=== PATIENT | female | born 1950 | race Caucasian/White ===

== ENCOUNTER 2020-06-07 17:22 | Outpatient (REF) | payer MEDICARE, OTHER, SELFPAY ==
[2020-06-07 17:55] LABS: Glucose Urine UA >=1000 MG/DL (NEG); Leukocyte Esterase Urine NEG (NEG); Nitrite Urine NEG (NEG); Urine Blood NEG (NEG); Urine Ketones NEG (NEG); Urine Protein NEG (NEG-TRACE)
[2020-06-07 18:00] LABS: Appearance Urine CLEAR; Color Urine YELLOW
[2020-06-07 18:16] LABS: Bacteria Urine TRACE /LPF; RBC Urine 0 /HPF (0); Squamous Epithelial Cell Urine 2+ /LPF; WBC Urine 0-2 /HPF (0-4)
== END 2020-06-07 17:23 | disposition home or self-care (01) ==
LOC: HO.LNP 17:22
PROVIDERS: Visit Provider Hospitalist
DX: N39.0 Urinary tract infection, site not specified (principal)
CPT/HCPCS: 81001

== ENCOUNTER → 2020-06-10 13:41 | Outpatient (BNVA) | payer MEDICARE, OTHER, SELFPAY | PROVIDERS: PCP Internal Medicine; Referring Provider Internal Medicine; Visit Provider Internal Medicine | DX: J44.9 Chronic obstructive pulmonary disease, unspecified (principal); G47.33 Obstructive sleep apnea (adult) (pediatric); Z79.899 Other long term (current) drug therapy; Z99.89 Dependence on other enabling machines and devices | CPT/HCPCS: 99213 ==

== ENCOUNTER 2020-06-17 08:12 | Outpatient (REF) | payer MEDICARE, OTHER, SELFPAY ==
[2020-06-17 12:19] LABS: INTERNATIONAL NORM RATIO 2.5 (0.9-1.1); Prothrombin Time 29.5 SEC (10.8-13.0)
== END 2020-06-17 08:13 | disposition home or self-care (01) ==
LOC: HO.LHD 08:12
PROVIDERS: Visit Provider Internal Medicine
DX: Z79.01 Long term (current) use of anticoagulants (principal)
CPT/HCPCS: 36415; 85610

== ENCOUNTER 2020-07-01 07:43 | Outpatient (REF) | payer MEDICARE, OTHER, SELFPAY ==
[2020-07-01 11:06] LABS: INTERNATIONAL NORM RATIO 2.8 (0.9-1.1); Prothrombin Time 33.7 SEC (10.8-13.0)
== END 2020-07-01 07:44 | disposition home or self-care (01) ==
LOC: HO.LHD 07:43
PROVIDERS: Visit Provider Internal Medicine
DX: Z79.01 Long term (current) use of anticoagulants (principal)
CPT/HCPCS: 36415; 85610

== ENCOUNTER → 2020-07-08 08:43 | Outpatient (BNVA) | payer MEDICARE, OTHER, SELFPAY | PROVIDERS: PCP Internal Medicine; Referring Provider Internal Medicine; Visit Provider Internal Medicine Endocrinology, Diabetes & Metabolism | DX: E11.65 Type 2 diabetes mellitus with hyperglycemia (principal); Z79.4 Long term (current) use of insulin; I10 Essential (primary) hypertension; E78.5 Hyperlipidemia, unspecified; E66.9 Obesity, unspecified | CPT/HCPCS: 99212 ==

== ENCOUNTER 2020-07-15 | Outpatient (REF) | payer MEDICARE, OTHER, SELFPAY ==
[2020-07-15 11:01] LABS: INTERNATIONAL NORM RATIO 2.3 (0.9-1.1); Prothrombin Time 27.5 SEC (10.8-13.0)
== END 2020-07-15 00:01 | disposition home or self-care (01) ==
LOC: HO.LHD
PROVIDERS: Visit Provider Internal Medicine
DX: Z51.81 Encounter for therapeutic drug level monitoring (principal); Z79.01 Long term (current) use of anticoagulants
CPT/HCPCS: 36415; 85610

== ENCOUNTER 2020-08-14 08:49 | Outpatient (REF) | payer MEDICARE, OTHER, SELFPAY ==
[2020-08-14 11:06] LABS: INTERNATIONAL NORM RATIO 1.7 (0.9-1.1); Prothrombin Time 19.9 SEC (10.8-13.0)
== END 2020-08-14 08:50 | disposition home or self-care (01) ==
LOC: HO.LHD 08:49
PROVIDERS: Visit Provider Internal Medicine
DX: Z79.01 Long term (current) use of anticoagulants (principal)
CPT/HCPCS: 36415; 85610

== ENCOUNTER 2020-10-28 09:02 | Outpatient (REF) | payer MEDICARE, SELFPAY ==
[2020-10-28 10:41] LABS: INTERNATIONAL NORM RATIO 1.1 (0.9-1.1); Prothrombin Time 12.7 SEC (10.8-13.0)
== END 2020-10-28 09:03 | disposition home or self-care (01) ==
LOC: HO.LHD 09:02
PROVIDERS: Visit Provider Internal Medicine
DX: Z79.01 Long term (current) use of anticoagulants (principal)
CPT/HCPCS: 36415; 85610

== ENCOUNTER 2020-11-05 05:53 | Outpatient (REF) | payer MEDICARE, MEDICAID, SELFPAY ==
[2020-11-05 11:21] LABS: Prothrombin Time 11.8 SEC (10.8-13.0)
== END 2020-11-05 05:54 | disposition home or self-care (01) ==
LOC: HO.LHD 05:53
PROVIDERS: Visit Provider Internal Medicine
DX: Z86.711 Personal history of pulmonary embolism (principal); Z51.81 Encounter for therapeutic drug level monitoring; Z79.01 Long term (current) use of anticoagulants
CPT/HCPCS: 36415; 85610

== ENCOUNTER 2020-11-08 06:27 | Outpatient (REF) | payer MEDICARE, SELFPAY ==
[2020-11-08 12:58] LABS: INTERNATIONAL NORM RATIO 1.4 (0.9-1.1); Prothrombin Time 16.3 SEC (10.8-13.0)
== END 2020-11-08 06:28 | disposition home or self-care (01) ==
LOC: HO.LHD 06:27
PROVIDERS: Visit Provider Internal Medicine
DX: Z79.01 Long term (current) use of anticoagulants (principal)
CPT/HCPCS: 36415; 85610

== ENCOUNTER 2020-11-15 07:54 | Outpatient (REF) | payer MEDICARE, OTHER, SELFPAY ==
[2020-11-15 10:57] LABS: INTERNATIONAL NORM RATIO 2.7 (0.9-1.1); Prothrombin Time 32.9 SEC (10.8-13.0)
== END 2020-11-15 07:55 | disposition home or self-care (01) ==
LOC: HO.LHD 07:54
PROVIDERS: Visit Provider Internal Medicine
DX: Z79.01 Long term (current) use of anticoagulants (principal)
CPT/HCPCS: 36415; 85610

== ENCOUNTER 2020-11-26 11:40 | Emergency (ER) | payer BC, MEDICAID, SELFPAY ==
--- NOTE | ~2020-11-26 | CT_ITS ---
EXAMINATION: CT ABDOMEN AND PELVIS WITH CONTRAST CLINICAL INFORMATION: Right-sided on abdominal pain. COMPARISON: CT abdomen and pelvis with contrast 12/13/2019 TECHNIQUE: Multidetector volumetric images were obtained from the superior aspect of the liver through the pubic symphysis following administration 85 mL of Omnipaque 350 intravenous contrast. Sagittal and coronal reformatted images were obtained on the technologist's workstation. Oral contrast: No This CT examination was performed using dose optimization techniques as appropriate, variously including the following: *Automated exposure control *Adjustment of mA and/or kV according to patient size (this includes techniques or standardized protocols for targeted exams where dose is matched to indication/reason for exam; i.e. extremities or head) *Use of iterative reconstruction technique DLP: 862 mGy-cm FINDINGS: LUNG BASES: No airspace consolidation or effusion. LIVER, GALLBLADDER, AND BILIARY TREE: Liver is normal in size and smooth in contour and uniform in attenuation. There is no intrahepatic ductal dilatation. Small hypodensity posterior left lobe adjacent to christina hepatis noted on prior study not demonstrated on current exam. There is a punctate probable cyst posterior right lobe series 3 image 24, stable. Prior cholecystectomy. Common duct stable at 1.1 cm. No common duct calculus. PANCREAS: Pancreas is stable in size, contour, and attenuation. Minor decreased attenuation anterior head and neck unchanged. No peripancreatic inflammatory changes. No ductal distention. No retroperitoneal effusion. SPLEEN: Unremarkable. ADRENAL GLANDS: Unremarkable. KIDNEYS AND URETERS: The kidneys enhance symmetrically and show no hydronephrosis, hydroureter, or perinephric stranding. No urinary tract calculi. Long axis right kidney is horizontal, similar to prior exam. BLADDER: Unremarkable. GASTROINTESTINAL TRACT: No bowel obstruction or focal inflammatory changes in the bowel or mesentery. The appendix is normal. There are diverticula splenic flexure and left colon without diverticulitis. No ascites or fluid collection. ABDOMINAL WALL: No significant hernia is appreciated. LYMPH NODES: No lymphadenopathy. Small right pericardial node again seen approximately 0.5 cm. VASCULAR: Unremarkable. PELVIC VISCERA: Unremarkable. OSSEOUS STRUCTURES: No acute bony abnormality. CT/CT abdomen pelvis w con IMPRESSION: 1. Prior cholecystectomy. No ductal dilatation. No peripancreatic inflammatory changes. 2. No hydronephrosis, calculi, or perinephric stranding. 3. No bowel obstruction or focal inflammatory changes. Normal appendix.
[2020-11-26 11:45] VITALS: BP 154/80; PULSE 99; RESP 20; TEMP 37.1; O2SAT 98; BMI 37.8
--- NOTE | 2020-11-26 12:47 | ECG_ITS ---
Test Reason : ABDOMINAL PAIN Blood Pressure : / mmHG Vent. Rate : 090 BPM Atrial Rate : 090 BPM P-R Int : 194 ms QRS Dur : 076 ms QT Int : 382 ms P-R-T Axes : 046 040 048 degrees QTc Int : 467 ms Normal sinus rhythm Possible Left atrial enlargement Nonspecific T wave abnormality Abnormal ECG When compared with ECG of 16-MAY-2020 20:01, No significant change was found Referred By: Sheri Rose Electronically Signed By:SCOTTIE MONROY
--- NOTE | 2020-11-26 12:52 | ED.ABDPAIN ---
HPI - Abdominal Pain General Chief Complaint: Abdominal Pain Stated Complaint: abd pain Time Seen by Provider: 11/26/20 12:40 Source: patient Mode of arrival: ambulatory Limitations: no limitations History of Present Illness HPI narrative: 70 yo female with past medical history of pulmonary embolism on Coumadin, obesity, hypertension, high cholesterol, coronary disease, insulin-dependent diabetes, obstructive sleep apnea, COPD here with complaints of right-sided abdominal pain x2 weeks worsened last 24 hours. Worsened with eating. No nausea or vomiting. She does have diarrhea which she tells me is chronic. Non-bloody or dark in appearance. No fevers or chills. She has frequent urination which she tells me is chronic and is not changed. Patient tells me that she has chronic shortness of breath and cough secondary to COPD and she does not feel like her symptoms are worsened today. No chest pain. Related Data Home Medications Medication Instructions Recorded Confirmed pantoprazole 40 mg tablet,delayed mg PO 06/01/20 07/08/20 release warfarin 5 mg tablet 5 mg PO DAILY 06/01/20 07/08/20 Previous Rx's Medication Instructions Recorded amoxicillin 875 mg tablet 875 mg PO BID #14 tab 06/07/20 citalopram 40 mg tablet 40 mg PO DAILY #90 tab 06/08/20 pen needle, diabetic 32 gauge x 5 ea MISCELLANEOUS DAILY #200 ea 06/10/20 amitriptyline 10 mg tablet 10 mg PO BEDTIME #90 tab 07/25/20 cholecalciferol (vitamin D3) 50 50 mcg PO DAILY #30 cap 07/25/20 mcg (2,000 unit) capsule insulin lispro 200 unit/mL (3 mL) 24 unit SUBCUT TID 90 Days #45 ml 08/06/20 subcutaneous pen atorvastatin 40 mg tablet 40 mg PO BEDTIME 90 Days #90 tab 08/15/20 buspirone 5 mg tablet 5 mg PO DAILY #30 tab 09/13/20 diltiazem HCl 240 mg 240 mg PO DAILY #90 cap 09/13/20 capsule,extended release 24 hr insulin glargine 100 unit/mL (3 40 unit SUBCUT DAILY #30 ml 09/13/20 mL) subcutaneous pen pantoprazole 40 mg tablet,delayed 40 mg PO BID #180 tab 09/13/20 release warfarin 2 mg tablet 4 mg PO DAILY #60 tab 09/13/20 flash glucose sensor #2 ea 11/13/20 dicyclomine 10 mg PO QID #30 cap 11/26/20 Allergies Allergy/AdvReac Type Severity Reaction Status Date / Time Latex, Natural Rubber Allergy Severe blisters Verified 06/10/20 13:52 Sulfa (Sulfonamide Allergy Mild ITCHING, Verified 11/26/20 11:48 Antibiotics) rash [SULFA (SULFONAMIDE ANTIBIOTICS)] latex [LATEX] Allergy Unknown UNKNOWN Verified 11/26/20 11:48 nystatin Allergy Unknown rash Verified 03/22/20 00:00 isosorbide [From Imdur] AdvReac Unknown HEADACHES, Verified 11/26/20 11:48 headache tizanidine AdvReac Unknown weakness, Verified 03/22/20 00:00 Hellucination Review of Systems Review of Systems Yes all other systems are reviewed and are negative Constitutional: Reports no additional constitutional complaints, Denies body ache(s), Denies chills, Denies fever(s), Denies headache(s) and Denies weakness Eyes: Reports no additional eye complaints and Denies change in vision Reports system reviewed and no additional complaints, except as documented, Denies dizziness, Denies headache(s), Denies nasal congestion, Denies nasal discharge and Denies neck pain Cardiovascular: Reports no additional cardiovascular complaints, Denies chest pain, Denies leg edema and Reports dyspnea (Chronic) Respiratory: Reports no additional respiratory complaints, Reports cough (Chronic) and Reports dyspnea (Chronic) Gastrointestinal: Reports no additional gastrointestinal complaints, Reports abdominal pain, Reports diarrhea, Denies nausea and Denies vomiting Genitourinary: Reports no additional female genitourinary complaints and Denies urinary incontinence Musculoskeletal: Reports no additional musculoskeletal complaints, Denies back pain, Denies arthralgias, Denies joint swelling, Denies neck pain, Denies numbness and Denies tingling Skin/Breast: Reports system reviewed and no additional complaints, except as docu and Denies rash Reports system reviewed and no additional complaints, except as documented, Denies Abnormal speech present, Denies dizziness, Denies headache(s), Denies numbness, Denies tingling and Denies weakness Physical Exam Vital Signs: Vital Signs: Last Vital Signs Temp 99.6 F 11/26/20 16:00 Pulse 113 H 11/26/20 16:00 Resp 18 11/26/20 16:13 BP 120/46 L 11/26/20 16:00 Pulse Ox 100 11/26/20 16:00 Body Mass Index 37.8 Const: General: cooperative, healthy appearing, comfortable and no acute distress Orientation/consciousness: patient oriented x3 Limitations: no limitations HENMT: Head: Yes normal to inspection Ears: hearing grossly normal bilaterally General nose exam: Normal external nose present Face and sinus: Yes normal facial exam Mouth: Normal oral and palatal mucosa present Throat: Yes posterior oropharynx normal Eyes: General: appearance normal, both eyes and all related structures Pupils: Equal, round and reactive pupils present Neck: Neck: Yes normal visual inspection Chest: Chest palpation & inspection: normal inspection of the chest Resp: Other: Speaking short phrases Diminished bases, mild exp wheezing Cardio: Rate: regular rate Rhythm: regular rhythm Peripheral pulses: Peripheral pulses 2+ throughout GI: Inspection: Yes normal to inspection Palpation (GI): Soft to palpation and Tenderness to palpation present (GI) (Right upper and right lower quadrant with guarding but no rebound) Auscultation: normal bowel sounds Back/Spine/Pelvis: Thoracic/Lumbar Spine: thoracic and lumbar spine normal to inspection Skin: General skin exam: no rashes or lesions noted Neuro: General: patient oriented x3, no focal motor deficits and normal sensation to monofilament Cranial nerves: Yes Equal, round and reactive pupils present Cognition (Neuro): normal cognition Speech: No Abnormal speech present Gait exam (Neuro): Normal gait present Motor exam (neuro): 5/5 motor strength present throughout Extrem: General: Yes normal to inspection Course Course Course Narrative: 70-year-old female here with abdominal pain acute on chronic for the last 24 hours with diarrhea. On exam has tenderness in the right upper right lower quadrant with no rebound but does have some guarding. Hemodynamically stable. Mild shortness of breath patient also has baseline secondary to COPD and is not worsened from baseline. Need labs, UA, CT A/P. 1700-labs, urine, CT unremarkable. Patient tells me that she has pain which feels like a squeezing and cramping pain which is intermittent and is normally associated with moving her bowels. She has had diarrhea over the last few weeks 2-5 episodes per day which is NB, non dark. No recent antibiotics or travel or admission or any other C diff risk factors. Patient unable to provide stool sample here in the emergency department. Will trial Bentyl to see if this improves symptoms with discharged to follow-up with primary care. 1815-Mild improvement in symptoms (does still have some abdominal cramping described as squeezing) but over abdomen is soft. tolerating PO at the bedside. ?IBS. D/t change in bowel habits will refer to GI for colonoscopy. Reviewed patient with Dr Savage who concurs with plan of care. Reviewed worrisome signs and symptoms and when to return to the emergency department. Comfortable discharge home. MDM - Abdominal Pain MDM Narrative Medical decision making narrative: Cholecystitis, cholelithiasis, acute appendicitis, gastritis, gerd Medical Records Attestation: I reviewed the patient's medical records. Lab Data Attestation: I reviewed the patient's lab results. Result diagrams: 11/26/20 13:22 11/26/20 13:22 Labs: Lab Results 11/26/20 11/26/20 11/26/20 Range/Units 13:22 13:22 13:22 WBC 10.3 (4.8-10.8) X10*3/uL RBC 5.03 (4.20-5.50) X10*6/uL Hgb 12.4 (12.0-16.0) g/dl Hct 40.6 (37-47) % MCV 80.7 (80-98) fL MCH 24.7 L (27.0-33.0) pg MCHC 30.5 L (31.0-35.0) g/dl RDW 15.7 (11.0-16.0) % Plt Count 316 (160-400) X10*3/uL MPV 9.6 (9.4-12.3) fL Immature Gran % (Auto) 0.4 (0.0-0.4) % Neut % (Auto) 67.6 (45-73) % Lymph % (Auto) 21.2 (20-40) % [place] % (Auto) 5.9 (2-11) % Eos % (Auto) 4.1 H (0-4) % Baso % (Auto) 0.8 (0-2) % Lymph # (Auto) 2.2 (1.2-4.9) X10*3/uL [place] # (Auto) 0.6 (0.1-1.2) X10*3/uL Eos # (Auto) 0.4 (0.0-0.4) X10*3/uL Baso # (Auto) 0.1 (0.0-0.2) X10*3/uL Abs Immat Gran (auto) 0.04 H (0.00-0.03) X10*3/uL Absolute Neuts (auto) 6.9 (2.0-8.3) X10*3/uL Absolute Nucleated RBC 0.000 (0.0-0.012) X10*3/uL Nucleated RBC % (auto) 0.0 (0.0-0.2) /100WBC Hold Blue Top SEE NOTE Sodium 140 (135-145) mmol/L Potassium 4.3 (3.3-5.1) mmol/L Chloride 100 (96-108) mmol/L Carbon Dioxide 26 (22-29) mmol/L Anion Gap 18 (12-20) BUN 16 (9-16) mg/dL Creatinine 0.90 (0.5-1.4) mg/dL Estim Creat Clear Calc 64.9 Estimated GFR > 60 Random Glucose 195 H (60-115) mg/dL Calcium 8.7 (8.4-10.2) mg/dL Magnesium 1.9 (1.6-2.6) mg/dL Total Bilirubin 0.3 (0.0-1.0) mg/dL Direct Bilirubin < 0.2 (0.0-0.5) mg/dL AST 18 (5-31) U/L ALT 19 (0-31) U/L Alkaline Phosphatase 123 H (39-117) U/L Total Protein 7.0 (6.5-8.0) g/dL Albumin 4.0 (3.5-5.0) g/dL Urine Color Urine Appearance Urine pH (5.0-8.0) Ur Specific [place] (1.005-1.025) Urine Protein (NEG-TRACE) MG/DL Urine Glucose (UA) (NEG) MG/DL Urine Ketones (NEG) MG/DL Urine Blood (NEG) Urine Nitrite (NEG) Ur Leukocyte Esterase (NEG) Urine RBC (0) /HPF Urine WBC (0-4) /HPF Ur Squamous Epith Cells /LPF Urine Bacteria /LPF Urine Mucus /LPF 03/23/21 Range/Units 13:22 WBC (4.8-10.8) X10*3/uL RBC (4.20-5.50) X10*6/uL Hgb (12.0-16.0) g/dl Hct (37-47) % MCV (80-98) fL MCH (27.0-33.0) pg MCHC (31.0-35.0) g/dl RDW (11.0-16.0) % Plt Count (160-400) X10*3/uL MPV (9.4-12.3) fL Immature Gran % (Auto) (0.0-0.4) % Neut % (Auto) (45-73) % Lymph % (Auto) (20-40) % [place] % (Auto) (2-11) % Eos % (Auto) (0-4) % Baso % (Auto) (0-2) % Lymph # (Auto) (1.2-4.9) X10*3/uL [place] # (Auto) (0.1-1.2) X10*3/uL Eos # (Auto) (0.0-0.4) X10*3/uL Baso # (Auto) (0.0-0.2) X10*3/uL Abs Immat Gran (auto) (0.00-0.03) X10*3/uL Absolute Neuts (auto) (2.0-8.3) X10*3/uL Absolute Nucleated RBC (0.0-0.012) X10*3/uL Nucleated RBC % (auto) (0.0-0.2) /100WBC Hold Blue Top Sodium (135-145) mmol/L Potassium (3.3-5.1) mmol/L Chloride (96-108) mmol/L Carbon Dioxide (22-29) mmol/L Anion Gap (12-20) BUN (9-16) mg/dL Creatinine (0.5-1.4) mg/dL Estim Creat Clear Calc Estimated GFR Random Glucose (60-115) mg/dL Calcium (8.4-10.2) mg/dL Magnesium (1.6-2.6) mg/dL Total Bilirubin (0.0-1.0) mg/dL Direct Bilirubin (0.0-0.5) mg/dL AST (5-31) U/L ALT (0-31) U/L Alkaline Phosphatase (39-117) U/L Total Protein (6.5-8.0) g/dL Albumin (3.5-5.0) g/dL Urine Color YELLOW Urine Appearance CLEAR Urine pH 5.5 (5.0-8.0) Ur Specific [place] >= 1.030 H (1.005-1.025) Urine Protein 1+ H (NEG-TRACE) MG/DL Urine Glucose (UA) NEG (NEG) MG/DL Urine Ketones NEG (NEG) MG/DL Urine Blood TRACE (NEG) Urine Nitrite NEG (NEG) Ur Leukocyte Esterase NEG (NEG) Urine RBC 0-2 (0) /HPF Urine WBC 0 (0-4) /HPF Ur Squamous Epith Cells 1+ /LPF Urine Bacteria NONE /LPF Urine Mucus 1+ /LPF Imaging Data CT scan - abdomen: Attestation: I personally reviewed and interpreted this imaging study as follows: Radiologist's impression: IMPRESSION: 1. Prior cholecystectomy. No ductal dilatation. No peripancreatic inflammatory changes. 2. No hydronephrosis, calculi, or perinephric stranding. 3. No bowel obstruction or focal inflammatory changes. Normal appendix. Discharge Plan Discharge Clinical Impression: Abdominal pain Qualifiers: Abdominal location: unspecified location Qualified Code(s): R10.9 - Unspecified abdominal pain Patient Disposition: Home, Self-Care Instructions: Abdominal Pain (ED) Additional Instructions: Your lab work, urine testing and CT are all very re-assuring You have been provided with a lab slip to have stool studies done We will refer you to GI for a colonoscopy and/or additional testing. Return for severe abdominal pain, 2 or more vomiting episodes, fever >100.4 Prescriptions: New dicyclomine 10 mg capsule 10 mg PO QID Qty: 30 RF: 0 No Action citalopram 40 mg tablet 40 mg PO DAILY Qty: 90 RF: 3 pen needle, diabetic [Pentips] 32 gauge x 5/32 needle 5 ea miscellaneous DAILY Qty: 200 RF: 11 cholecalciferol (vitamin D3) 50 mcg (2,000 unit) capsule 50 mcg PO DAILY Qty: 30 RF: 5 amitriptyline 10 mg tablet 10 mg PO BEDTIME Qty: 90 RF: 1 insulin lispro 200 unit/mL (3 mL) insulin pen 24 unit subcut TID 90 Days Qty: 45 RF: 1 atorvastatin 40 mg tablet 40 mg PO BEDTIME 90 Days Qty: 90 RF: 1 insulin glargine [Lantus Solostar U-100 Insulin] 100 unit/mL (3 mL) insulin pen 40 unit subcut DAILY Qty: 30 RF: 3 warfarin 2 mg tablet 4 mg PO DAILY Qty: 60 RF: 8 buspirone 5 mg tablet 5 mg PO DAILY Qty: 30 RF: 0 diltiazem HCl 240 mg capsule,extended release 24hr 240 mg PO DAILY Qty: 90 RF: 0 pantoprazole 40 mg tablet,delayed release (DR/EC) 40 mg PO BID Qty: 180 RF: 0 (DME) FreeStyle Kelly 2 Sensor Kit See Rx Instructions .ROUTE .MEDSUPPLY Qty: 2 RF: 2 amoxicillin 875 mg tablet 875 mg PO BID Qty: 14 RF: 0 warfarin 5 mg tablet 5 mg PO DAILY RF: 0 pantoprazole 40 mg tablet,delayed release (DR/EC) PO RF: 0 Referrals: Bernadette Meredith MD [Physician] - 2 days [facility] Past Medical History Attestation statement: The following information was validated with the patient. 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 Social History Social History Smoking Status: Former smoker Tobacco Type: Cigarette Smoked in Last 30 Days: Yes Use of substances other than those prescribed or required for medical reasons: No Advance Directives: Yes Advance Directives Information Provided: Yes Advance Directives on File: No
[2020-11-26 13:29] LABS: MANUAL DIFF FLAG NO
[2020-11-26 13:35] LABS: Basophils Absolute Auto 0.1 X10*3/uL (0.0-0.2); Basophils Percent Auto 0.8 % (0-2); Eosinophils Absolute Auto 0.4 X10*3/uL (0.0-0.4); Eosinophils Percent Auto 4.1 % (0-4); Hematocrit 40.6 % (37-47); Hemoglobin 12.4 g/dl (12.0-16.0); Imm Gran Abs Auto 0.04 X10*3/uL (0.00-0.03); Imm Gran Pct Auto 0.4 % (0.0-0.4); Lymphocytes Absolute Auto 2.2 X10*3/uL (1.2-4.9); Lymphocytes Percent Auto 21.2 % (20-40); Mean Corpuscular HGB Conc 30.5 g/dl (31.0-35.0); Mean Corpuscular Hemoglobin 24.7 pg (27.0-33.0); Mean Corpuscular Volume 80.7 fL (80-98); Mean Platelet Volume 9.6 fL (9.4-12.3); Monocytes Absolute Auto 0.6 X10*3/uL (0.1-1.2); Monocytes Percent Auto 5.9 % (2-11); Neutrophils Absolute Auto 6.9 X10*3/uL (2.0-8.3); Neutrophils Percent Auto 67.6 % (45-73); Platelet Count 316 X10*3/uL (160-400); Red Blood Count 5.03 X10*6/uL (4.20-5.50); Red Cell Distribution Width 15.7 % (11.0-16.0); White Blood Count 10.3 X10*3/uL (4.8-10.8)
--- NOTE | 2020-11-26 13:36 | PC.NURSE ---
20 ga iv established L wrist pt has soft tender abd, reports apin bilat lower abd. abd is nondistended with no discoloration noted. pt rubbing abd with facial grimace. pt is nsr in l;ead 2 slight exp wheezes noted, in n distress.
[2020-11-26 13:48] LABS: Glucose Urine UA NEG (NEG); Leukocyte Esterase Urine NEG (NEG); Nitrite Urine NEG (NEG); PH 5.5 (5.0-8.0); Specific Gravity - Urine >= 1.030 (1.005-1.025); Urine Blood TRACE (NEG); Urine Ketones NEG (NEG); Urine Protein 1+ MG/DL (NEG-TRACE)
[2020-11-26 13:58] LABS: Appearance Urine CLEAR; Color Urine YELLOW
[2020-11-26 14:00] LABS: Alanine Aminotransferase 19 U/L (0-31); Alkaline Phosphatase 123 U/L (39-117); Anion Gap 18 (12-20); Aspartate Amino Transferase 18 U/L (5-31); Bilirubin Direct < 0.2 mg/dL (0.0-0.5); Bilirubin Total 0.3 mg/dL (0.0-1.0); Blood Urea Nitrogen 16 mg/dL (9-16); Calcium 8.7 mg/dL (8.4-10.2); Carbon Dioxide 26 mmol/L (22-29); Chloride 100 mmol/L (96-108); Creatinine Clr Calc Pharmacy 64.9; Estimated Glomerular Filt Rate > 60; Glucose Random 195 mg/dL (60-115); Magnesium 1.9 mg/dL (1.6-2.6); Potassium 4.3 mmol/L (3.3-5.1); Sodium 140 mmol/L (135-145)
[2020-11-26 14:06] LABS: RBC Urine 0-2 /HPF (0); Squamous Epithelial Cell Urine 1+ /LPF; WBC Urine 0 /HPF (0-4)
[2020-11-26 14:07] LABS: Mucus Urine 1+ /LPF
[2020-11-26 14:11] VITALS: BP 170/80; PULSE 88; RESP 16; O2SAT 93
[2020-11-26] MEDS: Morphine Sulfate 4 MG/ML CARTRIDGE IVPUSH ×2 (14:43)
[2020-11-26] MEDS: ondansetron HCL 4 MG/2 ML VIAL IVPUSH (14:44)
[2020-11-26 14:50] VITALS: PULSE 94
[2020-11-26] MEDS: Albuterol/Iprat 2.5/0.5MG 3 ML AMPUL.NEB INHALE (14:50)
[2020-11-26 16:00] VITALS: BP 120/46; PULSE 113; RESP 18; TEMP 37.6; O2SAT 100
[2020-11-26 16:13] VITALS: RESP 18
[2020-11-26] MEDS: HYDROmorphone HCl 0.5 MG/0.5 ML SYRINGE IVPUSH (16:13)
[2020-11-26] MEDS: Dicyclomine HCl 10 MG CAPSULE 20 MG PO (16:55)
== END 2020-11-26 19:06 | disposition home or self-care (01) ==
PROVIDERS: Nurse Practitioner Family; Emergency Provider Emergency Medicine Emergency Medical Services; PCP Internal Medicine
DX: R10.9 Unspecified abdominal pain (principal); E11.9 Type 2 diabetes mellitus without complications; F17.210 Nicotine dependence, cigarettes, uncomplicated; Z79.899 Other long term (current) drug therapy; Z71.6 Tobacco abuse counseling; Z79.01 Long term (current) use of anticoagulants; Z79.4 Long term (current) use of insulin
CPT/HCPCS: 36415; 74177; 80048; 80076; 81001; 83735; 85025; 93005; 94640; 96361; 96374; 96375; 99284; J1170; J2270; J2405; Q9967

== ENCOUNTER 2020-11-29 11:51 | Outpatient (REF) | payer BC, MEDICAID, SELFPAY ==
[2020-11-29 15:21] LABS: CDIFF Ag Negative (Negative); CDiff Toxin Negative (Negative)
[2020-11-29 15:22] LABS: CDIFF Internal ctrl Dots and bkg OK (V)
== END 2020-11-29 11:52 | disposition home or self-care (01) ==
LOC: HO.HMGCLNP 11:51
PROVIDERS: Visit Provider Nurse Practitioner Family
DX: R19.5 Other fecal abnormalities (principal)
CPT/HCPCS: 87045; 87046; 87324; 87449

== ENCOUNTER 2020-12-02 01:06 | Outpatient (REF) | payer BC, OTHER, SELFPAY | END 2020-12-02 01:07 | disposition home or self-care (01) | LOC: HO.LHD 01:06 | PROVIDERS: Visit Provider Internal Medicine | DX: Z13.89 Encounter for screening for other disorder (principal) ==

== ENCOUNTER → 2020-12-09 13:28 | Outpatient (BNVA) | payer BC, OTHER, SELFPAY | PROVIDERS: Visit Provider Internal Medicine ==

== ENCOUNTER 2020-12-23 08:38 | Outpatient (REF) | payer MEDICARE, MEDICAID, SELFPAY | END 2020-12-23 08:39 | disposition home or self-care (01) | LOC: HO.LHD 08:38 | PROVIDERS: Visit Provider Internal Medicine | DX: Z13.89 Encounter for screening for other disorder (principal) ==

== ENCOUNTER 2021-01-09 16:32 | Emergency (ER) | payer MEDICARE, MEDICAID, SELFPAY ==
--- NOTE | 2021-01-09 | ECG_ITS ---
Test Reason : CP Blood Pressure : / mmHG Vent. Rate : 087 BPM Atrial Rate : 087 BPM P-R Int : 184 ms QRS Dur : 084 ms QT Int : 438 ms P-R-T Axes : 047 040 064 degrees QTc Int : 527 ms Normal sinus rhythm Possible Left atrial enlargement Nonspecific T wave abnormality Prolonged QT Abnormal ECG When compared with ECG of 09-JAN-2021 17:38, Premature supraventricular complexes are now Present Nonspecific T wave abnormality, worse in Anterior leads QT has lengthened Referred By: Candelario Savage Electronically Signed By:SCOTTIE MONROY
[2021-01-09 16:44] VITALS: BP 144/65; PULSE 94; RESP 16; TEMP 36.8; O2SAT 98
[2021-01-09 16:55] LABS: MANUAL DIFF FLAG NO
[2021-01-09 16:56] LABS: Basophils Absolute Auto 0.1 X10*3/uL (0.0-0.2); Basophils Percent Auto 0.8 % (0-2); Eosinophils Absolute Auto 0.2 X10*3/uL (0.0-0.4); Hematocrit 40.2 % (37-47); Hemoglobin 12.9 g/dl (12.0-16.0); Imm Gran Abs Auto 0.05 X10*3/uL (0.00-0.03); Imm Gran Pct Auto 0.4 % (0.0-0.4); Lymphocytes Absolute Auto 2.6 X10*3/uL (1.2-4.9); Lymphocytes Percent Auto 22.7 % (20-40); Mean Corpuscular HGB Conc 32.1 g/dl (31.0-35.0); Mean Corpuscular Hemoglobin 25.9 pg (27.0-33.0); Mean Corpuscular Volume 80.7 fL (80-98); Mean Platelet Volume 10.1 fL (9.4-12.3); Monocytes Absolute Auto 0.8 X10*3/uL (0.1-1.2); Monocytes Percent Auto 7.3 % (2-11); Neutrophils Absolute Auto 7.6 X10*3/uL (2.0-8.3); Neutrophils Percent Auto 66.8 % (45-73); Platelet Count 290 X10*3/uL (160-400); Red Blood Count 4.98 X10*6/uL (4.20-5.50); Red Cell Distribution Width 15.2 % (11.0-16.0); White Blood Count 11.4 X10*3/uL (4.8-10.8)
[2021-01-09 17:17] LABS: Anion Gap 18 (12-20); Blood Urea Nitrogen 28 mg/dL (9-16); Calcium 8.8 mg/dL (8.4-10.2); Carbon Dioxide 28 mmol/L (22-29); Chloride 89 mmol/L (96-108); Creatinine Clr Calc Pharmacy 6.3; Estimated Glomerular Filt Rate 40; Glucose Random 552 mg/dL (60-115); Potassium 3.7 mmol/L (3.3-5.1); Sodium 131 mmol/L (135-145)
--- NOTE | 2021-01-09 17:27 | ECG_ITS ---
Test Reason : CHEST PRESSURE Blood Pressure : / mmHG Vent. Rate : 090 BPM Atrial Rate : 090 BPM P-R Int : 180 ms QRS Dur : 084 ms QT Int : 368 ms P-R-T Axes : 046 040 054 degrees QTc Int : 450 ms Normal sinus rhythm Possible Left atrial enlargement Nonspecific T wave abnormality Abnormal ECG When compared with ECG of 26-NOV-2020 13:23, No significant change was found Referred By: Candelario Savage Electronically Signed By:SCTOTIE MONROY
--- NOTE | 2021-01-09 17:32 | ED_ITS ---
HPI - General Adult General Chief complaint: General Medical Stated complaint: Hyperglycemia Time Seen by Provider: 01/09/21 17:32 Source: patient Mode of arrival: ambulatory Limitations: no limitations History of Present Illness HPI narrative: Patient noticed that her blood sugar is high for 1 month in the range of 300, no fever or chills no urinary symptoms ast few weeks feels thirsty urinating a lot feeling weak. Denies any change in the dosage of insulin or other medications Patient is fairly compliant with medication and food feels dizzy sometimes when she walks no chest pain or shortness of breath Related Data Home Medications Medication Instructions Recorded Confirmed warfarin 5 mg tablet 5 mg PO DAILY 06/01/20 12/31/20 albuterol sulfate 90 mcg/actuation 0 mcg INHALATION 12/09/20 12/31/20 aerosol inhaler budesonide-formoterol HFA 160 2 puff PO BID 12/09/20 12/31/20 mcg-4.5 mcg/actuation aerosol inhaler guaifenesin 100 mg/5 mL oral liquid 100 mg PO Q4H PRN 12/09/20 12/31/20 metoprolol tartrate 50 mg tablet 50 mg PO BID 12/25/20 12/31/20 acetaminophen PO DAILY PRN 12/31/20 12/31/20 Previous Rx's Medication Instructions Recorded citalopram 40 mg tablet 40 mg PO DAILY #90 tab 06/08/20 pen needle, diabetic 32 gauge x 5 ea MISCELLANEOUS DAILY #200 ea 06/10/20 amitriptyline 10 mg tablet 10 mg PO BEDTIME #90 tab 07/25/20 cholecalciferol (vitamin D3) 50 50 mcg PO DAILY #30 cap 07/25/20 mcg (2,000 unit) capsule insulin lispro 200 unit/mL (3 mL) 24 unit SUBCUT TID 90 Days #45 ml 08/06/20 subcutaneous pen atorvastatin 40 mg tablet 40 mg PO BEDTIME 90 Days #90 tab 08/15/20 diltiazem HCl 240 mg 240 mg PO DAILY #90 cap 09/13/20 capsule,extended release 24 hr insulin glargine 100 unit/mL (3 40 unit SUBCUT DAILY #30 ml 09/13/20 mL) subcutaneous pen pantoprazole 40 mg tablet,delayed 40 mg PO BID #180 tab 09/13/20 release warfarin 2 mg tablet 4 mg PO DAILY #60 tab 09/13/20 flash glucose sensor #2 ea 11/13/20 dicyclomine 10 mg PO QID #30 cap 11/26/20 buspirone 5 mg tablet 5 mg PO DAILY #30 tab 12/16/20 chlorthalidone 25 mg tablet 25 mg PO .q am 90 Days #90 tab 12/31/20 Allergies Allergy/AdvReac Type Severity Reaction Status Date / Time Latex, Natural Rubber Allergy Severe blisters Verified 12/31/20 14:12 Sulfa (Sulfonamide Allergy Mild ITCHING, Verified 12/31/20 14:12 Antibiotics) rash [SULFA (SULFONAMIDE ANTIBIOTICS)] nystatin Allergy Unknown rash Verified 12/31/20 14:12 isosorbide [From Imdur] AdvReac Unknown HEADACHES, Verified 12/31/20 14:12 headache tizanidine AdvReac Unknown weakness, Verified 12/31/20 14:12 Hellucination Review of Systems Review of Systems: Constitutional : No Weight loss, No Fever, No Chills ENT/Mouth : No sore throat, No Rhinorrhea Eyes: No Eye Pain, No Swelling Cardiovascular : No Chest Pain, no palpitations Respiratory : No Cough, No Sputum, no shortness of breath Gastrointestinal : no Nausea, No Vomiting, No Diarrhea, No abdominal Pain, no black stools Genitourinary : No Dysuria, No Urinary Frequency Musculoskeletal : No joint pain, No Myalgias, No Joint Swelling Skin : No Skin Lesions, No rash Neuro : No Weakness, No Numbness, +_ Dizziness, No Headache Psych : No Anxiety/Panic, No Depression Heme/Lymph: No Bruising, No Lymphadenopathy Endocrine : No Polyuria, No Polydipsia All other systems reviewed and are negative [facility] Past Medical History Medical History CAD (coronary artery disease) COPD (chronic obstructive pulmonary disease) Diabetes type 2, uncontrolled Dyslipidemia 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 Social History Social History Smoking Status: Former smoker Tobacco Type: Cigarette Use of substances other than those prescribed or required for medical reasons: No Advance Directives: Yes Advance Directives Information Provided: No Advance Directives on File: No Physical Exam Vital Signs: Vital Signs: Last Vital Signs Temp 98.2 F 01/09/21 16:44 Pulse 88 01/09/21 20:15 Resp 15 01/09/21 20:15 BP 161/55 H 01/09/21 20:15 Pulse Ox 100 01/09/21 20:15 Body Mass Index 3.9 Appearance: Alert. Oriented X3. No acute distress. Eyes: PERRLA, No Nystagmus ENT: Pharynx normal. Oral Mucosa moist Neck: Normal inspection. Neck supple. CVS: Normal heart rate and rhythm. Pulses normal. Respiratory: No respiratory distress. Equal air entry bilateral, no wheezing/rales/rhonchi Abdomen: Soft and nontender. Bowel sounds are present, no mass palpable, no CVA tenderness Skin: Skin warm and dry. Normal skin color. Normal skin turgor. Extremities: No lower extremity edema. No calf tenderness Neuro: Oriented X 3. No motor deficit. No sensory deficit.No cerebellar signs , cranial nerves II-XII intact Medical Decision Making MDM Narrative Medical decision making narrative: Patient has hyperglycemia type 2 diabetes will increase the dose of Lantus insulin to 50 units and advisedcontinue Humalog sliding scale before meals patient received 2 L of IV fluids and repeat blood sugar was 198. Lab Data Lab results reviewed: Yes I reviewed the patient's lab results. Result diagrams: 01/09/21 16:51 01/09/21 16:51 Labs: Lab Results 01/09/21 01/09/21 01/09/21 Range/Units 16:46 16:51 16:51 WBC 11.4 H (4.8-10.8) X10*3/uL RBC 4.98 (4.20-5.50) X10*6/uL Hgb 12.9 (12.0-16.0) g/dl Hct 40.2 (37-47) % MCV 80.7 (80-98) fL MCH 25.9 L (27.0-33.0) pg MCHC 32.1 (31.0-35.0) g/dl RDW 15.2 (11.0-16.0) % Plt Count 290 (160-400) X10*3/uL MPV 10.1 (9.4-12.3) fL Immature Gran % (Auto) 0.4 (0.0-0.4) % Neut % (Auto) 66.8 (45-73) % Lymph % (Auto) 22.7 (20-40) % [place] % (Auto) 7.3 (2-11) % Eos % (Auto) 2.0 (0-4) % Baso % (Auto) 0.8 (0-2) % Lymph # (Auto) 2.6 (1.2-4.9) X10*3/uL [place] # (Auto) 0.8 (0.1-1.2) X10*3/uL Eos # (Auto) 0.2 (0.0-0.4) X10*3/uL Baso # (Auto) 0.1 (0.0-0.2) X10*3/uL Abs Immat Gran (auto) 0.05 H (0.00-0.03) X10*3/uL Absolute Neuts (auto) 7.6 (2.0-8.3) X10*3/uL Absolute Nucleated RBC 0.000 (0.0-0.012) X10*3/uL Nucleated RBC % (auto) 0.0 (0.0-0.2) /100WBC Sodium 131 L (135-145) mmol/L Potassium 3.7 (3.3-5.1) mmol/L Chloride 89 L (96-108) mmol/L Carbon Dioxide 28 (22-29) mmol/L Anion Gap 18 (12-20) BUN 28 H D (9-16) mg/dL Creatinine 1.32 (0.5-1.4) mg/dL Estim Creat Clear Calc 6.3 Estimated GFR 40 POC Glucose 506 H* (60-115) mg/dL Random Glucose 552 H* (60-115) mg/dL Calcium 8.8 (8.4-10.2) mg/dL Total Bilirubin 0.6 (0.0-1.0) mg/dL Direct Bilirubin 0.2 (0.0-0.5) mg/dL AST 12 (5-31) U/L ALT 17 (0-31) U/L Alkaline Phosphatase 141 H (39-117) U/L Troponin I High Sens (<3.5-17.0) ng/L Total Protein 6.9 (6.5-8.0) g/dL Albumin 3.9 (3.5-5.0) g/dL Lipase 22 (8-78) U/L Urine Color Urine Appearance Urine pH (5.0-8.0) Ur Specific [place] (1.005-1.025) Urine Protein (NEG-TRACE) MG/DL Urine Glucose (UA) (NEG) MG/DL Urine Ketones (NEG) MG/DL Urine Blood (NEG) Urine Nitrite (NEG) Ur Leukocyte Esterase (NEG) Urine RBC (0) /HPF Urine WBC (0-4) /HPF Ur Squamous Epith Cells /LPF Urine Bacteria /LPF 01/09/21 01/09/21 01/09/21 Range/Units 16:54 19:30 20:37 WBC (4.8-10.8) X10*3/uL RBC (4.20-5.50) X10*6/uL Hgb (12.0-16.0) g/dl Hct (37-47) % MCV (80-98) fL MCH (27.0-33.0) pg MCHC (31.0-35.0) g/dl RDW (11.0-16.0) % Plt Count (160-400) X10*3/uL MPV (9.4-12.3) fL Immature Gran % (Auto) (0.0-0.4) % Neut % (Auto) (45-73) % Lymph % (Auto) (20-40) % [place] % (Auto) (2-11) % Eos % (Auto) (0-4) % Baso % (Auto) (0-2) % Lymph # (Auto) (1.2-4.9) X10*3/uL [place] # (Auto) (0.1-1.2) X10*3/uL Eos # (Auto) (0.0-0.4) X10*3/uL Baso # (Auto) (0.0-0.2) X10*3/uL Abs Immat Gran (auto) (0.00-0.03) X10*3/uL Absolute Neuts (auto) (2.0-8.3) X10*3/uL Absolute Nucleated RBC (0.0-0.012) X10*3/uL Nucleated RBC % (auto) (0.0-0.2) /100WBC Sodium (135-145) mmol/L Potassium (3.3-5.1) mmol/L Chloride (96-108) mmol/L Carbon Dioxide (22-29) mmol/L Anion Gap (12-20) BUN (9-16) mg/dL Creatinine (0.5-1.4) mg/dL Estim Creat Clear Calc Estimated GFR POC Glucose 345 H (60-115) mg/dL Random Glucose (60-115) mg/dL Calcium (8.4-10.2) mg/dL Total Bilirubin (0.0-1.0) mg/dL Direct Bilirubin (0.0-0.5) mg/dL AST (5-31) U/L ALT (0-31) U/L Alkaline Phosphatase (39-117) U/L Troponin I High Sens 8.2 (<3.5-17.0) ng/L Total Protein (6.5-8.0) g/dL Albumin (3.5-5.0) g/dL Lipase (8-78) U/L Urine Color YELLOW Urine Appearance CLEAR Urine pH 5.5 (5.0-8.0) Ur Specific [place] 1.020 (1.005-1.025) Urine Protein NEG (NEG-TRACE) MG/DL Urine Glucose (UA) 500 H (NEG) MG/DL Urine Ketones NEG (NEG) MG/DL Urine Blood TRACE (NEG) Urine Nitrite NEG (NEG) Ur Leukocyte Esterase NEG (NEG) Urine RBC 1-4 (0) /HPF Urine WBC 0 (0-4) /HPF Ur Squamous Epith Cells 1+ /LPF Urine Bacteria NONE /LPF 01/09/21 Range/Units 21:43 WBC (4.8-10.8) X10*3/uL RBC (4.20-5.50) X10*6/uL Hgb (12.0-16.0) g/dl Hct (37-47) % MCV (80-98) fL MCH (27.0-33.0) pg MCHC (31.0-35.0) g/dl RDW (11.0-16.0) % Plt Count (160-400) X10*3/uL MPV (9.4-12.3) fL Immature Gran % (Auto) (0.0-0.4) % Neut % (Auto) (45-73) % Lymph % (Auto) (20-40) % [place] % (Auto) (2-11) % Eos % (Auto) (0-4) % Baso % (Auto) (0-2) % Lymph # (Auto) (1.2-4.9) X10*3/uL [place] # (Auto) (0.1-1.2) X10*3/uL Eos # (Auto) (0.0-0.4) X10*3/uL Baso # (Auto) (0.0-0.2) X10*3/uL Abs Immat Gran (auto) (0.00-0.03) X10*3/uL Absolute Neuts (auto) (2.0-8.3) X10*3/uL Absolute Nucleated RBC (0.0-0.012) X10*3/uL Nucleated RBC % (auto) (0.0-0.2) /100WBC Sodium (135-145) mmol/L Potassium (3.3-5.1) mmol/L Chloride (96-108) mmol/L Carbon Dioxide (22-29) mmol/L Anion Gap (12-20) BUN (9-16) mg/dL Creatinine (0.5-1.4) mg/dL Estim Creat Clear Calc Estimated GFR POC Glucose 198 H (60-115) mg/dL Random Glucose (60-115) mg/dL Calcium (8.4-10.2) mg/dL Total Bilirubin (0.0-1.0) mg/dL Direct Bilirubin (0.0-0.5) mg/dL AST (5-31) U/L ALT (0-31) U/L Alkaline Phosphatase (39-117) U/L Troponin I High Sens (<3.5-17.0) ng/L Total Protein (6.5-8.0) g/dL Albumin (3.5-5.0) g/dL Lipase (8-78) U/L Urine Color Urine Appearance Urine pH (5.0-8.0) Ur Specific [place] (1.005-1.025) Urine Protein (NEG-TRACE) MG/DL Urine Glucose (UA) (NEG) MG/DL Urine Ketones (NEG) MG/DL Urine Blood (NEG) Urine Nitrite (NEG) Ur Leukocyte Esterase (NEG) Urine RBC (0) /HPF Urine WBC (0-4) /HPF Ur Squamous Epith Cells /LPF Urine Bacteria /LPF Discharge Plan Discharge Clinical Impression: Hyperglycemia due to type 2 diabetes mellitus Qualifiers: 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 Qualified Code(s): E11.65 - Type 2 diabetes mellitus with hyperglycemia Patient Disposition: Home, Self-Care Instructions: Diabetic Hyperglycemia (ED) Additional Instructions: Drink plenty of fluids Take medication as prescribed increased dose of Lantus insulin to 50 units daily and continue sliding scale of Humalog Follow-up with your diabetic specialist Prescriptions: No Action citalopram 40 mg tablet 40 mg PO DAILY Qty: 90 RF: 3 pen needle, diabetic [Pentips] 32 gauge x 5/32 needle 5 ea miscellaneous DAILY Qty: 200 RF: 11 cholecalciferol (vitamin D3) 50 mcg (2,000 unit) capsule 50 mcg PO DAILY Qty: 30 RF: 5 amitriptyline 10 mg tablet 10 mg PO BEDTIME Qty: 90 RF: 1 insulin lispro 200 unit/mL (3 mL) insulin pen 24 unit subcut TID 90 Days Qty: 45 RF: 1 atorvastatin 40 mg tablet 40 mg PO BEDTIME 90 Days Qty: 90 RF: 1 insulin glargine [Lantus Solostar U-100 Insulin] 100 unit/mL (3 mL) insulin pen 40 unit subcut DAILY Qty: 30 RF: 3 warfarin 2 mg tablet 4 mg PO DAILY Qty: 60 RF: 8 diltiazem HCl 240 mg capsule,extended release 24hr 240 mg PO DAILY Qty: 90 RF: 0 pantoprazole 40 mg tablet,delayed release (DR/EC) 40 mg PO BID Qty: 180 RF: 0 (DME) FreeStyle Kelly 2 Sensor Kit See Rx Instructions .ROUTE .MEDSUPPLY Qty: 2 RF: 2 buspirone 5 mg tablet 5 mg PO DAILY Qty: 30 RF: 0 metoprolol tartrate 50 mg tablet 50 mg PO BID RF: 0 dicyclomine 10 mg capsule 10 mg PO QID Qty: 30 RF: 0 acetaminophen PO DAILY PRNRF: 0 chlorthalidone 25 mg tablet 25 mg PO .q am 90 Days Qty: 90 RF: 0 warfarin 5 mg tablet 5 mg PO DAILY RF: 0 budesonide-formoterol 160-4.5 mcg/actuation HFA aerosol inhaler 2 puff PO BID RF: 0 albuterol sulfate 90 mcg/actuation HFA aerosol inhaler 0 mcg inhalation RF: 0 guaifenesin 100 mg/5 mL liquid 100 mg PO Q4H PRN (Reason: cough) RF: 0 Interventions: ED Discharge Assessment Last Done: 01/09/21 22:49 Discharge Date/Time: 01/09/21 22:49
[2021-01-09 17:56] LABS: Alanine Aminotransferase 17 U/L (0-31); Albumin Level 3.9 g/dL (3.5-5.0); Alkaline Phosphatase 141 U/L (39-117); Aspartate Amino Transferase 12 U/L (5-31); Bilirubin Direct 0.2 mg/dL (0.0-0.5); Bilirubin Total 0.6 mg/dL (0.0-1.0); Lipase 22 U/L (8-78); Total Protein 6.9 g/dL (6.5-8.0)
[2021-01-09 18:28] LABS: Glucose, Whole Blood 506 mg/dL (60-115)
[2021-01-09] MEDS: Insulin Lispro 100 UNIT/ML 3 ML VIAL 14 UNIT SUBCUT (18:36)
[2021-01-09] MEDS: 0.9 % Sodium Chloride 1,000 ML 999 ML IVCONT ×2 (18:37→20:15)
[2021-01-09 19:34] LABS: Glucose, Whole Blood 345 mg/dL (60-115)
[2021-01-09 20:00] LABS: Troponin-I High Sensitivity 8.2 ng/L (<3.5-17.0)
[2021-01-09 20:15] VITALS: BP 161/55; PULSE 88; RESP 15; O2SAT 100
[2021-01-09] MEDS: Insulin Lispro 100 UNIT/ML 3 ML VIAL 10 UNIT SUBCUT (20:22)
[2021-01-09] MEDS: Famotidine/PF 20 MG/2 ML VIAL IVPUSH (20:22)
[2021-01-09] MEDS: Magnesium Hydrox/Alum Hydrox 30 ML ORAL.SUSP PO (20:22)
[2021-01-09 20:46] LABS: Appearance Urine CLEAR; Color Urine YELLOW; Glucose Urine UA 500 MG/DL (NEG); Leukocyte Esterase Urine NEG (NEG); Nitrite Urine NEG (NEG); PH 5.5 (5.0-8.0); Urine Blood TRACE (NEG); Urine Ketones NEG (NEG); Urine Protein NEG (NEG-TRACE)
[2021-01-09 20:56] LABS: Squamous Epithelial Cell Urine 1+ /LPF; WBC Urine 0 /HPF (0-4)
[2021-01-09] MEDS: Lidocaine HCl Viscous 2 % 15 ML SOLUTION MUCOUS MEM (21:40)
[2021-01-09 21:47] LABS: Glucose, Whole Blood 198 mg/dL (60-115)
== END 2021-01-09 22:49 | disposition home or self-care (01) ==
PROVIDERS: Emergency Provider Internal Medicine; PCP Internal Medicine
DX: E11.65 Type 2 diabetes mellitus with hyperglycemia (principal); Z87.891 Personal history of nicotine dependence; Z79.4 Long term (current) use of insulin; Z79.899 Other long term (current) drug therapy; Z79.01 Long term (current) use of anticoagulants
CPT/HCPCS: 36415; 80048; 80076; 81001; 82947; 83690; 84484; 85025; 93005; 96365; 96372; 96375; 99285

== ENCOUNTER 2021-01-13 11:47 | Outpatient (REF) | payer MEDICARE, MEDICAID, SELFPAY ==
--- NOTE | ~2021-01-13 | MM_ITS ---
EXAMINATION: MM DIAGNOSTIC DIGITAL BREAST TOMOSYNTHESIS, BILATERAL CLINICAL INFORMATION: Due for yearly. Probable benign post traumatic changes anterior upper outer right breast noted on prior imaging. History right anterior breast ecchymosis following fall when patient on Coumadin. TC score 3%. COMPARISON: Mammography: 10/09/2019, 12/22/2017, 12/10/2017, outside exam 11/02/2013 ([facility]) TECHNIQUE: Digital breast tomosynthesis is performed in both the craniocaudal and mediolateral oblique views along with computer-aided detection (CAD). Synthesized 2D images are generated from the tomosynthesis. FINDINGS: There are scattered areas of fibroglandular density (ACR BI-RADS breast composition Category b). There are a few benign small oil cysts anterior upper right breast on MLO view, sequela from previous injury. Otherwise, the prior densities anterior upper outer right breast have resolved. There are no suspicious changes. Neither breast shows interval significant mass or architectural abnormality or developing density. There are no abnormal calcifications. Again, there are numerous bilateral round and ductal secretory calcifications. The axilla and skin contours are unremarkable. Results are discussed with the patient at time of visit. MM/MM tomosynthesis diagnostic BI IMPRESSION: No mammographic evidence of malignancy. ASSESSMENT: BI-RADS 2: Benign RECOMMENDATION: Routine annual mammography screening. This patient's information was entered into a reminder system with a target due date for their next mammogram.
== END 2021-01-13 11:48 | disposition home or self-care (01) ==
LOC: HO.MAMMO 11:47
PROVIDERS: PCP Internal Medicine; Visit Provider Internal Medicine
DX: N63.11 Unspecified lump in the right breast, upper outer quadrant (principal)
CPT/HCPCS: 77062; 77066

== ENCOUNTER 2021-09-30 13:01 | Outpatient (REF) | payer MEDICARE, SELFPAY ==
[2021-09-30 14:20] LABS: MANUAL DIFF FLAG NO
[2021-09-30 14:25] LABS: Basophils Absolute Auto 0.1 X10*3/uL (0.0-0.2); Basophils Percent Auto 0.5 % (0-2); Eosinophils Absolute Auto 0.1 X10*3/uL (0.0-0.4); Eosinophils Percent Auto 0.5 % (0-4); Hemoglobin 14.4 g/dl (12.0-16.0); Imm Gran Abs Auto 0.06 X10*3/uL (0.00-0.03); Imm Gran Pct Auto 0.4 % (0.0-0.4); Lymphocytes Absolute Auto 1.5 X10*3/uL (1.2-4.9); Lymphocytes Percent Auto 10.1 % (20-40); Mean Corpuscular HGB Conc 31.3 g/dl (31.0-35.0); Mean Corpuscular Hemoglobin 25.5 pg (27.0-33.0); Mean Corpuscular Volume 81.6 fL (80.0-98.0); Mean Platelet Volume 10.2 fL (9.4-12.3); Monocytes Absolute Auto 0.7 X10*3/uL (0.1-1.2); Monocytes Percent Auto 4.8 % (2-11); Neutrophils Absolute Auto 12.3 x10*3/uL (2.0-8.3); Neutrophils Percent Auto 83.7 % (45-73); Platelet Count 332 X10*3/uL (160-400); Red Blood Count 5.64 X10*6/uL (4.20-5.50); Red Cell Distribution Width 15.7 % (11.0-16.0); White Blood Count 14.7 X10*3/uL (4.8-10.8)
[2021-09-30 14:49] LABS: Alanine Aminotransferase 23 U/L (0-31); Albumin Level 4.1 g/dL (3.5-5.0); Alkaline Phosphatase 112 U/L (39-117); Anion Gap 18 (12-20); Aspartate Amino Transferase 15 U/L (5-31); Bilirubin Total 0.6 mg/dL (0.0-1.0); Blood Urea Nitrogen 37 mg/dL (9-16); Calcium 9.6 mg/dL (8.4-10.2); Carbon Dioxide 33 mmol/L (22-29); Chloride 93 mmol/L (96-108); Cholesterol 186 mg/dL; Estimated Glomerular Filt Rate 34; Glucose Fasting 321 mg/dL (60-99); HDL Cholesterol 43 mg/dL; LDL Cholesterol Calculated 107 mg/dl; Potassium 3.3 mmol/L (3.3-5.1); Sodium 141 mmol/L (135-145); Total Protein 7.4 g/dL (6.5-8.0); Triglycerides 183 mg/dL
[2021-09-30 14:59] LABS: B Type Natriuretic Peptide 86 pg/mL (<100)
== END 2021-09-30 13:02 | disposition home or self-care (01) ==
LOC: HO.LAB 13:01
PROVIDERS: PCP Nurse Practitioner Family; Referring Provider Nurse Practitioner Family; Visit Provider Nurse Practitioner Family
DX: R06.02 Shortness of breath (principal); I25.10 Atherosclerotic heart disease of native coronary artery without angina pectoris; R01.1 Cardiac murmur, unspecified; R10.10 Upper abdominal pain, unspecified; I10 Essential (primary) hypertension; E78.5 Hyperlipidemia, unspecified; E11.65 Type 2 diabetes mellitus with hyperglycemia; G47.33 Obstructive sleep apnea (adult) (pediatric)
CPT/HCPCS: 36415; 80053; 80061; 83880; 85025; 93005; 99202

== ENCOUNTER 2021-10-02 16:35 | Emergency (ER) | payer MEDICARE, SELFPAY ==
--- NOTE | ~2021-10-02 | XR_ITS ---
EXAMINATION: XR CHEST CLINICAL INFORMATION: Shortness of breath. COMPARISON: Chest x-ray 05/16/2020. TECHNIQUE: Frontal portable view of the chest was obtained. FINDINGS: No acute abnormality. No pulmonary vascular congestion. No focal consolidation, pleural effusion or pneumothorax. Stable postoperative changes of the left lung with surgical suture chain at the mid and upper lung. Stable chronic widening of the right fourth rib interspace. Orthopedic plate at lower cervical spine. Multilevel degenerative spondylosis of the dorsal spine. XR/XR chest 1V IMPRESSION: No acute abnormality of the chest.
[2021-10-02 16:57] VITALS: BP 177/81; BP 184/65; PULSE 74; PULSE 81; RESP 18; TEMP 36.9; O2SAT 97; BMI 34.1
--- NOTE | 2021-10-02 17:11 | ED_ITS ---
HPI - SOB/Dyspnea General Chief Complaint: Dyspnea Stated Complaint: resp diff Time Seen by Provider: 10/02/21 17:11 Source: patient Mode of arrival: ambulatory Limitations: no limitations History of Present Illness HPI Narrative: patient is 70 years old with past medical history of hypertension hyperlipidemia diabetes prior smoking COPD sleep apnea not using CPAP yet recurrent PE and prox at fib on Eliquis for last 6 months come comes here for from PCP office for increased shortness of breath and cough for last 4 weeks patient treated with Augmentin without significant relief seen the public housing interviewer yesterday for same. Had previous echocardiogram in with ejection fraction of 70% with grade 1 diastolic dysfunction fn patient does have cough with mucopurulent phlegm no chest pain or palpitation no fever been tested multiple times for COVID negative Related Data Home Medications Medication Instructions Recorded Confirmed guaifenesin 100 mg/5 mL oral liquid 100 mg PO Q4H PRN 12/09/20 09/30/21 metoprolol tartrate 50 mg tablet 50 mg PO BID 12/25/20 09/30/21 acetaminophen [Tylenol] PO DAILY PRN 12/31/20 09/30/21 apixaban 5 mg tablet (Eliquis) 5 mg PO BID 09/30/21 09/30/21 furosemide 20 mg tablet 20 mg PO DAILY 09/30/21 09/30/21 melatonin 5 mg capsule 5 mg PO BEDTIME cap 09/30/21 09/30/21 sennosides 8.6 mg capsule (senna) 8.6 mg PO DAILY PRN 09/30/21 09/30/21 Previous Rx's Medication Instructions Recorded citalopram 40 mg tablet 40 mg PO DAILY #90 tab 06/08/20 pen needle, diabetic 32 gauge x 5 ea MISCELLANEOUS DAILY #200 ea 06/10/20 (Pentips) cholecalciferol (vitamin D3) 50 50 mcg PO DAILY #30 cap 07/25/20 mcg (2,000 unit) capsule insulin lispro 200 unit/mL (3 mL) 24 unit (0.12 mL) SUBCUT TID 90 08/06/20 subcutaneous pen Days #45 ml atorvastatin 40 mg tablet 40 mg PO BEDTIME 90 Days #90 tab 08/15/20 diltiazem HCl 240 mg 240 mg PO DAILY #90 cap 09/13/20 capsule,extended release 24 hr insulin glargine 100 unit/mL (3 40 unit (0.4 mL) SUBCUT DAILY #30 09/13/20 mL) subcutaneous pen (Lantus ml Solostar U-100 Insulin) pantoprazole 40 mg tablet,delayed 40 mg PO BID #180 tab 09/13/20 release flash glucose sensor (FreeStyle #2 ea 11/13/20 Kelly 2 Sensor) buspirone 5 mg tablet 5 mg PO DAILY #30 tab 12/16/20 FreeStyle Precision Jamaal Strips #50 ea NS 01/10/21 (blood sugar diagnostic) albuterol sulfate 90 mcg/actuation 2 puff INHALATION Q4H PRN #8.5 g 02/24/21 aerosol inhaler chlorthalidone 25 mg tablet 25 mg PO .q am 90 Days #90 tab 03/31/21 Symbicort 160 mcg-4.5 2 puff INHALATION BID #10.2 g NS 09/26/21 mcg/actuation HFA aerosol inhaler (budesonide-formoterol) codeine 10 mg-guaifenesin 100 mg/5 10 ml PO Q4-6H PRN #237 ml 10/02/21 mL oral liquid dexamethasone 6 mg tablet 6 mg PO DAILY #7 tab 10/02/21 (Decadron) doxycycline hyclate 100 mg tablet 100 mg PO BID #20 tab 10/02/21 Allergies Allergy/AdvReac Type Severity Reaction Status Date / Time Latex, Natural Allergy Severe blisters Verified 09/30/21 13:06 Rubber Sulfa (Sulfonamide Allergy Mild ITCHING, Verified 09/30/21 13:06 Antibiotics) rash [SULFA (SULFONAMIDE ANTIBIOTICS)] nystatin Allergy Unknown rash Verified 09/30/21 13:06 isosorbide [From AdvReac Unknown HEADACHES, Verified 09/30/21 13:06 Imdur] headache tizanidine AdvReac Unknown weakness, Verified 09/30/21 13:06 Hellucination Review of Systems Verdana 4l Review of Systems: Yes all other systems are reviewed and Verdana 4d are negative [facility] Past Medical History Medical History CAD (coronary artery disease) COPD (chronic obstructive pulmonary disease) Diabetes type 2, uncontrolled Dyslipidemia Hypertension 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 Father No problems noted. Social History Social History Alcohol intake: current Alcohol intake frequency: holidays/special occasions only Patient Tobacco Use Status: Former Tobacco user Quit Date: 1993 Smoked: 10 +/- Advance Directives: No Advance Directives Information Provided: No Physical Exam Verdana 4l Vital Signs: Verdana 4d Verdana 4d Vital Signs: Verdana 4d Verdana 4Bd Last Vital Signs Verdana 4d Press Writer New 4d Press Writer New 4d Temp 98.4 F 10/02/21 16:57 Press Writer New 4d Pulse 90 10/02/21 20:00 Press Writer New 4d Resp 20 10/02/21 20:00 BP 185/60 H 10/02/21 20:00 Pulse Ox 96 10/02/21 20:00 BMI result Body Mass Index 34.1 Appearance: Alert. Oriented X3. No acute distress. Eyes: no pallor acute ENT: Pharynx normal. Oral Mucosa moist Neck: Normal inspection. Neck supple. CVS: Normal heart rate and rhythm. Pulses normal. Respiratory: No respiratory distress. Equal air entry bilateral, no wheezing/rales/rhonchi Abdomen: Soft and nontender. Bowel sounds are present, no mass palpable, Skin: Skin warm and dry. Normal skin color. Normal skin turgor. Extremities: No lower extremity edema. No calf tenderness Neuro: Oriented X 3. MDM - SOB/Dyspnea MDM Narrative Medical decision making narrative: 550 pm patient with COPD sleep apnea comes for 3-4 weeks of cough with mucopurulent phlegm treated with antibiotic and prednisone saturating 96% on room air lungs are clear on auscultation. Do the lab workup including BNP D- dimer and chest x-ray 1930: patient workup is negative for CHF or PE D-dimer normal BNP also normal seems like patient has chronic shortness of breath secondary to COPD/asthma/ sleep apnea has not received her CPAP machine yet. patient is saturating 96-97% at room air, Will discharge patient home on prednisone doxycycline and cough syrup advised patient to follow with bridge ironworker helper to get the CPAP machine Lab Data Attestation: I reviewed the patient's lab results. Result diagrams: 10/02/21 18:04 10/02/21 18:05 Labs: Lab Results 10/02/21 10/02/21 10/02/21 Range/Units 18:03 18:04 18:04 WBC 12.6 H (4.8-10.8) X10*3/uL RBC 5.33 (4.20-5.50) X10*6/uL Hgb 13.6 (12.0-16.0) g/dl Hct 43.4 (37.0-47.0) % MCV 81.4 (80.0-98.0) fL MCH 25.5 L (27.0-33.0) pg MCHC 31.3 (31.0-35.0) g/dl RDW 15.8 (11.0-16.0) % Plt Count 286 (160-400) X10*3/uL MPV 9.8 (9.4-12.3) fL Immature Gran % (Auto) 0.3 (0.0-0.4) % Neut % (Auto) 67.0 (45-73) % Lymph % (Auto) 21.7 (20-40) % [place] % (Auto) 8.5 (2-11) % Eos % (Auto) 1.9 (0-4) % Baso % (Auto) 0.6 (0-2) % Lymph # (Auto) 2.7 (1.2-4.9) X10*3/uL [place] # (Auto) 1.1 (0.1-1.2) X10*3/uL Eos # (Auto) 0.2 (0.0-0.4) X10*3/uL Baso # (Auto) 0.1 (0.0-0.2) X10*3/uL Abs Immat Gran (auto) 0.04 H (0.00-0.03) X10*3/uL Absolute Neuts (auto) 8.5 H (2.0-8.3) x10*3/uL Absolute Nucleated RBC 0.000 (0.0-0.012) X10*3/uL Nucleated RBC % (auto) 0.0 (0.0-0.2) /100WBC PT (9.9-13.0) SEC INR (0.9-1.1) D-Dimer High Sensitivty NG/ML Sodium (135-145) mmol/L Potassium (3.3-5.1) mmol/L Chloride (96-108) mmol/L Carbon Dioxide (22-29) mmol/L Anion Gap (12-20) BUN (9-16) mg/dL Creatinine (0.5-1.4) mg/dL Estim Creat Clear Calc Estimated GFR Random Glucose (60-115) mg/dL Lactic Acid (0.5-2.0) mmol/L Calcium (8.4-10.2) mg/dL Magnesium (1.6-2.6) mg/dL Total Bilirubin (0.0-1.0) mg/dL Direct Bilirubin (0.0-0.5) mg/dL AST (5-31) U/L ALT (0-31) U/L Alkaline Phosphatase (39-117) U/L Troponin I High Sens 12.0 (<3.5-17.0) ng/L B-Natriuretic Peptide (<100) pg/mL Total Protein (6.5-8.0) g/dL Albumin (3.5-5.0) g/dL COVID-19 (CHEMA) Negative (Negative) COVID-19 Clin Com See Note 10/02/21 10/02/21 10/02/21 Range/Units 18:04 18:04 18:05 WBC (4.8-10.8) X10*3/uL RBC (4.20-5.50) X10*6/uL Hgb (12.0-16.0) g/dl Hct (37.0-47.0) % MCV (80.0-98.0) fL MCH (27.0-33.0) pg MCHC (31.0-35.0) g/dl RDW (11.0-16.0) % Plt Count (160-400) X10*3/uL MPV (9.4-12.3) fL Immature Gran % (Auto) (0.0-0.4) % Neut % (Auto) (45-73) % Lymph % (Auto) (20-40) % [place] % (Auto) (2-11) % Eos % (Auto) (0-4) % Baso % (Auto) (0-2) % Lymph # (Auto) (1.2-4.9) X10*3/uL [place] # (Auto) (0.1-1.2) X10*3/uL Eos # (Auto) (0.0-0.4) X10*3/uL Baso # (Auto) (0.0-0.2) X10*3/uL Abs Immat Gran (auto) (0.00-0.03) X10*3/uL Absolute Neuts (auto) (2.0-8.3) x10*3/uL Absolute Nucleated RBC (0.0-0.012) X10*3/uL Nucleated RBC % (auto) (0.0-0.2) /100WBC PT 14.1 H (9.9-13.0) SEC INR 1.2 H (0.9-1.1) D-Dimer High Sensitivty NG/ML Sodium (135-145) mmol/L Potassium (3.3-5.1) mmol/L Chloride (96-108) mmol/L Carbon Dioxide (22-29) mmol/L Anion Gap (12-20) BUN (9-16) mg/dL Creatinine (0.5-1.4) mg/dL Estim Creat Clear Calc Estimated GFR Random Glucose (60-115) mg/dL Lactic Acid 1.3 (0.5-2.0) mmol/L Calcium (8.4-10.2) mg/dL Magnesium (1.6-2.6) mg/dL Total Bilirubin (0.0-1.0) mg/dL Direct Bilirubin (0.0-0.5) mg/dL AST (5-31) U/L ALT (0-31) U/L Alkaline Phosphatase (39-117) U/L Troponin I High Sens (<3.5-17.0) ng/L B-Natriuretic Peptide 72 (<100) pg/mL Total Protein (6.5-8.0) g/dL Albumin (3.5-5.0) g/dL COVID-19 (CHEMA) (Negative) COVID-19 Clin Com 10/02/21 10/02/21 Range/Units 18:05 18:05 WBC (4.8-10.8) X10*3/uL RBC (4.20-5.50) X10*6/uL Hgb (12.0-16.0) g/dl Hct (37.0-47.0) % MCV (80.0-98.0) fL MCH (27.0-33.0) pg MCHC (31.0-35.0) g/dl RDW (11.0-16.0) % Plt Count (160-400) X10*3/uL MPV (9.4-12.3) fL Immature Gran % (Auto) (0.0-0.4) % Neut % (Auto) (45-73) % Lymph % (Auto) (20-40) % [place] % (Auto) (2-11) % Eos % (Auto) (0-4) % Baso % (Auto) (0-2) % Lymph # (Auto) (1.2-4.9) X10*3/uL [place] # (Auto) (0.1-1.2) X10*3/uL Eos # (Auto) (0.0-0.4) X10*3/uL Baso # (Auto) (0.0-0.2) X10*3/uL Abs Immat Gran (auto) (0.00-0.03) X10*3/uL Absolute Neuts (auto) (2.0-8.3) x10*3/uL Absolute Nucleated RBC (0.0-0.012) X10*3/uL Nucleated RBC % (auto) (0.0-0.2) /100WBC PT (9.9-13.0) SEC INR (0.9-1.1) D-Dimer High Sensitivty < 150 NG/ML Sodium 136 (135-145) mmol/L Potassium 3.4 (3.3-5.1) mmol/L Chloride 93 L (96-108) mmol/L Carbon Dioxide 35 H (22-29) mmol/L Anion Gap 11 L (12-20) BUN 24 H (9-16) mg/dL Creatinine 1.18 (0.5-1.4) mg/dL Estim Creat Clear Calc 46.8 Estimated GFR 45 Random Glucose 172 H D (60-115) mg/dL Lactic Acid (0.5-2.0) mmol/L Calcium 8.9 D (8.4-10.2) mg/dL Magnesium 2.1 (1.6-2.6) mg/dL Total Bilirubin 0.6 (0.0-1.0) mg/dL Direct Bilirubin 0.2 (0.0-0.5) mg/dL AST 14 (5-31) U/L ALT 18 (0-31) U/L Alkaline Phosphatase 105 (39-117) U/L Troponin I High Sens (<3.5-17.0) ng/L B-Natriuretic Peptide (<100) pg/mL Total Protein 6.8 (6.5-8.0) g/dL Albumin 3.8 (3.5-5.0) g/dL COVID-19 (CHEMA) (Negative) COVID-19 Clin Com ECG Data Attestation: I personally reviewed and interpreted this ECG as follows: Interpretation: normal sinus rhythm heart rate 73 beats per minute normal intervals normal axis no acute ST-T changes no acute ischemia Discharge Plan Discharge Clinical Impression: COPD (chronic obstructive pulmonary disease), Obstructive sleep apnea Patient Disposition: Home, Self-Care Instructions: Sleep Apnea (DC), COPD (Chronic Obstructive Pulmonary Disease) (ED) Additional Instructions: continue inhaler / nebulizing treatment as prescribed take Decadron as prescribed for 7 days cough syrup as prescribed doxycycline 1 capsule twice daily for 10 days follow-up with your lung specialist regarding CPAP machine and further management Prescriptions: New dexamethasone [Decadron] 6 mg tablet 6 mg PO DAILY Qty: 7 0RF codeine-guaifenesin 10-100 mg/5 mL liquid 10 ml PO Q4-6H PRN (Reason: cough) Qty: 237 0RF doxycycline hyclate 100 mg tablet 100 mg PO BID Qty: 20 0RF No Action citalopram 40 mg tablet 40 mg PO DAILY Qty: 90 3RF pen needle, diabetic [Pentips] 32 gauge x 5/32 needle 5 ea miscellaneous DAILY Qty: 200 11RF cholecalciferol (vitamin D3) 50 mcg (2,000 unit) capsule 50 mcg PO DAILY Qty: 30 5RF insulin lispro 200 unit/mL (3 mL) insulin pen 24 unit subcut TID 90 Days Qty: 45 1RF atorvastatin 40 mg tablet 40 mg PO BEDTIME 90 Days Qty: 90 1RF insulin glargine [Lantus Solostar U-100 Insulin] 100 unit/mL (3 mL) insulin pen 40 unit subcut DAILY Qty: 30 3RF diltiazem HCl 240 mg capsule,extended release 24hr 240 mg PO DAILY Qty: 90 0RF pantoprazole 40 mg tablet,delayed release (DR/EC) 40 mg PO BID Qty: 180 0RF (DME) FreeStyle Kelly 2 Sensor Kit See Rx Instructions .ROUTE .MEDSUPPLY Qty: 2 2RF Rx Instructions: As directed every 2 weeks buspirone 5 mg tablet 5 mg PO DAILY Qty: 30 0RF metoprolol tartrate 50 mg tablet 50 mg PO BID 0RF (DME) FreeStyle Precision Jamaal Strips Strip See Rx Instructions .ROUTE .MEDSUPPLY Qty: 50 5RF Rx Instructions: once a day for calibration albuterol sulfate 90 mcg/actuation HFA aerosol inhaler 2 puff inhalation Q4H PRN (Reason: for wheezing) Qty: 8.5 0RF chlorthalidone 25 mg tablet 25 mg PO .q am 90 Days Qty: 90 0RF budesonide-formoterol [Symbicort] 160-4.5 mcg/actuation HFA aerosol inhaler 2 puff inhalation BID Qty: 10.2 1RF acetaminophen PO DAILY PRN0RF guaifenesin 100 mg/5 mL liquid 100 mg PO Q4H PRN (Reason: cough) 0RF furosemide 20 mg tablet 20 mg PO DAILY 0RF Eliquis 5 mg tablet 5 mg PO BID 0RF melatonin 5 mg capsule 5 mg PO BEDTIME 0RF senna 8.6 mg capsule 8.6 mg PO DAILY PRN0RF Interventions: ED Discharge Assessment Last Done: 10/02/21 20:11 Discharge Date/Time: 10/02/21 20:12
--- NOTE | 2021-10-02 17:39 | ECG_ITS ---
Test Reason : AFIB Blood Pressure : / mmHG Vent. Rate : 073 BPM Atrial Rate : 073 BPM P-R Int : 174 ms QRS Dur : 074 ms QT Int : 392 ms P-R-T Axes : 038 029 064 degrees QTc Int : 431 ms Normal sinus rhythm Nonspecific T wave abnormality Abnormal ECG When compared with ECG of 09-JAN-2021 19:19, Nonspecific T wave abnormality, improved in Anterior leads QT has shortened Referred By: Candelario Kim Electronically Signed By:NELSON PLASCENCIA MD
[2021-10-02] MEDS: Albuterol/Iprat 2.5/0.5MG 3 ML AMPUL.NEB INHALE (18:11)
[2021-10-02 18:12] VITALS: PULSE 76; RESP 18; O2SAT 95
[2021-10-02 18:13] LABS: MANUAL DIFF FLAG NO
[2021-10-02 18:19] LABS: Basophils Absolute Auto 0.1 X10*3/uL (0.0-0.2); Basophils Percent Auto 0.6 % (0-2); Eosinophils Absolute Auto 0.2 X10*3/uL (0.0-0.4); Eosinophils Percent Auto 1.9 % (0-4); Hematocrit 43.4 % (37.0-47.0); Hemoglobin 13.6 g/dl (12.0-16.0); Imm Gran Abs Auto 0.04 X10*3/uL (0.00-0.03); Imm Gran Pct Auto 0.3 % (0.0-0.4); Lymphocytes Absolute Auto 2.7 X10*3/uL (1.2-4.9); Lymphocytes Percent Auto 21.7 % (20-40); Mean Corpuscular HGB Conc 31.3 g/dl (31.0-35.0); Mean Corpuscular Hemoglobin 25.5 pg (27.0-33.0); Mean Corpuscular Volume 81.4 fL (80.0-98.0); Mean Platelet Volume 9.8 fL (9.4-12.3); Monocytes Absolute Auto 1.1 X10*3/uL (0.1-1.2); Monocytes Percent Auto 8.5 % (2-11); Neutrophils Absolute Auto 8.5 x10*3/uL (2.0-8.3); Platelet Count 286 X10*3/uL (160-400); Red Blood Count 5.33 X10*6/uL (4.20-5.50); Red Cell Distribution Width 15.8 % (11.0-16.0); White Blood Count 12.6 X10*3/uL (4.8-10.8)
[2021-10-02 18:20] LABS: INTERNATIONAL NORM RATIO 1.2 (0.9-1.1); Prothrombin Time 14.1 SEC (9.9-13.0)
[2021-10-02 18:23] LABS: D Dimer High Sensitivity < 150 NG/ML
[2021-10-02 18:24] LABS: Lactic Acid 1.3 mmol/L (0.5-2.0)
[2021-10-02 18:28] LABS: Alanine Aminotransferase 18 U/L (0-31); Albumin Level 3.8 g/dL (3.5-5.0); Alkaline Phosphatase 105 U/L (39-117); Anion Gap 11 (12-20); Aspartate Amino Transferase 14 U/L (5-31); Bilirubin Direct 0.2 mg/dL (0.0-0.5); Bilirubin Total 0.6 mg/dL (0.0-1.0); Blood Urea Nitrogen 24 mg/dL (9-16); Calcium 8.9 mg/dL (8.4-10.2); Carbon Dioxide 35 mmol/L (22-29); Chloride 93 mmol/L (96-108); Creatinine Clr Calc Pharmacy 46.8; Estimated Glomerular Filt Rate 45; Glucose Random 172 mg/dL (60-115); Magnesium 2.1 mg/dL (1.6-2.6); Potassium 3.4 mmol/L (3.3-5.1); Sodium 136 mmol/L (135-145); Total Protein 6.8 g/dL (6.5-8.0)
[2021-10-02 18:33] LABS: B Type Natriuretic Peptide 72 pg/mL (<100)
[2021-10-02 18:33] LABS: COVID-19 Test Negative (Negative)
[2021-10-02 20:00] VITALS: BP 185/60; PULSE 90; RESP 20; O2SAT 96
[2021-10-02] MEDS: dexAMETHasone sod phosphate 4 MG/ML VIAL 6 MG IVPUSH (20:05)
== END 2021-10-02 20:12 | disposition home or self-care (01) ==
PROVIDERS: Emergency Provider Internal Medicine; PCP Internal Medicine
DX: J44.9 Chronic obstructive pulmonary disease, unspecified (principal); G47.33 Obstructive sleep apnea (adult) (pediatric); Z20.822 Contact with and (suspected) exposure to COVID-19; R06.02 Shortness of breath; I10 Essential (primary) hypertension; E78.5 Hyperlipidemia, unspecified; E11.9 Type 2 diabetes mellitus without complications; I48.0 Paroxysmal atrial fibrillation; Z86.711 Personal history of pulmonary embolism; Z79.01 Long term (current) use of anticoagulants; Z79.4 Long term (current) use of insulin
CPT/HCPCS: 36415; 71045; 80048; 80076; 83605; 83735; 83880; 84484; 85025; 85379; 85610; 87040; 87077; 87205; 87635; 93005; 94640; 96374; 99284; J1100

== ENCOUNTER 2021-10-03 15:39 | Inpatient (IN) | payer MEDICARE, OTHER, SELFPAY ==
--- NOTE | ~2021-10-03 | XR_ITS ---
EXAMINATION: XR CHEST CLINICAL INFORMATION: SOB COMPARISON: Chest 10/02/2021 TECHNIQUE: 2 views of the chest were obtained. FINDINGS: The lungs are well-expanded with elevated left hemidiaphragm. There is platelike atelectasis right midlung. Stable postoperative changes left midlung with surgical sutures. The heart size and pulmonary vascularity is normal. There is mild spondylosis dorsal spine. There is ventral plate and screws lower cervical spine for fusion. XR/XR chest 2V IMPRESSION: Mild elevated left hemidiaphragm. Platelike atelectasis right midlung. Post surgical changes left midlung. There is mild dorsal spine spondylosis.
[2021-10-03 16:43] VITALS: BP 215/75; PULSE 107; RESP 16; TEMP 36.5; O2SAT 95; BMI 34.3
--- NOTE | 2021-10-03 16:58 | ED_ITS ---
HPI - General Adult General Chief complaint: Recheck/Abnormal Lab/Rx Stated complaint: Abnormal lab Time Seen by Provider: 10/03/21 16:58 Source: patient and RN notes reviewed Mode of arrival: ambulatory Limitations: no limitations History of Present Illness HPI narrative: 70-year-old female with past medical history of diabetes, PE, dyslipidemia, hypertension, CAD, obstructive sleep apnea not using CPAP at night, COPD, is here today for worsening cough and shortness of breath. Patient was seen in the emergency department yesterday for similar symptoms was sent home on Decadron. Patient reports that she feels very short of breath increased cough. Treated before for sinus infection about couple weeks ago. Patient denies PND, edema, dizziness, presyncope, syncope, falls. Patient was seen by Cardiology on the for ruling out Congestive heart failure. Blood were was done then and her BNP was 86, yesterday BMP was 72. Patient looks euvolemic, however very short of breath even when speaking. Patient also reports left nonradiating shoulder pain Onset (ago): day(s) Related Data Home Medications Medication Instructions Recorded Confirmed guaifenesin 100 mg/5 mL oral liquid 100 mg PO Q4H PRN 12/09/20 09/30/21 metoprolol tartrate 50 mg tablet 50 mg PO BID 12/25/20 09/30/21 acetaminophen [Tylenol] PO DAILY PRN 12/31/20 09/30/21 apixaban 5 mg tablet (Eliquis) 5 mg PO BID 09/30/21 09/30/21 furosemide 20 mg tablet 20 mg PO DAILY 09/30/21 09/30/21 melatonin 5 mg capsule 5 mg PO BEDTIME cap 09/30/21 09/30/21 sennosides 8.6 mg capsule (senna) 8.6 mg PO DAILY PRN 09/30/21 09/30/21 Previous Rx's Medication Instructions Recorded citalopram 40 mg tablet 40 mg PO DAILY #90 tab 06/08/20 pen needle, diabetic 32 gauge x 5 ea MISCELLANEOUS DAILY #200 ea 06/10/20 (Pentips) cholecalciferol (vitamin D3) 50 50 mcg PO DAILY #30 cap 07/25/20 mcg (2,000 unit) capsule insulin lispro 200 unit/mL (3 mL) 24 unit (0.12 mL) SUBCUT TID 90 08/06/20 subcutaneous pen Days #45 ml atorvastatin 40 mg tablet 40 mg PO BEDTIME 90 Days #90 tab 08/15/20 diltiazem HCl 240 mg 240 mg PO DAILY #90 cap 09/13/20 capsule,extended release 24 hr insulin glargine 100 unit/mL (3 40 unit (0.4 mL) SUBCUT DAILY #30 09/13/20 mL) subcutaneous pen (Lantus ml Solostar U-100 Insulin) pantoprazole 40 mg tablet,delayed 40 mg PO BID #180 tab 09/13/20 release flash glucose sensor (FreeStyle #2 ea 11/13/20 Kelly 2 Sensor) buspirone 5 mg tablet 5 mg PO DAILY #30 tab 12/16/20 FreeStyle Precision Jamaal Strips #50 ea NS 01/10/21 (blood sugar diagnostic) albuterol sulfate 90 mcg/actuation 2 puff INHALATION Q4H PRN #8.5 g 02/24/21 aerosol inhaler chlorthalidone 25 mg tablet 25 mg PO .q am 90 Days #90 tab 03/31/21 Symbicort 160 mcg-4.5 2 puff INHALATION BID #10.2 g NS 09/26/21 mcg/actuation HFA aerosol inhaler (budesonide-formoterol) codeine 10 mg-guaifenesin 100 mg/5 10 ml PO Q4-6H PRN #237 ml 10/02/21 mL oral liquid dexamethasone 6 mg tablet 6 mg PO DAILY #7 tab 10/02/21 (Decadron) doxycycline hyclate 100 mg tablet 100 mg PO BID #20 tab 10/02/21 Allergies Allergy/AdvReac Type Severity Reaction Status Date / Time Latex, Natural Allergy Severe blisters Verified 09/30/21 13:06 Rubber Sulfa (Sulfonamide Allergy Mild ITCHING, Verified 09/30/21 13:06 Antibiotics) rash [SULFA (SULFONAMIDE ANTIBIOTICS)] nystatin Allergy Unknown rash Verified 09/30/21 13:06 isosorbide [From AdvReac Unknown HEADACHES, Verified 09/30/21 13:06 Imdur] headache tizanidine AdvReac Unknown weakness, Verified 09/30/21 13:06 Hellucination Review of Systems Verdana 4l Review of Systems: Verdana 4d Verdana 4d Constitutional : No Weight loss, No Fever, No Chills, No Night Sweats, No Fatigue, No Malaise ENT/Mouth : No Hearing loss, No Ear Pain, No Nasal Congestion, No Sinus Pain, No Hoarseness, No sore throat, No Rhinorrhea, No Swallowing DifficultyDifficulty Eyes: No Eye Pain, No Swelling, No Redness, No Foreign Body, No Discharge, No Vision Changes Cardiovascular : No Chest Pain, SOB, Dyspnea on Exertion, No Orthopnea, No Edema, No Palpitations Respiratory : Cough, No Sputum, No Wheezing, No Smoke Exposure, Dyspnea Gastrointestinal : No Nausea, No Vomiting, No Diarrhea, No Constipation, No abdominal Pain, No Hematochezia, No Melena Genitourinary : no irregular bleeding, No Dysuria, No Urinary Frequency, No Hematuria, No Urinary Incontinence, No Urgency, No Flank Pain, No Urinary Flow Changes, No Hesitancy Musculoskeletal : No joint pain, No Myalgias, No Joint Swelling Skin : No Skin Lesions, No rash Neuro : No Weakness, No Numbness, No Paresthesias, No Loss of Consciousness, No Dizziness, No Headache Psych : No Anxiety/Panic, No Depression, No SI/HI/AH/VH, No Social Issues, Yes all other systems are reviewed and are negative PMF Past Medical History Medical History CAD (coronary artery disease) COPD (chronic obstructive pulmonary disease) Diabetes type 2, uncontrolled Dyslipidemia Hypertension 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 Father No problems noted. Social History Social History Alcohol intake: current Alcohol intake frequency: holidays/special occasions only Patient Tobacco Use Status: Former Tobacco user Quit Date: 1993 Years Smoked: 10 +/- Advance Directives: No Advance Directives Information Provided: No Physical Exam Verdana 4l Vital Signs: Verdana 4d Verdana 4d Vital Signs: Verdana 4d Verdana 4Bd Last Vital Signs Verdana 4d Wine Consultant New 4d Wine Consultant New 4d Temp 98.2 F 10/03/21 20:33 Wine Consultant New 4d Pulse 59 10/03/21 20:33 Wine Consultant New 4d Resp 14 10/03/21 20:33 BP 105/62 10/03/21 20:33 Pulse Ox 98 10/03/21 20:33 BMI result Body Mass Index 34.3 Const: General: healthy appearing, no acute distress and well developed Nutritional Appearance: well nourished Orientation/consciousness: patient oriented x3 HENMT: Head: Yes normal to inspection, Yes normocephalic and Yes atraumatic Face and sinus: Yes normal facial exam Mouth: Normal oral and palatal mucosa present Throat: Yes posterior oropharynx normal, Yes tonsils normal and Yes uvula midline Eyes: General: appearance normal, both eyes and all related structures Neck: Neck: Yes normal visual inspection, Yes full ROM and Yes trachea midline Thyroid: Thyroid normal Resp: Effort & Inspection: not able to speak in complete sentences, no tracheal d eviation and symmetric chest movement Auscultation: wheezes expiratory wh eezes and upper bilaterally and other (Diminished bilateral lower lobes) Cardio: Jugular venous distension: no JVD Rate: regular rate Heart sounds: S1 normal heart sound present, S2 normal heart sound present, no gallops and no murmurs GI: Inspection: Yes normal to inspection and No distended Palpation (GI): Soft to palpation, not firm, nontender and No hepatosplenomegaly present Auscultation: normal bowel sounds : General: Yes no CVA tenderness Back/Spine/Pelvis: Back: no CVA tenderness Skin: General skin exam: elasticity normal, turgor normal and dry skin Neuro: General: patient oriented x3 Psych: Appearance: grossly normal Mental Status: mental status grossly normal Speech and movement: Normal speech and movement present Affect: normal affect Attitude: cooperative Thought process: Normal thought process present Thought content: Normal thought content present Insight: Good insight present (Psych) Judgement: Good judgement present (Psych) Course Course Course Narrative: 70-year-old female with past medical history of diabetes, PE, dyslipidemia, hypertension, CAD, obstructive sleep apnea not using CPAP at night, COPD, is here today for worsening cough and shortness of breath. Patient was seen in the emergency department yesterday for similar symptoms was sent home on Decadron. Patient reports that she feels very short of breath increased cough. Treated before for sinus infection about couple weeks ago. Patient denies PND, edema, dizziness, presyncope, syncope, falls. Patient was seen by Cardiology on the for ruling out Congestive heart failure. Blood were was done then and her BNP was 86, yesterday BMP was 72. Patient looks euvolemic, however very short of breath even when speaking. Patient also reports left nonradiating shoulder pain. CBC, BMP, troponin, chest x-ray, IV, repeat blood cultures. Reevaluation(s) Reevaluation #1: Leukocytosis, WBC 16.3 related to possibility of steroid use versus infection, lactic acid ordered, awaiting results. inspiratory and expiratory wheeze, pat ient appears very anxious. Will order albuterol treatment now. Chest x-ray does not show any acute disease. Heart rate 102, suspicion for infection versus COPD exacerbation. Time: 18:54 Reevaluation #2: Lactic acid 2.7 we will do gentle hydration, patient does have a history of Congestive heart failure in the past. Medical Decision Making Lab Data Result diagrams: 10/03/21 17:58 10/03/21 17:58 Labs: Lab Results 10/03/21 10/03/21 10/03/21 Range/Units 17:58 17:58 17:58 WBC 16.3 H (4.8-10.8) X10*3/uL RBC 4.94 (4.20-5.50) X10*6/uL Hgb 12.6 (12.0-16.0) g/dl Hct 39.6 (37.0-47.0) % MCV 80.2 (80.0-98.0) fL MCH 25.5 L (27.0-33.0) pg MCHC 31.8 (31.0-35.0) g/dl RDW 15.8 (11.0-16.0) % Plt Count 299 (160-400) X10*3/uL MPV 10.3 (9.4-12.3) fL Immature Gran % (Auto) 0.6 H (0.0-0.4) % Neut % (Auto) 89.1 H (45-73) % Lymph % (Auto) 5.3 L (20-40) % Jewell % (Auto) 4.8 (2-11) % Eos % (Auto) 0.0 (0-4) % Baso % (Auto) 0.2 (0-2) % Lymph # (Auto) 0.9 L (1.2-4.9) X10*3/uL Jewell # (Auto) 0.8 (0.1-1.2) X10*3/uL Eos # (Auto) 0.0 (0.0-0.4) X10*3/uL Baso # (Auto) 0.0 (0.0-0.2) X10*3/uL Abs Immat Gran (auto) 0.10 H (0.00-0.03) X10*3/uL Absolute Neuts (auto) 14.5 H (2.0-8.3) x10*3/uL Absolute Nucleated RBC 0.000 (0.0-0.012) X10*3/uL Nucleated RBC % (auto) 0.0 (0.0-0.2) /100WBC Sodium 138 (135-145) mmol/L Potassium 3.5 (3.3-5.1) mmol/L Chloride 98 (96-108) mmol/L Carbon Dioxide 27 (22-29) mmol/L Anion Gap 17 (12-20) BUN 32 H (9-16) mg/dL Creatinine 1.41 H (0.5-1.4) mg/dL Estim Creat Clear Calc 39.3 Estimated GFR 37 Random Glucose 324 H (60-115) mg/dL Lactic Acid (0.5-2.0) mmol/L Calcium 9.0 (8.4-10.2) mg/dL Troponin I High Sens (<3.5-17.0) ng/L COVID-19 (CHEMA) Negative (Negative) COVID-19 Clin Com See Note 10/03/21 10/03/21 Range/Units 17:58 20:17 WBC (4.8-10.8) X10*3/uL RBC (4.20-5.50) X10*6/uL Hgb (12.0-16.0) g/dl Hct (37.0-47.0) % MCV (80.0-98.0) fL MCH (27.0-33.0) pg MCHC (31.0-35.0) g/dl RDW (11.0-16.0) % Plt Count (160-400) X10*3/uL MPV (9.4-12.3) fL Immature Gran % (Auto) (0.0-0.4) % Neut % (Auto) (45-73) % Lymph % (Auto) (20-40) % Jewell % (Auto) (2-11) % Eos % (Auto) (0-4) % Baso % (Auto) (0-2) % Lymph # (Auto) (1.2-4.9) X10*3/uL Jewell # (Auto) (0.1-1.2) X10*3/uL Eos # (Auto) (0.0-0.4) X10*3/uL Baso # (Auto) (0.0-0.2) X10*3/uL Abs Immat Gran (auto) (0.00-0.03) X10*3/uL Absolute Neuts (auto) (2.0-8.3) x10*3/uL Absolute Nucleated RBC (0.0-0.012) X10*3/uL Nucleated RBC % (auto) (0.0-0.2) /100WBC Sodium (135-145) mmol/L Potassium (3.3-5.1) mmol/L Chloride (96-108) mmol/L Carbon Dioxide (22-29) mmol/L Anion Gap (12-20) BUN (9-16) mg/dL Creatinine (0.5-1.4) mg/dL Estim Creat Clear Calc Estimated GFR Random Glucose (60-115) mg/dL Lactic Acid 2.7 H* (0.5-2.0) mmol/L Calcium (8.4-10.2) mg/dL Troponin I High Sens 18.6 H D (<3.5-17.0) ng/L COVID-19 (CHEMA) (Negative) COVID-19 Clin Com Imaging Data Chest x-ray: Attestation: I personally reviewed and interpreted this imaging study as follows: Radiologist's impression: FINDINGS: The lungs are well-expanded with elevated left hemidiaphragm. There is platelike atelectasis right midlung. Stable postoperative changes left midlung with surgical sutures. The heart size and pulmonary vascularity is normal. There is mild spondylosis dorsal spine. There is ventral plate and screws lower cervical spine for fusion. XR/XR chest 2V IMPRESSION: Mild elevated left hemidiaphragm. ? Platelike atelectasis right midlung. Post surgical changes left midlung. ? There is mild dorsal spine spondylosis. Discharge Plan Discharge Clinical Impression: Acute exacerbation of chronic obstructive pulmonary disease Patient Disposition: Admitted As Inpatient
[2021-10-03 17:04] VITALS: BP 194/68; PULSE 103; RESP 18; TEMP 37.1; O2SAT 98
--- NOTE | 2021-10-03 17:09 | ECG_ITS ---
Test Reason : SOB Blood Pressure : / mmHG Vent. Rate : 095 BPM Atrial Rate : 095 BPM P-R Int : 184 ms QRS Dur : 082 ms QT Int : 360 ms P-R-T Axes : 046 030 017 degrees QTc Int : 452 ms Normal sinus rhythm Possible Left atrial enlargement Nonspecific T wave abnormality Abnormal ECG When compared with ECG of 02-OCT-2021 17:50, Nonspecific T wave abnormality now evident in Inferior leads Referred By: Pooja Beltrán Electronically Signed By:NELSON PLASCENCIA MD
[2021-10-03 18:05] LABS: MANUAL DIFF FLAG NO
[2021-10-03 18:06] LABS: Basophils Percent Auto 0.2 % (0-2); Hematocrit 39.6 % (37.0-47.0); Hemoglobin 12.6 g/dl (12.0-16.0); Imm Gran Pct Auto 0.6 % (0.0-0.4); Lymphocytes Absolute Auto 0.9 X10*3/uL (1.2-4.9); Lymphocytes Percent Auto 5.3 % (20-40); Mean Corpuscular HGB Conc 31.8 g/dl (31.0-35.0); Mean Corpuscular Hemoglobin 25.5 pg (27.0-33.0); Mean Corpuscular Volume 80.2 fL (80.0-98.0); Mean Platelet Volume 10.3 fL (9.4-12.3); Monocytes Absolute Auto 0.8 X10*3/uL (0.1-1.2); Monocytes Percent Auto 4.8 % (2-11); Neutrophils Absolute Auto 14.5 x10*3/uL (2.0-8.3); Neutrophils Percent Auto 89.1 % (45-73); Platelet Count 299 X10*3/uL (160-400); Red Blood Count 4.94 X10*6/uL (4.20-5.50); Red Cell Distribution Width 15.8 % (11.0-16.0); White Blood Count 16.3 X10*3/uL (4.8-10.8)
[2021-10-03 18:21] LABS: COVID-19 Test Negative (Negative)
[2021-10-03 18:22] LABS: Anion Gap 17 (12-20); Blood Urea Nitrogen 32 mg/dL (9-16); Carbon Dioxide 27 mmol/L (22-29); Chloride 98 mmol/L (96-108); Creatinine Clr Calc Pharmacy 39.3; Estimated Glomerular Filt Rate 37; Glucose Random 324 mg/dL (60-115); Potassium 3.5 mmol/L (3.3-5.1); Sodium 138 mmol/L (135-145)
[2021-10-03 19:09] LABS: Troponin-I High Sensitivity 18.6 ng/L (<3.5-17.0)
[2021-10-03 19:21] VITALS: BP 171/72; PULSE 97; RESP 16; TEMP 37; O2SAT 99
[2021-10-03] MEDS: cefTRIAXone sodium 1 GM in 0.9 % Sodium Chloride 50 ML IV (19:23)
[2021-10-03] MEDS: 0.9 % Sodium Chloride 500 ML IV ×2 (19:28→23:29)
--- NOTE | 2021-10-03 19:30 | PC.NURSE ---
BP 171/72 Provider at bedside, aware of BP no new orders at this time
--- NOTE | 2021-10-03 19:40 | PC.NURSE ---
pt called nurse to bedside, states she is starting to feel lightheaded. pt also having sudden onset inspiratory wheezing. provider called to bedside. RT called to bedside.
[2021-10-03] MEDS: Albuterol Sulfate (0.083%) 2.5 MG/3 ML VIAL.NEB 5 MG INHALE (19:57)
[2021-10-03 20:00] VITALS: PULSE 94; RESP 16; O2SAT 99
[2021-10-03] MEDS: Azithromycin 500 MG in 0.9 % Sodium Chloride 250 ML 125 MG IV (20:16)
[2021-10-03 20:33] VITALS: BP 105/62; PULSE 59; RESP 14; TEMP 36.8; O2SAT 98
[2021-10-03 20:43] LABS: Lactic Acid 2.7 mmol/L (0.5-2.0)
[2021-10-03 22:06] LABS: Troponin-I High Sensitivity 31.3 ng/L (<3.5-17.0)
--- NOTE | 2021-10-03 22:11 | PHA.MEDREC ---
Pharmacy Consult ? Medication Reconciliation Pharmacy has completed the medication reconciliation. Pt stated she did not take any medications today. She thinks she started her prednisone but was unsure, noted that it just got picked up but I think I took one. She had a medication list with her that noted she was on a 7 day supply of furosemide and had two days left. Pt also stated that she is supposed to be on citalopram 40mg and buspirone 5mg but she needs to pick them up and was unsure when they were last taken. Gabi Bah, PharmD
[2021-10-03 22:20] LABS: Reflex Lactate? Lactic Acid Added
[2021-10-03 23:25] VITALS: BP 161/63; PULSE 108; RESP 16; O2SAT 96
[2021-10-03] MEDS: methylPREDNISolone Sod Succ 40 MG/ML VIAL IVPUSH (23:27)
[2021-10-04] VITALS (11 sets, daily range): BP systolic 131–186; BP diastolic 60–80; PULSE 70–109; RESP 14–20; TEMP 35.8–36.8; O2SAT 93–98; BMI 36.0
--- NOTE | 2021-10-04 | ECG_ITS ---
Test Reason : CP Blood Pressure : / mmHG Vent. Rate : 102 BPM Atrial Rate : 102 BPM P-R Int : 192 ms QRS Dur : 074 ms QT Int : 376 ms P-R-T Axes : 072 043 011 degrees QTc Int : 490 ms Sinus tachycardia with Premature atrial complexes Nonspecific ST abnormality Abnormal ECG When compared with ECG of 03-OCT-2021 19:31, Premature atrial complexes are now Present Referred By: Cierra Velasco Electronically Signed By:SCOTTIE MONROY
[2021-10-04] MEDS: Acetaminophen 325 MG TABLET 650 MG PO ×2 (00:17→09:45)
--- NOTE | 2021-10-04 00:20 | PC.NURSE ---
pt c/o increasing abdominal pain and states the pain is radiating upwards. pt medicated with prn Tylenol. Pt HR 109. provider notified of pt change in pain and HR
[2021-10-04 00:42] LABS: Reflex Lactate? 2 Y
--- NOTE | 2021-10-04 01:12 | PC.NURSE ---
nurse to nurse report given to Kris RESENDIZ
[2021-10-04] MEDS: Morphine Sulfate 4 MG/ML CARTRIDGE IVPUSH (02:27)
[2021-10-04 02:33] LABS: ~Lactic Acid-LAB USE ONLY 4.7 mmol/L (0.5-2.0)
[2021-10-04] MEDS: Lactated Ringers 1,000 ML 100 ML IVCONT ×2 (03:09→12:33)
--- NOTE | 2021-10-04 05:40 | P.HPHOSP_ITS ---
History of Present Illness Date of Service: 10/03/21 Chief Complaint: Shortness of breath This is a 70-year-old female with history of CAD, COPD, diabetes, hyperlipidemia, history of hypertension, BC, pulmonary embolism, ALYSIA not compliant with CPAP, who presents to the hospital with complaints of works owning shortness of breath. Patient reports that her symptoms started since August but have worsened over the last week. She has increased cough, sputum production, no fever some chills. She is feeling very anxious. She feels like she can not catch her breath. She was seen in the hospital on the day prior, discharge with Decadron p.o. but reports no relief of her symptoms. Patient denies any orthopnea or PND, no lower extremity edema. No fever or chills, no abdominal pain nausea or vomiting, no diarrhea constipation, no urinary symptoms and no lower extremity edema. On arrival to the ED patient found to be tachycardic with a heart rate of 107, respiratory rate of 16, blood pressure of 215/75, satting 95% on room air Labs are significant for WBC count 16.3, lactic acid of 2.7, initial troponin of 18.6 that increased to 31.3, Chest x-ray showed mild elevated left hemidiaphragm, platelike atelectasis right mid lung, and postsurgical changes in the left mid lung Patient will be admitted for COPD exacerbation Review of Systems Verdana 4l Review of Systems: Yes all other systems are reviewed and Verdana 4d are negative [facility] Medical History CAD (coronary artery disease) COPD (chronic obstructive pulmonary disease) Diabetes type 2, uncontrolled Dyslipidemia 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 Father No problems noted. Surgical History History of cardiac cath History of carpal tunnel surgery History of cholecystectomy History of lobectomy of lung Status post tracheoplasty Social History Household Members: Family Housing: House Do you presently have visiting nurse or other home services: Yes Alcohol intake: current Alcohol intake frequency: holidays/special occasions only Patient Tobacco Use Status: Former Tobacco user Quit Date: 1993 Years Smoked: 10 +/- Use of substances other than those prescribed or required for medical reasons: No Have you been hit, kicked, punched, or otherwise hurt by someone within the past year? If so, by whom?: No Do you feel safe in your current relationship?: No Is there a partner from a previous relationship who is making you feel unsafe now?: No Advance Directives: No Advance Directives Information Provided: No Do you have thoughts of harming others: None Do you have a plan to hurt others: No Plan Recently lost weight without trying: Yes How much weight loss: 2-13 pounds Eating poorly because of decreased appetite: No Nutrition screen score: 3 Meds Allergies Allergy/AdvReac Type Severity Reaction Status Date / Time Latex, Natural Allergy Severe blisters Verified 09/30/21 13:06 Rubber Sulfa (Sulfonamide Allergy Mild ITCHING, Verified 09/30/21 13:06 Antibiotics) rash [SULFA (SULFONAMIDE ANTIBIOTICS)] nystatin Allergy Unknown rash Verified 09/30/21 13:06 isosorbide [From AdvReac Unknown HEADACHES, Verified 09/30/21 13:06 Imdur] headache tizanidine AdvReac Unknown weakness, Verified 09/30/21 13:06 Hellucination Active Medications: Current Medications Acetaminophen (Acetaminophen 325 Mg Tablet) 650 mg PO Q6H PRN PRN Reason: Pain, Mild (Pain Scale 1-3) Last Admin: 10/04/21 00:17 Dose: 650 mg Documented by: Albuterol/Ipratropium (Albuterol/Iprat 2.5/0.5mg 3 Ml Ampul.Neb) 3 ml INHALE Q4H PRN PRN Reason: Shortness of Breath/Wheezing Albuterol/Ipratropium (Albuterol/Iprat 2.5/0.5mg 3 Ml Ampul.Neb) 3 ml INHALE RQ4H WHILE AWAKE LOU Docusate Sodium (Docusate Sodium 100 Mg Capsule) 100 mg PO DAILY PRN PRN Reason: Constipation Azithromycin 500 mg/ Sodium (Chloride) 250 mls @ 125 mls/hr IV Q24H LOU Lactated Ringer's (Lr) 1,000 mls @ 100 mls/hr IVCONT .Q10H [facility] Last Admin: 10/04/21 03:09 Dose: 100 mls/hr Documented by: Methylprednisolone Sodium Succinate (Methylprednisolone Sod Succ 40 Mg/Ml Vial) 40 mg IVPUSH Q12H [facility] Last Admin: 10/03/21 23:27 Dose: 40 mg Documented by: Ondansetron HCl (Ondansetron Hcl 4 Mg/2 Ml Vial) 4 mg IVPUSH Q8H PRN PRN Reason: Nausea and Vomiting Pharmacy Consult (Consult Rx Perform Med Rec) 1 each MISCELLANE ONCE PRN PRN Reason: Consult order Sodium Chloride (0.9 % Sodium Chloride Flush 3 Ml Syringe) 3 ml IVFLUSH QSHIFT [facility] Last Admin: 10/04/21 00:08 Dose: Not Given Documented by: Home Medications Medication Instructions Recorded Confirmed Last Taken Type guaifenesin 100 100 mg PO Q4H 12/09/20 10/03/21 10/02/21 History mg/5 mL oral PRN liquid metoprolol 50 mg PO BID 12/25/20 10/03/21 10/02/21 History tartrate 50 mg tablet apixaban 5 mg 5 mg PO BID 09/30/21 10/03/21 10/02/21 History tablet (Eliquis) furosemide 20 mg 20 mg PO DAILY 09/30/21 10/03/21 10/02/21 History tablet melatonin 5 mg 5 mg PO BEDTIME 09/30/21 10/03/21 10/02/21 History capsule PRN cap chlorthalidone 25 25 mg PO DAILY 10/03/21 10/03/21 10/02/21 History mg tablet empagliflozin 10 1 tab PO DAILY 10/03/21 10/03/21 10/02/21 History mg tablet (Jardiance) insulin glargine 50 unit SUBCUT 10/03/21 10/03/21 10/02/21 History 100 unit/mL (3 DAILY mL) subcutaneous pen (Lantus Solostar U-100 Insulin) insulin lispro See Protocol 10/03/21 10/03/21 10/02/21 History 200 unit/mL (3 SUBCUT mL) DIRECTED subcutaneous pen prednisone 20 mg 1 tab PO DAILY 10/03/21 10/03/21 Unknown History tablet Physical Exam Verdana 4l Vital Signs and Narrative: Verdana 4d Verdana 4d Vital Signs: Verdana 4d Verdana 4Bd Last Vital Signs Verdana 4d Supervisory Investigative Specialist New 4d Supervisory Investigative Specialist New 4d Temp 98.2 F 10/04/21 01:59 Supervisory Investigative Specialist New 4d Pulse 105 H 10/04/21 01:59 Supervisory Investigative Specialist New 4d Resp 20 10/04/21 01:59 BP 150/80 H 10/04/21 01:59 Pulse Ox 98 10/04/21 01:59 BMI result Body Mass Index 36.0 Const: General: cooperative and no acute distress Orientation/consciousness: patient oriented x3 Eyes: General: appearance normal, both eyes and all related structures Pupils: Equal, round and reactive pupils present Resp: Other: Tachypneic, expiratory wheezing, distant breath sounds Effort & Inspection: normal respiratory effort Cardio: Rate: regular rate Rhythm: regular rhythm GI: Palpation (GI): Soft to palpation Auscultation: normal bowel sounds Skin: General skin exam: no rashes or lesions noted Neuro: General: patient oriented x3 Cranial nerves: Yes Equal, round and reactive pupils present Cognition (Neuro): normal cognition Extrem: General: Yes normal to inspection and Yes no pedal edema Results Labs CBC and Chem 7: 10/03/21 17:58 10/03/21 17:58 Labs: Laboratory Results - last 24 hr 10/03/21 10/03/21 10/03/21 17:58 17:58 17:58 MCV 80.2 MCH 25.5 L MCHC 31.8 RDW 15.8 Plt Count 299 MPV 10.3 Immature Gran % (Auto) 0.6 H Neut % (Auto) 89.1 H Lymph % (Auto) 5.3 L Jack % (Auto) 4.8 Eos % (Auto) 0.0 Baso % (Auto) 0.2 Lymph # (Auto) 0.9 L Jack # (Auto) 0.8 Eos # (Auto) 0.0 Baso # (Auto) 0.0 Abs Immat Gran (auto) 0.10 H Absolute Neuts (auto) 14.5 H Absolute Nucleated RBC 0.000 Nucleated RBC % (auto) 0.0 Anion Gap 17 Estim Creat Clear Calc 39.3 Estimated GFR 37 Random Glucose 324 H Lactic Acid Lactic Acid F/U @ 2Hr Lactic Acid F/U @ 4Hr Calcium 9.0 Troponin I High Sens COVID-19 (CHEMA) Negative COVID-19 Clin Com See Note 10/03/21 10/03/21 10/03/21 17:58 20:17 21:31 MCV MCH MCHC RDW Plt Count MPV Immature Gran % (Auto) Neut % (Auto) Lymph % (Auto) Jack % (Auto) Eos % (Auto) Baso % (Auto) Lymph # (Auto) Jack # (Auto) Eos # (Auto) Baso # (Auto) Abs Immat Gran (auto) Absolute Neuts (auto) Absolute Nucleated RBC Nucleated RBC % (auto) Anion Gap Estim Creat Clear Calc Estimated GFR Random Glucose Lactic Acid 2.7 H* Lactic Acid F/U @ 2Hr Lactic Acid F/U @ 4Hr Calcium Troponin I High Sens 18.6 H D 31.3 H D COVID-19 ([facility]MA) COVID-19 [employer] Com 10/03/21 10/04/21 22:37 02:04 MCV MCH MCHC RDW Plt Count MPV Immature Gran % (Auto) Neut % (Auto) Lymph % (Auto) Jack % (Auto) Eos % (Auto) Baso % (Auto) Lymph # (Auto) Jack # (Auto) Eos # (Auto) Baso # (Auto) Abs Immat Gran (auto) Absolute Neuts (auto) Absolute Nucleated RBC Nucleated RBC % (auto) Anion Gap Estim Creat Clear Calc Estimated GFR Random Glucose Lactic Acid Lactic Acid F/U @ 2Hr 3.0 H* Lactic Acid F/U @ 4Hr 4.7 H* Calcium Troponin I High Sens COVID-19 ([facility]MA) COVID-19 Clin Com Imaging Radiologist's Impressions: Impressions Chest X-Ray 10/03/21 17:55 IMPRESSION: Mild elevated left hemidiaphragm. Platelike atelectasis right midlung. Post surgical changes left midlung. There is mild dorsal spine spondylosis. Assessment and Plan (1) Acute exacerbation of chronic obstructive pulmonary disease: Status: Acute (2) Lactic acidosis: Status: Acute (3) Leukocytosis: Status: Acute (4) Elevated troponin: Status: Acute Plan This 70-year-old female with past medical history of COPD who presents to the hospital with complaints of shortness of breath cough and sputum production # acute COPD exacerbation - likely secondary to viral infection - pneumonia less likely, chest x-ray does not show any infiltrates or consolidation - leukocytosis likely secondary to steroid use - whole treat with Solu-Medrol IV b.i.d., DuoNeb p.r.n. as well as scheduled - azithromycin in the setting of history of COPD # leukocytosis - most likely secondary to steroid use - patient does not appear to have pneumonia - chest x-ray shows atelectasis, patient afebrile - azithromycin for COPD exacerbation - follow CBC # lactic acidosis - likely secondary to breathing treatment - IV fluids - trend # elevated troponin - denies any chest pain - EKG showed normal sinus rhythm and nonspecific T-wave abnormality - will trend # ALYSIA - compliant with CPAP - CPAP at bedtime #DM - hold oral antihyperglycemics - continue home Lantus - low-dose sliding scale insulin - diabetic diet # hypertension - significantly elevated - resume home medications # history of PE - continue Eliquis DVT prophylaxis: Eliquis # Quality Stroke Does the patient have a stroke diagnosis?: No VTE Prior VTE?: No VTE Risk Level:: Surgical - very high VTE Device Contraindication: Treatment Not Indicated VTE Drug Contraindication: N/A - Med Ordered
[2021-10-04 06:12] LABS: Basophils Percent Auto 0.1 % (0-2); Hematocrit 37.9 % (37.0-47.0); Imm Gran Abs Auto 0.07 X10*3/uL (0.00-0.03); Imm Gran Pct Auto 0.5 % (0.0-0.4); Lymphocytes Absolute Auto 0.7 X10*3/uL (1.2-4.9); Lymphocytes Percent Auto 5.5 % (20-40); MANUAL DIFF FLAG SCAN; Mean Corpuscular HGB Conc 31.7 g/dl (31.0-35.0); Mean Corpuscular Hemoglobin 25.8 pg (27.0-33.0); Mean Corpuscular Volume 81.3 fL (80.0-98.0); Mean Platelet Volume 10.2 fL (9.4-12.3); Monocytes Absolute Auto 0.3 X10*3/uL (0.1-1.2); Monocytes Percent Auto 2.4 % (2-11); Neutrophils Absolute Auto 12.2 x10*3/uL (2.0-8.3); Neutrophils Percent Auto 91.5 % (45-73); Platelet Count 284 X10*3/uL (160-400); Red Blood Count 4.66 X10*6/uL (4.20-5.50); Red Cell Distribution Width 16.1 % (11.0-16.0); SCAN SMEAR FLAG 1; White Blood Count 13.3 X10*3/uL (4.8-10.8)
[2021-10-04 06:43] LABS: Troponin-I High Sensitivity 60.1 ng/L (<3.5-17.0)
[2021-10-04 06:50] LABS: Anion Gap 16 (12-20); Blood Urea Nitrogen 27 mg/dL (9-16); Calcium 8.5 mg/dL (8.4-10.2); Carbon Dioxide 26 mmol/L (22-29); Chloride 101 mmol/L (96-108); Creatinine Clr Calc Pharmacy 56.3; Estimated Glomerular Filt Rate 54; Glucose Random 325 mg/dL (60-115); Potassium 3.8 mmol/L (3.3-5.1); Sodium 139 mmol/L (135-145)
[2021-10-04 07:18] LABS: SLIDE REVIEW VERIFIED
--- NOTE | 2021-10-04 07:37 | P.PNIM_ITS ---
Subjective Subjective Date of Service: 10/04/21 Interval History: copd, Review of Systems Shortness of breath similar to yesterday. Has cough denies any chest pain but has some upper abdominal discomfort,lower chest wall pain Physical Exam Verdana 4l Vital Signs: Verdana 4d Verdana 4d Vital Signs: Verdana 4d Verdana 4Bd Last Vital Signs Verdana 4d Soap Worker New 4d Soap Worker New 4d Temp 98.2 F 10/04/21 01:59 Soap Worker New 4d Pulse 105 H 10/04/21 01:59 Soap Worker New 4d Resp 20 10/04/21 01:59 BP 150/80 H 10/04/21 01:59 Pulse Ox 98 10/04/21 01:59 BMI result Body Mass Index 36.0 physical exam: Appearance: Alert.? Oriented X3.? not in distress.? Eyes: Pupils equal, round and reactive to light.? Sclera nonicteric.? ENT: Pharynx normal.? Moist mucous membranes. cvs: rrr, [id number] , no murmur res: air entry seems similar as per admission,has b/l wheezing abd: no rebound or guarding ,nt, bs present. ext pulses present , no cyanosis ,no edema. neuro: axo3 , nonfocal. Objective Data Active Medications Acetaminophen (Acetaminophen 325 Mg Tablet) 650 mg PO Q6H PRN PRN Reason: Pain, Mild (Pain Scale 1-3) Last Admin: 10/04/21 00:17 Dose: 650 mg Documented by: MARIXA Albuterol/Ipratropium (Albuterol/Iprat 2.5/0.5mg 3 Ml Ampul.Neb) 3 ml INHALE Q4H PRN PRN Reason: Shortness of Breath/Wheezing Albuterol/Ipratropium (Albuterol/Iprat 2.5/0.5mg 3 Ml Ampul.Neb) 3 ml INHALE RQ4H WHILE AWAKE LOU Apixaban (Apixaban 5 Mg Tablet) 5 mg PO BID LOU Atorvastatin Calcium (Atorvastatin Calcium 40 Mg Tablet) 40 mg PO BEDTIME LOU Buspirone HCl (Buspirone Hcl 5 Mg Tablet) 5 mg PO DAILY LOU Diltiazem HCl (Diltiazem Hcl Cd 240 Mg Cap.Er.Deg) 240 mg PO DAILY LOU; Pro tocol Docusate Sodium (Docusate Sodium 100 Mg Capsule) 100 mg PO DAILY PRN PRN Reason: Constipation Escitalopram Oxalate (Escitalopram Oxalate 20 Mg Tablet) 20 mg PO DAILY [facility] Furosemide (Furosemide 20 Mg Tablet) 20 mg PO DAILY [facility]; Protocol Guaifenesin (Guaifenesin 100 Mg/5 Ml Liquid) 5 ml PO Q4H PRN PRN Reason: cough Hydrochlorothiazide (Hydrochlorothiazide 25 Mg Tablet) 25 mg PO DAILY [facility] Azithromycin 500 mg/ Sodium (Chloride) 250 mls @ 125 mls/hr IV Q24H [facility] Lactated Ringer's (Lr) 1,000 mls @ 100 mls/hr IVCONT .Q10H [facility] Last Admin: 10/04/21 03:09 Dose: 100 mls/hr Documented by: DANIEL Insulin Glargine (Insulin Glargine,Hum.Rec.Anlog 100 Unit/Ml 10 Ml Vial) 50 unit SUBCUT DAILY [facility] Melatonin (Melatonin 3 Mg Tablet) 6 mg PO BEDTIME PRN PRN Reason: Sleep Methylprednisolone Sodium Succinate (Methylprednisolone Sod Succ 40 Mg/Ml Vial) 40 mg IVPUSH Q12H [facility] Last Admin: 10/03/21 23:27 Dose: 40 mg Documented by: MARIXA Metoprolol Tartrate (Metoprolol Tartrate 50 Mg Tablet) 50 mg PO BID [facility]; Protocol Omeprazole (Omeprazole 20 Mg Capsule.Dr) 20 mg PO BID@0630,1630 [facility] Ondansetron HCl (Ondansetron Hcl 4 Mg/2 Ml Vial) 4 mg IVPUSH Q8H PRN PRN Reason: Nausea and Vomiting Pharmacy Consult (Consult Rx Perform Med Rec) 1 each MISCELLANE ONCE PRN PRN Reason: Consult order Sodium Chloride (0.9 % Sodium Chloride Flush 3 Ml Syringe) 3 ml IVFLUSH QSHIFT [facility] Last Admin: 10/04/21 00:08 Dose: Not Given Documented by: MARIXA Non-Admin Reason: Med Not Available Vitamin D (Cholecalciferol (Vitamin D3) 25 Mcg Tablet) 50 mcg PO DAILY [facility] Labs CBC & Chem 7: 10/04/21 05:47 10/04/21 05:47 Labs: Laboratory Results - last 24 hr 10/03/21 10/03/21 10/03/21 17:58 17:58 17:58 MCV 80.2 MCH 25.5 L MCHC 31.8 RDW 15.8 Plt Count 299 MPV 10.3 Immature Gran % (Auto) 0.6 H Neut % (Auto) 89.1 H Lymph % (Auto) 5.3 L [place]ry % (Auto) 4.8 Eos % (Auto) 0.0 Baso % (Auto) 0.2 Lymph # (Auto) 0.9 L [place] # (Auto) 0.8 Eos # (Auto) 0.0 Baso # (Auto) 0.0 Abs Immat Gran (auto) 0.10 H Absolute Neuts (auto) 14.5 H Absolute Nucleated RBC 0.000 Nucleated RBC % (auto) 0.0 Smear Tech's Comments Anion Gap 17 Estim Creat Clear Calc 39.3 Estimated GFR 37 Random Glucose 324 H Lactic Acid Lactic Acid F/U @ 2Hr Lactic Acid F/U @ 4Hr Calcium 9.0 Troponin I High Sens COVID-19 ([facility]MA) Negative COVID-19 Clin Com See Note 10/03/21 10/03/21 10/03/21 17:58 20:17 21:31 MCV MCH MCHC RDW Plt Count MPV Immature Gran % (Auto) Neut % (Auto) Lymph % (Auto) Hendry % (Auto) Eos % (Auto) Baso % (Auto) Lymph # (Auto) Hendry # (Auto) Eos # (Auto) Baso # (Auto) Abs Immat Gran (auto) Absolute Neuts (auto) Absolute Nucleated RBC Nucleated RBC % (auto) Smear Tech's Comments Anion Gap Estim Creat Clear Calc Estimated GFR Random Glucose Lactic Acid 2.7 H* Lactic Acid F/U @ 2Hr Lactic Acid F/U @ 4Hr Calcium Troponin I High Sens 18.6 H D 31.3 H D COVID-19 ([facility]MA) COVID-[employer] Com 10/03/21 10/04/21 10/04/21 22:37 02:04 05:47 MCV 81.3 MCH 25.8 L MCHC 31.7 RDW 16.1 H Plt Count 284 MPV 10.2 Immature Gran % (Auto) 0.5 H Neut % (Auto) 91.5 H Lymph % (Auto) 5.5 L [place] % (Auto) 2.4 Eos % (Auto) 0.0 Baso % (Auto) 0.1 Lymph # (Auto) 0.7 L [place] # (Auto) 0.3 Eos # (Auto) 0.0 Baso # (Auto) 0.0 Abs Immat Gran (auto) 0.07 H Absolute Neuts (auto) 12.2 H Absolute Nucleated RBC 0.000 Nucleated RBC % (auto) 0.0 Smear Tech's Comments VERIFIED Anion Gap Estim Creat Clear Calc Estimated GFR Random Glucose Lactic Acid Lactic Acid F/U @ 2Hr 3.0 H* Lactic Acid F/U @ 4Hr 4.7 H* Calcium Troponin I High Sens COVID-19 ([facility]MA) COVID-19 Clin EndoStim 10/04/21 10/04/21 05:47 05:47 MCV MCH MCHC RDW Plt Count MPV Immature Gran % (Auto) Neut % (Auto) Lymph % (Auto) Hendry % (Auto) Eos % (Auto) Baso % (Auto) Lymph # (Auto) [place]ry # (Auto) Eos # (Auto) Baso # (Auto) Abs Immat Gran (auto) Absolute Neuts (auto) Absolute Nucleated RBC Nucleated RBC % (auto) Smear Tech's Comments Anion Gap 16 Estim Creat Clear Calc 56.3 Estimated GFR 54 Random Glucose 325 H Lactic Acid Lactic Acid F/U @ 2Hr Lactic Acid F/U @ 4Hr Calcium 8.5 Troponin I High Sens 60.1 H* D COVID-19 ([facility]) COVID-19 [employer] Assessment and Plan (1) Elevated troponin: Status: Acute (2) Acute exacerbation of chronic obstructive pulmonary disease: Status: Acute (3) Hypertension: Status: Acute Plan 70-year-old female with past medical history of COPD who presents to the hospital with complaints of shortness of breath cough and sputum production 1. acute COPD exacerbation - likely secondary to viral infection - pneumonia less likely, chest x-ray does not show any infiltrates or consolidation - leukocytosis likely secondary to steroid use - whole treat with Solu-Medrol IV b.i.d., DuoNeb p.r.n. as well as scheduled - azithromycin in the setting of history of COPD 2. leukocytosis- imprvinmost likely secondary to steroid use patient does not appear to have pneumonia chest x-ray shows atelectasis, patient afebrile azithromycin for COPD exacerbation lactic acidosis- likely secondary to breathing treatment 3. elevated troponin- denies any chest pain- EKG showed normal sinus rhythm and nonspecific T-wave abnormality slightly elevated trend villasenor 18.6-31.3-60 her workup in cardio clinic -bnp was normal As per daughter - cardiology suggested stress test few days ago when she was in the clinic. Will add cardiology evaluation. 4. ALYSIA - compliant with CPAP - CPAP at bedtime 5.DM - hold oral antihyperglycemics - continue home Lantus - low-dose sliding scale insulin - diabetic diet 6. hypertension - significantly elevated- off fluids -started on hctz , cardizem , metoprolol, may need to add hydratlazine iv prn if still elevated - resume home medications 7. history of PE - continue Eliquis DVT prophylaxis:? Eliquis Quality Stroke Does the patient have a stroke diagnosis?: No VTE Prior VTE?: No VTE Risk Level:: Surgical - very high VTE Device Contraindication: Treatment Not Indicated VTE Drug Contraindication: N/A - Med Ordered
[2021-10-04] MEDS: Albuterol/Iprat 2.5/0.5MG 3 ML AMPUL.NEB INHALE ×3 (08:34→19:56)
[2021-10-04] MEDS: Omeprazole 20 MG CAPSULE.DR PO ×2 (09:28→17:15)
[2021-10-04] MEDS: Furosemide 20 MG TABLET PO (09:28)
[2021-10-04] MEDS: 0.9 % Sodium Chloride Flush 3 ML SYRINGE IVFLUSH ×3 (09:28→19:55)
[2021-10-04] MEDS: Cholecalciferol (Vitamin D3) 25 MCG TABLET 50 MCG PO (09:28)
[2021-10-04] MEDS: dilTIAZem HCL CD 240 MG CAP.ER.DEG PO (09:29)
[2021-10-04] MEDS: busPIRone HCl 5 MG TABLET PO (09:29)
[2021-10-04] MEDS: hydroCHLOROthiazide 25 MG TABLET PO (09:29)
[2021-10-04] MEDS: Escitalopram Oxalate 20 MG TABLET PO (09:29)
[2021-10-04] MEDS: methylPREDNISolone Sod Succ 40 MG/ML VIAL IVPUSH ×2 (09:30→22:13)
[2021-10-04] MEDS: Apixaban 5 MG TABLET PO ×2 (09:30→19:55)
[2021-10-04] MEDS: Metoprolol Tartrate 50 MG TABLET PO ×2 (09:30→19:54)
--- NOTE | 2021-10-04 10:42 | MHC.CM.PN ---
PATIENT LIVES WITH HER DAUGHTER AND GRAND CHILD HCP ON FILE AND VERIFIED SHE IS ON HOME O2 AND HAS AMPLE SUPPLY PATIENT SAYS THAT SHE HAS HELP IN THE HOME THAT OFFERS RN AND MD VISITS IF NEEDED. SHE ALSO REPORTS THAT AN XRAY WAS PERFORMED IN HER HOME. SHE BELIEVES THAT THE AGENCY NAME IS THE MELT, BUT WILL ASK HER DAUGHTER ABOUT THIS. PATIENT HAS BEEN VACCINATED AGAINST COVID-19 WITH THE MODERNA SERIES 10/23/20 11/20/20 07/24/21
[2021-10-04] MEDS: Insulin Lispro 100 UNIT/ML 3 ML VIAL SUBCUT ×3 (12:32→22:13)
[2021-10-04 13:09] LABS: Glucose, Whole Blood 329 mg/dL (60-115)
[2021-10-04 16:54] LABS: Glucose, Whole Blood 299 mg/dL (60-115)
[2021-10-04 19:49] LABS: Glucose, Whole Blood 303 mg/dL (60-115)
[2021-10-04] MEDS: Azithromycin 500 MG in 0.9 % Sodium Chloride 250 ML 125 MG IV (19:54)
[2021-10-04] MEDS: Atorvastatin Calcium 40 MG TABLET PO (19:54)
[2021-10-04] MEDS: Insulin Glargine,Hum.rec.anlog 100 UNIT/ML 10 ML VIAL 50 UNIT SUBCUT (22:13)
[2021-10-05] VITALS (12 sets, daily range): BP systolic 142–186; BP diastolic 58–90; PULSE 67–88; RESP 18–20; TEMP 36.1–36.9; O2SAT 92–95
[2021-10-05] MEDS: Omeprazole 20 MG CAPSULE.DR PO (05:41)
[2021-10-05 07:59] LABS: Glucose, Whole Blood 233 mg/dL (60-115)
[2021-10-05] MEDS: Insulin Lispro 100 UNIT/ML 3 ML VIAL SUBCUT ×4 (08:07→21:41)
[2021-10-05] MEDS: Cholecalciferol (Vitamin D3) 25 MCG TABLET 50 MCG PO (08:10)
[2021-10-05] MEDS: dilTIAZem HCL CD 240 MG CAP.ER.DEG PO (08:10)
[2021-10-05] MEDS: hydroCHLOROthiazide 25 MG TABLET PO (08:10)
--- NOTE | 2021-10-05 08:10 | P.PNIM_ITS ---
Subjective Subjective Date of Service: 10/06/21 Interval History: copd excerebation Review of Systems still sob persistent abdominal pain specially epigastric area. denies any chest pain or fever or chills Physical Exam Verdana 4l Vital Signs: Verdana 4d Verdana 4d Vital Signs: Verdana 4d Verdana 4Bd Last Vital Signs Verdana 4d Mud Worker New 4d Mud Worker New 4d Temp 97.2 F 10/05/21 08:00 Mud Worker New 4d Pulse 72 10/05/21 08:00 Mud Worker New 4d Resp 18 10/05/21 08:00 BP 175/74 H 10/05/21 08:00 Pulse Ox 95 10/05/21 08:00 BMI result Body Mass Index 36.0 Appearance: Alert.? Oriented X3.? not in distress.? Eyes: Pupils equal, round and reactive to light.? Sclera nonicteric.? ENT: Pharynx normal.? Moist mucous membranes. cvs: rrr, [id number] , no murmur res: air entry seems similar as per admission,has b/l wheezing abd: no rebound or guarding , persistent epigastric discomfort, bs present. ext pulses present , no cyanosis ,no edema. neuro: axo3 , nonfocal. Objective Data Active Medications Acetaminophen (Acetaminophen 325 Mg Tablet) 650 mg PO Q6H PRN PRN Reason: Pain, Mild (Pain Scale 1-3) Last Admin: 10/04/21 09:45 Dose: 650 mg Documented by: GARRETT Albuterol/Ipratropium (Albuterol/Iprat 2.5/0.5mg 3 Ml Ampul.Neb) 3 ml INHALE Q4H PRN PRN Reason: Shortness of Breath/Wheezing Albuterol/Ipratropium (Albuterol/Iprat 2.5/0.5mg 3 Ml Ampul.Neb) 3 ml INHALE RQ4H WHILE AWAKE [facility] Last Admin: 10/05/21 07:34 Dose: Not Given Documented by: DEBBIE Non-Admin Reason: pt unavail Apixaban (Apixaban 5 Mg Tablet) 5 mg PO BID [facility] Last Admin: 10/04/21 19:55 Dose: 5 mg Documented by: BRYCEILLuz Atorvastatin Calcium (Atorvastatin Calcium 40 Mg Tablet) 40 mg PO BEDTIME [facility] Last Admin: 10/04/21 19:54 Dose: 40 mg Documented by: BRYCEILLuz Buspirone HCl (Buspirone Hcl 5 Mg Tablet) 5 mg PO DAILY [facility] Last Admin: 10/04/21 09:29 Dose: 5 mg Documented by: GARRETT Diltiazem HCl (Diltiazem Hcl Cd 240 Mg Cap.Er.Deg) 240 mg PO DAILY [facility]; Protocol Last Admin: 10/04/21 09:29 Dose: 240 mg Documented by: GARRETT Docusate Sodium (Docusate Sodium 100 Mg Capsule) 100 mg PO DAILY PRN PRN Reason: Constipation Escitalopram Oxalate (Escitalopram Oxalate 20 Mg Tablet) 20 mg PO DAILY [facility] Last Admin: 10/04/21 09:29 Dose: 20 mg Documented by: GARRETT Furosemide (Furosemide 20 Mg Tablet) 20 mg PO DAILY [facility]; Protocol Last Admin: 10/04/21 09:28 Dose: 20 mg Documented by: GARRETT Guaifenesin (Guaifenesin 100 Mg/5 Ml Liquid) 5 ml PO Q4H PRN PRN Reason: cough Hydralazine HCl (Hydralazine Hcl 20 Mg/Ml Vial) 5 mg IVPUSH Q4H PRN; Protocol PRN Reason: hypertension (sbp>160) Hydrochlorothiazide (Hydrochlorothiazide 25 Mg Tablet) 25 mg PO DAILY [facility] Last Admin: 10/04/21 09:29 Dose: 25 mg Documented by: GARRETT Azithromycin 500 mg/ Sodium (Chloride) 250 mls @ 125 mls/hr IV Q24H [facility] Last Infusion: 10/04/21 22:08 Dose: 0 mls/hr Documented by: NIRU Insulin Glargine (Insulin Glargine,Hum.Rec.Anlog 100 Unit/Ml 10 Ml Vial) 50 uni t SUBCUT BEDTIME [facility] Last Admin: 10/04/21 22:13 Dose: 50 unit Documented by: NIRU Insulin Human Lispro (Insulin Lispro 100 Unit/Ml 3 Ml Vial) 0 unit SUBCUT QIDACHS [facility]; Protocol Last Admin: 10/05/21 08:07 Dose: 4 unit Documented by: GARRETT Melatonin (Melatonin 3 Mg Tablet) 6 mg PO BEDTIME PRN PRN Reason: Sleep Methylprednisolone Sodium Succinate (Methylprednisolone Sod Succ 40 Mg/Ml Vial) 40 mg IVPUSH Q12H [facility] Last Admin: 10/04/21 22:13 Dose: 40 mg Documented by: NIRU Metoprolol Tartrate (Metoprolol Tartrate 50 Mg Tablet) 50 mg PO BID [facility]; Protocol Last Admin: 10/04/21 19:54 Dose: 50 mg Documented by: NIRU Omeprazole (Omeprazole 20 Mg Capsule.Dr) 20 mg PO BID@0630,1630 [facility] Last Admin: 10/05/21 05:41 Dose: 20 mg Documented by: NIRU Ondansetron HCl (Ondansetron Hcl 4 Mg/2 Ml Vial) 4 mg IVPUSH Q8H PRN PRN Reason: Nausea and Vomiting Pharmacy Consult (Consult Rx Perform Med Rec) 1 each MISCELLANE ONCE PRN PRN Reason: Consult order Sodium Chloride (0.9 % Sodium Chloride Flush 3 Ml Syringe) 3 ml IVFLUSH QSHIFT [facility] Last Admin: 10/04/21 19:55 Dose: 3 ml Documented by: NIRU Vitamin D (Cholecalciferol (Vitamin D3) 25 Mcg Tablet) 50 mcg PO DAILY [facility] Last Admin: 10/04/21 09:28 Dose: 50 mcg Documented by: GARRETT Labs CBC & Chem 7: 10/04/21 05:47 10/04/21 05:47 Labs: Laboratory Results - last 24 hr 10/04/21 10/04/21 10/04/21 12:13 16:13 19:20 POC Glucose 329 H 299 H 303 H 10/05/21 07:50 POC Glucose 233 H Microbiology Microbiology Results: Microbiology 10/03/21 19:15 Blood Culture - Preliminary Blood - Venous No growth after 24 hours. 10/03/21 17:58 Blood Culture - Preliminary Blood - Venous No growth after 24 hours. Assessment and Plan (1) Elevated troponin: Status: Acute (2) Leukocytosis: Status: Acute (3) Acute exacerbation of chronic obstructive pulmonary disease: Status: Acute Plan 70-year-old female with past medical history of COPD who presents to the hospital with complaints of shortness of breath cough and sputum production 1. acute COPD exacerbation:seems to be improving- likely secondary to viral infection - pneumonia less likely, chest x-ray does not show any infiltrates or consoli dation - leukocytosis likely secondary to steroid use continue DuoNeb p.r.n. , switched to po steriods - azithromycin in the setting of history of COPD 2. leukocytosis- imprvinmost likely secondary to steroid use patient does not appear to have pneumonia chest x-ray shows atelectasis, patient afebrile azithromycin for COPD exacerbation lactic acidosis- likely secondary to breathing treatment 3. elevated troponin- denies any chest pain- EKG showed normal sinus rhythm and nonspecific T-wave abnormality slightly elevated trend villasenor 18.6-31.3-60 her workup in cardio clinic -bnp was normal ? As per daughter - cardiology suggested stress test few days ago when she was in the clinic. ?cardiology evaluation noted -further workup outpatiently. 4. ALYSIA - compliant with CPAP - CPAP at bedtime 5.DM - hold oral antihyperglycemics - continue home Lantus - low-dose sliding scale insulin - diabetic diet 6. hypertension: slightly elevated - significantly elevated- off fluids - on hctz , cardizem ,further adjusted metoprolol 100 mg bid, may need to add hydratlazine iv prn if still elevated - resume home medications 7. history of PE - continue Eliquis 8. abd pain mostly upper abd no nausea adjusted ppi added famotidine iv GI eval DVT prophylaxis:? Eliquis Quality Stroke Does the patient have a stroke diagnosis?: No VTE Prior VTE?: No VTE Risk Level:: Surgical - very high VTE Device Contraindication: Treatment Not Indicated VTE Drug Contraindication: N/A - Med Ordered
[2021-10-05] MEDS: Furosemide 20 MG TABLET PO (08:11)
[2021-10-05] MEDS: Apixaban 5 MG TABLET PO ×2 (08:11→21:40)
[2021-10-05] MEDS: Metoprolol Tartrate 50 MG TABLET PO (08:11)
[2021-10-05] MEDS: Escitalopram Oxalate 20 MG TABLET PO (08:11)
[2021-10-05] MEDS: busPIRone HCl 5 MG TABLET PO (08:11)
[2021-10-05] MEDS: 0.9 % Sodium Chloride Flush 3 ML SYRINGE IVFLUSH ×2 (08:12→17:28)
[2021-10-05 09:23] LABS: B Type Natriuretic Peptide 241 pg/mL (<100)
[2021-10-05] MEDS: methylPREDNISolone Sod Succ 40 MG/ML VIAL IVPUSH (10:10)
--- NOTE | 2021-10-05 11:39 | P.CONCA_ITS ---
History of Present Illness History of Present Illness Date of Service: 10/05/21 Requesting physician: Kenrick Millard Consult reason: troponin elevation Chief complaint: COPD Exacerbation Narrative: I was requested to see Saima in cardiology consultation today because of epigastric discomfort. Patient present worsening shortness of breath noted to have COPD exacerbation with lactic acidosis and leukocytosis. Admitted and currently feeling well. She was also complaining of epigastric pain radiating up to her sternum. This pain she says got better with GI medications. This pain was continue since severe in nature. Her troponin is only minimally elevated at this point time. There is clear rise. EKG does not show any acute ischemic changes. Currently still complaining of mild epigastric discomfort. Patient has underlying history of COPD, untreated sleep apnea. Morbid obesity. She has prior history of pulmonary embolism on oral anticoagulation. She does have nonobstructive CAD by cardiac catheterization in 2006. She has underlying hypertension diabetes which is uncontrolled and hyperlipidemia. Review of Systems Verdana 4l Constitutional: Verdana 4d Constitutional: Verdana 4d Verdana 4d Reports malaise and Reports snoring Verdana 4l Eyes: Verdana 4d Verdana 4d Eyes: Verdana 4d Reports no additional eye complaints Verdana 4l Cardiovascular: Verdana 4d Cardiovascular: Verdana 4d Verdana 4d Reports Epigastric Pain, Denies lightheadedness, Denies Loss of Consciousness, Denies palpitations and Reports dyspnea on exertion Verdana 4l Respiratory: Verdana 4d Verdana 4d Respiratory: Verdana 4d Reports change in phlegm color, Reports cough, Reports dyspnea on exertion and Reports snoring Verdana 4l Gastrointestinal: Verdana 4d Gastrointestinal: Verdana 4d Verdana 4d Reports no additional gastrointestinal complaints Verdana 4l Genitourinary: Verdana 4d Verdana 4d Genitourinary: Verdana 4d Reports no additional female genitourinary complaints Verdana 4l Musculoskeletal: Verdana 4d Musculoskeletal: Verdana 4d Verdana 4d Reports no additional musculoskeletal complaints Verdana 4l Integumentary/Breasts: Verdana 4d Skin/Breast: Verdana 4d Verdana 4d Reports system reviewed and no additional complaints, except as docu Verdana 4l Neurologic: Verdana 4d Reports system reviewed and no additional complaints, except as documented Verdana 4l Psychiatric: Verdana 4d Verdana 4d Psychiatric: Verdana 4d Reports no additional psychiatric complaints Verdana 4l Endocrine: Verdana 4d Verdana 4d Endocrine: Verdana 4d Reports no additional endocrine complaints and Denies palpitations PMFSH Past Medical History Medical History CAD (coronary artery disease) COPD (chronic obstructive pulmonary disease) Diabetes type 2, uncontrolled Dyslipidemia 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 Father No problems noted. Surgical History Surgical History History of cardiac cath History of carpal tunnel surgery History of cholecystectomy History of lobectomy of lung Status post tracheoplasty Social History Social History Household Members: Family Housing: House Do you presently have visiting nurse or other home services: Yes Alcohol intake: current Alcohol intake frequency: holidays/special occasions only Patient Tobacco Use Status: Former Tobacco user Quit Date: 1993 Smoked: 10 +/- Use of substances other than those prescribed or required for medical reasons: No Currently Displaying Signs/Symptoms of Drug Intoxication Withdrawal: No Have you been hit, kicked, punched, or otherwise hurt by someone within the past year? If so, by whom?: No Do you feel safe in your current relationship?: No Is there a partner from a previous relationship who is making you feel unsafe now?: No Advance Directives: No Advance Directives Information Provided: No Do you have thoughts of harming others: None Do you have a plan to hurt others: No Plan Recently lost weight without trying: Yes How much weight loss: 2-13 pounds Eating poorly because of decreased appetite: No Nutrition screen score: 3 Meds Allergies Allergy/AdvReac Type Severity Reaction Status Date / Time Latex, Natural Allergy Severe blisters Verified 09/30/21 13:06 Rubber Sulfa (Sulfonamide Allergy Mild ITCHING, Verified 09/30/21 13:06 Antibiotics) rash [SULFA (SULFONAMIDE ANTIBIOTICS)] nystatin Allergy Unknown rash Verified 09/30/21 13:06 isosorbide [From AdvReac Unknown HEADACHES, Verified 09/30/21 13:06 Imdur] headache tizanidine AdvReac Unknown weakness, Verified 09/30/21 13:06 Hellucination Active Medications: Current Medications Acetaminophen (Acetaminophen 325 Mg Tablet) 650 mg PO Q6H PRN PRN Reason: Pain, Mild (Pain Scale 1-3) Last Admin: 10/04/21 09:45 Dose: 650 mg Documented by: Albuterol/Ipratropium (Albuterol/Iprat 2.5/0.5mg 3 Ml Ampul.Neb) 3 ml INHALE Q4H PRN PRN Reason: Shortness of Breath/Wheezing Albuterol/Ipratropium (Albuterol/Iprat 2.5/0.5mg 3 Ml Ampul.Neb) 3 ml INHALE RQ4H WHILE AWAKE [facility] Last Admin: 10/05/21 11:33 Dose: Not Given Documented by: Apixaban (Apixaban 5 Mg Tablet) 5 mg PO BID [facility] Last Admin: 10/05/21 08:11 Dose: 5 mg Documented by: Atorvastatin Calcium (Atorvastatin Calcium 40 Mg Tablet) 40 mg PO BEDTIME [facility] Last Admin: 10/04/21 19:54 Dose: 40 mg Documented by: Buspirone HCl (Buspirone Hcl 5 Mg Tablet) 5 mg PO DAILY [facility] Last Admin: 10/05/21 08:11 Dose: 5 mg Documented by: Diltiazem HCl (Diltiazem Hcl Cd 240 Mg Cap.Er.Deg) 240 mg PO DAILY [facility]; Protocol Last Admin: 10/05/21 08:10 Dose: 240 mg Documented by: Docusate Sodium (Docusate Sodium 100 Mg Capsule) 100 mg PO DAILY PRN PRN Reason: Constipation Escitalopram Oxalate (Escitalopram Oxalate 20 Mg Tablet) 20 mg PO DAILY [facility] Last Admin: 10/05/21 08:11 Dose: 20 mg Documented by: Furosemide (Furosemide 20 Mg Tablet) 20 mg PO DAILY [facility]; Protocol Last Admin: 10/05/21 08:11 Dose: 20 mg Documented by: Guaifenesin (Guaifenesin 100 Mg/5 Ml Liquid) 5 ml PO Q4H PRN PRN Reason: cough Hydralazine HCl (Hydralazine Hcl 20 Mg/Ml Vial) 5 mg IVPUSH Q4H PRN; Protocol PRN Reason: hypertension (sbp>160) Hydrochlorothiazide (Hydrochlorothiazide 25 Mg Tablet) 25 mg PO DAILY [facility] Last Admin: 10/05/21 08:10 Dose: 25 mg Documented by: Azithromycin 500 mg/ Sodium (Chloride) 250 mls @ 125 mls/hr IV Q24H [facility] Last Infusion: 10/04/21 22:08 Dose: Infused Documented by: Insulin Glargine (Insulin Glargine,Hum.Rec.Anlog 100 Unit/Ml 10 Ml Vial) 50 unit SUBCUT BEDTIME [facility] Last Admin: 10/04/21 22:13 Dose: 50 unit Documented by: Insulin Human Lispro (Insulin Lispro 100 Unit/Ml 3 Ml Vial) 0 unit SUBCUT QIDACHS [facility]; Protocol Last Admin: 10/05/21 08:07 Dose: 4 unit Documented by: Melatonin (Melatonin 3 Mg Tablet) 6 mg PO BEDTIME PRN PRN Reason: Sleep Methylprednisolone Sodium Succinate (Methylprednisolone Sod Succ 40 Mg/Ml Vial) 40 mg IVPUSH Q12H [facility] Last Admin: 10/05/21 10:10 Dose: 40 mg Documented by: Metoprolol Tartrate (Metoprolol Tartrate 50 Mg Tablet) 50 mg PO BID [facility]; Protocol Last Admin: 10/05/21 08:11 Dose: 50 mg Documented by: Omeprazole (Omeprazole 20 Mg Capsule.Dr) 20 mg PO BID@0630,1630 [facility] Last Admin: 10/05/21 05:41 Dose: 20 mg Documented by: Ondansetron HCl (Ondansetron Hcl 4 Mg/2 Ml Vial) 4 mg IVPUSH Q8H PRN PRN Reason: Nausea and Vomiting Pharmacy Consult (Consult Rx Perform Med Rec) 1 each MISCELLANE ONCE PRN PRN Reason: Consult order Sodium Chloride (0.9 % Sodium Chloride Flush 3 Ml Syringe) 3 ml IVFLUSH QSHIFT [facility] Last Admin: 10/05/21 08:12 Dose: 3 ml Documented by: Vitamin D (Cholecalciferol (Vitamin D3) 25 Mcg Tablet) 50 mcg PO DAILY [facility] Last Admin: 10/05/21 08:10 Dose: 50 mcg Documented by: Home Medications Medication Instructions Recorded Confirmed Last Taken Type guaifenesin 100 100 mg PO Q4H 12/09/20 10/03/21 10/02/21 History mg/5 mL oral PRN liquid metoprolol 50 mg PO BID 12/25/20 10/03/21 10/02/21 History tartrate 50 mg tablet apixaban 5 mg 5 mg PO BID 09/30/21 10/03/21 10/02/21 History tablet (Eliquis) furosemide 20 mg 20 mg PO DAILY 09/30/21 10/03/21 10/02/21 History tablet melatonin 5 mg 5 mg PO BEDTIME 09/30/21 10/03/21 10/02/21 History capsule PRN cap chlorthalidone 25 25 mg PO DAILY 10/03/21 10/03/21 10/02/21 History mg tablet empagliflozin 10 1 tab PO DAILY 10/03/21 10/03/21 10/02/21 History mg tablet (Jardiance) insulin glargine 50 unit SUBCUT 10/03/21 10/03/21 10/02/21 History 100 unit/mL (3 DAILY mL) subcutaneous pen (Lantus Solostar U-100 Insulin) insulin lispro See Protocol 10/03/21 10/03/21 10/02/21 History 200 unit/mL (3 SUBCUT mL) DIRECTED subcutaneous pen prednisone 20 mg 1 tab PO DAILY 10/03/21 10/03/21 Unknown History tablet Physical Exam Verdana 4l Vital Signs: Verdana 4d Verdana 4d Vital Signs: Verdana 4d Verdana 4Bd Last Vital Signs Verdana 4d Senior Sql Server Developer New 4d Senior Sql Server Developer New 4d Temp 98.5 F 10/05/21 11:30 Senior Sql Server Developer New 4d Pulse 72 10/05/21 11:30 Senior Sql Server Developer New 4d Resp 18 10/05/21 11:30 BP 186/79 H 10/05/21 11:30 Pulse Ox 95 10/05/21 11:30 BMI result Body Mass Index 36.0 Const: General: cooperative, comfortable, alert and awake Nutritional Appearance: obese Orientation/consciousness: patient oriented x3 HENMT: Head: Yes normocephalic and Yes atraumatic Neck: Neck: Yes trachea midline, Yes supple and Yes no JVD Resp: Effort & Inspection: normal respiratory effort Auscultation: clear to auscultation bilaterally Cardio: Jugular venous distension: no JVD Palpation: normal PMI Rate: regular rate Rhythm: regular rhythm Heart sounds: S1 normal heart sound present, S2 normal heart sound present, no click, no gallops and Murmur heart sound present systolic GI: Inspection: Yes obesity Auscultation: normal bowel sounds Skin: General skin exam: no rashes or lesions noted Neuro: General: patient oriented x3 and no focal motor deficits Extrem: General: Yes no clubbing, cyanosis or edema Psych: Affect: Anxious affect present Objective Labs and Meds Result diagrams: 10/04/21 05:47 10/04/21 05:47 Lab results: Laboratory Results - last 24 hr 10/04/21 10/04/21 10/04/21 12:13 16:13 19:20 POC Glucose 329 H 299 H 303 H B-Natriuretic Peptide 10/05/21 10/05/21 07:50 08:38 POC Glucose 233 H B-Natriuretic Peptide 241 H Assessment and Plan (1) Elevated troponin: Status: Acute Elevated troponin this elderly woman present with COPD exacerbation setting of hypoxemia and lactic acid risk both which can cause elevated troponin. Unlikely to be acute coronary syndrome. Her epigastric discomfort is very atypical for myocardial ischemia. Appears to be GI related. Follow up as outpatient as planned in the past with outpatient stress test as well as echocardiogram to assess for the murmur as well as to assess for myocardial ischemia. Continue medical management. Blood pressure is not well optimized at current time. Consider switching hydrochlorothiazide to Aldactone 25 mg regimen. Blood pressure remains under control add hydralazine to her regimen. Importance of CPAP treatment was discussed with the patient. Low-salt diet to be pursued. Clinically does appear to be in overt heart failure. Will sign of the case at this point time. Re-consult and will follow as outpatient as planned. Procedures Date of Service Date of Service: 10/05/21
[2021-10-05 11:47] LABS: Glucose, Whole Blood 251 mg/dL (60-115)
[2021-10-05] MEDS: Famotidine/PF 20 MG/2 ML VIAL IVPUSH (12:44)
[2021-10-05] MEDS: hydrALAZINE HCl 20 MG/ML VIAL 5 MG IVPUSH (12:45)
[2021-10-05] MEDS: Albuterol/Iprat 2.5/0.5MG 3 ML AMPUL.NEB INHALE ×2 (15:43→19:57)
[2021-10-05 16:52] LABS: Glucose, Whole Blood 306 mg/dL (60-115)
[2021-10-05] MEDS: Acetaminophen 325 MG TABLET 650 MG PO ×2 (17:27→23:51)
[2021-10-05] MEDS: Omeprazole 40 MG CAPSULE.DR PO (17:28)
[2021-10-05] MEDS: guaiFENesin 100 MG/5 ML LIQUID PO (17:29)
--- NOTE | 2021-10-05 17:37 | PM.EVENT ---
Event Note Date of Service: 10/05/21 Event Note: GI-Consult dictated-Hx via patient and EMR. Imp: I feel her symptoms are consistent with her longstanding known history of underlying IBS. She is tolerating her diet without any N/V/diarrhea. She had 2 normal BM's today. Her abdominal exam is soft, +BS, nondistended, and NT. She had a recent colonoscopy and upper endoscopy with her primary GI MD, Dr. Luna, in [place] in 06/2021. She has had a previous CCY. Her exam and history do not suggest any new nor worrisome process at this time. Rec: Add prn dicyclomine(she describes taking that at home). Observe. I don't think any other studies are required at the present time. She states that she will F/U with Dr. Luna for her next colonoscopy. D/W patient in detail and she is comfortable with this plan. Thanks
[2021-10-05 20:44] LABS: Glucose, Whole Blood 354 mg/dL (60-115)
[2021-10-05] MEDS: Metoprolol Tartrate 100 MG TABLET PO (21:39)
[2021-10-05] MEDS: hydrALAZINE HCl 25 MG TABLET PO (21:40)
[2021-10-05] MEDS: Azithromycin 500 MG in 0.9 % Sodium Chloride 250 ML 125 MG IV (21:40)
[2021-10-05] MEDS: Atorvastatin Calcium 40 MG TABLET PO (21:40)
[2021-10-05] MEDS: Insulin Glargine,Hum.rec.anlog 100 UNIT/ML 10 ML VIAL 50 UNIT SUBCUT (21:40)
--- NOTE | 2021-10-05 22:42 | CONS_ITS ---
DATE OF SERVICE: 10/05/2021 REASON FOR CONSULTATION: Abdominal pain. HISTORY OF PRESENT ILLNESS: The patient is a 70-year-old female with a long-standing history of underlying chronic abdominal discomfort that was felt to be related to irritable bowel syndrome. Her primary GI physician is Dr. Anton Luna in [place]. She underwent an upper endoscopy and colonoscopy with him in the fall of 2020, at which time, she had multiple tubular adenomas removed. She also had an upper endoscopy at that same time, which was unremarkable. She describes that she takes dicyclomine at home for irritable bowel syndrome. I had met her in 2014 when she was admitted here and underwent an upper endoscopy, which revealed only some minimal gastritis and a hiatal hernia with biopsies at that time negative for H pylori. She was admitted here on October 04 for respiratory issues. She does think she is somewhat better in that regard. She is on antibiotic for possible pneumonia. She has been having some fairly diffuse mid abdominal discomfort, which comes and goes. However, she describes eating comfortably and denies any vomiting. She has had occasional brief episodes of nausea. She denies any significant heartburn or dysphagia. She describes 2 normal bowel movements today without any sign of hematochezia nor melena. At the present time, she feels well from a GI standpoint, although still having occasional abdominal discomfort. She denies any signs of jaundice. Of note, she is also status post previous cholecystectomy. Her medications here in the hospital include acetaminophen, albuterol inhaler p.r.n., Eliquis, atorvastatin, IV azithromycin, BuSpar, vitamin D, diltiazem, Colace, Lexapro, furosemide, hydralazine p.r.n., insulin, metoprolol, morphine p.r.n. omeprazole, Zofran, prednisone, and spironolactone. PAST MEDICAL HISTORY: She is status post surgeries including left lung surgery for lung cancer, chest surgery for tracheomalacia, cholecystectomy, and Achilles heel tendon surgery. Carpal tunnel surgery. She has sleep apnea. Insulin-dependent diabetes mellitus. COPD. Hyperlipidemia. Hypertension. Coronary artery disease. Pulmonary embolism. SOCIAL HISTORY: She stopped smoking many years ago. She is a . She does not use any significant amounts of alcohol. REVIEW OF SYSTEMS: CONSTITUTIONAL: Appetite has been good. Skin without rash. No pruritus. CARDIAC: No chest pain. PULMONARY: She does have shortness of breath and coughing, but no hemoptysis. GI: As above. FAMILY HISTORY: Noncontributory. PHYSICAL EXAMINATION: GENERAL: The patient is a pleasant, alert, comfortable-appearing female. SKIN: Warm and dry. Anicteric sclerae. CARDIAC: S1, S2. ABDOMEN: Soft and nondistended. Bowel sounds are normal. There is no focal mass, rebound, or guarding. She does have some nonspecific mild diffuse tenderness to palpation. LABORATORY DATA: White blood cell count 13.3, hemoglobin 12.0, platelets 284,000. Labs from October 02 revealed normal liver profile including albumin 3.8. IMPRESSION: Given the patient's clinical history, her past medical history in regard to irritable bowel syndrome and her recent GI procedures from fall with Dr. Luna, and her current examination, I feel she does have ongoing issues with her chronic longstanding underlying irritable bowel syndrome. I do not think this represents any other pathology given her good clinical appearance, laboratory findings, and her benign exam. I do not think this reflects any significant intraabdominal process. As such, I do not think any further investigative studies are required. At this point, I would simply add her dicyclomine to be used on a p.r.n. basis. I will continue her diet as tolerated and continue observation. She does state that she will be making a followup appointment with Dr. Luna for her next colonoscopy given the multiple tubular adenomas removed several months ago. At this point, I do not think any other intervention is required here, but certainly call me if I can be of any further assistance during the hospitalization. This has been discussed with the patient in detail, and she is comfortable with this plan. Thank you for the consultation. MD BLANCA Pelayo/DOT / [id number]
[2021-10-06] VITALS: BP 162/70; PULSE 65; RESP 18; TEMP 36.2; O2SAT 95
[2021-10-06 03:32] VITALS: RESP 18
[2021-10-06] MEDS: Omeprazole 40 MG CAPSULE.DR PO (06:15)
[2021-10-06 06:58] VITALS: BP 195/81; PULSE 63; RESP 18; TEMP 36.5; O2SAT 95
[2021-10-06 07:24] VITALS: PULSE 63; RESP 18; O2SAT 95
[2021-10-06] MEDS: Albuterol/Iprat 2.5/0.5MG 3 ML AMPUL.NEB INHALE ×2 (07:24→11:21)
[2021-10-06 07:25] LABS: Glucose, Whole Blood 129 mg/dL (60-115)
--- NOTE | 2021-10-06 07:31 | P.PNIM_ITS ---
Subjective Subjective Date of Service: 10/06/21 Interval History: copd excerebation , abd pain Physical Exam Verdana 4l Vital Signs: Verdana 4d Verdana 4d Vital Signs: Verdana 4d Verdana 4Bd Last Vital Signs Verdana 4d Compensation Supervisor New 4d Compensation Supervisor New 4d Temp 97.7 F 10/06/21 06:58 Compensation Supervisor New 4d Pulse 63 10/06/21 07:24 Compensation Supervisor New 4d Resp 18 10/06/21 07:24 BP 195/81 H 10/06/21 06:58 Pulse Ox 95 10/06/21 06:58 BMI result Body Mass Index 36.0 Objective Data Active Medications Acetaminophen (Acetaminophen 325 Mg Tablet) 650 mg PO Q6H PRN PRN Reason: Pain, Mild (Pain Scale 1-3) Last Admin: 10/05/21 23:51 Dose: 650 mg Documented by: JOSEPH Albuterol/Ipratropium (Albuterol/Iprat 2.5/0.5mg 3 Ml Ampul.Neb) 3 ml INHALE Q4H PRN PRN Reason: Shortness of Breath/Wheezing Albuterol/Ipratropium (Albuterol/Iprat 2.5/0.5mg 3 Ml Ampul.Neb) 3 ml INHALE RQ4H WHILE AWAKE [facility] Last Admin: 10/06/21 07:24 Dose: 3 ml Documented by: ARABELLA Apixaban (Apixaban 5 Mg Tablet) 5 mg PO BID [facility] Last Admin: 10/05/21 21:40 Dose: 5 mg Documented by: JOSEPH Atorvastatin Calcium (Atorvastatin Calcium 40 Mg Tablet) 40 mg PO BEDTIME [facility] Last Admin: 10/05/21 21:40 Dose: 40 mg Documented by: JOSEPH Buspirone HCl (Buspirone Hcl 5 Mg Tablet) 5 mg PO DAILY [facility] Last Admin: 10/05/21 08:11 Dose: 5 mg Documented by: GARRETT Dicyclomine HCl (Dicyclomine Hcl 10 Mg Capsule) 10 mg PO QIDACHS PRN PRN Reason: abdominal pain Diltiazem HCl (Diltiazem Hcl Cd 240 Mg Cap.Er.Deg) 240 mg PO DAILY [facility]; Protocol Last Admin: 10/05/21 08:10 Dose: 240 mg Documented by: GARRETT Docusate Sodium (Docusate Sodium 100 Mg Capsule) 100 mg PO DAILY PRN PRN Reason: Constipation Escitalopram Oxalate (Escitalopram Oxalate 20 Mg Tablet) 20 mg PO DAILY [facility] Last Admin: 10/05/21 08:11 Dose: 20 mg Documented by: GARRETT Furosemide (Furosemide 20 Mg Tablet) 20 mg PO DAILY [facility]; Protocol Last Admin: 10/05/21 08:11 Dose: 20 mg Documented by: GARRETT Guaifenesin (Guaifenesin 100 Mg/5 Ml Liquid) 5 ml PO Q4H PRN PRN Reason: cough Last Admin: 10/05/21 17:29 Dose: 5 ml Documented by: GARRETT Hydralazine HCl (Hydralazine Hcl 20 Mg/Ml Vial) 5 mg IVPUSH Q4H PRN; Protocol PRN Reason: hypertension (sbp>160) Last Admin: 10/05/21 12:45 Dose: 5 mg Documented by: GARRETT Hydralazine HCl (Hydralazine Hcl 25 Mg Tablet) 25 mg PO BID [facility]; Protocol Last Admin: 10/05/21 21:40 Dose: 25 mg Documented by: JOSEPH Azithromycin 500 mg/ Sodium (Chloride) 250 mls @ 125 mls/hr IV Q24H [facility] Last Infusion: 10/06/21 00:06 Dose: 125 mls/hr Documented by: JOSEPH Insulin Glargine (Insulin Glargine,Hum.Rec.Anlog 100 Unit/Ml 10 Ml Vial) 50 uni t SUBCUT BEDTIME [facility] Last Admin: 10/05/21 21:40 Dose: 50 unit Documented by: JOSEPH Insulin Human Lispro (Insulin Lispro 100 Unit/Ml 3 Ml Vial) 0 unit SUBCUT QIDACHS [facility]; Protocol Last Admin: 10/06/21 07:27 Dose: Not Given Documented by: ANN Non-Admin Reason: No Insulin Coverage Melatonin (Melatonin 3 Mg Tablet) 6 mg PO BEDTIME PRN PRN Reason: Sleep Metoprolol Tartrate (Metoprolol Tartrate 100 Mg Tablet) 100 mg PO BID [facility]; Protocol Last Admin: 10/05/21 21:39 Dose: 100 mg Documented by: JOSEPH Omeprazole (Omeprazole 40 Mg [place].) 40 mg PO BID@0630,1630 [facility] Last Admin: 10/06/21 06:15 Dose: 40 mg Documented by: JOSEPH Ondansetron HCl (Ondansetron Hcl 4 Mg/2 Ml Vial) 4 mg IVPUSH Q8H PRN PRN Reason: Nausea and Vomiting Pharmacy Consult (Consult Rx Perform Med Rec) 1 each MISCELLANE ONCE PRN PRN Reason: Consult order Prednisone (Prednisone 20 Mg Tablet) 20 mg PO DAILY [facility] Sodium Chloride (0.9 % Sodium Chloride Flush 3 Ml Syringe) 3 ml IVFLUSH QSHIFT [facility] Last Admin: 10/06/21 00:08 Dose: Not Given Documented by: JOSEPH Non-Admin Reason: abx was running Spironolactone (Spironolactone 25 Mg Tablet) 25 mg PO DAILY [facility]; Protocol Vitamin D (Cholecalciferol (Vitamin D3) 25 Mcg Tablet) 50 mcg PO DAILY [facility] Last Admin: 10/05/21 08:10 Dose: 50 mcg Documented by: GARRETT Labs CBC & Chem 7: 10/04/21 05:47 10/04/21 05:47 Labs: Laboratory Results - last 24 hr 10/05/21 10/05/21 10/05/21 07:50 08:38 11:33 POC Glucose 233 H 251 H B-Natriuretic Peptide 241 H 10/05/21 10/05/21 10/06/21 15:21 20:16 07:07 POC Glucose 306 H 354 H* 129 H B-Natriuretic Peptide Microbiology Microbiology Results: Microbiology 10/03/21 19:15 Blood Culture - Preliminary Blood - Venous No growth after 48 hours. 10/03/21 17:58 Blood Culture - Preliminary Blood - Venous No growth after 48 hours. Quality Stroke Does the patient have a stroke diagnosis?: No VTE Prior VTE?: No VTE Risk Level:: Surgical - very high VTE Device Contraindication: Treatment Not Indicated VTE Drug Contraindication: N/A - Med Ordered
[2021-10-06] MEDS: Apixaban 5 MG TABLET PO (07:46)
[2021-10-06] MEDS: hydrALAZINE HCl 25 MG TABLET PO (07:46)
[2021-10-06] MEDS: Escitalopram Oxalate 20 MG TABLET PO (07:46)
[2021-10-06] MEDS: predniSONE 20 MG TABLET PO (07:46)
[2021-10-06] MEDS: Spironolactone 25 MG TABLET PO (07:46)
[2021-10-06] MEDS: Furosemide 20 MG TABLET PO (07:46)
[2021-10-06] MEDS: 0.9 % Sodium Chloride Flush 3 ML SYRINGE IVFLUSH (07:46)
[2021-10-06] MEDS: dilTIAZem HCL CD 240 MG CAP.ER.DEG PO (07:47)
[2021-10-06] MEDS: Metoprolol Tartrate 100 MG TABLET PO (07:47)
[2021-10-06] MEDS: busPIRone HCl 5 MG TABLET PO (07:47)
[2021-10-06] MEDS: Cholecalciferol (Vitamin D3) 25 MCG TABLET 50 MCG PO (07:47)
--- NOTE | 2021-10-06 10:51 | MHC.CLN ---
NUTRITION CONSULT FOR POOR INTAKE. REVIEW OF DOCUMENTATION SHOWS INTAKE 75-100% X 2 DAYS. WEIGHT HISTORY SHOWS 4.6% WEIGHT LOSS X 10 MONTHS, NOT SIGNIFICANT. NO ADDITIONAL NUTRITION INTERVENTIONS AT THIS TIME BASED ON CURRENT GOOD INTAKE.
--- NOTE | 2021-10-06 11:02 | MHC.CLN ---
NUTRITION INTAKE X 2 DAYS 75-100%. REVIEW OF WEIGHT HISTORY SHOWS WEIGHT LOSS X 10 MONTHS -4.6%, NOT SIGNIFICANT. NO NEW NUTRITION INTERVENTIONS BASED ON USUALLY GOOD INTAKE.
[2021-10-06 11:18] VITALS: BP 177/76; PULSE 63; RESP 18; TEMP 36.6; O2SAT 95
[2021-10-06 11:21] VITALS: PULSE 63; RESP 16; O2SAT 95
--- NOTE | 2021-10-06 11:33 | MHC.CM.PN ---
CM CONTACTED PT'S DTR GRACE AT 11:20AM TO VERIFY HOME SERVICES, DTR REPORTED PT'S PCP IS ERICKA ORTEGA IN [facility] AND PT USES [facility] FOR MD/SUPERVISOR THROWING DEPARTMENT VISITS AND REPORTED D/T PT BEING SICK THEY HAD MORE FREQUENT VISITS HOWEVER PT/DTR ARE BOTH INTERESTED IN [facility] SERVICES FOR [facility] HAS BEEN OKAYED BY HOSPITALIST, DTR ALSO REPORTS PT'S NEB TX'S AND CM HAS GIVEN INFO TO HOSPITALIST WHO WILL ADD. PT WILL D/C TODAY WHO [facility] FOR DETENTION AND DTR FOR TRANSPORT.
[2021-10-06 11:53] LABS: Glucose, Whole Blood 189 mg/dL (60-115)
[2021-10-06] MEDS: Insulin Lispro 100 UNIT/ML 3 ML VIAL SUBCUT (12:07)
--- NOTE | 2021-10-06 12:14 | P.DS_ITS ---
DS: Providers Provider Date of Service: 10/06/21 Date of admission: 10/03/21 21:52 Primary care physician: José Manuel Carrington MD Consults: 10/04/21 09:28 Consult to Cardiology Routine Consulting Provider: [facility] [place] [facility] Reason for consultation: SOB-? CHF vs copd , elevated troponins Has provider been notified: No 10/05/21 11:48 Consult to Gastroenterology Routine Consulting Provider: Jeronimo Smith Reason for consultation: persistent abd pain -unclear etiology Has provider been notified: No DS: Diagnosis Discharge Diagnosis (1) Elevated troponin: Status: Acute (2) Leukocytosis: Status: Acute (3) Acute exacerbation of chronic obstructive pulmonary disease: Status: Acute DS: Summary Hospital Course Hospital Course: 70-year-old female with history of CAD, COPD, diabetes, hyperlipidemia, history of hypertension, BC, pulmonary embolism, ALYSIA not compliant with CPAP, who presents to the hospital with complaints of works owning shortness of breath.? Patient reports that her symptoms started since August but have worsened over the last week.? She has increased cough, sputum production, no fever some chills.? She is feeling very anxious.? She feels like she can not catch her breath.? She was seen in the hospital on the day prior, discharge with Decadron p.o. but reports no relief of her symptoms.? Patient denies any orthopnea or PND, no lower extremity edema.? No fever or chills, no abdominal pain nausea or vomiting, no diarrhea constipation, no urinary symptoms and no lower extremity edema. On arrival to the ED patient found to be tachycardic with a heart rate of 107, respiratory rate of 16, blood pressure of 215/75, satting 95% on room air Labs are significant for WBC count 16.3, lactic acid of 2.7, initial troponin of 18.6 that increased to 31.3, Chest x-ray showed mild elevated left hemidiaphragm, platelike atelectasis right mid lung, and postsurgical changes in the left mid lung Patient will be admitted for COPD exacerbation. Hospital course: Patient admitted for COPD exacerbation-given nebs, steroids, antibiotics seems to improving-going home with p.o. steroids and azithromycin. Hypertension: Patient is blood pressure medication hydrochlorothiazide switched to hydralazine and added spironolactone. Monitor blood pressure outpatient with PCP and further adjustments as per PCP. As far as abdominal discomfort is concern: Seen by GI and thought to be possible component of irritable bowel syndrome-added Dyclosamine. Patient is to follow up outpatient with her own GI. elevated troponins:probable sec to copd and hypoxemia -seen by Cardiology recommended outpatient testing. Cardio may arrange their own appointment. Monitor electrolytes out patiently and renal function. Above was discussed with patient and her daughter in detail length-both understands and in agreement with the above plan, time spent 50 minutes and 50% time spent on counseling. Significant findings: As above. Procedures performed: None. Treatment and response: As above. Complications: None. Time Spent with Patient Time attestation: Total time spent providing and/or coordinating discharge services: Discharge coordination time: Greater than 30 minutes Quality: Stroke Does the patient have a stroke diagnosis?: No Physical Exam Verdana 4l Vital Signs: Verdana 4d Verdana 4d Vital Signs: Verdana 4d Verdana 4Bd Last Vital Signs Verdana 4d Predator Control Trapper New 4d Predator Control Trapper New 4d Temp 97.9 F 10/06/21 11:18 Predator Control Trapper New 4d Pulse 63 10/06/21 11:21 Predator Control Trapper New 4d Resp 16 10/06/21 11:21 BP 177/76 H 10/06/21 11:18 Pulse Ox 95 10/06/21 11:18 BMI result Body Mass Index 36.0 Appearance: Alert.? Oriented X3.? not in distress.? Eyes: Pupils equal, round and reactive to light.? Sclera nonicteric.? ENT: Pharynx normal.? Moist mucous membranes. cvs: rrr, [id number] , no murmur res: air entry seems similar as per admission,has b/l wheezing abd: no rebound or guarding ,nt, bs present. ext pulses present , no cyanosis ,no edema. neuro: axo3 , nonfocal. DS: Data Data Completed and Pending Labs on day of discharge: Laboratory Results - last 24 hr 10/05/21 10/05/21 10/06/21 15:21 20:16 07:07 POC Glucose 306 H 354 H* 129 H 10/06/21 11:21 POC Glucose 189 H Preliminary micro results at discharge 10/03/21 19:15 Blood Culture - Preliminary Blood - Venous No growth after 48 hours. 10/03/21 17:58 Blood Culture - Preliminary Blood - Venous No growth after 48 hours. Discharge Plan Discharge Patient Disposition: Home Health Service Discharge Diagnosis: copd excerebation, possible ibs Referrals: Enmanuel KESSLER [Outside] - 1 Day (DETENTION, PLEASE CONTACT [phone] IF YOU HAVE NOT HEARD FROM A NURSE BY NOON TOMORROW 10/07/21. ) José Manuel Carrington MD [Primary Care Provider] - 1 Week Discharge Medications: New hydralazine 25 mg Tablet 50 mg PO BID Qty: 120 0RF Protocol: Hold for SBP< HOLD for SBP < : 90 spironolactone 25 mg Tablet 25 mg PO DAILY Qty: 30 0RF Protocol: Hold for SBP< HOLD for SBP < : 90 docusate sodium 100 mg Capsule 100 mg PO DAILY PRN (Reason: Constipation) Qty: 30 0RF dicyclomine 10 mg Capsule 10 mg PO QIDACHS PRN (Reason: abdominal pain) Qty: 30 0RF azithromycin 250 mg tablet 250 mg PO DAILY 4 Days Qty: 4 0RF Rx Instructions: start on day 2 of therapy albuterol sulfate 2.5 mg/0.5 mL solution for nebulization 2.5 mg inhalation Q6H PRN (Reason: copd) Qty: 30 0RF Continued citalopram 40 mg tablet 40 mg PO DAILY Qty: 90 3RF cholecalciferol (vitamin D3) 50 mcg (2,000 unit) capsule 50 mcg PO DAILY Qty: 30 5RF atorvastatin 40 mg tablet 40 mg PO BEDTIME 90 Days Qty: 90 1RF diltiazem HCl 240 mg capsule,extended release 24hr 240 mg PO DAILY Qty: 90 0RF pantoprazole 40 mg tablet,delayed release (DR/EC) 40 mg PO BID Qty: 180 0RF (DME) FreeStyle Kelly 2 Sensor Kit See Rx Instructions .ROUTE .MEDSUPPLY Qty: 2 2RF Rx Instructions: As directed every 2 weeks buspirone 5 mg tablet 5 mg PO DAILY Qty: 30 0RF metoprolol tartrate 50 mg tablet 50 mg PO BID 0RF (DME) FreeStyle Precision Jamaal Strips Strip See Rx Instructions .ROUTE .MEDSUPPLY Qty: 50 5RF Rx Instructions: once a day for calibration albuterol sulfate 90 mcg/actuation HFA aerosol inhaler 2 puff inhalation Q4H PRN (Reason: for wheezing) Qty: 8.5 0RF budesonide-formoterol [Symbicort] 160-4.5 mcg/actuation HFA aerosol inhaler 2 puff inhalation BID Qty: 10.2 1RF prednisone 20 mg tablet 1 tab PO DAILY 0RF Jardiance 10 mg tablet 1 tab PO DAILY 0RF Lantus Solostar U-100 Insulin 100 unit/mL (3 mL) insulin pen 50 unit subcut DAILY 0RF insulin lispro 200 unit/mL (3 mL) insulin pen See Protocol unit subcut DIRECTED 0RF Protocol: Insulin Correction Scale Less than or equal to 110 ---- Give (units): 0 111 to 150 Give (units): 8 151 to 200 Give (units): 10 201 to 250 Give (units): 12 251 to 300 Give (units): 14 301 to 350 Give (units): 16 Greater than 350 Give (units): 18 Call MD if Blood Glucose > : 350 guaifenesin 100 mg/5 mL liquid 100 mg PO Q4H PRN (Reason: cough) 0RF furosemide 20 mg tablet 20 mg PO DAILY 0RF Rx Instructions: pt was on 7 day supply, notes shew has two days left Eliquis 5 mg tablet 5 mg PO BID 0RF melatonin 5 mg capsule 5 mg PO BEDTIME PRN (Reason: Sleep) 0RF Discontinued chlorthalidone 25 mg tablet 25 mg PO DAILY 0RF Discharge Orders: Discharge Order (Routine); Ordered 10/06/21 Ordered By: Kenrick Millard Diet: advance to usual diet Activity on Discharge: As tolerated Stand Alone Forms: Patient Portal Discharge page Other Ambulatory Orders: Basic Metabolic Panel (Routine) Timeframe: 1 Week Facility: [facility] - Location: Laboratory Ordered By: Kenrick Millard Care Plan Goals: Patient admitted for COPD exacerbation-given nebs, steroids, antibiotics seems to improving-going home with p.o. steroids and azithromycin. Hypertension: Patient is blood pressure medication hydrochlorothiazide switched to hydralazine and added spironolactone. Monitor blood pressure outpatient with PCP and further adjustments as per PCP. As far as abdominal discomfort is concern: Seen by GI and thought to be possible component of irritable bowel syndrome-added Dyclosamine. Patient is to follow up outpatient with her own GI. Monitor electrolytes out patiently and renal function. Above was discussed with patient and her daughter in detail length. Health Concerns: As above. Plan of Treatment: As above. Assessment: As above.
--- NOTE | 2021-10-06 12:53 | P.F2F_ITS ---
Service Date Service Date: 10/06/21 Encounter Date of encounter: 10/06/21 Encounter: COPD exacerbation, elevated troponin Reasons for Services Signs and symptoms assessed: Shortness of breath seems to be improving Reason for senior living: medication management, medication treatment and teach disease management MD Overseeing Care: José Manuel Carrington Homebound: Leaving the home is medically contraindicated at this time without the asist of a device and/or another person due th the listed conditions above and below. Reason homebound: weakness related to hospital stay Certification: Based on the above findings, I certify that this patient is confined to the home and needs intermittent senior living care, physical therapy and/or speech therapy, or continues to need occupational therapy. The patient is under my care, and I have initiated the establishment of the plan of care. The patient will be followed by a physician who will periodically review the plan of care.
== END 2021-10-06 13:56 | disposition home health service (06) | DRG 191 ==
LOC: HO.ED 21:17 → HO.EDOVER 22:13 → HO.S3 10-04 00:57
PROVIDERS: Nurse Practitioner Family; Admitting Provider Internal Medicine; Emergency Provider Emergency Medicine Emergency Medical Services; PCP Nurse Practitioner Family; Visit Provider Internal Medicine
DX: J44.1 Chronic obstructive pulmonary disease with (acute) exacerbation (principal); E87.2 Acidosis; I25.10 Atherosclerotic heart disease of native coronary artery without angina pectoris; G47.33 Obstructive sleep apnea (adult) (pediatric); K58.9 Irritable bowel syndrome, unspecified; E78.5 Hyperlipidemia, unspecified; E11.9 Type 2 diabetes mellitus without complications; T38.0X5A Adverse effect of glucocorticoids and synthetic analogues, initial encounter; D72.829 Elevated white blood cell count, unspecified; Z20.822 Contact with and (suspected) exposure to COVID-19; Z87.891 Personal history of nicotine dependence; Z86.711 Personal history of pulmonary embolism; Z88.2 Allergy status to sulfonamides; Z91.040 Latex allergy status; Z79.4 Long term (current) use of insulin; Z79.01 Long term (current) use of anticoagulants; Z79.899 Other long term (current) drug therapy
CPT/HCPCS: 36415; 71046; 80048; 82947; 83605; 83880; 84484; 85025; 87040; 87635; 93005; 94640; 96361; 96365; 96367; 99285; J0456; J0696; J2270; J2920

== ENCOUNTER 2021-10-27 14:31 | Outpatient (REF) | payer MEDICARE, OTHER, SELFPAY ==
[2021-10-27 14:47] LABS: Appearance Urine CLEAR; Color Urine YELLOW; Glucose Urine UA >=1000 MG/DL (NEG); Leukocyte Esterase Urine NEG (NEG); Nitrite Urine NEG (NEG); PH 5.5 (5.0-8.0); Urine Blood NEG (NEG); Urine Ketones NEG (NEG); Urine Protein TRACE MG/DL (NEG-TRACE)
[2021-10-27 15:07] LABS: RBC Urine 0 /HPF (0); Squamous Epithelial Cell Urine 1+ /LPF; WBC Urine 0 /HPF (0-4)
== END 2021-10-27 14:32 | disposition home or self-care (01) ==
LOC: HO.HVNA 14:31
PROVIDERS: Visit Provider Nurse Practitioner Family
DX: N39.0 Urinary tract infection, site not specified (principal)
CPT/HCPCS: 81001; 87086

== ENCOUNTER 2022-04-05 06:37 | Emergency (ER) | payer MEDICARE, OTHER, SELFPAY ==
--- NOTE | ~2022-04-05 | CT_ITS ---
EXAMINATION: CT HEAD WITHOUT CONTRAST CT CERVICAL SPINE WITHOUT CONTRAST CLINICAL INFORMATION: Reason for Exam Fall COMPARISON: CT of the head and cervical spine done on 05/16/2020. TECHNIQUE: Imaging was performed from the skull base to vertex without intravenous administration of contrast. In addition, helical noncontrast CT imaging was acquired through the cervical spine and source images were reviewed along with axial reconstructions and sagittal and coronal MPRs. This CT examination was performed using dose optimization techniques as appropriate, variously including the following: *Automated exposure control. *Adjustment of mA and/or kV according to patient size (this includes techniques or standardized protocols for targeted exams where dose is matched to indication/reason for exam; i.e. extremities or head). *Use of iterative reconstruction technique. Total exam dose-length product 1477 mGy-cm FINDINGS: HEAD: No intracranial mass, hemorrhage, or midline shift is visualized. The ventricles and sulci are age-appropriate. No extra-axial collections are identified. The paranasal sinuses and mastoid air cells are well aerated. CERVICAL SPINE: There is no evidence of acute cervical spine fracture. The cervical spine alignment is intact. Postsurgical changes are noted at C5-C7 with intact hardware. Large claw like osteophyte formation is noted at C4-5, unchanged. Degenerative spondylosis related changes are noted at C2-C3 and C3-C4 and C7-T1, unchanged. Significant facet degenerative arthritic changes are noted throughout the entire cervical spine. Prespinal soft tissues are unremarkable. No prevertebral or paravertebral soft tissue abnormality is identified. Limited assessment of the lung apices is unremarkable. CT/CT cervical spine wo con IMPRESSION: 1. No acute intracranial pathology. 2. No CT evidence of acute cervical spine fracture or traumatic subluxation. 3. No significant change since most recent prior CT of the head and cervical spine done on 05/11/2020.
--- NOTE | ~2022-04-05 | CT_ITS ---
EXAMINATION: CT ABDOMEN AND PELVIS WITH CONTRAST CLINICAL INFORMATION: Lower abdominal pain and fall. COMPARISON: None TECHNIQUE: Multidetector volumetric images were obtained from the superior aspect of the liver through the pubic symphysis following administration 85 mL of Omnipaque 350 intravenous contrast. Sagittal and coronal reformatted images were obtained on the technologist's workstation. Oral contrast: No This CT examination was performed using dose optimization techniques as appropriate, variously including the following: *Automated exposure control *Adjustment of mA and/or kV according to patient size (this includes techniques or standardized protocols for targeted exams where dose is matched to indication/reason for exam; i.e. extremities or head) *Use of iterative reconstruction technique DLP: 756 mGy-cm FINDINGS: LUNG BASES: Minimal linear atelectatic changes seen in the anterior segment left lower lobe LIVER, GALLBLADDER, AND BILIARY TREE: The liver is normal in size, shape, and attenuation. No focal hepatic lesion or biliary ductal dilatation is present. The gallbladder has been surgically removed. PANCREAS: Unremarkable. SPLEEN: Unremarkable. ADRENAL GLANDS: Unremarkable. KIDNEYS AND URETERS: The left kidney is normal size, shape and position. A small right kidney is noted with mild cortical thickening involving the upper/midpole. Right kidney measures 8.45 cm in length and left kidney measures 14.13 cm in length BLADDER: The bladder is nondistended and appears unremarkable. GASTROINTESTINAL TRACT: There is scattered stool, diverticuli and gas seen throughout the colon without distention. The small bowel loops are normal caliber. Appendix is normal caliber. No free air or free fluid seen. ABDOMINAL WALL: No significant hernia is appreciated. LYMPH NODES: Normal. VASCULAR: There is arthroscopic calcification abdominal aorta without aneurysmal dilatation. PELVIC VISCERA: The uterus is anteverted and appears unremarkable. No adnexal mass or free fluid seen. OSSEOUS STRUCTURES: Grade 1 anterolisthesis L4 over L5. No aggressive lytic or sclerotic process seen. CT/CT abdomen pelvis w con IMPRESSION: No acute intra-abdominal process seen. Mild constipation. Normal appendix. Small right kidney with mild cortical thinning upper/midpole Fleischner guidelines were followed.
--- NOTE | ~2022-04-05 | XR_ITS ---
EXAMINATION: XR CHEST CLINICAL INFORMATION: Cough. COMPARISON: Chest 10/03/2021 TECHNIQUE: 2 views of the chest were obtained. FINDINGS: The lungs are expanded with haziness in both lung bases likely from overlying soft tissue attenuation. Postsurgical sutures are seen in the left upper/midlung. Mild thickening of fissure or platelike atelectasis in right midlung. Heart size and vascularity is normal. There is moderate spondylosis dorsal spine. No aggressive lytic process seen. There is moderate spondylosis dorsal spine. There is ventral plate and screws for lower cervical spine fusion XR/XR chest 2V IMPRESSION: Platelike atelectasis and/or fissural thickening right midlung. Postsurgical sutures left upper mid lung. Otherwise lungs are clear. No change from previous exam 09/25/2021
[2022-04-05 06:46] VITALS: BP 196/78; PULSE 97; RESP 18; TEMP 36.5; O2SAT 95
[2022-04-05 06:50] VITALS: BP 210/100; PULSE 100; TEMP 36.5; O2SAT 99; BMI 32.8
[2022-04-05 08:04] VITALS: BP 190/77; PULSE 97; RESP 18; TEMP 36.8; O2SAT 95
--- NOTE | 2022-04-05 08:09 | ECG_ITS ---
Test Reason : FALL Blood Pressure : / mmHG Vent. Rate : 102 BPM Atrial Rate : 102 BPM P-R Int : 158 ms QRS Dur : 076 ms QT Int : 344 ms P-R-T Axes : 057 044 051 degrees QTc Int : 448 ms Sinus tachycardia with Premature supraventricular complexes Otherwise normal ECG When compared with ECG of 04-OCT-2021 08:52, T wave inversion no longer evident in Inferior leads Referred By: Winnie Murphy Electronically Signed By:NELSON PLASCENCIA MD
--- NOTE | 2022-04-05 08:41 | PC.NURSE ---
Pt alert and oriented x4, post fall with reported hours of down time. complaining of 6/10 lower abd pain that radiates to the back. Denies any LOC or dizziness.VSS.Bladder scan 352. Pt complaint of burning when urinating.
--- NOTE | 2022-04-05 08:43 | ED_ITS ---
HPI - Fall General Chief Complaint: Fall Stated Complaint: fall Time Seen by Provider: 04/05/22 06:42 Source: patient Mode of arrival: EMS History of Present Illness HPI Narrative: 71-year-old female with significant past medical history presents via EMS for sustaining a fall while getting up to go to the bathroom in the middle the night. Patient states that she bent over to sit on the toilet became unbalanced and tipped forward falling into the sink and trash can and then becoming lodged in between the cabinet and the sink and was unable to get up. She called out for her family but they were unable to hear her and found her down this morning. Patient denies any cool, clammy skin prior to falling forward and denies any chest pain/palpitations or recent fever, chills and denies any recent shortness of breath. However collateral information obtained from the daughter states that patient has been using her breathing treatments more frequently than usual. Patient otherwise describes suprapubic discomfort as well as urinary burning. Currently patient complained of pain to lower abdomen but denies pain to the pelvis area and is able to demonstrate full range of motion to bilateral lower extremities without pain Related Data Home Medications Medication Instructions Recorded Confirmed guaifenesin 100 mg/5 mL oral liquid 100 mg PO Q4H PRN cough 12/09/20 10/03/21 metoprolol tartrate 50 mg tablet 50 mg PO BID 12/25/20 10/03/21 apixaban 5 mg tablet (Eliquis) 5 mg PO BID 09/30/21 10/03/21 furosemide 20 mg tablet 20 mg PO DAILY 09/30/21 10/03/21 melatonin 5 mg capsule 5 mg PO BEDTIME PRN Sleep 09/30/21 10/03/21 empagliflozin 10 mg tablet 1 tab PO DAILY 10/03/21 10/03/21 (Jardiance) insulin glargine 100 unit/mL (3 50 unit subcut DAILY 10/03/21 10/03/21 mL) subcutaneous pen (Lantus Solostar U-100 Insulin) insulin lispro 200 unit/mL (3 mL) See Protocol subcut DIRECTED 10/03/21 10/03/21 subcutaneous pen prednisone 20 mg tablet 1 tab PO DAILY 10/03/21 10/03/21 Previous Rx's Medication Instructions Recorded citalopram 40 mg tablet 40 mg PO DAILY #90 tabs 06/08/20 cholecalciferol (vitamin D3) 50 50 mcg PO DAILY #30 caps 07/25/20 mcg (2,000 unit) capsule atorvastatin 40 mg tablet 40 mg PO BEDTIME 90 days #90 tabs 08/15/20 diltiazem HCl 240 mg 240 mg PO DAILY #90 caps 09/13/20 capsule,extended release 24 hr pantoprazole 40 mg tablet,delayed 40 mg PO BID #180 tabs 09/13/20 release flash glucose sensor (FreeStyle #2 ea 11/13/20 Kelly 2 Sensor kit) buspirone 5 mg tablet 5 mg PO DAILY #30 tabs 12/16/20 FreeStyle Precision Jamaal Strips #50 ea 01/10/21 (blood sugar diagnostic) albuterol sulfate 90 mcg/actuation 2 puff inhalation Q4H PRN for 02/24/21 aerosol inhaler wheezing #8.5 grams Symbicort 160 mcg-4.5 2 puff inhalation BID #10.2 grams 09/26/21 mcg/actuation HFA aerosol inhaler (budesonide-formoterol) albuterol sulfate 2.5 mg/0.5 mL 2.5 mg (0.5 mL) inhalation Q6H PRN 10/06/21 solution for nebulization copd #30 ea azithromycin 250 mg tablet 250 mg PO DAILY 4 days #4 tabs 10/06/21 dicyclomine 10 mg capsule 10 mg PO QIDACHS PRN abdominal 10/06/21 pain #30 caps docusate sodium 100 mg capsule 100 mg PO DAILY PRN Constipation 10/06/21 #30 caps hydralazine 25 mg tablet 50 mg PO BID #120 tabs 10/06/21 spironolactone 25 mg tablet 25 mg PO DAILY #30 tabs 10/06/21 Allergies Allergy/AdvReac Type Severity Reaction Status Date / Time Latex, Natural Rubber Allergy Severe blisters Verified 09/30/21 13:06 Sulfa (Sulfonamide Allergy Mild ITCHING, Verified 09/30/21 13:06 Antibiotics) rash [SULFA (SULFONAMIDE ANTIBIOTICS)] nystatin Allergy Unknown rash Verified 09/30/21 13:06 isosorbide [From Imdur] AdvReac Unknown HEADACHES, Verified 09/30/21 13:06 headache tizanidine AdvReac Unknown weakness, Verified 09/30/21 13:06 Hellucination Review of Systems Review of Systems: Pertinent positives and negatives as stated in HPI 10 point review of systems is otherwise negative. [facility] Past Medical History Source: nursing notes reviewed Medical History CAD (coronary artery disease) COPD (chronic obstructive pulmonary disease) Diabetes type 2, uncontrolled Dyslipidemia Hypertension Lactic acidosis MCFP (current) use of insulin Obesity Obstructive sleep apnea Pulmonary embolism Respiratory failure Surgical History History of cardiac cath History of carpal tunnel surgery History of cholecystectomy History of lobectomy of lung Status post tracheoplasty Family History Family History Mother No problems noted. Father No problems noted. Social History Social History Household Members: Family Housing: House Do you presently have visiting nurse or other home services: Yes Alcohol intake: current Alcohol intake frequency: does not drink Patient Tobacco Use Status: Former Tobacco user Quit Date: 1993 Smoked: 10 +/- Use of substances other than those prescribed or required for medical reasons: No Advance Directives: No Advance Directives Information Provided: Yes Physical Exam Vital Signs: Vital Signs: Last Vital Signs Temp 98.4 F 04/05/22 11:10 Pulse 97 04/05/22 08:04 Resp 20 04/05/22 10:26 BP 176/57 H 04/05/22 11:10 Pulse Ox 95 04/05/22 08:04 O2 Del Method 04/05/22 08:04 BMI result Body Mass Index 32.8 VITAL SIGNS: Reviewed. GENERAL: Well developed, well nourished, in no acute distress. HEAD: Normocephalic/atraumatic EYES: PERRLA, EOMI EARS: Ext canals without abnormality NOSE: Nares patent bilateral OROPHARYNX: no oral lesions noted, posterior pharynx clear and non-erythematous without noted tonsillar enlargement/erythema/exudates NECK: C-collar in place, no adenopathy, no midline cervical spine tenderness LUNGS: Normal breath sounds. No adventitious sounds or accessory muscle use. SpO2<95> CARDIOVASCULAR: Regular rate and rhythm without noted murmurs, no JVD or lower extremity edema. ABDOMEN: Soft, significant suprapubic pain and left lower quadrant pain without rebound, non-distended with bowel sounds. PELVIS: STABLE, NONTENDER MUSCULOSKELETAL: No tenderness, deformities, or effusions noted on gross inspection. EXTREMITIES: No cyanosis, clubbing or edema, full range of motion noted at hip and knee without pain and no evidence of swelling or erythema SKIN: Inspection of the skin reveals no rashes NEUROLOGIC: Alert and oriented x 4. Strength and sensation to light touch were grossly intact x 4, no facial asymmetry, no pronator drift. Course Course Course Narrative: 71-year-old female with history and clinical presentation consistent with likely mechanical fall but will evaluate for evidence of infection, anemia as etiologies. Patient has recently had COVID-19 approximately 3 weeks ago. There is no evidence of focal deficits at this time although collateral information from the daughter who states that her mother's speech seemed to be slurred when she initially found her on the floor. Review of all investigations otherwise negative for acute findings and trace leukocytosis felt to be reactive in nature. Patient has a good appetite and is tolerating food and liquids. All results and findings discussed with the patient at bedside and she was otherwise discharged home in stable condition. Procedures EJ/Peripheral Line Arm R: Time Out Performed: No Skin Cleansed in Sterile Fashion: Yes Size (gauge): 18 IV Secured and Dressing Applied: Yes Patient Tolerated Procedure: well Additional Comments: Ultrasound guided MDM - Fall Lab Data Result diagrams: 04/05/22 09:16 04/05/22 09:16 Labs: Lab Results 04/05/22 04/05/22 04/05/22 Range/Units 09:16 09:16 09:16 WBC 11.9 H (4.8-10.8) X10*3/uL RBC 5.14 (4.20-5.50) X10*6/uL Hgb 13.1 (12.0-16.0) g/dl Hct 40.8 (37.0-47.0) % MCV 79.4 L (80.0-98.0) fL MCH 25.5 L (27.0-33.0) pg MCHC 32.1 (31.0-35.0) g/dl RDW 17.0 H (11.0-16.0) % Plt Count 195 D (160-400) X10*3/uL MPV 9.4 (9.4-12.3) fL Immature Gran % (Auto) 0.6 H (0.0-0.4) % Neut % (Auto) 73.1 H (45-73) % Lymph % (Auto) 14.8 L (20-40) % [place] % (Auto) 10.1 (2-11) % Eos % (Auto) 1.2 (0-4) % Baso % (Auto) 0.2 (0-2) % Lymph # (Auto) 1.8 (1.2-4.9) X10*3/uL [place] # (Auto) 1.2 (0.1-1.2) X10*3/uL Eos # (Auto) 0.1 (0.0-0.4) X10*3/uL Baso # (Auto) 0.0 (0.0-0.2) X10*3/uL Abs Immat Gran (auto) 0.07 H (0.00-0.03) X10*3/uL Absolute Neuts (auto) 8.7 H (2.0-8.3) x10*3/uL Absolute Nucleated RBC 0.000 (0.0-0.012) X10*3/uL Nucleated RBC % (auto) 0.0 (0.0-0.2) /100WBC PT 11.4 (10.0-13.1) SEC INR 1.0 (0.9-1.1) VBG pH (7.32-7.43) VBG pCO2 mmHg VBG pO2 mmHg VBG HCO3 (22-26) mmol/L VBG O2 Saturation % VBG Base Excess mmol/L Sodium 140 (135-145) mmol/L Potassium 3.4 (3.3-5.1) mmol/L Chloride 97 (96-108) mmol/L Carbon Dioxide 31 H (22-29) mmol/L Anion Gap 15 (12-20) BUN 18 H (9-16) mg/dL Creatinine 0.92 (0.5-1.4) mg/dL Estim Creat Clear Calc 58.1 Estimated GFR 60 Random Glucose 283 H (60-115) mg/dL Lactic Acid (0.5-2.0) mmol/L Calcium 8.3 L (8.4-10.2) mg/dL Total Bilirubin 0.9 (0.0-1.0) mg/dL AST 11 (5-31) U/L ALT 19 (0-31) U/L Alkaline Phosphatase 99 (39-117) U/L Total Creatine Kinase 44 (26-140) U/L Troponin I High Sens (<3.5-17.0) ng/L Total Protein 6.1 L (6.5-8.0) g/dL Albumin 3.5 (3.5-5.0) g/dL Urine Color Urine Appearance Urine pH (5.0-8.0) Ur Specific Leland (1.005-1.025) Urine Protein (NEG-TRACE) MG/DL Urine Glucose (UA) (NEG) MG/DL Urine Ketones (NEG) MG/DL Urine Blood (NEG) Urine Nitrite (NEG) Ur Leukocyte Esterase (NEG) Urine RBC (0) /HPF Urine WBC (0-4) /HPF Ur Squamous Epith Cells /LPF Urine Bacteria /LPF COVID-19 (CHEMA) (Negative) COVID-19 Clin Com 04/05/22 04/05/22 04/05/22 Range/Units 09:16 09:16 09:21 WBC (4.8-10.8) X10*3/uL RBC (4.20-5.50) X10*6/uL Hgb (12.0-16.0) g/dl Hct (37.0-47.0) % MCV (80.0-98.0) fL MCH (27.0-33.0) pg MCHC (31.0-35.0) g/dl RDW (11.0-16.0) % Plt Count (160-400) X10*3/uL MPV (9.4-12.3) fL Immature Gran % (Auto) (0.0-0.4) % Neut % (Auto) (45-73) % Lymph % (Auto) (20-40) % [place] % (Auto) (2-11) % Eos % (Auto) (0-4) % Baso % (Auto) (0-2) % Lymph # (Auto) (1.2-4.9) X10*3/uL [place] # (Auto) (0.1-1.2) X10*3/uL Eos # (Auto) (0.0-0.4) X10*3/uL Baso # (Auto) (0.0-0.2) X10*3/uL Abs Immat Gran (auto) (0.00-0.03) X10*3/uL Absolute Neuts (auto) (2.0-8.3) x10*3/uL Absolute Nucleated RBC (0.0-0.012) X10*3/uL Nucleated RBC % (auto) (0.0-0.2) /100WBC PT (10.0-13.1) SEC INR (0.9-1.1) VBG pH 7.47 H (7.32-7.43) VBG pCO2 46 mmHg VBG pO2 63 mmHg VBG HCO3 34 H (22-26) mmol/L VBG O2 Saturation 89.0 % VBG Base Excess 9.5 mmol/L Sodium (135-145) mmol/L Potassium (3.3-5.1) mmol/L Chloride (96-108) mmol/L Carbon Dioxide (22-29) mmol/L Anion Gap (12-20) BUN (9-16) mg/dL Creatinine (0.5-1.4) mg/dL Estim Creat Clear Calc Estimated GFR Random Glucose (60-115) mg/dL Lactic Acid 1.4 (0.5-2.0) mmol/L Calcium (8.4-10.2) mg/dL Total Bilirubin (0.0-1.0) mg/dL AST (5-31) U/L ALT (0-31) U/L Alkaline Phosphatase (39-117) U/L Total Creatine Kinase (26-140) U/L Troponin I High Sens 43.4 H (<3.5-17.0) ng/L Total Protein (6.5-8.0) g/dL Albumin (3.5-5.0) g/dL Urine Color Urine Appearance Urine pH (5.0-8.0) Ur Specific [place]eland (1.005-1.025) Urine Protein (NEG-TRACE) MG/DL Urine Glucose (UA) (NEG) MG/DL Urine Ketones (NEG) MG/DL Urine Blood (NEG) Urine Nitrite (NEG) Ur Leukocyte Esterase (NEG) Urine RBC (0) /HPF Urine WBC (0-4) /HPF Ur Squamous Epith Cells /LPF Urine Bacteria /LPF COVID-19 (CHEMA) (Negative) COVID-19 Clin Com 04/05/22 04/05/22 04/05/22 Range/Units 09:31 11:23 14:33 WBC (4.8-10.8) X10*3/uL RBC (4.20-5.50) X10*6/uL Hgb (12.0-16.0) g/dl Hct (37.0-47.0) % MCV (80.0-98.0) fL MCH (27.0-33.0) pg MCHC (31.0-35.0) g/dl RDW (11.0-16.0) % Plt Count (160-400) X10*3/uL MPV (9.4-12.3) fL Immature Gran % (Auto) (0.0-0.4) % Neut % (Auto) (45-73) % Lymph % (Auto) (20-40) % [place] % (Auto) (2-11) % Eos % (Auto) (0-4) % Baso % (Auto) (0-2) % Lymph # (Auto) (1.2-4.9) X10*3/uL [place] # (Auto) (0.1-1.2) X10*3/uL Eos # (Auto) (0.0-0.4) X10*3/uL Baso # (Auto) (0.0-0.2) X10*3/uL Abs Immat Gran (auto) (0.00-0.03) X10*3/uL Absolute Neuts (auto) (2.0-8.3) x10*3/uL Absolute Nucleated RBC (0.0-0.012) X10*3/uL Nucleated RBC % (auto) (0.0-0.2) /100WBC PT (10.0-13.1) SEC INR (0.9-1.1) VBG pH (7.32-7.43) VBG pCO2 mmHg VBG pO2 mmHg VBG HCO3 (22-26) mmol/L VBG O2 Saturation % VBG Base Excess mmol/L Sodium (135-145) mmol/L Potassium (3.3-5.1) mmol/L Chloride (96-108) mmol/L Carbon Dioxide (22-29) mmol/L Anion Gap (12-20) BUN (9-16) mg/dL Creatinine (0.5-1.4) mg/dL Estim Creat Clear Calc Estimated GFR Random Glucose (60-115) mg/dL Lactic Acid (0.5-2.0) mmol/L Calcium (8.4-10.2) mg/dL Total Bilirubin (0.0-1.0) mg/dL AST (5-31) U/L ALT (0-31) U/L Alkaline Phosphatase (39-117) U/L Total Creatine Kinase (26-140) U/L Troponin I High Sens 36.2 H (<3.5-17.0) ng/L Total Protein (6.5-8.0) g/dL Albumin (3.5-5.0) g/dL Urine Color YELLOW Urine Appearance HAZY Urine pH 7.0 (5.0-8.0) Ur Specific [place] 1.010 (1.005-1.025) Urine Protein 2+ H (NEG-TRACE) MG/DL Urine Glucose (UA) 500 H (NEG) MG/DL Urine Ketones NEG (NEG) MG/DL Urine Blood TRACE (NEG) Urine Nitrite NEG (NEG) Ur Leukocyte Esterase NEG (NEG) Urine RBC 0-2 (0) /HPF Urine WBC 0-2 (0-4) /HPF Ur Squamous Epith Cells TRACE /LPF Urine Bacteria NONE /LPF COVID-19 (CHEMA) Negative (Negative) COVID-19 Clin Com See Note ECG Data Attestation: I personally reviewed and interpreted this ECG as follows: Prior ECG tracings: available for review Interpretation: Sinus tachycardia, HR-102, no STEMI, WA/QRS/QTC are within normal limits. Discharge Plan Discharge Clinical Impression: Fall, COPD (chronic obstructive pulmonary disease), Obstructive sleep apnea, Diabetes Patient Disposition: Home, Self-Care Instructions: Fall Prevention for Older Adults (ED), Diabetes and Nutrition (ED), COPD (Chronic Obstructive Pulmonary Disease) (ED) Additional Instructions: 1. Resume all home medications as prescribed. 2. Recommend [id number] Tylenol/ibuprofen as well as heating pad for pain control. 3. Please follow-up with your primary care provider by calling the office in the morning. Return to the ER for worsening symptoms. Prescriptions: No Action citalopram 40 mg tablet 40 mg PO DAILY Qty: 90 3RF cholecalciferol (vitamin D3) 50 mcg (2,000 unit) capsule 50 mcg PO DAILY Qty: 30 5RF atorvastatin 40 mg tablet 40 mg PO BEDTIME 90 Days Qty: 90 1RF diltiazem HCl 240 mg capsule,extended release 24hr 240 mg PO DAILY Qty: 90 0RF pantoprazole 40 mg tablet,delayed release (DR/EC) 40 mg PO BID Qty: 180 0RF (DME) FreeStyle Kelly 2 Sensor Kit See Rx Instructions .ROUTE .MEDSUPPLY Qty: 2 2RF Rx Instructions: As directed every 2 weeks buspirone 5 mg tablet 5 mg PO DAILY Qty: 30 0RF metoprolol tartrate 50 mg tablet 50 mg PO BID (DME) FreeStyle Precision Jamaal Strips Strip See Rx Instructions .ROUTE .MEDSUPPLY Qty: 50 5RF Rx Instructions: once a day for calibration albuterol sulfate 90 mcg/actuation HFA aerosol inhaler 2 puff inhalation Q4H PRN (Reason: for wheezing) Qty: 8.5 0RF budesonide-formoterol [Symbicort] 160-4.5 mcg/actuation HFA aerosol inhaler 2 puff inhalation BID Qty: 10.2 1RF prednisone 20 mg tablet 1 tab PO DAILY Jardiance 10 mg tablet 1 tab PO DAILY Lantus Solostar U-100 Insulin 100 unit/mL (3 mL) insulin pen 50 unit subcut DAILY insulin lispro 200 unit/mL (3 mL) insulin pen See Protocol subcut DIRECTED Protocol: Insulin Correction Scale Less than or equal to 110 ---- Give (units): 0 111 to 150 Give (units): 8 151 to 200 Give (units): 10 201 to 250 Give (units): 12 251 to 300 Give (units): 14 301 to 350 Give (units): 16 Greater than 350 Give (units): 18 Call MD if Blood Glucose > : 350 hydralazine 25 mg Tablet 50 mg PO BID Qty: 120 0RF Protocol: Hold for SBP< HOLD for SBP < : 90 spironolactone 25 mg Tablet 25 mg PO DAILY Qty: 30 0RF Protocol: Hold for SBP< HOLD for SBP < : 90 docusate sodium 100 mg Capsule 100 mg PO DAILY PRN (Reason: Constipation) Qty: 30 0RF dicyclomine 10 mg Capsule 10 mg PO QIDACHS PRN (Reason: abdominal pain) Qty: 30 0RF azithromycin 250 mg tablet 250 mg PO DAILY 4 Days Qty: 4 0RF Rx Instructions: start on day 2 of therapy albuterol sulfate 2.5 mg/0.5 mL solution for nebulization 2.5 mg inhalation Q6H PRN (Reason: copd) Qty: 30 0RF guaifenesin 100 mg/5 mL liquid 100 mg PO Q4H PRN (Reason: cough) furosemide 20 mg tablet 20 mg PO DAILY Rx Instructions: pt was on 7 day supply, notes shew has two days left Eliquis 5 mg tablet 5 mg PO BID melatonin 5 mg capsule 5 mg PO BEDTIME PRN (Reason: Sleep)
--- NOTE | 2022-04-05 08:53 | PC.NURSE ---
This RN made two unsuccessful attempts to obtain IV access using US visualization. Provider made aware and provider will now attempt to obtain access.
[2022-04-05 09:21] LABS: Venous Blood Gas Refer to POC result
[2022-04-05 09:22] LABS: MANUAL DIFF FLAG NO
[2022-04-05 09:24] LABS: Basophils Percent Auto 0.2 % (0-2); Eosinophils Absolute Auto 0.1 X10*3/uL (0.0-0.4); Eosinophils Percent Auto 1.2 % (0-4); Hematocrit 40.8 % (37.0-47.0); Hemoglobin 13.1 g/dl (12.0-16.0); Imm Gran Abs Auto 0.07 X10*3/uL (0.00-0.03); Imm Gran Pct Auto 0.6 % (0.0-0.4); Lymphocytes Absolute Auto 1.8 X10*3/uL (1.2-4.9); Lymphocytes Percent Auto 14.8 % (20-40); Mean Corpuscular HGB Conc 32.1 g/dl (31.0-35.0); Mean Corpuscular Hemoglobin 25.5 pg (27.0-33.0); Mean Corpuscular Volume 79.4 fL (80.0-98.0); Mean Platelet Volume 9.4 fL (9.4-12.3); Monocytes Absolute Auto 1.2 X10*3/uL (0.1-1.2); Monocytes Percent Auto 10.1 % (2-11); Neutrophils Absolute Auto 8.7 x10*3/uL (2.0-8.3); Neutrophils Percent Auto 73.1 % (45-73); Platelet Count 195 X10*3/uL (160-400); Red Blood Count 5.14 X10*6/uL (4.20-5.50); White Blood Count 11.9 X10*3/uL (4.8-10.8)
[2022-04-05 09:26] LABS: VBG Base Excess 9.5 mmol/L; VBG HCO3 34 mmol/L (22-26); VBG pCO2 46 mmHg; VBG pH 7.47 (7.32-7.43); VBG pO2 63 mmHg
[2022-04-05 09:33] LABS: Prothrombin Time 11.4 SEC (10.0-13.1)
[2022-04-05 09:35] LABS: Lactic Acid 1.4 mmol/L (0.5-2.0)
[2022-04-05 09:43] LABS: Alanine Aminotransferase 19 U/L (0-31); Albumin Level 3.5 g/dL (3.5-5.0); Alkaline Phosphatase 99 U/L (39-117); Anion Gap 15 (12-20); Aspartate Amino Transferase 11 U/L (5-31); Bilirubin Total 0.9 mg/dL (0.0-1.0); Blood Urea Nitrogen 18 mg/dL (9-16); Calcium 8.3 mg/dL (8.4-10.2); Carbon Dioxide 31 mmol/L (22-29); Chloride 97 mmol/L (96-108); Creatinine Clr Calc Pharmacy 58.1; Estimated Glomerular Filt Rate 60; Glucose Random 283 mg/dL (60-115); Potassium 3.4 mmol/L (3.3-5.1); Sodium 140 mmol/L (135-145); Total Protein 6.1 g/dL (6.5-8.0)
[2022-04-05 09:46] LABS: Troponin-I High Sensitivity 43.4 ng/L (<3.5-17.0)
[2022-04-05 09:55] LABS: COVID-19 Test Negative (Negative); IDNOW Serial# 16C4AD1C
[2022-04-05] MEDS: iohexoL 350 MG/ML 100 ML INFUS..BTL IV (10:13)
[2022-04-05] MEDS: fentaNYL citrate/PF 100 MCG/2 ML VIAL 25 MCG IVPUSH (10:18)
[2022-04-05] MEDS: Acetaminophen 325 MG TABLET 975 MG PO ×2 (10:18→16:01)
[2022-04-05 10:26] VITALS: BP 188/67; RESP 20
[2022-04-05 11:10] VITALS: BP 176/57; TEMP 36.9
[2022-04-05 11:41] LABS: Appearance Urine HAZY; Color Urine YELLOW; Glucose Urine UA 500 MG/DL (NEG); Leukocyte Esterase Urine NEG (NEG); Nitrite Urine NEG (NEG); UACC Culture Trigger NO; Urine Blood TRACE (NEG); Urine Ketones NEG (NEG); Urine Protein 2+ MG/DL (NEG-TRACE)
--- NOTE | 2022-04-05 11:45 | PC.NURSE ---
pt ambulated to the bathroom with steady gait and provided a urine sample pt is still having some lower/pelvic pain, pain at 6/10 at this time, pt is having audible wheezing when moving around but its mostly in the tracheal region , ls clear and sating 97% on room air
[2022-04-05 11:56] LABS: RBC Urine 0-2 /HPF (0); Squamous Epithelial Cell Urine TRACE /LPF; WBC Urine 0-2 /HPF (0-4)
[2022-04-05 14:58] LABS: Troponin-I High Sensitivity 36.2 ng/L (<3.5-17.0)
[2022-04-05] MEDS: Ibuprofen 400 MG TABLET PO (16:01)
== END 2022-04-05 16:45 | disposition home or self-care (01) ==
PROVIDERS: Emergency Provider Student in an Organized Health Care Education/Training Program
DX: S19.9XXA Unspecified injury of neck, initial encounter (principal); M54.2 Cervicalgia; R51.9 Headache, unspecified; G47.33 Obstructive sleep apnea (adult) (pediatric); R00.0 Tachycardia, unspecified; R07.89 Other chest pain; R10.9 Unspecified abdominal pain; R30.0 Dysuria; E11.9 Type 2 diabetes mellitus without complications; W01.0XXA Fall on same level from slipping, tripping and stumbling without subsequent striking against object, initial encounter; Y93.9 Activity, unspecified; Y92.002 Bathroom of unspecified non-institutional (private) residence as the place of occurrence of the external cause; Y99.9 Unspecified external cause status; J44.9 Chronic obstructive pulmonary disease, unspecified; Z79.899 Other long term (current) drug therapy; Z20.822 Contact with and (suspected) exposure to COVID-19; Z79.4 Long term (current) use of insulin; Z87.891 Personal history of nicotine dependence
CPT/HCPCS: 36415; 36556; 51798; 70450; 71046; 72125; 74177; 80053; 81001; 82550; 82803; 83605; 84484; 85025; 85610; 87040; 87635; 93005; 96365; 96375; 99285; J3010; Q9967

== ENCOUNTER 2022-07-13 16:42 | Emergency (ER) | payer MEDICARE, OTHER, SELFPAY ==
--- NOTE | ~2022-07-13 | CT_ITS ---
EXAMINATION: CT HEAD WITHOUT CONTRAST CLINICAL INFORMATION: Dizziness, hypertension COMPARISON: 04/05/2022 TECHNIQUE: Contiguous axial imaging was performed from the skull base to vertex without intravenous administration of contrast. This CT examination was performed using dose optimization techniques as appropriate, variously including the following: *Automated exposure control *Adjustment of mA and/or kV according to patient size (this includes techniques or standardized protocols for targeted exams where dose is matched to indication/reason for exam; i.e. extremities or head) *Use of iterative reconstruction technique DLP: 707 mGy-cm FINDINGS: There is no evidence of acute intracranial hemorrhage or territorial infarction. No abnormal mass effect or midline shift is seen. [place] to white matter differentiation is well preserved. No extra-axial fluid collections are identified. Similar configuration of the ventricles and sulci. Similar appearance of patchy periventricular and subcortical white matter hypodensity, left greater than right, similar in appearance to the prior study. Bilateral senescent basal ganglia calcifications. The osseous structures and soft tissues are normal. Minimal ethmoid and sphenoid sinus mucosal thickening. No evidence of acute sinusitis. CT/CT head/brain wo IV con IMPRESSION: No acute intracranial abnormality. No significant change from 04/05/2022.
[2022-07-13 18:22] VITALS: BP 210/73; PULSE 100; RESP 16; TEMP 36.7; O2SAT 98; BMI 33.5
[2022-07-13 18:45] LABS: MANUAL DIFF FLAG NO
[2022-07-13 18:46] LABS: Basophils Absolute Auto 0.1 X10*3/uL (0.0-0.2); Basophils Percent Auto 0.7 % (0-2); Eosinophils Absolute Auto 0.3 X10*3/uL (0.0-0.4); Eosinophils Percent Auto 3.7 % (0-4); Hematocrit 43.2 % (37.0-47.0); Hemoglobin 13.7 g/dl (12.0-16.0); Imm Gran Abs Auto 0.03 X10*3/uL (0.00-0.03); Imm Gran Pct Auto 0.3 % (0.0-0.4); Lymphocytes Absolute Auto 2.5 X10*3/uL (1.2-4.9); Lymphocytes Percent Auto 27.9 % (20-40); Mean Corpuscular HGB Conc 31.7 g/dl (31.0-35.0); Mean Corpuscular Hemoglobin 26.3 pg (27.0-33.0); Mean Corpuscular Volume 82.9 fL (80.0-98.0); Mean Platelet Volume 9.7 fL (9.4-12.3); Monocytes Absolute Auto 0.7 X10*3/uL (0.1-1.2); Monocytes Percent Auto 7.9 % (2-11); Neutrophils Absolute Auto 5.3 x10*3/uL (2.0-8.3); Neutrophils Percent Auto 59.5 % (45-73); Platelet Count 282 X10*3/uL (160-400); Red Blood Count 5.21 X10*6/uL (4.20-5.50); Red Cell Distribution Width 14.2 % (11.0-16.0); White Blood Count 8.9 X10*3/uL (4.8-10.8)
[2022-07-13 19:09] LABS: Alanine Aminotransferase 14 U/L (0-31); Alkaline Phosphatase 111 U/L (39-117); Anion Gap 16 (12-20); Aspartate Amino Transferase 13 U/L (5-31); Bilirubin Total 0.4 mg/dL (0.0-1.0); Blood Urea Nitrogen 20 mg/dL (9-16); Calcium 9.6 mg/dL (8.4-10.2); Carbon Dioxide 31 mmol/L (22-29); Chloride 99 mmol/L (96-108); Creatinine Clr Calc Pharmacy 47.7; Estimated Glomerular Filt Rate 47; Glucose Random 147 mg/dL (60-115); Potassium 3.7 mmol/L (3.3-5.1); Sodium 142 mmol/L (135-145); Total Protein 7.1 g/dL (6.5-8.0)
[2022-07-13 19:30] LABS: Influenza A PCR NEGATIVE (Negative); Influenza B PCR NEGATIVE (Negative); Resp Syncy Virus RNA Qual PCR NEGATIVE (Negative); SARS COV2 PCR INHOUSE NEGATIVE (Negative)
--- NOTE | 2022-07-13 20:37 | ED.DIZZY ---
HPI - Dizziness General Chief Complaint: Dizziness Stated Complaint: dizziness fell Time Seen by Provider: 07/13/22 19:49 Source: patient Mode of arrival: ambulatory History of Present Illness HPI Narrative: 71-year-old female with history COPD and hypertension presents with complaints of having ?fogginess? as well as feeling lightheaded and states that when she bent forward to put her meal on the table next to her chair that she lost her balance falling into the table and hitting the window. She denies any loss of consciousness or injuries associated with that and did not fall to the floor. She denies any recent fever, chills, shortness of breath, chest pain, diarrhea, urinary pain/burning. Patient states that she did not take her medication for her blood pressure today and that the fogginess may be related to her sleeping aid which she takes at night. Related Data Home Medications Medication Instructions Recorded Confirmed guaifenesin 100 mg/5 mL oral liquid 100 mg PO Q4H PRN cough 12/09/20 10/03/21 metoprolol tartrate 50 mg tablet 50 mg PO BID 12/25/20 10/03/21 apixaban 5 mg tablet (Eliquis) 5 mg PO BID 09/30/21 10/03/21 furosemide 20 mg tablet 20 mg PO DAILY 09/30/21 10/03/21 melatonin 5 mg capsule 5 mg PO BEDTIME PRN Sleep 09/30/21 10/03/21 empagliflozin 10 mg tablet 1 tab PO DAILY 10/03/21 10/03/21 (Jardiance) insulin glargine 100 unit/mL (3 50 unit subcut DAILY 10/03/21 10/03/21 mL) subcutaneous pen (Lantus Solostar U-100 Insulin) prednisone 20 mg tablet 1 tab PO DAILY 10/03/21 10/03/21 Previous Rx's Medication Instructions Recorded citalopram 40 mg tablet 40 mg PO DAILY #90 tabs 06/08/20 cholecalciferol (vitamin D3) 50 50 mcg PO DAILY #30 caps 07/25/20 mcg (2,000 unit) capsule atorvastatin 40 mg tablet 40 mg PO BEDTIME 90 days #90 tabs 08/15/20 diltiazem HCl 240 mg 240 mg PO DAILY #90 caps 09/13/20 capsule,extended release 24 hr pantoprazole 40 mg tablet,delayed 40 mg PO BID #180 tabs 09/13/20 release flash glucose sensor (FreeStyle #2 ea 11/13/20 Kelly 2 Sensor kit) buspirone 5 mg tablet 5 mg PO DAILY #30 tabs 12/16/20 FreeStyle Precision Jamaal Strips #50 ea 01/10/21 (blood sugar diagnostic) albuterol sulfate 90 mcg/actuation 2 puff inhalation Q4H PRN for 02/24/21 aerosol inhaler wheezing #8.5 grams Symbicort 160 mcg-4.5 2 puff inhalation BID #10.2 grams 09/26/21 mcg/actuation HFA aerosol inhaler (budesonide-formoterol) albuterol sulfate 2.5 mg/0.5 mL 2.5 mg (0.5 mL) inhalation Q6H PRN 10/06/21 solution for nebulization copd #30 ea azithromycin 250 mg tablet 250 mg PO DAILY 4 days #4 tabs 10/06/21 dicyclomine 10 mg capsule 10 mg PO QIDACHS PRN abdominal 10/06/21 pain #30 caps docusate sodium 100 mg capsule 100 mg PO DAILY PRN Constipation 10/06/21 #30 caps hydralazine 25 mg tablet 50 mg PO BID #120 tabs 10/06/21 spironolactone 25 mg tablet 25 mg PO DAILY #30 tabs 10/06/21 insulin lispro 100 unit/mL 24 unit (0.24 mL) subcut TID #15 mL 05/05/22 subcutaneous pen (Humalog KwikPen (U-100) Insulin) Allergies Allergy/AdvReac Type Severity Reaction Status Date / Time Latex, Natural Rubber Allergy Severe blisters Verified 05/05/22 12:03 Sulfa (Sulfonamide Allergy Mild ITCHING, Verified 05/05/22 12:03 Antibiotics) rash [SULFA (SULFONAMIDE ANTIBIOTICS)] nystatin Allergy Unknown rash Verified 05/05/22 12:03 isosorbide [From Imdur] AdvReac Unknown HEADACHES, Verified 05/05/22 12:03 headache tizanidine AdvReac Unknown weakness, Verified 05/05/22 12:03 Hellucination Review of Systems Review of Systems: Pertinent positives and negatives as stated in HPI 10 point review of systems is otherwise negative. 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 Father No problems noted. Social History Social History Household Members: Family Housing: House Do you presently have visiting nurse or other home services: Yes Alcohol intake: current Alcohol intake frequency: does not drink Patient Tobacco Use Status: Former Tobacco user Quit Date: 1993 Smoked: 10 +/- Advance Directives: No Advance Directives Information Provided: No Physical Exam Vital Signs: Vital Signs: Last Vital Signs Temp 98.2 F 07/13/22 22:37 Pulse 95 07/13/22 22:37 Resp 15 07/13/22 22:37 BP 183/78 H 07/13/22 22:47 Pulse Ox 95 07/13/22 22:37 O2 Del Method 07/13/22 22:37 BMI result Body Mass Index 33.5 VITAL SIGNS: Reviewed. GENERAL: Well developed, well nourished, in no acute distress. HEAD: Normocephalic/atraumatic EYES: PERRLA, EOMI EARS: Ext canals without abnormality OROPHARYNX: no oral lesions noted, posterior pharynx clear LUNGS: Normal breath sounds. No adventitious sounds or accessory muscle use. SpO2<95> CARDIOVASCULAR: Regular rate and rhythm without noted murmurs, no JVD or lower extremity edema. ABDOMEN: Soft, non-tender, non-distended with bowel sounds. MUSCULOSKELETAL: No tenderness, deformities, or effusions noted on gross inspection. EXTREMITIES: No cyanosis, clubbing or edema. SKIN: Inspection of the skin reveals no rashes NEUROLOGIC: Alert and oriented x 4. Strength and sensation to light touch were grossly intact x 4, no facial asymmetry, no pronator drift, cranial nerves 2-12 are grossly intact.. Course Course Course Narrative: 71-year-old female with history and clinical presentation after review of all investigations negative for acute findings to suggest intracranial bleed, patient received a total of 20 mg of Norvasc with good blood pressure reduction, orthostatics were negative and there is no evidence of acute anemia, infection, COPD exacerbation. All results and plans were discussed with the patient at bedside and it was explained to her that part of her feeling and sensation may be secondary to the sleeping aid that she is using at night. Especially if she is still my getting adequate rest she may wake up feeling foggy and out of sorts. Patient is otherwise hemodynamically stable for discharge. Medications Administered Discontinued Medications Generic Name Dose Route Start Last Admin Trade Name Freq PRN Reason Stop Dose Admin Amlodipine Besylate 10 mg 07/13/22 20:37 07/13/22 20:59 Amlodipine Besylate 10 Mg Tablet PO 07/13/22 20:38 10 mg ONCE ONE Administration Protocol MDM - Dizziness Lab Data Result diagrams: 07/13/22 18:35 07/13/22 18:35 Labs: Lab Results 07/13/22 07/13/22 07/13/22 Range/Units 18:35 18:35 18:35 WBC 8.9 (4.8-10.8) X10*3/uL RBC 5.21 (4.20-5.50) X10*6/uL Hgb 13.7 (12.0-16.0) g/dl Hct 43.2 (37.0-47.0) % MCV 82.9 (80.0-98.0) fL MCH 26.3 L (27.0-33.0) pg MCHC 31.7 (31.0-35.0) g/dl RDW 14.2 (11.0-16.0) % Plt Count 282 D (160-400) X10*3/uL MPV 9.7 (9.4-12.3) fL Immature Gran % (Auto) 0.3 (0.0-0.4) % Neut % (Auto) 59.5 (45-73) % Lymph % (Auto) 27.9 (20-40) % Mccreary % (Auto) 7.9 (2-11) % Eos % (Auto) 3.7 (0-4) % Baso % (Auto) 0.7 (0-2) % Lymph # (Auto) 2.5 (1.2-4.9) X10*3/uL Mccreary # (Auto) 0.7 (0.1-1.2) X10*3/uL Eos # (Auto) 0.3 (0.0-0.4) X10*3/uL Baso # (Auto) 0.1 (0.0-0.2) X10*3/uL Abs Immat Gran (auto) 0.03 (0.00-0.03) X10*3/uL Absolute Neuts (auto) 5.3 (2.0-8.3) x10*3/uL Absolute Nucleated RBC 0.000 (0.0-0.012) X10*3/uL Nucleated RBC % (auto) 0.0 (0.0-0.2) /100WBC VBG pH (7.32-7.43) VBG pCO2 mmHg VBG pO2 mmHg VBG HCO3 (22-26) mmol/L VBG O2 Saturation % VBG Base Excess mmol/L Sodium 142 (135-145) mmol/L Potassium 3.7 (3.3-5.1) mmol/L Chloride 99 (96-108) mmol/L Carbon Dioxide 31 H (22-29) mmol/L Anion Gap 16 (12-20) BUN 20 H (9-16) mg/dL Creatinine 1.13 (0.5-1.4) mg/dL Estim Creat Clear Calc 47.7 Estimated GFR 47 Random Glucose 147 H (60-115) mg/dL Calcium 9.6 D (8.4-10.2) mg/dL Total Bilirubin 0.4 (0.0-1.0) mg/dL AST 13 (5-31) U/L ALT 14 (0-31) U/L Alkaline Phosphatase 111 (39-117) U/L Total Protein 7.1 (6.5-8.0) g/dL Albumin 4.0 (3.5-5.0) g/dL Urine Color Urine Appearance Urine pH (5.0-9.0) Ur Specific [place] (1.005-1.025) Urine Protein (Neg-Trace) mg/dL Urine Glucose (UA) (Negative) mg/dL Urine Ketones (Negative) mg/dL Urine Blood (Negative) Urine Nitrite (Negative) Ur Leukocyte Esterase (Negative) Urine RBC (0-2) /HPF Urine WBC (0-5) /HPF Ur Squamous Epith Cells (0-2) /HPF Urine Bacteria (None Seen) Hyaline Casts (0-2) /LPF Influenza Type A (PCR) NEGATIVE (Negative) Influenza Type B (PCR) NEGATIVE (Negative) RSV RNA Qual (PCR) NEGATIVE (Negative) SARS-CoV-2 RNA (RT-PCR) NEGATIVE (Negative) 07/13/22 07/13/22 Range/Units 21:29 21:29 WBC (4.8-10.8) X10*3/uL RBC (4.20-5.50) X10*6/uL Hgb (12.0-16.0) g/dl Hct (37.0-47.0) % MCV (80.0-98.0) fL MCH (27.0-33.0) pg MCHC (31.0-35.0) g/dl RDW (11.0-16.0) % Plt Count (160-400) X10*3/uL MPV (9.4-12.3) fL Immature Gran % (Auto) (0.0-0.4) % Neut % (Auto) (45-73) % Lymph % (Auto) (20-40) % Mccreary % (Auto) (2-11) % Eos % (Auto) (0-4) % Baso % (Auto) (0-2) % Lymph # (Auto) (1.2-4.9) X10*3/uL [place] # (Auto) (0.1-1.2) X10*3/uL Eos # (Auto) (0.0-0.4) X10*3/uL Baso # (Auto) (0.0-0.2) X10*3/uL Abs Immat Gran (auto) (0.00-0.03) X10*3/uL Absolute Neuts (auto) (2.0-8.3) x10*3/uL Absolute Nucleated RBC (0.0-0.012) X10*3/uL Nucleated RBC % (auto) (0.0-0.2) /100WBC VBG pH 7.45 H (7.32-7.43) VBG pCO2 47 mmHg VBG pO2 41 mmHg VBG HCO3 33 H (22-26) mmol/L VBG O2 Saturation 62.0 % VBG Base Excess 8.3 mmol/L Sodium (135-145) mmol/L Potassium (3.3-5.1) mmol/L Chloride (96-108) mmol/L Carbon Dioxide (22-29) mmol/L Anion Gap (12-20) BUN (9-16) mg/dL Creatinine (0.5-1.4) mg/dL Estim Creat Clear Calc Estimated GFR Random Glucose (60-115) mg/dL Calcium (8.4-10.2) mg/dL Total Bilirubin (0.0-1.0) mg/dL AST (5-31) U/L ALT (0-31) U/L Alkaline Phosphatase (39-117) U/L Total Protein (6.5-8.0) g/dL Albumin (3.5-5.0) g/dL Urine Color Yellow Urine Appearance Clear Urine pH 5.5 (5.0-9.0) Ur Specific [place] 1.020 (1.005-1.025) Urine Protein 300 (3+) H (Neg-Trace) mg/dL Urine Glucose (UA) Negative (Negative) mg/dL Urine Ketones Negative (Negative) mg/dL Urine Blood Trace H (Negative) Urine Nitrite Negative (Negative) Ur Leukocyte Esterase Negative (Negative) Urine RBC 0-2 (0-2) /HPF Urine WBC 11-20 H (0-5) /HPF Ur Squamous Epith Cells 6-10 (0-2) /HPF Urine Bacteria 2+ (None Seen) Hyaline Casts 0-2 (0-2) /LPF Influenza Type A (PCR) (Negative) Influenza Type B (PCR) (Negative) RSV RNA Qual (PCR) (Negative) SARS-CoV-2 RNA (RT-PCR) (Negative) Discharge Plan Discharge Clinical Impression: Hypertension, Lightheadedness Patient Disposition: Home, Self-Care Instructions: Hypertension (ED), DASH Eating Plan (ED), Lightheadedness (ED) Additional Instructions: 1. Resume all home medications as prescribed. 2. You should follow-up with your primary care provider by calling the office in the morning and setting up an appointment for re-evaluation further outpatient management. Return to the ER for worsening symptoms. Prescriptions: No Action citalopram 40 mg tablet 40 mg PO DAILY Qty: 90 3RF cholecalciferol (vitamin D3) 50 mcg (2,000 unit) capsule 50 mcg PO DAILY Qty: 30 5RF atorvastatin 40 mg tablet 40 mg PO BEDTIME 90 Days Qty: 90 1RF diltiazem HCl 240 mg capsule,extended release 24hr 240 mg PO DAILY Qty: 90 0RF pantoprazole 40 mg tablet,delayed release (DR/EC) 40 mg PO BID Qty: 180 0RF (DME) FreeStyle Kelly 2 Sensor Kit See Rx Instructions .ROUTE .MEDSUPPLY Qty: 2 2RF Rx Instructions: As directed every 2 weeks buspirone 5 mg tablet 5 mg PO DAILY Qty: 30 0RF metoprolol tartrate 50 mg tablet 50 mg PO BID (DME) FreeStyle Precision Jamaal Strips Strip See Rx Instructions .ROUTE .MEDSUPPLY Qty: 50 5RF Rx Instructions: once a day for calibration albuterol sulfate 90 mcg/actuation HFA aerosol inhaler 2 puff inhalation Q4H PRN (Reason: for wheezing) Qty: 8.5 0RF budesonide-formoterol [Symbicort] 160-4.5 mcg/actuation HFA aerosol inhaler 2 puff inhalation BID Qty: 10.2 1RF insulin lispro [Humalog KwikPen Insulin] 100 unit/mL insulin pen 24 unit subcut TID Qty: 15 0RF prednisone 20 mg tablet 1 tab PO DAILY Jardiance 10 mg tablet 1 tab PO DAILY Lantus Solostar U-100 Insulin 100 unit/mL (3 mL) insulin pen 50 unit subcut DAILY hydralazine 25 mg Tablet 50 mg PO BID Qty: 120 0RF Protocol: Hold for SBP< HOLD for SBP < : 90 spironolactone 25 mg Tablet 25 mg PO DAILY Qty: 30 0RF Protocol: Hold for SBP< HOLD for SBP < : 90 docusate sodium 100 mg Capsule 100 mg PO DAILY PRN (Reason: Constipation) Qty: 30 0RF dicyclomine 10 mg Capsule 10 mg PO QIDACHS PRN (Reason: abdominal pain) Qty: 30 0RF azithromycin 250 mg tablet 250 mg PO DAILY 4 Days Qty: 4 0RF Rx Instructions: start on day 2 of therapy albuterol sulfate 2.5 mg/0.5 mL solution for nebulization 2.5 mg inhalation Q6H PRN (Reason: copd) Qty: 30 0RF guaifenesin 100 mg/5 mL liquid 100 mg PO Q4H PRN (Reason: cough) furosemide 20 mg tablet 20 mg PO DAILY Rx Instructions: pt was on 7 day supply, notes shew has two days left Eliquis 5 mg tablet 5 mg PO BID melatonin 5 mg capsule 5 mg PO BEDTIME PRN (Reason: Sleep) Referrals: Tamar Chambers MD [Primary Care Provider] -
[2022-07-13] MEDS: amLODIPine Besylate 10 MG TABLET PO (20:59)
[2022-07-13 21:31] VITALS: BP 131/71; BP 184/81; PULSE 102; PULSE 98
[2022-07-13 21:34] VITALS: BP 176/86; PULSE 107
[2022-07-13 21:35] LABS: Appearance Urine Clear; Color Urine Yellow; Glucose Urine UA Negative (Negative); Leukocyte Esterase Urine Negative (Negative); Nitrite Urine Negative (Negative); PH 5.5 (5.0-9.0); UMIC TRIGGER UACC YES; Urine Blood Trace (Negative); Urine Ketones Negative (Negative); Urine Protein 300 (3+) mg/dL (Neg-Trace)
[2022-07-13 22:01] LABS: Bacteria Urine 2+ (None Seen); Hyaline Casts Urine 0-2 /LPF (0-2); RBC Urine 0-2 /HPF (0-2); UACC Culture Trigger YES
[2022-07-13 22:37] VITALS: BP 189/72; PULSE 95; RESP 15; TEMP 36.8; O2SAT 95
[2022-07-13 22:47] VITALS: BP 183/78
[2022-07-13 23:03] LABS: VBG Base Excess 8.3 mmol/L; VBG HCO3 33 mmol/L (22-26); VBG pCO2 47 mmHg; VBG pH 7.45 (7.32-7.43); VBG pO2 41 mmHg
[2022-07-13 23:04] LABS: Venous Blood Gas Refer to POC result
[2022-07-14] MEDS: amLODIPine Besylate 10 MG TABLET PO (00:03)
== END 2022-07-14 00:27 | disposition home or self-care (01) ==
PROVIDERS: Emergency Provider Student in an Organized Health Care Education/Training Program; PCP Internal Medicine
DX: R42 Dizziness and giddiness (principal); I10 Essential (primary) hypertension; Z20.822 Contact with and (suspected) exposure to COVID-19; E11.9 Type 2 diabetes mellitus without complications; E78.5 Hyperlipidemia, unspecified; Z86.711 Personal history of pulmonary embolism; Z79.01 Long term (current) use of anticoagulants; Z79.899 Other long term (current) drug therapy; Z79.02 Long term (current) use of antithrombotics/antiplatelets; Z79.4 Long term (current) use of insulin; Z87.891 Personal history of nicotine dependence
CPT/HCPCS: 0241U; 36415; 70450; 80053; 81001; 82803; 85025; 87086; 87088; 87186; 99284

== ENCOUNTER 2022-07-18 18:28 | Emergency (ER) | payer MEDICARE, OTHER, SELFPAY ==
[2022-07-18 18:48] VITALS: BP 162/67; PULSE 95; RESP 15; TEMP 36.9; O2SAT 95
[2022-07-18 20:03] VITALS: BP 189/68; PULSE 95; RESP 16; TEMP 37.1; O2SAT 94; BMI 33.5
--- NOTE | 2022-07-18 20:06 | ECG_ITS ---
Test Reason : WEAKNESS Blood Pressure : / mmHG Vent. Rate : 090 BPM Atrial Rate : 090 BPM P-R Int : 168 ms QRS Dur : 086 ms QT Int : 374 ms P-R-T Axes : 027 036 071 degrees QTc Int : 457 ms Normal sinus rhythm RSR' or QR pattern in V1 suggests right ventricular conduction delay Possible Left atrial enlargement Nonspecific T wave abnormality Lateral leads Abnormal ECG When compared with ECG of 05-APR-2022 08:45, Premature supraventricular complexes are no longer Present Referred By: Generic ED Physician Electronically Signed By:YUDY DEE MD
[2022-07-18 21:10] LABS: Hematocrit 45.7 % (37.0-47.0); Hemoglobin 14.6 g/dl (12.0-16.0); Mean Corpuscular HGB Conc 31.9 g/dl (31.0-35.0); Mean Corpuscular Hemoglobin 26.3 pg (27.0-33.0); Mean Corpuscular Volume 82.2 fL (80.0-98.0); Mean Platelet Volume 11.2 fL (9.4-12.3); Platelet Count 214 X10*3/uL (160-400); Red Blood Count 5.56 X10*6/uL (4.20-5.50); Red Cell Distribution Width 14.3 % (11.0-16.0); White Blood Count 10.4 X10*3/uL (4.8-10.8)
[2022-07-18 21:16] LABS: Anion Gap 20 (12-20); Blood Urea Nitrogen 22 mg/dL (9-16); Calcium 9.4 mg/dL (8.4-10.2); Carbon Dioxide 23 mmol/L (22-29); Chloride 102 mmol/L (96-108); Creatinine Clr Calc Pharmacy 48.5; Estimated Glomerular Filt Rate 48; Glucose Random 233 mg/dL (60-115); Potassium 4.4 mmol/L (3.3-5.1); Sodium 141 mmol/L (135-145)
[2022-07-18 21:20] LABS: Troponin-I High Sensitivity 8.3 ng/L (<3.5-17.0)
[2022-07-18 22:07] VITALS: PULSE 89; RESP 18; O2SAT 96
--- NOTE | 2022-07-18 22:32 | ED_ITS ---
HPI - General Adult General Chief complaint: Recheck/Abnormal Lab/Rx <Jeronimo Dudley MD - Last Filed: 07/18/22 22:42> Stated complaint: elevate bp 210/93 <Jeronimo Dudley MD - Last Filed: 07/18/22 22:42> Time Seen by Provider: 07/18/22 22:00 <Jeronimo Dudley MD - Last Filed: 07/18/22 22:42> Source: patient <Jeronimo Dudley MD - Last Filed: 07/18/22 22:42> Mode of arrival: ambulatory <Jeronimo Dudley MD - Last Filed: 07/18/22 22:42> Limitations: no limitations <Jeronimo Dudley MD - Last Filed: 07/18/22 22:42> History of Present Illness HPI narrative: 71-year-old female with a past medical history of hypertension and UTI presents to the emergency department [facility] complaining of hypertension which she noted earlier today. The patient was at home earlier this evening and noted her systolic blood pressure to be over 200. Her daughter convinced her to come to the emergency department [facility]. Of note is the patient was here a couple of days ago for similar complaints. The patient is on Lasix and atenolol, presumably for hypertension. The patient additionally complains of intermittent chest pains, which have begun in the last couple of days. She does state that the chest pain lasts for seconds at a time, and are not associated with any other symptoms when they occur.. <Jeronimo Dudley MD - Last Filed: 07/18/22 22:42> Onset (ago): hour(s) <Jeronimo Dudley MD - Last Filed: 07/18/22 22:42> Radiation: non-radiation <Jeronimo Dudley MD - Last Filed: 07/18/22 22:42> Severity: moderate <Jeronimo Dudley MD - Last Filed: 07/18/22 22:42> Quality: sharp <Jeronimo Dudley MD - Last Filed: 07/18/22 22:42> Pain Consistency: intermittent <Jeronimo Dudley MD - Last Filed: 07/18/22 22:42> Relieving factors: none <Jeronimo Dudley MD - Last Filed: 07/18/22 22:42> Exacerbating factors: none <Jeronimo Dudley MD - Last Filed: 07/18/22 22:42> Associated symptoms: denies other symptoms <Jeronimo Dudley MD - Last Filed: 07/18/22 22:42> Related Data Home medications: Home Medications Medication Instructions Recorded Confirmed guaifenesin 100 mg/5 mL oral liquid 100 mg PO Q4H PRN cough 12/09/20 10/03/21 metoprolol tartrate 50 mg tablet 50 mg PO BID 12/25/20 10/03/21 apixaban 5 mg tablet (Eliquis) 5 mg PO BID 09/30/21 10/03/21 furosemide 20 mg tablet 20 mg PO DAILY 09/30/21 10/03/21 melatonin 5 mg capsule 5 mg PO BEDTIME PRN Sleep 09/30/21 10/03/21 empagliflozin 10 mg tablet 1 tab PO DAILY 10/03/21 10/03/21 (Jardiance) insulin glargine 100 unit/mL (3 50 unit subcut DAILY 10/03/21 10/03/21 mL) subcutaneous pen (Lantus Solostar U-100 Insulin) prednisone 20 mg tablet 1 tab PO DAILY 10/03/21 10/03/21 Previous Rx's Medication Instructions Recorded citalopram 40 mg tablet 40 mg PO DAILY #90 tabs 06/08/20 cholecalciferol (vitamin D3) 50 50 mcg PO DAILY #30 caps 07/25/20 mcg (2,000 unit) capsule atorvastatin 40 mg tablet 40 mg PO BEDTIME 90 days #90 tabs 08/15/20 diltiazem HCl 240 mg 240 mg PO DAILY #90 caps 09/13/20 capsule,extended release 24 hr pantoprazole 40 mg tablet,delayed 40 mg PO BID #180 tabs 09/13/20 release flash glucose sensor (FreeStyle #2 ea 11/13/20 Kelly 2 Sensor kit) buspirone 5 mg tablet 5 mg PO DAILY #30 tabs 12/16/20 FreeStyle Precision Jamaal Strips #50 ea 01/10/21 (blood sugar diagnostic) albuterol sulfate 90 mcg/actuation 2 puff inhalation Q4H PRN for 02/24/21 aerosol inhaler wheezing #8.5 grams Symbicort 160 mcg-4.5 2 puff inhalation BID #10.2 grams 09/26/21 mcg/actuation HFA aerosol inhaler (budesonide-formoterol) albuterol sulfate 2.5 mg/0.5 mL 2.5 mg (0.5 mL) inhalation Q6H PRN 10/06/21 solution for nebulization copd #30 ea azithromycin 250 mg tablet 250 mg PO DAILY 4 days #4 tabs 10/06/21 dicyclomine 10 mg capsule 10 mg PO QIDACHS PRN abdominal 10/06/21 pain #30 caps docusate sodium 100 mg capsule 100 mg PO DAILY PRN Constipation 10/06/21 #30 caps hydralazine 25 mg tablet 50 mg PO BID #120 tabs 10/06/21 spironolactone 25 mg tablet 25 mg PO DAILY #30 tabs 10/06/21 insulin lispro 100 unit/mL 24 unit (0.24 mL) subcut TID #15 mL 05/05/22 subcutaneous pen (Humalog KwikPen (U-100) Insulin) cefuroxime axetil 250 mg tablet 250 mg PO BID 7 days #14 tabs 07/17/22 <Jeronimo Dudley MD - Last Filed: 07/18/22 22:42> Allergies/adverse reactions: Allergies Allergy/AdvReac Type Severity Reaction Status Date / Time Latex, Natural Rubber Allergy Severe blisters Verified 05/05/22 12:03 Sulfa (Sulfonamide Allergy Mild ITCHING, Verified 05/05/22 12:03 Antibiotics) rash [SULFA (SULFONAMIDE ANTIBIOTICS)] nystatin Allergy Unknown rash Verified 05/05/22 12:03 isosorbide [From Imdur] AdvReac Unknown HEADACHES, Verified 05/05/22 12:03 headache tizanidine AdvReac Unknown weakness, Verified 05/05/22 12:03 Hellucination <Jeronimo Dudley MD - Last Filed: 07/18/22 22:42> Review of Systems Review of Systems: Yes all other systems are reviewed and are negative <Eloise Dudley MD - Last Filed: 07/18/22 22:42> Constitutional: Constitutional: Denies chills and Denies fever(s) <Jeronimo Dudely MD - Last Filed: 07/18/22 22:42> Eyes: Eyes: Denies blurry vision, Denies change in vision and Denies diplopia <Jeronimo Dudley MD - Last Filed: 07/18/22 22:42> ENT: Reports system reviewed and no additional complaints, except as documented <Jeronimo Dudley MD - Last Filed: 07/18/22 22:42> Cardiovascular: Cardiovascular: Denies chest pain, Denies rapid heart rate, Denies lightheadedness and Denies Loss of Consciousness <Jeronimo Dudley MD - Last Filed: 07/18/22 22:42> Respiratory: Respiratory: Reports no additional respiratory complaints <Jeronimo Dudley MD - Last Filed: 07/18/22 22:42> Gastrointestinal: Gastrointestinal: Denies abdominal pain, Denies diarrhea, Denies nausea and Denies vomiting <Jeronimo Dudley MD - Last Filed: 07/18/22 22:42> Genitourinary: Genitourinary: Denies hematuria and Denies dysuria <Jeronimo Dudley MD - Last Filed: 07/18/22 22:42> Musculoskeletal: Musculoskeletal: Denies back pain and Denies myalgias <Jeronimo Dudley MD - Last Filed: 07/18/22 22:42> Integumentary/Breasts: Skin/Breast: Reports system reviewed and no additional complaints, except as docu <Jeronimo Dudley MD - Last Filed: 07/18/22 22:42> Neurologic: Reports confusion ( fogginess ) <Jeronimo Dudley MD - Last F iled: 07/18/22 22:42> Psychiatric: Psychiatric: Reports confusion ( fogginess ) <Jeronimo Dudley MD - Last Filed: 07/18/22 22:42> [facility] Past Medical History Attestation statement: The following information was validated with the patient. <Jeronimo Dudley MD - Last Filed: 07/18/22 22:42> Medical History: Medical History CAD (coronary artery disease) COPD (chronic obstructive pulmonary disease) Diabetes type 2, uncontrolled Dyslipidemia Hypertension Lactic acidosis [facility] (current) use of insulin Obesity Obstructive sleep apnea Pulmonary embolism Respiratory failure <Jeronimo Dudley MD - Last Filed: 07/18/22 22:42> Surgical History: Surgical History History of cardiac cath History of carpal tunnel surgery History of cholecystectomy History of lobectomy of lung Status post tracheoplasty <Jeronimo Dudley MD - Last Filed: 07/18/22 22:42> Family History Family History: Family History Mother No problems noted. Father No problems noted. <Jeronimo Dudley MD - Last Filed: 07/18/22 22:42> Social History Social History: Social History Household Members: Family Housing: House Do you presently have visiting nurse or other home services: Yes Alcohol intake: current Alcohol intake frequency: holidays/special occasions only Patient Tobacco Use Status: Former Tobacco user Quit Date: 1993 Years Smoked: 10 +/- Smoked in Last 30 Days: No Advance Directives: No Advance Directives Information Provided: No <Jeronimo Dudley MD - Last Filed: 07/18/22 22:42> Physical Exam ED Vital Signs: Vital Signs - 24 hr 07/18/22 18:48 07/18/22 20:03 07/18/22 22:07 Temperature 98.5 F 98.8 F Pulse Rate 95 95 89 Respiratory Rate 15 16 18 Blood Pressure 162/67 H 189/68 H Pulse Oximetry 95 94 96 Oxygen Delivery Method Room Air Room Air Room Air 07/18/22 23:33 07/19/22 01:57 07/19/22 04:07 Temperature 97.8 F 97.8 F Pulse Rate 93 87 Respiratory Rate 16 15 Blood Pressure 183/61 H 189/59 H 178/69 H Pulse Oximetry 96 96 Oxygen Delivery Method Room Air Room Air 07/19/22 03:37 07/19/22 03:52 07/19/22 04:19 Temperature Pulse Rate Respiratory Rate Blood Pressure 206/78 H 184/56 H 167/46 H Pulse Oximetry Oxygen Delivery Method 07/19/22 05:02 Temperature 97.9 F Pulse Rate 85 Respiratory Rate 15 Blood Pressure 162/58 H Pulse Oximetry 93 Oxygen Delivery Method Room Air BMI result Body Mass Index 33.5 <Jeronimo Dudley MD - Last Filed: 07/18/22 22:42> Vital Signs - 24 hr 07/18/22 18:48 07/18/22 20:03 07/18/22 22:07 Temperature 98.5 F 98.8 F Pulse Rate 95 95 89 Respiratory Rate 15 16 18 Blood Pressure 162/67 H 189/68 H Pulse Oximetry 95 94 96 Oxygen Delivery Method Room Air Room Air Room Air 07/18/22 23:33 07/19/22 01:57 07/19/22 04:07 Temperature 97.8 F 97.8 F Pulse Rate 93 87 Respiratory Rate 16 15 Blood Pressure 183/61 H 189/59 H 178/69 H Pulse Oximetry 96 96 Oxygen Delivery Method Room Air Room Air 07/19/22 03:37 07/19/22 03:52 07/19/22 04:19 Temperature Pulse Rate Respiratory Rate Blood Pressure 206/78 H 184/56 H 167/46 H Pulse Oximetry Oxygen Delivery Method 07/19/22 05:02 Temperature 97.9 F Pulse Rate 85 Respiratory Rate 15 Blood Pressure 162/58 H Pulse Oximetry 93 Oxygen Delivery Method Room Air BMI result Body Mass Index 33.5 <Winnie Murphy MD - Last Filed: 07/19/22 07:11> Const General: confusion ( fogginess ) <Jeronimo Dudley MD - Last Filed: 07/18/22 22:42> Orientation/consciousness: confusion ( fogginess ) <Jeronimo Dudley MD - Last Filed: 07/18/22 22:42> Neuro General: confusion ( fogginess ) <Jeronimo Dudley MD - Last Filed: 07/18/22 22:42> Course Reevaluation(s) Reevaluation #1: I was informed by nursing staff that this patient had experienced a transient episode substernal chest pain that was not associated with any dizziness, diaphoresis, shortness of breath, nausea. Patient states that she gets this pain sometimes but that this felt ?far worse?. At the time that I am speaking with the patient she states the pain is completely resolved. On review of the EKG there are noted ST changes in the lateral leads that do not appear to be present when compared to March 2022. <Winnie Murphy MD - Last Filed: 07/19/22 07:11> Time: 04:40 <Winnie Murphy MD - Last Filed: 07/19/22 07:11> Reevaluation #2: Serial troponins are flat and although detected not elevated, EKG remains otherwise unchanged. Patient's challenges with her blood pressure continue and she is frustrated stating that her primary care provider since her into the emergency room for each of her complaints instead of addressing them in the office. There are no findings at this time that would prompt me to adjust patient's medication and I will send her home with her current regimen as she states that she is ?good about taking them as directed?. Will also give her referral to follow-up with cardiology for further evaluation of her complaints regarding persistent hypertension with intermittent complaints of lightheadedness. Patient may benefit from stress testing. <Winnie Murphy MD - Last Filed: 07/19/22 07:11> Time: 07:01 <Winnie Murphy MD - Last Filed: 07/19/22 07:11> Medications Administered Discontinued Medications Generic Name Dose Route Start Last Admin Trade Name Freq PRN Reason Stop Dose Admin Amlodipine Besylate 5 mg 07/19/22 00:19 07/19/22 01:15 Amlodipine Besylate 5 Mg Tablet PO 07/19/22 00:20 5 mg ONCE ONE Administration Protocol <Jeronimo Dudley MD - Last Filed: 07/18/22 22:42> Medications Administered Discontinued Medications Generic Name Dose Route Start Last Admin Trade Name Freq PRN Reason Stop Dose Admin Amlodipine Besylate 5 mg 07/19/22 00:19 07/19/22 01:15 Amlodipine Besylate 5 Mg Tablet PO 07/19/22 00:20 5 mg ONCE ONE Administration Protocol <Winnie Murphy MD - Last Filed: 07/19/22 07:11> Medical Decision Making Lab Data Result diagrams: : 07/18/22 20:55 07/18/22 20:55 <Jeronimo Dudley MD - Last Filed: 07/18/22 22:42> Labs: Lab Results 07/18/22 07/18/22 07/18/22 Range/Units 20:55 20:55 20:55 WBC 10.4 (4.8-10.8) X10*3/uL RBC 5.56 H (4.20-5.50) X10*6/uL Hgb 14.6 (12.0-16.0) g/dl Hct 45.7 (37.0-47.0) % MCV 82.2 (80.0-98.0) fL MCH 26.3 L (27.0-33.0) pg MCHC 31.9 (31.0-35.0) g/dl RDW 14.3 (11.0-16.0) % Plt Count 214 (160-400) X10*3/uL MPV 11.2 (9.4-12.3) fL Absolute Nucleated RBC 0.000 (0.0-0.012) X10*3/uL Nucleated RBC % (auto) 0.0 (0.0-0.2) /100WBC Sodium 141 (135-145) mmol/L Potassium 4.4 (3.3-5.1) mmol/L Chloride 102 (96-108) mmol/L Carbon Dioxide 23 (22-29) mmol/L Anion Gap 20 (12-20) BUN 22 H (9-16) mg/dL Creatinine 1.11 (0.5-1.4) mg/dL Estim Creat Clear Calc 48.5 Estimated GFR 48 Random Glucose 233 H (60-115) mg/dL Calcium 9.4 (8.4-10.2) mg/dL Troponin I High Sens 8.3 D (<3.5-17.0) ng/L 07/19/22 07/19/22 Range/Units 05:07 06:00 WBC (4.8-10.8) X10*3/uL RBC (4.20-5.50) X10*6/uL Hgb (12.0-16.0) g/dl Hct (37.0-47.0) % MCV (80.0-98.0) fL MCH (27.0-33.0) pg MCHC (31.0-35.0) g/dl RDW (11.0-16.0) % Plt Count (160-400) X10*3/uL MPV (9.4-12.3) fL Absolute Nucleated RBC (0.0-0.012) X10*3/uL Nucleated RBC % (auto) (0.0-0.2) /100WBC Sodium (135-145) mmol/L Potassium (3.3-5.1) mmol/L Chloride (96-108) mmol/L Carbon Dioxide (22-29) mmol/L Anion Gap (12-20) BUN (9-16) mg/dL Creatinine (0.5-1.4) mg/dL Estim Creat Clear Calc Estimated GFR Random Glucose (60-115) mg/dL Calcium (8.4-10.2) mg/dL Troponin I High Sens 8.5 8.6 (<3.5-17.0) ng/L <Jeronimo Dudley MD - Last Filed: 07/18/22 22:42> Lab Results 07/18/22 07/18/22 07/18/22 Range/Units 20:55 20:55 20:55 WBC 10.4 (4.8-10.8) X10*3/uL RBC 5.56 H (4.20-5.50) X10*6/uL Hgb 14.6 (12.0-16.0) g/dl Hct 45.7 (37.0-47.0) % MCV 82.2 (80.0-98.0) fL MCH 26.3 L (27.0-33.0) pg MCHC 31.9 (31.0-35.0) g/dl RDW 14.3 (11.0-16.0) % Plt Count 214 (160-400) X10*3/uL MPV 11.2 (9.4-12.3) fL Absolute Nucleated RBC 0.000 (0.0-0.012) X10*3/uL Nucleated RBC % (auto) 0.0 (0.0-0.2) /100WBC Sodium 141 (135-145) mmol/L Potassium 4.4 (3.3-5.1) mmol/L Chloride 102 (96-108) mmol/L Carbon Dioxide 23 (22-29) mmol/L Anion Gap 20 (12-20) BUN 22 H (9-16) mg/dL Creatinine 1.11 (0.5-1.4) mg/dL Estim Creat Clear Calc 48.5 Estimated GFR 48 Random Glucose 233 H (60-115) mg/dL Calcium 9.4 (8.4-10.2) mg/dL Troponin I High Sens 8.3 D (<3.5-17.0) ng/L 07/19/22 07/19/22 Range/Units 05:07 06:00 WBC (4.8-10.8) X10*3/uL RBC (4.20-5.50) X10*6/uL Hgb (12.0-16.0) g/dl Hct (37.0-47.0) % MCV (80.0-98.0) fL MCH (27.0-33.0) pg MCHC (31.0-35.0) g/dl RDW (11.0-16.0) % Plt Count (160-400) X10*3/uL MPV (9.4-12.3) fL Absolute Nucleated RBC (0.0-0.012) X10*3/uL Nucleated RBC % (auto) (0.0-0.2) /100WBC Sodium (135-145) mmol/L Potassium (3.3-5.1) mmol/L Chloride (96-108) mmol/L Carbon Dioxide (22-29) mmol/L Anion Gap (12-20) BUN (9-16) mg/dL Creatinine (0.5-1.4) mg/dL Estim Creat Clear Calc Estimated GFR Random Glucose (60-115) mg/dL Calcium (8.4-10.2) mg/dL Troponin I High Sens 8.5 8.6 (<3.5-17.0) ng/L <Winnie Murphy MD - Last Filed: 07/19/22 07:11> ECG Data Attestation: I personally reviewed and interpreted this ECG as follows: <Winnie Murphy MD - Last Filed: 07/19/22 07:11> Prior ECG tracings: available for review <Winnie Murphy MD - Last Filed: 07/19/22 07:11> Interpretation: 0441: NSR, HR-87, no STEMI but T-wave inversion, MA/QRS/QTC are within normal limits. 0603: NSR <Winnie Murphy MD - Last Filed: 07/19/22 07:11> Discharge Plan Discharge Clinical Impression: Hypertension <Jeronimo Dudley MD - Last Filed: 07/18/22 22:42> Patient Disposition: Home, Self-Care <Jeronimo Dudley MD - Last Filed: 07/18/22 22:42> Instructions: DASH Eating Plan (ED), Hypertension (ED) <Jeronimo Dudley MD - Last Filed: 07/18/22 22:42> Additional Instructions: 1. Resume all home medications as prescribed. 2. You have been provided with a referral to follow-up with cardiology and should call the office on Wednesday. In addition, please call the office of your primary care provider on Wednesday as well. You need to discuss your blood pressure as well as your concerns for lig htheadedness with your primary care provider as well as your rehab trainer. The workup for these conditions here in the emergency room have not elucidated acute findings but may warrant further workup in the outpatient setting. Return to the ER if you have any acute changes or significant worsening of your symptoms. <Jeronimo Dudley MD - Last Filed: 07/18/22 22:42> Prescriptions: No Action citalopram 40 mg tablet 40 mg PO DAILY Qty: 90 3RF cholecalciferol (vitamin D3) 50 mcg (2,000 unit) capsule 50 mcg PO DAILY Qty: 30 5RF atorvastatin 40 mg tablet 40 mg PO BEDTIME 90 Days Qty: 90 1RF diltiazem HCl 240 mg capsule,extended release 24hr 240 mg PO DAILY Qty: 90 0RF pantoprazole 40 mg tablet,delayed release (DR/EC) 40 mg PO BID Qty: 180 0RF (DME) FreeStyle Kelly 2 Sensor Kit See Rx Instructions .ROUTE .MEDSUPPLY Qty: 2 2RF Rx Instructions: As directed every 2 weeks buspirone 5 mg tablet 5 mg PO DAILY Qty: 30 0RF metoprolol tartrate 50 mg tablet 50 mg PO BID (DME) FreeStyle Precision Jamaal Strips Strip See Rx Instructions .ROUTE .MEDSUPPLY Qty: 50 5RF Rx Instructions: once a day for calibration albuterol sulfate 90 mcg/actuation HFA aerosol inhaler 2 puff inhalation Q4H PRN (Reason: for wheezing) Qty: 8.5 0RF budesonide-formoterol [Symbicort] 160-4.5 mcg/actuation HFA aerosol inhaler 2 puff inhalation BID Qty: 10.2 1RF insulin lispro [Humalog KwikPen Insulin] 100 unit/mL insulin pen 24 unit subcut TID Qty: 15 0RF cefuroxime axetil 250 mg tablet 250 mg PO BID 7 Days Qty: 14 0RF prednisone 20 mg tablet 1 tab PO DAILY Jardiance 10 mg tablet 1 tab PO DAILY Lantus Solostar U-100 Insulin 100 unit/mL (3 mL) insulin pen 50 unit subcut DAILY hydralazine 25 mg Tablet 50 mg PO BID Qty: 120 0RF Protocol: Hold for SBP< HOLD for SBP < : 90 spironolactone 25 mg Tablet 25 mg PO DAILY Qty: 30 0RF Protocol: Hold for SBP< HOLD for SBP < : 90 docusate sodium 100 mg Capsule 100 mg PO DAILY PRN (Reason: Constipation) Qty: 30 0RF dicyclomine 10 mg Capsule 10 mg PO QIDACHS PRN (Reason: abdominal pain) Qty: 30 0RF azithromycin 250 mg tablet 250 mg PO DAILY 4 Days Qty: 4 0RF Rx Instructions: start on day 2 of therapy albuterol sulfate 2.5 mg/0.5 mL solution for nebulization 2.5 mg inhalation Q6H PRN (Reason: copd) Qty: 30 0RF guaifenesin 100 mg/5 mL liquid 100 mg PO Q4H PRN (Reason: cough) furosemide 20 mg tablet 20 mg PO DAILY Rx Instructions: pt was on 7 day supply, notes shew has two days left Eliquis 5 mg tablet 5 mg PO BID melatonin 5 mg capsule 5 mg PO BEDTIME PRN (Reason: Sleep) <Jeronimo Dudley MD - Last Filed: 07/18/22 22:42> Referrals: Tamar Chambers MD [Primary Care Provider] - (Patient has concerns regarding her blood pressure control and she has been worked up here in the emergency room twice within the past 2 weeks. She may benefit from some adjustment in medications.) Brad French MD [Physician] - (Patient is been seen here a few times with lightheadedness, intermittent sharp chest pains, poorly controlled hypertension. Patient has many concerns regarding her blood pressure and lightheadedness. Have also sent my note to patient's primary care provider.) <Jeronimo Dudley MD - Last Filed: 07/18/22 22:42>
[2022-07-18 23:33] VITALS: BP 183/61; PULSE 93; RESP 16; TEMP 36.6; O2SAT 96
[2022-07-19] VITALS (7 sets, daily range): BP systolic 162–206; BP diastolic 46–78; PULSE 85–92; RESP 12–15; TEMP 36.5–36.6; O2SAT 93–96
[2022-07-19] MEDS: amLODIPine Besylate 5 MG TABLET PO (01:15)
--- NOTE | 2022-07-19 03:37 | PC.NURSE ---
Assumed care of pt.
--- NOTE | 2022-07-19 04:13 | PC.NURSE ---
Patient's bp at 206/78 @0337 while in Semi-cadet's position. 184/56 @0352 and 178/69 @0407 while sitting. Provider notified. Will continue to monitor.
--- NOTE | 2022-07-19 04:40 | ECG_ITS ---
Test Reason : chest pain Blood Pressure : / mmHG Vent. Rate : 087 BPM Atrial Rate : 087 BPM P-R Int : 188 ms QRS Dur : 084 ms QT Int : 364 ms P-R-T Axes : 044 040 092 degrees QTc Int : 438 ms Normal sinus rhythm RSR' or QR pattern in V1 suggests right ventricular conduction delay Possible Left atrial enlargement T wave abnormality, consider lateral ischemia Abnormal ECG When compared with ECG of 18-JUL-2022 20:38, Nonspecific T wave abnormality now evident in Inferior leads T wave inversion now evident in Anterolateral leads Referred By: Generic ED Physician Electronically Signed By:YUDY DEE MD
--- NOTE | 2022-07-19 05:00 | PC.NURSE ---
pt complaining of chest pain. EKG order and given to provide to sign off. pt on bedside monitor. 04/15 pain. provider is aware. Trop collected and sent per order. Will continue to monitor.
[2022-07-19 05:30] LABS: Troponin-I High Sensitivity 8.5 ng/L (<3.5-17.0)
--- NOTE | 2022-07-19 05:54 | ECG_ITS ---
Test Reason : chest pain Blood Pressure : / mmHG Vent. Rate : 084 BPM Atrial Rate : 084 BPM P-R Int : 190 ms QRS Dur : 084 ms QT Int : 342 ms P-R-T Axes : 050 040 101 degrees QTc Int : 404 ms Normal sinus rhythm T wave abnormality, consider lateral ischemia Abnormal ECG When compared with ECG of 19-JUL-2022 04:41, No significant change was found Referred By: Winnie Murphy Electronically Signed By:YUDY DEE MD
--- NOTE | 2022-07-19 06:15 | PC.NURSE ---
Checked in with pt in r/t chest pain. chest pain has resolved
[2022-07-19 06:37] LABS: Troponin-I High Sensitivity 8.6 ng/L (<3.5-17.0)
== END 2022-07-19 08:06 | disposition home or self-care (01) ==
PROVIDERS: Emergency Medicine; Emergency Provider Student in an Organized Health Care Education/Training Program; PCP Internal Medicine
DX: I10 Essential (primary) hypertension (principal); R07.9 Chest pain, unspecified; E11.9 Type 2 diabetes mellitus without complications; E78.5 Hyperlipidemia, unspecified; Z86.711 Personal history of pulmonary embolism; Z87.891 Personal history of nicotine dependence; Z79.899 Other long term (current) drug therapy; Z79.01 Long term (current) use of anticoagulants; Z79.4 Long term (current) use of insulin; Z79.02 Long term (current) use of antithrombotics/antiplatelets
CPT/HCPCS: 36415; 80048; 84484; 85027; 93005; 99283; 99285

== ENCOUNTER 2022-10-14 11:35 | Emergency (ER) | payer MEDICARE, OTHER, SELFPAY ==
--- NOTE | ~2022-10-14 | XR_ITS ---
EXAMINATION: XR CHEST CLINICAL INFORMATION: Chest discomfort with cough. COMPARISON: 04/05/2022 chest radiographs. TECHNIQUE: 2 views of the chest were obtained. FINDINGS: The lungs show mild linear atelectasis/scarring bilaterally with similar appearance. The heart and mediastinal structures are unremarkable. Multilevel healed right rib fractures are noted. A cervical fixation plate is unremarkable. XR/XR chest 2V IMPRESSION: Mild bilateral linear atelectasis/scarring without acute cardiopulmonary process.
[2022-10-14 11:57] VITALS: BP 167/54; PULSE 89; RESP 19; TEMP 36.7; O2SAT 96; BMI 28.3
--- NOTE | 2022-10-14 11:57 | ED_ITS ---
HPI - Weakness General Chief complaint: Upper Respiratory Symptoms Stated complaint: not feeling well x3 weeks Time Seen by Provider: 10/14/22 14:51 Related Data Home Medications Medication Instructions Recorded Confirmed guaifenesin 100 mg/5 mL oral liquid 100 mg PO Q4H PRN cough 12/09/20 10/03/21 metoprolol tartrate 50 mg tablet 50 mg PO BID 12/25/20 10/03/21 apixaban 5 mg tablet (Eliquis) 5 mg PO BID 09/30/21 10/03/21 furosemide 20 mg tablet 20 mg PO DAILY 09/30/21 10/03/21 melatonin 5 mg capsule 5 mg PO BEDTIME PRN Sleep 09/30/21 10/03/21 empagliflozin 10 mg tablet 1 tab PO DAILY 10/03/21 10/03/21 (Jardiance) insulin glargine 100 unit/mL (3 50 unit subcut DAILY 10/03/21 10/03/21 mL) subcutaneous pen (Lantus Solostar U-100 Insulin) prednisone 20 mg tablet 1 tab PO DAILY 10/03/21 10/03/21 Previous Rx's Medication Instructions Recorded citalopram 40 mg tablet 40 mg PO DAILY #90 tabs 06/08/20 cholecalciferol (vitamin D3) 50 50 mcg PO DAILY #30 caps 07/25/20 mcg (2,000 unit) capsule atorvastatin 40 mg tablet 40 mg PO BEDTIME 90 days #90 tabs 08/15/20 diltiazem HCl 240 mg 240 mg PO DAILY #90 caps 09/13/20 capsule,extended release 24 hr pantoprazole 40 mg tablet,delayed 40 mg PO BID #180 tabs 09/13/20 release flash glucose sensor (FreeStyle #2 ea 11/13/20 Kelly 2 Sensor kit) buspirone 5 mg tablet 5 mg PO DAILY #30 tabs 12/16/20 FreeStyle Precision Jamaal Strips #50 ea 01/10/21 (blood sugar diagnostic) albuterol sulfate 90 mcg/actuation 2 puff inhalation Q4H PRN for 02/24/21 aerosol inhaler wheezing #8.5 grams Symbicort 160 mcg-4.5 2 puff inhalation BID #10.2 grams 09/26/21 mcg/actuation HFA aerosol inhaler (budesonide-formoterol) albuterol sulfate 2.5 mg/0.5 mL 2.5 mg (0.5 mL) inhalation Q6H PRN 10/06/21 solution for nebulization copd #30 ea azithromycin 250 mg tablet 250 mg PO DAILY 4 days #4 tabs 10/06/21 dicyclomine 10 mg capsule 10 mg PO QIDACHS PRN abdominal 10/06/21 pain #30 caps docusate sodium 100 mg capsule 100 mg PO DAILY PRN Constipation 10/06/21 #30 caps hydralazine 25 mg tablet 50 mg PO BID #120 tabs 10/06/21 spironolactone 25 mg tablet 25 mg PO DAILY #30 tabs 10/06/21 insulin lispro 100 unit/mL 24 unit (0.24 mL) subcut TID #15 mL 05/05/22 subcutaneous pen (Humalog KwikPen (U-100) Insulin) cefuroxime axetil 250 mg tablet 250 mg PO BID 7 days #14 tabs 07/17/22 doxycycline monohydrate 100 mg 100 mg PO BID #14 caps 10/14/22 capsule (Monodox) prednisone 20 mg tablet 40 mg PO DAILY #14 tabs 10/14/22 Allergies Allergy/AdvReac Type Severity Reaction Status Date / Time Latex, Natural Rubber Allergy Severe blisters Verified 10/14/22 12:00 Sulfa (Sulfonamide Allergy Mild ITCHING, Verified 10/14/22 12:00 Antibiotics) rash [SULFA (SULFONAMIDE ANTIBIOTICS)] nystatin Allergy Unknown rash Verified 10/14/22 12:00 isosorbide [From Imdur] AdvReac Unknown HEADACHES, Verified 10/14/22 12:00 headache tizanidine AdvReac Unknown weakness, Verified 10/14/22 12:00 Hellucination [facility] Past Medical History Medical History CAD (coronary artery disease) COPD (chronic obstructive pulmonary disease) Diabetes type 2, uncontrolled Dyslipidemia Hypertension Lactic acidosis 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 Father No problems noted. Social History Social History Household Members: Family Housing: House Do you presently have visiting nurse or other home services: Yes Alcohol intake: current Alcohol intake frequency: does not drink Patient Tobacco Use Status: Former Tobacco user Quit Date: 1993 Years Smoked: 10 +/- Smoked in Last 30 Days: No Use of substances other than those prescribed or required for medical reasons: No Advance Directives: Yes Advance Directives Information Provided: No Advance Directives on File: No Physical Exam Vital Signs: Vital Signs: Last Vital Signs Temp 98.4 F 10/14/22 15:47 Pulse 85 10/14/22 15:47 Resp 20 10/14/22 15:47 BP 156/54 H 10/14/22 15:47 Pulse Ox 97 10/14/22 15:47 O2 Del Method 10/14/22 15:47 BMI result Body Mass Index 28.3 Course Course Course Narrative: This is a rapid medical exam. Deferred additional HPI, ROS, PE to primary provider. 71 yo female with past medical history of diabetes, PE on eliquis, dyslipidemia, hypertension, CAD, obstructive sleep apnea not using CPAP at night, COPD here with complaints of PRATER, chest discomfort with coughing, cough x 3 weeks with no fevers, chills. Will check EKG, labs, CXR, covid testing. VSS Medications Administered Discontinued Medications Generic Name Dose Route Start Last Admin Trade Name Freq PRN Reason Stop Dose Admin Doxycycline Monohydrate 100 mg 10/14/22 15:33 10/14/22 15:49 Doxycycline Monohydrate 100 Mg Capsule PO 10/14/22 15:34 100 mg ONCE ONE Administration Prednisone 60 mg 10/14/22 15:33 10/14/22 15:49 Prednisone 20 Mg Tablet PO 10/14/22 15:34 60 mg ONCE ONE Administration Medical Decision Making Lab Data 10/14/22 12:22 10/14/22 12:22 Labs: Lab Results 10/14/22 10/14/22 10/14/22 Range/Units 12:22 12:22 12:22 WBC 11.3 H (4.8-10.8) X10*3/uL RBC 5.45 (4.20-5.50) X10*6/uL Hgb 14.5 (12.0-16.0) g/dl Hct 44.7 (37.0-47.0) % MCV 82.0 (80.0-98.0) fL MCH 26.6 L (27.0-33.0) pg MCHC 32.4 (31.0-35.0) g/dl RDW 15.1 (11.0-16.0) % Plt Count 270 D (160-400) X10*3/uL MPV 9.5 (9.4-12.3) fL Immature Gran % (Auto) 0.4 (0.0-0.4) % Neut % (Auto) 72.7 (45-73) % Lymph % (Auto) 15.9 L (20-40) % [place] % (Auto) 6.1 (2-11) % Eos % (Auto) 4.0 (0-4) % Baso % (Auto) 0.9 (0-2) % Lymph # (Auto) 1.8 (1.2-4.9) X10*3/uL [place] # (Auto) 0.7 (0.1-1.2) X10*3/uL Eos # (Auto) 0.5 H (0.0-0.4) X10*3/uL Baso # (Auto) 0.1 (0.0-0.2) X10*3/uL Abs Immat Gran (auto) 0.04 H (0.00-0.03) X10*3/uL Absolute Neuts (auto) 8.3 (2.0-8.3) x10*3/uL Absolute Nucleated RBC 0.000 (0.0-0.012) X10*3/uL Nucleated RBC % (auto) 0.0 (0.0-0.2) /100WBC Sodium 139 (135-145) mmol/L Potassium 4.3 (3.3-5.1) mmol/L Chloride 101 (96-108) mmol/L Carbon Dioxide 23 (22-29) mmol/L Anion Gap 19 (12-20) BUN 32 H (9-16) mg/dL Creatinine 1.41 H (0.5-1.4) mg/dL Estim Creat Clear Calc 35.2 Estimated GFR 37 Random Glucose 226 H (60-115) mg/dL Calcium 9.5 (8.4-10.2) mg/dL Total Bilirubin 0.7 (0.0-1.0) mg/dL Direct Bilirubin 0.2 (0.0-0.5) mg/dL AST 13 (5-31) U/L ALT 18 (0-31) U/L Alkaline Phosphatase 130 H (39-117) U/L Troponin I High Sens 4.9 (<3.5-17.0) ng/L B-Natriuretic Peptide (<100) pg/mL Total Protein 7.2 (6.5-8.0) g/dL Albumin 4.3 (3.5-5.0) g/dL Influenza Type A (PCR) (Negative) Influenza Type B (PCR) (Negative) RSV RNA Qual (PCR) (Negative) SARS-CoV-2 RNA (RT-PCR) (Negative) 10/14/22 10/14/22 Range/Units 12:22 12:22 WBC (4.8-10.8) X10*3/uL RBC (4.20-5.50) X10*6/uL Hgb (12.0-16.0) g/dl Hct (37.0-47.0) % MCV (80.0-98.0) fL MCH (27.0-33.0) pg MCHC (31.0-35.0) g/dl RDW (11.0-16.0) % Plt Count (160-400) X10*3/uL MPV (9.4-12.3) fL Immature Gran % (Auto) (0.0-0.4) % Neut % (Auto) (45-73) % Lymph % (Auto) (20-40) % [place] % (Auto) (2-11) % Eos % (Auto) (0-4) % Baso % (Auto) (0-2) % Lymph # (Auto) (1.2-4.9) X10*3/uL [place] # (Auto) (0.1-1.2) X10*3/uL Eos # (Auto) (0.0-0.4) X10*3/uL Baso # (Auto) (0.0-0.2) X10*3/uL Abs Immat Gran (auto) (0.00-0.03) X10*3/uL Absolute Neuts (auto) (2.0-8.3) x10*3/uL Absolute Nucleated RBC (0.0-0.012) X10*3/uL Nucleated RBC % (auto) (0.0-0.2) /100WBC Sodium (135-145) mmol/L Potassium (3.3-5.1) mmol/L Chloride (96-108) mmol/L Carbon Dioxide (22-29) mmol/L Anion Gap (12-20) BUN (9-16) mg/dL Creatinine (0.5-1.4) mg/dL Estim Creat Clear Calc Estimated GFR Random Glucose (60-115) mg/dL Calcium (8.4-10.2) mg/dL Total Bilirubin (0.0-1.0) mg/dL Direct Bilirubin (0.0-0.5) mg/dL AST (5-31) U/L ALT (0-31) U/L Alkaline Phosphatase (39-117) U/L Troponin I High Sens (<3.5-17.0) ng/L B-Natriuretic Peptide 27 (<100) pg/mL Total Protein (6.5-8.0) g/dL Albumin (3.5-5.0) g/dL Influenza Type A (PCR) NEGATIVE (Negative) Influenza Type B (PCR) NEGATIVE (Negative) RSV RNA Qual (PCR) NEGATIVE (Negative) SARS-CoV-2 RNA (RT-PCR) NEGATIVE (Negative) Discharge Plan Discharge Clinical Impression: Bronchitis Patient Disposition: Home, Self-Care Instructions: Acute Bronchitis (ED) Additional Instructions: FOLLOW-UP WITH YOU PRIMARY CARE PHYSICIAN, TAKE ANTIBIOTIC DIRECTED RETURN TO THE EMERGENCY ROOM IF YOU WORSE IF FEVER ,IF SHORT OF BREATH ANY CONCERN Prescriptions: New doxycycline monohydrate [Monodox] 100 mg capsule 100 mg PO BID Qty: 14 0RF prednisone 20 mg tablet 40 mg PO DAILY Qty: 14 0RF No Action citalopram 40 mg tablet 40 mg PO DAILY Qty: 90 3RF cholecalciferol (vitamin D3) 50 mcg (2,000 unit) capsule 50 mcg PO DAILY Qty: 30 5RF atorvastatin 40 mg tablet 40 mg PO BEDTIME 90 Days Qty: 90 1RF diltiazem HCl 240 mg capsule,extended release 24hr 240 mg PO DAILY Qty: 90 0RF pantoprazole 40 mg tablet,delayed release (DR/EC) 40 mg PO BID Qty: 180 0RF (DME) FreeStyle Kelly 2 Sensor Kit See Rx Instructions .ROUTE .MEDSUPPLY Qty: 2 2RF Rx Instructions: As directed every 2 weeks buspirone 5 mg tablet 5 mg PO DAILY Qty: 30 0RF metoprolol tartrate 50 mg tablet 50 mg PO BID (DME) FreeStyle Precision Jamaal Strips Strip See Rx Instructions .ROUTE .MEDSUPPLY Qty: 50 5RF Rx Instructions: once a day for calibration albuterol sulfate 90 mcg/actuation HFA aerosol inhaler 2 puff inhalation Q4H PRN (Reason: for wheezing) Qty: 8.5 0RF budesonide-formoterol [Symbicort] 160-4.5 mcg/actuation HFA aerosol inhaler 2 puff inhalation BID Qty: 10.2 1RF insulin lispro [Humalog KwikPen Insulin] 100 unit/mL insulin pen 24 unit subcut TID Qty: 15 0RF cefuroxime axetil 250 mg tablet 250 mg PO BID 7 Days Qty: 14 0RF prednisone 20 mg tablet 1 tab PO DAILY Jardiance 10 mg tablet 1 tab PO DAILY Lantus Solostar U-100 Insulin 100 unit/mL (3 mL) insulin pen 50 unit subcut DAILY hydralazine 25 mg Tablet 50 mg PO BID Qty: 120 0RF Protocol: Hold for SBP< HOLD for SBP < : 90 spironolactone 25 mg Tablet 25 mg PO DAILY Qty: 30 0RF Protocol: Hold for SBP< HOLD for SBP < : 90 docusate sodium 100 mg Capsule 100 mg PO DAILY PRN (Reason: Constipation) Qty: 30 0RF dicyclomine 10 mg Capsule 10 mg PO QIDACHS PRN (Reason: abdominal pain) Qty: 30 0RF azithromycin 250 mg tablet 250 mg PO DAILY 4 Days Qty: 4 0RF Rx Instructions: start on day 2 of therapy albuterol sulfate 2.5 mg/0.5 mL solution for nebulization 2.5 mg inhalation Q6H PRN (Reason: copd) Qty: 30 0RF guaifenesin 100 mg/5 mL liquid 100 mg PO Q4H PRN (Reason: cough) furosemide 20 mg tablet 20 mg PO DAILY Rx Instructions: pt was on 7 day supply, notes shew has two days left Eliquis 5 mg tablet 5 mg PO BID melatonin 5 mg capsule 5 mg PO BEDTIME PRN (Reason: Sleep)
--- NOTE | 2022-10-14 11:59 | ECG_ITS ---
Test Reason : chest pain Blood Pressure : / mmHG Vent. Rate : 083 BPM Atrial Rate : 083 BPM P-R Int : 182 ms QRS Dur : 080 ms QT Int : 376 ms P-R-T Axes : 043 039 075 degrees QTc Int : 441 ms Normal sinus rhythm Normal ECG When compared with ECG of 19-JUL-2022 06:03, Nonspecific T wave abnormality no longer evident in Inferior leads T wave inversion no longer evident in Anterolateral leads Referred By: Sheri Webber Electronically Signed By:NELSON PLASCENCIA MD
[2022-10-14 12:28] LABS: MANUAL DIFF FLAG NO
[2022-10-14 12:30] LABS: Basophils Absolute Auto 0.1 X10*3/uL (0.0-0.2); Basophils Percent Auto 0.9 % (0-2); Eosinophils Absolute Auto 0.5 X10*3/uL (0.0-0.4); Hematocrit 44.7 % (37.0-47.0); Hemoglobin 14.5 g/dl (12.0-16.0); Imm Gran Abs Auto 0.04 X10*3/uL (0.00-0.03); Imm Gran Pct Auto 0.4 % (0.0-0.4); Lymphocytes Absolute Auto 1.8 X10*3/uL (1.2-4.9); Lymphocytes Percent Auto 15.9 % (20-40); Mean Corpuscular HGB Conc 32.4 g/dl (31.0-35.0); Mean Corpuscular Hemoglobin 26.6 pg (27.0-33.0); Mean Platelet Volume 9.5 fL (9.4-12.3); Monocytes Absolute Auto 0.7 X10*3/uL (0.1-1.2); Monocytes Percent Auto 6.1 % (2-11); Neutrophils Absolute Auto 8.3 x10*3/uL (2.0-8.3); Neutrophils Percent Auto 72.7 % (45-73); Platelet Count 270 X10*3/uL (160-400); Red Blood Count 5.45 X10*6/uL (4.20-5.50); Red Cell Distribution Width 15.1 % (11.0-16.0); White Blood Count 11.3 X10*3/uL (4.8-10.8)
[2022-10-14 12:50] LABS: Alanine Aminotransferase 18 U/L (0-31); Albumin Level 4.3 g/dL (3.5-5.0); Alkaline Phosphatase 130 U/L (39-117); Anion Gap 19 (12-20); Aspartate Amino Transferase 13 U/L (5-31); Bilirubin Direct 0.2 mg/dL (0.0-0.5); Bilirubin Total 0.7 mg/dL (0.0-1.0); Blood Urea Nitrogen 32 mg/dL (9-16); Calcium 9.5 mg/dL (8.4-10.2); Carbon Dioxide 23 mmol/L (22-29); Chloride 101 mmol/L (96-108); Creatinine Clr Calc Pharmacy 35.2; Estimated Glomerular Filt Rate 37; Glucose Random 226 mg/dL (60-115); Potassium 4.3 mmol/L (3.3-5.1); Sodium 139 mmol/L (135-145); Total Protein 7.2 g/dL (6.5-8.0)
[2022-10-14 12:53] LABS: B Type Natriuretic Peptide 27 pg/mL (<100)
[2022-10-14 13:09] LABS: Influenza A PCR NEGATIVE (Negative); Influenza B PCR NEGATIVE (Negative); Resp Syncy Virus RNA Qual PCR NEGATIVE (Negative); SARS COV2 PCR INHOUSE NEGATIVE (Negative)
[2022-10-14 13:50] LABS: Troponin-I High Sensitivity 4.9 ng/L (<3.5-17.0)
--- NOTE | 2022-10-14 14:56 | ED.URI ---
HPI - URI/Sore Throat General Chief Complaint: Upper Respiratory Symptoms Stated Complaint: not feeling well x3 weeks Time Seen by Provider: 10/14/22 14:51 Source: patient Mode of arrival: ambulatory History of Present Illness HPI Narrative: THIS IS A DOUGLAS 71 YEARS OLD FEMALE PRESENTED TO THE EMERGENCY DEPARTMENT WITH A CHIEF COMPLAINT OF COUGH CONGESTION MALAISE. SHE HAD BEEN TAKING [id number] MEDICATION WITHOUT IMPROVEMENT. SHE DENIES ANY FEVER CHILLS VOMITING. SHE HAS HISTORY OF COPD, TYPE 2 DIABETES, HISTORY OF CAD MD elicited complaint: cough Pertinent past history: other (COPD) Onset (ago): day(s) (3) Consistency: constant Severity: moderate Description of mucous: clear Able to tolerate fluids by mouth: Yes Exacerbating factors: nothing Relieving factors: nothing Associated symptoms: cough Related Data Home Medications Medication Instructions Recorded Confirmed guaifenesin 100 mg/5 mL oral liquid 100 mg PO Q4H PRN cough 12/09/20 10/03/21 metoprolol tartrate 50 mg tablet 50 mg PO BID 12/25/20 10/03/21 apixaban 5 mg tablet (Eliquis) 5 mg PO BID 09/30/21 10/03/21 furosemide 20 mg tablet 20 mg PO DAILY 09/30/21 10/03/21 melatonin 5 mg capsule 5 mg PO BEDTIME PRN Sleep 09/30/21 10/03/21 empagliflozin 10 mg tablet 1 tab PO DAILY 10/03/21 10/03/21 (Jardiance) insulin glargine 100 unit/mL (3 50 unit subcut DAILY 10/03/21 10/03/21 mL) subcutaneous pen (Lantus Solostar U-100 Insulin) prednisone 20 mg tablet 1 tab PO DAILY 10/03/21 10/03/21 Previous Rx's Medication Instructions Recorded citalopram 40 mg tablet 40 mg PO DAILY #90 tabs 06/08/20 cholecalciferol (vitamin D3) 50 50 mcg PO DAILY #30 caps 07/25/20 mcg (2,000 unit) capsule atorvastatin 40 mg tablet 40 mg PO BEDTIME 90 days #90 tabs 08/15/20 diltiazem HCl 240 mg 240 mg PO DAILY #90 caps 09/13/20 capsule,extended release 24 hr pantoprazole 40 mg tablet,delayed 40 mg PO BID #180 tabs 09/13/20 release flash glucose sensor (FreeStyle #2 ea 11/13/20 Kelly 2 Sensor kit) buspirone 5 mg tablet 5 mg PO DAILY #30 tabs 12/16/20 FreeStyle Precision Jamaal Strips #50 ea 01/10/21 (blood sugar diagnostic) albuterol sulfate 90 mcg/actuation 2 puff inhalation Q4H PRN for 02/24/21 aerosol inhaler wheezing #8.5 grams Symbicort 160 mcg-4.5 2 puff inhalation BID #10.2 grams 09/26/21 mcg/actuation HFA aerosol inhaler (budesonide-formoterol) albuterol sulfate 2.5 mg/0.5 mL 2.5 mg (0.5 mL) inhalation Q6H PRN 10/06/21 solution for nebulization copd #30 ea azithromycin 250 mg tablet 250 mg PO DAILY 4 days #4 tabs 10/06/21 dicyclomine 10 mg capsule 10 mg PO QIDACHS PRN abdominal 10/06/21 pain #30 caps docusate sodium 100 mg capsule 100 mg PO DAILY PRN Constipation 10/06/21 #30 caps hydralazine 25 mg tablet 50 mg PO BID #120 tabs 10/06/21 spironolactone 25 mg tablet 25 mg PO DAILY #30 tabs 10/06/21 insulin lispro 100 unit/mL 24 unit (0.24 mL) subcut TID #15 mL 05/05/22 subcutaneous pen (Humalog KwikPen (U-100) Insulin) cefuroxime axetil 250 mg tablet 250 mg PO BID 7 days #14 tabs 07/17/22 doxycycline monohydrate 100 mg 100 mg PO BID #14 caps 10/14/22 capsule (Monodox) prednisone 20 mg tablet 40 mg PO DAILY #14 tabs 10/14/22 Allergies Allergy/AdvReac Type Severity Reaction Status Date / Time Latex, Natural Rubber Allergy Severe blisters Verified 10/14/22 12:00 Sulfa (Sulfonamide Allergy Mild ITCHING, Verified 10/14/22 12:00 Antibiotics) rash [SULFA (SULFONAMIDE ANTIBIOTICS)] nystatin Allergy Unknown rash Verified 10/14/22 12:00 isosorbide [From Imdur] AdvReac Unknown HEADACHES, Verified 10/14/22 12:00 headache tizanidine AdvReac Unknown weakness, Verified 10/14/22 12:00 Hellucination Review of Systems Constitutional: Constitutional: Reports no additional constitutional complaints Cardiovascular: Cardiovascular: Reports no additional cardiovascular complaints Respiratory: Respiratory: Reports cough Genitourinary: Genitourinary: Reports no additional female genitourinary complaints Neurologic: Reports system reviewed and no additional complaints, except as documented [facility] Past Medical History Medical History CAD (coronary artery disease) COPD (chronic obstructive pulmonary disease) Diabetes type 2, uncontrolled Dyslipidemia Hypertension Lactic acidosis assisted (current) use of insulin Obesity Obstructive sleep apnea Pulmonary embolism Respiratory failure Surgical History History of cardiac cath History of carpal tunnel surgery History of cholecystectomy History of lobectomy of lung Status post tracheoplasty Family History Family History Mother No problems noted. Father No problems noted. Social History Social History Household Members: Family Housing: House Do you presently have visiting nurse or other home services: Yes Alcohol intake: current Alcohol intake frequency: does not drink Patient Tobacco Use Status: Former Tobacco user Quit Date: 1993 Smoked: 10 +/- Smoked in Last 30 Days: No Use of substances other than those prescribed or required for medical reasons: No Advance Directives: Yes Advance Directives Information Provided: No Advance Directives on File: No Physical Exam Vital Signs: Vital Signs: Last Vital Signs Temp 98.4 F 10/14/22 15:47 Pulse 85 10/14/22 15:47 Resp 20 10/14/22 15:47 BP 156/54 H 10/14/22 15:47 Pulse Ox 97 10/14/22 15:47 O2 Del Method 10/14/22 15:47 BMI result Body Mass Index 28.3 Const: Other: SHE LOOKS WELL SHE IS NOT TOXIC-APPEARING OXYGEN SATURATION IS 96% ROOM AIR RR IS 19, HEART RATE IS 89. General: comfortable, no acute distress, well developed and alert Nutritional Appearance: average body habitus Orientation/consciousness: patient oriented x3 Limitations: no limitations HEENT: Head: Yes normal to inspection Face and sinus: Yes normal facial exam Mouth: Normal oral and palatal mucosa present Throat: Yes posterior oropharynx normal Neck: Neck: Yes full ROM and Yes no lymphadenopathy Chest: Chest palpation & inspection: normal inspection of the chest Resp: Effort & Inspection: normal respiratory effort Auscultation: rhonchi Cardio: Jugular venous distension: no JVD Rate: regular rate Rhythm: regular rhythm GI: Inspection: Yes normal to inspection Palpation (GI): Soft to palpation, not firm and nontender Skin: General skin exam: no rashes or lesions noted, elasticity normal and turgor normal Lesions: no lesions Rashes: no rashes Neuro: General: patient oriented x3 Cranial nerves: Yes CN's II-XII intact bilaterally Cognition (Neuro): normal cognition Gait exam (Neuro): Normal gait present Motor exam (neuro): Abnormal motor strength present Medications Administered Discontinued Medications Generic Name Dose Route Start Last Admin Trade Name Freq PRN Reason Stop Dose Admin Doxycycline Monohydrate 100 mg 10/14/22 15:33 10/14/22 15:49 Doxycycline Monohydrate 100 Mg Capsule PO 10/14/22 15:34 100 mg ONCE ONE Administration Prednisone 60 mg 10/14/22 15:33 10/14/22 15:49 Prednisone 20 Mg Tablet PO 10/14/22 15:34 60 mg ONCE ONE Administration Medical Decision Making Medical Decision Making [facility] Narrative: PATIENT PRESENTED WITH COUGH CONGESTION GOING TO GET CHEST X-RAY LABS AND REASSESS Differential Diagnosis Differential Diagnoses: The differential diagnosis associated with the presentation includes DIFFERENTIAL DIAGNOSIS IS BROAD AND INCLUDE THE PNEUMONIA/CHF/BRONCHITIS/PNEUMOTHORAX Admission/Observation Consideration of admission/observation: Escalation of care including admission/observation considered Lab Data [facility] Lab Attestation statement: I reviewed the patient's lab results. 10/14/22 12:22 10/14/22 12:22 Labs: Lab Results 10/14/22 10/14/22 10/14/22 Range/Units 12:22 12:22 12:22 WBC 11.3 H (4.8-10.8) X10*3/uL RBC 5.45 (4.20-5.50) X10*6/uL Hgb 14.5 (12.0-16.0) g/dl Hct 44.7 (37.0-47.0) % MCV 82.0 (80.0-98.0) fL MCH 26.6 L (27.0-33.0) pg MCHC 32.4 (31.0-35.0) g/dl RDW 15.1 (11.0-16.0) % Plt Count 270 D (160-400) X10*3/uL MPV 9.5 (9.4-12.3) fL Immature Gran % (Auto) 0.4 (0.0-0.4) % Neut % (Auto) 72.7 (45-73) % Lymph % (Auto) 15.9 L (20-40) % [place] % (Auto) 6.1 (2-11) % Eos % (Auto) 4.0 (0-4) % Baso % (Auto) 0.9 (0-2) % Lymph # (Auto) 1.8 (1.2-4.9) X10*3/uL [place] # (Auto) 0.7 (0.1-1.2) X10*3/uL Eos # (Auto) 0.5 H (0.0-0.4) X10*3/uL Baso # (Auto) 0.1 (0.0-0.2) X10*3/uL Abs Immat Gran (auto) 0.04 H (0.00-0.03) X10*3/uL Absolute Neuts (auto) 8.3 (2.0-8.3) x10*3/uL Absolute Nucleated RBC 0.000 (0.0-0.012) X10*3/uL Nucleated RBC % (auto) 0.0 (0.0-0.2) /100WBC Sodium 139 (135-145) mmol/L Potassium 4.3 (3.3-5.1) mmol/L Chloride 101 (96-108) mmol/L Carbon Dioxide 23 (22-29) mmol/L Anion Gap 19 (12-20) BUN 32 H (9-16) mg/dL Creatinine 1.41 H (0.5-1.4) mg/dL Estim Creat Clear Calc 35.2 Estimated GFR 37 Random Glucose 226 H (60-115) mg/dL Calcium 9.5 (8.4-10.2) mg/dL Total Bilirubin 0.7 (0.0-1.0) mg/dL Direct Bilirubin 0.2 (0.0-0.5) mg/dL AST 13 (5-31) U/L ALT 18 (0-31) U/L Alkaline Phosphatase 130 H (39-117) U/L Troponin I High Sens 4.9 (<3.5-17.0) ng/L B-Natriuretic Peptide (<100) pg/mL Total Protein 7.2 (6.5-8.0) g/dL Albumin 4.3 (3.5-5.0) g/dL Influenza Type A (PCR) (Negative) Influenza Type B (PCR) (Negative) RSV RNA Qual (PCR) (Negative) SARS-CoV-2 RNA (RT-PCR) (Negative) 10/14/22 10/14/22 Range/Units 12:22 12:22 WBC (4.8-10.8) X10*3/uL RBC (4.20-5.50) X10*6/uL Hgb (12.0-16.0) g/dl Hct (37.0-47.0) % MCV (80.0-98.0) fL MCH (27.0-33.0) pg MCHC (31.0-35.0) g/dl RDW (11.0-16.0) % Plt Count (160-400) X10*3/uL MPV (9.4-12.3) fL Immature Gran % (Auto) (0.0-0.4) % Neut % (Auto) (45-73) % Lymph % (Auto) (20-40) % [place] % (Auto) (2-11) % Eos % (Auto) (0-4) % Baso % (Auto) (0-2) % Lymph # (Auto) (1.2-4.9) X10*3/uL [place] # (Auto) (0.1-1.2) X10*3/uL Eos # (Auto) (0.0-0.4) X10*3/uL Baso # (Auto) (0.0-0.2) X10*3/uL Abs Immat Gran (auto) (0.00-0.03) X10*3/uL Absolute Neuts (auto) (2.0-8.3) x10*3/uL Absolute Nucleated RBC (0.0-0.012) X10*3/uL Nucleated RBC % (auto) (0.0-0.2) /100WBC Sodium (135-145) mmol/L Potassium (3.3-5.1) mmol/L Chloride (96-108) mmol/L Carbon Dioxide (22-29) mmol/L Anion Gap (12-20) BUN (9-16) mg/dL Creatinine (0.5-1.4) mg/dL Estim Creat Clear Calc Estimated GFR Random Glucose (60-115) mg/dL Calcium (8.4-10.2) mg/dL Total Bilirubin (0.0-1.0) mg/dL Direct Bilirubin (0.0-0.5) mg/dL AST (5-31) U/L ALT (0-31) U/L Alkaline Phosphatase (39-117) U/L Troponin I High Sens (<3.5-17.0) ng/L B-Natriuretic Peptide 27 (<100) pg/mL Total Protein (6.5-8.0) g/dL Albumin (3.5-5.0) g/dL Influenza Type A (PCR) NEGATIVE (Negative) Influenza Type B (PCR) NEGATIVE (Negative) RSV RNA Qual (PCR) NEGATIVE (Negative) SARS-CoV-2 RNA (RT-PCR) NEGATIVE (Negative) Independent Interpretation I performed an independent interpretation of an: Plain X-Ray Interpretation: NO PNEUMONIA Radiology Impression Discussion of test interpretation with radiology: I have reviewed the radiologist's reading. Radiologist Impression: XR CHEST CLINICAL INFORMATION: Chest discomfort with cough. COMPARISON: 04/05/2022 chest radiographs. TECHNIQUE: 2 views of the chest were obtained. FINDINGS: The lungs show mild linear atelectasis/scarring bilaterally with similar appearance. The heart and mediastinal structures are unremarkable. Multilevel healed right rib fractures are noted. A cervical fixation plate is unremarkable. XR/XR chest 2V IMPRESSION: Mild bilateral linear atelectasis/scarring without acute cardiopulmonary process. ? Dictated By: Thiago Moy MD Signed By: <Electronically signed by Thiago Moy MD in [place]> 10/14/22 130 External Record Review External record reviewed: Inpatient record Discharge Plan Discharge Clinical Impression: Bronchitis Patient Disposition: Home, Self-Care Instructions: Acute Bronchitis (ED) Additional Instructions: FOLLOW-UP WITH YOU PRIMARY CARE PHYSICIAN, TAKE ANTIBIOTIC DIRECTED RETURN TO THE EMERGENCY ROOM IF YOU WORSE IF FEVER ,IF SHORT OF BREATH ANY CONCERN Prescriptions: New doxycycline monohydrate [Monodox] 100 mg capsule 100 mg PO BID Qty: 14 0RF prednisone 20 mg tablet 40 mg PO DAILY Qty: 14 0RF No Action citalopram 40 mg tablet 40 mg PO DAILY Qty: 90 3RF cholecalciferol (vitamin D3) 50 mcg (2,000 unit) capsule 50 mcg PO DAILY Qty: 30 5RF atorvastatin 40 mg tablet 40 mg PO BEDTIME 90 Days Qty: 90 1RF diltiazem HCl 240 mg capsule,extended release 24hr 240 mg PO DAILY Qty: 90 0RF pantoprazole 40 mg tablet,delayed release (DR/EC) 40 mg PO BID Qty: 180 0RF (DME) FreeStyle Kelly 2 Sensor Kit See Rx Instructions .ROUTE .MEDSUPPLY Qty: 2 2RF Rx Instructions: As directed every 2 weeks buspirone 5 mg tablet 5 mg PO DAILY Qty: 30 0RF metoprolol tartrate 50 mg tablet 50 mg PO BID (DME) FreeStyle Precision Jamaal Strips Strip See Rx Instructions .ROUTE .MEDSUPPLY Qty: 50 5RF Rx Instructions: once a day for calibration albuterol sulfate 90 mcg/actuation HFA aerosol inhaler 2 puff inhalation Q4H PRN (Reason: for wheezing) Qty: 8.5 0RF budesonide-formoterol [Symbicort] 160-4.5 mcg/actuation HFA aerosol inhaler 2 puff inhalation BID Qty: 10.2 1RF insulin lispro [Humalog KwikPen Insulin] 100 unit/mL insulin pen 24 unit subcut TID Qty: 15 0RF cefuroxime axetil 250 mg tablet 250 mg PO BID 7 Days Qty: 14 0RF prednisone 20 mg tablet 1 tab PO DAILY Jardiance 10 mg tablet 1 tab PO DAILY Lantus Solostar U-100 Insulin 100 unit/mL (3 mL) insulin pen 50 unit subcut DAILY hydralazine 25 mg Tablet 50 mg PO BID Qty: 120 0RF Protocol: Hold for SBP< HOLD for SBP < : 90 spironolactone 25 mg Tablet 25 mg PO DAILY Qty: 30 0RF Protocol: Hold for SBP< HOLD for SBP < : 90 docusate sodium 100 mg Capsule 100 mg PO DAILY PRN (Reason: Constipation) Qty: 30 0RF dicyclomine 10 mg Capsule 10 mg PO QIDACHS PRN (Reason: abdominal pain) Qty: 30 0RF azithromycin 250 mg tablet 250 mg PO DAILY 4 Days Qty: 4 0RF Rx Instructions: start on day 2 of therapy albuterol sulfate 2.5 mg/0.5 mL solution for nebulization 2.5 mg inhalation Q6H PRN (Reason: copd) Qty: 30 0RF guaifenesin 100 mg/5 mL liquid 100 mg PO Q4H PRN (Reason: cough) furosemide 20 mg tablet 20 mg PO DAILY Rx Instructions: pt was on 7 day supply, notes shew has two days left Eliquis 5 mg tablet 5 mg PO BID melatonin 5 mg capsule 5 mg PO BEDTIME PRN (Reason: Sleep)
[2022-10-14 15:47] VITALS: BP 156/54; PULSE 85; RESP 20; TEMP 36.9; O2SAT 97
[2022-10-14] MEDS: predniSONE 20 MG TABLET 60 MG PO (15:49)
[2022-10-14] MEDS: Doxycycline Monohydrate 100 MG CAPSULE PO (15:49)
== END 2022-10-14 16:30 | disposition home or self-care (01) ==
PROVIDERS: Nurse Practitioner Family; Emergency Provider Emergency Medicine
DX: J40 Bronchitis, not specified as acute or chronic (principal); Z20.822 Contact with and (suspected) exposure to COVID-19; Z20.828 Contact with and (suspected) exposure to other viral communicable diseases; J44.9 Chronic obstructive pulmonary disease, unspecified; I10 Essential (primary) hypertension; E11.9 Type 2 diabetes mellitus without complications; E78.5 Hyperlipidemia, unspecified; Z79.01 Long term (current) use of anticoagulants; Z79.4 Long term (current) use of insulin; Z79.899 Other long term (current) drug therapy
CPT/HCPCS: 0241U; 36415; 71046; 80048; 80076; 83880; 84484; 85025; 93005; 99283; 99284

== ENCOUNTER 2022-10-25 18:03 | Emergency (ER) | payer MEDICARE, MEDICAID, SELFPAY ==
--- NOTE | ~2022-10-25 | XR_ITS ---
EXAMINATION: XR CHEST CLINICAL INFORMATION: Chest pain. COMPARISON: Chest radiograph 10/14/2022. TECHNIQUE: Frontal view of the chest was obtained. FINDINGS: Normal appearance of the cardiomediastinal silhouette. Cervical spinal fusion hardware noted. EKG wires overlie the chest. Anastomotic sutures and surgical clips noted in the left upper to mid lung. Chronic widening of the intercostal space in between the right fourth and fifth ribs with similar cortical irregularity of the fourth and fifth ribs. No focal airspace opacity, pleural effusion or pneumothorax. Chronic small platelike opacity along the right minor fissure, likely loculated pleural fluid. No acute osseous abnormalities. XR/XR chest 1V IMPRESSION: No acute cardiopulmonary findings.
--- NOTE | 2022-10-25 18:07 | ECG_ITS ---
Test Reason : chest pain Blood Pressure : / mmHG Vent. Rate : 062 BPM Atrial Rate : 062 BPM P-R Int : 168 ms QRS Dur : 084 ms QT Int : 408 ms P-R-T Axes : 031 051 091 degrees QTc Int : 414 ms Normal sinus rhythm Nonspecific ST and T wave abnormality Abnormal ECG When compared with ECG of 14-OCT-2022 12:10, No significant change was found Referred By: Generic ED Physician Electronically Signed By:SCOTTIE MONROY
[2022-10-25 18:27] VITALS: BP 116/82; PULSE 62; RESP 16; TEMP 37; O2SAT 96; BMI 33.8
[2022-10-25 18:49] LABS: MANUAL DIFF FLAG NO
[2022-10-25 18:53] LABS: Basophils Absolute Auto 0.1 X10*3/uL (0.0-0.2); Basophils Percent Auto 0.4 % (0-2); Eosinophils Absolute Auto 0.3 X10*3/uL (0.0-0.4); Eosinophils Percent Auto 2.2 % (0-4); Hematocrit 40.1 % (37.0-47.0); Imm Gran Abs Auto 0.12 X10*3/uL (0.00-0.03); Imm Gran Pct Auto 0.9 % (0.0-0.4); Lymphocytes Absolute Auto 2.8 X10*3/uL (1.2-4.9); Lymphocytes Percent Auto 20.3 % (20-40); Mean Corpuscular HGB Conc 32.4 g/dl (31.0-35.0); Mean Corpuscular Hemoglobin 26.6 pg (27.0-33.0); Mean Platelet Volume 9.9 fL (9.4-12.3); Monocytes Absolute Auto 1.2 X10*3/uL (0.1-1.2); Monocytes Percent Auto 8.9 % (2-11); Neutrophils Absolute Auto 9.3 x10*3/uL (2.0-8.3); Neutrophils Percent Auto 67.3 % (45-73); Platelet Count 220 X10*3/uL (160-400); Red Blood Count 4.89 X10*6/uL (4.20-5.50); Red Cell Distribution Width 15.5 % (11.0-16.0); White Blood Count 13.8 X10*3/uL (4.8-10.8)
--- NOTE | 2022-10-25 18:59 | ED.CHESTPAIN ---
HPI - Chest Pain General Chief Complaint: Chest Pain Stated Complaint: chest pain Time Seen by Provider: 10/25/22 18:32 Source: patient and EMS Mode of arrival: EMS Limitations: no limitations History of Present Illness HPI narrative: A 71-year-old female presented to the emergency department with a chief complaint of cough with white sputum, right frontal area pressure, chest tightness. Patient was evaluated 11 days ago in the ED for similar symptoms was diagnosed with bronchitis patient was sent home on doxycycline and prednisone, patient stated that she use the medicine with no improvement. Related Data Home Medications Medication Instructions Recorded Confirmed guaifenesin 100 mg/5 mL oral liquid 100 mg PO Q4H PRN cough 12/09/20 10/03/21 metoprolol tartrate 50 mg tablet 50 mg PO BID 12/25/20 10/03/21 apixaban 5 mg tablet (Eliquis) 5 mg PO BID 09/30/21 10/03/21 furosemide 20 mg tablet 20 mg PO DAILY 09/30/21 10/03/21 melatonin 5 mg capsule 5 mg PO BEDTIME PRN Sleep 09/30/21 10/03/21 empagliflozin 10 mg tablet 1 tab PO DAILY 10/03/21 10/03/21 (Jardiance) insulin glargine 100 unit/mL (3 50 unit subcut DAILY 10/03/21 10/03/21 mL) subcutaneous pen (Lantus Solostar U-100 Insulin) prednisone 20 mg tablet 1 tab PO DAILY 10/03/21 10/03/21 Previous Rx's Medication Instructions Recorded citalopram 40 mg tablet 40 mg PO DAILY #90 tabs 06/08/20 cholecalciferol (vitamin D3) 50 50 mcg PO DAILY #30 caps 07/25/20 mcg (2,000 unit) capsule atorvastatin 40 mg tablet 40 mg PO BEDTIME 90 days #90 tabs 08/15/20 diltiazem HCl 240 mg 240 mg PO DAILY #90 caps 09/13/20 capsule,extended release 24 hr pantoprazole 40 mg tablet,delayed 40 mg PO BID #180 tabs 09/13/20 release flash glucose sensor (FreeStyle #2 ea 11/13/20 Kelly 2 Sensor kit) buspirone 5 mg tablet 5 mg PO DAILY #30 tabs 12/16/20 FreeStyle Precision Jamaal Strips #50 ea 01/10/21 (blood sugar diagnostic) albuterol sulfate 90 mcg/actuation 2 puff inhalation Q4H PRN for 02/24/21 aerosol inhaler wheezing #8.5 grams Symbicort 160 mcg-4.5 2 puff inhalation BID #10.2 grams 09/26/21 mcg/actuation HFA aerosol inhaler (budesonide-formoterol) albuterol sulfate 2.5 mg/0.5 mL 2.5 mg (0.5 mL) inhalation Q6H PRN 10/06/21 solution for nebulization copd #30 ea azithromycin 250 mg tablet 250 mg PO DAILY 4 days #4 tabs 10/06/21 dicyclomine 10 mg capsule 10 mg PO QIDACHS PRN abdominal 10/06/21 pain #30 caps docusate sodium 100 mg capsule 100 mg PO DAILY PRN Constipation 10/06/21 #30 caps hydralazine 25 mg tablet 50 mg PO BID #120 tabs 10/06/21 spironolactone 25 mg tablet 25 mg PO DAILY #30 tabs 10/06/21 insulin lispro 100 unit/mL 24 unit (0.24 mL) subcut TID #15 mL 05/05/22 subcutaneous pen (Humalog KwikPen (U-100) Insulin) cefuroxime axetil 250 mg tablet 250 mg PO BID 7 days #14 tabs 07/17/22 doxycycline monohydrate 100 mg 100 mg PO BID #14 caps 10/14/22 capsule (Monodox) prednisone 20 mg tablet 40 mg PO DAILY #14 tabs 10/14/22 amoxicillin 875 mg-potassium 1 tab PO BID #20 tabs 10/25/22 clavulanate 125 mg tablet prednisone 20 mg tablet 20 mg PO BID #8 tabs 10/25/22 Allergies Allergy/AdvReac Type Severity Reaction Status Date / Time Latex, Natural Rubber Allergy Severe blisters Verified 10/14/22 12:00 Sulfa (Sulfonamide Allergy Mild ITCHING, Verified 10/14/22 12:00 Antibiotics) rash [SULFA (SULFONAMIDE ANTIBIOTICS)] nystatin Allergy Unknown rash Verified 10/14/22 12:00 isosorbide [From Imdur] AdvReac Unknown HEADACHES, Verified 10/14/22 12:00 headache tizanidine AdvReac Unknown weakness, Verified 10/14/22 12:00 Hellucination Review of Systems Review of Systems: All other systems are reviewed and are negative Constitutional: Reports as per HPI and Reports no additional constitutional complaints Eyes: Reports as per HPI and Reports no additional eye complaints Reports system reviewed and no additional complaints, except as documented Cardiovascular: Reports as per HPI and Reports no additional cardiovascular complaints Respiratory: Reports as per HPI and Reports no additional respiratory complaints Gastrointestinal: Reports as per HPI and Reports no additional gastrointestinal complaints Genitourinary: Reports no additional female genitourinary complaints Musculoskeletal: Reports no additional musculoskeletal complaints Skin/Breast: Reports system reviewed and no additional complaints, except as docu Psychiatric: Reports no additional psychiatric complaints Endocrine: Reports no additional endocrine complaints Hematologic/Lymphatic: Reports no additional hematologic/lymphatic complaints Allergic/Immunologic: Reports no additional allergic/immunologic complaints Reports system reviewed and no additional complaints, except as documented and Reports Abnormal speech present [facility] Past Medical History Medical History CAD (coronary artery disease) COPD (chronic obstructive pulmonary disease) Diabetes type 2, uncontrolled Dyslipidemia Hypertension Lactic acidosis 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 Father No problems noted. Social History Social History Household Members: Family Housing: House Do you presently have visiting nurse or other home services: Yes Alcohol intake: current Alcohol intake frequency: does not drink Patient Tobacco Use Status: Former Tobacco user Quit Date: 1993 Years Smoked: 10 +/- Advance Directives: No Advance Directives Information Provided: Yes Physical Exam Vital Signs: Vital Signs: Last Vital Signs Temp 98.6 F 10/25/22 18:27 Pulse 64 10/25/22 20:34 Resp 17 10/25/22 20:34 BP 114/39 L 10/25/22 20:34 Pulse Ox 96 10/25/22 20:34 O2 Del Method 10/25/22 20:34 BMI result Body Mass Index 33.8 Vital signs have been reviewed as appeared to be correct. Blood pressure normal. Heart rate normal. Respiration rate normal. Temperature normal. Oxygen saturation normal. Appearance: Alert. Oriented X3. No acute distress. Head: Normal external exam. Normocephalic. Atraumatic. No Krueger signs noted. No raccoon eyes noted Eyes: PERRLA. EOMI. Conjunctiva and sclera normal. Eyelids normal. ENT: TM's Normal. Pharynx normal. Uvula midline. Moist mucous membranes. No trismus noted. No drooling noted. No muffled voice noted. Right frontal sinus tenderness with percussion. Neck: Normal inspection. Neck supple. FROM. No adenopathy. Thyroid Normal. No meningeal signs. No neck mass noted. CVS: Normal heart rate and rhythm. Heart sound normal. No murmurs noted. Pulses normal throughout. Respiratory: No respiratory distress. Painless inspiration. Breath sounds normal. No wheezes/rales/rhonchi noted. Chest nontender. No accessory muscle usage noted or decreased air movement noted. Abdomen: Soft and nontender. Bowel sounds normal in all 4 quadrants. No distention noted. No organomegaly noted. No visible injury noted. Back: No CVA tenderness. Full range of motion noted. Skin: Skin warm and dry. Normal skin color. Normal skin turgor. No rashes/lesions/lacerations noted. Extremities: No lower extremity edema. Extremities exhibit normal range of motion. Extremities nontender. Neuro: Oriented X 3. Cranial nerve exam: II-XII are grossly intact No motor deficit. No sensory deficit. Reflexes normal. Course Course Course Narrative: 71-year-old female came in for evaluation or coughing frontal sinus tenderness and pressure and chest tightness and pain due to coughing. Patient was diagnosed with bronchitis treated with doxycycline on 5 days of prednisone, today's exam is consistent with right frontal sinusitis will start the patient on Augmentin and prednisone with PCP follow-up. Medications Administered Discontinued Medications Generic Name Dose Route Start Last Admin Trade Name Freq PRN Reason Stop Dose Admin Amoxicillin/Clavulanate Potassium 875 mg 10/25/22 19:06 10/25/22 20:33 Amoxicillin/Potassium Clav 875 Mg Tablet PO 10/25/22 19:07 875 mg ONCE ONE Administration Prednisone 60 mg 10/25/22 19:06 10/25/22 20:33 Prednisone 20 Mg Tablet PO 10/25/22 19:07 60 mg ONCE ONE Administration Medical Decision Making Differential Diagnosis Differential Diagnoses: The differential diagnosis associated with the presentation includes (Sinusitis, viral bronchitis, pneumonia, ACS, pneumothorax, pleural effusion.) Lab Data MDM Lab Attestation statement: I reviewed the patient's lab results. 10/25/22 18:45 10/25/22 18:45 Labs: Lab Results 10/25/22 10/25/22 10/25/22 Range/Units 18:45 18:45 18:45 WBC 13.8 H (4.8-10.8) X10*3/uL RBC 4.89 (4.20-5.50) X10*6/uL Hgb 13.0 (12.0-16.0) g/dl Hct 40.1 (37.0-47.0) % MCV 82.0 (80.0-98.0) fL MCH 26.6 L (27.0-33.0) pg MCHC 32.4 (31.0-35.0) g/dl RDW 15.5 (11.0-16.0) % Plt Count 220 (160-400) X10*3/uL MPV 9.9 (9.4-12.3) fL Immature Gran % (Auto) 0.9 H (0.0-0.4) % Neut % (Auto) 67.3 (45-73) % Lymph % (Auto) 20.3 (20-40) % [place] % (Auto) 8.9 (2-11) % Eos % (Auto) 2.2 (0-4) % Baso % (Auto) 0.4 (0-2) % Lymph # (Auto) 2.8 (1.2-4.9) X10*3/uL [place] # (Auto) 1.2 (0.1-1.2) X10*3/uL Eos # (Auto) 0.3 (0.0-0.4) X10*3/uL Baso # (Auto) 0.1 (0.0-0.2) X10*3/uL Abs Immat Gran (auto) 0.12 H (0.00-0.03) X10*3/uL Absolute Neuts (auto) 9.3 H (2.0-8.3) x10*3/uL Absolute Nucleated RBC 0.000 (0.0-0.012) X10*3/uL Nucleated RBC % (auto) 0.0 (0.0-0.2) /100WBC Sodium 138 (135-145) mmol/L Potassium 4.3 (3.3-5.1) mmol/L Chloride 102 (96-108) mmol/L Carbon Dioxide 25 (22-29) mmol/L Anion Gap 15 (12-20) BUN 32 H (9-16) mg/dL Creatinine 1.36 (0.5-1.4) mg/dL Estim Creat Clear Calc 39.9 Estimated GFR 38 Random Glucose 236 H (60-115) mg/dL Calcium 8.2 L D (8.4-10.2) mg/dL Total Bilirubin 0.6 (0.0-1.0) mg/dL Direct Bilirubin < 0.2 (0.0-0.5) mg/dL AST 11 (5-31) U/L ALT 15 (0-31) U/L Alkaline Phosphatase 97 (39-117) U/L Troponin I High Sens 7.3 (<3.5-17.0) ng/L B-Natriuretic Peptide (<100) pg/mL Total Protein 5.6 L (6.5-8.0) g/dL Albumin 3.3 L (3.5-5.0) g/dL Lipase 24 (8-78) U/L 10/25/22 Range/Units 18:45 WBC (4.8-10.8) X10*3/uL RBC (4.20-5.50) X10*6/uL Hgb (12.0-16.0) g/dl Hct (37.0-47.0) % MCV (80.0-98.0) fL MCH (27.0-33.0) pg MCHC (31.0-35.0) g/dl RDW (11.0-16.0) % Plt Count (160-400) X10*3/uL MPV (9.4-12.3) fL Immature Gran % (Auto) (0.0-0.4) % Neut % (Auto) (45-73) % Lymph % (Auto) (20-40) % [place] % (Auto) (2-11) % Eos % (Auto) (0-4) % Baso % (Auto) (0-2) % Lymph # (Auto) (1.2-4.9) X10*3/uL [place] # (Auto) (0.1-1.2) X10*3/uL Eos # (Auto) (0.0-0.4) X10*3/uL Baso # (Auto) (0.0-0.2) X10*3/uL Abs Immat Gran (auto) (0.00-0.03) X10*3/uL Absolute Neuts (auto) (2.0-8.3) x10*3/uL Absolute Nucleated RBC (0.0-0.012) X10*3/uL Nucleated RBC % (auto) (0.0-0.2) /100WBC Sodium (135-145) mmol/L Potassium (3.3-5.1) mmol/L Chloride (96-108) mmol/L Carbon Dioxide (22-29) mmol/L Anion Gap (12-20) BUN (9-16) mg/dL Creatinine (0.5-1.4) mg/dL Estim Creat Clear Calc Estimated GFR Random Glucose (60-115) mg/dL Calcium (8.4-10.2) mg/dL Total Bilirubin (0.0-1.0) mg/dL Direct Bilirubin (0.0-0.5) mg/dL AST (5-31) U/L ALT (0-31) U/L Alkaline Phosphatase (39-117) U/L Troponin I High Sens (<3.5-17.0) ng/L B-Natriuretic Peptide 56 (<100) pg/mL Total Protein (6.5-8.0) g/dL Albumin (3.5-5.0) g/dL Lipase (8-78) U/L Independent Interpretation I performed an independent interpretation of an: EKG (Normal sinus rhythm at 62 beats per minutes, normal axis deviation, normal intervals, no ST-T changes.) and Plain X-Ray (Chest: No acute cardiopulmonary findings) Radiology Impression Discussion of test interpretation with radiology: I have reviewed the radiologist's reading. Discharge Plan Discharge Clinical Impression: Atypical chest pain, Sinusitis, acute frontal Patient Disposition: Home, Self-Care Instructions: Sinusitis (ED) Prescriptions: New amoxicillin-pot clavulanate 875-125 mg tablet 1 tab PO BID Qty: 20 0RF prednisone 20 mg tablet 20 mg PO BID Qty: 8 0RF No Action citalopram 40 mg tablet 40 mg PO DAILY Qty: 90 3RF cholecalciferol (vitamin D3) 50 mcg (2,000 unit) capsule 50 mcg PO DAILY Qty: 30 5RF atorvastatin 40 mg tablet 40 mg PO BEDTIME 90 Days Qty: 90 1RF diltiazem HCl 240 mg capsule,extended release 24hr 240 mg PO DAILY Qty: 90 0RF pantoprazole 40 mg tablet,delayed release (DR/EC) 40 mg PO BID Qty: 180 0RF (DME) FreeStyle Kelly 2 Sensor Kit See Rx Instructions .ROUTE .MEDSUPPLY Qty: 2 2RF Rx Instructions: As directed every 2 weeks buspirone 5 mg tablet 5 mg PO DAILY Qty: 30 0RF metoprolol tartrate 50 mg tablet 50 mg PO BID (DME) FreeStyle Precision Jamaal Strips Strip See Rx Instructions .ROUTE .MEDSUPPLY Qty: 50 5RF Rx Instructions: once a day for calibration albuterol sulfate 90 mcg/actuation HFA aerosol inhaler 2 puff inhalation Q4H PRN (Reason: for wheezing) Qty: 8.5 0RF budesonide-formoterol [Symbicort] 160-4.5 mcg/actuation HFA aerosol inhaler 2 puff inhalation BID Qty: 10.2 1RF insulin lispro [Humalog KwikPen Insulin] 100 unit/mL insulin pen 24 unit subcut TID Qty: 15 0RF cefuroxime axetil 250 mg tablet 250 mg PO BID 7 Days Qty: 14 0RF doxycycline monohydrate [Monodox] 100 mg capsule 100 mg PO BID Qty: 14 0RF prednisone 20 mg tablet 40 mg PO DAILY Qty: 14 0RF prednisone 20 mg tablet 1 tab PO DAILY Jardiance 10 mg tablet 1 tab PO DAILY Lantus Solostar U-100 Insulin 100 unit/mL (3 mL) insulin pen 50 unit subcut DAILY hydralazine 25 mg Tablet 50 mg PO BID Qty: 120 0RF Protocol: Hold for SBP< HOLD for SBP < : 90 spironolactone 25 mg Tablet 25 mg PO DAILY Qty: 30 0RF Protocol: Hold for SBP< HOLD for SBP < : 90 docusate sodium 100 mg Capsule 100 mg PO DAILY PRN (Reason: Constipation) Qty: 30 0RF dicyclomine 10 mg Capsule 10 mg PO QIDACHS PRN (Reason: abdominal pain) Qty: 30 0RF azithromycin 250 mg tablet 250 mg PO DAILY 4 Days Qty: 4 0RF Rx Instructions: start on day 2 of therapy albuterol sulfate 2.5 mg/0.5 mL solution for nebulization 2.5 mg inhalation Q6H PRN (Reason: copd) Qty: 30 0RF guaifenesin 100 mg/5 mL liquid 100 mg PO Q4H PRN (Reason: cough) furosemide 20 mg tablet 20 mg PO DAILY Rx Instructions: pt was on 7 day supply, notes shew has two days left Eliquis 5 mg tablet 5 mg PO BID melatonin 5 mg capsule 5 mg PO BEDTIME PRN (Reason: Sleep)
[2022-10-25 19:22] LABS: Alanine Aminotransferase 15 U/L (0-31); Albumin Level 3.3 g/dL (3.5-5.0); Alkaline Phosphatase 97 U/L (39-117); Anion Gap 15 (12-20); Aspartate Amino Transferase 11 U/L (5-31); Bilirubin Direct < 0.2 mg/dL (0.0-0.5); Bilirubin Total 0.6 mg/dL (0.0-1.0); Blood Urea Nitrogen 32 mg/dL (9-16); Calcium 8.2 mg/dL (8.4-10.2); Carbon Dioxide 25 mmol/L (22-29); Chloride 102 mmol/L (96-108); Creatinine Clr Calc Pharmacy 39.9; Estimated Glomerular Filt Rate 38; Glucose Random 236 mg/dL (60-115); Lipase 24 U/L (8-78); Potassium 4.3 mmol/L (3.3-5.1); Sodium 138 mmol/L (135-145); Total Protein 5.6 g/dL (6.5-8.0)
[2022-10-25 19:25] LABS: B Type Natriuretic Peptide 56 pg/mL (<100)
[2022-10-25 19:29] LABS: Troponin-I High Sensitivity 7.3 ng/L (<3.5-17.0)
[2022-10-25] MEDS: Amoxicillin/Potassium Clav 875 MG TABLET PO (20:33)
[2022-10-25] MEDS: predniSONE 20 MG TABLET 60 MG PO (20:33)
[2022-10-25 20:34] VITALS: BP 114/39; PULSE 64; RESP 17; O2SAT 96
--- NOTE | 2022-10-25 21:01 | PC.NURSE ---
spoke with provider and pt. pt states no ivf or zofran and comfirmed with provider not to give. plan is for discharge. pt alert oriented no s/s of distress.
[2022-10-25 21:38] LABS: Appearance Urine Clear; Color Urine Yellow; Glucose Urine UA >=1000 mg/dL (Negative); Leukocyte Esterase Urine Negative (Negative); Nitrite Urine Negative (Negative); PH 5.5 (5.0-9.0); Specific Gravity - Urine >= 1.030 (1.005-1.025); UMIC TRIGGER UACC YES; Urine Blood Negative (Negative); Urine Ketones Negative (Negative); Urine Protein 30 (1+) mg/dL (Neg-Trace)
[2022-10-25 23:11] LABS: Bacteria Urine None Seen (None Seen); Hyaline Casts Urine 0-2 /LPF (0-2); RBC Urine 0-2 /HPF (0-2); UACC Culture Trigger YES
== END 2022-10-25 22:16 | disposition home or self-care (01) ==
PROVIDERS: Emergency Provider Emergency Medicine
DX: R07.89 Other chest pain (principal); J01.10 Acute frontal sinusitis, unspecified; R06.02 Shortness of breath; Z79.899 Other long term (current) drug therapy
CPT/HCPCS: 36415; 71045; 80048; 80076; 81001; 81003; 83690; 83880; 84484; 85025; 87086; 87088; 87186; 93005; 99284

== ENCOUNTER 2022-12-31 16:09 | Emergency (ER) | payer MEDICARE, MEDICAID, SELFPAY ==
--- NOTE | ~2022-12-31 | XR_ITS ---
EXAMINATION: XR CHEST CLINICAL INFORMATION: Chest pain COMPARISON: 10/25/2022 TECHNIQUE: Frontal view of the chest was obtained. FINDINGS: The lungs are well expanded. Suture/staple line of left upper lung. A few linear opacities of scarring are noted in each lung. No acute findings. No airspace disease, pleural effusion or pneumothorax. Cardiac silhouette is normal in size. Pulmonary vascular pattern is normal. There is chronic widening of the interspace between right fourth and fifth ribs and heterotopic ossification bridging between right lateral sixth and seventh ribs. Findings are likely secondary to remote thoracic surgery. Multilevel osteophyte formation of the suboptimally visualized spine. Anterior fusion hardware at C5-C7. XR/XR chest 1V IMPRESSION: No acute pulmonary disease compared to 10/25/2022.
--- NOTE | ~2022-12-31 | CT_ITS ---
EXAMINATION: CT HEAD WITHOUT CONTRAST CLINICAL INFORMATION: Severe headache. COMPARISON: CT head from 07/13/2022. TECHNIQUE: Contiguous axial imaging was performed from the skull base to vertex without intravenous administration of contrast. This CT examination was performed using dose optimization techniques as appropriate, variously including the following: *Automated exposure control. *Adjustment of mA and/or kV according to patient size (this includes techniques or standardized protocols for targeted exams where dose is matched to indication/reason for exam; i.e. extremities or head). *Use of iterative reconstruction technique. DLP: 642 mGy-cm FINDINGS: There is no evidence of acute intracranial hemorrhage or edematous territorial infarction. Blanchard-white matter differentiation is preserved. Confluent hypoattenuation in the periventricular and deep white matter. Proportional prominence of the ventricles and sulcal spaces without evidence of obstructive hydrocephalus. No abnormal mass effect or midline shift. No extra-axial fluid collections. Calcific atherosclerotic disease of the intracranial internal carotid and vertebral arteries. No hyperdense vessel sign. No acute soft tissue or osseous abnormalities. Mild mucosal thickening of the paranasal sinuses. The mastoid air cells and middle ear cavities are clear. CT/CT head/brain wo IV con IMPRESSION: 1. No evidence of acute intracranial hemorrhage or edematous territorial infarction. 2. Extensive underlying microangiopathy and generalized cerebral volume loss.
--- NOTE | 2022-12-31 17:49 | ECG_ITS ---
Test Reason : cp Blood Pressure : / mmHG Vent. Rate : 081 BPM Atrial Rate : 081 BPM P-R Int : 194 ms QRS Dur : 080 ms QT Int : 378 ms P-R-T Axes : 062 042 091 degrees QTc Int : 439 ms Normal sinus rhythm Normal ECG When compared with ECG of 25-OCT-2022 18:16, No significant change was found Referred By: Donnell Goel Electronically Signed By:Brad French
[2022-12-31 17:50] VITALS: BP 237/98; PULSE 89; RESP 24; TEMP 36.6; O2SAT 95; BMI 34.3
--- NOTE | 2022-12-31 17:50 | ED.GENADULT ---
HPI - General Adult General Chief complaint: General Medical <DEV Glover Last Filed: 12/31/22 17:55> Stated complaint: High Blood Pressure <DEV Glover - Last Filed: 12/31/22 17:55> Time Seen by Provider: 12/31/22 20:25 <DEV Glover - Last Filed: 12/31/22 17:55> Source: patient and family <DO Stephan Brooke Last Filed: 12/31/22 22:24> Mode of arrival: ambulatory <DO Stephan Brooke Last Filed: 12/31/22 22:24> Limitations: no limitations <DO Stephan Brooke Last Filed: 12/31/22 22:24> History of Present Illness HPI narrative: 72-year-old female presents to the emergency department after noticing that her blood pressure was elevated at home. She woke up not feeling like herself as she states she did have any chest pain shortness breath cough or fever she did take her blood pressure was elevated that she continue to check it every 15 minutes the blood pressure continued to go. She does take metoprolol which she has been taking regularly she has not taken her dose tonight. <Diogo Capps DO - Last Filed: 12/31/22 22:24> Onset (ago): hour(s) <Diogo Capps DO - Last Filed: 12/31/22 22:24> Related Data Home medications: Home Medications Medication Instructions Recorded Confirmed guaifenesin 100 mg/5 mL oral liquid 100 mg PO Q4H PRN cough 12/09/20 10/03/21 metoprolol tartrate 50 mg tablet 50 mg PO BID 12/25/20 10/03/21 apixaban 5 mg tablet (Eliquis) 5 mg PO BID 09/30/21 10/03/21 furosemide 20 mg tablet 20 mg PO DAILY 09/30/21 10/03/21 melatonin 5 mg capsule 5 mg PO BEDTIME PRN Sleep 09/30/21 10/03/21 empagliflozin 10 mg tablet 1 tab PO DAILY 10/03/21 10/03/21 (Jardiance) insulin glargine 100 unit/mL (3 50 unit subcut DAILY 01/28/22 01/28/22 mL) subcutaneous pen (Lantus Solostar U-100 Insulin) prednisone 20 mg tablet 1 tab PO DAILY 10/03/21 10/03/21 Previous Rx's Medication Instructions Recorded citalopram 40 mg tablet 40 mg PO DAILY #90 tabs 06/08/20 cholecalciferol (vitamin D3) 50 50 mcg PO DAILY #30 caps 07/25/20 mcg (2,000 unit) capsule atorvastatin 40 mg tablet 40 mg PO BEDTIME 90 days #90 tabs 08/15/20 diltiazem HCl 240 mg 240 mg PO DAILY #90 caps 09/13/20 capsule,extended release 24 hr pantoprazole 40 mg tablet,delayed 40 mg PO BID #180 tabs 09/13/20 release flash glucose sensor (FreeStyle #2 ea 11/13/20 Kelly 2 Sensor kit) buspirone 5 mg tablet 5 mg PO DAILY #30 tabs 12/16/20 FreeStyle Precision Jamaal Strips #50 ea 01/10/21 (blood sugar diagnostic) albuterol sulfate 90 mcg/actuation 2 puff inhalation Q4H PRN for 02/24/21 aerosol inhaler wheezing #8.5 grams Symbicort 160 mcg-4.5 2 puff inhalation BID #10.2 grams 09/26/21 mcg/actuation HFA aerosol inhaler (budesonide-formoterol) albuterol sulfate 2.5 mg/0.5 mL 2.5 mg (0.5 mL) inhalation Q6H PRN 10/06/21 solution for nebulization copd #30 ea azithromycin 250 mg tablet 250 mg PO DAILY 4 days #4 tabs 10/06/21 dicyclomine 10 mg capsule 10 mg PO QIDACHS PRN abdominal 10/06/21 pain #30 caps docusate sodium 100 mg capsule 100 mg PO DAILY PRN Constipation 10/06/21 #30 caps hydralazine 25 mg tablet 50 mg PO BID #120 tabs 10/06/21 spironolactone 25 mg tablet 25 mg PO DAILY #30 tabs 10/06/21 insulin lispro 100 unit/mL 24 unit (0.24 mL) subcut TID #15 mL 05/05/22 subcutaneous pen (Humalog KwikPen (U-100) Insulin) cefuroxime axetil 250 mg tablet 250 mg PO BID 7 days #14 tabs 07/17/22 doxycycline monohydrate 100 mg 100 mg PO BID #14 caps 10/14/22 capsule (Monodox) prednisone 20 mg tablet 40 mg PO DAILY #14 tabs 10/14/22 amoxicillin 875 mg-potassium 1 tab PO BID #20 tabs 10/25/22 clavulanate 125 mg tablet prednisone 20 mg tablet 20 mg PO BID #8 tabs 10/25/22 <DEV Glover Last Filed: 12/31/22 17:55> Allergies/adverse reactions: Allergies Allergy/AdvReac Type Severity Reaction Status Date / Time Latex, Natural Rubber Allergy Severe blisters Verified 12/31/22 17:56 Sulfa (Sulfonamide Allergy Mild ITCHING, Verified 12/31/22 17:56 Antibiotics) rash [SULFA (SULFONAMIDE ANTIBIOTICS)] nystatin Allergy Unknown rash Verified 12/31/22 17:56 isosorbide [From Imdur] AdvReac Unknown HEADACHES, Verified 12/31/22 17:56 headache tizanidine AdvReac Unknown weakness, Verified 12/31/22 17:56 Hellucination <DEV Glover Last Filed: 12/31/22 17:55> Review of Systems Review of Systems: Review of systems: General: Patient denies any fever chills recent illness or falls Musculoskeletal: Denies back pain or body aches or other injuries HEENT: denies headache, runny nose, ear pain Respiratory: denies shortness of breath, cough Cardiovascular: chest pain no palpitations : denies dysuria, frequency Abdomen: no nausea vomiting denies abdominal pain Extremities: no swelling, no pain Skin: no diaphoresis <DO Stephan Brooke Last Filed: 12/31/22 22:24> Yes all other systems are reviewed and are negative <DO Stephan Brooke Last Filed: 12/31/22 22:24> PMFSH Past Medical History Medical History: Medical History CAD (coronary artery disease) COPD (chronic obstructive pulmonary disease) Diabetes type 2, uncontrolled Dyslipidemia Hypertension Lactic acidosis 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 Father No problems noted. <DEV Glover - Last Filed: 12/31/22 17:55> Social History Social History: Social History Household Members: Family Housing: House Do you presently have visiting nurse or other home services: Yes Alcohol intake: never Patient Tobacco Use Status: Former Tobacco user Quit Date: 1993 Smoked: 10 +/- Smoked in Last 30 Days: No Use of substances other than those prescribed or required for medical reasons: No Advance Directives: No Advance Directives Information Provided: No <DEV Glover - Last Filed: 12/31/22 17:55> Physical Exam ED Vital Signs: Vital Signs - 24 hr 12/31/22 17:50 12/31/22 19:47 12/31/22 20:55 Temperature 97.9 F 98.2 F 97.5 F Pulse Rate 89 78 80 Respiratory Rate 24 H 17 13 Blood Pressure 237/98 H 188/75 H 174/69 H Pulse Oximetry 95 97 96 Oxygen Delivery Method Room Air Room Air Room Air BMI result Body Mass Index 34.3 <DEV Glover - Last Filed: 12/31/22 17:55> Vital Signs - 24 hr 12/31/22 17:50 12/31/22 19:47 12/31/22 20:55 Temperature 97.9 F 98.2 F 97.5 F Pulse Rate 89 78 80 Respiratory Rate 24 H 17 13 Blood Pressure 237/98 H 188/75 H 174/69 H Pulse Oximetry 95 97 96 Oxygen Delivery Method Room Air Room Air Room Air BMI result Body Mass Index 34.3 <Diogo Capps DO - Last Filed: 12/31/22 22:24> Neurological exam: CN II- XII tested. Patient is alert and oriented to person place and time. Patient has no dysphagia or dysarthia, denies good vision in all four vision cespedes no nystagmus on exam, good strength to upper and lower extremities with normal reflexes to brachioradialis, wrist, patella and achilles. Negative romberg, good finger to nose and heel to stephens. General: Well-appearing well-nourished in no signs of distress HEENT: Normocephalic atraumatic Neck: No signs of JVD, no masses no tenderness or lymphadenopathy Cardiovascular: Regular rate and rhythm Respiratory: Clear to auscultation bilaterally Abdomen: Soft nontender no masses Extremities: Normal pedal pulses no signs of edema Skin: Dry warm no rashes Back: No tenderness full ROM <Diogo Capps DO - Last Filed: 12/31/22 22:24> Course Course Course Narrative: This is an RME: Additional HPI, ROS, PE not included below will be deferred to primary provider. 72-year-old female history of tracheomalacia, DVT and PE on Eliquis, diabetes, coronary artery disease, dyslipidemia, obesity, hypertension presenting with substernal chest pain that started while in the waiting room, headache, and high blood pressures at home for the past 2 days. Physical exam benign. Patient is however noted to be significantly hypertensive. Concerns for hypertensive urgency. Plan labs, EKG, troponin. <DEV Glover - Last Filed: 12/31/22 17:55> Medications Administered Discontinued Medications Generic Name Dose Route Start Last Admin Trade Name Freq PRN Reason Stop Dose Admin Sodium Chloride 1,000 mls @ 999 mls/hr 12/31/22 20:45 12/31/22 21:31 Ns IV 12/31/22 21:45 999 mls/hr .Q1H1M LOU Administration Labetalol HCl 20 mg 12/31/22 20:32 12/31/22 21:05 Labetalol Hcl 100 Mg/20 Ml Vial IVPUSH 12/31/22 20:33 20 mg ONCE ONE Administration Metoprolol Tartrate 50 mg 12/31/22 20:32 12/31/22 21:05 Metoprolol Tartrate 50 Mg Tablet PO 12/31/22 20:33 50 mg ONCE ONE Administration Protocol <DEV Glover Last Filed: 12/31/22 17:55> Medications Administered Discontinued Medications Generic Name Dose Route Start Last Admin Trade Name Ariana PRN Reason Stop Dose Admin Sodium Chloride 1,000 mls @ 999 mls/hr 12/31/22 20:45 12/31/22 21:31 Ns IV 12/31/22 21:45 999 mls/hr .Q1H1M LOU Administration Labetalol HCl 20 mg 12/31/22 20:32 12/31/22 21:05 Labetalol Hcl 100 Mg/20 Ml Vial IVPUSH 12/31/22 20:33 20 mg ONCE ONE Administration Metoprolol Tartrate 50 mg 12/31/22 20:32 12/31/22 21:05 Metoprolol Tartrate 50 Mg Tablet PO 12/31/22 20:33 50 mg ONCE ONE Administration Protocol <Diogo Capps DO - Last Filed: 12/31/22 22:24> Medical Decision Making Medical Decision Making MDM Narrative: Fortunately patient was seen in triage and have labs including CT scan x-ray and labs show no signs of end-organ dysfunction with a blood pressure elevation. I will repeat a troponin patient has been here for approximately 4 hours I will give patient some more labetalol on her nighttime dose of metoprolol and reassess. BP improved Xr and repeat Troponin is negative I will send home with PCP follow up <Diogo Capps DO - Last Filed: 12/31/22 22:24> Differential Diagnosis Differential Diagnoses: The differential diagnosis associated with the presentation includes <Diogo Capps DO - Last Filed: 12/31/22 22:24> Concern for hypertensive urgency ACS or anxiety. <Diogo Capps DO - Last Filed: 12/31/22 22:24> Lab Data Result Diagrams: 12/31/22 18:09 12/31/22 18:09 <DEV Glover - Last Filed: 12/31/22 17:55> Labs: Lab Results 12/31/22 12/31/22 12/31/22 Range/Units 18:09 18:09 18:09 WBC 9.6 (4.8-10.8) X10*3/uL RBC 5.46 (4.20-5.50) X10*6/uL Hgb 15.0 (12.0-16.0) g/dl Hct 45.7 (37.0-47.0) % MCV 83.7 (80.0-98.0) fL MCH 27.5 (27.0-33.0) pg MCHC 32.8 (31.0-35.0) g/dl RDW 14.2 (11.0-16.0) % Plt Count 256 (160-400) X10*3/uL MPV 10.0 (9.4-12.3) fL Immature Gran % (Auto) 0.5 H (0.0-0.4) % Neut % (Auto) 59.3 (45-73) % Lymph % (Auto) 27.3 (20-40) % Elk % (Auto) 7.3 (2-11) % Eos % (Auto) 4.6 H (0-4) % Baso % (Auto) 1.0 (0-2) % Lymph # (Auto) 2.6 (1.2-4.9) X10*3/uL Elk # (Auto) 0.7 (0.1-1.2) X10*3/uL Eos # (Auto) 0.4 (0.0-0.4) X10*3/uL Baso # (Auto) 0.1 (0.0-0.2) X10*3/uL Abs Immat Gran (auto) 0.05 H (0.00-0.03) X10*3/uL Absolute Neuts (auto) 5.7 (2.0-8.3) x10*3/uL Absolute Nucleated RBC 0.000 (0.0-0.012) X10*3/uL Nucleated RBC % (auto) 0.0 (0.0-0.2) /100WBC Sodium 141 (135-145) mmol/L Potassium 4.1 (3.3-5.1) mmol/L Chloride 103 (96-108) mmol/L Carbon Dioxide 26 (22-29) mmol/L Anion Gap 16 (12-20) BUN 28 H (9-16) mg/dL Creatinine 1.09 (0.5-1.4) mg/dL Estim Creat Clear Calc 49.4 Estimated GFR 49 Random Glucose 216 H (60-115) mg/dL Calcium 9.3 D (8.4-10.2) mg/dL Magnesium 2.0 (1.6-2.6) mg/dL Total Bilirubin 0.4 (0.0-1.0) mg/dL AST 16 (5-31) U/L ALT 19 (0-31) U/L Alkaline Phosphatase 124 H (39-117) U/L Troponin I High Sens 6.8 (<3.5-17.0) ng/L B-Natriuretic Peptide (<100) pg/mL Total Protein 6.9 (6.5-8.0) g/dL Albumin 4.3 (3.5-5.0) g/dL COVID-19 (CHEAM) (Negative) COVID-19 Clin Com 12/31/22 12/31/22 12/31/22 Range/Units 18:09 18:09 21:00 WBC (4.8-10.8) X10*3/uL RBC (4.20-5.50) X10*6/uL Hgb (12.0-16.0) g/dl Hct (37.0-47.0) % MCV (80.0-98.0) fL MCH (27.0-33.0) pg MCHC (31.0-35.0) g/dl RDW (11.0-16.0) % Plt Count (160-400) X10*3/uL MPV (9.4-12.3) fL Immature Gran % (Auto) (0.0-0.4) % Neut % (Auto) (45-73) % Lymph % (Auto) (20-40) % Elk % (Auto) (2-11) % Eos % (Auto) (0-4) % Baso % (Auto) (0-2) % Lymph # (Auto) (1.2-4.9) X10*3/uL Elk # (Auto) (0.1-1.2) X10*3/uL Eos # (Auto) (0.0-0.4) X10*3/uL Baso # (Auto) (0.0-0.2) X10*3/uL Abs Immat Gran (auto) (0.00-0.03) X10*3/uL Absolute Neuts (auto) (2.0-8.3) x10*3/uL Absolute Nucleated RBC (0.0-0.012) X10*3/uL Nucleated RBC % (auto) (0.0-0.2) /100WBC Sodium (135-145) mmol/L Potassium (3.3-5.1) mmol/L Chloride (96-108) mmol/L Carbon Dioxide (22-29) mmol/L Anion Gap (12-20) BUN (9-16) mg/dL Creatinine (0.5-1.4) mg/dL Estim Creat Clear Calc Estimated GFR Random Glucose (60-115) mg/dL Calcium (8.4-10.2) mg/dL Magnesium (1.6-2.6) mg/dL Total Bilirubin (0.0-1.0) mg/dL AST (5-31) U/L ALT (0-31) U/L Alkaline Phosphatase (39-117) U/L Troponin I High Sens 7.5 (<3.5-17.0) ng/L B-Natriuretic Peptide 73 (<100) pg/mL Total Protein (6.5-8.0) g/dL Albumin (3.5-5.0) g/dL COVID-19 (CHEMA) Negative (Negative) COVID-19 Clin Com See Note <DEV Glover - Last Filed: 12/31/22 17:55> Lab Results 12/31/22 12/31/22 12/31/22 Range/Units 18:09 18:09 18:09 WBC 9.6 (4.8-10.8) X10*3/uL RBC 5.46 (4.20-5.50) X10*6/uL Hgb 15.0 (12.0-16.0) g/dl Hct 45.7 (37.0-47.0) % MCV 83.7 (80.0-98.0) fL MCH 27.5 (27.0-33.0) pg MCHC 32.8 (31.0-35.0) g/dl RDW 14.2 (11.0-16.0) % Plt Count 256 (160-400) X10*3/uL MPV 10.0 (9.4-12.3) fL Immature Gran % (Auto) 0.5 H (0.0-0.4) % Neut % (Auto) 59.3 (45-73) % Lymph % (Auto) 27.3 (20-40) % Elk % (Auto) 7.3 (2-11) % Eos % (Auto) 4.6 H (0-4) % Baso % (Auto) 1.0 (0-2) % Lymph # (Auto) 2.6 (1.2-4.9) X10*3/uL Elk # (Auto) 0.7 (0.1-1.2) X10*3/uL Eos # (Auto) 0.4 (0.0-0.4) X10*3/uL Baso # (Auto) 0.1 (0.0-0.2) X10*3/uL Abs Immat Gran (auto) 0.05 H (0.00-0.03) X10*3/uL Absolute Neuts (auto) 5.7 (2.0-8.3) x10*3/uL Absolute Nucleated RBC 0.000 (0.0-0.012) X10*3/uL Nucleated RBC % (auto) 0.0 (0.0-0.2) /100WBC Sodium 141 (135-145) mmol/L Potassium 4.1 (3.3-5.1) mmol/L Chloride 103 (96-108) mmol/L Carbon Dioxide 26 (22-29) mmol/L Anion Gap 16 (12-20) BUN 28 H (9-16) mg/dL Creatinine 1.09 (0.5-1.4) mg/dL Estim Creat Clear Calc 49.4 Estimated GFR 49 Random Glucose 216 H (60-115) mg/dL Calcium 9.3 D (8.4-10.2) mg/dL Magnesium 2.0 (1.6-2.6) mg/dL Total Bilirubin 0.4 (0.0-1.0) mg/dL AST 16 (5-31) U/L ALT 19 (0-31) U/L Alkaline Phosphatase 124 H (39-117) U/L Troponin I High Sens 6.8 (<3.5-17.0) ng/L B-Natriuretic Peptide (<100) pg/mL Total Protein 6.9 (6.5-8.0) g/dL Albumin 4.3 (3.5-5.0) g/dL COVID-19 (CHEMA) (Negative) COVID-19 Clin Com 12/31/22 12/31/22 12/31/22 Range/Units 18:09 18:09 21:00 WBC (4.8-10.8) X10*3/uL RBC (4.20-5.50) X10*6/uL Hgb (12.0-16.0) g/dl Hct (37.0-47.0) % MCV (80.0-98.0) fL MCH (27.0-33.0) pg MCHC (31.0-35.0) g/dl RDW (11.0-16.0) % Plt Count (160-400) X10*3/uL MPV (9.4-12.3) fL Immature Gran % (Auto) (0.0-0.4) % Neut % (Auto) (45-73) % Lymph % (Auto) (20-40) % Elk % (Auto) (2-11) % Eos % (Auto) (0-4) % Baso % (Auto) (0-2) % Lymph # (Auto) (1.2-4.9) X10*3/uL Elk # (Auto) (0.1-1.2) X10*3/uL Eos # (Auto) (0.0-0.4) X10*3/uL Baso # (Auto) (0.0-0.2) X10*3/uL Abs Immat Gran (auto) (0.00-0.03) X10*3/uL Absolute Neuts (auto) (2.0-8.3) x10*3/uL Absolute Nucleated RBC (0.0-0.012) X10*3/uL Nucleated RBC % (auto) (0.0-0.2) /100WBC Sodium (135-145) mmol/L Potassium (3.3-5.1) mmol/L Chloride (96-108) mmol/L Carbon Dioxide (22-29) mmol/L Anion Gap (12-20) BUN (9-16) mg/dL Creatinine (0.5-1.4) mg/dL Estim Creat Clear Calc Estimated GFR Random Glucose (60-115) mg/dL Calcium (8.4-10.2) mg/dL Magnesium (1.6-2.6) mg/dL Total Bilirubin (0.0-1.0) mg/dL AST (5-31) U/L ALT (0-31) U/L Alkaline Phosphatase (39-117) U/L Troponin I High Sens 7.5 (<3.5-17.0) ng/L B-Natriuretic Peptide 73 (<100) pg/mL Total Protein (6.5-8.0) g/dL Albumin (3.5-5.0) g/dL COVID-19 (CHEMA) Negative (Negative) COVID-19 Clin Com See Note <Diogo Capps DO - Last Filed: 12/31/22 22:24> Discharge Plan Discharge Clinical Impression: Hypertension, Chest pain <DEV Glover - Last Filed: 12/31/22 17:55> Patient Disposition: Home, Self-Care <DEV Glover - Last Filed: 12/31/22 17:55> Instructions: How to Take a Blood Pressure (ED), Hypertension (ED), Hypertension in the Older Adult (ED) <DEV Glover - Last Filed: 12/31/22 17:55> Additional Instructions: You were seen today at [facility] for not feeling well and having elevated blood pressure. You had extensive workup including CT scans x-rays and labs which did not show any dysfunction or abnormality. Please call follow-up with her doctor if you have worsening pain headache change in vision or chest pain please return to the emergency department. <DEV Glover - Last Filed: 12/31/22 17:55> Prescriptions: No Action citalopram 40 mg tablet 40 mg PO DAILY Qty: 90 3RF cholecalciferol (vitamin D3) 50 mcg (2,000 unit) capsule 50 mcg PO DAILY Qty: 30 5RF atorvastatin 40 mg tablet 40 mg PO BEDTIME 90 Days Qty: 90 1RF diltiazem HCl 240 mg capsule,extended release 24hr 240 mg PO DAILY Qty: 90 0RF pantoprazole 40 mg tablet,delayed release (DR/EC) 40 mg PO BID Qty: 180 0RF (DME) [employer] Kelly 2 Sensor Kit See Rx Instructions .ROUTE .MEDSUPPLY Qty: 2 2RF Rx Instructions: As directed every 2 weeks buspirone 5 mg tablet 5 mg PO DAILY Qty: 30 0RF metoprolol tartrate 50 mg tablet 50 mg PO BID (DME) FreeStyle Precision Jamaal Strips Strip See Rx Instructions .ROUTE .MEDSUPPLY Qty: 50 5RF Rx Instructions: once a day for calibration albuterol sulfate 90 mcg/actuation HFA aerosol inhaler 2 puff inhalation Q4H PRN (Reason: for wheezing) Qty: 8.5 0RF budesonide-formoterol [Symbicort] 160-4.5 mcg/actuation HFA aerosol inhaler 2 puff inhalation BID Qty: 10.2 1RF insulin lispro [Humalog KwikPen Insulin] 100 unit/mL insulin pen 24 unit subcut TID Qty: 15 0RF cefuroxime axetil 250 mg tablet 250 mg PO BID 7 Days Qty: 14 0RF doxycycline monohydrate [Monodox] 100 mg capsule 100 mg PO BID Qty: 14 0RF prednisone 20 mg tablet 40 mg PO DAILY Qty: 14 0RF prednisone 20 mg tablet 1 tab PO DAILY Jardiance 10 mg tablet 1 tab PO DAILY Lantus Solostar U-100 Insulin 100 unit/mL (3 mL) insulin pen 50 unit subcut DAILY hydralazine 25 mg Tablet 50 mg PO BID Qty: 120 0RF Protocol: Hold for SBP< HOLD for SBP < : 90 spironolactone 25 mg Tablet 25 mg PO DAILY Qty: 30 0RF Protocol: Hold for SBP< HOLD for SBP < : 90 docusate sodium 100 mg Capsule 100 mg PO DAILY PRN (Reason: Constipation) Qty: 30 0RF dicyclomine 10 mg Capsule 10 mg PO QIDACHS PRN (Reason: abdominal pain) Qty: 30 0RF azithromycin 250 mg tablet 250 mg PO DAILY 4 Days Qty: 4 0RF Rx Instructions: start on day 2 of therapy albuterol sulfate 2.5 mg/0.5 mL solution for nebulization 2.5 mg inhalation Q6H PRN (Reason: copd) Qty: 30 0RF amoxicillin-pot clavulanate 875-125 mg tablet 1 tab PO BID Qty: 20 0RF prednisone 20 mg tablet 20 mg PO BID Qty: 8 0RF guaifenesin 100 mg/5 mL liquid 100 mg PO Q4H PRN (Reason: cough) furosemide 20 mg tablet 20 mg PO DAILY Rx Instructions: pt was on 7 day supply, notes shew has two days left Eliquis 5 mg tablet 5 mg PO BID melatonin 5 mg capsule 5 mg PO BEDTIME PRN (Reason: Sleep) <DEV Glover - Last Filed: 12/31/22 17:55>
[2022-12-31 18:14] LABS: MANUAL DIFF FLAG NO
[2022-12-31 18:17] LABS: Basophils Absolute Auto 0.1 X10*3/uL (0.0-0.2); Eosinophils Absolute Auto 0.4 X10*3/uL (0.0-0.4); Eosinophils Percent Auto 4.6 % (0-4); Hematocrit 45.7 % (37.0-47.0); Imm Gran Abs Auto 0.05 X10*3/uL (0.00-0.03); Imm Gran Pct Auto 0.5 % (0.0-0.4); Lymphocytes Absolute Auto 2.6 X10*3/uL (1.2-4.9); Lymphocytes Percent Auto 27.3 % (20-40); Mean Corpuscular HGB Conc 32.8 g/dl (31.0-35.0); Mean Corpuscular Hemoglobin 27.5 pg (27.0-33.0); Mean Corpuscular Volume 83.7 fL (80.0-98.0); Monocytes Absolute Auto 0.7 X10*3/uL (0.1-1.2); Monocytes Percent Auto 7.3 % (2-11); Neutrophils Absolute Auto 5.7 x10*3/uL (2.0-8.3); Neutrophils Percent Auto 59.3 % (45-73); Platelet Count 256 X10*3/uL (160-400); Red Blood Count 5.46 X10*6/uL (4.20-5.50); Red Cell Distribution Width 14.2 % (11.0-16.0); White Blood Count 9.6 X10*3/uL (4.8-10.8)
[2022-12-31 18:31] LABS: COVID-19 Test Negative (Negative); IDNOW Serial# 08D9AD1C
[2022-12-31 18:33] LABS: Alanine Aminotransferase 19 U/L (0-31); Albumin Level 4.3 g/dL (3.5-5.0); Alkaline Phosphatase 124 U/L (39-117); Anion Gap 16 (12-20); Aspartate Amino Transferase 16 U/L (5-31); Bilirubin Total 0.4 mg/dL (0.0-1.0); Blood Urea Nitrogen 28 mg/dL (9-16); Calcium 9.3 mg/dL (8.4-10.2); Carbon Dioxide 26 mmol/L (22-29); Chloride 103 mmol/L (96-108); Creatinine Clr Calc Pharmacy 49.4; Estimated Glomerular Filt Rate 49; Glucose Random 216 mg/dL (60-115); Potassium 4.1 mmol/L (3.3-5.1); Sodium 141 mmol/L (135-145); Total Protein 6.9 g/dL (6.5-8.0)
[2022-12-31 18:38] LABS: B Type Natriuretic Peptide 73 pg/mL (<100)
[2022-12-31 18:40] LABS: Troponin-I High Sensitivity 6.8 ng/L (<3.5-17.0)
[2022-12-31 19:47] VITALS: BP 188/75; PULSE 78; RESP 17; TEMP 36.8; O2SAT 97
--- NOTE | 2022-12-31 20:27 | PC.NURSE ---
pt c/o chest pain, HTN, dizziness and headache h/o DMII daughter at bedside no apparent distress aox4
[2022-12-31 20:55] VITALS: BP 174/69; PULSE 80; RESP 13; TEMP 36.4; O2SAT 96
[2022-12-31] MEDS: Labetalol HCL 100 MG/20 ML VIAL 20 MG IVPUSH (21:05)
[2022-12-31] MEDS: Metoprolol Tartrate 50 MG TABLET PO (21:05)
[2022-12-31] MEDS: 0.9 % Sodium Chloride 1,000 ML 999 ML IV (21:31)
[2022-12-31 21:50] LABS: Troponin-I High Sensitivity 7.5 ng/L (<3.5-17.0)
== END 2022-12-31 22:39 | disposition home or self-care (01) ==
PROVIDERS: Physician Assistant; Emergency Provider Student in an Organized Health Care Education/Training Program; PCP Internal Medicine
DX: I10 Essential (primary) hypertension (principal); R07.9 Chest pain, unspecified; R06.02 Shortness of breath; Z20.822 Contact with and (suspected) exposure to COVID-19; E11.9 Type 2 diabetes mellitus without complications; E78.5 Hyperlipidemia, unspecified; Z86.711 Personal history of pulmonary embolism; Z79.01 Long term (current) use of anticoagulants; Z79.02 Long term (current) use of antithrombotics/antiplatelets; Z79.899 Other long term (current) drug therapy; Z79.4 Long term (current) use of insulin
CPT/HCPCS: 36415; 70450; 71045; 80053; 83735; 83880; 84484; 85025; 87635; 93005; 96361; 96374; 99284; 99285

== ENCOUNTER 2023-02-28 11:57 | Emergency (ER) | payer MEDICARE, SELFPAY ==
--- NOTE | ~2023-02-28 | US_ITS ---
EXAMINATION: US VENOUS ULTRASOUND WITH DOPPLER LOWER EXTREMITY, LEFT CLINICAL INFORMATION: Sudden severe posterior knee pain COMPARISON: None available. TECHNIQUE: Ultrasound of the deep veins is performed from the hip to the calf with compression sonography and color and pulse Doppler assessment. Spectral analysis with color-flow imaging is performed. FINDINGS: There is normal venous compression and respiratory variation and augmented flow. The visualized common femoral vein, superficial femoral vein, profunda femoral vein, popliteal vein, and the trifurcation region shows no evidence of deep venous thrombosis. There is a 4.6 x 0.9 x 1.5 cm complex fluid collection in left popliteal fossa. If the patient's symptoms persist, followup ultrasound in 5 days 7 days might be of value to exclude proximal propagation from a non-visualized calf vein. US/US venous duplex LE LT IMPRESSION: No DVT demonstrated in the left lower extremity. Left Magaña's cyst.
[2023-02-28 12:55] VITALS: BP 190/70; PULSE 96; RESP 17; TEMP 36.3; O2SAT 96; BMI 34.3
--- NOTE | 2023-02-28 12:56 | ED.LOWEXIN ---
HPI - Extremity Injury (Lower) General Chief Complaint: Extremity Injury, Lower Stated Complaint: knee inj Time Seen by Provider: 02/28/23 14:11 History of Present Illness HPI Narrative: patient complains of left posterior knee pain which began abruptly when she was crossing a street and felt a pop in the back of her leg, she was walking easily before this but then found it difficult to bear weight without pain She did not fall there is no other injury no other complaint, she has no shortness of breath or chest pain and had no preceding discomfort in her leg Related Data Home Medications Medication Instructions Recorded Confirmed metoprolol tartrate 50 mg tablet 50 mg PO BID 12/25/20 02/05/23 apixaban 5 mg tablet (Eliquis) 5 mg PO BID 09/30/21 02/05/23 melatonin 5 mg capsule 5 mg PO BEDTIME PRN Sleep 09/30/21 02/05/23 empagliflozin 10 mg tablet 1 tab PO DAILY 10/03/21 02/05/23 (Jardiance) insulin glargine 100 unit/mL (3 50 unit subcut DAILY 10/03/21 02/05/23 mL) subcutaneous pen (Lantus Solostar U-100 Insulin) buspirone 5 mg tablet 5 mg PO BID 02/05/23 02/05/23 citalopram 40 mg tablet 20 mg PO DAILY 02/05/23 02/05/23 diltiazem HCl 240 mg 300 mg PO DAILY 02/05/23 02/05/23 capsule,extended release 24 hr dulaglutide 1.5 mg/0.5 mL mg subcut 02/05/23 02/05/23 subcutaneous pen injector (Trulicity) lisinopril 10 1 tab PO DAILY 02/05/23 02/05/23 mg-hydrochlorothiazide 12.5 mg tablet Previous Rx's Medication Instructions Recorded cholecalciferol (vitamin D3) 50 50 mcg PO DAILY #30 caps 07/25/20 mcg (2,000 unit) capsule pantoprazole 40 mg tablet,delayed 40 mg PO BID #180 tabs 09/13/20 release albuterol sulfate 90 mcg/actuation 2 puff inhalation Q4H PRN for 02/24/21 aerosol inhaler wheezing #8.5 grams Symbicort 160 mcg-4.5 2 puff inhalation BID #10.2 grams 09/26/21 mcg/actuation HFA aerosol inhaler (budesonide-formoterol) albuterol sulfate 2.5 mg/0.5 mL 2.5 mg (0.5 mL) inhalation Q6H PRN 10/06/21 solution for nebulization copd #30 ea docusate sodium 100 mg capsule 100 mg PO DAILY PRN Constipation 10/06/21 #30 caps insulin lispro 100 unit/mL 24 unit (0.24 mL) subcut TID #15 mL 05/05/22 subcutaneous pen (Humalog KwikPen (U-100) Insulin) FreeStyle Precision Jamaal Strips #50 ea 02/05/23 (blood sugar diagnostic) atorvastatin 80 mg tablet 80 mg PO QPM #90 tabs 02/05/23 flash glucose sensor (FreeStyle #2 ea 02/05/23 Kelly 2 Sensor kit) acetaminophen 500 mg tablet 1,000 mg PO QID PRN pain #30 tabs 02/28/23 oxycodone 5 mg tablet 5 mg PO Q6H PRN pain #10 tabs 02/28/23 walker #1 ea 02/28/23 Allergies Allergy/AdvReac Type Severity Reaction Status Date / Time Latex, Natural Rubber Allergy Severe blisters Verified 02/05/23 09:19 Sulfa (Sulfonamide Allergy Mild ITCHING, Verified 02/05/23 09:19 Antibiotics) rash [SULFA (SULFONAMIDE ANTIBIOTICS)] nystatin Allergy Unknown rash Verified 02/05/23 09:19 isosorbide [From Imdur] AdvReac Unknown HEADACHES, Verified 02/05/23 09:19 headache tizanidine AdvReac Unknown weakness, Verified 02/05/23 09:19 Hellucination [facility] Past Medical History [facility] Narrative: patient is compliant with Eliquis for prior DVT Source: nursing notes reviewed Medical History (Updated 02/28/23 @ 16:51 by DEV Delaney) CAD (coronary artery disease) COPD (chronic obstructive pulmonary disease) Diabetes type 2, uncontrolled Dyslipidemia Hypertension long-term (current) use of insulin Obesity Obstructive sleep apnea Pulmonary embolism Respiratory failure Warfarin anticoagulation Surgical History (Updated 02/05/23 @ 10:08 by Amanda Leiva MD) History of cardiac cath History of carpal tunnel surgery History of cholecystectomy History of lobectomy of lung Status post tracheoplasty Family History Family History Mother No problems noted. Father No problems noted. Brother Substance use disorder Brother Substance use disorder Social History Social History (Updated 02/05/23 @ 10:09 by Amanda Leiva MD) Household Members: Family Household Members Other:: Lives with daughter and grandson Housing: House Do you presently have visiting nurse or other home services: Yes Alcohol intake: never Patient Tobacco Use Status: Former Tobacco user Quit Date: 1993 Smoked: 10 +/- Smoked in Last 30 Days: No e-Cigarette/Vaping Use: Never Used Advance Directives: Yes Advance Directives Information Provided: Yes Advance Directives on File: No Current occupational status: retired Cognitive needs: No Hearing needs: No Vision needs: No Physical Exam Vital Signs: Vital Signs: Last Vital Signs Temp 98.1 F 02/28/23 16:37 Pulse 95 02/28/23 16:37 Resp 18 02/28/23 16:37 BP 169/54 H 02/28/23 16:37 Pulse Ox 98 02/28/23 16:37 O2 Del Method Room Air 02/28/23 16:37 BMI result Body Mass Index 34.3 general appearance is comfortable no acute distress Head is normocephalic atraumatic Neck is supple Respiratory no distress The back full range of motion The left leg the left posterior knee is tender also there is some tenderness of the left proximal posterior calf, there is no obvious swelling there is no redness no warmth no effusion, the skin is normal Other extremities normal Course Course Course Narrative: This is an RME: Additional HPI, ROS, PE not included below will be deferred to primary provider. Patient is a 72-year-old female who presents emergency department for evaluation of knee pain. Patient states that just prior to arrival she was walking in her yard, when suddenly she felt posterior to the left knee something give way had sudden onset of severe pain, instability, inability to bear weight. No fall. Pain is exacerbated by movement. Denies numbness or tingling. Denies any prior issues with knee pain or injury/surgery. History of DVT/PE for which she is prescribed Eliquis and reports compliance. Ultrasound showed no evidence of DVT, but it did show a Magaña's cyst The history of an abrupt onset of pain with a popping sensation could be some disruption of the Magaña cyst or equally possible is a tendon or muscle injury as she was crossing the street She is given a prescription for a walker and for some pain medicine and will follow with the orthopedist Medications Administered Discontinued Medications Generic Name Dose Route Start Last Admin Trade Name Freq PRN Reason Stop Dose Admin Acetaminophen 975 mg 02/28/23 16:35 02/28/23 16:39 Acetaminophen 325 Mg Tablet PO 02/28/23 16:36 975 mg ONCE ONE Administration Oxycodone HCl 5 mg 02/28/23 16:35 02/28/23 16:39 Oxycodone Hcl Immed Release 5 Mg Tablet PO 02/28/23 16:36 5 mg ONCE ONE Administration Discharge Plan Discharge Clinical Impression: Acute leg pain, Magaña cyst Patient Disposition: Home, Self-Care Additional Instructions: ultrasound did not show any blood clot but it did show a Magaña's cyst Magaña cyst is a fluid collection which may have been there a long time It is not clear whether you may have torn a muscle in the back of her leg or if the Magaña cyst somehow popped, but the ultrasound showed it seemingly intact Follow with orthopedist for further evaluation The exam otherwise did not show any signs of infection or bony injury I wrote a prescription for a walker which is the safest way to get around to decrease her risk of falling and pain medicine if needed Prescriptions: New oxycodone 5 mg tablet 5 mg PO Q6H PRN (Reason: pain) Qty: 10 0RF Rx Instructions: Partial Fill upon patient request. acetaminophen 500 mg tablet 1,000 mg PO QID PRN (Reason: pain) Qty: 30 0RF (DME) walker Misc See Rx Instructions .Route Qty: 1 0RF Rx Instructions: As directed No Action cholecalciferol (vitamin D3) 50 mcg (2,000 unit) capsule 50 mcg PO DAILY Qty: 30 5RF pantoprazole 40 mg tablet,delayed release (DR/EC) 40 mg PO BID Qty: 180 0RF metoprolol tartrate 50 mg tablet 50 mg PO BID albuterol sulfate 90 mcg/actuation HFA aerosol inhaler 2 puff inhalation Q4H PRN (Reason: for wheezing) Qty: 8.5 0RF budesonide-formoterol [Symbicort] 160-4.5 mcg/actuation HFA aerosol inhaler 2 puff inhalation BID Qty: 10.2 1RF insulin lispro [Humalog KwikPen Insulin] 100 unit/mL insulin pen 24 unit subcut TID Qty: 15 0RF Jardiance 10 mg tablet 1 tab PO DAILY Lantus Solostar U-100 Insulin 100 unit/mL (3 mL) insulin pen 50 unit subcut DAILY docusate sodium 100 mg Capsule 100 mg PO DAILY PRN (Reason: Constipation) Qty: 30 0RF albuterol sulfate 2.5 mg/0.5 mL solution for nebulization 2.5 mg inhalation Q6H PRN (Reason: copd) Qty: 30 0RF buspirone 5 mg tablet 5 mg PO BID citalopram 40 mg tablet 20 mg PO DAILY diltiazem HCl 240 mg capsule,extended release 24hr 300 mg PO DAILY Trulicity 1.5 mg/0.5 mL pen injector subcut lisinopril-hydrochlorothiazide 10-12.5 mg tablet 1 tab PO DAILY (DME) FreeStyle Precision Jamaal Strips Strip See Rx Instructions .ROUTE .MEDSUPPLY Qty: 50 5RF Rx Instructions: once a day for calibration (DME) FreeStyle Kelly 2 Sensor Kit See Rx Instructions .ROUTE .MEDSUPPLY Qty: 2 2RF Rx Instructions: As directed every 2 weeks atorvastatin 80 mg tablet 80 mg PO QPM Qty: 90 2RF Eliquis 5 mg tablet 5 mg PO BID melatonin 5 mg capsule 5 mg PO BEDTIME PRN (Reason: Sleep) Referrals: Kristopher Gonzalez MD [Physician] - ( Magaña's cyst/muscle tear left leg)
[2023-02-28 15:48] VITALS: BP 170/61; PULSE 98; RESP 16; O2SAT 94
[2023-02-28 16:37] VITALS: BP 169/54; PULSE 95; RESP 18; TEMP 36.7; O2SAT 98
[2023-02-28] MEDS: Acetaminophen 325 MG TABLET 975 MG PO (16:39)
[2023-02-28] MEDS: oxyCODONE HCl Immed Release 5 MG TABLET PO (16:39)
== END 2023-02-28 17:34 | disposition home or self-care (01) ==
PROVIDERS: Emergency Provider Internal Medicine; PCP Internal Medicine
DX: M71.22 Synovial cyst of popliteal space [Baker], left knee (principal); M25.562 Pain in left knee; E11.9 Type 2 diabetes mellitus without complications; R60.0 Localized edema; I25.10 Atherosclerotic heart disease of native coronary artery without angina pectoris; Z87.891 Personal history of nicotine dependence; Z79.899 Other long term (current) drug therapy; Z79.4 Long term (current) use of insulin
CPT/HCPCS: 93971; 99284

== ENCOUNTER 2023-03-18 07:42 | Outpatient (REF) | payer MEDICARE, SELFPAY ==
[2023-03-18 11:49] LABS: Estimated Average Glucose 174 mg/dL; Hemoglobin A1c % 7.7 %
[2023-03-18 12:14] LABS: Alanine Aminotransferase 19 U/L (0-31); Alkaline Phosphatase 107 U/L (39-117); Anion Gap 12 (12-20); Aspartate Amino Transferase 15 U/L (5-31); Bilirubin Total 0.4 mg/dL (0.0-1.0); Blood Urea Nitrogen 23 mg/dL (9-16); Calcium 9.7 mg/dL (8.4-10.2); Carbon Dioxide 29 mmol/L (22-29); Chloride 104 mmol/L (96-108); Cholesterol 157 mg/dL; Estimated Glomerular Filt Rate 43; Glucose Fasting 163 mg/dL (60-99); HDL Cholesterol 41 mg/dL; LDL Cholesterol Calculated 89 mg/dl; Potassium 4.7 mmol/L (3.3-5.1); Sodium 140 mmol/L (135-145); Total Protein 7.2 g/dL (6.5-8.0); Triglycerides 136 mg/dL
[2023-03-18 12:16] LABS: TSH reflex Free T4 3.62 uIU/mL (0.32-4.0)
[2023-03-18 12:29] LABS: Folate 8.3 ng/mL (> or = 4.0); Vitamin B12 411 pg/mL (200-900)
== END 2023-03-18 07:43 | disposition home or self-care (01) ==
LOC: HO.HMGCLDS 07:42
PROVIDERS: PCP Internal Medicine; Visit Provider Internal Medicine
DX: E11.65 Type 2 diabetes mellitus with hyperglycemia (principal); E78.5 Hyperlipidemia, unspecified; I10 Essential (primary) hypertension; J44.9 Chronic obstructive pulmonary disease, unspecified; G47.33 Obstructive sleep apnea (adult) (pediatric); I25.10 Atherosclerotic heart disease of native coronary artery without angina pectoris
CPT/HCPCS: 36415; 80053; 80061; 82607; 82746; 83036; 84443

== ENCOUNTER 2023-03-19 11:06 | Outpatient (AMB) | payer MEDICARE, SELFPAY ==
[2023-03-19 11:28] VITALS: BP 130/64; PULSE 75; O2SAT 97; BMI 34.8
--- NOTE | 2023-03-19 11:28 | MHC.PC.OV ---
Vital Signs 03/19/23 11:28 Height 5 ft 4 in Weight 203 lb BMI 34.8 BP 130/64 Blood Pressure Location Lt brachial Position Sitting Pulse 75 Pulse Source Pulse Oximeter Pulse Oximetry (%) 97 Oxygen Delivery Method Room Air Intake Visit Reasons: 6 week follow up DM Intake Note: Pt is here today for 6 weeks follow up visit on DM. Allergies Latex, Natural Rubber Allergy (Severe, Verified 03/19/23 11:35) blisters Sulfa (Sulfonamide Antibiotics) [SULFA (SULFONAMIDE ANTIBIOTICS)] Allergy (Mild, Verified 03/19/23 11:35) ITCHING, rash nystatin Allergy (Unknown, Verified 03/19/23 11:35) rash isosorbide [From Imdur] Adverse Reaction (Unknown, Verified 03/19/23 11:35) HEADACHES, headache tizanidine Adverse Reaction (Unknown, Verified 03/19/23 11:35) weakness, Hellucination Medication List - Last Reviewed 03/19/23 by SAMMY Cannon acetaminophen 1,000 mg (2 x 500 mg) PO QID PRN albuterol sulfate 2.5 mg (0.5 mL) inhalation Q6H PRN albuterol sulfate 90 mcg/actuation 2 puffs inhalation Q4H PRN apixaban (Eliquis) 5 mg PO BID atorvastatin 80 mg PO QPM buspirone 5 mg PO BID cholecalciferol (vitamin D3) 50 mcg PO DAILY citalopram 20 mg PO DAILY diltiazem HCl 300 mg PO DAILY docusate sodium 100 mg PO DAILY PRN dulaglutide (Trulicity) mg subcut empagliflozin (Jardiance) 25 mg PO DAILY flash glucose sensor (FreeStyle Kelly 2 Sensor kit) As directed every 2 weeks FreeStyle Precision Jamaal Strips (blood sugar diagnostic) once a day for calibration NS insulin glargine (Lantus Solostar U-100 Insulin) 50 units (0.5 mL) subcut DAILY insulin lispro (Humalog KwikPen (U-100) Insulin) 24 units (0.24 mL) subcut TID lisinopril-hydrochlorothiazide 10-12.5 mg 1 tab PO DAILY melatonin 5 mg PO BEDTIME PRN metoprolol tartrate 50 mg PO BID pantoprazole 40 mg PO BID Symbicort 160-4.5 mcg/actuation (budesonide-formoterol) 2 puffs inhalation BID NS walker As directed Tobacco use date assessed: 03/19/23 Dental Screening Dental Screen Date: 03/19/23 Did you have a dental visit in the last 12 months?: No Did you have a dental problem in the last 6 months where you did not have access to dental care?: No Was dental information given to patient?: Patient declined HPI 6 week follow up DM HPI Details Patient presents for follow-up of type 2 diabetes hypertension hyperlipidemia chronic kidney disease. 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 Father No problems noted. Brother Substance use disorder Brother Substance use disorder Social History Household Members: Family Household Members Other:: Lives with daughter and grandson Housing: House Do you presently have visiting nurse or other home services: Yes Alcohol intake: never Patient Tobacco Use Status: Former Tobacco user Quit Date: 1993 Smoked: 10 +/- e-Cigarette/Vaping Use: Never Used Current occupational status: retired Cognitive needs: No Hearing needs: No Vision needs: No Questionnaire Thrive Questionnaire Date Thrive assessed: 02/05/23 DOMINIQUE-7 AMB Questionnaire DOMINIQUE-7 Date DOMINIQUE - 7 assessed: 02/05/23 Source: Developed by Drs. Jeronimo Wallis, Saige Barrios, Nj Will and colleagues, with an educational katharine from [employer]. Review of Systems Const All systems reviewed & are unremarkable except as noted in HPI and below Reports no additional complaints Eyes Reports no additional complaints ENT Reports no additional complaints Resp Reports no additional complaints GI Reports no additional complaints Reports no additional complaints Physical exam (Primary Care) Vital Signs: Last Vital Signs Pulse 75 03/19/23 11:28 BP 130/64 03/19/23 11:28 Pulse Ox 97 03/19/23 11:28 Oxygen Delivery Method Room Air 03/19/23 11:28 BMI result Body Mass Index 34.8 Tobacco/Smoking Status: Tobacco use Status Tobacco use date assessed 03/19/23 03/19/23 11:38 Patient Tobacco Use Status Former Tobacco user 03/19/23 11:29 e-Cigarette/Vaping Use Never Used 03/19/23 11:29 Thrive Assessment: Date of Thrive Assessment Date Thrive assessed 02/05/23 03/19/23 11:29 Const General: no acute distress HENMT Head: Yes normal to inspection Throat: Yes posterior oropharynx normal Resp Effort & Inspection: normal respiratory effort Auscultation: clear to auscultation bilaterally Cardio Rhythm: regular rhythm Heart sounds: S1 normal heart sound present and S2 normal heart sound present GI Inspection: Yes normal to inspection Palpation (GI): Soft to palpation Percussion: Yes normal to percussion Auscultation: normal bowel sounds Assessment and Plan Assessment & Plan (1) Diabetes type 2, uncontrolled: Code(s): E11.65 - Type 2 diabetes mellitus with hyperglycemia Plan: A1c 7.4 an average blood glucose readings around 200. Jardiance will be increased to 25 mg. Patient will continue the rest of medications. 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: Code(s): Z79.4 - longterm (current) use of insulin (3) Hypertension: Code(s): I10 - Essential (primary) hypertension Plan: cont meds (4) Dyslipidemia: Code(s): E78.5 - Hyperlipidemia, unspecified Plan: cont statin (5) CKD stage 3 due to type 2 diabetes mellitus: Code(s): E11.22 - Type 2 diabetes mellitus with diabetic chronic kidney disease; N18.30 - Chronic kidney disease, stage 3 unspecified Plan: avoid NSAIDs Medications: New insulin glargine (Lantus Solostar U-100 Insulin) 50 units (0.5 mL) subcut DAILY 15 mL 3RF Coding Level of Care Code Est Pt Level 4 (20317) Diagnoses Diabetes type 2, uncontrolled 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
== END 2023-03-19 12:46 | disposition home or self-care (01) ==
PROVIDERS: PCP Internal Medicine; Visit Provider Internal Medicine
DX: E11.65 Type 2 diabetes mellitus with hyperglycemia (principal); Z79.4 Long term (current) use of insulin; E11.22 Type 2 diabetes mellitus with diabetic chronic kidney disease; N18.30 Chronic kidney disease, stage 3 unspecified; I12.9 Hypertensive chronic kidney disease with stage 1 through stage 4 chronic kidney disease, or unspecified chronic kidney disease; E78.5 Hyperlipidemia, unspecified
CPT/HCPCS: 99214

== ENCOUNTER 2023-06-25 11:50 | Inpatient (IN) | payer MEDICARE, SELFPAY ==
[2023-06-25] VITALS (11 sets, daily range): BP systolic 109–132; BP diastolic 43–63; PULSE 63–80; RESP 12–20; TEMP 36.1–36.4; O2SAT 93–98; BMI 34.3; BMI 35.7
--- NOTE | ~2023-06-25 | XR_ITS ---
EXAMINATION: XR CHEST CLINICAL INFORMATION: Cough shortness of breath COMPARISON: 12/31/2022 TECHNIQUE: 2 views of the chest were obtained. FINDINGS: No acute finding. There are chronic markings here when compared to previous exam. No convincing evidence for superimposed acute process. The cardiac silhouette is felt to be within normal limits. The hilar regions do not appear pathologically enlarged. There is no effusion. Degenerative change in the thoracic spine is noted. XR/XR chest 2V IMPRESSION: Chronic markings. No convincing evidence for an acute process.
--- NOTE | 2023-06-25 11:53 | ED.GENADULT ---
HPI - General Adult General Chief complaint: Upper Respiratory Symptoms Stated complaint: congestion diff breating Time Seen by Provider: 06/25/23 11:57 Source: patient Mode of arrival: ambulatory Limitations: no limitations History of Present Illness HPI narrative: 72 yo female with history of COPD, CKD, DM, CAD, ALYSIA, HTN, HLD, hx PE on Eliquis who presents to the ER from home for evaluation of SOB, productive cough of green phlegm and wheezing for the last 2-3 days. She states at baseline she does not use inhalers or nebulizers but yesterday she used them both with no relief. She states her SOB has been worsening, especially with exertion or coughing. She states she has central chest pains as well, they come and go and are mostly when she coughs. The pains are aching and radiate to both shoulders. She has diffuse joint aches. No known sick contacts. MD complaint: SOB, productive cough Onset (ago): day(s) (3) Location: chest Radiation: extremity Severity: moderate Severity scale (1-10): 5 Quality: aching Pain Consistency: intermittent Relieving factors: none Exacerbating factors: movement Associated symptoms: chest pain, cough, loss of appetite, malaise, shortness of breath and weakness Treatments prior to arrival: none Related Data Home Medications Medication Instructions Recorded Confirmed apixaban 5 mg tablet (Eliquis) 5 mg PO BID 09/30/21 06/25/23 citalopram 40 mg tablet 20 mg PO DAILY 02/05/23 06/25/23 dulaglutide 1.5 mg/0.5 mL 1 mg subcut Q7D 02/05/23 06/25/23 subcutaneous pen injector (Trulicity) albuterol sulfate 2.5 mg/0.5 mL 5 mg inhalation Q6H PRN Shortness 06/25/23 06/25/23 solution for nebulization Of Breath albuterol sulfate 90 mcg/actuation 2 puff inhalation Q4H PRN 06/25/23 06/25/23 aerosol inhaler (ProAir HFA) Shortness Of Breath diltiazem HCl 300 mg 300 mg PO DAILY 06/25/23 06/25/23 tablet,extended release 24 hr (Matzim LA) doxycycline hyclate 100 mg tablet 100 mg PO BID 06/25/23 06/25/23 insulin lispro 100 unit/mL 1 sliding scale dose subcut QIDACHS 06/25/23 06/25/23 subcutaneous pen (Humalog KwikPen (U-100) Insulin) prednisone 10 mg tablet 30 mg PO DAILY 06/25/23 06/25/23 Previous Rx's Medication Instructions Recorded atorvastatin 80 mg tablet 80 mg PO QPM #90 tabs 02/05/23 walker #1 ea 02/28/23 empagliflozin 25 mg tablet 25 mg PO DAILY #90 tabs 03/19/23 (Jardiance) insulin glargine 100 unit/mL (3 50 unit (0.5 mL) subcut DAILY #15 03/19/23 mL) subcutaneous pen (Lantus mL Solostar U-100 Insulin) blood sugar diagnostic (FreeStyle #100 ea 03/26/23 Lite Strips) lisinopril 10 1 tab PO DAILY #90 tabs 04/21/23 mg-hydrochlorothiazide 12.5 mg tablet metoprolol tartrate 50 mg tablet 50 mg PO BID #180 tabs 04/21/23 flash glucose sensor (FreeStyle #6 ea 05/14/23 Kelly 2 Sensor kit) Allergies Allergy/AdvReac Type Severity Reaction Status Date / Time Latex, Natural Rubber Allergy Severe blisters Verified 06/25/23 11:54 Sulfa (Sulfonamide Allergy Mild ITCHING, Verified 06/25/23 11:54 Antibiotics) rash [SULFA (SULFONAMIDE ANTIBIOTICS)] nystatin Allergy Unknown rash Verified 06/25/23 11:54 isosorbide [From Imdur] AdvReac Unknown HEADACHES, Verified 06/25/23 11:54 headache tizanidine AdvReac Unknown weakness, Verified 06/25/23 11:54 Hellucination Review of Systems Review of Systems: Yes all other systems are reviewed and are negative [facility] Past Medical History Medical History CAD (coronary artery disease) COPD (chronic obstructive pulmonary disease) Diabetes type 2, uncontrolled Dyslipidemia Hypertension halfway (current) use of insulin Obesity Obstructive sleep apnea Pulmonary embolism Respiratory failure Warfarin anticoagulation Surgical History History of cardiac cath History of carpal tunnel surgery History of cholecystectomy History of lobectomy of lung Status post tracheoplasty Family History Family History Mother No problems noted. Father No problems noted. Brother Substance use disorder Brother Substance use disorder Social History Social History Household Members: Family Household Members Other:: Lives with daughter and grandson Housing: House Do you presently have visiting nurse or other home services: Yes Alcohol intake: never Patient Tobacco Use Status: Former Tobacco user Quit Date: 1993 Smoked: 10 +/- Smoked in Last 30 Days: No e-Cigarette/Vaping Use: Never Used Use of substances other than those prescribed or required for medical reasons: No Advance Directives: No Advance Directives Information Provided: No Current occupational status: retired Cognitive needs: No Hearing needs: No Vision needs: No Physical Exam ED Vital Signs: Vital Signs - 24 hr 06/25/23 11:54 06/25/23 12:22 06/25/23 12:27 Temperature 97.5 F Pulse Rate 67 69 Respiratory Rate 19 20 Blood Pressure 118/43 L Pulse Oximetry 96 95 Oxygen Delivery Method Room Air Room Air 06/25/23 14:10 Temperature Pulse Rate 63 Respiratory Rate 14 Blood Pressure 114/57 L Pulse Oximetry 96 Oxygen Delivery Method Room Air BMI result Body Mass Index 34.3 Appearance: Alert. Oriented X3. Mild-mod respiratory distress with audible wheezing. Head: normocephalic, atraumatic. Eyes: Pupils equal, round and reactive to light. ENT: Pharynx normal. No tonsillar swelling or exudate. Neck: Normal inspection. Neck supple. CVS: Normal heart rate and rhythm. Pulses normal. Mild tenderness anterior chest wall Respiratory: Mild-moderate respiratory distress. Breath sounds w/ diffuse inspiratory and expiratory wheezes throughout. Abdomen: Obese Soft and nontender. +BS x4 Skin: Skin warm and dry. Normal skin color. Normal skin turgor. No rashes. Extremities: No lower extremity edema. No joint swelling. Neuro/psych: Oriented X 3. No motor deficit. No sensory deficit. CN II-XII intact. Normal speech and cognition. Course Course Course Narrative: RME performed by Jenn Freed PA-C. Patient is a 72 year old assigned female at presenting to the emergency department with congestion and difficulty breathing. Labs, imaging, and swabs ordered. Patient placed directly into room 3. Reevaluation(s) Reevaluation #1: critical result of troponin 2400. given ASA anticoagulated on aspirin. robert consulted and ECHO ordered will admit Time: 13:03 Medications Administered Generic Name Dose Route Start Last Admin Trade Name Freq PRN Reason Stop Dose Admin Azithromycin 500 mg/ Sodium 250 mls @ 125 mls/hr 06/25/23 13:50 06/25/23 14:18 Chloride IV 06/25/23 15:49 125 mls/hr ONCE ONE Administration Discontinued Medications Generic Name Dose Route Start Last Admin Trade Name Freq PRN Reason Stop Dose Admin Albuterol/Ipratropium 3 ml 06/25/23 12:22 06/25/23 12:25 Albuterol/Iprat 2.5/0.5mg 3 Ml Ampul.Neb INHALE 06/25/23 12:23 3 ml ONCE ONE Administration Aspirin 325 mg 06/25/23 13:03 06/25/23 13:55 Aspirin 325 Mg Tablet PO 06/25/23 13:04 325 mg ONCE ONE Administration Magnesium Sulfate 2 gm in 50 mls @ 25 mls/hr 06/25/23 12:04 06/25/23 14:08 Magnesium Sulfate/H2o IV 06/25/23 14:03 25 mls/hr ONCE ONE Administration Methylprednisolone Sodium Succinate 125 mg 06/25/23 12:04 06/25/23 14:08 Methylprednisolone Sod Succ 125 Mg/2 Ml Vial IVPUSH 06/25/23 12:05 125 mg ONCE ONE Administration Medical Decision Making Medical Decision Making MDM Narrative: 72 yo female with history of COPD, CKD, DM, CAD, ALYSIA, HTN, HLD, hx PE on Eliquis who presents to the ER from home for evaluation of SOB, productive cough of green phlegm and wheezing for the last 2-3 days. +chest pain that radiates to both shoulders w/ coughing. VSS on arrival aside from RR mid 20s. She is wheezing throughout. ED bronch protocol ordered along w/ 125 mg IV solumedrol and Mg++ given WOB. 13:08 - critical result of troponin 2400. EKG without ST elevations or depressions. she is on eliquis, ASA ordered. Cardiology consulted - recommending ECHO, ok to continue Eliquis for now. will plan for admission. IV antibiotics ordered for possible CAP. patient is not septic at this time Differential Diagnosis Differential Diagnoses: The differential diagnosis associated with the presentation includes acute COPD exacerbation, acute CHF exacerbation, CAP, NSTEMI, pericarditiis, myocarditis, COVID, Flu, other viral syndrome Admission/Observation Consideration of admission/observation: Escalation of care including admission/observation considered Consult Healthcare Provider Management of the patient was discussed with: Twisting Department End Finder cardiology dr. jones Lab Data MDM Lab Attestation statement: I reviewed the patient's lab results. leukocytosis, low procal 06/25/23 12:27 06/25/23 12:27 Labs: Lab Results 06/25/23 06/25/23 Range/Units 12:27 13:26 WBC 16.7 H (4.8-10.8) X10*3/uL RBC 5.06 (4.20-5.50) X10*6/uL Hgb 14.2 (12.0-16.0) g/dl Hct 43.9 (37.0-47.0) % MCV 86.8 (80.0-98.0) fL MCH 28.1 (27.0-33.0) pg MCHC 32.3 (31.0-35.0) g/dl RDW 14.6 (11.0-16.0) % Plt Count 298 (160-400) X10*3/uL MPV 9.8 (9.4-12.3) fL Immature Gran % (Auto) 0.5 H (0.0-0.4) % Neut % (Auto) 87.1 H (45-73) % Lymph % (Auto) 7.5 L (20-40) % [place] % (Auto) 3.4 (2-11) % Eos % (Auto) 1.1 (0-4) % Baso % (Auto) 0.4 (0-2) % Lymph # (Auto) 1.3 (1.2-4.9) X10*3/uL [place] # (Auto) 0.6 (0.1-1.2) X10*3/uL Eos # (Auto) 0.2 (0.0-0.4) X10*3/uL Baso # (Auto) 0.1 (0.0-0.2) X10*3/uL Abs Immat Gran (auto) 0.08 H (0.00-0.03) X10*3/uL Absolute Neuts (auto) 14.5 H (2.0-8.3) x10*3/uL Absolute Nucleated RBC 0.000 (0.0-0.012) X10*3/uL Nucleated RBC % (auto) 0.0 (0.0-0.2) /100WBC PT 15.3 H (11.1-13.3) SEC INR 1.3 H (0.9-1.1) APTT 30.2 (26.0-36.4) SEC Sodium 137 (135-145) mmol/L Potassium 5.1 (3.3-5.1) mmol/L Chloride 104 (96-108) mmol/L Carbon Dioxide 21 L (22-29) mmol/L Anion Gap 17 (12-20) BUN 46 H (9-16) mg/dL Creatinine 1.46 H (0.5-1.4) mg/dL Estim Creat Clear Calc 36.8 Estimated GFR 35 Random Glucose 104 (60-115) mg/dL Lactic Acid 1.4 (0.5-2.0) mmol/L Calcium 9.3 (8.4-10.2) mg/dL Magnesium 2.3 (1.6-2.6) mg/dL Total Bilirubin 0.4 (0.0-1.0) mg/dL AST 28 (5-31) U/L ALT 25 (0-31) U/L Alkaline Phosphatase 95 (39-117) U/L Troponin I High Sens 2476.1 H* D (<3.5-17.0) ng/L Total Protein 7.4 (6.5-8.0) g/dL Albumin 3.9 (3.5-5.0) g/dL Procalcitonin 0.05 ng/mL COVID-19 (CHEMA) Negative (Negative) COVID-19 Clin Com See Note Influenza Type A (PCR) NEGATIVE (Negative) Influenza Type B (PCR) NEGATIVE (Negative) RSV RNA Qual (PCR) NEGATIVE (Negative) SARS-CoV-2 RNA (RT-PCR) NEGATIVE (Negative) Independent Interpretation I performed an independent interpretation of an: EKG and Plain X-Ray Interpretation: no focal infiltrate, increased vascular markings ekg w/ normal sinus rhythm, HR 71 bpm, no ST segment elevations or depressions, MA interval 194, normal QTc Radiology Impression Discussion of test interpretation with radiology: I have reviewed the radiologist's reading. Radiologist Impression: EXAMINATION: XR CHEST CLINICAL INFORMATION: Cough shortness of breath COMPARISON: 12/31/2022 TECHNIQUE: 2 views of the chest were obtained. FINDINGS: No acute finding. There are chronic markings here when compared to previous exam. No convincing evidence for superimposed acute process. The cardiac silhouette is felt to be within normal limits. The hilar regions do not appear pathologically enlarged. There is no effusion. Degenerative change in the thoracic spine is noted. XR/XR chest 2V IMPRESSION: Chronic markings. No convincing evidence for an acute process. External Record Review External record reviewed: Inpatient record, Office record, Outpatient record, Prior outpatient labs and Prior outpatient radiology Prescription Management I considered prescription management with: Antibiotic Chronic Conditions Patient?s care impacted by: Hypertension and Other (COPD) Critical Care Time Critical Care Time Critical Care Time: Yes Total Critical Care Time: 44 Attestation: I have personally provided critical care time exclusive of time spent on separately billable procedures. Time includes review of lab data, radiology results, discussion with consultants, and monitoring for potential decompensation. Intervention performed as documented. Discharge Plan Discharge Clinical Impression: Acute exacerbation of chronic obstructive pulmonary disease, Non-ST elevation WI (NSTEMI) Patient Disposition: Admitted As Inpatient
--- NOTE | 2023-06-25 11:54 | ECG_ITS ---
Test Reason : CHEST PAIN Blood Pressure : / mmHG Vent. Rate : 071 BPM Atrial Rate : 071 BPM P-R Int : 194 ms QRS Dur : 072 ms QT Int : 394 ms P-R-T Axes : 056 042 092 degrees QTc Int : 428 ms Normal sinus rhythm Normal ECG When compared with ECG of 31-DEC-2022 17:57, No significant change was found Referred By: Jenn Freed Electronically Signed By:YUDY DEE MD
[2023-06-25] MEDS: Albuterol/Iprat 2.5/0.5MG 3 ML AMPUL.NEB INHALE ×3 (12:25→19:45)
[2023-06-25 12:33] LABS: MANUAL DIFF FLAG NO
[2023-06-25 12:37] LABS: Basophils Absolute Auto 0.1 X10*3/uL (0.0-0.2); Basophils Percent Auto 0.4 % (0-2); Eosinophils Absolute Auto 0.2 X10*3/uL (0.0-0.4); Eosinophils Percent Auto 1.1 % (0-4); Hematocrit 43.9 % (37.0-47.0); Hemoglobin 14.2 g/dl (12.0-16.0); Imm Gran Abs Auto 0.08 X10*3/uL (0.00-0.03); Imm Gran Pct Auto 0.5 % (0.0-0.4); Lymphocytes Absolute Auto 1.3 X10*3/uL (1.2-4.9); Lymphocytes Percent Auto 7.5 % (20-40); Mean Corpuscular HGB Conc 32.3 g/dl (31.0-35.0); Mean Corpuscular Hemoglobin 28.1 pg (27.0-33.0); Mean Corpuscular Volume 86.8 fL (80.0-98.0); Mean Platelet Volume 9.8 fL (9.4-12.3); Monocytes Absolute Auto 0.6 X10*3/uL (0.1-1.2); Monocytes Percent Auto 3.4 % (2-11); Neutrophils Absolute Auto 14.5 x10*3/uL (2.0-8.3); Neutrophils Percent Auto 87.1 % (45-73); Platelet Count 298 X10*3/uL (160-400); Red Blood Count 5.06 X10*6/uL (4.20-5.50); Red Cell Distribution Width 14.6 % (11.0-16.0); White Blood Count 16.7 X10*3/uL (4.8-10.8)
[2023-06-25 12:44] LABS: Lactic Acid 1.4 mmol/L (0.5-2.0)
[2023-06-25 12:51] LABS: Alanine Aminotransferase 25 U/L (0-31); Albumin Level 3.9 g/dL (3.5-5.0); Alkaline Phosphatase 95 U/L (39-117); Anion Gap 17 (12-20); Aspartate Amino Transferase 28 U/L (5-31); Bilirubin Total 0.4 mg/dL (0.0-1.0); Blood Urea Nitrogen 46 mg/dL (9-16); Calcium 9.3 mg/dL (8.4-10.2); Carbon Dioxide 21 mmol/L (22-29); Chloride 104 mmol/L (96-108); Creatinine Clr Calc Pharmacy 36.8; Estimated Glomerular Filt Rate 35; Glucose Random 104 mg/dL (60-115); Magnesium 2.3 mg/dL (1.6-2.6); Potassium 5.1 mmol/L (3.3-5.1); Sodium 137 mmol/L (135-145); Total Protein 7.4 g/dL (6.5-8.0)
[2023-06-25 12:54] LABS: INTERNATIONAL NORM RATIO 1.3 (0.9-1.1); Prothrombin Time 15.3 SEC (11.1-13.3)
[2023-06-25 12:57] LABS: Partial Thromboplastin Time 30.2 SEC (26.0-36.4)
[2023-06-25 13:00] LABS: Troponin-I High Sensitivity 2476.1 ng/L (<3.5-17.0)
--- NOTE | 2023-06-25 13:43 | CA_ITS ---
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 The calculated ejection fraction is 68% by biplane method. - There is severely increased left ventricular wall thickness. - Evidence suggests grade II (moderate) diastolic dysfunction. - There is mild aortic valve stenosis. Findings Procedure Information Contrast agent, definity, is being given per protocol without apparent complications. Left Ventricle Normal left ventricular cavity size. There is severely increased left ventricular wall thickness. The left ventricular systolic function is normal. The calculated ejection fraction is 68% by biplane method. There is no evidence of regional wall motion abnormalities. Evidence suggests grade II (moderate) diastolic dysfunction. Right Ventricle Normal right ventricular cavity size and systolic function. Atria The left atrium is likely dilated. The right atrium is normal in size. Aortic Valve There is moderate calcification of the aortic valve. There is mild aortic valve stenosis. There is mild aortic valve regurgitation. Mitral Valve There is mild mitral annular calcification. There is trace mitral valve regurgitation. There is no mitral valve stenosis. Pulmonic Valve The pulmonic valve is likely normal. Tricuspid Valve There is no tricuspid valve regurgitation. Tricuspid regurgitation envelope is inadequate for calculation of right ventricular systolic pressure. Great Vessels The asc aorta is normal in size. Venous The inferior vena cava is normal in size and collapses greater than 50% with inspiration. Pericardium/Pleural There is a trivial pericardial effusion. Prior Study Comparison No significant change compared to prior study dated: 03/07/2018. Measurements 2D Linear Measurements IVSd: 1.62 0.6-0.9/0.6-1.0 cm LVIDd: 3.85 3.9-5.3/4.2-5.9 cm LVIDd Index: 1.96 2.4-3.2/2.2-3.1 cm/m2 LVIDs: 2.49 2.0-3.6 cm LVPWd: 1.62 0.7-1.1 cm LA Diam: 3.70 2.7-3.8/3.0-4.0 cm LAIDs Index: 1.89 1.5-2.3 cm/m2 LV Mass: 311.31 67-162/88-224 g LV Mass Index: 158.83 43-95/49-115 g/m2 LVOT Diam: 2.20 3.0+(-)1.3 cm 2D Systolic Function EF 4C: 76.10 >55% EF 2C: 58.80 >55% EF BiP: 67.60 >55% Mitral Valve MV Pk E: 1.38 MV PK A: 1.22 MV Decel Time: 296.00 E/A: 1.10 E'Lateral: 5.55 E'Medial: 4.03 E/E' Med: 34.20 E/E' Lat: 24.90 PHT: 87.00 MVA PHT: 2.53 Decel Graham: 4.65 Aortic Valve AoV Pk Yunier: 2.13 AoV Mn Yunier: 1.51 AoV VTI: 0.50 AoV Pk Grad: 18.00 Aov Mn Grad: 10.00 KIKI Cont.VTI: 1.80 LVOT LVOT Pk Yunier: 0.90 LVOT Mn Yunier: 0.62 LVOT VTI: 0.24 LVOT Pk Grad: 3.00 LVOT Mn Grad: 2.00 LVOT Diam: 2.20 LVOT Area: 3.80 Diastolic Function MV Pk E: 1.38 MV Pk A: 1.22 E/A: 1.10 E'Medial: 4.03 E/E' Med: 34.20 E' Laterial: 5.55 E/E' Lat: 24.90 Right Ventricle TAPSE (mm): 21.90 TVS' Yunier: 9.57 Tricuspid Valve TR Pk Yunier: 1.49 TR Pk Grad: 9.00 RA Press: 3.00 RVSP: 12.00 Great Vessels Aorta Sinus of Valsalva: 3.10 2.0-3.5 cm Ao Asc: 3.10 2.1-3.4 cm Pulmonary Valve PV Pk Yunier: 0.88 Peak PV Grad: 3.00 Updated in Other Vendor System with Status of Final Ayan Leblanc MD electronically signed on 06/26/2023 12:19:06 PM with status of Final
[2023-06-25] MEDS: Aspirin 325 MG TABLET PO (13:55)
[2023-06-25] MEDS: methylPREDNISolone Sod Succ 125 MG/2 ML VIAL IVPUSH (14:08)
[2023-06-25] MEDS: Magnesium Sulfate/H2O 2 GM/50 ML PIGGYBACK IV (14:08)
[2023-06-25 14:18] LABS: Procalcitonin 0.05 ng/mL
[2023-06-25] MEDS: Azithromycin 500 MG in 0.9 % Sodium Chloride 250 ML 125 MG IV (14:18)
[2023-06-25 14:26] LABS: COVID-19 Test Negative (Negative); IDNOW Serial# 55D5AD1C
[2023-06-25 14:44] LABS: Influenza A PCR NEGATIVE (Negative); Influenza B PCR NEGATIVE (Negative); Resp Syncy Virus RNA Qual PCR NEGATIVE (Negative); SARS COV2 PCR INHOUSE NEGATIVE (Negative)
--- NOTE | 2023-06-25 15:19 | PHA.MEDREC ---
Pharmacy Consult ? Medication Reconciliation Pharmacy has completed the medication reconciliation.
[2023-06-25] MEDS: cefTRIAXone sodium 1 GM in 0.9 % Sodium Chloride 50 ML IV (16:31)
[2023-06-25 17:01] LABS: Glucose, Whole Blood 185 mg/dL (60-115)
[2023-06-25] MEDS: methylPREDNISolone Sod Succ 40 MG/ML VIAL IVPUSH ×2 (17:02→20:37)
[2023-06-25 17:32] LABS: Troponin-I High Sensitivity 2372.5 ng/L (<3.5-17.0)
--- NOTE | 2023-06-25 17:48 | PM.IMHP ---
History of Present Illness Date of Service: 06/25/23 Attending physician on admission: Kenrick Millard Chief Complaint: sob 72 yo f with pmhx COPD, CKD, DM, CAD, ALYSIA, HTN, HLD, hx PE on Eliquis who presents to the ER from home for evaluation of SOB, productive cough of green phlegm and wheezing for the last 2-3 days. she also c/o of chest tightness ,interrmittent ,radiating to b/l shoulders ,She states she has central chest pains as well, they come and go and are mostly when she coughs. She states her SOB has been worsening, especially with exertion or coughing,She states at baseline she does not use inhalers or nebulizers but yesterday she used them both with no relief.The pains are aching and radiate to both shoulders. she also complain bodyaches . Denies any new complaint of abdominal pain or fever or chills or nausea or vomiting or cough or weakness or numbness. No known sick contacts. Lab imaging EKG reviewed: Elevated WBC count 16.7, BMP seems fine, chest x-ray negative EKG also seems NSR. Troponin in 2400 range ED physician: Discuss case with cardiology: Currently plan is to trend troponin, given aspirin, continue Eliquis for now, may need to switch to IV heparin possibly in a.m. in anticipation for cardiac catheterization. Review of Systems Review of Systems: as above. 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 Father No problems noted. Brother Substance use disorder Brother Substance use disorder Surgical History History of carpal tunnel surgery History of cholecystectomy History of lobectomy of lung Status post tracheoplasty History of cardiac cath Social History Household Members: Family Household Members Other:: Lives with daughter and grandson Housing: House Do you presently have visiting nurse or other home services: Yes Alcohol intake: never Patient Tobacco Use Status: Former Tobacco user Quit Date: 1993 Smoked: 10 +/- Smoked in Last 30 Days: No e-Cigarette/Vaping Use: Never Used Use of substances other than those prescribed or required for medical reasons: No Currently Displaying Signs/Symptoms of Drug Intoxication Withdrawal: No Advance Directives: No Advance Directives Information Provided: No Do you have thoughts of harming others: None Do you have a plan to hurt others: No Plan Recently lost weight without trying: No Nutrition Risks: No Nutritional Risk Patient : No : No service: No Current occupational status: retired Cognitive needs: No Hearing needs: No Vision needs: No Meds Allergies Allergy/AdvReac Type Severity Reaction Status Date / Time Latex, Natural Rubber Allergy Severe blisters Verified 06/25/23 11:54 Sulfa (Sulfonamide Allergy Mild ITCHING, Verified 06/25/23 11:54 Antibiotics) rash [SULFA (SULFONAMIDE ANTIBIOTICS)] nystatin Allergy Unknown rash Verified 06/25/23 11:54 isosorbide [From Imdur] AdvReac Unknown HEADACHES, Verified 06/25/23 11:54 headache tizanidine AdvReac Unknown weakness, Verified 06/25/23 11:54 Hellucination Active Medications: Current Medications Albuterol/Ipratropium (Albuterol/Iprat 2.5/0.5mg 3 Ml Ampul.Neb) 3 ml INHALE RQ4H LOU Last Admin: 06/25/23 16:03 Dose: Not Given Albuterol/Ipratropium (Albuterol/Iprat 2.5/0.5mg 3 Ml Ampul.Neb) 3 ml INHALE Q3H PRN PRN Reason: sob Apixaban (Apixaban 5 Mg Tablet) 5 mg PO BID [facility] Atorvastatin Calcium (Atorvastatin Calcium 80 Mg Tablet) 80 mg PO BEDTIME LOU Dextrose (Dextrose 50 % 25 Gm/50 Ml Syringe) 25 gm IVPUSH Q15M PRN; Protocol PRN Reason: per Hypoglycemia Standing Ord. Diltiazem HCl (Diltiazem Hcl Cd 300 Mg Cap.Er.24h) 300 mg PO DAILY LOU; Protocol Empagliflozin (Empagliflozin 25 Mg Tablet) 25 mg PO DAILY [facility] Escitalopram Oxalate (Escitalopram Oxalate 20 Mg Tablet) 20 mg PO DAILY [facility] Glucose (Glucose Gel 15 Gm Gel..Gram.) 15 gm PO Q15M PRN; Protocol PRN Reason: per Hypoglycemia Standing Ord. Ceftriaxone Sodium 1 gm/ (Sodium Chloride) 50 mls @ 100 mls/hr IV DAILY [facility] Insulin Glargine (Insulin Glargine,Hum.Rec.Anlog 100 Unit/Ml 10 Ml Vial) 50 unit SUBCUT DAILY [facility] Insulin Human Lispro (Insulin Lispro 100 Unit/Ml 3 Ml Vial) 0 unit SUBCUT QIDACHS [facility]; Protocol Methylprednisolone Sodium Succinate (Methylprednisolone Sod Succ 40 Mg/Ml Vial) 40 mg IVPUSH TID [facility] Last Admin: 06/25/23 17:02 Dose: 40 mg Metoprolol Tartrate (Metoprolol Tartrate 50 Mg Tablet) 50 mg PO BID [facility]; Protocol Non-Formulary Medication (Dulaglutide [Trulicity]) 1 mg SUBCUT Q7D [facility] Last Admin: 06/25/23 17:02 Dose: Not Given Sodium Chloride (0.9 % Sodium Chloride Flush 3 Ml Syringe) 3 ml IVFLUSH QSHIFT [facility] Last Admin: 06/25/23 16:14 Dose: Not Given Home Medications Medication Instructions Recorded Confirmed Last Taken Type apixaban 5 mg tablet (Eliquis) 5 mg PO BID 09/30/21 06/25/23 10/02/21 History citalopram 40 mg tablet 20 mg PO DAILY 02/05/23 06/25/23 Unknown History dulaglutide 1.5 mg/0.5 mL 1 mg subcut Q7D 02/05/23 06/25/23 Unknown History subcutaneous pen injector (Trulicity) albuterol sulfate 2.5 mg/0.5 mL 5 mg inhalation Q6H PRN Shortness 06/25/23 06/25/23 Unknown History solution for nebulization Of Breath albuterol sulfate 90 mcg/actuation 2 puff inhalation Q4H PRN 06/25/23 06/25/23 Unknown History aerosol inhaler (ProAir HFA) Shortness Of Breath diltiazem HCl 300 mg 300 mg PO DAILY 06/25/23 06/25/23 Unknown History tablet,extended release 24 hr (Matzim [place]) doxycycline hyclate 100 mg tablet 100 mg PO BID 06/25/23 06/25/23 Unknown History insulin lispro 100 unit/mL 1 sliding scale dose subcut QIDACHS 06/25/23 06/25/23 Unknown History subcutaneous pen (Humalog KwikPen (U-100) Insulin) prednisone 10 mg tablet 30 mg PO DAILY 06/25/23 06/25/23 Unknown History Physical Exam Vital Signs and Narrative: Vital Signs: Last Vital Signs Temp 97.5 F 06/25/23 11:54 Pulse 71 06/25/23 16:32 Resp 12 06/25/23 16:32 BP 109/52 L 06/25/23 16:32 Pulse Ox 94 06/25/23 16:32 O2 Del Method Room Air 06/25/23 16:32 BMI result Body Mass Index 34.3 Appearance: Alert.? Oriented X3.? Eyes: Pupils equal, round and reactive to light.? Sclera nonicteric.? ENT: Pharynx normal.? Moist mucous membranes. cvs: rrr, [id number] . res: diminshed breath sounds ,has b/l wheezing abd: no rebound or guarding ,nt, bs present. ext pulses present , no cyanosis . neuro: axo3 , nonfocal. Results Labs 06/26/23 06:03 06/25/23 12:27 Labs: Laboratory Results - last 24 hr 06/25/23 06/25/23 06/25/23 12:27 13:26 16:35 MCV 86.8 MCH 28.1 MCHC 32.3 RDW 14.6 Plt Count 298 MPV 9.8 Immature Gran % (Auto) 0.5 H Neut % (Auto) 87.1 H Lymph % (Auto) 7.5 L [place] % (Auto) 3.4 Eos % (Auto) 1.1 Baso % (Auto) 0.4 Lymph # (Auto) 1.3 [place] # (Auto) 0.6 Eos # (Auto) 0.2 Baso # (Auto) 0.1 Abs Immat Gran (auto) 0.08 H Absolute Neuts (auto) 14.5 H Absolute Nucleated RBC 0.000 Nucleated RBC % (auto) 0.0 PT 15.3 H INR 1.3 H APTT 30.2 Anion Gap 17 Estim Creat Clear Calc 36.8 Estimated GFR 35 POC Glucose 185 H Random Glucose 104 Lactic Acid 1.4 Calcium 9.3 Magnesium 2.3 Total Bilirubin 0.4 AST 28 ALT 25 Alkaline Phosphatase 95 Total Protein 7.4 Albumin 3.9 Procalcitonin 0.05 COVID-19 (CHEMA) Negative COVID-19 Clin Com See Note Influenza Type A (PCR) NEGATIVE Influenza Type B (PCR) NEGATIVE RSV RNA Qual (PCR) NEGATIVE SARS-CoV-2 RNA (RT-PCR) NEGATIVE Imaging Radiologist's Impressions: Impressions Chest X-Ray 06/25/23 13:30 IMPRESSION: Chronic markings. No convincing evidence for an acute process. Assessment and Plan (1) Non-ST elevation PR (NSTEMI): Status: Acute (2) Acute exacerbation of chronic obstructive pulmonary disease: Status: Acute Plan 72 yo f with pmhx COPD, CKD, DM, CAD, ALYSIA, HTN, HLD, hx PE on Eliquis -came with sob and has chest tightness. 1. copd excerebation cxr neg for pneumonia sob with minimal excersion continue nebs ,steriods ,antibiotics. 2.possible nstemi : Troponins are flat in [id number] continue asa,statin ,bb ,eliquis for now ,will switch to IV heparin by tomorrow. 3. Htn: cotninue home meds 4. dm : home insulin regimen fs with coverage 5.hx of pulm embolism -continueeliquis ,may need to switch iv heparin in am. 6. sleep apnea: Continue CPAP. DVT prophylaxis: On anticoagulation. Patient has COPD exacerbation and possiblensemi will need-tele monitoring, cardiac enzyme trending and Time Spent With Patient Time: Total time managing care of this patient today ____ minutes. Quality Stroke Does the patient have a stroke diagnosis?: No VTE Prior VTE?: No VTE Risk Level:: Medical - moderate - high VTE Device Contraindication: N/A - Device Ordered VTE Drug Contraindication: N/A - Med Ordered
[2023-06-25 19:50] LABS: Glucose, Whole Blood 198 mg/dL (60-115)
[2023-06-25] MEDS: Heparin Sodium,Porcine/1/2NS 25,000 UNIT/250 ML IV.SOLN 10 UNIT IVCONT (20:24)
[2023-06-25] MEDS: Metoprolol Tartrate 50 MG TABLET PO (20:31)
[2023-06-25] MEDS: Atorvastatin Calcium 80 MG TABLET PO (20:31)
[2023-06-25] MEDS: Insulin Lispro 100 UNIT/ML 3 ML VIAL SUBCUT (20:37)
[2023-06-25] MEDS: 0.9 % Sodium Chloride Flush 3 ML SYRINGE IVFLUSH (20:38)
[2023-06-25 20:45] LABS: Glucose, Whole Blood 379 mg/dL (60-115)
[2023-06-25] MEDS: Nitroglycerin 0.4 MG TAB.SUBL SUBLINGUAL ×2 (21:15→23:46)
[2023-06-25 21:27] LABS: Hematocrit 42.6 % (37.0-47.0); Hemoglobin 13.9 g/dl (12.0-16.0); Mean Corpuscular HGB Conc 32.6 g/dl (31.0-35.0); Mean Corpuscular Hemoglobin 28.3 pg (27.0-33.0); Mean Corpuscular Volume 86.8 fL (80.0-98.0); Mean Platelet Volume 9.9 fL (9.4-12.3); Platelet Count 274 X10*3/uL (160-400); Red Blood Count 4.91 X10*6/uL (4.20-5.50); Red Cell Distribution Width 14.6 % (11.0-16.0); White Blood Count 15.7 X10*3/uL (4.8-10.8)
[2023-06-25 21:33] LABS: INTERNATIONAL NORM RATIO 1.1 (0.9-1.1); Prothrombin Time 13.6 SEC (11.1-13.3)
[2023-06-26] VITALS (13 sets, daily range): BP systolic 123–151; BP diastolic 51–69; PULSE 65–94; RESP 16–20; TEMP 36.3–37; O2SAT 92–95
[2023-06-26] MEDS: Albuterol/Iprat 2.5/0.5MG 3 ML AMPUL.NEB INHALE ×6 (00:14→23:49)
[2023-06-26] MEDS: Melatonin 3 MG TABLET 6 MG PO ×2 (02:00→21:59)
--- NOTE | 2023-06-26 06:29 | PC.NURSE ---
[id number] Nursing shift Note. Pt presents to the unit with exacerbation of COPD and elevated troponins. Pt started on Heparin protocol as ordered. POC elevated at 379, Dr. Garcia notified and provider requested only 10 Units of sliding scale insulin be given as ordered on NOV, no further orders. Pt also c/o of chest pain since arrival to ER. Refer to pain documentation. Dr. Garcia notifed and pt received 2 doses of Nitro sL to help alleviate the chest pain. First dose of Nitro SL brought pain down from a 3 to 0 at 2114 and second episode of CP nitro SL brought the pain down from a 4 to 3. notified of events, ordered the Nitro SL and after second episode of CP ordered to just monitor the patient. Later, pt did request a sleeping pill and Jose Escoto did order Melatonin for the patient to promote sleep. VSS. Pt after Melatonin did fall asleep as eyes closed and respirations regular. Awaiting cardiology input in the am.
[2023-06-26 06:36] LABS: Hemoglobin 12.9 g/dl (12.0-16.0); Mean Corpuscular HGB Conc 32.3 g/dl (31.0-35.0); Mean Corpuscular Hemoglobin 28.1 pg (27.0-33.0); Mean Corpuscular Volume 87.1 fL (80.0-98.0); Mean Platelet Volume 10.2 fL (9.4-12.3); Platelet Count 256 X10*3/uL (160-400); Red Blood Count 4.59 X10*6/uL (4.20-5.50); Red Cell Distribution Width 14.6 % (11.0-16.0); White Blood Count 11.8 X10*3/uL (4.8-10.8)
[2023-06-26 07:57] LABS: Glucose, Whole Blood 252 mg/dL (60-115)
[2023-06-26] MEDS: Escitalopram Oxalate 20 MG TABLET PO (08:31)
[2023-06-26] MEDS: dilTIAZem HCL CD 300 MG CAP.ER.24H PO (08:31)
[2023-06-26] MEDS: Metoprolol Tartrate 50 MG TABLET PO ×2 (08:31→20:21)
[2023-06-26] MEDS: Empagliflozin 25 MG TABLET PO (08:31)
[2023-06-26] MEDS: methylPREDNISolone Sod Succ 40 MG/ML VIAL IVPUSH ×2 (08:35→15:02)
[2023-06-26] MEDS: Insulin Lispro 100 UNIT/ML 3 ML VIAL SUBCUT ×4 (08:35→20:20)
[2023-06-26] MEDS: Insulin Glargine,Hum.rec.anlog 100 UNIT/ML 10 ML VIAL 50 UNIT SUBCUT (08:36)
[2023-06-26] MEDS: 0.9 % Sodium Chloride Flush 3 ML SYRINGE IVFLUSH ×3 (08:37→20:24)
[2023-06-26 09:35] LABS: PTT Heparin Drip 68.4 SEC (53-77.9)
[2023-06-26 10:09] LABS: Adenovirus PCR Not Detected (Not Detect.); Bordetella parapertussis PCR Not Detected (Not Detect.); Bordetella pertussis PCR Not Detected (Not Detect.); Chlamydia pneumoniae PCR Not Detected (Not Detect.); Coronavirus 229E PCR Not Detected (Not Detect.); Coronavirus HKU1 PCR Not Detected (Not Detect.); Coronavirus NL63 PCR Not Detected (Not Detect.); Coronavirus OC43 PCR Not Detected (Not Detect.); Human metapneumovirus PCR Not Detected (Not Detect.); Influenza A PCR Not Detected (Not Detect.); Influenza B PCR Not Detected (Not Detect.); Mycoplasma pneumoniae PCR Not Detected (Not Detect.); Parainfluenza 1 PCR Not Detected (Not Detect.); Parainfluenza 2 PCR Not Detected (Not Detect.); Parainfluenza 3 PCR Not Detected (Not Detect.); Parainfluenza 4 PCR Not Detected (Not Detect.); RSV PCR Not Detected (Not Detect.); Rhino/Enterovirus PCR Not Detected (Not Detect.)
--- NOTE | 2023-06-26 10:22 | P.CONCA_ITS ---
History of Present Illness History of Present Illness Date of Service: 06/26/23 Chief complaint: copd exacerbation, elevated trononins Narrative: This is a cardiology consultation regarding elevated troponins. Patient has multiple comorbidities including COPD, CKD, diabetes, CAD, hypertension, high lipids, history of PE on Eliquis. Presenting to the hospital with shortness of breath, productive cough, greenish phlegm, wheezing for the last few days. Chest pains radiating to both shoulders but not clear if it is something from her coughing or cardiac. In this context, she is being treated as COPD exacerbation/secondary NSTEMI. She was last seen by alen Iglesias in 2021. At that time, based on notes report of 60% RCA stenosis in cardiac catheterization 2006. Review of Systems 2 Review of Systems: Yes all other systems are reviewed and are negative Constitutional: Constitutional: Reports as per HPI and Reports no additional constitutional complaints Eyes: Eyes: Reports as per HPI and Denies no additional eye complaints ENT: Denies system reviewed and no additional complaints, except as documented and Reports as per HPI Cardiovascular: Cardiovascular: Reports as per HPI, Reports no additional cardiovascular complaints, Denies acrocyanosis, Denies cool extremities, Reports chest pain, Denies leg edema, Denies lightheadedness, Denies palpitations and Denies dyspnea Respiratory: Respiratory: Reports as per HPI, Denies no additional respiratory complaints and Denies dyspnea Gastrointestinal: Gastrointestinal: Reports as per HPI and Denies no additional gastrointestinal complaints Genitourinary: Genitourinary: Reports as per HPI Musculoskeletal: Musculoskeletal: Reports no additional musculoskeletal complaints and Reports as per HPI Integumentary/Breasts: Skin/Breast: Reports system reviewed and no additional complaints, except as docu Neurologic: Reports system reviewed and no additional complaints, except as documented and Reports as per HPI Psychiatric: Psychiatric: Reports no additional psychiatric complaints and Reports as per HPI Endocrine: Endocrine: Reports no additional endocrine complaints, Reports as per HPI and Denies palpitations Hematologic/Lymphatic: Hematologic/Lymphatic: Reports no additional hematologic/lymphatic complaints and Reports as per HPI Allergic/Immunologic: Allergic/Immunologic: Reports no additional allergic/immunologic complaints and Reports as per HPI PMF Past Medical History Medical History Pulmonary embolism Warfarin anticoagulation Obesity Dyslipidemia Hypertension CAD (coronary artery disease) prison (current) use of insulin Diabetes type 2, uncontrolled Respiratory failure Obstructive sleep apnea COPD (chronic obstructive pulmonary disease) Family History Family History Mother No problems noted. Father No problems noted. Brother Substance use disorder Brother Substance use disorder Surgical History Surgical History History of carpal tunnel surgery History of cholecystectomy History of lobectomy of lung Status post tracheoplasty History of cardiac cath Social History Social History Household Members: Family Household Members Other:: Lives with daughter and grandson Housing: House Do you presently have visiting nurse or other home services: Yes Alcohol intake: never Patient Tobacco Use Status: Former Tobacco user Quit Date: 1993 Smoked: 10 +/- Smoked in Last 30 Days: No e-Cigarette/Vaping Use: Never Used Use of substances other than those prescribed or required for medical reasons: No Currently Displaying Signs/Symptoms of Drug Intoxication Withdrawal: No Advance Directives: No Advance Directives Information Provided: No Do you have thoughts of harming others: None Do you have a plan to hurt others: No Plan Recently lost weight without trying: No Nutrition Risks: No Nutritional Risk Patient : No : No Current occupational status: retired Cognitive needs: No Hearing needs: No Vision needs: No Meds Allergies Allergy/AdvReac Type Severity Reaction Status Date / Time Latex, Natural Rubber Allergy Severe blisters Verified 06/25/23 11:54 Sulfa (Sulfonamide Allergy Mild ITCHING, Verified 06/25/23 11:54 Antibiotics) rash [SULFA (SULFONAMIDE ANTIBIOTICS)] nystatin Allergy Unknown rash Verified 06/25/23 11:54 isosorbide [From Imdur] AdvReac Unknown HEADACHES, Verified 06/25/23 11:54 headache tizanidine AdvReac Unknown weakness, Verified 06/25/23 11:54 Hellucination Active Medications: Current Medications Albuterol/Ipratropium (Albuterol/Iprat 2.5/0.5mg 3 Ml Ampul.Neb) 3 ml INHALE RQ4H [facility]OU Last Admin: 06/26/23 07:45 Dose: 3 ml Albuterol/Ipratropium (Albuterol/Iprat 2.5/0.5mg 3 Ml Ampul.Neb) 3 ml INHALE Q3H PRN PRN Reason: sob Atorvastatin Calcium (Atorvastatin Calcium 80 Mg Tablet) 80 mg PO BEDTIME [facility] [place] Last Admin: 06/25/23 20:31 Dose: 80 mg Dextrose (Dextrose 50 % 25 Gm/50 Ml Syringe) 25 gm IVPUSH Q15M PRN; Protocol PRN Reason: per Hypoglycemia Standing Ord. Diltiazem HCl (Diltiazem Hcl Cd 300 Mg Cap.Er.24h) 300 mg PO DAILY [facility] [place]; Protocol Last Admin: 06/26/23 08:31 Dose: 300 mg Empagliflozin (Empagliflozin 25 Mg Tablet) 25 mg PO DAILY [facility] Last Admin: 06/26/23 08:31 Dose: 25 mg Escitalopram Oxalate (Escitalopram Oxalate 20 Mg Tablet) 20 mg PO DAILY [facility] [place] Last Admin: 06/26/23 08:31 Dose: 20 mg Glucose (Glucose Gel 15 Gm Gel..Gram.) 15 gm PO Q15M PRN; Protocol PRN Reason: per Hypoglycemia Standing Ord. Guaifenesin/Codeine Phosphate (Guaifen/Codeine Sf 200/20/10ml 10 Ml Liquid) 10 ml PO Q4H PRN PRN Reason: Cough Heparin Sodium (Porcine) (Heparin Sodium,Porcine 5,000 Unit/Ml Vial) 3,800 unit 40 unit/kg (3800 unit) IVPUSH PROTOCOL BOLUS PRN; Protocol PRN Reason: 40 unit/kg - Heparin Protocol Heparin Sodium (Porcine) (Heparin Sodium,Porcine 5,000 Unit/Ml Vial) 7,600 unit 80 unit/kg (7600 unit) IVPUSH PROTOCOL BOLUS PRN; Protocol PRN Reason: 80 unit/kg - Heparin Protocol Ceftriaxone Sodium 1 gm/ (Sodium Chloride) 50 mls @ 100 mls/hr IV DAILY [facility] Heparin Sodium/Sodium Chloride (Heparin Sodium,Porcine/1/2ns) 25,000 unit in 250 mls @ 0 mls/hr IVCONT .Q0M [facility]; Protocol Last Titration: 06/26/23 09:59 Dose: 8.59 units/kg/hr, 8.11 mls/hr Sodium Chloride (Ns) 1,000 mls @ 80 mls/hr IVCONT .[id number] [facility] Insulin Glargine (Insulin Glargine,Hum.Rec.Anlog 100 Unit/Ml 10 Ml Vial) 50 unit SUBCUT DAILY [facility] [place] Last Admin: 06/26/23 08:36 Dose: 50 unit Insulin Human Lispro (Insulin Lispro 100 Unit/Ml 3 Ml Vial) 0 unit SUBCUT QIDACHS [facility] [place]; Protocol Last Admin: 06/26/23 08:35 Dose: 6 unit Loratadine (Loratadine 10 Mg Tablet) 10 mg PO DAILY [facility] [place] Melatonin (Melatonin 3 Mg Tablet) 6 mg PO BEDTIME PRN PRN Reason: Insomnia Last Admin: 06/26/23 02:00 Dose: 6 mg Methylprednisolone Sodium Succinate (Methylprednisolone Sod Succ 40 Mg/Ml Vial) 40 mg IVPUSH TID [facility] [place] Last Admin: 06/26/23 08:35 Dose: 40 mg Metoprolol Tartrate (Metoprolol Tartrate 50 Mg Tablet) 50 mg PO BID [facility]; Protocol Last Admin: 06/26/23 08:31 Dose: 50 mg Nitroglycerin (Nitroglycerin 0.4 Mg Tab.Subl) 0.4 mg SUBLINGUAL Q5MX3 PRN PRN Reason: Chest Pain Last Admin: 06/25/23 23:46 Dose: 0.4 mg Non-Formulary Medication (Dulaglutide [Trulicity]) 1 mg SUBCUT Q7D [facility] [place] Last Admin: 06/25/23 17:02 Dose: Not Given Sodium Chloride (0.9 % Sodium Chloride Flush 3 Ml Syringe) 3 ml IVFLUSH QSHIFT [facility] Last Admin: 06/26/23 08:37 Dose: 3 ml Home Medications Medication Instructions Recorded Confirmed Last Taken Type apixaban 5 mg tablet (Eliquis) 5 mg PO BID 09/30/21 06/25/23 10/02/21 History citalopram 40 mg tablet 20 mg PO DAILY 02/05/23 06/25/23 Unknown History dulaglutide 1.5 mg/0.5 mL 1 mg subcut Q7D 02/05/23 06/25/23 Unknown History subcutaneous pen injector (Trulicity) albuterol sulfate 2.5 mg/0.5 mL 5 mg inhalation Q6H PRN Shortness 06/25/23 06/25/23 Unknown History solution for nebulization Of Breath albuterol sulfate 90 mcg/actuation 2 puff inhalation Q4H PRN 06/25/23 06/25/23 Unknown History aerosol inhaler (ProAir HFA) Shortness Of Breath diltiazem HCl 300 mg 300 mg PO DAILY 06/25/23 06/25/23 Unknown History tablet,extended release 24 hr (Matzim [place]) doxycycline hyclate 100 mg tablet 100 mg PO BID 06/25/23 06/25/23 Unknown History insulin lispro 100 unit/mL 1 sliding scale dose subcut QIDACHS 06/25/23 06/25/23 Unknown History subcutaneous pen (Humalog KwikPen (U-100) Insulin) prednisone 10 mg tablet 30 mg PO DAILY 06/25/23 06/25/23 Unknown History Physical Exam 2 Vital Signs: Vital Signs: Last Vital Signs Temp 98.1 F 06/26/23 07:44 Pulse 79 06/26/23 07:46 Resp 16 06/26/23 07:46 BP 129/65 06/26/23 07:44 Pulse Ox 94 06/26/23 07:44 O2 Del Method Room Air 06/26/23 07:44 BMI result Body Mass Index 35.7 Const: General: comfortable and no acute distress O rientation/consciousness: patient oriented x3 HEENT: Other: Unremarkable Head: Yes normal to inspection Neck: Neck: Yes normal visual inspection Chest: Chest palpation & inspection: normal inspection of the chest Resp: Auscultation: clear to auscultation bilaterally Cardio: Palpation: normal PMI Heart sounds: S1 normal heart sound present, S2 normal heart sound present, no gallops, no murmurs and no rubs GI: Palpation (GI): Soft to palpation Back/Spine/Pelvis: Other: unremarkable Skin: General skin exam: no rashes or lesions noted Neuro: General: patient oriented x3 Extrem: General: Yes normal to inspection Psych: Mental Status: mental status grossly normal Objective Labs and Meds 06/26/23 06:03 06/25/23 12:27 Lab results: Laboratory Results - last 24 hr 06/25/23 06/25/23 06/25/23 12:27 13:26 16:25 WBC 16.7 H RBC 5.06 Hgb 14.2 Hct 43.9 MCV 86.8 MCH 28.1 MCHC 32.3 RDW 14.6 Plt Count 298 MPV 9.8 Immature Gran % (Auto) 0.5 H Neut % (Auto) 87.1 H Lymph % (Auto) 7.5 L Coke % (Auto) 3.4 Eos % (Auto) 1.1 Baso % (Auto) 0.4 Lymph # (Auto) 1.3 Coke # (Auto) 0.6 Eos # (Auto) 0.2 Baso # (Auto) 0.1 Abs Immat Gran (auto) 0.08 H Absolute Neuts (auto) 14.5 H Absolute Nucleated RBC 0.000 Nucleated RBC % (auto) 0.0 PT 15.3 H INR 1.3 H APTT 30.2 aPTT Heparin Protocol Sodium 137 Potassium 5.1 Chloride 104 Carbon Dioxide 21 L Anion Gap 17 BUN 46 H Creatinine 1.46 H Estim Creat Clear Calc 36.8 Estimated GFR 35 POC Glucose Random Glucose 104 Lactic Acid 1.4 Calcium 9.3 Magnesium 2.3 Total Bilirubin 0.4 AST 28 ALT 25 Alkaline Phosphatase 95 Troponin I High Sens 2476.1 H* D 2372.5 H* Total Protein 7.4 Albumin 3.9 Procalcitonin 0.05 COVID-19 ([facility]MA) Negative COVID-19 Clin Com See Note Influenza Type A (PCR) NEGATIVE Influenza Type B (PCR) NEGATIVE RSV RNA Qual (PCR) NEGATIVE SARS-CoV-2 RNA (RT-PCR) NEGATIVE 06/25/23 06/25/23 06/25/23 16:35 18:57 20:31 WBC RBC Hgb Hct MCV MCH MCHC RDW Plt Count MPV Immature Gran % (Auto) Neut % (Auto) Lymph % (Auto) Coke % (Auto) Eos % (Auto) Baso % (Auto) Lymph # (Auto) Coke # (Auto) Eos # (Auto) Baso # (Auto) Abs Immat Gran (auto) Absolute Neuts (auto) Absolute Nucleated RBC Nucleated RBC % (auto) PT INR APTT aPTT Heparin Protocol Sodium Potassium Chloride Carbon Dioxide Anion Gap BUN Creatinine Estim Creat Clear Calc Estimated GFR POC Glucose 185 H 198 H 379 H* Random Glucose Lactic Acid Calcium Magnesium Total Bilirubin AST ALT Alkaline Phosphatase Troponin I High Sens Total Protein Albumin Procalcitonin COVID-19 ([facility]) COVID-19 Clin Com Influenza Type A (PCR) Influenza Type B (PCR) RSV RNA Qual (PCR) SARS-CoV-2 RNA (RT-PCR) 06/25/23 06/26/23 06/26/23 21:20 02:32 06:03 WBC 15.7 H 11.8 H RBC 4.91 4.59 Hgb 13.9 12.9 Hct 42.6 40.0 MCV 86.8 87.1 MCH 28.3 28.1 MCHC 32.6 32.3 RDW 14.6 14.6 Plt Count 274 256 MPV 9.9 10.2 Immature Gran % (Auto) Neut % (Auto) Lymph % (Auto) Coke % (Auto) Eos % (Auto) Baso % (Auto) Lymph # (Auto) Coke # (Auto) Eos # (Auto) Baso # (Auto) Abs Immat Gran (auto) Absolute Neuts (auto) Absolute Nucleated RBC 0.000 0.000 Nucleated RBC % (auto) 0.0 0.0 PT 13.6 H INR 1.1 APTT aPTT Heparin Protocol 38.0 L 79.0 H D Sodium Potassium Chloride Carbon Dioxide Anion Gap BUN Creatinine Estim Creat Clear Calc Estimated GFR POC Glucose Random Glucose Lactic Acid Calcium Magnesium Total Bilirubin AST ALT Alkaline Phosphatase Troponin I High Sens Total Protein Albumin Procalcitonin COVID-19 ([facility]) COVID-19 Clin Com Influenza Type A (PCR) Influenza Type B (PCR) RSV RNA Qual (PCR) SARS-CoV-2 RNA (RT-PCR) 06/26/23 06/26/23 07:44 09:17 WBC RBC Hgb Hct MCV MCH MCHC RDW Plt Count MPV Immature Gran % (Auto) Neut % (Auto) Lymph % (Auto) Coke % (Auto) Eos % (Auto) Baso % (Auto) Lymph # (Auto) Coke # (Auto) Eos # (Auto) Baso # (Auto) Abs Immat Gran (auto) Absolute Neuts (auto) Absolute Nucleated RBC Nucleated RBC % (auto) PT INR APTT aPTT Heparin Protocol 68.4 Sodium Potassium Chloride Carbon Dioxide Anion Gap BUN Creatinine Estim Creat Clear Calc Estimated GFR POC Glucose 252 H Random Glucose Lactic Acid Calcium Magnesium Total Bilirubin AST ALT Alkaline Phosphatase Troponin I High Sens Total Protein Albumin Procalcitonin COVID-19 ([facility]) COVID-19 Clin Com Influenza Type A (PCR) Influenza Type B (PCR) RSV RNA Qual (PCR) SARS-CoV-2 RNA (RT-PCR) ECG Interpretation: EKG with sinus rhythm at 71/Min; no significant ST-T changes and otherwise unremarkable. Normal HI and corrected QT. Imaging Radiologist's impression: Impressions Chest X-Ray 06/25/23 13:30 IMPRESSION: Chronic markings. No convincing evidence for an acute process. Assessment and Plan (1) Non-ST elevation [place] (NSTEMI): Status: Acute (2) Acute exacerbation of chronic obstructive pulmonary disease: Status: Acute (3) CKD stage 3 due to type 2 diabetes mellitus: Status: Acute Plan High sensitivity troponin levels are 2476 followed by 2372. EKG is not showing any acute changes. She does get chest pain radiating to both shoulders but not clear if it is pleuritic pain or cardiac pain. Echocardiogram will be reviewed. Overall, numerous factors and clear elevation of troponins. Recommend diagnostic catheterization early next week. We can stop the Eliquis and switch her to IV heparin. Aspirin, high-dose statins and beta-blockers. Also give some fluids due to elevated creatinine. Discussed with daughter at bedside. Time Spent With Patient Time: Total time managing care of this patient today ____ minutes. Procedures Date of Service Date of Service: 06/26/23
[2023-06-26 11:29] LABS: SARS-CoV-2 PCR Not Detected (Not Detect.)
[2023-06-26] MEDS: 0.9 % Sodium Chloride 1,000 ML 80 ML IVCONT ×2 (11:38→23:20)
[2023-06-26] MEDS: Loratadine 10 MG TABLET PO (11:38)
--- NOTE | 2023-06-26 11:39 | MHC.CM.PN ---
IMM 06/26. Pt lives with her daughter and grandson, and is self-care and has [facility] MD/RN visits intermittently (no set schedule more on an as needed basis). Per MD pt is being medically transferred to [facility] for a higher level of care. New HCP completed with pt and on file. PCP: Dr. Amanda Leiva
[2023-06-26 11:42] LABS: Glucose, Whole Blood 353 mg/dL (60-115)
[2023-06-26] MEDS: cefTRIAXone sodium 1 GM in 0.9 % Sodium Chloride 50 ML IV (15:02)
[2023-06-26] MEDS: guaiFEN/Codeine SF 200/20/10ML 10 ML LIQUID PO ×2 (15:02→21:41)
--- NOTE | 2023-06-26 15:43 | HO.PM.IMPN ---
Subjective Subjective Date of Service: 06/26/23 Interval History: nsetmi Review of Systems sob seems improving ,has aggressive cough chest/shoulder pain seems improved,no fevers Physical Exam Vital Signs: Vital Signs: Last Vital Signs Temp 98.6 F 06/26/23 15:02 Pulse 74 06/26/23 15:02 Resp 18 06/26/23 15:02 BP 151/69 H 06/26/23 15:02 Pulse Ox 95 06/26/23 15:02 O2 Del Method Room Air 06/26/23 15:02 BMI result Body Mass Index 35.7 Appearance: Alert.? Oriented X3. cvs: rrr, [id number] . res: diminshed breath sounds ,has b/l wheezing abd: no rebound or guarding ,nt, bs present. ext pulses present , no cyanosis . neuro: axo3 , nonfocal. Objective Data Active Medications Albuterol/Ipratropium (Albuterol/Iprat 2.5/0.5mg 3 Ml Ampul.Neb) 3 ml INHALE RQ4H [facility] Last Admin: 06/26/23 12:31 Dose: 3 ml Documented By: CINDY Albuterol/Ipratropium (Albuterol/Iprat 2.5/0.5mg 3 Ml Ampul.Neb) 3 ml INHALE Q3H PRN PRN Reason: sob Aspirin (Aspirin Enteric Coated 81 Mg Tablet.Dr) 81 mg PO DAILY [facility] Atorvastatin Calcium (Atorvastatin Calcium 80 Mg Tablet) 80 mg PO BEDTIME [facility] Last Admin: 06/25/23 20:31 Dose: 80 mg Documented By: JORGE Dextrose (Dextrose 50 % 25 Gm/50 Ml Syringe) 25 gm IVPUSH Q15M PRN; Protocol PRN Reason: per Hypoglycemia Standing Ord. Diltiazem HCl (Diltiazem Hcl Cd 300 Mg Cap.Er.24h) 300 mg PO DAILY [facility]; Protocol Last Admin: 06/26/23 08:31 Dose: 300 mg Documented By: LINDY Empagliflozin (Empagliflozin 25 Mg Tablet) 25 mg PO DAILY [facility] Last Admin: 06/26/23 08:31 Dose: 25 mg Documented By: LINDY Escitalopram Oxalate (Escitalopram Oxalate 20 Mg Tablet) 20 mg PO DAILY [facility] Last Admin: 06/26/23 08:31 Dose: 20 mg Documented By: LINDY Glucose (Glucose Gel 15 Gm Gel..Gram.) 15 gm PO Q15M PRN; Protocol PRN Reason: per Hypoglycemia Standing Ord. Guaifenesin/Codeine Phosphate (Guaifen/Codeine Sf 200/20/10ml 10 Ml Liquid) 10 ml PO Q4H PRN PRN Reason: Cough Last Admin: 06/26/23 15:02 Dose: 10 ml Documented By: LINDY Heparin Sodium (Porcine) (Heparin Sodium,Porcine 5,000 Unit/Ml Vial) 3,800 unit 40 unit/kg (3800 unit) IVPUSH PROTOCOL BOLUS PRN; Protocol PRN Reason: 40 unit/kg - Heparin Protocol Heparin Sodium (Porcine) (Heparin Sodium,Porcine 5,000 Unit/Ml Vial) 7,600 unit 80 unit/kg (7600 unit) IVPUSH PROTOCOL BOLUS PRN; Protocol PRN Reason: 80 unit/kg - Heparin Protocol Ceftriaxone Sodium 1 gm/ (Sodium Chloride) 50 mls @ 100 mls/hr IV DAILY [facility] Last Infusion: 06/26/23 15:41 Dose: Infused Documented By: LINDY Heparin Sodium/Sodium Chloride (Heparin Sodium,Porcine/1/2ns) 25,000 unit in 250 mls @ 0 mls/hr IVCONT .Q0M [facility]; Protocol Last Titration: 06/26/23 09:59 Dose: 8.59 units/kg/hr, 8.11 mls/hr Documented By: LINDY Co-signed By: ISAAC Sodium Chloride (Ns) 1,000 mls @ 80 mls/hr IVCONT .[id number] [facility] Last Admin: 06/26/23 11:38 Dose: 80 mls/hr Documented By: LINDY Insulin Glargine (Insulin Glargine,Hum.Rec.Anlog 100 Unit/Ml 10 Ml Vial) 50 unit SUBCUT DAILY [facility] Last Admin: 06/26/23 08:36 Dose: 50 unit Documented By: LINDY Insulin Human Lispro (Insulin Lispro 100 Unit/Ml 3 Ml Vial) 0 unit SUBCUT QIDACHS [facility]; Protocol Last Admin: 06/26/23 11:50 Dose: 10 unit Documented By: LINDY Loratadine (Loratadine 10 Mg Tablet) 10 mg PO DAILY [facility] Last Admin: 06/26/23 11:38 Dose: 10 mg Documented By: LINDY Melatonin (Melatonin 3 Mg Tablet) 6 mg PO BEDTIME PRN PRN Reason: Insomnia Last Admin: 06/26/23 02:00 Dose: 6 mg Documented By: JORGE Methylprednisolone Sodium Succinate (Methylprednisolone Sod Succ 40 Mg/Ml Vial) 40 mg IVPUSH DAILY [facility] Metoprolol Tartrate (Metoprolol Tartrate 50 Mg Tablet) 50 mg PO BID [facility]; Protocol Last Admin: 06/26/23 08:31 Dose: 50 mg Documented By: LINDY Nitroglycerin (Nitroglycerin 0.4 Mg Tab.Subl) 0.4 mg SUBLINGUAL Q5MX3 PRN PRN Reason: Chest Pain Last Admin: 06/25/23 23:46 Dose: 0.4 mg Documented By: JORGE Non-Formulary Medication (Dulaglutide [Trulicity]) 1 mg SUBCUT Q7D [facility] Last Admin: 06/25/23 17:02 Dose: Not Given Documented By: EDWIN Non-Admin Reason: Med Not Available Sodium Chloride (0.9 % Sodium Chloride Flush 3 Ml Syringe) 3 ml IVFLUSH QSHIFT [facility] Last Admin: 06/26/23 15:03 Dose: 3 ml Documented By: LINDY Labs 06/26/23 06:03 06/25/23 12:27 Labs: Laboratory Results - last 24 hr 06/25/23 06/25/23 06/25/23 16:35 17:45 18:57 MCV MCH MCHC RDW Plt Count MPV Absolute Nucleated RBC Nucleated RBC % (auto) PT INR aPTT Heparin Protocol POC Glucose 185 H 198 H Respiratory Panel [place] See Note Adenovirus (Rapid PCR) Not Detected B.pert (TEM-PCR) Not Detected B.parapertussis DNA PCR Not Detected C. pneumoniae DNA (PCR) Not Detected Coronavirus OC43 (PCR) Not Detected Coronavirus HKU1 (PCR) Not Detected Coronavirus 229E (PCR) Not Detected Coronavirus NL63 (PCR) Not Detected Human Metapneumovir PCR Not Detected Influenza A (RT-PCR) Not Detected Influenza B (RT-PCR) Not Detected M. pneumoniae (PCR) Not Detected Parainfluenza 1 (PCR) Not Detected Parainfluenza 2 (PCR) Not Detected Parainfluenza 3 (PCR) Not Detected Parainfluenza 4 (PCR) Not Detected RSV (PCR) Not Detected Entero/Rhino (PCR) Not Detected SARS-CoV-2 RNA (RT-PCR) Not Detected 06/25/23 06/25/23 06/26/23 20:31 21:20 02:32 MCV 86.8 MCH 28.3 MCHC 32.6 RDW 14.6 Plt Count 274 MPV 9.9 Absolute Nucleated RBC 0.000 Nucleated RBC % (auto) 0.0 PT 13.6 H INR 1.1 aPTT Heparin Protocol 38.0 L 79.0 H D POC Glucose 379 H* Respiratory Panel [place] Adenovirus (Rapid PCR) B.pert (TEM-PCR) B.parapertussis DNA PCR C. pneumoniae DNA (PCR) Coronavirus OC43 (PCR) Coronavirus HKU1 (PCR) Coronavirus 229E (PCR) Coronavirus NL63 (PCR) Human Metapneumovir PCR Influenza A (RT-PCR) Influenza B (RT-PCR) M. pneumoniae (PCR) Parainfluenza 1 (PCR) Parainfluenza 2 (PCR) Parainfluenza 3 (PCR) Parainfluenza 4 (PCR) RSV (PCR) Entero/Rhino (PCR) SARS-CoV-2 RNA (RT-PCR) 06/26/23 06/26/23 06/26/23 06:03 07:44 09:17 MCV 87.1 MCH 28.1 MCHC 32.3 RDW 14.6 Plt Count 256 MPV 10.2 Absolute Nucleated RBC 0.000 Nucleated RBC % (auto) 0.0 PT INR aPTT Heparin Protocol 68.4 POC Glucose 252 H Respiratory Panel [place] Adenovirus (Rapid PCR) B.pert (TEM-PCR) B.parapertussis DNA PCR C. pneumoniae DNA (PCR) Coronavirus OC43 (PCR) Coronavirus HKU1 (PCR) Coronavirus 229E (PCR) Coronavirus NL63 (PCR) Human Metapneumovir PCR Influenza A (RT-PCR) Influenza B (RT-PCR) M. pneumoniae (PCR) Parainfluenza 1 (PCR) Parainfluenza 2 (PCR) Parainfluenza 3 (PCR) Parainfluenza 4 (PCR) RSV (PCR) Entero/Rhino (PCR) SARS-CoV-2 RNA (RT-PCR) 06/26/23 11:39 MCV MCH MCHC RDW Plt Count MPV Absolute Nucleated RBC Nucleated RBC % (auto) PT INR aPTT Heparin Protocol POC Glucose 353 H* Respiratory Panel [place] Adenovirus (Rapid PCR) B.pert (TEM-PCR) B.parapertussis DNA PCR C. pneumoniae DNA (PCR) Coronavirus OC43 (PCR) Coronavirus HKU1 (PCR) Coronavirus 229E (PCR) Coronavirus NL63 (PCR) Human Metapneumovir PCR Influenza A (RT-PCR) Influenza B (RT-PCR) M. pneumoniae (PCR) Parainfluenza 1 (PCR) Parainfluenza 2 (PCR) Parainfluenza 3 (PCR) Parainfluenza 4 (PCR) RSV (PCR) Entero/Rhino (PCR) SARS-CoV-2 RNA (RT-PCR) Microbiology Microbiology Results: Microbiology 06/25/23 13:26 Blood Culture - Preliminary Blood - Venous No growth after 24 hours. 06/25/23 12:27 Blood Culture - Preliminary Blood - Venous No growth after 24 hours. Assessment and Plan (1) Non-ST elevation [place] (NSTEMI): Status: Acute (2) Acute exacerbation of chronic obstructive pulmonary disease: Status: Acute Plan 72 yo f with pmhx COPD, CKD, DM, CAD, ALYSIA, HTN, HLD, hx PE on Eliquis -came with sob and has chest tightness. 1. copd excerebation cxr neg for pneumonia sob with minimal excersion continue nebs ,taper steriods ,antibiotics. 2.possible nstemi : Troponins are flat in [id number] continue asa,statin ,bb ,eliquis for now , IV heparin and pt/ptt monitering. 3. Htn: cotninue home meds 4. dm : home insulin regimen fs with coverage 5.hx of pulm embolism -continueeliquis ,may need to switch iv heparin in am. 6. sleep apnea: Continue CPAP. DVT prophylaxis: On anticoagulation. Patient has COPD exacerbation and possible nstemi will need-in heparin and pt/ptt monitering. Time Spent With Patient Time: Total time managing care of this patient today ____ minutes. Quality Stroke Does the patient have a stroke diagnosis?: No VTE Prior VTE?: No VTE Risk Level:: Medical - moderate - high VTE Device Contraindication: N/A - Device Ordered VTE Drug Contraindication: N/A - Med Ordered
[2023-06-26 15:52] LABS: PTT Heparin Drip 53.8 SEC (53-77.9)
[2023-06-26] MEDS: Aspirin Enteric Coated 81 MG TABLET.DR PO (15:56)
[2023-06-26 16:33] LABS: Glucose, Whole Blood 343 mg/dL (60-115)
[2023-06-26 20:18] LABS: Glucose, Whole Blood 304 mg/dL (60-115)
[2023-06-26] MEDS: Atorvastatin Calcium 80 MG TABLET PO (20:21)
[2023-06-26] MEDS: Heparin Sodium,Porcine/1/2NS 25,000 UNIT/250 ML IV.SOLN 8.11 UNIT IVCONT (21:42)
[2023-06-27] VITALS (14 sets, daily range): BP systolic 112–153; BP diastolic 29–76; PULSE 76–94; RESP 16–24; TEMP 36.1–37.1; O2SAT 92–97
[2023-06-27] MEDS: Magnesium Hydrox/Alum Hydrox 30 ML ORAL.SUSP PO ×2 (03:04→16:44)
[2023-06-27 07:50] LABS: Glucose, Whole Blood 197 mg/dL (60-115)
[2023-06-27] MEDS: Albuterol/Iprat 2.5/0.5MG 3 ML AMPUL.NEB INHALE ×6 (07:55→22:07)
[2023-06-27] MEDS: cefTRIAXone sodium 1 GM in 0.9 % Sodium Chloride 50 ML IV (08:14)
[2023-06-27] MEDS: Insulin Lispro 100 UNIT/ML 3 ML VIAL SUBCUT ×4 (08:15→21:56)
[2023-06-27] MEDS: dilTIAZem HCL CD 300 MG CAP.ER.24H PO (08:15)
[2023-06-27] MEDS: Empagliflozin 25 MG TABLET PO (08:15)
[2023-06-27] MEDS: Aspirin Enteric Coated 81 MG TABLET.DR PO (08:15)
[2023-06-27] MEDS: Metoprolol Tartrate 50 MG TABLET PO (08:15)
[2023-06-27] MEDS: Loratadine 10 MG TABLET PO (08:15)
[2023-06-27 08:16] LABS: PTT Heparin Drip 64.3 SEC (53-77.9)
[2023-06-27] MEDS: Insulin Glargine,Hum.rec.anlog 100 UNIT/ML 10 ML VIAL 50 UNIT SUBCUT (08:16)
[2023-06-27] MEDS: 0.9 % Sodium Chloride Flush 3 ML SYRINGE IVFLUSH (08:17)
[2023-06-27] MEDS: Escitalopram Oxalate 20 MG TABLET PO (08:28)
[2023-06-27 08:44] LABS: Anion Gap 18 (12-20); Blood Urea Nitrogen 46 mg/dL (9-16); Calcium 8.4 mg/dL (8.4-10.2); Carbon Dioxide 19 mmol/L (22-29); Chloride 107 mmol/L (96-108); Creatinine Clr Calc Pharmacy 36.9; Estimated Glomerular Filt Rate 34; Glucose Random 213 mg/dL (60-115); Potassium 3.9 mmol/L (3.3-5.1); Sodium 140 mmol/L (135-145)
[2023-06-27] MEDS: predniSONE 20 MG TABLET PO (10:12)
[2023-06-27] MEDS: 0.9 % Sodium Chloride 1,000 ML 80 ML IVCONT (10:13)
--- NOTE | 2023-06-27 10:34 | PM.PNCARD ---
Subjective Subjective Date of Service: 06/27/23 Interval history: Some shortness of breath still present but not having any active chest pains. Review of Systems Review of Systems Yes all other systems are reviewed and are negative Constitutional: Reports as per HPI and Reports no additional constitutional complaints Eyes: Reports as per HPI and Denies no additional eye complaints Denies system reviewed and no additional complaints, except as documented and Reports as per HPI Cardiovascular: Reports as per HPI, Reports no additional cardiovascular complaints, Denies acrocyanosis, Denies cool extremities, Denies chest pain, Denies leg edema, Denies lightheadedness, Denies palpitations and Reports dyspnea Respiratory: Reports as per HPI, Denies no additional respiratory complaints and Reports dyspnea Gastrointestinal: Reports as per HPI and Denies no additional gastrointestinal complaints Musculoskeletal: Reports no additional musculoskeletal complaints and Reports as per HPI Skin/Breast: Reports system reviewed and no additional complaints, except as docu Reports system reviewed and no additional complaints, except as documented and Reports as per HPI Psychiatric: Reports no additional psychiatric complaints and Reports as per HPI Endocrine: Reports no additional endocrine complaints, Reports as per HPI and Denies palpitations Hematologic/Lymphatic: Reports no additional hematologic/lymphatic complaints and Reports as per HPI Allergic/Immunologic: Reports no additional allergic/immunologic complaints and Reports as per HPI Physical Exam Vital Signs: Last Vital Signs Temp 97.0 F 06/27/23 07:15 Pulse 80 06/27/23 07:55 Resp 16 06/27/23 07:55 BP 145/76 H 06/27/23 07:15 Pulse Ox 94 06/27/23 07:15 O2 Del Method Room Air 06/27/23 07:15 BMI result Body Mass Index 35.7 Const General: comfortable and no acute distress Orientation/consciousness: patient oriented x3 HEENT Other: Unremarkable Head: Yes normal to inspection Neck Neck: Yes normal visual inspection Chest Chest palpation & inspection: normal inspection of the chest Resp Auscultation: rhonchi and diminished lung sounds Cardio Palpation: normal PMI Heart sounds: S1 normal heart sound present, S2 normal heart sound present, no gallops, no murmurs and no rubs GI Palpation (GI): Soft to palpation Back/Spine/Pelvis Other: unremarkable Skin General skin exam: no rashes or lesions noted Neuro General: patient oriented x3 Extrem General: Yes normal to inspection Psych Mental Status: mental status grossly normal Objective Labs and Meds 06/26/23 06:03 06/27/23 08:02 Lab results: Laboratory Results - last 24 hr 06/25/23 06/26/23 06/26/23 17:45 11:39 15:27 aPTT Heparin Protocol 53.8 D Sodium Potassium Chloride Carbon Dioxide Anion Gap BUN Creatinine Estim Creat Clear Calc Estimated GFR POC Glucose 353 H* Random Glucose Calcium Respiratory Panel Mohr See Note Adenovirus (Rapid PCR) Not Detected B.pert (TEM-PCR) Not Detected B.parapertussis DNA PCR Not Detected C. pneumoniae DNA (PCR) Not Detected Coronavirus OC43 (PCR) Not Detected Coronavirus HKU1 (PCR) Not Detected Coronavirus 229E (PCR) Not Detected Coronavirus NL63 (PCR) Not Detected Human Metapneumovir PCR Not Detected Influenza A (RT-PCR) Not Detected Influenza B (RT-PCR) Not Detected M. pneumoniae (PCR) Not Detected Parainfluenza 1 (PCR) Not Detected Parainfluenza 2 (PCR) Not Detected Parainfluenza 3 (PCR) Not Detected Parainfluenza 4 (PCR) Not Detected RSV (PCR) Not Detected Entero/Rhino (PCR) Not Detected SARS-CoV-2 RNA (RT-PCR) Not Detected 06/26/23 06/26/23 06/27/23 16:21 20:13 07:16 aPTT Heparin Protocol Sodium Potassium Chloride Carbon Dioxide Anion Gap BUN Creatinine Estim Creat Clear Calc Estimated GFR POC Glucose 343 H 304 H 197 H Random Glucose Calcium Respiratory Panel Mohr Adenovirus (Rapid PCR) B.pert (TEM-PCR) B.parapertussis DNA PCR C. pneumoniae DNA (PCR) Coronavirus OC43 (PCR) Coronavirus HKU1 (PCR) Coronavirus 229E (PCR) Coronavirus NL63 (PCR) Human Metapneumovir PCR Influenza A (RT-PCR) Influenza B (RT-PCR) M. pneumoniae (PCR) Parainfluenza 1 (PCR) Parainfluenza 2 (PCR) Parainfluenza 3 (PCR) Parainfluenza 4 (PCR) RSV (PCR) Entero/Rhino (PCR) SARS-CoV-2 RNA (RT-PCR) 06/27/23 08:02 aPTT Heparin Protocol 64.3 Sodium 140 Potassium 3.9 D Chloride 107 Carbon Dioxide 19 L Anion Gap 18 BUN 46 H Creatinine 1.49 H Estim Creat Clear Calc 36.9 Estimated GFR 34 POC Glucose Random Glucose 213 H Calcium 8.4 D Respiratory Panel Mohr Adenovirus (Rapid PCR) B.pert (TEM-PCR) B.parapertussis DNA PCR C. pneumoniae DNA (PCR) Coronavirus OC43 (PCR) Coronavirus HKU1 (PCR) Coronavirus 229E (PCR) Coronavirus NL63 (PCR) Human Metapneumovir PCR Influenza A (RT-PCR) Influenza B (RT-PCR) M. pneumoniae (PCR) Parainfluenza 1 (PCR) Parainfluenza 2 (PCR) Parainfluenza 3 (PCR) Parainfluenza 4 (PCR) RSV (PCR) Entero/Rhino (PCR) SARS-CoV-2 RNA (RT-PCR) Progress Note: A&P Assessment and plan (1) Non-ST elevation [place] (NSTEMI): Status: Acute (2) Acute exacerbation of chronic obstructive pulmonary disease: Status: Acute (3) CKD stage 3 due to type 2 diabetes mellitus: Status: Acute Plan High sensitivity troponin levels are 2476 followed by 2372. EKG is not showing any acute changes. Serum creatinine levels are 1.46 and 1.49. Baseline is 1.21 prior to this admission. BUN is 46. Prior to this, 23. Echocardiogram with LVEF of 68%. Severe LVH. Moderate diastolic dysfunction. Mild aortic stenosis. She does get chest pain radiating to both shoulders but not clear if it is pleuritic pain or cardiac pain. Today, has not had any further pain. Overall, NSTEMI in the setting of COPD exacerbation. Was initially planning to transfer to [facility] today for cardiac catheterization but due to increase in BUN/creatinine, suggest hydration and ensured stable for transfer. Otherwise, Eliquis on hold and she is on IV heparin. Aspirin, high-dose statins, beta-blockers. Discussed with Dr. Millard. Time Spent With Patient Time: Total time managing care of this patient today ____ minutes. Progress Note: Quality Stroke Does the patient have a stroke diagnosis?: No Procedures Date of Service Date of Service: 06/27/23
[2023-06-27 11:09] LABS: Glucose, Whole Blood 257 mg/dL (60-115)
--- NOTE | 2023-06-27 14:20 | HO.PM.IMPN ---
Subjective Subjective Date of Service: 06/27/23 Interval History: feeling better today daughter at bedside Review of Systems denies any chest pain sob improving denies any nausea or vomiting of fevers Physical Exam Vital Signs: Vital Signs: Last Vital Signs Temp 98.4 F 06/27/23 10:58 Pulse 76 06/27/23 11:20 Resp 18 06/27/23 11:20 BP 131/62 06/27/23 10:58 Pulse Ox 95 06/27/23 10:58 O2 Del Method Room Air 06/27/23 10:58 BMI result Body Mass Index 35.7 Appearance: Alert.? Oriented X3. cvs: rrr, [id number] . res: diminshed breath sounds ,has b/l wheezing abd: no rebound or guarding ,nt, bs present. ext pulses present , no cyanosis . neuro: axo3 , nonfocal. Objective Data Active Medications Albuterol/Ipratropium (Albuterol/Iprat 2.5/0.5mg 3 Ml Ampul.Neb) 3 ml INHALE RQ4H [facility] Last Admin: 06/27/23 11:19 Dose: 3 ml Documented By: CINDY Albuterol/Ipratropium (Albuterol/Iprat 2.5/0.5mg 3 Ml Ampul.Neb) 3 ml INHALE Q3H PRN PRN Reason: sob Aspirin (Aspirin Enteric Coated 81 Mg Tablet.) 81 mg PO DAILY [facility] Last Admin: 06/27/23 08:15 Dose: 81 mg Documented By: LINDY Atorvastatin Calcium (Atorvastatin Calcium 80 Mg Tablet) 80 mg PO BEDTIME [facility] Last Admin: 06/26/23 20:21 Dose: 80 mg Documented By: ANTONI Dextrose (Dextrose 50 % 25 Gm/50 Ml Syringe) 25 gm IVPUSH Q15M PRN; Protocol PRN Reason: per Hypoglycemia Standing Ord. Diltiazem HCl (Diltiazem Hcl Cd 300 Mg Cap.Er.24h) 300 mg PO DAILY [facility]; Protocol Last Admin: 06/27/23 08:15 Dose: 300 mg Documented By: LINDY Empagliflozin (Empagliflozin 25 Mg Tablet) 25 mg PO DAILY [facility] Last Admin: 06/27/23 08:15 Dose: 25 mg Documented By: LINDY Escitalopram Oxalate (Escitalopram Oxalate 20 Mg Tablet) 20 mg PO DAILY [facility] Last Admin: 06/27/23 08:28 Dose: 20 mg Documented By: LINDY Glucose (Glucose Gel 15 Gm Gel..Gram.) 15 gm PO Q15M PRN; Protocol PRN Reason: per Hypoglycemia Standing Ord. Guaifenesin/Codeine Phosphate (Guaifen/Codeine Sf 200/20/10ml 10 Ml Liquid) 10 ml PO Q4H PRN PRN Reason: Cough Last Admin: 06/26/23 21:41 Dose: 10 ml Documented By: JORGE Heparin Sodium (Porcine) (Heparin Sodium,Porcine 5,000 Unit/Ml Vial) 3,800 unit 40 unit/kg (3800 unit) IVPUSH PROTOCOL BOLUS PRN; Protocol PRN Reason: 40 unit/kg - Heparin Protocol Heparin Sodium (Porcine) (Heparin Sodium,Porcine 5,000 Unit/Ml Vial) 7,600 unit 80 unit/kg (7600 unit) IVPUSH PROTOCOL BOLUS PRN; Protocol PRN Reason: 80 unit/kg - Heparin Protocol Ceftriaxone Sodium 1 gm/ (Sodium Chloride) 50 mls @ 100 mls/hr IV DAILY [facility] Last Infusion: 06/27/23 08:47 Dose: Infused Documented By: LINDY Heparin Sodium/Sodium Chloride (Heparin Sodium,Porcine/1/2ns) 25,000 unit in 250 mls @ 0 mls/hr IVCONT .Q0M [facility]; Protocol Last Admin: 06/26/23 21:42 Dose: 8.59 units/kg/hr, 8.11 mls/hr Documented By: JORGE Co-signed By: ANTONI Sodium Chloride (Ns) 1,000 mls @ 80 mls/hr IVCONT .[id number] [facility] Last Admin: 06/27/23 10:13 Dose: 80 mls/hr Documented By: LINDY Insulin Glargine (Insulin Glargine,Hum.Rec.Anlog 100 Unit/Ml 10 Ml Vial) 50 unit SUBCUT DAILY [facility] Last Admin: 06/27/23 08:16 Dose: 50 unit Documented By: LINDY Insulin Human Lispro (Insulin Lispro 100 Unit/Ml 3 Ml Vial) 0 unit SUBCUT QIDACHS [facility]; Protocol Last Admin: 06/27/23 11:57 Dose: 8 unit Documented By: LINDY Loratadine (Loratadine 10 Mg Tablet) 10 mg PO DAILY [facility] Last Admin: 06/27/23 08:15 Dose: 10 mg Documented By: LINDY Melatonin (Melatonin 3 Mg Tablet) 6 mg PO BEDTIME PRN PRN Reason: Insomnia Last Admin: 06/26/23 21:59 Dose: 6 mg Documented By: ANTONI Metoprolol Tartrate (Metoprolol Tartrate 50 Mg Tablet) 50 mg PO BID [facility]; Protocol Last Admin: 06/27/23 08:15 Dose: 50 mg Documented By: LINDY Nitroglycerin (Nitroglycerin 0.4 Mg Tab.Subl) 0.4 mg SUBLINGUAL Q5MX3 PRN PRN Reason: Chest Pain Last Admin: 06/25/23 23:46 Dose: 0.4 mg Documented By: JORGE Non-Formulary Medication (Dulaglutide [Trulicity]) 1 mg SUBCUT Q7D [facility] Last Admin: 06/25/23 17:02 Dose: Not Given Documented By: EDWIN Non-Admin Reason: Med Not Available Prednisone (Prednisone 20 Mg Tablet) 20 mg PO DAILY [facility] Last Admin: 06/27/23 10:12 Dose: 20 mg Documented By: LINDY Sodium Chloride (0.9 % Sodium Chloride Flush 3 Ml Syringe) 3 ml IVFLUSH QSHIFT [facility] Last Admin: 06/27/23 08:17 Dose: 3 ml Documented By: LINDY Labs 06/26/23 06:03 06/27/23 08:02 Labs: Laboratory Results - last 24 hr 06/26/23 06/26/23 06/26/23 15:27 16:21 20:13 aPTT Heparin Protocol 53.8 D Anion Gap Estim Creat Clear Calc Estimated GFR POC Glucose 343 H 304 H Random Glucose Calcium 06/27/23 06/27/23 06/27/23 07:16 08:02 11:00 aPTT Heparin Protocol 64.3 Anion Gap 18 Estim Creat Clear Calc 36.9 Estimated GFR 34 POC Glucose 197 H 257 H Random Glucose 213 H Calcium 8.4 D Microbiology Microbiology Results: Microbiology 06/25/23 13:26 Blood Culture - Preliminary Blood - Venous No growth after 24 hours. 06/25/23 12:27 Blood Culture - Preliminary Blood - Venous No growth after 24 hours. Assessment and Plan (1) Non-ST elevation [place] (NSTEMI): Status: Acute (2) Acute exacerbation of chronic obstructive pulmonary disease: Status: Acute Plan Day 2: 72 yo f with pmhx COPD, CKD, DM, CAD, ALYSIA, HTN, HLD, hx PE on Eliquis -came with sob and has chest tightness. 1. copd excerebation cxr neg for pneumonia sob with minimal excersion continue nebs ,po steriods ,antibiotics. 2.possible nstemi : Troponins are flat in [id number] continue asa,statin ,bb ,eliquis for now , IV heparin and pt/ptt monitering. cardiology followin 3. Htn: cotninue home meds 4. dm : home insulin regimen fs with coverage 5.hx of pulm embolism -continueeliquis ,may need to switch iv heparin in am. 6. sleep apnea: Continue CPAP. 7. vincent vs ckd : continue hydration avoid nephrotoxic meds nephro consult DVT prophylaxis: On anticoagulation. Patient has COPD exacerbation and possible nstemi will need-in heparin and pt/ptt monitering. Time Spent With Patient Time: Total time managing care of this patient today ____ minutes. Quality Stroke Does the patient have a stroke diagnosis?: No VTE Prior VTE?: No VTE Risk Level:: Medical - moderate - high VTE Device Contraindication: N/A - Device Ordered VTE Drug Contraindication: N/A - Med Ordered
[2023-06-27 16:21] LABS: Glucose, Whole Blood 257 mg/dL (60-115)
[2023-06-27] MEDS: Nitroglycerin 0.4 MG TAB.SUBL SUBLINGUAL ×4 (18:00→22:00)
[2023-06-27] MEDS: methylPREDNISolone Sod Succ 40 MG/ML VIAL IVPUSH (18:08)
[2023-06-27] MEDS: guaiFEN/Codeine SF 200/20/10ML 10 ML LIQUID PO (18:49)
--- NOTE | 2023-06-27 18:57 | PC.NURSE ---
At 1735 soni zheng alert me to patient having increase work of breathing. Spo2 at the time showed 95% on room. Lung sound diminished. Vitals with in normal limits, HR 80, Bp 153/59,Tigertexted. PAtient reported 3/[address] cee at 1746 and forward text to DR. Lewis. Dr. Lewis arrived at bedside at 1755 to to assess situation. Patient on 2L with spo2 97%. Dr. Lewis instructed to give prn nebulizer and prn sub. Nitro to patient. Iv fluids were discontinued. See medication MAR. Patient re-evaluated 15 minutes later. Work of breathing decrease, spo2 on 97% on room air and chest pressure 0/10. Patient bed alarm on and in lowest position and frequent rounding for patient comfort and safety.
[2023-06-27 20:35] LABS: Glucose, Whole Blood 225 mg/dL (60-115)
[2023-06-27] MEDS: Heparin Sodium,Porcine/1/2NS 25,000 UNIT/250 ML IV.SOLN 8.11 UNIT IVCONT (21:52)
[2023-06-27] MEDS: Atorvastatin Calcium 80 MG TABLET PO (21:56)
--- NOTE | 2023-06-27 21:57 | ECG_ITS ---
Test Reason : CP Blood Pressure : / mmHG Vent. Rate : 091 BPM Atrial Rate : 091 BPM P-R Int : 168 ms QRS Dur : 080 ms QT Int : 362 ms P-R-T Axes : 050 042 075 degrees QTc Int : 445 ms Normal sinus rhythm Nonspecific ST abnormality Lateral leads Abnormal ECG When compared with ECG of 25-JUN-2023 13:02, ST more depressed Lateral leads Referred By: Libra Freed Electronically Signed By:YUDY DEE MD
[2023-06-27] MEDS: Acetaminophen 325 MG TABLET 650 MG PO (22:34)
[2023-06-27] MEDS: Melatonin 3 MG TABLET 6 MG PO (22:36)
[2023-06-28] VITALS (7 sets, daily range): BP systolic 140–175; BP diastolic 63–82; PULSE 90–107; RESP 18–20; TEMP 36.1–36.7; O2SAT 94–97
--- NOTE | 2023-06-28 02:16 | PC.NURSE ---
Assumed care at 19:00. Patient alert and oriented, anxious, some tremulousness in bilateral hands and lower arms reportedly began after administration of solumedrol on prior shift. Patient continued to report chest pain 3/10 pressure-like sensation like someone sitting on her chest, nonradiating, sensation about the sternum and immediately left lateral of sternum. Patient also endorsed SOB. On 2 LPM with SpO2 94-96%. RT and MD notified. Patient medicated with SL nitroglycerin tabs x 3 as per emar with effect, and with some lowering of BP with systolic BP going from 130's - 140's - 105 after three tabs, and MD notified and held the PO metoprolol per MD. Patient also had recently had nebulizer, but RT brought PRN LUZMARIA and was administered with effect. Patient reported new onset headache after the three SL nitro tabs and was administered tylenol as well, also reported bilateral shoulder pain chronically. Patient reported CP down to 0/10 after the nitroglycerin tablets. Continues on heparin gtt with no change. MD ordered EKG which was done and reviewed by .
[2023-06-28] MEDS: Albuterol/Iprat 2.5/0.5MG 3 ML AMPUL.NEB INHALE ×3 (04:25→10:57)
[2023-06-28] MEDS: methylPREDNISolone Sod Succ 40 MG/ML VIAL IVPUSH (06:18)
[2023-06-28 07:26] LABS: PTT Heparin Drip 51.4 SEC (53-77.9)
[2023-06-28 07:35] LABS: Glucose, Whole Blood 210 mg/dL (60-115)
[2023-06-28 07:46] LABS: Anion Gap 16 (12-20); Blood Urea Nitrogen 42 mg/dL (9-16); Calcium 8.4 mg/dL (8.4-10.2); Carbon Dioxide 20 mmol/L (22-29); Chloride 108 mmol/L (96-108); Creatinine Clr Calc Pharmacy 40.4; Estimated Glomerular Filt Rate 38; Glucose Random 219 mg/dL (60-115); Potassium 4.1 mmol/L (3.3-5.1); Sodium 140 mmol/L (135-145)
[2023-06-28] MEDS: cefTRIAXone sodium 1 GM in 0.9 % Sodium Chloride 50 ML IV (08:13)
[2023-06-28] MEDS: Insulin Lispro 100 UNIT/ML 3 ML VIAL SUBCUT (08:13)
[2023-06-28] MEDS: Heparin Sodium,Porcine 5,000 UNIT/ML VIAL 3800 UNIT IVPUSH (08:14)
[2023-06-28] MEDS: Escitalopram Oxalate 20 MG TABLET PO (08:14)
[2023-06-28] MEDS: Aspirin Enteric Coated 81 MG TABLET.DR PO (08:14)
[2023-06-28] MEDS: Empagliflozin 25 MG TABLET PO (08:15)
[2023-06-28] MEDS: dilTIAZem HCL CD 300 MG CAP.ER.24H PO (08:15)
[2023-06-28] MEDS: Heparin Sodium,Porcine/1/2NS 25,000 UNIT/250 ML IV.SOLN 10 UNIT IVCONT (08:20)
[2023-06-28] MEDS: Loratadine 10 MG TABLET PO (09:47)
[2023-06-28] MEDS: 0.9 % Sodium Chloride Flush 3 ML SYRINGE IVFLUSH (09:47)
[2023-06-28] MEDS: Metoprolol Tartrate 50 MG TABLET PO (09:47)
[2023-06-28] MEDS: hydrALAZINE HCl 10 MG TABLET PO (09:47)
[2023-06-28] MEDS: Insulin Glargine,Hum.rec.anlog 100 UNIT/ML 10 ML VIAL 50 UNIT SUBCUT (09:47)
--- NOTE | 2023-06-28 11:10 | PM.PNCARD ---
Subjective Subjective Date of Service: 06/28/23 Principal diagnosis: NSTEMI Interval history: Patient complains of chest pressure tightness just by walking back and forth from the bathroom. Continues to have shortness of breath but wheezing has improved. Denies lightheadedness, syncope. Review of Systems Constitutional: Reports no additional constitutional complaints Cardiovascular: Reports chest pain with activity and Reports dyspnea on exertion Respiratory: Reports dyspnea on exertion Gastrointestinal: Reports no additional gastrointestinal complaints Musculoskeletal: Reports no additional musculoskeletal complaints Reports system reviewed and no additional complaints, except as documented Psychiatric: Reports no additional psychiatric complaints Endocrine: Reports no additional endocrine complaints Physical Exam Vital Signs: Last Vital Signs Temp 98.0 F 06/28/23 07:10 Pulse 92 06/28/23 10:58 Resp 18 06/28/23 10:58 BP 175/82 H 06/28/23 07:10 Pulse Ox 96 06/28/23 07:10 O2 Del Method Nasal Cannula 06/28/23 07:10 O2 Flow Rate 2 06/28/23 07:10 BMI result Body Mass Index 35.7 Const General: cooperative, comfortable, in distress mild and respiratory and anxious Nutritional Appearance: obese Orientation/consciousness: patient oriented x3 Neck Neck: Yes trachea midline, Yes supple and Yes no JVD Resp Effort & Inspection: normal respiratory effort Auscultation: wheezes scattered wheezes Cardio Jugular venous distension: no JVD Rate: regular rate Rhythm: regular rhythm Heart sounds: S1 normal heart sound present, S2 normal heart sound present, no click, no gallops and Murmur heart sound present systolic early Skin General skin exam: no rashes or lesions noted Neuro General: patient oriented x3 and no focal motor deficits Extrem General: Yes no clubbing, cyanosis or edema Objective Labs and Meds 06/26/23 06:03 06/28/23 06:17 Lab results: Laboratory Results - last 24 hr 06/27/23 06/27/23 06/27/23 11:00 16:04 20:30 Hold Purple Top aPTT Heparin Protocol Sodium Potassium Chloride Carbon Dioxide Anion Gap BUN Creatinine Estim Creat Clear Calc Estimated GFR POC Glucose 257 H 257 H 225 H Random Glucose Calcium 06/28/23 06/28/23 06:17 07:07 Hold Purple Top SEE NOTE aPTT Heparin Protocol 51.4 L D Sodium 140 Potassium 4.1 Chloride 108 Carbon Dioxide 20 L Anion Gap 16 BUN 42 H Creatinine 1.36 Estim Creat Clear Calc 40.4 Estimated GFR 38 POC Glucose 210 H Random Glucose 219 H Calcium 8.4 Progress Note: A&P Assessment and plan (1) Non-ST elevation [place] (NSTEMI): Status: Acute Assessment and Plan: Patient present with COPD exacerbation and had elevated troponin consistent with NSTEMI. Complaining of exertional chest tightness shortness of breath which is concerning for myocardial ischemia. She has known history of prior nonobstructive CAD by cardiac catheterization. There is likelihood of progressive coronary arteries and/or acute block rupture. Continue IV heparin. Needs cardiac catheterization to further elucidate coronary anatomy and possible treatment if there is significant acute plaque rupture and obstructive disease. This was discussed with her. Need for cardiac catheterization including risk, benefits were discussed. She had elevated creatinine but this has improved to her baseline. Risk of contrast induced nephropathy was discussed continue IV hydration. Continue treatment with statins, beta-blockers and calcium channel blockers as well as aspirin therapy. Hold off on oral anticoagulation therapy and if she undergo stenting would require short duration triple therapy followed by oral anticoagulation single platelet therapy in the long run for about a year. Mention were discussed in details. Remains for transfer being made. Will follow up as outpatient. Time Spent With Patient Time: Total time managing care of this patient today ____ minutes. Progress Note: Quality Stroke Does the patient have a stroke diagnosis?: No Procedures Date of Service Date of Service: 06/28/23
[2023-06-28 11:13] LABS: Glucose, Whole Blood 310 mg/dL (60-115)
--- NOTE | 2023-06-28 11:56 | PC.NURSE ---
report called to angely preston 10a arranging transport.
--- NOTE | 2023-06-28 11:58 | MHC.CM.PN ---
Per [facility]OUNDS discussion, Patient will be dc/transferred to [facility] today.
--- NOTE | 2023-06-28 12:14 | P.DS_ITS ---
DS: Providers Provider Date of Service: 06/28/23 Date of admission: 06/25/23 15:22 Date of discharge: 06/28/23 Primary care physician: Amanda Leiva MD Consults: 06/25/23 14:02 Consult to Cardiology Stat Consulting Provider: [facility] Reason for consultation: elevated trop Has provider been notified: Yes 06/25/23 15:29 Consult to Cardiology Routine Consulting Provider: [facility] Reason for consultation: nstemi? Has provider been notified: No 06/27/23 14:24 Consult to Nephrology Routine Consulting Provider: Ahmet Oliver Reason for consultation: vincent vs ckd Has provider been notified: No Attending physician on discharge: Kenrick Millard Discharging clinician: Kenrick Millard DS: Diagnosis Discharge Diagnosis (1) Non-ST elevation MN (NSTEMI): Status: Acute (2) Acute exacerbation of chronic obstructive pulmonary disease: Status: Acute DS: Summary Hospital Course Hospital Course: 72 yo f with pmhx COPD, CKD, DM, CAD, ALYSIA, HTN, HLD, hx PE on Eliquis who presents to the ER from home for evaluation of SOB, productive cough of green phlegm and wheezing for the last 2-3 days. she also c/o of chest tightness ,interrmittent ,radiating to b/l shoulders ,She states she has central chest pains as well, they come and go and are mostly when she coughs. She states her SOB has been worsening, especially with exertion or coughing,She states at baseline she does not use inhalers or nebulizers but yesterday she used them both with no relief.The pains are aching and radiate to both shoulders. she also complain bodyaches . Denies any new complaint of abdominal pain or fever or chills or nausea or vomiting or cough or weakness or numbness. No known sick contacts. Lab imaging EKG reviewed: Elevated WBC count 16.7, BMP seems fine, chest x-ray negative EKG also seems NSR. Troponin in 2400 range ED physician: Discuss case with cardiology: Currently plan is to trend troponin, given aspirin, continue Eliquis for now, may need to switch to IV heparin possibly in a.m. in anticipation for cardiac catheterization. Hospital course: 72 yo f with pmhx COPD, CKD, DM, CAD, ALYSIA, HTN, HLD, hx PE on Eliquis -came with sob and has chest tightness: Patient came to the hospital because shortness of breath found to have COPD exacerbation ,also NSTEMI: Patient was started on nebs, steroids, p.o. antibiotics for COPD exacerbation-seems improving, can be transition p.o. steroids slowly. also started on IV heparin,pt/ptt monitering for NSTEMi- her aspirin, statin, beta-ned continued, added nitro paste. Her Eliquis is on hold since she is on IV heparin for NSTEMI-ends switched back to Eliquis once ok with cardiology. vincent vs ckd : intially cr in 1.49 range ,received ivf-cr flactautes from 1.1 range to 1.4 range . today cr is 1.36. lisinopril /hctz on hold . htn :continue bb, cardizem ,added hydralazine since currently lisinopril is on hold. Above management discussed patient in detail and she understand that time spent 50 minute. Time Spent with Patient Time attestation: Total time managing care of this patient today ____ minutes. Discharge coordination time: Greater than 30 minutes Quality: Safe Use of Opioids Does Pt have an Active Cancer Diagnosis on the Problem List?: No Quality: Stroke Does the patient have a stroke diagnosis?: No Physical Exam Vital Signs: Vital Signs: Last Vital Signs Temp 98.0 F 06/28/23 07:10 Pulse 90 06/28/23 11:04 Resp 20 06/28/23 11:04 BP 159/68 H 06/28/23 11:04 Pulse Ox 96 06/28/23 11:04 O2 Del Method Nasal Cannula 06/28/23 11:04 O2 Flow Rate 2 06/28/23 11:04 BMI result Body Mass Index 35.7 Appearance: Alert.? Oriented X3.sob seems improving ,could able to wlak to bathroom also. cvs: rrr, [id number] , no murmur res: air entry improving ,has some wheezing but improving than yesterday. abd: no rebound or guarding ,nt, bs present. ext pulses present , no cyanosis , no edema. neuro: axo3 , nonfocal. DS: Data Data Completed and Pending Labs on day of discharge: Laboratory Results - last 24 hr 10/06/27/23 06/28/23 16:04 20:30 06:17 Hold Purple Top SEE NOTE aPTT Heparin Protocol 51.4 L D Sodium 140 Potassium 4.1 Chloride 108 Carbon Dioxide 20 L Anion Gap 16 BUN 42 H Creatinine 1.36 Estim Creat Clear Calc 40.4 Estimated GFR 38 POC Glucose 257 H 225 H Random Glucose 219 H Calcium 8.4 06/28/23 06/28/23 07:07 11:06 Hold Purple Top aPTT Heparin Protocol Sodium Potassium Chloride Carbon Dioxide Anion Gap BUN Creatinine Estim Creat Clear Calc Estimated GFR POC Glucose 210 H 310 H Random Glucose Calcium Preliminary micro results at discharge 06/25/23 13:26 Blood Culture - Preliminary Blood - Venous No growth after 48 hours. 06/25/23 12:27 Blood Culture - Preliminary Blood - Venous No growth after 48 hours. Imaging Chest x-ray: Radiologist's impression: ITS Impressions Chest X-Ray 06/25/23 13:30 IMPRESSION: Chronic markings. No convincing evidence for an acute process. Discharge Plan Discharge Anticipated Discharge Date/Time: 06/28/23 11:59 Patient Disposition: er Acute [facility] Discharge Diagnosis: nstemi,acute respiratory failure sec to asthma Referrals: [facility] [Outside] - 1 Week Amanda Leiva MD [Primary Care Provider] - 1 Week Discharge Medications: New hydralazine 10 mg Tablet 10 mg PO TID Qty: 1 0RF Protocol: Hold for SBP< HOLD for SBP < : 90 ipratropium-albuterol 0.5 mg-3 mg(2.5 mg base)/3 mL Solution For Nebulization 3 ml inhalation Q3H PRN (Reason: sob) Qty: 1 0RF ipratropium-albuterol 0.5 mg-3 mg(2.5 mg base)/3 mL Solution For Nebulization 3 ml inhalation RQ4H Qty: 1 0RF Nitro-Bid 2 % Ointment 1 inch transdermal RQ6H WHILE AWAKE Qty: 30 0RF heparin(porcine) in 0.45% NaCl 25,000 unit/250 mL Parenteral Solution 25,000 unit continuous IV infusion .Q0M Qty: 1 0RF aspirin 81 mg Tablet,Delayed Release (Dr/Ec) 81 mg PO DAILY Qty: 1 0RF insulin lispro [Humalog U-100 Insulin] 100 unit/mL Solution See Protocol subcut QIDACHS Qty: 1 0RF Protocol: Insulin Correction Scale Less than or equal to 110 ---- Give (units): 0 111 to 150 Give (units): 0 151 to 200 Give (units): 2 201 to 250 Give (units): 4 251 to 300 Give (units): 8 301 to 350 Give (units): 10 Greater than 350 Give (units): 14 Call MD if Blood Glucose > : 350 Solu-Medrol (PF) 40 mg/mL Recon Soln 40 mg IVPUSH Q24H Qty: 1 0RF Continued Jardiance 25 mg tablet 25 mg PO DAILY Qty: 90 1RF (DME) FreeStyle Lite Strips Strip See Rx Instructions .Route Qty: 100 3RF Rx Instructions: test blood sugar once a day metoprolol tartrate 50 mg tablet 50 mg PO BID Qty: 180 3RF (DME) FreeStyle Kelly 2 Sensor Kit See Rx Instructions .ROUTE .MEDSUPPLY Qty: 6 3RF Rx Instructions: As directed every 2 weeks (DME) belgica Caldera See Rx Instructions .Route Qty: 1 0RF Rx Instructions: As directed diltiazem HCl [Matzim LA] 300 mg tablet extended release 24 hr 300 mg PO DAILY insulin lispro [Humalog KwikPen Insulin] 100 unit/mL Insulin Pen 1 sliding scale dose SUBCUT QIDACHS Protocol: Insulin Correction Scale Less than or equal to 110 ---- Give (units): 0 111 to 150 Give (units): 0 151 to 200 Give (units): 2 201 to 250 Give (units): 4 251 to 300 Give (units): 6 301 to 350 Give (units): 8 Greater than 350 Give (units): 10 Call MD if Blood Glucose > : 350 prednisone 10 mg tablet 30 mg PO DAILY Rx Instructions: 40 mg qd x2d, 30 mg qd x2d, 20 mg qd x2d, 10 mg qd x2d citalopram 40 mg tablet 20 mg PO DAILY Trulicity 1.5 mg/0.5 mL pen injector 1 mg subcut Q7D atorvastatin 80 mg tablet 80 mg PO QPM Qty: 90 2RF insulin glargine [Lantus Solostar U-100 Insulin] 100 unit/mL (3 mL) insulin pen 50 unit subcut DAILY Qty: 15 3RF Held lisinopril-hydrochlorothiazide 10-12.5 mg tablet 1 tab PO DAILY Qty: 90 3RF Hold Instructions: Resume on 06/30/23. albuterol sulfate [ProAir HFA] 90 mcg/actuation Hfa Aerosol Inhaler 2 puff INHALATION Q4H PRN (Reason: Shortness Of Breath) Hold Instructions: Resume on 06/29/23. albuterol sulfate 2.5 mg/0.5 mL Solution For Nebulization 5 mg INHALATION Q6H PRN (Reason: Shortness Of Breath) Hold Instructions: Resume on 06/29/23. Eliquis 5 mg tablet 5 mg PO BID Hold Instructions: Resume on 06/30/23. hold until patient on iv heparin Discontinued doxycycline hyclate 100 mg tablet 100 mg PO BID Discharge Orders: Discharge Order (Routine); Ordered 06/28/23 Ordered By: Kenrick Millard Diet: Advance to usual diet Activity on Discharge: As tolerated Stand Alone Forms: Patient Portal Discharge page Care Plan Goals: 72 yo f with pmhx COPD, CKD, DM, CAD, ALYSIA, HTN, HLD, hx PE on Eliquis -came with sob and has chest tightness: Patient came to the hospital because shortness of breath found to have COPD exacerbation ,also NSTEMI: Patient was started on nebs, steroids, p.o. antibiotics for COPD exacerbation-seems improving, can be transition p.o. steroids slowly. also started on IV heparin,pt/ptt monitering for NSTEMi- her aspirin, statin, beta-ned continued, added nitro paste. Her Eliquis is on hold since she is on IV heparin for NSTEMI-ends switched back to Eliquis once ok with cardiology. vincent vs ckd : intially cr in 1.49 range ,received ivf-cr flactautes from 1.1 range to 1.4 range . today cr is 1.36. lisinopril /hctz on hold . htn :continue bb, cardizem ,added hydralazine since currently lisinopril is on hold. Above management discussed patient in detail and she understand that time spent 50 minute. Health Concerns: As above. Plan of Treatment: As above. Assessment: as above.
== END 2023-06-28 13:11 | disposition short-term general hospital (02) | DRG 191 ==
LOC: HO.ED 14:16 → HO.EDOVER 15:29 → HO.IMC 17:17
PROVIDERS: Physician Assistant; Physician Assistant Medical; Admitting Provider Internal Medicine; Emergency Provider Emergency Medicine; PCP Internal Medicine; Visit Provider Internal Medicine
DX: J44.1 Chronic obstructive pulmonary disease with (acute) exacerbation (principal); N17.9 Acute kidney failure, unspecified; I25.10 Atherosclerotic heart disease of native coronary artery without angina pectoris; I12.9 Hypertensive chronic kidney disease with stage 1 through stage 4 chronic kidney disease, or unspecified chronic kidney disease; N18.30 Chronic kidney disease, stage 3 unspecified; E11.22 Type 2 diabetes mellitus with diabetic chronic kidney disease; G47.33 Obstructive sleep apnea (adult) (pediatric); Z20.822 Contact with and (suspected) exposure to COVID-19; Z86.711 Personal history of pulmonary embolism; Z90.2 Acquired absence of lung [part of]; Z87.891 Personal history of nicotine dependence; Z91.040 Latex allergy status; Z79.4 Long term (current) use of insulin; Z79.01 Long term (current) use of anticoagulants; Z79.899 Other long term (current) drug therapy
CPT/HCPCS: 0241U; 36415; 71046; 80048; 80053; 82947; 83605; 83735; 84145; 84484; 85025; 85027; 85610; 85730; 87040; 87633; 87635; 93005; 93306; 94640; 99285; J0456; J0696; J1643; J2920; J2930; J3475; Q9957

== ENCOUNTER → 2023-06-25 15:22 | Outpatient (BNV) | payer MEDICARE, SELFPAY | PROVIDERS: Admitting Provider Internal Medicine; Emergency Provider Emergency Medicine; PCP Internal Medicine; Visit Provider Internal Medicine | DX: I21.4 Non-ST elevation (NSTEMI) myocardial infarction (principal); J44.1 Chronic obstructive pulmonary disease with (acute) exacerbation | CPT/HCPCS: 99222; 99232; 99239 ==

== ENCOUNTER → 2023-06-25 15:22 | Outpatient (BNV) | payer MEDICARE, SELFPAY | PROVIDERS: Admitting Provider Internal Medicine; Emergency Provider Emergency Medicine; PCP Internal Medicine; Visit Provider Internal Medicine | DX: I21.4 Non-ST elevation (NSTEMI) myocardial infarction (principal); J44.1 Chronic obstructive pulmonary disease with (acute) exacerbation; E11.22 Type 2 diabetes mellitus with diabetic chronic kidney disease; N18.30 Chronic kidney disease, stage 3 unspecified; I35.0 Nonrheumatic aortic (valve) stenosis | CPT/HCPCS: 93306; 99223; 99233 ==

== ENCOUNTER 2023-08-11 08:59 | Inpatient (IN) | payer MEDICARE, SELFPAY ==
--- NOTE | ~2023-08-11 | XR_ITS ---
EXAMINATION: XR CHEST CLINICAL INFORMATION: Chest pain COMPARISON: None available. TECHNIQUE: Frontal view of the chest was obtained. FINDINGS: The lungs are well-expanded and clear of acute pneumonic process. The heart size and pulmonary vascularity is normal. Mild spondylosis seen in the right lower dorsal spine. XR/XR chest 1V IMPRESSION: No acute cardiopulmonary process seen.
--- NOTE | ~2023-08-11 | CT_ITS ---
EXAMINATION: CT ABDOMEN AND PELVIS WITH CONTRAST CLINICAL INFORMATION: Epigastric and right upper quadrant pain. COMPARISON: CT abdomen pelvis 04/05/2022. TECHNIQUE: Multidetector volumetric images were obtained from the superior aspect of the liver through the pubic symphysis following administration 85 mL of Omnipaque 350 intravenous contrast. Sagittal and coronal reformatted images were obtained on the technologist's workstation. Oral contrast: No This CT examination was performed using dose optimization techniques as appropriate, variously including the following: *Automated exposure control *Adjustment of mA and/or kV according to patient size (this includes techniques or standardized protocols for targeted exams where dose is matched to indication/reason for exam; i.e. extremities or head) *Use of iterative reconstruction technique DLP: 736 mGy-cm FINDINGS: LUNG BASES: The visualized lung bases are unremarkable. LIVER, GALLBLADDER, AND BILIARY TREE: The liver is normal in size, shape, and attenuation. There is a 3 mm hypodensity right hepatic lobe. No additional lesions seen. No intrahepatic ductal dilatation.. Gallbladder has been surgically removed. PANCREAS: Unremarkable. SPLEEN: Unremarkable. ADRENAL GLANDS: Unremarkable. KIDNEYS AND URETERS: The left kidney is normal in size, shape, and attenuation. The right kidney is small and horizontally oriented measuring 7.2 cm in maximum length. No hydronephrosis, hydroureter, or calculi seen. No perinephric stranding. BLADDER: Unremarkable. GASTROINTESTINAL TRACT: There is scattered stool, diverticuli and gas seen throughout the colon without distention. The small bowel loops are normal caliber. Appendix is normal. No inflammatory process, free air or free fluid seen. ABDOMINAL WALL: No significant hernia is appreciated. LYMPH NODES: Normal. VASCULAR: There is mild to sclerotic calcification of abdominal aorta without dilatation. There is minimal thrombus seen in the mid segment PELVIC VISCERA: The uterus is anteverted and appears unremarkable. There is no free air or free fluid. OSSEOUS STRUCTURES: Grade 1 anterolisthesis L4 over L5 is noted. No aggressive lytic or sclerotic process seen. CT/CT abdomen pelvis w IV con IMPRESSION: Colonic diverticulosis without diverticulitis. Mild constipation. Gallbladder is out. Small right kidney with mild cortical thinning, similar to previous exam 04/05/2022 Fleischner guidelines were followed.
--- NOTE | 2023-08-11 09:51 | ED.CHESTPAIN ---
HPI - Chest Pain General Chief Complaint: Chest Pain Stated Complaint: Chest pain Time Seen by Provider: 08/11/23 09:50 Source: patient, EMS, RN notes reviewed and old records reviewed Mode of arrival: EMS History of Present Illness HPI narrative: 72-year-old female with a past medical history of COPD, CKD, DM, CAD, ALYSIA, HTN, HLD, PE on Eliquis, NSTEMI s/p cardiac catheterization on 06/29/23 w/stent placement, presenting to the ED via EMS from home complaining of substernal chest pain/pressure radiating to back/right shoulder waking her up from sleep since last night. Reports pain is constant with associated SOB. Patient given 1 dose of nitro without relief, given IM Toradol and ASA with some relief. Also reports abdominal pain. Denies cough, pedal edema, calf pain, vomiting MD complaint: chest pain Related Data Home Medications Medication Instructions Recorded Confirmed apixaban 5 mg tablet (Eliquis) 5 mg PO BID 09/30/21 06/25/23 citalopram 40 mg tablet 20 mg PO DAILY 02/05/23 06/25/23 dulaglutide 1.5 mg/0.5 mL 1 mg subcut Q7D 02/05/23 06/25/23 subcutaneous pen injector (Trulicity) albuterol sulfate 2.5 mg/0.5 mL 5 mg inhalation Q6H PRN Shortness 06/25/23 06/25/23 solution for nebulization Of Breath albuterol sulfate 90 mcg/actuation 2 puff inhalation Q4H PRN 06/25/23 06/25/23 aerosol inhaler (ProAir HFA) Shortness Of Breath diltiazem HCl 300 mg 300 mg PO DAILY 06/25/23 06/25/23 tablet,extended release 24 hr (Matzim LA) insulin lispro 100 unit/mL 1 sliding scale dose subcut QIDACHS 06/25/23 06/25/23 subcutaneous pen (Humalog KwikPen (U-100) Insulin) prednisone 10 mg tablet 30 mg PO DAILY 06/25/23 06/25/23 Previous Rx's Medication Instructions Recorded atorvastatin 80 mg tablet 80 mg PO QPM #90 tabs 02/05/23 walker #1 ea 02/28/23 empagliflozin 25 mg tablet 25 mg PO DAILY #90 tabs 03/19/23 (Jardiance) insulin glargine 100 unit/mL (3 50 unit (0.5 mL) subcut DAILY #15 03/19/23 mL) subcutaneous pen (Lantus mL Solostar U-100 Insulin) blood sugar diagnostic (FreeStyle #100 ea 03/26/23 Lite Strips) lisinopril 10 1 tab PO DAILY #90 tabs 04/21/23 mg-hydrochlorothiazide 12.5 mg tablet metoprolol tartrate 50 mg tablet 50 mg PO BID #180 tabs 04/21/23 flash glucose sensor (FreeStyle #6 ea 05/14/23 Kelly 2 Sensor kit) aspirin 81 mg tablet,delayed 81 mg PO DAILY #1 tab 06/28/23 release heparin (porcine) 25,000 unit/250 25,000 unit (250 mL) continuous IV 06/28/23 mL in 0.45 % sodium chloride IV infusion .Q0M #1 mL soln hydralazine 10 mg tablet 10 mg PO TID #1 tab 06/28/23 insulin lispro 100 unit/mL See Protocol subcut QIDACHS #1 mL 06/28/23 subcutaneous solution (Humalog U-100 Insulin) ipratropium 0.5 mg-albuterol 3 mg 3 ml inhalation Q3H PRN sob #1 mL 06/28/23 (2.5 mg base)/3 mL nebulization soln ipratropium 0.5 mg-albuterol 3 mg 3 ml inhalation RQ4H #1 mL 06/28/23 (2.5 mg base)/3 mL nebulization soln methylprednisolone sod suc(PF) 40 40 mg IVPUSH Q24H #1 ea 06/28/23 mg/mL solution for injection (Solu-Medrol (PF)) nitroglycerin 2 % transdermal 1 inch transdermal RQ6H WHILE 06/28/23 ointment (Nitro-Bid) AWAKE #30 grams Allergies Allergy/AdvReac Type Severity Reaction Status Date / Time Latex, Natural Rubber Allergy Severe blisters Verified 06/25/23 11:54 Sulfa (Sulfonamide Allergy Mild ITCHING, Verified 06/25/23 11:54 Antibiotics) rash [SULFA (SULFONAMIDE ANTIBIOTICS)] nystatin Allergy Unknown rash Verified 06/25/23 11:54 isosorbide [From Imdur] AdvReac Unknown HEADACHES, Verified 06/25/23 11:54 headache tizanidine AdvReac Unknown weakness, Verified 06/25/23 11:54 Hellucination Review of Systems Review of Systems: Constitutional: No Fever, No Chills ENT/Mouth: No Ear Pain, No Nasal Congestion, No sore throat, No Rhinorrhea, No Swallowing Difficulty Cardiovascular: + Chest Pain, + SOB Respiratory: No Cough, No Sputum, No Wheezing Gastrointestinal: No Nausea, No Vomiting, No Diarrhea, No Constipation, + Abdominal pain Genitourinary: No Dysuria, No Urinary Frequency Musculoskeletal: No joint pain, No Myalgias, No Joint Swelling Skin: No Skin Lesions, No rash Neuro: No Weakness, No Numbness, No Paresthesias Yes all other systems are reviewed and are negative Constitutional: Constitutional: Reports as per [facility] Past Medical History Attestation statement: The following information was validated with the patient. 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 Father No problems noted. Brother Substance use disorder Brother Substance use disorder Social History Social History Household Members: Family Household Members Other:: Lives with daughter and grandson Housing: House Do you presently have visiting nurse or other home services: Yes Alcohol intake: never Patient Tobacco Use Status: Former Tobacco user Quit Date: 1993 Smoked: 10 +/- Smoked in Last 30 Days: No e-Cigarette/Vaping Use: Never Used Use of substances other than those prescribed or required for medical reasons: No Advance Directives: Yes Advance Directives on File: Yes Advance Directives Date on File: 06/29/63 service: No Current occupational status: retired Cognitive needs: No Hearing needs: No Vision needs: No Physical Exam Vital Signs: Vital Signs: Last Vital Signs Temp 98.7 F 08/11/23 14:21 Pulse 75 08/11/23 14:21 Resp 18 08/11/23 14:21 BP 120/48 L 08/11/23 14:21 Pulse Ox 97 08/11/23 14:21 O2 Del Method Room Air 08/11/23 14:21 BMI result Body Mass Index 35.2 Const: General: cooperative, healthy appearing and no acute distress Orientation/consciousness: patient oriented x3 Limitations: no limitations HEENT: Head: Yes normal to inspection and Yes atraumatic Ears: hearing grossly normal bilaterally General nose exam: Normal external nose present Face and sinus: Yes normal facial exam Eyes: General: appearance normal, both eyes and all related structures EOM: EOMs intact bilaterally Neck: Neck: Yes normal visual inspection and Yes no meningeal signs Resp: Effort & Inspection: normal respiratory effort and no respiratory distress Auscultation: clear to auscultation bilaterally, no crackles, no rales, no rhonchi and no wheezes Cardio: Rate: regular rate Heart sounds: S1 normal heart sound present and S2 normal heart sound present GI: Inspection: Yes normal to inspection Palpation (GI): Soft to palpation, Tenderness to palpation present (GI) in the epigastrum and in the RUQ; with no rebound tenderness, no guarding and not rigid Skin: Rashes: no rashes Wounds: no wounds Neuro: General: patient oriented x3, tone normal and no meningeal signs Cranial nerves: Yes CN's II-XII intact bilaterally Gait exam (Neuro): Normal gait present Extrem: General: Yes normal to inspection, Yes no pedal edema and Yes no calf tenderness Course Course Course Narrative: -1124--no leukocytosis. BUN chronically elevated. Lipase is 163, concern for acute pancreatitis -initial troponin 8.7 > will obtain 3 hour repeat. BNP 156 > no clinical evidence of fluid overload -1245--COVID/flu/RSV negative -case discussed with Cardiology, Dr. Leblanc, suspicious for intra-abdominal pathology rather than cardiac etiology. Will pend repeat troponin/CT. XR chest 1V IMPRESSION: No acute cardiopulmonary process seen. 1356--CT abdomen pelvis w IV con IMPRESSION: Colonic diverticulosis without diverticulitis. Mild constipation. Gallbladder is out. Small right kidney with mild cortical thinning, similar to previous exam 04/05/2022 Fleischner guidelines were followed. -1524--repeat troponin without rise. On re-evaluation patient reports continued pain, appears uncomfortable. Does not feel safe for discharge home >>Will discuss case with hospitalist. Medications Administered Discontinued Medications Generic Name Dose Route Start Last Admin Trade Name Ariana PRN Reason Stop Dose Admin Iohexol 100 ml 08/11/23 12:38 08/11/23 12:38 Iohexol 350 Mg/Ml 100 Ml Infus..Btl IV 08/11/23 12:39 85 ml ONCE ONE Administration Morphine Sulfate 2 mg 08/11/23 10:09 08/11/23 12:21 Morphine Sulfate 2 Mg/Ml Cartridge IVPUSH 08/11/23 10:10 2 mg ONCE ONE Administration Protocol Morphine Sulfate 2 mg 08/11/23 14:07 08/11/23 14:56 Morphine Sulfate 2 Mg/Ml Cartridge IVPUSH 08/11/23 14:08 2 mg ONCE ONE Administration Protocol Medical Decision Making Medical Decision Making MDM Narrative: 72-year-old female with a past medical history of COPD, CKD, DM, CAD, ALYSIA, HTN, HLD, PE on Eliquis, NSTEMI s/p cardiac catheterization on 06/29/23 w/stent placement, presenting to the ED via EMS from home complaining of substernal chest pain/pressure radiating to back/right shoulder waking her up from sleep since last night. Reports pain is constant with associated SOB. Also reports abdominal pain. On exam vital signs stable, in NAD, lungs CTA, abdomen soft epigastric and RUQ and right-sided abdominal tenderness, no rebound or guarding. Concern for ACS vs pancreatitis. Lower suspicion for PE as patient is anticoagulated. Dissection on differential however lower. Unlikely CHF, COPD, renal stone/pyelo Plan: EKG, labs, UA, CXR, CT AP, IV morphine, re-evaluate Please refer to course for remaining clinical decision making, interpretation of labs/imaging results, and discussions with consultants and/or family members. Differential Diagnosis Differential Diagnoses: The differential diagnosis associated with the presentation includes As above Admission/Observation Consideration of admission/observation: Escalation of care including admission/observation considered Consult Healthcare Provider Management of the patient was discussed with: Hospitalist and Electrical Appliance Repairer (cardiology ) Lab Data [facility] Lab Attestation statement: I reviewed the patient's lab results. 08/11/23 10:24 08/11/23 10:24 Labs: Lab Results 08/11/23 08/11/23 08/11/23 Range/Units 10:24 14:02 14:20 WBC 10.1 (4.8-10.8) X10*3/uL RBC 4.48 (4.20-5.50) X10*6/uL Hgb 12.5 (12.0-16.0) g/dl Hct 39.0 (37.0-47.0) % MCV 87.1 (80.0-98.0) fL MCH 27.9 (27.0-33.0) pg MCHC 32.1 (31.0-35.0) g/dl RDW 15.7 (11.0-16.0) % Plt Count 243 (160-400) X10*3/uL MPV 9.9 (9.4-12.3) fL Immature Gran % (Auto) 0.8 H (0.0-0.4) % Neut % (Auto) 66.6 (45-73) % Lymph % (Auto) 21.6 (20-40) % [facility] % (Auto) 7.1 (2-11) % Eos % (Auto) 3.2 (0-4) % Baso % (Auto) 0.7 (0-2) % Lymph # (Auto) 2.2 (1.2-4.9) X10*3/uL [facility] # (Auto) 0.7 (0.1-1.2) X10*3/uL Eos # (Auto) 0.3 (0.0-0.4) X10*3/uL Baso # (Auto) 0.1 (0.0-0.2) X10*3/uL Abs Immat Gran (auto) 0.08 H (0.00-0.03) X10*3/uL Absolute Neuts (auto) 6.7 (2.0-8.3) x10*3/uL Absolute Nucleated RBC 0.000 (0.0-0.012) X10*3/uL Nucleated RBC % (auto) 0.0 (0.0-0.2) /100WBC Sodium 138 (135-145) mmol/L Potassium 4.3 (3.3-5.1) mmol/L Chloride 104 (96-108) mmol/L Carbon Dioxide 25 (22-29) mmol/L Anion Gap 13 (12-20) BUN 25 H (9-16) mg/dL Creatinine 1.12 (0.5-1.4) mg/dL Estim Creat Clear Calc 48.6 Estimated GFR 48 Random Glucose 181 H (60-115) mg/dL Calcium 9.3 D (8.4-10.2) mg/dL Magnesium 2.1 (1.6-2.6) mg/dL Total Bilirubin 0.5 (0.0-1.0) mg/dL Direct Bilirubin 0.2 (0.0-0.5) mg/dL AST 13 (5-31) U/L ALT 12 (0-31) U/L Alkaline Phosphatase 104 (39-117) U/L Troponin I High Sens 8.7 D 9.2 (<3.5-17.0) ng/L B-Natriuretic Peptide 156 H (<100) pg/mL Total Protein 6.6 (6.5-8.0) g/dL Albumin 3.8 (3.5-5.0) g/dL Lipase 163 H (8-78) U/L Urine Color Yellow Urine Appearance Clear Urine pH 5.5 (5.0-9.0) Ur Specific [place] >= 1.030 H (1.005-1.025) Urine Protein Trace (Neg-Trace) mg/dL Urine Glucose (UA) >=1000 H (Negative) mg/dL Urine Ketones Negative (Negative) mg/dL Urine Blood Negative (Negative) Urine Nitrite Negative (Negative) Ur Leukocyte Esterase Small (1+) H (Negative) Urine RBC 0-2 (0-2) /HPF Urine WBC 6-10 H (0-5) /HPF Ur Squamous Epith Cells 6-10 (0-2) /HPF Urine Bacteria 1+ (None Seen) Hyaline Casts 0-2 (0-2) /LPF Influenza Type A (PCR) NEGATIVE (Negative) Influenza Type B (PCR) NEGATIVE (Negative) RSV RNA Qual (PCR) NEGATIVE (Negative) SARS-CoV-2 RNA (RT-PCR) NEGATIVE (Negative) Independent Interpretation I performed an independent interpretation of an: EKG (My interpretation the EKG normal sinus rhythm rate of 74. Pr interval 188. QTC 457. In for to T-wave in leads 1, aVL,V5-6. No STEMI) Radiology Impression Discussion of test interpretation with radiology: I have reviewed the radiologist's reading. Independent Historian Clinical information obtained from an independent historian. History obtained from or confirmed by: EMS External Record Review External record reviewed: Inpatient record, Office record, Outpatient record, Prior outpatient labs, Prior outpatient radiology, Primary care record and Outside ED record Tests considered The following testing was considered but not selected: As above Prescription Management I considered prescription management with: Pain Medication Chronic Conditions Patient?s care impacted by: Diabetes and Hypertension Critical Care Time Critical Care Time Critical Care Time: Yes Total Critical Care Time: 40 Attestation: I have personally provided critical care time exclusive of time spent on separately billable procedures. Time includes review of lab data, radiology results, discussion with consultants, and monitoring for potential decompensation. Intervention performed as documented. Discharge Plan Discharge Clinical Impression: Acute pancreatitis Patient Disposition: Admitted As Inpatient
--- NOTE | 2023-08-11 09:58 | ECG_ITS ---
Test Reason : CHEST PAIN Blood Pressure : / mmHG Vent. Rate : 074 BPM Atrial Rate : 074 BPM P-R Int : 188 ms QRS Dur : 076 ms QT Int : 412 ms P-R-T Axes : 042 035 097 degrees QTc Int : 457 ms Normal sinus rhythm Nonspecific T wave abnormality Abnormal ECG When compared with ECG of 27-JUN-2023 21:57, Nonspecific T wave abnormality, worse in Lateral leads Referred By: Roxanne Mojica Electronically Signed By:SCOTTIE MONROY
[2023-08-11 10:01] VITALS: BP 124/61; BP 140/51; PULSE 72; PULSE 80; RESP 18; TEMP 37; O2SAT 98; BMI 35.2
--- NOTE | 2023-08-11 10:16 | PC.NURSE ---
pt a&o x4, pleasant, calm, and cooperative. pt reporting chest pain that started last night. originally 8/10 but given medication by EMS (documented in triage/EMS report) and brought down to 5/10. pt sts the pain is reproducible and worsens with deep breath. pt changed over to hospital attire, EKG obtained, pt placed on bedside monitor. awaiting provider orders. call cevallos within reach. rr even/unlabored. plan of care ongoing.
[2023-08-11 10:29] LABS: MANUAL DIFF FLAG NO
[2023-08-11 10:45] LABS: Basophils Absolute Auto 0.1 X10*3/uL (0.0-0.2); Basophils Percent Auto 0.7 % (0-2); Eosinophils Absolute Auto 0.3 X10*3/uL (0.0-0.4); Eosinophils Percent Auto 3.2 % (0-4); Hemoglobin 12.5 g/dl (12.0-16.0); Imm Gran Abs Auto 0.08 X10*3/uL (0.00-0.03); Imm Gran Pct Auto 0.8 % (0.0-0.4); Lymphocytes Absolute Auto 2.2 X10*3/uL (1.2-4.9); Lymphocytes Percent Auto 21.6 % (20-40); Mean Corpuscular HGB Conc 32.1 g/dl (31.0-35.0); Mean Corpuscular Hemoglobin 27.9 pg (27.0-33.0); Mean Corpuscular Volume 87.1 fL (80.0-98.0); Mean Platelet Volume 9.9 fL (9.4-12.3); Monocytes Absolute Auto 0.7 X10*3/uL (0.1-1.2); Monocytes Percent Auto 7.1 % (2-11); Neutrophils Absolute Auto 6.7 x10*3/uL (2.0-8.3); Neutrophils Percent Auto 66.6 % (45-73); Platelet Count 243 X10*3/uL (160-400); Red Blood Count 4.48 X10*6/uL (4.20-5.50); Red Cell Distribution Width 15.7 % (11.0-16.0); White Blood Count 10.1 X10*3/uL (4.8-10.8)
[2023-08-11 10:49] LABS: Alanine Aminotransferase 12 U/L (0-31); Albumin Level 3.8 g/dL (3.5-5.0); Alkaline Phosphatase 104 U/L (39-117); Anion Gap 13 (12-20); Aspartate Amino Transferase 13 U/L (5-31); Bilirubin Direct 0.2 mg/dL (0.0-0.5); Bilirubin Total 0.5 mg/dL (0.0-1.0); Blood Urea Nitrogen 25 mg/dL (9-16); Calcium 9.3 mg/dL (8.4-10.2); Carbon Dioxide 25 mmol/L (22-29); Chloride 104 mmol/L (96-108); Creatinine Clr Calc Pharmacy 48.6; Estimated Glomerular Filt Rate 48; Glucose Random 181 mg/dL (60-115); Lipase 163 U/L (8-78); Magnesium 2.1 mg/dL (1.6-2.6); Potassium 4.3 mmol/L (3.3-5.1); Sodium 138 mmol/L (135-145); Total Protein 6.6 g/dL (6.5-8.0)
[2023-08-11 10:54] LABS: B Type Natriuretic Peptide 156 pg/mL (<100)
[2023-08-11 11:01] LABS: Troponin-I High Sensitivity 8.7 ng/L (<3.5-17.0)
[2023-08-11 11:26] LABS: Influenza A PCR NEGATIVE (Negative); Influenza B PCR NEGATIVE (Negative); Resp Syncy Virus RNA Qual PCR NEGATIVE (Negative); SARS COV2 PCR INHOUSE NEGATIVE (Negative)
[2023-08-11] MEDS: Morphine Sulfate 2 MG/ML CARTRIDGE IVPUSH ×4 (12:21→22:02)
--- NOTE | 2023-08-11 12:26 | PC.NURSE ---
20G IV placed to RAC. pt medicated per mar.
[2023-08-11] MEDS: iohexoL 350 MG/ML 100 ML INFUS..BTL IV (12:38)
[2023-08-11 14:21] VITALS: BP 120/48; PULSE 75; RESP 18; TEMP 37.1; O2SAT 97
[2023-08-11 14:25] LABS: Appearance Urine Clear; Color Urine Yellow; Glucose Urine UA >=1000 mg/dL (Negative); Leukocyte Esterase Urine Small (1+) (Negative); Nitrite Urine Negative (Negative); PH 5.5 (5.0-9.0); Specific Gravity - Urine >= 1.030 (1.005-1.025); UMIC TRIGGER UACC YES; Urine Blood Negative (Negative); Urine Ketones Negative (Negative); Urine Protein Trace mg/dL (Neg-Trace)
[2023-08-11 14:27] LABS: Bacteria Urine 1+ (None Seen); Hyaline Casts Urine 0-2 /LPF (0-2); RBC Urine 0-2 /HPF (0-2); UACC Culture Trigger YES
[2023-08-11 14:37] LABS: Troponin-I High Sensitivity 9.2 ng/L (<3.5-17.0)
--- NOTE | 2023-08-11 14:59 | PC.NURSE ---
pt c/o 03/15 epigastric pain, not chest. pt medicated per nov.
--- NOTE | 2023-08-11 15:07 | PC.NURSE ---
pt stated she hasn't eaten all day or taken her insulin. t/w checked pt's blood sugar, 112.
--- NOTE | 2023-08-11 15:56 | P.HPHOSP_ITS ---
History of Present Illness Date of Service: 08/11/23 Chief Complaint: epigastric pain 72F PMH DM, obesity, lung ca s/p lobectomy, CKD IIIB, CAD s/p stents 06/30/23, htn, crystal, hld, copd, paroxysmal afib, histoyr of PE, presented with epiagstric pain. pain woke patient up on night of presentation, 06/15, radiating to back, no sob, in ED, ekg unremarkable, troponin unremarkable, ct abd with contrast unremarkable, but lipase about 160. Review of Systems 2 Review of Systems: Yes all other systems are reviewed and are negative [facility] Medical History Pulmonary embolism Warfarin anticoagulation Obesity Dyslipidemia Hypertension CAD (coronary artery disease) half-way (current) use of insulin Diabetes type 2, uncontrolled Respiratory failure Obstructive sleep apnea COPD (chronic obstructive pulmonary disease) Family History Mother No problems noted. Father No problems noted. Brother Substance use disorder Brother Substance use disorder Surgical History History of carpal tunnel surgery History of cholecystectomy History of lobectomy of lung Status post tracheoplasty History of cardiac cath Social History Household Members: Family Household Members Other:: Lives with daughter and grandson Housing: House Do you presently have visiting nurse or other home services: Yes Alcohol intake: never Patient Tobacco Use Status: Former Tobacco user Quit Date: 1993 Smoked: 10 +/- Smoked in Last 30 Days: No e-Cigarette/Vaping Use: Never Used Use of substances other than those prescribed or required for medical reasons: No Advance Directives: Yes Advance Directives on File: Yes Advance Directives Date on File: 06/29/63 service: No Current occupational status: retired Cognitive needs: No Hearing needs: No Vision needs: No Meds Allergies Allergy/AdvReac Type Severity Reaction Status Date / Time Latex, Natural Rubber Allergy Severe blisters Verified 06/25/23 11:54 Sulfa (Sulfonamide Allergy Mild ITCHING, Verified 06/25/23 11:54 Antibiotics) rash [SULFA (SULFONAMIDE ANTIBIOTICS)] nystatin Allergy Unknown rash Verified 06/25/23 11:54 isosorbide [From Imdur] AdvReac Unknown HEADACHES, Verified 06/25/23 11:54 headache tizanidine AdvReac Unknown weakness, Verified 06/25/23 11:54 Hellucination Active Medications: Current Medications Dextrose (Dextrose 50 % 25 Gm/50 Ml Syringe) 25 gm IVPUSH Q15M PRN; Protocol PRN Reason: per Hypoglycemia Standing Ord. Glucose (Glucose Gel 15 Gm Gel..Gram.) 15 gm PO Q15M PRN; Protocol PRN Reason: per Hypoglycemia Standing Ord. Lactated Ringer's (Lr) 1,000 mls @ 100 mls/hr IVCONT .Q10H LOU Insulin Human Lispro (Insulin Lispro 100 Unit/Ml 3 Ml Vial) 0 unit SUBCUT QIDACHS LOU; Protocol Morphine Sulfate (Morphine Sulfate 2 Mg/Ml Cartridge) 2 mg IVPUSH Q3H PRN; Protocol PRN Reason: moderate pain Home Medications Medication Instructions Recorded Confirmed Last Taken Type apixaban 5 mg tablet (Eliquis) 5 mg PO BID 09/30/21 08/11/23 08/11/23 History dulaglutide 1.5 mg/0.5 mL 1 mg subcut Q7D 02/05/23 08/11/23 Unknown History subcutaneous pen injector (Trulicity) albuterol sulfate 90 mcg/actuation 2 puff inhalation Q4H PRN 06/25/23 08/11/23 Unknown History aerosol inhaler (ProAir HFA) Shortness Of Breath diltiazem HCl 300 mg 300 mg PO DAILY 06/25/23 08/11/23 08/11/23 History tablet,extended release 24 hr (Matzim [place]) buspirone 5 mg tablet 5 mg PO BID 08/11/23 08/11/23 08/11/23 History cholecalciferol (vitamin D3) 25 25 mcg PO DAILY 08/11/23 08/11/23 08/11/23 History mcg (1,000 unit) tablet citalopram 20 mg tablet 20 mg PO DAILY 08/11/23 08/11/23 08/11/23 History clopidogrel 75 mg tablet 75 mg PO DAILY 08/11/23 08/11/23 08/11/23 History insulin glargine 100 unit/mL (3 50 unit subcut BEDTIME 08/11/23 08/11/23 08/11/23 History mL) subcutaneous pen (Lantus Solostar U-100 Insulin) insulin lispro 100 unit/mL See Protocol subcut QIDACHS 08/11/23 08/11/23 08/11/23 History subcutaneous solution (Humalog U-100 Insulin) ipratropium 0.5 mg-albuterol 3 mg 3 ml inhalation BID PRN sob 08/11/23 08/11/23 Unknown History (2.5 mg base)/3 mL nebulization soln loratadine 10 mg tablet 10 mg PO DAILY 08/11/23 08/11/23 08/11/23 History melatonin 3 mg tablet 3 mg PO BEDTIME 08/11/23 08/11/23 08/11/23 History pantoprazole 40 mg tablet,delayed 40 mg PO BID 08/11/23 08/11/23 08/11/23 History release Physical Exam 2 Vital Signs and Narrative: Vital Signs: Last Vital Signs Temp 98.7 F 08/11/23 14:21 Pulse 75 08/11/23 14:21 Resp 18 08/11/23 14:21 BP 120/48 L 08/11/23 14:21 Pulse Ox 97 08/11/23 14:21 O2 Del Method Room Air 08/11/23 14:21 BMI result Body Mass Index 35.2 General: AO X 3, no acute distress Resp: CTA bilateral, no accessory muscles used CVS: S1,S2,RRR GI: soft, epigastric tender, non distended Neuro: motor grossly intact, alert Psych: appropriate affect, appropriate insight Results Labs 08/11/23 10:24 08/11/23 10:24 Labs: Laboratory Results - last 24 hr 08/11/23 08/11/23 10:24 14:20 MCV 87.1 MCH 27.9 MCHC 32.1 RDW 15.7 Plt Count 243 MPV 9.9 Immature Gran % (Auto) 0.8 H Neut % (Auto) 66.6 Lymph % (Auto) 21.6 [place] % (Auto) 7.1 Eos % (Auto) 3.2 Baso % (Auto) 0.7 Lymph # (Auto) 2.2 [place] # (Auto) 0.7 Eos # (Auto) 0.3 Baso # (Auto) 0.1 Abs Immat Gran (auto) 0.08 H Absolute Neuts (auto) 6.7 Absolute Nucleated RBC 0.000 Nucleated RBC % (auto) 0.0 Anion Gap 13 Estim Creat Clear Calc 48.6 Estimated GFR 48 Random Glucose 181 H Calcium 9.3 D Magnesium 2.1 Total Bilirubin 0.5 Direct Bilirubin 0.2 AST 13 ALT 12 Alkaline Phosphatase 104 B-Natriuretic Peptide 156 H Total Protein 6.6 Albumin 3.8 Lipase 163 H Urine Color Yellow Urine Appearance Clear Urine pH 5.5 Ur Specific [place] >= 1.030 H Urine Protein Trace Urine Glucose (UA) >=1000 H Urine Ketones Negative Urine Blood Negative Urine Nitrite Negative Ur Leukocyte Esterase Small (1+) H Urine RBC 0-2 Urine WBC 6-10 H Ur Squamous Epith Cells 6-10 Urine Bacteria 1+ Hyaline Casts 0-2 Influenza Type A (PCR) NEGATIVE Influenza Type B (PCR) NEGATIVE RSV RNA Qual (PCR) NEGATIVE SARS-CoV-2 RNA (RT-PCR) NEGATIVE Imaging Radiologist's Impressions: Impressions Chest X-Ray 08/11/23 11:02 IMPRESSION: No acute cardiopulmonary process seen. Abdomen/Pelvis CT 08/11/23 12:41 IMPRESSION: Colonic diverticulosis without diverticulitis. Mild constipation. Gallbladder is out. Small right kidney with mild cortical thinning, similar to previous exam 04/05/2022 Fleischner guidelines were followed. Assessment and Plan (1) Acute pancreatitis: Status: Acute Plan 72F PMH DM, obesity, lung ca s/p lobectomy, CKD IIIB, CAD s/p stents 06/30/23, htn, crystal, hld, copd, paroxysmal afib, history of PE, presented with epiagstric pain epigastric pain ?acute pancreatitis no obvious cause, patient s/p cholecystectomy, denies etoh ivf, clears, pain meds, advance diet as tolerated DM insulin pocs obesity weight loss CKD IIIB stable, monitor CAD asa, plavix, eliquis, hold statin for pancreatitis htn cardizem, metoprolol hold lisinopril, hctz for now paroxysmal afib cardizem, metoprolol, eliquis history of pe on eliquis full code patient with presumed acute pancreatitis, in significant pain, requiring iv opiates and aggressive hydration, will likely take atleast 2 midnights inpatient to wean off pain meds and tolerate solid diet. Quality Stroke Does the patient have a stroke diagnosis?: No VTE Prior VTE?: Yes VTE Risk Level:: Medical - moderate - high VTE Device Contraindication: Treatment Not Indicated VTE Drug Contraindication: N/A - Med Ordered
--- NOTE | 2023-08-11 16:10 | PHA.MEDREC ---
Pharmacy Consult ? Medication Reconciliation Pharmacy has completed the medication reconciliation. Patient had list of medication that match claim history. Only difference, list stated jaridance 10 mg however most recently fill history shows jaridance 25 mg on 06/15/23. Kelly Collins, PharmD
[2023-08-11] MEDS: Magnesium Hydrox/Alum Hydrox 30 ML ORAL.SUSP PO (16:35)
[2023-08-11] MEDS: Famotidine/PF 20 MG/2 ML VIAL IVPUSH (16:35)
[2023-08-11 17:00] VITALS: BP 129/40; PULSE 74; RESP 18; O2SAT 97
[2023-08-11 18:08] LABS: Glucose, Whole Blood 112 mg/dL (60-115)
[2023-08-11] MEDS: Omeprazole 20 MG CAPSULE.DR PO (18:41)
[2023-08-11 18:43] LABS: Glucose, Whole Blood 128 mg/dL (60-115)
[2023-08-11] MEDS: Lactated Ringers 1,000 ML 100 ML IVCONT (18:48)
--- NOTE | 2023-08-11 19:19 | PC.NURSE ---
pt consumed clear liquid tray with satisfaction. fluids running and pt medicated per mar. awaiting transport to inpatient room.
[2023-08-11 20:50] VITALS: BP 132/40; PULSE 78; RESP 17; TEMP 36.8; O2SAT 97
[2023-08-11 21:14] VITALS: BP 162/87; PULSE 88; RESP 18; TEMP 36.4; O2SAT 95
[2023-08-11 21:34] LABS: Glucose, Whole Blood 145 mg/dL (60-115)
[2023-08-11] MEDS: Melatonin 3 MG TABLET PO (21:59)
[2023-08-11] MEDS: Metoprolol Tartrate 50 MG TABLET PO (21:59)
[2023-08-11] MEDS: Insulin Glargine,Hum.rec.anlog 100 UNIT/ML 10 ML VIAL 25 UNIT SUBCUT (22:00)
[2023-08-11] MEDS: busPIRone HCl 5 MG TABLET PO (22:00)
[2023-08-11] MEDS: Apixaban 5 MG TABLET PO (22:00)
[2023-08-11] MEDS: ondansetron HCL 4 MG/2 ML VIAL IVPUSH (22:02)
[2023-08-12] MEDS: Morphine Sulfate 2 MG/ML CARTRIDGE IVPUSH ×3 (01:22→23:04)
[2023-08-12] MEDS: Prochlorperazine Edisylate 10 MG/2 ML VIAL IVPUSH (01:34)
[2023-08-12] MEDS: Omeprazole 20 MG CAPSULE.DR PO ×2 (06:09→16:58)
[2023-08-12] MEDS: Lactated Ringers 1,000 ML 100 ML IVCONT ×2 (06:09→15:21)
[2023-08-12 06:37] LABS: Hematocrit 34.5 % (37.0-47.0); Hemoglobin 11.1 g/dl (12.0-16.0); Mean Corpuscular HGB Conc 32.2 g/dl (31.0-35.0); Mean Corpuscular Hemoglobin 28.5 pg (27.0-33.0); Mean Corpuscular Volume 88.7 fL (80.0-98.0); Mean Platelet Volume 9.9 fL (9.4-12.3); Platelet Count 207 X10*3/uL (160-400); Red Blood Count 3.89 X10*6/uL (4.20-5.50); White Blood Count 8.1 X10*3/uL (4.8-10.8)
[2023-08-12 06:53] LABS: Alanine Aminotransferase 13 U/L (0-31); Albumin Level 3.4 g/dL (3.5-5.0); Alkaline Phosphatase 93 U/L (39-117); Anion Gap 13 (12-20); Aspartate Amino Transferase 15 U/L (5-31); Bilirubin Direct 0.2 mg/dL (0.0-0.5); Bilirubin Total 0.5 mg/dL (0.0-1.0); Blood Urea Nitrogen 24 mg/dL (9-16); Calcium 8.7 mg/dL (8.4-10.2); Carbon Dioxide 26 mmol/L (22-29); Chloride 103 mmol/L (96-108); Estimated Glomerular Filt Rate 39; Glucose Fasting 144 mg/dL (60-99); Lipase 21 U/L (8-78); Magnesium 2.1 mg/dL (1.6-2.6); Potassium 4.2 mmol/L (3.3-5.1); Sodium 138 mmol/L (135-145); Total Protein 5.8 g/dL (6.5-8.0)
[2023-08-12 07:19] VITALS: BP 117/53; PULSE 71; RESP 20; TEMP 36.2; O2SAT 93
[2023-08-12 07:49] LABS: Glucose, Whole Blood 141 mg/dL (60-115)
[2023-08-12] MEDS: Loratadine 10 MG TABLET PO (08:08)
[2023-08-12] MEDS: Empagliflozin 25 MG TABLET PO (08:08)
[2023-08-12] MEDS: Cholecalciferol (Vitamin D3) 25 MCG TABLET PO (08:08)
[2023-08-12] MEDS: Clopidogrel Bisulfate 75 MG TABLET PO (08:08)
[2023-08-12] MEDS: Apixaban 5 MG TABLET PO ×2 (08:08→21:46)
[2023-08-12] MEDS: Escitalopram Oxalate 10 MG TABLET PO (08:08)
[2023-08-12] MEDS: busPIRone HCl 5 MG TABLET PO ×2 (08:08→21:47)
[2023-08-12] MEDS: Metoprolol Tartrate 50 MG TABLET PO ×2 (08:09→21:46)
[2023-08-12] MEDS: dilTIAZem HCL CD 300 MG CAP.ER.24H PO (08:09)
[2023-08-12] MEDS: Prochlorperazine Edisylate 10 MG/2 ML VIAL 5 MG IVPUSH (10:38)
--- NOTE | 2023-08-12 10:38 | HO.PM.IMPN ---
Subjective Subjective Date of Service: 08/12/23 Interval History: ongoing nausea Physical Exam Vital Signs: Vital Signs: Last Vital Signs Temp 97.1 F 08/12/23 07:19 Pulse 71 08/12/23 07:19 Resp 20 08/12/23 07:19 BP 117/53 L 08/12/23 07:19 Pulse Ox 93 08/12/23 07:19 O2 Del Method Room Air 08/12/23 07:19 BMI result Body Mass Index 35.2 General: AO X 3, no acute distress Resp: CTA bilateral, no accessory muscles used CVS: S1,S2,RRR GI: soft, epigastric tender, non distended Neuro: motor grossly intact, alert Psych: appropriate affect, appropriate insight Objective Data Active Medications Albuterol Sulfate (Albuterol Sulfate 90 Mcg 8 Gm Inhaler) 2 puff INHALE Q4H PRN PRN Reason: Shortness Of Breath Albuterol/Ipratropium (Albuterol/Iprat 2.5/0.5mg 3 Ml Ampul.Neb) 3 ml INHALE BID PRN PRN Reason: sob Apixaban (Apixaban 5 Mg Tablet) 5 mg PO BID [facility] Last Admin: 08/12/23 08:08 Dose: 5 mg Documented By: EVAN Buspirone HCl (Buspirone Hcl 5 Mg Tablet) 5 mg PO BID [facility] Last Admin: 08/12/23 08:08 Dose: 5 mg Documented By: EVAN Clopidogrel Bisulfate (Clopidogrel Bisulfate 75 Mg Tablet) 75 mg PO DAILY [facility] Last Admin: 08/12/23 08:08 Dose: 75 mg Documented By: EVAN Dextrose (Dextrose 50 % 25 Gm/50 Ml Syringe) 25 gm IVPUSH Q15M PRN; Protocol PRN Reason: per Hypoglycemia Standing Ord. Diltiazem HCl (Diltiazem Hcl Cd 300 Mg Cap.Er.24h) 300 mg PO DAILY [facility]; Protocol Last Admin: 08/12/23 08:09 Dose: 300 mg Documented By: EVAN Empagliflozin (Empagliflozin 25 Mg Tablet) 25 mg PO DAILY [facility] Last Admin: 08/12/23 08:08 Dose: 25 mg Documented By: EVAN Escitalopram Oxalate (Escitalopram Oxalate 10 Mg Tablet) 10 mg PO DAILY [facility] Last Admin: 08/12/23 08:08 Dose: 10 mg Documented By: EVAN Glucose (Glucose Gel 15 Gm Gel..Gram.) 15 gm PO Q15M PRN; Protocol PRN Reason: per Hypoglycemia Standing Ord. Lactated Ringer's (Lr) 1,000 mls @ 100 mls/hr IVCONT .Q10H [facility] Last Admin: 08/12/23 06:09 Dose: 100 mls/hr Documented By: JAYME Insulin Glargine (Insulin Glargine,Hum.Rec.Anlog 100 Unit/Ml 10 Ml Vial) 25 unit SUBCUT BEDTIME [facility] Last Admin: 08/11/23 22:00 Dose: 25 unit Documented By: VERO Insulin Human Lispro (Insulin Lispro 100 Unit/Ml 3 Ml Vial) 0 unit SUBCUT QIDACHS [facility]; Protocol Last Admin: 08/12/23 08:03 Dose: Not Given Documented By: EVAN Non-Admin Reason: No Insulin Coverage Loratadine (Loratadine 10 Mg Tablet) 10 mg PO DAILY [facility] Last Admin: 08/12/23 08:08 Dose: 10 mg Documented By: EVAN Melatonin (Melatonin 3 Mg Tablet) 3 mg PO BEDTIME [facility] Last Admin: 08/11/23 21:59 Dose: 3 mg Documented By: VERO Metoprolol Tartrate (Metoprolol Tartrate 50 Mg Tablet) 50 mg PO BID [facility]; Protocol Last Admin: 08/12/23 08:09 Dose: 50 mg Documented By: EVAN Morphine Sulfate (Morphine Sulfate 2 Mg/Ml Cartridge) 2 mg IVPUSH Q3H PRN; Protocol PRN Reason: moderate pain Last Admin: 08/12/23 01:22 Dose: 2 mg Documented By: JAYME Omeprazole (Omeprazole 20 Mg Capsule.) 20 mg PO BID@0630,1630 [facility] Last Admin: 08/12/23 06:09 Dose: 20 mg Documented By: JAYME Ondansetron HCl (Ondansetron Hcl 4 Mg/2 Ml Vial) 4 mg IVPUSH Q8H PRN PRN Reason: Nausea and Vomiting Last Admin: 08/11/23 22:02 Dose: 4 mg Documented By: VERO Prochlorperazine Edisylate (Prochlorperazine Edisylate 10 Mg/2 Ml Vial) 5 mg IVPUSH Q4H PRN PRN Reason: Nausea and Vomiting Sodium Chloride (0.9 % Sodium Chloride Flush 3 Ml Syringe) 3 ml IVFLUSH QSHIFT [facility] Last Admin: 08/12/23 07:53 Dose: Not Given Documented By: EVAN Non-Admin Reason: IV Running Vitamin D (Cholecalciferol (Vitamin D3) 25 Mcg Tablet) 25 mcg PO DAILY [facility] Last Admin: 08/12/23 08:08 Dose: 25 mcg Documented By: EVAN Labs 08/12/23 06:06 08/12/23 06:06 Labs: Laboratory Results - last 24 hr 08/11/23 08/11/23 08/11/23 10:24 14:20 15:05 MCV 87.1 MCH 27.9 MCHC 32.1 RDW 15.7 Plt Count 243 MPV 9.9 Immature Gran % (Auto) 0.8 H Neut % (Auto) 66.6 Lymph % (Auto) 21.6 [place] % (Auto) 7.1 Eos % (Auto) 3.2 Baso % (Auto) 0.7 Lymph # (Auto) 2.2 [place] # (Auto) 0.7 Eos # (Auto) 0.3 Baso # (Auto) 0.1 Abs Immat Gran (auto) 0.08 H Absolute Neuts (auto) 6.7 Absolute Nucleated RBC 0.000 Nucleated RBC % (auto) 0.0 Anion Gap 13 Estim Creat Clear Calc 48.6 Estimated GFR 48 POC Glucose 112 Random Glucose 181 H Fasting Glucose Calcium 9.3 D Magnesium 2.1 Total Bilirubin 0.5 Direct Bilirubin 0.2 AST 13 ALT 12 Alkaline Phosphatase 104 B-Natriuretic Peptide 156 H Total Protein 6.6 Albumin 3.8 Lipase 163 H Urine Color Yellow Urine Appearance Clear Urine pH 5.5 Ur Specific [place] >= 1.030 H Urine Protein Trace Urine Glucose (UA) >=1000 H Urine Ketones Negative Urine Blood Negative Urine Nitrite Negative Ur Leukocyte Esterase Small (1+) H Urine RBC 0-2 Urine WBC 6-10 H Ur Squamous Epith Cells 6-10 Urine Bacteria 1+ Hyaline Casts 0-2 Influenza Type A (PCR) NEGATIVE Influenza Type B (PCR) NEGATIVE RSV RNA Qual (PCR) NEGATIVE SARS-CoV-2 RNA (RT-PCR) NEGATIVE 08/11/23 08/11/2308/12/23 18:38 21:30 06:06 MCV 88.7 MCH 28.5 MCHC 32.2 RDW 16.0 Plt Count 207 MPV 9.9 Immature Gran % (Auto) Neut % (Auto) Lymph % (Auto) [place] % (Auto) Eos % (Auto) Baso % (Auto) Lymph # (Auto) [place] # (Auto) Eos # (Auto) Baso # (Auto) Abs Immat Gran (auto) Absolute Neuts (auto) Absolute Nucleated RBC 0.000 Nucleated RBC % (auto) 0.0 Anion Gap 13 Estim Creat Clear Calc 41.0 Estimated GFR 39 POC Glucose 128 H 145 H Random Glucose Fasting Glucose 144 H Calcium 8.7 D Magnesium 2.1 Total Bilirubin 0.5 Direct Bilirubin 0.2 AST 15 ALT 13 Alkaline Phosphatase 93 B-Natriuretic Peptide Total Protein 5.8 L Albumin 3.4 L Lipase 21 Urine Color Urine Appearance Urine pH Ur Specific [place] Urine Protein Urine Glucose (UA) Urine Ketones Urine Blood Urine Nitrite Ur Leukocyte Esterase Urine RBC Urine WBC Ur Squamous Epith Cells Urine Bacteria Hyaline Casts Influenza Type A (PCR) Influenza Type B (PCR) RSV RNA Qual (PCR) SARS-CoV-2 RNA (RT-PCR) 08/12/23 07:23 MCV MCH MCHC RDW Plt Count MPV Immature Gran % (Auto) Neut % (Auto) Lymph % (Auto) [place] % (Auto) Eos % (Auto) Baso % (Auto) Lymph # (Auto) [place] # (Auto) Eos # (Auto) Baso # (Auto) Abs Immat Gran (auto) Absolute Neuts (auto) Absolute Nucleated RBC Nucleated RBC % (auto) Anion Gap Estim Creat Clear Calc Estimated GFR POC Glucose 141 H Random Glucose Fasting Glucose Calcium Magnesium Total Bilirubin Direct Bilirubin AST ALT Alkaline Phosphatase B-Natriuretic Peptide Total Protein Albumin Lipase Urine Color Urine Appearance Urine pH Ur Specific [place] Urine Protein Urine Glucose (UA) Urine Ketones Urine Blood Urine Nitrite Ur Leukocyte Esterase Urine RBC Urine WBC Ur Squamous Epith Cells Urine Bacteria Hyaline Casts Influenza Type A (PCR) Influenza Type B (PCR) RSV RNA Qual (PCR) SARS-CoV-2 RNA (RT-PCR) Assessment and Plan (1) Acute pancreatitis: Status: Acute Plan 72F PMH DM, obesity, lung ca s/p lobectomy, CKD IIIB, CAD s/p stents 06/30/23, htn, crystal, hld, copd, paroxysmal afib, history of PE, presented with epiagstric pain epigastric pain ?acute pancreatitis no obvious cause, patient s/p cholecystectomy, denies etoh ivf, advance to solids pain control lipase improved DM insulin pocs obesity weight loss CKD IIIB stable, monitor CAD asa, plavix, eliquis, hold statin for pancreatitis htn cardizem, metoprolol hold lisinopril, hctz for now paroxysmal afib cardizem, metoprolol, eliquis history of pe on eliquis full code reason for continued hospitalization:not tolerating solids Quality Stroke Does the patient have a stroke diagnosis?: No VTE Prior VTE?: Yes VTE Risk Level:: Medical - moderate - high VTE Device Contraindication: Treatment Not Indicated VTE Drug Contraindication: N/A - Med Ordered
[2023-08-12 11:25] LABS: Glucose, Whole Blood 205 mg/dL (60-115)
[2023-08-12] MEDS: Insulin Lispro 100 UNIT/ML 3 ML VIAL SUBCUT ×3 (11:45→21:47)
[2023-08-12 15:19] VITALS: BP 134/61; PULSE 61; RESP 18; TEMP 36.6; O2SAT 97
--- NOTE | 2023-08-12 16:11 | MHC.CM.PN ---
PT REPORTS SHE LIVES WITH HER DAUGHTER AND GRANDCHILD SHE IS INDEPENDENT WITH CARE AND HAS NO SERVICES PT HAS A CPAP BUT SAYS IT DOES NOT WORK HCP ON FILE PCP: DEMETRI HASKINS IMM DELIVERED DCP: HOME NO SERVICES VIA FAMILY TRANSPORT
[2023-08-12 16:26] LABS: Glucose, Whole Blood 165 mg/dL (60-115)
[2023-08-12 19:05] VITALS: BP 143/63; PULSE 62; RESP 20; TEMP 36.6; O2SAT 95
[2023-08-12 20:10] LABS: Glucose, Whole Blood 159 mg/dL (60-115)
[2023-08-12] MEDS: Melatonin 3 MG TABLET PO (21:46)
[2023-08-12] MEDS: Insulin Glargine,Hum.rec.anlog 100 UNIT/ML 10 ML VIAL 25 UNIT SUBCUT (21:58)
[2023-08-12] MEDS: Albuterol/Iprat 2.5/0.5MG 3 ML AMPUL.NEB INHALE (22:08)
[2023-08-12 22:09] VITALS: PULSE 67; RESP 16; O2SAT 96
[2023-08-12 23:43] VITALS: BP 128/59; PULSE 62; RESP 18; TEMP 36.1; O2SAT 93
[2023-08-13] VITALS (7 sets, daily range): BP systolic 127–165; BP diastolic 60–72; PULSE 55–74; RESP 17–20; TEMP 36.2–36.6; O2SAT 93–96
--- NOTE | 2023-08-13 | ECG_ITS ---
Test Reason : CHEST PAIN Blood Pressure : / mmHG Vent. Rate : 064 BPM Atrial Rate : 064 BPM P-R Int : 194 ms QRS Dur : 082 ms QT Int : 418 ms P-R-T Axes : 060 039 066 degrees QTc Int : 431 ms Normal sinus rhythm Nonspecific T wave abnormality Abnormal ECG When compared with ECG of 11-AUG-2023 10:05, Nonspecific ST and T wave abnormality improved Referred By: Adam Worley Electronically Signed By:SCOTTIE MONROY
[2023-08-13] MEDS: Lactated Ringers 1,000 ML 100 ML IVCONT ×3 (01:11→19:10)
[2023-08-13] MEDS: Melatonin 3 MG TABLET 6 MG PO ×2 (02:52→20:35)
[2023-08-13] MEDS: Omeprazole 20 MG CAPSULE.DR PO ×2 (05:23→15:43)
[2023-08-13] MEDS: Morphine Sulfate 2 MG/ML CARTRIDGE IVPUSH ×4 (05:23→20:27)
[2023-08-13 06:25] LABS: Hemoglobin 10.7 g/dl (12.0-16.0); Mean Corpuscular HGB Conc 32.4 g/dl (31.0-35.0); Mean Corpuscular Hemoglobin 28.8 pg (27.0-33.0); Mean Corpuscular Volume 88.9 fL (80.0-98.0); Mean Platelet Volume 9.7 fL (9.4-12.3); Platelet Count 205 X10*3/uL (160-400); Red Blood Count 3.71 X10*6/uL (4.20-5.50); Red Cell Distribution Width 15.9 % (11.0-16.0); White Blood Count 7.3 X10*3/uL (4.8-10.8)
[2023-08-13 06:41] LABS: Alanine Aminotransferase 11 U/L (0-31); Albumin Level 3.4 g/dL (3.5-5.0); Alkaline Phosphatase 93 U/L (39-117); Anion Gap 12 (12-20); Aspartate Amino Transferase 11 U/L (5-31); Bilirubin Direct 0.1 mg/dL (0.0-0.5); Bilirubin Total 0.4 mg/dL (0.0-1.0); Blood Urea Nitrogen 22 mg/dL (9-16); Calcium 8.6 mg/dL (8.4-10.2); Carbon Dioxide 29 mmol/L (22-29); Chloride 105 mmol/L (96-108); Estimated Glomerular Filt Rate 38; Glucose Fasting 122 mg/dL (60-99); Magnesium 2.2 mg/dL (1.6-2.6); Potassium 4.2 mmol/L (3.3-5.1); Sodium 142 mmol/L (135-145); Total Protein 5.8 g/dL (6.5-8.0)
[2023-08-13 07:28] LABS: Glucose, Whole Blood 117 mg/dL (60-115)
[2023-08-13] MEDS: Cholecalciferol (Vitamin D3) 25 MCG TABLET PO (08:42)
[2023-08-13] MEDS: busPIRone HCl 5 MG TABLET PO ×2 (08:42→20:29)
[2023-08-13] MEDS: Escitalopram Oxalate 10 MG TABLET PO (08:42)
[2023-08-13] MEDS: Metoprolol Tartrate 50 MG TABLET PO ×2 (08:42→20:29)
[2023-08-13] MEDS: dilTIAZem HCL CD 300 MG CAP.ER.24H PO (08:42)
[2023-08-13] MEDS: Clopidogrel Bisulfate 75 MG TABLET PO (08:43)
[2023-08-13] MEDS: Empagliflozin 25 MG TABLET PO (08:43)
[2023-08-13] MEDS: Loratadine 10 MG TABLET PO (08:43)
[2023-08-13] MEDS: Apixaban 5 MG TABLET PO ×2 (08:43→20:29)
--- NOTE | 2023-08-13 09:50 | HO.PM.IMPN ---
Subjective Subjective Date of Service: 08/13/23 Interval History: reports improvement of epigastric pian, recurrence of chest pressure Physical Exam Vital Signs: Vital Signs: Last Vital Signs Temp 97.1 F 08/13/23 07:08 Pulse 74 08/13/23 07:08 Resp 18 08/13/23 07:08 BP 165/72 H 08/13/23 07:08 Pulse Ox 93 08/13/23 07:08 O2 Del Method Room Air 08/13/23 07:08 BMI result Body Mass Index 35.2 General: AO X 3, no acute distress Resp: CTA bilateral, no accessory muscles used CVS: S1,S2,RRR GI: soft, non tender, non distended Neuro: motor grossly intact, alert Psych: appropriate affect, appropriate insight Objective Data Active Medications Albuterol Sulfate (Albuterol Sulfate 90 Mcg 8 Gm Inhaler) 2 puff INHALE Q4H PRN PRN Reason: Shortness Of Breath Albuterol/Ipratropium (Albuterol/Iprat 2.5/0.5mg 3 Ml Ampul.Neb) 3 ml INHALE BID PRN PRN Reason: sob Last Admin: 08/12/23 22:08 Dose: 3 ml Documented By: JUANITO Apixaban (Apixaban 5 Mg Tablet) 5 mg PO BID REPLACED BY [facility] Last Admin: 08/13/23 08:43 Dose: 5 mg Documented By: MARYBETH Buspirone HCl (Buspirone Hcl 5 Mg Tablet) 5 mg PO BID REPLACED BY [facility] Last Admin: 08/13/23 08:42 Dose: 5 mg Documented By: MARYBETH Clopidogrel Bisulfate (Clopidogrel Bisulfate 75 Mg Tablet) 75 mg PO DAILY REPLACED BY [facility] Last Admin: 08/13/23 08:43 Dose: 75 mg Documented By: MARYBETH Dextrose (Dextrose 50 % 25 Gm/50 Ml Syringe) 25 gm IVPUSH Q15M PRN; Protocol PRN Reason: per Hypoglycemia Standing Ord. Diltiazem HCl (Diltiazem Hcl Cd 300 Mg Cap.Er.24h) 300 mg PO DAILY REPLACED BY [facility]; Protocol Last Admin: 08/13/23 08:42 Dose: 300 mg Documented By: MARYBETH Empagliflozin (Empagliflozin 25 Mg Tablet) 25 mg PO DAILY REPLACED BY [facility] Last Admin: 08/13/23 08:43 Dose: 25 mg Documented By: MARYBETH Escitalopram Oxalate (Escitalopram Oxalate 10 Mg Tablet) 10 mg PO DAILY REPLACED BY [facility] Last Admin: 08/13/23 08:42 Dose: 10 mg Documented By: MARYBETH Glucose (Glucose Gel 15 Gm Gel..Gram.) 15 gm PO Q15M PRN; Protocol PRN Reason: per Hypoglycemia Standing Ord. Lactated Ringer's (Lr) 1,000 mls @ 100 mls/hr IVCONT .Q10H REPLACED BY [facility] Last Admin: 08/13/23 01:11 Dose: 100 mls/hr Documented By: COLTEN Insulin Glargine (Insulin Glargine,Hum.Rec.Anlog 100 Unit/Ml 10 Ml Vial) 25 unit SUBCUT BEDTIME REPLACED BY [facility] Last Admin: 08/12/23 21:58 Dose: 25 unit Documented By: COLTEN Insulin Human Lispro (Insulin Lispro 100 Unit/Ml 3 Ml Vial) 0 unit SUBCUT QIDACHS REPLACED BY [facility]; Protocol Last Admin: 08/13/23 08:36 Dose: Not Given Documented By: MARYBETH Non-Admin Reason: No Insulin Coverage Loratadine (Loratadine 10 Mg Tablet) 10 mg PO DAILY REPLACED BY [facility] Last Admin: 08/13/23 08:43 Dose: 10 mg Documented By: MARYBETH Melatonin (Melatonin 3 Mg Tablet) 6 mg PO BEDTIME PRN PRN Reason: Sleep Last Admin: 08/13/23 02:52 Dose: 6 mg Documented By: COLTEN Metoprolol Tartrate (Metoprolol Tartrate 50 Mg Tablet) 50 mg PO BID REPLACED BY [facility]; Protocol Last Admin: 08/13/23 08:42 Dose: 50 mg Documented By: MARYBETH Morphine Sulfate (Morphine Sulfate 2 Mg/Ml Cartridge) 2 mg IVPUSH Q3H PRN; Protocol PRN Reason: moderate pain Last Admin: 08/13/23 05:23 Dose: 2 mg Documented By: COLTEN Omeprazole (Omeprazole 20 Mg [place].) 20 mg PO BID@0630,1630 REPLACED BY [facility] Last Admin: 08/13/23 05:23 Dose: 20 mg Documented By: COLTEN Ondansetron HCl (Ondansetron Hcl 4 Mg/2 Ml Vial) 4 mg IVPUSH Q8H PRN PRN Reason: Nausea and Vomiting Last Admin: 08/11/23 22:02 Dose: 4 mg Documented By: VERO Prochlorperazine Edisylate (Prochlorperazine Edisylate 10 Mg/2 Ml Vial) 5 mg IVPUSH Q4H PRN PRN Reason: Nausea and Vomiting Last Admin: 08/12/23 10:38 Dose: 5 mg Documented By: EVAN Sodium Chloride (0.9 % Sodium Chloride Flush 3 Ml Syringe) 3 ml IVFLUSH QSHIFT REPLACED BY [facility] Last Admin: 08/13/23 08:43 Dose: Not Given Documented By: MARYBETH Non-Admin Reason: IV Running Vitamin D (Cholecalciferol (Vitamin D3) 25 Mcg Tablet) 25 mcg PO DAILY REPLACED BY [facility] Last Admin: 08/13/23 08:42 Dose: 25 mcg Documented By: MARYBETH Labs 08/13/23 06:13 08/13/23 06:13 Labs: Laboratory Results - last 24 hr 08/12/23 08/12/23 08/12/23 11:15 16:19 19:56 MCV MCH MCHC RDW Plt Count MPV Absolute Nucleated RBC Nucleated RBC % (auto) Anion Gap Estim Creat Clear Calc Estimated GFR POC Glucose 205 H 165 H 159 H Fasting Glucose Calcium Magnesium Total Bilirubin Direct Bilirubin AST ALT Alkaline Phosphatase Total Protein Albumin 08/13/23 08/13/23 06:13 07:14 MCV 88.9 MCH 28.8 MCHC 32.4 RDW 15.9 Plt Count 205 MPV 9.7 Absolute Nucleated RBC 0.000 Nucleated RBC % (auto) 0.0 Anion Gap 12 Estim Creat Clear Calc 40.0 Estimated GFR 38 POC Glucose 117 H Fasting Glucose 122 H Calcium 8.6 Magnesium 2.2 Total Bilirubin 0.4 Direct Bilirubin 0.1 AST 11 ALT 11 Alkaline Phosphatase 93 Total Protein 5.8 L Albumin 3.4 L Microbiology Microbiology Results: Microbiology 08/11/23 Unknown Urine Culture - Preliminary Urine clean catch - Urine maldonado top Culture too young to evaluate. Assessment and Plan (1) Acute pancreatitis: Status: Acute Plan 72F PMH DM, obesity, lung ca s/p lobectomy, CKD IIIB, CAD s/p stents 06/30/23, htn, crystal, hld, copd, paroxysmal afib, history of PE, presented with epiagstric pain epigastric pain ?acute pancreatitis no obvious cause, patient s/p cholecystectomy, denies etoh now tolerating solids, less tender lipase improved ?PUD - gi eval chest pressure cardio eval follow up repeat troponin, ekg DM insulin pocs obesity weight loss CKD IIIB stable, monitor CAD asa, plavix, eliquis, hold statin for pancreatitis htn cardizem, metoprolol hold lisinopril, hctz for now paroxysmal afib cardizem, metoprolol, eliquis history of pe on eliquis full code reason for continued hospitalization:ongoing chest pressure Quality Stroke Does the patient have a stroke diagnosis?: No VTE Prior VTE?: Yes VTE Risk Level:: Medical - moderate - high VTE Device Contraindication: Treatment Not Indicated VTE Drug Contraindication: N/A - Med Ordered
--- NOTE | 2023-08-13 10:05 | P.CONCA_ITS ---
History of Present Illness History of Present Illness Date of Service: 08/13/23 Chief complaint: pancreatitis Narrative: This is a cardiology consultation regarding chest and abdominal pain. She was recently seen by me about 2 months ago. At that time, she had very high troponin level of 12/1999. She was complaining of chest pains. We transferred to [facility] where she underwent cardiac catheterization. That revealed mid circumflex 99% stenosis thought to be the culprit lesion. She underwent PCI. Otherwise, left main was normal. LAD/RCA with only minimal irregularities. Patient states that she has not been feeling good for the last couple of days. She has been having epigastric pain which is essentially constant. She states this pain is going on all day all night with no difference whatsoever. However, when she is moving, turning extra she states the pain is more. Somewhat sharp in nature. On review of records, it seems she was also in [facility] emergency room few weeks back again for the same reason. Currently there is concern of could be cardiac and hence we are asked to see her. However, troponins are unremarkable. Review of Systems 2 Review of Systems: Yes all other systems are reviewed and are negative Constitutional: Constitutional: Reports as per HPI and Reports no additional constitutional complaints Eyes: Eyes: Reports as per HPI and Denies no additional eye complaints ENT: Denies system reviewed and no additional complaints, except as documented and Reports as per HPI Cardiovascular: Cardiovascular: Reports as per HPI, Reports no additional cardiovascular complaints, Denies acrocyanosis, Denies cool extremities, Denies chest pain, Denies leg edema, Denies lightheadedness, Denies palpitations and Denies dyspnea Respiratory: Respiratory: Reports as per HPI, Denies no additional respiratory complaints and Denies dyspnea Gastrointestinal: Gastrointestinal: Reports as per HPI and Denies no additional gastrointestinal complaints Genitourinary: Genitourinary: Reports as per HPI Musculoskeletal: Musculoskeletal: Reports no additional musculoskeletal complaints and Reports as per HPI Integumentary/Breasts: Skin/Breast: Reports system reviewed and no additional complaints, except as docu Neurologic: Reports system reviewed and no additional complaints, except as documented and Reports as per HPI Psychiatric: Psychiatric: Reports no additional psychiatric complaints and Reports as per HPI Endocrine: Endocrine: Reports no additional endocrine complaints, Reports as per HPI and Denies palpitations Hematologic/Lymphatic: Hematologic/Lymphatic: Reports no additional hematologic/lymphatic complaints and Reports as per HPI Allergic/Immunologic: Allergic/Immunologic: Reports no additional allergic/immunologic complaints and Reports as per HPI PMFSH Past Medical History Medical History Pulmonary embolism Warfarin anticoagulation Obesity Dyslipidemia Hypertension CAD (coronary artery disease) MCFP (current) use of insulin Diabetes type 2, uncontrolled Respiratory failure Obstructive sleep apnea COPD (chronic obstructive pulmonary disease) Family History Family History Mother No problems noted. Father No problems noted. Brother Substance use disorder Brother Substance use disorder Surgical History Surgical History History of carpal tunnel surgery History of cholecystectomy History of lobectomy of lung Status post tracheoplasty History of cardiac cath Social History Social History Household Members: Family Household Members Other:: Lives with daughter and grandson Housing: House Do you presently have visiting nurse or other home services: No Alcohol intake: never Patient Tobacco Use Status: Former Tobacco user Quit Date: 1993 Smoked: 5 years e-Cigarette/Vaping Use: Never Used Advance Directives Date on File: 06/29/63 service: No Current occupational status: retired Cognitive needs: No Hearing needs: No Vision needs: No Meds Allergies Allergy/AdvReac Type Severity Reaction Status Date / Time Latex, Natural Rubber Allergy Severe blisters Verified 06/25/23 11:54 Sulfa (Sulfonamide Allergy Mild ITCHING, Verified 06/25/23 11:54 Antibiotics) rash [SULFA (SULFONAMIDE ANTIBIOTICS)] nystatin Allergy Unknown rash Verified 06/25/23 11:54 isosorbide [From Imdur] AdvReac Unknown HEADACHES, Verified 06/25/23 11:54 headache tizanidine AdvReac Unknown weakness, Verified 06/25/23 11:54 Hellucination Active Medications: Current Medications Albuterol Sulfate (Albuterol Sulfate 90 Mcg 8 Gm Inhaler) 2 puff INHALE Q4H PRN PRN Reason: Shortness Of Breath Albuterol/Ipratropium (Albuterol/Iprat 2.5/0.5mg 3 Ml Ampul.Neb) 3 ml INHALE BID PRN PRN Reason: sob Last Admin: 08/12/23 22:08 Dose: 3 ml Apixaban (Apixaban 5 Mg Tablet) 5 mg PO BID [facility] Last Admin: 08/13/23 08:43 Dose: 5 mg Buspirone HCl (Buspirone Hcl 5 Mg Tablet) 5 mg PO BID [facility] Last Admin: 08/13/23 08:42 Dose: 5 mg Clopidogrel Bisulfate (Clopidogrel Bisulfate 75 Mg Tablet) 75 mg PO DAILY [facility] Last Admin: 08/13/23 08:43 Dose: 75 mg Dextrose (Dextrose 50 % 25 Gm/50 Ml Syringe) 25 gm IVPUSH Q15M PRN; Protocol PRN Reason: per Hypoglycemia Standing Ord. Diltiazem HCl (Diltiazem Hcl Cd 300 Mg Cap.Er.24h) 300 mg PO DAILY [facility]; Protocol Last Admin: 08/13/23 08:42 Dose: 300 mg Empagliflozin (Empagliflozin 25 Mg Tablet) 25 mg PO DAILY [facility] Last Admin: 08/13/23 08:43 Dose: 25 mg Escitalopram Oxalate (Escitalopram Oxalate 10 Mg Tablet) 10 mg PO DAILY [facility] Last Admin: 08/13/23 08:42 Dose: 10 mg Glucose (Glucose Gel 15 Gm Gel..Gram.) 15 gm PO Q15M PRN; Protocol PRN Reason: per Hypoglycemia Standing Ord. Lactated Ringer's (Lr) 1,000 mls @ 100 mls/hr IVCONT .Q10H [facility] Last Admin: 08/13/23 09:57 Dose: 100 mls/hr Insulin Glargine (Insulin Glargine,Hum.Rec.Anlog 100 Unit/Ml 10 Ml Vial) 25 unit SUBCUT BEDTIME [facility] Last Admin: 08/12/23 21:58 Dose: 25 unit Insulin Human Lispro (Insulin Lispro 100 Unit/Ml 3 Ml Vial) 0 unit SUBCUT QIDACHS [facility]; Protocol Last Admin: 08/13/23 08:36 Dose: Not Given Loratadine (Loratadine 10 Mg Tablet) 10 mg PO DAILY [facility] Last Admin: 08/13/23 08:43 Dose: 10 mg Melatonin (Melatonin 3 Mg Tablet) 6 mg PO BEDTIME PRN PRN Reason: Sleep Last Admin: 08/13/23 02:52 Dose: 6 mg Metoprolol Tartrate (Metoprolol Tartrate 50 Mg Tablet) 50 mg PO BID [facility]; Protocol Last Admin: 08/13/23 08:42 Dose: 50 mg Morphine Sulfate (Morphine Sulfate 2 Mg/Ml Cartridge) 2 mg IVPUSH Q3H PRN; Protocol PRN Reason: moderate pain Last Admin: 08/13/23 09:55 Dose: 2 mg Omeprazole (Omeprazole 20 Mg Capsule.Dr) 20 mg PO BID@0630,1630 [facility] Last Admin: 08/13/23 05:23 Dose: 20 mg Ondansetron HCl (Ondansetron Hcl 4 Mg/2 Ml Vial) 4 mg IVPUSH Q8H PRN PRN Reason: Nausea and Vomiting Last Admin: 08/11/23 22:02 Dose: 4 mg Prochlorperazine Edisylate (Prochlorperazine Edisylate 10 Mg/2 Ml Vial) 5 mg IVPUSH Q4H PRN PRN Reason: Nausea and Vomiting Last Admin: 08/12/23 10:38 Dose: 5 mg Sodium Chloride (0.9 % Sodium Chloride Flush 3 Ml Syringe) 3 ml IVFLUSH QSHIFT [facility] Last Admin: 08/13/23 08:43 Dose: Not Given Vitamin D (Cholecalciferol (Vitamin D3) 25 Mcg Tablet) 25 mcg PO DAILY [facility] Last Admin: 08/13/23 08:42 Dose: 25 mcg Home Medications Medication Instructions Recorded Confirmed Last Taken Type apixaban 5 mg tablet (Eliquis) 5 mg PO BID 09/30/21 08/11/23 08/11/23 History dulaglutide 1.5 mg/0.5 mL 1 mg subcut Q7D 02/05/23 08/11/23 Unknown History subcutaneous pen injector (Trulicity) albuterol sulfate 90 mcg/actuation 2 puff inhalation Q4H PRN 06/25/23 08/11/23 Unknown History aerosol inhaler (ProAir HFA) Shortness Of Breath diltiazem HCl 300 mg 300 mg PO DAILY 06/25/23 08/11/23 08/11/23 History tablet,extended release 24 hr (Matzim [place]) buspirone 5 mg tablet 5 mg PO BID 08/11/23 08/11/23 08/11/23 History cholecalciferol (vitamin D3) 25 25 mcg PO DAILY 08/11/23 08/11/23 08/11/23 History mcg (1,000 unit) tablet citalopram 20 mg tablet 20 mg PO DAILY 08/11/23 08/11/23 08/11/23 History clopidogrel 75 mg tablet 75 mg PO DAILY 08/11/23 08/11/23 08/11/23 History insulin glargine 100 unit/mL (3 50 unit subcut BEDTIME 08/11/23 08/11/23 08/11/23 History mL) subcutaneous pen (Lantus Solostar U-100 Insulin) insulin lispro 100 unit/mL See Protocol subcut QIDACHS 08/11/23 08/11/23 08/11/23 History subcutaneous solution (Humalog U-100 Insulin) ipratropium 0.5 mg-albuterol 3 mg 3 ml inhalation BID PRN sob 08/11/23 08/11/23 Unknown History (2.5 mg base)/3 mL nebulization soln loratadine 10 mg tablet 10 mg PO DAILY 08/11/23 08/11/23 08/11/23 History melatonin 3 mg tablet 3 mg PO BEDTIME 08/11/23 08/11/23 08/11/23 History pantoprazole 40 mg tablet,delayed 40 mg PO BID 08/11/23 08/11/23 08/11/23 History release Physical Exam 2 Vital Signs: Vital Signs: Last Vital Signs Temp 97.1 F 08/13/23 07:08 Pulse 74 08/13/23 07:08 Resp 18 08/13/23 09:55 BP 165/72 H 08/13/23 07:08 Pulse Ox 93 08/13/23 07:08 O2 Del Method Room Air 08/13/23 07:08 BMI result Body Mass Index 35.2 Const: General: comfortable and no acute distress O rientation/consciousness: patient oriented x3 HEENT: Other: Unremarkable Head: Yes normal to inspection Neck: Neck: Yes normal visual inspection Chest: Chest palpation & inspection: normal inspection of the chest Resp: Auscultation: clear to auscultation bilaterally Cardio: Palpation: normal PMI Heart sounds: S1 normal heart sound present, S2 normal heart sound present, no gallops, Murmur heart sound present systolic II/ and no rubs GI: Palpation (GI): Soft to palpation Back/Spine/Pelvis: Other: unremarkable Skin: General skin exam: no rashes or lesions noted Neuro: General: patient oriented x3 Extrem: General: Yes normal to inspection Psych: Mental Status: mental status grossly normal Objective Labs and Meds 08/13/23 06:13 08/13/23 06:13 Lab results: Laboratory Results - last 24 hr 08/12/23 08/12/23 08/12/23 11:15 16:19 19:56 WBC RBC Hgb Hct MCV MCH MCHC RDW Plt Count MPV Absolute Nucleated RBC Nucleated RBC % (auto) Sodium Potassium Chloride Carbon Dioxide Anion Gap BUN Creatinine Estim Creat Clear Calc Estimated GFR POC Glucose 205 H 165 H 159 H Fasting Glucose Calcium Magnesium Total Bilirubin Direct Bilirubin AST ALT Alkaline Phosphatase Total Protein Albumin 08/13/23 08/13/23 06:13 07:14 WBC 7.3 RBC 3.71 L Hgb 10.7 L Hct 33.0 L MCV 88.9 MCH 28.8 MCHC 32.4 RDW 15.9 Plt Count 205 MPV 9.7 Absolute Nucleated RBC 0.000 Nucleated RBC % (auto) 0.0 Sodium 142 Potassium 4.2 Chloride 105 Carbon Dioxide 29 Anion Gap 12 BUN 22 H Creatinine 1.36 Estim Creat Clear Calc 40.0 Estimated GFR 38 POC Glucose 117 H Fasting Glucose 122 H Calcium 8.6 Magnesium 2.2 Total Bilirubin 0.4 Direct Bilirubin 0.1 AST 11 ALT 11 Alkaline Phosphatase 93 Total Protein 5.8 L Albumin 3.4 L ECG Interpretation: EKG shows sinus rhythm at 74/Min; nonspecific ST-T changes. Normal MD and corrected QT. Assessment and Plan (1) Abdominal pain: Qualifiers: Abdominal location: upper abdomen, unspecified Qualified Code(s): R 10.10 - Upper abdominal pain, unspecified Status: Inactive (2) Atypical chest pain: Status: Inactive (3) Acute pancreatitis: Status: Acute (4) CAD (coronary artery disease): Status: Acute Plan EKG is not showing any clear-cut ischemic changes. Troponin levels are-8.7, 9.2 and 3rd set is pending. Lipase level-163 which is high but that improved 21-within range. In the CT scan, comments on colonic diverticulosis without diverticulitis and mild constipation. Pancreas reported as unremarkable. Gallbladder has been removed. In the recent cardiac catheterization, consultation was circumflex stenosis which was stented. Otherwise, she did not have any significant CAD. Overall, based on the constant nature of epigastric pain, lack of any troponin elevation and based on the coronary anatomy as above, do not believe this pain is cardiac in nature. As the lipase was initially high, not clear that plays a role. Of note, she had a recent [facility] ER visit for the same reason and will need to review those records. Consider GI evaluation. Discussed with Dr. Worley Procedures Date of Service Date of Service: 08/13/23
[2023-08-13 10:13] LABS: Troponin-I High Sensitivity 8.8 ng/L (<3.5-17.0)
[2023-08-13 11:18] LABS: Glucose, Whole Blood 176 mg/dL (60-115)
[2023-08-13] MEDS: Insulin Lispro 100 UNIT/ML 3 ML VIAL SUBCUT ×3 (11:56→20:44)
--- NOTE | 2023-08-13 13:28 | PM.EVENT ---
Event Note Date of Service: 08/13/23 Event Note: GI consult dictated Epigastric pain trial of dicyclomine cont ppi check triglycerides f/u as outpt with Dr Luna for eventual egd Time Spent With Patient Time: Total time managing care of this patient today ____ minutes.
[2023-08-13] MEDS: Dicyclomine HCl 10 MG CAPSULE PO (15:43)
--- NOTE | 2023-08-13 16:11 | MHC.CM.PN ---
Per MD rounds no dc today. Patient has GI consult. A family member will transport home.
[2023-08-13 16:20] LABS: Glucose, Whole Blood 171 mg/dL (60-115)
[2023-08-13] MEDS: Albuterol/Iprat 2.5/0.5MG 3 ML AMPUL.NEB INHALE (19:47)
[2023-08-13 20:41] LABS: Glucose, Whole Blood 171 mg/dL (60-115)
[2023-08-13] MEDS: Insulin Glargine,Hum.rec.anlog 100 UNIT/ML 10 ML VIAL 25 UNIT SUBCUT (20:45)
--- NOTE | 2023-08-14 | ECG_ITS ---
Test Reason : chest pain Blood Pressure : / mmHG Vent. Rate : 059 BPM Atrial Rate : 059 BPM P-R Int : 186 ms QRS Dur : 080 ms QT Int : 434 ms P-R-T Axes : 033 038 078 degrees QTc Int : 429 ms Sinus bradycardia Nonspecific T wave abnormality Abnormal ECG When compared with ECG of 13-AUG-2023 10:42, No significant change was found Referred By: Adam Worley Electronically Signed By:SCOTTIE MONROY
--- NOTE | 2023-08-14 00:06 | CONS_ITS ---
DATE OF SERVICE: 08/13/2023 REFERRING PHYSICIAN: Dr. Worley REASON FOR CONSULTATION: Epigastric pain and elevated lipase. HISTORY OF PRESENT ILLNESS: The patient is a pleasant 72-year-old, who was admitted to the hospital after presenting to the emergency room on August 11 with complaints of substernal chest pain and pressure with epigastric pain. Symptoms began the morning of admission. She reports that since she underwent a cardiac catheterization and stent placement in June at the time of NSTEMI and since that time she has had epigastric pain, which was constant and relieved by food. The pain has been treated with morphine since she has been in the hospital, but is still present. She was evaluated in the emergency department with laboratory studies showing elevation of her total serum lipase at 163. Followup blood work showed normal lipase the following day. CT scanning of the abdomen and pelvis was done, which is reported as showing diverticulosis, but no diverticulitis. Pancreas was described as normal. She is status post cholecystectomy many years ago. She does not drink alcohol or smoke and has no history of pancreatitis. She does have a history of colon polyps and gastroesophageal reflux disease. She has been maintained on 40 mg of pantoprazole twice daily as outpatient. She recalls undergoing upper endoscopy many years ago, which she believes was unremarkable. She has had no dysphagia, hematemesis, or melena. She is tolerating a diet. In the hospital she has been treated with morphine and is also on omeprazole 20 mg b.i.d. She denies any NSAID usage. She is on dual anti-platelet therapy with Eliquis and Plavix because of her recent stent placement. PAST MEDICAL HISTORY: 1. Coronary artery disease with history of stent placement and NSTEMI as above. 2. Lung cancer with lobectomy. 3. Chronic kidney disease. 4. Hypertension. 5. Obstructive sleep apnea. 6. Hyperlipidemia. 7. COPD. 8. Paroxysmal atrial fibrillation. 9. Colon polyps. CURRENT MEDICATIONS: Her current medication list is reviewed in the chart. ALLERGIES: MULTIPLE MEDICATION ALLERGIES ARE REVIEWED. FAMILY HISTORY: This is reviewed with the patient and is noncontributory. SOCIAL HISTORY: There is no current tobacco, alcohol, or substance abuse. PAST SURGICAL HISTORY: Carpal tunnel, cholecystectomy, lobectomy, and tracheoplasty for tracheomalacia. REVIEW OF SYSTEMS: SKIN: No pruritus. HEENT: Negative. CARDIOPULMONARY: No shortness of breath or chest pain. GASTROINTESTINAL: As above. GENITOURINARY: Negative. NEUROPSYCHIATRIC: Negative. PHYSICAL EXAMINATION: GENERAL: Pleasant female, sitting comfortably in a chair. VITAL SIGNS: Reviewed in electronic medical record and are stable. SKIN: Anicteric. HEENT: Shows no scleral icterus. NECK: Without lymphadenopathy or thyromegaly. LUNGS: Clear. HEART: Shows regular rate and rhythm. S1, S2. No murmur. ABDOMEN: Soft. No focal masses. There is some mild epigastric tenderness to palpation. Bowel sounds present. No organomegaly is noted. EXTREMITIES: Without edema. LABORATORY DATA AND IMAGING STUDIES: Reviewed. IMPRESSION: Epigastric pain. We discussed the differential diagnosis for her epigastric pain today. This includes peptic ulcer disease, pancreatitis, and nonulcer dyspepsia. It is also possible, she could have some irritable bowel syndrome related symptoms given the persistence of the discomfort. It would be unusual for her to develop peptic ulcer disease was she is taking high-dose proton-pump inhibitor. I have recommended that she continue her proton-pump inhibitor. We will start dicyclomine to see if this helps her symptoms. She should undergo upper endoscopy. At some point this can be arranged electively through her primary GI as an outpatient and I would recommend checking triglycerides because of her elevated lipase. She clinically does not appear to have pancreatitis. We discussed this today with the patient and her daughter. Thanks for asking me to see her. I will follow her in the hospital with you. MD KIMBER Boogie/DOT / [id number]
[2023-08-14] MEDS: Lactated Ringers 1,000 ML 100 ML IVCONT ×2 (04:03→13:46)
[2023-08-14] MEDS: Omeprazole 20 MG CAPSULE.DR PO ×2 (05:13→16:52)
[2023-08-14] MEDS: Morphine Sulfate 2 MG/ML CARTRIDGE IVPUSH (05:13)
[2023-08-14 07:29] VITALS: BP 130/60; PULSE 75; RESP 22; TEMP 36.4; O2SAT 93
[2023-08-14 07:43] LABS: Cholesterol 165 mg/dL (<200); HDL Cholesterol 34 mg/dL (>40); LDL Cholesterol Calculated 108 mg/dL (<100); Triglycerides 118 mg/dL (<150)
[2023-08-14 07:56] LABS: Glucose, Whole Blood 108 mg/dL (60-115)
[2023-08-14] MEDS: busPIRone HCl 5 MG TABLET PO ×2 (08:33→20:36)
[2023-08-14] MEDS: Clopidogrel Bisulfate 75 MG TABLET PO (08:33)
[2023-08-14] MEDS: Loratadine 10 MG TABLET PO (08:33)
[2023-08-14] MEDS: Metoprolol Tartrate 50 MG TABLET PO ×2 (08:33→20:35)
[2023-08-14] MEDS: Escitalopram Oxalate 10 MG TABLET PO (08:33)
[2023-08-14] MEDS: Cholecalciferol (Vitamin D3) 25 MCG TABLET PO (08:33)
[2023-08-14] MEDS: Dicyclomine HCl 10 MG CAPSULE PO ×3 (08:33→16:52)
[2023-08-14] MEDS: Apixaban 5 MG TABLET PO ×2 (08:33→20:35)
[2023-08-14] MEDS: Empagliflozin 25 MG TABLET PO (08:34)
[2023-08-14] MEDS: dilTIAZem HCL CD 300 MG CAP.ER.24H PO (08:34)
--- NOTE | 2023-08-14 09:01 | PM.DS ---
DS: Providers Provider Date of Service: 08/16/23 Date of admission: 08/11/23 15:55 Primary care physician: Amanda Leiva MD Consults: 08/13/23 08:00 Consult to Cardiology Routine Consulting [place] [facility] Reason for consultation: Chest pain 08/13/23 09:49 Consult to Gastroenterology Routine Consulting Provider: Marcel Sorenson Reason for consultation: epigastric pain DS: Diagnosis Discharge Diagnosis (1) Abdominal pain: Status: Inactive (2) Atypical chest pain: Status: Inactive (3) Acute pancreatitis: Status: Acute (4) CAD (coronary artery disease): Status: Acute DS: Summary Hospital Course Hospital Course: from initial hpi: 72F PMH DM, obesity, lung ca s/p lobectomy, CKD IIIB, CAD s/p stents 06/30/23, htn, crystal, hld, copd, paroxysmal afib, histoyr of PE, presented with epiagstric pain. pain woke patient up on night of presentation, 06/15, radiating to back, no sob, in ED, ekg unremarkable, troponin unremarkable, ct abd with contrast unremarkable, but lipase about 160. hospital course: Patient was admitted for epigastric pain, felt to be secondary to acute pancreatitis given elevated lipase, although this is unclear as CT abdomen was unremarkable. She was given IV fluids and pain control and lipase returned to normal. Patient then started to tolerate solid diet. She was seen by Gastroenterology who felt differential includes IBS, less likely peptic ulcer disease. Was continued on high-dose PPI, and started on Bentyl. She should follow-up with primary GI as outpatient for EGD. For chest pressure, troponins were negative, EKG was unremarkable. Was seen by Cardiology, not felt to have ACS. She was continued on dual antiplatelet, for coronary disease. For diabetes was continue insulin. For obesity weight loss recommended. For CKD 3B she remained stable. Her hypertension was continue diltiazem and metoprolol. For paroxysmal atrial fibrillation was continue on Cardizem, metoprolol, Eliquis. For history of pulmonary embolism was continued on Eliquis. Time Attestation Discharge coordination time: Greater than 30 minutes Quality: Safe Use of Opioids Does Pt have an Active Cancer Diagnosis on the Problem List?: No Quality: Stroke Does the patient have a stroke diagnosis?: No Physical Exam Vital Signs: Vital Signs: Last Vital Signs Temp 97.5 F 08/14/23 07:29 Pulse 75 08/14/23 07:29 Resp 22 H 08/14/23 07:29 BP 130/60 08/14/23 07:29 Pulse Ox 93 08/14/23 07:29 O2 Del Method Room Air 08/14/23 07:29 BMI result Body Mass Index 35.2 Const: General: comfortable and no acute distress Orientation/consciousness: patient oriented x3 HEENT: Other: Unremarkable Head: Yes normal to inspection Neck: Neck: Yes normal visual inspection Chest: Chest palpation & inspection: normal inspection of the chest Resp: Auscultation: clear to auscultation bilaterally Cardio: Palpation: normal PMI Heart sounds: S1 normal heart sound present, S2 normal heart sound present, no gallops, Murmur heart sound present systolic II/ and no rubs GI: Palpation (GI): Soft to palpation Back/Spine/Pelvis: Other: unremarkable Skin: General skin exam: no rashes or lesions noted Neuro: General: patient oriented x3 Extrem: General: Yes normal to inspection Psych: Mental Status: mental status grossly normal DS: Data Data Completed and Pending Labs on day of discharge: Laboratory Results - last 24 hr 08/13/23 08/13/23 08/13/23 08:37 11:05 16:16 Hold Purple Top POC Glucose 176 H 171 H Troponin I High Sens 8.8 Triglycerides Cholesterol LDL Cholesterol, Calc HDL Cholesterol 08/13/23 08/14/23 08/14/23 20:37 06:47 07:43 Hold Purple Top SEE NOTE POC Glucose 171 H 108 Troponin I High Sens Triglycerides 118 Cholesterol 165 LDL Cholesterol, Calc 108 H HDL Cholesterol 34 L Discharge Plan Discharge Anticipated Discharge Date/Time: 08/14/23 08:58 Patient Disposition: Home, Self-Care Discharge Diagnosis: epigastric pain, possible pancreatitis Referrals: Amanda Leiva MD [Primary Care Provider] - 1 Week Discharge Medications: New dicyclomine 10 mg Capsule 10 mg PO TIDAC Qty: 90 0RF Continued Jardiance 25 mg tablet 25 mg PO DAILY Qty: 90 1RF (DME) FreeStyle Lite Strips Strip See Rx Instructions .Route Qty: 100 3RF Rx Instructions: test blood sugar once a day metoprolol tartrate 50 mg tablet 50 mg PO BID Qty: 180 3RF lisinopril-hydrochlorothiazide 10-12.5 mg tablet 1 tab PO DAILY Qty: 90 3RF Hold Instructions: Resume on 06/30/23. (DME) FreeStyle Kelly 2 Sensor Kit See Rx Instructions .ROUTE .MEDSUPPLY Qty: 6 3RF Rx Instructions: As directed every 2 weeks (DME) [facility] [place] See Rx Instructions .Route Qty: 1 0RF Rx Instructions: As directed clopidogrel 75 mg tablet 75 mg PO DAILY pantoprazole 40 mg tablet,delayed release (DR/EC) 40 mg PO BID ipratropium-albuterol 0.5 mg-3 mg(2.5 mg base)/3 mL solution for nebulization 3 ml inhalation BID PRN (Reason: sob) buspirone 5 mg tablet 5 mg PO BID melatonin 3 mg Tablet 3 mg PO BEDTIME citalopram 20 mg tablet 20 mg PO DAILY loratadine 10 mg Tablet 10 mg PO DAILY cholecalciferol (vitamin D3) 25 mcg (1,000 unit) Tablet 25 mcg PO DAILY insulin lispro [Humalog U-100 Insulin] 100 unit/mL solution See Protocol subcut QIDACHS Protocol: Insulin Correction Scale Less than or equal to 110 ---- Give (units): 0 111 to 150 Give (units): 12 151 to 200 Give (units): 14 201 to 250 Give (units): 16 251 to 300 Give (units): 18 301 to 350 Give (units): 20 Greater than 350 Give (units): 20 Call MD if Blood Glucose > : 350 insulin glargine [Lantus Solostar U-100 Insulin] 100 unit/mL (3 mL) insulin pen 50 unit subcut BEDTIME diltiazem HCl [Matzim LA] 300 mg tablet extended release 24 hr 300 mg PO DAILY albuterol sulfate [ProAir HFA] 90 mcg/actuation Hfa Aerosol Inhaler 2 puff INHALATION Q4H PRN (Reason: Shortness Of Breath) Hold Instructions: Resume on 06/29/23. Trulicity 1.5 mg/0.5 mL pen injector 1 mg subcut Q7D atorvastatin 80 mg tablet 80 mg PO QPM Qty: 90 2RF Eliquis 5 mg tablet 5 mg PO BID Hold Instructions: Resume on 06/30/23. hold until patient on iv heparin Discharge Orders: Discharge Order (Routine); Ordered 08/16/23 Ordered By: Adam Worley Diet: Advance to usual diet Activity on Discharge: As tolerated Stand Alone Forms: Patient Portal Discharge page Care Plan Goals: recovery Health Concerns: epigastric pain Plan of Treatment: start lorraine, follow up with GI for EGD Assessment: see above
[2023-08-14] MEDS: Acetaminophen 325 MG TABLET 650 MG PO ×3 (09:09→20:45)
--- NOTE | 2023-08-14 09:09 | MHC.CM.PN ---
Addendum entered by Vane Quinteros 08/14/23 14:15: DC CANCELLED, PT C/O PAIN Original Note: PT WILL DC HOME TODAY WITH NO SERVICES VIA FAMILY TRANSPORT
[2023-08-14] MEDS: oxyCODONE HCl Immed Release 5 MG TABLET PO ×3 (09:44→20:45)
[2023-08-14] MEDS: polyethylene glycoL 3350 17 GM POWD.PACK PO (10:24)
--- NOTE | 2023-08-14 11:10 | HO.PM.IMPN ---
Subjective Subjective Date of Service: 08/14/23 Interval History: does not feel comfortable going home due to ongoing epigastric pain Physical Exam Vital Signs: Vital Signs: Last Vital Signs Temp 97.5 F 08/14/23 07:29 Pulse 75 08/14/23 07:29 Resp 22 H 08/14/23 07:29 BP 130/60 08/14/23 07:29 Pulse Ox 93 08/14/23 07:29 O2 Del Method Room Air 08/14/23 07:29 BMI result Body Mass Index 35.2 Const: General: comfortable and no acute distress Orientation/consciousness: patient oriented x3 HEENT: Other: Unremarkable Head: Yes normal to inspection Neck: Neck: Yes normal visual inspection Chest: Chest palpation & inspection: normal inspection of the chest Resp: Auscultation: clear to auscultation bilaterally Cardio: Palpation: normal PMI Heart sounds: S1 normal heart sound present, S2 normal heart sound present, no gallops, Murmur heart sound present systolic II/ and no rubs GI: Palpation (GI): Soft to palpation Back/Spine/Pelvis: Other: unremarkable Skin: General skin exam: no rashes or lesions noted Neuro: General: patient oriented x3 Extrem: General: Yes normal to inspection Psych: Mental Status: mental status grossly normal Objective Data Active Medications Acetaminophen (Acetaminophen 325 Mg Tablet) 650 mg PO Q4H PRN PRN Reason: Mpain Last Admin: 08/14/23 09:09 Dose: 650 mg Documented By: KARIE Albuterol Sulfate (Albuterol Sulfate 90 Mcg 8 Gm Inhaler) 2 puff INHALE Q4H PRN PRN Reason: Shortness Of Breath Albuterol/Ipratropium (Albuterol/Iprat 2.5/0.5mg 3 Ml Ampul.Neb) 3 ml INHALE BID PRN PRN Reason: sob Last Admin: 08/13/23 19:47 Dose: 3 ml Documented By: COLLEEN Apixaban (Apixaban 5 Mg Tablet) 5 mg PO BID [facility] Last Admin: 08/14/23 08:33 Dose: 5 mg Documented By: ANN Buspirone HCl (Buspirone Hcl 5 Mg Tablet) 5 mg PO BID [facility] Last Admin: 08/14/23 08:33 Dose: 5 mg Documented By: ANN Clopidogrel Bisulfate (Clopidogrel Bisulfate 75 Mg Tablet) 75 mg PO DAILY [facility] Last Admin: 08/14/23 08:33 Dose: 75 mg Documented By: ANN Dextrose (Dextrose 50 % 25 Gm/50 Ml Syringe) 25 gm IVPUSH Q15M PRN; Protocol PRN Reason: per Hypoglycemia Standing Ord. Dicyclomine HCl (Dicyclomine Hcl 10 Mg Capsule) 10 mg PO TIDAC [facility] Last Admin: 08/14/23 08:33 Dose: 10 mg Documented By: ANN Diltiazem HCl (Diltiazem Hcl Cd 300 Mg Cap.Er.24h) 300 mg PO DAILY [facility]; Protocol Last Admin: 08/14/23 08:34 Dose: 300 mg Documented By: ANN Empagliflozin (Empagliflozin 25 Mg Tablet) 25 mg PO DAILY [facility] Last Admin: 08/14/23 08:34 Dose: 25 mg Documented By: ANN Escitalopram Oxalate (Escitalopram Oxalate 10 Mg Tablet) 10 mg PO DAILY [facility] Last Admin: 08/14/23 08:33 Dose: 10 mg Documented By: ANN Glucose (Glucose Gel 15 Gm Gel..Gram.) 15 gm PO Q15M PRN; Protocol PRN Reason: per Hypoglycemia Standing Ord. Lactated Ringer's (Lr) 1,000 mls @ 100 mls/hr IVCONT .Q10H [facility] Last Admin: 08/14/23 04:03 Dose: 100 mls/hr Documented By: LISA Insulin Glargine (Insulin Glargine,Hum.Rec.Anlog 100 Unit/Ml 10 Ml Vial) 25 unit SUBCUT BEDTIME [facility] Last Admin: 08/13/23 20:45 Dose: 25 unit Documented By: LISA Insulin Human Lispro (Insulin Lispro 100 Unit/Ml 3 Ml Vial) 0 unit SUBCUT QIDACHS [facility]; Protocol Last Admin: 08/14/23 08:07 Dose: Not Given Documented By: ANN Non-Admin Reason: No Insulin Coverage Loratadine (Loratadine 10 Mg Tablet) 10 mg PO DAILY [facility] Last Admin: 08/14/23 08:33 Dose: 10 mg Documented By: ANN Melatonin (Melatonin 3 Mg Tablet) 6 mg PO BEDTIME PRN PRN Reason: Sleep Last Admin: 08/13/23 20:35 Dose: 6 mg Documented By: HO.CROP Metoprolol Tartrate (Metoprolol Tartrate 50 Mg Tablet) 50 mg PO BID [facility]; Protocol Last Admin: 08/14/23 08:33 Dose: 50 mg Documented By: ANN Morphine Sulfate (Morphine Sulfate 2 Mg/Ml Cartridge) 2 mg IVPUSH Q3H PRN; Protocol PRN Reason: moderate pain Last Admin: 08/14/23 05:13 Dose: 2 mg Documented By: LISA Omeprazole (Omeprazole 20 Mg Capsule.Dr) 20 mg PO BID@0630,1630 [facility] Last Admin: 08/14/23 05:13 Dose: 20 mg Documented By: LISA Ondansetron HCl (Ondansetron Hcl 4 Mg/2 Ml Vial) 4 mg IVPUSH Q8H PRN PRN Reason: Nausea and Vomiting Last Admin: 08/11/23 22:02 Dose: 4 mg Documented By: VERO Prochlorperazine Edisylate (Prochlorperazine Edisylate 10 Mg/2 Ml Vial) 5 mg IVPUSH Q4H PRN PRN Reason: Nausea and Vomiting Last Admin: 08/12/23 10:38 Dose: 5 mg Documented By: EVAN Sodium Chloride (0.9 % Sodium Chloride Flush 3 Ml Syringe) 3 ml IVFLUSH QSHIFT [facility] Last Admin: 08/14/23 07:26 Dose: Not Given Documented By: ANN Non-Admin Reason: IV Running Vitamin D (Cholecalciferol (Vitamin D3) 25 Mcg Tablet) 25 mcg PO DAILY [facility] Last Admin: 08/14/23 08:33 Dose: 25 mcg Documented By: ANN Labs 08/13/23 06:13 08/13/23 06:13 Labs: Laboratory Results - last 24 hr 08/13/23 08/13/23 08/13/23 11:05 16:16 20:37 Hold Purple Top POC Glucose 176 H 171 H 171 H Triglycerides Cholesterol LDL Cholesterol, Calc HDL Cholesterol 08/14/23 08/14/23 06:47 07:43 Hold Purple Top SEE NOTE POC Glucose 108 Triglycerides 118 Cholesterol 165 LDL Cholesterol, Calc 108 H HDL Cholesterol 34 L Microbiology Microbiology Results: Microbiology 08/11/23 Unknown Urine Culture - Final Urine clean catch - Urine maldonado top Assessment and Plan (1) Acute pancreatitis: Status: Acute Plan 72F PMH DM, obesity, lung ca s/p lobectomy, CKD IIIB, CAD s/p stents 06/30/23, htn, crystal, hld, copd, paroxysmal afib, history of PE, presented with epiagstric pain epigastric pain ?acute pancreatitis lipase improved ?PUD - gi appreciated - started bentyl for possible ibs, continue ppi, will need outpatient egd chest pressure cardio appreciated - unlikely cardiac DM insulin pocs obesity weight loss CKD IIIB stable, monitor CAD asa, plavix, eliquis, hold statin for pancreatitis htn cardizem, metoprolol hold lisinopril, hctz for now paroxysmal afib cardizem, metoprolol, eliquis history of pe on eliquis full code reason for continued hospitalization:ongoing epigastric pain Quality Stroke Does the patient have a stroke diagnosis?: No VTE Prior VTE?: Yes VTE Risk Level:: Medical - moderate - high VTE Device Contraindication: Treatment Not Indicated VTE Drug Contraindication: N/A - Med Ordered
[2023-08-14 11:41] LABS: Glucose, Whole Blood 128 mg/dL (60-115)
[2023-08-14 15:23] VITALS: BP 158/72; PULSE 60; RESP 18; TEMP 37; O2SAT 92
--- NOTE | 2023-08-14 15:59 | PC.NURSE ---
pt complaining of 7/10 chest pain/pressure radiating to left arm. Vitals T 98.6, P 60, R 18, BP 158/72, O2 [address] Worley notified. EKG ordered.
[2023-08-14 16:26] LABS: Glucose, Whole Blood 165 mg/dL (60-115)
[2023-08-14] MEDS: Insulin Lispro 100 UNIT/ML 3 ML VIAL SUBCUT (16:52)
[2023-08-14] MEDS: Insulin Glargine,Hum.rec.anlog 100 UNIT/ML 10 ML VIAL 25 UNIT SUBCUT (20:36)
[2023-08-14] MEDS: Melatonin 3 MG TABLET 6 MG PO (20:46)
[2023-08-14 20:47] LABS: Glucose, Whole Blood 147 mg/dL (60-115)
[2023-08-15] VITALS: BP 146/76; PULSE 69; RESP 18; TEMP 36.2; O2SAT 94
[2023-08-15] MEDS: Lactated Ringers 1,000 ML 100 ML IVCONT (00:08)
[2023-08-15] MEDS: Omeprazole 20 MG CAPSULE.DR PO (05:37)
[2023-08-15] MEDS: Acetaminophen 325 MG TABLET 650 MG PO (05:41)
[2023-08-15] MEDS: oxyCODONE HCl Immed Release 5 MG TABLET PO ×4 (05:41→21:44)
[2023-08-15 07:48] VITALS: BP 163/73; PULSE 71; RESP 18; TEMP 36.6; O2SAT 93
[2023-08-15 07:57] LABS: Glucose, Whole Blood 99 mg/dL (60-115)
[2023-08-15] MEDS: ondansetron HCL 4 MG/2 ML VIAL IVPUSH (07:58)
[2023-08-15] MEDS: Clopidogrel Bisulfate 75 MG TABLET PO (07:59)
[2023-08-15] MEDS: Empagliflozin 25 MG TABLET PO (07:59)
[2023-08-15] MEDS: Metoprolol Tartrate 50 MG TABLET PO ×2 (07:59→21:24)
[2023-08-15] MEDS: 0.9 % Sodium Chloride Flush 3 ML SYRINGE IVFLUSH ×3 (07:59→21:25)
[2023-08-15] MEDS: Escitalopram Oxalate 10 MG TABLET PO (07:59)
[2023-08-15] MEDS: dilTIAZem HCL CD 300 MG CAP.ER.24H PO (07:59)
[2023-08-15] MEDS: Dicyclomine HCl 10 MG CAPSULE PO ×3 (07:59→16:57)
[2023-08-15] MEDS: busPIRone HCl 5 MG TABLET PO ×2 (07:59→21:24)
[2023-08-15] MEDS: Cholecalciferol (Vitamin D3) 25 MCG TABLET PO (07:59)
[2023-08-15] MEDS: Apixaban 5 MG TABLET PO ×2 (07:59→21:24)
[2023-08-15] MEDS: Loratadine 10 MG TABLET PO (08:45)
--- NOTE | 2023-08-15 08:55 | HO.PM.IMPN ---
Subjective Subjective Date of Service: 08/15/23 Interval History: does not feel comfortable going home due to ongoing epigastric pain Physical Exam Vital Signs: Vital Signs: Last Vital Signs Temp 98 F 08/15/23 07:48 Pulse 71 08/15/23 07:48 Resp 18 08/15/23 07:48 BP 163/73 H 08/15/23 07:48 Pulse Ox 93 08/15/23 07:48 O2 Del Method Room Air 08/15/23 07:48 BMI result Body Mass Index 35.2 Const: General: comfortable and no acute distress Orientation/consciousness: patient oriented x3 HEENT: Other: Unremarkable Head: Yes normal to inspection Neck: Neck: Yes normal visual inspection Chest: Chest palpation & inspection: normal inspection of the chest Resp: Auscultation: clear to auscultation bilaterally Cardio: Palpation: normal PMI Heart sounds: S1 normal heart sound present, S2 normal heart sound present, no gallops, Murmur heart sound present systolic II/ and no rubs GI: Palpation (GI): Soft to palpation Back/Spine/Pelvis: Other: unremarkable Skin: General skin exam: no rashes or lesions noted Neuro: General: patient oriented x3 Extrem: General: Yes normal to inspection Psych: Mental Status: mental status grossly normal Objective Data Active Medications Acetaminophen (Acetaminophen 325 Mg Tablet) 650 mg PO Q4H PRN PRN Reason: Mpain Last Admin: 08/15/23 05:41 Dose: 650 mg Documented By: LISA Albuterol Sulfate (Albuterol Sulfate 90 Mcg 8 Gm Inhaler) 2 puff INHALE Q4H PRN PRN Reason: Shortness Of Breath Albuterol/Ipratropium (Albuterol/Iprat 2.5/0.5mg 3 Ml Ampul.Neb) 3 ml INHALE BID PRN PRN Reason: sob Last Admin: 08/13/23 19:47 Dose: 3 ml Documented By: COLLEEN Apixaban (Apixaban 5 Mg Tablet) 5 mg PO BID [facility] [place] Last Admin: 08/15/23 07:59 Dose: 5 mg Documented By: KIRSTEN Buspirone HCl (Buspirone Hcl 5 Mg Tablet) 5 mg PO BID [facility] [place] Last Admin: 08/15/23 07:59 Dose: 5 mg Documented By: KIRSTEN Clopidogrel Bisulfate (Clopidogrel Bisulfate 75 Mg Tablet) 75 mg PO DAILY [facility] Last Admin: 08/15/23 07:59 Dose: 75 mg Documented By: KIRSTEN Dextrose (Dextrose 50 % 25 Gm/50 Ml Syringe) 25 gm IVPUSH Q15M PRN; Protocol PRN Reason: per Hypoglycemia Standing Ord. Dicyclomine HCl (Dicyclomine Hcl 10 Mg Capsule) 10 mg PO TIDAC [facility] Last Admin: 08/15/23 07:59 Dose: 10 mg Documented By: KIRSTEN Diltiazem HCl (Diltiazem Hcl Cd 300 Mg Cap.Er.24h) 300 mg PO DAILY [facility] [place]; Protocol Last Admin: 08/15/23 07:59 Dose: 300 mg Documented By: KIRSTEN Empagliflozin (Empagliflozin 25 Mg Tablet) 25 mg PO DAILY [facility] [place] Last Admin: 08/15/23 07:59 Dose: 25 mg Documented By: KIRSTEN Escitalopram Oxalate (Escitalopram Oxalate 10 Mg Tablet) 10 mg PO DAILY [facility] [place] Last Admin: 08/15/23 07:59 Dose: 10 mg Documented By: KIRSTEN Glucose (Glucose Gel 15 Gm Gel..Gram.) 15 gm PO Q15M PRN; Protocol PRN Reason: per Hypoglycemia Standing Ord. Insulin Glargine (Insulin Glargine,Hum.Rec.Anlog 100 Unit/Ml 10 Ml Vial) 25 unit SUBCUT BEDTIME [facility] Last Admin: 08/14/23 20:36 Dose: 25 unit Documented By: LISA Insulin Human Lispro (Insulin Lispro 100 Unit/Ml 3 Ml Vial) 0 unit SUBCUT QIDACHS [facility]; Protocol Last Admin: 08/15/23 08:04 Dose: Not Given Documented By: KIRSTEN Non-Admin Reason: No Insulin Coverage Loratadine (Loratadine 10 Mg Tablet) 10 mg PO DAILY [facility] [place] Last Admin: 08/15/23 08:45 Dose: 10 mg Documented By: KIRSTEN Melatonin (Melatonin 3 Mg Tablet) 6 mg PO BEDTIME PRN PRN Reason: Sleep Last Admin: 08/14/23 20:46 Dose: 6 mg Documented By: LISA Metoprolol Tartrate (Metoprolol Tartrate 50 Mg Tablet) 50 mg PO BID [facility] [place]; Protocol Last Admin: 08/15/23 07:59 Dose: 50 mg Documented By: KIRSTEN Omeprazole (Omeprazole 20 Mg Capsule.) 20 mg PO BID@0630,1630 [facility] [place] Last Admin: 08/15/23 05:37 Dose: 20 mg Documented By: LISA Ondansetron HCl (Ondansetron Hcl 4 Mg/2 Ml Vial) 4 mg IVPUSH Q8H PRN PRN Reason: Nausea and Vomiting Last Admin: 08/15/23 07:58 Dose: 4 mg Documented By: KIRSTEN Oxycodone HCl (Oxycodone Hcl Immed Release 5 Mg Tablet) 5 mg PO Q4H PRN PRN Reason: moderate pain Last Admin: 08/15/23 05:41 Dose: 5 mg Documented By: LISA Prochlorperazine Edisylate (Prochlorperazine Edisylate 10 Mg/2 Ml Vial) 5 mg IVPUSH Q4H PRN PRN Reason: Nausea and Vomiting Last Admin: 08/12/23 10:38 Dose: 5 mg Documented By: EVAN Sodium Chloride (0.9 % Sodium Chloride Flush 3 Ml Syringe) 3 ml IVFLUSH QSHIFT [facility] [place] Last Admin: 08/15/23 07:59 Dose: 3 ml Documented By: KIRSTEN Vitamin D (Cholecalciferol (Vitamin D3) 25 Mcg Tablet) 25 mcg PO DAILY [facility] [place] Last Admin: 08/15/23 07:59 Dose: 25 mcg Documented By: KIRSTEN Labs 08/13/23 06:13 08/13/23 06:13 Labs: Laboratory Results - last 24 hr 08/14/23 08/14/23 08/14/23 11:36 16:17 20:18 POC Glucose 128 H 165 H 147 H 08/15/23 07:43 POC Glucose 99 Assessment and Plan (1) Acute pancreatitis: Status: Acute Plan 72F PMH DM, obesity, lung ca s/p lobectomy, CKD IIIB, CAD s/p stents 06/30/23, htn, crystal, hld, copd, paroxysmal afib, history of PE, presented with epiagstric pain epigastric pain ?acute pancreatitis lipase improved ?PUD - gi appreciated - started bentyl for possible ibs, continue ppi, will need outpatient egd ongoing discomfort - continue pain meds chest pressure cardio appreciated - unlikely cardiac DM insulin pocs obesity weight loss CKD IIIB stable, monitor CAD asa, plavix, eliquis, hold statin for pancreatitis htn cardizem, metoprolol hold lisinopril, hctz for now paroxysmal afib cardizem, metoprolol, eliquis history of pe on eliquis full code reason for continued hospitalization:ongoing epigastric pain Quality Stroke Does the patient have a stroke diagnosis?: No VTE Prior VTE?: Yes VTE Risk Level:: Medical - moderate - high VTE Device Contraindication: Treatment Not Indicated VTE Drug Contraindication: N/A - Med Ordered
--- NOTE | 2023-08-15 10:55 | P.PNGI_ITS ---
Subjective Subjective Date of Service: 08/15/23 Interval History: tolerating diet some epigastric pain Critical Care Time (minutes): 0 Physical Exam 2 Vital Signs: Vital Signs: Last Vital Signs Temp 98 F 08/15/23 07:48 Pulse 71 08/15/23 07:48 Resp 18 08/15/23 07:48 BP 163/73 H 08/15/23 07:48 Pulse Ox 93 08/15/23 07:48 O2 Del Method Room Air 08/15/23 07:48 BMI result Body Mass Index 35.2 GI: Other: abdomen is soft without guarding or rebound Objective Data Labs 08/13/23 06:13 08/13/23 06:13 Labs: Laboratory Results - last 24 hr 08/14/23 08/14/23 08/14/23 11:36 16:17 20:18 POC Glucose 128 H 165 H 147 H 08/15/23 07:43 POC Glucose 99 Microbiology Microbiology Results: Microbiology 08/11/23 Unknown Urine clean catch - Urine maldonado top Urine Culture - Final Procedures Date of Service Date of Service: 08/15/23 Progress Note: A&P Assessment and plan (1) Epigastric abdominal pain: Status: Acute Assessment and Plan: omeprazole increased to 40 mg bid. follow clinically Time Spent With Patient Time: Total time managing care of this patient today ____ minutes. Quality Stroke Does the patient have a stroke diagnosis?: No VTE Prior VTE?: Yes VTE Risk Level:: Medical - moderate - high VTE Device Contraindication: Treatment Not Indicated VTE Drug Contraindication: N/A - Med Ordered
[2023-08-15] MEDS: polyethylene glycoL 3350 17 GM POWD.PACK PO (11:05)
[2023-08-15 11:16] LABS: Glucose, Whole Blood 143 mg/dL (60-115)
[2023-08-15] MEDS: Albuterol/Iprat 2.5/0.5MG 3 ML AMPUL.NEB INHALE (14:05)
[2023-08-15 14:08] VITALS: PULSE 76; RESP 18; O2SAT 95
[2023-08-15 15:13] VITALS: BP 139/62; PULSE 68; RESP 22; TEMP 36.6; O2SAT 92
[2023-08-15 16:33] LABS: Glucose, Whole Blood 169 mg/dL (60-115)
[2023-08-15] MEDS: Insulin Lispro 100 UNIT/ML 3 ML VIAL SUBCUT ×2 (16:56→21:25)
[2023-08-15] MEDS: Omeprazole 40 MG CAPSULE.DR PO (16:57)
[2023-08-15 20:02] VITALS: BP 140/62; PULSE 72; RESP 18; TEMP 36.6; O2SAT 92
[2023-08-15 20:57] LABS: Glucose, Whole Blood 159 mg/dL (60-115)
[2023-08-15] MEDS: Albuterol Sulfate 90 MCG 8 GM INHALER 2 PUFF INHALE (21:24)
[2023-08-15] MEDS: Milk of Magnesia 30 ML ORAL.SUSP PO (21:25)
[2023-08-15] MEDS: Sennosides/Docusate Sodium TABLET 1 TAB PO (21:25)
[2023-08-15] MEDS: Insulin Glargine,Hum.rec.anlog 100 UNIT/ML 10 ML VIAL 25 UNIT SUBCUT (21:25)
[2023-08-15] MEDS: Melatonin 3 MG TABLET 6 MG PO (21:44)
[2023-08-15 23:29] VITALS: BP 156/68; PULSE 68; RESP 18; TEMP 36.4; O2SAT 94
[2023-08-16] MEDS: Acetaminophen 325 MG TABLET 650 MG PO (00:43)
--- NOTE | 2023-08-16 03:35 | PC.NURSE ---
Patient reports last BM on last Wednesday, one week ago. Slight abdominal discomfort, epigastric area. Dr Wing notified. MOM and Senokot given, no results yet.
[2023-08-16] MEDS: Omeprazole 40 MG CAPSULE.DR PO (06:14)
[2023-08-16] MEDS: Dicyclomine HCl 10 MG CAPSULE PO (06:14)
[2023-08-16 07:44] LABS: Glucose, Whole Blood 115 mg/dL (60-115)
[2023-08-16 07:52] VITALS: BP 160/72; PULSE 72; RESP 16; TEMP 36.7; O2SAT 95
[2023-08-16] MEDS: Albuterol/Iprat 2.5/0.5MG 3 ML AMPUL.NEB INHALE (08:20)
[2023-08-16 08:22] VITALS: PULSE 76; RESP 18; O2SAT 96
[2023-08-16] MEDS: Cholecalciferol (Vitamin D3) 25 MCG TABLET PO (08:48)
[2023-08-16] MEDS: busPIRone HCl 5 MG TABLET PO (08:48)
[2023-08-16] MEDS: Escitalopram Oxalate 10 MG TABLET PO (08:48)
[2023-08-16] MEDS: Loratadine 10 MG TABLET PO (08:49)
[2023-08-16] MEDS: Empagliflozin 25 MG TABLET PO (08:49)
[2023-08-16] MEDS: Clopidogrel Bisulfate 75 MG TABLET PO (08:49)
[2023-08-16] MEDS: Apixaban 5 MG TABLET PO (08:49)
[2023-08-16] MEDS: dilTIAZem HCL CD 300 MG CAP.ER.24H PO (08:49)
[2023-08-16] MEDS: bisacodyL 10 MG SUPP.RECT PR (08:49)
[2023-08-16] MEDS: Metoprolol Tartrate 50 MG TABLET PO (08:49)
[2023-08-16] MEDS: Sennosides/Docusate Sodium TABLET 1 TAB PO (08:49)
[2023-08-16] MEDS: 0.9 % Sodium Chloride Flush 3 ML SYRINGE IVFLUSH (08:50)
--- NOTE | 2023-08-16 10:38 | MHC.CM.PN ---
PER MD ROUNDS PATIENT IS MEDICALLY CLEARED FOR DC HOME SELF CARE. DAUGHTER TO TRANSPORT THIS MORNING. RN AWARE. OF NOTE, PATIENT REPORTED TO PREVIOUS CM THAT CPAP IS NOT FUNCTIONING. RESPIRATORY IS AWARE AND HAS CONTACTED ELIJAH. ELIJAH WILL CONTACT PATIENT DIRECTLY TO ADDRESS THIS ISSUE. IMM DELIVERED.
== END 2023-08-16 11:50 | disposition home or self-care (01) | DRG 440 ==
LOC: HO.ED 15:29 → HO.EDOVER 16:00 → HO.S3 18:32
PROVIDERS: Internal Medicine Gastroenterology; Physician Assistant; Admitting Provider Internal Medicine; Emergency Provider Emergency Medicine Emergency Medical Services; PCP Internal Medicine; Visit Provider Internal Medicine
DX: K85.90 Acute pancreatitis without necrosis or infection, unspecified (principal); I12.9 Hypertensive chronic kidney disease with stage 1 through stage 4 chronic kidney disease, or unspecified chronic kidney disease; N18.32 Chronic kidney disease, stage 3b; E11.22 Type 2 diabetes mellitus with diabetic chronic kidney disease; I25.10 Atherosclerotic heart disease of native coronary artery without angina pectoris; I48.0 Paroxysmal atrial fibrillation; J44.9 Chronic obstructive pulmonary disease, unspecified; G47.33 Obstructive sleep apnea (adult) (pediatric); E66.9 Obesity, unspecified; Z68.35 Body mass index [BMI] 35.0-35.9, adult; Z20.822 Contact with and (suspected) exposure to COVID-19; Z90.2 Acquired absence of lung [part of]; Z86.711 Personal history of pulmonary embolism; Z87.891 Personal history of nicotine dependence; Z85.118 Personal history of other malignant neoplasm of bronchus and lung; Z71.3 Dietary counseling and surveillance; Z79.4 Long term (current) use of insulin; Z79.01 Long term (current) use of anticoagulants; Z79.02 Long term (current) use of antithrombotics/antiplatelets; Z79.85 Long-term (current) use of injectable non-insulin antidiabetic drugs; Z79.899 Other long term (current) drug therapy
CPT/HCPCS: 0241U; 36415; 71045; 74177; 80048; 80061; 80076; 81001; 82947; 83690; 83735; 83880; 84484; 85025; 85027; 87086; 93005; 94640; 99221; 99285; J0737; J2270; J2405; J7120; Q9967

== ENCOUNTER → 2023-08-11 09:58 | Outpatient (BNV) | payer MEDICARE, SELFPAY | PROVIDERS: Emergency Provider Emergency Medicine Emergency Medical Services; PCP Internal Medicine; Visit Provider Internal Medicine | DX: R94.31 Abnormal electrocardiogram [ECG] [EKG] (principal) | CPT/HCPCS: 93010 ==

== ENCOUNTER 2023-08-11 15:55 | Outpatient (BNV) | payer MEDICARE, SELFPAY | END 2023-08-14 15:28 | PROVIDERS: Admitting Provider Internal Medicine; Emergency Provider Emergency Medicine Emergency Medical Services; PCP Internal Medicine; Visit Provider Internal Medicine | DX: R00.1 Bradycardia, unspecified (principal); R94.31 Abnormal electrocardiogram [ECG] [EKG] | CPT/HCPCS: 93010 ==

== ENCOUNTER 2023-08-11 15:55 | Outpatient (BNV) | payer MEDICARE, SELFPAY | END 2023-08-13 10:42 | PROVIDERS: Admitting Provider Internal Medicine; Emergency Provider Emergency Medicine Emergency Medical Services; PCP Internal Medicine; Visit Provider Internal Medicine | DX: R94.31 Abnormal electrocardiogram [ECG] [EKG] (principal) | CPT/HCPCS: 93010 ==

== ENCOUNTER → 2023-08-11 15:55 | Outpatient (BNV) | payer MEDICARE, SELFPAY | PROVIDERS: Admitting Provider Internal Medicine; Emergency Provider Emergency Medicine Emergency Medical Services; PCP Internal Medicine; Visit Provider Internal Medicine | DX: R10.10 Upper abdominal pain, unspecified (principal); R07.89 Other chest pain; K85.90 Acute pancreatitis without necrosis or infection, unspecified; I25.10 Atherosclerotic heart disease of native coronary artery without angina pectoris | CPT/HCPCS: 99222; 99232; 99239 ==

== ENCOUNTER → 2023-08-11 15:55 | Outpatient (BNV) | payer MEDICARE, SELFPAY | PROVIDERS: Admitting Provider Internal Medicine; Emergency Provider Emergency Medicine Emergency Medical Services; PCP Internal Medicine; Visit Provider Internal Medicine | DX: R10.10 Upper abdominal pain, unspecified (principal); R07.89 Other chest pain; K85.90 Acute pancreatitis without necrosis or infection, unspecified; I25.10 Atherosclerotic heart disease of native coronary artery without angina pectoris | CPT/HCPCS: 99223 ==

== ENCOUNTER 2023-08-17 11:36 | Inpatient (IN) | payer MEDICARE, SELFPAY ==
[2023-08-17] VITALS (8 sets, daily range): BP systolic 136–177; BP diastolic 61–77; PULSE 94–126; RESP 17–30; TEMP 36.8; O2SAT 93–98; BMI 36.1
--- NOTE | ~2023-08-17 | XR_ITS ---
EXAMINATION: XR CHEST CLINICAL INFORMATION: SOB COMPARISON: Chest x-ray 08/11/2023 TECHNIQUE: 2 views of the chest were obtained. FINDINGS: There is small left pleural effusion and underlying atelectasis. Otherwise the lungs are well-expanded and clear. The heart size is borderline normal.. Pulmonary vascularity is normal. There is mild dorsal spine spondylosis. XR/XR chest 2V IMPRESSION: Left pleural effusion with underlying atelectasis. Mild dorsal spine spondylosis.
--- NOTE | ~2023-08-17 | CT_ITS ---
EXAMINATION: CT ANGIOGRAM OF THE CHEST WITH AND WITHOUT CONTRAST (CT PULMONARY ANGIOGRAM FOR PE) CLINICAL INFORMATION: Reason for Exam Right chest pain, new pleural diffuse R/O PE COMPARISON: 05/21/2020 TECHNIQUE: Prior to contrast administration, noncontrast localization images were obtained. Subsequently, multidetector volumetric imaging was performed from the thoracic inlet to below the diaphragms following the administration of 65 mL Omnipaque 350 intravenous contrast. No contrast reaction reported Sagittal, coronal, and MIP oblique sagittal reformatted images were obtained on the CT workstation, uploaded to PACS, and reviewed. This CT examination was performed using dose optimization techniques as appropriate, variously including the following: *Automated exposure control *Adjustment of mA and/or kV according to patient size (this includes techniques or standardized protocols for targeted exams where dose is matched to indication/reason for exam; i.e. extremities or head) *Use of iterative reconstruction technique Total exam dose-length product 453 mGy-cm FINDINGS: QUALITY OF STUDY/CONTRAST BOLUS: Satisfactory. PULMONARY ARTERIES: No pulmonary emboli. THORACIC AORTA: There is atherosclerotic plaque of the aortic arch and descending thoracic aorta. LUNG: There is atelectatic change at the lung bases associated with small bilateral pleural effusions. PLEURA: There are small bilateral pleural effusions. There is diffuse right-sided pleural thickening. MEDIASTINUM: Normal heart size. No pericardial effusion. No hilar or mediastinal lymphadenopathy. No evidence of septal bowing or right heart strain. CORONARY ARTERY CALCIFICATION: Mild. CHEST WALL/AXILLA: No axillary or internal mammary lymphadenopathy. OSSEOUS STRUCTURES: There is mild diffuse thoracic disc degenerative change. UPPER ABDOMEN: Unremarkable. No reflux of contrast into the hepatic veins to suggest elevated right heart pressures. CT/CT angio chest PE protocol IMPRESSION: No evidence for pulmonary embolism. Small bilateral pleural effusions with associated mild bibasilar atelectasis. VTE: Negative for pulmonary embolism.
--- NOTE | 2023-08-17 11:38 | ECG_ITS ---
Test Reason : cp diff bresthing Blood Pressure : / mmHG Vent. Rate : 098 BPM Atrial Rate : 098 BPM P-R Int : 174 ms QRS Dur : 078 ms QT Int : 358 ms P-R-T Axes : 029 043 053 degrees QTc Int : 457 ms Normal sinus rhythm Possible Left atrial enlargement Borderline ECG When compared with ECG of 14-AUG-2023 15:28, Vent. rate has increased BY 39 BPM Referred By: Generic ED Physician Electronically Signed By:Brad French
--- NOTE | 2023-08-17 11:46 | ED.CHESTPAIN ---
HPI - Chest Pain General Stated Complaint: Chest pain, shortness of breath Related Data Home Medications Medication Instructions Recorded Confirmed apixaban 5 mg tablet (Eliquis) 5 mg PO BID 09/30/21 08/11/23 dulaglutide 1.5 mg/0.5 mL 1 mg subcut Q7D 02/05/23 08/11/23 subcutaneous pen injector (Trulicity) albuterol sulfate 90 mcg/actuation 2 puff inhalation Q4H PRN 06/25/23 08/11/23 aerosol inhaler (ProAir HFA) Shortness Of Breath diltiazem HCl 300 mg 300 mg PO DAILY 06/25/23 08/11/23 tablet,extended release 24 hr (Matzim LA) buspirone 5 mg tablet 5 mg PO BID 08/11/23 08/11/23 cholecalciferol (vitamin D3) 25 25 mcg PO DAILY 08/11/23 08/11/23 mcg (1,000 unit) tablet citalopram 20 mg tablet 20 mg PO DAILY 08/11/23 08/11/23 clopidogrel 75 mg tablet 75 mg PO DAILY 08/11/23 08/11/23 insulin glargine 100 unit/mL (3 50 unit subcut BEDTIME 08/11/23 08/11/23 mL) subcutaneous pen (Lantus Solostar U-100 Insulin) insulin lispro 100 unit/mL See Protocol subcut QIDACHS 08/11/23 08/11/23 subcutaneous solution (Humalog U-100 Insulin) ipratropium 0.5 mg-albuterol 3 mg 3 ml inhalation BID PRN sob 08/11/23 08/11/23 (2.5 mg base)/3 mL nebulization soln loratadine 10 mg tablet 10 mg PO DAILY 08/11/23 08/11/23 melatonin 3 mg tablet 3 mg PO BEDTIME 08/11/23 08/11/23 pantoprazole 40 mg tablet,delayed 40 mg PO BID 08/11/23 08/11/23 release Previous Rx's Medication Instructions Recorded atorvastatin 80 mg tablet 80 mg PO QPM #90 tabs 02/05/23 walker #1 ea 02/28/23 empagliflozin 25 mg tablet 25 mg PO DAILY #90 tabs 03/19/23 (Jardiance) blood sugar diagnostic (FreeStyle #100 ea 03/26/23 Lite Strips) lisinopril 10 1 tab PO DAILY #90 tabs 04/21/23 mg-hydrochlorothiazide 12.5 mg tablet metoprolol tartrate 50 mg tablet 50 mg PO BID #180 tabs 04/21/23 flash glucose sensor (FreeStyle #6 ea 05/14/23 Kelly 2 Sensor kit) dicyclomine 10 mg capsule 10 mg PO TIDAC #90 caps 08/14/23 Allergies Allergy/AdvReac Type Severity Reaction Status Date / Time Latex, Natural Rubber Allergy Severe blisters Verified 06/25/23 11:54 Sulfa (Sulfonamide Allergy Mild ITCHING, Verified 06/25/23 11:54 Antibiotics) rash [SULFA (SULFONAMIDE ANTIBIOTICS)] nystatin Allergy Unknown rash Verified 06/25/23 11:54 isosorbide [From Imdur] AdvReac Unknown HEADACHES, Verified 06/25/23 11:54 headache tizanidine AdvReac Unknown weakness, Verified 06/25/23 11:54 Hellucination PMFSH Past Medical History Medical History Pulmonary embolism Warfarin anticoagulation Obesity Dyslipidemia Hypertension CAD (coronary artery disease) longterm (current) use of insulin Diabetes type 2, uncontrolled Respiratory failure Obstructive sleep apnea COPD (chronic obstructive pulmonary disease) Surgical History History of carpal tunnel surgery History of cholecystectomy History of lobectomy of lung Status post tracheoplasty History of cardiac cath Family History Family History Mother No problems noted. Father No problems noted. Brother Substance use disorder Brother Substance use disorder Social History Social History Household Members: Family Household Members Other:: Lives with daughter and grandson Housing: House Do you presently have visiting nurse or other home services: No Alcohol intake: never Patient Tobacco Use Status: Former Tobacco user Quit Date: 1993 Smoked: 5 years e-Cigarette/Vaping Use: Never Used Advance Directives Date on File: 06/29/63 service: No Current occupational status: retired Cognitive needs: No Hearing needs: No Vision needs: No Course Course Course Narrative: RME: 72-year-old female with a past medical history of HLD, HTN, CAD, diabetes, COPD, sleep apnea, complaining of abdominal pain x yesterday with dark/black stool and blood. Admits to taking NSAIDs daily for arthritis. denies taking AC. Also reports feeling lightheaded EKG, Labs, UA, Occult stool, CTAP ordered Full HPI, ROS and PE to be performed by primary ED provider. Discharge Plan Discharge Prescriptions: No Action Jardiance 25 mg tablet 25 mg PO DAILY Qty: 90 1RF (DME) FreeStyle Lite Strips Strip See Rx Instructions .Route Qty: 100 3RF Rx Instructions: test blood sugar once a day metoprolol tartrate 50 mg tablet 50 mg PO BID Qty: 180 3RF lisinopril-hydrochlorothiazide 10-12.5 mg tablet 1 tab PO DAILY Qty: 90 3RF Hold Instructions: Resume on 06/30/23. (DME) FreeStyle Kelly 2 Sensor Kit See Rx Instructions .ROUTE .MEDSUPPLY Qty: 6 3RF Rx Instructions: As directed every 2 weeks (DME) bel[facility] [place] See Rx Instructions .Route Qty: 1 0RF Rx Instructions: As directed clopidogrel 75 mg tablet 75 mg PO DAILY pantoprazole 40 mg tablet,delayed release (DR/EC) 40 mg PO BID ipratropium-albuterol 0.5 mg-3 mg(2.5 mg base)/3 mL solution for nebulization 3 ml inhalation BID PRN (Reason: sob) buspirone 5 mg tablet 5 mg PO BID melatonin 3 mg Tablet 3 mg PO BEDTIME citalopram 20 mg tablet 20 mg PO DAILY loratadine 10 mg Tablet 10 mg PO DAILY cholecalciferol (vitamin D3) 25 mcg (1,000 unit) Tablet 25 mcg PO DAILY insulin lispro [Humalog U-100 Insulin] 100 unit/mL solution See Protocol subcut QIDACHS Protocol: Insulin Correction Scale Less than or equal to 110 ---- Give (units): 0 111 to 150 Give (units): 12 151 to 200 Give (units): 14 201 to 250 Give (units): 16 251 to 300 Give (units): 18 301 to 350 Give (units): 20 Greater than 350 Give (units): 20 Call MD if Blood Glucose > : 350 insulin glargine [Lantus Solostar U-100 Insulin] 100 unit/mL (3 mL) insulin pen 50 unit subcut BEDTIME dicyclomine 10 mg Capsule 10 mg PO TIDAC Qty: 90 0RF diltiazem HCl [Matzim LA] 300 mg tablet extended release 24 hr 300 mg PO DAILY albuterol sulfate [ProAir HFA] 90 mcg/actuation Hfa Aerosol Inhaler 2 puff INHALATION Q4H PRN (Reason: Shortness Of Breath) Hold Instructions: Resume on 06/29/23. Trulicity 1.5 mg/0.5 mL pen injector 1 mg subcut Q7D atorvastatin 80 mg tablet 80 mg PO QPM Qty: 90 2RF Eliquis 5 mg tablet 5 mg PO BID Hold Instructions: Resume on 06/30/23. hold until patient on iv heparin
--- NOTE | 2023-08-17 12:14 | ED.SOB ---
HPI - SOB/Dyspnea General Chief Complaint: Dyspnea Stated Complaint: Chest pain, shortness of breath Time Seen by Provider: 08/17/23 12:56 Related Data Home Medications Medication Instructions Recorded Confirmed apixaban 5 mg tablet (Eliquis) 5 mg PO BID 09/30/21 08/11/23 dulaglutide 1.5 mg/0.5 mL 1 mg subcut Q7D 02/05/23 08/11/23 subcutaneous pen injector (Trulicity) albuterol sulfate 90 mcg/actuation 2 puff inhalation Q4H PRN 06/25/23 08/11/23 aerosol inhaler (ProAir HFA) Shortness Of Breath diltiazem HCl 300 mg 300 mg PO DAILY 06/25/23 08/11/23 tablet,extended release 24 hr (Matzim LA) buspirone 5 mg tablet 5 mg PO BID 08/11/23 08/11/23 cholecalciferol (vitamin D3) 25 25 mcg PO DAILY 08/11/23 08/11/23 mcg (1,000 unit) tablet citalopram 20 mg tablet 20 mg PO DAILY 08/11/23 08/11/23 clopidogrel 75 mg tablet 75 mg PO DAILY 08/11/23 08/11/23 insulin glargine 100 unit/mL (3 50 unit subcut BEDTIME 08/11/23 08/11/23 mL) subcutaneous pen (Lantus Solostar U-100 Insulin) insulin lispro 100 unit/mL See Protocol subcut QIDACHS 08/11/23 08/11/23 subcutaneous solution (Humalog U-100 Insulin) ipratropium 0.5 mg-albuterol 3 mg 3 ml inhalation BID PRN sob 08/11/23 08/11/23 (2.5 mg base)/3 mL nebulization soln loratadine 10 mg tablet 10 mg PO DAILY 08/11/23 08/11/23 melatonin 3 mg tablet 3 mg PO BEDTIME 08/11/23 08/11/23 pantoprazole 40 mg tablet,delayed 40 mg PO BID 08/11/23 08/11/23 release Previous Rx's Medication Instructions Recorded atorvastatin 80 mg tablet 80 mg PO QPM #90 tabs 02/05/23 walker #1 ea 02/28/23 empagliflozin 25 mg tablet 25 mg PO DAILY #90 tabs 03/19/23 (Jardiance) blood sugar diagnostic (FreeStyle #100 ea 03/26/23 Lite Strips) lisinopril 10 1 tab PO DAILY #90 tabs 04/21/23 mg-hydrochlorothiazide 12.5 mg tablet metoprolol tartrate 50 mg tablet 50 mg PO BID #180 tabs 04/21/23 flash glucose sensor (FreeStyle #6 ea 05/14/23 Kelly 2 Sensor kit) dicyclomine 10 mg capsule 10 mg PO TIDAC #90 caps 08/14/23 Allergies Allergy/AdvReac Type Severity Reaction Status Date / Time Latex, Natural Rubber Allergy Severe blisters Verified 06/25/23 11:54 Sulfa (Sulfonamide Allergy Mild ITCHING, Verified 06/25/23 11:54 Antibiotics) rash [SULFA (SULFONAMIDE ANTIBIOTICS)] nystatin Allergy Unknown rash Verified 06/25/23 11:54 isosorbide [From Imdur] AdvReac Unknown HEADACHES, Verified 06/25/23 11:54 headache tizanidine AdvReac Unknown weakness, Verified 06/25/23 11:54 Hellucination PMFSH Past Medical History Medical History Pulmonary embolism Warfarin anticoagulation Obesity Dyslipidemia Hypertension CAD (coronary artery disease) nursing home (current) use of insulin Diabetes type 2, uncontrolled Respiratory failure Obstructive sleep apnea COPD (chronic obstructive pulmonary disease) Surgical History History of carpal tunnel surgery History of cholecystectomy History of lobectomy of lung Status post tracheoplasty History of cardiac cath Family History Family History Mother No problems noted. Father No problems noted. Brother Substance use disorder Brother Substance use disorder Social History Social History Household Members: Family Household Members Other:: Lives with daughter and grandson Housing: House Do you presently have visiting nurse or other home services: No Alcohol intake: never Patient Tobacco Use Status: Former Tobacco user Quit Date: 1993 Smoked: 5 years Smoked in Last 30 Days: No e-Cigarette/Vaping Use: Never Used Use of substances other than those prescribed or required for medical reasons: No Advance Directives: Yes Advance Directives on File: Yes Advance Directives Date on File: 06/29/23 service: No Current occupational status: retired Cognitive needs: No Hearing needs: No Vision needs: No Physical Exam Vital Signs: Vital Signs: Last Vital Signs Temp 98.3 F 08/17/23 12:12 Pulse 126 H 08/17/23 13:23 Resp 20 08/17/23 13:23 BP 148/61 H 08/17/23 13:23 Pulse Ox 94 08/17/23 13:23 O2 Del Method Room Air 08/17/23 13:23 BMI result Body Mass Index 36.1 Course Course Course Narrative: RME: 72F PMH DM, obesity, lung ca s/p lobectomy, CKD IIIB, CAD s/p stents 06/30/23, htn, crystal, hld, copd, paroxysmal afib, histoyr of PE, Full HPI, ROS and PE to be performed by primary ED provider. Medications Administered Discontinued Medications Generic Name Dose Route Start Last Admin Trade Name Jamilq PRN Reason Stop Dose Admin Albuterol Sulfate 5 mg/ 0 mg 08/17/23 12:28 08/17/23 12:33 Albuterol/Ipratropium 3 ml INHALE 08/17/23 12:29 2.5 each ONCE ONE Administration Albuterol Sulfate 5 mg/ 0 mg 08/17/23 12:54 08/17/23 12:59 Albuterol/Ipratropium 3 ml INHALE 08/17/23 12:55 2.5 each ONCE ONE Administration Methylprednisolone Sodium Succinate 125 mg 08/17/23 13:12 08/17/23 13:28 Methylprednisolone Sod Succ 125 Mg/2 Ml Vial IVPUSH 08/17/23 13:13 125 mg ONCE ONE Administration Medical Decision Making Lab Data 08/17/23 13:24 08/17/23 13:24 Labs: Lab Results 08/17/23 Range/Units 13:24 WBC 10.3 (4.8-10.8) X10*3/uL RBC 3.91 L (4.20-5.50) X10*6/uL Hgb 11.0 L (12.0-16.0) g/dl Hct 35.1 L (37.0-47.0) % MCV 89.8 (80.0-98.0) fL MCH 28.1 (27.0-33.0) pg MCHC 31.3 (31.0-35.0) g/dl RDW 15.8 (11.0-16.0) % Plt Count 226 (160-400) X10*3/uL MPV 9.6 (9.4-12.3) fL Immature Gran % (Auto) 0.5 H (0.0-0.4) % Neut % (Auto) 56.0 (45-73) % Lymph % (Auto) 32.4 (20-40) % [place] % (Auto) 5.9 (2-11) % Eos % (Auto) 4.7 H (0-4) % Baso % (Auto) 0.5 (0-2) % Lymph # (Auto) 3.3 (1.2-4.9) X10*3/uL [place] # (Auto) 0.6 (0.1-1.2) X10*3/uL Eos # (Auto) 0.5 H (0.0-0.4) X10*3/uL Baso # (Auto) 0.1 (0.0-0.2) X10*3/uL Abs Immat Gran (auto) 0.05 H (0.00-0.03) X10*3/uL Absolute Neuts (auto) 5.8 (2.0-8.3) x10*3/uL Absolute Nucleated RBC 0.000 (0.0-0.012) X10*3/uL Nucleated RBC % (auto) 0.0 (0.0-0.2) /100WBC PT 11.6 (11.1-13.3) SEC INR 1.0 (0.9-1.1) Sodium 143 (135-145) mmol/L Potassium 4.3 (3.3-5.1) mmol/L Chloride 107 (96-108) mmol/L Carbon Dioxide 23 (22-29) mmol/L Anion Gap 16 (12-20) BUN 20 H (9-16) mg/dL Creatinine 1.24 (0.5-1.4) mg/dL Estim Creat Clear Calc 44.6 Estimated GFR 42 Random Glucose 224 H (60-115) mg/dL Calcium 8.9 (8.4-10.2) mg/dL Magnesium 3.1 H (1.6-2.6) mg/dL Total Bilirubin 0.4 (0.0-1.0) mg/dL Direct Bilirubin 0.1 (0.0-0.5) mg/dL AST 24 (5-31) U/L ALT 10 (0-31) U/L Alkaline Phosphatase 100 (39-117) U/L Troponin I High Sens 6.9 (<3.5-17.0) ng/L B-Natriuretic Peptide 267 H (<100) pg/mL Total Protein 7.2 (6.5-8.0) g/dL Albumin 3.9 (3.5-5.0) g/dL Influenza Type A (PCR) NEGATIVE (Negative) Influenza Type B (PCR) NEGATIVE (Negative) RSV RNA Qual (PCR) NEGATIVE (Negative) SARS-CoV-2 RNA (RT-PCR) NEGATIVE (Negative) Procedures Procedure Narrative Procedure Narrative: I was asked to obtain IV access for angiography for the patient.. I obtained verbal consent for the patient using ultrasound guidance I was able to place a 20 gauge peripheral IV in the left upper arm. There was good blood return and the line flushed well. I secured the line with sterile dressing. No complications Discharge Plan Discharge Clinical Impression: Acute exacerbation of chronic obstructive pulmonary disease, Pneumonia, Pleural effusion Patient Disposition: Still a Patient Prescriptions: No Action Jardiance 25 mg tablet 25 mg PO DAILY Qty: 90 1RF (DME) FreeStyle Lite Strips Strip See Rx Instructions .Route Qty: 100 3RF Rx Instructions: test blood sugar once a day metoprolol tartrate 50 mg tablet 50 mg PO BID Qty: 180 3RF lisinopril-hydrochlorothiazide 10-12.5 mg tablet 1 tab PO DAILY Qty: 90 3RF Hold Instructions: Resume on 06/30/23. (DME) FreeStyle Kelly 2 Sensor Kit See Rx Instructions .ROUTE .MEDSUPPLY Qty: 6 3RF Rx Instructions: As directed every 2 weeks (DME) [facility] [place] See Rx Instructions .Route Qty: 1 0RF Rx Instructions: As directed clopidogrel 75 mg tablet 75 mg PO DAILY pantoprazole 40 mg tablet,delayed release (DR/EC) 40 mg PO BID ipratropium-albuterol 0.5 mg-3 mg(2.5 mg base)/3 mL solution for nebulization 3 ml inhalation BID PRN (Reason: sob) buspirone 5 mg tablet 5 mg PO BID melatonin 3 mg Tablet 3 mg PO BEDTIME citalopram 20 mg tablet 20 mg PO DAILY loratadine 10 mg Tablet 10 mg PO DAILY cholecalciferol (vitamin D3) 25 mcg (1,000 unit) Tablet 25 mcg PO DAILY insulin lispro [Humalog U-100 Insulin] 100 unit/mL solution See Protocol subcut QIDAS Protocol: Insulin Correction Scale Less than or equal to 110 ---- Give (units): 0 111 to 150 Give (units): 12 151 to 200 Give (units): 14 201 to 250 Give (units): 16 251 to 300 Give (units): 18 301 to 350 Give (units): 20 Greater than 350 Give (units): 20 Call MD if Blood Glucose > : 350 insulin glargine [Lantus Solostar U-100 Insulin] 100 unit/mL (3 mL) insulin pen 50 unit subcut BEDTIME dicyclomine 10 mg Capsule 10 mg PO TIDAC Qty: 90 0RF diltiazem HCl [Matzim LA] 300 mg tablet extended release 24 hr 300 mg PO DAILY albuterol sulfate [ProAir HFA] 90 mcg/actuation Hfa Aerosol Inhaler 2 puff INHALATION Q4H PRN (Reason: Shortness Of Breath) Hold Instructions: Resume on 06/29/23. Trulicity 1.5 mg/0.5 mL pen injector 1 mg subcut Q7D atorvastatin 80 mg tablet 80 mg PO QPM Qty: 90 2RF Eliquis 5 mg tablet 5 mg PO BID Hold Instructions: Resume on 06/30/23. hold until patient on iv heparin
[2023-08-17] MEDS: Albuterol Sulfate 5 MG, Albuterol/Iprat 2.5/0.5MG 3 ML 3 ML INHALE ×2 (12:33→12:59)
--- NOTE | 2023-08-17 13:13 | ED_ITS ---
HPI - SOB/Dyspnea General Chief Complaint: Dyspnea Stated Complaint: Chest pain, shortness of breath Time Seen by Provider: 08/17/23 12:56 History of Present Illness HPI Narrative: 72F PMH DM, obesity, lung ca s/p lobectomy, CKD IIIB, CAD s/p stents 06/30/23, htn, crystal, hld, copd, paroxysmal afib, history of PE, admitted from 08/11/2023 until 08/15/2023 for epigastric pain of unclear etiology, patient did have an elevated lipase but CT scan of the abdomen was unremarkable. GI consult was concerned that the patient may have peptic ulcer disease versus irritable bowel since and recommended dicyclomine and proton pump inhibitor. Patient states that she went home yesterday and prior to being discharged she felt short of breath and had wheezing. She states she was given a nebulizer treatment prior to being discharged. At home she continued to wheeze and states she had to use her nebulizer twice. Morning she felt more short of breath with patient states she has had a cough that is productive of green sputum. She also states that she is having pain in her right or posterior chest which is worse with breathing and with coughing. She denied fever, chills, nausea, vomiting, diarrhea. She states her last bowel movement was yesterday. She states that her epigastric pain has improved but is not resolved completely. Related Data Home Medications Medication Instructions Recorded Confirmed apixaban 5 mg tablet (Eliquis) 5 mg PO BID 09/30/21 08/11/23 dulaglutide 1.5 mg/0.5 mL 1 mg subcut Q7D 02/05/23 08/11/23 [facility] albuterol sulfate 90 mcg/actuation 2 puff inhalation Q4H PRN 06/25/23 08/11/23 aerosol inhaler (ProAir HFA) Shortness Of Breath diltiazem HCl 300 mg 300 mg PO DAILY 06/25/23 08/11/23 tablet,extended release 24 hr (Matzim LA) buspirone 5 mg tablet 5 mg PO BID 08/11/23 08/11/23 cholecalciferol (vitamin D3) 25 25 mcg PO DAILY 08/11/23 08/11/23 mcg (1,000 unit) tablet citalopram 20 mg tablet 20 mg PO DAILY 08/11/23 08/11/23 clopidogrel 75 mg tablet 75 mg PO DAILY 08/11/23 08/11/23 insulin glargine 100 unit/mL (3 50 unit subcut BEDTIME 08/11/23 08/11/23 mL) subcutaneous pen (Lantus Solostar U-100 Insulin) insulin lispro 100 unit/mL See Protocol subcut QIDACHS 08/11/23 08/11/23 subcutaneous solution (Humalog U-100 Insulin) ipratropium 0.5 mg-albuterol 3 mg 3 ml inhalation BID PRN sob 08/11/23 08/11/23 (2.5 mg base)/3 mL nebulization soln loratadine 10 mg tablet 10 mg PO DAILY 08/11/23 08/11/23 melatonin 3 mg tablet 3 mg PO BEDTIME 08/11/23 08/11/23 pantoprazole 40 mg tablet,delayed 40 mg PO BID 08/11/23 08/11/23 release Previous Rx's Medication Instructions Recorded atorvastatin 80 mg tablet 80 mg PO QPM #90 tabs 02/05/23 walker #1 ea 02/28/23 empagliflozin 25 mg tablet 25 mg PO DAILY #90 tabs 03/19/23 (Jardiance) blood sugar diagnostic (FreeStyle #100 ea 03/26/23 Lite Strips) lisinopril 10 1 tab PO DAILY #90 tabs 04/21/23 mg-hydrochlorothiazide 12.5 mg tablet metoprolol tartrate 50 mg tablet 50 mg PO BID #180 tabs 04/21/23 flash glucose sensor (FreeStyle #6 ea 05/14/23 Kelly 2 Sensor kit) dicyclomine 10 mg capsule 10 mg PO TIDAC #90 caps 08/14/23 Allergies Allergy/AdvReac Type Severity Reaction Status Date / Time Latex, Natural Rubber Allergy Severe blisters Verified 06/25/23 11:54 Sulfa (Sulfonamide Allergy Mild ITCHING, Verified 06/25/23 11:54 Antibiotics) rash [SULFA (SULFONAMIDE ANTIBIOTICS)] nystatin Allergy Unknown rash Verified 06/25/23 11:54 isosorbide [From Imdur] AdvReac Unknown HEADACHES, Verified 06/25/23 11:54 headache tizanidine AdvReac Unknown weakness, Verified 06/25/23 11:54 Hellucination Review of Systems 2 Review of Systems: Yes all other systems are reviewed and are negative [facility] Past Medical History Attestation statement: The following information was validated with the patient. [facility] Narrative: Social history: She denies tobacco use. She occasionally drinks alcohol. She denies drug use. She is here in the emergency department with her daughter, Rachana. 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 Father No problems noted. Brother Substance use disorder Brother Substance use disorder Social History Social History Household Members: Family Household Members Other:: Lives with daughter and grandson Housing: House Do you presently have visiting nurse or other home services: No Alcohol intake: never Patient Tobacco Use Status: Former Tobacco user Quit Date: 1993 Smoked: 5 years Smoked in Last 30 Days: No e-Cigarette/Vaping Use: Never Used Use of substances other than those prescribed or required for medical reasons: No Advance Directives: Yes Advance Directives on File: Yes Advance Directives Date on File: 06/29/23 service: No Current occupational status: retired Cognitive needs: No Hearing needs: No Vision needs: No Physical Exam 2 Vital Signs: Vital Signs: Last Vital Signs Temp 98.3 F 08/17/23 12:12 Pulse 126 H 08/17/23 13:23 Resp 20 08/17/23 13:23 BP 148/61 H 08/17/23 13:23 Pulse Ox 94 08/17/23 13:23 O2 Del Method Room Air 08/17/23 13:23 BMI result Body Mass Index 36.1 Vital signs revealed an elevated pulse of 105 and elevated respiratory rate of 22, elevated blood pressure of 177/93 with an O2 saturation of 93% on room air which is normal Exam General: Awake, dyspnea, tachypnea Head: Normocephalic, atraumatic EENT: PERRL, Lids normal, sclera normal, conjunctiva normal, nose normal , ears normal, throat without erythema or exudates Neck: Supple, no adenopathy, no trachea midline or C-spine tenderness Lung: Diffuse wheezing, no rales or rhonchi, breath sounds symmetric Chest: symmetric movement, nontender Heart: Tachycardia with regular rhythm, normal S1, S2 no murmurs or rubs Abdomen: soft, obese, diffuse abdominal tenderness with increased tenderness in the epigastric area, nondistended, normal bowel sounds Back: no vertebral tenderness, no CVAT Extremities: no deformities, moves all extremities symmetrically Neuro: Awake, alert, oriented, normal speech, cranial nerves intact, moves all extremities symmetrically Psych: Pleasant, cooperative Medications Administered Discontinued Medications Generic Name Dose Route Start Last Admin Trade Name Freq PRN Reason Stop Dose Admin Albuterol Sulfate 5 mg/ 0 mg 08/17/23 12:28 08/17/23 12:33 Albuterol/Ipratropium 3 ml INHALE 08/17/23 12:29 2.5 each ONCE ONE Administration Albuterol Sulfate 5 mg/ 0 mg 08/17/23 12:54 08/17/23 12:59 Albuterol/Ipratropium 3 ml INHALE 08/17/23 12:55 2.5 each ONCE ONE Administration Methylprednisolone Sodium Succinate 125 mg 08/17/23 13:12 08/17/23 13:28 Methylprednisolone Sod Succ 125 Mg/2 Ml Vial IVPUSH 08/17/23 13:13 125 mg ONCE ONE Administration Medical Decision Making Medical Decision Making [facility] Narrative: 72F PMH DM, obesity, lung ca s/p lobectomy, CKD IIIB, CAD s/p stents 06/30/23, htn, crystal, hld, copd, paroxysmal afib, history of PE, admitted from 08/11/2023 until 08/15/2023 for epigastric pain of unclear etiology (PUD, IBS, versus pancreatic) discharged yesterday from the hospital, prior to discharge she did have shortness of breath treated with nebulizer who presents emergency department for evaluation of shortness of breath using her nebulizer last night and this morning. Patient did complain of cough times several days which she states is productive in she also has right posterior chest pain. Vital signs did reveal an elevated blood pressure of 177/67, elevated pulse of 101 126 beats per minute and O2 saturation of 93% on room air which was normal. Lung exam did reveal diffuse wheezing. Following evaluation was ordered: CBC, BMP, liver panel, lipase, occult stool, PT/INR, PTT, BNP, troponin, magnesium, COVID-19, influenza, RSV, urinalysis, blood cultures x2 Patient was treated with a bronchodilator protocol with 5 mg of albuterol and 3 mL of DuoNeb x2 treatments and Solu-Medrol 125 mg IV 15:42 My interpretation patient's laboratory evaluation is as follows: WBC normal 10,300. Chronic normocytic anemia with an H&H of 11 and 35.1. INR normal 1.0. BUN elevated 20 with normal creatinine of 1.24. Glucose elevated 224 . High sensitive troponin I was detectable but not elevated at 6.9. COVID-19, influenza and RSV were negative. Chest x-ray is concerning for new left-sided pleural effusion with atelectasis. I am concerned the patient may have pneumonia versus pulmonary embolism. Patient was treated with ceftriaxone 1 g IV and azithromycin 500 mg IV. Patient's pain was treated with morphine 4 mg IV. I did discuss admission for COPD, pneumonia and further evaluation of the left pleural effusion. At the end of my shift, the CT pulmonary angiogram PE protocol is pending therefore I turned the patient's care over to my colleague, Dr. Darling Stevens Differential Diagnosis Differential Diagnoses: The differential diagnosis associated with the presentation includes Differential diagnosis includes was not limited to pneumonia, bronchitis, COPD exacerbation, anemia, electrolyte abnormality Admission/Observation Consideration of admission/observation: Escalation of care including admission/observation considered Lab Data [facility] Lab Attestation statement: I reviewed the patient's lab results. Please see [facility] above her my sign language interpreter 08/17/23 13:24 08/17/23 13:24 Labs: Lab Results 08/17/23 Range/Units 13:24 WBC 10.3 (4.8-10.8) X10*3/uL RBC 3.91 L (4.20-5.50) X10*6/uL Hgb 11.0 L (12.0-16.0) g/dl Hct 35.1 L (37.0-47.0) % MCV 89.8 (80.0-98.0) fL MCH 28.1 (27.0-33.0) pg MCHC 31.3 (31.0-35.0) g/dl RDW 15.8 (11.0-16.0) % Plt Count 226 (160-400) X10*3/uL MPV 9.6 (9.4-12.3) fL Immature Gran % (Auto) 0.5 H (0.0-0.4) % Neut % (Auto) 56.0 (45-73) % Lymph % (Auto) 32.4 (20-40) % Sevier % (Auto) 5.9 (2-11) % Eos % (Auto) 4.7 H (0-4) % Baso % (Auto) 0.5 (0-2) % Lymph # (Auto) 3.3 (1.2-4.9) X10*3/uL Sevier # (Auto) 0.6 (0.1-1.2) X10*3/uL Eos # (Auto) 0.5 H (0.0-0.4) X10*3/uL Baso # (Auto) 0.1 (0.0-0.2) X10*3/uL Abs Immat Gran (auto) 0.05 H (0.00-0.03) X10*3/uL Absolute Neuts (auto) 5.8 (2.0-8.3) x10*3/uL Absolute Nucleated RBC 0.000 (0.0-0.012) X10*3/uL Nucleated RBC % (auto) 0.0 (0.0-0.2) /100WBC PT 11.6 (11.1-13.3) SEC INR 1.0 (0.9-1.1) Sodium 143 (135-145) mmol/L Potassium 4.3 (3.3-5.1) mmol/L Chloride 107 (96-108) mmol/L Carbon Dioxide 23 (22-29) mmol/L Anion Gap 16 (12-20) BUN 20 H (9-16) mg/dL Creatinine 1.24 (0.5-1.4) mg/dL Estim Creat Clear Calc 44.6 Estimated GFR 42 Random Glucose 224 H (60-115) mg/dL Calcium 8.9 (8.4-10.2) mg/dL Magnesium 3.1 H (1.6-2.6) mg/dL Total Bilirubin 0.4 (0.0-1.0) mg/dL Direct Bilirubin 0.1 (0.0-0.5) mg/dL AST 24 (5-31) U/L ALT 10 (0-31) U/L Alkaline Phosphatase 100 (39-117) U/L Troponin I High Sens 6.9 (<3.5-17.0) ng/L B-Natriuretic Peptide 267 H (<100) pg/mL Total Protein 7.2 (6.5-8.0) g/dL Albumin 3.9 (3.5-5.0) g/dL Influenza Type A (PCR) NEGATIVE (Negative) Influenza Type B (PCR) NEGATIVE (Negative) RSV RNA Qual (PCR) NEGATIVE (Negative) SARS-CoV-2 RNA (RT-PCR) NEGATIVE (Negative) Independent Interpretation I performed an independent interpretation of an: Plain X-Ray Interpretation: My interpretation patient's one view chest x-ray is as follows: New left pleural effusion compared to 08/11/2023 Radiology Impression Discussion of test interpretation with radiology: I have reviewed the radiologist's reading. Radiologist Impression: XR chest 2V IMPRESSION: Left pleural effusion with underlying atelectasis. Mild dorsal spine spondylosis. Dictated By: Marco Candelaria MD Critical Care Time Critical Care Time Critical Care Time: Yes Total Critical Care Time: 45 Attestation: Critical Care: The patient was critically ill with a high probability of imminent or life threatening deterioration. I spent greater than 30 minutes of discontinuous time evaluating the patient,delivering critical care at the bedside, discussing and evaluating pertinent data with consultants. Critical care time does not include time spent performing separately billable procedures or teaching. Total time spent performing critical care was 45 minutes. Discharge Plan Discharge Clinical Impression: Acute exacerbation of chronic obstructive pulmonary disease, Pleural effusion Pneumonia Qualifiers: Laterality: right Lung location: lower lobe of lung Patient Disposition: Still a Patient Prescriptions: No Action Jardiance 25 mg tablet 25 mg PO DAILY Qty: 90 1RF (DME) FreeStyle Lite Strips Strip See Rx Instructions .Route Qty: 100 3RF Rx Instructions: test blood sugar once a day metoprolol tartrate 50 mg tablet 50 mg PO BID Qty: 180 3RF lisinopril-hydrochlorothiazide 10-12.5 mg tablet 1 tab PO DAILY Qty: 90 3RF Hold Instructions: Resume on 06/30/23. (DME) FreeStyle Kelly 2 Sensor Kit See Rx Instructions .ROUTE .MEDSUPPLY Qty: 6 3RF Rx Instructions: As directed every 2 weeks (DME) belgica [facility] See Rx Instructions .Route Qty: 1 0RF Rx Instructions: As directed clopidogrel 75 mg tablet 75 mg PO DAILY pantoprazole 40 mg tablet,delayed release (DR/EC) 40 mg PO BID ipratropium-albuterol 0.5 mg-3 mg(2.5 mg base)/3 mL solution for nebulization 3 ml inhalation BID PRN (Reason: sob) buspirone 5 mg tablet 5 mg PO BID melatonin 3 mg Tablet 3 mg PO BEDTIME citalopram 20 mg tablet 20 mg PO DAILY loratadine 10 mg Tablet 10 mg PO DAILY cholecalciferol (vitamin D3) 25 mcg (1,000 unit) Tablet 25 mcg PO DAILY insulin lispro [Humalog U-100 Insulin] 100 unit/mL solution See Protocol subcut QIDACHS Protocol: Insulin Correction Scale Less than or equal to 110 ---- Give (units): 0 111 to 150 Give (units): 12 151 to 200 Give (units): 14 201 to 250 Give (units): 16 251 to 300 Give (units): 18 301 to 350 Give (units): 20 Greater than 350 Give (units): 20 Call MD if Blood Glucose > : 350 insulin glargine [Lantus Solostar U-100 Insulin] 100 unit/mL (3 mL) insulin pen 50 unit subcut BEDTIME dicyclomine 10 mg Capsule 10 mg PO TIDAC Qty: 90 0RF diltiazem HCl [Matzim LA] 300 mg tablet extended release 24 hr 300 mg PO DAILY albuterol sulfate [ProAir HFA] 90 mcg/actuation Hfa Aerosol Inhaler 2 puff INHALATION Q4H PRN (Reason: Shortness Of Breath) Hold Instructions: Resume on 06/29/23. Trulicity 1.5 mg/0.5 mL pen injector 1 mg subcut Q7D atorvastatin 80 mg tablet 80 mg PO QPM Qty: 90 2RF Eliquis 5 mg tablet 5 mg PO BID Hold Instructions: Resume on 06/30/23. hold until patient on iv heparin
[2023-08-17] MEDS: methylPREDNISolone Sod Succ 125 MG/2 ML VIAL IVPUSH (13:28)
[2023-08-17 13:30] LABS: MANUAL DIFF FLAG NO
[2023-08-17 13:36] LABS: Prothrombin Time 11.6 SEC (11.1-13.3)
[2023-08-17 13:40] LABS: Basophils Absolute Auto 0.1 X10*3/uL (0.0-0.2); Basophils Percent Auto 0.5 % (0-2); Eosinophils Absolute Auto 0.5 X10*3/uL (0.0-0.4); Eosinophils Percent Auto 4.7 % (0-4); Hematocrit 35.1 % (37.0-47.0); Imm Gran Abs Auto 0.05 X10*3/uL (0.00-0.03); Imm Gran Pct Auto 0.5 % (0.0-0.4); Lymphocytes Absolute Auto 3.3 X10*3/uL (1.2-4.9); Lymphocytes Percent Auto 32.4 % (20-40); Mean Corpuscular HGB Conc 31.3 g/dl (31.0-35.0); Mean Corpuscular Hemoglobin 28.1 pg (27.0-33.0); Mean Corpuscular Volume 89.8 fL (80.0-98.0); Mean Platelet Volume 9.6 fL (9.4-12.3); Monocytes Absolute Auto 0.6 X10*3/uL (0.1-1.2); Monocytes Percent Auto 5.9 % (2-11); Neutrophils Absolute Auto 5.8 x10*3/uL (2.0-8.3); Platelet Count 226 X10*3/uL (160-400); Red Blood Count 3.91 X10*6/uL (4.20-5.50); Red Cell Distribution Width 15.8 % (11.0-16.0); White Blood Count 10.3 X10*3/uL (4.8-10.8)
[2023-08-17 13:53] LABS: B Type Natriuretic Peptide 267 pg/mL (<100)
[2023-08-17 14:04] LABS: Albumin Level 3.9 g/dL (3.5-5.0); Calcium 8.9 mg/dL (8.4-10.2); Chloride 107 mmol/L (96-108); Glucose Random 224 mg/dL (60-115); Potassium 4.3 mmol/L (3.3-5.1); Sodium 143 mmol/L (135-145)
[2023-08-17 14:08] LABS: Influenza A PCR NEGATIVE (Negative); Influenza B PCR NEGATIVE (Negative); Resp Syncy Virus RNA Qual PCR NEGATIVE (Negative); SARS COV2 PCR INHOUSE NEGATIVE (Negative)
[2023-08-17 14:20] LABS: Alanine Aminotransferase 10 U/L (0-31); Alkaline Phosphatase 100 U/L (39-117); Anion Gap 16 (12-20); Aspartate Amino Transferase 24 U/L (5-31); Bilirubin Direct 0.1 mg/dL (0.0-0.5); Bilirubin Total 0.4 mg/dL (0.0-1.0); Blood Urea Nitrogen 20 mg/dL (9-16); Carbon Dioxide 23 mmol/L (22-29); Creatinine Clr Calc Pharmacy 44.6; Estimated Glomerular Filt Rate 42; Magnesium 3.1 mg/dL (1.6-2.6); Total Protein 7.2 g/dL (6.5-8.0)
[2023-08-17 14:37] LABS: Troponin-I High Sensitivity 6.9 ng/L (<3.5-17.0)
[2023-08-17] MEDS: Morphine Sulfate 4 MG/ML CARTRIDGE IVPUSH (17:16)
[2023-08-17] MEDS: cefTRIAXone sodium 1 GM in 0.9 % Sodium Chloride 50 ML IV (17:16)
[2023-08-17] MEDS: Azithromycin 500 MG in 0.9 % Sodium Chloride 250 ML 125 MG IV (17:16)
--- NOTE | 2023-08-17 17:49 | PHA.MEDREC ---
Pharmacy Consult ? Medication Reconciliation Pharmacy has completed the medication reconciliation. Patient just discharged yesterday 08/16. Med rec done by discharge summary. Kelly Collins, KirillD
--- NOTE | 2023-08-17 19:36 | P.HPHOSP_ITS ---
History of Present Illness Date of Service: 08/17/23 Attending physician on admission: Kenrick Millard Chief Complaint: cough, r flank pain 72-year-old female with paroxysmal atrial fibrillation anticoagulated with Eliquis, CKD stage 3, mood disorder, fibromyalgia, history of pulmonary embolism on lifelong anticoagulation, CAD with recent NSTEMI s/p stent placement on 06/30 on DAPT , hyperlipidemia, hypertension, ALYSIA on CPAP, and insulin-dependent type 2 diabetes presented to the ED earlier today for evaluation of wheezing, shortness of breath, productive cough with green sputum production ongoing for 3-4 days. She is reporting 03/15 posterior right-sided pleuritic chest pain. Denies any associated fevers, chills, sore throat, nasal congestion, abdominal pain, nausea, vomiting, diarrhea, urinary symptoms, orthopnea, PND, chest pain. She denies any sick contacts at home or recent travel. She was discharged yesterday having been diagnosed with acute pancreatitis and IBS and was discharged on high-dose PPI and Bentyl. On arrival, patient hypertensive to 177/67, vitals otherwise stable. She was intermittently tachypneic to 30 and became tachycardic following DuoNeb to 120. On admission, blood pressure improved to 141/77. There is no leukocytosis. Renal function baseline, electrolyte levels normal. Glucose 224. Troponin within normal limits. BNP 267. Negative for COVID-19, RSV, influenza. Chest x-ray shows left pleural effusion with underlying atelectasis. Subsequent CTA chest negative for PE but does show small bilateral pleural effusions with associated mild bibasilar atelectasis. In the ED, given 125 mg methylprednisolone, 1 g IV ceftriaxone, 500 mg IV Zithromax. She has also been given 4 mg morphine and albuterol/duoneb updrafts. Review of Systems 2 Review of Systems: General: No fevers, malaise, unintentional weight loss HEENT: No blurred vision, diplopia. No sore throat, nasal congestion, rhinorrhea, sinus pain, ear pain Cardiovascular: No chest pressure, palpitations, or leg edema Respiratory: +sob, +cough, +wheezing GI: No abdominal pain, nausea, vomiting, diarrhea, constipation, melena, hematochezia : No dysuria, hematuria, increased urinary frequency, decreased urinary output MSK: No myalgia, back pain. +pleuritic chest pain Neuro: No headaches, weakness, paresthesias Skin: No rashes or lesions [facility] Medical History Paroxysmal atrial fibrillation Pulmonary embolism Obesity Dyslipidemia Hypertension CAD (coronary artery disease) FDC (current) use of insulin Diabetes type 2, uncontrolled Respiratory failure Obstructive sleep apnea COPD (chronic obstructive pulmonary disease) Family History Mother No problems noted. Father No problems noted. Brother Substance use disorder Brother Substance use disorder Surgical History History of carpal tunnel surgery History of cholecystectomy History of lobectomy of lung Status post tracheoplasty History of cardiac cath Social History Household Members: Family Household Members Other:: Lives with daughter and grandson Housing: House Do you presently have visiting nurse or other home services: No Alcohol intake: never Patient Tobacco Use Status: Former Tobacco user Quit Date: 1993 Smoked: 5 years Smoked in Last 30 Days: No e-Cigarette/Vaping Use: Never Used Use of substances other than those prescribed or required for medical reasons: No Currently Displaying Signs/Symptoms of Drug Intoxication Withdrawal: No Have you been hit, kicked, punched, or otherwise hurt by someone within the past year? If so, by whom?: No Do you feel safe in your current relationship?: Yes Is there a partner from a previous relationship who is making you feel unsafe now?: No Are you made to feel afraid or neglected: No Advance Directives: Yes Advance Directives on File: Yes Advance Directives Date on File: 06/29/23 Do you have thoughts of harming others: None Do you have a plan to hurt others: No Plan Recently lost weight without trying: No How much weight loss: Not applicable Eating poorly because of decreased appetite: No Nutrition screen score: 0 Nutrition Risks: No Nutritional Risk Patient : No : No Poor oral hygiene: No service: No Current occupational status: retired Cognitive needs: No Hearing needs: No Vision needs: No Meds Allergies Allergy/AdvReac Type Severity Reaction Status Date / Time Latex, Natural Rubber Allergy Severe blisters Verified 06/25/23 11:54 Sulfa (Sulfonamide Allergy Mild ITCHING, Verified 06/25/23 11:54 Antibiotics) rash [SULFA (SULFONAMIDE ANTIBIOTICS)] nystatin Allergy Unknown rash Verified 06/25/23 11:54 isosorbide [From Imdur] AdvReac Unknown HEADACHES, Verified 06/25/23 11:54 headache tizanidine AdvReac Unknown weakness, Verified 06/25/23 11:54 Hellucination Active Medications: Current Medications Acetaminophen (Acetaminophen 325 Mg Tablet) 650 mg PO Q6H PRN PRN Reason: Pain, Mild (Pain Scale 1-3) Albuterol/Ipratropium (Albuterol/Iprat 2.5/0.5mg 3 Ml Ampul.Neb) 3 ml INHALE RQ4H WHILE AWAKE [facility] Guaifenesin/Codeine Phosphate (Guaifen/Codeine Sf 200/20/10ml 10 Ml Liquid) 5 ml PO Q4H [facility] Azithromycin 500 mg/ Sodium (Chloride) 250 mls @ 125 mls/hr IV Q24H [facility] Lidocaine (Lidocaine 4 % Patch Adh..Patch) 1 patch TRANSDERMA DAILY [facility]; Protocol Loratadine (Loratadine 10 Mg Tablet) 10 mg PO DAILY [facility] Ondansetron HCl (Ondansetron Hcl 4 Mg/2 Ml Vial) 4 mg IVPUSH Q8H PRN PRN Reason: Nausea and Vomiting Senna (Sennosides 8.6 Mg Tablet) 17.2 mg PO BEDTIME PRN PRN Reason: Constipation Sodium Chloride (0.9 % Sodium Chloride Flush 3 Ml Syringe) 3 ml IVFLUSH QSHIFT [facility] Home Medications Medication Instructions Recorded Confirmed Last Taken Type apixaban 5 mg tablet (Eliquis) 5 mg PO BID 09/30/21 08/17/23 08/11/23 History dulaglutide 1.5 mg/0.5 mL 1 mg subcut Q7D 02/05/23 08/17/23 Unknown History subcutaneous pen injector (Trulicity) albuterol sulfate 90 mcg/actuation 2 puff inhalation Q4H PRN 06/25/23 08/17/23 Unknown History aerosol inhaler (ProAir HFA) Shortness Of Breath diltiazem HCl 300 mg 300 mg PO DAILY 06/25/23 08/17/23 08/11/23 History tablet,extended release 24 hr (Matzim [place]) buspirone 5 mg tablet 5 mg PO BID 08/11/23 08/17/23 08/11/23 History cholecalciferol (vitamin D3) 25 25 mcg PO DAILY 08/11/23 08/17/23 08/11/23 History mcg (1,000 unit) tablet citalopram 20 mg tablet 20 mg PO DAILY 08/11/23 08/17/23 08/11/23 History clopidogrel 75 mg tablet 75 mg PO DAILY 08/11/23 08/17/23 08/11/23 History insulin glargine 100 unit/mL (3 50 unit subcut BEDTIME 08/11/23 08/17/23 08/11/23 History mL) subcutaneous pen (Lantus Solostar U-100 Insulin) insulin lispro 100 unit/mL See Protocol subcut QIDACHS 08/11/23 08/17/23 08/11/23 History subcutaneous solution (Humalog U-100 Insulin) ipratropium 0.5 mg-albuterol 3 mg 3 ml inhalation BID PRN sob 08/11/23 08/17/23 Unknown History (2.5 mg base)/3 mL nebulization soln loratadine 10 mg tablet 10 mg PO DAILY 08/11/23 08/17/23 08/11/23 History melatonin 3 mg tablet 3 mg PO BEDTIME 08/11/23 08/17/23 08/11/23 History pantoprazole 40 mg tablet,delayed 40 mg PO BID 08/11/23 08/17/23 08/11/23 History release Physical Exam 2 Vital Signs and Narrative: Vital Signs: Last Vital Signs Temp 98.3 F 08/17/23 12:12 Pulse 120 H 08/17/23 17:28 Resp 18 08/17/23 17:28 BP 141/77 H 08/17/23 17:28 Pulse Ox 93 08/17/23 17:28 O2 Del Method Room Air 08/17/23 17:28 BMI result Body Mass Index 36.1 Constitutional - Awake and Alert, mild distress slightly tremulous Eyes - PERRLA, EOMI Cardiovascular - S1S2, RRR, No edema Respiratory - Normal lung expansion, Normal respiratory effort, No respiratory distress, lungs diminished bilaterally with scattered expiratory wheezing Gastrointestinal - NT / ND; +BS; No rebound or guarding Extremities - no calf tenderness bilaterally, no swelling Skin - Warm/Dry Neurological - Alert & oriented x3 Psychological - Appropriate affect Results Labs 08/18/23 06:18 08/18/23 06:18 Labs: Laboratory Results - last 24 hr 08/17/23 13:24 MCV 89.8 MCH 28.1 MCHC 31.3 RDW 15.8 Plt Count 226 MPV 9.6 Immature Gran % (Auto) 0.5 H Neut % (Auto) 56.0 Lymph % (Auto) 32.4 [place] % (Auto) 5.9 Eos % (Auto) 4.7 H Baso % (Auto) 0.5 Lymph # (Auto) 3.3 [place] # (Auto) 0.6 Eos # (Auto) 0.5 H Baso # (Auto) 0.1 Abs Immat Gran (auto) 0.05 H Absolute Neuts (auto) 5.8 Absolute Nucleated RBC 0.000 Nucleated RBC % (auto) 0.0 PT 11.6 INR 1.0 Anion Gap 16 Estim Creat Clear Calc 44.6 Estimated GFR 42 Random Glucose 224 H Calcium 8.9 Magnesium 3.1 H Total Bilirubin 0.4 Direct Bilirubin 0.1 AST 24 ALT 10 Alkaline Phosphatase 100 B-Natriuretic Peptide 267 H Total Protein 7.2 Albumin 3.9 Influenza Type A (PCR) NEGATIVE Influenza Type B (PCR) NEGATIVE RSV RNA Qual (PCR) NEGATIVE SARS-CoV-2 RNA (RT-PCR) NEGATIVE Imaging Radiologist's Impressions: Impressions Chest X-Ray 08/17/23 13:40 IMPRESSION: Left pleural effusion with underlying atelectasis. Mild dorsal spine spondylosis. Chest CTA 08/17/23 17:56 IMPRESSION: No evidence for pulmonary embolism. Small bilateral pleural effusions with associated mild bibasilar atelectasis. VTE: Negative for pulmonary embolism. Assessment and Plan (1) Acute exacerbation of chronic obstructive pulmonary disease: Status: Acute (2) Pleural effusion: Status: Acute Plan 72-year-old female with paroxysmal atrial fibrillation anticoagulated with Eliquis, CKD stage 3, mood disorder, fibromyalgia, history of pulmonary embolism on lifelong anticoagulation, CAD with recent NSTEMI s/p stent placement on 06/30 on DAPT , hyperlipidemia, hypertension, ALYSIA on CPAP, and insulin-dependent type 2 diabetes admitted for acute COPD exacerbation. # acute COPD exacerbation -chest CT negative for pneumonia. Negative for COVID-19, RSV, influenza -check full viral respiratory panel -40 mg IV methylprednisolone b.i.d. -DuoNebs q.4h while awake -albuterol p.r.n. -azithromycin for pleiotropic effect -Robitussin AC for cough and severe pleuritic chest pain as well as lidocaine patches #Acute b/l pleural effusion -likely secondary to atelectasis # insulin-dependent type 2 diabetes with hyperglycemia -dose adjusted basal insulin -POC glucose, diabetic diet, Humalog on sliding scale # hypertension -blood pressure reasonably controlled on admission -continue home antihypertensives # history pulmonary embolism -continue Eliquis # paroxysmal atrial fibrillation-rate controlled -continue Eliquis, metoprolol # IBS -continue Bentyl # CAD/hyperlipidemia -recent stenting 06/30 -continue Eliquis, Plavix, metoprolol, statin # ALYSIA -CPAP at bedtime DVT prophylaxis-Eliquis Full code Patient requires inpatient stay of at least 2 midnights for management of COPD exacerbation requiring IV steroids and nebulizers Quality Stroke Does the patient have a stroke diagnosis?: No VTE Prior VTE?: No VTE Risk Level:: Medical - moderate - high VTE Device Contraindication: Treatment Not Indicated VTE Drug Contraindication: N/A - Med Ordered
[2023-08-17] MEDS: Loratadine 10 MG TABLET PO (20:01)
[2023-08-17] MEDS: Lidocaine 4 % Patch ADH..PATCH 1 PATCH TRANSDERMA (20:01)
[2023-08-17] MEDS: guaiFEN/Codeine SF 200/20/10ML 10 ML LIQUID 5 ML PO (20:02)
[2023-08-17] MEDS: Albuterol/Iprat 2.5/0.5MG 3 ML AMPUL.NEB INHALE (20:04)
[2023-08-17 21:34] LABS: Glucose, Whole Blood 254 mg/dL (60-115)
[2023-08-17] MEDS: Metoprolol Tartrate 50 MG TABLET PO (21:41)
[2023-08-17] MEDS: Apixaban 5 MG TABLET PO (21:41)
[2023-08-17] MEDS: Melatonin 3 MG TABLET PO (21:41)
[2023-08-17] MEDS: Insulin Lispro 100 UNIT/ML 3 ML VIAL SUBCUT (21:41)
[2023-08-17] MEDS: Atorvastatin Calcium 80 MG TABLET PO (21:41)
[2023-08-17] MEDS: busPIRone HCl 5 MG TABLET PO (21:41)
[2023-08-17] MEDS: 0.9 % Sodium Chloride Flush 3 ML SYRINGE IVFLUSH (21:43)
[2023-08-17] MEDS: Acetaminophen 325 MG TABLET 650 MG PO (21:47)
[2023-08-17] MEDS: Insulin Glargine,Hum.rec.anlog 100 UNIT/ML 10 ML VIAL 38 UNIT SUBCUT (21:49)
[2023-08-18] VITALS (13 sets, daily range): BP systolic 100–147; BP diastolic 52–72; PULSE 78–99; RESP 16–20; TEMP 36.2–37.2; O2SAT 91–99
--- NOTE | 2023-08-18 00:45 | PC.NURSE ---
Verified with MD, pt dont need to be on tele monitor.
[2023-08-18] MEDS: guaiFEN/Codeine SF 200/20/10ML 10 ML LIQUID 5 ML PO ×6 (03:06→23:01)
[2023-08-18] MEDS: Omeprazole 20 MG CAPSULE.DR PO ×2 (05:49→16:39)
[2023-08-18] MEDS: Acetaminophen 325 MG TABLET 650 MG PO ×3 (05:51→20:35)
[2023-08-18 06:46] LABS: MANUAL DIFF FLAG NO
[2023-08-18 06:51] LABS: Hematocrit 30.3 % (37.0-47.0); Hemoglobin 9.6 g/dl (12.0-16.0); Imm Gran Abs Auto 0.07 X10*3/uL (0.00-0.03); Imm Gran Pct Auto 0.8 % (0.0-0.4); Lymphocytes Absolute Auto 0.9 X10*3/uL (1.2-4.9); Lymphocytes Percent Auto 9.7 % (20-40); Mean Corpuscular HGB Conc 31.7 g/dl (31.0-35.0); Mean Corpuscular Hemoglobin 28.3 pg (27.0-33.0); Mean Corpuscular Volume 89.4 fL (80.0-98.0); Mean Platelet Volume 10.2 fL (9.4-12.3); Monocytes Absolute Auto 0.3 X10*3/uL (0.1-1.2); Monocytes Percent Auto 2.9 % (2-11); Neutrophils Absolute Auto 7.7 x10*3/uL (2.0-8.3); Neutrophils Percent Auto 86.6 % (45-73); Platelet Count 235 X10*3/uL (160-400); Red Blood Count 3.39 X10*6/uL (4.20-5.50); Red Cell Distribution Width 15.9 % (11.0-16.0); White Blood Count 8.9 X10*3/uL (4.8-10.8)
[2023-08-18 07:07] LABS: Anion Gap 14 (12-20); Blood Urea Nitrogen 20 mg/dL (9-16); Calcium 8.8 mg/dL (8.4-10.2); Carbon Dioxide 25 mmol/L (22-29); Chloride 105 mmol/L (96-108); Creatinine Clr Calc Pharmacy 49.8; Estimated Glomerular Filt Rate 48; Glucose Random 214 mg/dL (60-115); Sodium 140 mmol/L (135-145)
[2023-08-18 07:53] LABS: Glucose, Whole Blood 185 mg/dL (60-115)
[2023-08-18] MEDS: Albuterol/Iprat 2.5/0.5MG 3 ML AMPUL.NEB INHALE ×4 (07:56→19:38)
[2023-08-18] MEDS: Insulin Lispro 100 UNIT/ML 3 ML VIAL SUBCUT ×4 (08:36→20:42)
[2023-08-18] MEDS: Loratadine 10 MG TABLET PO (08:38)
[2023-08-18] MEDS: Clopidogrel Bisulfate 75 MG TABLET PO (08:38)
[2023-08-18] MEDS: Lidocaine 4 % Patch ADH..PATCH 1 PATCH TRANSDERMA ×2 (08:38→16:37)
[2023-08-18] MEDS: lisinopriL 10 MG TABLET PO (08:38)
[2023-08-18] MEDS: hydroCHLOROthiazide 12.5 MG TABLET PO (08:38)
[2023-08-18] MEDS: Dicyclomine HCl 10 MG CAPSULE PO ×3 (08:38→15:23)
[2023-08-18] MEDS: Cholecalciferol (Vitamin D3) 25 MCG TABLET PO (08:38)
[2023-08-18] MEDS: busPIRone HCl 5 MG TABLET PO ×2 (08:38→20:35)
[2023-08-18] MEDS: Apixaban 5 MG TABLET PO ×2 (08:38→20:35)
[2023-08-18] MEDS: Metoprolol Tartrate 50 MG TABLET PO ×2 (08:38→20:35)
[2023-08-18] MEDS: dilTIAZem HCL CD 300 MG CAP.ER.24H PO (08:38)
[2023-08-18] MEDS: Escitalopram Oxalate 10 MG TABLET PO (08:38)
[2023-08-18] MEDS: Empagliflozin 25 MG TABLET PO (08:38)
[2023-08-18] MEDS: methylPREDNISolone Sod Succ 40 MG/ML VIAL IVPUSH (08:39)
[2023-08-18] MEDS: 0.9 % Sodium Chloride Flush 3 ML SYRINGE IVFLUSH ×3 (08:39→20:36)
--- NOTE | 2023-08-18 10:20 | MHC.CM.PN ---
Addendum entered by Alise Duffy 08/18/23 14:39: P.T. REC HOME WITH SERVICES, PT FIRST CHOICE IS [facility], REFERRAL SENT. Original Note: [facility] DELIVERED PT LIVES WITH FAMILY AND IS INDEPENDENT AT BASELINE. USES CPAP AND VENDOR IS [facility]. +HCP ON FILE. [place] [facility] [place], P.T. TO EVAL FOR DC NEEDS. PT HAS OWN RIDE HOME. CM WILL CONTINUE TO FOLLOW FOR DC PLAN/NEEDS.
[2023-08-18 11:22] LABS: Alanine Aminotransferase 10 U/L (0-31); Albumin Level 3.5 g/dL (3.5-5.0); Alkaline Phosphatase 81 U/L (39-117); Aspartate Amino Transferase 13 U/L (5-31); Bilirubin Direct 0.2 mg/dL (0.0-0.5); Bilirubin Total 0.4 mg/dL (0.0-1.0); Total Protein 6.3 g/dL (6.5-8.0)
[2023-08-18 11:27] LABS: Glucose, Whole Blood 275 mg/dL (60-115)
[2023-08-18] MEDS: oxyCODONE HCl Immed Release 5 MG TABLET 10 MG PO (11:37)
--- NOTE | 2023-08-18 15:11 | HO.PM.IMPN ---
Subjective Subjective Date of Service: 08/18/23 Interval History: acute copd excerebation Review of Systems sob with minimal excersion,pleurtic pain ,aggressive cough-seems similar to yesterday no fevers Physical Exam Vital Signs: Vital Signs: Last Vital Signs Temp 98.1 F 08/18/23 11:25 Pulse 82 08/18/23 11:54 Resp 18 08/18/23 11:27 BP 145/65 H 08/18/23 11:25 Pulse Ox 96 08/18/23 11:25 O2 Del Method Room Air 08/18/23 11:25 BMI result Body Mass Index 36.1 Appearance: Alert.? Oriented X3.? sob,speaking in short sentences . cvs: rrr, [id number] , no murmur res: diminshed ,has exp b/l wheezing abd: no rebound or guarding ,nt, bs present. ext pulses present , no cyanosis . neuro: axo3 , nonfocal. Objective Data Active Medications Acetaminophen (Acetaminophen 325 Mg Tablet) 650 mg PO Q6H PRN PRN Reason: Pain, Mild (Pain Scale 1-3) Last Admin: 08/18/23 13:03 Dose: 650 mg Documented By: MANDY Albuterol Sulfate (Albuterol Sulfate 90 Mcg 8 Gm Inhaler) 2 puff INHALE Q4H PRN PRN Reason: Shortness Of Breath Albuterol/Ipratropium (Albuterol/Iprat 2.5/0.5mg 3 Ml Ampul.Neb) 3 ml INHALE RQ4H WHILE AWAKE [facility] Last Admin: 08/18/23 11:26 Dose: 3 ml Documented By: BURT Apixaban (Apixaban 5 Mg Tablet) 5 mg PO BID [facility] Last Admin: 08/18/23 08:38 Dose: 5 mg Documented By: MANDY Atorvastatin Calcium (Atorvastatin Calcium 80 Mg Tablet) 80 mg PO BEDTIME [facility] Last Admin: 08/17/23 21:41 Dose: 80 mg Documented By: HOLLY Buspirone HCl (Buspirone Hcl 5 Mg Tablet) 5 mg PO BID [facility] Last Admin: 08/18/23 08:38 Dose: 5 mg Documented By: MANDY Clopidogrel Bisulfate (Clopidogrel Bisulfate 75 Mg Tablet) 75 mg PO DAILY [facility] Last Admin: 08/18/23 08:38 Dose: 75 mg Documented By: MANDY Dextrose (Dextrose 50 % 25 Gm/50 Ml Syringe) 25 gm IVPUSH Q15M PRN; Protocol PRN Reason: per Hypoglycemia Standing Ord. Dicyclomine HCl (Dicyclomine Hcl 10 Mg Capsule) 10 mg PO TIDAC [facility] Last Admin: 08/18/23 11:37 Dose: 10 mg Documented By: MANDY Diltiazem HCl (Diltiazem Hcl Cd 300 Mg Cap.Er.24h) 300 mg PO DAILY [facility]; Protocol Last Admin: 08/18/23 08:38 Dose: 300 mg Documented By: MANDY Empagliflozin (Empagliflozin 25 Mg Tablet) 25 mg PO DAILY [facility] Last Admin: 08/18/23 08:38 Dose: 25 mg Documented By: MANDY Escitalopram Oxalate (Escitalopram Oxalate 10 Mg Tablet) 10 mg PO DAILY [facility] Last Admin: 08/18/23 08:38 Dose: 10 mg Documented By: MANDY Furosemide (Furosemide 20 Mg Tablet) 20 mg PO BID@0900,1800 [facility]; Protocol Glucose (Glucose Gel 15 Gm Gel..Gram.) 15 gm PO Q15M PRN; Protocol PRN Reason: per Hypoglycemia Standing Ord. Guaifenesin/Codeine Phosphate (Guaifen/Codeine Sf 200/20/10ml 10 Ml Liquid) 5 ml PO Q4H [facility] Last Admin: 08/18/23 11:37 Dose: 5 ml Documented By: MANDY Hydrochlorothiazide (Hydrochlorothiazide 12.5 Mg Tablet) 12.5 mg PO DAILY [facility] Last Admin: 08/18/23 08:38 Dose: 12.5 mg Documented By: MANDY Azithromycin 500 mg/ Sodium (Chloride) 250 mls @ 125 mls/hr IV Q24H [facility] Insulin Glargine (Insulin Glargine,Hum.Rec.Anlog 100 Unit/Ml 10 Ml Vial) 38 unit SUBCUT BEDTIME [facility] Last Admin: 08/17/23 21:49 Dose: 38 unit Documented By: HOLLY Insulin Human Lispro (Insulin Lispro 100 Unit/Ml 3 Ml Vial) 0 unit SUBCUT QIDACHS [facility]; Protocol Last Admin: 08/18/23 11:38 Dose: 6 unit Documented By: MANDY Lidocaine (Lidocaine 4 % Patch Adh..Patch) 1 patch TRANSDERMA DAILY [facility]; Protocol Last Admin: 08/18/23 08:38 Dose: 1 patch Documented By: MANDY Lisinopril (Lisinopril 10 Mg Tablet) 10 mg PO DAILY [facility] Last Admin: 08/18/23 08:38 Dose: 10 mg Documented By: MANDY Loratadine (Loratadine 10 Mg Tablet) 10 mg PO DAILY [facility] Last Admin: 08/18/23 08:38 Dose: 10 mg Documented By: MANDY Melatonin (Melatonin 3 Mg Tablet) 3 mg PO BEDTIME [facility] Last Admin: 08/17/23 21:41 Dose: 3 mg Documented By: HOLLY Metoprolol Tartrate (Metoprolol Tartrate 50 Mg Tablet) 50 mg PO BID [facility]; Protocol Last Admin: 08/18/23 08:38 Dose: 50 mg Documented By: MANDY Omeprazole (Omeprazole 20 Mg Capsule.Dr) 20 mg PO BID@0630,1630 [facility] Last Admin: 08/18/23 05:49 Dose: 20 mg Documented By: HOLLY Ondansetron HCl (Ondansetron Hcl 4 Mg/2 Ml Vial) 4 mg IVPUSH Q8H PRN PRN Reason: Nausea and Vomiting Prednisone (Prednisone 20 Mg Tablet) 40 mg PO DAILY [facility] Senna (Sennosides 8.6 Mg Tablet) 17.2 mg PO BEDTIME PRN PRN Reason: Constipation Sodium Chloride (0.9 % Sodium Chloride Flush 3 Ml Syringe) 3 ml IVFLUSH QSHIFT [facility] Last Admin: 08/18/23 08:39 Dose: 3 ml Documented By: MANDY Vitamin D (Cholecalciferol (Vitamin D3) 25 Mcg Tablet) 25 mcg PO DAILY [facility] Last Admin: 08/18/23 08:38 Dose: 25 mcg Documented By: MANDY Labs 08/18/23 06:18 08/18/23 06:18 Labs: Laboratory Results - last 24 hr 08/17/23 08/18/23 08/18/23 21:27 06:18 07:49 MCV 89.4 MCH 28.3 MCHC 31.7 RDW 15.9 Plt Count 235 MPV 10.2 Immature Gran % (Auto) 0.8 H Neut % (Auto) 86.6 H Lymph % (Auto) 9.7 L [place] % (Auto) 2.9 Eos % (Auto) 0.0 Baso % (Auto) 0.0 Lymph # (Auto) 0.9 L [place] # (Auto) 0.3 Eos # (Auto) 0.0 Baso # (Auto) 0.0 Abs Immat Gran (auto) 0.07 H Absolute Neuts (auto) 7.7 Absolute Nucleated RBC 0.000 Nucleated RBC % (auto) 0.0 Anion Gap 14 Estim Creat Clear Calc 49.8 Estimated GFR 48 POC Glucose 254 H 185 H Random Glucose 214 H Calcium 8.8 Total Bilirubin 0.4 Direct Bilirubin 0.2 AST 13 ALT 10 Alkaline Phosphatase 81 Total Protein 6.3 L Albumin 3.5 08/18/23 11:19 MCV MCH MCHC RDW Plt Count MPV Immature Gran % (Auto) Neut % (Auto) Lymph % (Auto) [place] % (Auto) Eos % (Auto) Baso % (Auto) Lymph # (Auto) [place] # (Auto) Eos # (Auto) Baso # (Auto) Abs Immat Gran (auto) Absolute Neuts (auto) Absolute Nucleated RBC Nucleated RBC % (auto) Anion Gap Estim Creat Clear Calc Estimated GFR POC Glucose 275 H Random Glucose Calcium Total Bilirubin Direct Bilirubin AST ALT Alkaline Phosphatase Total Protein Albumin Assessment and Plan (1) Acute exacerbation of chronic obstructive pulmonary disease: Status: Acute (2) Pleural effusion: Status: Acute Plan 72-year-old female with paroxysmal atrial fibrillation anticoagulated with Eliquis, CKD stage 3, mood disorder, fibromyalgia, history of pulmonary embolism on lifelong anticoagulation, CAD with recent NSTEMI s/p stent placement on 06/30 on DAPT , hyperlipidemia, hypertension, ALYSIA on CPAP, and insulin-dependent type 2 diabetes admitted for acute COPD exacerbation. acute COPD exacerbation vs chf excerbation possible diastolic : -chest CT negative for pneumonia. Negative for COVID-19, RSV, influenza,viral respiratory panel ordered . moniter i/o, daily weights continue 40 mg IV methylprednisolone b.i.d.,DuoNebs q.4h while awake,azithromycin for pleiotropic effect,Robitussin AC for cough and severe pleuritic chest pain as well as lidocaine patches,added lasix Acute b/l pleural effusion-likely secondary to atelectasis oob , incentive sprio,chest physio. insulin-dependent type 2 diabetes with hyperglycemia -dose adjusted basal insulin -POC glucose, diabetic diet, Humalog on sliding scale HTn -blood pressure reasonably controlled on admission -continue home antihypertensives history pulmonary embolism-continue Eliquis paroxysmal atrial fibrillation-rate controlled-continue Eliquis, metoprolol IBS-continue Bentyl CAD/hyperlipidemia -recent stenting 06/30 -continue Eliquis, Plavix, metoprolol, statin ALYSIA -CPAP at bedtime DVT prophylaxis-Eliquis Full code ongoing need for hospital stay management of COPD exacerbation requiring patient IV steroids and nebulizers, chf -need diuretics and i/o, daily weight monitering Quality Stroke Does the patient have a stroke diagnosis?: No VTE Prior VTE?: No VTE Risk Level:: Medical - moderate - high VTE Device Contraindication: Treatment Not Indicated VTE Drug Contraindication: N/A - Med Ordered
[2023-08-18 15:20] LABS: Glucose, Whole Blood 271 mg/dL (60-115)
[2023-08-18] MEDS: Gabapentin 100 MG CAPSULE PO ×2 (16:36→20:35)
[2023-08-18] MEDS: Azithromycin 500 MG in 0.9 % Sodium Chloride 250 ML 125 MG IV (16:37)
[2023-08-18] MEDS: oxyCODONE HCl Immed Release 5 MG TABLET PO (16:37)
[2023-08-18] MEDS: Furosemide 20 MG TABLET PO (18:23)
[2023-08-18] MEDS: Cyclobenzaprine HCl 5 MG TABLET PO (20:35)
[2023-08-18] MEDS: Atorvastatin Calcium 80 MG TABLET PO (20:35)
[2023-08-18] MEDS: Melatonin 3 MG TABLET PO (20:35)
[2023-08-18] MEDS: Insulin Glargine,Hum.rec.anlog 100 UNIT/ML 10 ML VIAL 38 UNIT SUBCUT (20:44)
[2023-08-18 20:47] LABS: Glucose, Whole Blood 263 mg/dL (60-115)
[2023-08-19] VITALS (10 sets, daily range): BP systolic 115–164; BP diastolic 54–87; PULSE 71–96; RESP 18–19; TEMP 36.2–37.1; O2SAT 92–98
[2023-08-19] MEDS: Omeprazole 20 MG CAPSULE.DR PO ×2 (05:45→16:41)
[2023-08-19 07:49] LABS: Glucose, Whole Blood 157 mg/dL (60-115)
[2023-08-19] MEDS: Albuterol/Iprat 2.5/0.5MG 3 ML AMPUL.NEB INHALE ×4 (07:56→20:18)
[2023-08-19] MEDS: guaiFEN/Codeine SF 200/20/10ML 10 ML LIQUID 5 ML PO (08:42)
[2023-08-19] MEDS: Lidocaine 4 % Patch ADH..PATCH 1 PATCH TRANSDERMA (08:42)
[2023-08-19] MEDS: busPIRone HCl 5 MG TABLET PO ×2 (08:43→21:19)
[2023-08-19] MEDS: Empagliflozin 25 MG TABLET PO (08:43)
[2023-08-19] MEDS: Dicyclomine HCl 10 MG CAPSULE PO ×3 (08:43→16:41)
[2023-08-19] MEDS: Escitalopram Oxalate 10 MG TABLET PO (08:43)
[2023-08-19] MEDS: Apixaban 5 MG TABLET PO ×2 (08:43→21:18)
[2023-08-19] MEDS: Cyclobenzaprine HCl 5 MG TABLET PO ×2 (08:44→21:18)
[2023-08-19] MEDS: Acetaminophen 325 MG TABLET 650 MG PO ×3 (08:44→21:19)
[2023-08-19] MEDS: Cholecalciferol (Vitamin D3) 25 MCG TABLET PO (08:44)
[2023-08-19] MEDS: lisinopriL 10 MG TABLET PO (08:44)
[2023-08-19] MEDS: dilTIAZem HCL CD 300 MG CAP.ER.24H PO (08:44)
[2023-08-19] MEDS: predniSONE 20 MG TABLET 40 MG PO (08:44)
[2023-08-19] MEDS: Metoprolol Tartrate 50 MG TABLET PO ×2 (08:45→21:18)
[2023-08-19] MEDS: hydroCHLOROthiazide 12.5 MG TABLET PO (08:45)
[2023-08-19] MEDS: 0.9 % Sodium Chloride Flush 3 ML SYRINGE IVFLUSH ×3 (08:45→21:17)
[2023-08-19] MEDS: Gabapentin 100 MG CAPSULE PO ×3 (08:45→21:18)
[2023-08-19] MEDS: Clopidogrel Bisulfate 75 MG TABLET PO (08:45)
[2023-08-19] MEDS: Loratadine 10 MG TABLET PO (08:45)
[2023-08-19] MEDS: Furosemide 20 MG TABLET PO ×2 (08:45→17:51)
[2023-08-19] MEDS: Insulin Lispro 100 UNIT/ML 3 ML VIAL SUBCUT ×4 (08:49→21:17)
[2023-08-19 09:43] LABS: VBG HCO3 22 mmol/L (22-26); VBG pCO2 25 mmHg; VBG pH 7.56 (7.32-7.43); VBG pO2 225 mmHg
[2023-08-19 09:44] LABS: Venous Blood Gas Refer to POC result
[2023-08-19] MEDS: methylPREDNISolone Sod Succ 40 MG/ML VIAL IVPUSH ×2 (10:29→21:17)
[2023-08-19 11:18] LABS: Glucose, Whole Blood 172 mg/dL (60-115)
[2023-08-19 12:06] LABS: Adenovirus PCR Not Detected (Not Detect.); Bordetella parapertussis PCR Not Detected (Not Detect.); Bordetella pertussis PCR Not Detected (Not Detect.); Chlamydia pneumoniae PCR Not Detected (Not Detect.); Coronavirus 229E PCR Not Detected (Not Detect.); Coronavirus HKU1 PCR Not Detected (Not Detect.); Coronavirus NL63 PCR Not Detected (Not Detect.); Coronavirus OC43 PCR Not Detected (Not Detect.); Human metapneumovirus PCR Not Detected (Not Detect.); Influenza A PCR Not Detected (Not Detect.); Influenza B PCR Not Detected (Not Detect.); Mycoplasma pneumoniae PCR Not Detected (Not Detect.); Parainfluenza 1 PCR Not Detected (Not Detect.); Parainfluenza 2 PCR Not Detected (Not Detect.); Parainfluenza 3 PCR Not Detected (Not Detect.); Parainfluenza 4 PCR Not Detected (Not Detect.); RSV PCR Not Detected (Not Detect.); Rhino/Enterovirus PCR Not Detected (Not Detect.); SARS-CoV-2 PCR Not Detected (Not Detect.)
[2023-08-19] MEDS: guaiFEN/Codeine SF 200/20/10ML 10 ML LIQUID PO ×3 (12:52→21:18)
[2023-08-19] MEDS: oxyCODONE HCl Immed Release 5 MG TABLET PO (13:53)
--- NOTE | 2023-08-19 14:51 | HO.PM.IMPN ---
Subjective Subjective Date of Service: 08/19/23 Interval History: acute copd excerebation Review of Systems sob with minimal excersion,pleurtic pain ,aggressive cough-seems similar . no fevers Physical Exam Vital Signs: Vital Signs: Last Vital Signs Temp 98 F 08/19/23 07:56 Pulse 71 08/19/23 13:56 Resp 18 08/19/23 11:48 BP 164/72 H 08/19/23 07:56 Pulse Ox 94 08/19/23 07:56 O2 Del Method Room Air 08/19/23 07:56 BMI result Body Mass Index 36.1 Appearance: Alert.? Oriented X3.? sob,speaking in short sentences . cvs: rrr, [id number] , no murmur res: diminshed ,has exp b/l wheezing abd: no rebound or guarding ,nt, bs present. ext pulses present , no cyanosis . neuro: axo3 , nonfocal. Objective Data Active Medications Acetaminophen (Acetaminophen 325 Mg Tablet) 650 mg PO Q6H [facility] Last Admin: 08/19/23 08:44 Dose: 650 mg Documented By: KIRSTEN Albuterol Sulfate (Albuterol Sulfate 90 Mcg 8 Gm Inhaler) 2 puff INHALE Q4H PRN PRN Reason: Shortness Of Breath Albuterol/Ipratropium (Albuterol/Iprat 2.5/0.5mg 3 Ml Ampul.Neb) 3 ml INHALE RQ4H WHILE AWAKE [facility] Last Admin: 08/19/23 11:48 Dose: 3 ml Documented By: THU Apixaban (Apixaban 5 Mg Tablet) 5 mg PO BID [facility] Last Admin: 08/19/23 08:43 Dose: 5 mg Documented By: KIRSTEN Atorvastatin Calcium (Atorvastatin Calcium 80 Mg Tablet) 80 mg PO BEDTIME [facility] Last Admin: 08/18/23 20:35 Dose: 80 mg Documented By: ODRISM Buspirone HCl (Buspirone Hcl 5 Mg Tablet) 5 mg PO BID [facility] Last Admin: 08/19/23 08:43 Dose: 5 mg Documented By: KIRSTEN Clopidogrel Bisulfate (Clopidogrel Bisulfate 75 Mg Tablet) 75 mg PO DAILY [facility] Last Admin: 08/19/23 08:45 Dose: 75 mg Documented By: KIRSTEN Cyclobenzaprine HCl (Cyclobenzaprine Hcl 5 Mg Tablet) 5 mg PO BID [facility] Last Admin: 08/19/23 08:44 Dose: 5 mg Documented By: KIRSTEN Dextrose (Dextrose 50 % 25 Gm/50 Ml Syringe) 25 gm IVPUSH Q15M PRN; Protocol PRN Reason: per Hypoglycemia Standing Ord. Dicyclomine HCl (Dicyclomine Hcl 10 Mg Capsule) 10 mg PO TIDAC [facility] Last Admin: 08/19/23 11:56 Dose: 10 mg Documented By: KIRSTEN Diltiazem HCl (Diltiazem Hcl Cd 300 Mg Cap.Er.24h) 300 mg PO DAILY [facility]; Protocol Last Admin: 08/19/23 08:44 Dose: 300 mg Documented By: KIRSTEN Empagliflozin (Empagliflozin 25 Mg Tablet) 25 mg PO DAILY [facility] Last Admin: 08/19/23 08:43 Dose: 25 mg Documented By: KIRSTEN Escitalopram Oxalate (Escitalopram Oxalate 10 Mg Tablet) 10 mg PO DAILY [facility] Last Admin: 08/19/23 08:43 Dose: 10 mg Documented By: KIRSTEN Furosemide (Furosemide 20 Mg Tablet) 20 mg PO BID@0900,1800 [facility]; Protocol Last Admin: 08/19/23 08:45 Dose: 20 mg Documented By: KIRSTEN Gabapentin (Gabapentin 100 Mg Capsule) 100 mg PO TID [facility] Last Admin: 08/19/23 08:45 Dose: 100 mg Documented By: KIRSTEN Glucose (Glucose Gel 15 Gm Gel..Gram.) 15 gm PO Q15M PRN; Protocol PRN Reason: per Hypoglycemia Standing Ord. Guaifenesin/Codeine Phosphate (Guaifen/Codeine Sf 200/20/10ml 10 Ml Liquid) 10 ml PO Q4H [facility] Last Admin: 08/19/23 12:52 Dose: 10 ml Documented By: KIRSTEN Hydrochlorothiazide (Hydrochlorothiazide 12.5 Mg Tablet) 12.5 mg PO DAILY [facility] Last Admin: 08/19/23 08:45 Dose: 12.5 mg Documented By: KIRSTEN Azithromycin 500 mg/ Sodium (Chloride) 250 mls @ 125 mls/hr IV Q24H [facility] Last Infusion: 08/18/23 18:42 Dose: Infused Documented By: ISAMAR Insulin Glargine (Insulin Glargine,Hum.Rec.Anlog 100 Unit/Ml 10 Ml Vial) 38 unit SUBCUT BEDTIME [facility] Last Admin: 08/18/23 20:44 Dose: 38 unit Documented By: MEG Insulin Human Lispro (Insulin Lispro 100 Unit/Ml 3 Ml Vial) 0 unit SUBCUT QIDACHS [facility]; Protocol Last Admin: 08/19/23 11:56 Dose: 2 unit Documented By: KIRSTEN Lidocaine (Lidocaine 4 % Patch Adh..Patch) 1 patch TRANSDERMA DAILY [facility]; Protocol Last Admin: 08/19/23 08:42 Dose: 1 patch Documented By: KIRSTEN Lidocaine (Lidocaine 4 % Patch Adh..Patch) 1 patch TRANSDERMA DAILY [facility]; Protocol Last Admin: 08/19/23 09:00 Dose: Not Given Documented By: KIRSTEN Non-Admin Reason: Patient Refused Lisinopril (Lisinopril 10 Mg Tablet) 10 mg PO DAILY [facility] Last Admin: 08/19/23 08:44 Dose: 10 mg Documented By: KIRSTEN Loratadine (Loratadine 10 Mg Tablet) 10 mg PO DAILY [facility] Last Admin: 08/19/23 08:45 Dose: 10 mg Documented By: KIRSTEN Melatonin (Melatonin 3 Mg Tablet) 3 mg PO BEDTIME [facility] Last Admin: 08/18/23 20:35 Dose: 3 mg Documented By: MEG Methylprednisolone Sodium Succinate (Methylprednisolone Sod Succ 40 Mg/Ml Vial) 40 mg IVPUSH Q12H [facility] Last Admin: 08/19/23 10:29 Dose: 40 mg Documented By: KIRSTEN Metoprolol Tartrate (Metoprolol Tartrate 50 Mg Tablet) 50 mg PO BID [facility]; Protocol Last Admin: 08/19/23 08:45 Dose: 50 mg Documented By: KIRSTEN Omeprazole (Omeprazole 20 Mg Capsule.Dr) 20 mg PO BID@0630,1630 [facility] Last Admin: 08/19/23 05:45 Dose: 20 mg Documented By: MEG Ondansetron HCl (Ondansetron Hcl 4 Mg/2 Ml Vial) 4 mg IVPUSH Q8H PRN PRN Reason: Nausea and Vomiting Oxycodone HCl (Oxycodone Hcl Immed Release 5 Mg Tablet) 5 mg PO Q6H PRN PRN Reason: Pain, Mild (Pain Scale 1-3) Last Admin: 08/19/23 13:53 Dose: 5 mg Documented By: KIRSTEN Senna (Sennosides 8.6 Mg Tablet) 17.2 mg PO BEDTIME PRN PRN Reason: Constipation Sodium Chloride (0.9 % Sodium Chloride Flush 3 Ml Syringe) 3 ml IVFLUSH QSHIFT [facility] Last Admin: 08/19/23 08:45 Dose: 3 ml Documented By: KIRSTEN Vitamin D (Cholecalciferol (Vitamin D3) 25 Mcg Tablet) 25 mcg PO DAILY [facility] Last Admin: 08/19/23 08:44 Dose: 25 mcg Documented By: KIRSTEN Labs 08/18/23 06:18 08/18/23 06:18 Labs: Laboratory Results - last 24 hr 08/18/23 08/18/23 08/18/23 15:12 15:15 20:02 VBG pH VBG pCO2 VBG pO2 VBG HCO3 VBG O2 Saturation VBG Base Excess POC Glucose 271 H 263 H Respiratory Panel [place] See Note Adenovirus (Rapid PCR) Not Detected B.pert (TEM-PCR) Not Detected B.parapertussis DNA PCR Not Detected C. pneumoniae DNA (PCR) Not Detected Coronavirus OC43 (PCR) Not Detected Coronavirus HKU1 (PCR) Not Detected Coronavirus 229E (PCR) Not Detected Coronavirus NL63 (PCR) Not Detected Human Metapneumovir PCR Not Detected Influenza A (RT-PCR) Not Detected Influenza B (RT-PCR) Not Detected M. pneumoniae (PCR) Not Detected Parainfluenza 1 (PCR) Not Detected Parainfluenza 2 (PCR) Not Detected Parainfluenza 3 (PCR) Not Detected Parainfluenza 4 (PCR) Not Detected RSV (PCR) Not Detected Entero/Rhino (PCR) Not Detected SARS-CoV-2 RNA (RT-PCR) Not Detected 08/19/23 08/19/23 08/19/23 07:34 09:37 11:09 VBG pH 7.56 H VBG pCO2 25 VBG pO2 225 VBG HCO3 22 VBG O2 Saturation 100.0 VBG Base Excess 2.0 POC Glucose 157 H 172 H Respiratory Panel [place] Adenovirus (Rapid PCR) B.pert (TEM-PCR) B.parapertussis DNA PCR C. pneumoniae DNA (PCR) Coronavirus OC43 (PCR) Coronavirus HKU1 (PCR) Coronavirus 229E (PCR) Coronavirus NL63 (PCR) Human Metapneumovir PCR Influenza A (RT-PCR) Influenza B (RT-PCR) M. pneumoniae (PCR) Parainfluenza 1 (PCR) Parainfluenza 2 (PCR) Parainfluenza 3 (PCR) Parainfluenza 4 (PCR) RSV (PCR) Entero/Rhino (PCR) SARS-CoV-2 RNA (RT-PCR) Microbiology Microbiology Results: Microbiology 08/17/23 17:04 Blood Culture - Preliminary Blood - Venous No growth after 24 hours. 08/17/23 17:04 Blood Culture - Preliminary Blood - Venous No growth after 24 hours. Assessment and Plan (1) Acute exacerbation of chronic obstructive pulmonary disease: Status: Acute (2) Pleural effusion: Status: Acute Plan 72-year-old female with paroxysmal atrial fibrillation anticoagulated with Eliquis, CKD stage 3, mood disorder, fibromyalgia, history of pulmonary embolism on lifelong anticoagulation, CAD with recent NSTEMI s/p stent placement on 06/30 on DAPT , hyperlipidemia, hypertension, ALYSIA on CPAP, and insulin-dependent type 2 diabetes admitted for acute COPD exacerbation. acute COPD exacerbation vs chf excerbation possible diastolic : -chest CT negative for pneumonia. Negative for COVID-19, RSV, influenza,viral respiratory panel ordered . moniter i/o, daily weights continue 40 mg IV methylprednisolone b.i.d.,DuoNebs q.4h while awake,azithromycin for pleiotropic effect,Robitussin AC for cough and severe pleuritic chest pain as well as lidocaine patches,added lasix atelectasis with pleural effusion(Small bilateral pleural effusions with associated mild bibasilar atelectasis.): oob , incentive sprio,chest physio. insulin-dependent type 2 diabetes with hyperglycemia -dose adjusted basal insulin -POC glucose, diabetic diet, Humalog on sliding scale HTn -blood pressure reasonably controlled on admission -continue home antihypertensives history pulmonary embolism-continue Eliquis paroxysmal atrial fibrillation-rate controlled-continue Eliquis, metoprolol IBS-continue Bentyl CAD/hyperlipidemia -recent stenting 06/30 -continue Eliquis, Plavix, metoprolol, statin ALYSIA -CPAP at bedtime DVT prophylaxis-Eliquis Full code ongoing need for hospital stay management of COPD exacerbation requiring patient IV steroids and nebulizers, chf -need diuretics and i/o, daily weight monitering Quality Stroke Does the patient have a stroke diagnosis?: No VTE Prior VTE?: No VTE Risk Level:: Medical - moderate - high VTE Device Contraindication: Treatment Not Indicated VTE Drug Contraindication: N/A - Med Ordered
[2023-08-19 16:25] LABS: Glucose, Whole Blood 299 mg/dL (60-115)
[2023-08-19] MEDS: Azithromycin 500 MG in 0.9 % Sodium Chloride 250 ML 125 MG IV (16:41)
[2023-08-19 20:23] LABS: Glucose, Whole Blood 356 mg/dL (60-115)
--- NOTE | 2023-08-19 20:47 | MHC.PIE ---
p; poc 356. i; dr ross notified e; 10u humalog per ss and lantus 38u given. will cont to monitor
[2023-08-19] MEDS: Insulin Glargine,Hum.rec.anlog 100 UNIT/ML 10 ML VIAL 38 UNIT SUBCUT (21:17)
[2023-08-19] MEDS: Atorvastatin Calcium 80 MG TABLET PO (21:18)
[2023-08-19] MEDS: Melatonin 3 MG TABLET PO (21:19)
[2023-08-19 23:13] LABS: Glucose, Whole Blood 246 mg/dL (60-115)
[2023-08-20] VITALS (10 sets, daily range): BP systolic 101–168; BP diastolic 50–70; PULSE 75–96; RESP 18; TEMP 36.4–37.1; O2SAT 88–97; BMI 36.0
[2023-08-20] MEDS: oxyCODONE HCl Immed Release 5 MG TABLET PO (02:27)
[2023-08-20] MEDS: Acetaminophen 325 MG TABLET 650 MG PO ×4 (02:27→20:32)
[2023-08-20] MEDS: Omeprazole 20 MG CAPSULE.DR PO ×2 (05:36→17:18)
[2023-08-20] MEDS: guaiFEN/Codeine SF 200/20/10ML 10 ML LIQUID PO ×5 (05:37→20:33)
[2023-08-20 07:26] LABS: Glucose, Whole Blood 142 mg/dL (60-115)
[2023-08-20] MEDS: Apixaban 5 MG TABLET PO ×2 (07:55→20:32)
[2023-08-20] MEDS: lisinopriL 10 MG TABLET PO (07:55)
[2023-08-20] MEDS: Cyclobenzaprine HCl 5 MG TABLET PO ×2 (07:55→20:34)
[2023-08-20] MEDS: Loratadine 10 MG TABLET PO (07:55)
[2023-08-20] MEDS: hydroCHLOROthiazide 12.5 MG TABLET PO (07:56)
[2023-08-20] MEDS: Clopidogrel Bisulfate 75 MG TABLET PO (07:56)
[2023-08-20] MEDS: Gabapentin 100 MG CAPSULE PO ×3 (07:56→20:33)
[2023-08-20] MEDS: dilTIAZem HCL CD 300 MG CAP.ER.24H PO (07:56)
[2023-08-20] MEDS: Cholecalciferol (Vitamin D3) 25 MCG TABLET PO (07:56)
[2023-08-20] MEDS: Dicyclomine HCl 10 MG CAPSULE PO ×3 (07:56→17:18)
[2023-08-20] MEDS: Empagliflozin 25 MG TABLET PO (07:56)
[2023-08-20] MEDS: Furosemide 20 MG TABLET PO ×2 (07:56→17:18)
[2023-08-20] MEDS: Metoprolol Tartrate 50 MG TABLET PO ×2 (07:56→20:33)
[2023-08-20] MEDS: Escitalopram Oxalate 10 MG TABLET PO (07:57)
[2023-08-20] MEDS: busPIRone HCl 5 MG TABLET PO ×2 (07:57→20:32)
[2023-08-20] MEDS: Lidocaine 4 % Patch ADH..PATCH 1 PATCH TRANSDERMA ×2 (07:59)
[2023-08-20] MEDS: 0.9 % Sodium Chloride Flush 3 ML SYRINGE IVFLUSH ×3 (08:03→20:33)
[2023-08-20] MEDS: Albuterol/Iprat 2.5/0.5MG 3 ML AMPUL.NEB INHALE ×4 (08:31→20:01)
[2023-08-20] MEDS: methylPREDNISolone Sod Succ 40 MG/ML VIAL IVPUSH (09:18)
--- NOTE | 2023-08-20 11:02 | MHC.CM.PN ---
EMR REVIEWED AND PER MD ROUNDS. PT IS NOT MEDICALLY CLEARED FOR DC (SOB, AGGRESSIVE COUGH) [facility] UPDATED. CM WILL CONTINUE TO FOLLOW FOR ANY CHANGE IN DC NEEDS/PLAN
[2023-08-20 11:46] LABS: Glucose, Whole Blood 147 mg/dL (60-115)
[2023-08-20] MEDS: Docusate Sodium 100 MG CAPSULE PO (11:57)
--- NOTE | 2023-08-20 12:59 | HO.PM.IMPN ---
Subjective Subjective Date of Service: 08/20/23 Interval History: acute copd excerebation Review of Systems sob with minimal excersion,pleurtic pain ,aggressive cough-seems similar . no fevers Physical Exam Vital Signs: Vital Signs: Last Vital Signs Temp 98.0 F 08/20/23 07:45 Pulse 76 08/20/23 11:42 Resp 18 08/20/23 11:42 BP 168/70 H 08/20/23 07:45 Pulse Ox 94 08/20/23 07:45 O2 Del Method Room Air 08/20/23 07:45 BMI result Body Mass Index 36.0 Appearance: Alert.? Oriented X3.? sob,speaking in short sentences . cvs: rrr, [id number] , no murmur res: diminshed ,has exp b/l wheezing abd: no rebound or guarding ,nt, bs present. ext pulses present , no cyanosis . neuro: axo3 , nonfocal. Objective Data Active Medications Acetaminophen (Acetaminophen 325 Mg Tablet) 650 mg PO Q6H [facility] Last Admin: 08/20/23 09:18 Dose: 650 mg Documented By: KARIE Albuterol Sulfate (Albuterol Sulfate 90 Mcg 8 Gm Inhaler) 2 puff INHALE Q4H PRN PRN Reason: Shortness Of Breath Albuterol/Ipratropium (Albuterol/Iprat 2.5/0.5mg 3 Ml Ampul.Neb) 3 ml INHALE RQ4H WHILE AWAKE [facility] Last Admin: 08/20/23 11:40 Dose: 3 ml Documented By: MICAELA Apixaban (Apixaban 5 Mg Tablet) 5 mg PO BID [facility] Last Admin: 08/20/23 07:55 Dose: 5 mg Documented By: ANN Atorvastatin Calcium (Atorvastatin Calcium 80 Mg Tablet) 80 mg PO BEDTIME [facility] Last Admin: 08/19/23 21:18 Dose: 80 mg Documented By: BLANCA Buspirone HCl (Buspirone Hcl 5 Mg Tablet) 5 mg PO BID [facility] Last Admin: 08/20/23 07:57 Dose: 5 mg Documented By: ANN Clopidogrel Bisulfate (Clopidogrel Bisulfate 75 Mg Tablet) 75 mg PO DAILY [facility] Last Admin: 08/20/23 07:56 Dose: 75 mg Documented By: ANN Cyclobenzaprine HCl (Cyclobenzaprine Hcl 5 Mg Tablet) 5 mg PO BID [facility] Last Admin: 08/20/23 07:55 Dose: 5 mg Documented By: ANN Dextrose (Dextrose 50 % 25 Gm/50 Ml Syringe) 25 gm IVPUSH Q15M PRN; Protocol PRN Reason: per Hypoglycemia Standing Ord. Dicyclomine HCl (Dicyclomine Hcl 10 Mg Capsule) 10 mg PO TIDAC [facility] Last Admin: 08/20/23 11:56 Dose: 10 mg Documented By: ANN Diltiazem HCl (Diltiazem Hcl Cd 300 Mg Cap.Er.24h) 300 mg PO DAILY [facility]; Protocol Last Admin: 08/20/23 07:56 Dose: 300 mg Documented By: ANN Docusate Sodium (Docusate Sodium 100 Mg Capsule) 100 mg PO BID PRN PRN Reason: Constipation Last Admin: 08/20/23 11:57 Dose: 100 mg Documented By: ANN Empagliflozin (Empagliflozin 25 Mg Tablet) 25 mg PO DAILY [facility] Last Admin: 08/20/23 07:56 Dose: 25 mg Documented By: ANN Escitalopram Oxalate (Escitalopram Oxalate 10 Mg Tablet) 10 mg PO DAILY [facility] Last Admin: 08/20/23 07:57 Dose: 10 mg Documented By: ANN Furosemide (Furosemide 20 Mg Tablet) 20 mg PO BID@0900,1800 [facility]; Protocol Last Admin: 08/20/23 07:56 Dose: 20 mg Documented By: ANN Gabapentin (Gabapentin 100 Mg Capsule) 100 mg PO TID [facility] Last Admin: 08/20/23 07:56 Dose: 100 mg Documented By: ANN Glucose (Glucose Gel 15 Gm Gel..Gram.) 15 gm PO Q15M PRN; Protocol PRN Reason: per Hypoglycemia Standing Ord. Guaifenesin/Codeine Phosphate (Guaifen/Codeine Sf 200/20/10ml 10 Ml Liquid) 10 ml PO Q4H [facility] Last Admin: 08/20/23 07:55 Dose: 10 ml Documented By: ANN Hydrochlorothiazide (Hydrochlorothiazide 12.5 Mg Tablet) 12.5 mg PO DAILY [facility] Last Admin: 08/20/23 07:56 Dose: 12.5 mg Documented By: ANN Azithromycin 500 mg/ Sodium (Chloride) 250 mls @ 125 mls/hr IV Q24H [facility] Last Infusion: 08/19/23 18:46 Dose: Infused Documented By: KIRSTEN Insulin Glargine (Insulin Glargine,Hum.Rec.Anlog 100 Unit/Ml 10 Ml Vial) 38 unit SUBCUT BEDTIME [facility] Last Admin: 08/19/23 21:17 Dose: 38 unit Documented By: BLANCA Insulin Human Lispro (Insulin Lispro 100 Unit/Ml 3 Ml Vial) 0 unit SUBCUT QIDACHS [facility]; Protocol Last Admin: 08/20/23 11:56 Dose: Not Given Documented By: ANN Non-Admin Reason: No Insulin Coverage Lidocaine (Lidocaine 4 % Patch Adh..Patch) 1 patch TRANSDERMA DAILY [facility]; Protocol Last Admin: 08/20/23 07:59 Dose: 1 patch Documented By: ANN Lidocaine (Lidocaine 4 % Patch Adh..Patch) 1 patch TRANSDERMA DAILY [facility]; Protocol Last Admin: 08/20/23 07:59 Dose: 1 patch Documented By: ANN Lisinopril (Lisinopril 10 Mg Tablet) 10 mg PO DAILY [facility] Last Admin: 08/20/23 07:55 Dose: 10 mg Documented By: ANN Loratadine (Loratadine 10 Mg Tablet) 10 mg PO DAILY [facility] Last Admin: 08/20/23 07:55 Dose: 10 mg Documented By: ANN Melatonin (Melatonin 3 Mg Tablet) 3 mg PO BEDTIME [facility] Last Admin: 08/19/23 21:19 Dose: 3 mg Documented By: BLANCA Methylprednisolone Sodium Succinate (Methylprednisolone Sod Succ 40 Mg/Ml Vial) 40 mg IVPUSH Q12H [facility] Last Admin: 08/20/23 09:18 Dose: 40 mg Documented By: KARIE Metoprolol Tartrate (Metoprolol Tartrate 50 Mg Tablet) 50 mg PO BID [facility]; Protocol Last Admin: 08/20/23 07:56 Dose: 50 mg Documented By: ANN Omeprazole (Omeprazole 20 Mg Capsule.) 20 mg PO BID@0630,1630 [facility] Last Admin: 08/20/23 05:36 Dose: 20 mg Documented By: BLANCA Ondansetron HCl (Ondansetron Hcl 4 Mg/2 Ml Vial) 4 mg IVPUSH Q8H PRN PRN Reason: Nausea and Vomiting Oxycodone HCl (Oxycodone Hcl Immed Release 5 Mg Tablet) 5 mg PO Q6H PRN PRN Reason: Pain, Mild (Pain Scale 1-3) Last Admin: 08/20/23 02:27 Dose: 5 mg Documented By: BLANCA Senna (Sennosides 8.6 Mg Tablet) 17.2 mg PO BEDTIME PRN PRN Reason: Constipation Sodium Chloride (0.9 % Sodium Chloride Flush 3 Ml Syringe) 3 ml IVFLUSH QSHIFT [facility] Last Admin: 08/20/23 08:03 Dose: 3 ml Documented By: ANN Vitamin D (Cholecalciferol (Vitamin D3) 25 Mcg Tablet) 25 mcg PO DAILY [facility] Last Admin: 08/20/23 07:56 Dose: 25 mcg Documented By: ANN Labs 08/18/23 06:18 08/18/23 06:18 Labs: Laboratory Results - last 24 hr 08/19/23 08/19/23 08/19/23 16:13 20:06 23:10 POC Glucose 299 H 356 H* 246 H 08/20/23 08/20/23 07:12 11:31 POC Glucose 142 H 147 H Microbiology Microbiology Results: Microbiology 08/17/23 17:04 Blood Culture - Preliminary Blood - Venous No growth after 48 hours. 08/17/23 17:04 Blood Culture - Preliminary Blood - Venous No growth after 48 hours. Assessment and Plan (1) Pneumonia: Status: Acute (2) Pleural effusion: Status: Acute (3) Acute exacerbation of chronic obstructive pulmonary disease: Status: Acute Plan 72-year-old female with paroxysmal atrial fibrillation anticoagulated with Eliquis, CKD stage 3, mood disorder, fibromyalgia, history of pulmonary embolism on lifelong anticoagulation, CAD with recent NSTEMI s/p stent placement on 06/30 on DAPT , hyperlipidemia, hypertension, ALYSIA on CPAP, and insulin-dependent type 2 diabetes admitted for acute COPD exacerbation. acute COPD exacerbation vs chf excerbation possible diastolic : -chest CT negative for pneumonia. Negative for COVID-19, RSV, influenza,viral respiratory panel ordered . moniter i/o, daily weights continue 40 mg IV methylprednisolone b.i.d.,DuoNebs q.4h while awake,azithromycin for pleiotropic effect,Robitussin AC for cough and severe pleuritic chest pain as well as lidocaine patches,added lasix atelectasis with pleural effusion(Small bilateral pleural effusions with associated mild bibasilar atelectasis.): oob , incentive sprio,chest physio. insulin-dependent type 2 diabetes with hyperglycemia -dose adjusted basal insulin -POC glucose, diabetic diet, Humalog on sliding scale HTn -blood pressure reasonably controlled on admission -continue home antihypertensives history pulmonary embolism-continue Eliquis paroxysmal atrial fibrillation-rate controlled-continue Eliquis, metoprolol IBS-continue Bentyl CAD/hyperlipidemia -recent stenting 06/30 -continue Eliquis, Plavix, metoprolol, statin ALYSIA -CPAP at bedtime DVT prophylaxis-Eliquis Full code ongoing need for hospital stay management of COPD exacerbation requiring patient IV steroids and nebulizers, chf -need diuretics and i/o, daily weight monitering Quality Stroke Does the patient have a stroke diagnosis?: No VTE Prior VTE?: No VTE Risk Level:: Medical - moderate - high VTE Device Contraindication: Treatment Not Indicated VTE Drug Contraindication: N/A - Med Ordered
[2023-08-20 16:40] LABS: Glucose, Whole Blood 241 mg/dL (60-115)
--- NOTE | 2023-08-20 17:00 | PM.CNPUL ---
History of Present Illness History of Present Illness Consult date: 08/20/23 Chief complaint: COPD exacerbation Narrative: 72-year-old lady with underlying history of ALYSIA and COPD, followed by Dr. Bernard, also with significant diastolic dysfunction, admitted on 08/17/2023 with COPD exacerbation and treated with empiric antibiotics, systemic glucocorticoids and nebulized bronchodilators. Patient states that her productive cough has significantly improved, however she still has dyspnea on exertion and orthopnea. patient does complain of right-sided pain that radiates her spine while on the rib line anteriorly Review of Systems Constitutional: Constitutional: Denies daytime sleepiness, Denies excessive sweating, Denies fatigue, Denies fever(s), Denies lethargy, Denies malaise, Denies night sweats, Denies snoring and Denies weight loss Eyes: Eyes: Denies blurry vision and Denies itchy eyes ENT: Denies nasal congestion, Denies post nasal drip, Denies sinus pain, Denies sinus pressure and Denies other ( Thrush) Cardiovascular: Cardiovascular: Denies chest pain, Denies pedal edema, Denies dyspnea, Reports dyspnea on exertion, Reports orthopnea and Denies paroxysmal nocturnal dyspnea Comments: right-sided pain Respiratory: Respiratory: Denies cough, Denies hemoptysis, Denies excessive phlegm production, Denies dyspnea, Reports dyspnea on exertion, Denies snoring and Denies wheezing Gastrointestinal: Gastrointestinal: Denies abdominal pain and Denies heartburn Musculoskeletal: Musculoskeletal: Denies myalgias, Denies arthralgias and Denies joint swelling Integumentary/Breasts: Skin/Breast: Denies rash Neurologic: Denies memory loss and Denies seizure-like activity Psychiatric: Psychiatric: Denies abnormal sleep pattern, Denies anxiety and Denies memory loss Endocrine: Endocrine: Denies excessive sweating, Denies fatigue and Denies heat intolerance Hematologic/Lymphatic: Hematologic/Lymphatic: Denies easy bruising Allergic/Immunologic: Allergic/Immunologic: Denies itchy eyes, Denies seasonal rhinorrhea and Denies wheezing PMFSH Past Medical History Medical History Paroxysmal atrial fibrillation Pulmonary embolism Obesity Dyslipidemia Hypertension CAD (coronary artery disease) halfway (current) use of insulin Diabetes type 2, uncontrolled Respiratory failure Obstructive sleep apnea COPD (chronic obstructive pulmonary disease) Family History Family History Mother No problems noted. Father No problems noted. Brother Substance use disorder Brother Substance use disorder Surgical History Surgical History History of carpal tunnel surgery History of cholecystectomy History of lobectomy of lung Status post tracheoplasty History of cardiac cath Social History Social History Household Members: Family Household Members Other:: Lives with daughter and grandson Housing: House Do you presently have visiting nurse or other home services: No Alcohol intake: never Patient Tobacco Use Status: Former Tobacco user Quit Date: 1993 Smoked: 5 years Smoked in Last 30 Days: No e-Cigarette/Vaping Use: Never Used Use of substances other than those prescribed or required for medical reasons: No Currently Displaying Signs/Symptoms of Drug Intoxication Withdrawal: No Have you been hit, kicked, punched, or otherwise hurt by someone within the past year? If so, by whom?: No Do you feel safe in your current relationship?: Yes Is there a partner from a previous relationship who is making you feel unsafe now?: No Are you made to feel afraid or neglected: No Advance Directives: Yes Advance Directives on File: Yes Advance Directives Date on File: 06/29/23 Do you have thoughts of harming others: None Do you have a plan to hurt others: No Plan Recently lost weight without trying: No How much weight loss: Not applicable Eating poorly because of decreased appetite: No Nutrition screen score: 0 Nutrition Risks: No Nutritional Risk Patient : No : No Poor oral hygiene: No service: No Current occupational status: retired Cognitive needs: No Hearing needs: No Vision needs: No Meds Allergies Allergy/AdvReac Type Severity Reaction Status Date / Time Latex, Natural Rubber Allergy Severe blisters Verified 06/25/23 11:54 Sulfa (Sulfonamide Allergy Mild ITCHING, Verified 06/25/23 11:54 Antibiotics) rash [SULFA (SULFONAMIDE ANTIBIOTICS)] nystatin Allergy Unknown rash Verified 06/25/23 11:54 isosorbide [From Imdur] AdvReac Unknown HEADACHES, Verified 06/25/23 11:54 headache tizanidine AdvReac Unknown weakness, Verified 06/25/23 11:54 Hellucination Active Medications: Current Medications Acetaminophen (Acetaminophen 325 Mg Tablet) 650 mg PO Q6H [facility] Last Admin: 08/20/23 15:19 Dose: 650 mg Albuterol Sulfate (Albuterol Sulfate 90 Mcg 8 Gm Inhaler) 2 puff INHALE Q4H PRN PRN Reason: Shortness Of Breath Albuterol/Ipratropium (Albuterol/Iprat 2.5/0.5mg 3 Ml Ampul.Neb) 3 ml INHALE RQ4H WHILE AWAKE [facility] Last Admin: 08/20/23 15:06 Dose: 3 ml Apixaban (Apixaban 5 Mg Tablet) 5 mg PO BID [facility] Last Admin: 08/20/23 07:55 Dose: 5 mg Atorvastatin Calcium (Atorvastatin Calcium 80 Mg Tablet) 80 mg PO BEDTIME [facility] Last Admin: 08/19/23 21:18 Dose: 80 mg Buspirone HCl (Buspirone Hcl 5 Mg Tablet) 5 mg PO BID [facility] Last Admin: 08/20/23 07:57 Dose: 5 mg Clopidogrel Bisulfate (Clopidogrel Bisulfate 75 Mg Tablet) 75 mg PO DAILY [facility] Last Admin: 08/20/23 07:56 Dose: 75 mg Cyclobenzaprine HCl (Cyclobenzaprine Hcl 5 Mg Tablet) 5 mg PO BID [facility] Last Admin: 08/20/23 07:55 Dose: 5 mg Dextrose (Dextrose 50 % 25 Gm/50 Ml Syringe) 25 gm IVPUSH Q15M PRN; Protocol PRN Reason: per Hypoglycemia Standing Ord. Dicyclomine HCl (Dicyclomine Hcl 10 Mg Capsule) 10 mg PO TIDAC [facility] Last Admin: 08/20/23 11:56 Dose: 10 mg Diltiazem HCl (Diltiazem Hcl Cd 300 Mg Cap.Er.24h) 300 mg PO DAILY [facility]; Protocol Last Admin: 08/20/23 07:56 Dose: 300 mg Docusate Sodium (Docusate Sodium 100 Mg Capsule) 100 mg PO BID PRN PRN Reason: Constipation Last Admin: 08/20/23 11:57 Dose: 100 mg Empagliflozin (Empagliflozin 25 Mg Tablet) 25 mg PO DAILY [facility] Last Admin: 08/20/23 07:56 Dose: 25 mg Escitalopram Oxalate (Escitalopram Oxalate 10 Mg Tablet) 10 mg PO DAILY [facility] Last Admin: 08/20/23 07:57 Dose: 10 mg Furosemide (Furosemide 20 Mg Tablet) 20 mg PO BID@0900,1800 [facility]; Protocol Last Admin: 08/20/23 07:56 Dose: 20 mg Gabapentin (Gabapentin 100 Mg Capsule) 100 mg PO TID [facility] Last Admin: 08/20/23 15:18 Dose: 100 mg Glucose (Glucose Gel 15 Gm Gel..Gram.) 15 gm PO Q15M PRN; Protocol PRN Reason: per Hypoglycemia Standing Ord. Guaifenesin/Codeine Phosphate (Guaifen/Codeine Sf 200/20/10ml 10 Ml Liquid) 10 ml PO Q4H [facility] Last Admin: 08/20/23 13:43 Dose: 10 ml Hydrochlorothiazide (Hydrochlorothiazide 12.5 Mg Tablet) 12.5 mg PO DAILY [facility] Last Admin: 08/20/23 07:56 Dose: 12.5 mg Azithromycin 500 mg/ Sodium (Chloride) 250 mls @ 125 mls/hr IV Q24H [facility] Last Infusion: 08/19/23 18:46 Dose: Infused Insulin Glargine (Insulin Glargine,Hum.Rec.Anlog 100 Unit/Ml 10 Ml Vial) 38 unit SUBCUT BEDTIME [facility] Last Admin: 08/19/23 21:17 Dose: 38 unit Insulin Human Lispro (Insulin Lispro 100 Unit/Ml 3 Ml Vial) 0 unit SUBCUT QIDACHS [facility]; Protocol Last Admin: 08/20/23 11:56 Dose: Not Given Lidocaine (Lidocaine 4 % Patch Adh..Patch) 1 patch TRANSDERMA DAILY [facility]; Protocol Last Admin: 08/20/23 07:59 Dose: 1 patch Lidocaine (Lidocaine 4 % Patch Adh..Patch) 1 patch TRANSDERMA DAILY [facility]; Protocol Last Admin: 08/20/23 07:59 Dose: 1 patch Lisinopril (Lisinopril 10 Mg Tablet) 10 mg PO DAILY [facility] Last Admin: 08/20/23 07:55 Dose: 10 mg Loratadine (Loratadine 10 Mg Tablet) 10 mg PO DAILY [facility] Last Admin: 08/20/23 07:55 Dose: 10 mg Melatonin (Melatonin 3 Mg Tablet) 3 mg PO BEDTIME [facility] Last Admin: 08/19/23 21:19 Dose: 3 mg Methylprednisolone Sodium Succinate (Methylprednisolone Sod Succ 40 Mg/Ml Vial) 40 mg IVPUSH Q12H [facility] Last Admin: 08/20/23 09:18 Dose: 40 mg Metoprolol Tartrate (Metoprolol Tartrate 50 Mg Tablet) 50 mg PO BID [facility]; Protocol Last Admin: 08/20/23 07:56 Dose: 50 mg Omeprazole (Omeprazole 20 Mg Capsule.Dr) 20 mg PO BID@0630,1630 [facility] Last Admin: 08/20/23 05:36 Dose: 20 mg Ondansetron HCl (Ondansetron Hcl 4 Mg/2 Ml Vial) 4 mg IVPUSH Q8H PRN PRN Reason: Nausea and Vomiting Oxycodone HCl (Oxycodone Hcl Immed Release 5 Mg Tablet) 5 mg PO Q6H PRN PRN Reason: Pain, Mild (Pain Scale 1-3) Last Admin: 08/20/23 02:27 Dose: 5 mg Senna (Sennosides 8.6 Mg Tablet) 17.2 mg PO BEDTIME PRN PRN Reason: Constipation Sodium Chloride (0.9 % Sodium Chloride Flush 3 Ml Syringe) 3 ml IVFLUSH QSHIFT [facility] Last Admin: 08/20/23 15:19 Dose: 3 ml Vitamin D (Cholecalciferol (Vitamin D3) 25 Mcg Tablet) 25 mcg PO DAILY [facility] Last Admin: 08/20/23 07:56 Dose: 25 mcg Home Medications Medication Instructions Recorded Confirmed Last Taken Type apixaban 5 mg tablet (Eliquis) 5 mg PO BID 09/30/21 08/17/23 08/11/23 History dulaglutide 1.5 mg/0.5 mL 1 mg subcut Q7D 02/05/23 08/17/23 Unknown History subcutaneous pen injector (Trulicity) albuterol sulfate 90 mcg/actuation 2 puff inhalation Q4H PRN 06/25/23 08/17/23 Unknown History aerosol inhaler (ProAir HFA) Shortness Of Breath diltiazem HCl 300 mg 300 mg PO DAILY 06/25/23 08/17/23 08/11/23 History tablet,extended release 24 hr (Matzim [place]) buspirone 5 mg tablet 5 mg PO BID 08/11/23 08/17/23 08/11/23 History cholecalciferol (vitamin D3) 25 25 mcg PO DAILY 08/11/23 08/17/23 08/11/23 History mcg (1,000 unit) tablet citalopram 20 mg tablet 20 mg PO DAILY 08/11/23 08/17/23 08/11/23 History clopidogrel 75 mg tablet 75 mg PO DAILY 08/11/23 08/17/23 08/11/23 History insulin glargine 100 unit/mL (3 50 unit subcut BEDTIME 08/11/23 08/17/23 08/11/23 History mL) subcutaneous pen (Lantus Solostar U-100 Insulin) insulin lispro 100 unit/mL See Protocol subcut QIDACHS 08/11/23 08/17/23 08/11/23 History subcutaneous solution (Humalog U-100 Insulin) ipratropium 0.5 mg-albuterol 3 mg 3 ml inhalation BID PRN sob 08/11/23 08/17/23 Unknown History (2.5 mg base)/3 mL nebulization soln loratadine 10 mg tablet 10 mg PO DAILY 08/11/23 08/17/23 08/11/23 History melatonin 3 mg tablet 3 mg PO BEDTIME 08/11/23 08/17/23 08/11/23 History pantoprazole 40 mg tablet,delayed 40 mg PO BID 08/11/23 08/17/23 08/11/23 History release Physical Exam Vital Signs: Vital Signs: Last Vital Signs Temp 98.8 F 08/20/23 14:58 Pulse 81 08/20/23 15:06 Resp 18 08/20/23 15:06 BP 101/50 L 08/20/23 14:58 Pulse Ox 93 08/20/23 14:58 O2 Del Method Room Air 08/20/23 14:58 BMI result Body Mass Index 36.0 Const: General: no acute distress and alert Nutritional Appearance: obese Orientation/consciousness: Other orientation findings ( oriented) HEENT: Head: Yes atraumatic Eyes: General: appearance normal, both eyes and all related structures Sclerae: sclerae normal EOM: EOMs intact bilaterally Neck: Neck: Yes supple Lymphatic: no lymphadenopathy noted Resp: Effort & Inspection: normal respiratory effort and no use of accessory muscles Auscultation: other ( poor bilateral air movement) Cardio: Rate: regular rate Rhythm: regular rhythm Heart sounds: no gallops, no murmurs and no rubs Skin: General skin exam: other ( warm) Extrem: General: No clubbing, No cyanosis and Yes edema ( trace bilateral) Results Laboratory Findings 08/18/23 06:18 08/18/23 06:18 ABG, PT/INR, D-dimer: PT/INR, D-dimer PT 11.6 SEC (11.1-13.3) 08/17/23 13:24 INR 1.0 (0.9-1.1) 08/17/23 13:24 Abnormal lab findings: Abnormal Labs 08/17/23 08/17/23 08/18/23 13:24 21:27 06:18 RBC 3.91 L 3.39 L Hgb 11.0 L 9.6 L Hct 35.1 L 30.3 L Immature Gran % (Auto) 0.5 H 0.8 H Neut % (Auto) 86.6 H Lymph % (Auto) 9.7 L Eos % (Auto) 4.7 H Lymph # (Auto) 0.9 L Eos # (Auto) 0.5 H Abs Immat Gran (auto) 0.05 H 0.07 H VBG pH BUN 20 H 20 H POC Glucose 254 H Random Glucose 224 H 214 H Magnesium 3.1 H B-Natriuretic Peptide 267 H Total Protein 6.3 L 08/18/23 08/18/23 08/18/23 07:49 11:19 15:12 RBC Hgb Hct Immature Gran % (Auto) Neut % (Auto) Lymph % (Auto) Eos % (Auto) Lymph # (Auto) Eos # (Auto) Abs Immat Gran (auto) VBG pH BUN POC Glucose 185 H 275 H 271 H Random Glucose Magnesium B-Natriuretic Peptide Total Protein 08/18/23 08/19/23 08/19/23 20:02 07:34 09:37 RBC Hgb Hct Immature Gran % (Auto) Neut % (Auto) Lymph % (Auto) Eos % (Auto) Lymph # (Auto) Eos # (Auto) Abs Immat Gran (auto) VBG pH 7.56 H BUN POC Glucose 263 H 157 H Random Glucose Magnesium B-Natriuretic Peptide Total Protein 08/19/23 08/19/23 08/19/23 11:09 16:13 20:06 RBC Hgb Hct Immature Gran % (Auto) Neut % (Auto) Lymph % (Auto) Eos % (Auto) Lymph # (Auto) Eos # (Auto) Abs Immat Gran (auto) VBG pH BUN POC Glucose 172 H 299 H 356 H* Random Glucose Magnesium B-Natriuretic Peptide Total Protein 08/19/23 08/20/23 08/20/23 23:10 07:12 11:31 RBC Hgb Hct Immature Gran % (Auto) Neut % (Auto) Lymph % (Auto) Eos % (Auto) Lymph # (Auto) Eos # (Auto) Abs Immat Gran (auto) VBG pH BUN POC Glucose 246 H 142 H 147 H Random Glucose Magnesium B-Natriuretic Peptide Total Protein 08/20/23 16:04 RBC Hgb Hct Immature Gran % (Auto) Neut % (Auto) Lymph % (Auto) Eos % (Auto) Lymph # (Auto) Eos # (Auto) Abs Immat Gran (auto) VBG pH BUN POC Glucose 241 H Random Glucose Magnesium B-Natriuretic Peptide Total Protein Microbiology: Microbiology 08/17/23 17:04 Blood - Venous Blood Culture - Preliminary No growth after 48 hours. 08/17/23 17:04 Blood - Venous Blood Culture - Preliminary No growth after 48 hours. Assessment and Plan (1) Acute exacerbation of chronic obstructive pulmonary disease: Status: Acute (2) Non-cardiac chest pain: Status: Acute (3) Pleural thickening: Status: Acute Plan Impression: 68 per old lady admitted with COPD exacerbation, also appears to have exacerbation of underlying diastolic congestive heart failure and right-sided musculoskeletal chest pain. CT angio chest reviewed - bilateral small pleural effusions and somewhat symmetric pleural thickening. Patient does have remote history of lung cancer, but it does not appear that her current pain symptoms are related to underlying pleural thickening as pleural thickening is bilateral. Likely has underlying neuropathic pain. Recommendations: Agree with prednisone taper and nebulized bronchodilators for COPD exacerbation, empiric antibiotics for community-acquired pneumonia. Consider diuresis as her bicarbonate and creatinine are down trending. Procedures Date of Service Date of Service: 08/20/23
[2023-08-20] MEDS: Insulin Lispro 100 UNIT/ML 3 ML VIAL SUBCUT ×2 (17:17→20:31)
[2023-08-20] MEDS: Azithromycin 500 MG in 0.9 % Sodium Chloride 250 ML 125 MG IV (17:17)
[2023-08-20 19:51] LABS: Glucose, Whole Blood 292 mg/dL (60-115)
[2023-08-20] MEDS: Insulin Glargine,Hum.rec.anlog 100 UNIT/ML 10 ML VIAL 38 UNIT SUBCUT (20:32)
[2023-08-20] MEDS: Melatonin 3 MG TABLET PO (20:33)
[2023-08-20] MEDS: Atorvastatin Calcium 80 MG TABLET PO (20:33)
[2023-08-21] VITALS (10 sets, daily range): BP systolic 127–139; BP diastolic 59–63; PULSE 67–96; RESP 16–20; TEMP 36.2–36.9; O2SAT 69–98; BMI 36.1
[2023-08-21] MEDS: guaiFEN/Codeine SF 200/20/10ML 10 ML LIQUID PO ×6 (01:21→20:31)
[2023-08-21] MEDS: oxyCODONE HCl Immed Release 5 MG TABLET PO ×2 (05:47→18:32)
[2023-08-21] MEDS: Omeprazole 20 MG CAPSULE.DR PO ×2 (05:48→17:13)
[2023-08-21 07:35] LABS: Glucose, Whole Blood 121 mg/dL (60-115)
[2023-08-21] MEDS: Albuterol/Iprat 2.5/0.5MG 3 ML AMPUL.NEB INHALE ×4 (07:43→19:53)
[2023-08-21] MEDS: 0.9 % Sodium Chloride Flush 3 ML SYRINGE IVFLUSH ×3 (08:50→20:35)
[2023-08-21] MEDS: Acetaminophen 325 MG TABLET 650 MG PO ×3 (08:51→20:33)
[2023-08-21] MEDS: busPIRone HCl 5 MG TABLET PO ×2 (08:51→20:33)
[2023-08-21] MEDS: Cholecalciferol (Vitamin D3) 25 MCG TABLET PO (08:51)
[2023-08-21] MEDS: Dicyclomine HCl 10 MG CAPSULE PO ×3 (08:51→17:13)
[2023-08-21] MEDS: Clopidogrel Bisulfate 75 MG TABLET PO (08:51)
[2023-08-21] MEDS: Metoprolol Tartrate 50 MG TABLET PO ×2 (08:52→20:32)
[2023-08-21] MEDS: dilTIAZem HCL CD 300 MG CAP.ER.24H PO (08:52)
[2023-08-21] MEDS: Gabapentin 100 MG CAPSULE PO ×3 (08:52→20:32)
[2023-08-21] MEDS: Cyclobenzaprine HCl 5 MG TABLET PO ×2 (08:52→20:31)
[2023-08-21] MEDS: Empagliflozin 25 MG TABLET PO (08:53)
[2023-08-21] MEDS: lisinopriL 10 MG TABLET PO (08:53)
[2023-08-21] MEDS: Apixaban 5 MG TABLET PO ×2 (08:53→20:33)
[2023-08-21] MEDS: Loratadine 10 MG TABLET PO (08:53)
[2023-08-21] MEDS: hydroCHLOROthiazide 12.5 MG TABLET PO (08:53)
[2023-08-21] MEDS: predniSONE 20 MG TABLET PO (08:53)
[2023-08-21] MEDS: Escitalopram Oxalate 10 MG TABLET PO (08:53)
[2023-08-21] MEDS: Lidocaine 4 % Patch ADH..PATCH 1 PATCH TRANSDERMA ×2 (08:54)
[2023-08-21 09:11] LABS: Anion Gap 15 (12-20); Blood Urea Nitrogen 37 mg/dL (9-16); Calcium 9.1 mg/dL (8.4-10.2); Carbon Dioxide 28 mmol/L (22-29); Chloride 101 mmol/L (96-108); Creatinine Clr Calc Pharmacy 43.9; Estimated Glomerular Filt Rate 42; Glucose Random 116 mg/dL (60-115); Potassium 3.8 mmol/L (3.3-5.1); Sodium 140 mmol/L (135-145)
[2023-08-21] MEDS: Furosemide 20 MG/2 ML VIAL IVPUSH ×2 (10:20→17:12)
[2023-08-21 11:14] LABS: Glucose, Whole Blood 144 mg/dL (60-115)
--- NOTE | 2023-08-21 14:04 | P.PNIM_ITS ---
Subjective Subjective Date of Service: 08/21/23 Interval History: copd excerebation ,right sided pain , constipation Review of Systems pain seems somewhat improving as well as sob. c/o-constipation Physical Exam 2 Vital Signs: Vital Signs: Last Vital Signs Temp 97.4 F 08/21/23 07:09 Pulse 73 08/21/23 11:35 Resp 16 08/21/23 11:35 BP 131/63 08/21/23 07:09 Pulse Ox 93 08/21/23 07:09 O2 Del Method Room Air 08/21/23 07:09 BMI result Body Mass Index 36.1 Appearance: Alert.? Oriented X3.? sob,speaking in short sentences . cvs: rrr, [id number] , no murmur res: diminshed ,has exp b/l wheezing abd: no rebound or guarding ,nt, bs present. ext pulses present , no cyanosis . neuro: axo3 , nonfocal. Objective Data Active Medications Acetaminophen (Acetaminophen 325 Mg Tablet) 650 mg PO Q6H [facility] Last Admin: 08/21/23 08:51 Dose: 650 mg Documented By: MARYBETH Albuterol Sulfate (Albuterol Sulfate 90 Mcg 8 Gm Inhaler) 2 puff INHALE Q4H PRN PRN Reason: Shortness Of Breath Albuterol/Ipratropium (Albuterol/Iprat 2.5/0.5mg 3 Ml Ampul.Neb) 3 ml INHALE RQ4H WHILE AWAKE [facility] Last Admin: 08/21/23 11:32 Dose: 3 ml Documented By: COURTNEY Apixaban (Apixaban 5 Mg Tablet) 5 mg PO BID [facility] Last Admin: 08/21/23 08:53 Dose: 5 mg Documented By: MARYBETH Atorvastatin Calcium (Atorvastatin Calcium 80 Mg Tablet) 80 mg PO BEDTIME [facility] Last Admin: 08/20/23 20:33 Dose: 80 mg Documented By: ROCKY Buspirone HCl (Buspirone Hcl 5 Mg Tablet) 5 mg PO BID [facility] Last Admin: 08/21/23 08:51 Dose: 5 mg Documented By: MARYBETH Clopidogrel Bisulfate (Clopidogrel Bisulfate 75 Mg Tablet) 75 mg PO DAILY [facility] Last Admin: 08/21/23 08:51 Dose: 75 mg Documented By: MARYBETH Cyclobenzaprine HCl (Cyclobenzaprine Hcl 5 Mg Tablet) 5 mg PO BID [facility] Last Admin: 08/21/23 08:52 Dose: 5 mg Documented By: MARYBETH Dextrose (Dextrose 50 % 25 Gm/50 Ml Syringe) 25 gm IVPUSH Q15M PRN; Protocol PRN Reason: per Hypoglycemia Standing Ord. Dicyclomine HCl (Dicyclomine Hcl 10 Mg Capsule) 10 mg PO TIDAC [facility] Last Admin: 08/21/23 13:09 Dose: 10 mg Documented By: MARYBETH Diltiazem HCl (Diltiazem Hcl Cd 300 Mg Cap.Er.24h) 300 mg PO DAILY [facility]; Protocol Last Admin: 08/21/23 08:52 Dose: 300 mg Documented By: MARYBETH Docusate Sodium (Docusate Sodium 100 Mg Capsule) 100 mg PO BID PRN PRN Reason: Constipation Last Admin: 08/20/23 11:57 Dose: 100 mg Documented By: ANN Empagliflozin (Empagliflozin 25 Mg Tablet) 25 mg PO DAILY [facility] Last Admin: 08/21/23 08:53 Dose: 25 mg Documented By: MARYBETH Escitalopram Oxalate (Escitalopram Oxalate 10 Mg Tablet) 10 mg PO DAILY [facility] Last Admin: 08/21/23 08:53 Dose: 10 mg Documented By: MARYBETH Gabapentin (Gabapentin 100 Mg Capsule) 100 mg PO TID [facility] Last Admin: 08/21/23 08:52 Dose: 100 mg Documented By: MARYBETH Glucose (Glucose Gel 15 Gm Gel..Gram.) 15 gm PO Q15M PRN; Protocol PRN Reason: per Hypoglycemia Standing Ord. Guaifenesin/Codeine Phosphate (Guaifen/Codeine Sf 200/20/10ml 10 Ml Liquid) 10 ml PO Q4H [facility] Last Admin: 08/21/23 13:09 Dose: 10 ml Documented By: MARYBETH Hydrochlorothiazide (Hydrochlorothiazide 12.5 Mg Tablet) 12.5 mg PO DAILY [facility] Last Admin: 08/21/23 08:53 Dose: 12.5 mg Documented By: MARYBETH Azithromycin 500 mg/ Sodium (Chloride) 250 mls @ 125 mls/hr IV Q24H [facility] Last Infusion: 08/20/23 20:42 Dose: Infused Documented By: ROCKY Insulin Glargine (Insulin Glargine,Hum.Rec.Anlog 100 Unit/Ml 10 Ml Vial) 38 unit SUBCUT BEDTIME [facility] Last Admin: 08/20/23 20:32 Dose: 38 unit Documented By: ROCKY Insulin Human Lispro (Insulin Lispro 100 Unit/Ml 3 Ml Vial) 0 unit SUBCUT QIDACHS [facility]; Protocol Last Admin: 08/21/23 11:22 Dose: Not Given Documented By: MARYBETH Non-Admin Reason: No Insulin Coverage Lidocaine (Lidocaine 4 % Patch Adh..Patch) 1 patch TRANSDERMA DAILY [facility]; Protocol Last Admin: 08/21/23 08:54 Dose: 1 patch Documented By: MARYBETH Lidocaine (Lidocaine 4 % Patch Adh..Patch) 1 patch TRANSDERMA DAILY [facility]; Protocol Last Admin: 08/21/23 08:54 Dose: 1 patch Documented By: MARBYETH Lisinopril (Lisinopril 10 Mg Tablet) 10 mg PO DAILY [facility] Last Admin: 08/21/23 08:53 Dose: 10 mg Documented By: MARYBETH Loratadine (Loratadine 10 Mg Tablet) 10 mg PO DAILY [facility] Last Admin: 08/21/23 08:53 Dose: 10 mg Documented By: MARYBETH Melatonin (Melatonin 3 Mg Tablet) 3 mg PO BEDTIME [facility] Last Admin: 08/20/23 20:33 Dose: 3 mg Documented By: ROCKY Metoprolol Tartrate (Metoprolol Tartrate 50 Mg Tablet) 50 mg PO BID [facility]; Protocol Last Admin: 08/21/23 08:52 Dose: 50 mg Documented By: MARYBETH Omeprazole (Omeprazole 20 Mg [place].) 20 mg PO BID@0630,1630 [facility] Last Admin: 08/21/23 05:48 Dose: 20 mg Documented By: ROCKY Ondansetron HCl (Ondansetron Hcl 4 Mg/2 Ml Vial) 4 mg IVPUSH Q8H PRN PRN Reason: Nausea and Vomiting Oxycodone HCl (Oxycodone Hcl Immed Release 5 Mg Tablet) 5 mg PO Q6H PRN PRN Reason: Pain, Mild (Pain Scale 1-3) Last Admin: 08/21/23 05:47 Dose: 5 mg Documented By: ROCKY Prednisone (Prednisone 20 Mg Tablet) 20 mg PO DAILY [facility] Last Admin: 08/21/23 08:53 Dose: 20 mg Documented By: MARYBETH Senna (Sennosides 8.6 Mg Tablet) 17.2 mg PO BEDTIME PRN PRN Reason: Constipation Sodium Chloride (0.9 % Sodium Chloride Flush 3 Ml Syringe) 3 ml IVFLUSH QSHIFT [facility] Last Admin: 08/21/23 08:50 Dose: 3 ml Documented By: MARYBETH Vitamin D (Cholecalciferol (Vitamin D3) 25 Mcg Tablet) 25 mcg PO DAILY [facility] Last Admin: 08/21/23 08:51 Dose: 25 mcg Documented By: MARYBETH Labs 08/18/23 06:18 08/21/23 08:19 Labs: Laboratory Results - last 24 hr 08/20/23 08/20/23 08/21/23 16:04 19:48 07:28 Hold Purple Top Anion Gap Estim Creat Clear Calc Estimated GFR POC Glucose 241 H 292 H 121 H Random Glucose Calcium 08/21/23 08/21/23 08:19 11:07 Hold Purple Top SEE NOTE Anion Gap 15 Estim Creat Clear Calc 43.9 Estimated GFR 42 POC Glucose 144 H Random Glucose 116 H Calcium 9.1 Assessment and Plan (1) Pneumonia: Status: Acute (2) Pleural effusion: Status: Acute (3) Acute exacerbation of chronic obstructive pulmonary disease: Status: Acute Plan 72-year-old female with paroxysmal atrial fibrillation anticoagulated with Eliquis, CKD stage 3, mood disorder, fibromyalgia, history of pulmonary embolism on lifelong anticoagulation, CAD with recent NSTEMI s/p stent placement on 06/30 on DAPT , hyperlipidemia, hypertension, ALYSIA on CPAP, and insulin-dependent type 2 diabetes admitted for acute COPD exacerbation. acute COPD exacerbation vs chf excerbation possible diastolic : chest CT negative for pneumonia. Negative for COVID-19, RSV, influenza,viral respiratory panel ordered . moniter i/o: 6.9 /3.2 liter, daily weights continue DuoNebs q.4h while awake, steriods ,azithromycin for pleiotropic effect,Robitussin AC for cough and severe pleuritic chest pain as well as lidocaine patches,added lasix atelectasis with pleural effusion(Small bilateral pleural effusions with associated mild bibasilar atelectasis.): oob , incentive sprio,chest physio. insulin-dependent type 2 diabetes with hyperglycemia -dose adjusted basal insulin -POC glucose, diabetic diet, Humalog on sliding scale HTn -blood pressure reasonably controlled on admission -continue home antihypertensives history pulmonary embolism-continue Eliquis paroxysmal atrial fibrillation-rate controlled-continue Eliquis, metoprolol IBS-continue Bentyl CAD/hyperlipidemia -recent stenting 06/30 -continue Eliquis, Plavix, metoprolol, statin ALYSIA -CPAP at bedtime DVT prophylaxis-Eliquis Full code ongoing need for hospital stay management of COPD exacerbation requiring patient IV steroids and nebulizers, chf -need diuretics and i/o, daily weight monitering Quality Stroke Does the patient have a stroke diagnosis?: No VTE Prior VTE?: No VTE Risk Level:: Medical - moderate - high VTE Device Contraindication: Treatment Not Indicated VTE Drug Contraindication: N/A - Med Ordered
[2023-08-21] MEDS: polyethylene glycoL 3350 17 GM POWD.PACK PO ×2 (15:38→20:31)
[2023-08-21 16:10] LABS: Glucose, Whole Blood 188 mg/dL (60-115)
[2023-08-21] MEDS: Insulin Lispro 100 UNIT/ML 3 ML VIAL SUBCUT ×2 (17:11→20:34)
[2023-08-21] MEDS: Azithromycin 500 MG in 0.9 % Sodium Chloride 250 ML 125 MG IV (17:12)
[2023-08-21 20:12] LABS: Glucose, Whole Blood 276 mg/dL (60-115)
[2023-08-21] MEDS: Melatonin 3 MG TABLET PO (20:31)
[2023-08-21] MEDS: Sennosides 8.6 MG TABLET 17.2 MG PO (20:32)
[2023-08-21] MEDS: Atorvastatin Calcium 80 MG TABLET PO (20:32)
[2023-08-21] MEDS: Docusate Sodium 100 MG CAPSULE PO (20:33)
[2023-08-21] MEDS: Insulin Glargine,Hum.rec.anlog 100 UNIT/ML 10 ML VIAL 38 UNIT SUBCUT (20:34)
[2023-08-22 03:48] VITALS: BP 129/62; PULSE 66; RESP 18; TEMP 36.3; O2SAT 97
[2023-08-22 03:52] VITALS: PULSE 97; RESP 18; O2SAT 66
[2023-08-22 05:10] VITALS: BMI 36.2
[2023-08-22] MEDS: guaiFEN/Codeine SF 200/20/10ML 10 ML LIQUID PO ×3 (05:22→13:03)
[2023-08-22] MEDS: Omeprazole 20 MG CAPSULE.DR PO (05:23)
[2023-08-22 07:24] VITALS: BP 169/74; PULSE 69; RESP 18; TEMP 36.1; O2SAT 95
[2023-08-22 07:45] LABS: Glucose, Whole Blood 88 mg/dL (60-115)
[2023-08-22 08:09] VITALS: PULSE 72; RESP 18; O2SAT 98
[2023-08-22] MEDS: Albuterol/Iprat 2.5/0.5MG 3 ML AMPUL.NEB INHALE ×2 (08:09→11:34)
[2023-08-22] MEDS: 0.9 % Sodium Chloride Flush 3 ML SYRINGE IVFLUSH (09:30)
[2023-08-22] MEDS: predniSONE 20 MG TABLET PO (09:31)
[2023-08-22] MEDS: Apixaban 5 MG TABLET PO (09:31)
[2023-08-22] MEDS: Cholecalciferol (Vitamin D3) 25 MCG TABLET PO (09:31)
[2023-08-22] MEDS: polyethylene glycoL 3350 17 GM POWD.PACK PO (09:31)
[2023-08-22] MEDS: Dicyclomine HCl 10 MG CAPSULE PO ×2 (09:31→13:03)
[2023-08-22] MEDS: Loratadine 10 MG TABLET PO (09:31)
[2023-08-22] MEDS: Metoprolol Tartrate 100 MG TABLET PO (09:31)
[2023-08-22] MEDS: Gabapentin 100 MG CAPSULE PO (09:31)
[2023-08-22] MEDS: Lactulose 20 GM/30 ML SOLUTION PO (09:31)
[2023-08-22] MEDS: Clopidogrel Bisulfate 75 MG TABLET PO (09:32)
[2023-08-22] MEDS: Escitalopram Oxalate 10 MG TABLET PO (09:32)
[2023-08-22] MEDS: dilTIAZem HCL CD 300 MG CAP.ER.24H PO (09:32)
[2023-08-22] MEDS: Cyclobenzaprine HCl 5 MG TABLET PO (09:32)
[2023-08-22] MEDS: busPIRone HCl 5 MG TABLET PO (09:32)
[2023-08-22] MEDS: Empagliflozin 25 MG TABLET PO (09:32)
[2023-08-22] MEDS: Lidocaine 4 % Patch ADH..PATCH 1 PATCH TRANSDERMA ×2 (09:33)
[2023-08-22] MEDS: Acetaminophen 325 MG TABLET 650 MG PO (09:39)
--- NOTE | 2023-08-22 10:03 | P.PNIM_ITS ---
Subjective Subjective Date of Service: 08/22/23 Interval History: copd excerebatio,constipation Review of Systems sob seems improvin feels constipated. Physical Exam 2 Vital Signs: Vital Signs: Last Vital Signs Temp 96.9 F 08/22/23 07:24 Pulse 72 08/22/23 08:09 Resp 18 08/22/23 08:09 BP 169/74 H 08/22/23 07:24 Pulse Ox 95 08/22/23 07:24 O2 Del Method Room Air 08/22/23 07:24 BMI result Body Mass Index 36.2 Objective Data Active Medications Acetaminophen (Acetaminophen 325 Mg Tablet) 650 mg PO Q6H [facility] Last Admin: 08/22/23 09:39 Dose: 650 mg Documented By: DUDLEY Albuterol Sulfate (Albuterol Sulfate 90 Mcg 8 Gm Inhaler) 2 puff INHALE Q4H PRN PRN Reason: Shortness Of Breath Albuterol/Ipratropium (Albuterol/Iprat 2.5/0.5mg 3 Ml Ampul.Neb) 3 ml INHALE RQ4H WHILE AWAKE [facility] Last Admin: 08/22/23 08:09 Dose: 3 ml Documented By: COURTNEY Apixaban (Apixaban 5 Mg Tablet) 5 mg PO BID [facility] Last Admin: 08/22/23 09:31 Dose: 5 mg Documented By: DUDLEY Atorvastatin Calcium (Atorvastatin Calcium 80 Mg Tablet) 80 mg PO BEDTIME [facility] Last Admin: 08/21/23 20:32 Dose: 80 mg Documented By: BRYCEILLuz Buspirone HCl (Buspirone Hcl 5 Mg Tablet) 5 mg PO BID [facility] Last Admin: 08/22/23 09:32 Dose: 5 mg Documented By: DUDLEY Clopidogrel Bisulfate (Clopidogrel Bisulfate 75 Mg Tablet) 75 mg PO DAILY [facility] Last Admin: 08/22/23 09:32 Dose: 75 mg Documented By: DUDLEY Cyclobenzaprine HCl (Cyclobenzaprine Hcl 5 Mg Tablet) 5 mg PO BID [facility] Last Admin: 08/22/23 09:32 Dose: 5 mg Documented By: DUDLEY Dextrose (Dextrose 50 % 25 Gm/50 Ml Syringe) 25 gm IVPUSH Q15M PRN; Protocol PRN Reason: per Hypoglycemia Standing Ord. Dicyclomine HCl (Dicyclomine Hcl 10 Mg Capsule) 10 mg PO TIDAC [facility] Last Admin: 08/22/23 09:31 Dose: 10 mg Documented By: DUDLEY Diltiazem HCl (Diltiazem Hcl Cd 300 Mg Cap.Er.24h) 300 mg PO DAILY [facility]; Protocol Last Admin: 08/22/23 09:32 Dose: 300 mg Documented By: DUDLEY Docusate Sodium (Docusate Sodium 100 Mg Capsule) 100 mg PO BID PRN PRN Reason: Constipation Last Admin: 08/21/23 20:33 Dose: 100 mg Documented By: BRYCEILLuz Empagliflozin (Empagliflozin 25 Mg Tablet) 25 mg PO DAILY [facility] Last Admin: 08/22/23 09:32 Dose: 25 mg Documented By: DUDLEY Escitalopram Oxalate (Escitalopram Oxalate 10 Mg Tablet) 10 mg PO DAILY [facility] Last Admin: 08/22/23 09:32 Dose: 10 mg Documented By: DUDLEY Gabapentin (Gabapentin 100 Mg Capsule) 100 mg PO TID [facility] Last Admin: 08/22/23 09:31 Dose: 100 mg Documented By: DUDLEY Glucose (Glucose Gel 15 Gm Gel..Gram.) 15 gm PO Q15M PRN; Protocol PRN Reason: per Hypoglycemia Standing Ord. Guaifenesin/Codeine Phosphate (Guaifen/Codeine Sf 200/20/10ml 10 Ml Liquid) 10 ml PO Q4H [facility] Last Admin: 08/22/23 09:30 Dose: 10 ml Documented By: DUDLEY Azithromycin 500 mg/ Sodium (Chloride) 250 mls @ 125 mls/hr IV Q24H [facility] Last Infusion: 08/21/23 20:49 Dose: Infused Documented By: NIRU Insulin Glargine (Insulin Glargine,Hum.Rec.Anlog 100 Unit/Ml 10 Ml Vial) 38 unit SUBCUT BEDTIME [facility] Last Admin: 08/21/23 20:34 Dose: 38 unit Documented By: NIRU Insulin Human Lispro (Insulin Lispro 100 Unit/Ml 3 Ml Vial) 0 unit SUBCUT QIDACHS [facility]; Protocol Last Admin: 08/22/23 08:48 Dose: Not Given Documented By: DUDLEY Non-Admin Reason: No Insulin Coverage Lidocaine (Lidocaine 4 % Patch Adh..Patch) 1 patch TRANSDERMA DAILY [facility]; Protocol Last Admin: 08/22/23 09:33 Dose: 1 patch Documented By: DUDLEY Lidocaine (Lidocaine 4 % Patch Adh..Patch) 1 patch TRANSDERMA DAILY [facility]; Protocol Last Admin: 08/22/23 09:33 Dose: 1 patch Documented By: DUDLEY Loratadine (Loratadine 10 Mg Tablet) 10 mg PO DAILY [facility] Last Admin: 08/22/23 09:31 Dose: 10 mg Documented By: DUDLEY Melatonin (Melatonin 3 Mg Tablet) 3 mg PO BEDTIME [facility] Last Admin: 08/21/23 20:31 Dose: 3 mg Documented By: NIRU Metoprolol Tartrate (Metoprolol Tartrate 100 Mg Tablet) 100 mg PO BID [facility]; Protocol Last Admin: 08/22/23 09:31 Dose: 100 mg Documented By: DUDLEY Omeprazole (Omeprazole 20 Mg Capsule.Dr) 20 mg PO BID@0630,1630 [facility] Last Admin: 08/22/23 05:23 Dose: 20 mg Documented By: JAYME Ondansetron HCl (Ondansetron Hcl 4 Mg/2 Ml Vial) 4 mg IVPUSH Q8H PRN PRN Reason: Nausea and Vomiting Oxycodone HCl (Oxycodone Hcl Immed Release 5 Mg Tablet) 5 mg PO Q6H PRN PRN Reason: Pain, Mild (Pain Scale 1-3) Last Admin: 08/21/23 18:32 Dose: 5 mg Documented By: MARYBETH Polyethylene Glycol (Polyethylene Glycol 3350 17 Gm Powd.Pack) 17 gm PO BID [facility] Last Admin: 08/22/23 09:31 Dose: 17 gm Documented By: DUDLEY Prednisone (Prednisone 20 Mg Tablet) 20 mg PO DAILY [facility] Last Admin: 08/22/23 09:31 Dose: 20 mg Documented By: DUDLEY Senna (Sennosides 8.6 Mg Tablet) 17.2 mg PO BEDTIME PRN PRN Reason: Constipation Last Admin: 08/21/23 20:32 Dose: 17.2 mg Documented By: NIRU Sodium Biphosphate/Sodium Phosphate (Sodium Phosphate,Gates-Dibasic 133 Ml Enema) 133 ml MA ONCE PRN PRN Reason: Constipation Sodium Chloride (0.9 % Sodium Chloride Flush 3 Ml Syringe) 3 ml IVFLUSH QSHIFT [facility] Last Admin: 08/22/23 09:30 Dose: 3 ml Documented By: DUDLEY Vitamin D (Cholecalciferol (Vitamin D3) 25 Mcg Tablet) 25 mcg PO DAILY [facility] Last Admin: 08/22/23 09:31 Dose: 25 mcg Documented By: DUDLEY Labs 08/18/23 06:18 08/21/23 08:19 Labs: Laboratory Results - last 24 hr 08/21/23 08/21/23 08/21/23 11:07 16:06 19:45 POC Glucose 144 H 188 H 276 H 08/22/23 07:28 POC Glucose 88 Assessment and Plan (1) CKD stage 3 due to type 2 diabetes mellitus: Status: Acute Plan 72-year-old female with paroxysmal atrial fibrillation anticoagulated with Eliquis, CKD stage 3, mood disorder, fibromyalgia, history of pulmonary embolism on lifelong anticoagulation, CAD with recent NSTEMI s/p stent placement on 06/30 on DAPT , hyperlipidemia, hypertension, ALYSIA on CPAP, and insulin-dependent type 2 diabetes admitted for acute COPD exacerbation. acute COPD exacerbation vs chf excerbation possible diastolic : chest CT negative for pneumonia. Negative for COVID-19, RSV, influenza,viral respiratory panel ordered . moniter i/o: 6.9 /3.2 liter, daily weights continue DuoNebs q.4h while awake, steriods ,azithromycin for pleiotropic effect,Robitussin AC for cough and severe pleuritic chest pain as well as lidocaine patches,added lasix atelectasis with pleural effusion(Small bilateral pleural effusions with associated mild bibasilar atelectasis.): oob , incentive sprio,chest physio. insulin-dependent type 2 diabetes with hyperglycemia -dose adjusted basal insulin -POC glucose, diabetic diet, Humalog on sliding scale HTn -blood pressure reasonably controlled on admission -continue home antihypertensives history pulmonary embolism-continue Eliquis paroxysmal atrial fibrillation-rate controlled-continue Eliquis, metoprolol IBS-continue Bentyl CAD/hyperlipidemia -recent stenting 06/30 -continue Eliquis, Plavix, metoprolol, statin ALYSIA -CPAP at bedtime DVT prophylaxis-Eliquis Full code ongoing need for hospital stay management of COPD exacerbation requiring patient IV steroids and nebulizers, chf -need diuretics and i/o, daily weight monitering Quality Stroke Does the patient have a stroke diagnosis?: No VTE Prior VTE?: No VTE Risk Level:: Medical - moderate - high VTE Device Contraindication: Treatment Not Indicated VTE Drug Contraindication: N/A - Med Ordered
[2023-08-22 11:12] LABS: Glucose, Whole Blood 118 mg/dL (60-115)
[2023-08-22 11:36] VITALS: PULSE 76; RESP 18; O2SAT 94
--- NOTE | 2023-08-22 12:36 | P.DS_ITS ---
DS: Providers Provider Date of Service: 08/22/23 Date of admission: 08/17/23 19:32 Date of discharge: 08/22/23 Primary care physician: Amanda Leiva MD Consults: 08/20/23 14:51 Consult to Pulmonology Routine Consulting Provider: [facility] Reason for consultation: copd excerebation/pleursy-right pleural thickening. hx of lung cancer Has provider been notified: No Attending physician on discharge: Kenrick Millard Discharging clinician: Kenrick Millard DS: Diagnosis Discharge Diagnosis (1) Pneumonia: Status: Acute (2) Pleural effusion: Status: Acute (3) Acute exacerbation of chronic obstructive pulmonary disease: Status: Acute DS: Summary Hospital Course Hospital Course: 72-year-old female with paroxysmal atrial fibrillation anticoagulated with Eliquis, CKD stage 3, mood disorder, fibromyalgia, history of pulmonary embolism on lifelong anticoagulation, CAD with recent NSTEMI s/p stent placement on 06/30 on DAPT , hyperlipidemia, hypertension, ALYSIA on CPAP, and insulin-dependent type 2 diabetes presented to the ED earlier today for evaluation of wheezing, shortness of breath, productive cough with green sputum production ongoing for 3-4 days. She is reporting 7/10 posterior right-sided pleuritic chest pain. Denies any associated fevers, chills, sore throat, nasal congestion, abdominal pain, nausea, vomiting, diarrhea, urinary symptoms, orthopnea, PND, chest pain. She denies any sick contacts at home or recent travel. She was discharged yesterday having been diagnosed with acute pancreatitis and IBS and was discharged on high-dose PPI and Bentyl. On arrival, patient hypertensive to 177/67, vitals otherwise stable. She was intermittently tachypneic to 30 and became tachycardic following DuoNeb to 120. On admission, blood pressure improved to 141/77. There is no leukocytosis. Renal function baseline, electrolyte levels normal. Glucose 224. Troponin within normal limits. BNP 267. Negative for COVID-19, RSV, influenza. Chest x-ray shows left pleural effusion with underlying atelectasis. Subsequent CTA chest negative for PE but does show small bilateral pleural effusions with associated mild bibasilar atelectasis. In the ED, given 125 mg methylprednisolone, 1 g IV ceftriaxone, 500 mg IV Zithromax. She has also been given 4 mg morphine and albuterol/duoneb aspir[facility]. Hospital course: Patient came to the hospital because of possible COPD exacerbation-which is was treated with nebs, steroids seems to be improved significantly. Her chest imaging(ct chest-please see imaging section for detailed information) shows- atelectasis and pleural thickening: Patient has some pleuritic pain , seen by pulmonary :possible musculocutaneous vs neuropathic pain added hycodan syrup, gabapentin, lidocaine patch-pain improving. Patient was strongly advised to use incentive spirometry. Patient also ambulating well, feeling better. 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 Patient also needs to follow-up with Pulmonary out patiently for atelectasis and bilateral pleural thickening. constipation : added bowel regimen. follow up with pcp and pulmonary outpatient. plan: use incentive spirometry,encouraged for ambulation. started on lasix 20 mg daily complete course prednisone 20 mg daily for 4 days. complete azithromycin 250 mg po daily x2 days. continue bowel regimen -colace and miralix. follow up with pcp and pulmonary outpatient. consider consider outpatient workup with echo and cardiology eval. Assessment plan coordination time spent 50 minute, above management discussed the patient and his her daughter in detail length they both understand and agreement with above plan. Time Attestation Discharge coordination time: Greater than 30 minutes Quality: Safe Use of Opioids Does Pt have an Active Cancer Diagnosis on the Problem List?: No Quality: Stroke Does the patient have a stroke diagnosis?: No Physical Exam Vital Signs: Vital Signs: Last Vital Signs Temp 96.9 F 08/22/23 07:24 Pulse 76 08/22/23 11:36 Resp 18 08/22/23 11:36 BP 169/74 H 08/22/23 07:24 Pulse Ox 95 08/22/23 07:24 O2 Del Method Room Air 08/22/23 07:24 BMI result Body Mass Index 36.2 Appearance: Alert.? Oriented X3.? sob,speaking in short sentences . cvs: rrr, [id number] , no murmur res: air entry fair ,no rales or wheezing abd: no rebound or guarding ,nt, bs present. ext pulses present , no cyanosis . neuro: axo3 , nonfocal. DS: Data Data Completed and Pending Labs on day of discharge: Laboratory Results - last 24 hr 08/21/23 08/21/23 08/22/23 16:06 19:45 07:28 POC Glucose 188 H 276 H 88 08/22/23 11:00 POC Glucose 118 H Preliminary micro results at discharge 08/17/23 17:04 Blood Culture - Preliminary Blood - Venous No growth after 48 hours. 08/17/23 17:04 Blood Culture - Preliminary Blood - Venous No growth after 48 hours. Imaging Chest x-ray: Radiologist's impression: ITS Impressions Chest X-Ray 08/17/23 13:40 IMPRESSION: Left pleural effusion with underlying atelectasis. Mild dorsal spine spondylosis. Chest CTA 08/17/23 17:56 IMPRESSION: No evidence for pulmonary embolism. Small bilateral pleural effusions with associated mild bibasilar atelectasis. VTE: Negative for pulmonary embolism. Discharge Plan Discharge Anticipated Discharge Date/Time: 08/22/23 11:58 Patient Disposition: Home, Self-Care Discharge Diagnosis: copd excerebation ,atelactasis /pleural thickening Referrals: Amanda Leiva MD [Primary Care Provider] - 1 Week Discharge Medications: New prednisone 20 mg Tablet 20 mg PO DAILY Qty: 3 0RF codeine-guaifenesin 10-100 mg/5 mL Liquid 10 ml PO Q6H PRN (Reason: cough) Qty: 120 0RF lidocaine [Lidocaine Pain Relief] 4 % Adhesive Patch,Medicated 1 patch transdermal DAILY Qty: 10 0RF Protocol: Apply to: Apply to: right flank docusate sodium 100 mg Capsule 100 mg PO BID PRN (Reason: Constipation) Qty: 30 0RF polyethylene glycol 3350 17 gram Powder In Packet 17 g PO BID Qty: 30 0RF acetaminophen 325 mg Tablet 650 mg PO Q6H PRN (Reason: pain) Qty: 30 0RF gabapentin 100 mg Capsule 100 mg PO DAILY PRN (Reason: pain) Qty: 10 0RF lisinopril 10 mg tablet 10 mg PO DAILY Qty: 30 0RF furosemide [Lasix] 20 mg tablet 20 mg PO DAILY Qty: 30 0RF azithromycin 250 mg tablet 250 mg PO DAILY 2 Days Qty: 2 0RF Continued Jardiance 25 mg tablet 25 mg PO DAILY Qty: 90 1RF (DME) FreeStyle Lite Strips Strip See Rx Instructions .Route Qty: 100 3RF Rx Instructions: test blood sugar once a day metoprolol tartrate 50 mg tablet 50 mg PO BID Qty: 180 3RF (DME) FreeStyle Kelly 2 Sensor Kit See Rx Instructions .ROUTE .MEDSUPPLY Qty: 6 3RF Rx Instructions: As directed every 2 weeks (DME) [facility] [place] .Route Qty: 1 0RF Rx Instructions: As directed clopidogrel 75 mg tablet 75 mg PO DAILY pantoprazole 40 mg tablet,delayed release (DR/EC) 40 mg PO BID ipratropium-albuterol 0.5 mg-3 mg(2.5 mg base)/3 mL solution for nebulization 3 ml inhalation BID PRN (Reason: sob) buspirone 5 mg tablet 5 mg PO BID melatonin 3 mg Tablet 3 mg PO BEDTIME citalopram 20 mg tablet 20 mg PO DAILY loratadine 10 mg Tablet 10 mg PO DAILY cholecalciferol (vitamin D3) 25 mcg (1,000 unit) Tablet 25 mcg PO DAILY insulin lispro [Humalog U-100 Insulin] 100 unit/mL solution See Protocol subcut QIDACHS Protocol: Insulin Correction Scale Less than or equal to 110 ---- Give (units): 0 111 to 150 Give (units): 12 151 to 200 Give (units): 14 201 to 250 Give (units): 16 251 to 300 Give (units): 18 301 to 350 Give (units): 20 Greater than 350 Give (units): 20 Call MD if Blood Glucose > : 350 insulin glargine [Lantus Solostar U-100 Insulin] 100 unit/mL (3 mL) insulin pen 50 unit subcut BEDTIME dicyclomine 10 mg Capsule 10 mg PO TIDAC Qty: 90 0RF diltiazem HCl [Matzim LA] 300 mg tablet extended release 24 hr 300 mg PO DAILY albuterol sulfate [ProAir HFA] 90 mcg/actuation Hfa Aerosol Inhaler 2 puff INHALATION Q4H PRN (Reason: Shortness Of Breath) Hold Instructions: Resume on 06/29/23. Trulicity 1.5 mg/0.5 mL pen injector 1 mg subcut Q7D atorvastatin 80 mg tablet 80 mg PO QPM Qty: 90 2RF Eliquis 5 mg tablet 5 mg PO BID Hold Instructions: Resume on 06/30/23. hold until patient on iv heparin Discontinued lisinopril-hydrochlorothiazide 10-12.5 mg tablet 1 tab PO DAILY Qty: 90 3RF Hold Instructions: Resume on 06/30/23. Discharge Orders: Discharge Order (Routine); Ordered 08/22/23 Ordered By: Kenrick Millard Diet: Advance to usual diet Activity on Discharge: As tolerated Stand Alone Forms: Patient Portal Discharge page Other Ambulatory Orders: Basic Metabolic Panel (Routine) Timeframe: 1 Week Facility: [facility] - Location: Laboratory Ordered By: Kenrick Millard Care Plan Goals: Patient came to the hospital because of possible COPD exacerbation-which is was treated with nebs, steroids seems to be improved significantly. Her chest imaging(ct chest) shows-atelectasis and pleural thickening: Patient has some pleuritic pain , seen by pulmonary :possible musculocutaneous vs neuropathic pain added hycodan syrup, gabapentin, lidocaine patch-pain improving. Patient was strongly advised to use incentive spirometry. possible chf component (etiolgy unclear need echo outpatient): given elevated bnp, b/l effusions: will switch hctz to lasix .now not sob ,sats seems fine ,consider outpatient wokrup with echo and follow up her apprenticeship consultant outpateint. Patient also needs to follow-up with Pulmonary out patiently for atelectasis and bilateral pleural thickening. constipation : added bowel regimen. follow up with pcp and pulmonary outpatient. Health Concerns: as above. Plan of Treatment: as above. Assessment: as above.
[2023-08-22] MEDS: Azithromycin 250 MG TABLET PO (13:03)
--- NOTE | 2023-08-22 13:20 | MHC.CM.PN ---
PT TO DC HOME TODAY WITH [facility] TO TRANSPORT
--- NOTE | 2023-08-22 13:22 | P.F2F_ITS ---
Service Date Service Date: 08/22/23 Encounter Date of encounter: 08/22/23 Encounter: copd execerbation ,pain ,?chf Reasons for Services Signs and symptoms assessed: sob or fever or worsening pain Reason for prison: medication management, medication treatment and teach disease management Reason for physical therapy: home safety and mobility, therapeutic exercises, restore joint function, gait/transfer training, assess need for DME, ADL training, energy conservation and other MD Overseeing Care: Amanda Leiva Homebound: Leaving the home is medically contraindicated at this time without the asist of a device and/or another person due th the listed conditions above and below. Reason homebound: weakness related to hospital stay Homebound supporting statement: Patient has multiple comorbidities including COPD exacerbation, possible CHF,, generalized weak post hospitalization -need help with the lab draws, PT, appointments. He Certification: Based on the above findings, I certify that this patient is confined to the home and needs intermittent prison care, physical therapy and/or speech therapy, or continues to need occupational therapy. The patient is under my care, and I have initiated the establishment of the plan of care. The patient will be followed by a physician who will periodically review the plan of care. Time Spent With Patient Time: Total time managing care of this patient today ____ minutes.
== END 2023-08-22 13:45 | disposition home health service (06) | DRG 190 ==
LOC: HO.ED 16:33 → HO.EDOVER 19:48 → HO.S3 20:06
PROVIDERS: Physician Assistant; Admitting Provider Physician Assistant; Emergency Provider Emergency Medicine Emergency Medical Services; PCP Internal Medicine; Visit Provider Internal Medicine
DX: J44.1 Chronic obstructive pulmonary disease with (acute) exacerbation (principal); I50.31 Acute diastolic (congestive) heart failure; I13.0 Hypertensive heart and chronic kidney disease with heart failure and stage 1 through stage 4 chronic kidney disease, or unspecified chronic kidney disease; E11.22 Type 2 diabetes mellitus with diabetic chronic kidney disease; E11.65 Type 2 diabetes mellitus with hyperglycemia; K58.9 Irritable bowel syndrome, unspecified; N18.30 Chronic kidney disease, stage 3 unspecified; I25.10 Atherosclerotic heart disease of native coronary artery without angina pectoris; K59.00 Constipation, unspecified; E78.5 Hyperlipidemia, unspecified; I48.0 Paroxysmal atrial fibrillation; Z20.822 Contact with and (suspected) exposure to COVID-19; Z87.891 Personal history of nicotine dependence; Z91.040 Latex allergy status; Z85.118 Personal history of other malignant neoplasm of bronchus and lung; Z86.711 Personal history of pulmonary embolism; Z95.5 Presence of coronary angioplasty implant and graft; Z90.2 Acquired absence of lung [part of]; Z79.4 Long term (current) use of insulin; Z79.01 Long term (current) use of anticoagulants; Z79.02 Long term (current) use of antithrombotics/antiplatelets; Z79.899 Other long term (current) drug therapy
CPT/HCPCS: 0241U; 36415; 71046; 71275; 80048; 80076; 82803; 82947; 83735; 83880; 84484; 85025; 85610; 87040; 87633; 93005; 94640; 94660; 97110; 97116; 97162; 97530; 99221; 99285; J0456; J0696; J1940; J2270; J2920; J2930

== ENCOUNTER → 2023-08-17 11:38 | Outpatient (BNV) | payer MEDICARE, SELFPAY | PROVIDERS: Emergency Provider Emergency Medicine Emergency Medical Services; PCP Internal Medicine; Visit Provider Internal Medicine Cardiovascular Disease | DX: R07.9 Chest pain, unspecified (principal); R06.02 Shortness of breath | CPT/HCPCS: 93010 ==

== ENCOUNTER → 2023-08-17 19:32 | Outpatient (BNV) | payer MEDICARE, SELFPAY | PROVIDERS: Admitting Provider Physician Assistant; Emergency Provider Emergency Medicine Emergency Medical Services; PCP Internal Medicine; Visit Provider Physician Assistant | DX: J18.9 Pneumonia, unspecified organism (principal); J90 Pleural effusion, not elsewhere classified; J44.1 Chronic obstructive pulmonary disease with (acute) exacerbation | CPT/HCPCS: 99223; 99231; 99232; 99239; G0180 ==

== ENCOUNTER → 2023-08-17 19:32 | Outpatient (BNV) | payer MEDICARE, SELFPAY | PROVIDERS: Admitting Provider Physician Assistant; Emergency Provider Emergency Medicine Emergency Medical Services; PCP Internal Medicine; Visit Provider Internal Medicine Pulmonary Disease | DX: J44.1 Chronic obstructive pulmonary disease with (acute) exacerbation (principal); R07.89 Other chest pain; J92.9 Pleural plaque without asbestos | CPT/HCPCS: 99222 ==

== ENCOUNTER 2023-08-29 16:04 | Inpatient (IN) | payer MEDICARE, SELFPAY ==
[2023-08-29] VITALS (7 sets, daily range): BP systolic 109–140; BP diastolic 35–66; PULSE 96–110; RESP 19–40; TEMP 36.7–37; O2SAT 95–98; BMI 34.7
--- NOTE | ~2023-08-29 | XR_ITS ---
EXAMINATION: XR CHEST CLINICAL INFORMATION: Pneumonia COMPARISON: Chest radiograph and CT chest 08/17/2023 TECHNIQUE: Frontal view of the chest was obtained. FINDINGS: Heart size is normal. No evidence of CHF. No consolidations or lung masses. There is some mild tenting of the left hemidiaphragm laterally which may be indicative of a subpulmonic effusion which could be seen on prior imaging. No consolidations. Scoliosis is present in the spine with degenerative changes. ACDF hardware is again noted. XR/XR chest 1V IMPRESSION: No acute intrathoracic disease. Question of a small subpulmonic effusion on the left.
--- NOTE | 2023-08-29 16:24 | ECG_ITS ---
Test Reason : DYSPNEA Blood Pressure : / mmHG Vent. Rate : 097 BPM Atrial Rate : 097 BPM P-R Int : 180 ms QRS Dur : 078 ms QT Int : 364 ms P-R-T Axes : 030 020 057 degrees QTc Int : 462 ms Normal sinus rhythm Normal ECG When compared with ECG of 17-AUG-2023 11:57, No significant change was found Referred By: Rigoberto Benítez Electronically Signed By:NELSON PLASCENCIA MD
[2023-08-29 16:44] LABS: MANUAL DIFF FLAG NO
--- NOTE | 2023-08-29 16:46 | ED_ITS ---
HPI - General Adult General Chief complaint: Dyspnea Stated complaint: cc of diff breathing/SOB, duo neb&IV started Time Seen by Provider: 08/29/23 16:18 Source: patient Mode of arrival: ambulatory Limitations: no limitations History of Present Illness HPI narrative: 72-year-old female history of COPD, diabetes, coronary artery disease, PE, sleep apnea presents to the ED for shortness of breath and wheezing since last night with coughing and green phlegm. patient denies any recent travel outside the country, leg swelling, calf pain, or coughing up blood. patient has history of multiple COPD exacerbations. Related Data Home Medications Medication Instructions Recorded Confirmed apixaban 5 mg tablet (Eliquis) 5 mg PO BID 09/30/21 08/17/23 dulaglutide 1.5 mg/0.5 mL 1 mg subcut Q7D 02/05/23 08/17/23 subcutaneous pen injector (Trulicity) albuterol sulfate 90 mcg/actuation 2 puff inhalation Q4H PRN 06/25/23 08/17/23 aerosol inhaler (ProAir HFA) Shortness Of Breath buspirone 5 mg tablet 5 mg PO BID 08/11/23 08/17/23 cholecalciferol (vitamin D3) 25 25 mcg PO DAILY 08/11/23 08/17/23 mcg (1,000 unit) tablet insulin glargine 100 unit/mL (3 50 unit subcut BEDTIME 08/11/23 08/17/23 mL) subcutaneous pen (Lantus Solostar U-100 Insulin) insulin lispro 100 unit/mL See Protocol subcut QIDACHS 08/11/23 08/17/23 subcutaneous solution (Humalog U-100 Insulin) ipratropium 0.5 mg-albuterol 3 mg 3 ml inhalation BID PRN sob 08/11/23 08/17/23 (2.5 mg base)/3 mL nebulization soln loratadine 10 mg tablet 10 mg PO DAILY 08/11/23 08/17/23 melatonin 3 mg tablet 3 mg PO BEDTIME 08/11/23 08/17/23 pantoprazole 40 mg tablet,delayed 40 mg PO BID 08/11/23 08/17/23 release Previous Rx's Medication Instructions Recorded atorvastatin 80 mg tablet 80 mg PO QPM #90 tabs 02/05/23 walker #1 ea 02/28/23 empagliflozin 25 mg tablet 25 mg PO DAILY #90 tabs 03/19/23 (Jardiance) blood sugar diagnostic (FreeStyle #100 ea 03/26/23 Lite Strips) metoprolol tartrate 50 mg tablet 50 mg PO BID #180 tabs 04/21/23 flash glucose sensor (FreeStyle #6 ea 05/14/23 Kelly 2 Sensor kit) dicyclomine 10 mg capsule 10 mg PO TIDAC #90 caps 08/14/23 acetaminophen 325 mg tablet 650 mg (2 x 325 mg) PO Q6H PRN 08/22/23 pain #30 tabs azithromycin 250 mg tablet 250 mg PO DAILY 2 days #2 tabs 08/22/23 codeine 10 mg-guaifenesin 100 mg/5 10 ml PO Q6H PRN cough #120 mL 08/22/23 mL oral liquid docusate sodium 100 mg capsule 100 mg PO BID PRN Constipation #30 08/22/23 caps furosemide 20 mg tablet (Lasix) 20 mg PO DAILY #30 tabs 08/22/23 gabapentin 100 mg capsule 100 mg PO DAILY PRN pain #10 caps 08/22/23 lidocaine 4 % topical patch 1 patch transdermal DAILY #10 ea 08/22/23 (Lidocaine Pain Relief) lisinopril 10 mg tablet 10 mg PO DAILY #30 tabs 08/22/23 polyethylene glycol 3350 17 gram 17 g PO BID #30 ea 08/22/23 oral powder packet prednisone 20 mg tablet 20 mg PO DAILY #3 tabs 08/22/23 citalopram 20 mg tablet 20 mg PO DAILY #90 tabs 08/27/23 clopidogrel 75 mg tablet 75 mg PO DAILY #90 tabs 08/27/23 diltiazem HCl 300 mg 300 mg PO DAILY #90 tabs 08/27/23 tablet,extended release 24 hr (Matzim [place]) Allergies Allergy/AdvReac Type Severity Reaction Status Date / Time Latex, Natural Rubber Allergy Severe blisters Verified 06/25/23 11:54 Sulfa (Sulfonamide Allergy Mild ITCHING, Verified 06/25/23 11:54 Antibiotics) rash [SULFA (SULFONAMIDE ANTIBIOTICS)] nystatin Allergy Unknown rash Verified 06/25/23 11:54 isosorbide [From Imdur] AdvReac Unknown HEADACHES, Verified 06/25/23 11:54 headache tizanidine AdvReac Unknown weakness, Verified 06/25/23 11:54 Hellucination Review of Systems 2 Review of Systems: coughing, wheezing, green phlegm, shortness of breath Yes all other systems are reviewed and are negative [facility] Past Medical History Medical History Paroxysmal atrial fibrillation Pulmonary embolism Obesity Dyslipidemia Hypertension CAD (coronary artery disease) USP (current) use of insulin Diabetes type 2, uncontrolled Respiratory failure Obstructive sleep apnea COPD (chronic obstructive pulmonary disease) Surgical History History of carpal tunnel surgery History of cholecystectomy History of lobectomy of lung Status post tracheoplasty History of cardiac cath Family History Family History Mother No problems noted. Father No problems noted. Brother Substance use disorder Brother Substance use disorder Social History Social History Household Members: Family Household Members Other:: Lives with daughter and grandson Housing: House Do you presently have visiting nurse or other home services: No Alcohol intake: current Alcohol intake frequency: holidays/special occasions only Alcohol type: wine Patient Tobacco Use Status: Former Tobacco user Quit Date: 1993 Smoked: 5 years Smoked in Last 30 Days: No e-Cigarette/Vaping Use: Never Used Use of substances other than those prescribed or required for medical reasons: No Advance Directives: Yes Advance Directives on File: Yes Advance Directives Date on File: 06/29/23 Nutrition Risks: No Nutritional Risk service: No Current occupational status: retired Cognitive needs: No Hearing needs: No Vision needs: No Physical Exam ED Vital Signs: Vital Signs - 24 hr 08/29/23 16:12 08/29/23 16:54 08/29/23 17:40 Temperature 98.6 F Pulse Rate 107 H 101 H 98 Respiratory Rate 40 H 19 22 H Blood Pressure 128/49 L 139/42 L Pulse Oximetry 95 97 Oxygen Delivery Method Room Air Nasal Cannula Oxygen Flow Rate 2 08/29/23 17:59 Temperature Pulse Rate 98 Respiratory Rate 23 H Blood Pressure Pulse Oximetry Oxygen Delivery Method Oxygen Flow Rate BMI result Body Mass Index 34.7 Const General: cooperative, healthy appearing, comfortable and no acute distress Orientation/consciousness: oriented to person, oriented to place, oriented to time and patient oriented x3 [facility] Head: Yes normal to inspection, Yes No palpable skull fracture present, Yes normocephalic and Yes atraumatic Eyes General: appearance normal, both eyes and all related structures Neck Neck: Yes normal visual inspection, Yes full ROM, Yes no lymphadenopathy, Yes no meningeal signs, Yes trachea midline, Yes supple, No anterior neck swelling and No tender Chest Chest palpation & inspection: normal inspection of the chest and normal palpation of entire chest wall Resp Effort & Inspection: normal respiratory effort Auscultation: wheezes expiratory wheezes (audible) Cardio Jugular venous distension: no JVD Heart sounds: S1 normal heart sound present and S2 normal heart sound present GI Inspection: Yes normal to inspection Palpation (GI): Soft to palpation, not firm, nontender, no guarding and not rigid General: Yes no CVA tenderness Back/Spine/Pelvis Back: no CVA tenderness and No back tenderness Skin General skin exam: no rashes or lesions noted and elasticity normal Neuro General: oriented to person, oriented to place, oriented to time, patient oriented x3, gait normal, tone normal, moves all extremities, Normal light touch and pain sensation, no meningeal signs, no focal motor deficits, CN's II-XI intact bilaterally and normal sensation to monofilament Extrem Other: bilateral lower extremity negative for swelling, pitting edema, or calf tenderness General: Yes normal to inspection and Yes full ROM Psych Appearance: grossly normal, well kempt and not disheveled Medications Administered Generic Name Dose Route Start Last Admin Trade Name Freq PRN Reason Stop Dose Admin Albuterol/Ipratropium 3 ml 08/29/23 20:00 08/29/23 20:59 Albuterol/Iprat 2.5/0.5mg 3 Ml Ampul.Neb INHALE 3 ml RQ4H WHILE AWAKE LOU Administration Azithromycin 500 mg/ Sodium 250 mls @ 125 mls/hr 08/29/23 19:30 08/29/23 19:50 Chloride IV 125 mls/hr Q24H LOU Administration Insulin Glargine 40 unit 08/29/23 21:00 08/29/23 22:22 Insulin Glargine,Hum.Rec.Anlog 100 Unit/Ml 10 Ml Vial SUBCUT 40 unit BEDTIME LOU Administration Discontinued Medications Generic Name Dose Route Start Last Admin Trade Name Freq PRN Reason Stop Dose Admin Albuterol Sulfate 5 mg/ 7.5 mg 08/29/23 17:55 08/29/23 17:59 Albuterol Sulfate 2.5 mg INHALE 08/29/23 17:56 7.5 mg ONCE ONE Administration Apixaban 5 mg 08/29/23 19:33 08/29/23 19:49 Apixaban 5 Mg Tablet PO 08/29/23 19:34 5 mg ONCE ONE Administration Buspirone HCl 5 mg 08/29/23 19:33 08/29/23 19:49 Buspirone Hcl 5 Mg Tablet PO 08/29/23 19:34 5 mg ONCE ONE Administration Albuterol Sulfate 7.5 mg/ 0 mg 08/29/23 16:46 08/29/23 16:52 Albuterol/Ipratropium 3 ml INHALE 08/29/23 16:47 7.5 each ONCE ONE Administration Magnesium Sulfate 2 gm in 50 mls @ 25 mls/hr 08/29/23 16:24 08/29/23 19:02 Magnesium Sulfate/H2o IV 08/29/23 18:23 Infused ONCE ONE Infusion Sodium Chloride 1,000 mls @ 999 mls/hr 08/29/23 17:11 08/29/23 18:58 Ns IV 08/29/23 18:11 Infused .Q1H1M STA Infusion Methylprednisolone Sodium Succinate 125 mg 08/29/23 16:24 08/29/23 16:54 Methylprednisolone Sod Succ 125 Mg/2 Ml Vial IVPUSH 08/29/23 16:25 125 mg ONCE ONE Administration Medical Decision Making Medical Decision Making MDM Narrative: 72-year-old female history of diabetes, COPD, hypertension, PE, sleep apnea presents to ED for coughing, audible wheezing, green phlegm and shortness of breath. Symptoms started since yesterday. Patient denies any pleurisy, calf pain, or leg swelling. Patient received Solu-Medrol and DuoNeb in the EMS. Will order 10mg of abluterol, solumedrol, and magnesium. labs EKG ordered. 8:00pm: patient to be admitted for RSV induced COPD exacerbation. No need for antibiotics. 2 L O2 saturation 98% but patient still have audible wheezing. Case accepted by Dr. Garcia for admission. Differential Diagnosis Differential Diagnoses: The differential diagnosis associated with the presentation includes ( Heart failure COVID worker infarction, pneumonia, CHF, influenza, or) Admission/Observation Consideration of admission/observation: Escalation of care including admission/observation considered Consult Healthcare Provider Management of the patient was discussed with: Hospitalist ( Dr. Garcia) Lab Data MDM Lab Attestation statement: I reviewed the patient's lab results. 08/29/23 16:37 08/29/23 16:37 Labs: Lab Results 08/29/23 Range/Units 16:37 WBC 11.2 H (4.8-10.8) X10*3/uL RBC 4.30 D (4.20-5.50) X10*6/uL Hgb 11.9 L D (12.0-16.0) g/dl Hct 37.1 D (37.0-47.0) % MCV 86.3 (80.0-98.0) fL MCH 27.7 (27.0-33.0) pg MCHC 32.1 (31.0-35.0) g/dl RDW 15.6 (11.0-16.0) % Plt Count 356 D (160-400) X10*3/uL MPV 9.2 L (9.4-12.3) fL Immature Gran % (Auto) 1.0 H (0.0-0.4) % Neut % (Auto) 73.2 H (45-73) % Lymph % (Auto) 14.0 L (20-40) % [place] % (Auto) 8.4 (2-11) % Eos % (Auto) 3.0 (0-4) % Baso % (Auto) 0.4 (0-2) % Lymph # (Auto) 1.6 (1.2-4.9) X10*3/uL [place] # (Auto) 0.9 (0.1-1.2) X10*3/uL Eos # (Auto) 0.3 (0.0-0.4) X10*3/uL Baso # (Auto) 0.1 (0.0-0.2) X10*3/uL Abs Immat Gran (auto) 0.11 H (0.00-0.03) X10*3/uL Absolute Neuts (auto) 8.2 (2.0-8.3) x10*3/uL Absolute Nucleated RBC 0.000 (0.0-0.012) X10*3/uL Nucleated RBC % (auto) 0.0 (0.0-0.2) /100WBC PT 12.2 (11.1-13.3) SEC INR 1.0 (0.9-1.1) APTT 31.1 (26.0-36.4) SEC Sodium 140 (135-145) mmol/L Potassium 4.0 (3.3-5.1) mmol/L Chloride 104 (96-108) mmol/L Carbon Dioxide 23 (22-29) mmol/L Anion Gap 17 (12-20) BUN 36 H (9-16) mg/dL Creatinine 1.52 H (0.5-1.4) mg/dL Estim Creat Clear Calc 35.5 Estimated GFR 33 Random Glucose 259 H (60-115) mg/dL Lactic Acid 2.1 H* (0.5-2.0) mmol/L Calcium 9.2 (8.4-10.2) mg/dL Total Bilirubin 0.2 (0.0-1.0) mg/dL AST 13 (5-31) U/L ALT 16 (0-31) U/L Alkaline Phosphatase 89 (39-117) U/L Troponin I High Sens 14.9 D (<3.5-17.0) ng/L B-Natriuretic Peptide 106 H (<100) pg/mL Total Protein 6.8 (6.5-8.0) g/dL Albumin 3.8 (3.5-5.0) g/dL Influenza Type A (PCR) NEGATIVE (Negative) Influenza Type B (PCR) NEGATIVE (Negative) RSV RNA Qual (PCR) POSITIVE A (Negative) SARS-CoV-2 RNA (RT-PCR) NEGATIVE (Negative) Independent Interpretation I performed an independent interpretation of an: EKG ( negative STEMI. normal sinus thryghm) and Plain X-Ray Radiology Impression Discussion of test interpretation with radiology: I have reviewed the radiologist's reading. External Record Review External record reviewed: Other (other visits) Discharge Plan Discharge Clinical Impression: Respiratory syncytial virus (RSV) Patient Disposition: Admitted As Inpatient Interventions: Admission Worksheet (ED) Last Done: 08/29/23 23:43
[2023-08-29 16:47] LABS: Basophils Absolute Auto 0.1 X10*3/uL (0.0-0.2); Basophils Percent Auto 0.4 % (0-2); Eosinophils Absolute Auto 0.3 X10*3/uL (0.0-0.4); Hematocrit 37.1 % (37.0-47.0); Hemoglobin 11.9 g/dl (12.0-16.0); Imm Gran Abs Auto 0.11 X10*3/uL (0.00-0.03); Lymphocytes Absolute Auto 1.6 X10*3/uL (1.2-4.9); Mean Corpuscular HGB Conc 32.1 g/dl (31.0-35.0); Mean Corpuscular Hemoglobin 27.7 pg (27.0-33.0); Mean Corpuscular Volume 86.3 fL (80.0-98.0); Mean Platelet Volume 9.2 fL (9.4-12.3); Monocytes Absolute Auto 0.9 X10*3/uL (0.1-1.2); Monocytes Percent Auto 8.4 % (2-11); Neutrophils Absolute Auto 8.2 x10*3/uL (2.0-8.3); Neutrophils Percent Auto 73.2 % (45-73); Platelet Count 356 X10*3/uL (160-400); Red Cell Distribution Width 15.6 % (11.0-16.0); White Blood Count 11.2 X10*3/uL (4.8-10.8)
[2023-08-29 16:52] LABS: Prothrombin Time 12.2 SEC (11.1-13.3)
[2023-08-29] MEDS: Albuterol Sulfate 7.5 MG, Albuterol/Iprat 2.5/0.5MG 3 ML 3 ML INHALE (16:52)
[2023-08-29] MEDS: methylPREDNISolone Sod Succ 125 MG/2 ML VIAL IVPUSH (16:54)
[2023-08-29 16:55] LABS: Partial Thromboplastin Time 31.1 SEC (26.0-36.4)
[2023-08-29] MEDS: Magnesium Sulfate/H2O 2 GM/50 ML PIGGYBACK IV (16:55)
[2023-08-29 17:05] LABS: Alanine Aminotransferase 16 U/L (0-31); Albumin Level 3.8 g/dL (3.5-5.0); Alkaline Phosphatase 89 U/L (39-117); Anion Gap 17 (12-20); Aspartate Amino Transferase 13 U/L (5-31); Bilirubin Total 0.2 mg/dL (0.0-1.0); Blood Urea Nitrogen 36 mg/dL (9-16); Calcium 9.2 mg/dL (8.4-10.2); Carbon Dioxide 23 mmol/L (22-29); Chloride 104 mmol/L (96-108); Creatinine Clr Calc Pharmacy 35.5; Estimated Glomerular Filt Rate 33; Glucose Random 259 mg/dL (60-115); Sodium 140 mmol/L (135-145); Total Protein 6.8 g/dL (6.5-8.0)
[2023-08-29 17:08] LABS: B Type Natriuretic Peptide 106 pg/mL (<100); Lactic Acid 2.1 mmol/L (0.5-2.0)
[2023-08-29 17:12] LABS: Troponin-I High Sensitivity 14.9 ng/L (<3.5-17.0)
[2023-08-29] MEDS: 0.9 % Sodium Chloride 1,000 ML 999 ML IV (17:16)
[2023-08-29 17:22] LABS: Influenza A PCR NEGATIVE (Negative); Influenza B PCR NEGATIVE (Negative); Resp Syncy Virus RNA Qual PCR POSITIVE (Negative); SARS COV2 PCR INHOUSE NEGATIVE (Negative)
[2023-08-29] MEDS: Albuterol Sulfate 5 MG, Albuterol Sulfate (0.083%) 2.5 MG 7.5 MG INHALE (17:59)
[2023-08-29 18:42] LABS: Reflex Lactate? Lactic Acid Added
--- NOTE | 2023-08-29 19:22 | PM.IMHP ---
History of Present Illness Date of Service: 08/29/23 Chief Complaint: Dyspnea This is a 72-year-old female with pertinent history of insulin-dependent diabetes mellitus, CAD status post PCI, PE on Eliquis, essential hypertension, ALYSIA on CPAP, COPD not on home oxygen, mood disorder who presents to the emergency department for evaluation of dyspnea. Patient states she started having dyspnea on the day of presentation. It was progressive throughout the day and worse with ambulation. Also had associated cough with intermittent sputum production. Patient with significant wheezing throughout the day. No relief with home albuterol inhaler. Patient denies fever, chills, chest discomfort, palpitations, abdominal pain, changes in urinary or bowel habits. In the emergency department, patient's test positive for RSV and was requiring supplemental oxygen. Review of Systems Constitutional: Constitutional: Reports no additional constitutional complaints Cardiovascular: Cardiovascular: Reports dyspnea on exertion Respiratory: Respiratory: Reports cough, Reports dyspnea on exertion and Reports wheezing Gastrointestinal: Gastrointestinal: Reports no additional gastrointestinal complaints Genitourinary: Genitourinary: Reports no additional female genitourinary complaints Allergic/Immunologic: Allergic/Immunologic: Reports wheezing [facility] Medical History Paroxysmal atrial fibrillation Pulmonary embolism Obesity Dyslipidemia Hypertension 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 Father No problems noted. Brother Substance use disorder Brother Substance use disorder Surgical History History of carpal tunnel surgery History of cholecystectomy History of lobectomy of lung Status post tracheoplasty History of cardiac cath Social History Household Members: Family Household Members Other:: Lives with daughter and grandson Housing: House Do you presently have visiting nurse or other home services: No Alcohol intake: current Alcohol intake frequency: holidays/special occasions only Alcohol type: wine Patient Tobacco Use Status: Former Tobacco user Quit Date: 1993 Smoked: 5 years Smoked in Last 30 Days: No e-Cigarette/Vaping Use: Never Used Use of substances other than those prescribed or required for medical reasons: No Advance Directives: Yes Advance Directives on File: Yes Advance Directives Date on File: 06/29/23 service: No Current occupational status: retired Cognitive needs: No Hearing needs: No Vision needs: No Meds Allergies Allergy/AdvReac Type Severity Reaction Status Date / Time Latex, Natural Rubber Allergy Severe blisters Verified 06/25/23 11:54 Sulfa (Sulfonamide Allergy Mild ITCHING, Verified 06/25/23 11:54 Antibiotics) rash [SULFA (SULFONAMIDE ANTIBIOTICS)] nystatin Allergy Unknown rash Verified 06/25/23 11:54 isosorbide [From Imdur] AdvReac Unknown HEADACHES, Verified 06/25/23 11:54 headache tizanidine AdvReac Unknown weakness, Verified 06/25/23 11:54 Hellucination Home Medications Medication Instructions Recorded Confirmed Last Taken Type apixaban 5 mg tablet (Eliquis) 5 mg PO BID 09/30/21 08/17/23 08/11/23 History dulaglutide 1.5 mg/0.5 mL 1 mg subcut Q7D 02/05/23 08/17/23 Unknown History subcutaneous pen injector (Trulicity) albuterol sulfate 90 mcg/actuation 2 puff inhalation Q4H PRN 06/25/23 08/17/23 Unknown History aerosol inhaler (ProAir HFA) Shortness Of Breath buspirone 5 mg tablet 5 mg PO BID 08/11/23 08/17/23 08/11/23 History cholecalciferol (vitamin D3) 25 25 mcg PO DAILY 08/11/23 08/17/23 08/11/23 History mcg (1,000 unit) tablet insulin glargine 100 unit/mL (3 50 unit subcut BEDTIME 08/11/23 08/17/23 08/11/23 History mL) subcutaneous pen (Lantus Solostar U-100 Insulin) insulin lispro 100 unit/mL See Protocol subcut QIDACHS 08/11/23 08/17/23 08/11/23 History subcutaneous solution (Humalog U-100 Insulin) ipratropium 0.5 mg-albuterol 3 mg 3 ml inhalation BID PRN sob 08/11/23 08/17/23 Unknown History (2.5 mg base)/3 mL nebulization soln loratadine 10 mg tablet 10 mg PO DAILY 08/11/23 08/17/23 08/11/23 History melatonin 3 mg tablet 3 mg PO BEDTIME 08/11/23 08/17/23 08/11/23 History pantoprazole 40 mg tablet,delayed 40 mg PO BID 08/11/23 08/17/23 08/11/23 History release Physical Exam Vital Signs and Narrative: Vital Signs: Last Vital Signs Temp 98.6 F 08/29/23 16:12 Pulse 98 08/29/23 17:59 Resp 23 H 08/29/23 17:59 BP 139/42 L 08/29/23 17:40 Pulse Ox 97 08/29/23 17:40 O2 Del Method Nasal Cannula 08/29/23 17:40 O2 Flow Rate 2 08/29/23 17:40 BMI result Body Mass Index 34.7 Elderly female lying in bed in mild distress on supplemental oxygen Neck supple, no JVD Regular rate and rhythm, S1-S2 heard Bilateral wheezing with crackles Abdomen soft nontender, no guarding, no rigidity Patient is awake, alert and oriented to self, place, time and person ; no focal motor deficit Psych: Normal mood No pedal edema Results Labs 08/29/23 16:37 08/29/23 16:37 Labs: Laboratory Results - last 24 hr 08/29/23 16:37 MCV 86.3 MCH 27.7 MCHC 32.1 RDW 15.6 Plt Count 356 D MPV 9.2 L Immature Gran % (Auto) 1.0 H Neut % (Auto) 73.2 H Lymph % (Auto) 14.0 L [place] % (Auto) 8.4 Eos % (Auto) 3.0 Baso % (Auto) 0.4 Lymph # (Auto) 1.6 [place] # (Auto) 0.9 Eos # (Auto) 0.3 Baso # (Auto) 0.1 Abs Immat Gran (auto) 0.11 H Absolute Neuts (auto) 8.2 Absolute Nucleated RBC 0.000 Nucleated RBC % (auto) 0.0 PT 12.2 INR 1.0 APTT 31.1 Anion Gap 17 Estim Creat Clear Calc 35.5 Estimated GFR 33 Random Glucose 259 H Lactic Acid 2.1 H* Calcium 9.2 Total Bilirubin 0.2 AST 13 ALT 16 Alkaline Phosphatase 89 B-Natriuretic Peptide 106 H Total Protein 6.8 Albumin 3.8 Influenza Type A (PCR) NEGATIVE Influenza Type B (PCR) NEGATIVE RSV RNA Qual (PCR) POSITIVE A SARS-CoV-2 RNA (RT-PCR) NEGATIVE Imaging Radiologist's Impressions: Impressions Chest X-Ray 08/29/23 17:11 IMPRESSION: No acute intrathoracic disease. Question of a small subpulmonic effusion on the left. Assessment and Plan (1) Acute exacerbation of chronic obstructive pulmonary disease: Status: Acute Plan This is a 72-year-old female with pertinent history of insulin-dependent diabetes mellitus, CAD status post PCI, PE on Eliquis, essential hypertension, ALYSIA on CPAP, COPD not on home oxygen, mood disorder who presents to the emergency department for evaluation of dyspnea. #. Acute hypoxemic respiratory failure due to acute exacerbation of COPD in the setting of RSV: Will admit patient with supplemental oxygen. Scheduled and p.r.n. DuoNebs. Initiating systemic steroids. Also initiating azithromycin for pleiotropic effect. #. Insulin-dependent diabetes mellitus with hyperglycemia: Reducing home basal insulin. Initiating Accu-Cheks with sliding scale insulin #. Elevated creatinine, CKD: Monitor creatinine and urine output. #. CAD status post PCI: On high-intensity statin and antiplatelet agent #. Essential hypertension: Continue home antihypertensives #. ALYSIA: Continue CPAP at bedtime #. Mood disorder: Continue home mood stabilizers #. History of PE: On Eliquis DVT prophylaxis: Eliquis Full code Admit as inpatient and will require two night minimum hospital stay for supplemental oxygen, monitoring of respiratory status (as above), which is not possible in a lesser acute setting. Quality Stroke Does the patient have a stroke diagnosis?: No VTE Prior VTE?: No VTE Risk Level:: Medical - moderate - high VTE Device Contraindication: Treatment Not Indicated VTE Drug Contraindication: N/A - Med Ordered
[2023-08-29] MEDS: Apixaban 5 MG TABLET PO (19:49)
[2023-08-29] MEDS: busPIRone HCl 5 MG TABLET PO (19:49)
[2023-08-29] MEDS: Azithromycin 500 MG in 0.9 % Sodium Chloride 250 ML 125 MG IV (19:50)
--- NOTE | 2023-08-29 19:52 | PC.NURSE ---
this rn assumed care of pt. pt medicated per nov. pt denies pain and sob at this time. pt sating 98 on 2L nasal cannula at this time. vss.
[2023-08-29 20:46] LABS: ~Lactic Acid-LAB USE ONLY 3.3 mmol/L (0.5-2.0)
[2023-08-29] MEDS: Albuterol/Iprat 2.5/0.5MG 3 ML AMPUL.NEB INHALE (20:59)
[2023-08-29] MEDS: Insulin Glargine,Hum.rec.anlog 100 UNIT/ML 10 ML VIAL 40 UNIT SUBCUT (22:22)
[2023-08-29 22:24] LABS: Reflex Lactate? 2 Y
[2023-08-30] VITALS (10 sets, daily range): BP systolic 122–153; BP diastolic 50–93; PULSE 85–108; RESP 16–24; TEMP 36.5–36.9; O2SAT 94–98; BMI 35.3
[2023-08-30 00:52] LABS: ~Lactic Acid-LAB USE ONLY 7.3 mmol/L (0.5-2.0)
[2023-08-30] MEDS: 0.9 % Sodium Chloride 1,000 ML 999 ML IV (01:01)
[2023-08-30] MEDS: 0.9 % Sodium Chloride Flush 3 ML SYRINGE IVFLUSH ×4 (01:01→19:35)
[2023-08-30] MEDS: Melatonin 3 MG TABLET 6 MG PO (01:34)
[2023-08-30] MEDS: methylPREDNISolone Sod Succ 40 MG/ML VIAL IVPUSH ×2 (05:03→16:36)
[2023-08-30 06:34] LABS: Basophils Percent Auto 0.1 % (0-2); Hematocrit 33.2 % (37.0-47.0); Hemoglobin 10.2 g/dl (12.0-16.0); Imm Gran Abs Auto 0.11 X10*3/uL (0.00-0.03); Lymphocytes Absolute Auto 0.4 X10*3/uL (1.2-4.9); Lymphocytes Percent Auto 3.9 % (20-40); MANUAL DIFF FLAG SCAN; Mean Corpuscular HGB Conc 30.7 g/dl (31.0-35.0); Mean Corpuscular Hemoglobin 27.3 pg (27.0-33.0); Mean Platelet Volume 9.7 fL (9.4-12.3); Monocytes Absolute Auto 0.2 X10*3/uL (0.1-1.2); Monocytes Percent Auto 1.3 % (2-11); Neutrophils Absolute Auto 10.6 x10*3/uL (2.0-8.3); Neutrophils Percent Auto 93.7 % (45-73); Platelet Count 327 X10*3/uL (160-400); Red Blood Count 3.73 X10*6/uL (4.20-5.50); Red Cell Distribution Width 15.8 % (11.0-16.0); SCAN SMEAR FLAG 1; White Blood Count 11.3 X10*3/uL (4.8-10.8)
[2023-08-30 06:53] LABS: SLIDE REVIEW VERIFIED
[2023-08-30 07:10] LABS: Glucose, Whole Blood 355 mg/dL (60-115)
[2023-08-30 07:25] LABS: Anion Gap 19 (12-20); Blood Urea Nitrogen 37 mg/dL (9-16); Calcium 8.5 mg/dL (8.4-10.2); Carbon Dioxide 16 mmol/L (22-29); Chloride 106 mmol/L (96-108); Creatinine Clr Calc Pharmacy 34.8; Estimated Glomerular Filt Rate 32; Glucose Random 428 mg/dL (60-115); Potassium 4.1 mmol/L (3.3-5.1); Sodium 138 mmol/L (135-145)
[2023-08-30] MEDS: Insulin Lispro 100 UNIT/ML 3 ML VIAL SUBCUT ×4 (08:36→20:55)
[2023-08-30] MEDS: Albuterol/Iprat 2.5/0.5MG 3 ML AMPUL.NEB INHALE ×4 (09:06→18:58)
--- NOTE | 2023-08-30 09:34 | HO.PM.IMPN ---
Subjective Subjective Date of Service: 08/30/23 Interval History: Being followed for COPD exacerbation/RSV infection patient feeling better still complaining of shortness of breath with exertion and cough, denies fever, no chills, no nausea, no vomiting, no headache, no lightheadedness, or dizziness, no acute issues overnight. Review of Systems All other system reviewed and negative Physical Exam Vital Signs: Vital Signs: Last Vital Signs Temp 97.7 F 08/30/23 07:23 Pulse 107 H 08/30/23 09:08 Resp 18 08/30/23 09:08 BP 128/93 H 08/30/23 07:23 Pulse Ox 97 08/30/23 07:23 O2 Del Method Room Air 08/30/23 07:23 O2 Flow Rate 2 08/30/23 00:55 BMI result Body Mass Index 35.3 Const: Other: General awake alert x3, in no acute distress. Neck supple no JVD. CVS regular rate rhythm, Respiratory lungs bilateral expiratory wheeze, no respiratory distress, no use of accessory muscles no crackles Gastrointestinal abdomen soft, nontender, bowel sounds audible, no guarding , no rigidity. Extremities no edema. Neuro nonfocal Skin no rash Psych appropriate affect Objective Data Active Medications Acetaminophen (Acetaminophen 325 Mg Tablet) 650 mg PO Q6H PRN PRN Reason: Pain, Mild (Pain Scale 1-3) Albuterol/Ipratropium (Albuterol/Iprat 2.5/0.5mg 3 Ml Ampul.Neb) 3 ml INHALE RQ4H WHILE AWAKE [facility] Last Admin: 08/30/23 09:06 Dose: 3 ml Documented By: CANDACE Albuterol/Ipratropium (Albuterol/Iprat 2.5/0.5mg 3 Ml Ampul.Neb) 3 ml INHALE Q4H PRN PRN Reason: Wheezing Dextrose (Dextrose 50 % 25 Gm/50 Ml Syringe) 25 gm IVPUSH Q15M PRN; Protocol PRN Reason: per Hypoglycemia Standing Ord. Glucose (Glucose Gel 15 Gm Gel..Gram.) 15 gm PO Q15M PRN; Protocol PRN Reason: per Hypoglycemia Standing Ord. Azithromycin 500 mg/ Sodium (Chloride) 250 mls @ 125 mls/hr IV Q24H [facility] Last Infusion: 08/30/23 01:00 Dose: Infused Documented By: CHAYA Insulin Glargine (Insulin Glargine,Hum.Rec.Anlog 100 Unit/Ml 10 Ml Vial) 40 unit SUBCUT BEDTIME [facility] Last Admin: 08/29/23 22:22 Dose: 40 unit Documented By: ISSAC Comments: no barcodes in pyxis Insulin Human Lispro (Insulin Lispro 100 Unit/Ml 3 Ml Vial) 0 unit SUBCUT QIDACHS [facility]; Protocol Last Admin: 08/30/23 08:36 Dose: 10 unit Documented By: LUIS F Melatonin (Melatonin 3 Mg Tablet) 6 mg PO BEDTIME PRN PRN Reason: Insomnia Last Admin: 08/30/23 01:34 Dose: 6 mg Documented By: CHAYA Methylprednisolone Sodium Succinate (Methylprednisolone Sod Succ 40 Mg/Ml Vial) 40 mg IVPUSH Q12H [facility] Last Admin: 08/30/23 05:03 Dose: 40 mg Documented By: CHAYA Ondansetron HCl (Ondansetron Hcl 4 Mg/2 Ml Vial) 4 mg IVPUSH Q8H PRN PRN Reason: Nausea and Vomiting Sodium Chloride (0.9 % Sodium Chloride Flush 3 Ml Syringe) 3 ml IVFLUSH QSHIFT [facility] Last Admin: 08/30/23 08:36 Dose: 3 ml Documented By: LUIS F Labs 08/30/23 06:16 08/30/23 06:16 Labs: Laboratory Results - last 24 hr 08/29/23 08/29/23 08/30/23 16:37 20:22 00:18 MCV 86.3 MCH 27.7 MCHC 32.1 RDW 15.6 Plt Count 356 D MPV 9.2 L Immature Gran % (Auto) 1.0 H Neut % (Auto) 73.2 H Lymph % (Auto) 14.0 L [place] % (Auto) 8.4 Eos % (Auto) 3.0 Baso % (Auto) 0.4 Lymph # (Auto) 1.6 [place] # (Auto) 0.9 Eos # (Auto) 0.3 Baso # (Auto) 0.1 Abs Immat Gran (auto) 0.11 H Absolute Neuts (auto) 8.2 Absolute Nucleated RBC 0.000 Nucleated RBC % (auto) 0.0 Smear Tech's Comments PT 12.2 INR 1.0 APTT 31.1 Anion Gap 17 Estim Creat Clear Calc 35.5 Estimated GFR 33 POC Glucose Random Glucose 259 H Lactic Acid 2.1 H* Lactic Acid F/U @ 2Hr 3.3 H* Lactic Acid F/U @ 4Hr 7.3 H* Calcium 9.2 Total Bilirubin 0.2 AST 13 ALT 16 Alkaline Phosphatase 89 B-Natriuretic Peptide 106 H Total Protein 6.8 Albumin 3.8 Influenza Type A (PCR) NEGATIVE Influenza Type B (PCR) NEGATIVE RSV RNA Qual (PCR) POSITIVE A SARS-CoV-2 RNA (RT-PCR) NEGATIVE 08/30/23 08/30/23 06:16 07:02 MCV 89.0 MCH 27.3 MCHC 30.7 L RDW 15.8 Plt Count 327 MPV 9.7 Immature Gran % (Auto) 1.0 H Neut % (Auto) 93.7 H Lymph % (Auto) 3.9 L [place] % (Auto) 1.3 L Eos % (Auto) 0.0 Baso % (Auto) 0.1 Lymph # (Auto) 0.4 L [place] # (Auto) 0.2 Eos # (Auto) 0.0 Baso # (Auto) 0.0 Abs Immat Gran (auto) 0.11 H Absolute Neuts (auto) 10.6 H Absolute Nucleated RBC 0.000 Nucleated RBC % (auto) 0.0 Smear Tech's Comments VERIFIED PT INR APTT Anion Gap 19 Estim Creat Clear Calc 34.8 Estimated GFR 32 POC Glucose 355 H* Random Glucose 428 H* Lactic Acid Lactic Acid F/U @ 2Hr Lactic Acid F/U @ 4Hr Calcium 8.5 D Total Bilirubin AST ALT Alkaline Phosphatase B-Natriuretic Peptide Total Protein Albumin Influenza Type A (PCR) Influenza Type B (PCR) RSV RNA Qual (PCR) SARS-CoV-2 RNA (RT-PCR) Assessment and Plan (1) Respiratory syncytial virus (RSV): Status: Acute (2) Acute exacerbation of chronic obstructive pulmonary disease: Status: Acute Plan 72-year-old female with pertinent history of insulin-dependent diabetes mellitus, CAD status post PCI, PE on Eliquis, essential hypertension, ALYSIA on CPAP, COPD not on home oxygen, mood disorder who presents to the emergency department for evaluation of dyspnea. #. Acute hypoxemic respiratory failure due to acute exacerbation of COPD in the setting of RSV: Feeling better continue Scheduled and p.r.n. DuoNebs, iv steroids and azithromycin for pleiotropic effect. Wean oxygen as tolerated #. Insulin-dependent diabetes mellitus with hyperglycemia: Elevated blood sugars likely due to steroids continue Lantus, Accu-Cheks with sliding scale insulin #. Acute on chronic kidney disease stage 3, likely due to dehydration will hold Lasix and lisinopril follow BMP, avoid hypotension #. CAD status post PCI: On high-intensity statin and antiplatelet agent. #. Essential hypertension: Continue home antihypertensives metoprolol 50 b.i.d., Cardizem 300 daily hold lisinopril as above #. ALYSIA: Continue CPAP at bedtime #. Mood disorder: Continue home mood stabilizers #. History of PE: On Eliquis DVT prophylaxis: Eliquis Full code Patient will need continued inpatient hospitalization for supplemental oxygen, monitoring of respiratory status (as above), which is not possible in a lesser acute setting. Quality Stroke Does the patient have a stroke diagnosis?: No VTE Prior VTE?: No VTE Risk Level:: Medical - moderate - high VTE Device Contraindication: Treatment Not Indicated VTE Drug Contraindication: N/A - Med Ordered
[2023-08-30] MEDS: Omeprazole 40 MG CAPSULE.DR PO ×2 (10:19→16:36)
[2023-08-30] MEDS: Metoprolol Tartrate 50 MG TABLET PO ×2 (10:19→20:55)
[2023-08-30 11:09] LABS: Glucose, Whole Blood 472 mg/dL (60-115)
--- NOTE | 2023-08-30 12:10 | MHC.CM.PN ---
IMM 08/30/23 FEMALE 72 DX RSV+ COPD EXACERBATION. She lives with her dtr and grandchild. Pt is independent with all functional mobility. She does not use an A.D. or home oxygen. She has equipment in the house but does not need to use it. She was recently [place] [facility] [place] [facility]. DP resume [facility] dtr will transport home.
[2023-08-30] MEDS: Dicyclomine HCl 10 MG CAPSULE PO ×2 (12:19→16:36)
[2023-08-30 16:13] LABS: Glucose, Whole Blood 297 mg/dL (60-115)
[2023-08-30] MEDS: Azithromycin 500 MG in 0.9 % Sodium Chloride 250 ML 125 MG IV (19:35)
--- NOTE | 2023-08-30 19:46 | PC.NURSE ---
Addendum entered by Manda Guidry RN 08/30/23 19:52: pt lungs sounds still wheezing. good mood, feel better. will continue to monitor. Original Note: pt c/o nightmare seeing a men, I don't feel good, I'm afraid and I'm very anxious, very scare pt mentions afew times of anxious and trouble. pt keep talking about something it doesn't make sense. will continue to monitor.
--- NOTE | 2023-08-30 20:05 | ECG_ITS ---
Test Reason : CP Blood Pressure : / mmHG Vent. Rate : 114 BPM Atrial Rate : 114 BPM P-R Int : 178 ms QRS Dur : 080 ms QT Int : 334 ms P-R-T Axes : 039 044 042 degrees QTc Int : 460 ms Sinus tachycardia with Premature atrial complexes Nonspecific ST and T wave abnormality Borderline ECG No previous ECGs available Referred By: Rigoberto Benítez Electronically Signed By:SCOTTIE MONROY
[2023-08-30] MEDS: guaiFEN/Codeine SF 200/20/10ML 10 ML LIQUID PO (20:23)
[2023-08-30 20:36] LABS: Glucose, Whole Blood 368 mg/dL (60-115)
[2023-08-30] MEDS: Apixaban 5 MG TABLET PO (20:54)
[2023-08-30] MEDS: polyethylene glycoL 3350 17 GM POWD.PACK PO (20:54)
[2023-08-30] MEDS: Atorvastatin Calcium 80 MG TABLET PO (20:54)
[2023-08-30] MEDS: busPIRone HCl 5 MG TABLET PO (20:54)
[2023-08-30] MEDS: Melatonin 3 MG TABLET PO (20:54)
[2023-08-30] MEDS: Insulin Glargine,Hum.rec.anlog 100 UNIT/ML 10 ML VIAL 40 UNIT SUBCUT (20:55)
[2023-08-30 21:20] LABS: Lactic Acid 3.9 mmol/L (0.5-2.0)
[2023-08-30 21:30] LABS: Troponin-I High Sensitivity 148.8 ng/L (<3.5-17.0)
[2023-08-30] MEDS: Morphine Sulfate 2 MG/ML CARTRIDGE IVPUSH (21:58)
[2023-08-30 22:09] LABS: D Dimer High Sensitivity < 150 NG/ML
--- NOTE | 2023-08-30 22:17 | PM.EVENT ---
Event Note Date of Service: 08/30/23 Event Note: Called for patient c/o chest pain that she describes as chest heaviness. She has significant cardiac history having suffered a heart attack / NSTEMI in Jun 2023 and is s/p PCI with ARMANI to OM2 on 06/29/2023 Troponin at admission on 08/29 was normal at 14.9 ng/L and repeat Troponin tonight with CP was 148.8 ng/L EKG showed NSR with no ischemic changes Given presentation, she rules in for NSTEMI. Ass/Plan 1. NSTEMI Transfer to Telemetry Continue Plavix and Eliquis (will hold off aspirin and heparin tonight) Continue Metoprolol, Atorvastatin PRN sublingual Nitro for chest pain (morphine for severe CP not responding to SL nitro) Consult Cardiology for further evaluation Repeat Troponin I in AM Time Spent With Patient Time: Total time managing care of this patient today ____ minutes.
[2023-08-30 22:58] LABS: Reflex Lactate? Lactic Acid Added
[2023-08-31] VITALS (12 sets, daily range): BP systolic 110–148; BP diastolic 42–64; PULSE 78–100; RESP 16–18; TEMP 35.9–37; O2SAT 65–99
[2023-08-31] MEDS: Nitroglycerin 0.4 MG TAB.SUBL SUBLINGUAL (00:15)
[2023-08-31] MEDS: Morphine Sulfate 2 MG/ML CARTRIDGE IVPUSH ×2 (00:36→19:47)
[2023-08-31 00:37] LABS: ~Lactic Acid-LAB USE ONLY 2.4 mmol/L (0.5-2.0)
--- NOTE | 2023-08-31 01:17 | PC.NURSE ---
pt reported chest pain 5/10 w/pressure and heaviness, dr. Wing notified order ECG, labs, and meds. first given morphine. pt states that no pain at the reassessment time. hour later chest pain 4/10 came back. notified again. new order lab and meds. given by emar, after 5 min. bp went down to 98/49. still in pain 4/10. asked doc. should I give 2nd dose of nytro or not? doc told me give morphine. given by Emar. after morphine 2mg, solve the problem of pain 0/10. pt bp 110/43 HR 87, RR 16 at this time. pt wear cpap. O2 sat 98%. doc wrote note to [place] [facility] nursing correspondence section supervisor aware of and charge nurse. but this time no bed available on [facility] unit. pt has telemonitor on. will continue to monitor.
[2023-08-31 02:22] LABS: Reflex Lactate? 2 Y
--- NOTE | 2023-08-31 02:25 | PC.NURSE ---
pt stay in NSTEMI, pt c/o chest pain twice. so, at this time pt stay in bed with purewick in place. pt agreed with that. will continue to monitor any changes.
[2023-08-31 02:59] LABS: ~Lactic Acid-LAB USE ONLY 2.3 mmol/L (0.5-2.0)
--- NOTE | 2023-08-31 03:01 | MHC.PIE ---
p; critical lab lactic acid 2.3. i; dr ross notified e; will cont to monitor
[2023-08-31 03:11] LABS: Troponin-I High Sensitivity 201.7 ng/L (<3.5-17.0)
[2023-08-31] MEDS: Omeprazole 40 MG CAPSULE.DR PO ×2 (05:44→16:25)
[2023-08-31] MEDS: methylPREDNISolone Sod Succ 40 MG/ML VIAL IVPUSH ×2 (05:44→16:25)
[2023-08-31 07:11] LABS: Troponin-I High Sensitivity 227.6 ng/L (<3.5-17.0)
[2023-08-31 07:25] LABS: Glucose, Whole Blood 184 mg/dL (60-115)
[2023-08-31] MEDS: Albuterol/Iprat 2.5/0.5MG 3 ML AMPUL.NEB INHALE ×3 (08:12→15:24)
[2023-08-31] MEDS: Escitalopram Oxalate 10 MG TABLET PO (08:17)
[2023-08-31] MEDS: Clopidogrel Bisulfate 75 MG TABLET PO (08:17)
[2023-08-31] MEDS: Apixaban 5 MG TABLET PO ×2 (08:17→19:42)
[2023-08-31] MEDS: polyethylene glycoL 3350 17 GM POWD.PACK PO ×2 (08:17→19:48)
[2023-08-31] MEDS: Metoprolol Tartrate 50 MG TABLET PO ×2 (08:18→19:42)
[2023-08-31] MEDS: Empagliflozin 25 MG TABLET PO (08:18)
[2023-08-31] MEDS: busPIRone HCl 5 MG TABLET PO ×2 (08:18→19:42)
[2023-08-31] MEDS: dilTIAZem HCL CD 300 MG CAP.ER.24H PO (08:18)
[2023-08-31] MEDS: Insulin Lispro 100 UNIT/ML 3 ML VIAL SUBCUT ×4 (08:18→22:15)
[2023-08-31] MEDS: Cholecalciferol (Vitamin D3) 25 MCG TABLET PO (08:18)
[2023-08-31] MEDS: Dicyclomine HCl 10 MG CAPSULE PO ×3 (08:18→16:25)
[2023-08-31] MEDS: Loratadine 10 MG TABLET PO (08:18)
[2023-08-31] MEDS: 0.9 % Sodium Chloride Flush 3 ML SYRINGE IVFLUSH ×3 (08:19→19:42)
--- NOTE | 2023-08-31 09:29 | P.CONCA_ITS ---
History of Present Illness History of Present Illness Date of Service: 08/31/23 Chief complaint: Dyspnea Narrative: This is a cardiology consultation regarding elevated troponins. Patient has many comorbidities and was seen in consultation few months back. At that time, she was diagnosed with NSTEMI and underwent cardiac catheterization showing mid circumflex 99% stenosis, culprit lesion. Underwent PCI. Otherwise mostly unremarkable coronaries without any significant disease. Current admissions because of some shortness of breath and cough and intermittent sputum production. She also felt some wheezing. Pleuritic type chest pain. Then she came to ER and got diagnosed with RSV and was requiring supplemental oxygen. Admitted for further care. Currently, she states she is feeling better. Review of Systems 2 Review of Systems: Yes all other systems are reviewed and are negative Constitutional: Constitutional: Reports as per HPI and Reports no additional constitutional complaints Eyes: Eyes: Reports as per HPI and Denies no additional eye complaints ENT: Denies system reviewed and no additional complaints, except as documented and Reports as per HPI Cardiovascular: Cardiovascular: Reports as per HPI, Reports no additional cardiovascular complaints, Denies acrocyanosis, Denies cool extremities, Denies chest pain, Denies leg edema, Denies lightheadedness, Denies palpitations and Reports dyspnea Respiratory: Respiratory: Reports as per HPI, Denies no additional respiratory complaints, Reports pain on inspiration and Reports dyspnea Gastrointestinal: Gastrointestinal: Reports as per HPI and Denies no additional gastrointestinal complaints Genitourinary: Genitourinary: Reports as per HPI Musculoskeletal: Musculoskeletal: Reports no additional musculoskeletal complaints and Reports as per HPI Integumentary/Breasts: Skin/Breast: Reports system reviewed and no additional complaints, except as docu Neurologic: Reports system reviewed and no additional complaints, except as documented and Reports as per HPI Psychiatric: Psychiatric: Reports no additional psychiatric complaints and Reports as per HPI Endocrine: Endocrine: Reports no additional endocrine complaints, Reports as per HPI and Denies palpitations Hematologic/Lymphatic: Hematologic/Lymphatic: Reports no additional hematologic/lymphatic complaints and Reports as per HPI Allergic/Immunologic: Allergic/Immunologic: Reports no additional allergic/immunologic complaints and Reports as per HPI [facility] Past Medical History Medical History Paroxysmal atrial fibrillation Pulmonary embolism Obesity Dyslipidemia Hypertension CAD (coronary artery disease) 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 Father No problems noted. Brother Substance use disorder Brother Substance use disorder Surgical History Surgical History History of carpal tunnel surgery History of cholecystectomy History of lobectomy of lung Status post tracheoplasty History of cardiac cath Social History Social History Household Members: Family Household Members Other:: 2 Housing: House Do you presently have visiting nurse or other home services: No (it's coming soon) Alcohol intake: current Alcohol intake frequency: holidays/special occasions only Alcohol type: wine Patient Tobacco Use Status: Former Tobacco user Quit Date: 1993 Tobacco use type: Cigarette Cigarettes Per Day: 10 Years Smoked: 3 Smoked in Last 30 Days: No e-Cigarette/Vaping Use: Never Used Patient Interested in Nicotine Replacement: No Patient Given Instructions on How to Stop Smoking: No Second Hand Smoke Exposure: No Use of substances other than those prescribed or required for medical reasons: No Currently Displaying Signs/Symptoms of Drug Intoxication Withdrawal: No Any prior treatment program specific to substance use: No Have you been hit, kicked, punched, or otherwise hurt by someone within the past year? If so, by whom?: No Do you feel safe in your current relationship?: No Current Relationship Is there a partner from a previous relationship who is making you feel unsafe now?: No Are you made to feel afraid or neglected: No Advance Directives: Yes Advance Directives on File: Yes Advance Directives Date on File: 06/29/23 Do you have thoughts of harming others: None Do you have a plan to hurt others: No Plan Recently lost weight without trying: No Eating poorly because of decreased appetite: No Nutrition Risks: No Nutritional Risk Patient : No : No Poor oral hygiene: No service: No Current occupational status: retired Cognitive needs: No Hearing needs: No Vision needs: No Meds Allergies Allergy/AdvReac Type Severity Reaction Status Date / Time Latex, Natural Rubber Allergy Severe blisters Verified 06/25/23 11:54 Sulfa (Sulfonamide Allergy Mild ITCHING, Verified 06/25/23 11:54 Antibiotics) rash [SULFA (SULFONAMIDE ANTIBIOTICS)] nystatin Allergy Unknown rash Verified 06/25/23 11:54 isosorbide [From Imdur] AdvReac Unknown HEADACHES, Verified 06/25/23 11:54 headache tizanidine AdvReac Unknown weakness, Verified 06/25/23 11:54 Hellucination Active Medications: Current Medications Acetaminophen (Acetaminophen 325 Mg Tablet) 650 mg PO Q6H PRN PRN Reason: Pain, Mild (Pain Scale 1-3) Albuterol/Ipratropium (Albuterol/Iprat 2.5/0.5mg 3 Ml Ampul.Neb) 3 ml INHALE RQ4H WHILE AWAKE [facility] Last Admin: 08/31/23 08:12 Dose: 3 ml Albuterol/Ipratropium (Albuterol/Iprat 2.5/0.5mg 3 Ml Ampul.Neb) 3 ml INHALE Q4H PRN PRN Reason: Wheezing Apixaban (Apixaban 5 Mg Tablet) 5 mg PO BID [facility] Last Admin: 08/31/23 08:17 Dose: 5 mg Atorvastatin Calcium (Atorvastatin Calcium 80 Mg Tablet) 80 mg PO BEDTIME [facility] Last Admin: 08/30/23 20:54 Dose: 80 mg Buspirone HCl (Buspirone Hcl 5 Mg Tablet) 5 mg PO BID [facility] Last Admin: 08/31/23 08:18 Dose: 5 mg Clopidogrel Bisulfate (Clopidogrel Bisulfate 75 Mg Tablet) 75 mg PO DAILY [facility] Last Admin: 08/31/23 08:17 Dose: 75 mg Dextrose (Dextrose 50 % 25 Gm/50 Ml Syringe) 25 gm IVPUSH Q15M PRN; Protocol PRN Reason: per Hypoglycemia Standing Ord. Dicyclomine HCl (Dicyclomine Hcl 10 Mg Capsule) 10 mg PO TIDAC [facility] Last Admin: 08/31/23 08:18 Dose: 10 mg Diltiazem HCl (Diltiazem Hcl Cd 300 Mg Cap.Er.24h) 300 mg PO DAILY [facility]; Protocol Last Admin: 08/31/23 08:18 Dose: 300 mg Docusate Sodium (Docusate Sodium 100 Mg Capsule) 100 mg PO BID PRN PRN Reason: Constipation Empagliflozin (Empagliflozin 25 Mg Tablet) 25 mg PO DAILY [facility] Last Admin: 08/31/23 08:18 Dose: 25 mg Escitalopram Oxalate (Escitalopram Oxalate 10 Mg Tablet) 10 mg PO DAILY [facility] Last Admin: 08/31/23 08:17 Dose: 10 mg Glucose (Glucose Gel 15 Gm Gel..Gram.) 15 gm PO Q15M PRN; Protocol PRN Reason: per Hypoglycemia Standing Ord. Guaifenesin/Codeine Phosphate (Guaifen/Codeine Sf 200/20/10ml 10 Ml Liquid) 10 ml PO Q6H PRN PRN Reason: cough Last Admin: 08/30/23 20:23 Dose: 10 ml Azithromycin 500 mg/ Sodium (Chloride) 250 mls @ 125 mls/hr IV Q24H [facility] Last Infusion: 08/30/23 21:47 Dose: Infused Insulin Glargine (Insulin Glargine,Hum.Rec.Anlog 100 Unit/Ml 10 Ml Vial) 40 unit SUBCUT BEDTIME [facility] Last Admin: 08/30/23 20:55 Dose: 40 unit Insulin Human Lispro (Insulin Lispro 100 Unit/Ml 3 Ml Vial) 0 unit SUBCUT QIDACHS [facility]; Protocol Last Admin: 08/31/23 08:18 Dose: 4 unit Loratadine (Loratadine 10 Mg Tablet) 10 mg PO DAILY [facility] Last Admin: 08/31/23 08:18 Dose: 10 mg Melatonin (Melatonin 3 Mg Tablet) 6 mg PO BEDTIME PRN PRN Reason: Insomnia Last Admin: 08/30/23 01:34 Dose: 6 mg Melatonin (Melatonin 3 Mg Tablet) 3 mg PO BEDTIME [facility] Last Admin: 08/30/23 20:54 Dose: 3 mg Methylprednisolone Sodium Succinate (Methylprednisolone Sod Succ 40 Mg/Ml Vial) 40 mg IVPUSH Q12H [facility] Last Admin: 08/31/23 05:44 Dose: 40 mg Metoprolol Tartrate (Metoprolol Tartrate 50 Mg Tablet) 50 mg PO BID [facility]; Protocol Last Admin: 08/31/23 08:18 Dose: 50 mg Morphine Sulfate (Morphine Sulfate 2 Mg/Ml Cartridge) 2 mg IVPUSH Q2H PRN; Protocol PRN Reason: Chest Pain Last Admin: 08/31/23 00:36 Dose: 2 mg Nitroglycerin (Nitroglycerin 0.4 Mg Tab.Subl) 0.4 mg SUBLINGUAL Q5MX3 PRN PRN Reason: Chest Pain Last Admin: 08/31/23 00:15 Dose: 0.4 mg Omeprazole (Omeprazole 40 Mg Capsule.Dr) 40 mg PO BID@0630,1630 [facility] Last Admin: 08/31/23 05:44 Dose: 40 mg Ondansetron HCl (Ondansetron Hcl 4 Mg/2 Ml Vial) 4 mg IVPUSH Q8H PRN PRN Reason: Nausea and Vomiting Polyethylene Glycol (Polyethylene Glycol 3350 17 Gm Powd.Pack) 17 gm PO BID [facility] Last Admin: 08/31/23 08:17 Dose: 17 gm Sodium Chloride (0.9 % Sodium Chloride Flush 3 Ml Syringe) 3 ml IVFLUSH QSHIFT [facility] Last Admin: 08/31/23 08:19 Dose: 3 ml Vitamin D (Cholecalciferol (Vitamin D3) 25 Mcg Tablet) 25 mcg PO DAILY [facility] Last Admin: 08/31/23 08:18 Dose: 25 mcg Home Medications Medication Instructions Recorded Confirmed Last Taken Type apixaban 5 mg tablet (Eliquis) 5 mg PO BID 09/30/21 08/30/23 08/11/23 History dulaglutide 1.5 mg/0.5 mL 1 mg subcut Q7D 02/05/23 08/30/23 Unknown History subcutaneous pen injector (Trulicity) albuterol sulfate 90 mcg/actuation 2 puff inhalation Q4H PRN 06/25/23 08/30/23 Unknown History aerosol inhaler (ProAir HFA) Shortness Of Breath buspirone 5 mg tablet 5 mg PO BID 08/11/23 08/30/23 08/11/23 History cholecalciferol (vitamin D3) 25 25 mcg PO DAILY 08/11/23 08/30/23 08/11/23 History mcg (1,000 unit) tablet insulin glargine 100 unit/mL (3 50 unit subcut BEDTIME 08/11/23 08/30/23 08/11/23 History mL) subcutaneous pen (Lantus Solostar U-100 Insulin) insulin lispro 100 unit/mL See Protocol subcut QIDACHS 08/11/23 08/30/23 08/11/23 History subcutaneous solution (Humalog U-100 Insulin) ipratropium 0.5 mg-albuterol 3 mg 3 ml inhalation BID PRN sob 08/11/23 08/30/23 Unknown History (2.5 mg base)/3 mL nebulization soln loratadine 10 mg tablet 10 mg PO DAILY 08/11/23 08/30/23 08/11/23 History melatonin 3 mg tablet 3 mg PO BEDTIME 08/11/23 08/30/23 08/11/23 History pantoprazole 40 mg tablet,delayed 40 mg PO BID 08/11/23 08/30/23 08/11/23 History release Physical Exam 2 Vital Signs: Vital Signs: Last Vital Signs Temp 98.4 F 08/31/23 07:18 Pulse 95 08/31/23 07:18 Resp 18 08/31/23 08:14 BP 119/48 L 08/31/23 07:18 Pulse Ox 94 08/31/23 07:18 O2 Del Method Nasal Cannula 08/31/23 07:18 O2 Flow Rate 2 08/31/23 07:18 BMI result Body Mass Index 35.3 Const: General: comfortable and no acute distress O rientation/consciousness: patient oriented x3 HEENT: Other: Unremarkable Head: Yes normal to inspection Neck: Neck: Yes normal visual inspection Chest: Chest palpation & inspection: normal inspection of the chest Resp: Auscultation: crackles, wheezes and diminished lung sounds Cardio: Palpation: normal PMI Heart sounds: S1 normal heart sound present, S2 normal heart sound present, no gallops, Murmur heart sound present systolic II/ and at the right sternal border and no rubs GI: Palpation (GI): Soft to palpation Back/Spine/Pelvis: Other: unremarkable Skin: General skin exam: no rashes or lesions noted Neuro: General: patient oriented x3 Extrem: General: Yes normal to inspection Psych: Mental Status: mental status grossly normal Objective Labs and Meds 08/30/23 06:16 08/30/23 06:16 Lab results: Laboratory Results - last 24 hr 08/30/23 08/30/23 08/30/23 11:05 16:09 20:32 Hold Purple Top D-Dimer High Sensitivty POC Glucose 472 H* 297 H 368 H* Lactic Acid Lactic Acid F/U @ 2Hr Lactic Acid F/U @ 4Hr Troponin I High Sens 08/30/23 08/30/23 08/31/23 20:54 21:56 00:18 Hold Purple Top D-Dimer High Sensitivty < 150 POC Glucose Lactic Acid 3.9 H* Lactic Acid F/U @ 2Hr 2.4 H* Lactic Acid F/U @ 4Hr Troponin I High Sens 148.8 H* D 08/31/23 08/31/23 08/31/23 02:37 06:32 07:17 Hold Purple Top SEE NOTE D-Dimer High Sensitivty POC Glucose 184 H Lactic Acid Lactic Acid F/U @ 2Hr Lactic Acid F/U @ 4Hr 2.3 H* Troponin I High Sens 201.7 H* 227.6 H* ECG Interpretation: EKG with sinus rhythm at 97/Min; no significant ST-T changes and otherwise unremarkable. Normal AR and corrected QT. Assessment and Plan (1) Respiratory syncytial virus (RSV): Status: Acute (2) Non-ST elevation ME (NSTEMI): Status: Acute (3) CKD stage 3 due to type 2 diabetes mellitus: Status: Acute (4) CAD (coronary artery disease): Status: Acute Plan Troponin levels are 156, 267 and 106. There is slight increase and decrease. However, creatinine is also higher than baseline at 1.57. Lactic acid levels are increased. Blood sugar levels are high at 428. Cardiac BNP 106. RSV positive. Chest x-ray with no acute disease. Question of small subpulmonic effusion on the left side. Cardiac catheterization from June had shown circumflex 99% stenosis, status post PCI. Lad/RCA shows minimal irregularities only. Normal left main. Echocardiogram from June 13 LVEF of 60%. Severe LVH. Moderate diastolic dysfunction. Mild aortic stenosis. Overall, demand related troponin leak/type 2 event related to RSV infection. In this case, mainly treat the underlying issue. She is already on anticoagulation with Eliquis and also on Plavix. She is on high-dose statins beta-blockers and diltiazem. Overall, no further med changes at this time. Discussed with . Procedures Date of Service Date of Service: 08/31/23
[2023-08-31 09:48] LABS: Troponin-I High Sensitivity 213.5 ng/L (<3.5-17.0)
[2023-08-31 10:21] LABS: Hematocrit 31.6 % (37.0-47.0); Mean Corpuscular HGB Conc 31.6 g/dl (31.0-35.0); Mean Corpuscular Hemoglobin 28.1 pg (27.0-33.0); Mean Corpuscular Volume 88.8 fL (80.0-98.0); Mean Platelet Volume 9.6 fL (9.4-12.3); Platelet Count 342 X10*3/uL (160-400); Red Blood Count 3.56 X10*6/uL (4.20-5.50); Red Cell Distribution Width 16.1 % (11.0-16.0); White Blood Count 24.4 X10*3/uL (4.8-10.8)
[2023-08-31 10:48] LABS: Anion Gap 14 (12-20); Blood Urea Nitrogen 36 mg/dL (9-16); Calcium 8.8 mg/dL (8.4-10.2); Carbon Dioxide 22 mmol/L (22-29); Chloride 105 mmol/L (96-108); Creatinine Clr Calc Pharmacy 43.7; Estimated Glomerular Filt Rate 42; Glucose Random 300 mg/dL (60-115); Potassium 4.5 mmol/L (3.3-5.1); Sodium 136 mmol/L (135-145)
[2023-08-31 11:13] LABS: Glucose, Whole Blood 211 mg/dL (60-115)
--- NOTE | 2023-08-31 13:21 | P.PNIM_ITS ---
Subjective Subjective Date of Service: 08/31/23 Interval History: Events from last night noted patient had an episode of chest discomfort, noted to have elevated troponins, EKG showed no acute ischemia, patient denies chest pain this morning oxygenation is stable complaining of shortness of breath with activity, no lightheadedness, no dizziness, no nausea, no vomiting, no abdominal pain tolerating diet. Review of Systems All other system reviewed and negative Physical Exam 2 Vital Signs: Vital Signs: Last Vital Signs Temp 98.4 F 08/31/23 07:18 Pulse 95 08/31/23 07:18 Resp 18 08/31/23 11:36 BP 119/48 L 08/31/23 07:18 Pulse Ox 94 08/31/23 07:18 O2 Del Method Nasal Cannula 08/31/23 07:18 O2 Flow Rate 2 08/31/23 07:18 BMI result Body Mass Index 35.3 Const: Other: General awake alert x3, in no acute distress. Neck supple no JVD. CVS regular rate rhythm, Respiratory lungs few expiratory wheeze, no respiratory distress, no use of accessory muscles, no crackles Gastrointestinal abdomen soft, non tender, bowel sounds audible, no guarding , no rigidity. Extremities no edema. Neuro non focal Skin no rash Psych appropriate affect Objective Data Active Medications Acetaminophen (Acetaminophen 325 Mg Tablet) 650 mg PO Q6H PRN PRN Reason: Pain, Mild (Pain Scale 1-3) Albuterol/Ipratropium (Albuterol/Iprat 2.5/0.5mg 3 Ml Ampul.Neb) 3 ml INHALE RQ4H WHILE AWAKE [facility] Last Admin: 08/31/23 11:35 Dose: 3 ml Documented By: DEBBIE Albuterol/Ipratropium (Albuterol/Iprat 2.5/0.5mg 3 Ml Ampul.Neb) 3 ml INHALE Q4H PRN PRN Reason: Wheezing Apixaban (Apixaban 5 Mg Tablet) 5 mg PO BID [facility] Last Admin: 08/31/23 08:17 Dose: 5 mg Documented By: KULWINDER Atorvastatin Calcium (Atorvastatin Calcium 80 Mg Tablet) 80 mg PO BEDTIME [facility] Last Admin: 08/30/23 20:54 Dose: 80 mg Documented By: CHAYA Buspirone HCl (Buspirone Hcl 5 Mg Tablet) 5 mg PO BID [facility] Last Admin: 08/31/23 08:18 Dose: 5 mg Documented By: KULWINDER Clopidogrel Bisulfate (Clopidogrel Bisulfate 75 Mg Tablet) 75 mg PO DAILY [facility] Last Admin: 08/31/23 08:17 Dose: 75 mg Documented By: KULWINDER Dextrose (Dextrose 50 % 25 Gm/50 Ml Syringe) 25 gm IVPUSH Q15M PRN; Protocol PRN Reason: per Hypoglycemia Standing Ord. Dicyclomine HCl (Dicyclomine Hcl 10 Mg Capsule) 10 mg PO TIDAC [facility] Last Admin: 08/31/23 11:45 Dose: 10 mg Documented By: ISAMAR Diltiazem HCl (Diltiazem Hcl Cd 300 Mg Cap.Er.24h) 300 mg PO DAILY [facility]; Protocol Last Admin: 08/31/23 08:18 Dose: 300 mg Documented By: KULWINDER Docusate Sodium (Docusate Sodium 100 Mg Capsule) 100 mg PO BID PRN PRN Reason: Constipation Empagliflozin (Empagliflozin 25 Mg Tablet) 25 mg PO DAILY [facility] Last Admin: 08/31/23 08:18 Dose: 25 mg Documented By: KULWINDER Escitalopram Oxalate (Escitalopram Oxalate 10 Mg Tablet) 10 mg PO DAILY [facility] Last Admin: 08/31/23 08:17 Dose: 10 mg Documented By: KULWINDER Glucose (Glucose Gel 15 Gm Gel..Gram.) 15 gm PO Q15M PRN; Protocol PRN Reason: per Hypoglycemia Standing Ord. Guaifenesin/Codeine Phosphate (Guaifen/Codeine Sf 200/20/10ml 10 Ml Liquid) 10 ml PO Q6H PRN PRN Reason: cough Last Admin: 08/30/23 20:23 Dose: 10 ml Documented By: CHAYA Azithromycin 500 mg/ Sodium (Chloride) 250 mls @ 125 mls/hr IV Q24H [facility] Last Infusion: 08/30/23 21:47 Dose: Infused Documented By: CHAYA Insulin Glargine (Insulin Glargine,Hum.Rec.Anlog 100 Unit/Ml 10 Ml Vial) 40 unit SUBCUT BEDTIME [facility] Last Admin: 08/30/23 20:55 Dose: 40 unit Documented By: CHAYA Insulin Human Lispro (Insulin Lispro 100 Unit/Ml 3 Ml Vial) 0 unit SUBCUT QIDACHS [facility]; Protocol Last Admin: 08/31/23 11:45 Dose: 4 unit Documented By: ISAMAR Loratadine (Loratadine 10 Mg Tablet) 10 mg PO DAILY [facility] Last Admin: 08/31/23 08:18 Dose: 10 mg Documented By: KULWINDER Melatonin (Melatonin 3 Mg Tablet) 6 mg PO BEDTIME PRN PRN Reason: Insomnia Last Admin: 08/30/23 01:34 Dose: 6 mg Documented By: CHAYA Melatonin (Melatonin 3 Mg Tablet) 3 mg PO BEDTIME [facility] Last Admin: 08/30/23 20:54 Dose: 3 mg Documented By: CHAYA Methylprednisolone Sodium Succinate (Methylprednisolone Sod Succ 40 Mg/Ml Vial) 40 mg IVPUSH Q12H [facility] Last Admin: 08/31/23 05:44 Dose: 40 mg Documented By: CHAYA Metoprolol Tartrate (Metoprolol Tartrate 50 Mg Tablet) 50 mg PO BID [facility]; Protocol Last Admin: 08/31/23 08:18 Dose: 50 mg Documented By: KULWINDER Morphine Sulfate (Morphine Sulfate 2 Mg/Ml Cartridge) 2 mg IVPUSH Q2H PRN; Protocol PRN Reason: Chest Pain Last Admin: 08/31/23 00:36 Dose: 2 mg Documented By: CHAYA Nitroglycerin (Nitroglycerin 0.4 Mg Tab.Subl) 0.4 mg SUBLINGUAL Q5MX3 PRN PRN Reason: Chest Pain Last Admin: 08/31/23 00:15 Dose: 0.4 mg Documented By: CHAYA Omeprazole (Omeprazole 40 Mg Capsule.Dr) 40 mg PO BID@0630,1630 [facility] Last Admin: 08/31/23 05:44 Dose: 40 mg Documented By: CHAYA Ondansetron HCl (Ondansetron Hcl 4 Mg/2 Ml Vial) 4 mg IVPUSH Q8H PRN PRN Reason: Nausea and Vomiting Polyethylene Glycol (Polyethylene Glycol 3350 17 Gm Powd.Pack) 17 gm PO BID [facility] Last Admin: 08/31/23 08:17 Dose: 17 gm Documented By: KULWINDER Sodium Chloride (0.9 % Sodium Chloride Flush 3 Ml Syringe) 3 ml IVFLUSH QSHIFT [facility] Last Admin: 08/31/23 08:19 Dose: 3 ml Documented By: KULWINDER Vitamin D (Cholecalciferol (Vitamin D3) 25 Mcg Tablet) 25 mcg PO DAILY [facility] Last Admin: 08/31/23 08:18 Dose: 25 mcg Documented By: KULWINDER Labs 08/31/23 10:12 08/31/23 10:12 Labs: Laboratory Results - last 24 hr 08/30/23 08/30/23 08/30/23 16:09 20:32 20:54 MCV MCH MCHC RDW Plt Count MPV Absolute Nucleated RBC Nucleated RBC % (auto) Hold Purple Top D-Dimer High Sensitivty Anion Gap Estim Creat Clear Calc Estimated GFR POC Glucose 297 H 368 H* Random Glucose Lactic Acid 3.9 H* Lactic Acid F/U @ 2Hr Lactic Acid F/U @ 4Hr Calcium 08/30/23 08/31/23 08/31/23 21:56 00:18 02:37 MCV MCH MCHC RDW Plt Count MPV Absolute Nucleated RBC Nucleated RBC % (auto) Hold Purple Top D-Dimer High Sensitivty < 150 Anion Gap Estim Creat Clear Calc Estimated GFR POC Glucose Random Glucose Lactic Acid Lactic Acid F/U @ 2Hr 2.4 H* Lactic Acid F/U @ 4Hr 2.3 H* Calcium 08/31/23 08/31/23 08/31/23 06:32 07:17 10:12 MCV 88.8 MCH 28.1 MCHC 31.6 RDW 16.1 H Plt Count 342 MPV 9.6 Absolute Nucleated RBC 0.000 Nucleated RBC % (auto) 0.0 Hold Purple Top SEE NOTE D-Dimer High Sensitivty Anion Gap 14 Estim Creat Clear Calc 43.7 Estimated GFR 42 POC Glucose 184 H Random Glucose 300 H Lactic Acid Lactic Acid F/U @ 2Hr Lactic Acid F/U @ 4Hr Calcium 8.8 08/31/23 11:08 MCV MCH MCHC RDW Plt Count MPV Absolute Nucleated RBC Nucleated RBC % (auto) Hold Purple Top D-Dimer High Sensitivty Anion Gap Estim Creat Clear Calc Estimated GFR POC Glucose 211 H Random Glucose Lactic Acid Lactic Acid F/U @ 2Hr Lactic Acid F/U @ 4Hr Calcium Microbiology Microbiology Results: Microbiology 08/29/23 16:57 Blood Culture - Preliminary Blood - Venous No growth after 24 hours. 08/29/23 16:38 Blood Culture - Preliminary Blood - Venous No growth after 24 hours. Assessment and Plan (1) Respiratory syncytial virus (RSV): Status: Acute (2) Acute exacerbation of chronic obstructive pulmonary disease: Status: Acute Plan 72-year-old female with pertinent history of insulin-dependent diabetes mellitus, CAD status post PCI, PE on Eliquis, essential hypertension, ALYSIA on CPAP, COPD not on home oxygen, mood disorder who presents to the emergency department for evaluation of dyspnea. #. Acute hypoxemic respiratory failure due to acute exacerbation of COPD in the setting of RSV: Feeling better continue Scheduled and p.r.n. DuoNebs, iv steroids and azithromycin for pleiotropic effect. 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 #. Insulin-dependent diabetes mellitus with hyperglycemia: Elevated blood sugars likely due to steroids continue Lantus, Accu-Cheks with sliding scale insulin #. Acute on chronic kidney disease stage 3, likely due to dehydration , creatinine returned to baseline Soft blood pressures will continue to hold Lasix and lisinopril follow BMP, avoid hypotension #. Essential hypertension: Continue home antihypertensives metoprolol 50 b.i.d., Cardizem 300 daily, hold lisinopril as above #. ALYSIA: Continue CPAP at bedtime #. Mood disorder: Continue home mood stabilizers #. History of PE: On Eliquis DVT prophylaxis: Eliquis Full code Patient will need continued inpatient hospitalization for supplemental oxygen, monitoring of respiratory status and cardiac status (as above), which is not possible in a lesser acute setting. Quality Stroke Does the patient have a stroke diagnosis?: No VTE Prior VTE?: No VTE Risk Level:: Medical - moderate - high VTE Device Contraindication: Treatment Not Indicated VTE Drug Contraindication: N/A - Med Ordered
--- NOTE | 2023-08-31 13:31 | PC.NURSE ---
Patient provided verbal consent to speak with daughter that is listed as her healthcare proxy. Patient requesting staff contact daughter if any acute changes occur.
[2023-08-31 16:39] LABS: Glucose, Whole Blood 228 mg/dL (60-115)
[2023-08-31] MEDS: Atorvastatin Calcium 80 MG TABLET PO (19:42)
[2023-08-31] MEDS: Azithromycin 500 MG in 0.9 % Sodium Chloride 250 ML 125 MG IV (19:48)
[2023-08-31 21:12] LABS: Glucose, Whole Blood 227 mg/dL (60-115)
[2023-08-31] MEDS: Insulin Glargine,Hum.rec.anlog 100 UNIT/ML 10 ML VIAL 40 UNIT SUBCUT (22:14)
[2023-08-31] MEDS: Melatonin 3 MG TABLET PO (22:31)
[2023-09-01] VITALS (8 sets, daily range): BP systolic 121–164; BP diastolic 51–70; PULSE 67–87; RESP 16–18; TEMP 36.1–36.7; O2SAT 94–97
[2023-09-01] MEDS: methylPREDNISolone Sod Succ 40 MG/ML VIAL IVPUSH ×2 (04:46→16:56)
[2023-09-01] MEDS: Omeprazole 40 MG CAPSULE.DR PO ×2 (05:38→16:57)
[2023-09-01 07:20] LABS: Glucose, Whole Blood 160 mg/dL (60-115)
[2023-09-01] MEDS: Albuterol/Iprat 2.5/0.5MG 3 ML AMPUL.NEB INHALE ×3 (08:05→19:43)
[2023-09-01] MEDS: Clopidogrel Bisulfate 75 MG TABLET PO (08:18)
[2023-09-01] MEDS: guaiFEN/Codeine SF 200/20/10ML 10 ML LIQUID PO (08:18)
[2023-09-01] MEDS: busPIRone HCl 5 MG TABLET PO ×2 (08:18→20:41)
[2023-09-01] MEDS: polyethylene glycoL 3350 17 GM POWD.PACK PO ×2 (08:18→20:41)
[2023-09-01] MEDS: Insulin Lispro 100 UNIT/ML 3 ML VIAL SUBCUT ×4 (08:18→20:42)
[2023-09-01] MEDS: Metoprolol Tartrate 50 MG TABLET PO ×2 (08:18→20:41)
[2023-09-01] MEDS: Cholecalciferol (Vitamin D3) 25 MCG TABLET PO (08:18)
[2023-09-01] MEDS: dilTIAZem HCL CD 300 MG CAP.ER.24H PO (08:19)
[2023-09-01] MEDS: Empagliflozin 25 MG TABLET PO (08:19)
[2023-09-01] MEDS: Apixaban 5 MG TABLET PO ×2 (08:19→20:41)
[2023-09-01] MEDS: Dicyclomine HCl 10 MG CAPSULE PO ×3 (08:19→16:57)
[2023-09-01] MEDS: Escitalopram Oxalate 10 MG TABLET PO (08:19)
[2023-09-01] MEDS: Loratadine 10 MG TABLET PO (08:19)
[2023-09-01] MEDS: 0.9 % Sodium Chloride Flush 3 ML SYRINGE IVFLUSH ×2 (08:19→16:56)
--- NOTE | 2023-09-01 10:28 | MHC.CM.PN ---
EMR reviewed. Per MD rounds patient is not medically cleared for DC. CM will continue to follow.
--- NOTE | 2023-09-01 10:43 | P.PNIM_ITS ---
Subjective Subjective Date of Service: 09/01/23 Interval History: Being followed for COPD exacerbation/RSV and type 2 cardiac event due to her RSV Complaining of shortness of breath and wheezing, no lightheadedness or dizziness, no nausea, no vomiting, no chest pain, tolerating diet. Review of Systems All other system reviewed and negative. Physical Exam 2 Vital Signs: Vital Signs: Last Vital Signs Temp 97.2 F 09/01/23 07:15 Pulse 87 09/01/23 08:07 Resp 16 09/01/23 08:07 BP 147/58 H 09/01/23 07:15 Pulse Ox 97 09/01/23 07:15 O2 Del Method Room Air 09/01/23 07:15 O2 Flow Rate 2 08/31/23 19:30 BMI result Body Mass Index 35.3 Const: Other: General awake alert x3, in no acute distress. Neck supple no JVD. CVS regular rate rhythm, Respiratory lungs expiratory wheeze, no respiratory distress, no use of accessory muscles, no crackles Gastrointestinal abdomen soft, non tender, bowel sounds audible, no guarding , no rigidity. Extremities no edema. Neuro non focal Skin no rash Psych appropriate affect Objective Data Active Medications Acetaminophen (Acetaminophen 325 Mg Tablet) 650 mg PO Q6H PRN PRN Reason: Pain, Mild (Pain Scale 1-3) Albuterol/Ipratropium (Albuterol/Iprat 2.5/0.5mg 3 Ml Ampul.Neb) 3 ml INHALE RQ4H WHILE AWAKE [facility] Last Admin: 09/01/23 08:05 Dose: 3 ml Documented By: COURTNEY Albuterol/Ipratropium (Albuterol/Iprat 2.5/0.5mg 3 Ml Ampul.Neb) 3 ml INHALE Q4H PRN PRN Reason: Wheezing Apixaban (Apixaban 5 Mg Tablet) 5 mg PO BID [facility] Last Admin: 09/01/23 08:19 Dose: 5 mg Documented By: MARYBETH Atorvastatin Calcium (Atorvastatin Calcium 80 Mg Tablet) 80 mg PO BEDTIME [facility] Last Admin: 08/31/23 19:42 Dose: 80 mg Documented By: OZORALB Buspirone HCl (Buspirone Hcl 5 Mg Tablet) 5 mg PO BID [facility] Last Admin: 09/01/23 08:18 Dose: 5 mg Documented By: MARYBETH Clopidogrel Bisulfate (Clopidogrel Bisulfate 75 Mg Tablet) 75 mg PO DAILY [facility] Last Admin: 09/01/23 08:18 Dose: 75 mg Documented By: MARYBETH Dextrose (Dextrose 50 % 25 Gm/50 Ml Syringe) 25 gm IVPUSH Q15M PRN; Protocol PRN Reason: per Hypoglycemia Standing Ord. Dicyclomine HCl (Dicyclomine Hcl 10 Mg Capsule) 10 mg PO TIDAC [facility] Last Admin: 09/01/23 08:19 Dose: 10 mg Documented By: MARYBETH Diltiazem HCl (Diltiazem Hcl Cd 300 Mg Cap.Er.24h) 300 mg PO DAILY [facility]; Protocol Last Admin: 09/01/23 08:19 Dose: 300 mg Documented By: MARYBETH Docusate Sodium (Docusate Sodium 100 Mg Capsule) 100 mg PO BID PRN PRN Reason: Constipation Empagliflozin (Empagliflozin 25 Mg Tablet) 25 mg PO DAILY [facility] Last Admin: 09/01/23 08:19 Dose: 25 mg Documented By: MARYBETH Escitalopram Oxalate (Escitalopram Oxalate 10 Mg Tablet) 10 mg PO DAILY [facility] Last Admin: 09/01/23 08:19 Dose: 10 mg Documented By: MARYBETH Glucose (Glucose Gel 15 Gm Gel..Gram.) 15 gm PO Q15M PRN; Protocol PRN Reason: per Hypoglycemia Standing Ord. Guaifenesin/Codeine Phosphate (Guaifen/Codeine Sf 200/20/10ml 10 Ml Liquid) 10 ml PO Q6H PRN PRN Reason: cough Last Admin: 09/01/23 08:18 Dose: 10 ml Documented By: MARYBETH Azithromycin 500 mg/ Sodium (Chloride) 250 mls @ 125 mls/hr IV Q24H [facility] Last Infusion: 08/31/23 23:07 Dose: Infused Documented By: ROCKY Insulin Glargine (Insulin Glargine,Hum.Rec.Anlog 100 Unit/Ml 10 Ml Vial) 40 unit SUBCUT BEDTIME [facility] Last Admin: 08/31/23 22:14 Dose: 40 unit Documented By: ROCKY Insulin Human Lispro (Insulin Lispro 100 Unit/Ml 3 Ml Vial) 0 unit SUBCUT QIDACHS [facility]; Protocol Last Admin: 09/01/23 08:18 Dose: 4 unit Documented By: MARYBETH Loratadine (Loratadine 10 Mg Tablet) 10 mg PO DAILY [facility] Last Admin: 09/01/23 08:19 Dose: 10 mg Documented By: MARYBETH Melatonin (Melatonin 3 Mg Tablet) 6 mg PO BEDTIME PRN PRN Reason: Insomnia Last Admin: 08/30/23 01:34 Dose: 6 mg Documented By: CHAYA Melatonin (Melatonin 3 Mg Tablet) 3 mg PO BEDTIME [facility] Last Admin: 08/31/23 22:31 Dose: 3 mg Documented By: ROCKY Methylprednisolone Sodium Succinate (Methylprednisolone Sod Succ 40 Mg/Ml Vial) 40 mg IVPUSH Q12H [facility] Last Admin: 09/01/23 04:46 Dose: 40 mg Documented By: ROCKY Metoprolol Tartrate (Metoprolol Tartrate 50 Mg Tablet) 50 mg PO BID [facility]; Protocol Last Admin: 09/01/23 08:18 Dose: 50 mg Documented By: MARYBETH Morphine Sulfate (Morphine Sulfate 2 Mg/Ml Cartridge) 2 mg IVPUSH Q2H PRN; Protocol PRN Reason: Chest Pain Last Admin: 08/31/23 19:47 Dose: 2 mg Documented By: ROCKY Nitroglycerin (Nitroglycerin 0.4 Mg Tab.Subl) 0.4 mg SUBLINGUAL Q5MX3 PRN PRN Reason: Chest Pain Last Admin: 08/31/23 00:15 Dose: 0.4 mg Documented By: CHAYA Omeprazole (Omeprazole 40 Mg Capsule.Dr) 40 mg PO BID@0630,1630 [facility] Last Admin: 09/01/23 05:38 Dose: 40 mg Documented By: ROCKY Ondansetron HCl (Ondansetron Hcl 4 Mg/2 Ml Vial) 4 mg IVPUSH Q8H PRN PRN Reason: Nausea and Vomiting Polyethylene Glycol (Polyethylene Glycol 3350 17 Gm Powd.Pack) 17 gm PO BID [facility] Last Admin: 09/01/23 08:18 Dose: 17 gm Documented By: MARYBETH Sodium Chloride (0.9 % Sodium Chloride Flush 3 Ml Syringe) 3 ml IVFLUSH QSHIFT [facility] Last Admin: 09/01/23 08:19 Dose: 3 ml Documented By: MARYBETH Vitamin D (Cholecalciferol (Vitamin D3) 25 Mcg Tablet) 25 mcg PO DAILY [facility] Last Admin: 09/01/23 08:18 Dose: 25 mcg Documented By: MARYBETH Labs 08/31/23 10:12 08/31/23 10:12 Labs: Laboratory Results - last 24 hr 08/31/23 08/31/23 08/31/23 10:12 11:08 16:35 Anion Gap 14 Estim Creat Clear Calc 43.7 Estimated GFR 42 POC Glucose 211 H 228 H Random Glucose 300 H Calcium 8.8 08/31/23 09/01/23 21:07 07:14 Anion Gap Estim Creat Clear Calc Estimated GFR POC Glucose 227 H 160 H Random Glucose Calcium Microbiology Microbiology Results: Microbiology 08/29/23 16:57 Blood Culture - Preliminary Blood - Venous No growth after 48 hours. 08/29/23 16:38 Blood Culture - Preliminary Blood - Venous No growth after 48 hours. Assessment and Plan (1) Respiratory syncytial virus (RSV): Status: Acute (2) Acute exacerbation of chronic obstructive pulmonary disease: Status: Acute Plan 72-year-old female with pertinent history of insulin-dependent diabetes mellitus, CAD status post PCI, PE on Eliquis, essential hypertension, ALYSIA on CPAP, COPD not on home oxygen, mood disorder who presents to the emergency department for evaluation of dyspnea. #. Acute hypoxemic respiratory failure due to acute exacerbation of COPD in the setting of RSV: Intermittent shortness of breath with expiratory wheeze continue Scheduled and p.r.n. DuoNebs, iv steroids and azithromycin d3 for pleiotropic effect. 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 Recommend out of bed to chair and ambulation as tolerated. #. Insulin-dependent diabetes mellitus with hyperglycemia: Elevated blood sugars likely due to steroids continue Lantus, Accu-Cheks with sliding scale insulin #. Acute on chronic kidney disease stage 3, likely due to dehydration , creatinine returned to baseline blood pressures improved will resume Lasix and lisinopril follow BMP #. Essential hypertension: Continue home antihypertensives metoprolol 50 b.i.d., Cardizem 300 daily, and lisinopril. #. ALYSIA: Continue CPAP at bedtime. #. Mood disorder: Continue home mood stabilizers. A #. History of PE: On Eliquis DVT prophylaxis: Eliquis Full code Patient will need continued inpatient hospitalization for supplemental oxygen, monitoring of respiratory status and cardiac status (as above), which is not possible in a lesser acute setting. Quality Stroke Does the patient have a stroke diagnosis?: No VTE Prior VTE?: No VTE Risk Level:: Medical - moderate - high VTE Device Contraindication: Treatment Not Indicated VTE Drug Contraindication: N/A - Med Ordered
[2023-09-01 11:03] LABS: Glucose, Whole Blood 236 mg/dL (60-115)
[2023-09-01] MEDS: Furosemide 20 MG TABLET PO (11:29)
[2023-09-01] MEDS: Morphine Sulfate 2 MG/ML CARTRIDGE IVPUSH (11:30)
[2023-09-01 16:11] LABS: Glucose, Whole Blood 254 mg/dL (60-115)
[2023-09-01] MEDS: Acetaminophen 325 MG TABLET 650 MG PO (16:57)
[2023-09-01] MEDS: Throat Lozenge, Medicated LOZENGE 1 LOZENGE MUCOUS MEM ×2 (16:57→20:52)
[2023-09-01 20:30] LABS: Glucose, Whole Blood 260 mg/dL (60-115)
[2023-09-01] MEDS: Melatonin 3 MG TABLET PO (20:41)
[2023-09-01] MEDS: Insulin Glargine,Hum.rec.anlog 100 UNIT/ML 10 ML VIAL 40 UNIT SUBCUT (20:41)
[2023-09-01] MEDS: Atorvastatin Calcium 80 MG TABLET PO (20:41)
[2023-09-01] MEDS: Azithromycin 500 MG in 0.9 % Sodium Chloride 250 ML 125 MG IV (20:42)
[2023-09-02 03:17] VITALS: BP 168/75; PULSE 75; RESP 18; TEMP 36.4; O2SAT 96
[2023-09-02] MEDS: methylPREDNISolone Sod Succ 40 MG/ML VIAL IVPUSH (05:38)
[2023-09-02] MEDS: Omeprazole 40 MG CAPSULE.DR PO (05:39)
[2023-09-02 07:29] VITALS: BP 140/65; PULSE 82; RESP 18; TEMP 36.6; O2SAT 95
[2023-09-02 07:54] LABS: Glucose, Whole Blood 160 mg/dL (60-115)
[2023-09-02] MEDS: Albuterol/Iprat 2.5/0.5MG 3 ML AMPUL.NEB INHALE ×2 (08:04→11:29)
[2023-09-02 08:05] VITALS: PULSE 81; RESP 18; O2SAT 98
[2023-09-02] MEDS: Furosemide 20 MG TABLET PO (08:15)
[2023-09-02] MEDS: Metoprolol Tartrate 50 MG TABLET PO (08:15)
[2023-09-02] MEDS: polyethylene glycoL 3350 17 GM POWD.PACK PO (08:15)
[2023-09-02] MEDS: Insulin Lispro 100 UNIT/ML 3 ML VIAL SUBCUT ×2 (08:15→12:22)
[2023-09-02] MEDS: Clopidogrel Bisulfate 75 MG TABLET PO (08:16)
[2023-09-02] MEDS: lisinopriL 10 MG TABLET PO (08:16)
[2023-09-02] MEDS: Dicyclomine HCl 10 MG CAPSULE PO ×2 (08:16→12:23)
[2023-09-02] MEDS: Apixaban 5 MG TABLET PO (08:16)
[2023-09-02] MEDS: Cholecalciferol (Vitamin D3) 25 MCG TABLET PO (08:16)
[2023-09-02] MEDS: busPIRone HCl 5 MG TABLET PO (08:16)
[2023-09-02] MEDS: Escitalopram Oxalate 10 MG TABLET PO (08:16)
[2023-09-02] MEDS: Throat Lozenge, Medicated LOZENGE 1 LOZENGE MUCOUS MEM ×2 (08:16→10:54)
[2023-09-02] MEDS: dilTIAZem HCL CD 300 MG CAP.ER.24H PO (08:17)
[2023-09-02] MEDS: 0.9 % Sodium Chloride Flush 3 ML SYRINGE IVFLUSH (08:17)
[2023-09-02] MEDS: Loratadine 10 MG TABLET PO (08:17)
[2023-09-02] MEDS: Empagliflozin 25 MG TABLET PO (08:24)
[2023-09-02 11:27] LABS: Glucose, Whole Blood 198 mg/dL (60-115)
[2023-09-02 11:30] VITALS: PULSE 73; RESP 18; O2SAT 98
--- NOTE | 2023-09-02 12:52 | PM.DS ---
DS: Providers Provider Date of Service: 09/02/23 Date of admission: 08/29/23 19:20 Primary care physician: Amanda Leiva MD Consults: 08/31/23 07:00 Consult to Cardiology Routine Consulting Provider: [facility] Reason for consultation: concern for NSTEMI Has provider been notified: Yes DS: Diagnosis Discharge Diagnosis (1) Respiratory syncytial virus (RSV): Status: Acute (2) Acute exacerbation of chronic obstructive pulmonary disease: Status: Acute DS: Summary Hospital Course Hospital Course: History of presenting illness: Date of Service: 08/29/23 Chief Complaint: Dyspnea This is a 72-year-old female with pertinent history of insulin-dependent diabetes mellitus, CAD status post PCI, PE on Eliquis, essential hypertension, ALYSIA on CPAP, COPD not on home oxygen, mood disorder who presents to the emergency department for evaluation of dyspnea. Patient states she started having dyspnea on the day of presentation. It was progressive throughout the day and worse with ambulation. Also had associated cough with intermittent sputum production. Patient with significant wheezing throughout the day. No relief with home albuterol inhaler. Patient denies fever, chills, chest discomfort, palpitations, abdominal pain, changes in urinary or bowel habits. In the emergency department, patient's test positive for RSV and was requiring supplemental oxygen. Hospital course: 72-year-old female with pertinent history of insulin-dependent diabetes mellitus, CAD status post PCI, PE on Eliquis, essential hypertension, ALYSIA on CPAP, COPD not on home oxygen, mood disorder who presents to the emergency department for evaluation of dyspnea. #. Acute hypoxemic respiratory failure due to acute exacerbation of COPD in the setting of RSV, admitted to medical floor treated with DuoNebs, iv steroids and azithromycin Patient responded well to above treatment, oxygenation improved currently on room air finger oximetry 97% will discharge home on by mouth steroids, cough medications Recommend to rest and take analgesics as needed. 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 #. Insulin-dependent diabetes mellitus with hyperglycemia likely due to steroids recommend to continue Lantus, and sliding scale insulin. No #. Acute on chronic kidney disease stage 3, likely due to dehydration , creatinine returned to baseline. #. Essential hypertension: Continue home antihypertensives metoprolol 50 b.i.d., Cardizem 300 daily, and lisinopril. #. ALYSIA: Continue CPAP at bedtime. #. Mood disorder: Continue home mood stabilizers. #. History of PE: On Eliquis Time Attestation Discharge coordination time: Greater than 30 minutes Quality: Safe Use of Opioids Does Pt have an Active Cancer Diagnosis on the Problem List?: No Quality: Stroke Does the patient have a stroke diagnosis?: No Physical Exam Vital Signs: Vital Signs: Last Vital Signs Temp 97.8 F 09/02/23 07:29 Pulse 73 09/02/23 11:30 Resp 18 09/02/23 11:30 BP 140/65 H 09/02/23 07:29 Pulse Ox 95 09/02/23 07:29 O2 Del Method CPAP 09/02/23 07:29 O2 Flow Rate 2 08/31/23 19:30 BMI result Body Mass Index 35.3 Const: Other: General awake alert x3, in no acute distress. Neck supple no JVD. CVS regular rate rhythm, Respiratory lungs no wheeze, no respiratory distress, no use of accessory muscles, no crackles , audible wheeze upper airway Gastrointestinal abdomen soft, non tender, bowel sounds audible, no guarding , no rigidity. Extremities no edema. Neuro non focal Skin no rash Psych appropriate affect DS: Data Data Completed and Pending Completed studies during hospitalization [Text1]: Procedures Assistance with Respiratory Ventilation, Less than 24 Consecutive Hours, Continuous Positive Airway Pressure (08/17/23) Labs on day of discharge: Laboratory Results - last 24 hr 09/01/23 09/01/23 09/02/23 16:08 20:25 07:29 POC Glucose 254 H 260 H 160 H 09/02/23 11:20 POC Glucose 198 H Preliminary micro results at discharge 08/29/23 16:57 Blood Culture - Preliminary Blood - Venous No growth after 48 hours. 08/29/23 16:38 Blood Culture - Preliminary Blood - Venous No growth after 48 hours. Discharge Plan Discharge Anticipated Discharge Date/Time: 09/02/23 12:44 Patient Disposition: Home Health Service Discharge Diagnosis: Acute hypoxic respiratory failure due to acute COPD exacerbation RSV Type 2 demand ischemia related to RSV Referrals: [facility] [Outside] - 3-5 Days (Resume [facility] services) Amanda Leiva MD [Primary Care Provider] - 1 Week Discharge Medications: New Chloraseptic Sore Throat 6-10 mg Lozenge 1 tram mucous membrane Q2H PRN (Reason: Sore Throat) Qty: 18 0RF prednisone 20 mg tablet 20 mg PO DAILY Qty: 5 0RF Continued Jardiance 25 mg tablet 25 mg PO DAILY Qty: 90 1RF (DME) FreeStyle Lite Strips Strip See Rx Instructions .Route Qty: 100 3RF Rx Instructions: test blood sugar once a day metoprolol tartrate 50 mg tablet 50 mg PO BID Qty: 180 3RF (DME) FreeStyle Kelly 2 Sensor Kit See Rx Instructions .ROUTE .MEDSUPPLY Qty: 6 3RF Rx Instructions: As directed every 2 weeks clopidogrel 75 mg tablet 75 mg PO DAILY Qty: 90 1RF diltiazem HCl [Matzim LA] 300 mg tablet extended release 24 hr 300 mg PO DAILY Qty: 90 1RF citalopram 20 mg tablet 20 mg PO DAILY Qty: 90 1RF (DME) walker Misc See Rx Instructions .Route Qty: 1 0RF Rx Instructions: As directed pantoprazole 40 mg tablet,delayed release (DR/EC) 40 mg PO BID ipratropium-albuterol 0.5 mg-3 mg(2.5 mg base)/3 mL solution for nebulization 3 ml inhalation BID PRN (Reason: sob) buspirone 5 mg tablet 5 mg PO BID melatonin 3 mg Tablet 3 mg PO BEDTIME loratadine 10 mg Tablet 10 mg PO DAILY cholecalciferol (vitamin D3) 25 mcg (1,000 unit) Tablet 25 mcg PO DAILY insulin lispro [Humalog U-100 Insulin] 100 unit/mL solution See Protocol subcut QIDACHS Protocol: Insulin Correction Scale Less than or equal to 110 ---- Give (units): 0 111 to 150 Give (units): 12 151 to 200 Give (units): 14 201 to 250 Give (units): 16 251 to 300 Give (units): 18 301 to 350 Give (units): 20 Greater than 350 Give (units): 20 Call MD if Blood Glucose > : 350 insulin glargine [Lantus Solostar U-100 Insulin] 100 unit/mL (3 mL) insulin pen 50 unit subcut BEDTIME dicyclomine 10 mg Capsule 10 mg PO TIDAC Qty: 90 0RF codeine-guaifenesin 10-100 mg/5 mL Liquid 10 ml PO Q6H PRN (Reason: cough) Qty: 120 0RF lidocaine [Lidocaine Pain Relief] 4 % Adhesive Patch,Medicated 1 patch transdermal DAILY Qty: 10 0RF Protocol: Apply to: Apply to: right flank docusate sodium 100 mg Capsule 100 mg PO BID PRN (Reason: Constipation) Qty: 30 0RF polyethylene glycol 3350 17 gram Powder In Packet 17 g PO BID Qty: 30 0RF acetaminophen 325 mg Tablet 650 mg PO Q6H PRN (Reason: pain) Qty: 30 0RF gabapentin 100 mg Capsule 100 mg PO DAILY PRN (Reason: pain) Qty: 10 0RF lisinopril 10 mg tablet 10 mg PO DAILY Qty: 30 0RF furosemide [Lasix] 20 mg tablet 20 mg PO DAILY Qty: 30 0RF albuterol sulfate [ProAir HFA] 90 mcg/actuation Hfa Aerosol Inhaler 2 puff INHALATION Q4H PRN (Reason: Shortness Of Breath) Hold Instructions: Resume on 06/29/23. Trulicity 1.5 mg/0.5 mL pen injector 1 mg subcut Q7D atorvastatin 80 mg tablet 80 mg PO QPM Qty: 90 2RF Eliquis 5 mg tablet 5 mg PO BID Hold Instructions: Resume on 06/30/23. hold until patient on iv heparin Discharge Orders: Discharge Order (Routine); Ordered 09/02/23 Ordered By: Marcelo Lewis Diet: Diabetic diet Activity on Discharge: As tolerated Stand Alone Forms: Patient Portal Discharge page Care Plan Goals: RSV infection causing COPD exacerbation and demand ischemia Use mask if coughing or sneezing for next few days Use DuoNeb updraft treatment 4 times a day scheduled for next 3-4 days and as needed if noted to have shortness of breath Use cough medication, throat lozenges, nasal saline spray and Tylenol for pain Return to ED due to recurrent episodes of shortness of breath chest pain At present oxygenation stable on room air no wheeze on examination. Health Concerns: Continue diabetic diet monitor blood sugars continue all home medications as before Plan of Treatment: Follow-up with primary care physician call for appointment Assessment: as above Discharge Date/Time: 09/02/23 13:38
--- NOTE | 2023-09-02 13:03 | MHC.CM.PN ---
Per EMR patient is medically cleared for dc. Plan is home, resume [facility] services. [facility] is aware of dc. Daughter will transport. RN aware. IMM delivered.
== END 2023-09-02 13:38 | disposition home health service (06) | DRG 190 ==
LOC: HO.ED 16:29 → HO.EDOVER 19:52 → HO.S3 20:35
PROVIDERS: Internal Medicine; Physician Assistant; Admitting Provider Student in an Organized Health Care Education/Training Program; Emergency Provider Emergency Medicine; PCP Internal Medicine; Visit Provider Hospitalist
DX: J44.1 Chronic obstructive pulmonary disease with (acute) exacerbation (principal); J96.01 Acute respiratory failure with hypoxia; I24.89 Other forms of acute ischemic heart disease; N17.9 Acute kidney failure, unspecified; I25.10 Atherosclerotic heart disease of native coronary artery without angina pectoris; G47.33 Obstructive sleep apnea (adult) (pediatric); E11.65 Type 2 diabetes mellitus with hyperglycemia; F39 Unspecified mood [affective] disorder; E11.22 Type 2 diabetes mellitus with diabetic chronic kidney disease; E86.0 Dehydration; I12.9 Hypertensive chronic kidney disease with stage 1 through stage 4 chronic kidney disease, or unspecified chronic kidney disease; N18.30 Chronic kidney disease, stage 3 unspecified; I25.2 Old myocardial infarction; Z20.822 Contact with and (suspected) exposure to COVID-19; Z86.711 Personal history of pulmonary embolism; Z95.5 Presence of coronary angioplasty implant and graft; Z91.040 Latex allergy status; Z87.891 Personal history of nicotine dependence; Z79.4 Long term (current) use of insulin; Z79.02 Long term (current) use of antithrombotics/antiplatelets; Z79.01 Long term (current) use of anticoagulants; Z79.899 Other long term (current) drug therapy
CPT/HCPCS: 0241U; 36415; 71045; 80048; 80053; 82947; 83605; 83880; 84484; 85025; 85027; 85379; 85610; 85730; 87040; 93005; 94640; 94660; 99221; 99285; J0456; J2270; J2920; J2930; J3475

== ENCOUNTER → 2023-08-29 16:24 | Outpatient (BNV) | payer MEDICARE, SELFPAY | PROVIDERS: Admitting Provider Student in an Organized Health Care Education/Training Program; Emergency Provider Emergency Medicine; PCP Internal Medicine; Visit Provider Internal Medicine Cardiovascular Disease | DX: R06.00 Dyspnea, unspecified (principal) | CPT/HCPCS: 93010 ==

== ENCOUNTER → 2023-08-29 16:29 | Outpatient (BNV) | payer MEDICARE, SELFPAY | PROVIDERS: Emergency Provider Emergency Medicine; PCP Internal Medicine; Visit Provider Student in an Organized Health Care Education/Training Program | DX: J44.1 Chronic obstructive pulmonary disease with (acute) exacerbation (principal); J96.01 Acute respiratory failure with hypoxia; B33.8 Other specified viral diseases | CPT/HCPCS: 99222; 99232; 99233; 99239; 99499 ==

== ENCOUNTER 2023-08-29 19:20 | Outpatient (BNV) | payer MEDICARE, SELFPAY | END 2023-08-30 20:05 | PROVIDERS: Admitting Provider Student in an Organized Health Care Education/Training Program; Emergency Provider Emergency Medicine; PCP Internal Medicine; Visit Provider Internal Medicine | DX: R00.0 Tachycardia, unspecified (principal) | CPT/HCPCS: 93010 ==

== ENCOUNTER → 2023-08-29 19:20 | Outpatient (BNV) | payer MEDICARE, SELFPAY | PROVIDERS: Admitting Provider Student in an Organized Health Care Education/Training Program; Emergency Provider Emergency Medicine; PCP Internal Medicine; Visit Provider Internal Medicine | DX: B33.8 Other specified viral diseases (principal); I21.4 Non-ST elevation (NSTEMI) myocardial infarction; E11.22 Type 2 diabetes mellitus with diabetic chronic kidney disease; N18.30 Chronic kidney disease, stage 3 unspecified; I25.10 Atherosclerotic heart disease of native coronary artery without angina pectoris | CPT/HCPCS: 99223 ==

== ENCOUNTER 2023-09-15 14:10 | Emergency (ER) | payer MEDICARE, SELFPAY ==
[2023-09-15] VITALS (8 sets, daily range): BP systolic 152–189; BP diastolic 50–67; PULSE 107–116; RESP 16–22; TEMP 37.6; O2SAT 96–98; BMI 34.7
--- NOTE | ~2023-09-15 | XR_ITS ---
EXAMINATION: XR CHEST CLINICAL INFORMATION: Shortness of breath COMPARISON: 08/29/2023 TECHNIQUE: 2 views of the chest were obtained. FINDINGS: Chronic markings are noted. No convincing evidence for an acute process. The cardiac silhouette is comparable. The hilar regions are felt to be comparable. Tortuous versus ectatic aorta is noted. XR/XR chest 2V IMPRESSION: Chronic markings. No convincing evidence for an acute process.
--- NOTE | 2023-09-15 14:54 | ED_ITS ---
HPI - General Adult General Chief complaint: Upper Respiratory Symptoms Stated complaint: HIGH BS, FLU LIKE SYMP Time Seen by Provider: 09/15/23 17:03 Source: patient Mode of arrival: EMS History of Present Illness HPI narrative: 72-year-old female arrives with complaints of chest congestion and cough for the past couple of days but denies any fever, chills, nausea, vomiting, sore throat. Related Data Home Medications Medication Instructions Recorded Confirmed apixaban 5 mg tablet (Eliquis) 5 mg PO BID 09/30/21 08/30/23 dulaglutide 1.5 mg/0.5 mL 1 mg subcut Q7D 02/05/23 08/30/23 subcutaneous pen injector (Trulicity) albuterol sulfate 90 mcg/actuation 2 puff inhalation Q4H PRN 06/25/23 08/30/23 aerosol inhaler (ProAir HFA) Shortness Of Breath buspirone 5 mg tablet 5 mg PO BID 08/11/23 08/30/23 cholecalciferol (vitamin D3) 25 25 mcg PO DAILY 08/11/23 08/30/23 mcg (1,000 unit) tablet insulin glargine 100 unit/mL (3 50 unit subcut BEDTIME 08/11/23 08/30/23 mL) subcutaneous pen (Lantus Solostar U-100 Insulin) insulin lispro 100 unit/mL See Protocol subcut QIDACHS 08/11/23 08/30/23 subcutaneous solution (Humalog U-100 Insulin) ipratropium 0.5 mg-albuterol 3 mg 3 ml inhalation BID PRN sob 08/11/23 08/30/23 (2.5 mg base)/3 mL nebulization soln loratadine 10 mg tablet 10 mg PO DAILY 08/11/23 08/30/23 melatonin 3 mg tablet 3 mg PO BEDTIME 08/11/23 08/30/23 pantoprazole 40 mg tablet,delayed 40 mg PO BID 08/11/23 08/30/23 release Previous Rx's Medication Instructions Recorded atorvastatin 80 mg tablet 80 mg PO QPM #90 tabs 02/05/23 walker #1 ea 02/28/23 empagliflozin 25 mg tablet 25 mg PO DAILY #90 tabs 03/19/23 (Jardiance) blood sugar diagnostic (FreeStyle #100 ea 03/26/23 Lite Strips) metoprolol tartrate 50 mg tablet 50 mg PO BID #180 tabs 04/21/23 flash glucose sensor (FreeStyle #6 ea 05/14/23 Kelly 2 Sensor kit) dicyclomine 10 mg capsule 10 mg PO TIDAC #90 caps 08/14/23 acetaminophen 325 mg tablet 650 mg (2 x 325 mg) PO Q6H PRN 08/22/23 pain #30 tabs codeine 10 mg-guaifenesin 100 mg/5 10 ml PO Q6H PRN cough #120 mL 08/22/23 mL oral liquid docusate sodium 100 mg capsule 100 mg PO BID PRN Constipation #30 08/22/23 caps furosemide 20 mg tablet (Lasix) 20 mg PO DAILY #30 tabs 08/22/23 gabapentin 100 mg capsule 100 mg PO DAILY PRN pain #10 caps 08/22/23 lidocaine 4 % topical patch 1 patch transdermal DAILY #10 ea 08/22/23 (Lidocaine Pain Relief) lisinopril 10 mg tablet 10 mg PO DAILY #30 tabs 08/22/23 polyethylene glycol 3350 17 gram 17 g PO BID #30 ea 08/22/23 oral powder packet citalopram 20 mg tablet 20 mg PO DAILY #90 tabs 08/27/23 clopidogrel 75 mg tablet 75 mg PO DAILY #90 tabs 08/27/23 diltiazem HCl 300 mg 300 mg PO DAILY #90 tabs 08/27/23 tablet,extended release 24 hr (Matzim LA) benzocaine 6 mg-menthol 10 mg 1 tram mucous membrane Q2H PRN Sore 09/02/23 lozenges (Chloraseptic Sore Throat) Throat #18 ea prednisone 20 mg tablet 20 mg PO DAILY #5 tabs 09/02/23 azithromycin 250 mg tablet See Rx Instructions PO .COMPLEX #6 09/10/23 tabs prednisone 50 mg tablet 50 mg PO DAILY 4 days #4 tabs 09/15/23 Allergies Allergy/AdvReac Type Severity Reaction Status Date / Time Latex, Natural Rubber Allergy Severe blisters Verified 06/25/23 11:54 Sulfa (Sulfonamide Allergy Mild ITCHING, Verified 06/25/23 11:54 Antibiotics) rash [SULFA (SULFONAMIDE ANTIBIOTICS)] nystatin Allergy Unknown rash Verified 06/25/23 11:54 isosorbide [From Imdur] AdvReac Unknown HEADACHES, Verified 06/25/23 11:54 headache tizanidine AdvReac Unknown weakness, Verified 06/25/23 11:54 Hellucination Review of Systems 2 Review of Systems: Pertinent positives and negatives as stated in [facility] Past Medical History Source: nursing notes reviewed Onset Date is defined in the Problem List Problems that require an onset date and time if occurred within 24 hrs of arrival to the ED Aortic Dissection and Rupture; Neurologic impairment; Cardiopulmonary Arrest; Endotracheal Intubation; Insertion or Replacement of Mechanical Circulatory Assist Device Medical History Non-ST elevation NM (NSTEMI) CKD stage 3 due to type 2 diabetes mellitus Paroxysmal atrial fibrillation Pulmonary embolism Obesity Dyslipidemia Hypertension 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 Father No problems noted. Brother Substance use disorder Brother Substance use disorder Social History Social History Household Members: Family Household Members Other:: 2 Housing: House Do you presently have visiting nurse or other home services: No (it's coming soon) Alcohol intake: former Patient Tobacco Use Status: Former Tobacco user Quit Date: 1993 Tobacco use type: Cigarette Cigarettes Per Day: 10 Years Smoked: 3 Smoked in Last 30 Days: No e-Cigarette/Vaping Use: Never Used Second Hand Smoke Exposure: No Use of substances other than those prescribed or required for medical reasons: No Advance Directives: Yes Advance Directives on File: Yes Advance Directives Date on File: 06/29/23 service: No Current occupational status: retired Cognitive needs: No Hearing needs: No Vision needs: No Physical Exam ED Vital Signs: Vital Signs - 24 hr 09/15/23 14:55 09/15/23 15:46 09/15/23 16:47 Temperature 99.6 F Pulse Rate 108 H 108 H Respiratory Rate 18 22 H Blood Pressure 189/67 H Pulse Oximetry 97 98 Oxygen Delivery Method Room Air Room Air 09/15/23 17:47 09/15/23 18:00 09/15/23 18:25 Temperature Pulse Rate 116 H 116 H 111 H Respiratory Rate 16 18 16 Blood Pressure 163/50 H 152/60 H 152/60 H Pulse Oximetry 96 97 97 Oxygen Delivery Method Room Air Room Air 09/15/23 19:58 Temperature Pulse Rate 107 H Respiratory Rate 18 Blood Pressure 155/52 H Pulse Oximetry 96 Oxygen Delivery Method BMI result Body Mass Index 34.7 VITAL SIGNS: Reviewed. GENERAL: Well developed, well nourished, in no acute distress. HEAD: Normocephalic/atraumatic EYES: PERRLA, EOMI EARS: Ext canals without abnormality NOSE: Nares patent bilateral OROPHARYNX: no oral lesions noted, posterior pharynx clear NECK: Supple, no adenopathy LUNGS: Normal breath sounds. No adventitious sounds or accessory muscle use. SpO2<96> CARDIOVASCULAR: Tachycardic rate and rhythm without noted murmurs, no JVD or lower extremity edema. ABDOMEN: Soft, non-tender, non-distended with bowel sounds. MUSCULOSKELETAL: No tenderness, deformities, or effusions noted on gross inspection. EXTREMITIES: No cyanosis, clubbing or edema. SKIN: Inspection of the skin reveals no rashes NEUROLOGIC: Alert and oriented x 4. Strength and sensation to light touch were grossly intact x 4. Course Course Course Narrative: RME: 72-year-old female history of COPD, diabetes, coronary artery disease, PE, sleep apnea, recently d/c'd from hospital on 09/02 for COPD & RSV presents to the ED via EMS for elevated blood glucose, productive cough, SOB & CP x last week. denies fever, chills EKG, labs, UA, viral testing, CXR, ED bronch protocol ordered Full HPI, ROS and PE to be performed by primary ED provider. Medications Administered Discontinued Medications Generic Name Dose Route Start Last Admin Trade Name Freq PRN Reason Stop Dose Admin Acetaminophen 975 mg 09/15/23 17:46 09/15/23 18:04 Acetaminophen 325 Mg Tablet PO 09/15/23 17:47 975 mg ONCE ONE Administration Albuterol Sulfate 2.5 mg/ 0 mg 09/15/23 15:40 09/15/23 15:46 Albuterol/Ipratropium 3 ml INHALE 09/15/23 15:41 1 dose ONCE ONE Administration Ibuprofen 400 mg 09/15/23 17:46 09/15/23 18:04 Ibuprofen 400 Mg Tablet PO 09/15/23 17:47 400 mg ONCE ONE Administration Medical Decision Making Medical Decision Making MDM Narrative: 72-year-old female with presentation for what appears to be viral-like symptoms but patient does have underlying COPD and was recently treated for bronchitis. Patient's tachycardia likely secondary to albuterol treatment that she received at approximately 15:40 this afternoon. Patient otherwise is not appear to be in respiratory distress and is oxygenating well on room air. Reviewed all investigations and hematologic indices are negative for leukocytosis or left shift in there is a stable normocytic anemia without thrombocytopenia. Coagulation studies are within normal limits. Chemistry indices do not demonstrating AG/electrolyte or liver enzyme derangements. There is a detectable high sensitivity troponin and will obtain a 2nd 1 to ensure no rise as this is felt to be a demand response to elevated heart rate. BNP is chronically stable at 106 no lower extremity edema or bibasilar rales were noted. Patient is noted to have recently recovered from RSV infection and today's viral testing is negative for influenza/RSV/COVID-19. Chest x-ray does not demonstrate any venous congestion or infiltrate and otherwise my interpretation is in agreement with radiology's impression. Urinalysis is negative for UTI and heart rate has continued to improve, patient is feeling better and will go on a short course of steroids and strict instructions to follow-up with her primary care doctor. Differential Diagnosis Differential Diagnoses: The differential diagnosis associated with the presentation includes Please see the discussion above Admission/Observation Consideration of admission/observation: Escalation of care including admission/observation considered Please see the discussion above Lab Data MDM Lab Attestation statement: I reviewed the patient's lab results. Please see the discussion above 09/15/23 15:22 09/15/23 15:22 Labs: Lab Results 09/15/23 09/15/23 09/15/23 Range/Units 15:22 18:33 20:02 WBC 9.8 (4.8-10.8) X10*3/uL RBC 4.34 D (4.20-5.50) X10*6/uL Hgb 11.8 L (12.0-16.0) g/dl Hct 36.8 L (37.0-47.0) % MCV 84.8 (80.0-98.0) fL MCH 27.2 (27.0-33.0) pg MCHC 32.1 (31.0-35.0) g/dl RDW 15.1 (11.0-16.0) % Plt Count 267 (160-400) X10*3/uL MPV 9.3 L (9.4-12.3) fL Immature Gran % (Auto) 1.0 H (0.0-0.4) % Neut % (Auto) 67.3 (45-73) % Lymph % (Auto) 21.2 (20-40) % [place] % (Auto) 8.2 (2-11) % Eos % (Auto) 1.7 (0-4) % Baso % (Auto) 0.6 (0-2) % Lymph # (Auto) 2.1 (1.2-4.9) X10*3/uL [place] # (Auto) 0.8 (0.1-1.2) X10*3/uL Eos # (Auto) 0.2 (0.0-0.4) X10*3/uL Baso # (Auto) 0.1 (0.0-0.2) X10*3/uL Abs Immat Gran (auto) 0.10 H (0.00-0.03) X10*3/uL Absolute Neuts (auto) 6.6 (2.0-8.3) x10*3/uL Absolute Nucleated RBC 0.000 (0.0-0.012) X10*3/uL Nucleated RBC % (auto) 0.0 (0.0-0.2) /100WBC PT 12.9 (11.1-13.3) SEC INR 1.1 (0.9-1.1) Sodium 139 (135-145) mmol/L Potassium 4.0 (3.3-5.1) mmol/L Chloride 101 (96-108) mmol/L Carbon Dioxide 25 (22-29) mmol/L Anion Gap 17 (12-20) BUN 29 H (9-16) mg/dL Creatinine 1.12 (0.5-1.4) mg/dL Estim Creat Clear Calc 48.4 Estimated GFR 48 Random Glucose 140 H (60-115) mg/dL Calcium 9.4 D (8.4-10.2) mg/dL Magnesium 2.1 (1.6-2.6) mg/dL Total Bilirubin 0.4 (0.0-1.0) mg/dL Direct Bilirubin 0.1 (0.0-0.5) mg/dL AST 13 (5-31) U/L ALT 18 (0-31) U/L Alkaline Phosphatase 98 (39-117) U/L Troponin I High Sens 18.9 H D 18.6 H (<3.5-17.0) ng/L B-Natriuretic Peptide 106 H (<100) pg/mL Total Protein 6.7 (6.5-8.0) g/dL Albumin 3.8 (3.5-5.0) g/dL Urine Color Yellow Urine Appearance Clear Urine pH 5.0 (5.0-9.0) Ur Specific [place] >= 1.030 H (1.005-1.025) Urine Protein 30 (1+) H (Neg-Trace) mg/dL Urine Glucose (UA) >=1000 H (Negative) mg/dL Urine Ketones Negative (Negative) mg/dL Urine Blood Negative (Negative) Urine Nitrite Negative (Negative) Ur Leukocyte Esterase Negative (Negative) Influenza Type A (PCR) NEGATIVE (Negative) Influenza Type B (PCR) NEGATIVE (Negative) RSV RNA Qual (PCR) NEGATIVE (Negative) SARS-CoV-2 RNA (RT-PCR) NEGATIVE (Negative) Independent Interpretation I performed an independent interpretation of an: EKG Interpretation: Sinus tachycardia with PACs, HR-101, no STEMI, OK/QRS/QTC is within normal limits. Radiology Impression Discussion of test interpretation with radiology: I have reviewed the radiologist's reading. Radiologist Impression: Please see the discussion above External Record Review External record reviewed: Outpatient record, Prior outpatient labs and Prior outpatient radiology Chronic Conditions Patient?s care impacted by: Diabetes COPD Critical Care Time Critical Care Time Critical Care Time: Yes Total Critical Care Time: 45 Attestation: I personally attest to this time spent taking care of the patient. Discharge Plan Discharge Clinical Impression: Viral syndrome, COPD (chronic obstructive pulmonary disease) Patient Disposition: Home, Self-Care Instructions: COPD (Chronic Obstructive Pulmonary Disease) (ED), Chronic Bronchitis (ED), Viral Syndrome (ED) Additional Instructions: 1. Resume all home medications as prescribed. 2. Complete the short course of steroids that you have been prescribed. 3. Please follow-up with your primary care doctor in the next 1-2 days. Return to the ER for any worsening symptoms. Prescriptions: New prednisone 50 mg tablet 50 mg PO DAILY 4 Days Qty: 4 0RF No Action Jardiance 25 mg tablet 25 mg PO DAILY Qty: 90 1RF (DME) FreeStyle Lite Strips Strip See Rx Instructions .Route Qty: 100 3RF Rx Instructions: test blood sugar once a day metoprolol tartrate 50 mg tablet 50 mg PO BID Qty: 180 3RF (DME) FreeStyle Kelly 2 Sensor Kit See Rx Instructions .ROUTE .MEDSUPPLY Qty: 6 3RF Rx Instructions: As directed every 2 weeks clopidogrel 75 mg tablet 75 mg PO DAILY Qty: 90 1RF diltiazem HCl [Matzim LA] 300 mg tablet extended release 24 hr 300 mg PO DAILY Qty: 90 1RF citalopram 20 mg tablet 20 mg PO DAILY Qty: 90 1RF azithromycin 250 mg tablet See Rx Instructions PO .COMPLEX Qty: 6 0RF Rx Instructions: For 250 mg dose pack: take 500 mg today (day 1), then 250 mg for 4 days (days 2-5) PO (DME) walker Mis See Rx Instructions .Route Qty: 1 0RF Rx Instructions: As directed pantoprazole 40 mg tablet,delayed release (DR/EC) 40 mg PO BID ipratropium-albuterol 0.5 mg-3 mg(2.5 mg base)/3 mL solution for nebulization 3 ml inhalation BID PRN (Reason: sob) buspirone 5 mg tablet 5 mg PO BID melatonin 3 mg Tablet 3 mg PO BEDTIME loratadine 10 mg Tablet 10 mg PO DAILY cholecalciferol (vitamin D3) 25 mcg (1,000 unit) Tablet 25 mcg PO DAILY insulin lispro [Humalog U-100 Insulin] 100 unit/mL solution See Protocol subcut QIDACHS Protocol: Insulin Correction Scale Less than or equal to 110 ---- Give (units): 0 111 to 150 Give (units): 12 151 to 200 Give (units): 14 201 to 250 Give (units): 16 251 to 300 Give (units): 18 301 to 350 Give (units): 20 Greater than 350 Give (units): 20 Call MD if Blood Glucose > : 350 insulin glargine [Lantus Solostar U-100 Insulin] 100 unit/mL (3 mL) insulin pen 50 unit subcut BEDTIME dicyclomine 10 mg Capsule 10 mg PO TIDAC Qty: 90 0RF codeine-guaifenesin 10-100 mg/5 mL Liquid 10 ml PO Q6H PRN (Reason: cough) Qty: 120 0RF lidocaine [Lidocaine Pain Relief] 4 % Adhesive Patch,Medicated 1 patch transdermal DAILY Qty: 10 0RF Protocol: Apply to: Apply to: right flank docusate sodium 100 mg Capsule 100 mg PO BID PRN (Reason: Constipation) Qty: 30 0RF polyethylene glycol 3350 17 gram Powder In Packet 17 g PO BID Qty: 30 0RF acetaminophen 325 mg Tablet 650 mg PO Q6H PRN (Reason: pain) Qty: 30 0RF gabapentin 100 mg Capsule 100 mg PO DAILY PRN (Reason: pain) Qty: 10 0RF lisinopril 10 mg tablet 10 mg PO DAILY Qty: 30 0RF furosemide [Lasix] 20 mg tablet 20 mg PO DAILY Qty: 30 0RF albuterol sulfate [ProAir HFA] 90 mcg/actuation Hfa Aerosol Inhaler 2 puff INHALATION Q4H PRN (Reason: Shortness Of Breath) Hold Instructions: Resume on 06/29/23. Chloraseptic Sore Throat 6-10 mg Lozenge 1 tram mucous membrane Q2H PRN (Reason: Sore Throat) Qty: 18 0RF prednisone 20 mg tablet 20 mg PO DAILY Qty: 5 0RF Trulicity 1.5 mg/0.5 mL pen injector 1 mg subcut Q7D atorvastatin 80 mg tablet 80 mg PO QPM Qty: 90 2RF Eliquis 5 mg tablet 5 mg PO BID Hold Instructions: Resume on 06/30/23. hold until patient on iv heparin
--- NOTE | 2023-09-15 14:57 | ECG_ITS ---
Test Reason : CP/SOB Blood Pressure : / mmHG Vent. Rate : 101 BPM Atrial Rate : 101 BPM P-R Int : 168 ms QRS Dur : 074 ms QT Int : 352 ms P-R-T Axes : 040 020 091 degrees QTc Int : 456 ms Sinus tachycardia with Premature atrial complexes Abnormal QRS-T angle, consider primary T wave abnormality Abnormal ECG When compared with ECG of 30-AUG-2023 20:05, Nonspecific T wave abnormality now evident in Lateral leads Referred By: Roxanne Mojica Electronically Signed By:NELSON PLASCENCIA MD
[2023-09-15 15:27] LABS: MANUAL DIFF FLAG NO
[2023-09-15 15:29] LABS: Basophils Absolute Auto 0.1 X10*3/uL (0.0-0.2); Basophils Percent Auto 0.6 % (0-2); Eosinophils Absolute Auto 0.2 X10*3/uL (0.0-0.4); Eosinophils Percent Auto 1.7 % (0-4); Hematocrit 36.8 % (37.0-47.0); Hemoglobin 11.8 g/dl (12.0-16.0); Lymphocytes Absolute Auto 2.1 X10*3/uL (1.2-4.9); Lymphocytes Percent Auto 21.2 % (20-40); Mean Corpuscular HGB Conc 32.1 g/dl (31.0-35.0); Mean Corpuscular Hemoglobin 27.2 pg (27.0-33.0); Mean Corpuscular Volume 84.8 fL (80.0-98.0); Mean Platelet Volume 9.3 fL (9.4-12.3); Monocytes Absolute Auto 0.8 X10*3/uL (0.1-1.2); Monocytes Percent Auto 8.2 % (2-11); Neutrophils Absolute Auto 6.6 x10*3/uL (2.0-8.3); Neutrophils Percent Auto 67.3 % (45-73); Platelet Count 267 X10*3/uL (160-400); Red Blood Count 4.34 X10*6/uL (4.20-5.50); Red Cell Distribution Width 15.1 % (11.0-16.0); White Blood Count 9.8 X10*3/uL (4.8-10.8)
[2023-09-15 15:35] LABS: INTERNATIONAL NORM RATIO 1.1 (0.9-1.1); Prothrombin Time 12.9 SEC (11.1-13.3)
[2023-09-15 15:44] LABS: Alanine Aminotransferase 18 U/L (0-31); Albumin Level 3.8 g/dL (3.5-5.0); Alkaline Phosphatase 98 U/L (39-117); Anion Gap 17 (12-20); Aspartate Amino Transferase 13 U/L (5-31); Bilirubin Direct 0.1 mg/dL (0.0-0.5); Bilirubin Total 0.4 mg/dL (0.0-1.0); Blood Urea Nitrogen 29 mg/dL (9-16); Calcium 9.4 mg/dL (8.4-10.2); Carbon Dioxide 25 mmol/L (22-29); Chloride 101 mmol/L (96-108); Creatinine Clr Calc Pharmacy 48.4; Estimated Glomerular Filt Rate 48; Glucose Random 140 mg/dL (60-115); Magnesium 2.1 mg/dL (1.6-2.6); Sodium 139 mmol/L (135-145); Total Protein 6.7 g/dL (6.5-8.0)
[2023-09-15] MEDS: Albuterol Sulfate 2.5 MG, Albuterol/Iprat 2.5/0.5MG 3 ML 3 ML INHALE (15:46)
[2023-09-15 15:49] LABS: B Type Natriuretic Peptide 106 pg/mL (<100)
[2023-09-15 15:51] LABS: Troponin-I High Sensitivity 18.9 ng/L (<3.5-17.0)
[2023-09-15 16:08] LABS: Influenza A PCR NEGATIVE (Negative); Influenza B PCR NEGATIVE (Negative); Resp Syncy Virus RNA Qual PCR NEGATIVE (Negative); SARS COV2 PCR INHOUSE NEGATIVE (Negative)
[2023-09-15] MEDS: Ibuprofen 400 MG TABLET PO (18:04)
[2023-09-15] MEDS: Acetaminophen 325 MG TABLET 975 MG PO (18:04)
[2023-09-15 19:06] LABS: Troponin-I High Sensitivity 18.6 ng/L (<3.5-17.0)
--- NOTE | 2023-09-15 19:49 | PC.NURSE ---
Assumed care of pt at 19:30, assisted pt to bathroom. Offers no complaints at this time, resp even and unlabored, in no apparent distress.
[2023-09-15 20:10] LABS: Appearance Urine Clear; Color Urine Yellow; Glucose Urine UA >=1000 mg/dL (Negative); Leukocyte Esterase Urine Negative (Negative); Nitrite Urine Negative (Negative); Specific Gravity - Urine >= 1.030 (1.005-1.025); UMIC TRIGGER UACC YES; Urine Blood Negative (Negative); Urine Ketones Negative (Negative); Urine Protein 30 (1+) mg/dL (Neg-Trace)
[2023-09-15 20:13] LABS: Bacteria Urine None Seen (None Seen); RBC Urine 0-2 /HPF (0-2); WBC Urine 0-5 /HPF (0-5)
[2023-09-15] MEDS: predniSONE 10 MG TABLET 50 MG PO (21:25)
== END 2023-09-16 01:27 | disposition home or self-care (01) ==
PROVIDERS: Physician Assistant; Emergency Provider Student in an Organized Health Care Education/Training Program
DX: B34.9 Viral infection, unspecified (principal); J44.9 Chronic obstructive pulmonary disease, unspecified; Z20.822 Contact with and (suspected) exposure to COVID-19; Z20.828 Contact with and (suspected) exposure to other viral communicable diseases; Z79.01 Long term (current) use of anticoagulants; Z79.85 Long-term (current) use of injectable non-insulin antidiabetic drugs; Z79.4 Long term (current) use of insulin; Z79.02 Long term (current) use of antithrombotics/antiplatelets; Z79.899 Other long term (current) drug therapy; E11.22 Type 2 diabetes mellitus with diabetic chronic kidney disease; I12.9 Hypertensive chronic kidney disease with stage 1 through stage 4 chronic kidney disease, or unspecified chronic kidney disease; N18.30 Chronic kidney disease, stage 3 unspecified; E78.5 Hyperlipidemia, unspecified; I48.0 Paroxysmal atrial fibrillation; Z86.711 Personal history of pulmonary embolism; Z87.891 Personal history of nicotine dependence
CPT/HCPCS: 0241U; 36415; 71046; 80048; 80076; 81001; 83735; 83880; 84484; 85025; 85610; 93005; 94640; 99284; 99285

== ENCOUNTER → 2023-09-15 14:57 | Outpatient (BNV) | payer MEDICARE, SELFPAY | PROVIDERS: Emergency Provider Student in an Organized Health Care Education/Training Program; Visit Provider Internal Medicine Cardiovascular Disease | DX: I49.1 Atrial premature depolarization (principal); R94.31 Abnormal electrocardiogram [ECG] [EKG] | CPT/HCPCS: 93010 ==

== ENCOUNTER → 2023-09-17 23:59 | Outpatient (BNV) | payer MEDICARE, SELFPAY | PROVIDERS: Visit Provider Internal Medicine | DX: J44.1 Chronic obstructive pulmonary disease with (acute) exacerbation (principal); J44.0 Chronic obstructive pulmonary disease with (acute) lower respiratory infection | CPT/HCPCS: G0180 ==

== ENCOUNTER 2023-09-27 09:02 | Outpatient (AMB) | payer MEDICARE, SELFPAY ==
--- NOTE | 2023-09-27 09:02 | A.OFFPC_ITS ---
Vital Signs 09/27/23 09:03 Height 5 ft 4 in Weight 202 lb BMI 34.7 BP 112/62 Blood Pressure Location Lt brachial Position Sitting Pulse 87 Pulse Source Pulse Oximeter Pulse Oximetry (%) 98 Oxygen Delivery Method Room Air Intake Visit Reasons: Hospital follow up Intake Note: Pt is here today for Hospital follow up visit. Pt's daughter states that pt still has wheezing, chests congestion and tightness and sweats. Also, pt's glucose has been running high. Pt needs refill on Eliquis, Furosemide, Lisinopril, Buspirone and Pantoprazole. Allergies Latex, Natural Rubber Allergy (Severe, Verified 09/27/23 09:10) blisters Sulfa (Sulfonamide Antibiotics) [SULFA (SULFONAMIDE ANTIBIOTICS)] Allergy (Mild, Verified 09/27/23 09:10) ITCHING, rash nystatin Allergy (Unknown, Verified 09/27/23 09:10) rash isosorbide [From Imdur] Adverse Reaction (Unknown, Verified 09/27/23 09:10) HEADACHES, headache tizanidine Adverse Reaction (Unknown, Verified 09/27/23 09:10) weakness, Hellucination Medication List - Last Reconciled 09/27/23 by Amanda Leiva MD acetaminophen 650 mg (2 x 325 mg) PO Q6H PRN albuterol sulfate 90 mcg/actuation (ProAir HFA) 2 puffs inhalation Q4H PRN apixaban (Eliquis) 5 mg PO BID atorvastatin 80 mg PO QPM blood sugar diagnostic (FreeStyle Lite Strips) test blood sugar once a day buspirone 5 mg PO BID cholecalciferol (vitamin D3) 25 mcg PO DAILY citalopram 20 mg PO DAILY clopidogrel 75 mg PO DAILY dicyclomine 10 mg PO TIDAC diltiazem HCl ER (Matzim LA) 300 mg PO DAILY docusate sodium 100 mg PO BID PRN dulaglutide (Trulicity) 1 mg subcut Q7D empagliflozin (Jardiance) 25 mg PO DAILY flash glucose sensor (FreeStyle Kelly 2 Sensor kit) As directed every 2 weeks furosemide (Lasix) 20 mg PO DAILY gabapentin 100 mg PO DAILY PRN insulin glargine (Lantus Solostar U-100 Insulin) 50 units subcut BEDTIME insulin lispro (Humalog U-100 Insulin) See Protocol units subcut QIDACHS ipratropium-albuterol 0.5 mg-3 mg(2.5 mg base)/3 mL 3 mL inhalation BID PRN lidocaine 4% (Lidocaine Pain Relief) 1 patch See Protocol transdermal DAILY lisinopril 10 mg PO DAILY loratadine 10 mg PO DAILY melatonin 3 mg PO BEDTIME metoprolol tartrate 50 mg PO BID pantoprazole 40 mg PO BID polyethylene glycol 3350 17 grams PO BID walker As directed Tobacco use date assessed: 09/27/23 Fall risk assessment: 2 + Falls in past year Last assessed Fall Risk: 09/27/23 Dental Screening Dental Screen Date: 09/27/23 Did you have a dental visit in the last 12 months?: Yes Did you have a dental problem in the last 6 months where you did not have access to dental care?: No Was dental information given to patient?: Patient has dentist HPI Hospital follow up HPI Details Patient presents for the follow-up multiple hospitalizations since June for COPD/asthma exacerbation and coronary artery disease status post ARMANI placement for LCX 99% stenosis. Patient completed course of prednisone taper prescribed last week. She reports high glucose readings up to over 300s. Patient also reports baseline dyspnea on exertion and denies PND or orthopnea. She has been feeling generally weak. 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 Father No problems noted. Brother Substance use disorder Brother Substance use disorder Social History Household Members: Family Household Members Other:: 2 Housing: House Do you presently have visiting nurse or other home services: No (it's coming soon) Alcohol intake: former Patient Tobacco Use Status: Former Tobacco user Quit Date: 1993 Tobacco use type: Cigarette Cigarettes Per Day: 10 Years Smoked: 3 e-Cigarette/Vaping Use: Never Used Second Hand Smoke Exposure: No Advance Directives Date on File: 06/29/23 service: No Current occupational status: retired Cognitive needs: No Hearing needs: No Vision needs: No Questionnaire Thrive Questionnaire Date Thrive assessed: 08/30/23 AUDIT C Alcohol Use Questionnaire (AUDIT-C) 1. How often do you have a drink containing alcohol?: Never 3. How often do you have six or more drinks on one occasion?: Never Total Score: 0 DOMINIQUE-7 AMB Questionnaire DOMINIQUE-7 Date DOMINIQUE - 7 assessed: 02/05/23 Source: Developed by Drs. Jeronimo Wallis, Saige Barrios, Nj Will and colleagues, with an educational katharine from [employer]. Review of Systems Const All systems reviewed & are unremarkable except as noted in HPI and below Reports no additional complaints Eyes Reports no additional complaints ENT Reports no additional complaints Card Reports no additional complaints Resp Reports no additional complaints GI Reports no additional complaints Reports no additional complaints Physical exam (Primary Care) Vital Signs: Last Vital Signs Pulse 87 09/27/23 09:03 BP 112/62 09/27/23 09:03 Pulse Ox 98 09/27/23 09:03 Oxygen Delivery Method Room Air 09/27/23 09:03 BMI result Body Mass Index 34.7 Tobacco/Smoking Status: Tobacco use Status Tobacco use date assessed 09/27/23 09/27/23 09:12 Patient Tobacco Use Status Former Tobacco user 09/27/23 09:02 Tobacco use type Cigarette 09/27/23 09:02 e-Cigarette/Vaping Use Never Used 09/27/23 09:02 Thrive Assessment: Date of Thrive Assessment Date Thrive assessed 08/30/23 09/27/23 09:02 Const General: no acute distress HENMT Head: Yes normal to inspection Ears: hearing grossly normal bilaterally General nose exam: Normal external nose present Eyes General: appearance normal, both eyes and all related structures Neck Neck: Yes no lymphadenopathy and Yes supple Resp Other: upper airway stridor Effort & Inspection: normal respiratory effort Auscultation: clear to auscultation bilaterally Cardio Rhythm: regular rhythm Heart sounds: S1 normal heart sound present and S2 normal heart sound present GI Inspection: Yes normal to inspection Palpation (GI): Soft to palpation Percussion: Yes normal to percussion Auscultation: normal bowel sounds Assessment and Plan Assessment & Plan (1) Acute exacerbation of chronic obstructive pulmonary disease: Code(s): J44.1 - Chronic obstructive pulmonary disease with (acute) exacerbation Plan: Restart Symbicort and use ProAir as needed (2) Diabetes type 2, uncontrolled: Code(s): E11.65 - Type 2 diabetes mellitus with hyperglycemia Plan: Increase Lantus to 60 units and continue high dose Humalog sliding scale. Patient will increase Trulicity to 3 mg weekly and will continue Jardiance. Follow-up in 1 month with a fasting labs before (3) Obstructive sleep apnea: Comment: SHE HAS CHRONIC OBSTRUCTIVE SLEEP APNEA/HYPOVENTILATION SYNDROME. Code(s): G47.33 - Obstructive sleep apnea (adult) (pediatric) Plan: Continue Cpap (4) CAD (coronary artery disease): Comment: s/p ARMANI to LCX 06/28 Code(s): I25.10 - Atherosclerotic heart disease of [place] coronary artery without angina pectoris Plan: Continue current medications and follow-up with Cardiology (5) Tracheomalacia, acquired: Comment: s/p mesh placement f/u [facility] [place] Code(s): J39.8 - Other specified diseases of upper respiratory tract Orders: Orders Hemoglobin A1c 1 Month E11.65 - Type 2 diabetes mellitus with hyperglycemia, I25.10 - Atherosclerotic heart disease of [place] coronary artery without angina pectoris, J44.9 - Chronic obstructive pulmonary disease, unspecified B Type Natriuretic Peptide 1 Month E11.65 - Type 2 diabetes mellitus with hyperglycemia, I25.10 - Atherosclerotic heart disease of [place] coronary artery without angina pectoris, J44.9 - Chronic obstructive pulmonary disease, unspec ified Pulmonary Rehab Today J44.1 - Chronic obstructive pulmonary disease with (acute) exacerbation Comprehensive [place]. Panel Fast 1 Month E11.65 - Type 2 diabetes mellitus with hyperglycemia, I25.10 - Atherosclerotic heart disease of [place] coronary artery without angina pectoris, J44.9 - Chronic obstructive pulmonary disease, unspecified Complete Blood Count Auto Diff 1 Month E11.65 - Type 2 diabetes mellitus with hyperglycemia, I25.10 - Atherosclerotic heart disease of [place] coronary artery without angina pectoris, J44.9 - Chronic obstructive pulmonary disease, unspecified Lipid Panel 1 Month E11.65 - Type 2 diabetes mellitus with hyperglycemia, I25.10 - Atherosclerotic heart disease of [place] coronary artery without angina pectoris, J44.9 - Chronic obstructive pulmonary disease, unspecified Microalbumin, Random (w Creat) 1 Month E11.65 - Type 2 diabetes mellitus with hyperglycemia, I25.10 - Atherosclerotic heart disease of [place] coronary artery without angina pectoris, J44.9 - Chronic obstructive pulmonary disease, unspecified TSH reflex Free T4 1 Month E11.65 - Type 2 diabetes mellitus with hyperglycemia, I25.10 - Atherosclerotic heart disease of [place] coronary artery without angina pectoris, J44.9 - Chronic obstructive pulmonary disease, unspecified Medications: New apixaban (Eliquis) 5 mg PO BID 180 tabs 3RF pantoprazole 40 mg PO BID 180 tabs 3RF dulaglutide (Trulicity) 3 mg (0.5 mL) subcut QWEEK 6 mL 3RF buspirone 5 mg PO BID 180 tabs 3RF Symbicort 160-4.5 mcg/actuation (budesonide-formoterol) 1 inh inhalation BID 10.2 grams 3RF NS Changed From insulin glargine (Lantus Solostar U-100 Insulin) 50 units subcut BEDTIME To insulin glargine (Lantus Solostar U-100 Insulin) 60 units subcut BEDTIME Refilled furosemide (Lasix) 20 mg PO DAILY 90 tabs 3RF lisinopril 10 mg PO DAILY 90 tabs 3RF Coding Level of Care Code Est Pt Level 4 (16838) Diagnoses Acute exacerbation of chronic obstructive pulmonary disease J44.1 Diabetes type 2, uncontrolled E11.65 Obstructive sleep apnea G47.33 CAD (coronary artery disease) I25.10 Tracheomalacia, acquired J39.8
[2023-09-27 09:03] VITALS: BP 112/62; PULSE 87; O2SAT 98; BMI 34.7
== END 2023-09-27 10:32 | disposition home or self-care (01) ==
PROVIDERS: PCP Internal Medicine; Visit Provider Internal Medicine
DX: J44.1 Chronic obstructive pulmonary disease with (acute) exacerbation (principal); E11.65 Type 2 diabetes mellitus with hyperglycemia; G47.33 Obstructive sleep apnea (adult) (pediatric); I25.10 Atherosclerotic heart disease of native coronary artery without angina pectoris; J39.8 Other specified diseases of upper respiratory tract
CPT/HCPCS: 99214

== ENCOUNTER 2023-11-27 16:28 | Inpatient (IN) | payer MEDICARE, SELFPAY ==
--- NOTE | ~2023-11-27 | XR_ITS ---
EXAMINATION: XR CHEST 2 VIEWS CLINICAL INFORMATION: Chest pain. COMPARISON: Chest radiographs dated 09/15/2023; CTA chest dated 08/17/2023. TECHNIQUE: Frontal and lateral views of the chest were obtained. FINDINGS: The heart, great vessels, pulmonary vasculature and mediastinum are normal. The lungs show no focal infiltrate, effusion or pneumothorax. There is stable chronic bilateral mid and lower lung field scar/subsegmental atelectasis. There is chronic bilateral pleural thickening, right greater than left. There is no acute osseous abnormality. Cervicothoracic orthopedic hardware is noted. XR/XR chest 2V IMPRESSION: There is chronic pleural and parenchymal scarring. No focal infiltrate or congestive heart failure is seen.
--- NOTE | ~2023-11-27 | CT_ITS ---
EXAMINATION: CT ABDOMEN AND PELVIS WITHOUT CONTRAST CLINICAL INFORMATION: Abdominal pain COMPARISON: 05/12/2023 TECHNIQUE: Multidetector volumetric imaging was performed from the superior aspect of the liver through the pubic symphysis. Sagittal and coronal reformatted images were obtained on the technologist's workstation. This CT examination was performed using dose optimization techniques as appropriate, variously including the following: *Automated exposure control *Adjustment of mA and/or kV according to patient size (this includes techniques or standardized protocols for targeted exams where dose is matched to indication/reason for exam; i.e. extremities or head) *Use of iterative reconstruction technique DLP: 735 mGy-cm FINDINGS: LUNG BASES: Mild dependent atelectasis. LIVER, GALLBLADDER, AND BILIARY TREE: The liver is normal in size, shape, and attenuation. No focal hepatic lesion or biliary ductal dilatation is present. Status post cholecystectomy. PANCREAS: Unremarkable. SPLEEN: Unremarkable. ADRENAL GLANDS: Unremarkable. KIDNEYS AND URETERS: The left kidney is normal in size and contour. The right kidney is atrophic. No hydronephrosis or hydroureter. No nephrolithiasis. BLADDER: Unremarkable. GASTROINTESTINAL TRACT: Stomach, small bowel, and colon are normal in caliber. No bowel wall thickening or surrounding inflammatory changes. Moderate colonic diverticulosis without evidence of acute diverticulitis. Numerous dystrophic calcifications in the mesentery and peritoneum may correspond to chronic changes of prior torsed epiploic appendagitis. Appendix is normal. No intraperitoneal free fluid or free air. ABDOMINAL WALL: No significant hernia is appreciated. LYMPH NODES: Normal. VASCULAR: Marked atherosclerotic disease is present in the abdominal aorta and at the origins of the bilateral common iliac arteries. No aneurysmal dilatation. PELVIC VISCERA: The uterus and adnexa are unremarkable. OSSEOUS STRUCTURES: Moderate multilevel degenerative disc disease with grade 1 anterolisthesis of L4 on L5 and marked facet arthropathy at L4-L5. No acute osseous findings. CT/CT abdomen pelvis wo IV con IMPRESSION: 1. No acute intra-abdominal or intrapelvic abnormalities. 2. Moderate colonic diverticulosis without evidence of acute diverticulitis. 3. Atrophic right kidney.
--- NOTE | ~2023-11-27 | CT_ITS ---
EXAMINATION: CT ABDOMEN AND PELVIS WITHOUT CONTRAST CLINICAL INFORMATION: Abdominal pain COMPARISON: None available. TECHNIQUE: Multidetector volumetric imaging was performed from the superior aspect of the liver through the pubic symphysis. Sagittal and coronal reformatted images were obtained on the technologist's workstation. This CT examination was performed using dose optimization techniques as appropriate, variously including the following: *Automated exposure control *Adjustment of mA and/or kV according to patient size (this includes techniques or standardized protocols for targeted exams where dose is matched to indication/reason for exam; i.e. extremities or head) *Use of iterative reconstruction technique DLP: 613 mGy-cm FINDINGS: LUNG BASES: The lung bases are clear. Heart size is normal. LIVER, GALLBLADDER, AND BILIARY TREE: The liver is normal in size, shape, and attenuation. No focal hepatic lesion or biliary ductal dilatation is present. The gallbladder has been surgically removed. PANCREAS: Unremarkable. SPLEEN: Unremarkable. ADRENAL GLANDS: Unremarkable. KIDNEYS AND URETERS: The right kidney is small and atrophic. The left kidney is normal size, shape and position. No radiopaque renal calculi or hydronephrosis seen on either side. BLADDER: Unremarkable. GASTROINTESTINAL TRACT: There is scattered stool, diverticuli and gas seen throughout the colon without distention. There is no evidence of diverticulitis. The small bowel loops are normal caliber. Appendix is normal caliber. No free air or free fluid seen. No free air or free fluid seen. ABDOMINAL WALL: No significant hernia is appreciated. LYMPH NODES: Normal. VASCULAR: There is atherosclerotic changes of abdominal aorta without aneurysmal dilatation. The largest abdominal diameter is 2.3 cm sagittal image 92/7. PELVIC VISCERA: The uterus is anteverted and appears unremarkable. No adnexal mass, abnormal pelvic lymph nodes or free fluid. OSSEOUS STRUCTURES: There is grade 1 anterolisthesis L4 over L5. No aggressive lytic or sclerotic process seen. CT/CT abdomen pelvis wo IV con IMPRESSION: No significant abnormality. Fleischner guidelines were followed.
--- NOTE | 2023-11-27 16:30 | ECG_ITS ---
Test Reason : chest pain Blood Pressure : / mmHG Vent. Rate : 086 BPM Atrial Rate : 086 BPM P-R Int : 182 ms QRS Dur : 076 ms QT Int : 384 ms P-R-T Axes : -09 112 148 degrees QTc Int : 459 ms Normal sinus rhythm Right axis deviation Low voltage QRS Abnormal ECG When compared with ECG of 15-SEP-2023 15:11, Premature atrial complexes are no longer Present QRS axis Shifted right Referred By: Judith Shultz Electronically Signed By:SCOTTIE MONROY
[2023-11-27 16:39] VITALS: BP 136/35; PULSE 87; RESP 18; TEMP 36.8; O2SAT 96; BMI 34.0
--- NOTE | 2023-11-27 16:39 | ED_ITS ---
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 Patient states that while she was sitting watching television, she developed midsternal chest pain that has been constant, worsening with movement as well as with ambulation. She reports that yesterday she was very concerned with walking as her chest worsened significantly and developed shortness of breath. She states that she was fearful of being alone by herself as she was afraid that she was not going to make it through the day given her symptoms. She states that the pain radiated down both of her arms and into her neck. She states that the pain has been constant, waxing and waning in severity. She reports that days prior she was in her usual state of health. Denies any recent fevers, chills, palpitations, abdominal pain, nausea, vomiting. She endorses some diarrhea. MD complaint: Chest pain, shortness of breath Onset (ago): day(s) Radiation: back Severity scale (1-10): 8 Quality: stabbing Pain Consistency: constant Relieving factors: immobilization Exacerbating factors: movement Associated symptoms: chest pain and shortness of breath Related Data Home Medications Medication Instructions Recorded Confirmed albuterol sulfate 90 mcg/actuation 2 puff inhalation Q4H PRN 06/25/23 09/27/23 aerosol inhaler (ProAir HFA) Shortness Of Breath cholecalciferol (vitamin D3) 25 25 mcg PO DAILY 08/11/23 09/27/23 mcg (1,000 unit) tablet ipratropium 0.5 mg-albuterol 3 mg 3 ml inhalation BID PRN sob 08/11/23 09/27/23 (2.5 mg base)/3 mL nebulization soln loratadine 10 mg tablet 10 mg PO DAILY 08/11/23 09/27/23 melatonin 3 mg tablet 3 mg PO BEDTIME 08/11/23 09/27/23 insulin glargine 100 unit/mL (3 60 unit subcut BEDTIME 09/27/23 09/27/23 mL) subcutaneous pen (Lantus Solostar U-100 Insulin) budesonide-formoterol HFA 160 1 puff inhalation BID 11/28/23 11/28/23 mcg-4.5 mcg/actuation aerosol inhaler (Symbicort) buspirone 5 mg tablet 5 mg PO BID 11/28/23 11/28/23 furosemide 20 mg tablet 20 mg PO DAILY 11/28/23 11/28/23 insulin glargine 100 unit/mL (3 15 unit subcut BEDTIME 11/28/23 11/28/23 mL) subcutaneous pen (Lantus Solostar U-100 Insulin) lisinopril 10 mg tablet 10 mg PO DAILY 11/28/23 11/28/23 metoprolol tartrate 50 mg tablet 50 mg PO BID 11/28/23 11/28/23 pantoprazole 40 mg tablet,delayed 40 mg PO BID 11/28/23 11/28/23 release Previous Rx's Medication Instructions Recorded walker #1 ea 02/28/23 blood sugar diagnostic (FreeStyle #100 ea 03/26/23 Lite Strips) metoprolol tartrate 50 mg tablet 50 mg PO BID #180 tabs 04/21/23 flash glucose sensor (FreeStyle #6 ea 05/14/23 Kelly 2 Sensor kit) dicyclomine 10 mg capsule 10 mg PO TIDAC #90 caps 08/14/23 acetaminophen 325 mg tablet 650 mg (2 x 325 mg) PO Q6H PRN 08/22/23 pain #30 tabs docusate sodium 100 mg capsule 100 mg PO BID PRN Constipation #30 08/22/23 caps gabapentin 100 mg capsule 100 mg PO DAILY PRN pain #10 caps 08/22/23 lidocaine 4 % topical patch 1 patch transdermal DAILY #10 ea 08/22/23 (Lidocaine Pain Relief) polyethylene glycol 3350 17 gram 17 g PO BID #30 ea 08/22/23 oral powder packet citalopram 20 mg tablet 20 mg PO DAILY #90 tabs 08/27/23 clopidogrel 75 mg tablet 75 mg PO DAILY #90 tabs 08/27/23 diltiazem HCl 300 mg 300 mg PO DAILY #90 tabs 08/27/23 tablet,extended release 24 hr (Matzim [place]) empagliflozin 25 mg tablet 25 mg PO DAILY #90 tabs 09/21/23 (Jardiance) Symbicort 160 mcg-4.5 1 inh inhalation BID #10.2 grams 09/27/23 mcg/actuation HFA aerosol inhaler (budesonide-formoterol) apixaban 5 mg tablet (Eliquis) 5 mg PO BID #180 tabs 09/27/23 buspirone 5 mg tablet 5 mg PO BID #180 tabs 09/27/23 dulaglutide 3 mg/0.5 mL 3 mg (0.5 mL) subcut QWEEK #6 mL 09/27/23 subcutaneous pen injector (Trulicity) furosemide 20 mg tablet (Lasix) 20 mg PO DAILY #90 tabs 09/27/23 lisinopril 10 mg tablet 10 mg PO DAILY #90 tabs 09/27/23 pantoprazole 40 mg tablet,delayed 40 mg PO BID #180 tabs 09/27/23 release insulin lispro 100 unit/mL 1 sliding scale dose subcut 10/13/23 subcutaneous pen (Humalog KwikPen QIDACHS #15 mL (U-100) Insulin) atorvastatin 80 mg tablet 80 mg PO QPM #90 tabs 11/07/23 Allergies Allergy/AdvReac Type Severity Reaction Status Date / Time Latex, Natural Rubber Allergy Severe blisters Verified 11/27/23 16:39 Sulfa (Sulfonamide Allergy Mild ITCHING, Verified 11/27/23 16:39 Antibiotics) rash [SULFA (SULFONAMIDE ANTIBIOTICS)] nystatin Allergy Unknown rash Verified 11/27/23 16:39 isosorbide [From Imdur] AdvReac Unknown HEADACHES, Verified 11/27/23 16:39 headache tizanidine AdvReac Unknown weakness, Verified 11/27/23 16:39 Hellucination Review of Systems 2 Review of Systems: Yes all other systems are reviewed and are negative Constitutional: Constitutional: Reports as per [facility] Past Medical History Attestation statement: The following information was validated with the patient. 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 Father No problems noted. Brother Substance use disorder Brother Substance use disorder Social History Social History Household Members: Family Household Members Other:: 2 Housing: House Do you presently have visiting nurse or other home services: No (it's coming soon) Alcohol intake: former Patient Tobacco Use Status: Former Tobacco user Quit Date: 1993 Tobacco use type: Cigarette Cigarettes Per Day: 10 Years Smoked: 3 Smoked in Last 30 Days: No e-Cigarette/Vaping Use: Never Used Second Hand Smoke Exposure: No Use of substances other than those prescribed or required for medical reasons: No Advance Directives: Yes Advance Directives on File: Yes Advance Directives Date on File: 06/29/23 Nutrition Risks: No Nutritional Risk service: No Current occupational status: retired Cognitive needs: No Hearing needs: No Vision needs: No Physical Exam ED Vital Signs: Vital Signs - 24 hr 11/27/23 16:39 11/27/23 17:45 11/27/23 20:57 Temperature 98.3 F 98.2 F Pulse Rate 87 88 82 Respiratory Rate 18 19 15 Blood Pressure 136/35 L 147/38 H 169/46 H Pulse Oximetry 96 98 98 Oxygen Delivery Method Room Air Room Air Room Air 11/27/23 22:38 Temperature 98.0 F Pulse Rate 90 Respiratory Rate 20 Blood Pressure 145/37 H Pulse Oximetry 96 Oxygen Delivery Method Room Air BMI result Body Mass Index 34.0 Const General: cooperative, comfortable and no acute distress Orientation/consciousness: patient oriented x3 Limitations: no limitations HENMT Head: Yes normal to inspection, Yes normocephalic and Yes atraumatic Ears: hearing grossly normal bilaterally General nose exam: Normal external nose present Face and sinus: Yes normal facial exam Mouth: Normal oral and palatal mucosa present, oropharynx normal and moist mucous membranes Throat: Yes posterior oropharynx normal Eyes General: appearance normal, both eyes and all related structures Eyelids: Yes eyelids normal Conjunctivae: conjunctivae normal Sclerae: sclerae normal Pupils: Equal, round and reactive pupils present EOM: EOMs intact bilaterally Neck Neck: Yes normal visual inspection, Yes full ROM and Yes no lymphadenopathy Lymphatic: no lymphadenopathy noted Chest Chest palpation & inspection: normal inspection of the chest Resp Effort & Inspection: normal respiratory effort and able to speak in complete sentences Auscultation: clear to auscultation bilaterally, no crackles, no rales, no rhonchi and no wheezes Cardio Rate: regular rate Rhythm: regular rhythm Heart sounds: S1 normal heart sound present and S2 normal heart sound present GI Inspection: Yes normal to inspection Skin General skin exam: no rashes or lesions noted Trauma: no lacerations or abrasions Wounds: no wounds Neuro General: patient oriented x3 and moves all extremities Cranial nerves: Yes Equal, round and reactive pupils present Extrem General: Yes normal to inspection Right upper extremity: normal to inspection Left upper extremity: normal to inspection Right lower extremity: normal to inspection Left lower extremity: normal to inspection Course Course Course Narrative: RME:?73 yo female w/ hx of COPD, CVD, HTN, ALYSIA, T2DM, ND x2 w/ stent placed 1 yr ago here for eval of intermittent mid sternal chest pain x hours. admits to increased lethargy and body aches. pcp advised to come to ED. denies fever, chills, sore throat, LE pain/swelling, n/v. PE: audible stridor however lungs CTA b/l. bs diminished. labs, ekg, cxr, viral serology ordered. Full HPI, ROS and PE to be performed by the primary ED provider. Reevaluation(s) Reevaluation #1: Patient with AG with a creatinine of 1.79, BUN 28. Will hydrate with 500 cc of normal saline. Chest x-ray unremarkable. Will medicate with morphine 4 mg IV. Will continue to monitor. Patient has a heart score of 7. Pending repeat troponin. Time: 18:55 Reevaluation #2: Repeat troponin returns, 5.8. Patient re-evaluated, patient experiencing abdominal pain, on examination, patient has tenderness palpation in the epigastrium and right upper quadrant she also has diffuse tenderness throughout. Given that she has an AG of 1.7, and GFR of 28, as well as a BNP of 126, will have to obtain CT abdomen and pelvis without IV contrast. Time: 23:00 Reevaluation #3: CT abdomen and pelvis revealing no acute intra-abdominal or intra abnormalities, moderate colonic diverticulosis without evidence of acute diverticulitis. Atrophic right kidney. Given that she is still symptomatic despite receiving IV morphine, will admit to hospital medicine for AG and angina. Transfer of care initiated. Time: 00:07 Medications Administered Generic Name Dose Route Start Last Admin Trade Name Freq PRN Reason Stop Dose Admin Hydromorphone HCl 0.5 mg 11/28/23 00:55 11/28/23 02:17 Hydromorphone Hcl 0.5 Mg/0.5 Ml Syringe IVPUSH 0.5 mg Q4H PRN Administration Pain, Severe (Pain Scale 7-10) Protocol Insulin Glargine 15 unit 11/28/23 01:15 11/28/23 02:29 Insulin Glargine,Hum.Rec.Anlog 100 Unit/Ml 10 Ml Vial SUBCUT 15 unit BEDTIME LOU Administration Insulin Human Lispro 0 unit 11/28/23 01:10 11/28/23 02:28 Insulin Lispro 100 Unit/Ml 3 Ml Vial SUBCUT 2 unit QIDACHS LOU Administration Protocol Pantoprazole Sodium 40 mg 11/28/23 01:00 11/28/23 02:21 Pantoprazole Sodium 40 Mg/10 Ml Vial IVPUSH 40 mg DAILY@0630 LOU Administration Discontinued Medications Generic Name Dose Route Start Last Admin Trade Name Freq PRN Reason Stop Dose Admin Sodium Chloride 500 mls @ 500 mls/hr 11/27/23 18:49 11/27/23 20:08 Ns IV 11/27/23 19:48 Infused .Q1H ONE Infusion Sodium Chloride 500 mls @ 500 mls/hr 11/28/23 00:15 11/28/23 01:58 Ns IV 11/28/23 01:14 Infused .Q1H ONE Infusion Morphine Sulfate 4 mg 11/27/23 18:49 11/27/23 18:57 Morphine Sulfate 4 Mg/Ml Cartridge IVPUSH 11/27/23 18:50 4 mg ONCE ONE Administration Protocol Morphine Sulfate 4 mg 11/27/23 21:24 11/27/23 21:32 Morphine Sulfate 4 Mg/Ml Cartridge IVPUSH 11/27/23 21:25 4 mg ONCE ONE Administration Protocol Medical Decision Making Medical Decision Making [facility] Narrative: This is a 73-year-old female, with a history of ND x2 with stent on Eliquis, hyperlipidemia, hypertension, and diabetes, who presents emergency department with complaints of chest pain and shortness of breast since yesterday. On arrival, vital signs within normal limits. She is alert and oriented and appears comfortable. She does have tenderness to palpation along her anterior chest wall. Patient describes her chest pain as a sharp pain that worsens with movement and with deep inspiration. Patient has a significant past cardiac history, therefore symptoms are concerning. Differential diagnoses include ACS, ND, NSTEMI, electrolyte derangement, pneumonia, bronchitis, pneumothorax. Initial EKG revealing normal sinus rhythm there is a inverted P wave in V3 and V4, which is seen on previous EKG. Plan: Labs, EKG, chest x-ray, viral swabs Differential Diagnosis Differential Diagnoses: The differential diagnosis associated with the presentation includes See above Consult Healthcare Provider Management of the patient was discussed with: Hospitalist Lab Data [facility] Lab Attestation statement: I reviewed the patient's lab results. Slight leukocytosis at 11.3, microcytic anemia noted, creatinine elevated at 1.75, BUN elevated at 25. Hyperglycemia noted at 176. Alk phos is elevated at 184. BNP 126. Negative COVID, flu, RSV 11/28/23 01:24 11/28/23 01:24 Labs: Lab Results 11/27/23 11/27/23 Range/Units 17:55 21:06 WBC 11.3 H (4.8-10.8) X10*3/uL RBC 4.43 (4.20-5.50) X10*6/uL Hgb 10.0 L (12.0-16.0) g/dl Hct 33.0 L (37.0-47.0) % MCV 74.5 L (80.0-98.0) fL MCH 22.6 L (27.0-33.0) pg MCHC 30.3 L (31.0-35.0) g/dl RDW 16.6 H (11.0-16.0) % Plt Count 364 D (160-400) X10*3/uL MPV 9.5 (9.4-12.3) fL Immature Gran % (Auto) 0.9 H (0.0-0.4) % Neut % (Auto) 71.6 (45-73) % Lymph % (Auto) 16.2 L (20-40) % [place] % (Auto) 6.6 (2-11) % Eos % (Auto) 3.8 (0-4) % Baso % (Auto) 0.9 (0-2) % Lymph # (Auto) 1.8 (1.2-4.9) X10*3/uL [place] # (Auto) 0.8 (0.1-1.2) X10*3/uL Eos # (Auto) 0.4 (0.0-0.4) X10*3/uL Baso # (Auto) 0.1 (0.0-0.2) X10*3/uL Abs Immat Gran (auto) 0.10 H (0.00-0.03) X10*3/uL Absolute Neuts (auto) 8.1 (2.0-8.3) x10*3/uL Absolute Nucleated RBC 0.000 (0.0-0.012) X10*3/uL Nucleated RBC % (auto) 0.0 (0.0-0.2) /100WBC Sodium 136 (135-145) mmol/L Potassium 4.0 (3.3-5.1) mmol/L Chloride 98 (96-108) mmol/L Carbon Dioxide 25 (22-29) mmol/L Anion Gap 17 (12-20) BUN 28 H (9-16) mg/dL Creatinine 1.79 H (0.5-1.4) mg/dL Estim Creat Clear Calc 29.4 Estimated GFR 28 Random Glucose 294 H (60-115) mg/dL Calcium 9.0 (8.4-10.2) mg/dL Magnesium 1.8 (1.6-2.6) mg/dL Total Bilirubin 0.5 (0.0-1.0) mg/dL AST 12 (5-31) U/L ALT 12 (0-31) U/L Alkaline Phosphatase 138 H (39-117) U/L Troponin I High Sens 6.3 D 5.8 (<3.5-17.0) ng/L B-Natriuretic Peptide 126 H (<100) pg/mL Total Protein 7.2 (6.5-8.0) g/dL Albumin 4.0 (3.5-5.0) g/dL Lipase 25 (8-78) U/L Influenza Type A (PCR) NEGATIVE (Negative) Influenza Type B (PCR) NEGATIVE (Negative) RSV RNA Qual (PCR) NEGATIVE (Negative) SARS-CoV-2 RNA (RT-PCR) NEGATIVE (Negative) Radiology Impression Discussion of test interpretation with radiology: I have reviewed the radiologist's reading. Radiologist Impression: FINDINGS: LUNG BASES: Mild dependent atelectasis. LIVER, GALLBLADDER, AND BILIARY TREE: The liver is normal in size, shape, and attenuation. No focal hepatic lesion or biliary ductal dilatation is present. Status post cholecystectomy. PANCREAS: Unremarkable. SPLEEN: Unremarkable. ADRENAL GLANDS: Unremarkable. KIDNEYS AND URETERS: The left kidney is normal in size and contour. The right kidney is atrophic. No hydronephrosis or hydroureter. No nephrolithiasis. BLADDER: Unremarkable. GASTROINTESTINAL TRACT: Stomach, small bowel, and colon are normal in caliber. No bowel wall thickening or surrounding inflammatory changes. Moderate colonic diverticulosis without evidence of acute diverticulitis. Numerous dystrophic calcifications in the mesentery and peritoneum may correspond to chronic changes of prior torsed epiploic appendagitis. Appendix is normal. No intraperitoneal free fluid or free air. ABDOMINAL WALL: No significant hernia is appreciated. LYMPH NODES: Normal. VASCULAR: Marked atherosclerotic disease is present in the abdominal aorta and at the origins of the bilateral common iliac arteries. No aneurysmal dilatation. PELVIC VISCERA: The uterus and adnexa are unremarkable. OSSEOUS STRUCTURES: Moderate multilevel degenerative disc disease with grade 1 anterolisthesis of L4 on L5 and marked facet arthropathy at L4-L5. No acute osseous findings. CT/CT abdomen pelvis wo IV con IMPRESSION: 1. No acute intra-abdominal or intrapelvic abnormalities. 2. Moderate colonic diverticulosis without evidence of acute diverticulitis. 3. Atrophic right kidney. Dictated By: n Signed By: <Electronica EXAMINATION: XR CHEST 2 VIEWS CLINICAL INFORMATION: Chest pain. COMPARISON: Chest radiographs dated 09/15/2023; CTA chest dated 08/17/2023. TECHNIQUE: Frontal and lateral views of the chest were obtained. FINDINGS: The heart, great vessels, pulmonary vasculature and mediastinum are normal. The lungs show no focal infiltrate, effusion or pneumothorax. There is stable chronic bilateral mid and lower lung field scar/subsegmental atelectasis. There is chronic bilateral pleural thickening, right greater than left. There is no acute osseous abnormality. Cervicothoracic orthopedic hardware is noted. XR/XR chest 2V IMPRESSION: There is chronic pleural and parenchymal scarring. No focal infiltrate or congestive heart failure is seen. Dictated By: Norberto Mane MD Signed By: <Electronically signed by Norberto Mane MD in OV> Chronic Conditions Patient?s care impacted by: Diabetes and Hypertension Scores Heart Score History: -2- highly suspicious ECG: -1- non specific repolarization disturbance Age: -2- > or = 65 Risk factory: -2- 3 or more risk factors or treated atherosclerosis Troponin: -0- < or = normal limit Score: 7 Risk: 50.1% Critical Care Time Critical Care Time Critical Care Time: Yes Total Critical Care Time: 35 Attestation: I have personally provided critical care time exclusive of time spent on separately billable procedures. Time includes review of lab data, radiology results, discussion with consultants, and monitoring for potential decompensation. Intervention performed as documented. Discharge Plan Discharge Clinical Impression: AG (acute kidney injury), Angina at rest Patient Disposition: Admitted As Inpatient Interventions: Admission Worksheet (ED) Last Done: 11/28/23 02:02
[2023-11-27 17:45] VITALS: BP 147/38; PULSE 88; RESP 19; TEMP 36.8; O2SAT 98
--- NOTE | 2023-11-27 17:58 | PC.NURSE ---
Pt coming from home, reports substernal CP since yesterday afternoon, describes as heavy pressure, 8/10 that radiates to her right upper shoulder and right side of neck. Pt also reports SOB with exertion and overall not feeling well. Pt has hx of two MIs with stent placements. Pt denies any recent illnesses, fever, cough, N/V/D. Pt is alert and oriented, breathing even and slightly labored with long periods of speaking. Skin WNL. Pt placed on bedside proofer, NSR. VSS. IV established in the right forearm 20G.
[2023-11-27 18:00] LABS: MANUAL DIFF FLAG NO
[2023-11-27 18:17] LABS: Basophils Absolute Auto 0.1 X10*3/uL (0.0-0.2); Basophils Percent Auto 0.9 % (0-2); Eosinophils Absolute Auto 0.4 X10*3/uL (0.0-0.4); Eosinophils Percent Auto 3.8 % (0-4); Imm Gran Pct Auto 0.9 % (0.0-0.4); Lymphocytes Absolute Auto 1.8 X10*3/uL (1.2-4.9); Lymphocytes Percent Auto 16.2 % (20-40); Mean Corpuscular HGB Conc 30.3 g/dl (31.0-35.0); Mean Corpuscular Hemoglobin 22.6 pg (27.0-33.0); Mean Corpuscular Volume 74.5 fL (80.0-98.0); Mean Platelet Volume 9.5 fL (9.4-12.3); Monocytes Absolute Auto 0.8 X10*3/uL (0.1-1.2); Monocytes Percent Auto 6.6 % (2-11); Neutrophils Absolute Auto 8.1 x10*3/uL (2.0-8.3); Neutrophils Percent Auto 71.6 % (45-73); Platelet Count 364 X10*3/uL (160-400); Red Blood Count 4.43 X10*6/uL (4.20-5.50); Red Cell Distribution Width 16.6 % (11.0-16.0); White Blood Count 11.3 X10*3/uL (4.8-10.8)
[2023-11-27 18:23] LABS: Alanine Aminotransferase 12 U/L (0-31); Alkaline Phosphatase 138 U/L (39-117); Anion Gap 17 (12-20); Aspartate Amino Transferase 12 U/L (5-31); Bilirubin Total 0.5 mg/dL (0.0-1.0); Blood Urea Nitrogen 28 mg/dL (9-16); Carbon Dioxide 25 mmol/L (22-29); Chloride 98 mmol/L (96-108); Creatinine Clr Calc Pharmacy 29.4; Estimated Glomerular Filt Rate 28; Glucose Random 294 mg/dL (60-115); Lipase 25 U/L (8-78); Magnesium 1.8 mg/dL (1.6-2.6); Sodium 136 mmol/L (135-145); Total Protein 7.2 g/dL (6.5-8.0)
[2023-11-27 18:24] LABS: Troponin-I High Sensitivity 6.3 ng/L (<3.5-17.0)
[2023-11-27 18:37] LABS: Influenza A PCR NEGATIVE (Negative); Influenza B PCR NEGATIVE (Negative); Resp Syncy Virus RNA Qual PCR NEGATIVE (Negative); SARS COV2 PCR INHOUSE NEGATIVE (Negative)
[2023-11-27] MEDS: Morphine Sulfate 4 MG/ML CARTRIDGE IVPUSH ×2 (18:57→21:32)
[2023-11-27] MEDS: 0.9 % Sodium Chloride 500 ML IV (19:00)
[2023-11-27 19:15] LABS: B Type Natriuretic Peptide 126 pg/mL (<100)
[2023-11-27 20:57] VITALS: BP 169/46; PULSE 82; RESP 15; O2SAT 98
[2023-11-27 21:31] LABS: Troponin-I High Sensitivity 5.8 ng/L (<3.5-17.0)
[2023-11-27 22:38] VITALS: BP 145/37; PULSE 90; RESP 20; TEMP 36.7; O2SAT 96
[2023-11-28] VITALS (10 sets, daily range): BP systolic 140–176; BP diastolic 62–74; PULSE 79–97; RESP 15–20; TEMP 35.8–37.1; O2SAT 94–97
--- NOTE | 2023-11-28 | ECG_ITS ---
Test Reason : chest pain Blood Pressure : / mmHG Vent. Rate : 084 BPM Atrial Rate : 084 BPM P-R Int : 194 ms QRS Dur : 078 ms QT Int : 380 ms P-R-T Axes : 038 040 059 degrees QTc Int : 449 ms Normal sinus rhythm Normal ECG When compared with ECG of 27-NOV-2023 16:34, QRS axis Shifted left Nonspecific T wave abnormality, worse in Lateral leads Referred By: Janae Presley Electronically Signed By:Brad French
[2023-11-28] MEDS: 0.9 % Sodium Chloride 500 ML IV (00:58)
--- NOTE | 2023-11-28 01:11 | PM.IMHP ---
History of Present Illness Date of Service: 11/28/23 Attending physician on admission: Janae Presley Chief Complaint: Multiple symptoms Saima Restrepo is a 73 years old woman with past medical history significant for COPD -on home oxygen, CAD (cardiac catheterization June 2023 - 99% stenosis of circumflex s/p PCI and normal left main), tracheomalacia (s/p tracheoplasty), lung cancer (s/p lobectomy), HFpEF, mild , type 2 DM on insulin and hypertension presents to the emergency department complaining of right upper quadrant/epigastric pain that started Wednesday. She describes the pain as intermittent and radiating to the chest. It is 7/10 in intensity. Pain increases with food ingestion. She does have shortness of breath with exertion. She denied nausea, vomiting, diarrhea, fevers chills. Did not report black or blurry stools. She is a former tobacco smoker. Denies alcohol abuse or illicit drug use. Abdominal surgery is remarkable for cholecystectomy. In the ED, she was found to have stable vital signs. Patient has not required supplemental oxygen. Blood workup is remarkable for slightly leukocytosis, 11.3. Hemoglobin is 10.0 (prior 11.8). BUN and creatinine elevated (1.79 and 28 respectively). Electrolytes are normal. Glucose 294. LFTs are normal. Lipase is normal. BNP is 126 which is around baseline. Troponin is negative x2. EKG showed normal sinus rhythm with a heart rate of 86 beats per minutes and no ischemic changes. CXR showed chronic pleural and parenchymal scarring. Abdomen pelvis CT scan showed no acute intra-abdominal or intrapelvic abnormalities. There is moderate colonic diverticulosis without evidence of acute diverticulitis. Right kidney atrophy noted. ED tx: NS 1 L, morphine 8 mg IV (total). Review of Systems Review of Systems: All 12 systems were reviewed and normal except as noted in HPI. 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 Father No problems noted. Brother Substance use disorder Brother Substance use disorder Surgical History History of carpal tunnel surgery History of cholecystectomy History of lobectomy of lung Status post tracheoplasty History of cardiac cath Social History Household Members: Family Household Members Other:: 2 Housing: House Do you presently have visiting nurse or other home services: No (it's coming soon) Alcohol intake: former Patient Tobacco Use Status: Former Tobacco user Quit Date: 1993 Tobacco use type: Cigarette Cigarettes Per Day: 10 Years Smoked: 3 e-Cigarette/Vaping Use: Never Used Second Hand Smoke Exposure: No Advance Directives Date on File: 06/29/23 service: No Current occupational status: retired Cognitive needs: No Hearing needs: No Vision needs: No Meds Allergies Allergy/AdvReac Type Severity Reaction Status Date / Time Latex, Natural Rubber Allergy Severe blisters Verified 11/27/23 16:39 Sulfa (Sulfonamide Allergy Mild ITCHING, Verified 11/27/23 16:39 Antibiotics) rash [SULFA (SULFONAMIDE ANTIBIOTICS)] nystatin Allergy Unknown rash Verified 11/27/23 16:39 isosorbide [From Imdur] AdvReac Unknown HEADACHES, Verified 11/27/23 16:39 headache tizanidine AdvReac Unknown weakness, Verified 11/27/23 16:39 Hellucination Active Medications: Current Medications Acetaminophen (Acetaminophen 325 Mg Tablet) 650 mg PO Q6H PRN PRN Reason: Pain, Mild (Pain Scale 1-3) Apixaban (Apixaban 2.5 Mg Tablet) 2.5 mg PO BID LOU Buspirone HCl (Buspirone Hcl 5 Mg Tablet) 5 mg PO BID LOU Dextrose (Dextrose 50 % 25 Gm/50 Ml Syringe) 25 gm IVPUSH Q15M PRN; Protocol PRN Reason: per Hypoglycemia Standing Ord. Glucose (Glucose Gel 15 Gm Gel..Gram.) 15 gm PO Q15M PRN; Protocol PRN Reason: per Hypoglycemia Standing Ord. Hydromorphone HCl (Hydromorphone Hcl 0.5 Mg/0.5 Ml Syringe) 0.5 mg IVPUSH Q4H PRN; Protocol PRN Reason: Pain, Severe (Pain Scale 7-10) Sodium Chloride (Ns) 500 mls @ 500 mls/hr IV .Q1H ONE Stop: 11/28/23 01:14 Last Admin: 11/28/23 00:58 Dose: 500 mls/hr Sodium Chloride (Ns) 1,000 mls @ 100 mls/hr IVCONT .Q10H LOU Insulin Human Lispro (Insulin Lispro 100 Unit/Ml 3 Ml Vial) 0 unit SUBCUT QIDACHS LOU; Protocol Metoprolol Tartrate (Metoprolol Tartrate 50 Mg Tablet) 50 mg PO BID LOU; Protocol Non-Formulary Medication (Budesonide-Formoterol [Symbicort]) 1 puff INHALE BID [facility] Pantoprazole Sodium (Pantoprazole Sodium 40 Mg/10 Ml Vial) 40 mg IVPUSH DAILY@0630 [facility] Sodium Chloride (0.9 % Sodium Chloride Flush 3 Ml Syringe) 3 ml IVFLUSH QSHIFT [facility] Home Medications Medication Instructions Recorded Confirmed Last Taken Type albuterol sulfate 90 mcg/actuation 2 puff inhalation Q4H PRN 06/25/23 09/27/23 Unknown History aerosol inhaler (ProAir HFA) Shortness Of Breath cholecalciferol (vitamin D3) 25 25 mcg PO DAILY 08/11/23 09/27/23 08/11/23 History mcg (1,000 unit) tablet ipratropium 0.5 mg-albuterol 3 mg 3 ml inhalation BID PRN sob 08/11/23 09/27/23 Unknown History (2.5 mg base)/3 mL nebulization soln loratadine 10 mg tablet 10 mg PO DAILY 08/11/23 09/27/23 08/11/23 History melatonin 3 mg tablet 3 mg PO BEDTIME 08/11/23 09/27/23 08/11/23 History insulin glargine 100 unit/mL (3 60 unit subcut BEDTIME 09/27/23 09/27/23 Unknown History mL) subcutaneous pen (Lantus Solostar U-100 Insulin) budesonide-formoterol HFA 160 1 puff inhalation BID 11/28/23 11/28/23 Unknown History mcg-4.5 mcg/actuation aerosol inhaler (Symbicort) buspirone 5 mg tablet 5 mg PO BID 11/28/23 11/28/23 Unknown History furosemide 20 mg tablet 20 mg PO DAILY 11/28/23 11/28/23 Unknown History insulin glargine 100 unit/mL (3 15 unit subcut BEDTIME 11/28/23 11/28/23 Unknown History mL) subcutaneous pen (Lantus Solostar U-100 Insulin) lisinopril 10 mg tablet 10 mg PO DAILY 11/28/23 11/28/23 Unknown History metoprolol tartrate 50 mg tablet 50 mg PO BID 11/28/23 11/28/23 Unknown History pantoprazole 40 mg tablet,delayed 40 mg PO BID 11/28/23 11/28/23 Unknown History release Physical Exam Vital Signs and Narrative: Vital Signs: Last Vital Signs Temp 98.0 F 11/27/23 22:38 Pulse 90 11/27/23 22:38 Resp 20 11/27/23 22:38 BP 145/37 H 11/27/23 22:38 Pulse Ox 96 11/27/23 22:38 O2 Del Method Room Air 11/27/23 22:38 BMI result Body Mass Index 34.0 Constitutional - Awake and Alert, No apparent distress. Lose uncomfortable due to abdominal pain. HEENT - Pupils equally round. Normal sclerae. Dry oral mucosa Heart - RRR. (+) murmur Lungs - Normal lung expansion, Normal respiratory effort, No respiratory distress, CTA bilaterally Abdomen - Nondistended, soft, positive bowel sounds. Right upper and epigastric tenderness without rebound or guarding. Extremities - no calf tenderness bilaterally, no swelling Musculoskeletal - Normal inspection, normal ROM Skin - Warm/Dry Neurological - Alert & oriented x3, CN II-XII in tact, 5/5 strength BUE and BLE Psychological - Appropriate affect Results Labs 11/27/23 17:55 11/27/23 17:55 Labs: Laboratory Results - last 24 hr 11/27/23 11/27/23 17:55 21:06 MCV 74.5 L MCH 22.6 L MCHC 30.3 L RDW 16.6 H Plt Count 364 D MPV 9.5 Immature Gran % (Auto) 0.9 H Neut % (Auto) 71.6 Lymph % (Auto) 16.2 L [place] % (Auto) 6.6 Eos % (Auto) 3.8 Baso % (Auto) 0.9 Lymph # (Auto) 1.8 [place] # (Auto) 0.8 Eos # (Auto) 0.4 Baso # (Auto) 0.1 Abs Immat Gran (auto) 0.10 H Absolute Neuts (auto) 8.1 Absolute Nucleated RBC 0.000 Nucleated RBC % (auto) 0.0 Anion Gap 17 Estim Creat Clear Calc 29.4 Estimated GFR 28 Random Glucose 294 H Calcium 9.0 Magnesium 1.8 Total Bilirubin 0.5 AST 12 ALT 12 Alkaline Phosphatase 138 H Troponin I High Sens 6.3 D 5.8 B-Natriuretic Peptide 126 H Total Protein 7.2 Albumin 4.0 Lipase 25 Influenza Type A (PCR) NEGATIVE Influenza Type B (PCR) NEGATIVE RSV RNA Qual (PCR) NEGATIVE SARS-CoV-2 RNA (RT-PCR) NEGATIVE Imaging Radiologist's Impressions: Impressions Chest X-Ray 11/27/23 16:52 IMPRESSION: There is chronic pleural and parenchymal scarring. No focal infiltrate or congestive heart failure is seen. Abdomen/Pelvis CT 11/27/23 23:28 IMPRESSION: 1. No acute intra-abdominal or intrapelvic abnormalities. 2. Moderate colonic diverticulosis without evidence of acute diverticulitis. 3. Atrophic right kidney. Assessment and Plan (1) Tracheomalacia, acquired: Status: Acute (2) CAD (coronary artery disease): Qualifiers: Coronary Disease-Associated Artery/Lesion type: [place] artery [place] vs. transplanted heart: [place] heart Associated angina: with unspecified form of angina Qualified Code(s): I25.119 - Atherosclerotic heart disease of [place] coronary artery with unspecified angina pectoris Status: Acute (3) Hypertension: Qualifiers: Hypertension type: primary hypertension Qualified Code(s): I10 - Essential (primary) hypertension Status: Acute (4) Dyslipidemia: Status: Acute (5) Diabetes type 2, uncontrolled: Qualifiers: Glycemic state: with hyperglycemia Qualified Code(s): E11.65 - Type 2 diabetes mellitus with hyperglycemia Status: Acute (6) Obstructive sleep apnea: Status: Acute (7) COPD (chronic obstructive pulmonary disease): Qualifiers: COPD type: unspecified COPD Qualified Code(s): J44.9 - Chronic obstructive pulmonary disease, unspecified Status: Acute (8) AG (acute kidney injury): Status: Acute (9) Anemia: Qualifiers: Anemia type: unspecified type Qualified Code(s): D64.9 - Anemia, unspecified Status: Acute (10) Non-cardiac chest pain: Status: Acute (11) Epigastric abdominal pain: Status: Acute (12) History of pulmonary embolism: Status: Acute (13) Obesity: Qualifiers: Obesity type: due to excess calories Serious obesity comorbidity presence: with serious comorbidity Body mass index: BMI 34.0-34.9 Status: Acute Plan Saima Restrepo is a 73 years old woman admitted with: Acute kidney injury likely secondary to poor p.o. intake in the setting of Lasix and lisinopril therapy. Admit to hospitalist service. Gentle IV fluids. Continue to monitor renal function. Check UA. Avoid nephrotoxic agents. Right upper/epigastric pain, cause is unclear. LFTs and lipase normal. s/p cholecystectomy. Abdominal pelvis CT scan showed no acute abnormalities. Differential Dx: GERD, gastritis, PUD. Protonix IV. Pain control with Dilaudid as needed. Chest pain likely GI source. EKG and troponin x2 negative. Chronic anemia. Baseline 10-11. Today it is 9.6. Continue to monitor H&H. Shortness on breath with exertion. Check echocardiogram. COPD. No acute symptoms. Type 2 diabetes mellitus. Blood glucose monitoring before meals at bedtime. Continue Lantus and insulin sliding scale. Diabetic diet. Essential hypertension. Continue metoprolol. Lisinopril due to AG. HFpEF. BNP at baseline. Lungs clear. CXR negative. Obstructive sleep apnea. Continue CPAP at bedtime. History of pulmonary embolism. Continue Eliquis. CAD, s/p PCI. June 2023. Continue home meds. History of lung CA s/p lobectomy. Tracheomalacia s/p tracheoplasty. Mitral stenosis. DVT prophylaxis: Eliquis Code status: Full Patient will need hospitalization for at least 2 midnights for AG abdominal pain evaluation and treatment with IV fluids, pain control with IV meds, close monitoring of vital signs, renal function and hemoglobin. Quality Stroke Does the patient have a stroke diagnosis?: No VTE Prior VTE?: No VTE Risk Level:: Medical - moderate - high VTE Device Contraindication: Treatment Not Indicated VTE Drug Contraindication: Treatment Not Indicated
[2023-11-28 01:38] LABS: MANUAL DIFF FLAG NO
[2023-11-28 01:40] LABS: Basophils Absolute Auto 0.1 X10*3/uL (0.0-0.2); Basophils Percent Auto 0.7 % (0-2); Eosinophils Absolute Auto 0.5 X10*3/uL (0.0-0.4); Eosinophils Percent Auto 4.6 % (0-4); Hematocrit 31.6 % (37.0-47.0); Hemoglobin 9.6 g/dl (12.0-16.0); Imm Gran Abs Auto 0.05 X10*3/uL (0.00-0.03); Imm Gran Pct Auto 0.5 % (0.0-0.4); Lymphocytes Absolute Auto 2.4 X10*3/uL (1.2-4.9); Lymphocytes Percent Auto 21.4 % (20-40); Mean Corpuscular HGB Conc 30.4 g/dl (31.0-35.0); Mean Corpuscular Hemoglobin 22.6 pg (27.0-33.0); Mean Corpuscular Volume 74.5 fL (80.0-98.0); Mean Platelet Volume 9.4 fL (9.4-12.3); Neutrophils Percent Auto 63.8 % (45-73); Platelet Count 330 X10*3/uL (160-400); Red Blood Count 4.24 X10*6/uL (4.20-5.50); Red Cell Distribution Width 16.7 % (11.0-16.0)
[2023-11-28 01:55] LABS: Alanine Aminotransferase 26 U/L (0-31); Alkaline Phosphatase 184 U/L (39-117); Anion Gap 18 (12-20); Aspartate Amino Transferase 33 U/L (5-31); Bilirubin Total 0.6 mg/dL (0.0-1.0); Blood Urea Nitrogen 26 mg/dL (9-16); Carbon Dioxide 23 mmol/L (22-29); Chloride 102 mmol/L (96-108); Creatinine Clr Calc Pharmacy 34.7; Estimated Glomerular Filt Rate 33; Glucose Random 176 mg/dL (60-115); Potassium 3.9 mmol/L (3.3-5.1); Sodium 139 mmol/L (135-145); Total Protein 7.1 g/dL (6.5-8.0)
[2023-11-28 02:02] LABS: Troponin-I High Sensitivity 5.9 ng/L (<3.5-17.0)
[2023-11-28] MEDS: HYDROmorphone HCl 0.5 MG/0.5 ML SYRINGE IVPUSH ×5 (02:17→23:14)
[2023-11-28] MEDS: Pantoprazole Sodium 40 MG/10 ML VIAL IVPUSH (02:21)
[2023-11-28 02:28] LABS: Glucose, Whole Blood 163 mg/dL (60-115)
[2023-11-28] MEDS: Insulin Lispro 100 UNIT/ML 3 ML VIAL SUBCUT ×5 (02:28→21:14)
[2023-11-28] MEDS: Insulin Glargine,Hum.rec.anlog 100 UNIT/ML 10 ML VIAL 15 UNIT SUBCUT ×2 (02:29→21:14)
[2023-11-28 02:44] LABS: Appearance Urine Cloudy; Color Urine Yellow; Glucose Urine UA >=1000 mg/dL (Negative); Leukocyte Esterase Urine Trace (Negative); Nitrite Urine Negative (Negative); PH 5.5 (5.0-9.0); Specific Gravity - Urine >= 1.030 (1.005-1.025); UMIC TRIGGER UA YES; Urine Blood Negative (Negative); Urine Ketones Negative (Negative); Urine Protein Trace mg/dL (Neg-Trace)
[2023-11-28 03:14] LABS: Bacteria Urine None Seen (None Seen); Hyaline Casts Urine 0-2 /LPF (0-2); RBC Urine 0-2 /HPF (0-2)
[2023-11-28] MEDS: 0.9 % Sodium Chloride 1,000 ML 60 ML IVCONT (04:00)
[2023-11-28 08:04] LABS: Glucose, Whole Blood 180 mg/dL (60-115)
[2023-11-28] MEDS: Fluticasone/Vilanterol 200/25 BLST.W.DEV 1 PUFF INHALE (08:16)
--- NOTE | 2023-11-28 08:20 | PHA.MEDREC ---
Pharmacy Consult ? Medication Reconciliation Pharmacy has completed the medication reconciliation. Talked to patient and patient's daughter Rachana ([phone]) to confirm meds. Pt currently on 60 units lantus.
[2023-11-28] MEDS: Apixaban 2.5 MG TABLET PO ×2 (08:33→19:35)
[2023-11-28] MEDS: busPIRone HCl 5 MG TABLET PO ×2 (08:33→19:35)
[2023-11-28] MEDS: Metoprolol Tartrate 50 MG TABLET PO ×2 (08:33→19:35)
--- NOTE | 2023-11-28 09:34 | MHC.CM.PN ---
IMM 11/28/23, Pt lives with family, she is active with [facility] for nursing and PT, she has medical equipment of walker, wheeled walker, cane, CPAP. She does not like the CPAP machine that she has, it uses water, she likes the one she is using here and said she is working on getting one like this. HCP is on file, naming her daughter, Rachana, this was confirmed, PCP confirmed: Amanda Leiva. She has been to [facility] before at [facility] in [facility] and others, she prefers to go home with services if indicated. CM will follow and assist with DC plan.
[2023-11-28 11:42] LABS: Glucose, Whole Blood 190 mg/dL (60-115)
--- NOTE | 2023-11-28 12:16 | PM.EVENT ---
Event Note Date of Service: 11/28/23 Event Note: This patient is seen and examined by hospitalist team this morning seen and examines again: epigastric pain improving ,eating. Physical exam : unchnaged from h&P except: abd: nd,no rebound or guarding, bs present, has epigastric discomfort. assessment and plan coordinated in APCs note, Agree with the plan in addition: ? epigastric discomfort unclear etiology: Continue PPI, lidocaine patch, GI evaluation mild elevated ast ,alk phos ,lipase normal trops neg abd ct -seems fine,Status post cholecystectomy. will add Gi eval vincent : hold diuretics /JOE given iv hydration moniter bmp anemia -? dilautional patient denies any gross bleeding or melena h/h seems near baseline abd pain improving will follow cbc in am Time Spent With Patient Time: Total time managing care of this patient today ____ minutes.
[2023-11-28] MEDS: Lidocaine 4 % Patch ADH..PATCH 1 PATCH TRANSDERMA (12:45)
[2023-11-28] MEDS: diphenhydrAMINE HCL 25 MG CAPSULE PO (12:45)
[2023-11-28 13:48] LABS: Anion Gap 15 (12-20); Blood Urea Nitrogen 23 mg/dL (9-16); Calcium 8.7 mg/dL (8.4-10.2); Carbon Dioxide 25 mmol/L (22-29); Chloride 101 mmol/L (96-108); Creatinine Clr Calc Pharmacy 32.6; Estimated Glomerular Filt Rate 31; Glucose Random 209 mg/dL (60-115); Potassium 4.6 mmol/L (3.3-5.1); Sodium 136 mmol/L (135-145)
[2023-11-28] MEDS: 0.9 % Sodium Chloride Flush 3 ML SYRINGE IVFLUSH ×2 (15:22→19:35)
[2023-11-28 16:05] LABS: Glucose, Whole Blood 174 mg/dL (60-115)
[2023-11-28] MEDS: Montelukast Sodium 10 MG TABLET PO (19:35)
[2023-11-28] MEDS: Atorvastatin Calcium 80 MG TABLET PO (19:35)
[2023-11-28 20:42] LABS: Glucose, Whole Blood 182 mg/dL (60-115)
[2023-11-28] MEDS: Nitroglycerin 0.4 MG TAB.SUBL SUBLINGUAL (21:13)
[2023-11-28 21:47] LABS: Troponin-I High Sensitivity 4.8 ng/L (<3.5-17.0)
[2023-11-29] VITALS (12 sets, daily range): BP systolic 118–167; BP diastolic 50–73; PULSE 63–98; RESP 16–20; TEMP 36–37.1; O2SAT 94–99
--- NOTE | 2023-11-29 00:37 | PC.NURSE ---
At approx 0 pt complaining of 8/10 midsternal chest pain. MD Perez notified. STAT EKG obtained showing NSR, Troponin ordered and results in system. PRN Nitro SL tabs ordered and given x1. Pt expresses some relief. Cardiology consult in.
[2023-11-29] MEDS: HYDROmorphone HCl 0.5 MG/0.5 ML SYRINGE IVPUSH ×2 (05:47→09:45)
[2023-11-29] MEDS: Pantoprazole Sodium 40 MG/10 ML VIAL IVPUSH ×2 (05:47→18:41)
--- NOTE | 2023-11-29 07:00 | CA_ITS ---
Transthoracic Echocardiogram Patient (Last, First, Middle): Saima Restrepo A Gender: Female Date of : 1950 Age: 73 Procedure Date: 11/29/2023 Procedure Type: Transthoracic Echocardiogram Location: [facility] Height: 162.56 cm Weight: 89.81 kg BSA: 1.95 m2 Heart Rate: bpm BP: 153 / 69 mmHg Inspector Finishing: Referring MD: Janae Presley MD Symptoms: Exertional shortness on breath Study Quality: Adequate ECG Rhythm: Sinus Conclusions: - Normal left ventricular cavity size. There is severely increased left ventricular wall thickness. The left ventricular systolic function is hyperdynamic. The visually estimated ejection fraction is >70%. There is no evidence of regional wall motion abnormalities. Abnormal diastolic function is noted. Spectral Doppler is indicative of an impaired relaxation filling pattern. E/E prime ratio is >15, consistent with elevated filling pressures. - Normal right ventricular cavity size and systolic function. - The left atrium is moderately dilated. - There is mild aortic valve stenosis. Findings Left Ventricle Normal left ventricular cavity size. There is severely increased left ventricular wall thickness. The left ventricular systolic function is hyperdynamic. The visually estimated ejection fraction is >70%. There is no evidence of regional wall motion abnormalities. Abnormal diastolic function is noted. Spectral Doppler is indicative of an impaired relaxation filling pattern. E/E prime ratio is >15, consistent with elevated filling pressures. Right Ventricle Normal right ventricular cavity size and systolic function. Atria The left atrium is moderately dilated. Aortic Valve There is mild calcification of the aortic valve. There is mild aortic valve stenosis. There is trace (trivial) aortic valve regurgitation. Mitral Valve The mitral valve appears normal. There is trace mitral valve regurgitation. There is no mitral valve stenosis. Pulmonic Valve The pulmonic valve is normal. There is no pulmonic valve regurgitation. Tricuspid Valve Normal tricuspid valve structure. There is no tricuspid valve regurgitation. Normal right atrial pressure. There is no evidence of pulmonary hypertension. Great Vessels All visible segments of the aorta are normal in size. The visualized portions of the pulmonary artery and branches are normal. Venous The inferior vena cava is normal in size and collapses greater than 50% with inspiration. Pericardium/Pleural There is no evidence of pericardial effusion. Prior Study Comparison No significant change compared to prior study dated: 06/25/2023. Measurements 2D Linear Measurements IVSd: 1.50 0.6-0.9/0.6-1.0 cm LVIDd: 3.69 3.9-5.3/4.2-5.9 cm LVIDd Index: 1.89 2.4-3.2/2.2-3.1 cm/m2 LVIDs: 2.31 2.0-3.6 cm LVPWd: 1.51 0.7-1.1 cm Ao Root: 3.20 2.1-3.5 cm LA Diam: 3.50 2.7-3.8/3.0-4.0 cm LAIDs Index: 1.79 1.5-2.3 cm/m2 LV Mass: 260.54 67-162/88-224 g LV Mass Index: 133.61 43-95/49-115 g/m2 LVOT Diam: 2.20 3.0+(-)1.3 cm Mitral Valve MV VTI: 0.54 MV Pk Yunier: 1.61 MV Mn Yunier: 0.96 MV Pk Grad: 10.00 MV Mn Grad: 4.00 MV Pk E: 1.42 MV PK A: 1.25 MV Decel Time: 290.00 E/A: 1.10 E'Lateral: 3.59 E'Medial: 4.35 E/E' Med: 32.60 E/E' Lat: 39.60 PHT: 85.00 MVA PHT: 2.59 MVA Continuity: 1.97 Decel Trigg: 4.88 Aortic Valve AoV Pk Yunier: 2.65 AoV Mn Yunier: 1.96 AoV VTI: 0.64 AoV Pk Grad: 28.00 Aov Mn Grad: 18.00 KIKI Cont.VTI: 1.66 AI Pk Yunier: 4.00 AI Trigg: 3.78 LVOT LVOT Pk Yunier: 1.05 LVOT Mn Yunier: 0.76 LVOT VTI: 0.28 LVOT Pk Grad: 4.00 LVOT Mn Grad: 3.00 LVOT Diam: 2.20 LVOT Area: 3.80 Diastolic Function MV Pk E: 1.42 MV Pk A: 1.25 E/A: 1.10 E'Medial: 4.35 E/E' Med: 32.60 E' Laterial: 3.59 E/E' Lat: 39.60 Right Ventricle TAPSE (mm): 22.00 TVS' Yunier: 12.00 Tricuspid Valve TR Pk Yunier: 1.69 TR Pk Grad: 11.00 RA Press: 3.00 RVSP: 14.00 Great Vessels Aorta Ao Root-2D: 3.20 2.0-3.7 cm Ao Asc: 3.00 2.1-3.4 cm Pulmonary Valve PV Pk Yunier: 1.16 Peak PV Grad: 5.00 Updated in Other Vendor System with Status of Final Brad French MD electronically signed on 11/30/2023 12:46:53 PM with status of Final
[2023-11-29 07:17] LABS: Glucose, Whole Blood 165 mg/dL (60-115)
[2023-11-29] MEDS: Fluticasone/Vilanterol 200/25 BLST.W.DEV 1 PUFF INHALE (07:50)
[2023-11-29] MEDS: Clopidogrel Bisulfate 75 MG TABLET PO (07:56)
[2023-11-29] MEDS: dilTIAZem HCL CD 300 MG CAP.ER.24H PO (07:56)
[2023-11-29] MEDS: Insulin Lispro 100 UNIT/ML 3 ML VIAL SUBCUT ×3 (07:56→21:15)
[2023-11-29] MEDS: Escitalopram Oxalate 10 MG TABLET PO (07:56)
[2023-11-29] MEDS: busPIRone HCl 5 MG TABLET PO ×2 (07:56→21:14)
[2023-11-29] MEDS: Apixaban 2.5 MG TABLET PO (07:57)
[2023-11-29] MEDS: Empagliflozin 25 MG TABLET PO (07:57)
[2023-11-29] MEDS: Metoprolol Tartrate 50 MG TABLET PO ×2 (07:57→21:14)
[2023-11-29] MEDS: Lidocaine 4 % Patch ADH..PATCH 1 PATCH TRANSDERMA (07:57)
[2023-11-29] MEDS: Cholecalciferol (Vitamin D3) 25 MCG TABLET PO (07:57)
[2023-11-29] MEDS: 0.9 % Sodium Chloride Flush 3 ML SYRINGE IVFLUSH ×3 (07:58→21:15)
[2023-11-29 08:53] LABS: Hematocrit 29.6 % (37.0-47.0); Hemoglobin 8.8 g/dl (12.0-16.0)
[2023-11-29 09:14] LABS: Alanine Aminotransferase 21 U/L (0-31); Albumin Level 3.5 g/dL (3.5-5.0); Alkaline Phosphatase 151 U/L (39-117); Anion Gap 11 (12-20); Aspartate Amino Transferase 18 U/L (5-31); Bilirubin Total 0.5 mg/dL (0.0-1.0); Blood Urea Nitrogen 21 mg/dL (9-16); Calcium 8.9 mg/dL (8.4-10.2); Carbon Dioxide 27 mmol/L (22-29); Chloride 105 mmol/L (96-108); Creatinine Clr Calc Pharmacy 43.5; Estimated Glomerular Filt Rate 43; Glucose Random 174 mg/dL (60-115); Potassium 4.3 mmol/L (3.3-5.1); Sodium 139 mmol/L (135-145); Total Protein 6.3 g/dL (6.5-8.0)
[2023-11-29 11:23] LABS: Glucose, Whole Blood 225 mg/dL (60-115)
[2023-11-29] MEDS: diphenhydrAMINE HCL 50 MG/ML VIAL 25 MG IM (11:51)
--- NOTE | 2023-11-29 11:51 | HO.PM.IMPN ---
Subjective Subjective Date of Service: 11/29/23 Interval History: patient has epigastric discomfort similar to yesterday Review of Systems no neusea or vomiting tolerating diet but has epigastric discomfort reccurrent. no fevers Physical Exam Vital Signs: Vital Signs: Last Vital Signs Temp 97.3 F 11/29/23 11:44 Pulse 79 11/29/23 11:44 Resp 20 11/29/23 11:44 BP 118/53 L 11/29/23 11:44 Pulse Ox 95 11/29/23 11:44 O2 Del Method Room Air 11/29/23 11:44 BMI result Body Mass Index 34.0 Appearance: Alert.? Oriented X3.? cvs: rrr, [id number] , no murmur res: clear to auscultation ,no rhonchii or wheezing abd: no rebound or guarding ,epigastic discomfort, bs present. ext pulses present , no cyanosis . neuro: axo3 , nonfocal. Objective Data Active Medications Acetaminophen (Acetaminophen 325 Mg Tablet) 650 mg PO Q6H PRN PRN Reason: Pain, Mild (Pain Scale 1-3) Albuterol Sulfate (Albuterol Sulfate 90 Mcg 8 Gm Inhaler) 2 puff INHALE RQ4H PRN PRN Reason: Sob Apixaban (Apixaban 2.5 Mg Tablet) 2.5 mg PO BID [facility] Last Admin: 11/29/23 07:57 Dose: 2.5 mg Documented By: FLASH Atorvastatin Calcium (Atorvastatin Calcium 80 Mg Tablet) 80 mg PO BEDTIME [facility] Last Admin: 11/28/23 19:35 Dose: 80 mg Documented By: PAN Buspirone HCl (Buspirone Hcl 5 Mg Tablet) 5 mg PO BID [facility] Last Admin: 11/29/23 07:56 Dose: 5 mg Documented By: FLASH Clopidogrel Bisulfate (Clopidogrel Bisulfate 75 Mg Tablet) 75 mg PO DAILY [facility] Last Admin: 11/29/23 07:56 Dose: 75 mg Documented By: FLASH Dextrose (Dextrose 50 % 25 Gm/50 Ml Syringe) 25 gm IVPUSH Q15M PRN; Protocol PRN Reason: per Hypoglycemia Standing Ord. Diltiazem HCl (Diltiazem Hcl Cd 300 Mg Cap.Er.24h) 300 mg PO DAILY [facility]; Protocol Last Admin: 11/29/23 07:56 Dose: 300 mg Documented By: FLASH Empagliflozin (Empagliflozin 25 Mg Tablet) 25 mg PO DAILY [facility] Last Admin: 11/29/23 07:57 Dose: 25 mg Documented By: FLASH Escitalopram Oxalate (Escitalopram Oxalate 10 Mg Tablet) 10 mg PO DAILY [facility] Last Admin: 11/29/23 07:56 Dose: 10 mg Documented By: FLASH Fluticasone/Vilanterol (Fluticasone/Vilanterol 200/25 Blst.W.Dev) 1 puff INHALE DAILY [facility] Last Admin: 11/29/23 07:50 Dose: 1 puff Documented By: DAY Fluticasone/Vilanterol (Fluticasone/Vilanterol 200/25 Blst.W.Dev) 1 puff INHALE RDAILY [facility] Glucose (Glucose Gel 15 Gm Gel..Gram.) 15 gm PO Q15M PRN; Protocol PRN Reason: per Hypoglycemia Standing Ord. Hydromorphone HCl (Hydromorphone Hcl 0.5 Mg/0.5 Ml Syringe) 0.5 mg IVPUSH Q4H PRN; Protocol PRN Reason: Pain, Severe (Pain Scale 7-10) Last Admin: 11/29/23 09:45 Dose: 0.5 mg Documented By: FLASH Insulin Glargine (Insulin Glargine,Hum.Rec.Anlog 100 Unit/Ml 10 Ml Vial) 15 unit SUBCUT BEDTIME [facility] Last Admin: 11/28/23 21:14 Dose: 15 unit Documented By: PAN Insulin Human Lispro (Insulin Lispro 100 Unit/Ml 3 Ml Vial) 0 unit SUBCUT QIDACHS [facility]; Protocol Last Admin: 11/29/23 07:56 Dose: 2 unit Documented By: FLASH Lidocaine (Lidocaine 4 % Patch Adh..Patch) 1 patch TRANSDERMA DAILY [facility]; Protocol Last Admin: 11/29/23 07:57 Dose: 1 patch Documented By: FLASH Metoprolol Tartrate (Metoprolol Tartrate 50 Mg Tablet) 50 mg PO BID [facility]; Protocol Last Admin: 11/29/23 07:57 Dose: 50 mg Documented By: FLASH Montelukast Sodium (Montelukast Sodium 10 Mg Tablet) 10 mg PO BEDTIME [facility] Last Admin: 11/28/23 19:35 Dose: 10 mg Documented By: PAN Nitroglycerin (Nitroglycerin 0.4 Mg Tab.Subl) 0.4 mg SUBLINGUAL Q5MX3 PRN PRN Reason: Chest Pain Last Admin: 11/28/23 21:13 Dose: 0.4 mg Documented By: PAN Pantoprazole Sodium (Pantoprazole Sodium 40 Mg/10 Ml Vial) 40 mg IVPUSH DAILY@0630 [facility] Last Admin: 11/29/23 05:47 Dose: 40 mg Documented By: PAN Sodium Chloride (0.9 % Sodium Chloride Flush 3 Ml Syringe) 3 ml IVFLUSH QSHIFT [facility] Last Admin: 11/29/23 07:58 Dose: 3 ml Documented By: FLASH Vitamin D (Cholecalciferol (Vitamin D3) 25 Mcg Tablet) 25 mcg PO DAILY [facility] Last Admin: 11/29/23 07:57 Dose: 25 mcg Documented By: FLASH Labs 11/29/23 08:30 11/29/23 07:55 Labs: Laboratory Results - last 24 hr 11/28/23 11/28/23 11/28/23 13:18 15:31 20:39 Anion Gap 15 Estim Creat Clear Calc 32.6 Estimated GFR 31 POC Glucose 174 H 182 H Random Glucose 209 H Calcium 8.7 Total Bilirubin AST ALT Alkaline Phosphatase Troponin I High Sens Total Protein Albumin 11/28/23 11/29/23 11/29/23 21:08 07:08 07:55 Anion Gap 11 L Estim Creat Clear Calc 43.5 Estimated GFR 43 POC Glucose 165 H Random Glucose 174 H Calcium 8.9 Total Bilirubin 0.5 AST 18 ALT 21 Alkaline Phosphatase 151 H Troponin I High Sens 4.8 Total Protein 6.3 L Albumin 3.5 11/29/23 11:16 Anion Gap Estim Creat Clear Calc Estimated GFR POC Glucose 225 H Random Glucose Calcium Total Bilirubin AST ALT Alkaline Phosphatase Troponin I High Sens Total Protein Albumin Assessment and Plan (1) Anemia: Status: Acute (2) AG (acute kidney injury): Status: Acute Plan 73 years old woman admitted with: ag : hold diuretics /JOE us grossly negative ag imporving with iv hydration,eating better off ivf. moniter bmp.avoid nephrotoxic meds. Right upper/epigastric pain, cause is unclear. LFTs and lipase normal. s/p cholecystectomy. Abdominal pelvis CT scan showed no acute abnormalities. liver enzymes seems improved as well as alkaline phos improving Gi eval-she was told in the past that pain is possibly related to gerd and on omeprazole -still keep having similar pain clear liquid diet Gi eval. Chronic anemia. Baseline 10-11. h/h mild down than baseline -she denies any melena or gross bleedin ivf stopped yesterday moniter h/h ,iron studies and fobt added GI eval. Pain is most epigastric: troponin neg , she said intailly sob with excersion ,currently denies sob. echocardiogram added on admission. COPD. No acute symptoms. Type 2 diabetes mellitus. fs with sliding scale civerahge. Essential hypertension. Continue metoprolol. Lisinopril on hold due to AG. HFpEF. BNP at baseline. Lungs clear. CXR negative. echo pending Obstructive sleep apnea. Continue CPAP at bedtime. History of pulmonary embolism. Continue Eliquis. CAD, s/p PCI. June 2023. Continue home meds. DVT prophylaxis: Eliquis nadege need hospitalization: AG ,abdominal pain evaluation and treatment with IV fluids, pain control with IV meds, close monitoring of vital signs, monitering renal function and hemoglobin. Quality Stroke Does the patient have a stroke diagnosis?: No VTE Prior VTE?: No VTE Risk Level:: Medical - moderate - high VTE Device Contraindication: Treatment Not Indicated VTE Drug Contraindication: Treatment Not Indicated
[2023-11-29 12:56] LABS: Iron 13 mcg/dL (30-160); Percent Iron Saturation 4 % (15-50); Total Iron Binding Capacity 318 mcg/dL (228-428); Unsaturated Iron Binding 305 ug/dL
[2023-11-29 13:25] LABS: Ferritin 30 ng/mL (10-250)
--- NOTE | 2023-11-29 13:25 | P.CONCA_ITS ---
History of Present Illness History of Present Illness Date of Service: 11/29/23 Requesting physician: Kenrick Millard Chief complaint: CP, dyspnea, anemia Narrative: [age] year female who is presenting with chest discomfort, shortness of breath and anemia. In June 2023 she presented to [facility] with NSTEMI and was transferred for cardiac catheterization. Cardiac catheterization showed plaque rupture in the mid circumflex artery which was treated with a drug-eluting stent. She has background history of multiple venous thromboembolism episodes and was on apixaban therapy previously. She was discharged with apixaban and Plavix. She has been taking that regularly. She is now presenting because she has been getting chest discomfort and shortness of breath with activities. He presentation iron saturations are 4% with hemoglobin of 8.8. She has not noticed any blood in her stool or urine. No nosebleeds. She had acute kidney injury which has improved. She has epigastric discomfort and tenderness on examination. Labs, EKG and imaging reviewed. 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 Father No problems noted. Brother Substance use disorder Brother Substance use disorder Surgical History Surgical History History of carpal tunnel surgery History of cholecystectomy History of lobectomy of lung Status post tracheoplasty History of cardiac cath Social History Social History Household Members: Children Household Members Other:: 2 Housing: House Do you presently have visiting nurse or other home services: Yes ([facility] every 2 wks.) Alcohol intake: former Patient Tobacco Use Status: Former Tobacco user Quit Date: 1993 Tobacco use type: Cigarette Cigarettes Per Day: 10 Years Smoked: 3 e-Cigarette/Vaping Use: Never Used Second Hand Smoke Exposure: No Advance Directives Date on File: 06/29/23 service: No Current occupational status: retired Cognitive needs: No Hearing needs: No Vision needs: No Meds Allergies Allergy/AdvReac Type Severity Reaction Status Date / Time Latex, Natural Rubber Allergy Severe blisters Verified 11/27/23 16:39 Sulfa (Sulfonamide Allergy Mild ITCHING, Verified 11/27/23 16:39 Antibiotics) rash [SULFA (SULFONAMIDE ANTIBIOTICS)] nystatin Allergy Unknown rash Verified 11/27/23 16:39 isosorbide [From Imdur] AdvReac Unknown HEADACHES, Verified 11/27/23 16:39 headache tizanidine AdvReac Unknown weakness, Verified 11/27/23 16:39 Hellucination Active Medications: Current Medications Acetaminophen (Acetaminophen 325 Mg Tablet) 650 mg PO Q6H PRN PRN Reason: Pain, Mild (Pain Scale 1-3) Albuterol Sulfate (Albuterol Sulfate 90 Mcg 8 Gm Inhaler) 2 puff INHALE RQ4H PRN PRN Reason: Sob Apixaban (Apixaban 2.5 Mg Tablet) 2.5 mg PO BID [facility] Last Admin: 11/29/23 07:57 Dose: 2.5 mg Atorvastatin Calcium (Atorvastatin Calcium 80 Mg Tablet) 80 mg PO BEDTIME [facility] Last Admin: 11/28/23 19:35 Dose: 80 mg Buspirone HCl (Buspirone Hcl 5 Mg Tablet) 5 mg PO BID [facility] Last Admin: 11/29/23 07:56 Dose: 5 mg Clopidogrel Bisulfate (Clopidogrel Bisulfate 75 Mg Tablet) 75 mg PO DAILY [facility] Last Admin: 11/29/23 07:56 Dose: 75 mg Dextrose (Dextrose 50 % 25 Gm/50 Ml Syringe) 25 gm IVPUSH Q15M PRN; Protocol PRN Reason: per Hypoglycemia Standing Ord. Diltiazem HCl (Diltiazem Hcl Cd 300 Mg Cap.Er.24h) 300 mg PO DAILY [facility]; Protocol Last Admin: 11/29/23 07:56 Dose: 300 mg Empagliflozin (Empagliflozin 25 Mg Tablet) 25 mg PO DAILY [facility] Last Admin: 11/29/23 07:57 Dose: 25 mg Escitalopram Oxalate (Escitalopram Oxalate 10 Mg Tablet) 10 mg PO DAILY [facility] Last Admin: 11/29/23 07:56 Dose: 10 mg Fluticasone/Vilanterol (Fluticasone/Vilanterol 200/25 Blst.W.Dev) 1 puff INHALE DAILY [facility] Last Admin: 11/29/23 07:50 Dose: 1 puff Fluticasone/Vilanterol (Fluticasone/Vilanterol 200/25 Blst.W.Dev) 1 puff INHALE RDAILY [facility] Glucose (Glucose Gel 15 Gm Gel..Gram.) 15 gm PO Q15M PRN; Protocol PRN Reason: per Hypoglycemia Standing Ord. Hydromorphone HCl (Hydromorphone Hcl 0.5 Mg/0.5 Ml Syringe) 0.5 mg IVPUSH Q4H PRN; Protocol PRN Reason: Pain, Severe (Pain Scale 7-10) Last Admin: 11/29/23 09:45 Dose: 0.5 mg Sodium Chloride (Ns) 100 mls @ 100 mls/hr IV ONCE ONE Stop: 11/29/23 14:18 Insulin Glargine (Insulin Glargine,Hum.Rec.Anlog 100 Unit/Ml 10 Ml Vial) 15 unit SUBCUT BEDTIME [facility] Last Admin: 11/28/23 21:14 Dose: 15 unit Insulin Human Lispro (Insulin Lispro 100 Unit/Ml 3 Ml Vial) 0 unit SUBCUT QIDACHS [facility]; Protocol Last Admin: 11/29/23 11:53 Dose: 4 unit Lidocaine (Lidocaine 4 % Patch Adh..Patch) 1 patch TRANSDERMA DAILY [facility]; Protocol Last Admin: 11/29/23 07:57 Dose: 1 patch Metoprolol Tartrate (Metoprolol Tartrate 50 Mg Tablet) 50 mg PO BID [facility]; Protocol Last Admin: 11/29/23 07:57 Dose: 50 mg Montelukast Sodium (Montelukast Sodium 10 Mg Tablet) 10 mg PO BEDTIME [facility] Last Admin: 11/28/23 19:35 Dose: 10 mg Nitroglycerin (Nitroglycerin 0.4 Mg Tab.Subl) 0.4 mg SUBLINGUAL Q5MX3 PRN PRN Reason: Chest Pain Last Admin: 11/28/23 21:13 Dose: 0.4 mg Pantoprazole Sodium (Pantoprazole Sodium 40 Mg/10 Ml Vial) 40 mg IVPUSH DAILY@0630 [facility] Last Admin: 11/29/23 05:47 Dose: 40 mg Sodium Chloride (0.9 % Sodium Chloride Flush 3 Ml Syringe) 3 ml IVFLUSH QSHIFT [facility] Last Admin: 11/29/23 07:58 Dose: 3 ml Vitamin D (Cholecalciferol (Vitamin D3) 25 Mcg Tablet) 25 mcg PO DAILY [facility] Last Admin: 11/29/23 07:57 Dose: 25 mcg Home Medications Medication Instructions Recorded Confirmed Last Taken Type albuterol sulfate 90 mcg/actuation 2 puff inhalation Q4H PRN 06/25/23 11/28/23 Unknown History aerosol inhaler (ProAir HFA) Shortness Of Breath cholecalciferol (vitamin D3) 25 25 mcg PO DAILY 08/11/23 11/28/23 11/27/23 History mcg (1,000 unit) tablet ipratropium 0.5 mg-albuterol 3 mg 3 ml inhalation BID PRN sob 08/11/23 11/28/23 Unknown History (2.5 mg base)/3 mL nebulization soln loratadine 10 mg tablet 10 mg PO DAILY PRN Allergy Symptoms 08/11/23 11/28/23 08/11/23 History atorvastatin 80 mg tablet 80 mg PO BEDTIME 11/28/23 11/28/23 11/27/23 History budesonide-formoterol HFA 160 1 puff inhalation BID 11/28/23 11/28/23 11/27/23 History mcg-4.5 mcg/actuation aerosol inhaler (Symbicort) buspirone 5 mg tablet 5 mg PO BID 11/28/23 11/28/23 11/27/23 History furosemide 20 mg tablet 20 mg PO DAILY 11/28/23 11/28/23 11/27/23 History insulin glargine 100 unit/mL (3 60 unit subcut BEDTIME 11/28/23 11/28/23 11/27/23 History mL) subcutaneous pen (Lantus Solostar U-100 Insulin) lidocaine 4 % topical patch 1 patch transdermal DAILY PRN Pain 11/28/23 11/28/23 Unknown History (Lidocaine Pain Relief) lisinopril 10 mg tablet 10 mg PO DAILY 11/28/23 11/28/23 11/27/23 History metoprolol tartrate 50 mg tablet 50 mg PO BID 11/28/23 11/28/23 11/27/23 History montelukast 10 mg tablet 10 mg PO BEDTIME 11/28/23 11/28/23 11/27/23 History pantoprazole 40 mg tablet,delayed 40 mg PO BID 11/28/23 11/28/23 11/27/23 History release polyethylene glycol 3350 17 gram 17 g PO DAILY PRN Constipation 11/28/23 11/28/23 Unknown History oral powder packet Physical Exam 2 Vital Signs: Vital Signs: Last Vital Signs Temp 97.3 F 11/29/23 11:44 Pulse 79 11/29/23 11:44 Resp 20 11/29/23 11:44 BP 118/53 L 11/29/23 11:44 Pulse Ox 95 11/29/23 11:44 O2 Del Method Room Air 11/29/23 11:44 BMI result Body Mass Index 34.0 GENERAL APPEARANCE: in no acute distress, pleasant. NECK: no carotid bruit, no obvious jugular venous distention. SKIN: no suspicious lesions, warm and dry. HEART: Systolic murmur aortic area with preserved 2nd heart sound, regular rate and rhythm. LUNGS: Mild wheezes bilaterally. ABDOMEN: soft, epigastric tenderness. EXTREMITIES: no edema. PERIPHERAL PULSES: equal. NEUROLOGIC: No gross deficits, AAO X 3 Objective Labs and Meds 11/29/23 08:30 11/29/23 07:55 Lab results: Laboratory Results - last 24 hr 11/28/23 11/28/23 11/28/23 13:18 15:31 20:39 Hgb Hct Sodium 136 Potassium 4.6 Chloride 101 Carbon Dioxide 25 Anion Gap 15 BUN 23 H Creatinine 1.62 H Estim Creat Clear Calc 32.6 Estimated GFR 31 POC Glucose 174 H 182 H Random Glucose 209 H Calcium 8.7 Iron TIBC % Saturation Unsat Iron Binding Total Bilirubin AST ALT Alkaline Phosphatase Troponin I High Sens Total Protein Albumin 11/28/23 11/29/23 11/29/23 21:08 07:08 07:55 Hgb Hct Sodium 139 Potassium 4.3 Chloride 105 Carbon Dioxide 27 Anion Gap 11 L BUN 21 H Creatinine 1.21 Estim Creat Clear Calc 43.5 Estimated GFR 43 POC Glucose 165 H Random Glucose 174 H Calcium 8.9 Iron TIBC % Saturation Unsat Iron Binding Total Bilirubin 0.5 AST 18 ALT 21 Alkaline Phosphatase 151 H Troponin I High Sens 4.8 Total Protein 6.3 L Albumin 3.5 11/29/23 11/29/23 11/29/23 08:30 11:16 12:15 Hgb 8.8 L Hct 29.6 L Sodium Potassium Chloride Carbon Dioxide Anion Gap BUN Creatinine Estim Creat Clear Calc Estimated GFR POC Glucose 225 H Random Glucose Calcium Iron 13 L TIBC 318 % Saturation 4 L Unsat Iron Binding 305 Total Bilirubin AST ALT Alkaline Phosphatase Troponin I High Sens Total Protein Albumin Assessment and Plan (1) Anemia: Qualifiers: Anemia type: unspecified type Qualified Code(s): D64.9 - Anemia, unspecified Status: Acute (2) Hypertension: Qualifiers: Hypertension type: primary hypertension Qualified Code(s): I10 - Essential (primary) hypertension Status: Acute (3) Chest pain: Status: Acute Plan Pleasant 73 year female with background history of moderate aortic valve stenosis, known coronary artery disease with left circumflex PCI in June 2023, 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 Biomarkers are normal. EKGs not showing any dynamic changes. Transfuse 1 unit of blood. Start her on oral iron. She has epigastric tenderness and I suspect she has upper GI blood loss. Recommend GI involvement. She is intermediate risk for any perioperative complications. Hold the Eliquis for now. Plavix can be held to if required by GI. Given her stenting in the last 5 months and indication for dual antiplatelet therapy was NSTEMI, would favor not stopping Plavix but if required it can be held. Give 40 of Lasix with blood transfusion. Chronic wheezing due to tracheomalacia. We will follow along with you. Thank you for allowing me to participate in the care of your patient. Please feel free to contact me if you have any questions. Procedures Date of Service Date of Service: 11/29/23
[2023-11-29 13:36] LABS: Folate 9.1 ng/mL (> or = 4.0); Vitamin B12 510 pg/mL (200-900)
[2023-11-29 13:52] LABS: Creatinine Urine 63.11 mg/dL; Potassium Urine Random 26.1 mmol/L
[2023-11-29] MEDS: diphenhydrAMINE HCL 25 MG CAPSULE PO (16:08)
[2023-11-29] MEDS: Acetaminophen 325 MG TABLET 650 MG PO (16:08)
--- NOTE | 2023-11-29 16:22 | PM.EVENT ---
Event Note Date of Service: 11/29/23 Event Note: GI EGD planned for 11/29 for evaluation of ugi symptoms and anemia. Discussed with patient and daughter who agree to proceed. Time Spent With Patient Time: Total time managing care of this patient today ____ minutes.
[2023-11-29 16:31] LABS: Glucose, Whole Blood 101 mg/dL (60-115)
[2023-11-29] MEDS: Furosemide 20 MG/2 ML VIAL IVPUSH (18:41)
[2023-11-29 20:40] LABS: Glucose, Whole Blood 240 mg/dL (60-115)
[2023-11-29] MEDS: Insulin Glargine,Hum.rec.anlog 100 UNIT/ML 10 ML VIAL 15 UNIT SUBCUT (21:14)
[2023-11-29] MEDS: Montelukast Sodium 10 MG TABLET PO (21:14)
[2023-11-29] MEDS: Atorvastatin Calcium 80 MG TABLET PO (21:14)
--- NOTE | 2023-11-29 23:59 | CONS_ITS ---
DATE OF SERVICE: 11/29/2023 REFERRING PHYSICIAN: Dr. Millard REASON FOR CONSULTATION: Epigastric pain. HISTORY OF PRESENT ILLNESS: Patient is a pleasant 73-year-old woman who was admitted to the hospital yesterday after presenting to the emergency room with complaints of epigastric pain radiating to the right upper quadrant and into the chest. This seems worse with eating. She has had no nausea or vomiting and denies hematemesis or melena. She was noted to be anemic in the emergency department and was evaluated with CT scanning showing no significant abnormalities. She does report being on chronic proton pump inhibitor therapy with pantoprazole b.i.d. as an outpatient and was hospitalized in August with epigastric pain. She was referred to her primary GI provider for endoscopy, but this has been canceled according to her. She does have a history of cardiac stenting in June and has been on dual antiplatelet therapy. Her Eliquis has been held since admission. Laboratory data on evaluation showed a hematocrit of 33, which was down from 36 in September. This has remained stable, dropping slightly to 29.6 overnight. MCV is low at 74. PAST MEDICAL HISTORY: 1. Coronary artery disease with history of stent placement as above. 2. NSTEMI prior to stent placement. 3. Lung cancer with lobectomy. 4. Chronic kidney disease. 5. Hypertension. 6. Obstructive sleep apnea. 7. Hyperlipidemia. 8. COPD. 9. Paroxysmal atrial fibrillation. 10. Colon polyps. CURRENT MEDICATIONS: Her current medication list is reviewed in the chart. ALLERGIES: MULTIPLE MEDICATION ALLERGIES ARE REVIEWED. FAMILY HISTORY: This is reviewed with the patient and is noncontributory. SOCIAL HISTORY: There is no current tobacco, alcohol, or substance abuse. PAST SURGICAL HISTORY: Includes carpal tunnel, cholecystectomy, lobectomy, and tracheoplasty for tracheomalacia. REVIEW OF SYSTEMS: SKIN: No pruritus. HEENT: Negative. CARDIOPULMONARY: No shortness of breath or chest pain. GASTROINTESTINAL: As above. GENITOURINARY: Negative. NEUROPSYCHIATRIC: Negative. PHYSICAL EXAMINATION: GENERAL: Shows a pleasant female, lying comfortably in bed. VITAL SIGNS: Reviewed in the electronic medical record and are stable. SKIN: Anicteric. HEENT: Shows no scleral icterus. NECK: Without lymphadenopathy or thyromegaly. LUNGS: Clear. HEART: Shows a regular rate and rhythm. S1, S2. No murmur. ABDOMEN: Soft without focal masses or tenderness. Bowel sounds are present. No organomegaly is noted. EXTREMITIES: Without edema. LABORATORY DATA AND IMAGING STUDIES: Reviewed. IMPRESSION: Epigastric pain with anemia. I have recommended further evaluation with upper GI endoscopy because of her persistent and recurrent symptoms. I have discussed risks and benefits of the procedure with the patient and her daughter. They understand and agreed to proceed. I have asked her to continue her present medications including proton pump inhibitor and clopidogrel as she recently underwent stenting. Thanks for asking me to see her. I will follow her in the hospital with you. MD KIMBER Boogie/DOT / [id number]
[2023-11-30] VITALS (13 sets, daily range): BP systolic 108–148; BP diastolic 46–66; PULSE 58–88; RESP 16–20; TEMP 36–36.8; O2SAT 92–98
[2023-11-30] MEDS: Pantoprazole Sodium 40 MG/10 ML VIAL IVPUSH ×2 (05:53→16:26)
[2023-11-30 06:02] LABS: Hematocrit 35.7 % (37.0-47.0); Hemoglobin 10.8 g/dl (12.0-16.0); Mean Corpuscular HGB Conc 30.3 g/dl (31.0-35.0); Mean Corpuscular Hemoglobin 23.4 pg (27.0-33.0); Mean Corpuscular Volume 77.3 fL (80.0-98.0); Mean Platelet Volume 9.6 fL (9.4-12.3); Platelet Count 316 X10*3/uL (160-400); Red Blood Count 4.62 X10*6/uL (4.20-5.50); White Blood Count 7.8 X10*3/uL (4.8-10.8)
[2023-11-30 06:23] LABS: Anion Gap 16 (12-20); Blood Urea Nitrogen 17 mg/dL (9-16); Calcium 9.2 mg/dL (8.4-10.2); Carbon Dioxide 27 mmol/L (22-29); Chloride 104 mmol/L (96-108); Creatinine Clr Calc Pharmacy 44.3; Estimated Glomerular Filt Rate 44; Glucose Random 133 mg/dL (60-115); Sodium 143 mmol/L (135-145)
[2023-11-30 07:21] LABS: Glucose, Whole Blood 128 mg/dL (60-115)
[2023-11-30] MEDS: Fluticasone/Vilanterol 200/25 BLST.W.DEV 1 PUFF INHALE (07:44)
[2023-11-30] MEDS: Empagliflozin 25 MG TABLET PO (08:24)
[2023-11-30] MEDS: Cholecalciferol (Vitamin D3) 25 MCG TABLET PO (08:24)
[2023-11-30] MEDS: Escitalopram Oxalate 10 MG TABLET PO (08:24)
[2023-11-30] MEDS: busPIRone HCl 5 MG TABLET PO ×2 (08:24→20:27)
[2023-11-30] MEDS: dilTIAZem HCL CD 300 MG CAP.ER.24H PO (08:24)
[2023-11-30] MEDS: Metoprolol Tartrate 50 MG TABLET PO ×2 (08:24→20:26)
[2023-11-30] MEDS: Clopidogrel Bisulfate 75 MG TABLET PO ×3 (08:24→18:16)
[2023-11-30] MEDS: Lidocaine 4 % Patch ADH..PATCH 1 PATCH TRANSDERMA (08:24)
[2023-11-30] MEDS: 0.9 % Sodium Chloride Flush 3 ML SYRINGE IVFLUSH ×2 (08:25→16:26)
--- NOTE | 2023-11-30 09:15 | PM.EVENT ---
Event Note Date of Service: 11/30/23 Event Note: GI Time Spent With Patient Time: Total time managing care of this patient today ____ minutes.
--- NOTE | 2023-11-30 09:59 | P.CONAN_ITS ---
[facility] Active Problems Active Problems: All Active Problems (Updated 11/29/23 @ 13:36 by Brad French MD) Chest pain (Acute) Anemia (Acute) AG (acute kidney injury) (Acute) Angina at rest (Acute) Tracheomalacia, acquired (Acute) CAD (coronary artery disease) (Acute) Respiratory syncytial virus (RSV) (Acute) Pleural thickening (Acute) Non-cardiac chest pain (Acute) Pleural effusion (Acute) Pneumonia (Acute) Epigastric abdominal pain (Acute) Acute exacerbation of chronic obstructive pulmonary disease (Acute) Bilateral leg weakness (Acute) Hx of screening mammography (Acute) Hx of colonoscopy (Acute) Acute exacerbation of chronic obstructive pulmonary disease (Acute) Memory changes (Acute) History of pulmonary embolism (Acute) Obesity (Acute) Dyslipidemia (Acute) Hypertension (Acute) rn transitional (current) use of insulin (Acute) Diabetes type 2, uncontrolled (Acute) Obstructive sleep apnea (Acute) COPD (chronic obstructive pulmonary disease) (Acute) Dysuria (Acute) Past Medical History Medical History (Updated 11/29/23 @ 13:36 by Brad French MD) AG (acute kidney injury) CAD (coronary artery disease) Non-ST elevation [place] (NSTEMI) CKD stage 3 due to type 2 diabetes mellitus Paroxysmal atrial fibrillation Pulmonary embolism Obesity Dyslipidemia Hypertension custodial (current) use of insulin Diabetes type 2, uncontrolled Respiratory failure Obstructive sleep apnea COPD (chronic obstructive pulmonary disease) Family History Family History Mother No problems noted. Father No problems noted. Brother Substance use disorder Brother Substance use disorder Surgical History Surgical History History of carpal tunnel surgery History of cholecystectomy History of lobectomy of lung Status post tracheoplasty History of cardiac cath History of Problems with Anesthesia: No Social History Social History Household Members: Children Household Members Other:: 2 Housing: House Do you presently have visiting nurse or other home services: Yes ([facility] every 2 wks.) Alcohol intake: former Patient Tobacco Use Status: Former Tobacco user Quit Date: 1993 Tobacco use type: Cigarette Cigarettes Per Day: 10 Years Smoked: 3 e-Cigarette/Vaping Use: Never Used Second Hand Smoke Exposure: No Advance Directives Date on File: 06/29/23 service: No Current occupational status: retired Cognitive needs: No Hearing needs: No Vision needs: No Meds Allergies Allergy/AdvReac Type Severity Reaction Status Date / Time Latex, Natural Rubber Allergy Severe blisters Verified 11/27/23 16:39 Sulfa (Sulfonamide Allergy Mild ITCHING, Verified 11/27/23 16:39 Antibiotics) rash [SULFA (SULFONAMIDE ANTIBIOTICS)] nystatin Allergy Unknown rash Verified 11/27/23 16:39 isosorbide [From Imdur] AdvReac Unknown HEADACHES, Verified 11/27/23 16:39 headache tizanidine AdvReac Unknown weakness, Verified 11/27/23 16:39 Hellucination Active Medications: Current Medications Acetaminophen (Acetaminophen 325 Mg Tablet) 650 mg PO Q6H PRN PRN Reason: Pain, Mild (Pain Scale 1-3) Albuterol Sulfate (Albuterol Sulfate 90 Mcg 8 Gm Inhaler) 2 puff INHALE RQ4H PRN PRN Reason: Sob Apixaban (Apixaban 2.5 Mg Tablet) 2.5 mg PO BID [facility] Last Admin: 11/29/23 07:57 Dose: 2.5 mg Atorvastatin Calcium (Atorvastatin Calcium 80 Mg Tablet) 80 mg PO BEDTIME [facility] Last Admin: 11/29/23 21:14 Dose: 80 mg Buspirone HCl (Buspirone Hcl 5 Mg Tablet) 5 mg PO BID [facility] Last Admin: 11/30/23 08:24 Dose: 5 mg Clopidogrel Bisulfate (Clopidogrel Bisulfate 75 Mg Tablet) 75 mg PO DAILY [facility] Last Admin: 11/30/23 08:24 Dose: 75 mg Dextrose (Dextrose 50 % 25 Gm/50 Ml Syringe) 25 gm IVPUSH Q15M PRN; Protocol PRN Reason: per Hypoglycemia Standing Ord. Diltiazem HCl (Diltiazem Hcl Cd 300 Mg Cap.Er.24h) 300 mg PO DAILY [facility]; Protocol Last Admin: 11/30/23 08:24 Dose: 300 mg Empagliflozin (Empagliflozin 25 Mg Tablet) 25 mg PO DAILY [facility] Last Admin: 11/30/23 08:24 Dose: 25 mg Escitalopram Oxalate (Escitalopram Oxalate 10 Mg Tablet) 10 mg PO DAILY [facility] Last Admin: 11/30/23 08:24 Dose: 10 mg Fluticasone/Vilanterol (Fluticasone/Vilanterol 200/25 Blst.W.Dev) 1 puff INHALE DAILY [facility] Last Admin: 11/30/23 07:50 Dose: Not Given Fluticasone/Vilanterol (Fluticasone/Vilanterol 200/25 Blst.W.Dev) 1 puff INHALE RDAILY [facility] Last Admin: 11/30/23 07:44 Dose: 1 puff Glucose (Glucose Gel 15 Gm Gel..Gram.) 15 gm PO Q15M PRN; Protocol PRN Reason: per Hypoglycemia Standing Ord. Hydromorphone HCl (Hydromorphone Hcl 0.5 Mg/0.5 Ml Syringe) 0.5 mg IVPUSH Q4H PRN; Protocol PRN Reason: Pain, Severe (Pain Scale 7-10) Last Admin: 11/29/23 09:45 Dose: 0.5 mg Insulin Glargine (Insulin Glargine,Hum.Rec.Anlog 100 Unit/Ml 10 Ml Vial) 15 unit SUBCUT BEDTIME [facility] Last Admin: 11/29/23 21:14 Dose: 15 unit Insulin Human Lispro (Insulin Lispro 100 Unit/Ml 3 Ml Vial) 0 unit SUBCUT QIDACHS [facility]; Protocol Last Admin: 11/30/23 09:14 Dose: Not Given Lidocaine (Lidocaine 4 % Patch Adh..Patch) 1 patch TRANSDERMA DAILY [facility]; Protocol Last Admin: 11/30/23 08:24 Dose: 1 patch Metoprolol Tartrate (Metoprolol Tartrate 50 Mg Tablet) 50 mg PO BID [facility]; Protocol Last Admin: 11/30/23 08:24 Dose: 50 mg Montelukast Sodium (Montelukast Sodium 10 Mg Tablet) 10 mg PO BEDTIME [facility] Last Admin: 11/29/23 21:14 Dose: 10 mg Nitroglycerin (Nitroglycerin 0.4 Mg Tab.Subl) 0.4 mg SUBLINGUAL Q5MX3 PRN PRN Reason: Chest Pain Last Admin: 11/28/23 21:13 Dose: 0.4 mg Pantoprazole Sodium (Pantoprazole Sodium 40 Mg/10 Ml Vial) 40 mg IVPUSH BID@0630,1630 [facility] Last Admin: 11/30/23 05:53 Dose: 40 mg Sodium Chloride (0.9 % Sodium Chloride Flush 3 Ml Syringe) 3 ml IVFLUSH QSHIFT [facility] Last Admin: 11/30/23 08:25 Dose: 3 ml Vitamin D (Cholecalciferol (Vitamin D3) 25 Mcg Tablet) 25 mcg PO DAILY [facility] Last Admin: 11/30/23 08:24 Dose: 25 mcg Home Medications Medication Instructions Recorded Confirmed Last Taken Type albuterol sulfate 90 mcg/actuation 2 puff inhalation Q4H PRN 06/25/23 11/28/23 Unknown History aerosol inhaler (ProAir HFA) Shortness Of Breath cholecalciferol (vitamin D3) 25 25 mcg PO DAILY 08/11/23 11/28/23 11/27/23 History mcg (1,000 unit) tablet ipratropium 0.5 mg-albuterol 3 mg 3 ml inhalation BID PRN sob 08/11/23 11/28/23 Unknown History (2.5 mg base)/3 mL nebulization soln loratadine 10 mg tablet 10 mg PO DAILY PRN Allergy Symptoms 08/11/23 11/28/23 08/11/23 History atorvastatin 80 mg tablet 80 mg PO BEDTIME 11/28/23 11/28/23 11/27/23 History budesonide-formoterol HFA 160 1 puff inhalation BID 11/28/23 11/28/23 11/27/23 History mcg-4.5 mcg/actuation aerosol inhaler (Symbicort) buspirone 5 mg tablet 5 mg PO BID 11/28/23 11/28/23 11/27/23 History furosemide 20 mg tablet 20 mg PO DAILY 11/28/23 11/28/23 11/27/23 History insulin glargine 100 unit/mL (3 60 unit subcut BEDTIME 11/28/23 11/28/23 11/27/23 History mL) subcutaneous pen (Lantus Solostar U-100 Insulin) lidocaine 4 % topical patch 1 patch transdermal DAILY PRN Pain 11/28/23 11/28/23 Unknown History (Lidocaine Pain Relief) lisinopril 10 mg tablet 10 mg PO DAILY 11/28/23 11/28/23 11/27/23 History metoprolol tartrate 50 mg tablet 50 mg PO BID 11/28/23 11/28/23 11/27/23 History montelukast 10 mg tablet 10 mg PO BEDTIME 0311/28/23 11/27/23 History pantoprazole 40 mg tablet,delayed 40 mg PO BID 11/28/23 11/28/23 11/27/23 History release polyethylene glycol 3350 17 gram 17 g PO DAILY PRN Constipation 11/28/23 11/28/23 Unknown History oral powder packet Exam Height,Weight and Vital Signs: Height 5 ft 4 in Weight 89.811 kg Last Vital Signs Temp 97 F 11/30/23 09:49 Pulse 64 11/30/23 09:49 Resp 18 11/30/23 09:49 BP 137/48 L 11/30/23 09:49 Pulse Ox 98 11/30/23 09:49 O2 Del Method Room Air 11/30/23 09:49 Pertinent Lab Results Pertinent Lab Results: Laboratory Tests 11/27/23 11/27/23 11/28/23 17:55 21:06 01:24 WBC 11.3 H 11.0 H RBC 4.43 4.24 Hgb 10.0 L 9.6 L Hct 33.0 L 31.6 L MCV 74.5 L 74.5 L MCH 22.6 L 22.6 L MCHC 30.3 L 30.4 L RDW 16.6 H 16.7 H Plt Count 364 D 330 MPV 9.5 9.4 Immature Gran % (Auto) 0.9 H 0.5 H Neut % (Auto) 71.6 63.8 Lymph % (Auto) 16.2 L 21.4 [place] % (Auto) 6.6 9.0 Eos % (Auto) 3.8 4.6 H Baso % (Auto) 0.9 0.7 Lymph # (Auto) 1.8 2.4 [place] # (Auto) 0.8 1.0 Eos # (Auto) 0.4 0.5 H Baso # (Auto) 0.1 0.1 Abs Immat Gran (auto) 0.10 H 0.05 H Absolute Neuts (auto) 8.1 7.0 Absolute Nucleated RBC 0.000 0.000 Nucleated RBC % (auto) 0.0 0.0 Sodium 136 139 Potassium 4.0 3.9 Chloride 98 102 Carbon Dioxide 25 23 Anion Gap 17 18 BUN 28 H 26 H Creatinine 1.79 H 1.52 H Estim Creat Clear Calc 29.4 34.7 Estimated GFR 28 33 POC Glucose Random Glucose 294 H 176 H Calcium 9.0 9.0 Magnesium 1.8 Iron TIBC % Saturation Unsat Iron Binding Ferritin Total Bilirubin 0.5 0.6 AST 12 33 H ALT 12 26 Alkaline Phosphatase 138 H 184 H Troponin I High Sens 6.3 D 5.8 5.9 B-Natriuretic Peptide 126 H Total Protein 7.2 7.1 Albumin 4.0 4.0 Lipase 25 Vitamin B12 Folate Urine Color Urine Appearance Urine pH Ur Specific [place] Urine Protein Urine Glucose (UA) Urine Ketones Urine Blood Urine Nitrite Ur Leukocyte Esterase Urine RBC Urine WBC Ur Squamous Epith Cells Urine Bacteria Hyaline Casts Ur Random Sodium Ur Random Potassium Ur Random Chloride Urine Creatinine Influenza Type A (PCR) NEGATIVE Influenza Type B (PCR) NEGATIVE RSV RNA Qual (PCR) NEGATIVE SARS-CoV-2 RNA (RT-PCR) NEGATIVE Blood Type Antibody Screen Crossmatch 11/28/23 11/28/23 11/28/23 02:24 02:35 07:58 WBC RBC Hgb Hct MCV MCH MCHC RDW Plt Count MPV Immature Gran % (Auto) Neut % (Auto) Lymph % (Auto) [place] % (Auto) Eos % (Auto) Baso % (Auto) Lymph # (Auto) [place] # (Auto) Eos # (Auto) Baso # (Auto) Abs Immat Gran (auto) Absolute Neuts (auto) Absolute Nucleated RBC Nucleated RBC % (auto) Sodium Potassium Chloride Carbon Dioxide Anion Gap BUN Creatinine Estim Creat Clear Calc Estimated GFR POC Glucose 163 H 180 H Random Glucose Calcium Magnesium Iron TIBC % Saturation Unsat Iron Binding Ferritin Total Bilirubin AST ALT Alkaline Phosphatase Troponin I High Sens B-Natriuretic Peptide Total Protein Albumin Lipase Vitamin B12 Folate Urine Color Yellow Urine Appearance Cloudy Urine pH 5.5 Ur Specific [place] >= 1.030 H Urine Protein Trace Urine Glucose (UA) >=1000 H Urine Ketones Negative Urine Blood Negative Urine Nitrite Negative Ur Leukocyte Esterase Trace H Urine RBC 0-2 Urine WBC 6-10 Ur Squamous Epith Cells 11-20 Urine Bacteria None Seen Hyaline Casts 0-2 Ur Random Sodium Ur Random Potassium Ur Random Chloride Urine Creatinine Influenza Type A (PCR) Influenza Type B (PCR) RSV RNA Qual (PCR) SARS-CoV-2 RNA (RT-PCR) Blood Type Antibody Screen Crossmatch 11/28/23 11/28/23 11/28/23 11:15 13:18 15:31 WBC RBC Hgb Hct MCV MCH MCHC RDW Plt Count MPV Immature Gran % (Auto) Neut % (Auto) Lymph % (Auto) [place] % (Auto) Eos % (Auto) Baso % (Auto) Lymph # (Auto) [place] # (Auto) Eos # (Auto) Baso # (Auto) Abs Immat Gran (auto) Absolute Neuts (auto) Absolute Nucleated RBC Nucleated RBC % (auto) Sodium 136 Potassium 4.6 Chloride 101 Carbon Dioxide 25 Anion Gap 15 BUN 23 H Creatinine 1.62 H Estim Creat Clear Calc 32.6 Estimated GFR 31 POC Glucose 190 H 174 H Random Glucose 209 H Calcium 8.7 Magnesium Iron TIBC % Saturation Unsat Iron Binding Ferritin Total Bilirubin AST ALT Alkaline Phosphatase Troponin I High Sens B-Natriuretic Peptide Total Protein Albumin Lipase Vitamin B12 Folate Urine Color Urine Appearance Urine pH Ur Specific [place] Urine Protein Urine Glucose (UA) Urine Ketones Urine Blood Urine Nitrite Ur Leukocyte Esterase Urine RBC Urine WBC Ur Squamous Epith Cells Urine Bacteria Hyaline Casts Ur Random Sodium Ur Random Potassium Ur Random Chloride Urine Creatinine Influenza Type A (PCR) Influenza Type B (PCR) RSV RNA Qual (PCR) SARS-CoV-2 RNA (RT-PCR) Blood Type Antibody Screen Crossmatch 11/28/23 11/28/23 11/29/23 20:39 21:08 07:08 WBC RBC Hgb Hct MCV MCH MCHC RDW Plt Count MPV Immature Gran % (Auto) Neut % (Auto) Lymph % (Auto) [place] % (Auto) Eos % (Auto) Baso % (Auto) Lymph # (Auto) [place] # (Auto) Eos # (Auto) Baso # (Auto) Abs Immat Gran (auto) Absolute Neuts (auto) Absolute Nucleated RBC Nucleated RBC % (auto) Sodium Potassium Chloride Carbon Dioxide Anion Gap BUN Creatinine Estim Creat Clear Calc Estimated GFR POC Glucose 182 H 165 H Random Glucose Calcium Magnesium Iron TIBC % Saturation Unsat Iron Binding Ferritin Total Bilirubin AST ALT Alkaline Phosphatase Troponin I High Sens 4.8 B-Natriuretic Peptide Total Protein Albumin Lipase Vitamin B12 Folate Urine Color Urine Appearance Urine pH Ur Specific [place] Urine Protein Urine Glucose (UA) Urine Ketones Urine Blood Urine Nitrite Ur Leukocyte Esterase Urine RBC Urine WBC Ur Squamous Epith Cells Urine Bacteria Hyaline Casts Ur Random Sodium Ur Random Potassium Ur Random Chloride Urine Creatinine Influenza Type A (PCR) Influenza Type B (PCR) RSV RNA Qual (PCR) SARS-CoV-2 RNA (RT-PCR) Blood Type Antibody Screen Crossmatch 11/29/23 11/29/23 11/29/23 07:55 08:30 11:16 WBC RBC Hgb 8.8 L Hct 29.6 L MCV MCH MCHC RDW Plt Count MPV Immature Gran % (Auto) Neut % (Auto) Lymph % (Auto) [place] % (Auto) Eos % (Auto) Baso % (Auto) Lymph # (Auto) [place] # (Auto) Eos # (Auto) Baso # (Auto) Abs Immat Gran (auto) Absolute Neuts (auto) Absolute Nucleated RBC Nucleated RBC % (auto) Sodium 139 Potassium 4.3 Chloride 105 Carbon Dioxide 27 Anion Gap 11 L BUN 21 H Creatinine 1.21 Estim Creat Clear Calc 43.5 Estimated GFR 43 POC Glucose 225 H Random Glucose 174 H Calcium 8.9 Magnesium Iron TIBC % Saturation Unsat Iron Binding Ferritin Total Bilirubin 0.5 AST 18 ALT 21 Alkaline Phosphatase 151 H Troponin I High Sens B-Natriuretic Peptide Total Protein 6.3 L Albumin 3.5 Lipase Vitamin B12 Folate Urine Color Urine Appearance Urine pH Ur Specific [place] Urine Protein Urine Glucose (UA) Urine Ketones Urine Blood Urine Nitrite Ur Leukocyte Esterase Urine RBC Urine WBC Ur Squamous Epith Cells Urine Bacteria Hyaline Casts Ur Random Sodium Ur Random Potassium Ur Random Chloride Urine Creatinine Influenza Type A (PCR) Influenza Type B (PCR) RSV RNA Qual (PCR) SARS-CoV-2 RNA (RT-PCR) Blood Type Antibody Screen Crossmatch 11/29/23 11/29/23 11/29/23 12:15 13:11 13:46 WBC RBC Hgb Hct MCV MCH MCHC RDW Plt Count MPV Immature Gran % (Auto) Neut % (Auto) Lymph % (Auto) [place] % (Auto) Eos % (Auto) Baso % (Auto) Lymph # (Auto) [place] # (Auto) Eos # (Auto) Baso # (Auto) Abs Immat Gran (auto) Absolute Neuts (auto) Absolute Nucleated RBC Nucleated RBC % (auto) Sodium Potassium Chloride Carbon Dioxide Anion Gap BUN Creatinine Estim Creat Clear Calc Estimated GFR POC Glucose Random Glucose Calcium Magnesium Iron 13 L TIBC 318 % Saturation 4 L Unsat Iron Binding 305 Ferritin 30 Total Bilirubin AST ALT Alkaline Phosphatase Troponin I High Sens B-Natriuretic Peptide Total Protein Albumin Lipase Vitamin B12 510 Folate 9.1 Urine Color Urine Appearance Urine pH Ur Specific [place] Urine Protein Urine Glucose (UA) Urine Ketones Urine Blood Urine Nitrite Ur Leukocyte Esterase Urine RBC Urine WBC Ur Squamous Epith Cells Urine Bacteria Hyaline Casts Ur Random Sodium 27.0 Ur Random Potassium 26.1 Ur Random Chloride 28.0 Urine Creatinine 63.11 Influenza Type A (PCR) Influenza Type B (PCR) RSV RNA Qual (PCR) SARS-CoV-2 RNA (RT-PCR) Blood Type A Positive Antibody Screen NEGATIVE Crossmatch See Detail 11/29/23 11/29/23 11/30/23 16:28 20:22 05:52 WBC 7.8 RBC 4.62 Hgb 10.8 L D Hct 35.7 L D MCV 77.3 L MCH 23.4 L MCHC 30.3 L RDW 17.0 H Plt Count 316 MPV 9.6 Immature Gran % (Auto) Neut % (Auto) Lymph % (Auto) [place] % (Auto) Eos % (Auto) Baso % (Auto) Lymph # (Auto) [place] # (Auto) Eos # (Auto) Baso # (Auto) Abs Immat Gran (auto) Absolute Neuts (auto) Absolute Nucleated RBC 0.000 Nucleated RBC % (auto) 0.0 Sodium 143 Potassium 4.0 Chloride 104 Carbon Dioxide 27 Anion Gap 16 BUN 17 H Creatinine 1.19 Estim Creat Clear Calc 44.3 Estimated GFR 44 POC Glucose 101 240 H Random Glucose 133 H Calcium 9.2 Magnesium Iron TIBC % Saturation Unsat Iron Binding Ferritin Total Bilirubin AST ALT Alkaline Phosphatase Troponin I High Sens B-Natriuretic Peptide Total Protein Albumin Lipase Vitamin B12 Folate Urine Color Urine Appearance Urine pH Ur Specific [place] Urine Protein Urine Glucose (UA) Urine Ketones Urine Blood Urine Nitrite Ur Leukocyte Esterase Urine RBC Urine WBC Ur Squamous Epith Cells Urine Bacteria Hyaline Casts Ur Random Sodium Ur Random Potassium Ur Random Chloride Urine Creatinine Influenza Type A (PCR) Influenza Type B (PCR) RSV RNA Qual (PCR) SARS-CoV-2 RNA (RT-PCR) Blood Type Antibody Screen Crossmatch 11/30/23 07:07 WBC RBC Hgb Hct MCV MCH MCHC RDW Plt Count MPV Immature Gran % (Auto) Neut % (Auto) Lymph % (Auto) [place] % (Auto) Eos % (Auto) Baso % (Auto) Lymph # (Auto) [place] # (Auto) Eos # (Auto) Baso # (Auto) Abs Immat Gran (auto) Absolute Neuts (auto) Absolute Nucleated RBC Nucleated RBC % (auto) Sodium Potassium Chloride Carbon Dioxide Anion Gap BUN Creatinine Estim Creat Clear Calc Estimated GFR POC Glucose 128 H Random Glucose Calcium Magnesium Iron TIBC % Saturation Unsat Iron Binding Ferritin Total Bilirubin AST ALT Alkaline Phosphatase Troponin I High Sens B-Natriuretic Peptide Total Protein Albumin Lipase Vitamin B12 Folate Urine Color Urine Appearance Urine pH Ur Specific [place] Urine Protein Urine Glucose (UA) Urine Ketones Urine Blood Urine Nitrite Ur Leukocyte Esterase Urine RBC Urine WBC Ur Squamous Epith Cells Urine Bacteria Hyaline Casts Ur Random Sodium Ur Random Potassium Ur Random Chloride Urine Creatinine Influenza Type A (PCR) Influenza Type B (PCR) RSV RNA Qual (PCR) SARS-CoV-2 RNA (RT-PCR) Blood Type Antibody Screen Crossmatch Airway Mallampati Class: IV TM Dist: <=3cm Loose/Missing/Broken Teeth: No Heart: reg rate irr rhythm Lungs: cta b/l Assessment and Plan Final Anesthetic Review History of Problems with Anesthesia: No NPO: Yes ASA Class: III and Emergency Final Preanesthetic Review: No Changes in Pt Med Stat, Meds/Allgs Chart Reviewed, Consent Obtained/Reviewed and Anes Risks/Benef Reviewed Patient Risk: High Procedure Risk: Intermediate Anesthetic Plan Anesthetic Plan: MAC: Disposition: Standard PACU
--- NOTE | 2023-11-30 10:00 | PC.NURSE ---
BS 141
--- NOTE | 2023-11-30 10:02 | PC.NURSE ---
PT DOMINIKS C/P SOB NAD DENIES PAIN ANESTHESIA OF NATI RAAZ HER JARDIANCE TODAY DR DUNN SPOKE CONCERNING RISK PT OKAY TOPROCEED
[2023-11-30 10:05] LABS: Glucose, Whole Blood 141 mg/dL (60-115)
--- NOTE | 2023-11-30 10:06 | PC.NURSE ---
ADDENDUM COMPLTED BY DR DUNN PT EMERGENT CASE EVERYONE AWARE PT ON ELIQUIS LAST DOSE 11/28 AND PLAVIX TODAY OKAY TO TAKE PER NOTE PT HAS HX DVT/PE AND NSTEMI WITH STENTS JUN 2023 NOTE FROM CARDIAC CONCERNING C/P FEW DAYS PRIOR OKAY TO PROCEED PER ANESHTESIA DENIES ANY C/P/SOB
--- NOTE | 2023-11-30 10:28 | PM.EVENT ---
Event Note Date of Service: 11/30/23 Event Note: GI EGD shows mild esophagitis, biopsied. Ok to restart antiplatet regimen Advance diet F/u biopsy results cont ppi Time Spent With Patient Time: Total time managing care of this patient today ____ minutes.
--- NOTE | 2023-11-30 10:36 | P.PNIM_ITS ---
Subjective Subjective Date of Service: 11/30/23 Interval History: F/u on epigastric pain she feels better this morning, no sob Physical Exam 2 Vital Signs: Vital Signs: Last Vital Signs Temp 97 F 11/30/23 09:49 Pulse 64 11/30/23 09:49 Resp 18 11/30/23 09:49 BP 137/48 L 11/30/23 09:49 Pulse Ox 98 11/30/23 09:49 O2 Del Method Room Air 11/30/23 09:49 BMI result Body Mass Index 34.0 Objective Data Active Medications Acetaminophen (Acetaminophen 325 Mg Tablet) 650 mg PO Q6H PRN PRN Reason: Pain, Mild (Pain Scale 1-3) Albuterol Sulfate (Albuterol Sulfate 90 Mcg 8 Gm Inhaler) 2 puff INHALE RQ4H PRN PRN Reason: Sob Apixaban (Apixaban 2.5 Mg Tablet) 2.5 mg PO BID [facility] Last Admin: 11/29/23 07:57 Dose: 2.5 mg Documented By: FLASH Atorvastatin Calcium (Atorvastatin Calcium 80 Mg Tablet) 80 mg PO BEDTIME [facility] Last Admin: 11/29/23 21:14 Dose: 80 mg Documented By: PAN Buspirone HCl (Buspirone Hcl 5 Mg Tablet) 5 mg PO BID [facility] Last Admin: 11/30/23 08:24 Dose: 5 mg Documented By: XOCHITL Clopidogrel Bisulfate (Clopidogrel Bisulfate 75 Mg Tablet) 75 mg PO DAILY [facility] Last Admin: 11/30/23 08:24 Dose: 75 mg Documented By: XOCHITL Dextrose (Dextrose 50 % 25 Gm/50 Ml Syringe) 25 gm IVPUSH Q15M PRN; Protocol PRN Reason: per Hypoglycemia Standing Ord. Diltiazem HCl (Diltiazem Hcl Cd 300 Mg Cap.Er.24h) 300 mg PO DAILY [facility]; Protocol Last Admin: 11/30/23 08:24 Dose: 300 mg Documented By: XOCHITL Empagliflozin (Empagliflozin 25 Mg Tablet) 25 mg PO DAILY [facility] Last Admin: 11/30/23 08:24 Dose: 25 mg Documented By: XOCHITL Escitalopram Oxalate (Escitalopram Oxalate 10 Mg Tablet) 10 mg PO DAILY [facility] Last Admin: 11/30/23 08:24 Dose: 10 mg Documented By: XOCHITL Fluticasone/Vilanterol (Fluticasone/Vilanterol 200/25 Blst.W.Dev) 1 puff INHALE DAILY [facility] Last Admin: 11/30/23 07:50 Dose: Not Given Documented By: DAY Non-Admin Reason: Duplicate Order Fluticasone/Vilanterol (Fluticasone/Vilanterol 200/25 Blst.W.Dev) 1 puff INHALE RDAILY [facility] Last Admin: 11/30/23 07:44 Dose: 1 puff Documented By: DAY Glucose (Glucose Gel 15 Gm Gel..Gram.) 15 gm PO Q15M PRN; Protocol PRN Reason: per Hypoglycemia Standing Ord. Hydromorphone HCl (Hydromorphone Hcl 0.5 Mg/0.5 Ml Syringe) 0.5 mg IVPUSH Q4H PRN; Protocol PRN Reason: Pain, Severe (Pain Scale 7-10) Last Admin: 11/29/23 09:45 Dose: 0.5 mg Documented By: FLASH Insulin Glargine (Insulin Glargine,Hum.Rec.Anlog 100 Unit/Ml 10 Ml Vial) 15 unit SUBCUT BEDTIME [facility] Last Admin: 11/29/23 21:14 Dose: 15 unit Documented By: PAN Insulin Human Lispro (Insulin Lispro 100 Unit/Ml 3 Ml Vial) 0 unit SUBCUT QIDACHS [facility]; Protocol Last Admin: 11/30/23 09:14 Dose: Not Given Documented By: XOCHITL Non-Admin Reason: No Insulin Coverage Lidocaine (Lidocaine 4 % Patch Adh..Patch) 1 patch TRANSDERMA DAILY [facility]; Protocol Last Admin: 11/30/23 08:24 Dose: 1 patch Documented By: XOCHITL Metoprolol Tartrate (Metoprolol Tartrate 50 Mg Tablet) 50 mg PO BID [facility]; Protocol Last Admin: 11/30/23 08:24 Dose: 50 mg Documented By: XOCHITL Montelukast Sodium (Montelukast Sodium 10 Mg Tablet) 10 mg PO BEDTIME [facility] Last Admin: 11/29/23 21:14 Dose: 10 mg Documented By: PAN Nitroglycerin (Nitroglycerin 0.4 Mg Tab.Subl) 0.4 mg SUBLINGUAL Q5MX3 PRN PRN Reason: Chest Pain Last Admin: 11/28/23 21:13 Dose: 0.4 mg Documented By: PAN Pantoprazole Sodium (Pantoprazole Sodium 40 Mg/10 Ml Vial) 40 mg IVPUSH BID@0630,0690 [facility] Last Admin: 11/30/23 05:53 Dose: 40 mg Documented By: PAN Sodium Chloride (0.9 % Sodium Chloride Flush 3 Ml Syringe) 3 ml IVFLUSH QSHIFT [facility] Last Admin: 11/30/23 08:25 Dose: 3 ml Documented By: XOCHITL Vitamin D (Cholecalciferol (Vitamin D3) 25 Mcg Tablet) 25 mcg PO DAILY [facility] Last Admin: 11/30/23 08:24 Dose: 25 mcg Documented By: XOCHILT Labs 11/30/23 05:52 11/30/23 05:52 Labs: Laboratory Results - last 24 hr 11/29/23 11/29/23 11/29/23 11:16 12:15 13:11 MCV MCH MCHC RDW Plt Count MPV Absolute Nucleated RBC Nucleated RBC % (auto) Anion Gap Estim Creat Clear Calc Estimated GFR POC Glucose 225 H Random Glucose Calcium Iron 13 L TIBC 318 % Saturation 4 L Unsat Iron Binding 305 Ferritin 30 Vitamin B12 510 Folate 9.1 Ur Random Sodium 27.0 Ur Random Potassium 26.1 Ur Random Chloride 28.0 Urine Creatinine 63.11 Blood Type Antibody Screen Crossmatch 11/29/23 11/29/23 11/29/23 13:46 16:28 20:22 MCV MCH MCHC RDW Plt Count MPV Absolute Nucleated RBC Nucleated RBC % (auto) Anion Gap Estim Creat Clear Calc Estimated GFR POC Glucose 101 240 H Random Glucose Calcium Iron TIBC % Saturation Unsat Iron Binding Ferritin Vitamin B12 Folate Ur Random Sodium Ur Random Potassium Ur Random Chloride Urine Creatinine Blood Type A Positive Antibody Screen NEGATIVE Crossmatch See Detail 11/30/23 11/30/23 11/30/23 05:52 07:07 10:00 MCV 77.3 L MCH 23.4 L MCHC 30.3 L RDW 17.0 H Plt Count 316 MPV 9.6 Absolute Nucleated RBC 0.000 Nucleated RBC % (auto) 0.0 Anion Gap 16 Estim Creat Clear Calc 44.3 Estimated GFR 44 POC Glucose 128 H 141 H Random Glucose 133 H Calcium 9.2 Iron TIBC % Saturation Unsat Iron Binding Ferritin Vitamin B12 Folate Ur Random Sodium Ur Random Potassium Ur Random Chloride Urine Creatinine Blood Type Antibody Screen Crossmatch Assessment and Plan (1) Anemia: Status: Acute (2) AG (acute kidney injury): Status: Acute Plan 73 years old woman admitted with: Right upper/epigastric pain. LFTs and lipase normal. s/p cholecystectomy. Abdominal pelvis CT scan showed no acute abnormalities. Pain is most epigastric: troponin neg , she said intailly sob with excersion ,currently denies sob. echocardiogram is pending liver enzymes seems improved (AST 33, AKP 150s) otherwise normal GI recommends EGD today AG--likely pre renal d/t diuretics and JOE, Cr now normal. Hold JOE and diuretics until after procedure Chronic anemia. Baseline 10-11. Hemogoblin dropped from 10 to 8.8 and was transfused 1 units and now 10.8 hold futher transfusion. continue Iron COPD. No acute symptoms. Type 2 diabetes mellitus. Lantus reduced at bedtime while NPO, continue sliding and if droping add IVF with sugar continue jardiance Essential hypertension. Continue metoprolol. Lisinopril on hold due to AG. HFpEF. BNP at baseline. Lungs clear. CXR negative. echo pending Obstructive sleep apnea. Continue CPAP at bedtime. History of pulmonary embolism. Continue Eliquis. CAD, s/p PCI. June 2023. Continue home meds. DVT prophylaxis: Eliquis ongoing need hospitalization:Abdominal pain, chest pain, work up in progress with EGD today Quality Stroke Does the patient have a stroke diagnosis?: No VTE Prior VTE?: No VTE Risk Level:: Medical - moderate - high VTE Device Contraindication: Treatment Not Indicated VTE Drug Contraindication: Treatment Not Indicated
[2023-11-30 11:10] LABS: Glucose, Whole Blood 135 mg/dL (60-115)
--- NOTE | 2023-11-30 11:12 | OP_ITS ---
DATE OF SERVICE: 11/30/2023 SURGEON: Marcel Sorenson MD INDICATIONS: Anemia and epigastric pain. PREOPERATIVE DIAGNOSIS: POSTOPERATIVE DIAGNOSIS: PROCEDURE PERFORMED: Upper endoscopy with biopsy. ESTIMATED BLOOD LOSS: COMPLICATIONS: ANESTHESIA: Monitored anesthesia care. ASSISTANTS: SPECIMENS: DESCRIPTION OF PROCEDURE: A history and physical was performed. The risks and benefits of the procedure were explained to the patient. Informed consent was obtained. The patient was placed in the left lateral decubitus position. The Olympus video gastroscope was introduced into the esophagus, stomach, and duodenum. Examination was performed. The scope was removed. She tolerated the procedure well and was taken to the recovery area in stable condition. FINDINGS: Esophagus: The esophagus showed a mild distal esophagitis with some whitish areas suspicious for possible underlying Bea esophagitis. Biopsies were obtained from the distal esophagus. Stomach: The stomach showed some mild nodularity in the antrum, mainly in the posterior wall. Biopsies were obtained from the antrum. Duodenum: The bulb and second portion were normal. IMPRESSION: Esophagitis. RECOMMENDATION: 1. Follow up the biopsy results. 2. Dual anti-platelet therapy/anticoagulants are not contraindicated.. 3. Continue proton pump inhibitor. MD KIMBER Boogie/DOT / [id number] MTDD
[2023-11-30 11:25] LABS: Alanine Aminotransferase 18 U/L (0-31); Albumin Level 3.7 g/dL (3.5-5.0); Alkaline Phosphatase 152 U/L (39-117); Aspartate Amino Transferase 14 U/L (5-31); Bilirubin Direct 0.3 mg/dL (0.0-0.5); Bilirubin Total 0.7 mg/dL (0.0-1.0); Total Protein 6.7 g/dL (6.5-8.0)
--- NOTE | 2023-11-30 11:29 | PM.PNCARD ---
Subjective Subjective Date of Service: 11/30/23 Interval history: Seen and examined at bedside. Feeling ok. for endoscopy today. Physical Exam Vital Signs: Last Vital Signs Temp 97 F 11/30/23 09:49 Pulse 64 11/30/23 09:49 Resp 18 11/30/23 09:49 BP 137/48 L 11/30/23 09:49 Pulse Ox 98 11/30/23 09:49 O2 Del Method Room Air 11/30/23 09:49 BMI result Body Mass Index 34.0 GENERAL APPEARANCE: in no acute distress, pleasant. NECK: no carotid bruit, no obvious jugular venous distention. SKIN: no suspicious lesions, warm and dry. HEART: Systolic murmur aortic area with preserved 2nd heart sound, regular rate and rhythm. LUNGS: Mild wheezes bilaterally. ABDOMEN: soft, epigastric tenderness. EXTREMITIES: no edema. PERIPHERAL PULSES: equal. NEUROLOGIC: No gross deficits, AAO X 3 Objective Labs and Meds 11/30/23 05:52 11/30/23 05:52 Lab results: Laboratory Results - last 24 hr 11/29/23 11/29/23 11/29/23 12:15 13:11 13:46 WBC RBC Hgb Hct MCV MCH MCHC RDW Plt Count MPV Absolute Nucleated RBC Nucleated RBC % (auto) Sodium Potassium Chloride Carbon Dioxide Anion Gap BUN Creatinine Estim Creat Clear Calc Estimated GFR POC Glucose Random Glucose Calcium Iron 13 L TIBC 318 % Saturation 4 L Unsat Iron Binding 305 Ferritin 30 Total Bilirubin Direct Bilirubin AST ALT Alkaline Phosphatase Total Protein Albumin Vitamin B12 510 Folate 9.1 Ur Random Sodium 27.0 Ur Random Potassium 26.1 Ur Random Chloride 28.0 Urine Creatinine 63.11 Blood Type A Positive Antibody Screen NEGATIVE Crossmatch See Detail 11/29/23 11/29/23 11/30/23 16:28 20:22 05:52 WBC 7.8 RBC 4.62 Hgb 10.8 L D Hct 35.7 L D MCV 77.3 L MCH 23.4 L MCHC 30.3 L RDW 17.0 H Plt Count 316 MPV 9.6 Absolute Nucleated RBC 0.000 Nucleated RBC % (auto) 0.0 Sodium 143 Potassium 4.0 Chloride 104 Carbon Dioxide 27 Anion Gap 16 BUN 17 H Creatinine 1.19 Estim Creat Clear Calc 44.3 Estimated GFR 44 POC Glucose 101 240 H Random Glucose 133 H Calcium 9.2 Iron TIBC % Saturation Unsat Iron Binding Ferritin Total Bilirubin 0.7 Direct Bilirubin 0.3 AST 14 ALT 18 Alkaline Phosphatase 152 H Total Protein 6.7 Albumin 3.7 Vitamin B12 Folate Ur Random Sodium Ur Random Potassium Ur Random Chloride Urine Creatinine Blood Type Antibody Screen Crossmatch 11/30/23 11/30/23 11/30/23 07:07 10:00 11:06 WBC RBC Hgb Hct MCV MCH MCHC RDW Plt Count MPV Absolute Nucleated RBC Nucleated RBC % (auto) Sodium Potassium Chloride Carbon Dioxide Anion Gap BUN Creatinine Estim Creat Clear Calc Estimated GFR POC Glucose 128 H 141 H 135 H Random Glucose Calcium Iron TIBC % Saturation Unsat Iron Binding Ferritin Total Bilirubin Direct Bilirubin AST ALT Alkaline Phosphatase Total Protein Albumin Vitamin B12 Folate Ur Random Sodium Ur Random Potassium Ur Random Chloride Urine Creatinine Blood Type Antibody Screen Crossmatch Progress Note: A&P Assessment and plan (1) Chest pain: Status: Acute (2) Anemia: Status: Acute (3) CAD (coronary artery disease): Status: Acute Plan Pleasant 73 year female with background history of mild to moderate aortic valve stenosis, known coronary artery disease with left circumflex PCI in June 2023, 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 Biomarkers are normal. EKGs not showing any dynamic changes. She has been transfused 1 unit of PRBCs. for EGD today. Eliquis and plavix will need to be resumed based on endoscopy result and GI recs. I think she will need a stress test once she stabilizes from anemia if she continues to get symptoms. Chronic wheezing due to tracheomalacia. We will follow along with you. Thank you for allowing me to participate in the care of your patient. Please feel free to contact me if you have any questions. Time Spent With Patient Time: Total time managing care of this patient today ____ minutes. Progress Note: Quality Stroke Does the patient have a stroke diagnosis?: No Procedures Date of Service Date of Service: 11/30/23
--- NOTE | 2023-11-30 15:31 | P.CDIM_ITS ---
PROVIDER RESPONSE TEXT: To clarify, the appropriate diagnosis supported by the clinical indicators: Iron deficiency anemia: suspected QUERY TEXT: PHYSICIAN'S DOCUMENTATION REQUEST Date of Query: 11/30/2023 11:58 AM EDT Patient Name: Saima Restrepo Admit Date: 11/28/2023 Dear Segun Sexton, A review of the medical record indicates additional documentation may be needed. Please review below and update the documentation accordingly. Clinical Indicators: Chronic anemia. Baseline 10-11. Hemoglobin dropped from 10 to 8.8 was transfused 1 unit and now 10.8 hold further transfusion. Continue Iron. LABS: Iron 13 L Based on the above, could you clarify which of the following is the most likely type of anemia you ar e evaluating, treating, and/or monitoring? Iron deficiency anemia possible, probable, suspected etc. Other Other (explain) Clinically unable to determine (explain) Thank you, Angella Stern, CCS, CDIS Use of terms such as suspected, likely, concern for, or probable (associated with a specific diagnosi s that is being evaluated, monitored, or treated as if it exists) are acceptable and can be coded in the inpatient se tting, when documented at the time of discharge. Please use your independent medical judgment in providing your response. THIS QUERY IS PART OF THE PERMANENT MEDICAL RECORD
[2023-11-30 16:05] LABS: Glucose, Whole Blood 269 mg/dL (60-115)
[2023-11-30] MEDS: Insulin Lispro 100 UNIT/ML 3 ML VIAL SUBCUT (16:26)
[2023-11-30 19:51] LABS: Glucose, Whole Blood 151 mg/dL (60-115)
[2023-11-30] MEDS: Nitroglycerin 0.4 MG TAB.SUBL SUBLINGUAL (20:25)
[2023-11-30] MEDS: Apixaban 2.5 MG TABLET PO (20:27)
[2023-11-30] MEDS: Atorvastatin Calcium 80 MG TABLET PO (20:27)
[2023-11-30] MEDS: Montelukast Sodium 10 MG TABLET PO (20:27)
[2023-11-30] MEDS: Acetaminophen 325 MG TABLET 650 MG PO (21:28)
[2023-11-30] MEDS: Insulin Glargine,Hum.rec.anlog 100 UNIT/ML 10 ML VIAL 15 UNIT SUBCUT (21:29)
[2023-12-01] VITALS (8 sets, daily range): BP systolic 129–169; BP diastolic 61–73; PULSE 62–90; RESP 16–18; TEMP 36.3–36.4; O2SAT 92–99
[2023-12-01] MEDS: Pantoprazole Sodium 40 MG/10 ML VIAL IVPUSH ×2 (05:08→16:54)
[2023-12-01 07:29] LABS: Glucose, Whole Blood 149 mg/dL (60-115)
[2023-12-01] MEDS: Fluticasone/Vilanterol 200/25 BLST.W.DEV 1 PUFF INHALE (07:45)
[2023-12-01] MEDS: Clopidogrel Bisulfate 75 MG TABLET PO ×2 (08:11→08:16)
[2023-12-01] MEDS: Empagliflozin 25 MG TABLET PO (08:11)
[2023-12-01] MEDS: dilTIAZem HCL CD 300 MG CAP.ER.24H PO (08:11)
[2023-12-01] MEDS: Apixaban 2.5 MG TABLET PO ×2 (08:11→10:39)
[2023-12-01] MEDS: Metoprolol Tartrate 50 MG TABLET PO ×2 (08:11→20:14)
[2023-12-01] MEDS: Cholecalciferol (Vitamin D3) 25 MCG TABLET PO (08:11)
[2023-12-01] MEDS: busPIRone HCl 5 MG TABLET PO ×2 (08:11→20:14)
[2023-12-01] MEDS: Escitalopram Oxalate 10 MG TABLET PO (08:11)
[2023-12-01] MEDS: 0.9 % Sodium Chloride Flush 3 ML SYRINGE IVFLUSH ×3 (08:12→16:44)
[2023-12-01] MEDS: Lidocaine 4 % Patch ADH..PATCH 1 PATCH TRANSDERMA (08:12)
--- NOTE | 2023-12-01 09:50 | HO.POSTANES ---
Post Anesthesia Evaluation Post Anesthesia Evaluation Date of Service: 12/01/23 Vital Signs: Vital Signs Temp Pulse Resp BP Pulse Ox O2 Del Method 12/01/23 07:47 71 18 12/01/23 07:08 97.5 F 70 18 142/68 H 94 Room Air 12/01/23 03:41 97.6 F 69 16 138/65 92 CPAP 11/30/23 23:17 98.2 F 70 16 136/60 95 CPAP 11/30/23 23:06 20 Anesthesia: Monitored Mental Status: Awake Pain Control: Satisfactory Nausea/Vomiting: None Hydration: Adequate Anesthesia-Related Issues: No Anes. Related Issues
--- NOTE | 2023-12-01 10:16 | P.DS_ITS ---
DS: Providers Provider Date of Service: 12/02/23 Date of admission: 11/28/23 00:23 Primary care physician: Amanda Leiva MD Consults: 11/28/23 12:33 Consult to Gastroenterology Routine Consulting Provider: Marcel Sorenson Reason for consultation: epigastric pain -unclera etiology Has provider been notified: No 11/28/23 20:46 Consult to Cardiology Routine Consulting Provider: [facility] Cardiovascular Services Reason for consultation: hx CAD/NM, c/o chest pain Has provider been notified: Yes DS: Diagnosis Discharge Diagnosis (1) Chest pain: Status: Resolved (2) Anemia: Status: Acute DS: Summary Hospital Course Hospital Course: admission HPI Chief Complaint: Multiple symptoms Saima Restrepo is a 73 years old woman with past medical history significant for COPD -on home oxygen, CAD (cardiac catheterization June 2023 - 99% stenosis of circumflex s/p PCI and normal left main), tracheomalacia (s/p tracheoplasty), lung cancer (s/p lobectomy), HFpEF, mild , type 2 DM on insulin and hypertension presents to the emergency department complaining of right upper quadrant/epigastric pain that started Morgan. She describes the pain as intermittent and radiating to the chest. It is 7/10 in intensity. Pain increases with food ingestion. She does have shortness of breath with exertion. She denied nausea, vomiting, diarrhea, fevers chills. Did not report black or blurry stools. She is a former tobacco smoker. Denies alcohol abuse or illicit drug use. Abdominal surgery is remarkable for cholecystectomy. In the ED, she was found to have stable vital signs. Patient has not required supplemental oxygen. Blood workup is remarkable for slightly leukocytosis, 11.3. Hemoglobin is 10.0 (prior 11.8). BUN and creatinine elevated (1.79 and 28 respectively). Electrolytes are normal. Glucose 294. LFTs are normal. Lipase is normal. BNP is 126 which is around baseline. Troponin is negative x2. EKG showed normal sinus rhythm with a heart rate of 86 beats per minutes and no ischemic changes. CXR showed chronic pleural and parenchymal scarring. Abdomen pelvis CT scan showed no acute intra-abdominal or intrapelvic abnormalities. There is moderate colonic diverticulosis without evidence of acute diverticulitis. Right kidney atrophy noted. ED tx: NS 1 L, morphine 8 mg IV (total). hospital course: Right upper/epigastric pain. LFTs and lipase normal. s/p cholecystectomy. Abdominal pelvis CT scan showed no acute abnormalities. Pain was most epigastric: troponin neg. She was evaluated by store standards associate and not thought to be having acute ACS. echocardiogram Showed ejection fraction greater than 70% and no regional wall motion abnormality. she ultimately underwent GI evaluation and had EGD on 11/30/2023 and found to have esophagitis biopsy were taken. It was recommended that she continue taking PPI twice a day. She will follow up with Dr. Joe regarding the biopsy results. Patient continue to have pain after EGD and had another CT of abdomen on 11/30 again showed no actue finding AG on CKD 2--likely pre renal d/t diuretics, JOE with dehydration, once was hydrated renal function came back to within baseline and therfore will continue JOE and diuretics and follow up on outpatient basis Chronic anemia. Baseline 10-11. Hemogoblin dropped from 10 to 8.8 and was transfused 1 units and now 10.8 COPD. No acute symptoms. Type 2 diabetes mellitus. Lantus was reduced during hospitaliaztion from 60 units at night to 15 units, blood sugars have stayed below 200 for the most and therefore at dischare, recommend reducing Lantus to 30 units of 50%, and additionally Humalog short acting has been added per sliding scale . Essential hypertension. Continue metoprolol and resume Lisinopril HFpEF. BNP at baseline. Lungs clear. CXR negative. echo EF > 70 Obstructive sleep apnea. Continue CPAP at bedtime. History of pulmonary embolism. Continue Eliquis, dose was reduced to 2.5 d/t concern for gi bleeding until after procedure was completed and now changed back to 5 bid CAD, s/p PCI. June 2023. Continue home meds including Plavix, metorpolol an statin Time Attestation Discharge Coordination Time (in mins): 45 minutes Quality: Safe Use of Opioids Does Pt have an Active Cancer Diagnosis on the Problem List?: No Quality: Stroke Does the patient have a stroke diagnosis?: No Physical Exam Vital Signs: Vital Signs: Last Vital Signs Temp 97.5 F 12/01/23 07:08 Pulse 71 12/01/23 07:47 Resp 18 12/01/23 07:47 BP 142/68 H 12/01/23 07:08 Pulse Ox 94 12/01/23 07:08 O2 Del Method Room Air 12/01/23 07:08 BMI result Body Mass Index 34.0 DS: Data Data Completed and Pending Completed studies during hospitalization [Text1]: Procedures Assistance with Respiratory Ventilation, Less than 24 Consecutive Hours, Continuous Positive Airway Pressure (08/29/23) Pending studies at discharge: Pending at discharge 11/30/23 10:20 Surgical [PTH] Routine Labs on day of discharge: Laboratory Results - last 24 hr 11/30/23 11/30/23 11/30/23 05:52 11:06 15:58 POC Glucose 135 H 269 H Total Bilirubin 0.7 Direct Bilirubin 0.3 AST 14 ALT 18 Alkaline Phosphatase 152 H Total Protein 6.7 Albumin 3.7 11/30/23 12/01/23 19:43 07:21 POC Glucose 151 H 149 H Total Bilirubin Direct Bilirubin AST ALT Alkaline Phosphatase Total Protein Albumin Discharge Plan Discharge Anticipated Discharge Date/Time: 12/02/23 13:04 Patient Disposition: Home Health Service Discharge Diagnosis: Chest pain Referrals: Enmanuel KESSLER [Outside] - 1 Week Amanda Leiva MD [Primary Care Provider] - 1 Week Discharge Medications: New insulin lispro [Humalog KwikPen Insulin] 100 unit/mL insulin pen 1 sliding scale dose subcut USEASDIRECTD Qty: 15 0RF Rx Instructions: BG <111 0 units, 111-150 - 0 units, 151-200 2 units, 201-250 4 units, 251-300 6 units, 301-350 8 units, >350 10 units Continued (DME) FreeStyle Lite Strips Strip See Rx Instructions .Route Qty: 100 3RF Rx Instructions: test blood sugar once a day (DME) FreeStyle Kelly 2 Sensor Kit See Rx Instructions .ROUTE .MEDSUPPLY Qty: 6 3RF Rx Instructions: As directed every 2 weeks clopidogrel 75 mg tablet 75 mg PO DAILY Qty: 90 1RF Jardiance 25 mg tablet 25 mg PO DAILY Qty: 90 1RF (DME) belgica Hackettc See Rx Instructions .Route Qty: 1 0RF Rx Instructions: As directed ipratropium-albuterol 0.5 mg-3 mg(2.5 mg base)/3 mL solution for nebulization 3 ml inhalation BID PRN (Reason: sob) loratadine 10 mg Tablet 10 mg PO DAILY PRN (Reason: Allergy Symptoms) cholecalciferol (vitamin D3) 25 mcg (1,000 unit) Tablet 25 mcg PO DAILY docusate sodium 100 mg Capsule 100 mg PO BID PRN (Reason: Constipation) Qty: 30 0RF acetaminophen 325 mg Tablet 650 mg PO Q6H PRN (Reason: pain) Qty: 30 0RF albuterol sulfate [ProAir HFA] 90 mcg/actuation Hfa Aerosol Inhaler 2 puff INHALATION Q4H PRN (Reason: Shortness Of Breath) Hold Instructions: Resume on 06/29/23. pantoprazole 40 mg tablet,delayed release (DR/EC) 40 mg PO BID buspirone 5 mg tablet 5 mg PO BID furosemide 20 mg tablet 20 mg PO DAILY montelukast 10 mg tablet 10 mg PO BEDTIME atorvastatin 80 mg tablet 80 mg PO BEDTIME Eliquis 5 mg tablet 5 mg PO BID Qty: 180 3RF Hold Instructions: Resume on 06/30/23. hold until patient on iv heparin Changed insulin glargine [Lantus Solostar U-100 Insulin] 100 unit/mL (3 mL) insulin pen 25 unit subcut BEDTIME Qty: 15 0RF Discontinued insulin lispro [Humalog KwikPen Insulin] 100 unit/mL insulin pen 1 sliding scale dose subcut QIDACHS MDD 60 Qty: 15 5RF Rx Instructions: BG <111 0 units, 111-150 - 12 units, 151-200 14 units, 201-250 16 units, 251- 300 18 units, 301-350 20 units, >350 20 units and call No Action diltiazem HCl 300 mg capsule,extended release 24 hr 300 mg PO DAILY Qty: 90 1RF insulin lispro [Humalog KwikPen Insulin] 100 unit/mL Insulin Pen 1 sliding scale dose SUBCUT USEASDIRECTD Patient Comments: ADDED PER DR. WILD Rx Instructions: BG <111 0 units, 111-150 - 0 units, 151-200 2 units, 201-250 4 units, 251-300 6 units, 301-350 8 units, >350 10 units famotidine [Pepcid] 40 mg tablet 40 mg PO BEDTIME Qty: 30 2RF ipratropium-albuterol 0.5 mg-3 mg(2.5 mg base)/3 mL solution for nebulization 3 ml inhalation Q8H PRN (Reason: wheezing) Qty: 180 3RF Trulicity 4.5 mg/0.5 mL pen injector 4.5 mg subcut QWEEK Qty: 6 3RF citalopram 20 mg tablet 30 mg PO DAILY Qty: 135 1RF budesonide-formoterol [Symbicort] 160-4.5 mcg/actuation HFA aerosol inhaler 2 puff INHALATION BID 30 Days Qty: 10.2 4RF lisinopril 20 mg tablet 20 mg PO DAILY Qty: 90 1RF Rx Instructions: Dose increased carvedilol 6.25 mg tablet 6.25 mg PO BID Qty: 60 3RF Rx Instructions: must administer with a meal/food Stop metoprolol, start carvedilol Discharge Orders: Discharge Order (Routine); Ordered 12/01/23 Ordered By: Segun Wild Diet: Advance to usual diet Activity on Discharge: As tolerated Stand Alone Forms: Patient Portal Discharge page Print Language: Wolof Care Plan Goals: Returned to baseline functioning and resolution of chest pain Health Concerns: noncardiac chest pain esophagitis Plan of Treatment: take Protonix as recommended and follow up with Dr. Sorenson regarding the biopsy results. Continue all other medication as before. Please note that your insulin dose has been changed: Take Lantus 30 untis at night not 60 Also take Humalog per sliding scale write down your sugars and report them to your PCP Assessment: See above. Patient Instructions: Esophagitis (DC) Discharge Date/Time: 12/02/23 14:54
--- NOTE | 2023-12-01 10:38 | MHC.CM.PN ---
Patient has been medically cleared for dc to home today with [facility]. Patient was active with [facility], who has been notified of today's dc. CM addressed IMM with Patient at bedside and the original was given to her while a copy was placed on the chart. Patient's Daughter will transport.
[2023-12-01] MEDS: Furosemide 20 MG TABLET PO (10:39)
[2023-12-01] MEDS: lisinopriL 10 MG TABLET PO (10:40)
[2023-12-01 11:44] LABS: Glucose, Whole Blood 178 mg/dL (60-115)
[2023-12-01] MEDS: HYDROmorphone HCl 0.5 MG/0.5 ML SYRINGE IVPUSH ×4 (12:09→23:40)
[2023-12-01] MEDS: Insulin Lispro 100 UNIT/ML 3 ML VIAL SUBCUT ×2 (12:11→22:22)
[2023-12-01] MEDS: Magnesium Hydrox/Alum Hydrox 30 ML ORAL.SUSP PO (13:55)
--- NOTE | 2023-12-01 14:36 | PM.PNCARD ---
Subjective Subjective Date of Service: 12/01/23 Interval history: Seen examined at bedside. Complaining of mid abdominal pain radiating along the Center for chest. She was given Dilaudid earlier. EGD has shown Bea esophagitis. Physical Exam Vital Signs: Last Vital Signs Temp 97.6 F 12/01/23 11:06 Pulse 66 12/01/23 11:06 Resp 18 12/01/23 11:06 BP 142/63 H 12/01/23 11:06 Pulse Ox 95 12/01/23 11:06 O2 Del Method Room Air 12/01/23 11:06 BMI result Body Mass Index 34.0 GENERAL APPEARANCE: Distressed due to pain. NECK: no carotid bruit, no obvious jugular venous distention. SKIN: no suspicious lesions, warm and dry. HEART: Systolic murmur aortic area with preserved 2nd heart sound, regular rate and rhythm. LUNGS: Mild wheezes bilaterally. ABDOMEN: soft, epigastric tenderness. EXTREMITIES: no edema. PERIPHERAL PULSES: equal. NEUROLOGIC: No gross deficits, AAO X 3 Objective Labs and Meds 11/30/23 05:52 11/30/23 05:52 Lab results: Laboratory Results - last 24 hr 11/30/23 11/30/23 12/01/23 15:58 19:43 07:21 POC Glucose 269 H 151 H 149 H 12/01/23 11:35 POC Glucose 178 H Progress Note: A&P Assessment and plan (1) Chest pain: Status: Acute (2) Anemia: Status: Acute Plan [age] year female who is presenting with chest discomfort shortness of breath in the setting of anemia and iron-deficiency. She had circumflex PCI in June 2023 for NSTEMI. She has been on Plavix and Eliquis for previous DVT. Given iron-deficiency anemia Eliquis was held. She underwent EGD which has shown Bea esophagitis. I doubt this explains her anemia. She clearly had iron-deficiency and likely cause his blood loss due to her anticoagulation. Having said that she needs anticoagulation and would benefit from being on Plavix and Eliquis. Discussed with GI and if they are okay continue Eliquis and Plavix. She should be on iron supplements. We will do further workup for the chest pain as outpatient. Significant abdominal pain today. Unclear about the etiology but abdominal appears fairly benign with epigastric tenderness which was present previously 2. She was given some Dilaudid. Thank you for allowing me to participate in the care of your patient. Please feel free to contact me if you have any questions. Time Spent With Patient Time: Total time managing care of this patient today ____ minutes. Progress Note: Quality Stroke Does the patient have a stroke diagnosis?: No Procedures Date of Service Date of Service: 12/01/23
[2023-12-01 15:26] LABS: Hematocrit 33.4 % (37.0-47.0); Mean Corpuscular HGB Conc 29.9 g/dl (31.0-35.0); Mean Corpuscular Hemoglobin 23.1 pg (27.0-33.0); Mean Corpuscular Volume 77.1 fL (80.0-98.0); Mean Platelet Volume 9.2 fL (9.4-12.3); Platelet Count 314 X10*3/uL (160-400); Red Blood Count 4.33 X10*6/uL (4.20-5.50); Red Cell Distribution Width 17.3 % (11.0-16.0); White Blood Count 8.5 X10*3/uL (4.8-10.8)
[2023-12-01 15:38] LABS: Anion Gap 12 (12-20); Blood Urea Nitrogen 17 mg/dL (9-16); Calcium 8.7 mg/dL (8.4-10.2); Carbon Dioxide 32 mmol/L (22-29); Chloride 101 mmol/L (96-108); Creatinine Clr Calc Pharmacy 31.7; Estimated Glomerular Filt Rate 30; Glucose Random 166 mg/dL (60-115); Potassium 4.4 mmol/L (3.3-5.1); Sodium 141 mmol/L (135-145)
--- NOTE | 2023-12-01 15:43 | P.PNIM_ITS ---
Subjective Subjective Date of Service: 12/01/23 Interval History: F/u on abdominal pain she feels better this morning, had no abdominal pain, and there was plan for discharge but she later developed severe abd pain and received dilaudid, exam was unremarkable. Physical Exam 2 Vital Signs: Vital Signs: Last Vital Signs Temp 97.6 F 12/01/23 11:06 Pulse 66 12/01/23 11:06 Resp 18 12/01/23 11:06 BP 142/63 H 12/01/23 11:06 Pulse Ox 95 12/01/23 11:06 O2 Del Method Room Air 12/01/23 11:06 BMI result Body Mass Index 34.0 General: AO X 3, no acute distress Resp: CTA bilateral CVS: S1,S2,RRR GI: +BS, mild epig tenderness, no distention, no guarding Skin: No rash Neuro: motor grossly intact Psych: appropriate affect Objective Data Active Medications Acetaminophen (Acetaminophen 325 Mg Tablet) 650 mg PO Q6H PRN PRN Reason: Pain, Mild (Pain Scale 1-3) Last Admin: 11/30/23 21:28 Dose: 650 mg Documented By: STEFFANY Albuterol Sulfate (Albuterol Sulfate 90 Mcg 8 Gm Inhaler) 2 puff INHALE RQ4H PRN PRN Reason: Sob Apixaban (Apixaban 5 Mg Tablet) 5 mg PO BID [facility] Atorvastatin Calcium (Atorvastatin Calcium 80 Mg Tablet) 80 mg PO BEDTIME [facility] Last Admin: 11/30/23 20:27 Dose: 80 mg Documented By: STEFFAYN Buspirone HCl (Buspirone Hcl 5 Mg Tablet) 5 mg PO BID [facility] Last Admin: 12/01/23 08:11 Dose: 5 mg Documented By: JADYN Clopidogrel Bisulfate (Clopidogrel Bisulfate 75 Mg Tablet) 75 mg PO DAILY [facility] Last Admin: 12/01/23 08:11 Dose: 75 mg Documented By: JADYN Dextrose (Dextrose 50 % 25 Gm/50 Ml Syringe) 25 gm IVPUSH Q15M PRN; Protocol PRN Reason: per Hypoglycemia Standing Ord. Diltiazem HCl (Diltiazem Hcl Cd 300 Mg Cap.Er.24h) 300 mg PO DAILY [facility]; Protocol Last Admin: 12/01/23 08:11 Dose: 300 mg Documented By: JADYN Empagliflozin (Empagliflozin 25 Mg Tablet) 25 mg PO DAILY [facility] Last Admin: 12/01/23 08:11 Dose: 25 mg Documented By: JADYN Escitalopram Oxalate (Escitalopram Oxalate 10 Mg Tablet) 10 mg PO DAILY [facility] Last Admin: 12/01/23 08:11 Dose: 10 mg Documented By: JADYN Fluticasone/Vilanterol (Fluticasone/Vilanterol 200/25 Blst.W.Dev) 1 puff INHALE DAILY [facility] Last Admin: 12/01/23 07:24 Dose: Not Given Documented By: DAY Non-Admin Reason: Duplicate Order Fluticasone/Vilanterol (Fluticasone/Vilanterol 200/25 Blst.W.Dev) 1 puff INHALE RDAILY [facility] Last Admin: 12/01/23 07:45 Dose: 1 puff Documented By: DAY Furosemide (Furosemide 20 Mg Tablet) 20 mg PO DAILY [facility]; Protocol Last Admin: 12/01/23 10:39 Dose: 20 mg Documented By: JADYN Glucose (Glucose Gel 15 Gm Gel..Gram.) 15 gm PO Q15M PRN; Protocol PRN Reason: per Hypoglycemia Standing Ord. Hydromorphone HCl (Hydromorphone Hcl 0.5 Mg/0.5 Ml Syringe) 0.5 mg IVPUSH Q4H PRN; Protocol PRN Reason: Pain, Severe (Pain Scale 7-10) Last Admin: 12/01/23 12:53 Dose: 0.5 mg Documented By: JADYN Insulin Glargine (Insulin Glargine,Hum.Rec.Anlog 100 Unit/Ml 10 Ml Vial) 15 unit SUBCUT BEDTIME [facility] Last Admin: 11/30/23 21:29 Dose: 15 unit Documented By: STEFFANY Insulin Human Lispro (Insulin Lispro 100 Unit/Ml 3 Ml Vial) 0 unit SUBCUT QIDACHS [facility]; Protocol Last Admin: 12/01/23 12:11 Dose: 2 unit Documented By: JADYN Lidocaine (Lidocaine 4 % Patch Adh..Patch) 1 patch TRANSDERMA DAILY [facility]; Protocol Last Admin: 12/01/23 08:12 Dose: 1 patch Documented By: JADYN Lisinopril (Lisinopril 10 Mg Tablet) 10 mg PO DAILY [facility]; Protocol Last Admin: 12/01/23 10:40 Dose: 10 mg Documented By: JADYN Metoprolol Tartrate (Metoprolol Tartrate 50 Mg Tablet) 50 mg PO BID [facility]; Protocol Last Admin: 12/01/23 08:11 Dose: 50 mg Documented By: JADYN Montelukast Sodium (Montelukast Sodium 10 Mg Tablet) 10 mg PO BEDTIME [facility] Last Admin: 11/30/23 20:27 Dose: 10 mg Documented By: STEFFANY Nitroglycerin (Nitroglycerin 0.4 Mg Tab.Subl) 0.4 mg SUBLINGUAL Q5MX3 PRN PRN Reason: Chest Pain Last Admin: 11/30/23 20:25 Dose: 0.4 mg Documented By: STEFFANY Pantoprazole Sodium (Pantoprazole Sodium 40 Mg/10 Ml Vial) 40 mg IVPUSH BID@0630,1630 [facility] Last Admin: 12/01/23 05:08 Dose: 40 mg Documented By: STEFFANY Sodium Chloride (0.9 % Sodium Chloride Flush 3 Ml Syringe) 3 ml IVFLUSH QSHIFT [facility] Last Admin: 12/01/23 08:12 Dose: 3 ml Documented By: JADYN Vitamin D (Cholecalciferol (Vitamin D3) 25 Mcg Tablet) 25 mcg PO DAILY [facility] Last Admin: 12/01/23 08:11 Dose: 25 mcg Documented By: JADYN Labs 12/01/23 15:21 12/01/23 15:21 Labs: Laboratory Results - last 24 hr 11/30/23 11/30/23 12/01/23 15:58 19:43 07:21 MCV MCH MCHC RDW Plt Count MPV Absolute Nucleated RBC Nucleated RBC % (auto) Anion Gap Estim Creat Clear Calc Estimated GFR POC Glucose 269 H 151 H 149 H Random Glucose Calcium 12/01/23 12/01/23 11:35 15:21 MCV 77.1 L MCH 23.1 L MCHC 29.9 L RDW 17.3 H Plt Count 314 MPV 9.2 L Absolute Nucleated RBC 0.000 Nucleated RBC % (auto) 0.0 Anion Gap 12 Estim Creat Clear Calc 31.7 Estimated GFR 30 POC Glucose 178 H Random Glucose 166 H Calcium 8.7 Assessment and Plan (1) Anemia: Status: Acute (2) AG (acute kidney injury): Status: Acute Plan 73 years old woman admitted with: Right upper/epigastric pain. LFTs and lipase normal. s/p cholecystectomy. Abdominal pelvis CT scan showed no acute abnormalities. Pain is most epigastric with some tenderness: troponin neg , she said intailly sob with excersion ,currently denies sob. She had EGD yesterday showing esophagitis, liver enzymes seems improved (AST 33, AKP 150s) otherwise normal She was planned for discharge and then had abdominal pain, exam fairly bening, getting another scan, labs otherwise ok AG--likely pre renal d/t diuretics and JOE, Cr now normal. now has mild ag again, give some ivf, renal consult Chronic anemia. Baseline 10-11. Hemogoblin dropped from 10 to 8.8 and was transfused 1 units and now 10.8 hold futher transfusion. H/H is stable COPD. No acute symptoms. Type 2 diabetes mellitus. Lantus, jardiance and Essential hypertension. Continue metoprolol, lisinopril HFpEF. BNP at baseline. Lungs clear. CXR negative. echo pending Obstructive sleep apnea. Continue CPAP at bedtime. History of pulmonary embolism. Continue Eliquis. CAD, s/p PCI. June 2023. Continue home meds. DVT prophylaxis: Eliquis ongoing need hospitalization:Abdominal pain, chest pain, work up in progress with EGD today DC on hold until at least tomorrow Quality Stroke Does the patient have a stroke diagnosis?: No VTE Prior VTE?: No VTE Risk Level:: Medical - moderate - high VTE Device Contraindication: Treatment Not Indicated VTE Drug Contraindication: Treatment Not Indicated
[2023-12-01 16:06] LABS: Alanine Aminotransferase 14 U/L (0-31); Albumin Level 3.6 g/dL (3.5-5.0); Alkaline Phosphatase 138 U/L (39-117); Aspartate Amino Transferase 11 U/L (5-31); Bilirubin Direct 0.1 mg/dL (0.0-0.5); Bilirubin Total 0.4 mg/dL (0.0-1.0); Lipase 17 U/L (8-78); Total Protein 6.5 g/dL (6.5-8.0)
[2023-12-01 16:17] LABS: Glucose, Whole Blood 143 mg/dL (60-115)
[2023-12-01] MEDS: Sodium Chloride 0.45 % 1,000 ML 80 ML IVCONT (16:53)
[2023-12-01] MEDS: Montelukast Sodium 10 MG TABLET PO (20:13)
[2023-12-01] MEDS: Apixaban 5 MG TABLET PO (20:14)
[2023-12-01] MEDS: Atorvastatin Calcium 80 MG TABLET PO (20:14)
[2023-12-01 22:15] LABS: Glucose, Whole Blood 156 mg/dL (60-115)
[2023-12-01] MEDS: Insulin Glargine,Hum.rec.anlog 100 UNIT/ML 10 ML VIAL 15 UNIT SUBCUT (22:21)
[2023-12-02] VITALS (7 sets, daily range): BP systolic 119–148; BP diastolic 55–76; PULSE 63–68; RESP 17–20; TEMP 35.8–37.3; O2SAT 94–100
[2023-12-02] MEDS: 0.9 % Sodium Chloride Flush 3 ML SYRINGE IVFLUSH
[2023-12-02] MEDS: Acetaminophen 325 MG TABLET 650 MG PO (03:30)
[2023-12-02] MEDS: Omeprazole 40 MG CAPSULE.DR PO (05:53)
[2023-12-02] MEDS: Sodium Chloride 0.45 % 1,000 ML 80 ML IVCONT (05:55)
[2023-12-02 07:16] LABS: Anion Gap 14 (12-20); Blood Urea Nitrogen 19 mg/dL (9-16); Calcium 8.6 mg/dL (8.4-10.2); Carbon Dioxide 29 mmol/L (22-29); Chloride 101 mmol/L (96-108); Creatinine Clr Calc Pharmacy 41.1; Estimated Glomerular Filt Rate 41; Glucose Random 124 mg/dL (60-115); Potassium 4.1 mmol/L (3.3-5.1); Sodium 140 mmol/L (135-145)
[2023-12-02 07:45] LABS: Glucose, Whole Blood 125 mg/dL (60-115)
[2023-12-02] MEDS: Escitalopram Oxalate 10 MG TABLET PO (08:22)
[2023-12-02] MEDS: dilTIAZem HCL CD 300 MG CAP.ER.24H PO (08:22)
[2023-12-02] MEDS: Empagliflozin 25 MG TABLET PO (08:22)
[2023-12-02] MEDS: Metoprolol Tartrate 50 MG TABLET PO (08:22)
[2023-12-02] MEDS: Apixaban 5 MG TABLET PO (08:22)
[2023-12-02] MEDS: Clopidogrel Bisulfate 75 MG TABLET PO (08:23)
[2023-12-02] MEDS: lisinopriL 10 MG TABLET PO (08:23)
[2023-12-02] MEDS: Furosemide 20 MG TABLET PO (08:23)
[2023-12-02] MEDS: Cholecalciferol (Vitamin D3) 25 MCG TABLET PO (08:24)
[2023-12-02] MEDS: busPIRone HCl 5 MG TABLET PO (08:24)
[2023-12-02] MEDS: Lidocaine 4 % Patch ADH..PATCH 1 PATCH TRANSDERMA (08:25)
[2023-12-02] MEDS: Fluticasone/Vilanterol 200/25 BLST.W.DEV 1 PUFF INHALE (08:33)
--- NOTE | 2023-12-02 10:41 | P.CONNP_ITS ---
History of Present Illness Reason for Consult Consult date: 12/02/23 Reason for consult: AG Chief Complaint Chief complaint: CP, dyspnea, anemia History of Present Illness Narrative: 73 years old woman with a medical history significant for COPD -on home oxygen, CAD (cardiac catheterization June 2023 - 99% stenosis of circumflex s/p PCI and normal left main), tracheomalacia (s/p tracheoplasty), lung cancer (s/p lobectomy), HFpEF, mild , type 2 DM on insulin and hypertension presents to the emergency department complaining of right upper quadrant/epigastric pain that started Wednesday. She describes the pain as intermittent and radiating to the chest. It is 7/10 in intensity. Pain increases with food ingestion. She does have shortness of breath with exertion. She denied nausea, vomiting, diarrhea, fevers chills Baseline creatinine is around 1.0-1.2 mg/dL. During this admission creatinine peaked to 1.6 mg/dL. With IV hydration creatinine is down to 1.3. Review of Systems Constitutional: Denies anorexia, Denies fever(s) and Denies weakness Eyes: Denies blurry vision Cardiovascular: Denies no additional cardiovascular complaints and Denies dyspnea Respiratory: Reports no additional respiratory complaints, Reports cough and Denies dyspnea Gastrointestinal: Denies melena and Denies diarrhea Genitourinary: Denies hematuria Musculoskeletal: Denies tingling Skin/Breast: Denies rash Denies focal weakness, Denies tingling, Denies tremor(s) and Denies weakness PMFSH Past Medical History Medical History (Updated 11/29/23 @ 13:36 by Brad French MD) AG (acute kidney injury) CAD (coronary artery disease) Non-ST elevation [place] (NSTEMI) CKD stage 3 due to type 2 diabetes mellitus Paroxysmal atrial fibrillation Pulmonary embolism Obesity Dyslipidemia 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 Father No problems noted. Brother Substance use disorder Brother Substance use disorder Surgical History Surgical History History of carpal tunnel surgery History of cholecystectomy History of lobectomy of lung Status post tracheoplasty History of cardiac cath Social History Social History Household Members: Children Household Members Other:: 2 Housing: House Do you presently have visiting nurse or other home services: Yes ([facility] every 2 wks.) Alcohol intake: former Patient Tobacco Use Status: Former Tobacco user Quit Date: 1993 Tobacco use type: Cigarette Cigarettes Per Day: 10 Years Smoked: 3 e-Cigarette/Vaping Use: Never Used Second Hand Smoke Exposure: No Advance Directives Date on File: 06/29/23 service: No Current occupational status: retired Cognitive needs: No Hearing needs: No Vision needs: No Meds Allergies Allergy/AdvReac Type Severity Reaction Status Date / Time Latex, Natural Rubber Allergy Severe blisters Verified 11/27/23 16:39 Sulfa (Sulfonamide Allergy Mild ITCHING, Verified 11/27/23 16:39 Antibiotics) rash [SULFA (SULFONAMIDE ANTIBIOTICS)] nystatin Allergy Unknown rash Verified 11/27/23 16:39 isosorbide [From Imdur] AdvReac Unknown HEADACHES, Verified 11/27/23 16:39 headache tizanidine AdvReac Unknown weakness, Verified 11/27/23 16:39 Hellucination Active Medications: Current Medications Acetaminophen (Acetaminophen 325 Mg Tablet) 650 mg PO Q6H PRN PRN Reason: Pain, Mild (Pain Scale 1-3) Last Admin: 12/02/23 03:30 Dose: 650 mg Albuterol Sulfate (Albuterol Sulfate 90 Mcg 8 Gm Inhaler) 2 puff INHALE RQ4H PRN PRN Reason: Sob Apixaban (Apixaban 5 Mg Tablet) 5 mg PO BID [facility] Last Admin: 12/02/23 08:22 Dose: 5 mg Atorvastatin Calcium (Atorvastatin Calcium 80 Mg Tablet) 80 mg PO BEDTIME [facility] Last Admin: 12/01/23 20:14 Dose: 80 mg Buspirone HCl (Buspirone Hcl 5 Mg Tablet) 5 mg PO BID [facility] Last Admin: 12/02/23 08:24 Dose: 5 mg Clopidogrel Bisulfate (Clopidogrel Bisulfate 75 Mg Tablet) 75 mg PO DAILY [facility] Last Admin: 12/02/23 08:23 Dose: 75 mg Dextrose (Dextrose 50 % 25 Gm/50 Ml Syringe) 25 gm IVPUSH Q15M PRN; Protocol PRN Reason: per Hypoglycemia Standing Ord. Diltiazem HCl (Diltiazem Hcl Cd 300 Mg Cap.Er.24h) 300 mg PO DAILY [facility]; Protocol Last Admin: 12/02/23 08:22 Dose: 300 mg Empagliflozin (Empagliflozin 25 Mg Tablet) 25 mg PO DAILY [facility] Last Admin: 12/02/23 08:22 Dose: 25 mg Escitalopram Oxalate (Escitalopram Oxalate 10 Mg Tablet) 10 mg PO DAILY [facility] Last Admin: 12/02/23 08:22 Dose: 10 mg Fluticasone/Vilanterol (Fluticasone/Vilanterol 200/25 Blst.W.Dev) 1 puff INHALE DAILY [facility] Last Admin: 12/02/23 09:30 Dose: Not Given Fluticasone/Vilanterol (Fluticasone/Vilanterol 200/25 Blst.W.Dev) 1 puff INHALE RDAILY [facility] Last Admin: 12/02/23 08:33 Dose: 1 puff Furosemide (Furosemide 20 Mg Tablet) 20 mg PO DAILY [facility]; Protocol Last Admin: 12/02/23 08:23 Dose: 20 mg Glucose (Glucose Gel 15 Gm Gel..Gram.) 15 gm PO Q15M PRN; Protocol PRN Reason: per Hypoglycemia Standing Ord. Hydromorphone HCl (Hydromorphone Hcl 0.5 Mg/0.5 Ml Syringe) 0.5 mg IVPUSH Q4H PRN; Protocol PRN Reason: Pain, Severe (Pain Scale 7-10) Last Admin: 12/01/23 23:40 Dose: 0.5 mg Sodium Chloride (Sodium Chloride 0.45 %) 1,000 mls @ 80 mls/hr IVCONT .[id number] [facility] Last Admin: 12/02/23 05:55 Dose: 80 mls/hr Insulin Glargine (Insulin Glargine,Hum.Rec.Anlog 100 Unit/Ml 10 Ml Vial) 15 unit SUBCUT BEDTIME [facility] Last Admin: 12/01/23 22:21 Dose: 15 unit Insulin Human Lispro (Insulin Lispro 100 Unit/Ml 3 Ml Vial) 0 unit SUBCUT QIDACHS [facility]; Protocol Last Admin: 12/02/23 07:56 Dose: Not Given Lidocaine (Lidocaine 4 % Patch Adh..Patch) 1 patch TRANSDERMA DAILY [facility]; Protocol Last Admin: 12/02/23 08:25 Dose: 1 patch Lisinopril (Lisinopril 10 Mg Tablet) 10 mg PO DAILY [facility]; Protocol Last Admin: 12/02/23 08:23 Dose: 10 mg Metoprolol Tartrate (Metoprolol Tartrate 50 Mg Tablet) 50 mg PO BID [facility]; Protocol Last Admin: 12/02/23 08:22 Dose: 50 mg Montelukast Sodium (Montelukast Sodium 10 Mg Tablet) 10 mg PO BEDTIME [facility] Last Admin: 12/01/23 20:13 Dose: 10 mg Nitroglycerin (Nitroglycerin 0.4 Mg Tab.Subl) 0.4 mg SUBLINGUAL Q5MX3 PRN PRN Reason: Chest Pain Last Admin: 11/30/23 20:25 Dose: 0.4 mg Omeprazole (Omeprazole 40 Mg Capsule.Dr) 40 mg PO BID@0630,1630 [facility] Last Admin: 12/02/23 05:53 Dose: 40 mg Sodium Chloride (0.9 % Sodium Chloride Flush 3 Ml Syringe) 3 ml IVFLUSH QSHIFT [facility] Last Admin: 12/02/23 08:27 Dose: Not Given Vitamin D (Cholecalciferol (Vitamin D3) 25 Mcg Tablet) 25 mcg PO DAILY [facility] Last Admin: 12/02/23 08:24 Dose: 25 mcg Home Medications Medication Instructions Recorded Confirmed Last Taken Type albuterol sulfate 90 mcg/actuation 2 puff inhalation Q4H PRN 06/25/23 11/28/23 Unknown History aerosol inhaler (ProAir HFA) Shortness Of Breath cholecalciferol (vitamin D3) 25 25 mcg PO DAILY 08/11/23 11/28/23 11/27/23 History mcg (1,000 unit) tablet ipratropium 0.5 mg-albuterol 3 mg 3 ml inhalation BID PRN sob 08/11/23 11/28/23 Unknown History (2.5 mg base)/3 mL nebulization soln loratadine 10 mg tablet 10 mg PO DAILY PRN Allergy Symptoms 08/11/23 11/28/23 08/11/23 History atorvastatin 80 mg tablet 80 mg PO BEDTIME 11/28/23 11/28/23 11/27/23 History budesonide-formoterol HFA 160 1 puff inhalation BID 11/28/23 11/28/23 11/27/23 History mcg-4.5 mcg/actuation aerosol inhaler (Symbicort) buspirone 5 mg tablet 5 mg PO BID 11/28/23 11/28/23 11/27/23 History furosemide 20 mg tablet 20 mg PO DAILY 11/28/23 11/28/23 11/27/23 History insulin glargine 100 unit/mL (3 60 unit subcut BEDTIME 11/28/23 11/28/23 11/27/23 History mL) subcutaneous pen (Lantus Solostar U-100 Insulin) lidocaine 4 % topical patch 1 patch transdermal DAILY PRN Pain 11/28/23 11/28/23 Unknown History (Lidocaine Pain Relief) lisinopril 10 mg tablet 10 mg PO DAILY 11/28/23 11/28/23 11/27/23 History metoprolol tartrate 50 mg tablet 50 mg PO BID 11/28/23 11/28/23 11/27/23 History montelukast 10 mg tablet 10 mg PO BEDTIME 11/28/23 11/28/23 11/27/23 History pantoprazole 40 mg tablet,delayed 40 mg PO BID 11/28/23 11/28/23 11/27/23 History release polyethylene glycol 3350 17 gram 17 g PO DAILY PRN Constipation 11/28/23 11/28/23 Unknown History oral powder packet Physical Exam Vital Signs: Last Vital Signs Temp 96.5 F L 12/02/23 07:04 Pulse 63 12/02/23 08:33 Resp 17 12/02/23 08:33 BP 148/76 H 12/02/23 07:04 Pulse Ox 10 L 12/02/23 09:17 O2 Del Method Nasal Cannula 12/02/23 09:17 O2 Flow Rate 2 12/02/23 04:00 BMI result Body Mass Index 34.0 Const General: comfortable Nutritional Appearance: well nourished Orientation/consciousness: patient oriented x3 HEENT Head: No normal to inspection Mouth: moist mucous membranes Neck Neck: Yes supple and Yes no JVD Resp Auscultation: clear to auscultation bilaterally, no rales and rub present Cardio Jugular venous distension: no JVD Palpation: no palpable S3 and no palpable S4 Heart sounds: no rubs GI Palpation (GI): Soft to palpation and nontender Percussion: No Fluid wave present General: Yes no CVA tenderness Back/Spine/Pelvis Back: no CVA tenderness Skin General skin exam: no rashes or lesions noted Neuro General: patient oriented x3 Extrem General: Yes no pedal edema and No clubbing Results Lab Results 12/01/23 15:21 12/02/23 06:52 Lab results: Chemistry 11/30/23 12/01/23 12/02/23 05:52 15:21 06:52 Sodium 143 141 140 Potassium 4.0 4.4 4.1 Carbon Dioxide 27 32 H 29 BUN 17 H 17 H 19 H Creatinine 1.19 1.66 H 1.28 Calcium 9.2 8.7 8.6 Hematology 11/30/23 12/01/23 05:52 15:21 WBC 7.8 8.5 Hgb 10.8 L D 10.0 L Plt Count 316 314 Urine Studies 11/29/23 13:11 Urine Creatinine 63.11 Assessment and Plan (1) AG (acute kidney injury): Status: Acute Plan Elderly woman with acute kidney injury superimposed on chronic kidney disease in the setting of diabetes mellitus. 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 Baseline creatinine is around 1.2 mg/dL. Right kidney is atrophic and I suspect she has underlying renal artery disease Blood pressure is acceptable at this time. Superimposed AG is most likely due to hypoperfusion. No evidence of obstruction on CT scan. Urine sediment appears bland therefore glomerular or interstitial disease seems unlikely at this time. With IV hydration renal function has significantly improved. At this point the goal is to slow the progression of renal disease Continue to avoid nephrotoxic agents Keep intake more than output. She will arrange for outpatient follow-up. Procedures Date of Service Date of Service: 12/02/23
[2023-12-02 11:22] LABS: Glucose, Whole Blood 190 mg/dL (60-115)
[2023-12-02] MEDS: Insulin Lispro 100 UNIT/ML 3 ML VIAL SUBCUT (11:41)
--- NOTE | 2023-12-02 13:02 | P.PNGI_ITS ---
Subjective Subjective Date of Service: 12/02/23 Interval History: tolerating diet CT yest neg for any acute process Critical Care Time (minutes): 0 Physical Exam 2 Vital Signs: Vital Signs: Last Vital Signs Temp 98.6 F 12/02/23 12:19 Pulse 67 12/02/23 10:58 Resp 18 12/02/23 10:58 BP 129/61 12/02/23 10:58 Pulse Ox 97 12/02/23 10:58 O2 Del Method Room Air 12/02/23 10:58 O2 Flow Rate 2 12/02/23 04:00 BMI result Body Mass Index 34.0 GI: Other: abdomen is soft with mild epigastric tenderness Objective Data Labs 12/01/23 15:21 12/02/23 06:52 Labs: Laboratory Results - last 24 hr 12/01/23 12/01/23 12/01/23 15:21 16:07 21:06 WBC 8.5 RBC 4.33 Hgb 10.0 L Hct 33.4 L MCV 77.1 L MCH 23.1 L MCHC 29.9 L RDW 17.3 H Plt Count 314 MPV 9.2 L Absolute Nucleated RBC 0.000 Nucleated RBC % (auto) 0.0 Sodium 141 Potassium 4.4 Chloride 101 Carbon Dioxide 32 H Anion Gap 12 BUN 17 H Creatinine 1.66 H Estim Creat Clear Calc 31.7 Estimated GFR 30 POC Glucose 143 H 156 H Random Glucose 166 H Calcium 8.7 Total Bilirubin 0.4 Direct Bilirubin 0.1 AST 11 ALT 14 Alkaline Phosphatase 138 H Total Protein 6.5 Albumin 3.6 Lipase 17 12/02/23 12/02/23 12/02/23 06:52 07:15 11:14 WBC RBC Hgb Hct MCV MCH MCHC RDW Plt Count MPV Absolute Nucleated RBC Nucleated RBC % (auto) Sodium 140 Potassium 4.1 Chloride 101 Carbon Dioxide 29 Anion Gap 14 BUN 19 H Creatinine 1.28 Estim Creat Clear Calc 41.1 Estimated GFR 41 POC Glucose 125 H 190 H Random Glucose 124 H Calcium 8.6 Total Bilirubin Direct Bilirubin AST ALT Alkaline Phosphatase Total Protein Albumin Lipase Procedures Date of Service Date of Service: 12/02/23 Progress Note: A&P Assessment and plan (1) Epigastric abdominal pain: Status: Acute Assessment and Plan: doing well we discussed using dicyclomine, but she had side effects ( angry ) when recently taken. ok to d/c on bid ppi, and my office will make a f/u appt. Time Spent With Patient Time: Total time managing care of this patient today ____ minutes. Quality Stroke Does the patient have a stroke diagnosis?: No VTE Prior VTE?: No VTE Risk Level:: Medical - moderate - high VTE Device Contraindication: Treatment Not Indicated VTE Drug Contraindication: Treatment Not Indicated
== END 2023-12-02 14:54 | disposition home health service (06) | DRG 392 ==
LOC: HO.ED 11-28 00:18 → HO.EDOVER 11-28 00:30 → HO.IMC 11-28 01:54
PROVIDERS: Internal Medicine; Internal Medicine Gastroenterology; Physician Assistant Medical; Admitting Provider Internal Medicine; Emergency Provider Emergency Medicine; PCP Internal Medicine; Visit Provider Internal Medicine
PROC: 0DJ08ZZ Inspection of Upper Intestinal Tract, Via Natural or Artificial Opening Endoscopic (ICD-10-PCS; CPT 43235; principal; 2023-11-30 14:10)
DX: K20.90 Esophagitis, unspecified without bleeding (principal); I13.0 Hypertensive heart and chronic kidney disease with heart failure and stage 1 through stage 4 chronic kidney disease, or unspecified chronic kidney disease; D68.32 Hemorrhagic disorder due to extrinsic circulating anticoagulants; I50.32 Chronic diastolic (congestive) heart failure; D50.9 Iron deficiency anemia, unspecified; I25.119 Atherosclerotic heart disease of native coronary artery with unspecified angina pectoris; N18.30 Chronic kidney disease, stage 3 unspecified; E11.22 Type 2 diabetes mellitus with diabetic chronic kidney disease; E78.5 Hyperlipidemia, unspecified; T45.515A Adverse effect of anticoagulants, initial encounter; E86.0 Dehydration; E11.65 Type 2 diabetes mellitus with hyperglycemia; G47.33 Obstructive sleep apnea (adult) (pediatric); I05.0 Rheumatic mitral stenosis; J44.9 Chronic obstructive pulmonary disease, unspecified; Z86.711 Personal history of pulmonary embolism; Z20.822 Contact with and (suspected) exposure to COVID-19; Z90.2 Acquired absence of lung [part of]; Z95.5 Presence of coronary angioplasty implant and graft; Z85.118 Personal history of other malignant neoplasm of bronchus and lung; Z99.81 Dependence on supplemental oxygen; Z87.891 Personal history of nicotine dependence; Z79.4 Long term (current) use of insulin; Z79.01 Long term (current) use of anticoagulants; Z79.02 Long term (current) use of antithrombotics/antiplatelets; Z79.899 Other long term (current) drug therapy
CPT/HCPCS: 0241U; 36415; 71046; 74176; 80048; 80053; 80076; 81001; 82436; 82570; 82607; 82728; 82746; 82947; 83540; 83690; 83735; 83880; 84133; 84300; 84484; 85014; 85018; 85025; 85027; 86850; 86900; 86901; 86923; 88305; 88313; 88342; 93005; 93306; 94640; 94660; 99285; C9113; J1170; J1200; J1940; J2270; J2405; J2704; J3010; P9016

== ENCOUNTER → 2023-11-27 16:30 | Outpatient (BNV) | payer MEDICARE, SELFPAY | PROVIDERS: Admitting Provider Internal Medicine; Emergency Provider Emergency Medicine; PCP Internal Medicine; Visit Provider Internal Medicine | DX: I45.19 Other right bundle-branch block (principal) | CPT/HCPCS: 93010 ==

== ENCOUNTER 2023-11-28 00:23 | Outpatient (BNV) | payer MEDICARE, SELFPAY | END 2023-11-29 07:00 | PROVIDERS: Admitting Provider Internal Medicine; Emergency Provider Emergency Medicine; PCP Internal Medicine; Visit Provider Internal Medicine Cardiovascular Disease | DX: I35.2 Nonrheumatic aortic (valve) stenosis with insufficiency (principal) | CPT/HCPCS: 93306 ==

== ENCOUNTER → 2023-11-28 00:23 | Outpatient (BNV) | payer MEDICARE, SELFPAY | PROVIDERS: Admitting Provider Internal Medicine; Emergency Provider Emergency Medicine; PCP Internal Medicine; Visit Provider Internal Medicine | DX: R07.9 Chest pain, unspecified (principal); D64.9 Anemia, unspecified | CPT/HCPCS: 99223; 99232; 99239; 99499 ==

== ENCOUNTER → 2023-11-28 00:23 | Outpatient (BNV) | payer MEDICARE, SELFPAY | PROVIDERS: Admitting Provider Internal Medicine; Emergency Provider Emergency Medicine; PCP Internal Medicine; Visit Provider Internal Medicine Hypertension Specialist | DX: N17.9 Acute kidney failure, unspecified (principal); E11.22 Type 2 diabetes mellitus with diabetic chronic kidney disease; N18.30 Chronic kidney disease, stage 3 unspecified | CPT/HCPCS: 99223 ==

== ENCOUNTER → 2023-11-28 00:23 | Outpatient (BNV) | payer MEDICARE, SELFPAY | PROVIDERS: Admitting Provider Internal Medicine; Emergency Provider Emergency Medicine; PCP Internal Medicine; Visit Provider Internal Medicine Cardiovascular Disease | DX: D64.9 Anemia, unspecified (principal); I10 Essential (primary) hypertension; R07.9 Chest pain, unspecified | CPT/HCPCS: 93010; 99223; 99232; 99233 ==

== ENCOUNTER 2023-12-13 13:40 | Outpatient (AMB) | payer MEDICARE, SELFPAY ==
--- NOTE | 2023-12-13 13:46 | MHC.PC.OV ---
Vital Signs 12/13/23 13:58 Height 5 ft 4 in Weight 200 lb BMI 34.3 BP 136/56 L Blood Pressure Location Lt brachial Position Sitting Pulse 85 Pulse Source Pulse Oximeter Pulse Oximetry (%) 95 Oxygen Delivery Method Room Air Intake Visit Reasons: Hospital follow up - see comments Intake Note: Pt is here today for a hospital follow up visit. Allergies Latex, Natural Rubber Allergy (Severe, Verified 12/13/23 14:01) blisters Sulfa (Sulfonamide Antibiotics) [SULFA (SULFONAMIDE ANTIBIOTICS)] Allergy (Mild, Verified 12/13/23 14:01) ITCHING, rash nystatin Allergy (Unknown, Verified 12/13/23 14:01) rash isosorbide [From Imdur] Adverse Reaction (Unknown, Verified 12/13/23 14:01) HEADACHES, headache tizanidine Adverse Reaction (Unknown, Verified 12/13/23 14:01) weakness, Hellucination Medication List - Last Reconciled 12/13/23 by Amanda Leiva MD acetaminophen 650 mg (2 x 325 mg) PO Q6H PRN albuterol sulfate 90 mcg/actuation (ProAir HFA) 2 puffs inhalation Q4H PRN apixaban (Eliquis) 5 mg PO BID atorvastatin 80 mg PO BEDTIME blood sugar diagnostic (FreeStyle Lite Strips) test blood sugar once a day budesonide-formoterol 160-4.5 mcg/actuation (Symbicort) 1 puff inhalation BID buspirone 5 mg PO BID cholecalciferol (vitamin D3) 25 mcg PO DAILY citalopram 20 mg PO DAILY clopidogrel 75 mg PO DAILY diltiazem HCl ER (Matzim [place]) 300 mg PO DAILY docusate sodium 100 mg PO BID PRN dulaglutide (Trulicity) 3 mg (0.5 mL) subcut QWEEK empagliflozin (Jardiance) 25 mg PO DAILY flash glucose sensor (FreeStyle Kelly 2 Sensor kit) As directed every 2 weeks furosemide 20 mg PO DAILY insulin glargine (Lantus Solostar U-100 Insulin) 25 units (0.25 mL) subcut BEDTIME insulin lispro (Humalog KwikPen (U-100) Insulin) 1 sliding scale dose subcut USEASDIRECTD insulin lispro (Humalog KwikPen (U-100) Insulin) 1 sliding scale dose subcut USEASDIRECTD ipratropium-albuterol 0.5 mg-3 mg(2.5 mg base)/3 mL 3 mL inhalation BID PRN lidocaine 4% (Lidocaine Pain Relief) 1 patch See Protocol transdermal DAILY PRN lisinopril 10 mg PO DAILY loratadine 10 mg PO DAILY PRN metoprolol tartrate 50 mg PO BID montelukast 10 mg PO BEDTIME pantoprazole 40 mg PO BID polyethylene glycol 3350 17 grams PO DAILY PRN walker As directed Tobacco use date assessed: 12/13/23 Dental Screening Dental Screen Date: 09/27/23 [facility] Hospital follow up - see comments HPI Details Patient presents for the follow-up of hospitalization for epigastric abdominal pain dehydration worsening chronic renal insufficiency. Endoscopy showed esophagitis and patient received of 1 unit PRBC. patient reports persist chest pain worse with physical activity, lightheadedness when standing and poor balance. Patient reports occasionally low glucose readings after lunch. She has been taking Humalog insulin according to sliding scale but does not remember the scale. Patient reports chronic depression and grieving her who 2 years ago. She has been taking citalopram and buspirone. Patient denies suicidal ideations. [facility] Medical History CKD stage 3 due to type 2 diabetes mellitus Diabetes type 2, uncontrolled Anemia Tracheomalacia, acquired History of pulmonary embolism AG (acute kidney injury) CAD (coronary artery disease) Non-ST elevation ID (NSTEMI) Paroxysmal atrial fibrillation Pulmonary embolism Obesity Dyslipidemia Hypertension [facility] (current) use of insulin Respiratory failure Obstructive sleep apnea COPD (chronic obstructive pulmonary disease) Surgical History History of carpal tunnel surgery History of cholecystectomy History of lobectomy of lung Status post tracheoplasty History of cardiac cath Family History Mother No problems noted. Father No problems noted. Brother Substance use disorder Brother Substance use disorder Social History Household Members: Children Household Members Other:: 2 Housing: House Do you presently have visiting nurse or other home services: Yes ([facility] every 2 wks.) Alcohol intake: former Patient Tobacco Use Status: Former Tobacco user Quit Date: 1993 Tobacco use type: Cigarette Cigarettes Per Day: 10 Years Smoked: 3 e-Cigarette/Vaping Use: Never Used Second Hand Smoke Exposure: No Advance Directives Date on File: 06/29/23 service: No Current occupational status: retired Cognitive needs: No Hearing needs: No Vision needs: No Questionnaire PHQ-9 Over the last 2 weeks, how often have you been bothered by any of the following problems? 08611 - PHQ-9 Billing: Patient declined-do not bill Source: Developed by Drs. Jeronimo Wallis, Saige Barrios, Nj Will and colleagues, with an educational katharine from [employer]. Thrive Questionnaire Date Thrive assessed: 11/28/23 DOMINIQUE-7 AMB Questionnaire DOMINIQUE-7 Date DOMINIQUE - 7 assessed: 12/13/23 Source: Developed by Drs. Jeronimo Wallis, Saige Barrios, Nj Will and colleagues, with an educational katharine from [employer]. DOMINIQUE-7 Assessment Billing DOMINIQUE-7 Assessment Tool: pt declined-do not bill Review of Systems Const All systems reviewed & are unremarkable except as noted in HPI and below ENT Reports no additional complaints Card Reports no additional complaints Resp Reports no additional complaints GI Reports no additional complaints Reports no additional complaints Physical exam (Primary Care) Vital Signs: Last Vital Signs Pulse 85 12/13/23 13:58 BP 136/56 L 12/13/23 13:58 Pulse Ox 95 12/13/23 13:58 Oxygen Delivery Method Room Air 12/13/23 13:58 BMI result Body Mass Index 34.3 Tobacco/Smoking Status: Tobacco use Status Tobacco use date assessed 12/13/23 12/13/23 14:03 Patient Tobacco Use Status Former Tobacco user 12/13/23 13:46 Tobacco use type Cigarette 12/13/23 13:46 e-Cigarette/Vaping Use Never Used 12/13/23 13:46 Thrive Assessment: Date of Thrive Assessment Date Thrive assessed 11/28/23 12/13/23 13:46 Const General: no acute distress HENMT Head: Yes normal to inspection Throat: Yes posterior oropharynx normal Neck Neck: Yes no lymphadenopathy and Yes supple Resp Effort & Inspection: normal respiratory effort Auscultation: clear to auscultation bilaterally Cardio Rhythm: regular rhythm Heart sounds: S1 normal heart sound present and S2 normal heart sound present GI Inspection: Yes normal to inspection Neuro Cranial nerves: Yes CN's II-XII intact bilaterally Gait exam (Neuro): Staggering gait present Motor exam (neuro): 5/5 motor strength present throughout Coordination: [id number] test normal Romberg Test: Negative Assessment and Plan Assessment & Plan (1) Angina at rest: Code(s): I20.89 - Other forms of angina pectoris Plan: Referred for stress test (2) Balance disorder: Code(s): R26.89 - Other abnormalities of gait and mobility Plan: Referred to physical therapy (3) CKD stage 3 due to type 2 diabetes mellitus: Code(s): E11.22 - Type 2 diabetes mellitus with diabetic chronic kidney disease; N18.30 - Chronic kidney disease, stage 3 unspecified Plan: Check blood work today avoid nephrotoxins (4) Diabetes type 2, uncontrolled: Code(s): E11.65 - Type 2 diabetes mellitus with hyperglycemia Qualifiers: Glycemic state: with hyperglycemia Qualified Code(s): E11.65 - Type 2 diabetes mellitus with hyperglycemia Plan: Continue Lantus and patient will call with dosage Humalog for sliding scale, ADA diet increase physical activity discussed with the patient (5) Anxiety and depression: Code(s): F41.9 - Anxiety disorder, unspecified; F32.A - Depression, unspecified Plan: Continue current medications and referred to counseling follow-up in 1 month (6) Hearing loss: Code(s): H91.90 - Unspecified hearing loss, unspecified ear Orders: Orders NM cardiolite stress test Today E11.22 - Type 2 diabetes mellitus with diabetic chronic kidney disease, E11.65 - Type 2 diabetes mellitus with hyperglycemia, I20.89 - Other forms of angina pectoris, N18.30 - Chronic kidney disease, stage 3 unspecified Complete Blood Count Auto Diff Today E11.22 - Type 2 diabetes mellitus with diabetic chronic kidney disease, E11.65 - Type 2 diabetes mellitus with hyperglycemia, N18.30 - Chronic kidney disease, stage 3 unspecified Comprehensive Met. Panel Today E11.22 - Type 2 diabetes mellitus with diabetic chronic kidney disease, E11.65 - Type 2 diabetes mellitus with hyperglycemia, N18.30 - Chronic kidney disease, stage 3 unspecified Vitamin B12 and Folate Today E11.22 - Type 2 diabetes mellitus with diabetic chronic kidney disease, E11.65 - Type 2 diabetes mellitus with hyperglycemia, N18.30 - Chronic kidney disease, stage 3 unspecified CA stress test Today E11.22 - Type 2 diabetes mellitus with diabetic chronic kidney disease, E11.65 - Type 2 diabetes mellitus with hyperglycemia, I20.89 - Other forms of angina pectoris, N18.30 - Chronic kidney disease, stage 3 unspecified PT Evaluation and Treatment Today E11.22 - Type 2 diabetes mellitus with diabetic chronic kidney disease, E11.65 - Type 2 diabetes mellitus with hyperglycemia, N18.30 - Chronic kidney disease, stage 3 unspecified, R26.89 - Other abnormalities of gait and mobility IRON PROFILE Today E11.22 - Type 2 diabetes mellitus with diabetic chronic kidney disease, E11.65 - Type 2 diabetes mellitus with hyperglycemia, N18.30 - Chronic kidney disease, stage 3 unspecified Referrals Speech and Hearing Referral H91.90 - Unspecified hearing loss, unspecified ear Counseling Referral F32.A - Depression, unspecified, F41.9 - Anxiety disorder, unspecified Medications: New famotidine (Pepcid) 40 mg PO BEDTIME 30 tabs 2RF Coding Level of Care Code Est Pt Level 4 (68576) Diagnoses Angina at rest I20.89 Balance disorder R26.89 CKD stage 3 due to type 2 diabetes mellitus E11.22; N18.30 Uncontrolled type 2 diabetes mellitus with hyperglycemia E11.65 Glycemic state: with hyperglycemia Anxiety and depression F41.9; F32.A Hearing loss H91.90
[2023-12-13 13:58] VITALS: BP 136/56; PULSE 85; O2SAT 95; BMI 34.3
== END 2023-12-13 14:56 | disposition home or self-care (01) ==
PROVIDERS: PCP Internal Medicine; Visit Provider Internal Medicine
DX: E11.22 Type 2 diabetes mellitus with diabetic chronic kidney disease (principal); N18.30 Chronic kidney disease, stage 3 unspecified; E11.65 Type 2 diabetes mellitus with hyperglycemia; I20.89 Other forms of angina pectoris; R26.89 Other abnormalities of gait and mobility; F41.9 Anxiety disorder, unspecified; F32.A Depression, unspecified; H91.93 Unspecified hearing loss, bilateral
CPT/HCPCS: 99214

== ENCOUNTER 2023-12-13 15:01 | Outpatient (REF) | payer MEDICARE, SELFPAY ==
[2023-12-13 16:12] LABS: MANUAL DIFF FLAG NO
[2023-12-13 16:22] LABS: Basophils Absolute Auto 0.1 X10*3/uL (0.0-0.2); Basophils Percent Auto 0.6 % (0-2); Eosinophils Absolute Auto 0.4 X10*3/uL (0.0-0.4); Eosinophils Percent Auto 4.6 % (0-4); Hemoglobin 10.4 g/dl (12.0-16.0); Imm Gran Abs Auto 0.05 X10*3/uL (0.00-0.03); Imm Gran Pct Auto 0.6 % (0.0-0.4); Lymphocytes Percent Auto 22.3 % (20-40); Mean Corpuscular HGB Conc 29.7 g/dl (31.0-35.0); Mean Corpuscular Hemoglobin 22.8 pg (27.0-33.0); Mean Corpuscular Volume 76.6 fL (80.0-98.0); Mean Platelet Volume 10.1 fL (9.4-12.3); Monocytes Absolute Auto 0.6 X10*3/uL (0.1-1.2); Monocytes Percent Auto 6.9 % (2-11); Neutrophils Absolute Auto 5.8 x10*3/uL (2.0-8.3); Platelet Count 372 X10*3/uL (160-400); Red Blood Count 4.57 X10*6/uL (4.20-5.50); Red Cell Distribution Width 18.2 % (11.0-16.0)
[2023-12-13 16:49] LABS: Alanine Aminotransferase 11 U/L (0-31); Alkaline Phosphatase 127 U/L (39-117); Anion Gap 14 (12-20); Aspartate Amino Transferase 12 U/L (5-31); Bilirubin Total 0.4 mg/dL (0.0-1.0); Blood Urea Nitrogen 23 mg/dL (9-16); Carbon Dioxide 23 mmol/L (22-29); Chloride 106 mmol/L (96-108); Estimated Glomerular Filt Rate 42; Glucose Random 160 mg/dL (60-115); Iron 30 mcg/dL (30-160); Percent Iron Saturation 10 % (15-50); Potassium 4.1 mmol/L (3.3-5.1); Sodium 139 mmol/L (135-145); Total Iron Binding Capacity 312 mcg/dL (228-428); Total Protein 7.3 g/dL (6.5-8.0); Unsaturated Iron Binding 282 ug/dL
[2023-12-13 17:23] LABS: Folate 7.8 ng/mL (> or = 4.0); Vitamin B12 577 pg/mL (200-900)
== END 2023-12-13 15:02 | disposition home or self-care (01) ==
LOC: HO.HMGCLDS 15:01
PROVIDERS: PCP Internal Medicine; Visit Provider Internal Medicine
DX: E11.65 Type 2 diabetes mellitus with hyperglycemia (principal); E11.22 Type 2 diabetes mellitus with diabetic chronic kidney disease; N18.30 Chronic kidney disease, stage 3 unspecified
CPT/HCPCS: 36415; 80053; 82607; 82746; 83540; 85025

== ENCOUNTER 2023-12-15 11:49 | Emergency (ER) | payer MEDICARE, SELFPAY ==
[2023-12-15] VITALS (9 sets, daily range): BP systolic 101–148; BP diastolic 31–76; PULSE 68–76; RESP 16–20; TEMP 36.7–36.8; O2SAT 93–98; BMI 34.5
--- NOTE | 2023-12-15 | ECG_ITS ---
Test Reason : CHEST PAIN Blood Pressure : / mmHG Vent. Rate : 070 BPM Atrial Rate : 070 BPM P-R Int : 198 ms QRS Dur : 084 ms QT Int : 412 ms P-R-T Axes : 040 031 061 degrees QTc Int : 444 ms Sinus rhythm with Premature atrial complexes Nonspecific T wave abnormality Abnormal ECG When compared with ECG of 28-NOV-2023 20:49, Premature atrial complexes are now Present Referred By: Generic ED Physician Electronically Signed By:Brad French
--- NOTE | ~2023-12-15 | US_ITS ---
EXAMINATION: US ABDOMEN COMPLETE CLINICAL INFORMATION: Upper abdominal pain. COMPARISON: CT from 12/01/2023 TECHNIQUE: Real-time imaging of the abdominal viscera. FINDINGS: PANCREAS: Not well visualized due to overlying bowel gas shadowing. ABDOMINAL AORTA: The proximal, mid, and distal segments are normal in caliber. INFERIOR VENA CAVA: Visualized portions are normal. LIVER: Normal. The liver is normal in size. The liver contour is normal. Parenchymal echogenicity is normal. No focal hepatic lesion. There is no intrahepatic biliary duct dilatation seen. GALLBLADDER: Normal. The gallbladder is physiologically distended without evidence of stones, sludge, polyps, wall thickening or pericholecystic fluid. COMMON BILE DUCT: Dilated measuring 1.1 cm which is grossly unchanged compared to the prior CT scan.. RIGHT KIDNEY: Atrophy with increased parenchymal echotexture. No hydronephrosis. No renal calculi or focal parenchymal lesions. The kidney measures 7.1 cm in maximum dimension. Questionable area of nodularity measured on the examination likely represents area of cortical lobulation as seen on the prior CT scans LEFT KIDNEY: Normal. No hydronephrosis. No renal calculi or focal parenchymal lesions. The kidney measures 10.9 cm in maximum dimension. SPLEEN: Normal. The spleen measures 12.1 cm in maximum dimension. FREE FLUID: None. US/US abdomen complete IMPRESSION: 1. No acute process. 2. Stable dilatation of the common bile duct. 3. Atrophic right kidney.
--- NOTE | ~2023-12-15 | XR_ITS ---
EXAMINATION: XR CHEST CLINICAL INFORMATION: Shortness of breath. COMPARISON: 11/27/2023 TECHNIQUE: 2 views of the chest were obtained. FINDINGS: The lungs are well expanded. No focal consolidation. No pleural effusion. Cardiac silhouette is unchanged. XR/XR chest 2V IMPRESSION: No acute abnormality.
--- NOTE | 2023-12-15 12:46 | PC.NURSE ---
Pt presents to ED from home via EMS. Pt reports increase in SOB since middle of night last night, while laying down. Pt also reports 6 pound weight gain today and dizziness this morning while walking. Pt has hx of CHF, has been taking meds as prescribed. Visiting nurse called for EMS due to pt having wheezing and increased SOB. EMS placed 20G in left AC, no other interventions. Pt is alert and oriented, breathing even and unlabored while at rest, pt noted to have some difficulty speaking for long periods. Skin pale and dry. Pt reports sharp chest pains starting when she got to ER, substernal area, 01/13, no radiation. ECG ordered and pt placed on bedside compliance monitor, NSR. VSS.
--- NOTE | 2023-12-15 12:54 | ED_ITS ---
HPI - SOB/Dyspnea General Chief Complaint: Dyspnea Stated Complaint: DIZZY,6LB WT GAIN PER [facility], PER EMS Time Seen by Provider: 12/15/23 12:51 Source: patient and RN notes reviewed Mode of arrival: ambulatory Limitations: no limitations History of Present Illness HPI Narrative: This is a 73-year-old female, with a history of 2 MIs with stenting on Eliquis, hyperlipidemia, diabetes, CKD stage 3, paroxysmal atrial fibrillation, hypertension, CHF, and COPD who presents emergency department with complaints of dizziness, chest pain, and shortness of breath since last night. Patient states that she initially noticed this while she was lying down overnight. She states that she continues to have shortness of breath, worsening with exertion. Reporting a 6 lb weight gain today. She does have a history of CHF and has been compliant with her medications. She is also endorsing dizziness which started this morning. Upon her drive to the emergency room, she developed sharp substernal chest pain. She states that she also has had a recent weight gain of 6lbs in the course of the last few days. Denies any fevers, chills, abdominal pain, nausea, vomiting or diarrhea. No other complaints or concerns at this time. MD elicited complaint: shortness of breath Pertinent past history: COPD Timing: constant Severity: moderate Exacerbating factors: nothing Relieving factors: nothing Known history of: COPD, congestive heart failure and diabetes Associated symptoms: denies other symptoms Related Data Home Medications ?Medication ?Instructions ?Recorded ?Confirmed albuterol sulfate 90 mcg/actuation 2 puff inhalation Q4H PRN 06/25/23 12/13/23 aerosol inhaler (ProAir HFA) Shortness Of Breath cholecalciferol (vitamin D3) 25 25 mcg PO DAILY 08/11/23 12/13/23 mcg (1,000 unit) tablet ipratropium 0.5 mg-albuterol 3 mg 3 ml inhalation BID PRN sob 08/11/23 12/13/23 (2.5 mg base)/3 mL nebulization soln loratadine 10 mg tablet 10 mg PO DAILY PRN Allergy Symptoms 08/11/23 12/13/23 atorvastatin 80 mg tablet 80 mg PO BEDTIME 11/28/23 12/13/23 budesonide-formoterol HFA 160 1 puff inhalation BID 11/28/23 12/13/23 mcg-4.5 mcg/actuation aerosol inhaler (Symbicort) buspirone 5 mg tablet 5 mg PO BID 11/28/23 12/13/23 furosemide 20 mg tablet 20 mg PO DAILY 11/28/23 12/13/23 lidocaine 4 % topical patch 1 patch transdermal DAILY PRN Pain 11/28/23 12/13/23 (Lidocaine Pain Relief) lisinopril 10 mg tablet 10 mg PO DAILY 11/28/23 12/13/23 metoprolol tartrate 50 mg tablet 50 mg PO BID 11/28/23 12/13/23 montelukast 10 mg tablet 10 mg PO BEDTIME 11/28/23 12/13/23 pantoprazole 40 mg tablet,delayed 40 mg PO BID 11/28/23 12/13/23 release polyethylene glycol 3350 17 gram 17 g PO DAILY PRN Constipation 11/28/23 12/13/23 oral powder packet insulin lispro 100 unit/mL 1 sliding scale dose subcut 12/02/23 12/13/23 subcutaneous pen (Humalog KwikPen USEASDIRECTD (U-100) Insulin) Previous Rx's ?Medication ?Instructions ?Recorded walker #1 ea 02/28/23 blood sugar diagnostic (FreeStyle #100 ea 03/26/23 Lite Strips) flash glucose sensor (FreeStyle #6 ea 05/14/23 Kelly 2 Sensor kit) acetaminophen 325 mg tablet 650 mg (2 x 325 mg) PO Q6H PRN 08/22/23 pain #30 tabs docusate sodium 100 mg capsule 100 mg PO BID PRN Constipation #30 08/22/23 caps citalopram 20 mg tablet 20 mg PO DAILY #90 tabs 08/27/23 clopidogrel 75 mg tablet 75 mg PO DAILY #90 tabs 08/27/23 diltiazem HCl 300 mg 300 mg PO DAILY #90 tabs 08/27/23 tablet,extended release 24 hr (Matzim LA) empagliflozin 25 mg tablet 25 mg PO DAILY #90 tabs 09/21/23 (Jardiance) apixaban 5 mg tablet (Eliquis) 5 mg PO BID #180 tabs 09/27/23 dulaglutide 3 mg/0.5 mL 3 mg (0.5 mL) subcut QWEEK #6 mL 09/27/23 subcutaneous pen injector (Trulicity) insulin glargine 100 unit/mL (3 25 unit (0.25 mL) subcut BEDTIME 12/02/23 mL) subcutaneous pen (Lantus #15 mL Solostar U-100 Insulin) insulin lispro 100 unit/mL 1 sliding scale dose subcut 12/02/23 subcutaneous pen (Humalog KwikPen USEASDIRECTD #15 mL (U-100) Insulin) famotidine 40 mg tablet (Pepcid) 40 mg PO BEDTIME #30 tabs 12/13/23 Allergies Allergy/AdvReac Type Severity Reaction Status Date / Time Latex, Natural Rubber Allergy Severe blisters Verified 12/15/23 12:38 Sulfa (Sulfonamide Allergy Mild ITCHING, Verified 12/13/23 14:01 Antibiotics) rash [SULFA (SULFONAMIDE ANTIBIOTICS)] nystatin Allergy Unknown rash Verified 12/13/23 14:01 isosorbide [From Imdur] AdvReac Unknown HEADACHES, Verified 12/13/23 14:01 headache tizanidine AdvReac Unknown weakness, Verified 12/13/23 14:01 Hellucination Review of Systems 2 Review of Systems: Yes all other systems are reviewed and are negative Constitutional: Constitutional: Reports as per [facility] Past Medical History Medical History (Updated 12/15/23 @ 23:14 by Eda Hi CNP) Anemia CKD stage 3 due to type 2 diabetes mellitus Diabetes type 2, uncontrolled Tracheomalacia, acquired History of pulmonary embolism AG (acute kidney injury) CAD (coronary artery disease) Non-ST elevation HI (NSTEMI) Paroxysmal atrial fibrillation Pulmonary embolism Obesity Dyslipidemia 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 Father No problems noted. Brother Substance use disorder Brother Substance use disorder Social History Social History Household Members: Children Household Members Other:: 2 Housing: House Do you presently have visiting nurse or other home services: Yes ([facility] every 2 wks.) Alcohol intake: former Patient Tobacco Use Status: Former Tobacco user Quit Date: 1993 Tobacco use type: Cigarette Cigarettes Per Day: 10 Years Smoked: 3 e-Cigarette/Vaping Use: Never Used Second Hand Smoke Exposure: No Advance Directives Date on File: 06/29/23 service: No Current occupational status: retired Cognitive needs: No Hearing needs: No Vision needs: No Physical Exam 2 Vital Signs: Vital Signs: Last Vital Signs Temp 98.0 F 12/16/23 00:54 Pulse 94 12/16/23 00:54 Resp 17 12/16/23 00:54 BP 126/41 L 12/16/23 00:54 Pulse Ox 98 12/16/23 00:54 O2 Del Method Room Air 12/16/23 00:54 BMI result Body Mass Index 34.5 Const: General: cooperative, comfortable and no acute distress O rientation/consciousness: patient oriented x3 Limitations: no limitations HEENT: Head: Yes normal to inspection, Yes normocephalic and Yes atraumatic Ears: hearing grossly normal bilaterally General nose exam: Normal external nose present Face and sinus: Yes normal facial exam Mouth: Normal oral and palatal mucosa present, oropharynx normal and moist mucous membranes Throat: Yes posterior oropharynx normal Eyes: General: appearance normal, both eyes and all related structures E yelids: Yes eyelids normal Conjunctivae: conjunctivae normal Sclerae: s clerae normal Pupils: Equal, round and reactive pupils present EOM: EOMs intact bilaterally Neck: Neck: Yes normal visual inspection, Yes full ROM and Yes no lymphadenopathy Lymphatic: no lymphadenopathy noted Chest: Chest palpation & inspection: normal inspection of the chest Resp: Effort & Inspection: normal respiratory effort and able to speak in complete sentences Auscultation: clear to auscultation bilaterally, no crackles, no rales, no rhonchi and no wheezes Cardio: Rate: regular rate Rhythm: regular rhythm Heart sounds: S1 normal heart sound present and S2 normal heart sound present GI: Other: Abdomen is soft, nontender, nondistended Inspection: Yes normal to inspection Skin: General skin exam: no rashes or lesions noted Trauma: no lacerations or abrasions Wounds: no wounds Neuro: General: patient oriented x3 and moves all extremities Cranial nerves: Yes Equal, round and reactive pupils present Extrem: General: Yes normal to inspection Right upper extremity: normal to inspection Left upper extremity: normal to inspection Right lower extremity: normal to inspection Left lower extremity: normal to inspection Course Reevaluation(s) Reevaluation #1: Labs returned, revealing no leukocytosis, microcytic anemia noted with a hemoglobin and hematocrit 10/33% chemistry within normal limits, no evidence of AG. BNP slightly elevated at 108 which appears to be around her baseline. Alk-phos elevated at 118, which is around her baseline. Lipase is elevated at 146. She has a hx of pancreatitis. Time: 17:14 Reevaluation #2: Patient re-evaluated, she is stating that she is having chest pain, describing it as a heaviness sensation radiating into her right side of her neck. Given this change, will order stat EKG, repeat troponin. Pt medicated with morphine. She has no abdominal pain, however given elevated lipase, ultrasound the abdomen was ordered. Sign-out given to my colleague, Luis Hi DNP pending repeat troponin EKG abdominal evaluation. Patient may need to be admitted for possible pancreatitis. Time: 17:23 Reevaluation #3: Delta troponin was flat, no acute EKG abnormalities. Do not suspect ACS at this time. US/US abdomen complete IMPRESSION: 1. No acute process. 2. Stable dilatation of the common bile duct. 3. Atrophic right kidney. Unfortunately pancreas was not able to be visualized due to overlying bowel gas. Clinically I have a low suspicion for acute pancreatitis, lipase is less than 3 times greater than high range of normal, she had 2 CT scans of the abdomen and pelvis on November 20222023, and November 20262023 both of which were unremarkable for acute pathology. On review of her most recent hospital admission during this time in November she had abdominal pain of similar etiology, she was evaluated by GI and had an EGD on 11/30/2023 found to have esophagitis and biopsies were taken (mild reactive gastropathy with negative H pylori/intestinal metaplasia and dysplasia, she was to be discharged on 11/30/2023 when she developed severe sudden abdominal pain, thus the repeat CT scan was obtained with no acute pathology. I re-evaluated the patient once ultrasound results have been obtained, she states that she now is having severe epigastric pain that she feels was brought on by the ultrasound imaging. Prior to this she was endorsing no abdominal pain, was primarily having chest pain. I feel that pain at this time is most consistent with chronic pathology, do not feel that repeat CT imaging at this time is warranted. We will trial additional dose of morphine at this time as the previously administered dose did alleviate the pain she was experiencing, in addition will provide PPI, GI cocktail. Time: 21:28 Additional Reevaluation(s): Tolerating oral intake, at this time I feel that she is stable for discharge home and outpatient follow-up with her providers regarding her chronic chest pain and abdominal pain as previously mentioned. Medications Administered Discontinued Medications Generic Name Dose Route Start Last Admin Trade Name Freq PRN Reason Stop Dose Admin Acetaminophen 650 mg 12/15/23 14:34 12/15/23 14:49 Acetaminophen 325 Mg Tablet PO 12/15/23 14:35 650 mg ONCE ONE Administration Al Hydroxide/Mg Hydroxide 30 ml 12/15/23 21:35 12/15/23 21:44 Magnesium Hydrox/Alum Hydrox 30 Ml Oral.Susp PO 12/15/23 21:36 30 ml ONCE ONE Administration Famotidine 20 mg 12/15/23 21:35 12/15/23 21:44 Famotidine/Pf 20 Mg/2 Ml Vial IVPUSH 12/15/23 21:36 20 mg ONCE ONE Administration Sodium Chloride 1,000 mls @ 500 mls/hr 12/15/23 18:10 12/15/23 18:23 Ns IV 12/15/23 20:09 500 mls/hr .Q2H ONE Administration Lidocaine HCl 15 ml 12/15/23 21:35 12/15/23 21:44 Lidocaine Hcl Viscous 2 % 15 Ml Solution MUCOUS MEM 12/15/23 21:36 15 ml ONCE ONE Administration Morphine Sulfate 4 mg 12/15/23 18:04 12/15/23 18:22 Morphine Sulfate 4 Mg/Ml Cartridge IVPUSH 12/15/23 18:05 4 mg ONCE ONE Administration Protocol Morphine Sulfate 4 mg 12/15/23 21:35 12/15/23 21:44 Morphine Sulfate 4 Mg/Ml Cartridge IVPUSH 12/15/23 21:36 4 mg ONCE ONE Administration Protocol Medical Decision Making Medical Decision Making MDM Narrative: This is a 73-year-old female, with a history of 2 MIs with stenting on Eliquis, hyperlipidemia, diabetes, CKD stage 3, paroxysmal atrial fibrillation, hypertension, CHF, and COPD who presents emergency department with complaints of dizziness and shortness of breath since last night. She reported and route she developed chest pain. Upon arrival, patient reporting no current chest pain, vital signs within normal limits. Lungs clear to auscultation bilaterally, no pitting edema noted bilaterally. Patient does not appear to be fluid overloaded. Differential diagnoses include ACS, viral syndrome, electrolyte derangement, orthostatic hypotension. Plan: Labs, EKG, chest x-ray Differential Diagnosis Differential Diagnoses: The differential diagnosis associated with the presentation includes See above Lab Data MDM Lab Attestation statement: I reviewed the patient's lab results. No leukocytosis, microcytic anemia noted with a hemoglobin and hematocrit 10/33%, elevated lipase at 146, BNP 108, alk phos 118. 12/15/23 13:24 12/15/23 13:24 Labs: Lab Results 12/15/23 12/15/23 12/15/23 Range/Units 13:24 14:19 18:05 WBC 9.8 (4.8-10.8) X10*3/uL RBC 4.32 (4.20-5.50) X10*6/uL Hgb 10.0 L (12.0-16.0) g/dl Hct 33.0 L (37.0-47.0) % MCV 76.4 L (80.0-98.0) fL MCH 23.1 L (27.0-33.0) pg MCHC 30.3 L (31.0-35.0) g/dl RDW 18.1 H (11.0-16.0) % Plt Count 354 (160-400) X10*3/uL MPV 9.5 (9.4-12.3) fL Immature Gran % (Auto) 0.5 H (0.0-0.4) % Neut % (Auto) 62.7 (45-73) % Lymph % (Auto) 23.2 (20-40) % [place] % (Auto) 7.2 (2-11) % Eos % (Auto) 5.8 H (0-4) % Baso % (Auto) 0.6 (0-2) % Lymph # (Auto) 2.3 (1.2-4.9) X10*3/uL [place] # (Auto) 0.7 (0.1-1.2) X10*3/uL Eos # (Auto) 0.6 H (0.0-0.4) X10*3/uL Baso # (Auto) 0.1 (0.0-0.2) X10*3/uL Abs Immat Gran (auto) 0.05 H (0.00-0.03) X10*3/uL Absolute Neuts (auto) 6.1 (2.0-8.3) x10*3/uL Absolute Nucleated RBC 0.000 (0.0-0.012) X10*3/uL Nucleated RBC % (auto) 0.0 (0.0-0.2) /100WBC Sodium 140 (135-145) mmol/L Potassium 4.1 (3.3-5.1) mmol/L Chloride 105 (96-108) mmol/L Carbon Dioxide 27 (22-29) mmol/L Anion Gap 12 (12-20) BUN 26 H (9-16) mg/dL Creatinine 1.12 (0.5-1.4) mg/dL Estim Creat Clear Calc 47.4 Estimated GFR 47 POC Glucose (60-115) mg/dL Random Glucose 89 (60-115) mg/dL Calcium 8.8 (8.4-10.2) mg/dL Magnesium 2.1 (1.6-2.6) mg/dL Total Bilirubin 0.4 (0.0-1.0) mg/dL Direct Bilirubin 0.2 (0.0-0.5) mg/dL AST 14 (5-31) U/L ALT 12 (0-31) U/L Alkaline Phosphatase 118 H (39-117) U/L Troponin I High Sens 5.8 6.0 (<3.5-17.0) ng/L B-Natriuretic Peptide 108 H (<100) pg/mL Total Protein 6.9 (6.5-8.0) g/dL Albumin 3.9 (3.5-5.0) g/dL Lipase 146 H (8-78) U/L Urine Color Yellow Urine Appearance Clear Urine pH 5.0 (5.0-9.0) Ur Specific [place] 1.010 (1.005-1.025) Urine Protein Negative (Neg-Trace) mg/dL Urine Glucose (UA) 500 H (Negative) mg/dL Urine Ketones Negative (Negative) mg/dL Urine Blood Small (1+) H (Negative) Urine Nitrite Negative (Negative) Ur Leukocyte Esterase Small (1+) H (Negative) Urine RBC 0-2 (0-2) /HPF Urine WBC 0-5 (0-5) /HPF Ur Squamous Epith Cells 3-5 (0-2) /HPF Urine Bacteria None Seen (None Seen) Hyaline Casts 0-2 (0-2) /LPF Influenza Type A (PCR) NEGATIVE (Negative) Influenza Type B (PCR) NEGATIVE (Negative) RSV RNA Qual (PCR) NEGATIVE (Negative) SARS-CoV-2 RNA (RT-PCR) NEGATIVE (Negative) 12/15/23 12/15/23 Range/Units 18:05 20:26 WBC (4.8-10.8) X10*3/uL RBC (4.20-5.50) X10*6/uL Hgb (12.0-16.0) g/dl Hct (37.0-47.0) % MCV (80.0-98.0) fL MCH (27.0-33.0) pg MCHC (31.0-35.0) g/dl RDW (11.0-16.0) % Plt Count (160-400) X10*3/uL MPV (9.4-12.3) fL Immature Gran % (Auto) (0.0-0.4) % Neut % (Auto) (45-73) % Lymph % (Auto) (20-40) % [place] % (Auto) (2-11) % Eos % (Auto) (0-4) % Baso % (Auto) (0-2) % Lymph # (Auto) (1.2-4.9) X10*3/uL [place] # (Auto) (0.1-1.2) X10*3/uL Eos # (Auto) (0.0-0.4) X10*3/uL Baso # (Auto) (0.0-0.2) X10*3/uL Abs Immat Gran (auto) (0.00-0.03) X10*3/uL Absolute Neuts (auto) (2.0-8.3) x10*3/uL Absolute Nucleated RBC (0.0-0.012) X10*3/uL Nucleated RBC % (auto) (0.0-0.2) /100WBC Sodium (135-145) mmol/L Potassium (3.3-5.1) mmol/L Chloride (96-108) mmol/L Carbon Dioxide (22-29) mmol/L Anion Gap (12-20) BUN (9-16) mg/dL Creatinine (0.5-1.4) mg/dL Estim Creat Clear Calc Estimated GFR POC Glucose 93 (60-115) mg/dL Random Glucose (60-115) mg/dL Calcium (8.4-10.2) mg/dL Magnesium (1.6-2.6) mg/dL Total Bilirubin (0.0-1.0) mg/dL Direct Bilirubin (0.0-0.5) mg/dL AST (5-31) U/L ALT (0-31) U/L Alkaline Phosphatase (39-117) U/L Troponin I High Sens 6.0 (<3.5-17.0) ng/L B-Natriuretic Peptide (<100) pg/mL Total Protein (6.5-8.0) g/dL Albumin (3.5-5.0) g/dL Lipase (8-78) U/L Urine Color Urine Appearance Urine pH (5.0-9.0) Ur Specific [place] (1.005-1.025) Urine Protein (Neg-Trace) mg/dL Urine Glucose (UA) (Negative) mg/dL Urine Ketones (Negative) mg/dL Urine Blood (Negative) Urine Nitrite (Negative) Ur Leukocyte Esterase (Negative) Urine RBC (0-2) /HPF Urine WBC (0-5) /HPF Ur Squamous Epith Cells (0-2) /HPF Urine Bacteria (None Seen) Hyaline Casts (0-2) /LPF Influenza Type A (PCR) (Negative) Influenza Type B (PCR) (Negative) RSV RNA Qual (PCR) (Negative) SARS-CoV-2 RNA (RT-PCR) (Negative) Independent Interpretation I performed an independent interpretation of an: EKG and Plain X-Ray Interpretation: EKG sinus rhythm with premature atrial complexes, ST elevation or depression. TX interval 198, QTC 440 Chest x-ray reviewed by hi Radiology Impression Discussion of test interpretation with radiology: I have reviewed the radiologist's reading. Radiologist Impression: EXAMINATION: XR CHEST CLINICAL INFORMATION: Shortness of breath. COMPARISON: 11/27/2023 TECHNIQUE: 2 views of the chest were obtained. FINDINGS: The lungs are well expanded. No focal consolidation. No pleural effusion. Cardiac silhouette is unchanged. XR/XR chest 2V IMPRESSION: No acute abnormality. Dictated By: Gray Rae MD Discharge Plan Discharge Clinical Impression: Chest pain, Abdominal pain Patient Disposition: Home, Self-Care Additional Instructions: Your workup in the emergency department today was overall very reassuring. There is no evidence of a heart attack as a cause for your chest pain or your shortness of breath. At this time there is no sign of an infection that would require treatment with antibiotics. Your urine does not show evidence of infection. Your viral tests are negative. The chest pain and abdominal pain have been chronic in nature, I recommend continuing the medications as you are currently prescribed and following up closely with your doctors. You may return back to emergency department any new or worsening symptoms or concerns. Prescriptions: No Action (DME) FreeStyle Lite Strips Strip See Rx Instructions .Route Qty: 100 3RF Rx Instructions: test blood sugar once a day (DME) FreeStyle Kelly 2 Sensor Kit See Rx Instructions .ROUTE .MEDSUPPLY Qty: 6 3RF Rx Instructions: As directed every 2 weeks clopidogrel 75 mg tablet 75 mg PO DAILY Qty: 90 1RF diltiazem HCl [Matzim LA] 300 mg tablet extended release 24 hr 300 mg PO DAILY Qty: 90 1RF citalopram 20 mg tablet 20 mg PO DAILY Qty: 90 1RF Jardiance 25 mg tablet 25 mg PO DAILY Qty: 90 1RF (DME) walker Misc See Rx Instructions .Route Qty: 1 0RF Rx Instructions: As directed ipratropium-albuterol 0.5 mg-3 mg(2.5 mg base)/3 mL solution for nebulization 3 ml inhalation BID PRN (Reason: sob) loratadine 10 mg Tablet 10 mg PO DAILY PRN (Reason: Allergy Symptoms) cholecalciferol (vitamin D3) 25 mcg (1,000 unit) Tablet 25 mcg PO DAILY docusate sodium 100 mg Capsule 100 mg PO BID PRN (Reason: Constipation) Qty: 30 0RF acetaminophen 325 mg Tablet 650 mg PO Q6H PRN (Reason: pain) Qty: 30 0RF albuterol sulfate [ProAir HFA] 90 mcg/actuation Hfa Aerosol Inhaler 2 puff INHALATION Q4H PRN (Reason: Shortness Of Breath) Hold Instructions: Resume on 06/29/23. pantoprazole 40 mg tablet,delayed release (DR/EC) 40 mg PO BID buspirone 5 mg tablet 5 mg PO BID furosemide 20 mg tablet 20 mg PO DAILY lisinopril 10 mg tablet 10 mg PO DAILY metoprolol tartrate 50 mg tablet 50 mg PO BID budesonide-formoterol [Symbicort] 160-4.5 mcg/actuation HFA aerosol inhaler 1 puff INHALATION BID montelukast 10 mg tablet 10 mg PO BEDTIME atorvastatin 80 mg tablet 80 mg PO BEDTIME lidocaine [Lidocaine Pain Relief] 4 % adhesive patch,medicated 1 patch transdermal DAILY PRN (Reason: Pain) Protocol: Apply to: Apply to: right flank polyethylene glycol 3350 17 gram powder in packet 17 g PO DAILY PRN (Reason: Constipation) insulin lispro [Humalog KwikPen Insulin] 100 unit/mL insulin pen 1 sliding scale dose subcut USEASDIRECTD Qty: 15 0RF Rx Instructions: BG <111 0 units, 111-150 - 0 units, 151-200 2 units, 201-250 4 units, 251-300 6 units, 301-350 8 units, >350 10 units insulin glargine [Lantus Solostar U-100 Insulin] 100 unit/mL (3 mL) insulin pen 25 unit subcut BEDTIME Qty: 15 0RF insulin lispro [Humalog KwikPen Insulin] 100 unit/mL Insulin Pen 1 sliding scale dose SUBCUT USEASDIRECTD Patient Comments: ADDED PER DR. ORTIZ Rx Instructions: BG <111 0 units, 111-150 - 0 units, 151-200 2 units, 201-250 4 units, 251-300 6 units, 301-350 8 units, >350 10 units famotidine [Pepcid] 40 mg tablet 40 mg PO BEDTIME Qty: 30 2RF Eliquis 5 mg tablet 5 mg PO BID Qty: 180 3RF Hold Instructions: Resume on 06/30/23. hold until patient on iv heparin Trulicity 3 mg/0.5 mL pen injector 3 mg subcut QWEEK Qty: 6 3RF Referrals: Amanda Leiva MD [Primary Care Provider] - Print Language: Citizen Of [place]
[2023-12-15 13:28] LABS: MANUAL DIFF FLAG NO
[2023-12-15 13:34] LABS: Basophils Absolute Auto 0.1 X10*3/uL (0.0-0.2); Basophils Percent Auto 0.6 % (0-2); Eosinophils Absolute Auto 0.6 X10*3/uL (0.0-0.4); Eosinophils Percent Auto 5.8 % (0-4); Imm Gran Abs Auto 0.05 X10*3/uL (0.00-0.03); Imm Gran Pct Auto 0.5 % (0.0-0.4); Lymphocytes Absolute Auto 2.3 X10*3/uL (1.2-4.9); Lymphocytes Percent Auto 23.2 % (20-40); Mean Corpuscular HGB Conc 30.3 g/dl (31.0-35.0); Mean Corpuscular Hemoglobin 23.1 pg (27.0-33.0); Mean Corpuscular Volume 76.4 fL (80.0-98.0); Mean Platelet Volume 9.5 fL (9.4-12.3); Monocytes Absolute Auto 0.7 X10*3/uL (0.1-1.2); Monocytes Percent Auto 7.2 % (2-11); Neutrophils Absolute Auto 6.1 x10*3/uL (2.0-8.3); Neutrophils Percent Auto 62.7 % (45-73); Platelet Count 354 X10*3/uL (160-400); Red Blood Count 4.32 X10*6/uL (4.20-5.50); Red Cell Distribution Width 18.1 % (11.0-16.0); White Blood Count 9.8 X10*3/uL (4.8-10.8)
[2023-12-15 14:06] LABS: Alanine Aminotransferase 12 U/L (0-31); Albumin Level 3.9 g/dL (3.5-5.0); Alkaline Phosphatase 118 U/L (39-117); Anion Gap 12 (12-20); Aspartate Amino Transferase 14 U/L (5-31); Bilirubin Direct 0.2 mg/dL (0.0-0.5); Bilirubin Total 0.4 mg/dL (0.0-1.0); Blood Urea Nitrogen 26 mg/dL (9-16); Calcium 8.8 mg/dL (8.4-10.2); Carbon Dioxide 27 mmol/L (22-29); Chloride 105 mmol/L (96-108); Creatinine Clr Calc Pharmacy 47.4; Estimated Glomerular Filt Rate 47; Glucose Random 89 mg/dL (60-115); Lipase 146 U/L (8-78); Magnesium 2.1 mg/dL (1.6-2.6); Potassium 4.1 mmol/L (3.3-5.1); Sodium 140 mmol/L (135-145); Total Protein 6.9 g/dL (6.5-8.0)
[2023-12-15 14:07] LABS: Influenza A PCR NEGATIVE (Negative); Influenza B PCR NEGATIVE (Negative); Resp Syncy Virus RNA Qual PCR NEGATIVE (Negative); SARS COV2 PCR INHOUSE NEGATIVE (Negative)
[2023-12-15 14:10] LABS: B Type Natriuretic Peptide 108 pg/mL (<100)
[2023-12-15 14:13] LABS: Troponin-I High Sensitivity 5.8 ng/L (<3.5-17.0)
[2023-12-15 14:27] LABS: Appearance Urine Clear; Color Urine Yellow; Glucose Urine UA 500 mg/dL (Negative); Leukocyte Esterase Urine Small (1+) (Negative); Nitrite Urine Negative (Negative); UMIC TRIGGER UACC YES; Urine Blood Small (1+) (Negative); Urine Ketones Negative (Negative); Urine Protein Negative (Neg-Trace)
[2023-12-15 14:41] LABS: Bacteria Urine None Seen (None Seen); Hyaline Casts Urine 0-2 /LPF (0-2); RBC Urine 0-2 /HPF (0-2); UACC Culture Trigger YES; WBC Urine 0-5 /HPF (0-5)
[2023-12-15] MEDS: Acetaminophen 325 MG TABLET 650 MG PO (14:49)
--- NOTE | 2023-12-15 17:36 | ECG_ITS ---
Test Reason : CHEST PAIN Blood Pressure : / mmHG Vent. Rate : 067 BPM Atrial Rate : 067 BPM P-R Int : 198 ms QRS Dur : 082 ms QT Int : 414 ms P-R-T Axes : 051 034 070 degrees QTc Int : 437 ms Normal sinus rhythm Nonspecific T wave abnormality Abnormal ECG When compared with ECG of 15-DEC-2023 12:49, Premature atrial complexes are no longer Present Referred By: Cece Longoria Electronically Signed By:Brad French
[2023-12-15] MEDS: Morphine Sulfate 4 MG/ML CARTRIDGE IVPUSH ×2 (18:22→21:44)
[2023-12-15] MEDS: 0.9 % Sodium Chloride 1,000 ML 500 ML IV (18:23)
[2023-12-15 20:33] LABS: Glucose, Whole Blood 93 mg/dL (60-115)
[2023-12-15] MEDS: Magnesium Hydrox/Alum Hydrox 30 ML ORAL.SUSP PO (21:44)
[2023-12-15] MEDS: Famotidine/PF 20 MG/2 ML VIAL IVPUSH (21:44)
[2023-12-15] MEDS: Lidocaine HCl Viscous 2 % 15 ML SOLUTION MUCOUS MEM (21:44)
[2023-12-16 00:54] VITALS: BP 126/41; PULSE 94; RESP 17; TEMP 36.7; O2SAT 98
[2023-12-16 01:14] VITALS: BP 126/41; PULSE 75; RESP 18; TEMP 36.8; O2SAT 95
== END 2023-12-16 01:23 | disposition home or self-care (01) ==
PROVIDERS: Physician Assistant Medical; Emergency Provider Student in an Organized Health Care Education/Training Program; PCP Internal Medicine
DX: R07.89 Other chest pain (principal); R06.02 Shortness of breath; R42 Dizziness and giddiness; I25.2 Old myocardial infarction; Z79.01 Long term (current) use of anticoagulants; I48.91 Unspecified atrial fibrillation; Z11.52 Encounter for screening for COVID-19; Z20.822 Contact with and (suspected) exposure to COVID-19; Z79.899 Other long term (current) drug therapy; Z87.891 Personal history of nicotine dependence
CPT/HCPCS: 0241U; 36415; 71046; 76700; 80048; 80076; 81001; 82947; 83690; 83735; 83880; 84484; 85025; 87086; 93005; 96374; 96375; 96376; 99285; J2270

== ENCOUNTER → 2023-12-15 12:49 | Outpatient (BNV) | payer MEDICARE, SELFPAY | PROVIDERS: Emergency Provider Student in an Organized Health Care Education/Training Program; PCP Internal Medicine; Visit Provider Internal Medicine Cardiovascular Disease | DX: R94.31 Abnormal electrocardiogram [ECG] [EKG] (principal) | CPT/HCPCS: 93010 ==

== ENCOUNTER 2023-12-16 11:55 | Emergency (ER) | payer MEDICARE, SELFPAY ==
--- NOTE | ~2023-12-16 | XR_ITS ---
EXAMINATION: XR CHEST CLINICAL INFORMATION: 73-year-old female with shortness of breath COMPARISON: 12/15/2023 TECHNIQUE: 2 views of the chest were obtained. FINDINGS: Lungs are well-expanded with linear atelectasis in the right middle lobe no evidence of consolidations. Atelectasis seen in the left lung base also. Patient is status post fusion of the cervical spine with hardware in place. XR/XR chest 2V IMPRESSION: No active cardiopulmonary disease. Left basilar atelectasis and scarring in right middle lobe
--- NOTE | ~2023-12-16 | MR_ITS ---
EXAMINATION: MR ABDOMEN WITHOUT CONTRAST CLINICAL INFORMATION: Questionable retained stone COMPARISON: Ultrasound from 12/15/[address] abdomen from 12/01/2023 TECHNIQUE: MR abdomen is performed without gadolinium contrast. MRCP FINDINGS: LUNG BASES: The visualized lung bases are unremarkable. LIVER, GALLBLADDER, AND BILIARY TREE: The liver is normal in size, smooth in contour, and normal in signal. No focal hepatic lesion or biliary ductal dilatation is present. There is tiny high signal intensity lesion in the right lobe of the liver due to is small cyst measured approximately 0.5 cm. Gallbladder is surgically absent. CBD is not dilated and not retained stones. Its tapers down to the punctate size but at the level of liver is measured 0.9 cm. PANCREAS: Pancreas is unremarkable with mildly prominent pancreatic duct in the pancreatic head and proximal body. SPLEEN: Unremarkable. ADRENAL GLANDS: Unremarkable. KIDNEYS AND URETERS: Right kidney is atrophic with small cortical cysts, no hydroureteronephrosis. Left kidney is unremarkable without hydroureteronephrosis masses. There is upper pole 0.6 cm cyst. GASTROINTESTINAL TRACT: No bowel obstruction. No ascites or fluid collection. ABDOMINAL WALL: No significant hernia is appreciated. LYMPH NODES: No lymphadenopathy. VASCULAR: There are atherosclerotic changes in the wall of abdominal aorta without occlusion or aneurysmal dilatation. OSSEOUS STRUCTURES: Marrow signal normal. MR/MR MRCP IMPRESSION: 1. Status post cholecystectomy. CBD is not dilated and not retained stones. 2. Atrophic right kidney with small cortical cyst, no hydroureteronephrosis.
--- NOTE | ~2023-12-16 | CT_ITS ---
EXAMINATION: CT HEAD WITHOUT CONTRAST CLINICAL INFORMATION: Transient slurred speech COMPARISON: CT head 12/31/2022. TECHNIQUE: Contiguous axial imaging was performed from the skull base to vertex without intravenous administration of contrast. This CT examination was performed using dose optimization techniques as appropriate, variously including the following: *Automated exposure control *Adjustment of mA and/or kV according to patient size (this includes techniques or standardized protocols for targeted exams where dose is matched to indication/reason for exam; i.e. extremities or head) *Use of iterative reconstruction technique DLP: 779 mGy-cm FINDINGS: There is no evidence of acute intracranial hemorrhage or edematous territorial infarction. The maldonado-white matter differentiation appears preserved. Proportional prominence of the ventricles and cortical sulci with mild volume loss. Patchy and confluent periventricular and deep white matter hypodensities likely representing chronic microangiopathic changes. No mass effect, midline shift or extra-axial collection. No obstructive hydrocephalus. Empty sella is noted. No acute osseous or soft tissue abnormality. Aerosolized secretions within the right posterior ethmoid air cells and bilateral compartment of sphenoid sinuses. Rest of the included paranasal sinuses and mastoids are clear. CT/CT head/brain wo IV con IMPRESSION: 1. No evidence of acute intracranial hemorrhage or edematous territorial infarction. 2. Mild volume loss and extensive underlying chronic microangiopathic changes.
[2023-12-16 12:01] VITALS: BP 137/99; PULSE 68; O2SAT 95
[2023-12-16 12:02] VITALS: PULSE 74; RESP 22; TEMP 36.6; O2SAT 94; BMI 34.5
[2023-12-16 12:08] VITALS: BP 139/44; PULSE 78; RESP 20; O2SAT 98
--- NOTE | 2023-12-16 12:12 | ECG_ITS ---
Test Reason : sob Blood Pressure : / mmHG Vent. Rate : 072 BPM Atrial Rate : 072 BPM P-R Int : 198 ms QRS Dur : 080 ms QT Int : 400 ms P-R-T Axes : 049 048 072 degrees QTc Int : 438 ms Normal sinus rhythm Normal ECG When compared with ECG of 15-DEC-2023 18:44, No significant change was found Referred By: Winnie Murphy Electronically Signed By:Brad French
--- NOTE | 2023-12-16 12:13 | ED_ITS ---
HPI - SOB/Dyspnea General Chief Complaint: Dyspnea Stated Complaint: DIZZY, SOB X1 DAY 100% RA,SEEN T-1 PER EMS Time Seen by Provider: 12/16/23 12:02 Source: patient and family (Daughter) Mode of arrival: EMS History of Present Illness HPI Narrative: 73-year-old female who arrives via EMS with several complaints, the daughter states that since this morning she had an episode of slurred speech (patient does feel mildly diaphoretic at this time), the daughter also states that patient has been short of breath since last night, does have a history of anxiety and recently had a change in her antianxiety medication as well as currently being on chronic anticoagulation. Related Data Home Medications ?Medication ?Instructions ?Recorded ?Confirmed albuterol sulfate 90 mcg/actuation 2 puff inhalation Q4H PRN 06/25/23 12/13/23 aerosol inhaler (ProAir HFA) Shortness Of Breath cholecalciferol (vitamin D3) 25 25 mcg PO DAILY 08/11/23 12/13/23 mcg (1,000 unit) tablet ipratropium 0.5 mg-albuterol 3 mg 3 ml inhalation BID PRN sob 08/11/23 12/13/23 (2.5 mg base)/3 mL nebulization soln loratadine 10 mg tablet 10 mg PO DAILY PRN Allergy Symptoms 08/11/23 12/13/23 atorvastatin 80 mg tablet 80 mg PO BEDTIME 11/28/23 12/13/23 budesonide-formoterol HFA 160 1 puff inhalation BID 11/28/23 12/13/23 mcg-4.5 mcg/actuation aerosol inhaler (Symbicort) buspirone 5 mg tablet 5 mg PO BID 11/28/23 12/13/23 furosemide 20 mg tablet 20 mg PO DAILY 11/28/23 12/13/23 lidocaine 4 % topical patch 1 patch transdermal DAILY PRN Pain 11/28/23 12/13/23 (Lidocaine Pain Relief) lisinopril 10 mg tablet 10 mg PO DAILY 11/28/23 12/13/23 metoprolol tartrate 50 mg tablet 50 mg PO BID 11/28/23 12/13/23 montelukast 10 mg tablet 10 mg PO BEDTIME 11/28/23 12/13/23 pantoprazole 40 mg tablet,delayed 40 mg PO BID 11/28/23 12/13/23 release polyethylene glycol 3350 17 gram 17 g PO DAILY PRN Constipation 11/28/23 12/13/23 oral powder packet insulin lispro 100 unit/mL 1 sliding scale dose subcut 12/02/23 12/13/23 subcutaneous pen (Humalog KwikPen USEASDIRECTD (U-100) Insulin) Previous Rx's ?Medication ?Instructions ?Recorded walker #1 ea 02/28/23 blood sugar diagnostic (FreeStyle #100 ea 03/26/23 Lite Strips) flash glucose sensor (FreeStyle #6 ea 05/14/23 Kelly 2 Sensor kit) acetaminophen 325 mg tablet 650 mg (2 x 325 mg) PO Q6H PRN 08/22/23 pain #30 tabs docusate sodium 100 mg capsule 100 mg PO BID PRN Constipation #30 08/22/23 caps citalopram 20 mg tablet 20 mg PO DAILY #90 tabs 08/27/23 clopidogrel 75 mg tablet 75 mg PO DAILY #90 tabs 08/27/23 diltiazem HCl 300 mg 300 mg PO DAILY #90 tabs 08/27/23 tablet,extended release 24 hr (Matzim LA) empagliflozin 25 mg tablet 25 mg PO DAILY #90 tabs 09/21/23 (Jardiance) apixaban 5 mg tablet (Eliquis) 5 mg PO BID #180 tabs 09/27/23 dulaglutide 3 mg/0.5 mL 3 mg (0.5 mL) subcut QWEEK #6 mL 09/27/23 subcutaneous pen injector (Trulicity) insulin glargine 100 unit/mL (3 25 unit (0.25 mL) subcut BEDTIME 12/02/23 mL) subcutaneous pen (Lantus #15 mL Solostar U-100 Insulin) insulin lispro 100 unit/mL 1 sliding scale dose subcut 12/02/23 subcutaneous pen (Humalog KwikPen USEASDIRECTD #15 mL (U-100) Insulin) famotidine 40 mg tablet (Pepcid) 40 mg PO BEDTIME #30 tabs 12/13/23 Allergies Allergy/AdvReac Type Severity Reaction Status Date / Time Latex, Natural Rubber Allergy Severe blisters Verified 12/16/23 12:03 Sulfa (Sulfonamide Allergy Mild ITCHING, Verified 12/16/23 12:03 Antibiotics) rash [SULFA (SULFONAMIDE ANTIBIOTICS)] nystatin Allergy Unknown rash Verified 12/16/23 12:03 isosorbide [From Imdur] AdvReac Unknown HEADACHES, Verified 12/16/23 12:03 headache tizanidine AdvReac Unknown weakness, Verified 12/16/23 12:03 Hellucination Review of Systems 2 Review of Systems: Pertinent positives and negatives as stated in HPI [facility] Past Medical History Source: nursing notes reviewed Medical History Anemia CKD stage 3 due to type 2 diabetes mellitus Diabetes type 2, uncontrolled Tracheomalacia, acquired History of pulmonary embolism AG (acute kidney injury) CAD (coronary artery disease) Non-ST elevation [place] (NSTEMI) Paroxysmal atrial fibrillation Pulmonary embolism Obesity Dyslipidemia Hypertension senior living (current) use of insulin Respiratory failure Obstructive sleep apnea COPD (chronic obstructive pulmonary disease) Surgical History History of carpal tunnel surgery History of cholecystectomy History of lobectomy of lung Status post tracheoplasty History of cardiac cath Family History Family History Mother No problems noted. Father No problems noted. Brother Substance use disorder Brother Substance use disorder Social History Social History Household Members: Children Household Members Other:: 2 Housing: House Do you presently have visiting nurse or other home services: Yes ([facility] every 2 wks.) Alcohol intake: former Patient Tobacco Use Status: Former Tobacco user Quit Date: 1993 Tobacco use type: Cigarette Cigarettes Per Day: 10 Years Smoked: 3 Smoked in Last 30 Days: No e-Cigarette/Vaping Use: Never Used Second Hand Smoke Exposure: No Advance Directives: Yes Advance Directives on File: Yes Advance Directives Date on File: 06/29/23 service: No Current occupational status: retired Cognitive needs: No Hearing needs: No Vision needs: No Physical Exam 2 Vital Signs: Vital Signs: Last Vital Signs Temp 98 F 12/16/23 17:59 Pulse 68 12/16/23 17:59 Resp 16 12/16/23 17:59 BP 135/48 L 12/16/23 17:59 Pulse Ox 96 12/16/23 17:59 O2 Del Method Room Air 12/16/23 17:59 BMI result Body Mass Index 34.5 VITAL SIGNS: Reviewed. GENERAL: Well developed, well nourished, in no acute distress. HEAD: Normocephalic/atraumatic EYES: PERRLA, EOMI EARS: Ext canals without abnormality NOSE: Nares patent bilateral OROPHARYNX: no oral lesions noted, posterior pharynx clear NECK: Supple, no adenopathy LUNGS: Good inspiratory effort, tachypnea is present, expiratory wheeze noted SpO2<98> CARDIOVASCULAR: Regular rate and rhythm without noted murmurs, no JVD or lower extremity edema. ABDOMEN: Soft, non-tender, non-distended with bowel sounds. MUSCULOSKELETAL: No tenderness, deformities, or effusions noted on gross inspection. EXTREMITIES: No cyanosis, clubbing or edema. SKIN: Inspection of the skin reveals no rashes NEUROLOGIC: Alert and oriented x 4. Strength and sensation to light touch were grossly intact x 4, no slurred speech, no facial asymmetry, no pronator drift, cranial nerves 2-12 are grossly intact. Medications Administered Discontinued Medications Generic Name Dose Route Start Last Admin Trade Name Freq PRN Reason Stop Dose Admin Furosemide 60 mg 12/16/23 13:22 12/16/23 13:37 Furosemide 100 Mg/10 Ml Vial IVPUSH 12/16/23 13:23 60 mg ONCE ONE Administration Protocol Medical Decision Making Medical Decision Making MDM Narrative: 73-year-old female with history and clinical presentation, DDX: Anxiety, CHF,? Asthma, patient is on chronic anticoagulation and do not suspect ischemic etiology for slurred speech but as she was noted to be diaphoretic will obtain point of care glucose and suspect possible low blood sugar and will CT head for any evidence of intracranial hemorrhage the patient is currently nonfocal. I reviewed all investigations and hematologic indices are chronically stable without leukocytosis or left shift, there is no thrombocytopenia there is a chronic microcytic anemia. Coagulation studies are elevated which reflects patient has known use of chronic anticoagulation. VBG does not demonstrate any respiratory acidosis and mild hypercapnia consistent with patient's longstanding values. Chemistry indices do not demonstrate an AG, there is no electrolyte derangement but there is noted elevations in patient's transaminases to include the alkaline phosphatase which are a change from her visit yesterday. Patient is status post cholecystectomy and lipase has completely resolved today raising suspicion for possible passage of retained stones although ultrasound and prior CT scans of the abdomen pelvis have been negative for acute findings. Troponin is noted to be chronically detectable but not significantly elevated there are no acute EKG changes. BNP is noted to be mildly elevated in combination with clinical findings on lung auscultation and noted increased congestion on chest x-ray prelim read by me. Urinalysis is negative for UTI. Patient treated with 40 mg of Lasix. Official read of chest x-ray negative for venous congestion but read as left base atelectasis. 1506: I discussed the case with Dr. Sorenson GI, who agrees that MRCP will be the next best step to identify whether or not patient has noncalcified stones or possible retained stones. MRCP not significant for acute changes within the CBD or any evidence to suggest retained stones. I discussed all findings and results with the patient at bedside and she is otherwise discharged home with instructions to follow-up with gastroenterology for further evaluation of her pain. Differential Diagnosis Differential Diagnoses: The differential diagnosis associated with the presentation includes Please see the discussion above Admission/Observation Consideration of admission/observation: Escalation of care including admission/observation considered Please see the discussion above Lab Data MDM Lab Attestation statement: I reviewed the patient's lab results. Please see the discussion above 12/16/23 12:51 12/16/23 12:50 Labs: Lab Results 12/16/23 12/16/23 12/16/23 Range/Units 12:50 12:51 12:56 WBC 9.4 (4.8-10.8) X10*3/uL RBC 4.48 (4.20-5.50) X10*6/uL Hgb 10.2 L (12.0-16.0) g/dl Hct 34.1 L (37.0-47.0) % MCV 76.1 L (80.0-98.0) fL MCH 22.8 L (27.0-33.0) pg MCHC 29.9 L (31.0-35.0) g/dl RDW 18.6 H (11.0-16.0) % Plt Count 365 (160-400) X10*3/uL MPV 9.6 (9.4-12.3) fL Immature Gran % (Auto) 0.4 (0.0-0.4) % Neut % (Auto) 68.4 (45-73) % Lymph % (Auto) 18.3 L (20-40) % [place] % (Auto) 6.7 (2-11) % Eos % (Auto) 5.6 H (0-4) % Baso % (Auto) 0.6 (0-2) % Lymph # (Auto) 1.7 (1.2-4.9) X10*3/uL [place] # (Auto) 0.6 (0.1-1.2) X10*3/uL Eos # (Auto) 0.5 H (0.0-0.4) X10*3/uL Baso # (Auto) 0.1 (0.0-0.2) X10*3/uL Abs Immat Gran (auto) 0.04 H (0.00-0.03) X10*3/uL Absolute Neuts (auto) 6.4 (2.0-8.3) x10*3/uL Absolute Nucleated RBC 0.000 (0.0-0.012) X10*3/uL Nucleated RBC % (auto) 0.0 (0.0-0.2) /100WBC PT 18.2 H D (11.1-13.3) SEC INR 1.5 H (0.9-1.1) VBG pH 7.34 (7.32-7.43) VBG pCO2 49 mmHg VBG pO2 42 mmHg VBG HCO3 27 H (22-26) mmol/L VBG O2 Saturation 61.0 % VBG Base Excess 1.1 mmol/L Sodium 140 (135-145) mmol/L Potassium 4.4 (3.3-5.1) mmol/L Chloride 104 (96-108) mmol/L Carbon Dioxide 26 (22-29) mmol/L Anion Gap 14 (12-20) BUN 25 H (9-16) mg/dL Creatinine 1.36 (0.5-1.4) mg/dL Estim Creat Clear Calc 39.1 Estimated GFR 38 Random Glucose 181 H (60-115) mg/dL Calcium 9.2 (8.4-10.2) mg/dL Total Bilirubin 0.6 (0.0-1.0) mg/dL AST 70 H (5-31) U/L ALT 84 H (0-31) U/L Alkaline Phosphatase 382 H (39-117) U/L Troponin I High Sens 5.8 (<3.5-17.0) ng/L B-Natriuretic Peptide 131 H (<100) pg/mL Total Protein 7.3 (6.5-8.0) g/dL Albumin 3.9 (3.5-5.0) g/dL Lipase 16 (8-78) U/L Urine Color Urine Appearance Urine pH (5.0-9.0) Ur Specific [place] (1.005-1.025) Urine Protein (Neg-Trace) mg/dL Urine Glucose (UA) (Negative) mg/dL Urine Ketones (Negative) mg/dL Urine Blood (Negative) Urine Nitrite (Negative) Ur Leukocyte Esterase (Negative) Urine RBC (0-2) /HPF Urine WBC (0-5) /HPF Ur Squamous Epith Cells (0-2) /HPF Urine Bacteria (None Seen) Hyaline Casts (0-2) /LPF 12/16/23 Range/Units 16:09 WBC (4.8-10.8) X10*3/uL RBC (4.20-5.50) X10*6/uL Hgb (12.0-16.0) g/dl Hct (37.0-47.0) % MCV (80.0-98.0) fL MCH (27.0-33.0) pg MCHC (31.0-35.0) g/dl RDW (11.0-16.0) % Plt Count (160-400) X10*3/uL MPV (9.4-12.3) fL Immature Gran % (Auto) (0.0-0.4) % Neut % (Auto) (45-73) % Lymph % (Auto) (20-40) % [place] % (Auto) (2-11) % Eos % (Auto) (0-4) % Baso % (Auto) (0-2) % Lymph # (Auto) (1.2-4.9) X10*3/uL [place] # (Auto) (0.1-1.2) X10*3/uL Eos # (Auto) (0.0-0.4) X10*3/uL Baso # (Auto) (0.0-0.2) X10*3/uL Abs Immat Gran (auto) (0.00-0.03) X10*3/uL Absolute Neuts (auto) (2.0-8.3) x10*3/uL Absolute Nucleated RBC (0.0-0.012) X10*3/uL Nucleated RBC % (auto) (0.0-0.2) /100WBC PT (11.1-13.3) SEC INR (0.9-1.1) VBG pH (7.32-7.43) VBG pCO2 mmHg VBG pO2 mmHg VBG HCO3 (22-26) mmol/L VBG O2 Saturation % VBG Base Excess mmol/L Sodium (135-145) mmol/L Potassium (3.3-5.1) mmol/L Chloride (96-108) mmol/L Carbon Dioxide (22-29) mmol/L Anion Gap (12-20) BUN (9-16) mg/dL Creatinine (0.5-1.4) mg/dL Estim Creat Clear Calc Estimated GFR Random Glucose (60-115) mg/dL Calcium (8.4-10.2) mg/dL Total Bilirubin (0.0-1.0) mg/dL AST (5-31) U/L ALT (0-31) U/L Alkaline Phosphatase (39-117) U/L Troponin I High Sens (<3.5-17.0) ng/L B-Natriuretic Peptide (<100) pg/mL Total Protein (6.5-8.0) g/dL Albumin (3.5-5.0) g/dL Lipase (8-78) U/L Urine Color Yellow Urine Appearance Clear Urine pH 5.0 (5.0-9.0) Ur Specific [place] 1.010 (1.005-1.025) Urine Protein Negative (Neg-Trace) mg/dL Urine Glucose (UA) 500 H (Negative) mg/dL Urine Ketones Negative (Negative) mg/dL Urine Blood Negative (Negative) Urine Nitrite Negative (Negative) Ur Leukocyte Esterase Trace H (Negative) Urine RBC 0-2 (0-2) /HPF Urine WBC 0-5 (0-5) /HPF Ur Squamous Epith Cells 0-2 (0-2) /HPF Urine Bacteria None Seen (None Seen) Hyaline Casts 0-2 (0-2) /LPF Independent Interpretation I performed an independent interpretation of an: EKG Interpretation: Normal sinus rhythm, HR-72, no STEMI, TN/QRS/QTC is within normal limits. Radiology Impression Discussion of test interpretation with radiology: I have reviewed the radiologist's reading. Radiologist Impression: Please see the discussion above External Record Review External record reviewed: Outpatient record, Prior outpatient labs and Prior outpatient radiology Chronic Conditions Patient?s care impacted by: Diabetes, Hypertension and Other Anxiety Critical Care Time Critical Care Time Critical Care Time: Yes Total Critical Care Time: 45 Attestation: I personally attest to this time spent taking care of the patient. Discharge Plan Discharge Clinical Impression: Epigastric abdominal pain, CHF (congestive heart failure), Abnormal liver enzymes Patient Disposition: Home, Self-Care Instructions: Epigastric Pain (ED), Heart Failure (ED) Additional Instructions: 1. Resume all home medications as prescribed. 2. Please follow-up with your primary care doctor by calling the office in the morning and setting up an appointment for re-evaluation further outpatient management. 3. Please follow-up with Gastroenterology by calling the office in the morning and setting up an appointment for re-evaluation. Do not hesitate to return to the emergency room should you experience any acute worsening of your symptoms. Prescriptions: No Action (DME) FreeStyle Lite Strips Strip See Rx Instructions .Route Qty: 100 3RF Rx Instructions: test blood sugar once a day (DME) FreeStyle Kelly 2 Sensor Kit See Rx Instructions .ROUTE .MEDSUPPLY Qty: 6 3RF Rx Instructions: As directed every 2 weeks clopidogrel 75 mg tablet 75 mg PO DAILY Qty: 90 1RF diltiazem HCl [Matzim LA] 300 mg tablet extended release 24 hr 300 mg PO DAILY Qty: 90 1RF citalopram 20 mg tablet 20 mg PO DAILY Qty: 90 1RF Jardiance 25 mg tablet 25 mg PO DAILY Qty: 90 1RF (DME) belgica Misc See Rx Instructions .Route Qty: 1 0RF Rx Instructions: As directed ipratropium-albuterol 0.5 mg-3 mg(2.5 mg base)/3 mL solution for nebulization 3 ml inhalation BID PRN (Reason: sob) loratadine 10 mg Tablet 10 mg PO DAILY PRN (Reason: Allergy Symptoms) cholecalciferol (vitamin D3) 25 mcg (1,000 unit) Tablet 25 mcg PO DAILY docusate sodium 100 mg Capsule 100 mg PO BID PRN (Reason: Constipation) Qty: 30 0RF acetaminophen 325 mg Tablet 650 mg PO Q6H PRN (Reason: pain) Qty: 30 0RF albuterol sulfate [ProAir HFA] 90 mcg/actuation Hfa Aerosol Inhaler 2 puff INHALATION Q4H PRN (Reason: Shortness Of Breath) Hold Instructions: Resume on 06/29/23. pantoprazole 40 mg tablet,delayed release (DR/EC) 40 mg PO BID buspirone 5 mg tablet 5 mg PO BID furosemide 20 mg tablet 20 mg PO DAILY lisinopril 10 mg tablet 10 mg PO DAILY metoprolol tartrate 50 mg tablet 50 mg PO BID budesonide-formoterol [Symbicort] 160-4.5 mcg/actuation HFA aerosol inhaler 1 puff INHALATION BID montelukast 10 mg tablet 10 mg PO BEDTIME atorvastatin 80 mg tablet 80 mg PO BEDTIME lidocaine [Lidocaine Pain Relief] 4 % adhesive patch,medicated 1 patch transdermal DAILY PRN (Reason: Pain) Protocol: Apply to: Apply to: right flank polyethylene glycol 3350 17 gram powder in packet 17 g PO DAILY PRN (Reason: Constipation) insulin lispro [Humalog KwikPen Insulin] 100 unit/mL insulin pen 1 sliding scale dose subcut USEASDIRECTD Qty: 15 0RF Rx Instructions: BG <111 0 units, 111-150 - 0 units, 151-200 2 units, 201-250 4 units, 251-300 6 units, 301-350 8 units, >350 10 units insulin glargine [Lantus Solostar U-100 Insulin] 100 unit/mL (3 mL) insulin pen 25 unit subcut BEDTIME Qty: 15 0RF insulin lispro [Humalog KwikPen Insulin] 100 unit/mL Insulin Pen 1 sliding scale dose SUBCUT USEASDIRECTD Patient Comments: ADDED PER DR. ORTIZ Rx Instructions: BG <111 0 units, 111-150 - 0 units, 151-200 2 units, 201-250 4 units, 251-300 6 units, 301-350 8 units, >350 10 units famotidine [Pepcid] 40 mg tablet 40 mg PO BEDTIME Qty: 30 2RF Eliquis 5 mg tablet 5 mg PO BID Qty: 180 3RF Hold Instructions: Resume on 06/30/23. hold until patient on iv heparin Trulicity 3 mg/0.5 mL pen injector 3 mg subcut QWEEK Qty: 6 3RF Referrals: Amanda Leiva MD [Primary Care Provider] - Marcel Sorenson MD [Physician] - Print Language: Romansh
[2023-12-16 12:56] LABS: MANUAL DIFF FLAG NO
[2023-12-16 13:01] LABS: Basophils Absolute Auto 0.1 X10*3/uL (0.0-0.2); Basophils Percent Auto 0.6 % (0-2); Eosinophils Absolute Auto 0.5 X10*3/uL (0.0-0.4); Eosinophils Percent Auto 5.6 % (0-4); Hematocrit 34.1 % (37.0-47.0); Hemoglobin 10.2 g/dl (12.0-16.0); Imm Gran Abs Auto 0.04 X10*3/uL (0.00-0.03); Imm Gran Pct Auto 0.4 % (0.0-0.4); Lymphocytes Absolute Auto 1.7 X10*3/uL (1.2-4.9); Lymphocytes Percent Auto 18.3 % (20-40); Mean Corpuscular HGB Conc 29.9 g/dl (31.0-35.0); Mean Corpuscular Hemoglobin 22.8 pg (27.0-33.0); Mean Corpuscular Volume 76.1 fL (80.0-98.0); Mean Platelet Volume 9.6 fL (9.4-12.3); Monocytes Absolute Auto 0.6 X10*3/uL (0.1-1.2); Monocytes Percent Auto 6.7 % (2-11); Neutrophils Absolute Auto 6.4 x10*3/uL (2.0-8.3); Neutrophils Percent Auto 68.4 % (45-73); Platelet Count 365 X10*3/uL (160-400); Red Blood Count 4.48 X10*6/uL (4.20-5.50); Red Cell Distribution Width 18.6 % (11.0-16.0); White Blood Count 9.4 X10*3/uL (4.8-10.8)
[2023-12-16 13:02] LABS: Venous Blood Gas Refer to POC result
[2023-12-16 13:02] LABS: VBG Base Excess 1.1 mmol/L; VBG HCO3 27 mmol/L (22-26); VBG pCO2 49 mmHg; VBG pH 7.34 (7.32-7.43); VBG pO2 42 mmHg
[2023-12-16 13:03] LABS: INTERNATIONAL NORM RATIO 1.5 (0.9-1.1); Prothrombin Time 18.2 SEC (11.1-13.3)
[2023-12-16 13:12] LABS: Alanine Aminotransferase 84 U/L (0-31); Albumin Level 3.9 g/dL (3.5-5.0); Alkaline Phosphatase 382 U/L (39-117); Anion Gap 14 (12-20); Aspartate Amino Transferase 70 U/L (5-31); Bilirubin Total 0.6 mg/dL (0.0-1.0); Blood Urea Nitrogen 25 mg/dL (9-16); Calcium 9.2 mg/dL (8.4-10.2); Carbon Dioxide 26 mmol/L (22-29); Chloride 104 mmol/L (96-108); Creatinine Clr Calc Pharmacy 39.1; Estimated Glomerular Filt Rate 38; Glucose Random 181 mg/dL (60-115); Potassium 4.4 mmol/L (3.3-5.1); Sodium 140 mmol/L (135-145); Total Protein 7.3 g/dL (6.5-8.0)
[2023-12-16 13:18] LABS: B Type Natriuretic Peptide 131 pg/mL (<100)
[2023-12-16 13:19] LABS: Troponin-I High Sensitivity 5.8 ng/L (<3.5-17.0)
[2023-12-16] MEDS: Furosemide 100 MG/10 ML VIAL 60 MG IVPUSH (13:37)
[2023-12-16 13:55] LABS: Lipase 16 U/L (8-78)
[2023-12-16 14:00] VITALS: BP 120/51; PULSE 62; RESP 18; TEMP 37.1; O2SAT 97
--- NOTE | 2023-12-16 15:31 | PC.NURSE ---
MRI screening form completed, MRI stating they will come to get patient soon
--- NOTE | 2023-12-16 15:55 | PC.NURSE ---
Brought to MRI by transport
[2023-12-16 16:15] LABS: Appearance Urine Clear; Color Urine Yellow; Glucose Urine UA 500 mg/dL (Negative); Leukocyte Esterase Urine Trace (Negative); Nitrite Urine Negative (Negative); UMIC TRIGGER UACC YES; Urine Blood Negative (Negative); Urine Ketones Negative (Negative); Urine Protein Negative (Neg-Trace)
[2023-12-16 16:17] LABS: Bacteria Urine None Seen (None Seen); Hyaline Casts Urine 0-2 /LPF (0-2); RBC Urine 0-2 /HPF (0-2); Squamous Epithelial Cell Urine 0-2 /HPF (0-2); WBC Urine 0-5 /HPF (0-5)
[2023-12-16 17:59] VITALS: BP 135/48; PULSE 68; RESP 16; TEMP 36.6; O2SAT 96
[2023-12-16 19:44] VITALS: BP 150/35; PULSE 72; RESP 18; TEMP 36.6; O2SAT 97
== END 2023-12-16 20:00 | disposition home or self-care (01) ==
PROVIDERS: Emergency Provider Student in an Organized Health Care Education/Training Program; PCP Internal Medicine
DX: R10.13 Epigastric pain (principal); I50.9 Heart failure, unspecified; R06.02 Shortness of breath; R42 Dizziness and giddiness; R51.9 Headache, unspecified; R79.89 Other specified abnormal findings of blood chemistry; Z79.899 Other long term (current) drug therapy
CPT/HCPCS: 36415; 70450; 71046; 74181; 80053; 81001; 82803; 83690; 83880; 84484; 85025; 85610; 93005; 96374; 99284; 99285; J1940

== ENCOUNTER → 2023-12-16 12:12 | Outpatient (BNV) | payer MEDICARE, SELFPAY | PROVIDERS: Emergency Provider Student in an Organized Health Care Education/Training Program; PCP Internal Medicine; Visit Provider Internal Medicine Cardiovascular Disease | DX: R06.02 Shortness of breath (principal) | CPT/HCPCS: 93010 ==

== ENCOUNTER 2023-12-29 09:22 | Outpatient (AMB) | payer MEDICARE, SELFPAY ==
--- NOTE | 2023-12-29 10:03 | A.OFFPC_ITS ---
Vital Signs 12/29/23 10:05 Height 5 ft 4 in Weight 197 lb BMI 33.8 BP 120/62 Blood Pressure Location Rt brachial Position Sitting Pulse 70 Pulse Source Pulse Oximeter Pulse Oximetry (%) 97 Oxygen Delivery Method Room Air Intake Visit Reasons: black stools, wheezing Allergies Latex, Natural Rubber Allergy (Severe, Verified 12/29/23 10:05) blisters Sulfa (Sulfonamide Antibiotics) [SULFA (SULFONAMIDE ANTIBIOTICS)] Allergy (Mild, Verified 12/29/23 10:05) ITCHING, rash nystatin Allergy (Unknown, Verified 12/29/23 10:05) rash isosorbide [From Imdur] Adverse Reaction (Unknown, Verified 12/29/23 10:05) HEADACHES, headache tizanidine Adverse Reaction (Unknown, Verified 12/29/23 10:05) weakness, Hellucination Medication List - Last Reconciled 12/29/23 by Amanda Leiva MD acetaminophen 650 mg (2 x 325 mg) PO Q6H PRN albuterol sulfate 90 mcg/actuation (ProAir HFA) 2 puffs inhalation Q4H PRN apixaban (Eliquis) 5 mg PO BID atorvastatin 80 mg PO BEDTIME blood sugar diagnostic (FreeStyle Lite Strips) test blood sugar once a day budesonide-formoterol 160-4.5 mcg/actuation (Symbicort) 1 puff inhalation BID buspirone 5 mg PO BID cholecalciferol (vitamin D3) 25 mcg PO DAILY citalopram 20 mg PO DAILY clopidogrel 75 mg PO DAILY diltiazem HCl ER 300 mg PO DAILY docusate sodium 100 mg PO BID PRN empagliflozin (Jardiance) 25 mg PO DAILY famotidine (Pepcid) 40 mg PO BEDTIME flash glucose sensor (FreeStyle Kelly 2 Sensor kit) As directed every 2 weeks furosemide 20 mg PO DAILY insulin glargine (Lantus Solostar U-100 Insulin) 25 units (0.25 mL) subcut BEDTIME insulin lispro (Humalog KwikPen (U-100) Insulin) 1 sliding scale dose subcut USEASDIRECTD insulin lispro (Humalog KwikPen (U-100) Insulin) 1 sliding scale dose subcut USEASDIRECTD ipratropium-albuterol 0.5 mg-3 mg(2.5 mg base)/3 mL 3 mL inhalation BID PRN lisinopril 10 mg PO DAILY loratadine 10 mg PO DAILY PRN metoprolol tartrate 50 mg PO BID montelukast 10 mg PO BEDTIME pantoprazole 40 mg PO BID walker As directed Tobacco use date assessed: 12/29/23 Fall risk assessment: No Falls in past year Last assessed Fall Risk: 12/29/23 Dental Screening Dental Screen Date: 12/29/23 Did you have a dental visit in the last 12 months?: No Was dental information given to patient?: Patient declined HPI black stools, wheezing HPI Details Patient presents for the follow-up of 2 ER visits in the last month. Patient had an episode of increased shortness of breath wheezing and went to the emergency room where she improved after DuoNeb treatment. The workup included CT of the abdomen MRCP for borderline elevated LFT which were negative. Patient reports epigastric this for comfort underwent EGD in emergency room which was negative for acute bleeding or ulcer. Patient has been taking PPI twice a day. Patient reports feeling down most days of the week but denies suicidal ideation. She has not been motivated to go outside to her yard. She has been taking 20 mg of citalopram. Patient has been having difficulty getting 3 mg of Trulicity at pharmacies because of shortage. She reports elevated blood glucose readings up to 180 since she ran out of Trulicity. Patient has an appointment with the railway signal electrician next week and will discuss stress test to evaluate for physical activity induced shortness for breath. Patient reports intermittent black stools but denies hematochezia. She was transfused 1 units of PRBC's in the beginning of November in the ER. [facility] Medical History Anemia CKD stage 3 due to type 2 diabetes mellitus Diabetes type 2, uncontrolled Tracheomalacia, acquired History of pulmonary embolism AG (acute kidney injury) CAD (coronary artery disease) Non-ST elevation [place] (NSTEMI) Paroxysmal atrial fibrillation Pulmonary embolism Obesity Dyslipidemia Hypertension long-term (current) use of insulin Respiratory failure Obstructive sleep apnea COPD (chronic obstructive pulmonary disease) Surgical History History of carpal tunnel surgery History of cholecystectomy History of lobectomy of lung Status post tracheoplasty History of cardiac cath Family History Mother No problems noted. Father No problems noted. Brother Substance use disorder Brother Substance use disorder Social History Household Members: Children Household Members Other:: 2 Housing: House Do you presently have visiting nurse or other home services: Yes ([facility] every 2 wks.) Alcohol intake: former Patient Tobacco Use Status: Former Tobacco user Quit Date: 1993 Tobacco use type: Cigarette Cigarettes Per Day: 10 Years Smoked: 3 e-Cigarette/Vaping Use: Never Used Second Hand Smoke Exposure: No Advance Directives Date on File: 06/29/23 service: No Current occupational status: retired Cognitive needs: No Hearing needs: No Vision needs: No Questionnaire Thrive Questionnaire Date Thrive assessed: 11/28/23 AUDIT C Alcohol Use Questionnaire (AUDIT-C) 1. How often do you have a drink containing alcohol?: Never Total Score: 0 DOMINIQUE-7 AMB Questionnaire DOMINIQUE-7 Date DOMINIQUE - 7 assessed: 12/13/23 Source: Developed by Drs. Jeronimo Wallis, Saige Barrios, Nj Will and colleagues, with an educational katharine from [employer]. Review of Systems Const All systems reviewed & are unremarkable except as noted in HPI and below Eyes Reports no additional complaints ENT Reports no additional complaints Card Reports no additional complaints Resp Reports no additional complaints GI Reports no additional complaints Reports no additional complaints Physical exam (Primary Care) Vital Signs: Last Vital Signs Pulse 70 12/29/23 10:05 BP 120/62 12/29/23 10:05 Pulse Ox 97 12/29/23 10:05 Oxygen Delivery Method Room Air 12/29/23 10:05 BMI result Body Mass Index 33.8 Tobacco/Smoking Status: Tobacco use Status Tobacco use date assessed 12/29/23 12/29/23 10:12 Patient Tobacco Use Status Former Tobacco user 12/29/23 10:05 Tobacco use type Cigarette 12/29/23 10:05 e-Cigarette/Vaping Use Never Used 12/29/23 10:05 Thrive Assessment: Date of Thrive Assessment Date Thrive assessed 11/28/23 12/29/23 10:05 Const General: no acute distress HENMT Head: Yes normal to inspection Face and sinus: Yes normal facial exam Eyes General: appearance normal, both eyes and all related structures Neck Neck: Yes no lymphadenopathy and Yes supple Chest Chest palpation & inspection: normal inspection of the chest Resp Effort & Inspection: normal respiratory effort Auscultation: clear to auscultation bilaterally Cardio Rhythm: regular rhythm Heart sounds: S1 normal heart sound present and S2 normal heart sound present GI Inspection: Yes normal to inspection Palpation (GI): Soft to palpation Percussion: Yes normal to percussion Auscultation: normal bowel sounds Assessment and Plan Assessment & Plan (1) CKD stage 3 due to type 2 diabetes mellitus: Code(s): E11.22 - Type 2 diabetes mellitus with diabetic chronic kidney disease; N18.30 - Chronic kidney disease, stage 3 unspecified Plan: Monitor renal function and avoid nephrotoxins (2) Acute exacerbation of chronic obstructive pulmonary disease: Code(s): J44.1 - Chronic obstructive pulmonary disease with (acute) exacerbation Plan: DuoNeb is added to Symbicort to take up to 3 times a day, follow-up with pulmonology (3) Diabetes type 2, uncontrolled: Code(s): E11.65 - Type 2 diabetes mellitus with hyperglycemia Qualifiers: Glycemic state: with hyperglycemia Qualified Code(s): E11.65 - Type 2 diabetes mellitus with hyperglycemia Plan: ADA diet increase physical activity weight loss discussed with the patient patient will try to get 4.5 mg of Trulicity, check A1c today (4) Anemia: Comment: Negative EGD 12/28 Code(s): D64.9 - Anemia, unspecified Qualifiers: Anemia type: unspecified type Qualified Code(s): D64.9 - Anemia, unspecified Plan: Check CBC and iron studies patient was giving FIT stool test, FOLLOW-UP WITH THE GI IN 2 weeks Orders: Orders Hemoglobin A1c Today E11.65 - Type 2 diabetes mellitus with hyperglycemia AMB Stool Cards / FIT Kit Given Today Z12.11 - Encounter for screening for malignant neoplasm of colon Complete Blood Count Auto Diff Today E11.22 - Type 2 diabetes mellitus with diabetic chronic kidney disease, E11.65 - Type 2 diabetes mellitus with hyperglycemia, J44.1 - Chronic obstructive pulmonary disease with (acute) exacerbation, N18.30 - Chronic kidney disease, stage 3 unspecified Basic Metabolic Panel Today E11.22 - Type 2 diabetes mellitus with diabetic chronic kidney disease, E11.65 - Type 2 diabetes mellitus with hyperglycemia, J44.1 - Chronic obstructive pulmonary disease with (acute) exacerbation, N18.30 - Chronic kidney disease, stage 3 unspecified IRON PROFILE Today E11.22 - Type 2 diabetes mellitus with diabetic chronic kidney disease, E11.65 - Type 2 diabetes mellitus with hyperglycemia, J44.1 - Chronic obstructive pulmonary disease with (acute) exacerbation, N18.30 - Chronic kidney disease, stage 3 unspecified Medications: New ipratropium-albuterol 0.5 mg-3 mg(2.5 mg base)/3 mL 3 mL inhalation Q8H PRN 180 mL 3RF wheezing Trulicity (dulaglutide) 4.5 mg (0.5 mL) subcut QWEEK 6 mL 3RF NS Changed From citalopram 20 mg PO DAILY 90 tabs 1RF To citalopram 30 mg (1.5 x 20 mg) PO DAILY 135 tabs 1RF Coding Level of Care Code Est Pt Level 4 (38663) Diagnoses CKD stage 3 due to type 2 diabetes mellitus E11.22; N18.30 Acute exacerbation of chronic obstructive pulmonary disease J44.1 Uncontrolled type 2 diabetes mellitus with hyperglycemia E11. Glycemic state: with hyperglycemia Anemia, unspecified type D64.9 Anemia type: unspecified type
[2023-12-29 10:05] VITALS: BP 120/62; PULSE 70; O2SAT 97; BMI 33.8
== END 2023-12-29 11:27 | disposition home or self-care (01) ==
PROVIDERS: PCP Internal Medicine; Visit Provider Internal Medicine
DX: E11.22 Type 2 diabetes mellitus with diabetic chronic kidney disease (principal); N18.30 Chronic kidney disease, stage 3 unspecified; J44.1 Chronic obstructive pulmonary disease with (acute) exacerbation; E11.65 Type 2 diabetes mellitus with hyperglycemia; D64.9 Anemia, unspecified
CPT/HCPCS: 99214

== ENCOUNTER 2023-12-29 10:57 | Outpatient (REF) | payer MEDICARE, SELFPAY ==
[2023-12-29 13:26] LABS: MANUAL DIFF FLAG NO
[2023-12-29 13:50] LABS: Basophils Absolute Auto 0.1 X10*3/uL (0.0-0.2); Eosinophils Absolute Auto 0.6 X10*3/uL (0.0-0.4); Eosinophils Percent Auto 6.1 % (0-4); Hematocrit 34.9 % (37.0-47.0); Hemoglobin 10.4 g/dl (12.0-16.0); Imm Gran Abs Auto 0.02 X10*3/uL (0.00-0.03); Imm Gran Pct Auto 0.2 % (0.0-0.4); Lymphocytes Absolute Auto 1.6 X10*3/uL (1.2-4.9); Lymphocytes Percent Auto 18.1 % (20-40); Mean Corpuscular HGB Conc 29.8 g/dl (31.0-35.0); Mean Corpuscular Hemoglobin 22.6 pg (27.0-33.0); Mean Corpuscular Volume 75.9 fL (80.0-98.0); Mean Platelet Volume 9.7 fL (9.4-12.3); Monocytes Absolute Auto 0.6 X10*3/uL (0.1-1.2); Monocytes Percent Auto 6.6 % (2-11); Neutrophils Absolute Auto 6.1 x10*3/uL (2.0-8.3); Platelet Count 385 X10*3/uL (160-400)
[2023-12-29 14:05] LABS: Anion Gap 14 (12-20); Blood Urea Nitrogen 31 mg/dL (9-16); Calcium 9.3 mg/dL (8.4-10.2); Carbon Dioxide 27 mmol/L (22-29); Chloride 102 mmol/L (96-108); Estimated Glomerular Filt Rate 37; Glucose Random 163 mg/dL (60-115); Iron 30 mcg/dL (30-160); Percent Iron Saturation 9 % (15-50); Potassium 4.6 mmol/L (3.3-5.1); Sodium 138 mmol/L (135-145); Total Iron Binding Capacity 335 mcg/dL (228-428); Unsaturated Iron Binding 305 ug/dL
[2023-12-29 14:06] LABS: Estimated Average Glucose 180 mg/dL; Hemoglobin A1c % 7.9 % (<6.0)
== END 2023-12-29 10:58 | disposition home or self-care (01) ==
LOC: HO.HMGCLDS 10:57
PROVIDERS: PCP Internal Medicine; Visit Provider Internal Medicine
DX: E11.22 Type 2 diabetes mellitus with diabetic chronic kidney disease (principal); N18.30 Chronic kidney disease, stage 3 unspecified; J44.1 Chronic obstructive pulmonary disease with (acute) exacerbation; E11.65 Type 2 diabetes mellitus with hyperglycemia
CPT/HCPCS: 36415; 80048; 83036; 83540; 85025

== ENCOUNTER 2024-01-04 08:34 | Outpatient (AMB) | payer MEDICARE, SELFPAY ==
[2024-01-04 08:41] VITALS: BP 170/60; PULSE 82; BMI 34.1
--- NOTE | 2024-01-04 08:41 | MHC.OFFVIS ---
Vital Signs 01/04/24 08:41 Height 5 ft 4 in Weight 198 lb 13.711 oz BMI 34.1 BP 170/60 H Blood Pressure Location Lt brachial Position Sitting Pulse 82 Intake Visit Reasons: follow up Underwriting Specialist Required: No Allergies Latex, Natural Rubber Allergy (Severe, Verified 01/04/24 08:43) blisters Sulfa (Sulfonamide Antibiotics) [SULFA (SULFONAMIDE ANTIBIOTICS)] Allergy (Mild, Verified 01/04/24 08:43) ITCHING, rash nystatin Allergy (Unknown, Verified 01/04/24 08:43) rash isosorbide [From Imdur] Adverse Reaction (Unknown, Verified 01/04/24 08:43) HEADACHES, headache tizanidine Adverse Reaction (Unknown, Verified 01/04/24 08:43) weakness, Hellucination Medication List - Last Reconciled 01/04/24 by JACQUES Yang acetaminophen 650 mg (2 x 325 mg) PO Q6H PRN albuterol sulfate 90 mcg/actuation (ProAir HFA) 2 puffs inhalation Q4H PRN apixaban (Eliquis) 5 mg PO BID atorvastatin 80 mg PO BEDTIME blood sugar diagnostic (FreeStyle Lite Strips) test blood sugar once a day budesonide-formoterol 160-4.5 mcg/actuation (Symbicort) 1 puff inhalation BID buspirone 5 mg PO BID cholecalciferol (vitamin D3) 25 mcg PO DAILY citalopram 30 mg (1.5 x 20 mg) PO DAILY clopidogrel 75 mg PO DAILY diltiazem HCl ER 300 mg PO DAILY docusate sodium 100 mg PO BID PRN empagliflozin (Jardiance) 25 mg PO DAILY famotidine (Pepcid) 40 mg PO BEDTIME flash glucose sensor (FreeStyle Kelly 2 Sensor kit) As directed every 2 weeks furosemide 20 mg PO DAILY insulin glargine (Lantus Solostar U-100 Insulin) 25 units (0.25 mL) subcut BEDTIME insulin lispro (Humalog KwikPen (U-100) Insulin) 1 sliding scale dose subcut USEASDIRECTD insulin lispro (Humalog KwikPen (U-100) Insulin) 1 sliding scale dose subcut USEASDIRECTD ipratropium-albuterol 0.5 mg-3 mg(2.5 mg base)/3 mL 3 mL inhalation BID PRN ipratropium-albuterol 0.5 mg-3 mg(2.5 mg base)/3 mL 3 mL inhalation Q8H PRN lisinopril 10 mg PO DAILY loratadine 10 mg PO DAILY PRN metoprolol tartrate 50 mg PO BID montelukast 10 mg PO BEDTIME pantoprazole 40 mg PO BID Trulicity (dulaglutide) 4.5 mg (0.5 mL) subcut QWEEK NS walker As directed HPI HPI follow up: Details: Saima is a 73-year-old female with past medical history of obesity, hypertension, hyperlipidemia, diabetes, prior smoking, obstructive sleep apnea, not using CPAP, nonobstructive RCA stenosis seen on cardiac catheterization 2006. She was recently admitted to [facility] with epigastric pain without clear findings. She now presents for follow-up. Her last prior visit to cardiology was 09/30/2021. Today she reports that she continues to have intermittent upper abdominal and epigastric discomfort. Her symptom is not bothering her. He has known clear triggers for this. It is not a new finding for her. She denies any chest area discomfort. No discomfort brought on by exertional activities. She has shortness of breath with physical activity which is not new. No PND, orthopnea or edema. No heart palpitations, lightheadedness, presyncope, syncope, falls. She does walk for exercise but is only able to go short distances. Taking meds as directed. Grandson is present. 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 Father No problems noted. Brother Substance use disorder Brother Substance use disorder Social History Household Members: Children Household Members Other:: 2 Housing: House Do you presently have visiting nurse or other home services: Yes ([facility]NA every 2 wks.) Alcohol intake: former Patient Tobacco Use Status: Former Tobacco user Quit Date: 1993 Tobacco use type: Cigarette Cigarettes Per Day: 10 Years Smoked: 3 e-Cigarette/Vaping Use: Never Used Second Hand Smoke Exposure: No Advance Directives Date on File: 06/29/23 service: No Current occupational status: retired Cognitive needs: No Hearing needs: No Vision needs: No Review of Systems Const All systems reviewed & are unremarkable except as noted in HPI and below Reports daytime sleepiness and Reports fatigue ENT Denies dizziness Card Denies chest pain, Denies chest pain at rest, Denies chest pain with activity, Denies rapid heart rate, Denies pedal edema, Denies edema, Denies leg edema, Denies lightheadedness, Denies palpitations, Reports dyspnea, Reports dyspnea on exertion and Denies orthopnea Resp Denies cough, Reports dyspnea and Reports dyspnea on exertion GI Denies hematochezia and Denies change in stool character Musc Denies abnormal gait, Denies limited range of motion, Denies muscle cramps, Denies muscle weakness, Denies numbness, Denies radiating pain into limb, Denies stiffness and Denies tingling Neuro Denies abnormal gait, Denies dizziness, Denies numbness and Denies tingling Endo Reports fatigue and Denies palpitations Physical Exam Vital Signs: Last Vital Signs Pulse 82 01/04/24 08:41 BP 170/60 H 01/04/24 08:41 BMI result Body Mass Index 34.1 Const General: cooperative, healthy appearing, comfortable and no acute distress Orientation/consciousness: patient oriented x3 Neck Neck: Yes normal visual inspection and Yes no JVD Resp Effort & Inspection: normal respiratory effort Auscultation: clear to auscultation bilaterally, no crackles, no rales, no rhonchi and no wheezes Cardio Jugular venous distension: no JVD Rate: regular rate Rhythm: regular rhythm Heart sounds: S1 normal heart sound present, S2 normal heart sound present, Murmur heart sound present (faint systolic) and no rubs Neuro General: patient oriented x3 Extrem General: Yes normal to inspection and No no pedal edema Psych Appearance: grossly normal Mental Status: mental status grossly normal Speech and movement: Normal speech and movement present Assessment & Plan Assessment & Plan (1) Shortness of breath: Code(s): R06.02 - Shortness of breath Category: Medical Plan: History of COPD with shortness of breath during activity. No PND, orthopnea or edema. She has not had any significant P elevations or known heart failure admissions. Last echocardiogram done 11/29/2023 showing EF greater than 70%, severe increase in the LV wall thickness, no evidence of regional wall motion abnormality, abnormal diastolic function, left atrium moderately dilated, mild aortic stenosis. She has been taking low-dose diuretic without recent changes. On exam she does not appear fluid overloaded. She follows with Dr. Bernard for pulmonology. She does have a known history of sleep apnea but tells me she is not able to wear her CPAP mask. She describes that it has hydration with it and she finds this uncomfortable. So currently her sleep apnea is not being treated. Will send message to pulmonology regarding ALYSIA treatment. Signs and symptoms of heart failure reviewed with her. (2) CAD (coronary artery disease): Comment: s/p ARMANI to LCX 06/28 Code(s): I25.10 - Atherosclerotic heart disease of mentasta coronary artery without angina pectoris Category: Medical Qualifiers: Associated angina: with unspecified form of angina Coronary Disease-Associated Artery/Lesion type: mentasta artery [place] vs. transplanted heart: mentasta heart Qualified Code(s): I25.119 - Atherosclerotic heart disease of mentasta coronary artery with unspecified angina pectoris Plan: History of CAD. Prior cardiac catheterization 2006 showing 60% RCA stenosis. She did have NSTEMI admission 06/2023 with cardiac catheterization showing significant mid left circumflex stenosis, ARMANI was placed. She denies having any chest discomfort since that time. She continues to have shortness of breath with activity. Recent [facility] admission for epigastric discomfort. She ruled out for ACS. At this time she will continue on med management for stable CAD. She has not on aspirin as she is on Eliquis. She is on Plavix uninterrupted for at least 1 year post stent, until 06/29/2024. She is on high-dose atorvastatin with ideal LDL goal less than 70. She is on diltiazem and metoprolol. Signs and symptoms of angina reviewed with her. Cardiology follow-up 6 months, sooner if needed. Emergency care if ever needed for symptoms. (3) Murmur: Code(s): R01.1 - Cardiac murmur, unspecified Category: Medical Plan: Faint systolic heart murmur noted on examination. Echo in 2018 does show mild calcification of the aortic valve with no stenosis. Echocardiogram done 11/29/2023 showed mild aortic valve stenosis. Diagnosis of reviewed with her. Progressive nature of stenosis discussed. Will continue to follow with periodic echoes. (4) Abdominal pain: Code(s): R10.9 - Unspecified abdominal pain Category: Medical Qualifiers: Abdominal location: upper abdomen, unspecified Qualified Code(s): R10.10 - Upper abdominal pain, unspecified Plan: Recent [facility] admission for this symptom. She has been followed by GI and PCP. No evidence this is a cardiac finding. (5) Hypertension: Code(s): I10 - Essential (primary) hypertension Category: Medical Qualifiers: Hypertension type: primary hypertension Qualified Code(s): I10 - Essential (primary) hypertension Plan: History of hypertension. Blood pressure is elevated today. She tells me she did take her medications prior to this visit. Blood pressure check after sitting for 15 minutes 162/62. Her last echo shows severe LVH. Need for good blood pressure control reviewed with her. Will have her increase lisinopril up to 20 mg daily. Will change her metoprolol over to carvedilol 6.25 mg b.i.d.. Will check BMP in 1 week. Cardiology follow-up 1 month, sooner if needed. Low-salt diet reviewed. Benefit of sleep apnea treatment reviewed as well. (6) Dyslipidemia: Code(s): E78.5 - Hyperlipidemia, unspecified Category: Medical Plan: [place] LDL goal less than 70 and patient with diabetes. Labs done 08/14/2023 showed LDL 108. Lipids added to upcoming lab work- lab orders entered by PCP. Continue atorvastatin. May need Zetia added (7) Diabetes type 2, uncontrolled: Code(s): E11.65 - Type 2 diabetes mellitus with hyperglycemia Category: Medical Qualifiers: Glycemic state: with hyperglycemia Qualified Code(s): E11.65 - Type 2 diabetes mellitus with hyperglycemia Plan: Hemoglobin A1c goal less than 7. Labs done 12/29/2023 showed hemoglobin A1c 7.9. Followed by her PCP (8) Obstructive sleep apnea: Comment: SHE HAS CHRONIC OBSTRUCTIVE SLEEP APNEA/HYPOVENTILATION SYNDROME. Code(s): G47.33 - Obstructive sleep apnea (adult) (pediatric) Category: Medical Plan: History of obstructive sleep apnea. Tells me she has not been wearing a mask for a long time. Message sent to her ear pull machine operator. Plan Time spent on chart review, documentation, interview and assessment Medications: New lisinopril Dose increased 20 mg PO DAILY 90 tabs 1RF carvedilol must administer with a meal/food Stop metoprolol, start carvedilol 6.25 mg PO BID 60 tabs 3RF Coding Level of Care Code Est Pt Level 4 (24963) Diagnoses Shortness of breath R06.02 Coronary artery disease involving mentasta coronary artery of mentasta heart with angina pectoris I25.119 Associated angina: with unspecified form of angina Coronary Disease-Associated Artery/Lesion type: mentasta artery [place] vs. transplanted heart: mentasta heart Murmur R01.1 Pain of upper abdomen R10.10 Abdominal location: upper abdomen, unspecified Primary hypertension I10 Hypertension type: primary hypertension Dyslipidemia E78.5 Uncontrolled type 2 diabetes mellitus with hyperglycemia E11.65 Glycemic state: with hyperglycemia Obstructive sleep apnea G47.33 Time Spent (min) 28
== END 2024-01-04 09:16 | disposition home or self-care (01) ==
PROVIDERS: PCP Internal Medicine; Visit Provider Nurse Practitioner Family
DX: R06.02 Shortness of breath (principal); I25.119 Atherosclerotic heart disease of native coronary artery with unspecified angina pectoris; R01.1 Cardiac murmur, unspecified; R10.10 Upper abdominal pain, unspecified; I10 Essential (primary) hypertension; E78.5 Hyperlipidemia, unspecified; E11.65 Type 2 diabetes mellitus with hyperglycemia; G47.33 Obstructive sleep apnea (adult) (pediatric)
CPT/HCPCS: 99214

== ENCOUNTER → 2024-01-04 08:34 | Outpatient (BNVA) | payer MEDICARE, SELFPAY | PROVIDERS: PCP Internal Medicine; Visit Provider Nurse Practitioner Family | DX: R06.02 Shortness of breath (principal); I25.119 Atherosclerotic heart disease of native coronary artery with unspecified angina pectoris; R01.1 Cardiac murmur, unspecified; I10 Essential (primary) hypertension; R10.10 Upper abdominal pain, unspecified; E78.5 Hyperlipidemia, unspecified; E11.65 Type 2 diabetes mellitus with hyperglycemia; G47.33 Obstructive sleep apnea (adult) (pediatric) | CPT/HCPCS: 99212 ==

== ENCOUNTER → 2024-01-06 07:38 | Outpatient (REF) | payer MEDICARE, SELFPAY ==
--- NOTE | ~2024-01-06 | NM_ITS ---
Lexiscan Myocardial perfusion study Indication: Angina, assess for ischemia Technique: The patient was brought in for a Lexiscan perfusion study on 01/06/2024 and was injected 0.4 mg of Lexiscan intravenously. Within a minute of this injection 30 mCi of sestamibi was given intravenously. Images were obtained using the SPECT gamma camera interlaced with the gating device. Images were obtained in supine position. Resting perfusion study was performed on 01/07/2024. Patient was administered 30 mCi of sestamibi intravenously at rest. Images were then obtained in supine position. Images were processed with the software and compared side to side in short axis, horizontal long axis and vertical long axis views. Total DLP 112mGy-cm. Findings: Raw acquisition reviewed. The stress perfusion study showed diminished tracer uptake along the inferior wall. Possibly slight improvement with CT attenuation correction. The gated study shows normal LV systolic function with calculated LVEF of 57%. LV cavity is normal in size. The gated study shows normal wall thickening and contraction of segments. Resting study shows no significant perfusion abnormality. Gating at rest reveals normal wall motion with ejection fraction at 59%. The findings are consistent with reversible inferior/inferolateral wall perfusion defect. NM/NM cardiolite stress test Impression: 1. Myocardial perfusion imaging study shows [id number] ischemia along the inferior/inferolateral wall. 2. Gated LVEF is 57% during stress and 59% during rest. 3. Transient ischemic dilatation not present. EKG component of the test reported separately.
--- NOTE | 2024-01-06 07:42 | CA_ITS ---
Acquisition Time: 2024-01-06 07:51:14 Total Exercise Time: 00:02:00 Test Indications: Chest Pain AFIB Medications: SEE H Protocol: LEXISCAN Max HR: 094 BPM 64% of Pred: 145 BPM Max BP: 150/054 mmHG Max Work Load: 1.0 METS Pharmacological stress test with Lexiscan injection while sitting and kicking her legs, without anginal symptoms, without arrhythmais, with normotenisve reposnse to injection, with nondiagnositic EKGs. Nuclear images pending. Test reviewed with Dr. Leblanc. Referred By: Amanda Leiva Overread By: Dannielle Perez
== END ==
LOC: HO.CARD 07:38
PROVIDERS: PCP Internal Medicine; Visit Provider Internal Medicine
DX: I20.89 Other forms of angina pectoris (principal); E11.22 Type 2 diabetes mellitus with diabetic chronic kidney disease; N18.30 Chronic kidney disease, stage 3 unspecified; E11.65 Type 2 diabetes mellitus with hyperglycemia
CPT/HCPCS: 78452; 93017; A9500; J0280; J2785

== ENCOUNTER → 2024-01-06 07:42 | Outpatient (BNV) | payer MEDICARE, SELFPAY | PROVIDERS: PCP Internal Medicine; Visit Provider Nurse Practitioner | DX: I20.9 Angina pectoris, unspecified (principal) | CPT/HCPCS: 78452; 93016; 93018 ==

== ENCOUNTER 2024-01-11 14:08 | Outpatient (AMB) | payer MEDICARE, SELFPAY ==
[2024-01-11 14:14] VITALS: BP 140/44; PULSE 99; O2SAT 96; BMI 34.4
--- NOTE | 2024-01-11 14:14 | MHC.OFFVIS ---
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 It's been a while. 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: No Allergies Latex, Natural Rubber Allergy (Severe, Verified 01/11/24 14:21) blisters Sulfa (Sulfonamide Antibiotics) [SULFA (SULFONAMIDE ANTIBIOTICS)] Allergy (Mild, Verified 01/11/24 14:21) ITCHING, rash nystatin Allergy (Unknown, Verified 01/11/24 14:21) rash isosorbide [From Imdur] Adverse Reaction (Unknown, Verified 01/11/24 14:21) HEADACHES, headache tizanidine Adverse Reaction (Unknown, Verified 01/11/24 14:21) weakness, Hellucination Medication List - Last Reconciled 01/11/24 by Bart Bernard MD acetaminophen 650 mg (2 x 325 mg) PO Q6H PRN albuterol sulfate 90 mcg/actuation (ProAir HFA) 2 puffs inhalation Q4H PRN apixaban (Eliquis) 5 mg PO BID atorvastatin 80 mg PO BEDTIME blood sugar diagnostic (FreeStyle Lite Strips) test blood sugar once a day budesonide-formoterol 160-4.5 mcg/actuation (Symbicort) 1 puff inhalation BID buspirone 5 mg PO BID carvedilol 6.25 mg PO BID cholecalciferol (vitamin D3) 25 mcg PO DAILY citalopram 30 mg (1.5 x 20 mg) PO DAILY clopidogrel 75 mg PO DAILY diltiazem HCl ER 300 mg PO DAILY docusate sodium 100 mg PO BID PRN empagliflozin (Jardiance) 25 mg PO DAILY famotidine (Pepcid) 40 mg PO BEDTIME flash glucose sensor (FreeStyle Kelly 2 Sensor kit) As directed every 2 weeks furosemide 20 mg PO DAILY insulin glargine (Lantus Solostar U-100 Insulin) 25 units (0.25 mL) subcut BEDTIME insulin lispro (Humalog KwikPen (U-100) Insulin) 1 sliding scale dose subcut USEASDIRECTD insulin lispro (Humalog KwikPen (U-100) Insulin) 1 sliding scale dose subcut USEASDIRECTD ipratropium-albuterol 0.5 mg-3 mg(2.5 mg base)/3 mL 3 mL inhalation BID PRN ipratropium-albuterol 0.5 mg-3 mg(2.5 mg base)/3 mL 3 mL inhalation Q8H PRN lisinopril 20 mg PO DAILY loratadine 10 mg PO DAILY PRN montelukast 10 mg PO BEDTIME pantoprazole 40 mg PO BID Trulicity (dulaglutide) 4.5 mg (0.5 mL) subcut QWEEK NS walker As directed Do you need a note to return to daycare/school/sports/work: No HPI HPI COPD: Details: This 73 years old female, is here for pulmonary follow-up. A few months ago she was admitted at [facility], with acute exacerbation of COPD and also mainly with cardiac issues. Recently admitted to [facility] with an acute exacerbation of COPD. Her last visit here in the office the was in 2020 and after that she did not come for follow-up. This 73 years old female has a longstanding history of the obstructive sleep apnea, and chronic pulmonary disease. She had a prolonged intubation during a hospitalization and resulted in tracheomalacia. Patient has had tracheo plasty at [facility] and [facility] more than 10 years ago Her follow-up visits over there have describes that the tracheomalacia is under good control. She does have COPD and has been using Symbicort 160-4.5 2 puffs b.i.d. but only as needed. She also has nebulizer at home with DuoNeb solution which she uses only as needed for acute respiratory distress. For her MIXED SLEEP APNEA DIAGNOSED MORE THAN 10 YEARS AGO, she has been using CPAP all along. However for the past year or so she stopped using it because she was uncomfortable with the addition of water. Now that she was in the hospital she was started on the CPAP without use of humidity and she did tolerated well. She has a CPAP device at home but has not been using. In addition to obstructive and central sleep apnea she also has history of hypoventilation syndrome, and it was treated well with the CPAP. When she did use the CPAP she was using fullface mask which she likes. She has not required to use oxygen This patient has past history of smoking. In year 2013 she had left upper lobectomy for carcinoma of the lung. She has not smoked since then and there has been no recurrence. 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 Father No problems noted. Brother Substance use disorder Brother Substance use disorder Social History Household Members: Children Household Members Other:: 2 Housing: House Do you presently have visiting nurse or other home services: Yes ([facility]NA every 2 wks.) Alcohol intake: former Patient Tobacco Use Status: Former Tobacco user Quit Date: 1993 Tobacco use type: Cigarette Cigarettes Per Day: 10 Years Smoked: 3 e-Cigarette/Vaping Use: Never Used Second Hand Smoke Exposure: No Advance Directives Date on File: 06/29/23 service: No Current occupational status: retired Cognitive needs: No Hearing needs: No Vision needs: No Review of Systems Const All systems reviewed & are unremarkable except as noted in HPI and below ENT Reports nasal congestion (off and on . ) Card Denies chest pain, Denies irregular heart rhythm, Denies leg edema and Reports dyspnea on exertion Resp Reports cough (mild off and on ), Reports dyspnea on exertion and Denies wheezing GI Denies no additional complaints Musc Reports no additional complaints Neuro Reports no additional complaints Psych Reports no additional complaints Aller/Immun Denies wheezing Physical Exam Vital Signs: Last Vital Signs Pulse 99 01/11/24 14:14 BP 140/44 H 01/11/24 14:14 Pulse Ox 96 01/11/24 14:14 Oxygen Delivery Method Room Air 01/11/24 14:14 BMI result Body Mass Index 34.4 Const General: healthy appearing, comfortable, no acute distress, alert and awake Orientation/consciousness: patient oriented x3 HEENT Head: Yes normal to inspection General nose exam: No nasal polyps present and No nasal discharge present Face and sinus: Yes sinuses nontender Mouth: oropharynx normal Throat: Yes posterior oropharynx normal Eyes General: appearance normal, both eyes and all related structures Neck Neck: Yes normal visual inspection, Yes no lymphadenopathy, Yes trachea midline and Yes no JVD Thyroid: Thyroid normal Chest Chest palpation & inspection: normal inspection of the chest, normal palpation of entire chest wall and no tenderness Resp Other: Percussion note is resonant, breath sounds are distant but equal on both sides. No audible wheezes or crepitations. Cardio Palpation: normal PMI Rate: regular rate Rhythm: regular rhythm Heart sounds: no gallops and no murmurs GI Inspection: Yes other (There is ventral herniation in the upper part of the abdomen) Palpation (GI): Soft to palpation, nontender, No hepatosplenomegaly present and no masses Auscultation: normal bowel sounds Back/Spine/Pelvis Thoracic/Lumbar Spine: thoracic and lumbar spine normal to inspection Skin General skin exam: no rashes or lesions noted Neuro General: patient oriented x3 and no focal motor deficits Cranial nerves: Yes CN's II-XII intact bilaterally Extrem General: Yes normal to inspection, Yes no clubbing, cyanosis or edema and Yes no calf tenderness Psych Appearance: grossly normal and well kempt Speech and movement: Normal speech and movement present Assessment & Plan Assessment & Plan (1) Asthma with COPD: Comment: PATIENT HAS LONGSTANDING HISTORY OF BRONCHIAL ASTHMA/COPD. AFTER PROLONGED INTUBATION SHE HAD DEVELOPED TRACHEOMALACIA IN 2009 . SHE UNDERWENT TRACHEO PLASTY AT [facility] AND [facility] , LOST FOLLOW-UP OVER THERE WAS IN 2021 INCLUDING A BRONCHOSCOPY AND THERE WAS NO EVIDENCE OF TRACHEOMALACIA. HER MAINTENANCE MEDICAL REGIMEN INCLUDES SYMBICORT 160-4.52 PUFFS B.I.D., WHICH SHE HAS NOT BEEN USING REGULARLY. SHE ALSO HAS NEBULIZER WITH DUONEB SOLUTION, TO BE USED P.R.N.. Code(s): J44.89 - Other specified chronic obstructive pulmonary disease Category: Medical Plan: SYMBICORT 160-4.52 PUFFS B.I.D. USE IT REGULARLY. IPRATROPIUM-ALBUTEROL SOLUTION IN THE NEBULIZER Q 6 HOURS P.R.N. FOR ACUTE DISTRESS. (2) Obstructive sleep apnea: Comment: SHE HAS CHRONIC OBSTRUCTIVE SLEEP APNEA/HYPOVENTILATION SYNDROME. She used to be on CPAP therapy. But has not use the CPAP since 2020. Recently admitted to [facility] with an acute exacerbation of COPD. She was treated with the CPAP and she tolerated it well Code(s): G47.33 - Obstructive sleep apnea (adult) (pediatric) Category: Medical Plan: Patient needs to be restarted on CPAP therapy. I will order CPAP OF 10 CM, FULLFACE MASK, AND USE IT EVERY NIGHT AT LEAST FOR 6-7 HOURS PER NIGHT. PATIENT DID NOT TOLERATE THE HIGH HUMIDITY SO WE CAN KEEP THE HUMIDITY LEVEL TO THE LOWEST POSSIBLE, OR SHE MAY USE IT EVEN WITHOUT ADDING DISTILLED WATER. ORDER. FOR SUPPLIES IS BEING SENT Medications: Changed From budesonide-formoterol 160-4.5 mcg/actuation (Symbicort) 1 puff inhalation BID To budesonide-formoterol 160-4.5 mcg/actuation (Symbicort) 2 puffs inhalation BID 30 days 10.2 grams 4RF Coding Level of Care Code Est Pt Level 4 (16120) Diagnoses Asthma with COPD J44.89 Obstructive sleep apnea G47.33
== END 2024-01-11 14:45 | disposition home or self-care (01) ==
PROVIDERS: PCP Internal Medicine; Visit Provider Internal Medicine
DX: J44.89 Other specified chronic obstructive pulmonary disease (principal); G47.33 Obstructive sleep apnea (adult) (pediatric)
CPT/HCPCS: 99214

== ENCOUNTER → 2024-01-11 14:08 | Outpatient (BNVA) | payer MEDICARE, SELFPAY | PROVIDERS: PCP Internal Medicine; Visit Provider Internal Medicine | DX: J44.9 Chronic obstructive pulmonary disease, unspecified (principal); G47.33 Obstructive sleep apnea (adult) (pediatric) | CPT/HCPCS: 99212 ==

== ENCOUNTER 2024-01-28 13:49 | Emergency (ER) | payer MEDICARE, SELFPAY ==
--- NOTE | ~2024-01-28 | XR_ITS ---
EXAMINATION: XR CHEST CLINICAL INFORMATION: Wheezing and low blood pressure. COMPARISON: December 16, 2023 and multiple older studies. TECHNIQUE: 2 views of the chest were obtained. FINDINGS: Patient is status post previous left lung surgery with chronic pleural-parenchymal change. There is also noted to be some scarring within the right mid and lower lung. No definite new acute parenchymal disease is appreciated. No pneumothorax or pleural effusion. Heart normal size. No evidence of pulmonary edema. Status post prior cervical spine surgery. There is calcific tendinitis of the right shoulder. XR/XR chest 2V IMPRESSION: Chronic lung changes as described above with no definite new region of acute disease appreciated.
--- NOTE | 2024-01-28 14:09 | ED.GENADULT ---
HPI - General Adult General Chief complaint: General Medical Stated complaint: BP low Related Data Home Medications ?Medication ?Instructions ?Recorded ?Confirmed albuterol sulfate 90 mcg/actuation 2 puff inhalation Q4H PRN 06/25/23 01/11/24 aerosol inhaler (ProAir HFA) Shortness Of Breath cholecalciferol (vitamin D3) 25 25 mcg PO DAILY 08/11/23 01/11/24 mcg (1,000 unit) tablet ipratropium 0.5 mg-albuterol 3 mg 3 ml inhalation BID PRN sob 08/11/23 01/11/24 (2.5 mg base)/3 mL nebulization soln loratadine 10 mg tablet 10 mg PO DAILY PRN Allergy Symptoms 08/11/23 01/11/24 atorvastatin 80 mg tablet 80 mg PO BEDTIME 11/28/23 01/11/24 buspirone 5 mg tablet 5 mg PO BID 11/28/23 01/11/24 furosemide 20 mg tablet 20 mg PO DAILY 11/28/23 01/11/24 montelukast 10 mg tablet 10 mg PO BEDTIME 11/28/23 01/11/24 pantoprazole 40 mg tablet,delayed 40 mg PO BID 11/28/23 01/11/24 release insulin lispro 100 unit/mL 1 sliding scale dose subcut 12/02/23 01/11/24 subcutaneous pen (Humalog KwikPen USEASDIRECTD (U-100) Insulin) Previous Rx's ?Medication ?Instructions ?Recorded walker #1 ea 02/28/23 blood sugar diagnostic (FreeStyle #100 ea 03/26/23 Lite Strips) flash glucose sensor (FreeStyle #6 ea 05/14/23 Kelly 2 Sensor kit) acetaminophen 325 mg tablet 650 mg (2 x 325 mg) PO Q6H PRN 08/22/23 pain #30 tabs docusate sodium 100 mg capsule 100 mg PO BID PRN Constipation #30 08/22/23 caps clopidogrel 75 mg tablet 75 mg PO DAILY #90 tabs 08/27/23 empagliflozin 25 mg tablet 25 mg PO DAILY #90 tabs 09/21/23 (Jardiance) apixaban 5 mg tablet (Eliquis) 5 mg PO BID #180 tabs 09/27/23 insulin glargine 100 unit/mL (3 25 unit (0.25 mL) subcut BEDTIME 12/02/23 mL) subcutaneous pen (Lantus #15 mL Solostar U-100 Insulin) insulin lispro 100 unit/mL 1 sliding scale dose subcut 12/02/23 subcutaneous pen (Humalog KwikPen USEASDIRECTD #15 mL (U-100) Insulin) famotidine 40 mg tablet (Pepcid) 40 mg PO BEDTIME #30 tabs 12/13/23 diltiazem HCl 300 mg capsule,24 300 mg PO DAILY #90 caps 12/22/23 hr,extended release Trulicity 4.5 mg/0.5 mL 4.5 mg (0.5 mL) subcut QWEEK #6 mL 12/29/23 subcutaneous pen injector (dulaglutide) citalopram 20 mg tablet 30 mg (1.5 x 20 mg) PO DAILY #135 12/29/23 tabs ipratropium 0.5 mg-albuterol 3 mg 3 ml inhalation Q8H PRN wheezing 12/29/23 (2.5 mg base)/3 mL nebulization #180 mL soln carvedilol 6.25 mg tablet 6.25 mg PO BID #60 tabs 01/04/24 lisinopril 20 mg tablet 20 mg PO DAILY #90 tabs 01/04/24 budesonide-formoterol HFA 160 2 puff inhalation BID 30 days 01/11/24 mcg-4.5 mcg/actuation aerosol #10.2 grams inhaler (Symbicort) Allergies Allergy/AdvReac Type Severity Reaction Status Date / Time Latex, Natural Rubber Allergy Severe blisters Verified 01/28/24 14:13 Sulfa (Sulfonamide Allergy Mild ITCHING, Verified 01/28/24 14:13 Antibiotics) rash [SULFA (SULFONAMIDE ANTIBIOTICS)] nystatin Allergy Unknown rash Verified 01/28/24 14:13 isosorbide [From Imdur] AdvReac Unknown HEADACHES, Verified 01/28/24 14:13 headache tizanidine AdvReac Unknown weakness, Verified 01/28/24 14:13 Hellucination [facility] Past Medical History Medical History (Updated 01/31/24 @ 20:22 by DEV Nicole) Obstructive sleep apnea Asthma with COPD Anemia CKD stage 3 due to type 2 diabetes mellitus Diabetes type 2, uncontrolled Tracheomalacia, acquired History of pulmonary embolism AG (acute kidney injury) CAD (coronary artery disease) Non-ST elevation [place] (NSTEMI) Paroxysmal atrial fibrillation Pulmonary embolism Obesity Dyslipidemia Hypertension 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 Father No problems noted. Brother Substance use disorder Brother Substance use disorder Social History Social History Household Members: Children Household Members Other:: 2 Housing: House Do you presently have visiting nurse or other home services: Yes (VNA every 2 wks.) Alcohol intake: former Patient Tobacco Use Status: Former Tobacco user Quit Date: 1993 Tobacco use type: Cigarette Cigarettes Per Day: 10 Years Smoked: 3 e-Cigarette/Vaping Use: Never Used Second Hand Smoke Exposure: No Advance Directives: Yes Advance Directives on File: Yes Advance Directives Date on File: 06/29/23 service: No Current occupational status: retired Cognitive needs: No Hearing needs: No Vision needs: No Physical Exam ED Vital Signs: BMI result Body Mass Index 34.2 Course Course Course Narrative: This is an RME: Additional HPI, ROS, PE not included below will be deferred to primary provider. RME assessment and note performed by: Cece Longoria PA-C This is a 47-[id number]-female, with a hx of CKD, diabetes, AG, CAD, NSTEMI, paroxysmal atrial fibrillation on apixaban, who presents to the emergency department with complaints of dizziness and low blood pressure. Patient states that since yesterday she has felt slight dizziness as well as low blood pressure. She is alert and oriented x4, no neurologic deficits on examination. She is speaking full sentences. Blood pressure 145/41. Plan: Labs, EKG Reevaluation(s) Reevaluation #1: Patient left without completing treatment. Medical Decision Making Lab Data 01/28/24 15:48 01/28/24 15:48 Labs: Lab Results 01/28/24 01/28/24 Range/Units 15:48 21:31 WBC 9.0 (4.8-10.8) X10*3/uL RBC 4.44 (4.20-5.50) X10*6/uL Hgb 9.9 L (12.0-16.0) g/dl Hct 32.2 L (37.0-47.0) % MCV 72.5 L (80.0-98.0) fL MCH 22.3 L (27.0-33.0) pg MCHC 30.7 L (31.0-35.0) g/dl RDW 19.5 H (11.0-16.0) % Plt Count 374 (160-400) X10*3/uL MPV 9.6 (9.4-12.3) fL Immature Gran % (Auto) 0.3 (0.0-0.4) % Neut % (Auto) 61.7 (45-73) % Lymph % (Auto) 19.6 L (20-40) % Price % (Auto) 11.5 H (2-11) % Eos % (Auto) 6.2 H (0-4) % Baso % (Auto) 0.7 (0-2) % Lymph # (Auto) 1.8 (1.2-4.9) X10*3/uL Price # (Auto) 1.0 (0.1-1.2) X10*3/uL Eos # (Auto) 0.6 H (0.0-0.4) X10*3/uL Baso # (Auto) 0.1 (0.0-0.2) X10*3/uL Abs Immat Gran (auto) 0.03 (0.00-0.03) X10*3/uL Absolute Neuts (auto) 5.5 (2.0-8.3) x10*3/uL Absolute Nucleated RBC 0.000 (0.0-0.012) X10*3/uL Nucleated RBC % (auto) 0.0 (0.0-0.2) /100WBC PT 15.6 H (11.1-13.3) SEC INR 1.3 H (0.9-1.1) APTT 35.3 (26.0-36.8) SEC Sodium 139 (135-145) mmol/L Potassium 5.0 (3.3-5.1) mmol/L Chloride 103 (96-108) mmol/L Carbon Dioxide 27 (22-29) mmol/L Anion Gap 14 (12-20) BUN 32 H (9-16) mg/dL Creatinine 1.59 H (0.5-1.4) mg/dL Estim Creat Clear Calc 33.2 Estimated GFR 32 POC Glucose 191 H (60-115) mg/dL Random Glucose 149 H (60-115) mg/dL Calcium 9.4 (8.4-10.2) mg/dL Magnesium 2.3 (1.6-2.6) mg/dL Total Bilirubin 0.3 (0.0-1.0) mg/dL Direct Bilirubin 0.1 (0.0-0.5) mg/dL AST 11 (5-31) U/L ALT 10 (0-31) U/L Alkaline Phosphatase 116 (39-117) U/L Troponin I High Sens 3.9 (<3.5-17.0) ng/L Total Protein 7.4 (6.5-8.0) g/dL Albumin 4.0 (3.5-5.0) g/dL Lipase 27 (8-78) U/L Discharge Plan Discharge Clinical Impression: Dizziness Patient Disposition: Left W/O Completing Treatment Prescriptions: No Action (DME) FreeStyle Lite Strips Strip See Rx Instructions .Route Qty: 100 3RF Rx Instructions: test blood sugar once a day (DME) FreeStyle Kelly 2 Sensor Kit See Rx Instructions .ROUTE .MEDSUPPLY Qty: 6 3RF Rx Instructions: As directed every 2 weeks clopidogrel 75 mg tablet 75 mg PO DAILY Qty: 90 1RF Jardiance 25 mg tablet 25 mg PO DAILY Qty: 90 1RF diltiazem HCl 300 mg capsule,extended release 24 hr 300 mg PO DAILY Qty: 90 1RF (DME) belgica Caldera See Rx Instructions .Route Qty: 1 0RF Rx Instructions: As directed ipratropium-albuterol 0.5 mg-3 mg(2.5 mg base)/3 mL solution for nebulization 3 ml inhalation BID PRN (Reason: sob) loratadine 10 mg Tablet 10 mg PO DAILY PRN (Reason: Allergy Symptoms) cholecalciferol (vitamin D3) 25 mcg (1,000 unit) Tablet 25 mcg PO DAILY docusate sodium 100 mg Capsule 100 mg PO BID PRN (Reason: Constipation) Qty: 30 0RF acetaminophen 325 mg Tablet 650 mg PO Q6H PRN (Reason: pain) Qty: 30 0RF albuterol sulfate [ProAir HFA] 90 mcg/actuation Hfa Aerosol Inhaler 2 puff INHALATION Q4H PRN (Reason: Shortness Of Breath) Hold Instructions: Resume on 06/29/23. pantoprazole 40 mg tablet,delayed release (DR/EC) 40 mg PO BID buspirone 5 mg tablet 5 mg PO BID furosemide 20 mg tablet 20 mg PO DAILY montelukast 10 mg tablet 10 mg PO BEDTIME atorvastatin 80 mg tablet 80 mg PO BEDTIME insulin lispro [Humalog KwikPen Insulin] 100 unit/mL insulin pen 1 sliding scale dose subcut USEASDIRECTD Qty: 15 0RF Rx Instructions: BG <111 0 units, 111-150 - 0 units, 151-200 2 units, 201-250 4 units, 251-300 6 units, 301-350 8 units, >350 10 units insulin glargine [Lantus Solostar U-100 Insulin] 100 unit/mL (3 mL) insulin pen 25 unit subcut BEDTIME Qty: 15 0RF insulin lispro [Humalog KwikPen Insulin] 100 unit/mL Insulin Pen 1 sliding scale dose SUBCUT USEASDIRECTD Patient Comments: ADDED PER DR. ORTIZ Rx Instructions: BG <111 0 units, 111-150 - 0 units, 151-200 2 units, 201-250 4 units, 251-300 6 units, 301-350 8 units, >350 10 units famotidine [Pepcid] 40 mg tablet 40 mg PO BEDTIME Qty: 30 2RF ipratropium-albuterol 0.5 mg-3 mg(2.5 mg base)/3 mL solution for nebulization 3 ml inhalation Q8H PRN (Reason: wheezing) Qty: 180 3RF Trulicity 4.5 mg/0.5 mL pen injector 4.5 mg subcut QWEEK Qty: 6 3RF citalopram 20 mg tablet 30 mg PO DAILY Qty: 135 1RF Eliquis 5 mg tablet 5 mg PO BID Qty: 180 3RF Hold Instructions: Resume on 06/30/23. hold until patient on iv heparin budesonide-formoterol [Symbicort] 160-4.5 mcg/actuation HFA aerosol inhaler 2 puff INHALATION BID 30 Days Qty: 10.2 4RF lisinopril 20 mg tablet 20 mg PO DAILY Qty: 90 1RF Rx Instructions: Dose increased carvedilol 6.25 mg tablet 6.25 mg PO BID Qty: 60 3RF Rx Instructions: must administer with a meal/food Stop metoprolol, start carvedilol Discharge Date/Time: 01/28/24 23:00
[2024-01-28 14:10] VITALS: BP 145/41; PULSE 79; RESP 18; TEMP 36.6; O2SAT 96; BMI 34.2
[2024-01-28 15:53] LABS: MANUAL DIFF FLAG NO
[2024-01-28 15:57] LABS: Basophils Absolute Auto 0.1 X10*3/uL (0.0-0.2); Basophils Percent Auto 0.7 % (0-2); Eosinophils Absolute Auto 0.6 X10*3/uL (0.0-0.4); Eosinophils Percent Auto 6.2 % (0-4); Hematocrit 32.2 % (37.0-47.0); Hemoglobin 9.9 g/dl (12.0-16.0); Imm Gran Abs Auto 0.03 X10*3/uL (0.00-0.03); Imm Gran Pct Auto 0.3 % (0.0-0.4); Lymphocytes Absolute Auto 1.8 X10*3/uL (1.2-4.9); Lymphocytes Percent Auto 19.6 % (20-40); Mean Corpuscular HGB Conc 30.7 g/dl (31.0-35.0); Mean Corpuscular Hemoglobin 22.3 pg (27.0-33.0); Mean Corpuscular Volume 72.5 fL (80.0-98.0); Mean Platelet Volume 9.6 fL (9.4-12.3); Monocytes Percent Auto 11.5 % (2-11); Neutrophils Absolute Auto 5.5 x10*3/uL (2.0-8.3); Neutrophils Percent Auto 61.7 % (45-73); Platelet Count 374 X10*3/uL (160-400); Red Blood Count 4.44 X10*6/uL (4.20-5.50); Red Cell Distribution Width 19.5 % (11.0-16.0)
[2024-01-28 16:01] LABS: INTERNATIONAL NORM RATIO 1.3 (0.9-1.1); Prothrombin Time 15.6 SEC (11.1-13.3)
[2024-01-28 16:04] LABS: Partial Thromboplastin Time 35.3 SEC (26.0-36.8)
[2024-01-28 16:08] LABS: Alanine Aminotransferase 10 U/L (0-31); Alkaline Phosphatase 116 U/L (39-117); Anion Gap 14 (12-20); Aspartate Amino Transferase 11 U/L (5-31); Bilirubin Direct 0.1 mg/dL (0.0-0.5); Bilirubin Total 0.3 mg/dL (0.0-1.0); Blood Urea Nitrogen 32 mg/dL (9-16); Calcium 9.4 mg/dL (8.4-10.2); Carbon Dioxide 27 mmol/L (22-29); Chloride 103 mmol/L (96-108); Creatinine Clr Calc Pharmacy 33.2; Estimated Glomerular Filt Rate 32; Glucose Random 149 mg/dL (60-115); Lipase 27 U/L (8-78); Magnesium 2.3 mg/dL (1.6-2.6); Sodium 139 mmol/L (135-145); Total Protein 7.4 g/dL (6.5-8.0)
[2024-01-28 16:15] LABS: Troponin-I High Sensitivity 3.9 ng/L (<3.5-17.0)
[2024-01-28 21:37] LABS: Glucose, Whole Blood 191 mg/dL (60-115)
--- NOTE | 2024-01-28 21:38 | PC.NURSE ---
POC Glucose 191
== END 2024-01-28 23:00 | disposition left against medical advice (07) ==
PROVIDERS: Physician Assistant Medical; Emergency Provider Emergency Medicine
DX: R42 Dizziness and giddiness (principal); I95.9 Hypotension, unspecified; I12.9 Hypertensive chronic kidney disease with stage 1 through stage 4 chronic kidney disease, or unspecified chronic kidney disease; E11.22 Type 2 diabetes mellitus with diabetic chronic kidney disease; N18.30 Chronic kidney disease, stage 3 unspecified; Z79.4 Long term (current) use of insulin
CPT/HCPCS: 36415; 71046; 80048; 80076; 82947; 83690; 83735; 84484; 85025; 85610; 85730; 99282; 99283

== ENCOUNTER 2024-02-01 14:02 | Outpatient (AMB) | payer MEDICARE, SELFPAY ==
[2024-02-01 14:21] VITALS: BP 122/30; PULSE 84; BMI 33.7
--- NOTE | 2024-02-01 14:21 | MHC.OFFVIS ---
Vital Signs 02/01/24 14:21 02/01/24 14:50 Height 5 ft 4 in Weight 196 lb 3.382 oz BMI 33.7 BP 122/30 L 130/44 L Blood Pressure Location Lt brachial Lt brachial Position Sitting Sitting Pulse 84 Pulse Source Pulse Oximeter Intake Visit Reasons: follow-up with stress results need to be sooner Allergies Latex, Natural Rubber Allergy (Severe, Verified 01/28/24 14:13) blisters Sulfa (Sulfonamide Antibiotics) [SULFA (SULFONAMIDE ANTIBIOTICS)] Allergy (Mild, Verified 01/28/24 14:13) ITCHING, rash nystatin Allergy (Unknown, Verified 01/28/24 14:13) rash isosorbide [From Imdur] Adverse Reaction (Unknown, Verified 01/28/24 14:13) HEADACHES, headache tizanidine Adverse Reaction (Unknown, Verified 01/28/24 14:13) weakness, Hellucination Medication List - Last Reconciled 02/01/24 by Dannielle Perez, MESERET acetaminophen 650 mg (2 x 325 mg) PO Q6H PRN albuterol sulfate 90 mcg/actuation (ProAir HFA) 2 puffs inhalation Q4H PRN apixaban (Eliquis) 5 mg PO BID atorvastatin 80 mg PO BEDTIME blood sugar diagnostic (FreeStyle Lite Strips) test blood sugar once a day budesonide-formoterol 160-4.5 mcg/actuation (Symbicort) 2 puffs inhalation BID 30 days buspirone 5 mg PO BID carvedilol 6.25 mg PO BID cholecalciferol (vitamin D3) 25 mcg PO DAILY citalopram 30 mg (1.5 x 20 mg) PO DAILY clopidogrel 75 mg PO DAILY diltiazem HCl ER 300 mg PO DAILY docusate sodium 100 mg PO BID PRN empagliflozin (Jardiance) 25 mg PO DAILY famotidine (Pepcid) 40 mg PO BEDTIME flash glucose sensor (FreeStyle Kelly 2 Sensor kit) As directed every 2 weeks furosemide 20 mg PO DAILY insulin glargine (Lantus Solostar U-100 Insulin) 25 units (0.25 mL) subcut BEDTIME insulin lispro (Humalog KwikPen (U-100) Insulin) 1 sliding scale dose subcut USEASDIRECTD insulin lispro (Humalog KwikPen (U-100) Insulin) 1 sliding scale dose subcut USEASDIRECTD ipratropium-albuterol 0.5 mg-3 mg(2.5 mg base)/3 mL 3 mL inhalation BID PRN ipratropium-albuterol 0.5 mg-3 mg(2.5 mg base)/3 mL 3 mL inhalation Q8H PRN lisinopril 20 mg PO DAILY loratadine 10 mg PO DAILY PRN montelukast 10 mg PO BEDTIME pantoprazole 40 mg PO BID Trulicity (dulaglutide) 4.5 mg (0.5 mL) subcut QWEEK NS walker As directed HPI Comments Details: 73-year-old female presents today to discuss results and her blood pressure. She reports she has had multiple low pressures and dizziness. She reports her breathing is the same. She states she has been hydrating and eating well She states her right ribs hurt due to a fall today. COUNT INCLUDES THE [facility] Medical History (Updated 02/02/24 @ 08:56 by Dannielle Perez NP) Hypertension Obstructive sleep apnea Asthma with COPD Anemia CKD stage 3 due to type 2 diabetes mellitus Diabetes type 2, uncontrolled Tracheomalacia, acquired History of pulmonary embolism AG (acute kidney injury) CAD (coronary artery disease) Non-ST elevation [place] (NSTEMI) Paroxysmal atrial fibrillation Pulmonary embolism Obesity Dyslipidemia [employer] (current) use of insulin Respiratory failure COPD (chronic obstructive pulmonary disease) Surgical History History of carpal tunnel surgery History of cholecystectomy History of lobectomy of lung Status post tracheoplasty History of cardiac cath Family History Mother No problems noted. Father No problems noted. Brother Substance use disorder Brother Substance use disorder Social History Household Members: Children Household Members Other:: 2 Housing: House Do you presently have visiting nurse or other home services: Yes ([facility] every 2 wks.) Alcohol intake: former Patient Tobacco Use Status: Former Tobacco user Tobacco use type: Cigarette Cigarettes Per Day: 10 Years Smoked: 3 e-Cigarette/Vaping Use: Never Used Second Hand Smoke Exposure: No Advance Directives Date on File: 06/29/23 service: No Current occupational status: retired Cognitive needs: No Hearing needs: No Vision needs: No Review of Systems Const Denies weakness ENT Denies dizziness Card Denies chest pain, Denies chest pain with activity, Denies syncope, Denies rapid heart rate, Denies pedal edema, Denies edema, Denies leg edema, Denies lightheadedness, Denies palpitations, Denies dyspnea, Denies dyspnea on exertion and Denies orthopnea Resp Denies cough, Denies dyspnea and Denies dyspnea on exertion GI Denies hematochezia and Denies change in stool character Musc Denies abnormal gait, Denies muscle cramps, Denies muscle weakness, Denies numbness, Denies radiating pain into limb and Denies tingling Neuro Denies abnormal gait, Denies dizziness, Denies syncope, Denies numbness, Denies tingling and Denies weakness Endo Denies palpitations Physical Exam Vital Signs: Last Vital Signs Pulse 84 02/01/24 14:21 BP 130/44 L 02/01/24 14:50 BMI result Body Mass Index 33.7 Const General: healthy appearing and no acute distress Orientation/consciousness: patient oriented x3 HEENT Head: Yes normal to inspection Eyes General: appearance normal, both eyes and all related structures Neck Neck: Yes normal visual inspection Chest Chest palpation & inspection: normal inspection of the chest Resp Effort & Inspection: normal respiratory effort Auscultation: clear to auscultation bilaterally Cardio Jugular venous distension: no JVD Palpation: normal PMI Rate: regular rate Rhythm: regular rhythm Heart sounds: S1 normal heart sound present, S2 normal heart sound present, no click, no gallops, no murmurs and no rubs GI Inspection: Yes normal to inspection Palpation (GI): Soft to palpation Skin General skin exam: no rashes or lesions noted Neuro General: patient oriented x3 Extrem General: Yes normal to inspection Psych Appearance: grossly normal Assessment & Plan Assessment & Plan (1) Hypertension: Code(s): I10 - Essential (primary) hypertension Category: Medical Qualifiers: Hypertension type: primary hypertension Qualified Code(s): I10 - Essential (primary) hypertension Plan Will plan to follow-up in one week regarding blood pressures. Montior symptoms, log them along with blood pressures. ED care if needed. Coding Level of Care Code Est Pt Level 3 (29912) Diagnoses Primary hypertension I10 Hypertension type: primary hypertension
[2024-02-01 14:50] VITALS: BP 130/44
== END 2024-02-01 15:14 | disposition home or self-care (01) ==
PROVIDERS: PCP Internal Medicine; Visit Provider Nurse Practitioner
DX: I10 Essential (primary) hypertension (principal)
CPT/HCPCS: 99213

== ENCOUNTER → 2024-02-01 14:02 | Outpatient (BNVA) | payer MEDICARE, SELFPAY | PROVIDERS: PCP Internal Medicine; Visit Provider Nurse Practitioner | DX: I10 Essential (primary) hypertension (principal) | CPT/HCPCS: 99212 ==

== ENCOUNTER 2024-02-08 14:19 | Outpatient (REF) | payer MEDICARE, SELFPAY ==
[2024-02-08 16:00] LABS: MANUAL DIFF FLAG NO
[2024-02-08 16:12] LABS: Basophils Absolute Auto 0.1 X10*3/uL (0.0-0.2); Basophils Percent Auto 0.9 % (0-2); Eosinophils Absolute Auto 0.5 X10*3/uL (0.0-0.4); Eosinophils Percent Auto 5.8 % (0-4); Hematocrit 30.9 % (37.0-47.0); Imm Gran Abs Auto 0.04 X10*3/uL (0.00-0.03); Imm Gran Pct Auto 0.4 % (0.0-0.4); Lymphocytes Absolute Auto 1.7 X10*3/uL (1.2-4.9); Lymphocytes Percent Auto 18.1 % (20-40); Mean Corpuscular HGB Conc 29.1 g/dl (31.0-35.0); Mean Corpuscular Hemoglobin 21.5 pg (27.0-33.0); Mean Corpuscular Volume 73.9 fL (80.0-98.0); Mean Platelet Volume 9.9 fL (9.4-12.3); Monocytes Absolute Auto 0.7 X10*3/uL (0.1-1.2); Neutrophils Absolute Auto 6.2 x10*3/uL (2.0-8.3); Neutrophils Percent Auto 66.8 % (45-73); Platelet Count 411 X10*3/uL (160-400); Red Blood Count 4.18 X10*6/uL (4.20-5.50); Red Cell Distribution Width 19.7 % (11.0-16.0); White Blood Count 9.3 X10*3/uL (4.8-10.8)
[2024-02-08 16:46] LABS: Iron 18 mcg/dL (30-160); Percent Iron Saturation 6 % (15-50); Total Iron Binding Capacity 316 mcg/dL (228-428); Unsaturated Iron Binding 298 ug/dL
[2024-02-08 16:47] LABS: Alanine Aminotransferase 11 U/L (0-31); Albumin Level 3.9 g/dL (3.5-5.0); Alkaline Phosphatase 118 U/L (39-117); Aspartate Amino Transferase 12 U/L (5-31); Bilirubin Direct 0.1 mg/dL (0.0-0.5); Bilirubin Total 0.3 mg/dL (0.0-1.0); Gamma Glutamyl Transpeptidase 26 U/L (7-33); Total Protein 7.2 g/dL (6.5-8.0)
[2024-02-12 19:33] LABS: Alk.Phos Iso. Macrohepatic 0 % (<=0); Alk.Phos Isoenzymes Bone 28 % (28-66); Alk.Phos Isoenzymes Intest 7 % (1-24); Alk.Phos Isoenzymes Liver 65 % (25-69); Alk.Phos Isoenzymes Placental 0 % (<=0); Alk.Phos Isoenzymes Total 112 U/L (37-153)
== END 2024-02-08 14:20 | disposition home or self-care (01) ==
LOC: HO.HMGCLDS 14:19
PROVIDERS: PCP Internal Medicine; Visit Provider Internal Medicine Gastroenterology
DX: D64.9 Anemia, unspecified (principal)
CPT/HCPCS: 36415; 80076; 82977; 83540; 84080; 85025

== ENCOUNTER 2024-02-11 09:18 | Outpatient (REF) | payer MEDICARE, SELFPAY | END 2024-02-11 09:19 | disposition home or self-care (01) | LOC: HO.SH 09:18 | PROVIDERS: Visit Provider Internal Medicine | DX: Z01.118 Encounter for examination of ears and hearing with other abnormal findings (principal); H90.3 Sensorineural hearing loss, bilateral | CPT/HCPCS: 92557; 92567 ==

== ENCOUNTER 2024-03-21 14:08 | Outpatient (AMB) | payer MEDICARE, SELFPAY ==
--- NOTE | 2024-03-21 14:13 | A.OFFVIS_ITS ---
Vital Signs 03/21/24 14:15 Height 5 ft 4 in Weight 191 lb BMI 32.8 BP 128/60 Blood Pressure Location Rt brachial Position Sitting Respiration 16 Pulse 110 H Pulse Source Pulse Oximeter Pulse Oximetry (%) 97 Oxygen Delivery Method Room Air Intake Visit Reasons: COPD Allergies Latex, Natural Rubber Allergy (Severe, Verified 03/21/24 14:38) blisters Sulfa (Sulfonamide Antibiotics) [SULFA (SULFONAMIDE ANTIBIOTICS)] Allergy (Mild, Verified 03/21/24 14:38) ITCHING, rash nystatin Allergy (Unknown, Verified 03/21/24 14:38) rash isosorbide [From Imdur] Adverse Reaction (Unknown, Verified 03/21/24 14:38) HEADACHES, headache tizanidine Adverse Reaction (Unknown, Verified 03/21/24 14:38) weakness, Hellucination Medication List - Last Reconciled 03/21/24 by Bart Bernard MD acetaminophen 650 mg (2 x 325 mg) PO Q6H PRN albuterol sulfate 90 mcg/actuation (ProAir HFA) 2 puffs inhalation Q4H PRN apixaban (Eliquis) 5 mg PO BID atorvastatin 80 mg PO BEDTIME blood sugar diagnostic (SouthWingTouch Verio test strips) Test blood sugar 3 times per day blood-glucose meter (OneTouch Verio Flex Meter) As directed budesonide-formoterol 160-4.5 mcg/actuation (Symbicort) 2 puffs inhalation BID 30 days buspirone 5 mg PO BID carvedilol 6.25 mg PO BID cholecalciferol (vitamin D3) 25 mcg PO DAILY citalopram 30 mg (1.5 x 20 mg) PO DAILY clopidogrel 75 mg PO DAILY compr.stocking,thigh,reg,large Thigh High compression stockings 10-20mmHg diltiazem HCl ER 300 mg PO DAILY docusate sodium 100 mg PO BID PRN empagliflozin (Jardiance) 25 mg PO DAILY flash glucose sensor (FreeStyle Kelly 2 Sensor kit) As directed every 2 weeks furosemide 20 mg PO DAILY insulin glargine (Lantus Solostar U-100 Insulin) 25 units (0.25 mL) subcut BEDTIME insulin lispro (Humalog KwikPen (U-100) Insulin) 1 sliding scale dose subcut USEASDIRECTD insulin lispro (Humalog KwikPen (U-100) Insulin) 1 sliding scale dose subcut TID ipratropium-albuterol 0.5 mg-3 mg(2.5 mg base)/3 mL 3 mL inhalation BID PRN ipratropium-albuterol 0.5 mg-3 mg(2.5 mg base)/3 mL 3 mL inhalation Q8H PRN lancets (OneTouch Delica Plus Lancet) Test blood sugar 3 times per day lisinopril 20 mg PO DAILY loratadine 10 mg PO DAILY PRN montelukast 10 mg PO BEDTIME Ozempic (semaglutide) 2 mg (0.75 mL) subcut QWEEK NS pantoprazole 40 mg PO BID walker As directed Do you need a note to return to daycare/school/sports/work: No HPI HPI COPD: Details: 73 years old female is here for follow-up after 2 months. As far as chronic obstructive pulmonary disease is concerned it is well controlled and remains stable. She uses Symbicort 160-4.52 puffs b.i.d.. And she needs to use albuterol only once in a while when there is change in the weather. She walks around without much shortness of breath. For her obstructive sleep apnea she has not use the CPAP regularly. Her excuse is that she does not like humidification. She also states that when she does not put water in the tank the machine shuts off during the night. We do not have any compliance data. [facility] Medical History Hypertension Obstructive sleep apnea Asthma with COPD Anemia CKD stage 3 due to type 2 diabetes mellitus Diabetes type 2, uncontrolled Tracheomalacia, acquired History of pulmonary embolism AG (acute kidney injury) CAD (coronary artery disease) Non-ST elevation [place] (NSTEMI) Paroxysmal atrial fibrillation Pulmonary embolism Obesity Dyslipidemia [facility] (current) use of insulin Respiratory failure COPD (chronic obstructive pulmonary disease) Surgical History History of carpal tunnel surgery History of cholecystectomy History of lobectomy of lung Status post tracheoplasty History of cardiac cath Family History Mother No problems noted. Father No problems noted. Brother Substance use disorder Brother Substance use disorder Social History Household Members: Children Household Members Other:: 2 Housing: House Do you presently have visiting nurse or other home services: Yes ([facility]NA every 2 wks.) Alcohol intake: former Patient Tobacco Use Status: Former Tobacco user Tobacco use type: Cigarette Cigarettes Per Day: 10 Years Smoked: 3 e-Cigarette/Vaping Use: Never Used Second Hand Smoke Exposure: No Advance Directives Date on File: 06/29/23 service: No Current occupational status: retired Cognitive needs: No Hearing needs: No Vision needs: No Review of Systems Const All systems reviewed & are unremarkable except as noted in HPI and below ENT Reports nasal congestion (off and on . ) Card Denies chest pain, Denies irregular heart rhythm, Denies leg edema and Reports dyspnea on exertion Resp Reports cough (mild off and on ), Reports dyspnea on exertion and Denies wheezing GI Denies no additional complaints Musc Reports no additional complaints Neuro Reports no additional complaints Psych Reports no additional complaints Aller/Immun Denies wheezing Physical Exam Vital Signs: Last Vital Signs Pulse 110 H 03/21/24 14:15 Resp 16 03/21/24 14:15 BP 128/60 03/21/24 14:15 Pulse Ox 97 03/21/24 14:15 Oxygen Delivery Method Room Air 03/21/24 14:15 BMI result Body Mass Index 32.8 Const General: healthy appearing, comfortable, no acute distress, alert and awake Orientation/consciousness: patient oriented x3 HEENT Head: Yes normal to inspection General nose exam: No nasal polyps present and No nasal discharge present Face and sinus: Yes sinuses nontender Mouth: oropharynx normal Throat: Yes posterior oropharynx normal Eyes General: appearance normal, both eyes and all related structures Neck Neck: Yes normal visual inspection, Yes no lymphadenopathy, Yes trachea midline and Yes no JVD Thyroid: Thyroid normal Chest Chest palpation & inspection: normal inspection of the chest, normal palpation of entire chest wall and no tenderness Resp Other: Percussion note is resonant, breath sounds are distant but equal on both sides. No audible wheezes or crepitations. Cardio Palpation: normal PMI Rate: regular rate Rhythm: regular rhythm Heart sounds: no gallops and no murmurs GI Inspection: Yes other (There is ventral herniation in the upper part of the abdomen) Palpation (GI): Soft to palpation, nontender, No hepatosplenomegaly present and no masses Auscultation: normal bowel sounds Back/Spine/Pelvis Thoracic/Lumbar Spine: thoracic and lumbar spine normal to inspection Skin General skin exam: no rashes or lesions noted Neuro General: patient oriented x3 and no focal motor deficits Cranial nerves: Yes CN's II-XII intact bilaterally Extrem General: Yes normal to inspection, Yes no clubbing, cyanosis or edema and Yes no calf tenderness Psych Appearance: grossly normal and well kempt Speech and movement: Normal speech and movement present Results Reviewed Results Reviewed: Compliance report not available Assessment & Plan Assessment & Plan (1) Obstructive sleep apnea: Comment: SHE HAS CHRONIC OBSTRUCTIVE SLEEP APNEA/HYPOVENTILATION SYNDROME. She used to be on CPAP therapy. But has not use the CPAP since 2020. Recently admitted to [facility] with an acute exacerbation of COPD. She was treated with the CPAP and she tolerated it well She had a sleep study at [facility], and she did respond to CPAP of 10 cm. A new CPAP device was ordered which she does have at home , and it is functional. However she has not use the CPAP. Claiming that she does not like to have the moisture on her face. Code(s): G47.33 - Obstructive sleep apnea (adult) (pediatric) Category: Medical Plan: I talked to her in detail, checked her CPAP machine . Showed her the humidity , mode and it is on off mode at this time. I told her to use the CPAP, with pressure of 10 cm, regularly, and she can keep the humidity mode at 0 lower. (2) Asthma with COPD: Comment: PATIENT HAS LONGSTANDING HISTORY OF BRONCHIAL ASTHMA/COPD. AFTER PROLONGED INTUBATION SHE HAD DEVELOPED TRACHEOMALACIA IN 2009 . SHE UNDERWENT TRACHEO PLASTY AT [facility] AND [facility] , LOST FOLLOW-UP OVER THERE WAS IN 2021 INCLUDING A BRONCHOSCOPY AND THERE WAS NO EVIDENCE OF TRACHEOMALACIA. HER MAINTENANCE MEDICAL REGIMEN INCLUDES SYMBICORT 160-4.5 2 PUFFS B.I.D., Since her last visit she is using Symbicort regularly 2 puffs b.i.d.. SHE ALSO HAS NEBULIZER WITH DUONEB SOLUTION, TO BE USED P.R.N.. Code(s): J44.89 - Other specified chronic obstructive pulmonary disease Category: Medical Plan: Symbicort 160-4.52 puffs b.i.d... Albuterol HFA 2 puffs Q 4-6 hours p.r.n. for outdoors In the house she can use ipratropium-albuterol solution in the nebulizer Q 4-6 hours p.r.n.. Coding Level of Care Code Est Pt Level 3 (62073) Diagnoses Obstructive sleep apnea G47.33 Asthma with COPD J44.89
[2024-03-21 14:15] VITALS: BP 128/60; PULSE 110; RESP 16; O2SAT 97; BMI 32.8
== END 2024-03-21 14:38 | disposition home or self-care (01) ==
PROVIDERS: PCP Internal Medicine; Visit Provider Internal Medicine
DX: G47.33 Obstructive sleep apnea (adult) (pediatric) (principal); J44.89 Other specified chronic obstructive pulmonary disease
CPT/HCPCS: 99213

== ENCOUNTER → 2024-03-21 14:08 | Outpatient (BNVA) | payer MEDICARE, SELFPAY | PROVIDERS: PCP Internal Medicine; Visit Provider Internal Medicine | DX: J44.89 Other specified chronic obstructive pulmonary disease (principal); G47.33 Obstructive sleep apnea (adult) (pediatric) | CPT/HCPCS: 99212 ==

== ENCOUNTER 2024-03-31 14:26 | Outpatient (REF) | payer MEDICARE, SELFPAY ==
[2024-03-31 15:39] LABS: MANUAL DIFF FLAG NO
[2024-03-31 15:47] LABS: Basophils Absolute Auto 0.1 X10*3/uL (0.0-0.2); Basophils Percent Auto 1.1 % (0-2); Eosinophils Absolute Auto 0.5 X10*3/uL (0.0-0.4); Hematocrit 37.3 % (37.0-47.0); Hemoglobin 11.3 g/dl (12.0-16.0); Imm Gran Abs Auto 0.04 X10*3/uL (0.00-0.03); Imm Gran Pct Auto 0.4 % (0.0-0.4); Lymphocytes Absolute Auto 1.6 X10*3/uL (1.2-4.9); Lymphocytes Percent Auto 14.6 % (20-40); Mean Corpuscular HGB Conc 30.3 g/dl (31.0-35.0); Mean Corpuscular Hemoglobin 23.4 pg (27.0-33.0); Mean Corpuscular Volume 77.4 fL (80.0-98.0); Mean Platelet Volume 9.3 fL (9.4-12.3); Monocytes Absolute Auto 0.8 X10*3/uL (0.1-1.2); Monocytes Percent Auto 7.8 % (2-11); Neutrophils Absolute Auto 7.5 x10*3/uL (2.0-8.3); Neutrophils Percent Auto 71.1 % (45-73); Platelet Count 377 X10*3/uL (160-400); Red Blood Count 4.82 X10*6/uL (4.20-5.50); Red Cell Distribution Width 21.3 % (11.0-16.0); White Blood Count 10.6 X10*3/uL (4.8-10.8)
[2024-03-31 15:53] LABS: INTERNATIONAL NORM RATIO 1.5 (0.9-1.1); Prothrombin Time 18.4 SEC (11.1-13.3)
[2024-03-31 16:33] LABS: Anion Gap 16 (12-20); Blood Urea Nitrogen 23 mg/dL (9-16); Calcium 9.5 mg/dL (8.4-10.2); Carbon Dioxide 23 mmol/L (22-29); Chloride 105 mmol/L (96-108); Estimated Glomerular Filt Rate 36; Glucose Random 188 mg/dL (60-115); Potassium 4.4 mmol/L (3.3-5.1); Sodium 140 mmol/L (135-145)
== END 2024-03-31 14:27 | disposition home or self-care (01) ==
LOC: HO.LAB 14:26
PROVIDERS: PCP Internal Medicine; Visit Provider Nurse Practitioner
DX: Z01.812 Encounter for preprocedural laboratory examination (principal); R06.02 Shortness of breath; R07.9 Chest pain, unspecified; R94.39 Abnormal result of other cardiovascular function study; D64.9 Anemia, unspecified; Z79.01 Long term (current) use of anticoagulants
CPT/HCPCS: 36415; 80048; 85025; 85610; 99212

== ENCOUNTER 2024-03-31 14:26 | Outpatient (AMB) | payer MEDICARE, SELFPAY ==
--- NOTE | 2024-03-31 14:37 | A.OFFVIS_ITS ---
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: No Accompanied by: Daughter Allergies Latex, Natural Rubber Allergy (Severe, Verified 03/21/24 14:38) blisters Sulfa (Sulfonamide Antibiotics) [SULFA (SULFONAMIDE ANTIBIOTICS)] Allergy (Mild, Verified 03/21/24 14:38) ITCHING, rash nystatin Allergy (Unknown, Verified 03/21/24 14:38) rash isosorbide [From Imdur] Adverse Reaction (Unknown, Verified 03/21/24 14:38) HEADACHES, headache tizanidine Adverse Reaction (Unknown, Verified 03/21/24 14:38) weakness, Hellucination Medication List - Last Reconciled 03/31/24 by Dannielle Perez, MESERET acetaminophen 650 mg (2 x 325 mg) PO Q6H PRN albuterol sulfate 90 mcg/actuation (ProAir HFA) 2 puffs inhalation Q4H PRN apixaban (Eliquis) 5 mg PO BID atorvastatin 80 mg PO BEDTIME blood sugar diagnostic (OneTouch Verio test strips) Test blood sugar 3 times per day blood-glucose meter (OneTouch Verio Flex Meter) As directed budesonide-formoterol 160-4.5 mcg/actuation (Symbicort) 2 puffs inhalation BID 30 days buspirone 5 mg PO BID carvedilol 6.25 mg PO BID cholecalciferol (vitamin D3) 25 mcg PO DAILY citalopram 30 mg (1.5 x 20 mg) PO DAILY clopidogrel 75 mg PO DAILY compr.stocking,thigh,reg,large Thigh High compression stockings 10-20mmHg diltiazem HCl ER 300 mg PO DAILY docusate sodium 100 mg PO BID PRN empagliflozin (Jardiance) 25 mg PO DAILY flash glucose sensor (FreeStyle Kelly 2 Sensor kit) As directed every 2 weeks furosemide 20 mg PO DAILY insulin glargine (Lantus Solostar U-100 Insulin) 25 units (0.25 mL) subcut BEDTIME insulin lispro (Humalog KwikPen (U-100) Insulin) 1 sliding scale dose subcut USEASDIRECTD insulin lispro (Humalog KwikPen (U-100) Insulin) 1 sliding scale dose subcut TID ipratropium-albuterol 0.5 mg-3 mg(2.5 mg base)/3 mL 3 mL inhalation BID PRN ipratropium-albuterol 0.5 mg-3 mg(2.5 mg base)/3 mL 3 mL inhalation Q8H PRN lancets (Data Sciences InternationalTouch Delica Plus Lancet) Test blood sugar 3 times per day lisinopril 20 mg PO DAILY loratadine 10 mg PO DAILY PRN montelukast 10 mg PO BEDTIME Ozempic (semaglutide) 2 mg (0.75 mL) subcut QWEEK NS pantoprazole 40 mg PO BID walker As directed [facility] Medical History halfway current use of anticoagulant Abnormal stress test Hypertension Obstructive sleep apnea Asthma with COPD Anemia CKD stage 3 due to type 2 diabetes mellitus Diabetes type 2, uncontrolled Tracheomalacia, acquired History of pulmonary embolism AG (acute kidney injury) CAD (coronary artery disease) Non-ST elevation [place] (NSTEMI) Paroxysmal atrial fibrillation Pulmonary embolism Obesity 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 Father No problems noted. Brother Substance use disorder Brother Substance use disorder Social History Household Members: Children Household Members Other:: 2 Housing: House Do you presently have visiting nurse or other home services: Yes ([facility]NA every 2 wks.) Alcohol intake: former Patient Tobacco Use Status: Former Tobacco user Tobacco use type: Cigarette Cigarettes Per Day: 10 Years Smoked: 3 e-Cigarette/Vaping Use: Never Used Second Hand Smoke Exposure: No Advance Directives Date on File: 06/29/23 service: No Current occupational status: retired Cognitive needs: No Hearing needs: No Vision needs: No Physical Exam Vital Signs: Last Vital Signs Pulse 94 03/31/24 14:38 BP 110/62 03/31/24 14:38 BMI result Body Mass Index 32.5 Assessment & Plan Assessment & Plan (1) Shortness of breath: Code(s): R06.02 - Shortness of breath Category: Medical (2) Chest pain: Code(s): R07.9 - Chest pain, unspecified Category: Medical (3) Abnormal stress test: Code(s): R94.39 - Abnormal result of other cardiovascular function study Category: Medical (4) Anemia: Comment: Negative EGD 12/28 Code(s): D64.9 - Anemia, unspecified Category: Medical Qualifiers: Anemia type: unspecified type Qualified Code(s): D64.9 - Anemia, unspecified (5) halfway current use of anticoagulant: Code(s): 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 Will recheck as she is on the eliquis. Myocardial perfusion imaging study shows [id number] ischemia along the inferior/inferolateral wall. Still short of breath and having episodes of chest pains. Will send for another cardiac catherization to evaluate. Orders: Orders Cardiac Cath LT w PCI 03/31/24 R06.02 - Shortness of breath, R07.9 - Chest pain, unspecified, R94.39 - Abnormal result of other cardiovascular function study Basic Metabolic Panel 03/31/24 R06.02 - Shortness of breath, R07.9 - Chest pain, unspecified, R94.39 - Abnormal result of other cardiovascular function study Prothrombin Time INR 03/31/24 R06.02 - Shortness of breath, R07.9 - Chest pain, unspecified, R94.39 - Abnormal result of other cardiovascular function study, Z01.812 - Encounter for preprocedural laboratory examination Complete Blood Count Auto Diff 03/31/24 R06.02 - Shortness of breath, R07.9 - Chest pain, unspecified, R94.39 - Abnormal result of other cardiovascular function study, Z01.812 - Encounter for preprocedural laboratory examination Complete Blood Count Auto Diff 03/31/24 D64.9 - Anemia, unspecified, Z79.01 - 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
[2024-03-31 14:38] VITALS: BP 110/62; PULSE 94; BMI 32.5
== END 2024-03-31 16:01 | disposition home or self-care (01) ==
PROVIDERS: PCP Internal Medicine; Visit Provider Nurse Practitioner
DX: R06.02 Shortness of breath (principal); R07.9 Chest pain, unspecified; R94.39 Abnormal result of other cardiovascular function study; D64.9 Anemia, unspecified; Z79.01 Long term (current) use of anticoagulants
CPT/HCPCS: 99214

== ENCOUNTER 2024-04-07 12:31 | Outpatient (AMB) | payer MEDICARE, SELFPAY ==
[2024-04-07 12:34] VITALS: BP 110/56; PULSE 93; O2SAT 99; BMI 32.4
--- NOTE | 2024-04-07 12:34 | MHC.PC.OV ---
Vital Signs 04/07/24 12:34 Height 5 ft 4 in Weight 189 lb BMI 32.4 BP 110/56 L Blood Pressure Location Rt brachial Position Sitting Pulse 93 Pulse Source Pulse Oximeter Pulse Oximetry (%) 99 Oxygen Delivery Method Room Air Intake Visit Reasons: DM followup - see comments Allergies Latex, Natural Rubber Allergy (Severe, Verified 04/07/24 12:44) blisters Sulfa (Sulfonamide Antibiotics) [SULFA (SULFONAMIDE ANTIBIOTICS)] Allergy (Mild, Verified 04/07/24 12:44) ITCHING, rash nystatin Allergy (Unknown, Verified 04/07/24 12:44) rash isosorbide [From Imdur] Adverse Reaction (Unknown, Verified 04/07/24 12:44) HEADACHES, headache tizanidine Adverse Reaction (Unknown, Verified 04/07/24 12:44) weakness, Hellucination Medication List - Last Reconciled 04/07/24 by Amanda Leiva MD acetaminophen 650 mg (2 x 325 mg) PO Q6H PRN albuterol sulfate 90 mcg/actuation (ProAir HFA) 2 puffs inhalation Q4H PRN apixaban (Eliquis) 5 mg PO BID atorvastatin 80 mg PO BEDTIME blood sugar diagnostic (payworksTouch Verio test strips) Test blood sugar 3 times per day blood-glucose meter (OneTouch Verio Flex Meter) As directed budesonide-formoterol 160-4.5 mcg/actuation (Symbicort) 2 puffs inhalation BID 30 days buspirone 5 mg PO BID carvedilol 6.25 mg PO BID cholecalciferol (vitamin D3) 25 mcg PO DAILY citalopram 30 mg (1.5 x 20 mg) PO DAILY clopidogrel 75 mg PO DAILY compr.stocking,thigh,reg,large Thigh High compression stockings 10-20mmHg diltiazem HCl ER 300 mg PO DAILY docusate sodium 100 mg PO BID PRN empagliflozin (Jardiance) 25 mg PO DAILY flash glucose sensor (FreeStyle Kelly 2 Sensor kit) As directed every 2 weeks furosemide 20 mg PO DAILY insulin glargine (Lantus Solostar U-100 Insulin) 25 units (0.25 mL) subcut BEDTIME insulin lispro (Humalog KwikPen (U-100) Insulin) 1 sliding scale dose subcut USEASDIRECTD insulin lispro (Humalog KwikPen (U-100) Insulin) 1 sliding scale dose subcut TID ipratropium-albuterol 0.5 mg-3 mg(2.5 mg base)/3 mL 3 mL inhalation BID PRN ipratropium-albuterol 0.5 mg-3 mg(2.5 mg base)/3 mL 3 mL inhalation Q8H PRN lancets (OneTouch Delica Plus Lancet) Test blood sugar 3 times per day lisinopril 20 mg PO DAILY loratadine 10 mg PO DAILY PRN montelukast 10 mg PO BEDTIME Ozempic (semaglutide) 2 mg (0.75 mL) subcut QWEEK NS pantoprazole 40 mg PO BID walker As directed Tobacco use date assessed: 12/29/23 Fall risk assessment: 1 Fall in past year Last assessed Fall Risk: 04/07/24 Dental Screening Dental Screen Date: 12/29/23 HPI DM followup - see comments HPI Details Pt presents for f/u of IDDM, improving fasting glucose down to 130. Pt has been taking iron supplement for Iron def anemia. Pt reports feeling generally tired slightly better since taking iron supplement. She denies chest pain PND orthopnea diaphoresis nausea vomiting. Patient had a positive nuclear stress test in January. She had not been having any worsening symptoms since last year admission to [facility]. Patient has been having worsening iron deficiency anemia since started anticoagulation with clopidogrel and Eliquis, which corrected within a month after starting iron supplement. Patient denies hematochezia melena. She had a colonoscopy 2 years ago consistent with multiple polyps and repeat colonoscopy was recommended last year but was postponed it because of her hospitalization for NSTEMI and ARMANI in June. Patient complains of right knee pain for few weeks after she twisted while walking. She denies any falls or joint swelling. The pain is better once patient keeps walking. 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 Father No problems noted. Brother Substance use disorder Brother Substance use disorder Social History Household Members: Children Household Members Other:: 2 Housing: House Do you presently have visiting nurse or other home services: Yes ([facility] every 2 wks.) Alcohol intake: former Patient Tobacco Use Status: Former Tobacco user Tobacco use type: Cigarette Cigarettes Per Day: 10 Years Smoked: 3 e-Cigarette/Vaping Use: Never Used Second Hand Smoke Exposure: No Advance Directives Date on File: 06/29/23 service: No Current occupational status: retired Cognitive needs: No Hearing needs: No Vision needs: No Questionnaire PHQ-9 Over the last 2 weeks, how often have you been bothered by any of the following problems? 1. Little interest or pleasure in doing things: not at all 2. Feeling down, depressed, or hopeless: not at all 3. Trouble falling or staying asleep, or sleeping too much: not at all 4. Feeling tired or having little energy: not at all 5. Poor appetite or overeating: not at all 6. Feeling bad about yourself - or that you are a failure or have let yourself or your family down: not at all 7. Trouble concentrating on things, such as reading the newspaper or watching television: not at all 8. Moving or speaking so slowly that other people could have noticed. Or the opposite - being so fidgety or restless that you have been moving around a lot more than usual: several days 9. Thoughts that you would be better off or of hurting yourself in some way: not at all Total score: 1 Depression Screening Interpretation: Negative Depression Screening Done: Yes Source: Developed by Drs. Jeronimo Wallis, Saige Barrios, Nj Will and colleagues, with an educational katharine from [employer]. Thrive Questionnaire Date Thrive assessed: 11/28/23 I am a: Patient What is your living situation today?: I have a steady place to live Within the past 12 months, did the food you bought not last and you didn't have the money to get more?: Never true Within the past 12 months, did you worry whether your food would run out before you got money to buy more?: Never true Do you have trouble paying for medicines?: No Do you have trouble getting transportation to medical appointments?: No Do you have trouble paying your heating and electricity bill?: No Do you have trouble taking care of your child, family member or friend?: No Do you have trouble with day-to-day activities such as bathing, preparing meals, shopping, managing finances, etc.?: No Are you currently unemployed and looking for a job?: No Are you interested in more education?: No Please select the resources that you would like help with: Housing/Assisted Currently or been in a relationship where the following occur: No concerns reported THRIVE Score: 0 AUDIT C Alcohol Use Questionnaire (AUDIT-C) 1. How often do you have a drink containing alcohol?: Monthly or less 2. How many drinks containing alcohol do you have on a typical day when you are drinking?: 1 or 2 3. How often do you have six or more drinks on one occasion?: Never Total Score: 1 DOMINIQUE-7 AMB Questionnaire DOMINIQUE-7 Date DOMINIQUE - 7 assessed: 04/07/24 Feeling nervous, anxious, or on edge: 0 = Not at all Not being able to stop or control worryin = Not at all Worrying too much about different things: 0 = Not at all Trouble relaxin = Not at all Being so restless that it is hard to sit still: 0 = Not at all Becoming easily annoyed or irritable: 0 = Not at all Feeling afraid as if something awful might happen: 0 = Not at all Total DOMINIQUE-7 score (0-4 normal; 5-9 mild; 10-14 moderate; 15-21 severe): 0 Source: Developed by Drs. Jeronimo Wallis, Saige Barrios, Nj Will and colleagues, with an educational katharine from [employer]. Review of Systems Const All systems reviewed & are unremarkable except as noted in HPI and below Eyes Reports no additional complaints ENT Reports no additional complaints Resp Reports no additional complaints GI Reports no additional complaints Reports no additional complaints Musc Reports no additional complaints Physical exam (Primary Care) Vital Signs: Last Vital Signs Pulse 93 04/07/24 12:34 BP 92/56 L 04/07/24 12:34 Pulse Ox 99 04/07/24 12:34 Oxygen Delivery Method Room Air 04/07/24 12:34 BMI result Body Mass Index 32.4 Tobacco/Smoking Status: Tobacco use Status Tobacco use date assessed 12/29/23 04/07/24 12:35 Patient Tobacco Use Status Former Tobacco user 04/07/24 12:35 Tobacco use type Cigarette 04/07/24 12:35 e-Cigarette/Vaping Use Never Used 04/07/24 12:35 PHQ-9: PHQ-9 Score PHQ-9: Total score 1 04/07/24 12:51 Depression Screening Interpretation: Negative Thrive Assessment: Date of Thrive Assessment Date Thrive assessed 11/28/23 04/07/24 12:35 Currently or been in a relationship where the following occur: No concerns reported Const General: no acute distress HENMT Head: Yes normal to inspection Throat: Yes posterior oropharynx normal Eyes General: appearance normal, both eyes and all related structures Neck Neck: Yes supple Resp Effort & Inspection: normal respiratory effort Auscultation: clear to auscultation bilaterally Cardio Rhythm: regular rhythm Heart sounds: S1 normal heart sound present and S2 normal heart sound present GI Inspection: Yes normal to inspection Palpation (GI): Soft to palpation Percussion: Yes normal to percussion Auscultation: normal bowel sounds Extrem Other: Slightly decreased range of motion right knee, crepitus present, no soft tissue swelling erythema or warmth General: Yes no clubbing, cyanosis or edema Assessment and Plan Assessment & Plan (1) Right knee pain: Code(s): M25.561 - Pain in right knee Plan: Check x-ray and refer for physical therapy (2) Heart failure with preserved ejection fraction: Comment: Echo 11/2023 EF>70 %, NO REGIONAL WALL MOTION ABNORMALITIES, NORMAL RIGHT VENTRICULAR SYSTOLIC FUNCTION, MILD Code(s): I50.30 - Unspecified diastolic (congestive) heart failure Plan: Continue carvedilol furosemide lisinopril (3) Obstructive sleep apnea: Comment: SHE HAS CHRONIC OBSTRUCTIVE SLEEP APNEA/HYPOVENTILATION SYNDROME. She used to be on CPAP therapy. But has not use the CPAP since 2020. Recently admitted to [facility] with an acute exacerbation of COPD. She was treated with the CPAP and she tolerated it well She had a sleep study at [facility], and she did respond to CPAP of 10 cm. A new CPAP device was ordered which she does have at home , and it is functional. However she has not use the CPAP. Claiming that she does not like to have the moisture on her face. Code(s): G47.33 - Obstructive sleep apnea (adult) (pediatric) Plan: Continue (4) Asthma with COPD: Comment: PATIENT HAS LONGSTANDING HISTORY OF BRONCHIAL ASTHMA/COPD. AFTER PROLONGED INTUBATION SHE HAD DEVELOPED TRACHEOMALACIA IN 2009 . SHE UNDERWENT TRACHEO PLASTY AT [facility] , LOST FOLLOW-UP OVER THERE WAS IN 2021 INCLUDING A BRONCHOSCOPY AND THERE WAS NO EVIDENCE OF TRACHEOMALACIA. HER MAINTENANCE MEDICAL REGIMEN INCLUDES SYMBICORT 160-4.5 2 PUFFS B.I.D., Since her last visit she is using Symbicort regularly 2 puffs b.i.d.. SHE ALSO HAS NEBULIZER WITH DUONEB SOLUTION, TO BE USED P.R.N.. Code(s): J44.89 - Other specified chronic obstructive pulmonary disease Plan: Continue DuoNeb and Symbicort (5) Anemia: Comment: Negative EGD 12/28, colonoscopy in 2021 consistent with multiple polyps, recommended repeat colonoscopy was in 1 year, postpone it due to hospitalization for NSTEMI 06/28 Code(s): D64.9 - Anemia, unspecified Qualifiers: Anemia type: unspecified type Qualified Code(s): D64.9 - Anemia, unspecified Plan: Continue iron supplement check CBC in 1 month. Discussed with patient's Cardiology and the recommendation was to postpone repeat colonoscopy until June when patient can discontinue clopidogrel (6) Diabetes type 2, uncontrolled: Code(s): E11.65 - Type 2 diabetes mellitus with hyperglycemia Qualifiers: Glycemic state: with hyperglycemia Qualified Code(s): E11.65 - Type 2 diabetes mellitus with hyperglycemia Plan: Continue ADA diet current medication check A1c in 1 month before follow-up visit (7) CKD stage 3 due to type 2 diabetes mellitus: Code(s): E11.22 - Type 2 diabetes mellitus with diabetic chronic kidney disease; N18.30 - Chronic kidney disease, stage 3 unspecified Plan: Avoid nephrotoxins and monitor renal function (8) retirement (current) use of insulin: Code(s): Z79.4 - retirement (current) use of insulin (9) Non-ST elevation NM (NSTEMI): Comment: s/p ARMANI 06/2023 for 99% mid LCx, started on Plavix, Nuclear stress test 01/2024 mild to moderate ischemia along inferior and inferior lateral wall, ejection fraction 57%. After discussion with Dr. Hughes cardiac catheterization will be postponed unless patient becomes symptomatic 04/2024 Code(s): I21.4 - Non-ST elevation (NSTEMI) myocardial infarction Orders: Orders XR knee RT 2V Today M25.561 - Pain in right knee PT Evaluation and Treatment Today M25.561 - Pain in right knee IRON PROFILE 1 Month D64.9 - Anemia, unspecified, E11.22 - Type 2 diabetes mellitus with diabetic chronic kidney disease, E11.65 - Type 2 diabetes mellitus with hyperglycemia, E55.9 - Vitamin D deficiency, unspecified, I21.4 - Non-ST elevation (NSTEMI) myocardial infarction, N18.30 - Chronic kidney disease, stage 3 unspecified Hemoglobin A1c 1 Month D64.9 - Anemia, unspecified, E11.22 - Type 2 diabetes mellitus with diabetic chronic kidney disease, E11.65 - Type 2 diabetes mellitus with hyperglycemia, E55.9 - Vitamin D deficiency, unspecified, I21.4 - Non-ST elevation (NSTEMI) myocardial infarction, N18.30 - Chronic kidney disease, stage 3 unspecified Vitamin D 25-OH Total 1 Month D64.9 - Anemia, unspecified, E11.22 - Type 2 diabetes mellitus with diabetic chronic kidney disease, E11.65 - Type 2 diabetes mellitus with hyperglycemia, E55.9 - Vitamin D deficiency, unspecified, I21.4 - Non-ST elevation (NSTEMI) myocardial infarction, N18.30 - Chronic kidney disease, stage 3 unspecified Complete Blood Count Auto Diff 1 Month D64.9 - Anemia, unspecified, E11.22 - Type 2 diabetes mellitus with diabetic chronic kidney disease, E11.65 - Type 2 diabetes mellitus with hyperglycemia, E55.9 - Vitamin D deficiency, unspecified, I21.4 - Non-ST elevation (NSTEMI) myocardial infarction, N18.30 - Chronic kidney disease, stage 3 unspecified Comprehensive Hubert. Panel Fast 1 Month D64.9 - Anemia, unspecified, E11.22 - Type 2 diabetes mellitus with diabetic chronic kidney disease, E11.65 - Type 2 diabetes mellitus with hyperglycemia, E55.9 - Vitamin D deficiency, unspecified, I21.4 - Non-ST elevation (NSTEMI) myocardial infarction, N18.30 - Chronic kidney disease, stage 3 unspecified Lipid Panel 1 Month D64.9 - Anemia, unspecified, E11.22 - Type 2 diabetes mellitus with diabetic chronic kidney disease, E11.65 - Type 2 diabetes mellitus with hyperglycemia, E55.9 - Vitamin D deficiency, unspecified, I21.4 - Non-ST elevation (NSTEMI) myocardial infarction, N18.30 - Chronic kidney disease, stage 3 unspecified Microalbumin, Random (w Creat) 1 Month D64.9 - Anemia, unspecified, E11.22 - Type 2 diabetes mellitus with diabetic chronic kidney disease, E11.65 - Type 2 diabetes mellitus with hyperglycemia, E55.9 - Vitamin D deficiency, unspecified, I21.4 - Non-ST elevation (NSTEMI) myocardial infarction, N18.30 - Chronic kidney disease, stage 3 unspecified Vitamin B12 and Folate 1 Month D64.9 - Anemia, unspecified, E11.22 - Type 2 diabetes mellitus with diabetic chronic kidney disease, E11.65 - Type 2 diabetes mellitus with hyperglycemia, E55.9 - Vitamin D deficiency, unspecified, I21.4 - Non-ST elevation (NSTEMI) myocardial infarction, N18.30 - Chronic kidney disease, stage 3 unspecified TSH reflex Free T4 1 Month D64.9 - Anemia, unspecified Medications: Changed From pantoprazole 40 mg PO BID To pantoprazole 40 mg PO QAM Coding Level of Care Code Est Pt Level 5 (40980) Complex EM visit Add On G2211 Diagnoses Right knee pain M25.561 Heart failure with preserved ejection fraction I50.30 Obstructive sleep apnea G47.33 Asthma with COPD J44.89 Anemia, unspecified type D64.9 Anemia type: unspecified type Uncontrolled type 2 diabetes mellitus with hyperglycemia E11.65 Glycemic state: with hyperglycemia CKD stage 3 due to type 2 diabetes mellitus E11.22; N18.30 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
== END 2024-04-07 15:32 | disposition home or self-care (01) ==
PROVIDERS: PCP Internal Medicine; Visit Provider Internal Medicine
DX: I50.30 Unspecified diastolic (congestive) heart failure (principal); E11.65 Type 2 diabetes mellitus with hyperglycemia; E11.22 Type 2 diabetes mellitus with diabetic chronic kidney disease; N18.30 Chronic kidney disease, stage 3 unspecified; Z79.4 Long term (current) use of insulin; I21.4 Non-ST elevation (NSTEMI) myocardial infarction; M25.561 Pain in right knee; G47.33 Obstructive sleep apnea (adult) (pediatric); J44.89 Other specified chronic obstructive pulmonary disease; D64.9 Anemia, unspecified
CPT/HCPCS: 99214; G2211

== ENCOUNTER 2024-04-07 13:43 | Outpatient (REF) | payer MEDICARE, SELFPAY ==
--- NOTE | ~2024-04-07 | XR_ITS ---
EXAMINATION: XR KNEE, RIGHT CLINICAL INFORMATION: Pain. COMPARISON: None TECHNIQUE: AP and lateral views of the right knee. FINDINGS: Bony alignment and mineralization are normal. The lateral, medial and patellofemoral joint space compartments are well-maintained. There is very mild peripheral osteophyte formation of the upper and lower articular surfaces of the patella. No fracture, dislocation or significant joint effusion is seen. There is no foreign body. There are mild atherosclerotic calcifications. XR/XR knee RT 2V IMPRESSION: 1. No fracture, dislocation or significant right knee joint effusion is seen. 2. There is slight osteoarthritic change of the right patellofemoral compartment. Electronically signed by: Norberto Mane MD 05/04/2024 11:58 AM EDT
== END 2024-04-07 13:44 | disposition home or self-care (01) ==
LOC: HO.HMGCX 13:43
PROVIDERS: PCP Internal Medicine; Visit Provider Internal Medicine
DX: M25.561 Pain in right knee (principal)
CPT/HCPCS: 73560

== ENCOUNTER 2024-04-12 12:24 | Outpatient (AMB) | payer MEDICARE, SELFPAY ==
--- NOTE | 2024-04-12 12:35 | A.OFFVIS_ITS ---
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 Patient reports having a fall in January landing on her knees. States having bilateral knee pain with her right knee being the worse. She was seen by her PCP who ordered xrays and referred to orthopedics. She was also referred to PT however she has not yet been contacted for an appointment. She has constant pain that increases with stair use as well as cracking. Finds discomfort with use of an OTC knee brace. Allergies Latex, Natural Rubber Allergy (Severe, Verified 04/12/24 12:52) blisters Sulfa (Sulfonamide Antibiotics) [SULFA (SULFONAMIDE ANTIBIOTICS)] Allergy (Mild, Verified 04/12/24 12:52) ITCHING, rash nystatin Allergy (Unknown, Verified 04/12/24 12:52) rash isosorbide [From Imdur] Adverse Reaction (Unknown, Verified 04/12/24 12:52) HEADACHES, headache tizanidine Adverse Reaction (Unknown, Verified 04/12/24 12:52) weakness, Hellucination Medication List - Last Reconciled 04/12/24 by Amie Finn PA-C acetaminophen 650 mg (2 x 325 mg) PO Q6H PRN albuterol sulfate 90 mcg/actuation (ProAir HFA) 2 puffs inhalation Q4H PRN apixaban (Eliquis) 5 mg PO BID atorvastatin 80 mg PO BEDTIME blood sugar diagnostic (OneTouch Verio test strips) Test blood sugar 3 times per day blood-glucose meter (OneTouch Verio Flex Meter) As directed budesonide-formoterol 160-4.5 mcg/actuation (Symbicort) 2 puffs inhalation BID 30 days buspirone 5 mg PO BID carvedilol 6.25 mg PO BID cholecalciferol (vitamin D3) 25 mcg PO DAILY citalopram 30 mg (1.5 x 20 mg) PO DAILY clopidogrel 75 mg PO DAILY compr.stocking,thigh,reg,large Thigh High compression stockings 10-20mmHg diltiazem HCl ER 300 mg PO DAILY docusate sodium 100 mg PO BID PRN empagliflozin (Jardiance) 25 mg PO DAILY flash glucose sensor (FreeStyle Kelly 2 Sensor kit) As directed every 2 weeks furosemide 20 mg PO DAILY insulin glargine (Lantus Solostar U-100 Insulin) 25 units (0.25 mL) subcut BEDTIME insulin lispro (Humalog KwikPen (U-100) Insulin) 1 sliding scale dose subcut US EASDIRECTD insulin lispro (Humalog KwikPen (U-100) Insulin) 1 sliding scale dose subcut TID ipratropium-albuterol 0.5 mg-3 mg(2.5 mg base)/3 mL 3 mL inhalation BID PRN ipratropium-albuterol 0.5 mg-3 mg(2.5 mg base)/3 mL 3 mL inhalation Q8H PRN lancets (OneTouch Delica Plus Lancet) Test blood sugar 3 times per day lisinopril 20 mg PO DAILY loratadine 10 mg PO DAILY PRN montelukast 10 mg PO BEDTIME Ozempic (semaglutide) 2 mg (0.75 mL) subcut QWEEK NS pantoprazole 40 mg PO QAM walker As directed HPI 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 She was seen by her PCP who ordered x-rays, referred to our office, and sent her to physical therapy however she was not contacted for an appointment. She currently states she has constant pain in bilateral knees that is worse on her right knee and occasionally radiates up to her back. Her pain is aggravated with bending and stair use and she also hears cracking and grinding in her knee with ambulation. She experiences discomfort with the use of OTC knee brace. She finds no relief with Tylenol, resting and icing. She has not had any injury in the past. She has a history of diabetes. HPI Comments Details: xrays of the left knee obtained on 04/07/24 show mild to moderate oa [facility] Medical History (Updated 04/12/24 @ 13:01 by Amie Finn PA-C) Non-ST elevation VT (NSTEMI) Right knee pain detention current use of anticoagulant Abnormal stress test Hypertension Obstructive sleep apnea Asthma with COPD Anemia CKD stage 3 due to type 2 diabetes mellitus Diabetes type 2, uncontrolled Tracheomalacia, acquired History of pulmonary embolism AG (acute kidney injury) CAD (coronary artery disease) Paroxysmal atrial fibrillation Pulmonary embolism Obesity Dyslipidemia 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 Father No problems noted. Brother Substance use disorder Brother Substance use disorder Social History Household Members: Children Household Members Other:: 2 Housing: House Do you presently have visiting nurse or other home services: Yes ([facility] every 2 wks.) Alcohol intake: former Patient Tobacco Use Status: Former Tobacco user Tobacco use type: Cigarette Cigarettes Per Day: 10 Years Smoked: 3 e-Cigarette/Vaping Use: Never Used Second Hand Smoke Exposure: No Advance Directives Date on File: 06/29/23 service: No Current occupational status: retired Cognitive needs: No Hearing needs: No Vision needs: No Review of Systems Const All systems reviewed & are unremarkable except as noted in HPI and below Physical Exam Vital Signs: BMI result Body Mass Index 32.4 Extrem Other: Right knee: Skin intact, no erythema or joint effusion. Lateral retropatellar tenderness and tenderness along the patellar tendon. Full ROM with crepitus. Negative Alexia?s. No ligamentous laxity. NVI. ? Results Reviewed Results Reviewed: Xrays were obtained in the office today and personally reviewed by me of the right knee show moderate oa Assessment & Plan Assessment & Plan (1) Patellofemoral arthritis of right knee: Code(s): M17.11 - Unilateral primary osteoarthritis, right knee Category: Medical Plan We discussed options which include PT, NSAIDs and injections. The patient will defer on the injection today and proceed with PT and NSAIDs. She is adamant about not having an injection so she given prescription of Celebrex to take twice a day for 2 weeks to help with her discomfort. If symptoms persist, she will contact me for an injection, otherwise, PRN. Orders: Orders PT Evaluation and Treatment Today M17.11 - Unilateral primary osteoarthritis, right knee Medications: New celecoxib (Celebrex) 200 mg PO BID 60 caps 3RF 30 days Patient Instructions: Scribed for Amie Finn PA-C, by Emory Armijo neuropsychology medical consultant, on 04/12/2024 at 12:30 PM EST.? I, Amie Finn PA-C, have personally reviewed and agree with the information entered by the scribe. Coding Level of Care Code New Pt Level 3 (48993) Diagnoses Patellofemoral arthritis of right knee M17.11
[2024-04-12 12:44] VITALS: BMI 32.4
== END 2024-04-12 13:36 | disposition home or self-care (01) ==
LOC: HO.HOS 12:24
PROVIDERS: PCP Internal Medicine; Visit Provider Physician Assistant
DX: M17.11 Unilateral primary osteoarthritis, right knee (principal); W19.XXXA Unspecified fall, initial encounter
CPT/HCPCS: 99203

== ENCOUNTER → 2024-04-12 12:24 | Outpatient (BNVA) | payer MEDICARE, SELFPAY | PROVIDERS: PCP Internal Medicine; Visit Provider Physician Assistant | DX: M17.11 Unilateral primary osteoarthritis, right knee (principal); Z91.81 History of falling | CPT/HCPCS: 99202 ==

== ENCOUNTER 2024-05-01 09:02 | Outpatient (REF) | payer MEDICARE, SELFPAY ==
[2024-05-01 10:13] LABS: MANUAL DIFF FLAG NO
[2024-05-01 10:16] LABS: Basophils Absolute Auto 0.1 X10*3/uL (0.0-0.2); Basophils Percent Auto 1.1 % (0-2); Eosinophils Absolute Auto 0.5 X10*3/uL (0.0-0.4); Eosinophils Percent Auto 6.1 % (0-4); Hematocrit 37.1 % (37.0-47.0); Hemoglobin 11.4 g/dl (12.0-16.0); Imm Gran Abs Auto 0.03 X10*3/uL (0.00-0.03); Imm Gran Pct Auto 0.4 % (0.0-0.4); Lymphocytes Absolute Auto 1.4 X10*3/uL (1.2-4.9); Lymphocytes Percent Auto 17.2 % (20-40); Mean Corpuscular HGB Conc 30.7 g/dl (31.0-35.0); Mean Corpuscular Hemoglobin 24.9 pg (27.0-33.0); Monocytes Absolute Auto 0.6 X10*3/uL (0.1-1.2); Neutrophils Absolute Auto 5.3 x10*3/uL (2.0-8.3); Neutrophils Percent Auto 67.2 % (45-73); Platelet Count 287 X10*3/uL (160-400); Red Blood Count 4.58 X10*6/uL (4.20-5.50); Red Cell Distribution Width 21.7 % (11.0-16.0); White Blood Count 7.9 X10*3/uL (4.8-10.8)
[2024-05-01 11:01] LABS: Estimated Average Glucose 146 mg/dL; Hemoglobin A1c % 6.7 % (<6.0)
[2024-05-01 11:30] LABS: TSH reflex Free T4 3.85 uIU/mL (0.32-4.0); Vitamin D 25-OH Total 57.7 ng/mL (>30)
[2024-05-01 11:35] LABS: Anion Gap 16 (12-20)
[2024-05-01 11:40] LABS: Alanine Aminotransferase 13 U/L (0-31); Albumin Level 3.9 g/dL (3.5-5.0); Alkaline Phosphatase 105 U/L (39-117); Aspartate Amino Transferase 14 U/L (5-31); Bilirubin Total 0.4 mg/dL (0.0-1.0); Blood Urea Nitrogen 31 mg/dL (9-16); Calcium 9.3 mg/dL (8.4-10.2); Carbon Dioxide 24 mmol/L (22-29); Chloride 105 mmol/L (96-108); Cholesterol 166 mg/dL (<200); Estimated Glomerular Filt Rate 46; Glucose Fasting 130 mg/dL (60-99); HDL Cholesterol 41 mg/dL (>40); Iron 38 mcg/dL (30-160); LDL Cholesterol Calculated 102 mg/dL (<100); Percent Iron Saturation 13 % (15-50); Potassium 4.5 mmol/L (3.3-5.1); Sodium 140 mmol/L (135-145); Total Iron Binding Capacity 286 mcg/dL (228-428); Total Protein 6.9 g/dL (6.5-8.0); Triglycerides 116 mg/dL (<150); Unsaturated Iron Binding 248 ug/dL
[2024-05-01 11:41] LABS: Folate 7.4 ng/mL (> or = 4.0); Vitamin B12 326 pg/mL (200-900)
[2024-05-01 13:52] LABS: Creatinine Urine 32.75 mg/dL; Microalbum/Creatinine Ratio Ur 48.8 ug/mg cr (<30)
== END 2024-05-01 09:03 | disposition home or self-care (01) ==
LOC: HO.HMGCLDS 09:02
PROVIDERS: PCP Internal Medicine; Visit Provider Internal Medicine
DX: E55.9 Vitamin D deficiency, unspecified (principal); D64.9 Anemia, unspecified; E11.65 Type 2 diabetes mellitus with hyperglycemia; N18.30 Chronic kidney disease, stage 3 unspecified; E11.22 Type 2 diabetes mellitus with diabetic chronic kidney disease; I21.4 Non-ST elevation (NSTEMI) myocardial infarction
CPT/HCPCS: 36415; 80053; 80061; 82043; 82306; 82570; 82607; 82746; 83036; 83540; 84443; 85025

== ENCOUNTER 2024-05-11 09:28 | Outpatient (AMB) | payer MEDICARE, SELFPAY ==
[2024-05-11 09:44] VITALS: BP 124/66; PULSE 109; O2SAT 99; BMI 33.8
--- NOTE | 2024-05-11 09:44 | MHC.PC.OV ---
Vital Signs 05/11/24 09:44 Height 5 ft 4 in Weight 197 lb BMI 33.8 BP 124/66 Blood Pressure Location Lt brachial Position Sitting Pulse 109 H Pulse Source Pulse Oximeter Pulse Oximetry (%) 99 Oxygen Delivery Method Room Air Intake Visit Reasons: 1 month follow up DM Intake Note: Pt is here today for 1 month follow up visit. Pt states that she has been dizzy lately and she was having chest pain yesterday. Pt also has wheezing. Allergies Latex, Natural Rubber Allergy (Severe, Verified 05/11/24 09:55) blisters Sulfa (Sulfonamide Antibiotics) [SULFA (SULFONAMIDE ANTIBIOTICS)] Allergy (Mild, Verified 05/11/24 09:55) ITCHING, rash nystatin Allergy (Unknown, Verified 05/11/24 09:55) rash isosorbide [From Imdur] Adverse Reaction (Unknown, Verified 05/11/24 09:55) HEADACHES, headache tizanidine Adverse Reaction (Unknown, Verified 05/11/24 09:55) weakness, Hellucination Medication List - Last Reconciled 05/11/24 by Amanda Leiva MD acetaminophen 650 mg (2 x 325 mg) PO Q6H PRN albuterol sulfate 90 mcg/actuation (ProAir HFA) 2 puffs inhalation Q4H PRN apixaban (Eliquis) 5 mg PO BID atorvastatin 80 mg PO BEDTIME blood sugar diagnostic (Solapa4Touch Verio test strips) Test blood sugar 3 times per day blood-glucose meter (OneTouch Verio Flex Meter) As directed budesonide-formoterol 160-4.5 mcg/actuation (Symbicort) 2 puffs inhalation BID 30 days buspirone 5 mg PO BID carvedilol 6.25 mg PO BID 90 days celecoxib (Celebrex) 200 mg PO BID 30 days cholecalciferol (vitamin D3) 25 mcg PO DAILY citalopram 30 mg (1.5 x 20 mg) PO DAILY clopidogrel 75 mg PO DAILY compr.stocking,thigh,reg,large Thigh High compression stockings 10-20mmHg diltiazem HCl ER 300 mg PO DAILY docusate sodium 100 mg PO BID PRN empagliflozin (Jardiance) 25 mg PO DAILY flash glucose sensor (CADsurf Kelly 2 Sensor kit) As directed every 2 weeks furosemide 20 mg PO DAILY insulin glargine (Lantus Solostar U-100 Insulin) 25 units (0.25 mL) subcut BEDTIME insulin lispro (Humalog KwikPen (U-100) Insulin) 1 sliding scale dose subcut USEASDIRECTD insulin lispro (Humalog KwikPen (U-100) Insulin) 1 sliding scale dose subcut TID ipratropium-albuterol 0.5 mg-3 mg(2.5 mg base)/3 mL 3 mL inhalation BID PRN ipratropium-albuterol 0.5 mg-3 mg(2.5 mg base)/3 mL 3 mL inhalation Q8H PRN lancets ([employer]ga [employer]uch Delica Plus Lancet) Test blood sugar 3 times per day lisinopril 20 mg PO DAILY loratadine 10 mg PO DAILY PRN montelukast 10 mg PO BEDTIME Ozempic (semaglutide) 2 mg (0.75 mL) subcut QWEEK NS pantoprazole 40 mg PO QAM walker As directed Tobacco use date assessed: 12/29/23 Dental Screening Dental Screen Date: 12/29/23 HPI 1 month follow up DM HPI Details Patient presents for the follow-up of type 2 diabetes chronic kidney disease hyperlipidemia hypertension paroxysmal AFib chronic asthma. She complains of sinus congestion intermittent cough with white sputum, wheezing and chest tightness for the last 2 days. 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 Father No problems noted. Brother Substance use disorder Brother Substance use disorder Social History Household Members: Children Household Members Other:: 2 Housing: House Do you presently have visiting nurse or other home services: Yes ([facility] every 2 wks.) Alcohol intake: former Patient Tobacco Use Status: Former Tobacco user Tobacco use type: Cigarette Cigarettes Per Day: 10 Years Smoked: 3 e-Cigarette/Vaping Use: Never Used Second Hand Smoke Exposure: No Advance Directives Date on File: 06/29/23 service: No Current occupational status: retired Cognitive needs: No Hearing needs: No Vision needs: No Questionnaire PHQ-9 Over the last 2 weeks, how often have you been bothered by any of the following problems? 1. Little interest or pleasure in doing things: not at all 2. Feeling down, depressed, or hopeless: not at all 3. Trouble falling or staying asleep, or sleeping too much: not at all 4. Feeling tired or having little energy: not at all 5. Poor appetite or overeating: not at all 6. Feeling bad about yourself - or that you are a failure or have let yourself or your family down: not at all 7. Trouble concentrating on things, such as reading the newspaper or watching television: not at all 8. Moving or speaking so slowly that other people could have noticed. Or the opposite - being so fidgety or restless that you have been moving around a lot more than usual: several days 9. Thoughts that you would be better off or of hurting yourself in some way: not at all Total score: 1 Depression Screening Interpretation: Negative Depression Screening Done: Yes [id number] - PHQ-9 Billing: Yes Source: Developed by Drs. Jeronimo Wallis, Saige Barrios, Nj Will and colleagues, with an educational katharine from [employer]. Thrive Questionnaire Date Thrive assessed: 11/28/23 I am a: Patient What is your living situation today?: I have a steady place to live Within the past 12 months, did the food you bought not last and you didn't have the money to get more?: Never true Within the past 12 months, did you worry whether your food would run out before you got money to buy more?: Never true Do you have trouble paying for medicines?: No Do you have trouble getting transportation to medical appointments?: No Do you have trouble paying your heating and electricity bill?: No Do you have trouble taking care of your child, family member or friend?: No Do you have trouble with day-to-day activities such as bathing, preparing meals, shopping, managing finances, etc.?: No Are you currently unemployed and looking for a job?: No Are you interested in more education?: No Please select the resources that you would like help with: None Currently or been in a relationship where the following occur: No concerns reported THRIVE Score: 0 AUDIT C Alcohol Use Questionnaire (AUDIT-C) 1. How often do you have a drink containing alcohol?: Monthly or less 2. How many drinks containing alcohol do you have on a typical day when you are drinking?: 1 or 2 3. How often do you have six or more drinks on one occasion?: Never Total Score: 1 DOMINIQUE-7 AMB Questionnaire DOMINIQUE-7 Date DOMINIQUE - 7 assessed: 04/07/24 Feeling nervous, anxious, or on edge: 0 = Not at all Not being able to stop or control worryin = Not at all Worrying too much about different things: 0 = Not at all Trouble relaxin = Not at all Being so restless that it is hard to sit still: 0 = Not at all Becoming easily annoyed or irritable: 0 = Not at all Feeling afraid as if something awful might happen: 0 = Not at all Total DOMINIQUE-7 score (0-4 normal; 5-9 mild; 10-14 moderate; 15-21 severe): 0 Source: Developed by Drs. Jeronimo Wallis, Saige Barrios, Nj Will and colleagues, with an educational katharine from [employer]. Review of Systems Const All systems reviewed & are unremarkable except as noted in HPI and below ENT Reports no additional complaints Card Reports no additional complaints Resp Reports no additional complaints GI Reports no additional complaints Physical exam (Primary Care) Vital Signs: Last Vital Signs Pulse 109 H 05/11/24 09:44 BP 124/66 05/11/24 09:44 Pulse Ox 99 05/11/24 09:44 Oxygen Delivery Method Room Air 05/11/24 09:44 BMI result Body Mass Index 33.8 Tobacco/Smoking Status: Tobacco use Status Tobacco use date assessed 12/29/23 05/11/24 09:44 Patient Tobacco Use Status Former Tobacco user 05/11/24 09:44 Tobacco use type Cigarette 05/11/24 09:44 e-Cigarette/Vaping Use Never Used 05/11/24 09:44 PHQ-9: PHQ-9 Score PHQ-9: Total score 1 05/11/24 09:44 Depression Screening Interpretation: Negative Thrive Assessment: Date of Thrive Assessment Date Thrive assessed 11/28/23 05/11/24 09:44 Currently or been in a relationship where the following occur: No concerns reported Const General: no acute distress HENMT Ears: TM's normal bilaterally Face and sinus: Yes normal facial exam and Yes sinuses nontender Neck Neck: Yes no lymphadenopathy and Yes supple Resp Effort & Inspection: normal respiratory effort Auscultation: clear to auscultation bilaterally and diminished lung sounds Cardio Rate: tachycardic Rhythm: regular rhythm Heart sounds: S1 normal heart sound present and S2 normal heart sound present GI Inspection: Yes normal to inspection Palpation (GI): Soft to palpation Percussion: Yes normal to percussion Auscultation: normal bowel sounds Assessment and Plan Assessment & Plan (1) Heart failure with preserved ejection fraction: Comment: Echo 11/2023 EF>70 %, NO REGIONAL WALL MOTION ABNORMALITIES, NORMAL RIGHT VENTRICULAR SYSTOLIC FUNCTION, MILD Code(s): I50.30 - Unspecified diastolic (congestive) heart failure Plan: CONTINUE CURRENT MEDICATIONS INCREASE CARVEDILOL TO 12.5 mg twice a day for better heart rate and hypertension control, follow-up in 1 month (2) Asthma with COPD: Comment: PATIENT HAS LONGSTANDING HISTORY OF BRONCHIAL ASTHMA/COPD. AFTER PROLONGED INTUBATION SHE HAD DEVELOPED TRACHEOMALACIA IN 2009 . SHE UNDERWENT TRACHEO PLASTY AT [facility] AND [facility] , LOST FOLLOW-UP OVER THERE WAS IN 2021 INCLUDING A BRONCHOSCOPY AND THERE WAS NO EVIDENCE OF TRACHEOMALACIA. HER MAINTENANCE MEDICAL REGIMEN INCLUDES SYMBICORT 160-4.5 2 PUFFS B.I.D., Since her last visit she is using Symbicort regularly 2 puffs b.i.d.. SHE ALSO HAS NEBULIZER WITH [employer], TO BE USED P.R.N.. Code(s): J44.89 - Other specified chronic obstructive pulmonary disease Plan: For asthma flareup most likely secondary to seasonal allergy prednisone 20 mg for 5 days is prescribed and supportive care discussed with the patient continue using Symbicort and albuterol as needed (3) CKD stage 3 due to type 2 diabetes mellitus: Code(s): E11.22 - Type 2 diabetes mellitus with diabetic chronic kidney disease; N18.30 - Chronic kidney disease, stage 3 unspecified Plan: Monitor renal function and avoid nephrotoxins (4) DM type 2 (diabetes mellitus, type 2): Code(s): E11.9 - Type 2 diabetes mellitus without complications Plan: A1c is 6.7, ADA diet continue current regimen discussed with the patient Orders: Orders AMB EKG-In Office Today I21.4 - Non-ST elevation (NSTEMI) myocardial infarction, I50.30 - Unspecified diastolic (congestive) heart failure Coding Level of Care Code Est Pt Level 4 (14639) Diagnoses Heart failure with preserved ejection fraction I50.30 Asthma with COPD J44.89 CKD stage 3 due to type 2 diabetes mellitus E11.22; N18.30 DM type 2 (diabetes mellitus, type 2) E11.9
== END 2024-05-11 10:59 | disposition home or self-care (01) ==
PROVIDERS: PCP Internal Medicine; Visit Provider Internal Medicine
DX: I50.30 Unspecified diastolic (congestive) heart failure (principal); J44.89 Other specified chronic obstructive pulmonary disease; E11.22 Type 2 diabetes mellitus with diabetic chronic kidney disease; N18.30 Chronic kidney disease, stage 3 unspecified
CPT/HCPCS: 99214

== ENCOUNTER 2024-05-16 15:26 | Inpatient (IN) | payer MEDICARE, SELFPAY ==
--- NOTE | ~2024-05-16 | XR_ITS ---
EXAMINATION: XR CHEST CLINICAL INFORMATION: Chest pain with inspiration COMPARISON: 05/16/2024 TECHNIQUE: Frontal view of the chest was obtained. FINDINGS: Compared to the study from 05/16/2024 there has been no interval change and no acute finding is present. Again seen are postoperative changes in the left lung with some mild tenting of the left diaphragm and basilar atelectasis. XR/XR chest 1V IMPRESSION: No acute intrathoracic disease. Electronically signed by: Isaías Ruiz MD 05/18/2024 01:54 PM EDT RP
--- NOTE | ~2024-05-16 | XR_ITS ---
EXAMINATION: XR CHEST CLINICAL INFORMATION: Chest pain COMPARISON: Chest radiograph 01/28/2024, CT chest 05/11/2020 TECHNIQUE: Frontal view of the chest was obtained. FINDINGS: The heart and pulmonary vessels appear normal. There is mild tenting and elevation of the left hemidiaphragm. A chain suture line is present on the left indicative of partial pneumonectomy. Some chronic scarring again noted in the mid right lung and at the left lung base. No effusions are seen. Degenerative changes are present in the spine ACDF hardware is noted. XR/XR chest 1V IMPRESSION: No acute intrathoracic disease. Postop changes left lung. Electronically signed by: Isaías Ruiz MD 05/16/2024 07:27 PM EDT
--- NOTE | ~2024-05-16 | XR_ITS ---
EXAMINATION: XR ABDOMEN KUB CLINICAL INDICATION: Upper abdominal pain COMPARISON: 07/26/2019 TECHNIQUE: AP view of the abdomen. FINDINGS: The bowel gas pattern is normal with no evidence of ileus or obstruction. No unusual soft tissue calcifications are noted. The bones are unremarkable. XR/XR KUB IMPRESSION: Unremarkable examination. Electronically signed by: Darrick Frey MD 05/18/2024 04:50 PM EDT
--- NOTE | 2024-05-16 15:38 | ECG_ITS ---
Test Reason : CHEST PAIN Blood Pressure : / mmHG Vent. Rate : 105 BPM Atrial Rate : 105 BPM P-R Int : 200 ms QRS Dur : 082 ms QT Int : 338 ms P-R-T Axes : 064 047 085 degrees QTc Int : 446 ms Sinus tachycardia Otherwise normal ECG When compared with ECG of 16-DEC-2023 12:20, Heart rate has increased Referred By: Generic ED Physician Electronically Signed By:JO MARTELL
[2024-05-16 15:57] VITALS: BP 116/64; BP 141/65; PULSE 107; RESP 16; TEMP 36.9; O2SAT 96; O2SAT 97; BMI 35.2
[2024-05-16 16:28] LABS: MANUAL DIFF FLAG NO
[2024-05-16 16:30] LABS: Basophils Percent Auto 0.2 % (0-2); Hematocrit 36.1 % (37.0-47.0); Hemoglobin 11.6 g/dl (12.0-16.0); Imm Gran Abs Auto 0.07 X10*3/uL (0.00-0.03); Imm Gran Pct Auto 0.5 % (0.0-0.4); Lymphocytes Absolute Auto 0.9 X10*3/uL (1.2-4.9); Lymphocytes Percent Auto 6.1 % (20-40); Mean Corpuscular HGB Conc 32.1 g/dl (31.0-35.0); Mean Corpuscular Hemoglobin 25.6 pg (27.0-33.0); Mean Corpuscular Volume 79.7 fL (80.0-98.0); Mean Platelet Volume 9.6 fL (9.4-12.3); Monocytes Absolute Auto 0.5 X10*3/uL (0.1-1.2); Monocytes Percent Auto 3.2 % (2-11); Neutrophils Absolute Auto 13.5 x10*3/uL (2.0-8.3); Platelet Count 310 X10*3/uL (160-400); Red Blood Count 4.53 X10*6/uL (4.20-5.50); Red Cell Distribution Width 21.1 % (11.0-16.0)
[2024-05-16 16:48] LABS: Alanine Aminotransferase 13 U/L (0-31); Albumin Level 3.9 g/dL (3.5-5.0); Alkaline Phosphatase 96 U/L (39-117); Anion Gap 13 (12-20); Aspartate Amino Transferase 8 U/L (5-31); Bilirubin Total 0.2 mg/dL (0.0-1.0); Blood Urea Nitrogen 33 mg/dL (9-16); Calcium 8.8 mg/dL (8.4-10.2); Carbon Dioxide 23 mmol/L (22-29); Chloride 104 mmol/L (96-108); Creatinine Clr Calc Pharmacy 45.1; Estimated Glomerular Filt Rate 44; Glucose Random 272 mg/dL (60-115); Potassium 4.3 mmol/L (3.3-5.1); Sodium 136 mmol/L (135-145); Total Protein 6.9 g/dL (6.5-8.0)
[2024-05-16 16:54] LABS: Troponin-I High Sensitivity 3.3 ng/L (<3.5-17.0)
[2024-05-16 17:16] LABS: Influenza A PCR NEGATIVE (Negative); Influenza B PCR NEGATIVE (Negative); Resp Syncy Virus RNA Qual PCR NEGATIVE (Negative); SARS COV2 PCR INHOUSE NEGATIVE (Negative)
[2024-05-16] MEDS: Albuterol/Iprat 2.5/0.5MG 3 ML AMPUL.NEB INHALE (17:27)
[2024-05-16 17:30] VITALS: PULSE 103; RESP 18; O2SAT 95
[2024-05-16 17:50] LABS: B Type Natriuretic Peptide 72 pg/mL (<100)
--- NOTE | 2024-05-16 17:51 | ED_ITS ---
HPI - Chest Pain General Chief Complaint: Chest Pain Stated Complaint: chest pain beginning Wednesday Time Seen by Provider: 05/16/24 16:21 Source: patient, family and EMS Mode of arrival: EMS Limitations: no limitations History of Present Illness HPI narrative: Patient is a 73-year-old female who presents to the emergency department via EMS for evaluation of persistent chest pain and shortness of breath. Her daughter Rachana is on phone in the room in helps to provide additional history. Patient reports that she has been experiencing shortness of breath, difficulty breathing, an intermittent pain to the substernal region and bilateral lower ribs. Onset of symptoms was 1 week ago. However over the past 2 days she admits that the pain in her chest and lower ribs has been more severe and constant where as previously was intermittent. At times she does feel as though the pain worsens with deep inspiration as well as with cough. Five days ago, on she saw her primary care doctor, she was advised to begin taking prednisone 20 mg daily, she was noted to be tachycardic in office in the 120s, and she was advised to increase her carvedilol dosage from 1 tablet-6.25mg to 2 tablets-12.5mg twice daily only for 1 week. The following day she continued to feel worse so she presented to [facility] emergency department, by daughter's account she was told that patient has a viral infection causing COPD exacerbation, she was provided with additional prednisone for a total of 40 mg to take daily for 10 days. As the weekend progress she was not noticing any relief, she had a telehealth appointment with her primary care doctor 2 days ago, on Wednesday, and began taking a Z-Raymundo as of yesterday. A nurse practitioner through her health insurance; landmarks presented to the home today, and advised patient to come to the emergency department as she was continuing to experience these symptoms. Denies fevers, chills, back pain, nausea, vomiting, abdominal pain, numbness or tingling of the extremities, symptoms, recent ill contacts. Related Data Home Medications ?Medication ?Instructions ?Recorded ?Confirmed albuterol sulfate 90 mcg/actuation 2 puff inhalation Q4H PRN 06/25/23 05/11/24 aerosol inhaler (ProAir HFA) Shortness Of Breath cholecalciferol (vitamin D3) 25 25 mcg PO DAILY 08/11/23 05/11/24 mcg (1,000 unit) tablet ipratropium 0.5 mg-albuterol 3 mg 3 ml inhalation BID PRN sob 08/11/23 05/11/24 (2.5 mg base)/3 mL nebulization soln loratadine 10 mg tablet 10 mg PO DAILY PRN Allergy Symptoms 08/11/23 05/11/24 atorvastatin 80 mg tablet 80 mg PO BEDTIME 11/28/23 05/11/24 buspirone 5 mg tablet 5 mg PO BID 11/28/23 05/11/24 furosemide 20 mg tablet 20 mg PO DAILY 11/28/23 05/11/24 montelukast 10 mg tablet 10 mg PO BEDTIME 11/28/23 05/11/24 insulin lispro 100 unit/mL 1 sliding scale dose subcut 12/02/23 05/11/24 subcutaneous pen (Humalog KwikPen USEASDIRECTD (U-100) Insulin) pantoprazole 40 mg tablet,delayed 40 mg PO QAM 04/07/24 05/11/24 release Previous Rx's ?Medication ?Instructions ?Recorded walker #1 ea 02/28/23 acetaminophen 325 mg tablet 650 mg (2 x 325 mg) PO Q6H PRN 08/22/23 pain #30 tabs docusate sodium 100 mg capsule 100 mg PO BID PRN Constipation #30 08/22/23 caps empagliflozin 25 mg tablet 25 mg PO DAILY #90 tabs 09/21/23 (Jardiance) apixaban 5 mg tablet (Eliquis) 5 mg PO BID #180 tabs 09/27/23 diltiazem HCl 300 mg capsule,24 300 mg PO DAILY #90 caps 12/22/23 hr,extended release citalopram 20 mg tablet 30 mg (1.5 x 20 mg) PO DAILY #135 12/29/23 tabs ipratropium 0.5 mg-albuterol 3 mg 3 ml inhalation Q8H PRN wheezing 12/29/23 (2.5 mg base)/3 mL nebulization #180 mL soln lisinopril 20 mg tablet 20 mg PO DAILY #90 tabs 01/04/24 budesonide-formoterol HFA 160 2 puff inhalation BID 30 days 01/11/24 mcg-4.5 mcg/actuation aerosol #10.2 grams inhaler (Symbicort) Ozempic 2 mg/dose (8 mg/3 mL) 2 mg (0.75 mL) subcut QWEEK #3 mL 02/02/24 subcutaneous pen injector (semaglutide) compr.stocking,thigh,reg,large #2 ea 02/08/24 insulin glargine 100 unit/mL (3 25 unit (0.25 mL) subcut BEDTIME 02/22/24 mL) subcutaneous pen (Lantus #15 mL Solostar U-100 Insulin) blood sugar diagnostic (OneTouch #100 ea 03/06/24 Verio test strips) blood-glucose meter (OneTouch #1 ea 03/06/24 Verio Flex Meter) lancets 30 gauge (OneTouch Delica #100 ea 03/06/24 Plus Lancet) clopidogrel 75 mg tablet 75 mg PO DAILY #90 tabs 03/07/24 insulin lispro 100 unit/mL 1 sliding scale dose subcut TID 03/12/24 subcutaneous pen (Humalog KwikPen #15 mL (U-100) Insulin) celecoxib 200 mg capsule (Celebrex) 200 mg PO BID 30 days #60 caps 04/12/24 carvedilol 6.25 mg tablet 6.25 mg PO BID 90 days #180 tabs 05/09/24 flash glucose sensor (FreeStyle #6 ea 05/09/24 Kelly 2 Sensor kit) prednisone 20 mg tablet 20 mg PO DAILY #5 tabs 05/12/24 Allergies Allergy/AdvReac Type Severity Reaction Status Date / Time Latex, Natural Rubber Allergy Severe blisters Verified 05/16/24 15:59 Sulfa (Sulfonamide Allergy Mild ITCHING, Verified 05/16/24 15:59 Antibiotics) rash [SULFA (SULFONAMIDE ANTIBIOTICS)] nystatin Allergy Unknown rash Verified 05/16/24 15:59 isosorbide [From Imdur] AdvReac Unknown HEADACHES, Verified 05/16/24 15:59 headache tizanidine AdvReac Unknown weakness, Verified 05/16/24 15:59 Hellucination Review of Systems 2 Review of Systems: Yes all other systems are reviewed and are negative PMFSH Past Medical History Attestation statement: The following information was validated with the patient. 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 Abnormal stress test Hypertension Obstructive sleep apnea Asthma with COPD Anemia CKD stage 3 due to type 2 diabetes mellitus Tracheomalacia, acquired History of pulmonary embolism AG (acute kidney injury) CAD (coronary artery disease) Paroxysmal atrial fibrillation Pulmonary embolism Obesity Dyslipidemia [facility] (current) use of insulin Respiratory failure COPD (chronic obstructive pulmonary disease) Surgical History History of carpal tunnel surgery History of cholecystectomy History of lobectomy of lung Status post tracheoplasty History of cardiac cath Family History Family History Mother No problems noted. Father No problems noted. Brother Substance use disorder Brother Substance use disorder Social History Social History Household Members: Children Household Members Other:: 2 Housing: House Do you presently have visiting nurse or other home services: Yes ([facility] every 2 wks.) Alcohol intake: former Patient Tobacco Use Status: Former Tobacco user Tobacco use type: Cigarette Cigarettes Per Day: 10 Years Smoked: 3 Smoked in Last 30 Days: No e-Cigarette/Vaping Use: Never Used Second Hand Smoke Exposure: No Use of substances other than those prescribed or required for medical reasons: No Advance Directives: Yes Advance Directives on File: Yes Advance Directives Date on File: 06/29/23 Do you have a plan to hurt others: No Plan service: No Current occupational status: retired Cognitive needs: No Hearing needs: No Vision needs: No Physical Exam 2 Vital Signs: Vital Signs: Last Vital Signs Temp 98.2 F 05/16/24 22:00 Pulse 96 05/16/24 22:00 Resp 16 05/16/24 22:00 BP 140/55 H 05/16/24 22:00 Pulse Ox 97 05/16/24 22:00 O2 Del Method Room Air 05/16/24 22:00 BMI result Body Mass Index 35.2 Appearance: Alert.?Oriented to person, place and time. No acute distress.?Normal affect. Eyes: Pupils equal, round and reactive to light.? ENT: Pharynx normal.?? Neck: Normal inspection.? Neck supple.?? CVS: Heart sounds normal. Tachycardic? Pulses normal.?? Respiratory: No respiratory distress.? Lung sounds with inspiratory and expiratory wheezing?? Abdomen: Soft and non-tender. Normoactive bowel sounds.?? Skin: Skin warm and dry.? Normal skin color.? Extremities: No lower extremity edema.? No calf ttp? Neuro: Moves all extremities spontaneously. Sensation intact bilaterally. Ambulates with normal steady gait. Course Reevaluation(s) Reevaluation #1: Patient's daughter is at bedside, both patient and daughter feel as though she is not well enough to return home. With ambulatory O2 trial she is significantly dyspneic, tachy to 115-120, with O2 saturation 90-92%. She states that despite taking prednisone for the past 6 days she has noticed no improvement. Patient and daughter feel strongly about hospital admission spoke with hospitalist, Dr. Garcia for admission Medications Administered Discontinued Medications Generic Name Dose Route Start Last Admin Trade Name Jamilq PRN Reason Stop Dose Admin Acetaminophen 975 mg 05/16/24 21:25 05/16/24 22:07 Acetaminophen 325 Mg Tablet PO 05/16/24 21:26 975 mg ONCE ONE Administration Albuterol/Ipratropium 3 ml 05/16/24 17:23 05/16/24 17:27 Albuterol/Iprat 2.5/0.5mg 3 Ml Ampul.Neb INHALE 05/16/24 17:24 3 ml ONCE ONE Administration Albuterol/Ipratropium 3 ml 05/16/24 17:25 05/16/24 17:28 Albuterol/Iprat 2.5/0.5mg 3 Ml Ampul.Neb INHALE 05/16/24 17:26 Not Given ONCE ONE Ceftriaxone Sodium 1 gm/ 50 mls @ 100 mls/hr 05/16/24 17:10 05/16/24 18:29 Sodium Chloride IV 05/16/24 17:39 Infused ONCE ONE Infusion Methylprednisolone Sodium Succinate 80 mg 05/16/24 17:10 05/16/24 17:53 Methylprednisolone Sod Succ 125 Mg/2 Ml Vial IVPUSH 05/16/24 17:11 80 mg ONCE ONE Administration Medical Decision Making Medical Decision Making MDM Narrative: Patient is a 73-year-old female with past medical history of NSTEMI, CAD, moderate aortic valve stenosis, anemia, atrial fibrillation, 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 She appears mildly uncomfortable at the time of my evaluation, she is mildly tachycardic 107 but is afebrile without tachypnea, dyspnea, or room air hypoxia. Her history is concerning for likely pleuritic pain in light of her recent illness. However given her past medical history and change to the frequency of her chest pain plan to rule out ACS. She has already taken 40 mg of prednisone today, will order for additional Solu- Medrol 80 mg IV, and DuoNeb nebulizer as her lung sounds are diminished bilaterally. Will cover prophylactically with Rocephin Will obtain CBC to evaluate for leukocytosis/ anemia, CMP and lipase to evaluate for abnormal electrolytes /abnormal renal function/ abnormal hepatic/biliary function, EKG and troponin to evaluate for ischemia/ACS. Chest x-ray to evaluate for consolidation/ infiltrate/ mass/ pulmonary congestion , and viral panel 17:10 - review of serum labs indicating leukocytosis of 15,000 with left shift, microcytic anemia that does not meet transfusion criteria, no thrombocytopenia. Leukocytosis may be in part due to her recent URI/oral corticosteroid usage. However given her history and current symptoms will obtain blood cultures and lactic acid to evaluate for sepsis. I reviewed CXR, do not see pneumonia, pending radiologist's interpretation. Labs without electrolyte abnormality, no AG, non-anion gap hyperglycemia, LFTs within normal range. High sensitive troponin within normal range at 3.3, EKG nonischemic, no NSTEMI. BNP 72, no associated feel edema pulmonary congestion on CXR to suggest CHF. Viral panel negative Differential Diagnosis Differential Diagnoses: The differential diagnosis associated with the presentation includes (See narrative above) Admission/Observation Consideration of admission/observation: Escalation of care including admission/observation considered (See narrative above and course narrative for further detail) Lab Data MDM Lab Attestation statement: I reviewed the patient's lab results. (See narrative above) 05/16/24 16:24 05/16/24 16:24 Labs: Lab Results 05/16/24 05/16/24 05/16/24 Range/Units 16:24 17:42 17:43 WBC 15.0 H (4.8-10.8) X10*3/uL RBC 4.53 (4.20-5.50) X10*6/uL Hgb 11.6 L (12.0-16.0) g/dl Hct 36.1 L (37.0-47.0) % MCV 79.7 L (80.0-98.0) fL MCH 25.6 L (27.0-33.0) pg MCHC 32.1 (31.0-35.0) g/dl RDW 21.1 H (11.0-16.0) % Plt Count 310 (160-400) X10*3/uL MPV 9.6 (9.4-12.3) fL Immature Gran % (Auto) 0.5 H (0.0-0.4) % Neut % (Auto) 90.0 H (45-73) % Lymph % (Auto) 6.1 L (20-40) % [place] % (Auto) 3.2 (2-11) % Eos % (Auto) 0.0 (0-4) % Baso % (Auto) 0.2 (0-2) % Lymph # (Auto) 0.9 L (1.2-4.9) X10*3/uL [place] # (Auto) 0.5 (0.1-1.2) X10*3/uL Eos # (Auto) 0.0 (0.0-0.4) X10*3/uL Baso # (Auto) 0.0 (0.0-0.2) X10*3/uL Abs Immat Gran (auto) 0.07 H (0.00-0.03) X10*3/uL Absolute Neuts (auto) 13.5 H (2.0-8.3) x10*3/uL Absolute Nucleated RBC 0.000 (0.0-0.012) X10*3/uL Nucleated RBC % (auto) 0.0 (0.0-0.2) /100WBC Hold Purple Top SEE NOTE Sodium 136 (135-145) mmol/L Potassium 4.3 (3.3-5.1) mmol/L Chloride 104 (96-108) mmol/L Carbon Dioxide 23 (22-29) mmol/L Anion Gap 13 (12-20) BUN 33 H (9-16) mg/dL Creatinine 1.19 (0.5-1.4) mg/dL Estim Creat Clear Calc 45.1 Estimated GFR 44 Random Glucose 272 H (60-115) mg/dL Lactic Acid 1.9 (0.5-2.0) mmol/L Calcium 8.8 (8.4-10.2) mg/dL Total Bilirubin 0.2 (0.0-1.0) mg/dL AST 8 (5-31) U/L ALT 13 (0-31) U/L Alkaline Phosphatase 96 (39-117) U/L Troponin I High Sens 3.3 (<3.5-17.0) ng/L B-Natriuretic Peptide 72 (<100) pg/mL Total Protein 6.9 (6.5-8.0) g/dL Albumin 3.9 (3.5-5.0) g/dL Influenza Type A (PCR) NEGATIVE (Negative) Influenza Type B (PCR) NEGATIVE (Negative) RSV RNA Qual (PCR) NEGATIVE (Negative) SARS-CoV-2 RNA (RT-PCR) NEGATIVE (Negative) Independent Interpretation I performed an independent interpretation of an: EKG and Plain X-Ray (See narrative above) Interpretation: Rate: 105 Rhythm:? Sinus tachycardia Normal P waves.? Normal JASMYN.?? Normal QRS complex.?? ST T wave :??No ST elevation, no ST depression qTC: 446 prior studies:? 12/2023 The study has been interpreted contemporaneously by me. Radiology Impression Discussion of test interpretation with radiology: I have reviewed the radiologist's reading. Radiologist Impression: FINDINGS: The heart and pulmonary vessels appear normal. There is mild tenting and elevation of the left hemidiaphragm. A chain suture line is present on the left indicative of partial pneumonectomy. Some chronic scarring again noted in the mid right lung and at the left lung base. No effusions are seen. Degenerative changes are present in the spine ACDF hardware is noted. XR/XR chest 1V IMPRESSION: No acute intrathoracic disease. Postop changes left lung. Independent Historian Clinical information obtained from an independent historian. History obtained from or confirmed by: EMS and Other (Daughter as per HPI) External Record Review External record reviewed: Outpatient record Discharge Plan Discharge Clinical Impression: Acute exacerbation of chronic obstructive pulmonary disease Patient Disposition: Admitted As Inpatient
[2024-05-16] MEDS: methylPREDNISolone Sod Succ 125 MG/2 ML VIAL 80 MG IVPUSH (17:53)
[2024-05-16] MEDS: cefTRIAXone sodium 1 GM in 0.9 % Sodium Chloride 50 ML IV (17:54)
[2024-05-16 18:01] LABS: Lactic Acid 1.9 mmol/L (0.5-2.0)
[2024-05-16 18:41] VITALS: BP 157/55; PULSE 104; RESP 15; TEMP 36.9; O2SAT 98
[2024-05-16 20:30] VITALS: PULSE 115; O2SAT 92
--- NOTE | 2024-05-16 21:47 | MHC.EDTECH ---
Late entry: 2030: Pt ambulated down jaquez of ED. Pt c/o shortness of breath almost immediately upon ambulating. Pts sat remained 92-94% and HR remained 112-115 the entire time. Pt able to get self back into bed. Call ban steven. STOCK BUYER Luis made aware.
[2024-05-16 22:00] VITALS: BP 140/55; PULSE 96; RESP 16; TEMP 36.8; O2SAT 97
--- NOTE | 2024-05-16 22:05 | P.HPHOSP_ITS ---
History of Present Illness Date of Service: 05/16/24 Chief Complaint: Dyspnea This is a 72-year-old female with pertinent history of insulin-dependent diabetes mellitus, CAD status post PCI, PE on Eliquis, essential hypertension, ALYSIA on CPAP, COPD not on home oxygen, mood disorder who presents to the emergency department for evaluation of dyspnea. Patient states her symptoms started 1 week prior to presentation. She has been having dyspnea which is worse with exertion, wheezing and nonproductive cough. Patient states due to the cough she started having chest pain and lower rib pain which is worse with cough. Patient was seen outpatient and completed course of p.o. steroids. No relief with home albuterol inhaler. Patient denies fever, chills, palpitations, abdominal pain, changes in urinary or bowel habits. In the emergency department, patient wheezing despite multiple DuoNeb treatments Review of Systems 2 Constitutional: Constitutional: Reports no additional constitutional complaints Cardiovascular: Cardiovascular: Reports chest pain with activity and Reports dyspnea on exertion Respiratory: Respiratory: Reports cough, Reports dyspnea on exertion and Reports wheezing Gastrointestinal: Gastrointestinal: Reports no additional gastrointestinal complaints Genitourinary: Genitourinary: Reports no additional female genitourinary complaints Allergic/Immunologic: Allergic/Immunologic: Reports wheezing [facility] Medical History Non-ST elevation [place] (NSTEMI) 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 Father No problems noted. Brother Substance use disorder Brother Substance use disorder Surgical History History of carpal tunnel surgery History of cholecystectomy History of lobectomy of lung Status post tracheoplasty History of cardiac cath Social History Household Members: Children Household Members Other:: 2 Housing: House Do you presently have visiting nurse or other home services: Yes ([facility]NA every 2 wks.) Alcohol intake: former Patient Tobacco Use Status: Former Tobacco user Tobacco use type: Cigarette Cigarettes Per Day: 10 Years Smoked: 3 Smoked in Last 30 Days: No e-Cigarette/Vaping Use: Never Used Second Hand Smoke Exposure: No Use of substances other than those prescribed or required for medical reasons: No Advance Directives: Yes Advance Directives on File: Yes Advance Directives Date on File: 06/29/23 Do you have a plan to hurt others: No Plan service: No Current occupational status: retired Cognitive needs: No Hearing needs: No Vision needs: No Meds Allergies Allergy/AdvReac Type Severity Reaction Status Date / Time Latex, Natural Rubber Allergy Severe blisters Verified 05/16/24 15:59 Sulfa (Sulfonamide Allergy Mild ITCHING, Verified 05/16/24 15:59 Antibiotics) rash [SULFA (SULFONAMIDE ANTIBIOTICS)] nystatin Allergy Unknown rash Verified 05/16/24 15:59 isosorbide [From Imdur] AdvReac Unknown HEADACHES, Verified 05/16/24 15:59 headache tizanidine AdvReac Unknown weakness, Verified 05/16/24 15:59 Hellucination Home Medications ?Medication ?Instructions ?Recorded ?Confirmed ?Last Taken ?Type albuterol sulfate 90 mcg/actuation 2 puff inhalation Q4H PRN 06/25/23 05/11/24 Unknown History aerosol inhaler (ProAir HFA) Shortness Of Breath cholecalciferol (vitamin D3) 25 25 mcg PO DAILY 08/11/23 05/11/24 11/27/23 History mcg (1,000 unit) tablet ipratropium 0.5 mg-albuterol 3 mg 3 ml inhalation BID PRN sob 08/11/23 05/11/24 Unknown History (2.5 mg base)/3 mL nebulization soln loratadine 10 mg tablet 10 mg PO DAILY PRN Allergy Symptoms 08/11/23 05/11/24 08/11/23 History atorvastatin 80 mg tablet 80 mg PO BEDTIME 11/28/23 05/11/24 11/27/23 History buspirone 5 mg tablet 5 mg PO BID 11/28/23 05/11/24 11/27/23 History furosemide 20 mg tablet 20 mg PO DAILY 11/28/23 05/11/24 11/27/23 History montelukast 10 mg tablet 10 mg PO BEDTIME 11/28/23 05/11/24 11/27/23 History insulin lispro 100 unit/mL 1 sliding scale dose subcut 12/02/23 05/11/24 Unknown History subcutaneous pen (Humalog KwikPen USEASDIRECTD (U-100) Insulin) pantoprazole 40 mg tablet,delayed 40 mg PO QAM 04/07/24 05/11/24 Unknown History release Physical Exam 2 Vital Signs and Narrative: Vital Signs: Last Vital Signs Temp 98.4 F 05/16/24 18:41 Pulse 115 H 05/16/24 20:30 Resp 15 05/16/24 18:41 BP 157/55 H 05/16/24 18:41 Pulse Ox 92 05/16/24 20:30 O2 Del Method Room Air 05/16/24 20:30 BMI result Body Mass Index 35.2 Elderly female lying in bed in mild distress Neck supple, no JVD, palpable chest pain+ Regular rate and rhythm, S1-S2 heard Bilateral wheezing without crackles Abdomen soft nontender, no guarding, no rigidity Patient is awake, alert and oriented to self, place, time and person ; no focal motor deficit Psych: Normal mood No pedal edema Results Labs 05/16/24 16:24 05/16/24 16:24 Labs: Laboratory Results - last 24 hr 05/16/24 05/16/24 05/16/24 16:24 17:42 17:43 MCV 79.7 L MCH 25.6 L MCHC 32.1 RDW 21.1 H Plt Count 310 MPV 9.6 Immature Gran % (Auto) 0.5 H Neut % (Auto) 90.0 H Lymph % (Auto) 6.1 L Power % (Auto) 3.2 Eos % (Auto) 0.0 Baso % (Auto) 0.2 Lymph # (Auto) 0.9 L Power # (Auto) 0.5 Eos # (Auto) 0.0 Baso # (Auto) 0.0 Abs Immat Gran (auto) 0.07 H Absolute Neuts (auto) 13.5 H Absolute Nucleated RBC 0.000 Nucleated RBC % (auto) 0.0 Hold Purple Top SEE NOTE Anion Gap 13 Estim Creat Clear Calc 45.1 Estimated GFR 44 Random Glucose 272 H Lactic Acid 1.9 Calcium 8.8 Total Bilirubin 0.2 AST 8 ALT 13 Alkaline Phosphatase 96 Troponin I High Sens 3.3 B-Natriuretic Peptide 72 Total Protein 6.9 Albumin 3.9 Influenza Type A (PCR) NEGATIVE Influenza Type B (PCR) NEGATIVE RSV RNA Qual (PCR) NEGATIVE SARS-CoV-2 RNA (RT-PCR) NEGATIVE Imaging Radiologist's Impressions: Impressions Chest X-Ray 05/16/24 16:13 IMPRESSION: No acute intrathoracic disease. Postop changes left lung. Electronically signed by: Isaías Ruiz MD 05/16/2024 07:27 PM EDT RP Assessment and Plan (1) COPD exacerbation: Status: Acute Plan This is a 72-year-old female with pertinent history of insulin-dependent diabetes mellitus, CAD status post PCI, PE on Eliquis, essential hypertension, ALYSIA on CPAP, COPD not on home oxygen, mood disorder, CKD who presents to the emergency department for evaluation of dyspnea. #. Acute respiratory distress due to acute exacerbation of COPD: Will admit patient with systemic steroids. Scheduled and p.r.n. DuoNebs. Continue home inhaler #. Insulin-dependent diabetes mellitus with hyperglycemia: Reducing home basal insulin. Initiating Accu-Cheks with sliding scale insulin #. Noncardiac chest pain, musculoskeletal in origin #. Leukocytosis due to steroid use. Tachypnea and tachycardia due to COPD exacerbation. No sepsis #. CKD: Creatinine at baseline #. CAD status post PCI: On high-intensity statin and antiplatelet agent #. Essential hypertension: Continue home antihypertensives #. ALYSIA: Continue CPAP at bedtime #. Mood disorder: Continue home mood stabilizers #. History of PE: On Eliquis DVT prophylaxis: Eliquis Full code Quality Stroke Does the patient have a stroke diagnosis?: No VTE Prior VTE?: No VTE Risk Level:: Medical - moderate - high VTE Device Contraindication: Treatment Not Indicated VTE Drug Contraindication: N/A - Med Ordered
[2024-05-16] MEDS: Acetaminophen 325 MG TABLET 975 MG PO (22:07)
[2024-05-16 23:44] LABS: Glucose, Whole Blood 258 mg/dL (60-115)
[2024-05-16 23:45] VITALS: BP 135/56; PULSE 87; RESP 16; TEMP 36.7; O2SAT 97
--- NOTE | 2024-05-16 23:46 | MHC.EDTECH ---
This pct assumed care of patient at 2315 ,vitals taken ,Patient comfortable watching television ,call cevallos within pt reach .
[2024-05-17] VITALS (10 sets, daily range): BP systolic 134–172; BP diastolic 54–70; PULSE 80–96; RESP 14–18; TEMP 36–36.8; O2SAT 95–99; BMI 33.9
[2024-05-17] MEDS: Insulin Glargine,Hum.rec.anlog 100 UNIT/ML 10 ML VIAL 20 UNIT SUBCUT (01:06)
[2024-05-17] MEDS: Apixaban 5 MG TABLET PO ×2 (01:06→19:49)
[2024-05-17] MEDS: 0.9 % Sodium Chloride Flush 3 ML SYRINGE IVFLUSH ×4 (01:07→19:52)
[2024-05-17] MEDS: Acetaminophen 325 MG TABLET 650 MG PO ×3 (04:01→19:49)
--- NOTE | 2024-05-17 05:05 | PC.NURSE ---
Juliocesar is alert and oriented x3, VSS. Patient medicated with Tylenol 650 mg PO for 4/10 pleuritic chest pain and headache. Patent reports she is independent with ambulation and ADL's, uses a walker on uneven surfaces. Patient currently sleeping in a stretcher bed, RR 16, even chest wall rise and fall, call cevallos in reach, plan of care ongoing.
[2024-05-17 05:57] LABS: Basophils Percent Auto 0.1 % (0-2); Hematocrit 36.3 % (37.0-47.0); Hemoglobin 11.6 g/dl (12.0-16.0); Imm Gran Pct Auto 0.7 % (0.0-0.4); Lymphocytes Absolute Auto 0.9 X10*3/uL (1.2-4.9); Lymphocytes Percent Auto 6.4 % (20-40); MANUAL DIFF FLAG SCAN; Mean Corpuscular Hemoglobin 25.5 pg (27.0-33.0); Mean Corpuscular Volume 79.8 fL (80.0-98.0); Mean Platelet Volume 9.8 fL (9.4-12.3); Monocytes Absolute Auto 0.4 X10*3/uL (0.1-1.2); Monocytes Percent Auto 2.7 % (2-11); Neutrophils Absolute Auto 12.9 x10*3/uL (2.0-8.3); Neutrophils Percent Auto 90.1 % (45-73); Platelet Count 314 X10*3/uL (160-400); Red Blood Count 4.55 X10*6/uL (4.20-5.50); Red Cell Distribution Width 21.1 % (11.0-16.0); SCAN SMEAR FLAG 1; White Blood Count 14.3 X10*3/uL (4.8-10.8)
[2024-05-17] MEDS: Ketorolac Tromethamine 15 MG/ML VIAL IVPUSH (06:00)
[2024-05-17 06:12] LABS: Anion Gap 13 (12-20); Blood Urea Nitrogen 38 mg/dL (9-16); Calcium 8.8 mg/dL (8.4-10.2); Carbon Dioxide 24 mmol/L (22-29); Chloride 104 mmol/L (96-108); Creatinine Clr Calc Pharmacy 39.5; Estimated Glomerular Filt Rate 38; Glucose Random 276 mg/dL (60-115); Potassium 4.3 mmol/L (3.3-5.1); Sodium 137 mmol/L (135-145)
[2024-05-17 07:35] LABS: Glucose, Whole Blood 222 mg/dL (60-115)
[2024-05-17] MEDS: Albuterol/Iprat 2.5/0.5MG 3 ML AMPUL.NEB INHALE ×4 (07:45→20:03)
[2024-05-17 07:46] LABS: SLIDE REVIEW VERIFIED
[2024-05-17] MEDS: methylPREDNISolone Sod Succ 40 MG/ML VIAL IVPUSH ×2 (07:49→19:47)
[2024-05-17] MEDS: Insulin Lispro 100 UNIT/ML 3 ML VIAL SUBCUT ×4 (07:49→19:52)
--- NOTE | 2024-05-17 10:54 | PHA.MEDREC ---
Pharmacy Consult ? Medication Reconciliation Pharmacy has completed the medication reconciliation, spoke to patient who was able to verify meds mostly when presented with the names.. was unsure about a couple like citalopram utlizied office visit notes and most recent claim history for that.
--- NOTE | 2024-05-17 11:26 | P.PNIM_ITS ---
Subjective Subjective Date of Service: 05/17/24 Review of Systems Follow-up COPD exacerbation Feeling better but still with mild expiratory wheezing and shortness to breath with ambulation Physical Exam 2 Vital Signs: Vital Signs: Last Vital Signs Temp 97.1 F 05/17/24 08:37 Pulse 90 05/17/24 11:18 Resp 18 05/17/24 11:18 BP 161/68 H 05/17/24 08:37 Pulse Ox 97 05/17/24 08:37 O2 Del Method Room Air 05/17/24 08:37 BMI result Body Mass Index 33.9 Appearing in no acute distress lung sounds expiratory wheezes heart regular rate rhythm, clear S1, S2 positive bowel sounds, abdomen is soft, nontender neuro patient is alert x3, no focal deficits Objective Data Active Medications Acetaminophen (Acetaminophen 325 Mg Tablet) 650 mg PO Q6H PRN PRN Reason: Pain, Mild (Pain Scale 1-3), fever or headache Last Admin: 05/17/24 04:01 Dose: 650 mg Documented By: LUIS CARLOS Albuterol/Ipratropium (Albuterol/Iprat 2.5/0.5mg 3 Ml Ampul.Neb) 3 ml INHALE RQ4H WHILE AWAKE [facility] Last Admin: 05/17/24 11:18 Dose: 3 ml Documented By: JENNY Albuterol/Ipratropium (Albuterol/Iprat 2.5/0.5mg 3 Ml Ampul.Neb) 3 ml INHALE Q4H PRN PRN Reason: Wheezing Benzonatate (Benzonatate 100 Mg Capsule) 200 mg PO TID PRN PRN Reason: Cough Calcium Carbonate (Calcium Carbonate 750 Mg Tab.Chew) 750 mg PO Q4H PRN PRN Reason: Heartburn Glucose (Glucose Gel 15 Gm Gel..Gram.) 15 gm PO Q15M PRN; Protocol PRN Reason: per Hypoglycemia Standing Ord. Glucose (Glucose Gel 15 Gm Gel..Gram.) 15 gm PO Q15M PRN; Protocol PRN Reason: per Hypoglycemia Standing Ord. Dextrose (D10) 250 mls @ 750 mls/hr IV Q15M PRN; Protocol PRN Reason: per Hypoglycemia Standing Ord. Dextrose (D10) 250 mls @ 750 mls/hr IV Q15M PRN; Protocol PRN Reason: per Hypoglycemia Standing Ord. Insulin Glargine (Insulin Glargine,Hum.Rec.Anlog 100 Unit/Ml 10 Ml Vial) 20 unit SUBCUT BEDTIME [facility] Last Admin: 05/17/24 01:06 Dose: 20 unit Documented By: LUIS CARLOS Insulin Human Lispro (Insulin Lispro 100 Unit/Ml 3 Ml Vial) 0 unit SUBCUT QIDACHS [facility]; Protocol Last Admin: 05/17/24 07:49 Dose: 4 unit Documented By: SAMI Magnesium Hydroxide (Milk Of Magnesia 30 Ml Oral.Susp) 30 ml PO DAILY PRN PRN Reason: Constipation Melatonin (Melatonin 3 Mg Tablet) 6 mg PO BEDTIME PRN PRN Reason: Insomnia Methylprednisolone Sodium Succinate (Methylprednisolone Sod Succ 40 Mg/Ml Vial) 40 mg IVPUSH Q12H [facility] Last Admin: 05/17/24 07:49 Dose: 40 mg Documented By: SAMI Ondansetron HCl (Ondansetron Hcl 4 Mg/2 Ml Vial) 4 mg IVPUSH Q8H PRN PRN Reason: Nausea and Vomiting Sodium Chloride (0.9 % Sodium Chloride Flush 3 Ml Syringe) 3 ml IVFLUSH QSHIFT [facility] Last Admin: 05/17/24 07:49 Dose: 3 ml Documented By: SAMI Labs 05/17/24 05:26 05/17/24 05:26 Labs: Laboratory Results - last 24 hr 05/16/24 05/16/24 05/16/24 16:24 17:42 17:43 MCV 79.7 L MCH 25.6 L MCHC 32.1 RDW 21.1 H Plt Count 310 MPV 9.6 Immature Gran % (Auto) 0.5 H Neut % (Auto) 90.0 H Lymph % (Auto) 6.1 L Kinney % (Auto) 3.2 Eos % (Auto) 0.0 Baso % (Auto) 0.2 Lymph # (Auto) 0.9 L Kinney # (Auto) 0.5 Eos # (Auto) 0.0 Baso # (Auto) 0.0 Abs Immat Gran (auto) 0.07 H Absolute Neuts (auto) 13.5 H Absolute Nucleated RBC 0.000 Nucleated RBC % (auto) 0.0 Smear Tech's Comments Hold Purple Top SEE NOTE Anion Gap 13 Estim Creat Clear Calc 45.1 Estimated GFR 44 POC Glucose Random Glucose 272 H Lactic Acid 1.9 Calcium 8.8 Total Bilirubin 0.2 AST 8 ALT 13 Alkaline Phosphatase 96 Troponin I High Sens 3.3 B-Natriuretic Peptide 72 Total Protein 6.9 Albumin 3.9 Influenza Type A (PCR) NEGATIVE Influenza Type B (PCR) NEGATIVE RSV RNA Qual (PCR) NEGATIVE SARS-CoV-2 RNA (RT-PCR) NEGATIVE 05/16/24 05/17/24 05/17/24 23:41 05:26 07:32 MCV 79.8 L MCH 25.5 L MCHC 32.0 RDW 21.1 H Plt Count 314 MPV 9.8 Immature Gran % (Auto) 0.7 H Neut % (Auto) 90.1 H Lymph % (Auto) 6.4 L Kinney % (Auto) 2.7 Eos % (Auto) 0.0 Baso % (Auto) 0.1 Lymph # (Auto) 0.9 L Kinney # (Auto) 0.4 Eos # (Auto) 0.0 Baso # (Auto) 0.0 Abs Immat Gran (auto) 0.10 H Absolute Neuts (auto) 12.9 H Absolute Nucleated RBC 0.000 Nucleated RBC % (auto) 0.0 Smear Tech's Comments VERIFIED Hold Purple Top Anion Gap 13 Estim Creat Clear Calc 39.5 Estimated GFR 38 POC Glucose 258 H 222 H Random Glucose 276 H Lactic Acid Calcium 8.8 Total Bilirubin AST ALT Alkaline Phosphatase Troponin I High Sens B-Natriuretic Peptide Total Protein Albumin Influenza Type A (PCR) Influenza Type B (PCR) RSV RNA Qual (PCR) SARS-CoV-2 RNA (RT-PCR) Assessment and Plan (1) COPD exacerbation: Status: Acute Plan This is a 72-year-old female with pertinent history of insulin-dependent diabetes mellitus, CAD status post PCI, PE on Eliquis, essential hypertension, ALYSIA on CPAP, COPD not on home oxygen, mood disorder, CKD who presents to the emergency department for evaluation of dyspnea. Acute respiratory distress due to acute exacerbation of COPD systemic steroids. Scheduled and p.r.n. DuoNebs. Continue home inhalers Supplemental oxygen as needed Insulin-dependent diabetes mellitus with hyperglycemia Reducing home basal insulin. Initiating Accu-Cheks with sliding scale insulin Noncardiac chest pain musculoskeletal in origin Leukocytosis due to steroid use. Tachypnea and tachycardia due to COPD exacerbation. No sepsis CKD 3b Creatinine at baseline CAD status post PCI On high-intensity statin and antiplatelet agent Essential hypertension Continue home antihypertensives ALYSIA Continue CPAP at bedtime Mood disorder Continue home mood stabilizers History of PE On Eliquis DVT prophylaxis: Eliquis Full code Quality Stroke Does the patient have a stroke diagnosis?: No VTE Prior VTE?: No VTE Risk Level:: Medical - moderate - high VTE Device Contraindication: Treatment Not Indicated VTE Drug Contraindication: N/A - Med Ordered
[2024-05-17 11:46] LABS: Glucose, Whole Blood 250 mg/dL (60-115)
[2024-05-17] MEDS: carvediloL 6.25 MG TABLET PO ×2 (11:55→19:47)
[2024-05-17] MEDS: lisinopriL 20 MG TABLET PO (11:55)
[2024-05-17] MEDS: Escitalopram Oxalate 10 MG TABLET PO (11:56)
[2024-05-17] MEDS: Celecoxib 200 MG CAPSULE PO ×2 (11:56→19:48)
[2024-05-17] MEDS: Clopidogrel Bisulfate 75 MG TABLET PO (11:56)
[2024-05-17] MEDS: Furosemide 20 MG TABLET PO (11:56)
[2024-05-17] MEDS: dilTIAZem HCL CD 300 MG CAP.ER.24H PO (12:00)
--- NOTE | 2024-05-17 12:51 | MHC.CM.PN ---
FULLER delivered. Patient lives in a home w/ daughter/grandson. Ambulates w/ walker PRN when outside. Otherwise independent. PCP Adrianne Leiva MD HCP on file and verified. DP: PT eval pending. Goal is home w/ PT services. Patient has used [facility] in the past and prefers to use them again. Referral sent via [employer]. CM will continue to follow.
[2024-05-17 16:46] LABS: Glucose, Whole Blood 288 mg/dL (60-115)
[2024-05-17 19:40] LABS: Glucose, Whole Blood 307 mg/dL (60-115)
[2024-05-17] MEDS: busPIRone HCl 5 MG TABLET PO (19:49)
[2024-05-17] MEDS: Montelukast Sodium 10 MG TABLET PO (19:49)
[2024-05-17] MEDS: Atorvastatin Calcium 80 MG TABLET PO (19:49)
[2024-05-17] MEDS: Melatonin 3 MG TABLET 6 MG PO (19:51)
[2024-05-17] MEDS: Insulin Glargine,Hum.rec.anlog 100 UNIT/ML 10 ML VIAL 25 UNIT SUBCUT (19:52)
[2024-05-18] VITALS (9 sets, daily range): BP systolic 148–170; BP diastolic 67–72; PULSE 67–87; RESP 14–20; TEMP 36.1–36.4; O2SAT 92–98
--- NOTE | 2024-05-18 | ECG_ITS ---
Test Reason : chest pain Blood Pressure : / mmHG Vent. Rate : 082 BPM Atrial Rate : 082 BPM P-R Int : 190 ms QRS Dur : 084 ms QT Int : 364 ms P-R-T Axes : 058 034 063 degrees QTc Int : 425 ms Sinus rhythm with Premature supraventricular complexes Otherwise normal ECG When compared with ECG of 16-MAY-2024 15:51, Premature supraventricular complexes are now Present Heart rate has decreased Referred By: Harmony Alvarado Electronically Signed By:JO MARTELL
[2024-05-18] MEDS: Acetaminophen 325 MG TABLET 650 MG PO ×4 (03:24→21:18)
[2024-05-18] MEDS: Omeprazole 20 MG CAPSULE.DR PO (06:20)
[2024-05-18] MEDS: methylPREDNISolone Sod Succ 40 MG/ML VIAL IVPUSH ×2 (07:55→21:18)
[2024-05-18] MEDS: Clopidogrel Bisulfate 75 MG TABLET PO (07:56)
[2024-05-18] MEDS: Insulin Lispro 100 UNIT/ML 3 ML VIAL SUBCUT ×4 (07:56→21:20)
[2024-05-18] MEDS: lisinopriL 20 MG TABLET PO (07:56)
[2024-05-18] MEDS: Apixaban 5 MG TABLET PO ×2 (07:56→21:20)
[2024-05-18] MEDS: Furosemide 20 MG TABLET PO (07:56)
[2024-05-18] MEDS: Cholecalciferol (Vitamin D3) 25 MCG TABLET PO (07:56)
[2024-05-18] MEDS: dilTIAZem HCL CD 300 MG CAP.ER.24H PO (07:56)
[2024-05-18] MEDS: busPIRone HCl 5 MG TABLET PO ×2 (07:56→21:19)
[2024-05-18] MEDS: carvediloL 6.25 MG TABLET PO ×2 (07:56→21:19)
[2024-05-18] MEDS: Celecoxib 200 MG CAPSULE PO ×2 (07:56→21:19)
[2024-05-18] MEDS: 0.9 % Sodium Chloride Flush 3 ML SYRINGE IVFLUSH ×3 (07:57→21:20)
[2024-05-18] MEDS: Escitalopram Oxalate 10 MG TABLET PO (07:58)
[2024-05-18 08:07] LABS: Glucose, Whole Blood 198 mg/dL (60-115)
[2024-05-18] MEDS: Albuterol/Iprat 2.5/0.5MG 3 ML AMPUL.NEB INHALE ×3 (08:25→19:59)
--- NOTE | 2024-05-18 09:43 | P.PNIM_ITS ---
Subjective Subjective Date of Service: 05/18/24 Review of Systems Follow-up COPD exacerbation Feeling better but still with mild expiratory wheezing and shortness to breath with ambulation Physical Exam 2 Vital Signs: Vital Signs: Last Vital Signs Temp 97.4 F 05/18/24 07:52 Pulse 87 05/18/24 09:21 Resp 18 05/18/24 08:25 BP 163/69 H 05/18/24 07:52 Pulse Ox 93 05/18/24 07:52 O2 Del Method Room Air 05/18/24 07:52 BMI result Body Mass Index 33.9 Appearing in no acute distress lung sounds mild exp wheezing heart regular rate rhythm, clear S1, S2 positive bowel sounds, abdomen is soft, nontender neuro patient is alert x3, no focal deficits Objective Data Active Medications Acetaminophen (Acetaminophen 325 Mg Tablet) 650 mg PO Q6H PRN PRN Reason: Pain, Mild (Pain Scale 1-3), fever or headache Last Admin: 05/18/24 09:31 Dose: 650 mg Documented By: KENNETH Albuterol/Ipratropium (Albuterol/Iprat 2.5/0.5mg 3 Ml Ampul.Neb) 3 ml INHALE RQ4H WHILE AWAKE [facility] Last Admin: 05/18/24 08:25 Dose: 3 ml Documented By: CANDACE Albuterol/Ipratropium (Albuterol/Iprat 2.5/0.5mg 3 Ml Ampul.Neb) 3 ml INHALE Q4H PRN PRN Reason: Wheezing Apixaban (Apixaban 5 Mg Tablet) 5 mg PO BID [facility] Last Admin: 05/18/24 07:56 Dose: 5 mg Documented By: KENNETH Atorvastatin Calcium (Atorvastatin Calcium 80 Mg Tablet) 80 mg PO BEDTIME [facility] Last Admin: 05/17/24 19:49 Dose: 80 mg Documented By: BLANCA Benzonatate (Benzonatate 100 Mg Capsule) 200 mg PO TID PRN PRN Reason: Cough Buspirone HCl (Buspirone Hcl 5 Mg Tablet) 5 mg PO BID [facility] Last Admin: 05/18/24 07:56 Dose: 5 mg Documented By: KENNETH Calcium Carbonate (Calcium Carbonate 750 Mg Tab.Chew) 750 mg PO Q4H PRN PRN Reason: Heartburn Carvedilol (Carvedilol 6.25 Mg Tablet) 6.25 mg PO BID [facility]; Protocol Last Admin: 05/18/24 07:56 Dose: 6.25 mg Documented By: KENNETH Celecoxib (Celecoxib 200 Mg Capsule) 200 mg PO BID [facility] Last Admin: 05/18/24 07:56 Dose: 200 mg Documented By: KENNETH Clopidogrel Bisulfate (Clopidogrel Bisulfate 75 Mg Tablet) 75 mg PO DAILY [facility] Last Admin: 05/18/24 07:56 Dose: 75 mg Documented By: KENNETH Diltiazem HCl (Diltiazem Hcl Cd 300 Mg Cap.Er.24h) 300 mg PO DAILY [facility]; Protocol Last Admin: 05/18/24 07:56 Dose: 300 mg Documented By: KENNETH Docusate Sodium (Docusate Sodium 100 Mg Capsule) 100 mg PO BID PRN PRN Reason: Constipation Escitalopram Oxalate (Escitalopram Oxalate 10 Mg Tablet) 10 mg PO DAILY [facility] Last Admin: 05/18/24 07:58 Dose: 10 mg Documented By: KENNETH Furosemide (Furosemide 20 Mg Tablet) 20 mg PO DAILY [facility]; Protocol Last Admin: 05/18/24 07:56 Dose: 20 mg Documented By: KENNETH Glucose (Glucose Gel 15 Gm Gel..Gram.) 15 gm PO Q15M PRN; Protocol PRN Reason: per Hypoglycemia Standing Ord. Dextrose (D10) 250 mls @ 750 mls/hr IV Q15M PRN; Protocol PRN Reason: per Hypoglycemia Standing Ord. Insulin Glargine (Insulin Glargine,Hum.Rec.Anlog 100 Unit/Ml 10 Ml Vial) 25 unit SUBCUT BEDTIME [facility] Last Admin: 05/17/24 19:52 Dose: 25 unit Documented By: BLANCA Comments: per Insulin Human Lispro (Insulin Lispro 100 Unit/Ml 3 Ml Vial) 0 unit SUBCUT QIDACHS [facility]; Protocol Last Admin: 05/18/24 07:56 Dose: 2 unit Documented By: KENNETH Lisinopril (Lisinopril 20 Mg Tablet) 20 mg PO DAILY [facility]; Protocol Last Admin: 05/18/24 07:56 Dose: 20 mg Documented By: KENNETH Loratadine (Loratadine 10 Mg Tablet) 10 mg PO DAILY PRN PRN Reason: Allergy Symptoms Magnesium Hydroxide (Milk Of Magnesia 30 Ml Oral.Susp) 30 ml PO DAILY PRN PRN Reason: Constipation Melatonin (Melatonin 3 Mg Tablet) 6 mg PO BEDTIME PRN PRN Reason: Insomnia Last Admin: 05/17/24 19:51 Dose: 6 mg Documented By: BLANCA Methylprednisolone Sodium Succinate (Methylprednisolone Sod Succ 40 Mg/Ml Vial) 40 mg IVPUSH Q12H [facility] Last Admin: 05/18/24 07:55 Dose: 40 mg Documented By: KENNETH Montelukast Sodium (Montelukast Sodium 10 Mg Tablet) 10 mg PO BEDTIME [facility] Last Admin: 05/17/24 19:49 Dose: 10 mg Documented By: BLANCA Omeprazole (Omeprazole 20 Mg Capsule.Dr) 20 mg PO DAILY@0630 [facility] Last Admin: 05/18/24 06:20 Dose: 20 mg Documented By: BLANCA Ondansetron HCl (Ondansetron Hcl 4 Mg/2 Ml Vial) 4 mg IVPUSH Q8H PRN PRN Reason: Nausea and Vomiting Sodium Chloride (0.9 % Sodium Chloride Flush 3 Ml Syringe) 3 ml IVFLUSH QSHIFT [facility] Last Admin: 05/18/24 07:57 Dose: 3 ml Documented By: KENNETH Vitamin D (Cholecalciferol (Vitamin D3) 25 Mcg Tablet) 25 mcg PO DAILY [facility] Last Admin: 05/18/24 07:56 Dose: 25 mcg Documented By: KENNETH Labs 05/17/24 05:26 05/17/24 05:26 Labs: Laboratory Results - last 24 hr 05/17/24 05/17/24 05/17/24 11:40 16:42 19:35 POC Glucose 250 H 288 H 307 H 05/18/24 07:47 POC Glucose 198 H Microbiology Microbiology Results: Microbiology 05/16/24 17:44 Blood Culture - Preliminary Blood - Venous No growth after 24 hours. 05/16/24 17:42 Blood Culture - Preliminary Blood - Venous No growth after 24 hours. Assessment and Plan (1) COPD exacerbation: Status: Acute Plan This is a 72-year-old female with pertinent history of insulin-dependent diabetes mellitus, CAD status post PCI, PE on Eliquis, essential hypertension, ALYSIA on CPAP, COPD not on home oxygen, mood disorder, CKD who presents to the emergency department for evaluation of dyspnea. Acute respiratory distress due to acute exacerbation of COPD systemic steroids. Scheduled and p.r.n. DuoNebs. Continue home inhalers Supplemental oxygen as needed Insulin-dependent diabetes mellitus with hyperglycemia ss, ada diet Noncardiac chest pain musculoskeletal in origin repeat cxr, check ddimer Leukocytosis due to steroid use. Tachypnea and tachycardia due to COPD exacerbation. No sepsis CKD 3b Creatinine at baseline CAD status post PCI On high-intensity statin and antiplatelet agent Essential hypertension Continue home antihypertensives ALYSIA Continue CPAP at bedtime Mood disorder Continue home mood stabilizers History of PE On Eliquis DVT prophylaxis: Eliquis Full code Quality Stroke Does the patient have a stroke diagnosis?: No VTE Prior VTE?: No VTE Risk Level:: Medical - moderate - high VTE Device Contraindication: Treatment Not Indicated VTE Drug Contraindication: N/A - Med Ordered
[2024-05-18 10:24] LABS: Anion Gap 13 (12-20); Blood Urea Nitrogen 53 mg/dL (9-16); Calcium 8.1 mg/dL (8.4-10.2); Carbon Dioxide 23 mmol/L (22-29); Chloride 102 mmol/L (96-108); Creatinine Clr Calc Pharmacy 39.9; Estimated Glomerular Filt Rate 39; Glucose Random 250 mg/dL (60-115); Potassium 4.4 mmol/L (3.3-5.1); Sodium 134 mmol/L (135-145)
[2024-05-18 10:31] LABS: B Type Natriuretic Peptide 34 pg/mL (<100)
[2024-05-18 11:25] LABS: Glucose, Whole Blood 246 mg/dL (60-115)
[2024-05-18] MEDS: Ketorolac Tromethamine 15 MG/ML VIAL IVPUSH (12:18)
[2024-05-18 12:38] LABS: Troponin-I High Sensitivity < 2.7 ng/L (<3.5-17.0)
--- NOTE | 2024-05-18 13:00 | MHC.CM.PN ---
Patient now admitted inpatient. IMM delivered. [facility] has accepted for PT on dc. CM will continue to follow.
[2024-05-18 16:02] LABS: Glucose, Whole Blood 297 mg/dL (60-115)
[2024-05-18 20:17] LABS: Glucose, Whole Blood 254 mg/dL (60-115)
[2024-05-18] MEDS: Melatonin 3 MG TABLET 6 MG PO (21:18)
[2024-05-18] MEDS: Atorvastatin Calcium 80 MG TABLET PO (21:19)
[2024-05-18] MEDS: Montelukast Sodium 10 MG TABLET PO (21:19)
[2024-05-18] MEDS: Insulin Glargine,Hum.rec.anlog 100 UNIT/ML 10 ML VIAL 25 UNIT SUBCUT (21:20)
[2024-05-19] VITALS (10 sets, daily range): BP systolic 141–161; BP diastolic 63–68; PULSE 64–89; RESP 12–18; TEMP 36–36.4; O2SAT 93–98
[2024-05-19] MEDS: Omeprazole 20 MG CAPSULE.DR PO (06:09)
[2024-05-19 07:29] LABS: Glucose, Whole Blood 195 mg/dL (60-115)
[2024-05-19] MEDS: Albuterol/Iprat 2.5/0.5MG 3 ML AMPUL.NEB INHALE ×4 (07:59→19:42)
[2024-05-19] MEDS: Insulin Lispro 100 UNIT/ML 3 ML VIAL SUBCUT ×4 (08:00→20:39)
[2024-05-19] MEDS: Cholecalciferol (Vitamin D3) 25 MCG TABLET PO (08:01)
[2024-05-19] MEDS: methylPREDNISolone Sod Succ 40 MG/ML VIAL IVPUSH (08:01)
[2024-05-19] MEDS: Escitalopram Oxalate 10 MG TABLET PO (08:01)
[2024-05-19] MEDS: Clopidogrel Bisulfate 75 MG TABLET PO (08:01)
[2024-05-19] MEDS: dilTIAZem HCL CD 300 MG CAP.ER.24H PO (08:01)
[2024-05-19] MEDS: Celecoxib 200 MG CAPSULE PO ×2 (08:01→20:40)
[2024-05-19] MEDS: Acetaminophen 325 MG TABLET 650 MG PO ×3 (08:01→20:40)
[2024-05-19] MEDS: Furosemide 20 MG TABLET PO (08:02)
[2024-05-19] MEDS: lisinopriL 20 MG TABLET PO (08:02)
[2024-05-19] MEDS: busPIRone HCl 5 MG TABLET PO ×2 (08:02→20:40)
[2024-05-19] MEDS: carvediloL 6.25 MG TABLET PO ×2 (08:02→20:40)
[2024-05-19] MEDS: Apixaban 5 MG TABLET PO ×2 (08:02→20:40)
[2024-05-19] MEDS: 0.9 % Sodium Chloride Flush 3 ML SYRINGE IVFLUSH ×3 (08:03→20:40)
--- NOTE | 2024-05-19 10:29 | P.PNIM_ITS ---
Subjective Subjective Date of Service: 05/19/24 Interval History: seen and examined this AM reports feeling unwell; breathing improved but reports abodminal pain reports no BM thus far denies cp/anginal symptoms Review of Systems Negative except HPI/interval history. Physical Exam 2 Vital Signs: Vital Signs: Last Vital Signs Temp 96.8 F 05/19/24 07:24 Pulse 64 05/19/24 08:00 Resp 18 05/19/24 08:00 BP 145/63 H 05/19/24 07:24 Pulse Ox 97 05/19/24 07:24 O2 Del Method Room Air 05/19/24 07:24 BMI result Body Mass Index 33.9 Const: Other: General - no acute distress, appears comfortable Cardiovascular - regular rate and rhythm, S1-S2 Lungs - improving air entry; mild scattered wheezing Abdomen - soft and mild epigastric TTP without rebound; mild distension epigastric region Extremities - no edema bilaterally Neuro - awake and alert, no focal deficits Objective Data Active Medications Acetaminophen (Acetaminophen 325 Mg Tablet) 650 mg PO Q6H PRN PRN Reason: Pain, Mild (Pain Scale 1-3), fever or headache Last Admin: 05/19/24 08:01 Dose: 650 mg Documented By: KENNETH Albuterol/Ipratropium (Albuterol/Iprat 2.5/0.5mg 3 Ml Ampul.Neb) 3 ml INHALE RQ4H WHILE AWAKE [facility] Last Admin: 05/19/24 07:59 Dose: 3 ml Documented By: TUAN Albuterol/Ipratropium (Albuterol/Iprat 2.5/0.5mg 3 Ml Ampul.Neb) 3 ml INHALE Q4H PRN PRN Reason: Wheezing Apixaban (Apixaban 5 Mg Tablet) 5 mg PO BID [facility] Last Admin: 05/19/24 08:02 Dose: 5 mg Documented By: KENNETH Atorvastatin Calcium (Atorvastatin Calcium 80 Mg Tablet) 80 mg PO BEDTIME [facility] Last Admin: 05/18/24 21:19 Dose: 80 mg Documented By: BLANCA Benzonatate (Benzonatate 100 Mg Capsule) 200 mg PO TID PRN PRN Reason: Cough Buspirone HCl (Buspirone Hcl 5 Mg Tablet) 5 mg PO BID [facility] Last Admin: 05/19/24 08:02 Dose: 5 mg Documented By: KENNETH Calcium Carbonate (Calcium Carbonate 750 Mg Tab.Chew) 750 mg PO Q4H PRN PRN Reason: Heartburn Carvedilol (Carvedilol 6.25 Mg Tablet) 6.25 mg PO BID [facility]; Protocol Last Admin: 05/19/24 08:02 Dose: 6.25 mg Documented By: KENNETH Celecoxib (Celecoxib 200 Mg Capsule) 200 mg PO BID [facility] Last Admin: 05/19/24 08:01 Dose: 200 mg Documented By: KENNETH Clopidogrel Bisulfate (Clopidogrel Bisulfate 75 Mg Tablet) 75 mg PO DAILY [facility] Last Admin: 05/19/24 08:01 Dose: 75 mg Documented By: KENNETH Diltiazem HCl (Diltiazem Hcl Cd 300 Mg Cap.Er.24h) 300 mg PO DAILY [facility]; Protocol Last Admin: 05/19/24 08:01 Dose: 300 mg Documented By: KENNETH Docusate Sodium (Docusate Sodium 100 Mg Capsule) 100 mg PO BID PRN PRN Reason: Constipation Escitalopram Oxalate (Escitalopram Oxalate 10 Mg Tablet) 10 mg PO DAILY [facility] Last Admin: 05/19/24 08:01 Dose: 10 mg Documented By: KENNETH Furosemide (Furosemide 20 Mg Tablet) 20 mg PO DAILY [facility]; Protocol Last Admin: 05/19/24 08:02 Dose: 20 mg Documented By: KENNETH Glucose (Glucose Gel 15 Gm Gel..Gram.) 15 gm PO Q15M PRN; Protocol PRN Reason: per Hypoglycemia Standing Ord. Dextrose (D10) 250 mls @ 750 mls/hr IV Q15M PRN; Protocol PRN Reason: per Hypoglycemia Standing Ord. Insulin Glargine (Insulin Glargine,Hum.Rec.Anlog 100 Unit/Ml 10 Ml Vial) 25 unit SUBCUT BEDTIME [facility] Last Admin: 05/18/24 21:20 Dose: 25 unit Documented By: BLANCA Insulin Human Lispro (Insulin Lispro 100 Unit/Ml 3 Ml Vial) 0 unit SUBCUT QIDACHS [facility]; Protocol Last Admin: 05/19/24 08:00 Dose: 2 unit Documented By: KENNETH Lisinopril (Lisinopril 20 Mg Tablet) 20 mg PO DAILY [facility]; Protocol Last Admin: 05/19/24 08:02 Dose: 20 mg Documented By: KENNETH Loratadine (Loratadine 10 Mg Tablet) 10 mg PO DAILY PRN PRN Reason: Allergy Symptoms Lorazepam (Lorazepam 0.5 Mg Tablet) 0.25 mg PO Q12H PRN PRN Reason: Anxiety Magnesium Hydroxide (Milk Of Magnesia 30 Ml Oral.Susp) 30 ml PO DAILY PRN PRN Reason: Constipation Melatonin (Melatonin 3 Mg Tablet) 6 mg PO BEDTIME PRN PRN Reason: Insomnia Last Admin: 05/18/24 21:18 Dose: 6 mg Documented By: BLANCA Methylprednisolone Sodium Succinate (Methylprednisolone Sod Succ 40 Mg/Ml Vial) 40 mg IVPUSH Q12H [facility] Last Admin: 05/19/24 08:01 Dose: 40 mg Documented By: KENNETH Montelukast Sodium (Montelukast Sodium 10 Mg Tablet) 10 mg PO BEDTIME [facility] Last Admin: 05/18/24 21:19 Dose: 10 mg Documented By: BLANCA Omeprazole (Omeprazole 20 Mg Capsule.) 20 mg PO DAILY@0630 [facility] Last Admin: 05/19/24 06:09 Dose: 20 mg Documented By: BLANCA Ondansetron HCl (Ondansetron Hcl 4 Mg/2 Ml Vial) 4 mg IVPUSH Q8H PRN PRN Reason: Nausea and Vomiting Sodium Chloride (0.9 % Sodium Chloride Flush 3 Ml Syringe) 3 ml IVFLUSH QSHIFT [facility] Last Admin: 05/19/24 08:03 Dose: 3 ml Documented By: KENNETH Vitamin D (Cholecalciferol (Vitamin D3) 25 Mcg Tablet) 25 mcg PO DAILY [facility] Last Admin: 05/19/24 08:01 Dose: 25 mcg Documented By: KENNETH Labs 05/17/24 05:26 05/18/24 10:02 Labs: Laboratory Results - last 24 hr 05/18/24 05/18/24 05/18/24 10:02 11:09 15:55 POC Glucose 246 H 297 H Troponin I High Sens < 2.7 B-Natriuretic Peptide 34 05/18/24 05/19/24 20:10 07:21 POC Glucose 254 H 195 H Troponin I High Sens B-Natriuretic Peptide Microbiology Microbiology Results: Microbiology 05/16/24 17:44 Blood Culture - Preliminary Blood - Venous No growth after 48 hours. 05/16/24 17:42 Blood Culture - Preliminary Blood - Venous No growth after 48 hours. Assessment and Plan (1) COPD exacerbation: Status: Acute Plan This is a 72-year-old female with pertinent history of insulin-dependent diabetes mellitus, CAD status post PCI, PE on Eliquis, essential hypertension, ALYSIA on CPAP, COPD not on home oxygen, mood disorder, CKD who presents to the emergency department for evaluation of dyspnea. Acute respiratory distress due to acute exacerbation of COPD slowly improving will start to wean IV steroids and transition to oral Scheduled and p.r.n. DuoNebs. Continue home inhalers not hypoxic Insulin-dependent diabetes mellitus with hyperglycemia ss, ada diet Noncardiac chest pain / epigastric pain trop/EKG reassuring question pain related to constipation vs mild gastritis -- on PPI, will continue the same; give miralax (reports no BM) Leukocytosis due to steroid use. Tachypnea and tachycardia due to COPD exacerbation. No sepsis CKD 3b Creatinine at baseline CAD status post PCI On high-intensity statin and antiplatelet agent Essential hypertension Continue home antihypertensives ALYSIA Continue CPAP at bedtime Mood disorder Continue home mood stabilizers History of PE On Eliquis DVT prophylaxis: Eliquis Full code Reason for on going hospitalization: pt improved from respiratory perspective, but on going epigastric pain requiring further eval/monitoring Quality Stroke Does the patient have a stroke diagnosis?: No VTE Prior VTE?: No VTE Risk Level:: Medical - moderate - high VTE Device Contraindication: Treatment Not Indicated VTE Drug Contraindication: N/A - Med Ordered
[2024-05-19 11:20] LABS: Glucose, Whole Blood 305 mg/dL (60-115)
--- NOTE | 2024-05-19 11:56 | MHC.CM.PN ---
Per MD patient not medically cleared for dc. DCP remains home w/ [facility] for PT services. CM will continue to follow.
[2024-05-19 16:37] LABS: Glucose, Whole Blood 298 mg/dL (60-115)
[2024-05-19 20:17] LABS: Glucose, Whole Blood 343 mg/dL (60-115)
[2024-05-19] MEDS: Insulin Glargine,Hum.rec.anlog 100 UNIT/ML 10 ML VIAL 25 UNIT SUBCUT (20:39)
[2024-05-19] MEDS: Atorvastatin Calcium 80 MG TABLET PO (20:40)
[2024-05-19] MEDS: Montelukast Sodium 10 MG TABLET PO (20:40)
[2024-05-20] MEDS: Acetaminophen 325 MG TABLET 650 MG PO (02:33)
[2024-05-20 03:25] VITALS: BP 168/81; PULSE 73; RESP 18; TEMP 36.2; O2SAT 98
[2024-05-20] MEDS: Omeprazole 20 MG CAPSULE.DR PO (05:57)
[2024-05-20 07:13] VITALS: BP 159/70; PULSE 72; RESP 17; TEMP 36.6; O2SAT 94
[2024-05-20 07:34] LABS: Glucose, Whole Blood 90 mg/dL (60-115)
[2024-05-20 08:01] VITALS: PULSE 83; RESP 18; O2SAT 92
[2024-05-20] MEDS: Albuterol/Iprat 2.5/0.5MG 3 ML AMPUL.NEB INHALE ×2 (08:04→11:24)
--- NOTE | 2024-05-20 08:16 | P.DS_ITS ---
DS: Providers Provider Date of Service: 05/20/24 Date of admission: 05/16/24 22:02 Primary care physician: Amanda Leiva MD DS: Diagnosis Discharge Diagnosis (1) COPD exacerbation: Status: Acute DS: Summary Hospital Course Hospital Course: History and physical as per admitting provider. This is a 72-year-old female with pertinent history of insulin-dependent diabetes mellitus, CAD status post PCI, PE on Eliquis, essential hypertension, ALYSIA on CPAP, COPD not on home oxygen, mood disorder who presents to the emergency department for evaluation of dyspnea. Patient states her symptoms started 1 week prior to presentation. She has been having dyspnea which is worse with exertion, wheezing and nonproductive cough. Patient states due to the cough she started having chest pain and lower rib pain which is worse with cough. Patient was seen outpatient and completed course of p.o. steroids. No relief with home albuterol inhaler. Patient denies fever, chills, palpitations, abdominal pain, changes in urinary or bowel habits. In the emergency department, patient wheezing despite multiple DuoNeb treatments 73-year-old woman treated for acute respiratory distress due to acute exacerbation of COPD. She was treated initially with IV Solu-Medrol and transfer to oral. She will complete 3 more days prednisone at home. She was on scheduled and as needed updraft DuoNeb treatments with good effect. She had no hypoxia and has not required any oxygen. She did have some episodes of noncardiac chest pain that were also thought to be epigastric, she has had this issue for many years even going back to 2020 she has had complaints of abdominal pain, she had an EGD in November of 2023 which showed esophagitis. 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 At this point patient will be discharged home, she is in agreement with this. Diabetes mellitus type 2. Continue home medications Leukocytosis secondary to steroid use CKD 3B creatinine at baseline Coronary artery disease status post PCI. On high-intensity statin and antiplatelet Hypertension . Continue antihypertensives Obstructive sleep apnea. Continue CPAP Mental health. Continue mood stabilizers History of PE. Continue Eliquis Time Attestation Discharge Coordination Time (in mins): 32 Quality: Safe Use of Opioids Does Pt have an Active Cancer Diagnosis on the Problem List?: No Quality: Stroke Does the patient have a stroke diagnosis?: No Physical Exam Vital Signs: Vital Signs: Last Vital Signs Temp 97.8 F 05/20/24 07:13 Pulse 83 05/20/24 08:01 Resp 18 05/20/24 08:01 BP 159/70 H 05/20/24 07:13 Pulse Ox 94 05/20/24 07:13 O2 Del Method Room Air 05/20/24 07:13 BMI result Body Mass Index 33.9 Appearing in no acute distress head is normocephalic atraumatic eyes pupils are PERRLA sclera is anicteric mouth throat mucous membranes are intact and moist neck is supple no lymphadenopathy, no JVD noted lung sounds are clear to auscultation heart regular rate rhythm, clear S1, S2 positive bowel sounds, abdomen is soft, nontender neuro patient is alert x3, no focal deficits DS: Data Data Completed and Pending Completed studies during hospitalization [Text1]: Procedures Assistance with Respiratory Ventilation, Less than 24 Consecutive Hours, Contin uous Positive Airway Pressure (08/29/23) Excision of Lower Esophagus, Via Natural or Artificial Opening Endoscopic, Diagnostic (11/28/23) Excision of Stomach, Pylorus, Via Natural or Artificial Opening Endoscopic, Diagnostic (11/28/23) Transfusion of Nonautologous Red Blood Cells into Peripheral Vein, Percutaneous Approach (11/28/23) Labs on day of discharge: Laboratory Results - last 24 hr 05/19/24 05/19/24 05/19/24 10:44 11:17 16:31 POC Glucose 305 H 298 H Troponin I High Sens 3.0 05/19/24 05/20/24 20:13 07:21 POC Glucose 343 H 90 Troponin I High Sens Preliminary micro results at discharge 05/16/24 17:44 Blood Culture - Preliminary Blood - Venous No growth after 48 hours. 05/16/24 17:42 Blood Culture - Preliminary Blood - Venous No growth after 48 hours. Discharge Plan Discharge Anticipated Discharge Date/Time: 05/20/24 08:13 Patient Disposition: Home, Self-Care Discharge Diagnosis: COPD exacerbation Referrals: Enmanuel KESSLER [Outside] - 3-5 Days ([facility] will call you to schedule home PT appointments) Amanda Leiva MD [Primary Care Provider] - 1 Week Discharge Medications: New prednisone 10 mg tablet 40 mg PO DIRECTED Qty: 12 0RF Rx Instructions: see taper instructions Continued Jardiance 25 mg tablet 25 mg PO DAILY Qty: 90 1RF diltiazem HCl 300 mg capsule,extended release 24 hr 300 mg PO DAILY Qty: 90 1RF Ozempic 2 mg/dose (8 mg/3 mL) pen injector 2 mg subcut QWEEK Qty: 3 3RF (DME) compr.stocking,thigh,reg,large Misc See Rx Instructions .Route Qty: 2 3RF Rx Instructions: Thigh High compression stockings 10-20mmHg insulin glargine [Lantus Solostar U-100 Insulin] 100 unit/mL (3 mL) insulin pen 25 unit subcut BEDTIME Qty: 15 1RF (DME) blood-glucose meter [OneTouch Verio Flex meter] Misc See Rx Instructions .Route Qty: 1 0RF Rx Instructions: As directed (DME) OneTouch Verio test strips Strip See Rx Instructions .Route Qty: 100 11RF Rx Instructions: Test blood sugar 3 times per day (DME) lancets [OneTouch Delica Plus Lancet] 30 gauge misc See Rx Instructions .Route Qty: 100 11RF Rx Instructions: Test blood sugar 3 times per day clopidogrel 75 mg tablet 75 mg PO DAILY Qty: 90 1RF carvedilol 6.25 mg tablet 6.25 mg PO BID 90 Days Qty: 180 3RF Rx Instructions: must administer with a meal/food (DME) FreeStyle Kelly 2 Sensor Kit See Rx Instructions .ROUTE .MEDSUPPLY Qty: 6 3RF Rx Instructions: As directed every 2 weeks (DME) [facility] See Rx Instructions .Route Qty: 1 0RF Rx Instructions: As directed loratadine 10 mg Tablet 10 mg PO DAILY PRN (Reason: Allergy Symptoms) cholecalciferol (vitamin D3) 25 mcg (1,000 unit) Tablet 25 mcg PO DAILY docusate sodium 100 mg Capsule 100 mg PO BID PRN (Reason: Constipation) Qty: 30 0RF acetaminophen 325 mg Tablet 650 mg PO Q6H PRN (Reason: pain) Qty: 30 0RF albuterol sulfate 90 mcg/actuation Hfa Aerosol Inhaler 2 puff INHALATION QID PRN (Reason: SOB/wheezing) citalopram 20 mg tablet 20 mg PO DAILY budesonide-formoterol [Symbicort] 160-4.5 mcg/actuation HFA aerosol inhaler 2 puff INHALATION BID PRN (Reason: SOB) buspirone 5 mg tablet 5 mg PO BID furosemide 20 mg tablet 20 mg PO DAILY montelukast 10 mg tablet 10 mg PO BEDTIME atorvastatin 80 mg tablet 80 mg PO BEDTIME insulin lispro [Humalog KwikPen Insulin] 100 unit/mL Insulin Pen 1 sliding scale dose SUBCUT USEASDIRECTD Patient Comments: ADDED PER DR. ORTIZ Rx Instructions: BG <111 0 units, 111-150 - 0 units, 151-200 2 units, 201-250 4 units, 251-300 6 units, 301-350 8 units, >350 10 units ipratropium-albuterol 0.5 mg-3 mg(2.5 mg base)/3 mL solution for nebulization 3 ml inhalation Q8H PRN (Reason: wheezing) Qty: 180 3RF Eliquis 5 mg tablet 5 mg PO BID Qty: 180 3RF pantoprazole 40 mg tablet,delayed release (DR/EC) 40 mg PO DAILY@0630 celecoxib [Celebrex] 200 mg capsule 200 mg PO BID 30 Days Qty: 60 3RF lisinopril 20 mg tablet 20 mg PO DAILY Qty: 90 1RF Rx Instructions: Dose increased Diet: Advance to usual diet Activity on Discharge: As tolerated Stand Alone Forms: Patient Portal Discharge page Print Language: Bhutanese Care Plan Goals: Complete prednisone as prescribed Health Concerns: COPD exacerbation Plan of Treatment: Follow-up with primary care provider as needed Take all medications as prescribed Assessment: See discharge summary Patient Instructions: COPD (Chronic Obstructive Pulmonary Disease) (GEN)
[2024-05-20] MEDS: polyethylene glycoL 3350 17 GM POWD.PACK PO (08:28)
[2024-05-20] MEDS: 0.9 % Sodium Chloride Flush 3 ML SYRINGE IVFLUSH (08:28)
[2024-05-20] MEDS: carvediloL 6.25 MG TABLET PO (08:29)
[2024-05-20] MEDS: Apixaban 5 MG TABLET PO (08:29)
[2024-05-20] MEDS: Cholecalciferol (Vitamin D3) 25 MCG TABLET PO (08:29)
[2024-05-20] MEDS: Celecoxib 200 MG CAPSULE PO (08:29)
[2024-05-20] MEDS: Escitalopram Oxalate 10 MG TABLET PO (08:29)
[2024-05-20] MEDS: Clopidogrel Bisulfate 75 MG TABLET PO (08:29)
[2024-05-20] MEDS: Furosemide 20 MG TABLET PO (08:29)
[2024-05-20] MEDS: dilTIAZem HCL CD 300 MG CAP.ER.24H PO (08:29)
[2024-05-20] MEDS: busPIRone HCl 5 MG TABLET PO (08:29)
[2024-05-20] MEDS: predniSONE 20 MG TABLET 40 MG PO (08:29)
[2024-05-20] MEDS: lisinopriL 20 MG TABLET PO (08:29)
[2024-05-20 10:39] LABS: Hematocrit 37.9 % (37.0-47.0); Hemoglobin 12.6 g/dl (12.0-16.0); Mean Corpuscular HGB Conc 33.2 g/dl (31.0-35.0); Mean Corpuscular Hemoglobin 26.4 pg (27.0-33.0); Mean Corpuscular Volume 79.5 fL (80.0-98.0); Mean Platelet Volume 9.5 fL (9.4-12.3); Platelet Count 291 X10*3/uL (160-400); Red Blood Count 4.77 X10*6/uL (4.20-5.50); Red Cell Distribution Width 21.2 % (11.0-16.0); White Blood Count 15.8 X10*3/uL (4.8-10.8)
[2024-05-20 10:42] LABS: D Dimer High Sensitivity < 150 NG/ML
[2024-05-20 10:45] LABS: Anion Gap 12 (12-20); Blood Urea Nitrogen 42 mg/dL (9-16); Calcium 8.6 mg/dL (8.4-10.2); Carbon Dioxide 24 mmol/L (22-29); Chloride 102 mmol/L (96-108); Creatinine Clr Calc Pharmacy 44.6; Estimated Glomerular Filt Rate 45; Glucose Random 141 mg/dL (60-115); Potassium 4.4 mmol/L (3.3-5.1); Sodium 134 mmol/L (135-145)
[2024-05-20 11:25] VITALS: PULSE 88; RESP 14; O2SAT 93
[2024-05-20 11:25] LABS: Glucose, Whole Blood 147 mg/dL (60-115)
[2024-05-20 12:11] LABS: Appearance Urine Clear; Color Urine Yellow; Glucose Urine UA Negative (Negative); Leukocyte Esterase Urine Negative (Negative); Nitrite Urine Negative (Negative); Urine Blood Negative (Negative); Urine Ketones Negative (Negative); Urine Protein Negative (Neg-Trace)
--- NOTE | 2024-05-20 13:14 | MHC.CM.PN ---
PT CLEARED TO DC HOME TODAY WITH [facility] IS AWARE OF DC AND WILL PROVIDE SOC WEDNESDAY OR WEDNESDAY PT IS AWARE [facility] WILL CONTACT HER DIRECTLY TO PROVIDE EXACT TIME OF VISIT PTS DAUGHTER WILL TRANSPORT
--- NOTE | 2024-05-20 13:46 | W.MHC.F2F ---
Service Date Service Date: 05/20/24 Encounter Date of encounter: 05/20/24 Reasons for Services Signs and symptoms assessed: copd exacerbation epigastric pain Reason for physical therapy: home safety and mobility Homebound: Leaving the home is medically contraindicated at this time without the asist of a device and/or another person due th the listed conditions above and below. Reason homebound: weakness related to hospital stay Certification: Based on the above findings, I certify that this patient is confined to the home and needs intermittent nursing home care, physical therapy and/or speech therapy, or continues to need occupational therapy. The patient is under my care, and I have initiated the establishment of the plan of care. The patient will be followed by a physician who will periodically review the plan of care. Time Spent With Patient Time: Total time managing care of this patient today ____ minutes.
== END 2024-05-20 13:15 | disposition home or self-care (01) | DRG 190 ==
LOC: HO.ED 18:09 → HO.EDOVER 22:15 → HO.S3 05-17 07:03
PROVIDERS: Family Medicine; Nurse Practitioner Family; Admitting Provider Student in an Organized Health Care Education/Training Program; Emergency Provider Internal Medicine; PCP Internal Medicine; Visit Provider Nurse Practitioner Acute Care
DX: J44.1 Chronic obstructive pulmonary disease with (acute) exacerbation (principal); J96.01 Acute respiratory failure with hypoxia; I25.10 Atherosclerotic heart disease of native coronary artery without angina pectoris; Z95.5 Presence of coronary angioplasty implant and graft; Z86.711 Personal history of pulmonary embolism; N18.32 Chronic kidney disease, stage 3b; E11.65 Type 2 diabetes mellitus with hyperglycemia; E11.22 Type 2 diabetes mellitus with diabetic chronic kidney disease; I12.9 Hypertensive chronic kidney disease with stage 1 through stage 4 chronic kidney disease, or unspecified chronic kidney disease; G47.33 Obstructive sleep apnea (adult) (pediatric); F39 Unspecified mood [affective] disorder; Z87.891 Personal history of nicotine dependence; Z79.4 Long term (current) use of insulin; Z79.01 Long term (current) use of anticoagulants; Z79.02 Long term (current) use of antithrombotics/antiplatelets; Z79.899 Other long term (current) drug therapy
CPT/HCPCS: 0241U; 36415; 71045; 74018; 80048; 80053; 81003; 82947; 83605; 83880; 84484; 85025; 85027; 85379; 87040; 93005; 94640; 94660; 96365; 96375; 96376; 97116; 97162; 97530; 99221; 99285; J0696; J1885; J2919

== ENCOUNTER → 2024-05-16 22:02 | Outpatient (BNV) | payer MEDICARE, SELFPAY | PROVIDERS: Admitting Provider Student in an Organized Health Care Education/Training Program; Emergency Provider Internal Medicine; PCP Internal Medicine; Visit Provider Student in an Organized Health Care Education/Training Program | DX: J44.1 Chronic obstructive pulmonary disease with (acute) exacerbation (principal) | CPT/HCPCS: 99222; 99232; 99239; G0180 ==

== ENCOUNTER 2024-05-26 11:10 | Inpatient (IN) | payer MEDICARE, SELFPAY ==
[2024-05-26] VITALS (15 sets, daily range): BP systolic 122–158; BP diastolic 45–73; PULSE 93–119; RESP 14–49; TEMP 36.8–37; O2SAT 95–100; BMI 35.2
--- NOTE | ~2024-05-26 | XR_ITS ---
EXAMINATION: XR CHEST CLINICAL INFORMATION: Dyspnea. COMPARISON: Chest radiograph 05/18/2024. TECHNIQUE: Frontal view of the chest was obtained. FINDINGS: Stable appearance of the cardiomediastinal silhouette. Slightly increased asymmetric haziness overlying the left lateral lung base. Redemonstration of suture chain and surgical clip overlying the left upper lung field. Clear right lung. No pneumothorax. Partially seen cervical spinal fusion hardware. Chronic right-sided rib fractures. No acute osseous findings. XR/XR chest 1V IMPRESSION: Slightly increased asymmetric haziness overlying the left lateral lung base which could be related with atelectasis or trace layering pleural fluid. Infectious/inflammatory infiltrate cannot be excluded in the appropriate clinical context. Electronically signed by: Alessandra Padilla MD 05/26/2024 01:34 PM EDT
--- NOTE | ~2024-05-26 | CT_ITS ---
EXAMINATION: CT ANGIOGRAM CHEST CLINICAL INFORMATION: Shortness of breath. Hypercapnia. COMPARISON: August 17, 2023 TECHNIQUE: Multiple axial images were obtained through the chest after the administration of 65 mL of Omnipaque 350 intravenous contrast. Extensive vascular post-processing including two-dimensional and three-dimensional reformatted images were created and reviewed on an independent workstation. This CT examination was performed using dose optimization techniques as appropriate, variously including the following: *Automated exposure control *Adjustment of mA and/or kV according to patient size (this includes techniques or standardized protocols for targeted exams where dose is matched to indication/reason for exam; i.e. extremities or head) *Use of iterative reconstruction technique DLP: 413 mGy-cm FINDINGS: QUALITY OF STUDY/CONTRAST BOLUS: Satisfactory. PULMONARY ARTERIES: No pulmonary emboli. Pulmonary arteries are ectatic. THORACIC AORTA: No aneurysm. LUNG: Peribronchial groundglass opacities in the posterior right upper lobe. Postsurgical changes in the left hemithorax. PLEURA: Right pleural-based thickening. No pleural effusion. MEDIASTINUM: Normal heart size. No pericardial effusion. 9 x 1.9 cm right paratracheal lymph node. Nonspecific esophageal wall thickening. Anterior paraesophageal lymph node measures 0.9 x 0.8 cm. No hilar lymphadenopathy. No evidence of septal bowing or right heart strain. CORONARY ARTERY CALCIFICATION: Moderate. CHEST WALL/AXILLA: No axillary or internal mammary lymphadenopathy. OSSEOUS STRUCTURES: Postthoracotomy changes in the right chest wall. UPPER ABDOMEN: Unremarkable. No reflux of contrast into the hepatic veins to suggest elevated right heart pressures. CT/CT angio chest PE protocol IMPRESSION: No evidence of pulmonary embolus. Peribronchial ground glass opacities in the right upper lobe. This most likely represents an acute infectious or inflammatory process. Advise clinical correlation. Fleischner guidelines were followed. VTE: negative Electronically signed by: Theo Rae MD 05/26/2024 04:14 PM EDT
--- NOTE | 2024-05-26 11:17 | ECG_ITS ---
Test Reason : SOB Blood Pressure : / mmHG Vent. Rate : 102 BPM Atrial Rate : 102 BPM P-R Int : 190 ms QRS Dur : 076 ms QT Int : 332 ms P-R-T Axes : 063 036 084 degrees QTc Int : 432 ms Sinus tachycardia Otherwise normal ECG When compared with ECG of 18-MAY-2024 12:23, Premature supraventricular complexes are no longer Present Referred By: Darling Stevens Electronically Signed By:JO MARTELL
--- NOTE | 2024-05-26 11:30 | PC.NURSE ---
respiratory at bedside upon arrival, patient placed on bipap and given additional duoneb d/t increased work of breathing. able to respond to questions in 1-2 words, tachypneic on the monitor upon arrival in the 40's, at this time work of breathing has improved in the 20's. IV established, labs obtained and sent. placed on potline monitor.
[2024-05-26] MEDS: Magnesium Sulfate/H2O 2 GM/50 ML PIGGYBACK IV (11:32)
[2024-05-26] MEDS: Albuterol Sulfate 7.5 MG, Albuterol/Iprat 2.5/0.5MG 3 ML 3 ML INHALE ×2 (11:33→13:33)
[2024-05-26 11:35] LABS: MANUAL DIFF FLAG NO
[2024-05-26 11:37] LABS: Basophils Percent Auto 0.2 % (0-2); Eosinophils Absolute Auto 0.5 X10*3/uL (0.0-0.4); Eosinophils Percent Auto 4.4 % (0-4); Hematocrit 35.1 % (37.0-47.0); Imm Gran Abs Auto 0.07 X10*3/uL (0.00-0.03); Imm Gran Pct Auto 0.6 % (0.0-0.4); Lymphocytes Absolute Auto 1.2 X10*3/uL (1.2-4.9); Lymphocytes Percent Auto 10.3 % (20-40); Mean Corpuscular HGB Conc 31.3 g/dl (31.0-35.0); Mean Corpuscular Hemoglobin 26.1 pg (27.0-33.0); Mean Corpuscular Volume 83.2 fL (80.0-98.0); Mean Platelet Volume 9.8 fL (9.4-12.3); Monocytes Absolute Auto 1.1 X10*3/uL (0.1-1.2); Monocytes Percent Auto 9.4 % (2-11); Neutrophils Absolute Auto 8.7 x10*3/uL (2.0-8.3); Neutrophils Percent Auto 75.1 % (45-73); Platelet Count 323 X10*3/uL (160-400); Red Blood Count 4.22 X10*6/uL (4.20-5.50); White Blood Count 11.5 X10*3/uL (4.8-10.8)
[2024-05-26 11:39] LABS: VBG Base Excess 3.4 mmol/L; VBG HCO3 28 mmol/L (22-26); VBG pCO2 43 mmHg; VBG pH 7.41 (7.32-7.43); VBG pO2 35 mmHg
[2024-05-26 11:41] LABS: Venous Blood Gas Refer to POC result
[2024-05-26 11:54] LABS: Lactic Acid 1.6 mmol/L (0.5-2.0)
[2024-05-26 11:56] LABS: B Type Natriuretic Peptide 117 pg/mL (<100); Troponin-I High Sensitivity 8.1 ng/L (<3.5-17.0)
--- NOTE | 2024-05-26 11:58 | ED_ITS ---
HPI - SOB/Dyspnea General Chief Complaint: Dyspnea Stated Complaint: SOB , Cpap, + covid, CHF symptoms Source: patient, EMS and old records reviewed Mode of arrival: EMS Limitations: no limitations History of Present Illness ED Provider: FRANCINE HPI Narrative: 73 yo female with PMH of COPD not on home O2, ALYSIA uses CPAP, DM2, CHF with preserved EF, CKD, pneumonia, PE on eliquis, CAD s/p PCI, HTN, mood disorder who notes she started to feel unwell a couple of days ago and tested positive for COVID. She was started on prednisone burst yesterday by her doctor. She notes this AM her wheezing and breathing became worse. She has chest tightness as well. No productive sputum. The patient was found by EMS tripoding increased work of breathing and 1-2 words with sat of 98%. Treated with CPAP, IM solumedrol 125mg and duoneb. On arrival to ED she was switched to bipap after failed trial on oxymask. MD elicited complaint: shortness of breath, cough and asthma attack Pertinent past history: COPD, congestive heart failure and pneumonia Onset (ago): day(s) (2) Context: recent illness Timing: progressively worsening Severity: severe Exacerbating factors: exertion and coughing Relieving factors: oxygen, rest, bronchodilators and upright position Known history of: COPD, congestive heart failure and diabetes Associated symptoms: chest pain, cough and wheezing Treatment prior to arrival: oxygen, bronchodilator, NIPPV and other (IM steroids) Related Data Home Medications ?Medication ?Instructions ?Recorded ?Confirmed cholecalciferol (vitamin D3) 25 25 mcg PO DAILY 08/11/23 05/26/24 mcg (1,000 unit) tablet loratadine 10 mg tablet 10 mg PO DAILY PRN Allergy Symptoms 08/11/23 05/26/24 atorvastatin 80 mg tablet 80 mg PO BEDTIME 11/28/23 05/26/24 buspirone 5 mg tablet 5 mg PO BID 11/28/23 05/26/24 furosemide 20 mg tablet 20 mg PO DAILY 11/28/23 05/26/24 montelukast 10 mg tablet 10 mg PO BEDTIME 11/28/23 05/26/24 insulin lispro 100 unit/mL 1 sliding scale dose subcut 12/02/23 05/26/24 subcutaneous pen (Humalog KwikPen USEASDIRECTD (U-100) Insulin) albuterol sulfate 90 mcg/actuation 2 puff inhalation QID PRN 05/17/24 05/26/24 aerosol inhaler SOB/wheezing budesonide-formoterol HFA 160 2 puff inhalation BID PRN SOB 05/17/24 05/26/24 mcg-4.5 mcg/actuation aerosol inhaler (Symbicort) citalopram 20 mg tablet 20 mg PO DAILY 05/17/24 05/26/24 azithromycin 250 mg tablet 250 mg PO USEASDIRECTD 05/26/24 05/26/24 benzonatate 100 mg capsule 100 mg PO BID 05/26/24 05/26/24 pantoprazole 40 mg tablet,delayed 40 mg PO BID@0630,1630 05/26/24 05/26/24 release semaglutide 2 mg/dose (8 mg/3 mL) 2 mg subcut MCWILLIAMS 05/26/24 05/26/24 subcutaneous pen injector (Ozempic) Previous Rx's ?Medication ?Instructions ?Recorded walker #1 ea 02/28/23 acetaminophen 325 mg tablet 650 mg (2 x 325 mg) PO Q6H PRN 08/22/23 pain #30 tabs docusate sodium 100 mg capsule 100 mg PO BID PRN Constipation #30 08/22/23 caps empagliflozin 25 mg tablet 25 mg PO DAILY #90 tabs 09/21/23 (Jardiance) apixaban 5 mg tablet (Eliquis) 5 mg PO BID #180 tabs 09/27/23 diltiazem HCl 300 mg capsule,24 300 mg PO DAILY #90 caps 12/22/23 hr,extended release ipratropium 0.5 mg-albuterol 3 mg 3 ml inhalation Q8H PRN wheezing 12/29/23 (2.5 mg base)/3 mL nebulization #180 mL soln lisinopril 20 mg tablet 20 mg PO DAILY #90 tabs 01/04/24 compr.stocking,thigh,reg,large #2 ea 02/08/24 insulin glargine 100 unit/mL (3 25 unit (0.25 mL) subcut BEDTIME 02/22/24 mL) subcutaneous pen (Lantus #15 mL Solostar U-100 Insulin) blood sugar diagnostic (OneTouch #100 ea 03/06/24 Verio test strips) blood-glucose meter (OneTouch #1 ea 03/06/24 Verio Flex Meter) lancets 30 gauge (OneTouch Delica #100 ea 03/06/24 Plus Lancet) clopidogrel 75 mg tablet 75 mg PO DAILY #90 tabs 03/07/24 celecoxib 200 mg capsule (Celebrex) 200 mg PO BID 30 days #60 caps 04/12/24 carvedilol 6.25 mg tablet 6.25 mg PO BID 90 days #180 tabs 05/09/24 flash glucose sensor (FreeStyle #6 ea 05/09/24 Kelly 2 Sensor kit) Allergies Allergy/AdvReac Type Severity Reaction Status Date / Time Latex, Natural Rubber Allergy Severe blisters Verified 05/26/24 11:18 Sulfa (Sulfonamide Allergy Mild ITCHING, Verified 05/26/24 11:18 Antibiotics) rash [SULFA (SULFONAMIDE ANTIBIOTICS)] nystatin Allergy Unknown rash Verified 05/26/24 11:18 isosorbide [From Imdur] AdvReac Unknown HEADACHES, Verified 05/26/24 11:18 headache tizanidine AdvReac Unknown weakness, Verified 05/26/24 11:18 Hellucination Review of Systems 2 Review of Systems: Constitutional : No Fever, pos Chills ENT/Mouth : No Hoarseness, No sore throat, No Rhinorrhea Eyes: No Redness, No Discharge, No Vision Changes Cardiovascular : pos Chest Pain, positive SOB, positive Dyspnea on Exertion, No Edema Respiratory : positive Cough, No Sputum, positive Wheezing, Gastrointestinal : No Nausea, No Vomiting, No Diarrhea, No abdominal Pain Genitourinary : No Dysuria, No Hematuria Musculoskeletal : No joint pain, No Myalgias Skin : No rash Neuro : No Weakness, No Numbness, No Headache Psych : No anxiety, depression Heme/Lymph: No Bruising, No Bleeding Endocrine : No Polyuria, No Polydipsia All other systems reviewed and are negative PMFSH Past Medical History Attestation statement: The following information was validated with the patient. 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 Abnormal stress test Hypertension Obstructive sleep apnea Asthma with COPD Anemia CKD stage 3 due to type 2 diabetes mellitus Tracheomalacia, acquired History of pulmonary embolism AG (acute kidney injury) CAD (coronary artery disease) Paroxysmal atrial fibrillation Pulmonary embolism Obesity Dyslipidemia [facility] (current) use of insulin Respiratory failure COPD (chronic obstructive pulmonary disease) Surgical History History of carpal tunnel surgery History of cholecystectomy History of lobectomy of lung Status post tracheoplasty History of cardiac cath Family History Family History Mother No problems noted. Father No problems noted. Brother Substance use disorder Brother Substance use disorder Social History Social History Household Members: Family Household Members Other:: 2 Housing: House Do you presently have visiting nurse or other home services: No Alcohol intake: former Patient Tobacco Use Status: Former Tobacco user Tobacco use type: Cigarette Cigarettes Per Day: 10 Years Smoked: 3 e-Cigarette/Vaping Use: Never Used Second Hand Smoke Exposure: No Advance Directives: Yes Advance Directives on File: Yes Advance Directives Date on File: 06/29/23 Do you have a plan to hurt others: No Plan service: No Current occupational status: retired Cognitive needs: No Hearing needs: No Vision needs: No Physical Exam 2 Vital Signs: Vital Signs: Last Vital Signs Temp 98.6 F 05/26/24 16:00 Pulse 110 H 05/26/24 16:00 Resp 20 05/26/24 16:00 BP 147/62 H 05/26/24 16:00 Pulse Ox 100 05/26/24 16:00 O2 Del Method Oxymizer 05/26/24 16:00 O2 Flow Rate 5 05/26/24 16:00 BMI result Body Mass Index 35.2 Appearance: Alert. Oriented X3. Mild acute distress. Eyes: Pupils equal, round and reactive to light. ENT: Pharynx normal. Neck: Normal inspection. Neck supple. CVS: tachycardic heart rate and rhythm. Pulses normal. Respiratory: Mild respiratory distress - retractions and tachypnea. Breath sounds diminished with diffuse exp wheezes throughout labored 2-3 words, tachypneic and retractions Abdomen: Soft and nontender. Skin: Skin warm and dry. Normal skin color. Extremities: No lower extremity edema. Neuro: Oriented X 3. No motor deficit. No sensory deficit. Course Course Course Narrative: tolerating Bipap well anticipate she will come off she is clearing up and looks much better Reevaluation(s) Reevaluation #1: off bipap 118pm on high flow Reevaluation #2: 203pm labored patient is asking to go back on bipap Reevaluation #3: Dr. Smallwood recommends fentanyl and then attempt high flow 3pm Additional Reevaluation(s): much better on 5L oxy mask off NIPPV for 1+ hour Medications Administered Discontinued Medications Generic Name Dose Route Start Last Admin Trade Name Freq PRN Reason Stop Dose Admin Albuterol Sulfate 7.5 mg/ 0 mg 05/26/24 11:28 05/26/24 11:33 Albuterol/Ipratropium 3 ml INHALE 05/26/24 11:29 10 each ONCE ONE Administration Albuterol Sulfate 7.5 mg/ 0 mg 05/26/24 13:31 05/26/24 13:33 Albuterol/Ipratropium 3 ml INHALE 05/26/24 13:32 10 each ONCE ONE Administration Fentanyl 25 mcg 05/26/24 14:29 05/26/24 15:22 Fentanyl Citrate/Pf 100 Mcg/2 Ml Vial IVPUSH 05/26/24 14:30 25 mcg ONCE ONE Administration Protocol Furosemide 20 mg 05/26/24 13:19 05/26/24 14:19 Furosemide 20 Mg/2 Ml Vial IVPUSH 05/26/24 13:20 20 mg ONCE ONE Administration Protocol Magnesium Sulfate 2 gm in 50 mls @ 25 mls/hr 05/26/24 11:17 05/26/24 13:42 Magnesium Sulfate/H2o IV 05/26/24 13:16 Infused ONCE ONE Infusion Azithromycin 500 mg/ Sodium 250 mls @ 125 mls/hr 05/26/24 11:17 05/26/24 14:05 Chloride IV 05/26/24 13:16 Infused ONCE ONE Infusion Ceftriaxone Sodium 1 gm/ 50 mls @ 100 mls/hr 05/26/24 13:39 05/26/24 14:19 Sodium Chloride IV 05/26/24 14:08 100 mls/hr ONCE ONE Administration Ondansetron HCl 4 mg 05/26/24 14:29 05/26/24 15:22 Ondansetron Hcl 4 Mg/2 Ml Vial IVPUSH 05/26/24 14:30 4 mg ONCE ONE Administration Medical Decision Making Medical Decision Making [facility] Narrative: 73 yo female with PMH of COPD not on home O2, ALYSIA uses CPAP, DM2, CHF with preserved EF, CKD, pneumonia, PE on eliquis, CAD s/p PCI, HTN, mood disorder here with c/o dx of COVID yesterday on prednisone but worsening dyspnea wheezing chest tightness today on EMS arrival in distress started on CPAP - failed oxymask here continued on bipap given work of breathing. Labs, cultures, IV azithromycin, already given IM solumedrol by EMS, on eliquis doubt VTE, will obtain VBG. Seems likely COVID with superimposed COPD exacerbation. Differential Diagnosis Differential Diagnoses: The differential diagnosis associated with the presentation includes COVID -19, COPD exacerbation, bronchitis Admission/Observation Consideration of admission/observation: Escalation of care including admission/observation considered admit to ICU vs medicine doing well of bipap after fentanyl has been off for a while CTA pending after order by ICU Consult Healthcare Provider Management of the patient was discussed with: Hospitalist (will admit) and Management Psychologist (Dr. Cl godfrey - has seen patient patient has improved stable for floors) Lab Data [facility] Lab Attestation statement: I reviewed the patient's lab results. 05/26/24 11:26 05/26/24 11:26 Labs: Lab Results 05/26/24 05/26/24 05/26/24 Range/Units 11:26 11:33 11:37 WBC 11.5 H (4.8-10.8) X10*3/uL RBC 4.22 (4.20-5.50) X10*6/uL Hgb 11.0 L (12.0-16.0) g/dl Hct 35.1 L (37.0-47.0) % MCV 83.2 (80.0-98.0) fL MCH 26.1 L (27.0-33.0) pg MCHC 31.3 (31.0-35.0) g/dl RDW 21.0 H (11.0-16.0) % Plt Count 323 (160-400) X10*3/uL MPV 9.8 (9.4-12.3) fL Immature Gran % (Auto) 0.6 H (0.0-0.4) % Neut % (Auto) 75.1 H (45-73) % Lymph % (Auto) 10.3 L (20-40) % [place] % (Auto) 9.4 (2-11) % Eos % (Auto) 4.4 H (0-4) % Baso % (Auto) 0.2 (0-2) % Lymph # (Auto) 1.2 (1.2-4.9) X10*3/uL [place] # (Auto) 1.1 (0.1-1.2) X10*3/uL Eos # (Auto) 0.5 H (0.0-0.4) X10*3/uL Baso # (Auto) 0.0 (0.0-0.2) X10*3/uL Abs Immat Gran (auto) 0.07 H (0.00-0.03) X10*3/uL Absolute Neuts (auto) 8.7 H (2.0-8.3) x10*3/uL Absolute Nucleated RBC 0.000 (0.0-0.012) X10*3/uL Nucleated RBC % (auto) 0.0 (0.0-0.2) /100WBC Hold Blue Top VBG pH 7.41 (7.32-7.43) VBG pCO2 43 mmHg VBG pO2 35 mmHg VBG HCO3 28 H (22-26) mmol/L VBG O2 Saturation 57.0 % VBG Base Excess 3.4 mmol/L Sodium 138 (135-145) mmol/L Potassium 4.1 (3.3-5.1) mmol/L Chloride 104 (96-108) mmol/L Carbon Dioxide 26 (22-29) mmol/L Anion Gap 12 (12-20) BUN 20 H (9-16) mg/dL Creatinine 1.24 (0.5-1.4) mg/dL Estim Creat Clear Calc 43.4 Estimated GFR 42 Random Glucose 187 H (60-115) mg/dL Lactic Acid 1.6 (0.5-2.0) mmol/L Calcium 8.6 (8.4-10.2) mg/dL Magnesium 2.0 (1.6-2.6) mg/dL Total Bilirubin 0.3 (0.0-1.0) mg/dL Direct Bilirubin 0.1 (0.0-0.5) mg/dL AST 12 (5-31) U/L ALT 22 (0-31) U/L Alkaline Phosphatase 83 (39-117) U/L Troponin I High Sens 8.1 D (<3.5-17.0) ng/L C-Reactive Protein 3.76 H (< or = 0.50) mg/dL B-Natriuretic Peptide 117 H (<100) pg/mL Total Protein 6.4 L (6.5-8.0) g/dL Albumin 3.5 (3.5-5.0) g/dL Lipase 74 (8-78) U/L Procalcitonin 0.04 ng/mL Influenza Type A (PCR) NEGATIVE (Negative) Influenza Type B (PCR) NEGATIVE (Negative) RSV RNA Qual (PCR) NEGATIVE (Negative) SARS-CoV-2 RNA (RT-PCR) POSITIVE A (Negative) 05/26/24 05/26/24 Range/Units 11:45 14:39 WBC (4.8-10.8) X10*3/uL RBC (4.20-5.50) X10*6/uL Hgb (12.0-16.0) g/dl Hct (37.0-47.0) % MCV (80.0-98.0) fL MCH (27.0-33.0) pg MCHC (31.0-35.0) g/dl RDW (11.0-16.0) % Plt Count (160-400) X10*3/uL MPV (9.4-12.3) fL Immature Gran % (Auto) (0.0-0.4) % Neut % (Auto) (45-73) % Lymph % (Auto) (20-40) % [place] % (Auto) (2-11) % Eos % (Auto) (0-4) % Baso % (Auto) (0-2) % Lymph # (Auto) (1.2-4.9) X10*3/uL [place] # (Auto) (0.1-1.2) X10*3/uL Eos # (Auto) (0.0-0.4) X10*3/uL Baso # (Auto) (0.0-0.2) X10*3/uL Abs Immat Gran (auto) (0.00-0.03) X10*3/uL Absolute Neuts (auto) (2.0-8.3) x10*3/uL Absolute Nucleated RBC (0.0-0.012) X10*3/uL Nucleated RBC % (auto) (0.0-0.2) /100WBC Hold Blue Top SEE NOTE VBG pH (7.32-7.43) VBG pCO2 mmHg VBG pO2 mmHg VBG HCO3 (22-26) mmol/L VBG O2 Saturation % VBG Base Excess mmol/L Sodium (135-145) mmol/L Potassium (3.3-5.1) mmol/L Chloride (96-108) mmol/L Carbon Dioxide (22-29) mmol/L Anion Gap (12-20) BUN (9-16) mg/dL Creatinine (0.5-1.4) mg/dL Estim Creat Clear Calc Estimated GFR Random Glucose (60-115) mg/dL Lactic Acid (0.5-2.0) mmol/L Calcium (8.4-10.2) mg/dL Magnesium (1.6-2.6) mg/dL Total Bilirubin (0.0-1.0) mg/dL Direct Bilirubin (0.0-0.5) mg/dL AST (5-31) U/L ALT (0-31) U/L Alkaline Phosphatase (39-117) U/L Troponin I High Sens 6.6 (<3.5-17.0) ng/L C-Reactive Protein (< or = 0.50) mg/dL B-Natriuretic Peptide (<100) pg/mL Total Protein (6.5-8.0) g/dL Albumin (3.5-5.0) g/dL Lipase (8-78) U/L Procalcitonin ng/mL Influenza Type A (PCR) (Negative) Influenza Type B (PCR) (Negative) RSV RNA Qual (PCR) (Negative) SARS-CoV-2 RNA (RT-PCR) (Negative) ABG Data Attestation ABG: I personally reviewed and interpreted this ABG as follows: Independent Interpretation I performed an independent interpretation of an: EKG and Plain X-Ray (LL disease) Interpretation: Rate: 102 Rhythm: sinus tachycardia [place]: normal Normal P waves. Normal JASMYN. Normal QRS complex. ST T wave : no JOHN, inverted t waves aVL qTC: 432 prior studies: no acute ischemia The study has been interpreted contemporaneously by me. . Radiology Impression Discussion of test interpretation with radiology: I have reviewed the radiologist's reading. Independent Historian Clinical information obtained from an independent historian. History obtained from or confirmed by: EMS External Record Review External record reviewed: Inpatient record Critical Care Time Critical Care Time Critical Care Time: Yes Total Critical Care Time: 60 Attestation: repeat NIPPV, review of records, IV magnesium, admission, ICU consult I attest to this time spent taking care of the patient Discharge Plan Discharge Clinical Impression: COVID-19, Acute exacerbation of chronic obstructive pulmonary disease Patient Disposition: Admitted As Inpatient Print Language: Dominican
[2024-05-26] MEDS: Azithromycin 500 MG in 0.9 % Sodium Chloride 250 ML 125 MG IV (12:02)
[2024-05-26 12:05] LABS: Alanine Aminotransferase 22 U/L (0-31); Albumin Level 3.5 g/dL (3.5-5.0); Alkaline Phosphatase 83 U/L (39-117); Anion Gap 12 (12-20); Aspartate Amino Transferase 12 U/L (5-31); Bilirubin Direct 0.1 mg/dL (0.0-0.5); Bilirubin Total 0.3 mg/dL (0.0-1.0); Blood Urea Nitrogen 20 mg/dL (9-16); C Reactive Protein 3.76 mg/dL (< or = 0.50); Calcium 8.6 mg/dL (8.4-10.2); Carbon Dioxide 26 mmol/L (22-29); Chloride 104 mmol/L (96-108); Creatinine Clr Calc Pharmacy 43.4; Estimated Glomerular Filt Rate 42; Glucose Random 187 mg/dL (60-115); Lipase 74 U/L (8-78); Potassium 4.1 mmol/L (3.3-5.1); Sodium 138 mmol/L (135-145); Total Protein 6.4 g/dL (6.5-8.0)
[2024-05-26 12:31] LABS: Procalcitonin 0.04 ng/mL
[2024-05-26 12:32] LABS: Influenza A PCR NEGATIVE (Negative); Influenza B PCR NEGATIVE (Negative); Resp Syncy Virus RNA Qual PCR NEGATIVE (Negative); SARS COV2 PCR INHOUSE POSITIVE (Negative)
--- NOTE | 2024-05-26 13:56 | PC.NURSE ---
patient taken off bipap and placed on high flow. stating that she felt better being on the bipap, feels as if there is phlegm that will not come up.
[2024-05-26] MEDS: Furosemide 20 MG/2 ML VIAL IVPUSH (14:19)
[2024-05-26] MEDS: cefTRIAXone sodium 1 GM in 0.9 % Sodium Chloride 50 ML IV (14:19)
--- NOTE | 2024-05-26 14:23 | PC.NURSE ---
patient unable to tolerate high flow, placed back on bipap at this time. medicated per the MAR.
[2024-05-26 15:04] LABS: Troponin-I High Sensitivity 6.6 ng/L (<3.5-17.0)
[2024-05-26] MEDS: fentaNYL citrate/PF 100 MCG/2 ML VIAL 25 MCG IVPUSH (15:22)
[2024-05-26] MEDS: ondansetron HCL 4 MG/2 ML VIAL IVPUSH (15:22)
--- NOTE | 2024-05-26 15:52 | P.CONCC_ITS ---
History of Present Illness Data of Consult Service Date: 05/26/24 Primary Care Provider: Unknown Physician HPI Reason for consult: Shortness of breaths 73-year-old lady with past medical history of hypertension, diabetes mellitus, COPD not on home oxygen, obstructive sleep apnea on CPAP, CAD status post PCI, history of PE on apixaban recently admitted to the hospital for the management of COPD exacerbation and was discharged home 6 days ago presents back to the hospital with shortness of breath. Patient was short of breath and tachypneic so was placed on BiPAP support. Lab stable, lactate normal, chest x-ray normal except for WBC count of 11.5 Review of Systems 2 Constitutional: Constitutional: Denies body ache(s), Denies chills, Denies daytime sleepiness and Denies difficulty sleeping Eyes: Eyes: Denies exophthalmos and Denies change in vision ENT: Denies Normal hearing present and Denies bleeding gums Cardiovascular: Cardiovascular: Denies Abdominal Cramping after Meds, Denies Abdominal Distension and Denies acrocyanosis Respiratory: Respiratory: Denies change in phlegm color, Reports chest congestion and Reports cough Gastrointestinal: Gastrointestinal: Denies belching and Denies melena Genitourinary: Genitourinary: Denies abnormal menses and Denies abnormal vaginal bleeding Neurologic: Denies Normal hearing present, Denies Neuro-related abnormal movements and Denies Abnormal speech present [facility] Past Medical History Medical History Non-ST elevation [place] (NSTEMI) 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 Father No problems noted. Brother Substance use disorder Brother Substance use disorder Surgical History Surgical History History of carpal tunnel surgery History of cholecystectomy History of lobectomy of lung Status post tracheoplasty History of cardiac cath Social History Social History Household Members: Family Household Members Other:: 2 Housing: House Do you presently have visiting nurse or other home services: No Alcohol intake: former Patient Tobacco Use Status: Former Tobacco user Tobacco use type: Cigarette Cigarettes Per Day: 10 Years Smoked: 3 e-Cigarette/Vaping Use: Never Used Second Hand Smoke Exposure: No Advance Directives: Yes Advance Directives on File: Yes Advance Directives Date on File: 06/29/23 Do you have a plan to hurt others: No Plan service: No Current occupational status: retired Cognitive needs: No Hearing needs: No Vision needs: No Meds Allergies Allergy/AdvReac Type Severity Reaction Status Date / Time Latex, Natural Rubber Allergy Severe blisters Verified 05/26/24 11:18 Sulfa (Sulfonamide Allergy Mild ITCHING, Verified 05/26/24 11:18 Antibiotics) rash [SULFA (SULFONAMIDE ANTIBIOTICS)] nystatin Allergy Unknown rash Verified 05/26/24 11:18 isosorbide [From Imdur] AdvReac Unknown HEADACHES, Verified 05/26/24 11:18 headache tizanidine AdvReac Unknown weakness, Verified 05/26/24 11:18 Hellucination Home Medications ?Medication ?Instructions ?Recorded ?Confirmed ?Last Taken ?Type cholecalciferol (vitamin D3) 25 25 mcg PO DAILY 08/11/23 05/17/24 05/26/24 07:00 History mcg (1,000 unit) tablet loratadine 10 mg tablet 10 mg PO DAILY PRN Allergy Symptoms 08/11/23 05/17/24 08/11/23 History atorvastatin 80 mg tablet 80 mg PO BEDTIME 11/28/23 05/17/24 05/25/24 History buspirone 5 mg tablet 5 mg PO BID 11/28/23 05/17/24 05/26/24 07:00 History furosemide 20 mg tablet 20 mg PO DAILY 11/28/23 05/17/24 05/26/24 07:00 History montelukast 10 mg tablet 10 mg PO BEDTIME 11/28/23 05/17/24 05/25/24 History insulin lispro 100 unit/mL 1 sliding scale dose subcut 12/02/23 05/17/24 05/26/24 07:00 History subcutaneous pen (Humalog KwikPen USEASDIRECTD (U-100) Insulin) albuterol sulfate 90 mcg/actuation 2 puff inhalation QID PRN 05/17/24 05/17/24 Unknown History aerosol inhaler SOB/wheezing budesonide-formoterol HFA 160 2 puff inhalation BID PRN SOB 05/17/24 05/17/24 Unknown History mcg-4.5 mcg/actuation aerosol inhaler (Symbicort) citalopram 20 mg tablet 20 mg PO DAILY 05/17/24 05/17/24 05/26/24 07:00 History azithromycin 250 mg tablet 250 mg PO USEASDIRECTD 05/26/24 05/26/24 07:00 History benzonatate 100 mg capsule 100 mg PO BID 05/26/24 05/26/24 07:00 History Physical Exam 2 Vital Signs: Vital Signs: Last Vital Signs Temp 98.3 F 05/26/24 13:48 Pulse 113 H 05/26/24 15:06 Resp 22 H 05/26/24 15:06 BP 158/72 H 05/26/24 15:06 Pulse Ox 98 05/26/24 15:06 O2 Del Method BiPAP 05/26/24 15:06 BMI result Body Mass Index 35.2 General: acute distress, ill appearing and tired appearing Nutritional Appearance: well nourished and overweight Eyes: appearance normal, both eyes and all related structures; Alignment and Position: alignment normal and position normal Neck: No lymphadenopathy, no thyromegaly Resp: bilateral air entry equal, occasional added sounds present, no significant wheeze heard Cardio: Regular rate, regular rhythm; Heart sounds: S1 normal heart sound present and S2 normal heart sound present GI: soft, nontender, no guarding, no hepatosplenomegaly : bladder normal to inspection, bladder normal to palpation, no renal angle tenderness Skin: no rashes or lesions noted and elasticity normal Neuro: oriented to person, oriented to place, oriented to time and moves all extremities, no focal deficits Neuro: Cranial nerves: No Normal hearing present Speech: No Abnormal speech present Results Labs 05/26/24 11:26 05/26/24 11:26 Labs: Short CBC 05/26/24 Range/Units 11:26 WBC 11.5 H (4.8-10.8) X10*3/uL Hgb 11.0 L (12.0-16.0) g/dl Hct 35.1 L (37.0-47.0) % Plt Count 323 (160-400) X10*3/uL BMP 05/26/24 11:26 Sodium 138 Potassium 4.1 Chloride 104 Carbon Dioxide 26 BUN 20 H Creatinine 1.24 Calcium 8.6 Liver Function 05/26/24 Range/Units 11:26 Total Bilirubin 0.3 (0.0-1.0) mg/dL Direct Bilirubin 0.1 (0.0-0.5) mg/dL AST 12 (5-31) U/L ALT 22 (0-31) U/L Alkaline Phosphatase 83 (39-117) U/L Albumin 3.5 (3.5-5.0) g/dL Assessment and Plan (1) Acute exacerbation of chronic obstructive pulmonary disease: Status: Acute (2) COVID-19: Status: Acute (3) COPD exacerbation: Status: Acute (4) DM type 2 (diabetes mellitus, type 2): Status: Acute (5) Patellofemoral arthritis of right knee: Status: Acute (6) Vitamin D deficiency: Status: Acute Plan 73-year-old lady with past medical history of hypertension, diabetes, COPD not on home oxygen, obstructive sleep apnea on nighttime CPAP, CAD status post PCI, pulmonary embolism on Eliquis presented to the ED with shortness of breath. Her labs are stable, WBC count of 11,000. Lactate normal, chest x-ray normal. Her saturations are about 97% on 25% oxygen on the BiPAP. Please keep the patient a small dose of fentanyl push along with Zyprexa 10 mg IM for anxiolysis and can support the work of breathing with high-flow nasal cannula. Given normal chest x-ray and dyspnea would like to rule out pulmonary embolism. We will closely follow
--- NOTE | 2024-05-26 15:59 | PHA.MEDREC ---
Addendum entered by Kenney Pena [facility] 05/26/24 17:26: Reviewed by [facility] Original Note: Pharmacy Consult ? Medication Reconciliation Pharmacy has completed the medication reconciliation. Spoke with patient and she confirmed since her discharge on 05/20 was up to date and there were no new changes. She did confirm she started the Azithromycin 250mg regimen yesterday and took 2 tabs yesterday and is now taking 1 tab daily for the next 4 days. She also started the Benzonate 100mg regimen 1 tab BID for 7 days. She also confirmed she is using the Lantus Solostar every night and injecting 25 untis and she is still using the Humalog KwikPen per sliding scale despite it not being filled looking in claims since 03/05/2024. She confirmed she finished the Prednisone 10mg regimen this past week. She confirmed she took her morning medications today.
--- NOTE | 2024-05-26 16:00 | PC.NURSE ---
patient previously medicated per the NOV d/t complaints of stomach pain. patient taken to CT scan after pain med administration, placed on 5L oxymask which patient is tolerating well at this time. patient remains on oxymask and is speaking in full clear sentences and reports vast improvement in her breathing. able to tolerate oxymask at this time.
[2024-05-26] MEDS: fentaNYL citrate/PF 100 MCG/2 ML VIAL 50 MCG IVPUSH (17:16)
--- NOTE | 2024-05-26 17:16 | P.HPHOSP_ITS ---
History of Present Illness Date of Service: 05/26/24 Chief Complaint: Dyspnea, SOB A 73 years old lady with PMH of COPD, DM2, ALYSIA on CPAP, DM2, PE on Eliquis, CAD , HTN among others who presents to the hospital for increase SOB and dyspnea over the last couple of days. The patient reports that she started feeling off, tired, more dyspneic with short distences and feeling overall unwell for at least 2 days. She tested positive for Covid. she took vaccines and never had Covid before. She was started on Azithromycin and Steroids by PCP but she got much dyspneic this morning. Called EMS who brought her to ED. In ED she needed Highflow then BiPAP in order to control her work of breathing. She received 2 long nebulizers with fair response and decrease O2 requirments to oxymask. CXR showing possible RUL infiltrates. Will be admitted for further monitoring and treatment. 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 Father No problems noted. Brother Substance use disorder Brother Substance use disorder Surgical History History of carpal tunnel surgery History of cholecystectomy History of lobectomy of lung Status post tracheoplasty History of cardiac cath Social History Household Members: Family Household Members Other:: 2 Housing: House Do you presently have visiting nurse or other home services: No Alcohol intake: former Patient Tobacco Use Status: Former Tobacco user Tobacco use type: Cigarette Cigarettes Per Day: 10 Years Smoked: 3 e-Cigarette/Vaping Use: Never Used Second Hand Smoke Exposure: No Advance Directives: Yes Advance Directives on File: Yes Advance Directives Date on File: 06/29/23 Do you have a plan to hurt others: No Plan service: No Current occupational status: retired Cognitive needs: No Hearing needs: No Vision needs: No Meds Allergies Allergy/AdvReac Type Severity Reaction Status Date / Time Latex, Natural Rubber Allergy Severe blisters Verified 05/26/24 11:18 Sulfa (Sulfonamide Allergy Mild ITCHING, Verified 05/26/24 11:18 Antibiotics) rash [SULFA (SULFONAMIDE ANTIBIOTICS)] nystatin Allergy Unknown rash Verified 05/26/24 11:18 isosorbide [From Imdur] AdvReac Unknown HEADACHES, Verified 05/26/24 11:18 headache tizanidine AdvReac Unknown weakness, Verified 05/26/24 11:18 Hellucination Home Medications ?Medication ?Instructions ?Recorded ?Confirmed ?Last Taken ?Type cholecalciferol (vitamin D3) 25 25 mcg PO DAILY 08/11/23 05/26/24 05/26/24 07:00 History mcg (1,000 unit) tablet loratadine 10 mg tablet 10 mg PO DAILY PRN Allergy Symptoms 08/11/23 05/26/24 08/11/23 History atorvastatin 80 mg tablet 80 mg PO BEDTIME 11/28/23 05/26/24 05/26/24 07:00 History buspirone 5 mg tablet 5 mg PO BID 11/28/23 05/26/24 05/26/24 07:00 History furosemide 20 mg tablet 20 mg PO DAILY 11/28/23 05/26/24 05/26/24 07:00 History montelukast 10 mg tablet 10 mg PO BEDTIME 11/28/23 05/26/24 05/25/24 History insulin lispro 100 unit/mL 1 sliding scale dose subcut 12/02/23 05/26/24 05/26/24 07:00 History subcutaneous pen (Humalog KwikPen USEASDIRECTD (U-100) Insulin) albuterol sulfate 90 mcg/actuation 2 puff inhalation QID PRN 05/17/24 05/26/24 Unknown History aerosol inhaler SOB/wheezing budesonide-formoterol HFA 160 2 puff inhalation BID PRN SOB 05/17/24 05/26/24 Unknown History mcg-4.5 mcg/actuation aerosol inhaler (Symbicort) citalopram 20 mg tablet 20 mg PO DAILY 05/17/24 05/26/24 05/26/24 07:00 History azithromycin 250 mg tablet 250 mg PO USEASDIRECTD 05/26/24 05/26/24 05/26/24 07:00 History benzonatate 100 mg capsule 100 mg PO BID 05/26/24 05/26/24 05/26/24 07:00 History pantoprazole 40 mg tablet,delayed 40 mg PO BID@0630,1630 05/26/24 05/26/24 05/26/24 07:00 History release semaglutide 2 mg/dose (8 mg/3 mL) 2 mg subcut [facility] 05/26/24 05/26/24 05/21/24 History subcutaneous pen injector (Ozempic) Physical Exam 2 Vital Signs and Narrative: Vital Signs: Last Vital Signs Temp 98.3 F 05/26/24 16:27 Pulse 114 H 05/26/24 16:27 Resp 14 05/26/24 16:27 BP 145/54 H 05/26/24 16:27 Pulse Ox 98 05/26/24 16:27 O2 Del Method Oxymask 05/26/24 16:27 O2 Flow Rate 5 05/26/24 16:27 BMI result Body Mass Index 35.2 Const: Other: Constitutional : Awake, interactive, Neck : Normal inspection, Supple Cardiovascular : RRR, no JVP, no lower extremity edema Respiratory : decreased bilateral air entry, no crackles, expiratory wheezes , on O2 supplement Gastrointestinal: soft, lax, Normal bowel sounds, Non tender Skin : Warm, Dry Neurological : Alert & oriented x3, No focal deficit Results Labs 05/26/24 11:26 05/26/24 11:26 Labs: Laboratory Results - last 24 hr 05/26/24 05/26/24 05/26/24 11:26 11:33 11:37 MCV 83.2 MCH 26.1 L MCHC 31.3 RDW 21.0 H Plt Count 323 MPV 9.8 Immature Gran % (Auto) 0.6 H Neut % (Auto) 75.1 H Lymph % (Auto) 10.3 L [place] % (Auto) 9.4 Eos % (Auto) 4.4 H Baso % (Auto) 0.2 Lymph # (Auto) 1.2 [place] # (Auto) 1.1 Eos # (Auto) 0.5 H Baso # (Auto) 0.0 Abs Immat Gran (auto) 0.07 H Absolute Neuts (auto) 8.7 H Absolute Nucleated RBC 0.000 Nucleated RBC % (auto) 0.0 Hold Blue Top VBG pH 7.41 VBG pCO2 43 VBG pO2 35 VBG HCO3 28 H VBG O2 Saturation 57.0 VBG Base Excess 3.4 Anion Gap 12 Estim Creat Clear Calc 43.4 Estimated GFR 42 Random Glucose 187 H Lactic Acid 1.6 Calcium 8.6 Magnesium 2.0 Total Bilirubin 0.3 Direct Bilirubin 0.1 AST 12 ALT 22 Alkaline Phosphatase 83 Troponin I High Sens 8.1 D C-Reactive Protein 3.76 H B-Natriuretic Peptide 117 H Total Protein 6.4 L Albumin 3.5 Lipase 74 Procalcitonin 0.04 Influenza Type A (PCR) NEGATIVE Influenza Type B (PCR) NEGATIVE RSV RNA Qual (PCR) NEGATIVE SARS-CoV-2 RNA (RT-PCR) POSITIVE A 05/26/24 05/26/24 11:45 14:39 MCV MCH MCHC RDW Plt Count MPV Immature Gran % (Auto) Neut % (Auto) Lymph % (Auto) [place] % (Auto) Eos % (Auto) Baso % (Auto) Lymph # (Auto) [place] # (Auto) Eos # (Auto) Baso # (Auto) Abs Immat Gran (auto) Absolute Neuts (auto) Absolute Nucleated RBC Nucleated RBC % (auto) Hold Blue Top SEE NOTE VBG pH VBG pCO2 VBG pO2 VBG HCO3 VBG O2 Saturation VBG Base Excess Anion Gap Estim Creat Clear Calc Estimated GFR Random Glucose Lactic Acid Calcium Magnesium Total Bilirubin Direct Bilirubin AST ALT Alkaline Phosphatase Troponin I High Sens 6.6 C-Reactive Protein B-Natriuretic Peptide Total Protein Albumin Lipase Procalcitonin Influenza Type A (PCR) Influenza Type B (PCR) RSV RNA Qual (PCR) SARS-CoV-2 RNA (RT-PCR) Imaging Radiologist's Impressions: Impressions Chest X-Ray 05/26/24 11:18 IMPRESSION: Slightly increased asymmetric haziness overlying the left lateral lung base which could be related with atelectasis or trace layering pleural fluid. Infectious/inflammatory infiltrate cannot be excluded in the appropriate clinical context. Electronically signed by: Alessandra Padilla MD 05/26/2024 01:34 PM EDT RP Chest CTA 05/26/24 15:46 IMPRESSION: No evidence of pulmonary embolus. Peribronchial ground glass opacities in the right upper lobe. This most likely represents an acute infectious or inflammatory process. Advise clinical correlation. Fleischner guidelines were followed. VTE: negative Electronically signed by: Theo Rae MD 05/26/2024 04:14 PM EDT RP Assessment and Plan (1) Acute exacerbation of chronic obstructive pulmonary disease: Status: Acute (2) COVID-19: Status: Acute Plan A 73 years old lady with PMH of COPD, DM2, ALYSIA on CPAP, DM2, PE on Eliquis, CAD , HTN among others who presents to the hospital for increase SOB and dyspnea over the last couple of days. Acute hypoxic respiratory failure 2/2 Covid19 infection and sepsis from CAP PAtient has Tachycardia, resp. failure and leukocytosis blood cultures sent CXR showing possible RUL infiltrates Azithromycin and Ceftriaxone (05/26) Duoneb Q4H and prn Dexamethasone 6 mg daily Wean O2 down as tolerated DMII with hyperglycemia SSI, Lantus 25 units diabetic diet Noncardiac abdominal pain from coughing musculoskeletal in origin pain medications and cough syrup CKD 3b Creatinine at baseline CAD status post PCI On high-intensity statin and Plavix Continue Carvedilol Essential hypertension Continue home medications ALYSIA Continue CPAP at bedtime Mood disorder Continue home mood stabilizers History of PE On Eliquis DVT prophylaxis: Eliquis The patient will likely need 2 overnight hospital stay for treatment of hypoxemia related to Covid infection pending blood cultures and clinical improvement. Quality Stroke Does the patient have a stroke diagnosis?: No VTE Prior VTE?: Yes VTE Risk Level:: Medical - moderate - high VTE Device Contraindication: Treatment Not Indicated VTE Drug Contraindication: N/A - Med Ordered
[2024-05-26] MEDS: dexAMETHasone sod phosphate 4 MG/ML VIAL 6 MG IVPUSH (18:14)
[2024-05-26] MEDS: Benzonatate 100 MG CAPSULE PO ×2 (18:14→20:35)
--- NOTE | 2024-05-26 18:15 | PC.NURSE ---
Diltiazem unavailable in [facility]. Called pharmacy to bring med to ED for administration. Duoneb to be administered by Respiratory Therapist.
[2024-05-26] MEDS: dilTIAZem HCL CD 300 MG CAP.ER.24H PO (18:55)
--- NOTE | 2024-05-26 19:10 | PC.NURSE ---
Assumed car of pt at 1900. PT alert and oriented and in no acute distress. Currently eating dinner tray. PT endorsing abdominal pain 6/10, breathing unlabored o2 sat 97%, respirations 19 on room air. Awaiting bed assignment.
[2024-05-26] MEDS: Albuterol/Iprat 2.5/0.5MG 3 ML AMPUL.NEB INHALE (19:52)
[2024-05-26] MEDS: Atorvastatin Calcium 80 MG TABLET PO (20:35)
[2024-05-26] MEDS: guaiFENesin LA 600 MG TAB.ER.12H PO (20:35)
[2024-05-26] MEDS: carvediloL 6.25 MG TABLET PO (20:35)
[2024-05-26] MEDS: Montelukast Sodium 10 MG TABLET PO (20:35)
[2024-05-26] MEDS: busPIRone HCl 5 MG TABLET PO (20:35)
[2024-05-26] MEDS: Insulin Glargine,Hum.rec.anlog 100 UNIT/ML 10 ML VIAL 25 UNIT SUBCUT (20:37)
[2024-05-26] MEDS: Insulin Lispro 100 UNIT/ML 3 ML VIAL SUBCUT (20:37)
--- NOTE | 2024-05-26 20:38 | PC.NURSE ---
Notified provider of critical glucose- 416. Pt had dinner tray with no insulin coverage
[2024-05-26 20:48] LABS: Glucose, Whole Blood 416 mg/dL (60-115)
[2024-05-26] MEDS: Apixaban 5 MG TABLET PO (20:50)
[2024-05-26] MEDS: Celecoxib 200 MG CAPSULE PO (21:38)
[2024-05-27] VITALS (11 sets, daily range): BP systolic 132–162; BP diastolic 59–72; PULSE 75–110; RESP 16–20; TEMP 36.2–36.6; O2SAT 96–98
[2024-05-27 00:06] LABS: Glucose, Whole Blood 264 mg/dL (60-115)
[2024-05-27] MEDS: Acetaminophen 325 MG TABLET 975 MG PO ×2 (03:12→21:51)
[2024-05-27] MEDS: Pantoprazole Sodium 20 MG TABLET.DR 40 MG PO ×2 (05:57→16:47)
[2024-05-27 07:22] LABS: MANUAL DIFF FLAG NO
[2024-05-27 07:33] LABS: Basophils Percent Auto 0.1 % (0-2); Hematocrit 32.1 % (37.0-47.0); Hemoglobin 10.3 g/dl (12.0-16.0); Imm Gran Pct Auto 1.1 % (0.0-0.4); Lymphocytes Absolute Auto 0.6 X10*3/uL (1.2-4.9); Lymphocytes Percent Auto 6.4 % (20-40); Mean Corpuscular HGB Conc 32.1 g/dl (31.0-35.0); Mean Corpuscular Volume 81.1 fL (80.0-98.0); Mean Platelet Volume 9.7 fL (9.4-12.3); Monocytes Absolute Auto 0.4 X10*3/uL (0.1-1.2); Monocytes Percent Auto 4.1 % (2-11); Neutrophils Absolute Auto 8.4 x10*3/uL (2.0-8.3); Neutrophils Percent Auto 88.3 % (45-73); Platelet Count 286 X10*3/uL (160-400); Red Blood Count 3.96 X10*6/uL (4.20-5.50); White Blood Count 9.5 X10*3/uL (4.8-10.8)
[2024-05-27 07:40] LABS: Glucose, Whole Blood 197 mg/dL (60-115)
[2024-05-27 07:49] LABS: Alanine Aminotransferase 21 U/L (0-31); Albumin Level 3.4 g/dL (3.5-5.0); Alkaline Phosphatase 80 U/L (39-117); Anion Gap 14 (12-20); Aspartate Amino Transferase 9 U/L (5-31); Bilirubin Total 0.3 mg/dL (0.0-1.0); Blood Urea Nitrogen 25 mg/dL (9-16); Calcium 8.5 mg/dL (8.4-10.2); Carbon Dioxide 27 mmol/L (22-29); Chloride 101 mmol/L (96-108); Creatinine Clr Calc Pharmacy 47.1; Estimated Glomerular Filt Rate 46; Glucose Random 211 mg/dL (60-115); Potassium 4.7 mmol/L (3.3-5.1); Sodium 137 mmol/L (135-145); Total Protein 6.2 g/dL (6.5-8.0)
[2024-05-27] MEDS: Albuterol/Iprat 2.5/0.5MG 3 ML AMPUL.NEB INHALE ×5 (08:18→20:26)
[2024-05-27] MEDS: Insulin Lispro 100 UNIT/ML 3 ML VIAL SUBCUT ×4 (08:24→21:39)
[2024-05-27] MEDS: Furosemide 20 MG TABLET PO (08:35)
[2024-05-27] MEDS: dilTIAZem HCL CD 300 MG CAP.ER.24H PO (08:35)
[2024-05-27] MEDS: guaiFENesin LA 600 MG TAB.ER.12H PO ×2 (08:35→21:39)
[2024-05-27] MEDS: Cholecalciferol (Vitamin D3) 25 MCG TABLET PO (08:35)
[2024-05-27] MEDS: busPIRone HCl 5 MG TABLET PO ×2 (08:36→21:38)
[2024-05-27] MEDS: Escitalopram Oxalate 10 MG TABLET PO (08:36)
[2024-05-27] MEDS: Apixaban 5 MG TABLET PO ×2 (08:36→21:39)
[2024-05-27] MEDS: dexAMETHasone sod phosphate 4 MG/ML VIAL 6 MG IVPUSH (08:36)
[2024-05-27] MEDS: carvediloL 6.25 MG TABLET PO ×2 (08:36→21:38)
[2024-05-27] MEDS: Empagliflozin 25 MG TABLET PO (08:36)
[2024-05-27] MEDS: Celecoxib 200 MG CAPSULE PO ×2 (08:36→21:38)
[2024-05-27] MEDS: Clopidogrel Bisulfate 75 MG TABLET PO (08:36)
[2024-05-27] MEDS: lisinopriL 20 MG TABLET PO (08:36)
[2024-05-27] MEDS: Benzonatate 100 MG CAPSULE PO ×4 (08:36→21:38)
--- NOTE | 2024-05-27 09:30 | P.PNIM_ITS ---
Subjective Subjective Date of Service: 05/27/24 Interval History: seen and evaluated this morning feels better already denies any fever or chills still congested and wheezy no reported overnight events Review of Systems reporting chills or weakness No chest pain, palpitation having shortness of breath or coughing abdominal pain from coughing but no nausea or vomiting No urinary symptoms Physical Exam 2 Vital Signs: Vital Signs: Last Vital Signs Temp 97.3 F 05/27/24 08:00 Pulse 85 05/27/24 08:20 Resp 16 05/27/24 08:20 BP 162/72 H 05/27/24 08:00 Pulse Ox 98 05/27/24 08:00 O2 Del Method Nasal Cannula 05/27/24 08:00 O2 Flow Rate 2 05/27/24 08:00 BMI result Body Mass Index 35.2 Const: Other: Constitutional : Awake, interactive, Neck : Normal inspection, Supple Cardiovascular : RRR, no JVP, no lower extremity edema Respiratory : decreased bilateral air entry, no crackles, expiratory wheezes , on O2 supplement Gastrointestinal: soft, lax, Normal bowel sounds, Non tender Skin : Warm, Dry Neurological : Alert & oriented x3, No focal deficit Objective Data Active Medications Acetaminophen (Acetaminophen 325 Mg Tablet) 975 mg PO Q6H PRN PRN Reason: Pain, Severe (Pain Scale 7-10) Last Admin: 05/27/24 03:12 Dose: 975 mg Documented By: OLIVIA Albuterol Sulfate (Albuterol Sulfate 90 Mcg 8 Gm Inhaler) 2 puff INHALE QID PRN PRN Reason: SOB/wheezing Albuterol/Ipratropium (Albuterol/Iprat 2.5/0.5mg 3 Ml Ampul.Neb) 3 ml INHALE Q4H [facility] [place] Last Admin: 05/27/24 08:18 Dose: 3 ml Documented By: CANDACE Apixaban (Apixaban 5 Mg Tablet) 5 mg PO BID [facility] [place] Last Admin: 05/27/24 08:36 Dose: 5 mg Documented By: LINDY Atorvastatin Calcium (Atorvastatin Calcium 80 Mg Tablet) 80 mg PO BEDTIME [facility] [place] Last Admin: 05/26/24 20:35 Dose: 80 mg Documented By: MONTEIR Benzonatate (Benzonatate 100 Mg Capsule) 100 mg PO QID [facility] [place] Last Admin: 05/27/24 08:36 Dose: 100 mg Documented By: LINDY Buspirone HCl (Buspirone Hcl 5 Mg Tablet) 5 mg PO BID [facility] [place] Last Admin: 05/27/24 08:36 Dose: 5 mg Documented By: LINDY Carvedilol (Carvedilol 6.25 Mg Tablet) 6.25 mg PO BID [facility] [place]; Protocol Last Admin: 05/27/24 08:36 Dose: 6.25 mg Documented By: LINDY Celecoxib (Celecoxib 200 Mg Capsule) 200 mg PO BID [facility] [place] Last Admin: 05/27/24 08:36 Dose: 200 mg Documented By: LINDY Clopidogrel Bisulfate (Clopidogrel Bisulfate 75 Mg Tablet) 75 mg PO DAILY [facility] [place] Last Admin: 05/27/24 08:36 Dose: 75 mg Documented By: LINDY Dexamethasone Sodium Phosphate (Dexamethasone Sod Phosphate 4 Mg/Ml Vial) 6 mg IVPUSH DAILY [facility] [place] Last Admin: 05/27/24 08:36 Dose: 6 mg Documented By: LINDY Diltiazem HCl (Diltiazem Hcl Cd 300 Mg Cap.Er.24h) 300 mg PO DAILY [facility] [place]; Protocol Last Admin: 05/27/24 08:35 Dose: 300 mg Documented By: LINDY Docusate Sodium (Docusate Sodium 100 Mg Capsule) 100 mg PO BID PRN PRN Reason: Constipation Empagliflozin (Empagliflozin 25 Mg Tablet) 25 mg PO DAILY [facility] [place] Last Admin: 05/27/24 08:36 Dose: 25 mg Documented By: LINDY Escitalopram Oxalate (Escitalopram Oxalate 10 Mg Tablet) 10 mg PO DAILY [facility] [place] Last Admin: 05/27/24 08:36 Dose: 10 mg Documented By: LINDY Furosemide (Furosemide 20 Mg Tablet) 20 mg PO DAILY [facility] [place]; Protocol Last Admin: 05/27/24 08:35 Dose: 20 mg Documented By: LINDY Guaifenesin (Guaifenesin La 600 Mg Tab.Er.12h) 600 mg PO BID [facility] [place] Last Admin: 05/27/24 08:35 Dose: 600 mg Documented By: LINDY Azithromycin 500 mg/ Sodium (Chloride) 250 mls @ 125 mls/hr IV Q24H [facility] [place] Ceftriaxone Sodium 1 gm/ (Sodium Chloride) 50 mls @ 100 mls/hr IV Q24H [facility] [place] Insulin Glargine (Insulin Glargine,Hum.Rec.Anlog 100 Unit/Ml 10 Ml Vial) 25 unit SUBCUT BEDTIME [facility] [place] Last Admin: 05/26/24 20:37 Dose: 25 unit Documented By: RHONDA Insulin Human Lispro (Insulin Lispro 100 Unit/Ml 3 Ml Vial) 0 unit SUBCUT QIDACHS [facility] [place]; Protocol Last Admin: 05/27/24 08:24 Dose: 4 unit Documented By: LINDY Lisinopril (Lisinopril 20 Mg Tablet) 20 mg PO DAILY [facility] [place]; Protocol Last Admin: 05/27/24 08:36 Dose: 20 mg Documented By: LINDY Loratadine (Loratadine 10 Mg Tablet) 10 mg PO DAILY PRN PRN Reason: Allergy Symptoms Magnesium Hydroxide (Milk Of Magnesia 30 Ml Oral.Susp) 30 ml PO DAILY PRN PRN Reason: Constipation Melatonin (Melatonin 3 Mg Tablet) 6 mg PO BEDTIME PRN PRN Reason: Insomnia Montelukast Sodium (Montelukast Sodium 10 Mg Tablet) 10 mg PO BEDTIME [facility] [place] Last Admin: 05/26/24 20:35 Dose: 10 mg Documented By: RHONDA Ondansetron HCl (Ondansetron Hcl 4 Mg/2 Ml Vial) 4 mg IVPUSH Q8H PRN PRN Reason: Nausea and Vomiting Pantoprazole Sodium (Pantoprazole Sodium 20 Mg Tablet.) 40 mg PO BID@0630,1630 [facility] [place] Last Admin: 05/27/24 05:57 Dose: 40 mg Documented By: DONELL-OWUSD Vitamin D (Cholecalciferol (Vitamin D3) 25 Mcg Tablet) 25 mcg PO DAILY [facility] [place] Last Admin: 05/27/24 08:35 Dose: 25 mcg Documented By: LINDY Labs 05/27/24 06:36 05/27/24 06:36 Labs: Laboratory Results - last 24 hr 05/26/24 05/26/24 05/26/24 11:26 11:33 11:37 MCV 83.2 MCH 26.1 L MCHC 31.3 RDW 21.0 H Plt Count 323 MPV 9.8 Immature Gran % (Auto) 0.6 H Neut % (Auto) 75.1 H Lymph % (Auto) 10.3 L Reeves % (Auto) 9.4 Eos % (Auto) 4.4 H Baso % (Auto) 0.2 Lymph # (Auto) 1.2 Reeves # (Auto) 1.1 Eos # (Auto) 0.5 H Baso # (Auto) 0.0 Abs Immat Gran (auto) 0.07 H Absolute Neuts (auto) 8.7 H Absolute Nucleated RBC 0.000 Nucleated RBC % (auto) 0.0 Hold Blue Top VBG pH 7.41 VBG pCO2 43 VBG pO2 35 VBG HCO3 28 H VBG O2 Saturation 57.0 VBG Base Excess 3.4 Anion Gap 12 Estim Creat Clear Calc 43.4 Estimated GFR 42 POC Glucose Random Glucose 187 H Lactic Acid 1.6 Calcium 8.6 Magnesium 2.0 Total Bilirubin 0.3 Direct Bilirubin 0.1 AST 12 ALT 22 Alkaline Phosphatase 83 Troponin I High Sens 8.1 D C-Reactive Protein 3.76 H B-Natriuretic Peptide 117 H Total Protein 6.4 L Albumin 3.5 Lipase 74 Procalcitonin 0.04 Influenza Type A (PCR) NEGATIVE Influenza Type B (PCR) NEGATIVE RSV RNA Qual (PCR) NEGATIVE SARS-CoV-2 RNA (RT-PCR) POSITIVE A 05/26/24 05/26/24 05/26/24 11:45 14:39 20:27 MCV MCH MCHC RDW Plt Count MPV Immature Gran % (Auto) Neut % (Auto) Lymph % (Auto) Reeves % (Auto) Eos % (Auto) Baso % (Auto) Lymph # (Auto) Reeves # (Auto) Eos # (Auto) Baso # (Auto) Abs Immat Gran (auto) Absolute Neuts (auto) Absolute Nucleated RBC Nucleated RBC % (auto) Hold Blue Top SEE NOTE VBG pH VBG pCO2 VBG pO2 VBG HCO3 VBG O2 Saturation VBG Base Excess Anion Gap Estim Creat Clear Calc Estimated GFR POC Glucose 416 H* Random Glucose Lactic Acid Calcium Magnesium Total Bilirubin Direct Bilirubin AST ALT Alkaline Phosphatase Troponin I High Sens 6.6 C-Reactive Protein B-Natriuretic Peptide Total Protein Albumin Lipase Procalcitonin Influenza Type A (PCR) Influenza Type B (PCR) RSV RNA Qual (PCR) SARS-CoV-2 RNA (RT-PCR) 05/27/24 05/27/24 05/27/24 00:02 06:36 07:31 MCV 81.1 MCH 26.0 L MCHC 32.1 RDW 21.0 H Plt Count 286 MPV 9.7 Immature Gran % (Auto) 1.1 H Neut % (Auto) 88.3 H Lymph % (Auto) 6.4 L Reeves % (Auto) 4.1 Eos % (Auto) 0.0 Baso % (Auto) 0.1 Lymph # (Auto) 0.6 L Reeves # (Auto) 0.4 Eos # (Auto) 0.0 Baso # (Auto) 0.0 Abs Immat Gran (auto) 0.10 H Absolute Neuts (auto) 8.4 H Absolute Nucleated RBC 0.000 Nucleated RBC % (auto) 0.0 Hold Blue Top VBG pH VBG pCO2 VBG pO2 VBG HCO3 VBG O2 Saturation VBG Base Excess Anion Gap 14 Estim Creat Clear Calc 47.1 Estimated GFR 46 POC Glucose 264 H 197 H Random Glucose 211 H Lactic Acid Calcium 8.5 Magnesium Total Bilirubin 0.3 Direct Bilirubin AST 9 ALT 21 Alkaline Phosphatase 80 Troponin I High Sens C-Reactive Protein B-Natriuretic Peptide Total Protein 6.2 L Albumin 3.4 L Lipase Procalcitonin Influenza Type A (PCR) Influenza Type B (PCR) RSV RNA Qual (PCR) SARS-CoV-2 RNA (RT-PCR) Assessment and Plan (1) Acute exacerbation of chronic obstructive pulmonary disease: Status: Acute (2) COVID-19: Status: Acute (3) COPD exacerbation: Status: Acute Plan A 73 years old lady with PMH of COPD, DM2, ALYSIA on CPAP, DM2, PE on Eliquis, CAD , HTN among others who presents to the hospital for increase SOB and dyspnea over the last couple of days. Acute hypoxic respiratory failure 2/2 Covid19 infection and sepsis from CAP blood cultures pending CXR showing possible RUL infiltrates continue Azithromycin and Ceftriaxone (05/26) Duoneb Q4H and prn Dexamethasone 6 mg daily Wean O2 down as tolerated DMII with hyperglycemia SSI, Lantus 30 units diabetic diet Noncardiac abdominal pain from coughing musculoskeletal in origin pain medications and cough syrup CKD 3b Creatinine at baseline CAD status post PCI On high-intensity statin and Plavix Continue Carvedilol Essential hypertension Continue home medications ALYSIA Continue CPAP at bedtime Mood disorder Continue home mood stabilizers History of PE On Eliquis DVT prophylaxis: Eliquis The patient will likely need overnight hospital stay for treatment of hypoxemia related to Covid infection pending blood cultures and clinical improvement. Quality Stroke Does the patient have a stroke diagnosis?: No VTE Prior VTE?: Yes VTE Risk Level:: Medical - moderate - high VTE Device Contraindication: Treatment Not Indicated VTE Drug Contraindication: N/A - Med Ordered
[2024-05-27 11:08] LABS: Glucose, Whole Blood 279 mg/dL (60-115)
[2024-05-27] MEDS: Azithromycin 500 MG in 0.9 % Sodium Chloride 250 ML 125 MG IV (11:46)
[2024-05-27] MEDS: cefTRIAXone sodium 1 GM in 0.9 % Sodium Chloride 50 ML IV (14:05)
[2024-05-27 16:38] LABS: Glucose, Whole Blood 178 mg/dL (60-115)
[2024-05-27 20:49] LABS: Glucose, Whole Blood 238 mg/dL (60-115)
[2024-05-27] MEDS: Atorvastatin Calcium 80 MG TABLET PO (21:38)
[2024-05-27] MEDS: Montelukast Sodium 10 MG TABLET PO (21:38)
[2024-05-27] MEDS: Insulin Glargine,Hum.rec.anlog 100 UNIT/ML 10 ML VIAL 30 UNIT SUBCUT (21:39)
[2024-05-28] VITALS (14 sets, daily range): BP systolic 114–174; BP diastolic 53–79; PULSE 74–86; RESP 12–20; TEMP 36.2–37; O2SAT 92–97
[2024-05-28] MEDS: Pantoprazole Sodium 20 MG TABLET.DR 40 MG PO ×2 (05:24→16:37)
[2024-05-28 06:37] LABS: Hematocrit 31.6 % (37.0-47.0); Mean Corpuscular HGB Conc 31.6 g/dl (31.0-35.0); Mean Corpuscular Hemoglobin 25.8 pg (27.0-33.0); Mean Corpuscular Volume 81.7 fL (80.0-98.0); Mean Platelet Volume 9.5 fL (9.4-12.3); Platelet Count 285 X10*3/uL (160-400); Red Blood Count 3.87 X10*6/uL (4.20-5.50); White Blood Count 16.9 X10*3/uL (4.8-10.8)
[2024-05-28 06:52] LABS: Anion Gap 13 (12-20); Blood Urea Nitrogen 36 mg/dL (9-16); Calcium 8.9 mg/dL (8.4-10.2); Carbon Dioxide 28 mmol/L (22-29); Chloride 103 mmol/L (96-108); Creatinine Clr Calc Pharmacy 40.1; Estimated Glomerular Filt Rate 39; Glucose Random 142 mg/dL (60-115); Potassium 4.5 mmol/L (3.3-5.1); Sodium 139 mmol/L (135-145)
[2024-05-28 07:13] LABS: Glucose, Whole Blood 133 mg/dL (60-115)
[2024-05-28] MEDS: Insulin Lispro 100 UNIT/ML 3 ML VIAL SUBCUT ×4 (07:47→22:59)
[2024-05-28] MEDS: carvediloL 6.25 MG TABLET PO ×2 (07:52→20:53)
[2024-05-28] MEDS: dilTIAZem HCL CD 300 MG CAP.ER.24H PO (07:52)
[2024-05-28] MEDS: Cholecalciferol (Vitamin D3) 25 MCG TABLET PO (07:52)
[2024-05-28] MEDS: Escitalopram Oxalate 10 MG TABLET PO (07:52)
[2024-05-28] MEDS: Furosemide 20 MG TABLET PO (07:53)
[2024-05-28] MEDS: Empagliflozin 25 MG TABLET PO (07:53)
[2024-05-28] MEDS: Clopidogrel Bisulfate 75 MG TABLET PO (07:53)
[2024-05-28] MEDS: busPIRone HCl 5 MG TABLET PO ×2 (07:53→20:53)
[2024-05-28] MEDS: guaiFENesin LA 600 MG TAB.ER.12H PO ×2 (07:53→20:55)
[2024-05-28] MEDS: Benzonatate 100 MG CAPSULE PO ×4 (07:53→20:53)
[2024-05-28] MEDS: lisinopriL 20 MG TABLET PO (07:53)
[2024-05-28] MEDS: Apixaban 5 MG TABLET PO ×2 (07:53→20:52)
[2024-05-28] MEDS: dexAMETHasone sod phosphate 4 MG/ML VIAL 6 MG IVPUSH (07:54)
[2024-05-28] MEDS: Albuterol/Iprat 2.5/0.5MG 3 ML AMPUL.NEB INHALE ×3 (08:04→19:01)
[2024-05-28] MEDS: Celecoxib 200 MG CAPSULE PO ×2 (08:40→20:54)
[2024-05-28] MEDS: Simethicone 80 MG TAB.CHEW PO ×4 (10:01→20:52)
[2024-05-28] MEDS: Azithromycin 500 MG in 0.9 % Sodium Chloride 250 ML 125 MG IV (10:01)
--- NOTE | 2024-05-28 11:08 | HO.PM.IMPN ---
Subjective Subjective Date of Service: 05/28/24 Interval History: seen and evaluated this morning feels better already denies any fever or chills still congested and wheezy with reported pain no reported overnight events Review of Systems reporting chills or weakness No chest pain, palpitation having shortness of breath or coughing abdominal pain from coughing but no nausea or vomiting No urinary symptoms Physical Exam Vital Signs: Vital Signs: Last Vital Signs Temp 97.1 F 05/28/24 07:56 Pulse 86 05/28/24 08:04 Resp 18 05/28/24 08:04 BP 142/64 H 05/28/24 07:56 Pulse Ox 95 05/28/24 07:56 O2 Del Method Room Air 05/28/24 00:12 O2 Flow Rate 2 05/27/24 16:00 BMI result Body Mass Index 35.2 Const: Other: Constitutional : Awake, interactive, Neck : Normal inspection, Supple Cardiovascular : RRR, no JVP, no lower extremity edema Respiratory : decreased bilateral air entry, no crackles, expiratory wheezes , on O2 supplement Gastrointestinal: soft, lax, Normal bowel sounds, Non tender Skin : Warm, Dry Neurological : Alert & oriented x3, No focal deficit Objective Data Active Medications Acetaminophen (Acetaminophen 325 Mg Tablet) 975 mg PO Q6H PRN PRN Reason: Pain, Severe (Pain Scale 7-10) Last Admin: 05/27/24 21:51 Dose: 975 mg Documented By: OLIVIA Albuterol Sulfate (Albuterol Sulfate 90 Mcg 8 Gm Inhaler) 2 puff INHALE QID PRN PRN Reason: SOB/wheezing Albuterol/Ipratropium (Albuterol/Iprat 2.5/0.5mg 3 Ml Ampul.Neb) 3 ml INHALE Q4H [facility] Last Admin: 05/28/24 08:04 Dose: 3 ml Documented By: TUAN Apixaban (Apixaban 5 Mg Tablet) 5 mg PO BID [facility] Last Admin: 05/28/24 07:53 Dose: 5 mg Documented By: LINDY Atorvastatin Calcium (Atorvastatin Calcium 80 Mg Tablet) 80 mg PO BEDTIME [facility] Last Admin: 05/27/24 21:38 Dose: 80 mg Documented By: OLIVIA Benzonatate (Benzonatate 100 Mg Capsule) 100 mg PO QID [facility] Last Admin: 05/28/24 07:53 Dose: 100 mg Documented By: LINDY Buspirone HCl (Buspirone Hcl 5 Mg Tablet) 5 mg PO BID [facility] Last Admin: 05/28/24 07:53 Dose: 5 mg Documented By: LINDY Carvedilol (Carvedilol 6.25 Mg Tablet) 6.25 mg PO BID [facility]; Protocol Last Admin: 05/28/24 07:52 Dose: 6.25 mg Documented By: LINDY Celecoxib (Celecoxib 200 Mg Capsule) 200 mg PO BID [facility] Last Admin: 05/28/24 08:40 Dose: 200 mg Documented By: LINDY Clopidogrel Bisulfate (Clopidogrel Bisulfate 75 Mg Tablet) 75 mg PO DAILY [facility] Last Admin: 05/28/24 07:53 Dose: 75 mg Documented By: LINDY Dexamethasone Sodium Phosphate (Dexamethasone Sod Phosphate 4 Mg/Ml Vial) 6 mg IVPUSH DAILY [facility] Last Admin: 05/28/24 07:54 Dose: 6 mg Documented By: LINDY Diltiazem HCl (Diltiazem Hcl Cd 300 Mg Cap.Er.24h) 300 mg PO DAILY [facility]; Protocol Last Admin: 05/28/24 07:52 Dose: 300 mg Documented By: LINDY Docusate Sodium (Docusate Sodium 100 Mg Capsule) 100 mg PO BID PRN PRN Reason: Constipation Empagliflozin (Empagliflozin 25 Mg Tablet) 25 mg PO DAILY [facility] Last Admin: 05/28/24 07:53 Dose: 25 mg Documented By: LINDY Escitalopram Oxalate (Escitalopram Oxalate 10 Mg Tablet) 10 mg PO DAILY [facility] Last Admin: 05/28/24 07:52 Dose: 10 mg Documented By: LINDY Furosemide (Furosemide 20 Mg Tablet) 20 mg PO DAILY [facility]; Protocol Last Admin: 05/28/24 07:53 Dose: 20 mg Documented By: LINDY Guaifenesin (Guaifenesin La 600 Mg Tab.Er.12h) 600 mg PO BID [facility] Last Admin: 05/28/24 07:53 Dose: 600 mg Documented By: LINDY Azithromycin 500 mg/ Sodium (Chloride) 250 mls @ 125 mls/hr IV Q24H [facility] Last Admin: 05/28/24 10:01 Dose: 125 mls/hr Documented By: LINDY Ceftriaxone Sodium 1 gm/ (Sodium Chloride) 50 mls @ 100 mls/hr IV Q24H [facility] Last Infusion: 05/27/24 15:08 Dose: Infused Documented By: LINDY Insulin Glargine (Insulin Glargine,Hum.Rec.Anlog 100 Unit/Ml 10 Ml Vial) 30 unit SUBCUT BEDTIME [facility] Last Admin: 05/27/24 21:39 Dose: 30 unit Documented By: OLIVIA Insulin Human Lispro (Insulin Lispro 100 Unit/Ml 3 Ml Vial) 0 unit SUBCUT QIDACHS [facility]; Protocol Last Admin: 05/28/24 07:47 Dose: 2 unit Documented By: LINDY Lisinopril (Lisinopril 20 Mg Tablet) 20 mg PO DAILY [facility]; Protocol Last Admin: 05/28/24 07:53 Dose: 20 mg Documented By: LINDY Loratadine (Loratadine 10 Mg Tablet) 10 mg PO DAILY PRN PRN Reason: Allergy Symptoms Magnesium Hydroxide (Milk Of Magnesia 30 Ml Oral.Susp) 30 ml PO DAILY PRN PRN Reason: Constipation Melatonin (Melatonin 3 Mg Tablet) 6 mg PO BEDTIME PRN PRN Reason: Insomnia Montelukast Sodium (Montelukast Sodium 10 Mg Tablet) 10 mg PO BEDTIME [facility] Last Admin: 05/27/24 21:38 Dose: 10 mg Documented By: OLIVIA Ondansetron HCl (Ondansetron Hcl 4 Mg/2 Ml Vial) 4 mg IVPUSH Q8H PRN PRN Reason: Nausea and Vomiting Pantoprazole Sodium (Pantoprazole Sodium 20 Mg Tablet.) 40 mg PO BID@0630,1630 [facility] Last Admin: 05/28/24 05:24 Dose: 40 mg Documented By: OLIVIA Simethicone (Simethicone 80 Mg Tab.Chew) 80 mg PO QIDWMHS [facility] Last Admin: 05/28/24 10:01 Dose: 80 mg Documented By: LINDY Vitamin D (Cholecalciferol (Vitamin D3) 25 Mcg Tablet) 25 mcg PO DAILY [facility] Last Admin: 05/28/24 07:52 Dose: 25 mcg Documented By: LINDY Labs 05/28/24 06:00 05/28/24 06:00 Labs: Laboratory Results - last 24 hr 05/27/24 05/27/24 05/27/24 10:58 16:31 20:40 MCV MCH MCHC RDW Plt Count MPV Absolute Nucleated RBC Nucleated RBC % (auto) Anion Gap Estim Creat Clear Calc Estimated GFR POC Glucose 279 H 178 H 238 H Random Glucose Calcium 05/28/24 05/28/24 06:00 07:06 MCV 81.7 MCH 25.8 L MCHC 31.6 RDW 21.0 H Plt Count 285 MPV 9.5 Absolute Nucleated RBC 0.000 Nucleated RBC % (auto) 0.0 Anion Gap 13 Estim Creat Clear Calc 40.1 Estimated GFR 39 POC Glucose 133 H Random Glucose 142 H Calcium 8.9 Microbiology Microbiology Results: Microbiology 05/26/24 11:44 Blood Culture - Preliminary Blood - Venous No growth after 24 hours. 05/26/24 11:27 Blood Culture - Preliminary Blood - Venous No growth after 24 hours. Assessment and Plan (1) Acute exacerbation of chronic obstructive pulmonary disease: Status: Acute (2) COVID-19: Status: Acute (3) DM type 2 (diabetes mellitus, type 2): Status: Acute (4) Pneumonia: Status: Acute Plan A 73 years old lady with PMH of COPD, DM2, ALYSIA on CPAP, DM2, PE on Eliquis, CAD , HTN among others who presents to the hospital for increase SOB and dyspnea over the last couple of days. Acute hypoxic respiratory failure 2/2 Covid19 infection and sepsis from CAP blood cultures pending CXR showing possible RUL infiltrates continue Azithromycin and Ceftriaxone (05/26) Duoneb Q4H and prn Dexamethasone 6 mg daily Wean O2 down as tolerated DMII with hyperglycemia SSI, Lantus 30 units diabetic diet Noncardiac abdominal pain from coughing musculoskeletal in origin pain medications and cough syrup CKD 3b Creatinine at baseline CAD status post PCI On high-intensity statin and Plavix Continue Carvedilol Essential hypertension Continue home medications ALYSIA Continue CPAP at bedtime Mood disorder Continue home mood stabilizers History of PE On Eliquis DVT prophylaxis: Eliquis The patient will likely need overnight hospital stay for treatment of Covid infection pending blood cultures and clinical improvement. Quality Stroke Does the patient have a stroke diagnosis?: No VTE Prior VTE?: Yes VTE Risk Level:: Medical - moderate - high VTE Device Contraindication: Treatment Not Indicated VTE Drug Contraindication: N/A - Med Ordered
[2024-05-28 11:11] LABS: Glucose, Whole Blood 206 mg/dL (60-115)
[2024-05-28] MEDS: cefTRIAXone sodium 1 GM in 0.9 % Sodium Chloride 50 ML IV (12:25)
[2024-05-28] MEDS: Acetaminophen 325 MG TABLET 975 MG PO (14:39)
[2024-05-28 15:43] LABS: Glucose, Whole Blood 148 mg/dL (60-115)
--- NOTE | 2024-05-28 16:21 | MHC.CM.PN ---
PT ADMITTED WITH COVID-19 CM SPOKE TO PTS HCP/DAUGHTER GRACE [phone] SHE REPORTS THE PT LIVES WITH HER AND HER SON PT IS INDEPENDENT WITH CARE AND USES A WALKER ONLY WHEN GOING OUTSIDE PT IS ACTIVE WITH [facility] HCP ON FILE PCP: DEMETRI HASKINS IMM DELIVERED COPY TO BE EMAILED TO HER AT [email or web address] DCP: HOME RESUME [facility]
[2024-05-28] MEDS: Milk of Magnesia 30 ML ORAL.SUSP PO (16:37)
[2024-05-28] MEDS: Montelukast Sodium 10 MG TABLET PO (20:53)
[2024-05-28] MEDS: Atorvastatin Calcium 80 MG TABLET PO (20:55)
[2024-05-28 21:21] LABS: Glucose, Whole Blood 242 mg/dL (60-115)
[2024-05-28] MEDS: Insulin Glargine,Hum.rec.anlog 100 UNIT/ML 10 ML VIAL 30 UNIT SUBCUT (22:59)
[2024-05-29] VITALS (7 sets, daily range): BP systolic 116–151; BP diastolic 58–67; PULSE 68–84; RESP 18–20; TEMP 36.1–36.9; O2SAT 92–98
[2024-05-29] MEDS: Pantoprazole Sodium 20 MG TABLET.DR 40 MG PO (06:15)
[2024-05-29 07:35] LABS: Glucose, Whole Blood 140 mg/dL (60-115)
[2024-05-29] MEDS: Albuterol/Iprat 2.5/0.5MG 3 ML AMPUL.NEB INHALE ×2 (07:49→11:19)
[2024-05-29] MEDS: Simethicone 80 MG TAB.CHEW PO ×2 (09:09→13:07)
[2024-05-29] MEDS: busPIRone HCl 5 MG TABLET PO (09:10)
[2024-05-29] MEDS: Clopidogrel Bisulfate 75 MG TABLET PO (09:10)
[2024-05-29] MEDS: carvediloL 6.25 MG TABLET PO (09:10)
[2024-05-29] MEDS: Furosemide 20 MG TABLET PO (09:10)
[2024-05-29] MEDS: Empagliflozin 25 MG TABLET PO (09:10)
[2024-05-29] MEDS: Apixaban 5 MG TABLET PO (09:10)
[2024-05-29] MEDS: guaiFENesin LA 600 MG TAB.ER.12H PO (09:10)
[2024-05-29] MEDS: Escitalopram Oxalate 10 MG TABLET PO (09:10)
[2024-05-29] MEDS: dilTIAZem HCL CD 300 MG CAP.ER.24H PO (09:10)
[2024-05-29] MEDS: lisinopriL 20 MG TABLET PO (09:10)
[2024-05-29] MEDS: Benzonatate 100 MG CAPSULE PO ×2 (09:10→13:05)
[2024-05-29] MEDS: Celecoxib 200 MG CAPSULE PO (09:10)
[2024-05-29] MEDS: Cholecalciferol (Vitamin D3) 25 MCG TABLET PO (09:11)
[2024-05-29] MEDS: dexAMETHasone sod phosphate 4 MG/ML VIAL 6 MG IVPUSH (09:11)
[2024-05-29] MEDS: Insulin Lispro 100 UNIT/ML 3 ML VIAL SUBCUT ×2 (09:26→13:04)
[2024-05-29 12:26] LABS: Glucose, Whole Blood 136 mg/dL (60-115)
--- NOTE | 2024-05-29 12:53 | P.DS_ITS ---
DS: Providers Provider Date of Service: 05/29/24 Date of admission: 05/26/24 16:55 Date of discharge: 05/29/24 Primary care physician: Unknown Physician DS: Diagnosis Discharge Diagnosis (1) Acute exacerbation of chronic obstructive pulmonary disease: Status: Acute (2) COVID-19: Status: Acute (3) DM type 2 (diabetes mellitus, type 2): Status: Acute (4) Pneumonia: Status: Acute DS: Summary Hospital Course Hospital Course: Admission note HPI A 73 years old lady with PMH of COPD, DM2, ALYSIA on CPAP, DM2, PE on Eliquis, CAD , HTN among others who presents to the hospital for increase SOB and dyspnea over the last couple of days. The patient reports that she started feeling off, tired, more dyspneic with short distences and feeling overall unwell for at least 2 days. She tested positive for Covid. she took vaccines and never had Covid before. She was started on Azithromycin and Steroids by PCP but she got much dyspneic this morning. Called EMS who brought her to ED. In ED she needed Highflow then BiPAP in order to control her work of breathing. She received 2 long nebulizers with fair response and decrease O2 requirments to oxymask. CXR showing possible RUL infiltrates. Will be admitted for further monitoring and treatment. Hospital course The patient was admitted for treatment of Acute hypoxic respiratory failure secondary to Covid19 infection and sepsis from CAP as CXR showing possible RUL infiltrates. Treated with IV steroids, Azithromycin and Ceftriaxone along with bronchodilator nebulizers and O2 supplement. Weaned down to room air with good tolerance as her blood cultures remained negative. She was able to ambulate on room air with no reported dyspnea or SOB. She had Noncardiac abdominal pain from coughing. musculoskeletal in origin. To use as needed pain medications and cough syrup She has DMII with hyperglycemia which was controlled with SSI, Lantus 30 units and diabetic diet Discharge plan Continue Azithromycin and Ceftin for 5 more days Prednisone 40 mg for 5 more days Cough medicine as needed Time Attestation Discharge Coordination Time (in mins): 37 Quality: Safe Use of Opioids Does Pt have an Active Cancer Diagnosis on the Problem List?: No Quality: Stroke Does the patient have a stroke diagnosis?: No Physical Exam Vital Signs: Vital Signs: Last Vital Signs Temp 97 F 05/29/24 08:00 Pulse 79 05/29/24 11:21 Resp 18 05/29/24 11:21 BP 151/67 H 05/29/24 08:00 Pulse Ox 92 05/29/24 09:08 O2 Del Method Room Air 05/29/24 04:00 O2 Flow Rate 2 05/27/24 16:00 BMI result Body Mass Index 35.2 Const: Other: Constitutional : Awake, interactive, Neck : Normal inspection, Supple Cardiovascular : RRR, no JVP, no lower extremity edema Respiratory : fair bilateral air entry, no crackles, no wheezes , on RA Gastrointestinal: soft, lax, Normal bowel sounds, Non tender Skin : Warm, Dry Neurological : Alert & oriented x3, No focal deficit DS: Data Data Completed and Pending Completed studies during hospitalization [Text1]: Procedures Assistance with Respiratory Ventilation, Less than 24 Consecutive Hours, Continuous Positive Airway Pressure (05/18/24) Excision of Lower Esophagus, Via Natural or Artificial Opening Endoscopic, Diagnostic (11/28/23) Excision of Stomach, Pylorus, Via Natural or Artificial Opening Endoscopic, Diagnostic (11/28/23) Transfusion of Nonautologous Red Blood Cells into Peripheral Vein, Percutaneous Approach (11/28/23) Labs on day of discharge: Laboratory Results - last 24 hr 05/28/24 05/28/24 05/29/24 15:33 21:16 07:26 POC Glucose 148 H 242 H 140 H 05/29/24 12:03 POC Glucose 136 H Preliminary micro results at discharge 05/26/24 11:44 Blood Culture - Preliminary Blood - Venous No growth after 48 hours. 05/26/24 11:27 Blood Culture - Preliminary Blood - Venous No growth after 48 hours. Imaging Chest x-ray: Radiologist's impression: ITS Impressions Chest X-Ray 05/26/24 11:18 IMPRESSION: Slightly increased asymmetric haziness overlying the left lateral lung base which could be related with atelectasis or trace layering pleural fluid. Infectious/inflammatory infiltrate cannot be excluded in the appropriate clinical context. Electronically signed by: Alessandra Padilla MD 05/26/2024 01:34 PM EDT RP Chest CTA 05/26/24 15:46 IMPRESSION: No evidence of pulmonary embolus. Peribronchial ground glass opacities in the right upper lobe. This most likely represents an acute infectious or inflammatory process. Advise clinical correlation. Fleischner guidelines were followed. VTE: negative Electronically signed by: Theo Rae MD 05/26/2024 04:14 PM EDT Discharge Plan Discharge Anticipated Discharge Date/Time: 05/29/24 12:42 Patient Disposition: Home, Self-Care Discharge Diagnosis: COPD exacerbation Pneumonia Referrals: Physician,Unknown J [Primary Care Provider] - 1 Week Discharge Medications: New guaifenesin [Mucinex] 600 mg Tablet Extended Release 12hr 600 mg PO BID Qty: 14 0RF prednisone 20 mg tablet 40 mg PO DAILY Qty: 10 0RF cefuroxime axetil 500 mg tablet 500 mg PO BID 5 Days Qty: 10 0RF azithromycin 500 mg tablet 500 mg PO DAILY 5 Days Qty: 5 0RF Continued Jardiance 25 mg tablet 25 mg PO DAILY Qty: 90 1RF diltiazem HCl 300 mg capsule,extended release 24 hr 300 mg PO DAILY Qty: 90 1RF (DME) compr.stocking,thigh,reg,large Misc See Rx Instructions .Route Qty: 2 3RF Rx Instructions: Thigh High compression stockings 10-20mmHg insulin glargine [Lantus Solostar U-100 Insulin] 100 unit/mL (3 mL) insulin pen 25 unit subcut BEDTIME Qty: 15 1RF (DME) blood-glucose meter [OneTouch Verio Flex meter] Misc See Rx Instructions .Route Qty: 1 0RF Rx Instructions: As directed (DME) OneTouch Verio test strips Strip See Rx Instructions .Route Qty: 100 11RF Rx Instructions: Test blood sugar 3 times per day (DME) lancets [OneTouch Delica Plus Lancet] 30 gauge misc See Rx Instructions .Route Qty: 100 11RF Rx Instructions: Test blood sugar 3 times per day clopidogrel 75 mg tablet 75 mg PO DAILY Qty: 90 1RF carvedilol 6.25 mg tablet 6.25 mg PO BID 90 Days Qty: 180 3RF Rx Instructions: must administer with a meal/food (DME) FreeStyle Kelly 2 Sensor Kit See Rx Instructions .ROUTE .MEDSUPPLY Qty: 6 3RF Rx Instructions: As directed every 2 weeks (DME) walker Misc See Rx Instructions .Route Qty: 1 0RF Rx Instructions: As directed loratadine 10 mg Tablet 10 mg PO DAILY PRN (Reason: Allergy Symptoms) cholecalciferol (vitamin D3) 25 mcg (1,000 unit) Tablet 25 mcg PO DAILY docusate sodium 100 mg Capsule 100 mg PO BID PRN (Reason: Constipation) Qty: 30 0RF acetaminophen 325 mg Tablet 650 mg PO Q6H PRN (Reason: pain) Qty: 30 0RF albuterol sulfate 90 mcg/actuation Hfa Aerosol Inhaler 2 puff INHALATION QID PRN (Reason: SOB/wheezing) citalopram 20 mg tablet 20 mg PO DAILY budesonide-formoterol [Symbicort] 160-4.5 mcg/actuation HFA aerosol inhaler 2 puff INHALATION BID PRN (Reason: SOB) buspirone 5 mg tablet 5 mg PO BID furosemide 20 mg tablet 20 mg PO DAILY montelukast 10 mg tablet 10 mg PO BEDTIME atorvastatin 80 mg tablet 80 mg PO BEDTIME insulin lispro [Humalog KwikPen Insulin] 100 unit/mL Insulin Pen 1 sliding scale dose SUBCUT USEASDIRECTD Patient Comments: ADDED PER DR. ORTIZ Rx Instructions: BG <111 0 units, 111-150 - 0 units, 151-200 2 units, 201-250 4 units, 251-300 6 units, 301-350 8 units, >350 10 units benzonatate 100 mg capsule 100 mg PO BID Rx Instructions: 6 days remaining in course beginning 02/23/24 pantoprazole 40 mg tablet,delayed release (/EC) 40 mg PO BID@0630,1630 Ozempic 2 mg/dose (8 mg/3 mL) pen injector 2 mg subcut MCWILLIAMS ipratropium-albuterol 0.5 mg-3 mg(2.5 mg base)/3 mL solution for nebulization 3 ml inhalation Q8H PRN (Reason: wheezing) Qty: 180 3RF Eliquis 5 mg tablet 5 mg PO BID Qty: 180 3RF celecoxib [Celebrex] 200 mg capsule 200 mg PO BID 30 Days Qty: 60 3RF lisinopril 20 mg tablet 20 mg PO DAILY Qty: 90 1RF Rx Instructions: Dose increased Discontinued azithromycin 250 mg tablet 250 mg PO USEASDIRECTD Rx Instructions: Patient now taking 1 tab daily, 4 days remaining as of 05/26/24 Discharge Orders: Discharge Order (Routine); Ordered 05/29/24 Ordered By: Ana Maria Gonzalez Diet: Advance to usual diet Activity on Discharge: As tolerated Stand Alone Forms: Patient Portal Discharge page Print Language: Martiniquais Care Plan Goals: Continue Azithromycin and Ceftin for 5 more days Prednisone 40 mg for 5 more days Cough medicine as needed Health Concerns: Read below Plan of Treatment: Read below Assessment: Read below
[2024-05-29] MEDS: Azithromycin 500 MG in 0.9 % Sodium Chloride 250 ML 125 MG IV (13:04)
[2024-05-29] MEDS: ondansetron HCL 4 MG/2 ML VIAL IVPUSH (13:05)
--- NOTE | 2024-05-29 13:18 | MHC.CM.PN ---
PT IS CLEARED TO DC HOME TODAY WITH NO SERVICES VIA PRIVATE TRANSPORT
[2024-05-29] MEDS: Acetaminophen 325 MG TABLET 975 MG PO (14:34)
== END 2024-05-29 16:23 | disposition home or self-care (01) | DRG 193 ==
LOC: HO.ED 14:33 → HO.EDOVER 17:49 → HO.IMC 23:30
PROVIDERS: Admitting Provider Student in an Organized Health Care Education/Training Program; Emergency Provider Emergency Medicine; PCP Internal Medicine; Visit Provider Student in an Organized Health Care Education/Training Program
DX: J18.9 Pneumonia, unspecified organism (principal); J96.01 Acute respiratory failure with hypoxia; U07.1 COVID-19; J44.1 Chronic obstructive pulmonary disease with (acute) exacerbation; J44.0 Chronic obstructive pulmonary disease with (acute) lower respiratory infection; E11.65 Type 2 diabetes mellitus with hyperglycemia; G47.33 Obstructive sleep apnea (adult) (pediatric); E11.22 Type 2 diabetes mellitus with diabetic chronic kidney disease; I12.9 Hypertensive chronic kidney disease with stage 1 through stage 4 chronic kidney disease, or unspecified chronic kidney disease; F39 Unspecified mood [affective] disorder; N18.32 Chronic kidney disease, stage 3b; I25.10 Atherosclerotic heart disease of native coronary artery without angina pectoris; Z87.891 Personal history of nicotine dependence; Z95.5 Presence of coronary angioplasty implant and graft; Z86.711 Personal history of pulmonary embolism; Z79.4 Long term (current) use of insulin; Z79.01 Long term (current) use of anticoagulants; Z79.02 Long term (current) use of antithrombotics/antiplatelets; Z79.899 Other long term (current) drug therapy
CPT/HCPCS: 0241U; 36415; 71045; 71275; 80048; 80053; 80076; 82803; 82947; 83605; 83690; 83735; 83880; 84145; 84484; 85025; 85027; 86140; 87040; 93005; 94640; 97162; 99285; J0456; J0696; J1100; J1940; J2405; J3010; J3475

== ENCOUNTER → 2024-05-26 12:47 | Outpatient (BNV) | payer MEDICARE, SELFPAY | PROVIDERS: Emergency Provider Emergency Medicine; Visit Provider Student in an Organized Health Care Education/Training Program | DX: J44.1 Chronic obstructive pulmonary disease with (acute) exacerbation (principal); U07.1 COVID-19 | CPT/HCPCS: 99223; 99232; 99239 ==

== ENCOUNTER → 2024-05-26 12:47 | Outpatient (BNV) | payer MEDICARE, SELFPAY | PROVIDERS: Emergency Provider Emergency Medicine; Visit Provider Internal Medicine Critical Care Medicine | DX: J44.1 Chronic obstructive pulmonary disease with (acute) exacerbation (principal); U07.1 COVID-19; E11.9 Type 2 diabetes mellitus without complications; M17.11 Unilateral primary osteoarthritis, right knee; E55.9 Vitamin D deficiency, unspecified | CPT/HCPCS: 99222 ==

== ENCOUNTER 2024-06-07 08:05 | Outpatient (AMB) | payer MEDICARE, SELFPAY ==
[2024-06-07 08:23] VITALS: BP 122/60; PULSE 78; BMI 34.1
--- NOTE | 2024-06-07 08:23 | A.OFFVIS_ITS ---
Vital Signs 06/07/24 08:23 Height 5 ft 4 in Weight 198 lb 6.656 oz BMI 34.1 BP 122/60 Blood Pressure Location Lt brachial Position Sitting Pulse 78 Pulse Source Monitor Intake Visit Reasons: 3 mth fu _ cath cx'd Allergies Latex, Natural Rubber Allergy (Severe, Verified 05/26/24 11:18) blisters Sulfa (Sulfonamide Antibiotics) [SULFA (SULFONAMIDE ANTIBIOTICS)] Allergy (Mild, Verified 05/26/24 11:18) ITCHING, rash nystatin Allergy (Unknown, Verified 05/26/24 11:18) rash isosorbide [From Imdur] Adverse Reaction (Unknown, Verified 05/26/24 11:18) HEADACHES, headache tizanidine Adverse Reaction (Unknown, Verified 05/26/24 11:18) weakness, Hellucination Medication List - Last Reconciled 06/07/24 by Brian Hughes MD acetaminophen 650 mg (2 x 325 mg) PO Q6H PRN albuterol sulfate 90 mcg/actuation 2 puffs inhalation QID PRN apixaban (Eliquis) 5 mg PO BID atorvastatin 80 mg PO BEDTIME azithromycin 500 mg PO DAILY 5 days benzonatate 100 mg PO BID blood sugar diagnostic (Verysell GroupTouch Verio test strips) Test blood sugar 3 times per day blood-glucose meter (OneTouch Verio Flex Meter) As directed budesonide-formoterol 160-4.5 mcg/actuation (Symbicort) 2 puffs inhalation BID PRN buspirone 5 mg PO BID carvedilol 6.25 mg PO BID 90 days cefuroxime axetil 500 mg PO BID 5 days celecoxib (Celebrex) 200 mg PO BID 30 days cholecalciferol (vitamin D3) 25 mcg PO DAILY citalopram 20 mg PO DAILY clopidogrel 75 mg PO DAILY compr.stocking,thigh,reg,large Thigh High compression stockings 10-20mmHg diltiazem HCl ER 300 mg PO DAILY docusate sodium 100 mg PO BID PRN empagliflozin (Jardiance) 25 mg PO DAILY flash glucose sensor (FreeStyle Kelly 2 Sensor kit) As directed every 2 weeks furosemide 20 mg PO DAILY guaifenesin ER (Mucinex) 600 mg PO BID insulin glargine (Lantus Solostar U-100 Insulin) 25 units (0.25 mL) subcut BEDTIME insulin lispro (Humalog KwikPen (U-100) Insulin) 1 sliding scale dose subcut USEASDIRECTD ipratropium-albuterol 0.5 mg-3 mg(2.5 mg base)/3 mL 3 mL inhalation Q8H PRN lancets (OneTouch Delica Plus Lancet) Test blood sugar 3 times per day lisinopril 20 mg PO DAILY loratadine 10 mg PO DAILY PRN montelukast 10 mg PO BEDTIME pantoprazole 40 mg PO BID@0630,1630 prednisone 40 mg (2 x 20 mg) PO DAILY semaglutide (Ozempic) 2 mg subcut MCWILLIAMS walker As directed HPI Comments Details: Saima comes for follow-up. Patient is having right-sided chest pain is very vague about it. She says she was having chest pain while I was seeing her. She was normal EKG. Her main complaint is exertional shortness of breath which I think most likely related to her COPD. She was recently admitted with COPD exacerbation with hypoxemic respiratory failure treated with antibiotics, steroids and nebulizers. She went in with cough productive of yellowish phlegm, currently having brownish phlegm as per her. No fever or chills. She was supposed to undergo a cardiac catheterization earlier but this was canceled because of fear of her kidney functions. Last creatinine of 1.34. She continues to have intermittent episodes of chest discomfort, she is a very vague historian difficult to get much history. She calls it indigestion. During this COPD exacerbation she was also told that she had mild heart failure. Her troponins were negative despite hypoxemic respiratory failure. Myocardial perfusion imaging in February at shown inferolateral ischemia. She denies any palpitations. No clear orthopnea, PND, leg edema. 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 Father No problems noted. Brother Substance use disorder Brother Substance use disorder Social History Household Members: Family Household Members Other:: 2 Housing: House Do you presently have visiting nurse or other home services: No Alcohol intake: former Patient Tobacco Use Status: Former Tobacco user Tobacco use type: Cigarette Cigarettes Per Day: 10 Years Smoked: 3 e-Cigarette/Vaping Use: Never Used Second Hand Smoke Exposure: No Advance Directives Date on File: 06/29/23 service: No Current occupational status: retired Cognitive needs: No Hearing needs: No Vision needs: No Review of Systems Const Denies weakness ENT Denies dizziness Card Reports chest pain, Denies chest pain with activity, Denies syncope, Denies rapid heart rate, Denies pedal edema, Denies edema, Denies leg edema, Denies lightheadedness, Denies palpitations, Denies dyspnea, Denies dyspnea on exertion and Denies orthopnea Resp Denies cough, Denies dyspnea and Denies dyspnea on exertion GI Denies hematochezia and Denies change in stool character Musc Denies abnormal gait, Denies muscle cramps, Denies muscle weakness, Denies numbness, Denies radiating pain into limb and Denies tingling Neuro Denies abnormal gait, Denies dizziness, Denies syncope, Denies numbness, Denies tingling and Denies weakness Endo Denies palpitations Physical Exam Vital Signs: Last Vital Signs Pulse 78 06/07/24 08:23 BP 122/60 06/07/24 08:23 BMI result Body Mass Index 34.1 Const General: cooperative, healthy appearing, comfortable and no acute distress Orientation/consciousness: patient oriented x3 Neck Neck: Yes normal visual inspection and Yes no JVD Resp Effort & Inspection: normal respiratory effort Auscultation: clear to auscultation bilaterally, no crackles, no rales, no rhonchi and no wheezes Cardio Jugular venous distension: no JVD Rate: regular rate Rhythm: regular rhythm Heart sounds: S1 normal heart sound present, S2 normal heart sound present, Murmur heart sound present (faint systolic) and no rubs Neuro General: patient oriented x3 Extrem General: Yes normal to inspection and No no pedal edema Psych Appearance: grossly normal Mental Status: mental status grossly normal Speech and movement: Normal speech and movement present Office Procedures EKG Details: EKG shows normal sinus rhythm with normal EKG [id number], Complete Assessment & Plan Assessment & Plan (1) CAD (coronary artery disease): Comment: s/p ARMANI to LCX 06/28 Code(s): I25.10 - Atherosclerotic heart disease of [place] coronary artery without angina pectoris Category: Medical Qualifiers: Coronary Disease-Associated Artery/Lesion type: [place] artery [place] vs. transplanted heart: [place] heart Associated angina: with unspecified form of angina Qualified Code(s): I25.119 - Atherosclerotic heart disease of [place] coronary artery with unspecified angina pectoris Plan: CAD status post stenting to the circumflex artery last year with subsequent stress test this is a showing inferolateral ischemia again with vague chest pain syndrome. She had other multiple comorbidities. Although I think the best approach further would be to pursue cardiac catheterization to evaluate for coronary anatomy and stent patency. Discussed with the daughter. Her meanwhile prescribed isosorbide to help with the syndrome although I think her current chest pain pressure indigestion like syndrome does not appear to be cardiac in origin. She is very limited exercise activity due to her COPD which may limit her exertional angina symptoms. Continue dual antiplatelet therapy. Continue carvedilol and Cardizem therapy. Continue high-intensity statin therapy. (2) Heart failure with preserved ejection fraction: Comment: Echo 11/2023 EF>70 %, NO REGIONAL WALL MOTION ABNORMALITIES, NORMAL RIGHT VENTRICULAR SYSTOLIC FUNCTION, MILD Code(s): I50.30 - Unspecified diastolic (congestive) heart failure Category: Medical Plan: Heart failure preserved ejection fraction, more prominent in the setting of COPD exacerbation she was not unusual. Would suggest to continue low-dose diuretic therapy. Continue COPD management. Continue aggressive blood pressure control. Low-salt diet was discussed. Daily weight monitoring was discussed. (3) Paroxysmal atrial fibrillation: Code(s): I48.0 - Paroxysmal atrial fibrillation Category: Medical Plan: Paroxysmal atrial fibrillation which has remained suppressed. Continue carvedilol Cardizem therapy. Need for antiarrhythmic drug therapy continue full oral anticoagulation, currently on Eliquis. Semi annual renal function test should be pursued. Will follow up in the clinic in 6 weeks time, sooner p.r.n.. Thank you for allowing me to partake in his care Medications: New isosorbide mononitrate ER 30 mg PO DAILY 30 tabs 1RF Coding Level of Care Code Est Pt Level 4 (73356) Diagnoses Coronary artery disease involving [place] coronary artery of [place] heart with angina pectoris I25.119 Coronary Disease-Associated Artery/Lesion type: [place] artery [place] vs. transplanted heart: [place] heart Associated angina: with unspecified form of angina Heart failure with preserved ejection fraction I50.30 Paroxysmal atrial fibrillation I48.0 CPT Codes EKG - CPT: [id number], Complete ([id number])
== END 2024-06-07 09:12 | disposition home or self-care (01) ==
PROVIDERS: PCP Internal Medicine; Visit Provider Internal Medicine Cardiovascular Disease
DX: I25.119 Atherosclerotic heart disease of native coronary artery with unspecified angina pectoris (principal); I50.30 Unspecified diastolic (congestive) heart failure; I48.0 Paroxysmal atrial fibrillation
CPT/HCPCS: 93010; 99214

== ENCOUNTER → 2024-06-07 08:05 | Outpatient (BNVA) | payer MEDICARE, SELFPAY | PROVIDERS: PCP Internal Medicine; Visit Provider Internal Medicine Cardiovascular Disease | DX: I25.119 Atherosclerotic heart disease of native coronary artery with unspecified angina pectoris (principal); I50.30 Unspecified diastolic (congestive) heart failure; I48.0 Paroxysmal atrial fibrillation | CPT/HCPCS: 93005; 99212 ==

== ENCOUNTER 2024-06-08 08:14 | Outpatient (AMB) | payer MEDICARE, SELFPAY ==
[2024-06-08 08:20] VITALS: BP 124/74; PULSE 96; O2SAT 98; BMI 33.8
--- NOTE | 2024-06-08 08:20 | A.OFFPC_ITS ---
Vital Signs 06/08/24 08:20 Height 5 ft 4 in Weight 197 lb BMI 33.8 BP 124/74 Blood Pressure Location Lt brachial Position Sitting Pulse 96 Pulse Source Pulse Oximeter Pulse Oximetry (%) 98 Oxygen Delivery Method Room Air Intake Visit Reasons: 1 month follow up Intake Note: Pt is here today for 1 month follow up visit. Allergies Latex, Natural Rubber Allergy (Severe, Verified 06/08/24 08:22) blisters Sulfa (Sulfonamide Antibiotics) [SULFA (SULFONAMIDE ANTIBIOTICS)] Allergy (Mild, Verified 06/08/24 08:22) ITCHING, rash nystatin Allergy (Unknown, Verified 06/08/24 08:22) rash isosorbide [From Imdur] Adverse Reaction (Unknown, Verified 06/08/24 08:22) HEADACHES, headache tizanidine Adverse Reaction (Unknown, Verified 06/08/24 08:22) weakness, Hellucination Medication List - Last Reconciled 06/08/24 by Amanda Leiva MD acetaminophen 650 mg (2 x 325 mg) PO Q6H PRN albuterol sulfate 90 mcg/actuation 2 puffs inhalation QID PRN apixaban (Eliquis) 5 mg PO BID atorvastatin 80 mg PO BEDTIME azithromycin 500 mg PO DAILY 5 days benzonatate 100 mg PO BID blood sugar diagnostic (PomogatelTouch Verio test strips) Test blood sugar 3 times per day blood-glucose meter (OneTouch Verio Flex Meter) As directed budesonide-formoterol 160-4.5 mcg/actuation (Symbicort) 2 puffs inhalation BID PRN buspirone 5 mg PO BID carvedilol 6.25 mg PO BID 90 days celecoxib (Celebrex) 200 mg PO BID 30 days cholecalciferol (vitamin D3) 25 mcg PO DAILY citalopram 20 mg PO DAILY clopidogrel 75 mg PO DAILY compr.stocking,thigh,reg,large Thigh High compression stockings 10-20mmHg diltiazem HCl ER 300 mg PO DAILY docusate sodium 100 mg PO BID PRN empagliflozin (Jardiance) 25 mg PO DAILY flash glucose sensor (FreeStyle Kelly 2 Sensor kit) As directed every 2 weeks furosemide 20 mg PO DAILY insulin glargine (Lantus Solostar U-100 Insulin) 25 units (0.25 mL) subcut BEDTIME insulin lispro (Humalog KwikPen (U-100) Insulin) 1 sliding scale dose subcut USEASDIRECTD ipratropium-albuterol 0.5 mg-3 mg(2.5 mg base)/3 mL 3 mL inhalation Q8H PRN isosorbide mononitrate ER 30 mg PO DAILY lancets (OneTouch Delica Plus Lancet) Test blood sugar 3 times per day lisinopril 20 mg PO DAILY loratadine 10 mg PO DAILY PRN montelukast 10 mg PO BEDTIME pantoprazole 40 mg PO BID@0630,1630 semaglutide (Ozempic) 2 mg subcut MCWILLIAMS walker As directed Tobacco use date assessed: 06/08/24 Dental Screening Dental Screen Date: 12/29/23 HPI 1 month follow up HPI Details Patient presents for the follow-up of hospitalization for community- acquired pneumonia/COVID/COPD exacerbation. Patient is feeling better has been using Symbicort inhaler regularly and CPAP at night. Patient denies chest pain shortness of breath palpitations cough wheezing. Hypertension and AFib are controlled on current medications. Continuous glucose monitoring results reviewed with the patient and her daughter. Blood glucose is usually elevated at around 15:00 up to over 300s. Patient reports eating high carbohydrates load meals including pasta, rice and sweets. She has been following low-dose Humalog sliding scale. 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 Father No problems noted. Brother Substance use disorder Brother Substance use disorder Social History Household Members: Family Household Members Other:: 2 Housing: House Do you presently have visiting nurse or other home services: No Alcohol intake: former Patient Tobacco Use Status: Former Tobacco user Tobacco use type: Cigarette Cigarettes Per Day: 10 Years Smoked: 3 e-Cigarette/Vaping Use: Never Used Second Hand Smoke Exposure: No Advance Directives Date on File: 06/29/23 service: No Current occupational status: retired Cognitive needs: No Hearing needs: No Vision needs: No Questionnaire Thrive Questionnaire Date Thrive assessed: 04/07/24 I am a: Patient What is your living situation today?: I have a steady place to live Within the past 12 months, did the food you bought not last and you didn't have the money to get more?: Never true Within the past 12 months, did you worry whether your food would run out before you got money to buy more?: Never true Do you have trouble paying for medicines?: No Do you have trouble getting transportation to medical appointments?: No Do you have trouble paying your heating and electricity bill?: No Do you have trouble taking care of your child, family member or friend?: No Do you have trouble with day-to-day activities such as bathing, preparing meals, shopping, managing finances, etc.?: No Are you currently unemployed and looking for a job?: No Are you interested in more education?: No Please select the resources that you would like help with: None Currently or been in a relationship where the following occur: No concerns reported THRIVE Score: 0 DOMINIQUE-7 AMB Questionnaire DOMINIQUE-7 Date DOMINIQUE - 7 assessed: 04/07/24 Source: Developed by Drs. Jeronimo Wallis, Saige Barrios, Nj Will and colleagues, with an educational katharine from [employer]. Review of Systems Const All systems reviewed & are unremarkable except as noted in HPI and below ENT Reports no additional complaints Card Reports no additional complaints Resp Reports no additional complaints GI Reports no additional complaints Reports no additional complaints Physical exam (Primary Care) Vital Signs: Last Vital Signs Pulse 96 06/08/24 08:20 BP 124/74 06/08/24 08:20 Pulse Ox 98 06/08/24 08:20 Oxygen Delivery Method Room Air 06/08/24 08:20 BMI result Body Mass Index 33.8 Tobacco/Smoking Status: Tobacco use Status Tobacco use date assessed 06/08/24 06/08/24 08:27 Patient Tobacco Use Status Former Tobacco user 06/08/24 08:27 Tobacco use type Cigarette 06/08/24 08:27 e-Cigarette/Vaping Use Never Used 06/08/24 08:27 Thrive Assessment: Date of Thrive Assessment Date Thrive assessed 04/07/24 06/08/24 08:27 Currently or been in a relationship where the following occur: No concerns reported HENMT Face and sinus: Yes normal facial exam Resp Effort & Inspection: normal respiratory effort Auscultation: clear to auscultation bilaterally Cardio Rhythm: regular rhythm Heart sounds: S1 normal heart sound present and S2 normal heart sound present GI Inspection: Yes normal to inspection Palpation (GI): Soft to palpation Percussion: Yes normal to percussion Auscultation: normal bowel sounds Coding Level of Care Code Est Pt Level 5 (48669) Diagnoses Heart failure with preserved ejection fraction I50.30 CKD stage 3 due to type 2 diabetes mellitus E11.22; N18.30 Asthma with COPD J44.89 DM type 2 (diabetes mellitus, type 2) E11.9 Assessment & Plan Assessment & Plan (1) Heart failure with preserved ejection fraction: Comment: Echo 11/2023 EF>70 %, NO REGIONAL WALL MOTION ABNORMALITIES, NORMAL RIGHT VENTRICULAR SYSTOLIC FUNCTION, MILD Code(s): I50.30 - Unspecified diastolic (congestive) heart failure Category: Medical Plan: Continue current medications (2) CKD stage 3 due to type 2 diabetes mellitus: Code(s): E11.22 - Type 2 diabetes mellitus with diabetic chronic kidney disease; N18.30 - Chronic kidney disease, stage 3 unspecified Category: Medical Plan: Monitor renal function avoid nephrotoxins continue Jardiance (3) Asthma with COPD: Comment: PATIENT HAS LONGSTANDING HISTORY OF BRONCHIAL ASTHMA/COPD. AFTER PROLONGED INTUBATION SHE HAD DEVELOPED TRACHEOMALACIA IN 2009 . SHE UNDERWENT TRACHEO PLASTY AT [facility] AND [facility]OMEN [facility] , LOST FOLLOW-UP OVER THERE WAS IN 2021 INCLUDING A BRONCHOSCOPY AND THERE WAS NO EVIDENCE OF TRACHEOMALACIA. HER MAINTENANCE MEDICAL REGIMEN INCLUDES SYMBICORT 160-4.5 2 PUFFS B.I.D., Since her last visit she is using Symbicort regularly 2 puffs b.i.d.. SHE ALSO HAS NEBULIZER WITH [employer]UTION, TO BE USED P.R.N.. Code(s): J44.89 - Other specified chronic obstructive pulmonary disease Category: Medical Plan: Continue Symbicort and follow-up with pulmonology for obstructive sleep (4) DM type 2 (diabetes mellitus, type 2): Code(s): E11.9 - Type 2 diabetes mellitus without complications Category: Medical Plan: Increase sliding scale coverage with Humalog. ADA diet increase physical activity discussed with the patient continue current medications follow-up in 6 weeks with a fasting labs before Orders: Orders Microalbumin, Random (w Creat) 6 Weeks E11.22 - Type 2 diabetes mellitus with diabetic chronic kidney disease, E11.9 - Type 2 diabetes mellitus without complications, I50.30 - Unspecified diastolic (congestive) heart failure, J44.89 - Other specified chronic obstructive pulmonary disease, N18.30 - Chronic kidney disease, stage 3 unspecified Comprehensive [place]. Panel Fast 6 Weeks E11.22 - Type 2 diabetes mellitus with diabetic chronic kidney disease, E11.9 - Type 2 diabetes mellitus without complications, I50.30 - Unspecified diastolic (congestive) heart failure, J44.89 - Other specified chronic obstructive pulmonary disease, N18.30 - Chronic kidney disease, stage 3 unspecified Hemoglobin A1c 6 Weeks E11.22 - Type 2 diabetes mellitus with diabetic chronic kidney disease, E11.9 - Type 2 diabetes mellitus without complications, I50.30 - Unspecified diastolic (congestive) heart failure, J44.89 - Other specified chronic obstructive pulmonary disease, N18.30 - Chronic kidney disease, stage 3 unspecified Complete Blood Count Auto Diff 6 Weeks E11.22 - Type 2 diabetes mellitus with diabetic chronic kidney disease, E11.9 - Type 2 diabetes mellitus without complications, I50.30 - Unspecified diastolic (congestive) heart failure, J44.89 - Other specified chronic obstructive pulmonary disease, N18.30 - Chronic kidney disease, stage 3 unspecified Lipid Panel 6 Weeks E11.22 - Type 2 diabetes mellitus with diabetic chronic kidney disease, E11.9 - Type 2 diabetes mellitus without complications, I50.30 - Unspecified diastolic (congestive) heart failure, J44.89 - Other specified chronic obstructive pulmonary disease, N18.30 - Chronic kidney disease, stage 3 unspecified Medications: New 2 insulin lispro (Humalog KwikPen (U-100) Insulin) <100, no Humalog, 100-150 6 units, 150-200 10 units, >200 14 units, before each meal, TID 1 sliding scale dose subcut USEASDIRECTD 15 mL 5RF Refilled insulin lispro (Humalog KwikPen (U-100) Insulin) <100, no Humalog, 100-150 6 units, 150-200 10 units, >200 14 units, before each meal, TID 1 sliding scale dose subcut USEASDIRECTD 15 mL 5RF
== END 2024-06-08 09:23 | disposition home or self-care (01) ==
PROVIDERS: PCP Internal Medicine; Visit Provider Internal Medicine
DX: I50.30 Unspecified diastolic (congestive) heart failure (principal); E11.22 Type 2 diabetes mellitus with diabetic chronic kidney disease; N18.30 Chronic kidney disease, stage 3 unspecified; J44.89 Other specified chronic obstructive pulmonary disease

== ENCOUNTER → 2024-06-08 08:14 | Outpatient (BNVA) | payer MEDICARE, SELFPAY | PROVIDERS: PCP Internal Medicine; Visit Provider Internal Medicine | DX: I50.30 Unspecified diastolic (congestive) heart failure (principal); E11.22 Type 2 diabetes mellitus with diabetic chronic kidney disease; N18.30 Chronic kidney disease, stage 3 unspecified; J44.89 Other specified chronic obstructive pulmonary disease | CPT/HCPCS: 99212 ==

== ENCOUNTER 2024-06-21 06:04 | Outpatient (REF) | payer MEDICARE, SELFPAY ==
[2024-06-21 10:19] LABS: Hematocrit 35.9 % (37.0-47.0); Hemoglobin 11.2 g/dl (12.0-16.0); Mean Corpuscular HGB Conc 31.2 g/dl (31.0-35.0); Mean Corpuscular Hemoglobin 27.1 pg (27.0-33.0); Mean Corpuscular Volume 86.7 fL (80.0-98.0); Mean Platelet Volume 10.1 fL (9.4-12.3); Platelet Count 276 X10*3/uL (160-400); Red Blood Count 4.14 X10*6/uL (4.20-5.50); Red Cell Distribution Width 19.2 % (11.0-16.0); White Blood Count 6.2 X10*3/uL (4.8-10.8)
[2024-06-21 10:32] LABS: INTERNATIONAL NORM RATIO 1.2 (0.9-1.1); Prothrombin Time 13.8 SEC (10.9-12.4)
[2024-06-21 11:21] LABS: Anion Gap 15 (12-20); Blood Urea Nitrogen 20 mg/dL (9-16); Calcium 9.3 mg/dL (8.4-10.2); Carbon Dioxide 26 mmol/L (22-29); Chloride 104 mmol/L (96-108); Estimated Glomerular Filt Rate 36; Glucose Random 150 mg/dL (60-115); Potassium 5.1 mmol/L (3.3-5.1); Sodium 140 mmol/L (135-145)
== END 2024-06-21 06:05 | disposition home or self-care (01) ==
LOC: HO.HMGCLDS 06:04
PROVIDERS: PCP Internal Medicine; Referring Provider Internal Medicine Cardiovascular Disease; Visit Provider Internal Medicine
DX: I25.119 Atherosclerotic heart disease of native coronary artery with unspecified angina pectoris (principal); I10 Essential (primary) hypertension; I48.0 Paroxysmal atrial fibrillation
CPT/HCPCS: 36415; 80048; 85027; 85610

== ENCOUNTER → 2024-06-27 23:59 | Outpatient (BNV) | payer MEDICARE, SELFPAY | PROVIDERS: PCP Internal Medicine; Visit Provider Internal Medicine Cardiovascular Disease | DX: I20.89 Other forms of angina pectoris (principal) | CPT/HCPCS: 75710; 76937; 93458; 99152 ==

== ENCOUNTER 2024-07-05 15:08 | Emergency (ER) | payer MEDICARE, SELFPAY ==
[2024-07-05] VITALS (8 sets, daily range): BP systolic 78–121; BP diastolic 29–69; PULSE 56–67; RESP 14–18; TEMP 36.8–37.1; O2SAT 96–98; BMI 33.3
--- NOTE | ~2024-07-05 | MR_ITS ---
EXAMINATION: MR BRAIN WITHOUT CONTRAST CLINICAL INFORMATION: Transient vision loss COMPARISON: CT scan of brain on 07/05/2024 TECHNIQUE: MRI of the brain was obtained using routine sequences without contrast. FINDINGS: Ventricles, sulci and cisterns are related. Extensive confluent, patchy and multifocal T2 hyperintense lesions are seen in bilateral frontal and parietal subcortical and deep white matters, most extensive in bilateral centrum semiovale and neri radiata. Bilateral krystle show extensive confluent T2 hyperintensity. No focal cerebellar lesions with abnormal signal can be seen. Diffusion weighted images show no abnormal regional decrease in diffusion. Normal flow voids of major intracerebral blood vessels are seen in the visualized portion. The pituitary gland is markedly attenuated. Optic chiasm is not displaced. Cerebellar tonsils position is normal. MR/MR head/brain wo con IMPRESSION: 1. Age related cerebral atrophy and ventriculomegaly. 2. Extensive confluent, patchy and multifocal T2 hyperintense lesions in bilateral frontal and parietal subcortical and deep white matter and bilateral krystle. Findings are most consistent with extensive chronic microvascular ischemic changes. 3. No evidence of acute infarction. 4. Markedly atrophic pituitary gland or empty sella syndrome. Electronically signed by: Carly Flowers MD 07/06/2024 01:43 PM EDT
--- NOTE | ~2024-07-05 | CT_ITS ---
EXAMINATION: CT ANGIOGRAM CHEST CLINICAL INFORMATION: Chest pain, hypertension ATELECTASIS. History of ETT. COMPARISON: CTA chest 05/26/2024 TECHNIQUE: Multiple axial images were obtained through the chest after the administration of 65 mL of Omnipaque 350 intravenous contrast. Extensive vascular post-processing including two-dimensional and three-dimensional reformatted images were created and reviewed on an independent workstation. This CT examination was performed using dose optimization techniques as appropriate, variously including the following: *Automated exposure control *Adjustment of mA and/or kV according to patient size (this includes techniques or standardized protocols for targeted exams where dose is matched to indication/reason for exam; i.e. extremities or head) *Use of iterative reconstruction technique DLP: 531 mGy-cm FINDINGS: Vascular: There is good opacification of pulmonary artery and its branches without intraluminal filling defect. There is mild atherosclerotic changes of the arch and the abdominal aorta without aneurysmal dilatation. There is a normal three-vessel branching of the arch. Nonvascular: The central trachea and the bronchi are widely patent. Heart size is mildly enlarged. No pericardial effusion seen. There is mild coronary artery calcifications present. No abnormal sized mediastinal or hilar lymph nodes seen. Thyroid lobes are symmetrical and normal. The lungs are well-expanded with mild thickening of the left superior major fissure and mild bilateral pleural thickening. No pulmonary nodules, mass or consolidation seen. The axillae and the chest wall is unremarkable. Visualized liver, spleen, pancreas and adrenal glands are unremarkable. There is mild ventral spondylosis throughout dorsal spine. No aggressive lytic or sclerotic process seen. There is a bridging bony bar between the left lateral sixth and seventh rib, likely old trauma. Also visualizes old healed fracture left posterior sixth rib. CT/CT angio chest PE protocol IMPRESSION: No evidence of PE. No evidence of aortic aneurysm or dissection. Clear lungs with minimal bilateral posterior pleural thickening. Fleischner guidelines were followed. Electronically signed by: Marco Candelaria MD 07/05/2024 08:59 PM EDT
--- NOTE | ~2024-07-05 | XR_ITS ---
EXAMINATION: XR CHEST CLINICAL INFORMATION: Weakness COMPARISON: None available. TECHNIQUE: Frontal view of the chest was obtained. FINDINGS: The lungs are well-expanded with elevated left hemidiaphragm with likely atelectatic changes left lung base. Rest of the lungs are clear.. There is a surgical staple overlying the left hilum. The heart size and pulmonary vascularity is normal. There is moderate spondylosis dorsal spine. No aggressive lytic or sclerotic process seen. XR/XR chest 1V IMPRESSION: Unremarkable chest exam Electronically signed by: Marco Candelaria MD 07/05/2024 06:05 PM EDT RP
--- NOTE | ~2024-07-05 | CT_ITS ---
EXAMINATION: CT HEAD WITHOUT CONTRAST CLINICAL INFORMATION: Headache and dizziness. COMPARISON: None available. TECHNIQUE: Contiguous axial imaging was performed from the skull base to vertex without intravenous administration of contrast. This CT examination was performed using dose optimization techniques as appropriate, variously including the following: *Automated exposure control *Adjustment of mA and/or kV according to patient size (this includes techniques or standardized protocols for targeted exams where dose is matched to indication/reason for exam; i.e. extremities or head) *Use of iterative reconstruction technique DLP: 780 mGy-cm FINDINGS: There is no acute intra-axial, extra-axial bleed, masses or midline shift. There is no acute infarction evolution. There is no edema. The chne to white matter differentiation is maintained. There is periventricular hypodensity in both cerebral hemispheres without mass effect. The lateral ventricles are symmetrical but moderately enlarged. Windows reveal no calvarial abnormality. There is no scalp soft tissue abnormality. Bilateral paranasal sinuses and mastoid air cells are well-aerated. CT/CT head/brain wo IV con IMPRESSION: No acute intracranial process seen. Electronically signed by: Marco Candelaria MD 07/05/2024 07:56 PM EDT
--- NOTE | 2024-07-05 15:28 | ECG_ITS ---
Test Reason : HYPOTENSION Blood Pressure : / mmHG Vent. Rate : 056 BPM Atrial Rate : 056 BPM P-R Int : 158 ms QRS Dur : 078 ms QT Int : 460 ms P-R-T Axes : -58 032 082 degrees QTc Int : 443 ms Unusual P axis, possible ectopic atrial bradycardia Abnormal ECG When compared with ECG of 26-MAY-2024 12:34, Ectopic atrial rhythm has replaced Sinus rhythm Vent. rate has decreased BY 46 BPM Referred By: Darling Stevens Electronically Signed By:SCOTTIE MONROY
--- NOTE | 2024-07-05 15:28 | CA_ITS ---
Transthoracic Echocardiogram Amended Patient (Last, First, Middle): Saima Restrepo A Gender: Female Date of : 1950 Age: 73 Procedure Date: 07/05/2024 Procedure Type: Transthoracic Echocardiogram Location: ER Height: 162.56 cm Weight: 88. kg BSA: 1.93 m2 Heart Rate: bpm BP: 78 / 29 mmHg Lock Installer: Referring MD: Darling Stevens DO Symptoms: hypotension recent cath concern for effusion Study Quality: Adequate ECG Rhythm: Sinus Conclusions: - The left ventricular systolic function is hyperdynamic. The visually estimated ejection fraction is >70%. - There is severely increased left ventricular wall thickness. - There is severe calcification of the aortic valve. There is mild aortic valve stenosis. - There is moderate mitral annular calcification. Findings Left Ventricle Normal left ventricular cavity size. There is severely increased left ventricular wall thickness. The left ventricular systolic function is hyperdynamic. The visually estimated ejection fraction is >70%. There is no dynamic left ventricular outflow tract obstruction. Evidence suggests grade II (moderate) diastolic dysfunction. Small resting intra-ventricular gradient upto 10-11mmHg; with valsalva, 19mmHg. Right Ventricle Normal right ventricular cavity size and systolic function. Atria The left atrium is moderately dilated. The right atrium is normal in size. Aortic Valve There is severe calcification of the aortic valve. There is mild aortic valve stenosis. There is mild aortic valve regurgitation. Mitral Valve There is moderate mitral annular calcification. There is no mitral valve regurgitation. There is no mitral valve stenosis. Pulmonic Valve The pulmonic valve is likely normal. Tricuspid Valve There is trace tricuspid valve regurgitation. There is no evidence of pulmonary hypertension. Great Vessels The asc aorta is normal in size. Venous The inferior vena cava is normal in size and collapses greater than 50% with inspiration. Pericardium/Pleural Prominent epicardial adipose tissue noted. There is a trivial pericardial effusion. Prior Study Comparison No significant change compared to prior study dated: 11/29/2023. Measurements 2D Linear Measurements IVSd: 1.70 0.6-0.9/0.6-1.0 cm LVIDd: 2.99 3.9-5.3/4.2-5.9 cm LVIDd Index: 1.55 2.4-3.2/2.2-3.1 cm/m2 LVIDs: 2.02 2.0-3.6 cm LVPWd: 1.63 0.7-1.1 cm Ao Root: 3.20 2.1-3.5 cm LA Diam: 3.50 2.7-3.8/3.0-4.0 cm LAIDs Index: 1.81 1.5-2.3 cm/m2 LV Mass: 234.73 67-162/88-224 g LV Mass Index: 121.62 43-95/49-115 g/m2 LVOT Diam: 2.30 3.0+(-)1.3 cm 2D Volumes LA Vol: 52.80 2D Systolic Function EF 4C: 62.50 >55% EF 2C: 58.90 >55% EF BiP: 59.90 >55% Mitral Valve MV VTI: 0.56 MV Pk Yunier: 1.36 MV Mn Yunier: 0.72 MV Pk Grad: 7.00 MV Mn Grad: 3.00 MV Pk E: 1.23 MV PK A: 1.08 MV Decel Time: 378.00 E/A: 1.10 E'Lateral: 7.62 E'Medial: 4.13 E/E' Med: 29.80 E/E' Lat: 16.10 PHT: 111.00 MVA PHT: 1.98 MVA Continuity: 2.58 Decel Kendall: 3.25 Aortic Valve AoV Pk Yunier: 2.57 AoV Mn Yunier: 1.79 AoV VTI: 0.54 AoV Pk Grad: 26.00 Aov Mn Grad: 15.00 KIKI Cont.VTI: 2.66 LVOT LVOT Pk Yunier: 1.21 LVOT Mn Yunier: 0.91 LVOT VTI: 0.35 LVOT Pk Grad: 6.00 LVOT Mn Grad: 4.00 LVOT Diam: 2.30 LVOT Area: 4.15 Diastolic Function MV Pk E: 1.23 MV Pk A: 1.08 E/A: 1.10 E'Medial: 4.13 E/E' Med: 29.80 E' Laterial: 7.62 E/E' Lat: 16.10 Right Ventricle TAPSE (mm): 32.00 TVS' Yunier: 10.00 Tricuspid Valve TR Pk Yunier: 2.00 TR Pk Grad: 16.00 RA Press: 3.00 RVSP: 19.00 Great Vessels Aorta Ao Root-2D: 3.20 2.0-3.7 cm Ao Asc: 3.00 2.1-3.4 cm Pulmonary Valve PV Pk Yunier: 0.91 Peak PV Grad: 3.00 Updated in Other Vendor System with Status of Final Ayan Leblanc MD electronically signed on 07/05/2024 4:53:38 PM with status of Final
--- NOTE | 2024-07-05 15:36 | ED_ITS ---
HPI - Dizziness General Chief Complaint: General Medical Stated Complaint: dizzy, hypotension, foggy vision in R eye Time Seen by Provider: 07/05/24 15:27 Source: patient, EMS and old records reviewed Mode of arrival: EMS Limitations: no limitations History of Present Illness ED Provider: FRANCINE CROUCH Narrative: 73 yo female with PMH Of lung cancer s/p lobectomy, PE on eliquis, PTX, tracheom alaca, COPD, CKA, ALYSIA, HTN, HLD, CAD and NSTEMI with stent, GERD, s/p cardiac cath on 06/27/24 no stents, placed on eliquis and plavix medical management found to have LAD ostial diag 60% stenosis. She presents today with c/o headache and dizziness starting a couple of hours ago. Dizziness occuring when she stands. EMS notes a BP in the low 80s. On arrival here initial BP low and then recheck normal. She denies CP/SOB, GI bleed symptoms, cough, fever, dysuria. She notes she feels dizzy when standing and her R eye gets blurry when she feels dizzy. She took her eliquis today. Daughter notes she really hasn't been well since the cath. She was off her eliquis for days before cath - daughter worried about VTE. Patient also newly lowered lisinopril 20mg to 10mg and then new isosorbide to 60mg from 30mg first dose was today. [facility] ED admit on 07/03 with c/o abdominal pain negative CT scan of abdomen, bedside ECHO reports no effusion, CT scan no acute abnormallity admitted due to unexplained cause of abdominal pain MD elicited complaint: dizziness, lightheadedness and other (headache, low BPs) Onset (ago): day(s) (few hours) Timing: gradual onset and intermittent Severity: moderate Description: lightheadedness and off-balance Context: change in body position History of similar symptoms: No Exacerbating factors: movement/ambulation and change in body position Relieving factors: remaining still Associated symptoms: weakness and other (blurred vision) Related Data Home Medications ?Medication ?Instructions ?Recorded ?Confirmed cholecalciferol (vitamin D3) 25 25 mcg PO DAILY 08/11/23 06/08/24 mcg (1,000 unit) tablet loratadine 10 mg tablet 10 mg PO DAILY PRN Allergy Symptoms 08/11/23 06/08/24 atorvastatin 80 mg tablet 80 mg PO BEDTIME 11/28/23 06/08/24 buspirone 5 mg tablet 5 mg PO BID 11/28/23 06/08/24 furosemide 20 mg tablet 20 mg PO DAILY 11/28/23 06/08/24 montelukast 10 mg tablet 10 mg PO BEDTIME 11/28/23 06/08/24 albuterol sulfate 90 mcg/actuation 2 puff inhalation QID PRN 05/17/24 06/08/24 aerosol inhaler SOB/wheezing budesonide-formoterol HFA 160 2 puff inhalation BID PRN SOB 05/17/24 06/08/24 mcg-4.5 mcg/actuation aerosol inhaler (Symbicort) citalopram 20 mg tablet 20 mg PO DAILY 05/17/24 06/08/24 benzonatate 100 mg capsule 100 mg PO BID 05/26/24 06/08/24 pantoprazole 40 mg tablet,delayed 40 mg PO BID@0630,1630 05/26/24 06/08/24 release semaglutide 2 mg/dose (8 mg/3 mL) 2 mg subcut MCWILLIAMS 05/26/24 06/08/24 subcutaneous pen injector (Ozempic) Previous Rx's ?Medication ?Instructions ?Recorded walker #1 ea 02/28/23 acetaminophen 325 mg tablet 650 mg (2 x 325 mg) PO Q6H PRN 08/22/23 pain #30 tabs docusate sodium 100 mg capsule 100 mg PO BID PRN Constipation #30 08/22/23 caps empagliflozin 25 mg tablet 25 mg PO DAILY #90 tabs 09/21/23 (Jardiance) apixaban 5 mg tablet (Eliquis) 5 mg PO BID #180 tabs 09/27/23 diltiazem HCl 300 mg capsule,24 300 mg PO DAILY #90 caps 12/22/23 hr,extended release ipratropium 0.5 mg-albuterol 3 mg 3 ml inhalation Q8H PRN wheezing 12/29/23 (2.5 mg base)/3 mL nebulization #180 mL soln lisinopril 20 mg tablet 20 mg PO DAILY #90 tabs 01/04/24 compr.stocking,thigh,reg,large #2 ea 02/08/24 insulin glargine 100 unit/mL (3 25 unit (0.25 mL) subcut BEDTIME 02/22/24 mL) subcutaneous pen (Lantus #15 mL Solostar U-100 Insulin) blood sugar diagnostic (OneTouch #100 ea 03/06/24 Verio test strips) blood-glucose meter (OneTouch #1 ea 03/06/24 Verio Flex Meter) lancets 30 gauge (OneTouch Delica #100 ea 03/06/24 Plus Lancet) clopidogrel 75 mg tablet 75 mg PO DAILY #90 tabs 03/07/24 celecoxib 200 mg capsule (Celebrex) 200 mg PO BID 30 days #60 caps 04/12/24 carvedilol 6.25 mg tablet 6.25 mg PO BID 90 days #180 tabs 05/09/24 flash glucose sensor (FreeStyle #6 ea 05/09/24 Kelly 2 Sensor kit) azithromycin 500 mg tablet 500 mg PO DAILY 5 days #5 tabs 05/29/24 isosorbide mononitrate 30 mg 30 mg PO DAILY #30 tabs 06/07/24 tablet,extended release 24 hr insulin lispro 100 unit/mL 1 sliding scale dose subcut 06/08/24 subcutaneous pen (Humalog KwikPen USEASDIRECTD #15 mL (U-100) Insulin) Allergies Allergy/AdvReac Type Severity Reaction Status Date / Time Latex, Natural Rubber Allergy Severe blisters Verified 07/05/24 15:37 Sulfa (Sulfonamide Allergy Mild ITCHING, Verified 07/05/24 15:37 Antibiotics) rash [SULFA (SULFONAMIDE ANTIBIOTICS)] nystatin Allergy Unknown rash Verified 07/05/24 15:37 isosorbide [From Imdur] AdvReac Unknown HEADACHES, Verified 07/05/24 15:37 headache tizanidine AdvReac Unknown weakness, Verified 07/05/24 15:37 Hellucination Review of Systems Review of Systems: Constitutional : No Fever, No Chills, No Fatigue ENT/Mouth : No sore throat, No Rhinorrhea Eyes: No Eye Pain, No Swelling, No Redness Cardiovascular : No Chest Pain, No SOB, No Dyspnea on Exertion Respiratory : No Cough, No Sputum Gastrointestinal : No Nausea, No Vomiting, No Diarrhea, No abdominal Pain Genitourinary : No Dysuria, No Urinary Frequency, No Hematuria, Musculoskeletal : No joint pain, No Myalgias, No Joint Swelling Skin : No Skin Lesions, No rash Neuro : No Weakness, No Numbness, pos Dizziness, positive Headache Psych : No Anxiety/Panic, No Depression All other systems reviewed and are negative [facility] Past Medical History Attestation statement: The following information was validated with the patient. 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 Father No problems noted. Brother Substance use disorder Brother Substance use disorder Social History Social History Household Members: Family Household Members Other:: 2 Housing: House Do you presently have visiting nurse or other home services: No Alcohol intake: former Patient Tobacco Use Status: Former Tobacco user Tobacco use type: Cigarette Cigarettes Per Day: 10 Years Smoked: 3 Smoked in Last 30 Days: No e-Cigarette/Vaping Use: Never Used Second Hand Smoke Exposure: No Use of substances other than those prescribed or required for medical reasons: No Advance Directives Date on File: 06/29/23 Do you have a plan to hurt others: No Plan service: No Current occupational status: retired Cognitive needs: No Hearing needs: No Vision needs: No Physical Exam Vital Signs: Vital Signs: Last Vital Signs Temp 98.2 F 07/05/24 15:19 Pulse 56 07/05/24 15:19 Resp 18 07/05/24 15:19 BP 78/29 L 07/05/24 15:19 Pulse Ox 98 07/05/24 15:19 O2 Del Method Room Air 07/05/24 15:19 BMI result Body Mass Index 33.3 Appearance: Alert. Oriented X3. No acute distress. Eyes: Pupils equal, round and reactive to light. ENT: Pharynx normal. Neck: Normal inspection. Neck supple. CVS: Normal heart rate and rhythm. Pulses normal. Respiratory: No respiratory distress. Breath sounds normal. Abdomen: Soft and nontender. Skin: Skin warm and dry. Normal skin color. Normal skin turgor. Extremities: No lower extremity edema. No calf ttp Neuro: Oriented X 3. No motor deficit. No sensory deficit. Course Course Course Narrative: signed out to Dr. Gil pending workup ECHO - no tamponade and normal wall motion prelim Medications Administered Generic Name Dose Route Start Last Admin Trade Name Freq PRN Reason Stop Dose Admin Sodium Chloride 1,000 mls @ 999 mls/hr 07/05/24 15:29 07/05/24 15:41 Ns IV 07/05/24 16:29 999 mls/hr .Q1H1M ONE Administration Albumin Human 100 mls @ 133.333 mls/hr 07/05/24 16:00 07/05/24 16:02 Kedbumin 25 % IV 07/05/24 17:44 133.33 mls/hr Q1H LOU Administration Medical Decision Making Medical Decision Making [facility] Narrative: 73 yo female with PMH Of lung cancer s/p lobectomy, PE on eliquis, PTX, tracheomalaca, COPD, CKA, ALYSIA, HTN, HLD, CAD and NSTEMI with stent, GERD, s/p cardiac cath on 06/27/24 no stents here with c/o dizziness when standing, R eye and headache with mild intermittent blurred vision though resolved now - she has no CP/SOB, GIB symptoms or infectious symptoms at this time her BP is low but there is concern for volume overload will dose with 1L NS and albumin dose, she will get CT of head given DOAC and headache, CXR, UA - though denies infectious causes. On limited bedside ECHO there was possible effusion and she is 8 days out of cath will ask for formal ECHO to rule out tamponade physiology. CTA for PE given her chest pain and lack of eliquis, could also be related to new dose of isosorbide today. Has PAD in RUE so BPs to be done on L side I have notified RN that these could be falsely low. Differential Diagnosis Differential Diagnoses: The differential diagnosis associated with the presentation includes anemia, dehydration, tamponade, doubt VTE has been on eliquis and plavix - no CP/SOB GIB headache - ICH Admission/Observation Consideration of admission/observation: Escalation of care including admission/observation considered Consult Healthcare Provider Management of the patient was discussed with: Credentialing Analyst Lab Data [facility] Lab Attestation statement: I reviewed the patient's lab results. Independent Interpretation I performed an independent interpretation of an: EKG, Plain X-Ray and CT Scan Interpretation: Rate: 56 Rhythm: sinus bradycardia [place]: normal Normal P waves. Normal JASMYN. Normal QRS complex. ST T wave : no JOHN inverted t waves aVL, no JOHN qTC: 443 prior studies: prior t wave inversion in past The study has been interpreted contemporaneously by me. . Radiology Impression Discussion of test interpretation with radiology: I have reviewed the radiologist's reading. Discharge Plan Discharge Clinical Impression: Dizziness Patient Disposition: Still a Patient Prescriptions: No Action Jardiance 25 mg tablet 25 mg PO DAILY Qty: 90 1RF diltiazem HCl 300 mg capsule,extended release 24 hr 300 mg PO DAILY Qty: 90 1RF (DME) compr.stocking,thigh,reg,large Misc See Rx Instructions .Route Qty: 2 3RF Rx Instructions: Thigh High compression stockings 10-20mmHg insulin glargine [Lantus Solostar U-100 Insulin] 100 unit/mL (3 mL) insulin pen 25 unit subcut BEDTIME Qty: 15 1RF (DME) blood-glucose meter [OneTouch Verio Flex meter] Misc See Rx Instructions .Route Qty: 1 0RF Rx Instructions: As directed (DME) OneTouch Verio test strips Strip See Rx Instructions .Route Qty: 100 11RF Rx Instructions: Test blood sugar 3 times per day (DME) lancets [OneTouch Delica Plus Lancet] 30 gauge misc See Rx Instructions .Route Qty: 100 11RF Rx Instructions: Test blood sugar 3 times per day clopidogrel 75 mg tablet 75 mg PO DAILY Qty: 90 1RF carvedilol 6.25 mg tablet 6.25 mg PO BID 90 Days Qty: 180 3RF Rx Instructions: must administer with a meal/food (DME) FreeStRebtel Kelly 2 Sensor Kit See Rx Instructions .ROUTE .MEDSUPPLY Qty: 6 3RF Rx Instructions: As directed every 2 weeks (DME) belgica [place] [facility] [place] See Rx Instructions .Route Qty: 1 0RF Rx Instructions: As directed loratadine 10 mg Tablet 10 mg PO DAILY PRN (Reason: Allergy Symptoms) cholecalciferol (vitamin D3) 25 mcg (1,000 unit) Tablet 25 mcg PO DAILY docusate sodium 100 mg Capsule 100 mg PO BID PRN (Reason: Constipation) Qty: 30 0RF acetaminophen 325 mg Tablet 650 mg PO Q6H PRN (Reason: pain) Qty: 30 0RF albuterol sulfate 90 mcg/actuation Hfa Aerosol Inhaler 2 puff INHALATION QID PRN (Reason: SOB/wheezing) citalopram 20 mg tablet 20 mg PO DAILY budesonide-formoterol [Symbicort] 160-4.5 mcg/actuation HFA aerosol inhaler 2 puff INHALATION BID PRN (Reason: SOB) buspirone 5 mg tablet 5 mg PO BID furosemide 20 mg tablet 20 mg PO DAILY montelukast 10 mg tablet 10 mg PO BEDTIME atorvastatin 80 mg tablet 80 mg PO BEDTIME benzonatate 100 mg capsule 100 mg PO BID Rx Instructions: 6 days remaining in course beginning 02/23/24 pantoprazole 40 mg tablet,delayed release (DR/EC) 40 mg PO BID@0630,1630 Ozempic 2 mg/dose (8 mg/3 mL) pen injector 2 mg subcut MCWILLIAMS azithromycin 500 mg tablet 500 mg PO DAILY 5 Days Qty: 5 0RF ipratropium-albuterol 0.5 mg-3 mg(2.5 mg base)/3 mL solution for nebulization 3 ml inhalation Q8H PRN (Reason: wheezing) Qty: 180 3RF Eliquis 5 mg tablet 5 mg PO BID Qty: 180 3RF celecoxib [Celebrex] 200 mg capsule 200 mg PO BID 30 Days Qty: 60 3RF lisinopril 20 mg tablet 20 mg PO DAILY Qty: 90 1RF Rx Instructions: Dose increased isosorbide mononitrate 30 mg tablet extended release 24 hr 30 mg PO DAILY Qty: 30 1RF insulin lispro [Humalog KwikPen Insulin] 100 unit/mL insulin pen 1 sliding scale dose SUBCUT USEASDIRECTD Qty: 15 5RF Rx Instructions: <100, no Humalog, 100-150 6 units, 150-200 10 units, >200 14 units, before each meal, TID Print Language: Eritrean
[2024-07-05] MEDS: 0.9 % Sodium Chloride 1,000 ML 999 ML IV (15:41)
[2024-07-05] MEDS: Albumin Human 25 % 100 ML 133.33 ML IV ×2 (16:02→16:58)
[2024-07-05 16:28] LABS: MANUAL DIFF FLAG NO
[2024-07-05 16:30] LABS: Basophils Absolute Auto 0.1 X10*3/uL (0.0-0.2); Eosinophils Absolute Auto 0.4 X10*3/uL (0.0-0.4); Eosinophils Percent Auto 4.1 % (0-4); Hematocrit 30.2 % (37.0-47.0); Hemoglobin 9.6 g/dl (12.0-16.0); Imm Gran Abs Auto 0.06 X10*3/uL (0.00-0.03); Imm Gran Pct Auto 0.6 % (0.0-0.4); Lymphocytes Absolute Auto 1.7 X10*3/uL (1.2-4.9); Mean Corpuscular HGB Conc 31.8 g/dl (31.0-35.0); Mean Corpuscular Hemoglobin 27.7 pg (27.0-33.0); Monocytes Absolute Auto 0.9 X10*3/uL (0.1-1.2); Monocytes Percent Auto 9.1 % (2-11); Neutrophils Absolute Auto 7.1 x10*3/uL (2.0-8.3); Neutrophils Percent Auto 69.2 % (45-73); Platelet Count 318 X10*3/uL (160-400); Red Blood Count 3.47 X10*6/uL (4.20-5.50); Red Cell Distribution Width 17.7 % (11.0-16.0); White Blood Count 10.3 X10*3/uL (4.8-10.8)
[2024-07-05 16:41] LABS: Partial Thromboplastin Time 38.5 SEC (26.0-36.8)
[2024-07-05 16:49] LABS: Alanine Aminotransferase 15 U/L (0-31); Albumin Level 3.6 g/dL (3.5-5.0); Alkaline Phosphatase 97 U/L (39-117); Anion Gap 15 (12-20); Aspartate Amino Transferase 17 U/L (5-31); Bilirubin Direct 0.1 mg/dL (0.0-0.5); Bilirubin Total 0.4 mg/dL (0.0-1.0); Blood Urea Nitrogen 23 mg/dL (9-16); C Reactive Protein 0.21 mg/dL (< or = 0.50); Calcium 8.3 mg/dL (8.4-10.2); Carbon Dioxide 25 mmol/L (22-29); Chloride 104 mmol/L (96-108); Creatinine Clr Calc Pharmacy 33.4; Estimated Glomerular Filt Rate 32; Glucose Random 179 mg/dL (60-115); Lipase 37 U/L (8-78); Magnesium 2.1 mg/dL (1.6-2.6); Potassium 4.7 mmol/L (3.3-5.1); Sodium 139 mmol/L (135-145); Total Protein 6.2 g/dL (6.5-8.0)
[2024-07-05 16:56] LABS: Troponin-I High Sensitivity 6.5 ng/L (<3.5-17.0)
[2024-07-05 17:15] LABS: VBG Base Excess 2.8 mmol/L; VBG HCO3 25 mmol/L (22-26); VBG pCO2 32 mmHg; VBG pO2 79 mmHg
[2024-07-05 17:23] LABS: Lactic Acid 2.2 mmol/L (0.5-2.0)
[2024-07-05 17:24] LABS: Venous Blood Gas Refer to POC result
[2024-07-05 17:50] LABS: Influenza A PCR NEGATIVE (Negative); Influenza B PCR NEGATIVE (Negative); Resp Syncy Virus RNA Qual PCR NEGATIVE (Negative); SARS COV2 PCR INHOUSE NEGATIVE (Negative)
--- NOTE | 2024-07-05 18:01 | PC.NURSE ---
Late charting d/t pt care. Pt comes from home for dizziness/hypotension that started this morning. Per pt she had a headache/dizziness and new onset R eye vision changes so she took her BP at home, 80s/60s. Pt states she was recently d/c from [facility] with no findings. Recent cardiac cath through right wrist. Upon arrival pt BP 70/30s on right arm, 100s/40s on left side. Manual BP done by this RN, 86/54. MD Stevens at bedside for ultrasound of pt heart. 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 Echo at bedside for evaluation, ekg and labs obtained and sent to lab. Per MD Stevens, BP on right side may be falsely low d/t recent procedure. BP taken on L side and increased into the 100s/40s. Daughter at bedside, call cevallos within reach all needs met at this time.
[2024-07-05] MEDS: iohexoL 350 MG/ML 100 ML INFUS..BTL 65 ML IV (18:19)
[2024-07-05 18:58] LABS: Reflex Lactate? Lactic Acid Added
[2024-07-05 19:26] LABS: ~Lactic Acid-LAB USE ONLY 1.9 mmol/L (0.5-2.0)
[2024-07-05 21:21] LABS: Appearance Urine Clear; Color Urine Yellow; Glucose Urine UA Negative (Negative); Leukocyte Esterase Urine Small (1+) (Negative); Nitrite Urine Negative (Negative); Specific Gravity - Urine >= 1.030 (1.005-1.025); UMIC TRIGGER UACC YES; Urine Blood Negative (Negative); Urine Ketones Negative (Negative); Urine Protein Negative (Neg-Trace)
[2024-07-05 21:34] LABS: Bacteria Urine None Seen (None Seen); Hyaline Casts Urine 0-2 /LPF (0-2); RBC Urine 0-2 /HPF (0-2); UACC Culture Trigger YES; WBC Urine 0-5 /HPF (0-5)
[2024-07-05 21:41] LABS: Lactic Acid 1.7 mmol/L (0.5-2.0)
[2024-07-05 21:43] LABS: Anion Gap 14 (12-20); Blood Urea Nitrogen 25 mg/dL (9-16); Calcium 7.9 mg/dL (8.4-10.2); Carbon Dioxide 23 mmol/L (22-29); Chloride 106 mmol/L (96-108); Creatinine Clr Calc Pharmacy 31.6; Estimated Glomerular Filt Rate 30; Glucose Random 201 mg/dL (60-115); Potassium 4.1 mmol/L (3.3-5.1); Sodium 139 mmol/L (135-145)
[2024-07-05] MEDS: Acetaminophen 325 MG TABLET 975 MG PO (21:51)
[2024-07-05 21:52] LABS: Troponin-I High Sensitivity 5.3 ng/L (<3.5-17.0)
[2024-07-05] MEDS: Prochlorperazine Edisylate 10 MG/2 ML VIAL IVPUSH (21:53)
[2024-07-06] VITALS (8 sets, daily range): BP systolic 118–184; BP diastolic 36–81; PULSE 71–85; RESP 16–21; TEMP 36.7–37.2; O2SAT 93–97
[2024-07-06 02:11] LABS: B Type Natriuretic Peptide 80 pg/mL (<100)
[2024-07-06] MEDS: 0.9 % Sodium Chloride 500 ML IV (02:21)
--- NOTE | 2024-07-06 06:03 | PC.NURSE ---
Pt has been up and ambulating to bathroom 2-3 times with steady gait, no acute distress.
[2024-07-06 08:01] LABS: Anion Gap 16 (12-20); Blood Urea Nitrogen 20 mg/dL (9-16); Calcium 8.8 mg/dL (8.4-10.2); Carbon Dioxide 24 mmol/L (22-29); Chloride 107 mmol/L (96-108); Creatinine Clr Calc Pharmacy 40.7; Estimated Glomerular Filt Rate 41; Glucose Random 143 mg/dL (60-115); Potassium 4.2 mmol/L (3.3-5.1); Sodium 143 mmol/L (135-145)
--- NOTE | 2024-07-06 09:14 | PC.NURSE ---
report given to dylan RN, patient to go to overflow 5
[2024-07-06 13:34] LABS: Glucose, Whole Blood 129 mg/dL (60-115)
== END 2024-07-06 16:17 | disposition home or self-care (01) ==
PROVIDERS: Emergency Medicine; Emergency Provider Student in an Organized Health Care Education/Training Program
DX: R42 Dizziness and giddiness (principal); R00.1 Bradycardia, unspecified; I95.9 Hypotension, unspecified; H53.8 Other visual disturbances; R51.9 Headache, unspecified; R06.02 Shortness of breath; R11.2 Nausea with vomiting, unspecified; I25.10 Atherosclerotic heart disease of native coronary artery without angina pectoris; I10 Essential (primary) hypertension; R07.89 Other chest pain; Z03.818 Encounter for observation for suspected exposure to other biological agents ruled out; Z79.01 Long term (current) use of anticoagulants; Z86.711 Personal history of pulmonary embolism; Z79.899 Other long term (current) drug therapy
CPT/HCPCS: 0241U; 36415; 70450; 70551; 71045; 71275; 80048; 80076; 81001; 82803; 82947; 83605; 83690; 83735; 83880; 84484; 85025; 85730; 86140; 87040; 87086; 87147; 87205; 93005; 93306; 96361; 96365; 96375; 99285; J0737; P9047; Q9967

== ENCOUNTER → 2024-07-05 15:28 | Outpatient (BNV) | payer MEDICARE, SELFPAY | PROVIDERS: Emergency Provider Student in an Organized Health Care Education/Training Program; Visit Provider Internal Medicine | DX: I95.9 Hypotension, unspecified (principal) | CPT/HCPCS: 93010; 93306 ==

== ENCOUNTER 2024-07-11 13:54 | Outpatient (AMB) | payer MEDICARE, SELFPAY ==
[2024-07-11 14:05] VITALS: BP 130/60; PULSE 88; O2SAT 97
--- NOTE | 2024-07-11 14:05 | MHC.OFFVIS ---
Vital Signs 07/11/24 14:05 Weight 200 lb 9.93 oz BP 130/60 Blood Pressure Location Rt brachial Position Sitting Pulse 88 Pulse Source Pulse Oximeter Pulse Oximetry (%) 97 Oxygen Delivery Method Room Air Intake Visit Reasons: copd Coating And Baking Operator Required: No Lumber Trimmer: Lumber Trimmer offered & declined Accompanied by: Daughter Allergies Latex, Natural Rubber Allergy (Severe, Verified 07/11/24 14:45) blisters Sulfa (Sulfonamide Antibiotics) [SULFA (SULFONAMIDE ANTIBIOTICS)] Allergy (Mild, Verified 07/11/24 14:45) ITCHING, rash nystatin Allergy (Unknown, Verified 07/11/24 14:45) rash isosorbide [From Imdur] Adverse Reaction (Unknown, Verified 07/11/24 14:45) HEADACHES, headache tizanidine Adverse Reaction (Unknown, Verified 07/11/24 14:45) weakness, Hellucination Medication List - Last Reconciled 07/11/24 by Bart Bernard MD acetaminophen 650 mg (2 x 325 mg) PO Q6H PRN albuterol sulfate 90 mcg/actuation 2 puffs inhalation QID PRN apixaban (Eliquis) 5 mg PO BID atorvastatin 80 mg PO BEDTIME blood sugar diagnostic (RotaBanTouch Verio test strips) Test blood sugar 3 times per day blood-glucose meter (OneTouch Verio Flex Meter) As directed budesonide-formoterol 160-4.5 mcg/actuation (Symbicort) 2 puffs inhalation BID PRN buspirone 5 mg PO BID carvedilol 6.25 mg PO BID 90 days celecoxib (Celebrex) 200 mg PO BID 30 days cholecalciferol (vitamin D3) 25 mcg PO DAILY citalopram 20 mg PO DAILY clopidogrel 75 mg PO DAILY compr.stocking,thigh,reg,large Thigh High compression stockings 10-20mmHg diltiazem HCl ER 300 mg PO DAILY docusate sodium 100 mg PO BID PRN empagliflozin (Jardiance) 25 mg PO DAILY flash glucose sensor (FreeStyle Kelly 2 Sensor kit) As directed every 2 weeks furosemide 20 mg PO DAILY insulin glargine (Lantus Solostar U-100 Insulin) 25 units (0.25 mL) subcut BEDTIME insulin lispro (Humalog KwikPen (U-100) Insulin) 1 sliding scale dose subcut USEASDIRECTD ipratropium-albuterol 0.5 mg-3 mg(2.5 mg base)/3 mL 3 mL inhalation Q8H PRN isosorbide mononitrate ER 30 mg PO DAILY lancets (OneTouch Delica Plus Lancet) Test blood sugar 3 times per day lisinopril 20 mg PO DAILY loratadine 10 mg PO DAILY PRN montelukast 10 mg PO BEDTIME pantoprazole 40 mg PO BID@0630,1630 semaglutide (Ozempic) 2 mg subcut MCWILLIAMS sennosides-docusate sodium 8.6-50 mg (Stimulant Laxative Plus) 2 tabs PO BID simethicone 80 mg PO QID PRN walker As directed Do you need a note to return to daycare/school/sports/work: No HPI HPI copd: Details: Saima, 73 years old female, has history of obstructive sleep apnea, and also chronic asthma/COPD syndrome. Past history of tracheomalacia, has been treated with tracheo plasty and stent placement. Breathing status has remained very stable, she has had. no respiratory infection Has mild intermittent cough but no wheezing. Gets short of breath on walking around or climbing stairs, Overall her breathing status is remaining very stable at this time. She also has obstructive sleep apnea has been using CPAP but not since our last visit. She was using intermittently but. now she is not using it all Claims that she wakes up few times during the night with shortness of breath and feeling of choking. She does have some sleepiness and tired feeling during the daytime. [facility] Medical History DM type 2 (diabetes mellitus, type 2) CAD (coronary artery disease) Non-ST elevation [place] (NSTEMI) Patellofemoral arthritis of right knee Vitamin D deficiency Right knee pain MCFP current use of anticoagulant Abnormal stress test Hypertension Obstructive sleep apnea Asthma with COPD Anemia CKD stage 3 due to type 2 diabetes mellitus Tracheomalacia, acquired History of pulmonary embolism AG (acute kidney injury) Paroxysmal atrial fibrillation Pulmonary embolism Obesity Dyslipidemia MCFP (current) use of insulin Respiratory failure COPD (chronic obstructive pulmonary disease) Surgical History History of carpal tunnel surgery History of cholecystectomy History of lobectomy of lung Status post tracheoplasty History of cardiac cath Family History Mother No problems noted. Father No problems noted. Brother Substance use disorder Brother Substance use disorder Social History (Updated 07/11/24 @ 14:12 by Leandra Martinez LPN) Household Members: Family Household Members Other:: 2 Housing: House Do you presently have visiting nurse or other home services: No Alcohol intake: former Patient Tobacco Use Status: Former Tobacco user Tobacco use type: Cigarette Cigarettes Per Day: 10 Years Smoked: 3 e-Cigarette/Vaping Use: Never Used Second Hand Smoke Exposure: No Advance Directives Date on File: 06/29/23 service: No Current occupational status: retired Cognitive needs: No Hearing needs: No Vision needs: No Review of Systems Const All systems reviewed & are unremarkable except as noted in HPI and below ENT Reports nasal congestion (off and on . ) Card Denies chest pain, Denies irregular heart rhythm, Denies leg edema and Reports dyspnea on exertion Resp Reports cough (mild off and on ), Reports dyspnea on exertion and Denies wheezing GI Denies no additional complaints Musc Reports no additional complaints Neuro Reports no additional complaints Psych Reports no additional complaints Aller/Immun Denies wheezing Physical Exam Vital Signs: Last Vital Signs Pulse 88 07/11/24 14:05 BP 130/60 07/11/24 14:05 Pulse Ox 97 07/11/24 14:05 Oxygen Delivery Method Room Air 07/11/24 14:05 Const General: healthy appearing, comfortable, no acute distress, alert and awake Orientation/consciousness: patient oriented x3 HEENT Head: Yes normal to inspection General nose exam: No nasal polyps present and No nasal discharge present Face and sinus: Yes sinuses nontender Mouth: oropharynx normal Throat: Yes posterior oropharynx normal Eyes General: appearance normal, both eyes and all related structures Neck Neck: Yes normal visual inspection, Yes no lymphadenopathy, Yes trachea midline and Yes no JVD Thyroid: Thyroid normal Chest Chest palpation & inspection: normal inspection of the chest, normal palpation of entire chest wall and no tenderness Resp Other: Percussion note is resonant, breath sounds are distant but equal on both sides. No audible wheezes or crepitations. Cardio Palpation: normal PMI Rate: regular rate Rhythm: regular rhythm Heart sounds: no gallops and no murmurs GI Inspection: Yes other (There is ventral herniation in the upper part of the abdomen) Palpation (GI): Soft to palpation, nontender, No hepatosplenomegaly present and no masses Auscultation: normal bowel sounds Back/Spine/Pelvis Thoracic/Lumbar Spine: thoracic and lumbar spine normal to inspection Skin General skin exam: no rashes or lesions noted Neuro General: patient oriented x3 and no focal motor deficits Cranial nerves: Yes CN's II-XII intact bilaterally Extrem General: Yes normal to inspection, Yes no clubbing, cyanosis or edema and Yes no calf tenderness Psych Appearance: grossly normal and well kempt Speech and movement: Normal speech and movement present Assessment & Plan Assessment & Plan (1) Obstructive sleep apnea: Comment: SHE HAS CHRONIC OBSTRUCTIVE SLEEP APNEA/HYPOVENTILATION SYNDROME. She used to be on CPAP therapy. But has not used the CPAP since 2020. Recently admitted to [facility] with an acute exacerbation of COPD. She was treated with the CPAP and she tolerated it well She had a sleep study at [facility], and she did respond to CPAP of 10 cm. A new CPAP device was ordered which she does have at home , and it is functional. However she has not use the CPAP. Claiming that she does not like to have the moisture on her face. On her last visit her machine was checked and we had explained to her how to use the humidification chamber. Still she has not been using regularly. Claims that she does wake up a few times with choking like feeling. Code(s): G47.33 - Obstructive sleep apnea (adult) (pediatric) Category: Medical Plan: I discussed with her in presence of her daughter and explained that it is important for her to use the CPAP every night. In the beginning even if she uses for a few hours and then increases to at least 4 hours a night would be okay . Explained to her the benefits of using the CPAP. She said she is going to try. (2) Asthma with COPD: Comment: PATIENT HAS LONGSTANDING HISTORY OF BRONCHIAL ASTHMA/COPD. AFTER PROLONGED INTUBATION SHE HAD DEVELOPED TRACHEOMALACIA IN 2009 . SHE UNDERWENT TRACHEO PLASTY AT [facility] AND [facility] , LOST FOLLOW-UP OVER THERE WAS IN 2021 INCLUDING A BRONCHOSCOPY AND THERE WAS NO EVIDENCE OF TRACHEOMALACIA. HER MAINTENANCE MEDICAL REGIMEN INCLUDES SYMBICORT 160-4.5 2 PUFFS B.I.D., Since her last visit she is using Symbicort regularly 2 puffs b.i.d.. SHE ALSO HAS NEBULIZER WITH DUONEB SOLUTION, TO BE USED P.R.N.. Code(s): J44.89 - Other specified chronic obstructive pulmonary disease Category: Medical Plan: Symbicort 160-4.5 2 puffs b.i.d.. Ipratropium-albuterol solution in the nebulizer Q 6 hours p.r.n. Coding Level of Care Code Est Pt Level 3 (72312) Diagnoses Obstructive sleep apnea G47.33 Asthma with COPD J44.89
== END 2024-07-11 14:25 | disposition home or self-care (01) ==
LOC: HO.HPS 13:54
PROVIDERS: PCP Internal Medicine; Visit Provider Internal Medicine
DX: G47.33 Obstructive sleep apnea (adult) (pediatric) (principal); J44.89 Other specified chronic obstructive pulmonary disease
CPT/HCPCS: 99213

== ENCOUNTER → 2024-07-11 13:54 | Outpatient (BNVA) | payer MEDICARE, SELFPAY | PROVIDERS: PCP Internal Medicine; Visit Provider Internal Medicine | DX: G47.33 Obstructive sleep apnea (adult) (pediatric) (principal); J44.89 Other specified chronic obstructive pulmonary disease | CPT/HCPCS: 99212 ==

== ENCOUNTER 2024-07-13 12:50 | Outpatient (AMB) | payer MEDICARE, SELFPAY ==
--- NOTE | 2024-07-13 13:12 | A.OFFVIS_ITS ---
Vital Signs 07/13/24 13:13 Height 5 ft 4 in Weight 199 lb 11.821 oz BMI 34.3 BP 100/32 L Blood Pressure Location Lt brachial Position Sitting Pulse 74 Pulse Source Pulse Oximeter Intake Visit Reasons: * 2 wk s/p cath NS Cardiac Exercise Physiologist Required: No Mosaic Technician: Mosaic Technician Present Allergies Latex, Natural Rubber Allergy (Severe, Verified 07/13/24 13:19) blisters Sulfa (Sulfonamide Antibiotics) [SULFA (SULFONAMIDE ANTIBIOTICS)] Allergy (Mild, Verified 07/13/24 13:19) ITCHING, rash nystatin Allergy (Unknown, Verified 07/13/24 13:19) rash isosorbide [From Imdur] Adverse Reaction (Unknown, Verified 07/13/24 13:19) HEADACHES, headache tizanidine Adverse Reaction (Unknown, Verified 07/13/24 13:19) weakness, Hellucination Medication List - Last Reconciled 07/13/24 by NITHIN YangC acetaminophen 650 mg (2 x 325 mg) PO Q6H PRN albuterol sulfate 90 mcg/actuation 2 puffs inhalation QID PRN apixaban (Eliquis) 5 mg PO BID atorvastatin 80 mg PO BEDTIME blood sugar diagnostic (NeuroNascentTouch Verio test strips) Test blood sugar 3 times per day blood-glucose meter (OneTouch Verio Flex Meter) As directed budesonide-formoterol 160-4.5 mcg/actuation (Symbicort) 2 puffs inhalation BID PRN buspirone 5 mg PO BID carvedilol 6.25 mg PO BID 90 days celecoxib (Celebrex) 200 mg PO BID 30 days cholecalciferol (vitamin D3) 25 mcg PO DAILY citalopram 20 mg PO DAILY clopidogrel 75 mg PO DAILY compr.stocking,thigh,reg,large Thigh High compression stockings 10-20mmHg diltiazem HCl ER 300 mg PO DAILY docusate sodium 100 mg PO BID PRN empagliflozin (Jardiance) 25 mg PO DAILY flash glucose sensor (FreeStyle Kelly 2 Sensor kit) As directed every 2 weeks furosemide 20 mg PO DAILY insulin glargine (Lantus Solostar U-100 Insulin) 25 units (0.25 mL) subcut BEDTIME insulin lispro (Humalog KwikPen (U-100) Insulin) 1 sliding scale dose subcut USEASDIRECTD ipratropium-albuterol 0.5 mg-3 mg(2.5 mg base)/3 mL 3 mL inhalation Q8H PRN lancets (OneTouch Delica Plus Lancet) Test blood sugar 3 times per day lisinopril 10 mg PO DAILY loratadine 10 mg PO DAILY PRN montelukast 10 mg PO BEDTIME pantoprazole 40 mg PO BID@0630,1630 semaglutide (Ozempic) 2 mg subcut MCWILLIAMS sennosides-docusate sodium 8.6-50 mg (Stimulant Laxative Plus) 2 tabs PO BID simethicone 80 mg PO QID PRN walker As directed HPI HPI * 2 wk s/p cath NS: Details: Saima is a 73-year-old female with past medical history of obesity, hypertension, hyperlipidemia, diabetes, prior smoking, obstructive sleep apnea not using CPAP, CAD with LCx stent placed, who recently reported chest discomfort and underwent cardiac catheterization and now presents for follow-up. Today she reports that since her catheterization procedure she has been noticing lower blood pressure readings. Her diastolic blood pressure has been as low as 30s. She reports some lightheadedness. She has not had any presyncope, syncope, falls. She has call this office and her isosorbide was stopped over a week ago. She continued to have low pressures and her lisinopril dose was reduced. She is not reporting chest discomfort at rest or with activity. She has been mostly sedentary. She has shortness of breath with exertion which is not new. No PND, orthopnea or edema. Taking meds as directed. Daughter is present. She does have visiting nurses at home. 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 Father No problems noted. Brother Substance use disorder Brother Substance use disorder Social History Household Members: Family Household Members Other:: 2 Housing: House Do you presently have visiting nurse or other home services: No Alcohol intake: former Patient Tobacco Use Status: Former Tobacco user Tobacco use type: Cigarette Cigarettes Per Day: 10 Years Smoked: 3 e-Cigarette/Vaping Use: Never Used Second Hand Smoke Exposure: No Advance Directives Date on File: 06/29/23 service: No Current occupational status: retired Cognitive needs: No Hearing needs: No Vision needs: No Review of Systems Const All systems reviewed & are unremarkable except as noted in HPI and below ENT Details: Lightheaded at times when sitting and with standing Reports dizziness Card Denies chest pain, Denies chest pain at rest, Denies chest pain with activity, Denies rapid heart rate, Denies pedal edema, Denies edema, Denies leg edema, Denies lightheadedness, Denies palpitations, Denies dyspnea, Reports dyspnea on exertion and Denies orthopnea Resp Denies cough, Denies dyspnea and Reports dyspnea on exertion GI Denies hematochezia and Denies change in stool character Musc Denies abnormal gait, Denies limited range of motion, Denies muscle cramps, Denies muscle weakness, Denies numbness, Denies radiating pain into limb, Denies stiffness and Denies tingling Neuro Denies abnormal gait, Reports dizziness, Denies numbness and Denies tingling Endo Denies palpitations Physical Exam Vital Signs: Last Vital Signs Pulse 74 07/13/24 13:13 BP 100/32 L 07/13/24 13:13 BMI result Body Mass Index 34.3 Const General: cooperative, healthy appearing, comfortable and no acute distress Orientation/consciousness: patient oriented x3 Neck Neck: Yes normal visual inspection and Yes no JVD Chest Chest palpation & inspection: normal inspection of the chest Resp Effort & Inspection: normal respiratory effort Auscultation: clear to auscultation bilaterally, no crackles, no rales, no rhonchi and no wheezes Cardio Jugular venous distension: no JVD Rate: regular rate Rhythm: regular rhythm Heart sounds: S1 normal heart sound present, S2 normal heart sound present, Murmur heart sound present (Faint systolic) and no rubs Neuro General: patient oriented x3 Extrem Other: Left femoral cath site, visibly well healed, nontender, weekly palpable pulse. No reports of leg claudication bilaterally. General: Yes normal to inspection Psych Appearance: grossly normal Mental Status: mental status grossly normal Speech and movement: Normal speech and movement present Assessment & Plan Assessment & Plan (1) CAD (coronary artery disease): Comment: s/p ARMANI to LCX 06/28 Code(s): I25.10 - Atherosclerotic heart disease of [place] coronary artery without angina pectoris Category: Medical Qualifiers: Associated angina: with unspecified form of angina Coronary Disease- Associated Artery/Lesion type: [place] artery [place] vs. transplanted heart: [place] heart Qualified Code(s): I25.119 - Atherosclerotic heart disease of [place] coronary artery with unspecified angina pectoris Plan: History of CAD. Prior cardiac catheterization 2006 showing 60% RCA stenosis. She did have NSTEMI admission 06/2023 with cardiac catheterization showing significant mid left circumflex stenosis, ARMANI was placed. On recent visit she did report recurrent chest discomfort. Isosorbide was added. She went for cardiac catheterization again on 06/27/2024 showing patent left circumflex stent and ostial diagonal 60-70% stenosis. She reports that since that time she has been noticing lower blood pressure readings. Her isosorbide was stopped and lisinopril dose reduced. Blood pressure in the office today initially 100/32, r echeck done by me 108/38. She reports some lightheadedness with sitting and with standing. No presyncope, syncope, falls. She reports good hydration and has been mostly sedentary. Unclear reason for her lower blood pressure readings. Reviewed with Dr. Hughes. Will have her stop lisinopril. Continue blood pressure monitoring at home. Call this office in 1 week with update on blood pressure readings. Maintain good hydration. If blood pressure continues to run low will likely cut back her diuretic. She does not appear fluid overloaded on exam. At this time she will continue on med management for stable CAD. She has not on aspirin as she is on Eliquis. She has been on Plavix uninterrupted for at least 1 year post stent, which was 06/29/2024.- Per recent Cath report, will have her continue Plavix at this time. She is on high-dose atorvastatin with ideal LDL goal less than 70. She is on diltiazem and metoprolol. Signs and symptoms of angina reviewed with her. Cardiology follow- up 6 months, sooner if needed. Emergency care if ever needed for symptoms. (2) S/P cardiac catheterization: Comment: 06/27/2024, left main normal, lad ostial diagonal 60-70% stenosis, left circumflex OM1 stent mild in stent stenosis, RCA minimal luminal irregularities Code(s): Z98.890 - Other specified postprocedural states Category: Medical Plan: Left femoral access site well healed (3) Heart failure with preserved ejection fraction: Comment: Echo 11/2023 EF>70 %, NO REGIONAL WALL MOTION ABNORMALITIES, NORMAL RIGHT VE NTRICULAR SYSTOLIC FUNCTION, MILD Code(s): I50.30 - Unspecified diastolic (congestive) heart failure Category: Medical Plan: Stable at this time, no clinical signs of fluid overload. Echocardiogram done 07/05/2024 showing EF greater than 70%, grade 2 diastolic dysfunction, severe LVH, mild aortic stenosis. (4) Hypertension: Code(s): I10 - Essential (primary) hypertension Category: Medical Qualifiers: Hypertension type: primary hypertension Qualified Code(s): I10 - Essential (primary) hypertension Plan: As above. Blood pressure running on the low side. (5) Low blood pressure reading: Code(s): R03.1 - Nonspecific low blood-pressure reading Category: Medical Plan: As above (6) Paroxysmal atrial fibrillation: Code(s): I48.0 - Paroxysmal atrial fibrillation Category: Medical Plan: History of paroxysmal atrial fibrillation. Currently suppressed with carvedilol and diltiazem. She is on Eliquis for anticoagulation. No bleeding issues reported. No reports of heart palpitations. Pulse is regular on examination, clinically in sinus rhythm. (7) Aortic stenosis: Code(s): I35.0 - Nonrheumatic aortic (valve) stenosis Category: Medical Plan: Mild aortic stenosis noted on echocardiogram. Will continue to follow with periodic echoes. Coding Level of Care Code Est Pt Level 4 (94706) Complex EM visit Add On G2211 Diagnoses Coronary artery disease involving [place] coronary artery of [place] heart with angina pectoris I25.119 Associated angina: with unspecified form of angina Coronary Disease-Associated Artery/Lesion type: [place] artery [place] vs. transplanted heart: [place] heart S/P cardiac catheterization Z98.890 Heart failure with preserved ejection fraction I50.30 Primary hypertension I10 Hypertension type: primary hypertension Low blood pressure reading R03.1 Paroxysmal atrial fibrillation I48.0 Aortic stenosis I35.0 Time Spent (min) 36
[2024-07-13 13:13] VITALS: BP 100/32; PULSE 74; BMI 34.3
== END 2024-07-13 14:00 | disposition home or self-care (01) ==
LOC: HO.HCS 12:51
PROVIDERS: PCP Internal Medicine; Visit Provider Nurse Practitioner Family
DX: I25.119 Atherosclerotic heart disease of native coronary artery with unspecified angina pectoris (principal); Z98.890 Other specified postprocedural states; I50.30 Unspecified diastolic (congestive) heart failure; I10 Essential (primary) hypertension; R03.1 Nonspecific low blood-pressure reading; I48.0 Paroxysmal atrial fibrillation; I35.0 Nonrheumatic aortic (valve) stenosis
CPT/HCPCS: 99214; G2211

== ENCOUNTER → 2024-07-13 12:50 | Outpatient (BNVA) | payer MEDICARE, SELFPAY | PROVIDERS: PCP Internal Medicine; Visit Provider Nurse Practitioner Family | DX: I25.119 Atherosclerotic heart disease of native coronary artery with unspecified angina pectoris (principal); R03.0 Elevated blood-pressure reading, without diagnosis of hypertension; I11.0 Hypertensive heart disease with heart failure; I50.30 Unspecified diastolic (congestive) heart failure; I48.0 Paroxysmal atrial fibrillation; I35.0 Nonrheumatic aortic (valve) stenosis; Z98.890 Other specified postprocedural states | CPT/HCPCS: 99212 ==

== ENCOUNTER 2024-10-16 13:16 | Outpatient (AMB) | payer MEDICARE, SELFPAY ==
--- NOTE | 2024-10-16 13:43 | MHC.OFFVIS ---
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 Allergies Latex, Natural Rubber Allergy (Severe, Verified 07/13/24 13:19) blisters Sulfa (Sulfonamide Antibiotics) [SULFA (SULFONAMIDE ANTIBIOTICS)] Allergy (Mild, Verified 07/13/24 13:19) ITCHING, rash nystatin Allergy (Unknown, Verified 07/13/24 13:19) rash isosorbide [From Imdur] Adverse Reaction (Unknown, Verified 07/13/24 13:19) HEADACHES, headache tizanidine Adverse Reaction (Unknown, Verified 07/13/24 13:19) weakness, Hellucination Medication List - Last Reconciled 10/16/24 by Brian Hughes MD acetaminophen 650 mg (2 x 325 mg) PO Q6H PRN albuterol sulfate 90 mcg/actuation 2 puffs inhalation QID PRN apixaban (Eliquis) 5 mg PO BID atorvastatin 80 mg PO BEDTIME blood sugar diagnostic (AbrilTouch Verio test strips) Test blood sugar 3 times per day blood-glucose meter (OneTouch Verio Flex Meter) As directed budesonide-formoterol 160-4.5 mcg/actuation (Symbicort) 2 puffs inhalation BID PRN buspirone 5 mg PO BID carvedilol 6.25 mg PO BID 90 days celecoxib (Celebrex) 200 mg PO BID 30 days cholecalciferol (vitamin D3) 25 mcg PO DAILY citalopram 20 mg PO DAILY clopidogrel 75 mg PO DAILY compr.stocking,thigh,reg,large Thigh High compression stockings 10-20mmHg diltiazem HCl ER 300 mg PO DAILY docusate sodium 100 mg PO BID PRN empagliflozin (Jardiance) 25 mg PO DAILY flash glucose sensor (FreeStyle Kelly 2 Sensor kit) As directed every 2 weeks furosemide 20 mg PO DAILY insulin glargine (Lantus Solostar U-100 Insulin) 25 units (0.25 mL) subcut BEDTIME insulin lispro (Humalog KwikPen (U-100) Insulin) 1 sliding scale dose subcut USEASDIRECTD ipratropium-albuterol 0.5 mg-3 mg(2.5 mg base)/3 mL 3 mL inhalation Q8H PRN isosorbide mononitrate ER 90 mg PO DAILY lancets (OneTouch Delica Plus Lancet) Test blood sugar 3 times per day loratadine 10 mg PO DAILY PRN montelukast 10 mg PO BEDTIME 30 days pantoprazole 40 mg PO BID@0630,1630 semaglutide (Ozempic) 2 mg subcut MCWILLIAMS sennosides-docusate sodium 8.6-50 mg (Stimulant Laxative Plus) 2 tabs PO BID simethicone 80 mg PO QID PRN walker As directed HPI Comments Details: Saima comes for follow-up. She continues to have intermittent episodes of chest discomfort feels like indigestion which last sometimes the whole night. She does not do anything to relieved with. She was started back on isosorbide at [facility] although at that time she did not have any recurrent acute coronary syndrome. She was not sure as to why she is taking isosorbide. She was not taken sublingual nitroglycerin. She continues to be exertional shortness of breath. She does not have any significant at rest shortness of breath. Denies any prolonged palpitation irregular heartbeat. No bleeding issues or neurologic events. No clear orthopnea, PND. 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 Father No problems noted. Brother Substance use disorder Brother Substance use disorder Social History Household Members: Family Household Members Other:: 2 Housing: House Do you presently have visiting nurse or other home services: No Alcohol intake: former Patient Tobacco Use Status: Former Tobacco user Tobacco use type: Cigarette Cigarettes Per Day: 10 Years Smoked: 3 e-Cigarette/Vaping Use: Never Used Second Hand Smoke Exposure: No Advance Directives Date on File: 06/29/23 service: No Current occupational status: retired Cognitive needs: No Hearing needs: No Vision needs: No Review of Systems Const Denies chills, Denies fatigue, Denies fever(s), Denies frequent falls, Denies weakness, Denies weight gain and Denies weight loss ENT Denies dizziness Card Denies chest pain, Denies leg edema, Denies lightheadedness, Denies palpitations, Denies dyspnea, Denies dyspnea on exertion, Denies orthopnea and Denies other (loss of consciousness) Resp Denies cough, Denies dyspnea and Denies dyspnea on exertion GI Denies hematochezia and Denies change in stool character Musc Denies abnormal gait, Denies muscle weakness, Denies numbness, Denies radiating pain into limb and Denies tingling Neuro Denies abnormal gait, Denies dizziness, Denies frequent falls, Denies numbness, Denies tingling and Denies weakness Endo Denies fatigue and Denies palpitations Physical Exam Vital Signs: Last Vital Signs Pulse 71 10/16/24 13:44 BP 110/68 10/16/24 13:44 BMI result Body Mass Index 32.9 Const General: cooperative, healthy appearing, comfortable and no acute distress Orientation/consciousness: patient oriented x3 Neck Neck: Yes normal visual inspection and Yes no JVD Chest Chest palpation & inspection: normal inspection of the chest Resp Effort & Inspection: normal respiratory effort Auscultation: clear to auscultation bilaterally, no crackles, no rales, no rhonchi and no wheezes Cardio Jugular venous distension: no JVD Rate: regular rate Rhythm: regular rhythm Heart sounds: S1 normal heart sound present, S2 normal heart sound present, Murmur heart sound present (Faint systolic) and no rubs Neuro General: patient oriented x3 Extrem Other: Left femoral cath site, visibly well healed, nontender, weekly palpable pulse. No reports of leg claudication bilaterally. General: Yes normal to inspection Psych Appearance: grossly normal Mental Status: mental status grossly normal Speech and movement: Normal speech and movement present Assessment & Plan Assessment & Plan (1) CAD (coronary artery disease): Comment: s/p ARMANI to LCX 06/28 Code(s): I25.10 - Atherosclerotic heart disease of [place] coronary artery without angina pectoris Category: Medical Qualifiers: Coronary Disease-Associated Artery/Lesion type: [place] artery [place] vs. transplanted heart: [place] heart Associated angina: with unspecified form of angina Qualified Code(s): I25.119 - Atherosclerotic heart disease of [place] coronary artery with unspecified angina pectoris Plan: CAD status post drug-eluting stent to the circumflex territory for acute coronary syndrome. Cardiac catheterization in June 2024 showed patent stent with mild InStent restenosis with 60-70% diagonal lesion which was nonobstructive. Patient status post more than 1 year since his stenting. Plavix can be stopped. Continue full oral anticoagulation with Eliquis as prescribed. Continue high-intensity statin therapy with target goal LDL closer to 55 mg/dL. Continue aggressive blood pressure control which is currently well optimized. Her recurrent chest pain syndrome appears to be noncardiac in nature given long-lasting chest pain without any exertional. I would therefore advised her to taper and discontinue isosorbide therapy. (2) Heart failure with preserved ejection fraction: Comment: Echo 11/2023 EF>70 %, NO REGIONAL WALL MOTION ABNORMALITIES, NORMAL RIGHT VENTRICULAR SYSTOLIC FUNCTION, MILD Code(s): I50.30 - Unspecified diastolic (congestive) heart failure Category: Medical Plan: Heart failure preserved ejection fraction, clinically euvolemic and well compensated. Continue current medication including currently on Jardiance as well as furosemide therapy. Clinically appears to be euvolemic and well compensated. Continue aggressive blood pressure control which is currently well optimized. Continue manage COPD aggressively. Part of her shortness of breath is most likely related to her COPD. Encouraged to maintain activity level as tolerated. (3) Paroxysmal atrial fibrillation: Code(s): I48.0 - Paroxysmal atrial fibrillation Category: Medical Plan: Paroxysmal atrial fibrillation without any obvious recurrence at this point time. Continue oral anticoagulation Eliquis 5 mg b.i.d.. CHADSVASc score of 7. High risk for thromboembolic event. Quarterly renal function test should be pursued. Avoidance of stimulants was discussed. Continue carvedilol therapy. Would avoid any antiarrhythmic drug therapy as it is not needed. Will follow up in the clinic in 6 months time, sooner p.r.n.. Thank you for allowing me to partake in his care Medications: Discontinued clopidogrel Discontinued Reason: Doctor's Order 75 mg PO DAILY 90 tabs 1RF Coding Level of Care Code Est Pt Level 4 (82059) Complex EM visit Add On G2211 Diagnoses Coronary artery disease involving [place] coronary artery of [place] heart with angina pectoris I25.119 Coronary Disease-Associated Artery/Lesion type: [place] artery [place] vs. transplanted heart: [place] heart Associated angina: with unspecified form of angina Heart failure with preserved ejection fraction I50.30 Paroxysmal atrial fibrillation I48.0
[2024-10-16 13:44] VITALS: BP 110/68; PULSE 71; BMI 32.9
== END 2024-10-16 14:12 | disposition home or self-care (01) ==
PROVIDERS: PCP Internal Medicine; Visit Provider Internal Medicine Cardiovascular Disease
DX: I25.119 Atherosclerotic heart disease of native coronary artery with unspecified angina pectoris (principal); I50.30 Unspecified diastolic (congestive) heart failure; I48.0 Paroxysmal atrial fibrillation
CPT/HCPCS: 99214; G2211

== ENCOUNTER → 2024-10-16 13:16 | Outpatient (BNVA) | payer MEDICARE, SELFPAY | PROVIDERS: PCP Internal Medicine; Visit Provider Internal Medicine Cardiovascular Disease | DX: I25.119 Atherosclerotic heart disease of native coronary artery with unspecified angina pectoris (principal); I50.30 Unspecified diastolic (congestive) heart failure; I48.0 Paroxysmal atrial fibrillation | CPT/HCPCS: 99212 ==

== ENCOUNTER 2024-11-08 13:40 | Outpatient (AMB) | payer MEDICARE, SELFPAY ==
[2024-11-08 13:49] VITALS: BP 124/60; PULSE 97; O2SAT 95; BMI 33.7
--- NOTE | 2024-11-08 13:49 | A.OFFVIS_ITS ---
Vital Signs 11/08/24 13:49 Height 5 ft 4 in Weight 196 lb 3.382 oz BMI 33.7 BP 124/60 Blood Pressure Location Lt brachial Position Sitting Pulse 97 Pulse Source Pulse Oximeter Pulse Oximetry (%) 95 Oxygen Delivery Method Room Air Intake Visit Reasons: COPD Intake Note: pt is here for follow up and states she has been short of breath with exertion (more recently) and cough with some phlegm, she also has a growth on the right hand side of the neck, ? could this be causing any issues? Allergies Latex, Natural Rubber Allergy (Severe, Verified 11/08/24 14:30) blisters Sulfa (Sulfonamide Antibiotics) [SULFA (SULFONAMIDE ANTIBIOTICS)] Allergy (Mild, Verified 11/08/24 14:30) ITCHING, rash nystatin Allergy (Unknown, Verified 11/08/24 14:30) rash isosorbide [From Imdur] Adverse Reaction (Unknown, Verified 11/08/24 14:30) HEADACHES, headache tizanidine Adverse Reaction (Unknown, Verified 11/08/24 14:30) weakness, Hellucination Medication List - Last Reconciled 11/08/24 by Bart Bernard MD acetaminophen 650 mg (2 x 325 mg) PO Q6H PRN albuterol sulfate 90 mcg/actuation 2 puffs inhalation QID PRN apixaban (Eliquis) 5 mg PO BID atorvastatin 80 mg PO BEDTIME blood sugar diagnostic ([place] Verio test strips) Test blood sugar 3 times per day blood-glucose meter (OrganizerTouch Verio Flex Meter) As directed budesonide-formoterol 160-4.5 mcg/actuation (Symbicort) 2 puffs inhalation BID PRN buspirone 5 mg PO BID carvedilol 6.25 mg PO BID 90 days celecoxib (Celebrex) 200 mg PO BID 30 days cholecalciferol (vitamin D3) 25 mcg PO DAILY citalopram 20 mg PO DAILY compr.stocking,thigh,reg,large Thigh High compression stockings 10-20mmHg diltiazem HCl ER 300 mg PO DAILY docusate sodium 100 mg PO BID PRN empagliflozin (Jardiance) 25 mg PO DAILY flash glucose sensor (FreeStyle Kelly 2 Sensor kit) As directed every 2 weeks furosemide 20 mg PO DAILY insulin glargine (Lantus Solostar U-100 Insulin) 25 units (0.25 mL) subcut BEDTIME insulin lispro (Humalog KwikPen (U-100) Insulin) 1 sliding scale dose subcut USEASDIRECTD ipratropium-albuterol 0.5 mg-3 mg(2.5 mg base)/3 mL 3 mL inhalation Q8H PRN isosorbide mononitrate ER 30 mg PO DAILY lancets (OneTouch Delica Plus Lancet) Test blood sugar 3 times per day loratadine 10 mg PO DAILY PRN montelukast 10 mg PO BEDTIME 30 days pantoprazole 40 mg PO BID@0630,1630 semaglutide (Ozempic) 2 mg subcut MCWILLIAMS sennosides-docusate sodium 8.6-50 mg (Stimulant Laxative Plus) 2 tabs PO BID PRN simethicone 80 mg PO QID PRN walker As directed Do you need a note to return to daycare/school/sports/work: No HPI HPI COPD: Details: Saima is 74 years old female, coming after 4 months for her routine follow-up. Her daughter is telling me that she has increased shortness of breath lately, as she is not using Symbicort on a regular basis. There is no recent respiratory infection. Patient does not use the CPAP even though she does have obstructive sleep apnea. Her asthma/COPD has been relatively controlled.. She has mild intermittent cough but no wheezing. Her weight is remaining stable. 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 Father No problems noted. Brother Substance use disorder Brother Substance use disorder Social History Household Members: Family Household Members Other:: 2 Housing: House Do you presently have visiting nurse or other home services: No Alcohol intake: former Patient Tobacco Use Status: Former Tobacco user Tobacco use type: Cigarette Cigarettes Per Day: 10 Years Smoked: 3 e-Cigarette/Vaping Use: Never Used Second Hand Smoke Exposure: No Advance Directives Date on File: 06/29/23 service: No Current occupational status: retired Cognitive needs: No Hearing needs: No Vision needs: No Review of Systems Const All systems reviewed & are unremarkable except as noted in HPI and below ENT Reports nasal congestion (off and on . ) Card Denies chest pain, Denies irregular heart rhythm, Denies leg edema and Reports dyspnea on exertion Resp Reports cough (mild off and on ), Reports dyspnea on exertion and Denies whee zing GI Denies no additional complaints Musc Reports no additional complaints Neuro Reports no additional complaints Psych Reports no additional complaints Aller/Immun Denies wheezing Physical Exam Vital Signs: Last Vital Signs Pulse 97 11/08/24 13:49 BP 124/60 11/08/24 13:49 Pulse Ox 95 11/08/24 13:49 Oxygen Delivery Method Room Air 11/08/24 13:49 BMI result Body Mass Index 33.7 Const General: healthy appearing, comfortable, no acute distress, alert and awake Orientation/consciousness: patient oriented x3 HEENT Head: Yes normal to inspection General nose exam: No nasal polyps present and No nasal discharge present Face and sinus: Yes sinuses nontender Mouth: oropharynx normal Throat: Yes posterior oropharynx normal Eyes General: appearance normal, both eyes and all related structures Neck Neck: Yes normal visual inspection, Yes no lymphadenopathy, Yes trachea midline, Yes no JVD and Yes other (The medial end of the right clavicle is slightly tender.) Thyroid: Thyroid normal Chest Chest palpation & inspection: normal inspection of the chest, normal palpation of entire chest wall and no tenderness Breast/axilla inspection: Other (Scar over the right upper chest from previous thoracic surgery) Resp Other: Percussion note is resonant, breath sounds are distant but equal on both sides. No audible wheezes or crepitations. Cardio Palpation: normal PMI Rate: regular rate Rhythm: regular rhythm Heart sounds: no gallops and no murmurs GI Inspection: Yes other (There is ventral herniation in the upper part of the abdomen) Palpation (GI): Soft to palpation, nontender, No hepatosplenomegaly present and no masses Auscultation: normal bowel sounds Back/Spine/Pelvis Thoracic/Lumbar Spine: thoracic and lumbar spine normal to inspection Skin General skin exam: no rashes or lesions noted Neuro General: patient oriented x3 and no focal motor deficits Cranial nerves: Yes CN's II-XII intact bilaterally Extrem General: Yes normal to inspection, Yes no clubbing, cyanosis or edema and Yes no calf tenderness Psych Appearance: grossly normal and well kempt Speech and movement: Normal speech and movement present Assessment & Plan Assessment & Plan (1) Asthma with COPD: Comment: PATIENT HAS LONGSTANDING HISTORY OF BRONCHIAL ASTHMA/COPD. AFTER PROLONGED INTUBATION SHE HAD DEVELOPED TRACHEOMALACIA IN 2009 . SHE UNDERWENT TRACHEO PLASTY AT [facility] , LOST FOLLOW-UP OVER THERE WAS IN 2021 INCLUDING A BRONCHOSCOPY AND THERE WAS NO EVIDENCE OF TRACHEOMALACIA. HER MAINTENANCE MEDICAL REGIMEN INCLUDES SYMBICORT 160-4.5 2 PUFFS B.I.D., Since her last visit she is using Symbicort regularly 2 puffs b.i.d.. SHE ALSO HAS NEBULIZER WITH DUONEB SOLUTION, TO BE USED P.R.N.. Code(s): J44.89 - Other specified chronic obstructive pulmonary disease Category: Medical Plan: She is advised to continue using Symbicort 160-4.52 puffs b.i.d. regularly. Use ipratropium-albuterol solution in the nebulizer Q 4-6 hours p.r.n. for any acute cough or wheezing. Also continue to use montelukast 10 mg daily (2) Obstructive sleep apnea: Comment: SHE HAS CHRONIC OBSTRUCTIVE SLEEP APNEA/HYPOVENTILATION SYNDROME. She used to be on CPAP therapy. But has not used the CPAP since 2020. Recently admitted to [facility] with an acute exacerbation of COPD. She was treated with the CPAP and she tolerated it well She had a sleep study at [facility], and she did respond to CPAP of 10 cm. A new CPAP device was ordered which she does have at home , and it is functional. However she has not used the CPAP. Claiming that she does not like to have the moisture on her face. On her last visit her machine was checked and we had explained to her how to use the humidification chamber. Still she has not been using regularly. Claims that she does wake up a few times with choking like feeling. Code(s): G47.33 - Obstructive sleep apnea (adult) (pediatric) Category: Medical Plan: As she has been non compliant to the use of CPAP at this point she will leave it alone Advise that she should should have adequate humidity in the house during winter months Coding Level of Care Code Est Pt Level 3 (80820) Diagnoses Asthma with COPD J44.89 Obstructive sleep apnea G47.33
--- OUTSIDE RECORDS SUMMARY | 2024-11-08 16:17 | XMS_ITS ---
Author Organization [facility] Address [address] [place] [address] Care Team Providers Care Wire Spooler Name Role Phone Cali GUZMAN, Amanda Primary Care Provider Marcel Bentley Jr REASON FOR VISIT fe def anemia Encounters Encounter Location Date Provider Diagnosis [facility] Outpatient [address] [place] [phone] 03/17/2024 Marcel Sorenson Jr Plan Of Treatment No Information Progress Notes * POLOLEO KNAPP ADOB:1950 (74 yo F)Acc No.[id number]:03/17/2024 EGD&COL/MAC Patient:?LEO CUELLAR Provider:?Marcel Sorenson MD :1950???Age:73 Y???Sex:Female D ate:03/17/2024 Address:[address] [place], [place] [id number] Pcp:Amanda Leiva MD Subjective: * Chief Complaints: * ???1. Fe def anemia. * Medical History:? Objective: * Vitals:? Assessment: Plan: * Treatment: * * The named appointment provid er may or may not be the originator of this progress note, and it is not deemed complete until electronically signed by the appointment provider. Sign off status: Pending * Provider:?Marcel Sorenson MD Date:?0 03/17/2024 Generated for Enzo zuniga/[place]/eTransmitting on:?11/08/2024 04:17 PM EST
--- OUTSIDE RECORDS SUMMARY | 2024-11-08 16:17 | XMS_ITS | Patient Health Record ---
Author Organization [facility] Address [address] [place] [address] Care Team Providers Care Flute Teacher Name Role Phone Amanda Leiva MD Primary Care Provider Marcel Bentley Jr Unavailable Jeronimo Smith Unavailable [phone] Allergies Allergen (clinical drug ingredient) Drug/Non Drug Allergy documented on EMR Reaction Allergy Type Onset Date Status Substance with sulfonamide structure and antibacterial mechanism of action (substance) Sulfa Antibiotics Unknown Drug Allergy Active niacin Niacin Unknown Drug Allergy Active contrast (uncoded) kidneys stop working Allergy Active Results Component Value Reference Range Notes Pathology Reviewed date:12/07/2023 04:25:17 PM Interpretation: Performing Lab:[facility], [address] [place] [phone] Notes/Report: - -------- Name: Gela Cuellar Age/Sex: 73/F : 1950 Unit#: [id number] Attend Dr: Segun Wild MD Re11/28/23 Status : ADM IN Location: [place] [address]-1 Disch: - -------- SPEC : [id number] RECD : 11/30/23 STATUS: JONATHON WONG NUM: [id number] ABDIEL: 11/30/[address] [facility] [address]: Marcel Sorenson MD ENTERED: 11/30/23 SP TYPE: Surgical OTHR DR: Amanda Leiva MD [facility],Segun GUZMAN ORDERED: HE Stain/3, Gross Micro L4/2, IHC, Special st. 2/, H. pylori, AB/PAS/2 Diagnosis A. Gastric antrum, biopsy: Mild reactive gastropathy with focal minimal chronic inactive inflammation; negative for H pylori, intestinal metaplasia and dysplasia. B. Esophagus, distal , biopsy: Squamous mucosa with congestion and no specific change; no columnar mucosa present. Clinical History Pre-Op Dx: Epigastri c pain, anemia Post-Op Dx: Esophagitis Microscopic Description Microscopic sections reviewed. Immunostain for H. pylori on A is negative. AB/PAS on A is negative for intestinal metaplasia. Controls stain appropriately. Material Received A. Bx antrum B. Bx distal esophagus Gross Description Received in 2 parts. Part A: Received in formalin labeled ?bx antrum? are 2 stewart-pink irregular and rectangular tissue fragments measuring 0.2 and 0.35 cm, submitted in toto in a cassette labeled A. Part B: Received in formalin labeled ?bx distal esophagus? are 3 pale, stewart-white irregular and rectangular tissue fragments ranging from less than 0.1 to 0.35 cm, submitted in toto in a cassette labeled B. CEDS Special studies ordered and performed: Immunostain for H. pylori on A1; AB/PAS stains on A1. CONTINUED ON NEXT PAGE - -------- Name: Gela Cuellar Age/Sex: 73/F : 1950 Unit#: [id number] Attend Dr: Segun Wild MD Re11/28/23 Status : ADM IN Location: [facility] 453-1 Disch: - -------- SPEC : [id number] RECD : 11/30/23-1124 STATUS: JONATHON MARVIN NUM: [id number] ABDIEL: 11/30/23-[address] [facility] [address]: Marcel Sorenson MD ENTERED: 11/30/23-1137 SP TYPE: Surgical OTHR DR: Amanda Leiva MD, Theodore MD ORDERED: HE Stain/3, Gross Micro L4/2, IHC, Special st. 2/2, H. pylori, AB/PAS/2 Copies To: Amanda Leiva MD [address] [place] [address] [address], [place] [id number] Marcel Sorenson MD [address] [place] [address] [address] [place] [address] Segun Wild MD [address] [place] [address], [place] [address] - -------- Signed (signature on file) Kathryn Albina 12/01/23 1726 - -------- END OF REPORT Complete Blood Count Auto Di ff Reviewed date:02/10/2024 10:32:35 AM Interpretation: Performing Lab:[facility], [address] [place] [phone] Notes/Report: White Blood Count 9.3 4.8-10.8 X10*3/uL Red Blood Count 4.18 4.20-5.50 X10*6/uL Hemoglobin 9.0 12.0-16.0 g/dl Hematocrit 30.9 37.0-47.0 % Mean Corpuscular Volume 73.9 80.0-98.0 fL Mean Corpuscular Hemoglobin 21.5 27.0-33.0 pg Mean Corpuscular HGB Conc 29.1 31.0-35.0 g/dl Red Cell Distribution Width 19.7 11.0-16.0 % Platelet Count 411 160-400 X10*3/uL Mean Platelet Volume 9.9 9.4-12.3 fL Neutrophils Percent Auto 66.8 45-73 % Imm Gran Pct Auto 0.4 0.0-0.4 % Lymphocytes Percent Auto 18.1 20-40 % Monocytes Percent Auto 8.0 2-11 % Eosinophils Percent Auto 5.8 0-4 % Basophils Percent Auto 0.9 0-2 % NRBC Pct Auto 0.0 0.0-0.2 /100WBC Neutrophils Absolute Auto 6.2 2.0-8.3 x10*3/u L Imm Gran Abs Auto 0.04 0.00-0.03 X10*3/uL Lymphocytes Absolute Auto 1.7 1.2-4.9 X10*3/u L Monocytes Absolute Auto 0.7 0.1-1.2 X10*3/uL Eosinophils Absolute Auto 0.5 0.0-0.4 X10*3/u L Basophils Absolute Auto 0.1 0.0-0.2 X10*3/uL NRBC Abs Auto 0.000 0.0-0.012 X10*3/uL Liver Panel Reviewed date:02/10/2024 10:32:50 AM Interpretation: Performing Lab:[facility], [address] [place] [phone] Notes/Report: Bilirubin Total 0.3 0.0-1.0 mg/dL Bilirubin Direct 0.1 0.0-0.5 mg/dL Aspartate Amino Transferase 12 5-31 U/L Alanine Aminotransferase 11 0-31 U/L Total Protein 7.2 6.5-8.0 g/dL Albumin Level 3.9 3.5-5.0 g/dL Alkaline Phosphatase 118 39-117 U/L IRON PROFILE Reviewed date:02/10/2024 10:32:57 AM Interpretation: Performing Lab:[facility], [address] [place] [phone] Notes/Report: Iron 18 30-160 mcg/dL Total Iron Binding Capacity 316 228-428 mcg/dL Percent Iron Saturation 6 15-50 % Unsaturated Iron Binding 298 Gamma Glutamyl Transpeptidas e Reviewed date:02/10/2024 10:32:41 AM Interpretation: Performing Lab:[facility], [address] [place] [phone] Notes/Report: Gamma Glutamyl Transpeptidase 26 7-33 U/L Alkaline Phosphatase Isoenzy me Reviewed date:02/16/2024 07:46:18 AM Interpretation: Performing Lab:[facility], [address] [place] [phone] Notes/Report: Alk.Phos Isoenzymes Total 112 37-153 U/L Alk.Phos Isoenzymes Intest 7 1-24 % Alk.Phos Isoenzymes Bone 28 28-66 % Alk.Phos Isoenzymes Liver 65 25-69 % Alk.Phos Isoenzymes Placental 0 <=0 % Alk.Phos Iso. Macrohepatic 0 <=0 % THIS TEST WAS PERFORMED AT: [facility]/[address] [address] CHRISTOPHER FERRER MD,PHD Alk.Phos Isoenzymes Interp TNP Reason For Referral No Information Medications Medication SIG (Take, Route, Fr equency, Duration) Notes Start Date End Date Status Metoprolol Succinate Active Jardiance Active Albuterol Active Symbicort Active Atorvastatin Calcium Active Pantoprazole Sodium Active busPIRone HCl Active Montelukast Sodium A ctive Citalopram Hydrobromide Active Lisinopril Active dilTIAZem HCl Active Famotidine Active Eliquis Active Lantus Active Vitamin D Active Furosemide Active HumaLOG Active Social History Tobacco Use: Social History Observation Description Date Details (start date - stop date) Never Smoker NA - NA Tobacco Use/Smoking Question Answer Notes Patient is a nonsmoker Alcohol Screen Question Answer Notes Did you have a drink containing alcohol in the p ast year? No Points 0 Interpretation Negative Problems Problem Type SNOMED Code ICD Code Onset Dates Problem Status W/U Status Risk Notes Problem 53039213 Epigastric pain (R10.13) Active confirmed Problem 171247114 Personal history of colonic polyps (Z86.010) Active confirmed Problem 961045694 Elevated LFTs (R79.89) Active confirmed Problem 88135320 Iron deficiency anemia, unspecified iron deficiency anemia type (D50.9) Active confirmed Problem 989522363 Black stools (K92.1) Active confirmed Vital Signs Blood pressure diastolic 00 mm Hg 12/30/2023 Height 5 ft 4 in in 12/30/2023 Blood pressure systolic 00 mm Hg 12/30/2023 Weight 198 lbs 12/30/2023 BMI 33.98 kg/m2 12/30/2023 Encounters Encounter Location Date Provider Diagnosis [facility] [address] [place] [phone] 12/30/2023 Marcel Sorenson Jr Elevated LFTs R79.89 ; Black stools K92.1 ; Epigastric pain R10.13 and Personal history of colonic polyps Z86.010 [facility] [address] [place] [address] 12/01/2023 Jeronimo Smith [facility] [address] [place] [phone] 12/03/2023 Jeronimo Smith [facility] [address] [place] [phone] 12/28/2023 Jeronimo Smith [facility] [address] [place] [address] 02/10/2024 Jeronimo Smith Iron deficiency anemia, unspecified iron deficiency anemia type D50.9 [facility] [address] [place] [address] 03/14/2024 Marcel Sorenson Jr [facility] [address] [place] [address] 03/15/2024 Marcel Sorenson Jr Assessments Encounter Date Diagnosis (ICD Code) Assessment Notes Treatment Notes Treatment Clinical Notes Section Notes 12/30/2023 Elevated LFTs (ICD-10 - R79.89) labs in one month,Liver disease - resources material was printed At this time, she appears to be doing well. Some of her epigastric symptoms could be related to the irritable bowel syndrome, but she did not tolerate dicyclomine and does not wish to be on antispasmodics at this time. Black stools have resolved. She will have followup laboratory studies in the month and assuming her liver tests improve and hematocrit remain stable we will schedule followup colonoscopy. We discussed her symptoms as of the procedure today. She understands these and agrees to proceed. 12/30/2023 Black stools (ICD-10 - K92.1) At this time, she appears to be doing well. Some of her epigastric symptoms could be related to the irritable bowel syndrome, but she did not tolerate dicyclomine and does not wish to be on antispasmodics at this time. Black stools have resolved. She will have followup laboratory studies in the month and assuming her liver tests improve and hematocrit remain stable we will schedule followup colonoscopy. We discussed her symptoms as of the procedure today. She understands these and agrees to proceed. 02/10/2024 Iron deficiency anemia, unspecified iron deficiency anemia type (ICD-10 - D50.9) 12/30/2023 Epigastric pain (ICD-10 - R10.13) At this time, she appears to be doing well. Some of her epigastric symptoms could be related to the irritable bowel syndrome, but she did not tolerate dicyclomine and does not wish to be on antispasmodics at this time. Black stools have resolved. She will have followup laboratory studies in the month and assuming her liver tests improve and hematocrit remain stable we will schedule followup colonoscopy. We discussed her symptoms as of the procedure today. She understands these and agrees to proceed. 12/30/2023 Personal history of colonic polyps (ICD-10 - Z86.010) At this time, she appears to be doing well. Some of her epigastric symptoms could be related to the irritable bowel syndrome, but she did not tolerate dicyclomine and does not wish to be on antispasmodics at this time. Black stools have resolved. She will have followup laboratory studies in the month and assuming her liver tests improve and hematocrit remain stable we will schedule followup colonoscopy. We discussed her symptoms as of the procedure today. She understands these and agrees to proceed. Plan Of Treatment Pending Test Test Name Order Date GI BIOPSY 06/18/2015 LIVER PROFILE 12/30/2023 GGT 12/30/2023 IRON + IBC (FE) 12/30/2023 FERRITIN 12/30/2023 CBC w/o DIFF 12/30/2023 Alkaline Phosphatase Isoenzyme Future Test Test Name Order Date UPPER GI ENDOSCOPY 02/10/2024 COLONOSCOPY 02/10/2024 Insurance Providers Payer Name Payer Address Payer Phone Subscriber Number Group Number Insured Name Patient Relationship to Insured Coverage Start Date Coverage End Date [facility] [address] [address] [place] [address] [id number] LEO CUELLAR Self - patient is the insured Medical (General) History Medical History History ICD Code diabetes mellitus Coronary artery disease with history of [place] and stent placement 06/28 Hypertension COPD Congestive heart failure Paroxysmal atrial fibrillation Pulmonary emboli Chronic kidney disease ALYSIA Colon polyps Surgical History Surgery Date(Month/Year) carpal tunnel release Lobectomy for lung cancer Pneumothorax
--- OUTSIDE RECORDS SUMMARY | 2024-11-08 16:17 | XMS_ITS ---
Author Organization [facility] Address [address] [place] [address] Care Team Providers Care Shore Worker Name Role Phone Cali GUZMAN, Amanda Primary Care Provider Carol Senior [phone] Encounters Encounter Location Date Provider Diagnosis [facility] [address] [place] [address] 09/12/2024 Carol Ayon Plan Of Treatment No Information Progress Notes * Saima CUELLAR ADOB:1950 (74 yo F)Acc No.[id number]:09/12/2024 Progress Note Patient:Saima NOLEN Provider:?Carol Ayon DPM :1950???Age:73 Y???Sex:Female D ate:09/12/2024 Address:[address] [place], [place] [id number] Pcp:Amanda Leiva MD Subjective: * Chief Complaints: * ??? * Medical History:? Objective: * Vitals:? Assessment: Plan: * Treatment: * Images: * The named appointment provid er may or may not be the originator of this progress note, and it is not deemed complete until electronically signed by the appointment provider. Sign off status: Pending * Provider:?Carol Ayon DPM Date:?03/2025 Generated for Enzo zuniga/[place]/eTransmitting on:?11/08/2024 04:17 PM EST
--- OUTSIDE RECORDS SUMMARY | 2024-11-08 16:18 | XMS_ITS | Clinical Summary ---
Author Organization [facility] Address [address] [place] [address] Care Team Providers Care Creping Machine Operator Name Role Phone Ben Borges MD Primary Care Provider [phone] Immunizations Name Administration Dates Next Due Pfizer SARS-CoV-2 COVID-19, mRNA, LNP-S, preservative free 12/17/2021 Social History Tobacco Use Types Packs/Day Years Used Date Smoking Tobacco: Never Assessed Comments Unknown Sex and Gender Information Value Date Recorded Sex Assigned at Not on file Legal Sex Female 10:02 PM EST Gender Identity Not on file Sexual Orientation Not on file Plan of Treatment Health Maintenance Due Date Last Done Comments DTaP,Tdap,and Td Vaccines (1 - Tdap) 1967 Pneumococcal Vaccine: 50+ Ye ars (1 of 1 - PCV) 1998 Zoster Vaccines (1 of 2) 1998 Colorectal Cancer Screening: Colonoscopy 08/19/2022 Depression Screening 08/19/2022 Falls Risk Assessment 08/19/2022 Hepatitis C Screening 08/19/2022 Osteoporosis Screening (Bone Density Screening) 08/19/2022 Social Influencers of Health Screening 08/19/2022 RSV Immunization Patients 60 + Years Old (1 - 1-dose 75+ series) 2023 COVID-19 Vaccine (2 - 2023-2 5 season) 2024 12/17/2021 Influenza Vaccine (#1) 2024 HIB Vaccines Aged Out No longer eligi ble based on patient's age to complete this topic HPV Vaccines Aged Out No longer eligi ble based on patient's age to complete this topic Hepatitis A Vaccines Aged Out No long er eligible based on patient's age to complete this topic Hepatitis B Vaccines Aged Out No long er eligible based on patient's age to complete this topic IPV Vaccines Aged Out No longer eligi ble based on patient's age to complete this topic MMR Vaccines Aged Out No longer eligi ble based on patient's age to complete this topic Meningococcal ACWY Vaccine Aged Out N o longer eligible based on patient's age to complete this topic Meningococcal B Vacine Aged Out No lo nger eligible based on patient's age to complete this topic RSV Immunization Patients Un rory 20 months Aged Out No longer eligible b ased on patient's age to complete this topic Varicella Vaccines Aged Out No longer eligible based on patient's age to complete this topic Care Teams Creping Machine Operator Relationship Specialty Start Date End Date eBn Borges MD [address] [place] [address] PCP - General Internal Medicine 05/04/22
--- OUTSIDE RECORDS SUMMARY | 2024-11-08 16:18 | XMS_ITS | Patient Health Record ---
Author Organization [facility] Address [address] [place] [address] Care Team Providers Care Engraver Seals Name Role Phone Amanda Leiva MD Primary Care Provider Carol Senior Unavailable [phone] Allergies Allergen (clinical drug ingredient) Drug/Non Drug Allergy documented on EMR Reaction Allergy Type Onset Date Status sulfamethoxazole / trimethoprim Bactrim Unknown Drug Allergy Active nystatin Nystatin Unknown Drug Allergy Active Adhesive Unknown Allergy Active Latex Latex Unknown Allergy Active Results Component Value Reference Range Notes HEMOGLOBIN A1C (GLYCOHEMOGLO BIN) Reviewed date:03/22/2024 10:48:36 AM Interpretation: Performing Lab: Notes/Report: HEMOGLOBIN A1C (HH) 10.0 HEMOGLOBIN A1C (GLYCOHEMOGLO BIN) Reviewed date:06/20/2024 03:13:40 PM Interpretation: Performing Lab: Notes/Report: TOTAL HEMOGLOBIN (HGBA1C) 11.0 Reason For Referral No Information Medications Medication SIG (Take, Route, Frequency, Duration) Notes Start Date End Date Status Pantoprazole Sodium Active Clopidogrel Bisulfate Active Vitamin D Active busPIRone HCl Active dilTIAZem HCl Active Symbicort Active Montelukast Sodium A ctive Citalopram Hydrobromide Active Famotidine Active Ciclopirox Olamine 0.77 % 1 application Externally Twice a day to skin of feet including between the toes for 30 days Active Jardiance Active Vitamin C Active Iron Active Ozempic (2 MG/DOSE) Active eliquis Active HumaLOG Active Carvedilol Active Lantus Active Atorvastatin Calcium Active Lisinopril Active Immunizations Vaccine Route Administration Date Status Comme nts Influenza Unknown 06/06/2023 Administered Social History Tobacco Use: Social History Observation Description Date Details (start date - stop date) Former Smoker NA - NA Tobacco Use/Smoking Question Answer Notes Are you a: former smoker Additional Findings: Tobacco Non-User Current no n-smoker Alcohol Screen Question Answer Notes Did you have a drink contain ing alcohol in the past year? Yes How often did you have a dri nk containing alcohol in the past year? Monthly or less (1 point) Points 1 Interpretation Negative Tobacco use other than smoking: Question Answer Notes Are you an other tobacco user? No Problems Problem Type SNOMED Code ICD Code Onset Dates Problem Status W/U Status Risk Notes Problem Acquired hammer toe of right foot (2895443593250177 ) Other hammer toe(s) (acquired), right foot (M20.41) Active confirmed Problem Acquired hammer toe of left foot (8097278770244799 ) Other hammer toe(s) (acquired), left foot (M20.42) Active confirmed Problem Polyneuropathy due to type 2 diabetes mellitus (040545426) Type 2 diabetes mellitus with diabetic polyneuropathy (E11.42) Active confirmed Vital Signs Blood pressure diastolic 80 mm Hg 06/20/2024 Height 5ft 4in in 06/20/2024 Blood pressure systolic 126 mm Hg 06/20/2024 Weight 194 lbs 06/20/2024 BMI 33.3 kg/m2 06/20/2024 Encounters Encounter Location Date Provider Diagnosis [facility] [address] 03/22/2024 Carol Ayon Type 2 diabetes mellitus with diabetic polyneuropathy E11.42 ; Tinea unguium B35.1 ; Other hammer toe(s) (acquired), right foot M20.41 and Other hammer toe(s) (acquired), left foot M20.42 [facility] [address] 06/20/2024 Carol Ayon Type 2 diabetes mellitus with diabetic polyneuropathy E11.42 ; Tinea pedis of both feet B35.3 ; Tinea unguium B35.1 ; Other hammer toe(s) (acquired), right foot M20.41 and Other hammer toe(s) (acquired), left foot M20.42 [facility] [place] [address] [place] [address] 11/08/2024 [facility] [address] [address] 03/08/2024 [facility] [address] [address] 09/08/2024 Carol Ayon Assessments Encounter Date Diagnosis (ICD Code) Assessment Notes Treatment Notes Treatment Clinical Notes Section Notes 03/22/2024 Type 2 diabetes mellitus with diabetic polyneuropathy (ICD-10 - E11.42) 03/22/2024 Tinea unguium (ICD-10 - B35.1) 06/20/2024 Type 2 diabetes mellitus with diabetic polyneuropathy (ICD-10 - E11.42) 06/20/2024 Tinea pedis of both feet (ICD-10 - B35.3) 06/20/2024 Tinea unguium (ICD-10 - B35.1) 03/22/2024 Other hammer toe(s) (acquired), right foot (ICD-10 - M20.41) 03/22/2024 Other hammer toe(s) (acquired), left foot (ICD-10 - M20.42) 06/20/2024 Other hammer toe(s) (acquired), right foot (ICD-10 - M20.41) 06/20/2024 Other hammer toe(s) (acquired), left foot (ICD-10 - M20.42) Plan Of Treatment No Information Insurance Providers Payer Name Payer Address Payer Phone Subscriber Number Group Number Insured Name Patient Relationship to Insured Coverage Start Date Coverage End Date [employer] Preferred [address] [place] [address] [phone] [id number] Saima Restrepo Self - patient is the insured Medical (General) History Medical History History ICD Code Angina Cataracts covid-19 Depression Diabetic Fibromyalgia Gall bladder problems Heart disease High blood pressure Kidney disease Lung disease Reflux ( GERD) Measles Chicken pox Transfusions Surgical History Surgery Date(Month/Year) carpal tunnel surgery 97-98 achilles tendon 97-98 Heart stent 06/2023 cubital tunnel 97-98 Tracheomalacia 2013 Gall bladder removal 92
--- OUTSIDE RECORDS SUMMARY | 2024-11-08 16:18 | XMS_ITS | Clinical Summary ---
Author Organization [facility] Facility Address [address] [place] [address] Care Team Providers Care Scroll Machine Operator Name Role Phone Unavailable Primary Care Provider Unavailabl e Allergies Active Allergy Reactions Criticality Noted Date Comments Latex 12/18/2021 Metformin 12/18/2021 Oxycodone Hives,Itching Medium 02/28/2021 Zolpidem 12/18/2021 encephalopathy Medications albuterol (2.5 MG/3ML) 0.083% nebulizer solution INHALE 1 VIAL VIA NEBULIZER EVERY 6 HOURS NEEDED 2 Active Eliquis 5 MG tablet TAKE ONE TABLET TWICE DAILY, START ONCE inr<2 2 Active atorvastatin (LIPITOR) 40 MG tablet 40 mg every night 2 Active baclofen (LIORESAL) 10 MG tablet 2 Active busPIRone (BUSPAR) 5 MG tablet 2 Active Cholecalciferol 50 MCG (1999 UT) capsule Take 2,000 Int'l Units by mouth 1 Active citalopram (CeleXA) 20 MG tablet 2 Active cyclobenzaprine (FLEXERIL) 10 MG tablet TAKE 1/2 TABLET BY MOUTH THREE TIMES DAILY FOR 3 DAYS NEEDED FOR SPASM 2 Active dicyclomine (BENTYL) 10 MG capsule TAKE ONE CAPSULE FOUR TIMES DAILY 2 Active dilTIAZem CD (CARDIZEM CD) 240 MG 24 hr capsule Take 240 mg by mouth 1 (one) time each day 2 Active Jardiance 10 MG tablet 2 Active Lantus SoloStar 100 UNIT/ML injection 2 Active HumaLOG KWIKPEN 100 UNIT/ML solution pen-injector 2 Active loratadine (CLARITIN) 10 MG tablet Take 10 mg by mouth 1 (one) time each day 2 Active losartan (COZAAR) 50 MG tablet Take 50 mg by mouth 1 (one) time each day 2 Active metoprolol tartrate (LOPRESSOR) 50 MG tablet TAKE ONE TABLET TWICE DAILY 2 Active oxyCODONE (ROXICODONE) 10 MG immediate release tablet Take 10 mg by mouth every 6 (six) hours if needed 2 Active pantoprazole (PROTONIX) 40 MG EC tablet TAKE ONE TABLET TWICE DAILY 2 Active Active Problems Problem Noted Date Diagnosed Date Atrial fibrillation 12/18/2021 Cervical disc disorder 12/18/2021 Chronic abdominal pain 12/18/2021 Chronic constipation 12/18/2021 Chronic obstructive pulmonary disease 12/18/2021 CT of abdomen abnormal 12/18/2021 Depressive disorder 12/18/2021 Disorder of pancreas 12/18/2021 Diabetes mellitus 12/18/2021 Gastroesophageal reflux disease 12/18/2021 Hyperlipidemia 12/18/2021 Hypertensive disorder 12/18/2021 Hypokalemia 12/18/2021 Insomnia 12/18/2021 Lumbago 12/18/2021 Malignant tumor of lung 12/18/2021 Memory impairment 12/18/2021 Obese class I 12/18/2021 Obstructive sleep apnea syndrome 12/18/2021 Polyp of colon 12/18/2021 Overview (12/18/2021): Palpation 30 colon polyps, 13 removed. Recommended colonoscopy in 3 months Tracheomalacia 12/18/2021 Uncontrolled type 2 diabetes mellitus 12/18/2021 Overview (06/06/2024): Replacing diagnoses that were inactivated after the 06/06/24 Regulatory Import Urinary incontinence 12/18/2021 Vertigo 12/18/2021 Immunizations Name Administration Dates Next Due Influenza Whole 06/25/2007 Moderna SARS-COV-2 11/20/2020,10/23/2020 Pneumococcal Polysaccharide 07/07/2010,02/19/200 5 Social History Tobacco Use Types Packs/Day Years Used Date Smoking Tobacco: Never Assessed Comments Unknown Sex and Gender Information Value Date Recorded Sex Assigned at Not on file Legal Sex Female 4:52 PM EST Gender Identity Not on file Sexual Orientation Not on file Plan of Treatment Health Maintenance Due Date Last Done Comments Breast Cancer Screening 1950 Colorectal Cancer Screening: Annual FOBT 1997 Colorectal Cancer Screening: Colonoscopy 1997 Colorectal Cancer Screening: Sigmoidoscopy 1997 Pneumococcal Vaccine: 65+ Years (3 of 3 - PCV) 07/07/2011 07/07/2010, 10/25/2004 Diabetes: Hemoglobin A1C 10/17/2021 Diabetes: Ophthalmology Exam 10/17/2021 Diabetes: Pedal Pulse Checked 10/17/2021 Diabetes: Sensory Foot Exam 10/17/2021 Diabetes: Visual Foot Exam 10/17/2021 Influenza Vaccine (#1) 2024 06/25/2007 Hepatitis B Vaccine Aged Out No longe r eligible based on patient's age to complete this topic Insurance MEDICARE MEDICARE
--- OUTSIDE RECORDS SUMMARY | 2024-11-08 16:18 | XMS_ITS ---
Author Organization [facility] Address [address] [place] [address] Care Team Providers Care Global Account Director Name Role Phone Amanda Leiva MD Primary Care Provider Marcel Bentley Jr [phone] REASON FOR VISIT FYI Encounters Encounter Location Date Provider Diagnosis [facility] [address] [place] [address] 03/15/2024 Marcel Sorenson Jr Plan Of Treatment No Information Progress Notes * LEO CUELLAR ADOB:1950 (73 yo F)Acc No.[id number]:03/15/2024 Patient:?JOHN CUELLAREN Quinten :1950???Age:73 Y???Sex:Female Address:[address] [place] [address], [place], [address] * true * Date:? Generated for Printi efrain/[place]/eTransmitting on:?11/08/2024 04:17 PM EST
--- OUTSIDE RECORDS SUMMARY | 2024-11-08 16:18 | XMS_ITS ---
Author Organization [facility] Address [address] [place] [address] Care Team Providers Care Finishing Machine Tender Name Role Phone Amanda Leiva MD Primary Care Provider Carol Senior [phone] REASON FOR VISIT No Show Encounters Encounter Location Date Provider Diagnosis [address] [address] 11/08/2024 Carol Ayon Plan Of Treatment No Information Progress Notes * Saima CUELLAR ADOB:1950 (74 yo F)Acc No.[id number]:11/08/2024 Patient:?Saima CUELLAR :1950???Age:74 Y???Sex:Female Address:[address] [place] [address] * * Date:?
--- OUTSIDE RECORDS SUMMARY | 2024-11-08 16:18 | XMS_ITS ---
Author Organization [facility] Address [address] [place] [address] Care Team Providers Care Auto Battery Builder Name Role Phone Amanda Leiva MD Primary Care Provider Carol Senior Unavailable [phone] Allergies Allergen (clinical drug ingredient) Drug/Non Drug [...] between the toes for 30 days Active Vitamin C Active Ozempic (2 MG/DOSE) Active HumaLOG Active Lantus Active Vitamin D Active dilTIAZem HCl Active Montelukast Sodium A ctive Iron Active eliquis Active Citalopram Hydrobromide Active Famotidine Active Carvedilol Active Atorvastatin Calcium Active Lisinopril Active Pantoprazole Sodium Active Clopidogrel Bisulfate Active busPIRone HCl Active Symbicort Active Jardiance Active Encounters Encounter Location Date Provider Diagnosis [facility] [address] [place] [address] 11/08/2024 Carol Ayon Plan Of Treatment No Information Progress Notes * Saima CUELLAR ADOB:1950 (74 yo F)Acc No.[id number]:11/08/2024 Progress Note Patient:?Saima CUELLAR Provider:?Carol Ayon DPM :1950???Age:74 Y???Sex:Female D ate:11/08/2024 Address:[address] [place], [place] [id number] Pcp:Amanda Leiva MD Subjective: * Chief Complaints: * ??? * HPI: ???At Risk footcare:?Pt States Last PCP Visit:?Date?06/06/2024 * Medical History:?Angina, Cat aracts, Covid-19, Depression, Diabetic, Fibromyalgia, Gall bladder problems, Heart disease, High blood pressure, Kidney disease, Lung disease, Reflux ( GERD), Measles, Chicken pox, Transfusions. * Medications:?Taking Lantus , Taking HumaLOG , Taking Ozempic [...] of feet including between the toes * Allergies:?Bactrim, Adhesive , Latex, Nystatin. Objective: * Vitals:? Assessment: Plan: * Treatment: * Images: * The named appointment provid er may or may not be the originator of this progress note, and it is not deemed complete until electronically signed by the appointment provider. Sign off status: Pending * Provider:?Carol Ayon DPM Date:?01/2025 Generated for Enzo zuniga/[place]/Fara on:?11/08/2024 04:18 PM EST History and Physical Notes * HPI (History of Present Illness) Category Sub-Category Detail Notes Category Not es At Risk footcare Pt States Last PCP Visit: Date:
--- OUTSIDE RECORDS SUMMARY | 2024-11-08 16:18 | XMS_ITS ---
Author Organization [facility] Address [address] [place] [address] Care Team Providers Care Gas Station Operator Name Role Phone Amanda Leiva MD Primary Care Provider Marcel Bentley Jr [phone] REASON FOR VISIT Do we have cardiac note Encounters Encounter Location Date Provider Diagnosis [facility] [address] [place] [address] 03/14/2024 Marcel Sorenson Jr Plan Of Treatment No Information Progress Notes * LEO CUELLAR ADOB:1950 (73 yo F)Acc No.[id number]:03/14/2024 Patient:?LEO CUELLAR :1950???Age:73 Y???Sex:Female Address:[address] [place] [address], [place], [address] * true * Date:? Generated for Eliasi efrain/[place]/eTransmitting on:?11/08/2024 04:17 PM EST
== END 2024-11-08 14:29 | disposition home or self-care (01) ==
PROVIDERS: PCP Internal Medicine; Visit Provider Internal Medicine
DX: J44.89 Other specified chronic obstructive pulmonary disease (principal); G47.33 Obstructive sleep apnea (adult) (pediatric)
CPT/HCPCS: 99213

== ENCOUNTER → 2024-11-08 13:40 | Outpatient (BNVA) | payer MEDICARE, SELFPAY | PROVIDERS: PCP Internal Medicine; Visit Provider Internal Medicine | DX: J44.89 Other specified chronic obstructive pulmonary disease (principal); G47.33 Obstructive sleep apnea (adult) (pediatric); Z87.891 Personal history of nicotine dependence | CPT/HCPCS: 99212 ==

== ENCOUNTER 2024-12-08 06:34 | Outpatient (REF) | payer MEDICARE, SELFPAY ==
--- OUTSIDE RECORDS SUMMARY | 2024-12-08 06:36 | XMS_ITS ---
Author Organization [facility] Address [address] [place] [address] Care Team Providers Care Plant Care Worker Name Role Phone Cali GUZMAN, Amanda Primary Care Provider Marcel Bentley Jr REASON FOR VISIT fe def anemia Encounters Encounter Location Date Provider Diagnosis [facility] Outpatient [address] [place], [place] [phone] 03/17/2024 Marcel Sorenson Jr Plan Of Treatment No Information Progress Notes * LEO CUELLAR ADOB:1950 (74 yo F)Acc No.[id number]:03/17/2024 EGD and COL/MAC Patient:?LEO CUELLAR Provider:?Marcel Sorenson MD :1950???Age:73 Y???Sex:Female D ate:03/17/2024 Address:[address] [place], [place] [id number] Pcp:Amanda Leiva MD Subjective: * Chief Complaints: [...] MD Date:?0 03/17/2024 Generated for Enzo zuniga/[place]/eTransmitting on:?12/08/2024 06:36 AM EDT
--- OUTSIDE RECORDS SUMMARY | 2024-12-08 06:36 | XMS_ITS ---
Author Organization [facility] Address [address] [place] [address] Care Team Providers Care Neonatal Intensive Care Nurse Name Role Phone Cali GUZMAN, Amanda Primary Care Provider Carol Senior [phone] Encounters Encounter Location Date Provider Diagnosis [facility] [address] [place] [address] 09/12/2024 Carol Ayon Plan Of Treatment No Information Progress Notes * Saima CUELLAR ADOB:1950 (74 yo F)Acc No.[id number]:09/12/2024 Progress Note Patient:Saima NOLEN Provider:?Carol Ayon DPM :1950???Age:73 Y???Sex:Female D ate:09/12/2024 Address:[address] [place], [place] [phone] Pcp:Amanda Leiva MD Subjective: * Chief Complaints: [...] Ayon DPM Date:?03/2025 Generated for Enzo zuniga/[place]/eTransmitting on:?12/08/2024 06:36 AM EDT
--- OUTSIDE RECORDS SUMMARY | 2024-12-08 06:37 | XMS_ITS ---
Author Organization [facility] Address [address] [place] [address] Care Team Providers Care Marker Maker Name Role Phone Amanda Leiva MD Primary Care Provider Carol Senior [phone] REASON FOR VISIT No Show Encounters Encounter Location Date Provider Diagnosis [address] [address] 11/08/2024 Carol Ayon Plan Of Treatment No Information Progress Notes * Saima CUELLAR ADOB:1950 (74 yo F)Acc No.[id number]:11/08/2024 Patient:?Saima CUELLAR :1950???Age:74 Y???Sex:Female Address:[address] [place] [address] * true * Date:? Generated for Printi efrain/[place]/eTransmitting on:?12/08/2024 06:36 AM EDT
--- OUTSIDE RECORDS SUMMARY | 2024-12-08 06:37 | XMS_ITS ---
Author Organization [facility] Address [address] [place] [address] Care Team Providers Care Cancer Genetics Assistant Name Role Phone Amanda Leiva MD Primary Care Provider Carol Senior Unavailable [phone] Allergies Allergen (clinical drug ingredient) Drug/Non Drug [...] Active Encounters Encounter Location Date Provider Diagnosis [facility] [address] [place] [address] 11/08/2024 Carol Ayon Plan Of Treatment No Information Progress Notes * Saima CUELLAR ADOB:1950 (74 yo F)Acc No.[id number]:11/08/2024 Progress Note Patient:?Saima CUELLAR Provider:?Carol Ayon DPM :1950???Age:74 Y???Sex:Female D ate:11/08/2024 Address:[address] [place], [place] [address] Pcp:Amanda Leiva MD Subjective: * Chief Complaints: [...] Ayon DPM Date:?01/2025 Generated for Enzo zuniga/[place]/Fara on:?12/08/2024 06:37 AM EDT History and Physical Notes * HPI (History of Present Illness) Category Sub-Category Detail Notes Category Not es At Risk footcare Pt States Last PCP Visit: Date:
--- OUTSIDE RECORDS SUMMARY | 2024-12-08 06:37 | XMS_ITS | Patient Health Record ---
[facility] Address [address] [place] [address] Care Team Providers Care Boring Machine Set Up Operator Jig Name Role Phone Amanda Leiva MD Primary Care Provider Carol Senior Unavailable [phone] Allergies Allergen (clinical drug ingredient) Drug/Non Drug [...] Problem Acquired hammer toe of right foot (6623925267542901 ) Other hammer toe(s) (acquired), right foot (M20.41) Active confirmed Problem Acquired hammer toe of left foot (3065992173191473 ) Other hammer toe(s) (acquired), left foot (M20.42) Active confirmed Problem Polyneuropathy due to type 2 diabetes mellitus (952980977) Type 2 diabetes mellitus with diabetic polyneuropathy (E11.42) Active confirmed Vital Signs Blood pressure diastolic 80 mm Hg 06/20/2024 Height 5ft 4in in 06/20/2024 Blood pressure systolic 126 mm Hg 06/20/2024 Weight 194 lbs 06/20/2024 BMI 33.3 kg/m2 06/20/2024 Encounters Encounter Location Date Provider Diagnosis [facility] [address] 03/22/2024 Carol Ayon Type 2 diabetes mellitus with diabetic polyneuropathy E11.42 ; Tinea unguium B35.1 ; Other hammer toe(s) (acquired), right foot M20.41 and Other hammer toe(s) (acquired), left foot M20.[facility] [address] 06/20/2024 Carol Ayon Type 2 diabetes mellitus with diabetic polyneuropathy E11.42 ; Tinea pedis of both feet B35.3 ; Tinea unguium B35.1 ; Other hammer toe(s) (acquired), right foot M20.41 and Other hammer toe(s) (acquired), left foot M20.42 [facility] [address] [place] [address] 03/08/2024 Carol Ayon [facility] [address] [address] 09/08/2024 [facility] [address] [address] 11/08/2024 Carol Ayon Assessments Encounter Date Diagnosis (ICD [...] [facility] Medicare Preferred [address] [place] [address] [id number] Saima Restrepo Self - patient is the [...]
--- OUTSIDE RECORDS SUMMARY | 2024-12-08 06:37 | XMS_ITS ---
Author Organization [facility] Address [address] [place] [address] Care Team Providers Care Casino Investigator Name Role Phone Amanda Leiva MD Primary Care Provider Marcel Bentley Jr [phone] REASON FOR VISIT FYI Encounters Encounter Location Date Provider Diagnosis [facility] [address] [place] [address] 03/15/2024 Marcel Sorenson Jr Plan Of Treatment No Information Progress Notes * LEO CUELLAR ADOB:1950 (73 yo F)Acc No.[id number]:03/15/2024 Patient:?JOHN CUELLAREN Quinten :1950???Age:73 Y???Sex:Female Address:[address] [place] [address], [facility], [address] * true * Date:? Generated for Printi ng/Fajackig/eTransmitting on:?12/08/2024 06:37 AM EDT
--- OUTSIDE RECORDS SUMMARY | 2024-12-08 06:37 | XMS_ITS | Clinical Summary ---
Author Organization [facility] Facility Address [address] [place] [address] Care Team Providers Care Lip Cutter And Scorer Name Role Phone Unavailable Primary Care Provider [...] Health Maintenance Due Date Last Done Comments Pneumococcal Vaccine: 65+ Years (3 of 3 [...]
--- OUTSIDE RECORDS SUMMARY | 2024-12-08 06:37 | XMS_ITS | Clinical Summary ---
Author Organization [facility] Address [address] [place] [address] Care Team Providers Care Electric Installer Name Role Phone Ben Borges MD Primary Care Provider Immunizations Name Administration Dates Next Due Pfizer [...] 1998 Zoster Vaccines (1 of 2) 1998 Depression Screening 08/19/2022 Falls Risk Assessment 08/19/2022 Hepatitis C Screening 08/19/2022 Osteoporosis Screening (Bone Density Screening) 08/19/2022 Social Influencers of Health Screening 08/19/2022 RSV Immunization Adult Patie nts (1 - 1-dose 75+ series) 2023 COVID-19 [...] age to complete this topic Care Teams Electric Installer Relationship Specialty Start Date End Date Ben Borges MD [address] [place] [address] PCP - General Internal Medicine 05/04/22
--- OUTSIDE RECORDS SUMMARY | 2024-12-08 06:37 | XMS_ITS ---
Author Organization [facility] Address [address] [place] [address] Care Team Providers Care Crate Tier Name Role Phone Amanda Leiva MD Primary Care Provider Marcel Bentley Jr REASON FOR VISIT Do we have cardiac note Encounters Encounter Location Date Provider Diagnosis [facility] [address] [place] [address] 03/14/2024 Marcel Sorenson Jr Plan Of Treatment No Information Progress Notes * LEO CUELLAR ADOB:1950 (73 yo F)Acc No.[id number]:03/14/2024 Patient:?LEO CUELLAR :1950???Age:73 Y???Sex:Female Address:[address] [place] [address], [place], [address] * true * Date:? Generated for Printi efrain/[place]/eTransmitting on:?12/08/2024 06:36 AM EDT
[2024-12-08 10:06] LABS: MANUAL DIFF FLAG NO
[2024-12-08 10:18] LABS: Basophils Absolute Auto 0.1 X10*3/uL (0.0-0.2); Basophils Percent Auto 1.3 % (0-2); Eosinophils Absolute Auto 0.5 X10*3/uL (0.0-0.4); Eosinophils Percent Auto 5.5 % (0-4); Hematocrit 40.1 % (37.0-47.0); Hemoglobin 12.2 g/dl (12.0-16.0); Imm Gran Abs Auto 0.03 X10*3/uL (0.00-0.03); Imm Gran Pct Auto 0.3 % (0.0-0.4); Lymphocytes Absolute Auto 1.9 X10*3/uL (1.2-4.9); Lymphocytes Percent Auto 22.1 % (20-40); Mean Corpuscular HGB Conc 30.4 g/dl (31.0-35.0); Mean Corpuscular Hemoglobin 24.3 pg (27.0-33.0); Mean Corpuscular Volume 79.7 fL (80.0-98.0); Mean Platelet Volume 10.1 fL (9.4-12.3); Monocytes Absolute Auto 0.7 X10*3/uL (0.1-1.2); Monocytes Percent Auto 8.5 % (2-11); Neutrophils Absolute Auto 5.4 x10*3/uL (2.0-8.3); Neutrophils Percent Auto 62.3 % (45-73); Platelet Count 306 X10*3/uL (160-400); Red Blood Count 5.03 X10*6/uL (4.20-5.50); Red Cell Distribution Width 19.8 % (11.0-16.0); White Blood Count 8.7 X10*3/uL (4.8-10.8)
[2024-12-08 10:58] LABS: Alanine Aminotransferase 15 U/L (0-31); Alkaline Phosphatase 140 U/L (39-117); Anion Gap 13 (12-20); Aspartate Amino Transferase 19 U/L (5-31); Bilirubin Total 0.6 mg/dL (0.0-1.0); Blood Urea Nitrogen 25 mg/dL (9-16); Calcium 8.9 mg/dL (8.4-10.2); Carbon Dioxide 24 mmol/L (22-29); Chloride 108 mmol/L (96-108); Cholesterol 148 mg/dL (<200); Estimated Glomerular Filt Rate 49; Glucose Fasting 186 mg/dL (60-99); HDL Cholesterol 42 mg/dL (>40); Iron 45 mcg/dL (30-160); LDL Cholesterol Calculated 87 mg/dL (<100); Percent Iron Saturation 14 % (15-50); Potassium 3.7 mmol/L (3.3-5.1); Sodium 141 mmol/L (135-145); Total Iron Binding Capacity 318 mcg/dL (228-428); Total Protein 7.1 g/dL (6.5-8.0); Triglycerides 99 mg/dL (<150); Unsaturated Iron Binding 273 ug/dL
[2024-12-08 11:21] LABS: Estimated Average Glucose 180 mg/dL; Hemoglobin A1C 205.3875 umol/L; Hemoglobin A1c % 7.9 % (<6.0); Total Hemoglobin (HGBA1C) 3252.1745 umol/L
[2024-12-08 11:28] LABS: Vitamin B12 499 pg/mL (200-900)
[2024-12-08 11:55] LABS: Creatinine Urine 103.77 mg/dL; Microalbum/Creatinine Ratio Ur 348.8 ug/mg cr (<30)
== END 2024-12-08 06:35 | disposition home or self-care (01) ==
LOC: HO.HMGCLDS 06:34
PROVIDERS: PCP Internal Medicine; Visit Provider Internal Medicine
DX: E11.9 Type 2 diabetes mellitus without complications (principal); I48.0 Paroxysmal atrial fibrillation; I50.30 Unspecified diastolic (congestive) heart failure; E11.22 Type 2 diabetes mellitus with diabetic chronic kidney disease; N18.30 Chronic kidney disease, stage 3 unspecified; D64.9 Anemia, unspecified; E55.9 Vitamin D deficiency, unspecified; Z79.4 Long term (current) use of insulin
CPT/HCPCS: 36415; 80053; 80061; 82043; 82306; 82570; 82607; 82746; 83036; 83540; 85025

== ENCOUNTER 2024-12-14 10:31 | Outpatient (AMB) | payer MEDICARE, SELFPAY ==
[2024-12-14 10:44] VITALS: BP 120/58; PULSE 99; RESP 20; TEMP 37.2; O2SAT 95; BMI 33.3
--- NOTE | 2024-12-14 10:44 | A.OFFPC_ITS ---
Vital Signs 12/14/24 10:44 Height 5 ft 4 in Weight 194 lb BMI 33.3 BP 120/58 L Blood Pressure Location Rt brachial Position Sitting Respiration 20 Pulse 99 Pulse Source Pulse Oximeter Temp 99.0 F Temp Source Oral Pulse Oximetry (%) 95 Oxygen Delivery Method Room Air Intake Visit Reasons: Follow up on DM and labs Intake Note: Pt is here today for a follow up visit on DM. 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: No Accompanied by: Self / Same As Patient Allergies Latex, Natural Rubber Allergy (Severe, Verified 12/14/24 10:44) blisters Sulfa (Sulfonamide Antibiotics) [SULFA (SULFONAMIDE ANTIBIOTICS)] Allergy (Mild, Verified 12/14/24 10:44) ITCHING, rash nystatin Allergy (Unknown, Verified 12/14/24 10:44) rash isosorbide [From Imdur] Adverse Reaction (Unknown, Verified 12/14/24 10:44) HEADACHES, headache tizanidine Adverse Reaction (Unknown, Verified 12/14/24 10:44) weakness, Hellucination Medication List - Last Reconciled 12/14/24 by Amanda Leiva MD acetaminophen 650 mg (2 x 325 mg) PO Q6H PRN albuterol sulfate 90 mcg/actuation 2 puffs inhalation QID PRN apixaban (Eliquis) 5 mg PO BID atorvastatin 80 mg PO BEDTIME blood sugar diagnostic (IntrallectTouch Verio test strips) Test blood sugar 3 times per day blood-glucose meter (OneTouch Verio Flex Meter) As directed budesonide-formoterol 160-4.5 mcg/actuation (Symbicort) 2 puffs inhalation BID PRN buspirone 10 mg PO BID carvedilol 6.25 mg PO BID 90 days celecoxib (Celebrex) 200 mg PO BID 30 days cholecalciferol (vitamin D3) 25 mcg PO DAILY citalopram 20 mg PO DAILY compr.stocking,thigh,reg,large Thigh High compression stockings 10-20mmHg diltiazem HCl ER 300 mg PO DAILY docusate sodium 100 mg PO BID PRN empagliflozin (Jardiance) 25 mg PO DAILY flash glucose sensor (FreeStyle Kelly 2 Sensor kit) As directed every 2 weeks furosemide 20 mg PO DAILY insulin glargine (Lantus Solostar U-100 Insulin) 25 units (0.25 mL) subcut BEDTIME insulin lispro (Humalog KwikPen (U-100) Insulin) 1 sliding scale dose subcut USEASDIRECTD ipratropium-albuterol 0.5 mg-3 mg(2.5 mg base)/3 mL 3 mL inhalation Q8H PRN ipratropium-albuterol 0.5 mg-3 mg(2.5 mg base)/3 mL 3 mL inhalation Q6H PRN 30 days lancets (OneTouch Delica Plus Lancet) Test blood sugar 3 times per day loratadine 10 mg PO DAILY PRN montelukast 10 mg PO BEDTIME 30 days Ozempic (semaglutide) 2 mg (0.75 mL) subcut MCWILLIAMS NS pantoprazole 40 mg PO BID@0630,1630 sennosides-docusate sodium 8.6-50 mg (Stimulant Laxative Plus) 2 tabs PO BID PRN simethicone 80 mg PO QID PRN walker As directed Tobacco use date assessed: 12/14/24 Fall risk assessment: No Falls in past year Last assessed Fall Risk: 12/14/24 Dental Screening Dental Screen Date: 12/14/24 Did you have a dental visit in the last 12 months?: Yes Did you have a dental problem in the last 6 months where you did not have access to dental care?: No Was dental information given to patient?: Patient has dentist HPI Follow up on DM and labs HPI Details Pt presents for f/u IDDM, CKD3, A fib, hyperlipid, asthma/COPD, chronic depression, stable on current medications. Patient complains of chronic bilateral knee pain worse when starting to walk. She is established with orthopedic surgeon but not interested in getting physical therapy or knee injections. 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 Father No problems noted. Brother Substance use disorder Brother Substance use disorder Social History Household Members: Family Household Members Other:: 2 Housing: House Do you presently have visiting nurse or other home services: No Alcohol intake: former Patient Tobacco Use Status: Former Tobacco user Tobacco use type: Cigarette Cigarettes Per Day: 10 Years Smoked: 3 e-Cigarette/Vaping Use: Never Used Second Hand Smoke Exposure: No Advance Directives Date on File: 06/29/23 service: No Current occupational status: retired Cognitive needs: No Hearing needs: No Vision needs: No Questionnaire PHQ-9 Over the last 2 weeks, how often have you been bothered by any of the following problems? 1. Little interest or pleasure in doing things: more than half the days 2. Feeling down, depressed, or hopeless: not at all 3. Trouble falling or staying asleep, or sleeping too much: several days 4. Feeling tired or having little energy: nearly every day 5. Poor appetite or overeating: nearly every day 6. Feeling bad about yourself - or that you are a failure or have let yourself or your family down: not at all 7. Trouble concentrating on things, such as reading the newspaper or watching television: not at all 8. Moving or speaking so slowly that other people could have noticed. Or the opposite - being so fidgety or restless that you have been moving around a lot more than usual: more than half the days 9. Thoughts that you would be better off or of hurting yourself in some way: not at all Total score: 11 Depression Screening Interpretation: Positive (increase Buspar 10 mg bid, cont citalopram, pt declined counseling) Depression Screening Follow-up: Existing condition and In treatment Depression Screening Done: Yes 09282 - PHQ-9 Billing: Yes Source: Developed by Drs. Jeronimo Wallis, Saige Barrios, Nj Will and colleagues, with an educational katharine from [employer]. Thrive Questionnaire Date Thrive assessed: 12/14/24 I am a: Patient What is your living situation today?: I have a steady place to live Within the past 12 months, did the food you bought not last and you didn't have the money to get more?: Never true Within the past 12 months, did you worry whether your food would run out before you got money to buy more?: Never true Do you have trouble paying for medicines?: No Do you have trouble getting transportation to medical appointments?: No Do you have trouble paying your heating and electricity bill?: No Do you have trouble taking care of your child, family member or friend?: No Do you have trouble with day-to-day activities such as bathing, preparing meals, shopping, managing finances, etc.?: No Are you currently unemployed and looking for a job?: No Are you interested in more education?: No Please select the resources that you would like help with: None Currently or been in a relationship where the following occur: No concerns reported and I choose not to answer THRIVE Score: 0 AUDIT C Alcohol Use Questionnaire (AUDIT-C) 1. How often do you have a drink containing alcohol?: Monthly or less 2. How many drinks containing alcohol do you have on a typical day when you are drinking?: 1 or 2 3. How often do you have six or more drinks on one occasion?: Never Total Score: 1 Score Reviewed/Action Taken: Yes DOMINIQUE-7 AMB Questionnaire DOMINIQUE-7 Date DOMINIQUE - 7 assessed: 12/14/24 Feeling nervous, anxious, or on edge: 0 = Not at all Not being able to stop or control worryin = Not at all Worrying too much about different things: 0 = Not at all Trouble relaxin = Not at all Being so restless that it is hard to sit still: 0 = Not at all Becoming easily annoyed or irritable: 3 = Nearly every day Feeling afraid as if something awful might happen: 0 = Not at all Total DOMINIQUE-7 score (0-4 normal; 5-9 mild; 10-14 moderate; 15-21 severe): 3 Source: Developed by Drs. Jeronimo Wallis, Saige Barrios, Nj Will and colleagues, with an educational katharine from [employer]. DOMINIQUE-7 Assessment Billing DOMINIQUE-7 Assessment Tool: DOMINIQUE-7 Assessment 54626 Review of Systems Const All systems reviewed & are unremarkable except as noted in HPI and below Reports no additional complaints Eyes Reports no additional complaints ENT Reports no additional complaints Card Reports no additional complaints Resp Reports no additional complaints GI Reports no additional complaints Reports no additional complaints Musc Reports no additional complaints Physical exam (Primary Care) Vital Signs: Last Vital Signs Temp 99.0 F 12/14/24 10:44 Pulse 99 12/14/24 10:44 Resp 20 12/14/24 10:44 BP 120/58 L 12/14/24 10:44 Pulse Ox 95 12/14/24 10:44 Oxygen Delivery Method Room Air 12/14/24 10:44 BMI result Body Mass Index 33.3 Tobacco/Smoking Status: Tobacco use Status Tobacco use date assessed 12/14/24 12/14/24 10:46 Patient Tobacco Use Status Former Tobacco user 12/14/24 10:46 Tobacco use type Cigarette 12/14/24 10:46 e-Cigarette/Vaping Use Never Used 12/14/24 10:46 PHQ-9: PHQ-9 Score PHQ-9: Total score 11 12/14/24 12:30 Depression Screening Interpretation: Positive (increase Buspar 10 mg bid, cont citalopram, pt declined counseling) Depression Screening Follow-up: Existing condition and In treatment Thrive Assessment: Date of Thrive Assessment Date Thrive assessed 12/14/24 12/14/24 10:46 Currently or been in a relationship where the following occur: No concerns reported and I choose not to answer Const General: no acute distress HENMT Head: Yes normal to inspection Face and sinus: Yes normal facial exam Mouth: Normal oral and palatal mucosa present Throat: Yes posterior oropharynx normal Eyes General: appearance normal, both eyes and all related structures Neck Other: There is slight prominence over right sternoclavicular joint, no tenderness erythema or warmth Neck: Yes no lymphadenopathy and Yes supple Resp Effort & Inspection: normal respiratory effort Auscultation: clear to auscultation bilaterally Cardio Rhythm: regular rhythm Heart sounds: S1 normal heart sound present and S2 normal heart sound present GI Inspection: Yes normal to inspection Palpation (GI): Soft to palpation Percussion: Yes normal to percussion Auscultation: normal bowel sounds Extrem Other: There is a decreased range of motion crepitus of both knees General: Yes no clubbing, cyanosis or edema Coding Level of Care Code Est Pt Level 4 (61616) Complex EM visit Add On G2211 Diagnoses Neck mass R22.1 DM type 2 (diabetes mellitus, type 2) E11.9 Paroxysmal atrial fibrillation I48.0 Heart failure with preserved ejection fraction I50.30 Asthma with COPD J44.89 CKD stage 3 due to type 2 diabetes mellitus E11.22; N18.30 S/P cardiac catheterization Z98.890 Anxiety and depression F41.9; F32.A Additional Codes DOMINIQUE-7 Assessment Billing - DOMINIQUE-7 Assessment Tool: DOMINIQUE-7 Assessment 84984 ([id number]) PHQ-9 - 60832 - PHQ-9 Billing: Yes ([id number]) Assessment & Plan Assessment & Plan (1) Neck mass: Code(s): R22.1 - Localized swelling, mass and lump, neck Category: Medical Plan: Obtain soft tissue ultrasound to evaluate (2) DM type 2 (diabetes mellitus, type 2): Code(s): E11.9 - Type 2 diabetes mellitus without complications Category: Medical Plan: A1c is 7.9 from 6.7 3 months ago. Patient has not been using Ozempic regularly. She reports compliance with insulin using sliding scale and following ADA diet most of the time. She reports improved glucose readings since she restarted Ozempic. (3) Paroxysmal atrial fibrillation: Code(s): I48.0 - Paroxysmal atrial fibrillation Category: Medical Plan: Rate controlled on carvedilol and diltiazem and anticoagulated on Eliquis. Follow-up with Cardiology (4) Heart failure with preserved ejection fraction: Comment: Echo 11/2023 EF>70 %, NO REGIONAL WALL MOTION ABNORMALITIES, NORMAL RIGHT VENTRICULAR SYSTOLIC FUNCTION, MILD Code(s): I50.30 - Unspecified diastolic (congestive) heart failure Category: Medical Plan: Continue current medications follow-up with the Cardiology (5) Asthma with COPD: Comment: PATIENT HAS LONGSTANDING HISTORY OF BRONCHIAL ASTHMA/COPD. AFTER PROLONGED INTUBATION SHE HAD DEVELOPED TRACHEOMALACIA IN 2009 . SHE UNDERWENT TRACHEO PLASTY AT [facility] , LOST FOLLOW-UP OVER THERE WAS IN 2021 INCLUDING A BRONCHOSCOPY AND THERE WAS NO EVIDENCE OF TRACHEOMALACIA. HER MAINTENANCE MEDICAL REGIMEN INCLUDES SYMBICORT 160-4.5 2 PUFFS B.I.D., Since her last visit she is using Symbicort regularly 2 puffs b.i.d.. SHE ALSO HAS NEBULIZER WITH [employer], TO BE USED P.R.N.. Code(s): J44.89 - Other specified chronic obstructive pulmonary disease Category: Medical Plan: Continue Symbicort and albuterol p.r.n. follow-up with pulmonology (6) CKD stage 3 due to type 2 diabetes mellitus: Code(s): E11.22 - Type 2 diabetes mellitus with diabetic chronic kidney disease; N18.30 - Chronic kidney disease, stage 3 unspecified Category: Medical Plan: Avoid nephrotoxins monitor renal function (7) S/P cardiac catheterization: Comment: 06/27/2024, left main normal, lad ostial diagonal 60-70% stenosis, left circumflex OM1 stent mild in stent stenosis, RCA minimal luminal irregularities Code(s): Z98.890 - Other specified postprocedural states Category: Surgical Plan: Continue high dose of statin and carvedilol (8) Anxiety and depression: Code(s): F41.9 - Anxiety disorder, unspecified; F32.A - Depression, unspecified Category: Medical Plan: Increase buspirone to 10 mg twice a day continue citalopram patient declined counseling. She is switching to PCP in [place] for the convenience of location. Orders: Orders US soft tiss head and/or neck Today R22.1 - Localized swelling, mass and lump, neck Medications: New buspirone 10 mg PO BID 180 tabs 1RF pantoprazole 40 mg PO .qd 90 tabs 3RF Refilled carvedilol must administer with a meal/food 6.25 mg PO BID 90 days 180 tabs 3RF apixaban (Eliquis) 5 mg PO BID 180 tabs 3RF Discontinued celecoxib (Celebrex) Discontinued Reason: Doctor's Order 200 mg PO BID 30 days 60 caps 3RF buspirone Discontinued Reason: Doctor's Order 5 mg PO BID 180 tabs 3RF
--- OUTSIDE RECORDS SUMMARY | 2024-12-14 12:27 | XMS_ITS | Clinical Summary ---
Author Organization [facility] Facility Address [address] [place] [id number] Care Team Providers Care Veterinary Poultry Inspector Name Role Phone Unavailable Primary Care Provider [...] Import Urinary incontinence 12/18/2021 Vertigo 12/18/2021 Immunizations Immunization Administration Dates Next Due Influenza Whole 06/25/2007 [...] Due Date Last Done Comments Pneumococcal Vaccine: 50+ Years (3 of 3 - PCV) 07/07/2011 07/07/2010, 10/25/2004 Diabetes: Hemoglobin A1C 10/17/2021 Diabetes: Ophthalmology Exam 10/17/2021 Diabetes: Pedal Pulse Checked 10/17/2021 Diabetes: Sensory Foot Exam 10/17/2021 Diabetes: Visual Foot Exam 10/17/2021 Influenza Vaccine (Season Ended) 2025 06/25/2007 Hepatitis B Vaccine Aged Out No longe r eligible based on patient's age to complete this topic Insurance Medicare Medicare
--- OUTSIDE RECORDS SUMMARY | 2024-12-14 12:27 | XMS_ITS | Clinical Summary ---
Author Organization [facility] it Address [id number] [place] [id number] Care Team Providers Care Fiberglass Boat Finisher Name Role Phone Ben Borges MD Primary [...] 2023-2 5 season) 2024 12/17/2021 Influenza Vaccine (Season Ended) 2025 HIB Vaccines Aged Out No longer eligi [...] age to complete this topic Meningococcal B Vaccine Aged Out No l onger eligible based on patient's age to complete this topic RSV Immunization Patients Un rory 20 months Aged Out No longer eligible b ased on patient's age to complete this topic Varicella Vaccines Aged Out No longer eligible based on patient's age to complete this topic Care Teams Fiberglass Boat Finisher Relationship Specialty Start Date End Date Ben Borges MD [address] [place] [address] PCP - General Internal Medicine 05/04/22
== END 2024-12-14 21:24 | disposition home or self-care (01) ==
LOC: HO.HMCC 10:31
PROVIDERS: PCP Internal Medicine; Visit Provider Internal Medicine
DX: R22.1 Localized swelling, mass and lump, neck (principal); E11.22 Type 2 diabetes mellitus with diabetic chronic kidney disease; I48.0 Paroxysmal atrial fibrillation; I50.30 Unspecified diastolic (congestive) heart failure; J44.89 Other specified chronic obstructive pulmonary disease; N18.30 Chronic kidney disease, stage 3 unspecified; Z98.890 Other specified postprocedural states; F41.9 Anxiety disorder, unspecified; F32.A Depression, unspecified

== ENCOUNTER → 2024-12-14 10:31 | Outpatient (BNVA) | payer MEDICARE, SELFPAY | PROVIDERS: PCP Internal Medicine; Visit Provider Internal Medicine | DX: R22.1 Localized swelling, mass and lump, neck (principal); E11.9 Type 2 diabetes mellitus without complications; I48.0 Paroxysmal atrial fibrillation; I50.30 Unspecified diastolic (congestive) heart failure; J44.89 Other specified chronic obstructive pulmonary disease; E11.22 Type 2 diabetes mellitus with diabetic chronic kidney disease; N18.30 Chronic kidney disease, stage 3 unspecified; F41.9 Anxiety disorder, unspecified; F32.A Depression, unspecified; Z98.890 Other specified postprocedural states | CPT/HCPCS: 96127; 99212 ==

== ENCOUNTER 2024-12-19 09:41 | Outpatient (REF) | payer MEDICARE, SELFPAY ==
--- NOTE | ~2024-12-19 | US_ITS ---
CLINICAL HISTORY: R22.1 - Localized swelling, mass and lump, neck Ultrasound soft tissues right supraclavicular region Comparison: None Findings: There is no mass or fluid collection. No lymphadenopathy. Impression: 1. Unremarkable visualized soft tissues. This document has been electronically signed by: Sima Dale MD on 12/20/2024 14:38:40
--- OUTSIDE RECORDS SUMMARY | 2024-12-19 10:57 | XMS_ITS | Clinical Summary ---
Author Organization [facility] Facility Address [address] [place] [id number] Care Team Providers Care Dentist Attendant Name Role Phone Unavailable Primary Care Provider [...] 10/17/2021 Influenza Vaccine (Season Ended) 2025 06/25/2007 Pneumococcal Vaccine: Peds ( 0 to 5 Years) and At-Risk Patients (6 to 49 Years) Discontinued 07/07/2010, 10/25/2004 Hepatitis B Vaccine Aged Out No longe r eligible based on patient's age to complete this topic Insurance Medicare Medicare
--- OUTSIDE RECORDS SUMMARY | 2024-12-19 10:57 | XMS_ITS | Clinical Summary ---
Author Organization [facility] it Address [id number] [place] [phone] Care Team Providers Care Qa Analyst Name Role Phone Ben Borges MD Primary [...] age to complete this topic Care Teams Qa Analyst Relationship Specialty Start Date End Date Ben Borges MD [address] [place] [address] PCP - General Internal Medicine 05/04/22
== END 2024-12-19 09:42 | disposition home or self-care (01) ==
LOC: HO.HMGCX 09:41
PROVIDERS: PCP Internal Medicine; Visit Provider Internal Medicine
DX: R22.1 Localized swelling, mass and lump, neck (principal)
CPT/HCPCS: 76536

== ENCOUNTER → 2024-12-19 09:44 | Outpatient (BNV) | payer MEDICARE, SELFPAY | PROVIDERS: PCP Internal Medicine; Visit Provider Radiology Diagnostic Radiology | DX: R22.1 Localized swelling, mass and lump, neck (principal) | CPT/HCPCS: 76536 ==

== ENCOUNTER 2025-01-12 14:49 | Emergency (ER) | payer MEDICARE, SELFPAY ==
--- NOTE | ~2025-01-12 | XR_ITS ---
EXAMINATION: XR HIP, RIGHT CLINICAL INFORMATION: Fall, right hip pain COMPARISON: None available. TECHNIQUE: AP pelvis, and Two views of the right hip. FINDINGS: No fracture, dislocation, or suspicious bone lesion. The pelvis is intact. The hip joints are intact. There are mild degenerative changes in both hip joints. The sacrum appears intact. There are moderate degenerative changes in both SI joints. There is no discrete soft tissue abnormality. XR/XR hip RT w PEL1V IMPRESSION: 1. No acute bony abnormalities of the pelvis or right hip. Electronically signed by: Bret Perez MD 01/12/2025 04:46 PM EDT
--- NOTE | ~2025-01-12 | CT_ITS ---
EXAMINATION: CT HEAD WITHOUT CONTRAST CLINICAL INFORMATION: Concern for intracranial hemorrhage. Fall, striking back of head on table, posterior hematoma, patient anticoagulated. COMPARISON: CT head 07/05/2024. TECHNIQUE: Contiguous axial imaging was performed from the skull base to vertex without intravenous administration of contrast. This CT examination was performed using dose optimization techniques as appropriate, variously including the following: *Automated exposure control *Adjustment of mA and/or kV according to patient size (this includes techniques or standardized protocols for targeted exams where dose is matched to indication/reason for exam; i.e. extremities or head) *Use of iterative reconstruction technique FINDINGS: There is no evidence of intracranial hemorrhage or extra-axial fluid collection. There is no mass effect, or edema. No CT evidence of acute territorial infarct. Ventricles, sulci, and cisterns are normal in size and configuration for patient age. No hydrocephalus. No midline shift. Negative hyperdense MCA sign. Negative insular ribbon sign. Patchy periventricular and deep white matter hypoattenuation is consistent with moderate small vessel ischemic changes. Empty sella noted. Atheromatous calcification of the bilateral carotid siphons and V4 segments vertebral arteries bilaterally. There is calcification of the anterior falx. Globes and orbital contents image normally. There are bilateral lens replacements. Extracranial soft tissues demonstrate mild soft tissue swelling of the occipital scalp. The paranasal sinuses, mastoid air cells, and tympanic cavities are normally aerated. No suspicious bony abnormalities. There are no acute fractures evident. CT/CT Head for ICH IMPRESSION: 1. No acute intracranial abnormality. No fracture evident. 2. There is mild occipital scalp soft tissue swelling. Electronically signed by: Bert Perez MD 01/12/2025 04:35 PM EDT
--- NOTE | ~2025-01-12 | CT_ITS ---
EXAMINATION: CT CERVICAL SPINE WITHOUT CONTRAST CLINICAL INFORMATION: Fall, head strike, neck pain. COMPARISON: None available. TECHNIQUE: Spiral CT imaging of the cervical spine performed in axial plane without contrast. Multiplanar reformatted images were constructed from the axial data set. This CT examination was performed using dose optimization techniques as appropriate, variously including the following: *Automated exposure control *Adjustment of mA and/or kV according to patient size (this includes techniques or standardized protocols for targeted exams where dose is matched to indication/reason for exam; i.e. extremities or head) *Use of iterative reconstruction technique FINDINGS: CORONAL ALIGNMENT: -There is a mild levoconvex scoliosis. SAGITTAL ALIGNMENT: -Normal cervical lordosis. -No evidence of traumatic subluxation. -2 mm degenerative anterolisthesis of C7 on T1. C1-C2 AND CRANIOCERVICAL JUNCTION: -Intact and normally aligned. VERTEBRAL BODIES AND FACETS: -There has been anterior fusion of C5-C7 with plate and screw fixation. There is bony fusion through the disc spaces. There is no hardware loosening or failure. -There is no fracture, compression deformity, or suspicious bone lesion. There is no traumatic subluxation. -Facets are normally aligned with multilevel hypertrophic degenerative facet changes bilaterally. -There are large ventral vertebral/disc osteophytes spanning C4-C5. DISCS: -Fusion of the disc spaces C5-C7. -Moderate disc degeneration C4-5, and C7-T1. -Mild disc degeneration C2-3 and C3-4. CENTRAL CANAL: -No evidence of high-grade central canal narrowing or large disc herniation allowing for modality limitations. PREVERTEBRAL AND PARAVERTEBRAL SOFT TISSUES: -No paravertebral or prevertebral soft tissue swelling or edema. LUNG APICES: -There are consolidative and groundglass opacities in the imaged left upper lobe, highly suspicious for pneumonia. CT/CT cervical spine wo IV con IMPRESSION: 1. No CT evidence of acute cervical spine fracture or injury. 2. Prior anterior fusion of C5 C7 without complication. 3. Moderate diffuse spondylosis. 4. Consolidative and groundglass opacities in the imaged left upper lobe, highly suspicious for pneumonia. Electronically signed by: Bret Perez MD 01/12/2025 04:45 PM EDT
--- NOTE | 2025-01-12 15:11 | ED_ITS ---
HPI - Fall General Chief Complaint: Head Injury Stated Complaint: Fall- Hit Back of Head- Lump on Head, Dizziness Time Seen by Provider: 01/12/25 15:21 Source: patient and family (Rachana) Mode of arrival: ambulatory Limitations: no limitations History of Present Illness ED Provider: Dr. Orestes Coronel HPI Narrative: 74-year-old female with a history of hypertension, DVTs on Eliquis, congestive heart failure, aortic stenosis, paroxysmal atrial fibrillation, congestive heart failure preserved ejection fraction, asthma, COPD, ALYSIA, kidney disease, who presents emergency department for evaluation trip and fall with head injury. Patient states that she was in her kitchen, turned, her foot caught causing her to fall. She struck the back of her head on the kitchen island. She also struck her right side on the floor. She had no loss of consciousness. The injury occurred 1 hour prior to coming to the emergency department. Here in the emergency department she is complaining of right-sided headache located behind her eye which is a pounding sensation in his 7/10. There is no associated nausea, vomiting or weakness. She is also complaining of neck pain, right arm and right hip pain. She was brought to emergency department by her daughter, Rachana who is here in the emergency department with her. Related Data Home Medications ?Medication ?Instructions ?Recorded ?Confirmed cholecalciferol (vitamin D3) 25 25 mcg PO DAILY 08/11/23 12/14/24 mcg (1,000 unit) tablet loratadine 10 mg tablet 10 mg PO DAILY PRN Allergy Symptoms 08/11/23 12/14/24 atorvastatin 80 mg tablet 80 mg PO BEDTIME 11/28/23 12/14/24 albuterol sulfate 90 mcg/actuation 2 puff inhalation QID PRN 05/17/24 12/14/24 aerosol inhaler SOB/wheezing budesonide-formoterol HFA 160 2 puff inhalation BID PRN SOB 05/17/24 12/14/24 mcg-4.5 mcg/actuation aerosol inhaler (Symbicort) citalopram 20 mg tablet 20 mg PO DAILY 05/17/24 12/14/24 simethicone 80 mg chewable tablet 80 mg PO QID PRN gas 07/06/24 12/14/24 sennosides 8.6 mg-docusate sodium 2 tab PO BID PRN 11/08/24 12/14/24 50 mg tablet (Stimulant Laxative Plus) Previous Rx's ?Medication ?Instructions ?Recorded walker #1 ea 02/28/23 acetaminophen 325 mg tablet 650 mg (2 x 325 mg) PO Q6H PRN 08/22/23 pain #30 tabs docusate sodium 100 mg capsule 100 mg PO BID PRN Constipation #30 08/22/23 caps ipratropium 0.5 mg-albuterol 3 mg 3 ml inhalation Q8H PRN wheezing 12/29/23 (2.5 mg base)/3 mL nebulization #180 mL soln compr.stocking,thigh,reg,large #2 ea 02/08/24 blood sugar diagnostic (OneTouch #100 ea 03/06/24 Verio test strips) blood-glucose meter (OneTouch #1 ea 03/06/24 Verio Flex Meter) lancets 30 gauge (OneTouch Delica #100 ea 03/06/24 Plus Lancet) insulin lispro 100 unit/mL 1 sliding scale dose subcut 06/08/24 subcutaneous pen (Humalog KwikPen USEASDIRECTD #15 mL (U-100) Insulin) insulin glargine 100 unit/mL (3 25 unit (0.25 mL) subcut BEDTIME 07/09/24 mL) subcutaneous pen (Lantus #15 mL Solostar U-100 Insulin) montelukast 10 mg tablet 10 mg PO BEDTIME ASTHMA/COPD 30 08/15/24 days #30 tabs ipratropium 0.5 mg-albuterol 3 mg 3 ml inhalation Q6H PRN wheezing 11/16/24 (2.5 mg base)/3 mL nebulization 30 days #180 mL soln empagliflozin 25 mg tablet 25 mg PO DAILY #90 tabs 11/19/24 (Jardiance) furosemide 20 mg tablet 20 mg PO DAILY #90 tabs 11/20/24 Ozempic 2 mg/dose (8 mg/3 mL) 2 mg (0.75 mL) subcut MCWILLIAMS #3 mL 11/29/24 subcutaneous pen injector (semaglutide) apixaban 5 mg tablet (Eliquis) 5 mg PO BID #180 tabs 12/14/24 buspirone 10 mg tablet 10 mg PO BID #180 tabs 12/14/24 carvedilol 6.25 mg tablet 6.25 mg PO BID 90 days #180 tabs 12/14/24 pantoprazole 40 mg tablet,delayed 40 mg PO .qd #90 tabs 12/14/24 release flash glucose sensor (FreeStyle #6 ea 12/26/24 Kelly 2 Sensor kit) diltiazem HCl 300 mg capsule,24 300 mg PO DAILY #90 caps 01/09/25 hr,extended release Allergies Allergy/AdvReac Type Severity Reaction Status Date / Time Latex, Natural Rubber Allergy Severe blisters Verified 01/12/25 15:22 Sulfa (Sulfonamide Allergy Mild ITCHING, Verified 01/12/25 15:22 Antibiotics) rash [SULFA (SULFONAMIDE ANTIBIOTICS)] nystatin Allergy Unknown rash Verified 01/12/25 15:22 isosorbide [From Imdur] AdvReac Unknown HEADACHES, Verified 01/12/25 15:22 headache tizanidine AdvReac Unknown weakness, Verified 01/12/25 15:22 Hellucination Review of Systems 2 Review of Systems: Yes all other systems are reviewed and are negative [facility] Past Medical History [facility] Narrative: Social history: The patient denies tobacco use. She drinks alcohol once or twice a month in moderation. She denies drug use. 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 Father No problems noted. Brother Substance use disorder Brother Substance use disorder Social History Social History Household Members: Family Household Members Other:: 2 Housing: House Do you presently have visiting nurse or other home services: No Alcohol intake: former Patient Tobacco Use Status: Former Tobacco user Tobacco use type: Cigarette Cigarettes Per Day: 10 Years Smoked: 3 e-Cigarette/Vaping Use: Never Used Second Hand Smoke Exposure: No Advance Directives: Yes Advance Directives on File: Yes Advance Directives Date on File: 06/29/23 service: No Current occupational status: retired Cognitive needs: No Hearing needs: No Vision needs: No Physical Exam 2 Vital Signs: Vital Signs: Last Vital Signs Temp 98.4 F 01/12/25 18:07 Pulse 82 01/12/25 18:07 Resp 18 01/12/25 18:07 BP 174/54 H 01/12/25 18:07 Pulse Ox 96 01/12/25 18:07 O2 Del Method Room Air 01/12/25 18:07 BMI result Body Mass Index 33.3 Vital signs revealed an elevated blood pressure of 197/83 Exam: General: Awake, alert in no distress Head: Normocephalic, patient has a 2 x 2 cm left occipital hematoma which is tender to palpation EENT: PERRL, Lids normal, sclera normal, conjunctiva normal, nose normal , ears normal, throat without erythema or exudates Neck: Patient has tenderness palpation of her cervical spine with no localizing point tenderness, she also has tenderness palpation of her trapezius muscles bilaterally Lung: breath sounds symmetric, no wheezing, rales or rhonchi Chest: symmetric movement, nontender Heart: regular rate and rhythm, normal S1, S2 no murmurs or rubs Abdomen: soft, non-tender, nondistended, normal bowel sounds Back: no vertebral tenderness, no CVAT Extremities: no deformities, patient has difficulty moving her right leg secondary to right hip pain, does have tenderness palpation over her right lateral hip and pain with minimal movement of the right hip Neuro: Awake, alert, oriented, normal speech, cranial nerves intact, moves all extremities symmetrically Psych: Pleasant, cooperative Course Course Course Narrative: This is an RME performed by Marina Hi CNP: Additional HPI, ROS, PE not included below will be deferred to primary provider. 74 yo female with PMHx of T2DM, CKD 3, HLD, COPD, HTN, anemia, on AC due to chronic pulmonary embolisms, presents to ED due to mechanical fall. Daughter states patient was attempting to stand up from chair and caught her foot on the leg of chair and fell backwards hitting her head on metal clip of island counter in kitchen. States she is currently feeling dizzy. Daughter states she is not acting like her normal self and has been repeating questions. Denies nausea, vomiting, LOC PE: in wheel chair, unsteady gait, Plan:Ct head/c-spine, labs Medications Administered Discontinued Medications Generic Name Dose Route Start Last Admin Trade Name Freq PRN Reason Stop Dose Admin Acetaminophen 975 mg 01/12/25 18:33 01/12/25 18:44 Acetaminophen 325 Mg Tablet PO 01/12/25 18:34 975 mg ONCE STA Administration Morphine Sulfate 4 mg 01/12/25 15:35 01/12/25 16:23 Morphine Sulfate 4 Mg/Ml Cartridge IVPUSH 01/12/25 15:36 4 mg ONCE STA Administration Protocol Morphine Sulfate 4 mg 01/12/25 18:32 01/12/25 18:43 Morphine Sulfate 4 Mg/Ml Cartridge IVPUSH 01/12/25 18:33 4 mg ONCE STA Administration Protocol Ondansetron HCl 4 mg 01/12/25 15:35 01/12/25 16:23 Ondansetron Hcl 4 Mg/2 Ml Vial IVPUSH 01/12/25 15:36 4 mg ONCE ONE Administration Medical Decision Making Medical Decision Making MDM Narrative: 74-year-old female with a history of hypertension, DVTs on Eliquis, congestive heart failure, aortic stenosis, paroxysmal atrial fibrillation, congestive heart failure preserved ejection fraction, asthma, COPD, ALYSIA, kidney disease, who presents emergency department for evaluation trip and fall with head injury. Patient states that she was in her kitchen, turned, her foot caught causing her to fall. She struck the back of her head on the kitchen island. She also struck her right side on the floor. She had no loss of consciousness. The injury occurred 1 hour prior to coming to the emergency department. Here in the emergency department she is complaining of right-sided headache located behind her eye which is a pounding sensation in his 7/10. There is no associated nausea, vomiting or weakness. She is also complaining of neck pain, right arm and right hip pain. She was brought to emergency department by her daughter, Rachana who is here in the emergency department with her. Vital signs revealed an elevated blood pressure. Physical examination did reveal a left occipital hematoma, cervical spine tenderness and right hip tenderness with increased pain with minimal movement of the right hip. Differential diagnosis: ?Includes but is not limited to closed head injury, concussion, skull fracture, intracranial bleed, neck contusion, neck sprain/strain, cervical spine fracture, right hip contusion, right hip fracture, anemia, electrolyte abnormalities Course: 15:41 Given the patient's presentation physical findings I am concerned that she is at high-risk for skull fracture and intracranial bleed therefore CT scan of the head and cervical spine were ordered under the intracranial hemorrhage protocol. I also ordered laboratory evaluation on the patient as well. The patient headache, neck pain and hip pain will be treated with morphine 4 mg IV and Zofran 4 mg IV. 18:21 My independent interpretation patient's laboratory evaluation as follows: Microcytic anemia with an H&H of 11.4 and 36.2 with a MCV of 79.9-chronic. Coags were normal. BUN elevated 34 with a creatinine of 1.34-chronic. Glucose elevated 258. Alk-phos elevated 135. The patient's CT scan of her head and neck did not reveal any acute abnormalities. The patient did have an incidental lung finding but I do not think that she has pneumonia since she is asymptomatic and I did discuss this with the patient and the patient's daughter. The patient did get initial improvement with the IV morphine but required a 2nd dose of morphine 4 mg IV. Patient was also given Tylenol 975 mg orally 20:19 Patient is feeling better after the above treatment and was discharged home with printed and verbal instructions on closed head injury and scalp contusion. She was advised to take Tylenol for her pain and apply ice to the scalp hematoma. Admission/Observation Consideration of admission/observation: Escalation of care including admission/observation considered (Yes) Lab Data MDM Lab Attestation statement: I reviewed the patient's lab results. 01/12/25 15:47 01/12/25 15:47 Labs: Lab Results 01/12/25 01/12/25 01/12/25 Range/Units 15:47 15:47 15:47 WBC 9.6 9.1 (4.8-10.8) X10*3/uL RBC 4.57 4.53 (4.20-5.50) X10*6/uL Hgb 11.3 L (12.0-16.0) g/dl Hct (37.0-47.0) % MCV (80.0-98.0) fL MCH (27.0-33.0) pg MCHC (31.0-35.0) g/dl RDW (11.0-16.0) % Plt Count (160-400) X10*3/uL MPV (9.4-12.3) fL Immature Gran % (Auto) (0.0-0.4) % Neut % (Auto) (45-73) % Lymph % (Auto) (20-40) % Kings % (Auto) (2-11) % Eos % (Auto) (0-4) % Baso % (Auto) (0-2) % Lymph # (Auto) (1.2-4.9) X10*3/uL Kings # (Auto) (0.1-1.2) X10*3/uL Eos # (Auto) (0.0-0.4) X10*3/uL Baso # (Auto) (0.0-0.2) X10*3/uL Abs Immat Gran (auto) (0.00-0.03) X10*3/uL Absolute Neuts (auto) (2.0-8.3) x10*3/uL Absolute Nucleated RBC (0.0-0.012) X10*3/uL Nucleated RBC % (auto) (0.0-0.2) /100WBC PT (10.9-12.4) SEC INR (0.9-1.1) APTT (26.0-36.8) SEC Sodium (135-145) mmol/L Potassium (3.3-5.1) mmol/L Chloride (96-108) mmol/L Carbon Dioxide (22-29) mmol/L Anion Gap (12-20) BUN (9-16) mg/dL Creatinine (0.5-1.4) mg/dL Estim Creat Clear Calc Estimated GFR Random Glucose (60-115) mg/dL Calcium (8.4-10.2) mg/dL Total Bilirubin (0.0-1.0) mg/dL AST (5-31) U/L ALT (0-31) U/L Alkaline Phosphatase (39-117) U/L Total Protein (6.5-8.0) g/dL Albumin (3.5-5.0) g/dL Blood Type Antibody Screen 01/12/25 01/12/25 01/12/25 Range/Units 15:47 15:47 15:47 WBC (4.8-10.8) X10*3/uL RBC (4.20-5.50) X10*6/uL Hgb 11.4 L (12.0-16.0) g/dl Hct 36.4 L 36.2 L (37.0-47.0) % MCV 79.6 L 79.9 L (80.0-98.0) fL MCH 24.7 L (27.0-33.0) pg MCHC (31.0-35.0) g/dl RDW (11.0-16.0) % Plt Count (160-400) X10*3/uL MPV (9.4-12.3) fL Immature Gran % (Auto) (0.0-0.4) % Neut % (Auto) (45-73) % Lymph % (Auto) (20-40) % Kings % (Auto) (2-11) % Eos % (Auto) (0-4) % Baso % (Auto) (0-2) % Lymph # (Auto) (1.2-4.9) X10*3/uL Kings # (Auto) (0.1-1.2) X10*3/uL Eos # (Auto) (0.0-0.4) X10*3/uL Baso # (Auto) (0.0-0.2) X10*3/uL Abs Immat Gran (auto) (0.00-0.03) X10*3/uL Absolute Neuts (auto) (2.0-8.3) x10*3/uL Absolute Nucleated RBC (0.0-0.012) X10*3/uL Nucleated RBC % (auto) (0.0-0.2) /100WBC PT (10.9-12.4) SEC INR (0.9-1.1) APTT (26.0-36.8) SEC Sodium (135-145) mmol/L Potassium (3.3-5.1) mmol/L Chloride (96-108) mmol/L Carbon Dioxide (22-29) mmol/L Anion Gap (12-20) BUN (9-16) mg/dL Creatinine (0.5-1.4) mg/dL Estim Creat Clear Calc Estimated GFR Random Glucose (60-115) mg/dL Calcium (8.4-10.2) mg/dL Total Bilirubin (0.0-1.0) mg/dL AST (5-31) U/L ALT (0-31) U/L Alkaline Phosphatase (39-117) U/L Total Protein (6.5-8.0) g/dL Albumin (3.5-5.0) g/dL Blood Type Antibody Screen 01/12/25 01/12/25 01/12/25 Range/Units 15:47 15:47 15:47 WBC (4.8-10.8) X10*3/uL RBC (4.20-5.50) X10*6/uL Hgb (12.0-16.0) g/dl Hct (37.0-47.0) % MCV (80.0-98.0) fL MCH 25.2 L (27.0-33.0) pg MCHC 31.0 31.5 (31.0-35.0) g/dl RDW 17.7 H 17.8 H (11.0-16.0) % Plt Count 249 (160-400) X10*3/uL MPV (9.4-12.3) fL Immature Gran % (Auto) (0.0-0.4) % Neut % (Auto) (45-73) % Lymph % (Auto) (20-40) % Kings % (Auto) (2-11) % Eos % (Auto) (0-4) % Baso % (Auto) (0-2) % Lymph # (Auto) (1.2-4.9) X10*3/uL Kings # (Auto) (0.1-1.2) X10*3/uL Eos # (Auto) (0.0-0.4) X10*3/uL Baso # (Auto) (0.0-0.2) X10*3/uL Abs Immat Gran (auto) (0.00-0.03) X10*3/uL Absolute Neuts (auto) (2.0-8.3) x10*3/uL Absolute Nucleated RBC (0.0-0.012) X10*3/uL Nucleated RBC % (auto) (0.0-0.2) /100WBC PT (10.9-12.4) SEC INR (0.9-1.1) APTT (26.0-36.8) SEC Sodium (135-145) mmol/L Potassium (3.3-5.1) mmol/L Chloride (96-108) mmol/L Carbon Dioxide (22-29) mmol/L Anion Gap (12-20) BUN (9-16) mg/dL Creatinine (0.5-1.4) mg/dL Estim Creat Clear Calc Estimated GFR Random Glucose (60-115) mg/dL Calcium (8.4-10.2) mg/dL Total Bilirubin (0.0-1.0) mg/dL AST (5-31) U/L ALT (0-31) U/L Alkaline Phosphatase (39-117) U/L Total Protein (6.5-8.0) g/dL Albumin (3.5-5.0) g/dL Blood Type Antibody Screen 01/12/25 01/12/25 01/12/25 Range/Units 15:47 15:47 15:47 WBC (4.8-10.8) X10*3/uL RBC (4.20-5.50) X10*6/uL Hgb (12.0-16.0) g/dl Hct (37.0-47.0) % MCV (80.0-98.0) fL MCH (27.0-33.0) pg MCHC (31.0-35.0) g/dl RDW (11.0-16.0) % Plt Count 260 (160-400) X10*3/uL MPV 9.9 9.8 (9.4-12.3) fL Immature Gran % (Auto) 0.4 0.3 (0.0-0.4) % Neut % (Auto) 67.5 (45-73) % Lymph % (Auto) (20-40) % Kings % (Auto) (2-11) % Eos % (Auto) (0-4) % Baso % (Auto) (0-2) % Lymph # (Auto) (1.2-4.9) X10*3/uL Kings # (Auto) (0.1-1.2) X10*3/uL Eos # (Auto) (0.0-0.4) X10*3/uL Baso # (Auto) (0.0-0.2) X10*3/uL Abs Immat Gran (auto) (0.00-0.03) X10*3/uL Absolute Neuts (auto) (2.0-8.3) x10*3/uL Absolute Nucleated RBC (0.0-0.012) X10*3/uL Nucleated RBC % (auto) (0.0-0.2) /100WBC PT (10.9-12.4) SEC INR (0.9-1.1) APTT (26.0-36.8) SEC Sodium (135-145) mmol/L Potassium (3.3-5.1) mmol/L Chloride (96-108) mmol/L Carbon Dioxide (22-29) mmol/L Anion Gap (12-20) BUN (9-16) mg/dL Creatinine (0.5-1.4) mg/dL Estim Creat Clear Calc Estimated GFR Random Glucose (60-115) mg/dL Calcium (8.4-10.2) mg/dL Total Bilirubin (0.0-1.0) mg/dL AST (5-31) U/L ALT (0-31) U/L Alkaline Phosphatase (39-117) U/L Total Protein (6.5-8.0) g/dL Albumin (3.5-5.0) g/dL Blood Type Antibody Screen 01/12/25 01/12/25 01/12/25 Range/Units 15:47 15:47 15:47 WBC (4.8-10.8) X10*3/uL RBC (4.20-5.50) X10*6/uL Hgb (12.0-16.0) g/dl Hct (37.0-47.0) % MCV (80.0-98.0) fL MCH (27.0-33.0) pg MCHC (31.0-35.0) g/dl RDW (11.0-16.0) % Plt Count (160-400) X10*3/uL MPV (9.4-12.3) fL Immature Gran % (Auto) (0.0-0.4) % Neut % (Auto) 68.8 (45-73) % Lymph % (Auto) 18.7 L 18.1 L (20-40) % Kings % (Auto) 8.4 7.8 (2-11) % Eos % (Auto) 4.2 H (0-4) % Baso % (Auto) (0-2) % Lymph # (Auto) (1.2-4.9) X10*3/uL Kings # (Auto) (0.1-1.2) X10*3/uL Eos # (Auto) (0.0-0.4) X10*3/uL Baso # (Auto) (0.0-0.2) X10*3/uL Abs Immat Gran (auto) (0.00-0.03) X10*3/uL Absolute Neuts (auto) (2.0-8.3) x10*3/uL Absolute Nucleated RBC (0.0-0.012) X10*3/uL Nucleated RBC % (auto) (0.0-0.2) /100WBC PT (10.9-12.4) SEC INR (0.9-1.1) APTT (26.0-36.8) SEC Sodium (135-145) mmol/L Potassium (3.3-5.1) mmol/L Chloride (96-108) mmol/L Carbon Dioxide (22-29) mmol/L Anion Gap (12-20) BUN (9-16) mg/dL Creatinine (0.5-1.4) mg/dL Estim Creat Clear Calc Estimated GFR Random Glucose (60-115) mg/dL Calcium (8.4-10.2) mg/dL Total Bilirubin (0.0-1.0) mg/dL AST (5-31) U/L ALT (0-31) U/L Alkaline Phosphatase (39-117) U/L Total Protein (6.5-8.0) g/dL Albumin (3.5-5.0) g/dL Blood Type Antibody Screen 01/12/25 01/12/25 01/12/25 Range/Units 15:47 15:47 15:47 WBC (4.8-10.8) X10*3/uL RBC (4.20-5.50) X10*6/uL Hgb (12.0-16.0) g/dl Hct (37.0-47.0) % MCV (80.0-98.0) fL MCH (27.0-33.0) pg MCHC (31.0-35.0) g/dl RDW (11.0-16.0) % Plt Count (160-400) X10*3/uL MPV (9.4-12.3) fL Immature Gran % (Auto) (0.0-0.4) % Neut % (Auto) (45-73) % Lymph % (Auto) (20-40) % Kings % (Auto) (2-11) % Eos % (Auto) 4.1 H (0-4) % Baso % (Auto) 0.8 0.9 (0-2) % Lymph # (Auto) 1.8 1.7 (1.2-4.9) X10*3/uL Kings # (Auto) 0.8 (0.1-1.2) X10*3/uL Eos # (Auto) (0.0-0.4) X10*3/uL Baso # (Auto) (0.0-0.2) X10*3/uL Abs Immat Gran (auto) (0.00-0.03) X10*3/uL Absolute Neuts (auto) (2.0-8.3) x10*3/uL Absolute Nucleated RBC (0.0-0.012) X10*3/uL Nucleated RBC % (auto) (0.0-0.2) /100WBC PT (10.9-12.4) SEC INR (0.9-1.1) APTT (26.0-36.8) SEC Sodium (135-145) mmol/L Potassium (3.3-5.1) mmol/L Chloride (96-108) mmol/L Carbon Dioxide (22-29) mmol/L Anion Gap (12-20) BUN (9-16) mg/dL Creatinine (0.5-1.4) mg/dL Estim Creat Clear Calc Estimated GFR Random Glucose (60-115) mg/dL Calcium (8.4-10.2) mg/dL Total Bilirubin (0.0-1.0) mg/dL AST (5-31) U/L ALT (0-31) U/L Alkaline Phosphatase (39-117) U/L Total Protein (6.5-8.0) g/dL Albumin (3.5-5.0) g/dL Blood Type Antibody Screen 01/12/25 01/12/25 01/12/25 Range/Units 15:47 15:47 15:47 WBC (4.8-10.8) X10*3/uL RBC (4.20-5.50) X10*6/uL Hgb (12.0-16.0) g/dl Hct (37.0-47.0) % MCV (80.0-98.0) fL MCH (27.0-33.0) pg MCHC (31.0-35.0) g/dl RDW (11.0-16.0) % Plt Count (160-400) X10*3/uL MPV (9.4-12.3) fL Immature Gran % (Auto) (0.0-0.4) % Neut % (Auto) (45-73) % Lymph % (Auto) (20-40) % Kings % (Auto) (2-11) % Eos % (Auto) (0-4) % Baso % (Auto) (0-2) % Lymph # (Auto) (1.2-4.9) X10*3/uL Kings # (Auto) 0.7 (0.1-1.2) X10*3/uL Eos # (Auto) 0.4 0.4 (0.0-0.4) X10*3/uL Baso # (Auto) 0.1 0.1 (0.0-0.2) X10*3/uL Abs Immat Gran (auto) 0.04 H (0.00-0.03) X10*3/uL Absolute Neuts (auto) (2.0-8.3) x10*3/uL Absolute Nucleated RBC (0.0-0.012) X10*3/uL Nucleated RBC % (auto) (0.0-0.2) /100WBC PT (10.9-12.4) SEC INR (0.9-1.1) APTT (26.0-36.8) SEC Sodium (135-145) mmol/L Potassium (3.3-5.1) mmol/L Chloride (96-108) mmol/L Carbon Dioxide (22-29) mmol/L Anion Gap (12-20) BUN (9-16) mg/dL Creatinine (0.5-1.4) mg/dL Estim Creat Clear Calc Estimated GFR Random Glucose (60-115) mg/dL Calcium (8.4-10.2) mg/dL Total Bilirubin (0.0-1.0) mg/dL AST (5-31) U/L ALT (0-31) U/L Alkaline Phosphatase (39-117) U/L Total Protein (6.5-8.0) g/dL Albumin (3.5-5.0) g/dL Blood Type Antibody Screen 01/12/25 01/12/25 01/12/25 Range/Units 15:47 15:47 15:47 WBC (4.8-10.8) X10*3/uL RBC (4.20-5.50) X10*6/uL Hgb (12.0-16.0) g/dl Hct (37.0-47.0) % MCV (80.0-98.0) fL MCH (27.0-33.0) pg MCHC (31.0-35.0) g/dl RDW (11.0-16.0) % Plt Count (160-400) X10*3/uL MPV (9.4-12.3) fL Immature Gran % (Auto) (0.0-0.4) % Neut % (Auto) (45-73) % Lymph % (Auto) (20-40) % Kings % (Auto) (2-11) % Eos % (Auto) (0-4) % Baso % (Auto) (0-2) % Lymph # (Auto) (1.2-4.9) X10*3/uL Kings # (Auto) (0.1-1.2) X10*3/uL Eos # (Auto) (0.0-0.4) X10*3/uL Baso # (Auto) (0.0-0.2) X10*3/uL Abs Immat Gran (auto) 0.03 (0.00-0.03) X10*3/uL Absolute Neuts (auto) 6.5 6.3 (2.0-8.3) x10*3/uL Absolute Nucleated RBC 0.000 0.000 (0.0-0.012) X10*3/uL Nucleated RBC % (auto) 0.0 (0.0-0.2) /100WBC PT (10.9-12.4) SEC INR (0.9-1.1) APTT (26.0-36.8) SEC Sodium (135-145) mmol/L Potassium (3.3-5.1) mmol/L Chloride (96-108) mmol/L Carbon Dioxide (22-29) mmol/L Anion Gap (12-20) BUN (9-16) mg/dL Creatinine (0.5-1.4) mg/dL Estim Creat Clear Calc Estimated GFR Random Glucose (60-115) mg/dL Calcium (8.4-10.2) mg/dL Total Bilirubin (0.0-1.0) mg/dL AST (5-31) U/L ALT (0-31) U/L Alkaline Phosphatase (39-117) U/L Total Protein (6.5-8.0) g/dL Albumin (3.5-5.0) g/dL Blood Type Antibody Screen 01/12/25 01/12/25 01/12/25 Range/Units 15:47 15:47 15:47 WBC (4.8-10.8) X10*3/uL RBC (4.20-5.50) X10*6/uL Hgb (12.0-16.0) g/dl Hct (37.0-47.0) % MCV (80.0-98.0) fL MCH (27.0-33.0) pg MCHC (31.0-35.0) g/dl RDW (11.0-16.0) % Plt Count (160-400) X10*3/uL MPV (9.4-12.3) fL Immature Gran % (Auto) (0.0-0.4) % Neut % (Auto) (45-73) % Lymph % (Auto) (20-40) % Kings % (Auto) (2-11) % Eos % (Auto) (0-4) % Baso % (Auto) (0-2) % Lymph # (Auto) (1.2-4.9) X10*3/uL Kings # (Auto) (0.1-1.2) X10*3/uL Eos # (Auto) (0.0-0.4) X10*3/uL Baso # (Auto) (0.0-0.2) X10*3/uL Abs Immat Gran (auto) (0.00-0.03) X10*3/uL Absolute Neuts (auto) (2.0-8.3) x10*3/uL Absolute Nucleated RBC (0.0-0.012) X10*3/uL Nucleated RBC % (auto) 0.0 (0.0-0.2) /100WBC PT 12.3 (10.9-12.4) SEC INR 1.1 (0.9-1.1) APTT 34.4 (26.0-36.8) SEC Sodium 138 138 (135-145) mmol/L Potassium 3.6 3.6 (3.3-5.1) mmol/L Chloride 106 (96-108) mmol/L Carbon Dioxide (22-29) mmol/L Anion Gap (12-20) BUN (9-16) mg/dL Creatinine (0.5-1.4) mg/dL Estim Creat Clear Calc Estimated GFR Random Glucose (60-115) mg/dL Calcium (8.4-10.2) mg/dL Total Bilirubin (0.0-1.0) mg/dL AST (5-31) U/L ALT (0-31) U/L Alkaline Phosphatase (39-117) U/L Total Protein (6.5-8.0) g/dL Albumin (3.5-5.0) g/dL Blood Type Antibody Screen 01/12/25 01/12/25 01/12/25 Range/Units 15:47 15:47 15:47 WBC (4.8-10.8) X10*3/uL RBC (4.20-5.50) X10*6/uL Hgb (12.0-16.0) g/dl Hct (37.0-47.0) % MCV (80.0-98.0) fL MCH (27.0-33.0) pg MCHC (31.0-35.0) g/dl RDW (11.0-16.0) % Plt Count (160-400) X10*3/uL MPV (9.4-12.3) fL Immature Gran % (Auto) (0.0-0.4) % Neut % (Auto) (45-73) % Lymph % (Auto) (20-40) % Kings % (Auto) (2-11) % Eos % (Auto) (0-4) % Baso % (Auto) (0-2) % Lymph # (Auto) (1.2-4.9) X10*3/uL Kings # (Auto) (0.1-1.2) X10*3/uL Eos # (Auto) (0.0-0.4) X10*3/uL Baso # (Auto) (0.0-0.2) X10*3/uL Abs Immat Gran (auto) (0.00-0.03) X10*3/uL Absolute Neuts (auto) (2.0-8.3) x10*3/uL Absolute Nucleated RBC (0.0-0.012) X10*3/uL Nucleated RBC % (auto) (0.0-0.2) /100WBC PT (10.9-12.4) SEC INR (0.9-1.1) APTT (26.0-36.8) SEC Sodium (135-145) mmol/L Potassium (3.3-5.1) mmol/L Chloride 105 (96-108) mmol/L Carbon Dioxide 22 22 (22-29) mmol/L Anion Gap 14 15 (12-20) BUN 34 H (9-16) mg/dL Creatinine (0.5-1.4) mg/dL Estim Creat Clear Calc Estimated GFR Random Glucose (60-115) mg/dL Calcium (8.4-10.2) mg/dL Total Bilirubin (0.0-1.0) mg/dL AST (5-31) U/L ALT (0-31) U/L Alkaline Phosphatase (39-117) U/L Total Protein (6.5-8.0) g/dL Albumin (3.5-5.0) g/dL Blood Type Antibody Screen 01/12/25 01/12/25 01/12/25 Range/Units 15:47 15:47 15:47 WBC (4.8-10.8) X10*3/uL RBC (4.20-5.50) X10*6/uL Hgb (12.0-16.0) g/dl Hct (37.0-47.0) % MCV (80.0-98.0) fL MCH (27.0-33.0) pg MCHC (31.0-35.0) g/dl RDW (11.0-16.0) % Plt Count (160-400) X10*3/uL MPV (9.4-12.3) fL Immature Gran % (Auto) (0.0-0.4) % Neut % (Auto) (45-73) % Lymph % (Auto) (20-40) % Kings % (Auto) (2-11) % Eos % (Auto) (0-4) % Baso % (Auto) (0-2) % Lymph # (Auto) (1.2-4.9) X10*3/uL Kings # (Auto) (0.1-1.2) X10*3/uL Eos # (Auto) (0.0-0.4) X10*3/uL Baso # (Auto) (0.0-0.2) X10*3/uL Abs Immat Gran (auto) (0.00-0.03) X10*3/uL Absolute Neuts (auto) (2.0-8.3) x10*3/uL Absolute Nucleated RBC (0.0-0.012) X10*3/uL Nucleated RBC % (auto) (0.0-0.2) /100WBC PT (10.9-12.4) SEC INR (0.9-1.1) APTT (26.0-36.8) SEC Sodium (135-145) mmol/L Potassium (3.3-5.1) mmol/L Chloride (96-108) mmol/L Carbon Dioxide (22-29) mmol/L Anion Gap (12-20) BUN 34 H (9-16) mg/dL Creatinine 1.34 1.34 (0.5-1.4) mg/dL Estim Creat Clear Calc 38.3 38.3 Estimated GFR 38 Random Glucose (60-115) mg/dL Calcium (8.4-10.2) mg/dL Total Bilirubin (0.0-1.0) mg/dL AST (5-31) U/L ALT (0-31) U/L Alkaline Phosphatase (39-117) U/L Total Protein (6.5-8.0) g/dL Albumin (3.5-5.0) g/dL Blood Type Antibody Screen 01/12/25 01/12/25 01/12/25 Range/Units 15:47 15:47 15:47 WBC (4.8-10.8) X10*3/uL RBC (4.20-5.50) X10*6/uL Hgb (12.0-16.0) g/dl Hct (37.0-47.0) % MCV (80.0-98.0) fL MCH (27.0-33.0) pg MCHC (31.0-35.0) g/dl RDW (11.0-16.0) % Plt Count (160-400) X10*3/uL MPV (9.4-12.3) fL Immature Gran % (Auto) (0.0-0.4) % Neut % (Auto) (45-73) % Lymph % (Auto) (20-40) % Kings % (Auto) (2-11) % Eos % (Auto) (0-4) % Baso % (Auto) (0-2) % Lymph # (Auto) (1.2-4.9) X10*3/uL Kings # (Auto) (0.1-1.2) X10*3/uL Eos # (Auto) (0.0-0.4) X10*3/uL Baso # (Auto) (0.0-0.2) X10*3/uL Abs Immat Gran (auto) (0.00-0.03) X10*3/uL Absolute Neuts (auto) (2.0-8.3) x10*3/uL Absolute Nucleated RBC (0.0-0.012) X10*3/uL Nucleated RBC % (auto) (0.0-0.2) /100WBC PT (10.9-12.4) SEC INR (0.9-1.1) APTT (26.0-36.8) SEC Sodium (135-145) mmol/L Potassium (3.3-5.1) mmol/L Chloride (96-108) mmol/L Carbon Dioxide (22-29) mmol/L Anion Gap (12-20) BUN (9-16) mg/dL Creatinine (0.5-1.4) mg/dL Estim Creat Clear Calc Estimated GFR 38 Random Glucose 256 H 258 H (60-115) mg/dL Calcium 8.8 8.7 (8.4-10.2) mg/dL Total Bilirubin 0.2 (0.0-1.0) mg/dL AST 21 (5-31) U/L ALT 15 (0-31) U/L Alkaline Phosphatase 135 H (39-117) U/L Total Protein 6.8 (6.5-8.0) g/dL Albumin 3.7 (3.5-5.0) g/dL Blood Type A Positive Antibody Screen NEGATIVE Radiology Impression Discussion of test interpretation with radiology: I have reviewed the radiologist's reading. Radiologist Impression: CT Head for ICH IMPRESSION: 1. No acute intracranial abnormality. No fracture evident. 2. There is mild occipital scalp soft tissue swelling. Electronically signed by: Bret Perez MD 01/12/2025 04:[address] cervical spine wo IV con IMPRESSION: 1. No CT evidence of acute cervical spine fracture or injury. 2. Prior anterior fusion of C5 C7 without complication. 3. Moderate diffuse spondylosis. 4. Consolidative and groundglass opacities in the imaged left upper lobe, highly suspicious for pneumonia. Electronically signed by: Bret Perez MD 01/12/2025 04:45 PM EDT RP XR hip RT w PEL1V IMPRESSION: 1. No acute bony abnormalities of the pelvis or right hip. Electronically signed by: Bret Perez MD 01/12/2025 04:46 PM EDT Discharge Plan Discharge Clinical Impression: Fall from slip, trip, or stumble, Closed head injury, Hematoma of occipital region of scalp, Contusion of hip, right Patient Disposition: Home, Self-Care Instructions: Head Injury (ED), Scalp Contusion in Adults (ED) Additional Instructions: Your blood work did not reveal any significant findings related to your fall. The CT scan of your head revealed no skull fracture or bleeding in the brain which is reassuring. The CT scan of your neck did not reveal any broken bones of your neck which is also reassuring. Follow the head injury and scalp contusion instructions. Apply ice to the lump on your head for 15 minutes 4 to 6 times a day for the next 1-2 days. Take Tylenol (acetaminophen) 500 mg pills, 2 pills every 6 hours as needed for pain. Follow-up with your doctor in 2 days. Please return to the emergency department if your symptoms get worse or if you develop any symptoms that are concerning to you. Prescriptions: No Action (DME) compr.stocking,thigh,reg,large Misc See Rx Instructions .Route Qty: 2 3RF Rx Instructions: Thigh High compression stockings 10-20mmHg (DME) blood-glucose meter [OneTouch Verio Flex meter] Misc See Rx Instructions .Route Qty: 1 0RF Rx Instructions: As directed (DME) OneTouch Verio test strips Strip See Rx Instructions .Route Qty: 100 11RF Rx Instructions: Test blood sugar 3 times per day (DME) lancets [OneTouch Delica Plus Lancet] 30 gauge misc See Rx Instructions .Route Qty: 100 11RF Rx Instructions: Test blood sugar 3 times per day insulin glargine [Lantus Solostar U-100 Insulin] 100 unit/mL (3 mL) insulin pen 25 unit subcut BEDTIME Qty: 15 3RF montelukast 10 mg tablet 10 mg PO BEDTIME 30 Days Qty: 30 3RF ipratropium-albuterol 0.5 mg-3 mg(2.5 mg base)/3 mL solution for nebulization 3 ml inhalation Q6H PRN (Reason: wheezing) 30 Days Qty: 180 3RF Jardiance 25 mg tablet 25 mg PO DAILY Qty: 90 1RF furosemide 20 mg tablet 20 mg PO DAILY Qty: 90 3RF Ozempic 2 mg/dose (8 mg/3 mL) pen injector 2 mg subcut MCWILLIAMS Qty: 3 2RF (DME) FreeStyle Kelly 2 Sensor Kit See Rx Instructions .ROUTE .MEDSUPPLY Qty: 6 3RF Rx Instructions: As directed every 2 weeks diltiazem HCl 300 mg capsule,extended release 24hr 300 mg PO DAILY Qty: 90 3RF (DME) walker Misc See Rx Instructions .Route Qty: 1 0RF Rx Instructions: As directed loratadine 10 mg Tablet 10 mg PO DAILY PRN (Reason: Allergy Symptoms) cholecalciferol (vitamin D3) 25 mcg (1,000 unit) Tablet 25 mcg PO DAILY docusate sodium 100 mg Capsule 100 mg PO BID PRN (Reason: Constipation) Qty: 30 0RF acetaminophen 325 mg Tablet 650 mg PO Q6H PRN (Reason: pain) Qty: 30 0RF albuterol sulfate 90 mcg/actuation Hfa Aerosol Inhaler 2 puff INHALATION QID PRN (Reason: SOB/wheezing) citalopram 20 mg tablet 20 mg PO DAILY budesonide-formoterol [Symbicort] 160-4.5 mcg/actuation HFA aerosol inhaler 2 puff INHALATION BID PRN (Reason: SOB) simethicone 80 mg tablet,chewable 80 mg PO QID PRN (Reason: gas) sennosides-docusate sodium [Stimulant Laxative Plus] 8.6-50 mg tablet 2 tab PO BID PRN atorvastatin 80 mg tablet 80 mg PO BEDTIME ipratropium-albuterol 0.5 mg-3 mg(2.5 mg base)/3 mL solution for nebulization 3 ml inhalation Q8H PRN (Reason: wheezing) Qty: 180 3RF buspirone 10 mg tablet 10 mg PO BID Qty: 180 1RF carvedilol 6.25 mg tablet 6.25 mg PO BID 90 Days Qty: 180 3RF Rx Instructions: must administer with a meal/food Eliquis 5 mg tablet 5 mg PO BID Qty: 180 3RF pantoprazole 40 mg tablet,delayed release (DR/EC) 40 mg PO .qd Qty: 90 3RF insulin lispro [Humalog KwikPen Insulin] 100 unit/mL insulin pen 1 sliding scale dose SUBCUT USEASDIRECTD Qty: 15 5RF Rx Instructions: <100, no Humalog, 100-150 6 units, 150-200 10 units, >200 14 units, before each meal, TID Interventions: ED Discharge Assessment Last Done: 01/12/25 20:19 Print Language: Azeri
[2025-01-12 15:13] VITALS: BP 206/66; PULSE 91; RESP 18; TEMP 36.8; O2SAT 95; BMI 33.3
[2025-01-12 15:23] VITALS: BP 197/83; PULSE 91; RESP 19; O2SAT 95
--- NOTE | 2025-01-12 15:29 | ECG_ITS ---
Test Reason : stroke symptoms Blood Pressure : */* mmHG Vent. Rate : 90 BPM Atrial Rate : 90 BPM P-R Int : 190 ms QRS Dur : 74 ms QT Int : 390 ms P-R-T Axes : 50 36 92 degrees QTcB Int : 477 ms Normal sinus rhythm Nonspecific T wave abnormality Abnormal ECG When compared with ECG of 05-Jul-2024 15:30, Sinus rhythm has replaced Ectopic atrial rhythm Vent. rate has increased by 34 bpm Referred By: Orestes Coronel Electronically Signed By: SCOTTIE MONROY
--- OUTSIDE RECORDS SUMMARY | 2025-01-12 15:38 | XMS_ITS | Clinical Summary ---
Author Organization [facility] it Address [id number] [place] [id number] Care Team Providers Care Soap Drier Operator Name Role Phone Ben Borges MD [...] age to complete this topic Care Teams Soap Drier Operator Relationship Specialty Start Date End Date Ben Borges MD [address] [place] [address] PCP - General Internal Medicine 05/04/22
--- OUTSIDE RECORDS SUMMARY | 2025-01-12 15:38 | XMS_ITS | Clinical Summary ---
Author Organization [facility] Facility Address [address] [place] [id number] Care Team Providers Care Business Sales Consultant Name Role Phone Unavailable Primary Care Provider [...]
[2025-01-12 15:53] LABS: MANUAL DIFF FLAG NO
[2025-01-12 16:00] VITALS: BP 175/64; PULSE 89; RESP 14; O2SAT 95
[2025-01-12 16:01] LABS: Basophils Absolute Auto 0.1 X10*3/uL (0.0-0.2); Basophils Percent Auto 0.8 % (0-2); Basophils Percent Auto 0.9 % (0-2); Eosinophils Absolute Auto 0.4 X10*3/uL (0.0-0.4); Eosinophils Percent Auto 4.1 % (0-4); Eosinophils Percent Auto 4.2 % (0-4); Hematocrit 36.2 % (37.0-47.0); Hematocrit 36.4 % (37.0-47.0); Hemoglobin 11.3 g/dl (12.0-16.0); Hemoglobin 11.4 g/dl (12.0-16.0); Imm Gran Abs Auto 0.03 X10*3/uL (0.00-0.03); Imm Gran Abs Auto 0.04 X10*3/uL (0.00-0.03); Imm Gran Pct Auto 0.3 % (0.0-0.4); Imm Gran Pct Auto 0.4 % (0.0-0.4); Lymphocytes Absolute Auto 1.7 X10*3/uL (1.2-4.9); Lymphocytes Absolute Auto 1.8 X10*3/uL (1.2-4.9); Lymphocytes Percent Auto 18.1 % (20-40); Lymphocytes Percent Auto 18.7 % (20-40); Mean Corpuscular HGB Conc 31.5 g/dl (31.0-35.0); Mean Corpuscular Hemoglobin 24.7 pg (27.0-33.0); Mean Corpuscular Hemoglobin 25.2 pg (27.0-33.0); Mean Corpuscular Volume 79.6 fL (80.0-98.0); Mean Corpuscular Volume 79.9 fL (80.0-98.0); Mean Platelet Volume 9.8 fL (9.4-12.3); Mean Platelet Volume 9.9 fL (9.4-12.3); Monocytes Absolute Auto 0.7 X10*3/uL (0.1-1.2); Monocytes Absolute Auto 0.8 X10*3/uL (0.1-1.2); Monocytes Percent Auto 7.8 % (2-11); Monocytes Percent Auto 8.4 % (2-11); Neutrophils Absolute Auto 6.3 x10*3/uL (2.0-8.3); Neutrophils Absolute Auto 6.5 x10*3/uL (2.0-8.3); Neutrophils Percent Auto 67.5 % (45-73); Neutrophils Percent Auto 68.8 % (45-73); Platelet Count 249 X10*3/uL (160-400); Platelet Count 260 X10*3/uL (160-400); Red Blood Count 4.53 X10*6/uL (4.20-5.50); Red Blood Count 4.57 X10*6/uL (4.20-5.50); Red Cell Distribution Width 17.7 % (11.0-16.0); Red Cell Distribution Width 17.8 % (11.0-16.0); White Blood Count 9.1 X10*3/uL (4.8-10.8); White Blood Count 9.6 X10*3/uL (4.8-10.8)
[2025-01-12 16:14] LABS: Anion Gap 15 (12-20); Blood Urea Nitrogen 34 mg/dL (9-16); Calcium 8.7 mg/dL (8.4-10.2); Carbon Dioxide 22 mmol/L (22-29); Chloride 105 mmol/L (96-108); Creatinine Clr Calc Pharmacy 38.3; Estimated Glomerular Filt Rate 38; Glucose Random 258 mg/dL (60-115); Potassium 3.6 mmol/L (3.3-5.1); Sodium 138 mmol/L (135-145)
[2025-01-12 16:22] LABS: INTERNATIONAL NORM RATIO 1.1 (0.9-1.1); Prothrombin Time 12.3 SEC (10.9-12.4)
[2025-01-12] MEDS: ondansetron HCL 4 MG/2 ML VIAL IVPUSH (16:23)
[2025-01-12] MEDS: Morphine Sulfate 4 MG/ML CARTRIDGE IVPUSH ×2 (16:23→18:43)
[2025-01-12 16:24] LABS: Partial Thromboplastin Time 34.4 SEC (26.0-36.8)
[2025-01-12 16:52] LABS: Alanine Aminotransferase 15 U/L (0-31); Albumin Level 3.7 g/dL (3.5-5.0); Anion Gap 14 (12-20); Aspartate Amino Transferase 21 U/L (5-31); Bilirubin Total 0.2 mg/dL (0.0-1.0); Blood Urea Nitrogen 34 mg/dL (9-16); Calcium 8.8 mg/dL (8.4-10.2); Carbon Dioxide 22 mmol/L (22-29); Chloride 106 mmol/L (96-108); Creatinine Clr Calc Pharmacy 38.3; Estimated Glomerular Filt Rate 38; Glucose Random 256 mg/dL (60-115); Potassium 3.6 mmol/L (3.3-5.1); Sodium 138 mmol/L (135-145); Total Protein 6.8 g/dL (6.5-8.0)
[2025-01-12 17:22] LABS: Alkaline Phosphatase 135 U/L (39-117)
[2025-01-12 18:07] VITALS: BP 174/54; PULSE 82; RESP 18; TEMP 36.9; O2SAT 96
[2025-01-12] MEDS: Acetaminophen 325 MG TABLET 975 MG PO (18:44)
[2025-01-12 20:19] VITALS: BP 174/54; PULSE 82; RESP 18; TEMP 36.9; O2SAT 96
== END 2025-01-12 20:19 | disposition home or self-care (01) ==
PROVIDERS: Nurse Practitioner Family; Emergency Provider Emergency Medicine Emergency Medical Services; PCP Internal Medicine
DX: S09.90XA Unspecified injury of head, initial encounter (principal); S00.03XA Contusion of scalp, initial encounter; S70.01XA Contusion of right hip, initial encounter; W01.0XXA Fall on same level from slipping, tripping and stumbling without subsequent striking against object, initial encounter; Y93.89 Activity, other specified; Y92.010 Kitchen of single-family (private) house as the place of occurrence of the external cause; Y99.9 Unspecified external cause status; Z86.718 Personal history of other venous thrombosis and embolism; Z79.01 Long term (current) use of anticoagulants
CPT/HCPCS: 36415; 70450; 72125; 73502; 80048; 80053; 85025; 85610; 85730; 86850; 86900; 86901; 93005; 96374; 96375; 96376; 99285; J2270; J2405

== ENCOUNTER → 2025-01-12 15:29 | Outpatient (BNV) | payer MEDICARE, SELFPAY | PROVIDERS: Emergency Provider Emergency Medicine Emergency Medical Services; PCP Internal Medicine; Visit Provider Internal Medicine | DX: R94.31 Abnormal electrocardiogram [ECG] [EKG] (principal); I63.9 Cerebral infarction, unspecified | CPT/HCPCS: 93010 ==

== ENCOUNTER → 2025-01-12 15:29 | Outpatient (BNV) | payer MEDICARE, SELFPAY | PROVIDERS: Emergency Provider Emergency Medicine Emergency Medical Services; PCP Internal Medicine; Visit Provider Radiology Diagnostic Radiology | DX: M54.2 Cervicalgia (principal); S09.90XA Unspecified injury of head, initial encounter; M25.551 Pain in right hip | CPT/HCPCS: 70450; 72125; 73502 ==

== ENCOUNTER 2025-01-17 16:54 | Emergency (ER) | payer MEDICARE, SELFPAY ==
--- NOTE | ~2025-01-17 | CT_ITS ---
CLINICAL HISTORY: fall with headstrike CT head without contrast Comparison: CT/NM/SR - CT HEAD FOR ICH - 01/12/25 16:02 EDT Findings: Involutional change and nonspecific white matter hypodensity. No intracranial mass, midline shift, hydrocephalus, or acute hemorrhage. Orbits, paranasal sinuses, and mastoid air cells are unremarkable. No skull fracture Impression: 1. No acute findings This document has been electronically signed by: Sima Dale MD on 01/17/2025 18:24:31
[2025-01-17 16:57] VITALS: BP 165/72; PULSE 81; RESP 16; TEMP 36.1; O2SAT 97; BMI 33.2
--- NOTE | 2025-01-17 16:57 | ED.FALL ---
HPI - Fall General Chief Complaint: Head Injury Stated Complaint: Visual changes, dizziness - hit head 01/12/25 Time Seen by Provider: 01/17/25 17:29 History of Present Illness ED Provider: Quincy CROUCH Narrative: the patient is a 74-year-old woman with a history of paroxysmal atrial fibrillation on apixaban. Five days ago she had a head injury. She was sitting in a chair when she accidentally fell backwards in the chair and she struck the back of her head against a kitchen island. She was brought to the hospital at that time and had a negative CT scan of the brain and the cervical spine. She was discharged from the emergency room. She has been complaining frequently have headaches since then. She has also been complaining of neck pain. She has been taking a lot of Tylenol for her headaches. She also says that over the last 2 days she feels that she has had some visual changes in her left visual field. She feels that things look squiggly on the left side of her vision, particularly with the left eye. She also feels that her balance has been worse. She denies nausea or vomiting. She has been somewhat photophobic. She does not have a history of headaches and has not had a headache syndrome like this before. Related Data Home Medications ?Medication ?Instructions ?Recorded ?Confirmed cholecalciferol (vitamin D3) 25 25 mcg PO DAILY 08/11/23 12/14/24 mcg (1,000 unit) tablet loratadine 10 mg tablet 10 mg PO DAILY PRN Allergy Symptoms 08/11/23 12/14/24 atorvastatin 80 mg tablet 80 mg PO BEDTIME 11/28/23 12/14/24 albuterol sulfate 90 mcg/actuation 2 puff inhalation QID PRN 05/17/24 12/14/24 aerosol inhaler SOB/wheezing budesonide-formoterol HFA 160 2 puff inhalation BID PRN SOB 05/17/24 12/14/24 mcg-4.5 mcg/actuation aerosol inhaler (Symbicort) citalopram 20 mg tablet 20 mg PO DAILY 05/17/24 12/14/24 simethicone 80 mg chewable tablet 80 mg PO QID PRN gas 07/06/24 12/14/24 sennosides 8.6 mg-docusate sodium 2 tab PO BID PRN 11/08/24 12/14/24 50 mg tablet (Stimulant Laxative Plus) Previous Rx's ?Medication ?Instructions ?Recorded walker #1 ea 02/28/23 acetaminophen 325 mg tablet 650 mg (2 x 325 mg) PO Q6H PRN 08/22/23 pain #30 tabs docusate sodium 100 mg capsule 100 mg PO BID PRN Constipation #30 08/22/23 caps ipratropium 0.5 mg-albuterol 3 mg 3 ml inhalation Q8H PRN wheezing 12/29/23 (2.5 mg base)/3 mL nebulization #180 mL soln compr.stocking,thigh,reg,large #2 ea 02/08/24 blood sugar diagnostic (OneTouch #100 ea 03/06/24 Verio test strips) blood-glucose meter (OneTouch #1 ea 03/06/24 Verio Flex Meter) lancets 30 gauge (OneTouch Delica #100 ea 03/06/24 Plus Lancet) insulin lispro 100 unit/mL 1 sliding scale dose subcut 06/08/24 subcutaneous pen (Humalog KwikPen USEASDIRECTD #15 mL (U-100) Insulin) insulin glargine 100 unit/mL (3 25 unit (0.25 mL) subcut BEDTIME 07/09/24 mL) subcutaneous pen (Lantus #15 mL Solostar U-100 Insulin) montelukast 10 mg tablet 10 mg PO BEDTIME ASTHMA/COPD 30 08/15/24 days #30 tabs ipratropium 0.5 mg-albuterol 3 mg 3 ml inhalation Q6H PRN wheezing 11/16/24 (2.5 mg base)/3 mL nebulization 30 days #180 mL soln empagliflozin 25 mg tablet 25 mg PO DAILY #90 tabs 11/19/24 (Jardiance) furosemide 20 mg tablet 20 mg PO DAILY #90 tabs 11/20/24 Ozempic 2 mg/dose (8 mg/3 mL) 2 mg (0.75 mL) subcut MCWILLIAMS #3 mL 11/29/24 subcutaneous pen injector (semaglutide) apixaban 5 mg tablet (Eliquis) 5 mg PO BID #180 tabs 12/14/24 buspirone 10 mg tablet 10 mg PO BID #180 tabs 12/14/24 carvedilol 6.25 mg tablet 6.25 mg PO BID 90 days #180 tabs 12/14/24 pantoprazole 40 mg tablet,delayed 40 mg PO .qd #90 tabs 12/14/24 release flash glucose sensor (FreeStyle #6 ea 12/26/24 Kelly 2 Sensor kit) diltiazem HCl 300 mg capsule,24 300 mg PO DAILY #90 caps 01/09/25 hr,extended release oxycodone 5 mg tablet 5 mg PO Q6H PRN pain #12 tabs 01/17/25 prochlorperazine maleate 10 mg 10 mg PO Q6H PRN headache #10 tabs 01/17/25 tablet Allergies Allergy/AdvReac Type Severity Reaction Status Date / Time Latex, Natural Rubber Allergy Severe blisters Verified 01/17/25 16:59 Sulfa (Sulfonamide Allergy Mild ITCHING, Verified 01/17/25 16:59 Antibiotics) rash [SULFA (SULFONAMIDE ANTIBIOTICS)] nystatin Allergy Unknown rash Verified 01/17/25 16:59 isosorbide [From Imdur] AdvReac Unknown HEADACHES, Verified 01/17/25 16:59 headache tizanidine AdvReac Unknown weakness, Verified 01/17/25 16:59 Hellucination Review of Systems Review of Systems: Yes all other systems are reviewed and are negative FORMERLY [facility], [facility] Past Medical History Medical History (Updated 01/17/25 @ 21:22 by Mayank Mathew MD) longterm (current) use of insulin Vitamin D deficiency DM type 2 (diabetes mellitus, type 2) CAD (coronary artery disease) Non-ST elevation CT (NSTEMI) Patellofemoral arthritis of right knee Right knee pain longterm current use of 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 Father No problems noted. Brother Substance use disorder Brother Substance use disorder Social History Social History Household Members: Family Household Members Other:: 2 Housing: House Do you presently have visiting nurse or other home services: No Alcohol intake: former Patient Tobacco Use Status: Former Tobacco user Tobacco use type: Cigarette Cigarettes Per Day: 10 Years Smoked: 3 e-Cigarette/Vaping Use: Never Used Second Hand Smoke Exposure: No Advance Directives: Yes Advance Directives on File: Yes Advance Directives Date on File: 06/29/23 service: No Current occupational status: retired Cognitive needs: No Hearing needs: No Vision needs: No Physical Exam Vital Signs: Vital Signs: Last Vital Signs Temp 98.9 F 01/17/25 21:42 Pulse 72 01/17/25 21:42 Resp 16 01/17/25 21:42 BP 150/58 H 01/17/25 21:42 Pulse Ox 98 01/17/25 21:42 O2 Del Method Room Air 01/17/25 21:42 BMI result Body Mass Index 33.2 Const: Other: The patient is a somewhat chronically ill-appearing 74-year-old woman who looks somewhat uncomfortable. She seems somewhat photophobic. However she has a normal mental status. HEENT: Other: Face is symmetrical. Mucous membranes are moist. Tongue is midline. Eyes: Other: The appearance of the eyes is grossly normal. No eyelid swelling. No conjunctival injection. Pupils are round and equal. Pupils are small but respond to light symmetrically. Extraocular movements are intact. Visual cespedes are intact to confrontation. Visual acuity is 20/50 in the left eye and 20/30 in the right eye. Intra-ocular pressure is 18 in the left eye and 20 in the right eye. Neck: Other: Neck is supple. No JVD. Resp: Effort & Inspection: normal respiratory effort Auscultation: clear to auscultation bilaterally Cardio: Rate: regular rate Rhythm: regular rhythm Heart sounds: S1 normal heart sound present and S2 normal heart sound present GI: Other: Abdomen is soft and nontender Skin: Other: skin is dry and unremarkable Neuro: Other: the patient is awake and alert although she seems somewhat uncomfortable. Mental status seems clear. Cranial nerves 2-12 are intact. This includes intact extraocular motions, pupillary response, and visual cespedes to confrontation. She has symmetrical strength in her extremities. She has a stiff gait but seems fairly steady on her feet. No obvious focal neurological deficits. Extrem: Other: No peripheral edema Course Course Course Narrative: This is a rapid medical exam performed by Torres Chacon NP: Additional HPI, ROS, PE not included below will be deferred to primary provider. 74-year-old female accompanied by daughter, with PMHx of hypertension, DVTs on Eliquis, congestive heart failure, aortic stenosis, paroxysmal atrial fibrillation, congestive heart failure preserved ejection fraction, asthma, COPD, ALYSIA, kidney disease presents to the ED due to fall with headstrike. Patient was seen in the department on 01/12 due to mechanical fall with headstrike on metal hardware on [facility] (no LOC). She states she has had a persistent pressure headache feeling like her head will explode . She reports experiencing 2 days of visual changes where images are wavy when she looks at them. She has been taking Tylenol for pain management without effect. Daughter States she is worried patient could have a delayed brain bleed. Denies nausea, vomiting. Plan: labs, EKG, CT head, visual acuity Medications Administered Discontinued Medications Generic Name Dose Route Start Last Admin Trade Name Freq PRN Reason Stop Dose Admin Acetaminophen 1,000 mg in 100 mls @ 400 mls/hr 01/17/25 19:27 01/17/25 19:56 Ofirmev IV 01/17/25 19:41 400 mls/hr ONCE ONE Administration Metoclopramide HCl 10 mg 01/17/25 18:55 01/17/25 19:56 Metoclopramide Hcl 10 Mg/2 Ml Vial IVPUSH 01/17/25 18:56 10 mg ONCE ONE Administration Tetracaine HCl 3 drop 01/17/25 20:30 01/17/25 20:33 Tetracaine Hcl 0.5% Oph Karen 5 Ml Drops EYE-BOTH 01/17/25 20:31 3 drop ONCE ONE Administration Medical Decision Making Medical Decision Making [facility] Narrative: the patient returns to the emergency room for evaluation of a headache associated with some visual symptoms after being seen here 5 days ago following a head injury. She is on anticoagulation. She is mildly hypertensive but vital signs are otherwise normal. She reports a somewhat intermittent headache but a headache which was quite uncomfortable and which is not typical for her. She also feels that she has had some visual changes associated with a headache. She feels that the left visual field or the left eye has sway goes in her vision. On exam the vision in her right eye seems better than her left eye and she seemed to feel that she did not have any of the squiggly phenomenon when using her right eye alone. Her head CT is negative for any possible delayed hemorrhage related to her anticoagulation. The examination of her vision and her eyes reveals a visual acuity of 20/50 in the left eye ( the affected eye ) and 20/30 in the right eye ( the good eye). Visual cespedes are intact to confrontation in both eyes tested separately. Intra-ocular pressure is 18 in the left eye ( the affected eye ), and 20 in the right eye. an informal bedside ultrasound of the left eye did not reveal any obvious retinal abnormality or any obvious debris within the vitreous. ESR was normal at 14. The patient has headache was treated with a dose of IV acetaminophen and a dose of IV metoclopramide. She seemed to have significant improvement of her headache with this regimen. Her demeanor brightened considerably. It is possible her headache was a migraine headache. Since the patient had a negative head CT, unremarkable labs, and considerable improvement in her discomfort, and since eye and her vision evaluation does not seem to reveal any acute process requiring acute intervention I think she may be discharged. Lab Data 01/17/25 17:50 01/17/25 17:50 Labs: Lab Results 01/17/25 01/17/25 Range/Units 17:50 18:37 WBC 8.5 (4.8-10.8) X10*3/uL RBC 4.34 (4.20-5.50) X10*6/uL Hgb 10.9 L (12.0-16.0) g/dl Hct 34.3 L (37.0-47.0) % MCV 79.0 L (80.0-98.0) fL MCH 25.1 L (27.0-33.0) pg MCHC 31.8 (31.0-35.0) g/dl RDW 17.6 H (11.0-16.0) % Plt Count 270 (160-400) X10*3/uL MPV 9.5 (9.4-12.3) fL Immature Gran % (Auto) 0.2 (0.0-0.4) % Neut % (Auto) 61.7 (45-73) % Lymph % (Auto) 23.3 (20-40) % Trimble % (Auto) 8.9 (2-11) % Eos % (Auto) 5.1 H (0-4) % Baso % (Auto) 0.8 (0-2) % Lymph # (Auto) 2.0 (1.2-4.9) X10*3/uL Trimble # (Auto) 0.8 (0.1-1.2) X10*3/uL Eos # (Auto) 0.4 (0.0-0.4) X10*3/uL Baso # (Auto) 0.1 (0.0-0.2) X10*3/uL Abs Immat Gran (auto) 0.02 (0.00-0.03) X10*3/uL Absolute Neuts (auto) 5.3 (2.0-8.3) x10*3/uL Absolute Nucleated RBC 0.000 (0.0-0.012) X10*3/uL Nucleated RBC % (auto) 0.0 (0.0-0.2) /100WBC ESR 14 (0-20) MM/HR PT 12.2 (10.9-12.4) SEC INR 1.1 (0.9-1.1) Sodium 142 (135-145) mmol/L Potassium 3.9 (3.3-5.1) mmol/L Chloride 106 (96-108) mmol/L Carbon Dioxide 24 (22-29) mmol/L Anion Gap 16 (12-20) BUN 24 H (9-16) mg/dL Creatinine 1.09 (0.5-1.4) mg/dL Estim Creat Clear Calc 47.0 Estimated GFR 49 Random Glucose 137 H (60-115) mg/dL Calcium 8.5 (8.4-10.2) mg/dL Total Bilirubin 0.3 (0.0-1.0) mg/dL Direct Bilirubin 0.1 (0.0-0.5) mg/dL AST 29 (5-31) U/L ALT 26 (0-31) U/L Alkaline Phosphatase 118 H (39-117) U/L Troponin I High Sens 8.9 D (<3.5-17.0) ng/L Total Protein 6.8 (6.5-8.0) g/dL Albumin 3.7 (3.5-5.0) g/dL Discharge Plan Discharge Clinical Impression: Headache, Vision disturbance Patient Disposition: Home, Self-Care Additional Instructions: the CAT scan of your head today shows that there is no bleeding associated with your headache. I have not found any dangerously acute problem with regard to your vision. Nevertheless I recommend that you get rechecked by an senior storage engineer in the next couple of days. You has been provided with the contact information for Dr. Yeung's. Please contact his office in the morning to see if he can get you in for a recheck in the next couple of days. Please also plan on following up with your regular doctor's office soon. If you have an ongoing headache you may take 2 extra-strength acetaminophen ( Tylenol) up to 3 times per day. Additionally I have sent a prescription for oxycodone tablets that you may use if you have severe discomfort. It might be good to start by trying half a tablet. Prochlorperazine is a nausea medication which can sometimes be helpful for headaches. You may try this medication as well if you have significant ongoing headache symptoms. If at any point you feel significantly worse please return to the emergency room for additional evaluation. Prescriptions: New oxycodone 5 mg tablet 5 mg PO Q6H PRN (Reason: pain) Qty: 12 0RF Rx Instructions: Partial Fill upon patient request. prochlorperazine maleate 10 mg tablet 10 mg PO Q6H PRN (Reason: headache) Qty: 10 0RF No Action (DME) compr.stocking,thigh,reg,large Misc See Rx Instructions .Route Qty: 2 3RF Rx Instructions: Thigh High compression stockings 10-20mmHg (DME) blood-glucose meter [OneTouch Verio Flex meter] Misc See Rx Instructions .Route Qty: 1 0RF Rx Instructions: As directed (DME) OneTouch Verio test strips Strip See Rx Instructions .Route Qty: 100 11RF Rx Instructions: Test blood sugar 3 times per day (DME) lancets [OneTouch Delica Plus Lancet] 30 gauge misc See Rx Instructions .Route Qty: 100 11RF Rx Instructions: Test blood sugar 3 times per day insulin glargine [Lantus Solostar U-100 Insulin] 100 unit/mL (3 mL) insulin pen 25 unit subcut BEDTIME Qty: 15 3RF montelukast 10 mg tablet 10 mg PO BEDTIME 30 Days Qty: 30 3RF ipratropium-albuterol 0.5 mg-3 mg(2.5 mg base)/3 mL solution for nebulization 3 ml inhalation Q6H PRN (Reason: wheezing) 30 Days Qty: 180 3RF Jardiance 25 mg tablet 25 mg PO DAILY Qty: 90 1RF furosemide 20 mg tablet 20 mg PO DAILY Qty: 90 3RF Ozempic 2 mg/dose (8 mg/3 mL) pen injector 2 mg subcut MCWILLIAMS Qty: 3 2RF (DME) FreeStyle Kelly 2 Sensor Kit See Rx Instructions .ROUTE .MEDSUPPLY Qty: 6 3RF Rx Instructions: As directed every 2 weeks diltiazem HCl 300 mg capsule,extended release 24hr 300 mg PO DAILY Qty: 90 3RF (DME) belgica Misc See Rx Instructions .Route Qty: 1 0RF Rx Instructions: As directed loratadine 10 mg Tablet 10 mg PO DAILY PRN (Reason: Allergy Symptoms) cholecalciferol (vitamin D3) 25 mcg (1,000 unit) Tablet 25 mcg PO DAILY docusate sodium 100 mg Capsule 100 mg PO BID PRN (Reason: Constipation) Qty: 30 0RF acetaminophen 325 mg Tablet 650 mg PO Q6H PRN (Reason: pain) Qty: 30 0RF albuterol sulfate 90 mcg/actuation Hfa Aerosol Inhaler 2 puff INHALATION QID PRN (Reason: SOB/wheezing) citalopram 20 mg tablet 20 mg PO DAILY budesonide-formoterol [Symbicort] 160-4.5 mcg/actuation HFA aerosol inhaler 2 puff INHALATION BID PRN (Reason: SOB) simethicone 80 mg tablet,chewable 80 mg PO QID PRN (Reason: gas) sennosides-docusate sodium [Stimulant Laxative Plus] 8.6-50 mg tablet 2 tab PO BID PRN atorvastatin 80 mg tablet 80 mg PO BEDTIME ipratropium-albuterol 0.5 mg-3 mg(2.5 mg base)/3 mL solution for nebulization 3 ml inhalation Q8H PRN (Reason: wheezing) Qty: 180 3RF buspirone 10 mg tablet 10 mg PO BID Qty: 180 1RF carvedilol 6.25 mg tablet 6.25 mg PO BID 90 Days Qty: 180 3RF Rx Instructions: must administer with a meal/food Eliquis 5 mg tablet 5 mg PO BID Qty: 180 3RF pantoprazole 40 mg tablet,delayed release (DR/EC) 40 mg PO .qd Qty: 90 3RF insulin lispro [Humalog KwikPen Insulin] 100 unit/mL insulin pen 1 sliding scale dose SUBCUT USEASDIRECTD Qty: 15 5RF Rx Instructions: <100, no Humalog, 100-150 6 units, 150-200 10 units, >200 14 units, before each meal, TID Referrals: Amanda Leiva MD [Primary Care Provider] - ( follow up from fall, headache) Walt Yeung [Physician] - ( Left eye visual complaints) Interventions: ED Discharge Assessment Last Done: 01/17/25 21:42 Discharge Date/Time: 01/17/25 21:50 Print Language: Khmer
--- NOTE | 2025-01-17 17:03 | ECG_ITS ---
Test Reason : [place] Blood Pressure : */* mmHG Vent. Rate : 77 BPM Atrial Rate : 77 BPM P-R Int : 192 ms QRS Dur : 82 ms QT Int : 398 ms P-R-T Axes : 50 38 101 degrees QTcB Int : 450 ms Normal sinus rhythm Nonspecific T wave abnormality Abnormal ECG When compared with ECG of 12-Jan-2025 15:35, No significant change was found Referred By: Mayank Mathew Electronically Signed By: NELSON PLASCENCIA MD
[2025-01-17 18:49] LABS: MANUAL DIFF FLAG NO
[2025-01-17 18:58] LABS: Basophils Absolute Auto 0.1 X10*3/uL (0.0-0.2); Basophils Percent Auto 0.8 % (0-2); Eosinophils Absolute Auto 0.4 X10*3/uL (0.0-0.4); Eosinophils Percent Auto 5.1 % (0-4); Hematocrit 34.3 % (37.0-47.0); Hemoglobin 10.9 g/dl (12.0-16.0); Imm Gran Abs Auto 0.02 X10*3/uL (0.00-0.03); Imm Gran Pct Auto 0.2 % (0.0-0.4); Lymphocytes Percent Auto 23.3 % (20-40); Mean Corpuscular HGB Conc 31.8 g/dl (31.0-35.0); Mean Corpuscular Hemoglobin 25.1 pg (27.0-33.0); Mean Platelet Volume 9.5 fL (9.4-12.3); Monocytes Absolute Auto 0.8 X10*3/uL (0.1-1.2); Monocytes Percent Auto 8.9 % (2-11); Neutrophils Absolute Auto 5.3 x10*3/uL (2.0-8.3); Neutrophils Percent Auto 61.7 % (45-73); Platelet Count 270 X10*3/uL (160-400); Red Blood Count 4.34 X10*6/uL (4.20-5.50); Red Cell Distribution Width 17.6 % (11.0-16.0); White Blood Count 8.5 X10*3/uL (4.8-10.8)
[2025-01-17 19:01] LABS: INTERNATIONAL NORM RATIO 1.1 (0.9-1.1); Prothrombin Time 12.2 SEC (10.9-12.4)
[2025-01-17 19:09] LABS: Alanine Aminotransferase 26 U/L (0-31); Albumin Level 3.7 g/dL (3.5-5.0); Alkaline Phosphatase 118 U/L (39-117); Anion Gap 16 (12-20); Aspartate Amino Transferase 29 U/L (5-31); Bilirubin Direct 0.1 mg/dL (0.0-0.5); Bilirubin Total 0.3 mg/dL (0.0-1.0); Blood Urea Nitrogen 24 mg/dL (9-16); Calcium 8.5 mg/dL (8.4-10.2); Carbon Dioxide 24 mmol/L (22-29); Chloride 106 mmol/L (96-108); Estimated Glomerular Filt Rate 49; Glucose Random 137 mg/dL (60-115); Potassium 3.9 mmol/L (3.3-5.1); Sodium 142 mmol/L (135-145); Total Protein 6.8 g/dL (6.5-8.0)
[2025-01-17 19:16] LABS: Troponin-I High Sensitivity 8.9 ng/L (<3.5-17.0)
[2025-01-17 19:31] VITALS: BP 166/58; PULSE 74; RESP 16; TEMP 36.9; O2SAT 97
[2025-01-17] MEDS: Acetaminophen 1,000 MG/100 ML PIGGYBACK 400 MG IV (19:56)
[2025-01-17] MEDS: Metoclopramide HCl 10 MG/2 ML VIAL IVPUSH (19:56)
[2025-01-17] MEDS: Tetracaine HCl 0.5% Oph Sol 5 ML DROPS 3 DROP EYE-BOTH (20:33)
[2025-01-17 21:42] VITALS: BP 150/58; PULSE 72; RESP 16; TEMP 37.2; O2SAT 98
[2025-01-17 22:04] LABS: Erythrocyte Sedimentation Rate 14 MM/HR (0-20)
== END 2025-01-17 21:50 | disposition home or self-care (01) ==
PROVIDERS: Registered Nurse Emergency; Emergency Provider Emergency Medicine; PCP Internal Medicine
DX: R51.9 Headache, unspecified (principal); R42 Dizziness and giddiness; M54.2 Cervicalgia; H53.143 Visual discomfort, bilateral; R94.31 Abnormal electrocardiogram [ECG] [EKG]; I25.10 Atherosclerotic heart disease of native coronary artery without angina pectoris; Z87.891 Personal history of nicotine dependence; Z79.899 Other long term (current) drug therapy; Z51.81 Encounter for therapeutic drug level monitoring; Z79.4 Long term (current) use of insulin
CPT/HCPCS: 36415; 70450; 80048; 80076; 84484; 85025; 85610; 85652; 93005; 96374; 96375; 99284; J0131; J2765

== ENCOUNTER → 2025-01-17 17:02 | Outpatient (BNV) | payer MEDICARE, SELFPAY | PROVIDERS: Emergency Provider Emergency Medicine; PCP Internal Medicine; Visit Provider Radiology Diagnostic Radiology | DX: S09.90XA Unspecified injury of head, initial encounter (principal) | CPT/HCPCS: 70450 ==

== ENCOUNTER → 2025-01-17 17:03 | Outpatient (BNV) | payer MEDICARE, SELFPAY | PROVIDERS: Emergency Provider Emergency Medicine; PCP Internal Medicine; Visit Provider Internal Medicine Cardiovascular Disease | DX: R94.31 Abnormal electrocardiogram [ECG] [EKG] (principal); R51.9 Headache, unspecified | CPT/HCPCS: 93010 ==

== ENCOUNTER 2025-01-21 18:52 | Emergency (ER) | payer MEDICARE, SELFPAY ==
--- NOTE | ~2025-01-21 | CT_ITS ---
CLINICAL HISTORY: headache, vomiting, on thinners CT head without contrast Comparison: CT/SR - CT HEAD/BRAIN WO IV CON - 01/17/25 17:57 EDT Findings: No intra-axial mass, midline shift, hydrocephalus, or acute hemorrhage. Mild diffuse cerebral volume loss. Mild degree of patchy low-density within the periventricular and subcortical white matter. The visualized paranasal sinuses and mastoid air cells are normal. The orbits are unremarkable. No skull fracture. IMPRESSION: 1. No acute intracranial findings. This document has been electronically signed by: Donna Hillman MD on 01/21/2025 19:31:48
--- NOTE | 2025-01-21 18:55 | ED.GENADULT ---
HPI - General Adult General Chief complaint: Nausea/Vomiting/Diarrhea Stated complaint: non stop vomiting & headache Time Seen by Provider: 01/22/25 00:12 Source: patient Mode of arrival: ambulatory Limitations: no limitations History of Present Illness ED Provider: Dr. Naomi Lofton HPI narrative: Patient comes to the emergency room complaining of nausea and vomiting. Patient states she has not quite been vomiting much, it is just dry heaving, yellowish fluid. Patient states that she had a fall January 12, since then she has been having a headache. Patient believes that the headache is making her vomit. Patient denies any fever chills. Patient has had 2- CAT scans, last CAT scan was done yesterday, 9 days after the fall. Related Data Home Medications ?Medication ?Instructions ?Recorded ?Confirmed cholecalciferol (vitamin D3) 25 25 mcg PO DAILY 08/11/23 12/14/24 mcg (1,000 unit) tablet loratadine 10 mg tablet 10 mg PO DAILY PRN Allergy Symptoms 08/11/23 12/14/24 atorvastatin 80 mg tablet 80 mg PO BEDTIME 11/28/23 12/14/24 albuterol sulfate 90 mcg/actuation 2 puff inhalation QID PRN 05/17/24 12/14/24 aerosol inhaler SOB/wheezing budesonide-formoterol HFA 160 2 puff inhalation BID PRN SOB 05/17/24 12/14/24 mcg-4.5 mcg/actuation aerosol inhaler (Symbicort) citalopram 20 mg tablet 20 mg PO DAILY 05/17/24 12/14/24 simethicone 80 mg chewable tablet 80 mg PO QID PRN gas 07/06/24 12/14/24 sennosides 8.6 mg-docusate sodium 2 tab PO BID PRN 11/08/24 12/14/24 50 mg tablet (Stimulant Laxative Plus) Previous Rx's ?Medication ?Instructions ?Recorded walker #1 ea 02/28/23 acetaminophen 325 mg tablet 650 mg (2 x 325 mg) PO Q6H PRN 08/22/23 pain #30 tabs docusate sodium 100 mg capsule 100 mg PO BID PRN Constipation #30 08/22/23 caps ipratropium 0.5 mg-albuterol 3 mg 3 ml inhalation Q8H PRN wheezing 12/29/23 (2.5 mg base)/3 mL nebulization #180 mL soln compr.stocking,thigh,reg,large #2 ea 02/08/24 blood sugar diagnostic (OneTouch #100 ea 03/06/24 Verio test strips) blood-glucose meter (OneTouch #1 ea 03/06/24 Verio Flex Meter) lancets 30 gauge (OneTouch Delica #100 ea 03/06/24 Plus Lancet) insulin lispro 100 unit/mL 1 sliding scale dose subcut 06/08/24 subcutaneous pen (Humalog KwikPen USEASDIRECTD #15 mL (U-100) Insulin) insulin glargine 100 unit/mL (3 25 unit (0.25 mL) subcut BEDTIME 07/09/24 mL) subcutaneous pen (Lantus #15 mL Solostar U-100 Insulin) montelukast 10 mg tablet 10 mg PO BEDTIME ASTHMA/COPD 30 08/15/24 days #30 tabs ipratropium 0.5 mg-albuterol 3 mg 3 ml inhalation Q6H PRN wheezing 11/16/24 (2.5 mg base)/3 mL nebulization 30 days #180 mL soln empagliflozin 25 mg tablet 25 mg PO DAILY #90 tabs 11/19/24 (Jardiance) furosemide 20 mg tablet 20 mg PO DAILY #90 tabs 11/20/24 Ozempic 2 mg/dose (8 mg/3 mL) 2 mg (0.75 mL) subcut MCWILLIAMS #3 mL 11/29/24 subcutaneous pen injector (semaglutide) apixaban 5 mg tablet (Eliquis) 5 mg PO BID #180 tabs 12/14/24 buspirone 10 mg tablet 10 mg PO BID #180 tabs 12/14/24 carvedilol 6.25 mg tablet 6.25 mg PO BID 90 days #180 tabs 12/14/24 pantoprazole 40 mg tablet,delayed 40 mg PO .qd #90 tabs 12/14/24 release flash glucose sensor (FreeStyle #6 ea 12/26/24 Kelly 2 Sensor kit) diltiazem HCl 300 mg capsule,24 300 mg PO DAILY #90 caps 01/09/25 hr,extended release oxycodone 5 mg tablet 5 mg PO Q6H PRN pain #12 tabs 01/17/25 prochlorperazine maleate 10 mg 10 mg PO Q6H PRN headache #10 tabs 01/17/25 tablet metoclopramide HCl 5 mg tablet 5 mg PO DAILY PRN nausea and 01/22/25 (Reglan) vomiting #14 tabs sumatriptan succinate 50 mg tablet See Rx Instructions PO .COMPLEX 01/22/25 #10 tabs Allergies Allergy/AdvReac Type Severity Reaction Status Date / Time Latex, Natural Rubber Allergy Severe blisters Verified 01/21/25 18:59 Sulfa (Sulfonamide Allergy Mild ITCHING, Verified 01/21/25 18:59 Antibiotics) rash [SULFA (SULFONAMIDE ANTIBIOTICS)] nystatin Allergy Unknown rash Verified 01/21/25 18:59 isosorbide [From Imdur] AdvReac Unknown HEADACHES, Verified 01/21/25 18:59 headache tizanidine AdvReac Unknown weakness, Verified 01/21/25 18:59 Hellucination Review of Systems Review of Systems: Constitutional : No Weight loss, No Fever, No Chills, No Night Sweats, No Fatigue, No Malaise ENT/Mouth : No Hearing loss, No Ear Pain, No Nasal Congestion, No Sinus Pain, No Hoarseness, No sore throat, No Rhinorrhea, No Swallowing Difficulty Eyes: No Eye Pain, No Swelling, No Redness, No Foreign Body, No Discharge, No Vision Changes Cardiovascular : No Chest Pain, No SOB, No Dyspnea on Exertion, No Orthopnea, No Edema, No Palpitations Respiratory : No Cough, No Sputum, No Wheezing, No Smoke Exposure, No Dyspnea Gastrointestinal : Complaining of nausea and vomiting No Diarrhea, No Constipation, No abdominal Pain, No Hematochezia, No Melena Genitourinary : no irregular bleeding, No Dysuria, No Urinary Frequency, No Hematuria, No Urinary Incontinence, No Urgency, No Flank Pain, No Urinary Flow Changes, No Hesitancy Musculoskeletal : No joint pain, No Myalgias, No Joint Swelling Skin : No Skin Lesions, No rash Neuro : No Weakness, No Numbness, No Paresthesias, No Loss of Consciousness, No Dizziness, complaining of Headache Psych : No Anxiety/Panic, No Depression, No SI/HI/AH/VH, No Social Issues, Heme/Lymph: No Bruising, No Bleeding,No Lymphadenopathy Endocrine : No Polyuria, No Polydipsia, No Temperature Intolerance [facility] Past Medical History Medical History 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 Vitamin D deficiency DM type 2 (diabetes mellitus, type 2) CAD (coronary artery disease) Non-ST elevation SD (NSTEMI) Patellofemoral arthritis of right knee Right knee pain 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 Father No problems noted. Brother Substance use disorder Brother Substance use disorder Social History Social History Household Members: Family Household Members Other:: 2 Housing: House Do you presently have visiting nurse or other home services: No Alcohol intake: former Patient Tobacco Use Status: Former Tobacco user Tobacco use type: Cigarette Cigarettes Per Day: 10 Years Smoked: 3 Smoked in Last 30 Days: No e-Cigarette/Vaping Use: Never Used Second Hand Smoke Exposure: No Use of substances other than those prescribed or required for medical reasons: No Advance Directives: Yes Advance Directives on File: Yes Advance Directives Date on File: 06/29/23 service: No Current occupational status: retired Cognitive needs: No Hearing needs: No Vision needs: No Physical Exam ED Vital Signs: Vital Signs - 24 hr 01/21/25 18:56 01/21/25 22:30 01/21/25 23:14 Temperature 98.4 F 98.3 F Pulse Rate 93 90 96 Respiratory Rate 110 H 18 19 Blood Pressure 172/105 H 181/57 H 193/66 H Pulse Oximetry 93 95 94 Oxygen Delivery Method Room Air Room Air Room Air BMI result Body Mass Index 32.3 Const Other: Appearance: Alert. Oriented X3. No acute distress. Eyes: Pupils equal, round and reactive to light. Patient has photophobia ENT: Pharynx normal. Neck: Normal inspection. Neck supple. No lymph nodes noted. No crepitus CVS: Normal heart rate and rhythm. Pulses normal. Normal S1 and S2 Respiratory: No respiratory distress. Breath sounds normal. No Wheezing. No rales Abdomen: Soft and nontender. No rigidity. No distention. Skin: Skin warm and dry. Normal skin color. Normal skin turgor. Extremities: No lower extremity edema. No Lacerations. No Rash Neuro: Oriented X 3. No motor deficit. No sensory deficit. Moving all extremities. No slurred speech. CN 2 through 12 grossly intact Psych: calm, cooperative, normal affect Course Course Course Narrative: 01/21/251855 DEV Prieto This is a Rapid Medical Examination (RME) performed by Garfield Shultz PA-C in triage. Full HPI, ROS, assessment and treatment plan per primary provider in the Main ED. Hx: 74 yo F hx of hypertension, DVTs on Eliquis, congestive heart failure, aortic stenosis, paroxysmal atrial fibrillation, congestive heart failure preserved ejection fraction, asthma, COPD, ALYSIA, kidney disease here for eval of continued headache x9 days, vomiting which began today. reports fall w/ head strike on 01/12/25 - seen in ED twice following fall w/ negative CT head scans. she is on apixaban. reports continued PRATER, has now been vomiting since 0800 this morning. daughter at bedside states this may be d/t her ozempic however has been on this medication for some time. PE/vitals: hypertensive, actively vomiting in triage. zofran given. hypertensive - states she took her morning meds however vomited shortly after. 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 Medications Administered Discontinued Medications Generic Name Dose Route Start Last Admin Trade Name Freq PRN Reason Stop Dose Admin Acetaminophen 975 mg 01/21/25 23:04 01/21/25 23:09 Acetaminophen 325 Mg Tablet PO 01/21/25 23:05 975 mg ONCE ONE Administration Diphenhydramine HCl 25 mg 01/22/25 00:29 01/22/25 00:59 Diphenhydramine Hcl 50 Mg/Ml Vial IVPUSH 01/22/25 00:30 25 mg ONCE ONE Administration Sodium Chloride 1,000 mls @ 999 mls/hr 01/22/25 00:29 01/22/25 01:53 Ns IVCONT 01/22/25 01:29 Infused .Q1H1M ONE Infusion Metoclopramide HCl 10 mg 01/22/25 00:29 01/22/25 00:59 Metoclopramide Hcl 10 Mg/2 Ml Vial IVPUSH 01/22/25 00:30 10 mg ONCE ONE Administration Morphine Sulfate 2 mg 01/22/25 00:29 01/22/25 00:59 Morphine Sulfate 2 Mg/Ml Cartridge IVPUSH 01/22/25 00:30 2 mg ONCE ONE Administration Protocol Ondansetron HCl 4 mg 01/21/25 18:58 01/21/25 19:03 Ondansetron Odt 4 Mg Tab.Rapdis TRANSLINGU 01/21/25 18:59 4 mg ONCE ONE Administration Medical Decision Making Medical Decision Making [facility] Narrative: My interpretation of labs: No significant abnormality in patient's hematology and chemistry, slightly elevated LFTs, no right upper quadrant pain, normal lipase, serology negative for COVID RSV and influenza CT scan of the head done 2 days ago shows no acute intracranial findings. Patient was given a cocktail for migraine headache including IV morphine (patient on Eliquis), Reglan, Benadryl and IV fluids Patient states that she feels much better now, the headache is gone and the nausea is gone. Patient states that she feels well enough to go home and requesting to be discharged Differential Diagnosis Differential Diagnoses: The differential diagnosis associated with the presentation includes (Contusion, concussion, migraine headache, gastroenteritis) Admission/Observation Consideration of admission/observation: Escalation of care including admission/observation considered (Given patient's repeated visits to the ED, observation/admission was considered) Lab Data [facility] Lab Attestation statement: I reviewed the patient's lab results. 01/21/25 19:20 01/21/25 19:20 Labs: Lab Results 01/21/25 Range/Units 19:20 WBC 10.2 (4.8-10.8) X10*3/uL RBC 4.90 (4.20-5.50) X10*6/uL Hgb 12.0 (12.0-16.0) g/dl Hct 39.0 (37.0-47.0) % MCV 79.6 L (80.0-98.0) fL MCH 24.5 L (27.0-33.0) pg MCHC 30.8 L (31.0-35.0) g/dl RDW 17.4 H (11.0-16.0) % Plt Count 302 (160-400) X10*3/uL MPV 9.8 (9.4-12.3) fL Immature Gran % (Auto) 0.4 (0.0-0.4) % Neut % (Auto) 81.2 H (45-73) % Lymph % (Auto) 10.3 L (20-40) % [place] % (Auto) 5.4 (2-11) % Eos % (Auto) 1.9 (0-4) % Baso % (Auto) 0.8 (0-2) % Lymph # (Auto) 1.1 L (1.2-4.9) X10*3/uL [place] # (Auto) 0.6 (0.1-1.2) X10*3/uL Eos # (Auto) 0.2 (0.0-0.4) X10*3/uL Baso # (Auto) 0.1 (0.0-0.2) X10*3/uL Abs Immat Gran (auto) 0.04 H (0.00-0.03) X10*3/uL Absolute Neuts (auto) 8.3 (2.0-8.3) x10*3/uL Absolute Nucleated RBC 0.000 (0.0-0.012) X10*3/uL Nucleated RBC % (auto) 0.0 (0.0-0.2) /100WBC Sodium 141 (135-145) mmol/L Potassium 3.8 (3.3-5.1) mmol/L Chloride 103 (96-108) mmol/L Carbon Dioxide 25 (22-29) mmol/L Anion Gap 17 (12-20) BUN 23 H (9-16) mg/dL Creatinine 0.99 (0.5-1.4) mg/dL Estim Creat Clear Calc 51.1 Estimated GFR 55 Random Glucose 151 H (60-115) mg/dL Calcium 8.9 (8.4-10.2) mg/dL Magnesium 2.0 (1.6-2.6) mg/dL Total Bilirubin 0.6 (0.0-1.0) mg/dL AST 33 H (5-31) U/L ALT 48 H (0-31) U/L Alkaline Phosphatase 204 H (39-117) U/L Total Protein 7.4 (6.5-8.0) g/dL Albumin 4.1 (3.5-5.0) g/dL Lipase 23 (8-78) U/L Influenza Type A (PCR) NEGATIVE (Negative) Influenza Type B (PCR) NEGATIVE (Negative) RSV RNA Qual (PCR) NEGATIVE (Negative) SARS-CoV-2 RNA (RT-PCR) NEGATIVE (Negative) Critical Care Time Critical Care Time Critical Care Time: Yes Total Critical Care Time: 45 Attestation: I have personally provided critical care time. Time includes review of lab data, radiology results, discussion with consultants, and monitoring for potential decompensation. Intervention performed as documented. Discharge Plan Discharge Clinical Impression: Headache, migraine, Nausea & vomiting Patient Disposition: Home, Self-Care Instructions: Migraine Headache (ED), Acute Nausea and Vomiting (DC) Additional Instructions: Please follow-up with your primary care physician tomorrow. If you have any worsening or new symptoms, please return to the emergency room or call 911 Prescriptions: New sumatriptan succinate 50 mg tablet See Rx Instructions .ROUTE .COMPLEX Qty: 10 0RF Rx Instructions: take 1 tab at onset of headache; if no relief may repeat 1 tab after at least 2 hrs; max = 4 tabs/24 hr metoclopramide HCl [Reglan] 5 mg tablet 5 mg PO DAILY PRN (Reason: nausea and vomiting) Qty: 14 0RF No Action (DME) compr.stocking,thigh,reg,large Misc See Rx Instructions .Route Qty: 2 3RF Rx Instructions: Thigh High compression stockings 10-20mmHg (DME) blood-glucose meter [OneTouch Verio Flex meter] Misc See Rx Instructions .Route Qty: 1 0RF Rx Instructions: As directed (DME) OneTouch Verio test strips Strip See Rx Instructions .Route Qty: 100 11RF Rx Instructions: Test blood sugar 3 times per day (DME) lancets [OneTouch Delica Plus Lancet] 30 gauge misc See Rx Instructions .Route Qty: 100 11RF Rx Instructions: Test blood sugar 3 times per day insulin glargine [Lantus Solostar U-100 Insulin] 100 unit/mL (3 mL) insulin pen 25 unit subcut BEDTIME Qty: 15 3RF montelukast 10 mg tablet 10 mg PO BEDTIME 30 Days Qty: 30 3RF ipratropium-albuterol 0.5 mg-3 mg(2.5 mg base)/3 mL solution for nebulization 3 ml inhalation Q6H PRN (Reason: wheezing) 30 Days Qty: 180 3RF Jardiance 25 mg tablet 25 mg PO DAILY Qty: 90 1RF furosemide 20 mg tablet 20 mg PO DAILY Qty: 90 3RF Ozempic 2 mg/dose (8 mg/3 mL) pen injector 2 mg subcut MCWILLIAMS Qty: 3 2RF (DME) FreeStyle Kelly 2 Sensor Kit See Rx Instructions .ROUTE .MEDSUPPLY Qty: 6 3RF Rx Instructions: As directed every 2 weeks diltiazem HCl 300 mg capsule,extended release 24hr 300 mg PO DAILY Qty: 90 3RF (DME) belgica Misc See Rx Instructions .Route Qty: 1 0RF Rx Instructions: As directed loratadine 10 mg Tablet 10 mg PO DAILY PRN (Reason: Allergy Symptoms) cholecalciferol (vitamin D3) 25 mcg (1,000 unit) Tablet 25 mcg PO DAILY docusate sodium 100 mg Capsule 100 mg PO BID PRN (Reason: Constipation) Qty: 30 0RF acetaminophen 325 mg Tablet 650 mg PO Q6H PRN (Reason: pain) Qty: 30 0RF albuterol sulfate 90 mcg/actuation Hfa Aerosol Inhaler 2 puff INHALATION QID PRN (Reason: SOB/wheezing) citalopram 20 mg tablet 20 mg PO DAILY budesonide-formoterol [Symbicort] 160-4.5 mcg/actuation HFA aerosol inhaler 2 puff INHALATION BID PRN (Reason: SOB) simethicone 80 mg tablet,chewable 80 mg PO QID PRN (Reason: gas) sennosides-docusate sodium [Stimulant Laxative Plus] 8.6-50 mg tablet 2 tab PO BID PRN oxycodone 5 mg tablet 5 mg PO Q6H PRN (Reason: pain) Qty: 12 0RF Rx Instructions: Partial Fill upon patient request. prochlorperazine maleate 10 mg tablet 10 mg PO Q6H PRN (Reason: headache) Qty: 10 0RF atorvastatin 80 mg tablet 80 mg PO BEDTIME ipratropium-albuterol 0.5 mg-3 mg(2.5 mg base)/3 mL solution for nebulization 3 ml inhalation Q8H PRN (Reason: wheezing) Qty: 180 3RF buspirone 10 mg tablet 10 mg PO BID Qty: 180 1RF carvedilol 6.25 mg tablet 6.25 mg PO BID 90 Days Qty: 180 3RF Rx Instructions: must administer with a meal/food Eliquis 5 mg tablet 5 mg PO BID Qty: 180 3RF pantoprazole 40 mg tablet,delayed release (DR/EC) 40 mg PO .qd Qty: 90 3RF insulin lispro [Humalog KwikPen Insulin] 100 unit/mL insulin pen 1 sliding scale dose SUBCUT USEASDIRECTD Qty: 15 5RF Rx Instructions: <100, no Humalog, 100-150 6 units, 150-200 10 units, >200 14 units, before each meal, TID Print Language: Chilean
[2025-01-21 18:56] VITALS: BP 172/105; PULSE 93; RESP 110; O2SAT 93; BMI 32.3
[2025-01-21] MEDS: Ondansetron ODT 4 MG TAB.RAPDIS TRANSLINGU (19:03)
[2025-01-21 19:24] LABS: MANUAL DIFF FLAG NO
[2025-01-21 19:43] LABS: Basophils Absolute Auto 0.1 X10*3/uL (0.0-0.2); Basophils Percent Auto 0.8 % (0-2); Eosinophils Absolute Auto 0.2 X10*3/uL (0.0-0.4); Eosinophils Percent Auto 1.9 % (0-4); Imm Gran Abs Auto 0.04 X10*3/uL (0.00-0.03); Imm Gran Pct Auto 0.4 % (0.0-0.4); Lymphocytes Absolute Auto 1.1 X10*3/uL (1.2-4.9); Lymphocytes Percent Auto 10.3 % (20-40); Mean Corpuscular HGB Conc 30.8 g/dl (31.0-35.0); Mean Corpuscular Hemoglobin 24.5 pg (27.0-33.0); Mean Corpuscular Volume 79.6 fL (80.0-98.0); Mean Platelet Volume 9.8 fL (9.4-12.3); Monocytes Absolute Auto 0.6 X10*3/uL (0.1-1.2); Monocytes Percent Auto 5.4 % (2-11); Neutrophils Absolute Auto 8.3 x10*3/uL (2.0-8.3); Neutrophils Percent Auto 81.2 % (45-73); Platelet Count 302 X10*3/uL (160-400); Red Cell Distribution Width 17.4 % (11.0-16.0); White Blood Count 10.2 X10*3/uL (4.8-10.8)
[2025-01-21 19:48] LABS: Alanine Aminotransferase 48 U/L (0-31); Albumin Level 4.1 g/dL (3.5-5.0); Alkaline Phosphatase 204 U/L (39-117); Anion Gap 17 (12-20); Aspartate Amino Transferase 33 U/L (5-31); Bilirubin Total 0.6 mg/dL (0.0-1.0); Blood Urea Nitrogen 23 mg/dL (9-16); Calcium 8.9 mg/dL (8.4-10.2); Carbon Dioxide 25 mmol/L (22-29); Chloride 103 mmol/L (96-108); Creatinine Clr Calc Pharmacy 51.1; Estimated Glomerular Filt Rate 55; Glucose Random 151 mg/dL (60-115); Lipase 23 U/L (8-78); Potassium 3.8 mmol/L (3.3-5.1); Sodium 141 mmol/L (135-145); Total Protein 7.4 g/dL (6.5-8.0)
[2025-01-21 20:06] LABS: Influenza A PCR NEGATIVE (Negative); Influenza B PCR NEGATIVE (Negative); Resp Syncy Virus RNA Qual PCR NEGATIVE (Negative); SARS COV2 PCR INHOUSE NEGATIVE (Negative)
[2025-01-21 22:30] VITALS: BP 181/57; PULSE 90; RESP 18; TEMP 36.9; O2SAT 95
[2025-01-21] MEDS: Acetaminophen 325 MG TABLET 975 MG PO (23:09)
[2025-01-21 23:14] VITALS: BP 193/66; PULSE 96; RESP 19; TEMP 36.8; O2SAT 94
[2025-01-22] MEDS: Metoclopramide HCl 10 MG/2 ML VIAL IVPUSH (00:59)
[2025-01-22] MEDS: Morphine Sulfate 2 MG/ML CARTRIDGE IVPUSH (00:59)
[2025-01-22] MEDS: 0.9 % Sodium Chloride 1,000 ML 999 ML IVCONT (00:59)
[2025-01-22] MEDS: diphenhydrAMINE HCL 50 MG/ML VIAL 25 MG IVPUSH (00:59)
[2025-01-22 02:12] VITALS: BP 148/48; PULSE 85; RESP 16; TEMP 37.4; O2SAT 92
[2025-01-22 02:34] VITALS: BP 148/48; PULSE 85; RESP 16; TEMP 37.4; O2SAT 92
== END 2025-01-22 02:48 | disposition home or self-care (01) ==
PROVIDERS: Physician Assistant Medical; Emergency Provider Emergency Medicine; PCP Internal Medicine
DX: G43.909 Migraine, unspecified, not intractable, without status migrainosus (principal); R11.2 Nausea with vomiting, unspecified; Z03.818 Encounter for observation for suspected exposure to other biological agents ruled out; J45.909 Unspecified asthma, uncomplicated; Z79.899 Other long term (current) drug therapy
CPT/HCPCS: 0241U; 70450; 80053; 83690; 83735; 85025; 96361; 96374; 96375; 99284; J1200; J2270; J2765

== ENCOUNTER → 2025-01-21 18:58 | Outpatient (BNV) | payer MEDICARE, SELFPAY | PROVIDERS: PCP Internal Medicine; Visit Provider Radiology Diagnostic Radiology | DX: R51.9 Headache, unspecified (principal); R11.10 Vomiting, unspecified; Z79.01 Long term (current) use of anticoagulants | CPT/HCPCS: 70450 ==

== ENCOUNTER 2025-01-25 14:02 | Outpatient (AMB) | payer MEDICARE, SELFPAY ==
--- NOTE | 2025-01-25 14:04 | A.OFFPC_ITS ---
Vital Signs 01/25/25 14:05 Height 5 ft 4 in Weight 189 lb BMI 32.4 BP 116/60 Blood Pressure Location Lt brachial Position Sitting Respiration 18 Pulse 78 Pulse Source Pulse Oximeter Temp 98.8 F Temp Source Oral Pulse Oximetry (%) 97 Oxygen Delivery Method Room Air Intake Visit Reasons: ER follow up after fall Intake Note: Pt is here today for ER follow up visit. Allergies Latex, Natural Rubber Allergy (Severe, Verified 01/21/25 18:59) blisters Sulfa (Sulfonamide Antibiotics) [SULFA (SULFONAMIDE ANTIBIOTICS)] Allergy (Mild, Verified 01/21/25 18:59) ITCHING, rash nystatin Allergy (Unknown, Verified 01/21/25 18:59) rash isosorbide [From Imdur] Adverse Reaction (Unknown, Verified 01/21/25 18:59) HEADACHES, headache tizanidine Adverse Reaction (Unknown, Verified 01/21/25 18:59) weakness, Hellucination Medication List - Last Reconciled 01/25/25 by Amanda Leiva MD acetaminophen 650 mg (2 x 325 mg) PO Q6H PRN albuterol sulfate 90 mcg/actuation 2 puffs inhalation QID PRN apixaban (Eliquis) 5 mg PO BID atorvastatin 80 mg PO BEDTIME blood sugar diagnostic (DaixeTouch Verio test strips) Test blood sugar 3 times per day blood-glucose meter (OneTouch Verio Flex Meter) As directed budesonide-formoterol 160-4.5 mcg/actuation (Symbicort) 2 puffs inhalation BID PRN buspirone 10 mg PO BID carvedilol 6.25 mg PO BID 90 days cholecalciferol (vitamin D3) 25 mcg PO DAILY citalopram 20 mg PO DAILY compr.stocking,thigh,reg,large Thigh High compression stockings 10-20mmHg diltiazem HCl ER 300 mg PO DAILY docusate sodium 100 mg PO BID PRN empagliflozin (Jardiance) 25 mg PO DAILY flash glucose sensor (FreeStyle Kelly 2 Sensor kit) As directed every 2 weeks furosemide 20 mg PO DAILY insulin glargine (Lantus Solostar U-100 Insulin) 25 units (0.25 mL) subcut BEDTIME insulin lispro (Humalog KwikPen (U-100) Insulin) 1 sliding scale dose subcut USEASDIRECTD ipratropium-albuterol 0.5 mg-3 mg(2.5 mg base)/3 mL 3 mL inhalation Q8H PRN ipratropium-albuterol 0.5 mg-3 mg(2.5 mg base)/3 mL 3 mL inhalation Q6H PRN 30 days lancets (OneTouch Delica Plus Lancet) Test blood sugar 3 times per day loratadine 10 mg PO DAILY PRN metoclopramide HCl (Reglan) 5 mg PO DAILY PRN montelukast 10 mg PO BEDTIME 30 days Ozempic (semaglutide) 2 mg (0.75 mL) subcut MCWILLIAMS NS pantoprazole 40 mg PO .qd prochlorperazine maleate 10 mg PO Q6H PRN sennosides-docusate sodium 8.6-50 mg (Stimulant Laxative Plus) 2 tabs PO BID PRN simethicone 80 mg PO QID PRN sumatriptan succinate take 1 tab at onset of headache; if no relief may repeat 1 tab after at least 2 hrs; max = 4 tabs/24 hr walker As directed Tobacco use date assessed: 01/25/25 Fall risk assessment: 1 Fall in past year Last assessed Fall Risk: 01/25/25 Dental Screening Dental Screen Date: 12/14/24 HPI ER follow up after fall HPI Details Patient presents for the follow-up of ER visit. She tripped and fell down 2 weeks ago hitting the back of her head and neck. Patient complains of persistent headache, neck pain stiffness, light sensitivity, nausea and intermittent vomiting. She was prescribed sumatriptan with prochlorperazine for the headaches which has not been helpful. Patient was found to have diabetic retinopathy with hemorrhage in the left eye causing blurred vision and has an appointment with retina specialist. 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 Father No problems noted. Brother Substance use disorder Brother Substance use disorder Social History Household Members: Family Household Members Other:: 2 Housing: House Do you presently have visiting nurse or other home services: No Alcohol intake: former Patient Tobacco Use Status: Former Tobacco user Tobacco use type: Cigarette Cigarettes Per Day: 10 Years Smoked: 3 e-Cigarette/Vaping Use: Never Used Second Hand Smoke Exposure: No Advance Directives Date on File: 06/29/23 service: No Current occupational status: retired Cognitive needs: No Hearing needs: No Vision needs: No Questionnaire Thrive Questionnaire Date Thrive assessed: 12/14/24 I am a: Patient What is your living situation today?: I have a steady place to live Within the past 12 months, did the food you bought not last and you didn't have the money to get more?: Never true Within the past 12 months, did you worry whether your food would run out before you got money to buy more?: Never true Do you have trouble paying for medicines?: No Do you have trouble getting transportation to medical appointments?: No Do you have trouble paying your heating and electricity bill?: No Do you have trouble taking care of your child, family member or friend?: No Do you have trouble with day-to-day activities such as bathing, preparing meals, shopping, managing finances, etc.?: No Are you currently unemployed and looking for a job?: No Are you interested in more education?: No Please select the resources that you would like help with: None THRIVE Score: 0 DOMINIQUE-7 AMB Questionnaire DOMINIQUE-7 Date DOMINIQUE - 7 assessed: 12/14/24 Source: Developed by Drs. Jeronimo Wallis, Saige B.W. Nj Barrios and colleagues, with an educational katharine from [employer] Review of Systems Const All systems reviewed & are unremarkable except as noted in HPI and below Eyes Reports no additional complaints ENT Reports no additional complaints Card Reports no additional complaints Resp Reports no additional complaints GI Reports no additional complaints Reports no additional complaints Physical exam (Primary Care) Vital Signs: Last Vital Signs Temp 98.8 F 01/25/25 14:05 Pulse 78 01/25/25 14:05 Resp 18 01/25/25 14:05 BP 116/60 01/25/25 14:05 Pulse Ox 97 01/25/25 14:05 Oxygen Delivery Method Room Air 01/25/25 14:05 BMI result Body Mass Index 32.4 Tobacco/Smoking Status: Tobacco use Status Tobacco use date assessed 01/25/25 01/25/25 14:21 Patient Tobacco Use Status Former Tobacco user 01/25/25 14:06 Tobacco use type Cigarette 01/25/25 14:06 e-Cigarette/Vaping Use Never Used 01/25/25 14:06 Thrive Assessment: Date of Thrive Assessment Date Thrive assessed 12/14/24 01/25/25 14:06 Const General: no acute distress HENMT Head: Yes normal to inspection Eyes General: appearance normal, both eyes and all related structures Neck Other: Paraspinal tenderness in the mid cervical region Neck: Yes no lymphadenopathy and Yes supple Resp Effort & Inspection: normal respiratory effort Auscultation: clear to auscultation bilaterally Cardio Rhythm: regular rhythm Heart sounds: S1 normal heart sound present and S2 normal heart sound present Coding Level of Care Code Est Pt Level 4 (22029) Diagnoses Neck pain M54.2 Balance disorder R26.89 Post-concussion headache G44.309 DM type 2 (diabetes mellitus, type 2) E11.9 Assessment & Plan Assessment & Plan (1) Neck pain: Code(s): M54.2 - Cervicalgia Category: Medical Plan: For whiplash neck injury and postconcussion headaches gabapentin 100 mg 3 times a day is prescribed, patient will be referred to physical therapy (2) Balance disorder: Code(s): R26.89 - Other abnormalities of gait and mobility Category: Medical Plan: Referred to physical therapy after patient completes therapy for a neck pain (3) Post-concussion headache: Code(s): G44.309 - Post-traumatic headache, unspecified, not intractable Category: Medical Plan: Try gabapentin 100 mg 3 times a day p.r.n. follow-up in 1-2 months (4) DM type 2 (diabetes mellitus, type 2): Code(s): E11.9 - Type 2 diabetes mellitus without complications Category: Medical Plan: Continue current medications follow-up with retina specialist for diabetic retinopathy Orders: Orders PT Evaluation and Treatment Today M54.2 - Cervicalgia PT Evaluation and Treatment Today R26.89 - Other abnormalities of gait and mobility Medications: New gabapentin 100 mg PO TID 90 caps 0RF
[2025-01-25 14:05] VITALS: BP 116/60; PULSE 78; RESP 18; TEMP 37.1; O2SAT 97; BMI 32.4
--- OUTSIDE RECORDS SUMMARY | 2025-01-25 14:09 | XMS_ITS | Clinical Summary ---
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
== END 2025-01-25 15:03 | disposition home or self-care (01) ==
LOC: HO.HMCC 14:02
PROVIDERS: PCP Internal Medicine; Visit Provider Internal Medicine
DX: M54.2 Cervicalgia (principal); R26.89 Other abnormalities of gait and mobility; G44.309 Post-traumatic headache, unspecified, not intractable; E11.9 Type 2 diabetes mellitus without complications

== ENCOUNTER → 2025-01-25 14:02 | Outpatient (BNVA) | payer MEDICARE, SELFPAY | PROVIDERS: PCP Internal Medicine; Visit Provider Internal Medicine | DX: S13.4XXD Sprain of ligaments of cervical spine, subsequent encounter (principal); G44.309 Post-traumatic headache, unspecified, not intractable; R26.89 Other abnormalities of gait and mobility; I10 Essential (primary) hypertension; E11.9 Type 2 diabetes mellitus without complications; W01.0XXD Fall on same level from slipping, tripping and stumbling without subsequent striking against object, subsequent encounter | CPT/HCPCS: 99212 ==

== ENCOUNTER 2025-03-13 13:35 | Outpatient (AMB) | payer MEDICARE, SELFPAY ==
[2025-03-13 13:42] VITALS: BP 140/58; PULSE 100; O2SAT 96; BMI 31.8
--- NOTE | 2025-03-13 13:42 | A.OFFVIS_ITS ---
Vital Signs 03/13/25 13:42 Height 5 ft 4 in Weight 185 lb 3.013 oz BMI 31.8 BP 140/58 H Blood Pressure Location Lt brachial Position Sitting Pulse 100 Pulse Source Pulse Oximeter Pulse Oximetry (%) 96 Oxygen Delivery Method Room Air Intake Visit Reasons: COPD Intake Note: pt is here for follow up and states she does have a cough with mucous and some wheeze. Multimedia Services Coordinator Required: No Allergies Latex, Natural Rubber Allergy (Severe, Verified 03/13/25 13:58) blisters Sulfa (Sulfonamide Antibiotics) (SULFA (SULFONAMIDE ANTIBIOTICS)) Allergy (Mild, Verified 03/13/25 13:58) ITCHING, rash nystatin Allergy (Unknown, Verified 03/13/25 13:58) rash isosorbide (From Imdur) Adverse Reaction (Unknown, Verified 03/13/25 13:58) HEADACHES, headache tizanidine Adverse Reaction (Unknown, Verified 03/13/25 13:58) weakness, Hellucination Medication List - Last Reconciled 03/13/25 by Bart Bernard MD acetaminophen 650 mg (2 x 325 mg) PO Q6H PRN albuterol sulfate 90 mcg/actuation 2 puffs inhalation QID PRN apixaban (Eliquis) 5 mg PO BID atorvastatin 80 mg PO BEDTIME blood sugar diagnostic (Exclusively.inuch Verio test strips) Test blood sugar 3 times per day blood-glucose meter (OneTouch Verio Flex Meter) As directed budesonide-formoterol 160-4.5 mcg/actuation (Symbicort) 2 puffs inhalation BID PRN buspirone 10 mg PO BID carvedilol 6.25 mg PO BID 90 days cholecalciferol (vitamin D3) 25 mcg PO DAILY citalopram 30 mg (1.5 x 20 mg) PO DAILY compr.stocking,thigh,reg,large Thigh High compression stockings 10-20mmHg diltiazem HCl ER 300 mg PO DAILY docusate sodium 100 mg PO BID PRN empagliflozin (Jardiance) 25 mg PO DAILY flash glucose sensor (FreeStyle Kelly 2 Sensor kit) As directed every 2 weeks furosemide 20 mg PO DAILY gabapentin 100 mg PO TID insulin glargine (Lantus Solostar U-100 Insulin) 25 units (0.25 mL) subcut BEDTIME insulin lispro (Humalog KwikPen (U-100) Insulin) 1 sliding scale dose subcut USEASDIRECTD ipratropium-albuterol 0.5 mg-3 mg(2.5 mg base)/3 mL 3 mL inhalation Q6H PRN 30 days lancets (OneTouch Delica Plus Lancet) Test blood sugar 3 times per day loratadine 10 mg PO DAILY PRN metoclopramide HCl (Reglan) 5 mg PO DAILY PRN montelukast 10 mg PO BEDTIME 30 days pantoprazole 40 mg PO .qd prochlorperazine maleate 10 mg PO Q6H PRN semaglutide (Ozempic) 2 mg (0.75 mL) subcut QWEEK sennosides-docusate sodium 8.6-50 mg (Stimulant Laxative Plus) 2 tabs PO BID PRN simethicone 80 mg PO QID PRN sumatriptan succinate take 1 tab at onset of headache; if no relief may repeat 1 tab after at least 2 hrs; max = 4 tabs/24 hr walker As directed Do you need a note to return to daycare/school/sports/work: No HPI HPI COPD: Details: LEO IS 74 YEARS OLD VERY PLEASANT FEMALE, A CASE OF MODERATE OBESITY/SLEEP APNEA. BUT DOES NOT USE CPAP AND CLAIMS THAT SHE SLEEPS VERY WELL AT LEAST FOR 6-7 HOURS EVERY NIGHT. SHE ALSO HAS MODERATELY SEVERE OBSTRUCTIVE AIRWAY DISORDER, WITH PAST HISTORY OF TRACHEAL STENOSIS FROM PROLONGED INTUBATION, BUT SINCE SHE HAS HAD TRACHEO PLASTY SHE IS DOING WELL. FOR HER COPD WHICH IS MOSTLY STABLE SHE IS SUPPOSED TO USE SYMBICORT 2 PUFFS B.I.D. BUT SHE IS ACTUALLY USING IT NOW ONLY NEEDED. AND SHE DOES NOT NEED TO USE THE RESCUE INHALER. ACCORDING TO THE FAMILY MEMBERS, SHE DOES HAVE SOME SHORTNESS OF BREATH AND WHEEZING WHEN SHE WALKS OUTDOORS, AND SHE DOES HAVE MORE COUGH THAN USUAL. SHE HAS HAD NO EPISODES OF RESPIRATORY INFECTION. 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 Vitamin D deficiency DM type 2 (diabetes mellitus, type 2) CAD (coronary artery disease) Non-ST elevation [place] (NSTEMI) Patellofemoral arthritis of right knee Right knee pain longterm current use of anticoagulant Abnormal stress test Hypertension Obstructive sleep apnea Asthma with COPD Anemia CKD stage 3 due to type 2 diabetes mellitus Tracheomalacia, acquired History of pulmonary embolism AG (acute kidney injury) Paroxysmal atrial fibrillation Pulmonary embolism Obesity Dyslipidemia Respiratory failure COPD (chronic obstructive pulmonary disease) Surgical History History of carpal tunnel surgery History of cholecystectomy History of lobectomy of lung Status post tracheoplasty History of cardiac cath Family History Mother No problems noted. Father No problems noted. Brother Substance use disorder Brother Substance use disorder Social History Household Members: Family Household Members Other:: 2 Housing: House Do you presently have visiting nurse or other home services: No Alcohol intake: former Patient Tobacco Use Status: Former Tobacco user Tobacco use type: Cigarette Cigarettes Per Day: 10 Years Smoked: 3 e-Cigarette/Vaping Use: Never Used Second Hand Smoke Exposure: No Advance Directives Date on File: 06/29/23 service: No Current occupational status: retired Cognitive needs: No Hearing needs: No Vision needs: No Review of Systems Const All systems reviewed & are unremarkable except as noted in HPI and below ENT Reports nasal congestion (off and on . ) Card Denies chest pain, Denies irregular heart rhythm, Denies leg edema and Reports dyspnea on exertion Resp Reports cough (mild off and on ), Reports dyspnea on exertion and Denies wheezing GI Denies no additional complaints Musc Reports no additional complaints Neuro Reports no additional complaints Psych Reports no additional complaints Aller/Immun Denies wheezing Physical Exam Vital Signs: Last Vital Signs Pulse 100 03/13/25 13:42 BP 140/58 H 03/13/25 13:42 Pulse Ox 96 03/13/25 13:42 Oxygen Delivery Method Room Air 03/13/25 13:42 BMI result Body Mass Index 31.8 Const General: healthy appearing, comfortable, no acute distress, alert and awake Orientation/consciousness: patient oriented x3 HEENT Head: Yes normal to inspection General nose exam: No nasal polyps present and No nasal discharge present Face and sinus: Yes sinuses nontender Mouth: oropharynx normal Throat: Yes posterior oropharynx normal Eyes General: appearance normal, both eyes and all related structures Neck Neck: Yes normal visual inspection, Yes no lymphadenopathy, Yes trachea midline, Yes no JVD and Yes other (The medial end of the right clavicle is slightly tender.) Thyroid: Thyroid normal Chest Chest palpation & inspection: normal inspection of the chest, normal palpation of entire chest wall and no tenderness Breast/axilla inspection: Other (Scar over the right upper chest from previous thoracic surgery) Resp Other: Percussion note is resonant, breath sounds are distant but equal on both sides. No audible wheezes or crepitations. Cardio Palpation: normal PMI Rate: regular rate Rhythm: regular rhythm Heart sounds: no gallops and no murmurs GI Inspection: Yes other (There is ventral herniation in the upper part of the abdomen) Palpation (GI): Soft to palpation, nontender, No hepatosplenomegaly present and no masses Auscultation: normal bowel sounds Back/Spine/Pelvis Thoracic/Lumbar Spine: thoracic and lumbar spine normal to inspection Skin General skin exam: no rashes or lesions noted Neuro General: patient oriented x3 and no focal motor deficits Cranial nerves: Yes CN's II-XII intact bilaterally Extrem General: Yes normal to inspection, Yes no clubbing, cyanosis or edema and Yes no calf tenderness Psych Appearance: grossly normal and well kempt Speech and movement: Normal speech and movement present Assessment & Plan Assessment & Plan (1) Asthma with COPD: Comment: PATIENT HAS LONGSTANDING HISTORY OF BRONCHIAL ASTHMA/COPD. AFTER PROLONGED INTUBATION SHE HAD DEVELOPED TRACHEOMALACIA IN 2009 . SHE UNDERWENT TRACHEO PLASTY AT [facility] , LOST FOLLOW-UP OVER THERE WAS IN 2021 INCLUDING A BRONCHOSCOPY AND THERE WAS NO EVIDENCE OF TRACHEOMALACIA. HER MAINTENANCE MEDICAL REGIMEN INCLUDES SYMBICORT 160-4.5 2 PUFFS B.I.D., SHE IS NOT USING SYMBICORT REGULARLY, USES ONLY IF SHE HAS ANY BOUTS OF WHEEZING. HOWEVER ACCORDING TO THE FAMILY MEMBERS SHE IS NOTICED TO BE HAVING MORE SHORTNESS OF BREATH AND WHEEZING WHEN SHE WALKS. Code(s): J44.89 - Other specified chronic obstructive pulmonary disease Category: Medical Plan: SHE IS ADVISED TO USE SYMBICORT 160-4.52 PUFFS AT LEAST IN THE MORNING REGULARLY, AND USED 2 PUFFS IN THE EVENING IF SHE FEELS LIKE HAVING SOME WHEEZING OR SHORTNESS OF BREATH. ALSO USE IPRATROPIUM-ALBUTEROL SOLUTION IN THE NEBULIZER Q 6 HOURS P.R.N. WHEN AT HOME. FOR OUTDOORS KEEP ALBUTEROL HFA ON HAND TO USE P.R.N. IF ANY WHEEZING OR COUGH. (2) Obstructive sleep apnea: Comment: SHE HAS CHRONIC OBSTRUCTIVE SLEEP APNEA/HYPOVENTILATION SYNDROME. She used to be on CPAP therapy. But has not used the CPAP since 2020. Recently admitted to [facility] with an acute exacerbation of COPD. She was treated with the CPAP and she tolerated it well She had a sleep study at [facility], and she did respond to CPAP of 10 cm. A new CPAP device was ordered which she does have at home , and it is functional. However she has not used the CPAP. Claiming that she does not like to have the moisture on her face. On her last visit her machine was checked and we had explained to her how to use the humidification chamber. Still she has not been using regularly. She claims that she is sleeping well at least for 6-7 hours every night, without the CPAP. Code(s): G47.33 - Obstructive sleep apnea (adult) (pediatric) Category: Medical Plan: Advised to try to sleep in lateral positions and not her back . Try to lose some weight. Coding Level of Care Code Est Pt Level 3 (63486) Diagnoses Asthma with COPD J44.89 Obstructive sleep apnea G47.33
--- OUTSIDE RECORDS SUMMARY | 2025-03-13 14:19 | XMS_ITS | Clinical Summary ---
Author Organization [facility] Facility Address [address] [place] [address] Care Team Providers Care Line Erector Apprentice Name Role Phone Unavailable Primary Care Provider [...] Visual Foot Exam 10/17/2021 Influenza Vaccine (#1) 2025 06/25/2007 Pneumococcal Vaccine: Peds ( 0 to 5 Years) and At-Risk Patients (6 to 49 Years) Discontinued 07/07/2010, 10/25/2004 Hepatitis B Vaccine Aged Out No longe r eligible based on patient's age to complete this topic Insurance Medicare Medicare
--- OUTSIDE RECORDS SUMMARY | 2025-03-13 14:19 | XMS_ITS | Clinical Summary ---
Author Organization [facility] it Address [id number] [place] [id number] Care Team Providers Care Pattern Chain Builder Name Role Phone Ben Borges MD Primary Care Provider [phone] Immunizations Name Administration Dates Next Due Pfizer [...] 5 season) 2024 12/17/2021 Influenza Vaccine (#1) 2025 HIB Vaccines Aged Out No longer [...] age to complete this topic Care Teams Pattern Chain Builder Relationship Specialty Start Date End Date Ben Borges MD [address] [place] [address] PCP - General Internal Medicine 05/04/22
== END 2025-03-13 13:57 | disposition home or self-care (01) ==
LOC: HO.HPS 13:35
PROVIDERS: PCP Internal Medicine; Visit Provider Internal Medicine
DX: J44.89 Other specified chronic obstructive pulmonary disease (principal); G47.33 Obstructive sleep apnea (adult) (pediatric)
CPT/HCPCS: 99213

== ENCOUNTER → 2025-03-13 13:35 | Outpatient (BNVA) | payer MEDICARE, SELFPAY | PROVIDERS: PCP Internal Medicine; Visit Provider Internal Medicine | DX: J44.89 Other specified chronic obstructive pulmonary disease (principal); G47.33 Obstructive sleep apnea (adult) (pediatric) | CPT/HCPCS: 99212 ==

== ENCOUNTER 2025-04-06 13:29 | Outpatient (AMB) | payer MEDICARE, SELFPAY ==
--- NOTE | 2025-04-06 13:31 | MHC.PC.OV ---
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 Required: No Accompanied by: Self / Same As Patient Allergies Latex, Natural Rubber Allergy (Severe, Verified 04/06/25 13:32) blisters Sulfa (Sulfonamide Antibiotics) (SULFA (SULFONAMIDE ANTIBIOTICS)) Allergy (Mild, Verified 04/06/25 13:32) ITCHING, rash nystatin Allergy (Unknown, Verified 04/06/25 13:32) rash isosorbide (From Imdur) Adverse Reaction (Unknown, Verified 04/06/25 13:32) HEADACHES, headache tizanidine Adverse Reaction (Unknown, Verified 04/06/25 13:32) weakness, Hellucination Medication List - Last Reconciled 04/06/25 by Garland Vázquez MD acetaminophen 650 mg (2 x 325 mg) PO Q6H PRN albuterol sulfate 90 mcg/actuation 2 puffs inhalation QID PRN apixaban (Eliquis) 5 mg PO BID atorvastatin 80 mg PO BEDTIME blood sugar diagnostic (FullscreenTouch Verio test strips) Test blood sugar 3 times per day blood-glucose meter (OneTouch Verio Flex Meter) As directed budesonide-formoterol 160-4.5 mcg/actuation (Symbicort) 2 puffs inhalation BID PRN buspirone 10 mg PO BID carvedilol 6.25 mg PO BID 90 days cholecalciferol (vitamin D3) 25 mcg PO DAILY citalopram 30 mg (1.5 x 20 mg) PO DAILY compr.stocking,thigh,reg,large Thigh High compression stockings 10-20mmHg diltiazem HCl ER 300 mg PO DAILY docusate sodium 100 mg PO BID PRN empagliflozin (Jardiance) 25 mg PO DAILY flash glucose sensor (FreeStyle Kelly 2 Sensor kit) As directed every 2 weeks furosemide 20 mg PO DAILY insulin glargine (Lantus Solostar U-100 Insulin) 25 units (0.25 mL) subcut BEDTIME insulin lispro (Humalog KwikPen (U-100) Insulin) 1 sliding scale dose subcut USEASDIRECTD ipratropium-albuterol 0.5 mg-3 mg(2.5 mg base)/3 mL 3 mL inhalation Q6H PRN 30 days lancets (OneTouch Delica Plus Lancet) Test blood sugar 3 times per day loratadine 10 mg PO DAILY PRN montelukast 10 mg PO BEDTIME 30 days pantoprazole 40 mg PO .qd semaglutide (Ozempic) 2 mg (0.75 mL) subcut QWEEK sennosides-docusate sodium 8.6-50 mg (Stimulant Laxative Plus) 2 tabs PO BID PRN sumatriptan succinate take 1 tab at onset of headache; if no relief may repeat 1 tab after at least 2 hrs; max = 4 tabs/24 hr walker As directed Tobacco use date assessed: 04/06/25 Fall risk assessment: 2 + Falls in past year Last assessed Fall Risk: 04/06/25 Dental Screening Dental Screen Date: 04/06/25 Did you have a dental visit in the last 12 months?: No Did you have a dental problem in the last 6 months where you did not have access to dental care?: No Was dental information given to patient?: No [facility] Medical History halfway (current) use of insulin Vitamin D deficiency DM type 2 (diabetes mellitus, type 2) CAD (coronary artery disease) Non-ST elevation [place] (NSTEMI) Patellofemoral arthritis of right knee Right knee pain 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 Father No problems noted. Brother Substance use disorder Brother Substance use disorder Social History (Updated 04/06/25 @ 14:29 by Garland Vázquez MD) Household Members: Family Household Members Other:: 2 Housing: House Do you presently have visiting nurse or other home services: No Alcohol intake: former Comment: brinda Patient Tobacco Use Status: Former Tobacco user Tobacco use type: Cigarette Cigarettes Per Day: 10 Years Smoked: 3 stopped 1992 e-Cigarette/Vaping Use: Never Used Second Hand Smoke Exposure: No Advance Directives Date on File: 06/29/23 service: No Current occupational status: retired Cognitive needs: No Hearing needs: No Vision needs: No Questionnaire PHQ-9 Over the last 2 weeks, how often have you been bothered by any of the following problems? 1. Little interest or pleasure in doing things: more than half the days 2. Feeling down, depressed, or hopeless: not at all 3. Trouble falling or staying asleep, or sleeping too much: several days 4. Feeling tired or having little energy: nearly every day 5. Poor appetite or overeating: nearly every day 6. Feeling bad about yourself - or that you are a failure or have let yourself or your family down: not at all 7. Trouble concentrating on things, such as reading the newspaper or watching television: not at all 8. Moving or speaking so slowly that other people could have noticed. Or the opposite - being so fidgety or restless that you have been moving around a lot more than usual: more than half the days 9. Thoughts that you would be better off or of hurting yourself in some way: not at all Total score: 11 Depression Screening Interpretation: Positive (increase Buspar 10 mg bid, cont citalopram, pt declined counseling) Depression Screening Follow-up: Existing condition and In treatment Depression Screening Done: Yes Source: Developed by Drs. Jeronimo Wallis, Saige Barrios, Nj Will and colleagues, with an educational katharine from [employer]. Thrive Questionnaire Date Thrive assessed: 04/06/25 I am a: Patient What is your living situation today?: I have a steady place to live Within the past 12 months, did the food you bought not last and you didn't have the money to get more?: Never true Within the past 12 months, did you worry whether your food would run out before you got money to buy more?: Never true Do you have trouble paying for medicines?: No Do you have trouble getting transportation to medical appointments?: No Do you have trouble paying your heating and electricity bill?: No Do you have trouble taking care of your child, family member or friend?: No Do you have trouble with day-to-day activities such as bathing, preparing meals, shopping, managing finances, etc.?: No Are you currently unemployed and looking for a job?: No Are you interested in more education?: No Please select the resources that you would like help with: None THRIVE Score: 0 AUDIT C Alcohol Use Questionnaire (AUDIT-C) 1. How often do you have a drink containing alcohol?: Monthly or less 2. How many drinks containing alcohol do you have on a typical day when you are drinking?: 1 or 2 3. How often do you have six or more drinks on one occasion?: Never Total Score: 1 Score Reviewed/Action Taken: Yes DOMINIQUE-7 AMB Questionnaire DOMINIQUE-7 Date DOMINIQUE - 7 assessed: 04/06/25 Feeling nervous, anxious, or on edge: 0 = Not at all Not being able to stop or control worryin = Not at all Worrying too much about different things: 0 = Not at all Trouble relaxin = Not at all Being so restless that it is hard to sit still: 0 = Not at all Becoming easily annoyed or irritable: 0 = Not at all Feeling afraid as if something awful might happen: 0 = Not at all Total DOMINIQUE-7 score (0-4 normal; 5-9 mild; 10-14 moderate; 15-21 severe): 0 Source: Developed by Drs. Jeronimo Wallis, Saige Barrios, Nj Will and colleagues, with an educational katharine from [employer]. Physical exam (Primary Care) Vital Signs: Last Vital Signs Pulse 106 H 04/06/25 13:32 BP 132/70 04/06/25 13:32 Pulse Ox 95 04/06/25 13:32 Oxygen Delivery Method Room Air 04/06/25 13:32 BMI result Body Mass Index 31.9 Tobacco/Smoking Status: Tobacco use Status Tobacco use date assessed 04/06/25 04/06/25 13:34 Patient Tobacco Use Status Former Tobacco user 04/06/25 14:29 Tobacco use type Cigarette 04/06/25 14:29 e-Cigarette/Vaping Use Never Used 04/06/25 14:29 PHQ-9: PHQ-9 Score PHQ-9: Total score 11 04/06/25 14:21 Depression Screening Interpretation: Positive (increase Buspar 10 mg bid, cont citalopram, pt declined counseling) Depression Screening Follow-up: Existing condition and In treatment Thrive Assessment: Date of Thrive Assessment Date Thrive assessed 04/06/25 04/06/25 13:34 Const General: alert; No acute distress Eyes Conjunctivae: conjunctivae normal Resp Auscultation: clear to auscultation bilaterally Cardio Rate: regular rate Rhythm: regular rhythm GI Inspection: Yes normal to inspection Extrem General: Yes normal to inspection and No edema Results AMB Hemoglobin A1c AMB Hemoglobin A1c 7.0 % Last Edit by SAMMY Nelson on 04/06/25 14:03 Results Reviewed Results Reviewed: Laboratory Last Values Hgb A1c (Clinic) 7.0 % (4.0-6.0) H 04/06/25 13:35 Coding Level of Care Code Est Pt Level 4 (81767) Complex EM visit Add On G2211 Diagnoses Primary hypertension I10 Hypertension type: primary hypertension Heart failure with preserved ejection fraction I50.30 Coronary artery disease involving [place] coronary artery of [place] heart with angina pectoris I25.119 Associated angina: with unspecified form of angina Coronary Disease-Associated Artery/Lesion type: [place] artery [place] vs. transplanted heart: [place] heart Paroxysmal atrial fibrillation I48.0 Asthma with COPD J44.89 Obstructive sleep apnea G47.33 Assessment & Plan Assessment & Plan (1) Hypertension: Code(s): I10 - Essential (primary) hypertension Category: Medical Qualifiers: Hypertension type: primary hypertension Qualified Code(s): I10 - Essential (primary) hypertension Plan: Continue with blood pressure medication. Decrease salt intake and exercise patient is taking carvedilol 6.25 mg twice a day diltiazem 300 mg once a day (2) Heart failure with preserved ejection fraction: Comment: Echo 11/2023 EF>70 %, NO REGIONAL WALL MOTION ABNORMALITIES, NORMAL RIGHT VENTRICULAR SYSTOLIC FUNCTION, MILD Code(s): I50.30 - Unspecified diastolic (congestive) heart failure Category: Medical Plan: Continue with diuretic and weigh patient daily on furosemide 20 mg once a day (3) CAD (coronary artery disease): Comment: s/p ARMANI to [facility]X 06/28 Code(s): I25.10 - Atherosclerotic heart disease of [place] coronary artery without angina pectoris Category: Medical Qualifiers: Associated angina: with unspecified form of angina Coronary Disease-Associated Artery/Lesion type: [place] artery [place] vs. transplanted heart: [place] heart Qualified Code(s): I25.119 - Atherosclerotic heart disease of [place] coronary artery with unspecified angina pectoris Plan: Control the cholesterol, weight, blood pressure, diabetes continue with anticoagulation (4) Paroxysmal atrial fibrillation: Code(s): I48.0 - Paroxysmal atrial fibrillation Category: Medical Plan: Continue with anticoagulation and diltiazem on apixaban 5 mg twice a day (5) Asthma with COPD: Comment: PATIENT HAS LONGSTANDING HISTORY OF BRONCHIAL ASTHMA/COPD. AFTER PROLONGED INTUBATION SHE HAD DEVELOPED TRACHEOMALACIA IN 2009 . SHE UNDERWENT TRACHEO PLASTY AT [facility] , LOST FOLLOW-UP OVER THERE WAS IN 2021 INCLUDING A BRONCHOSCOPY AND THERE WAS NO EVIDENCE OF TRACHEOMALACIA. HER MAINTENANCE MEDICAL REGIMEN INCLUDES SYMBICORT 160-4.5 2 PUFFS B.I.D., SHE IS NOT USING SYMBICORT REGULARLY, USES ONLY IF SHE HAS ANY BOUTS OF WHEEZING. HOWEVER ACCORDING TO THE FAMILY MEMBERS SHE IS NOTICED TO BE HAVING MORE SHORTNESS OF BREATH AND WHEEZING WHEN SHE WALKS. Code(s): J44.89 - Other specified chronic obstructive pulmonary disease Category: Medical Plan: Patient follows up with Pulmonary and on Symbicort albuterol. (6) Obstructive sleep apnea: Comment: SHE HAS CHRONIC OBSTRUCTIVE SLEEP APNEA/HYPOVENTILATION SYNDROME. She used to be on CPAP therapy. But has not used the CPAP since 2020. [facility] admitted [facility] with an acute exacerbation of COPD. She was treated with the CPAP and she tolerated it well She had a sleep study at [facility], and she did respond to CPAP of 10 cm. A new CPAP device was ordered which she does have at home , and it is functional. However she has not used the CPAP. Claiming that she does not like to have the moisture on her face. On her last visit her machine was checked and we had explained to her how to use the humidification chamber. Still she has not been using regularly. She claims that she is sleeping well at least for 6-7 hours every night, without the CPAP. Code(s): G47.33 - Obstructive sleep apnea (adult) (pediatric) Category: Medical Plan: Continues the CPAP more than 4 hours a night and benefits from this Plan History of Present Illness The patient is a 74-year-old female presenting for management of multiple chronic conditions including chronic kidney disease, asthma, COPD, obstructive sleep apnea, hypertension, congestive heart failure, coronary artery disease, atrial fibrillation, diabetes mellitus, and aortic stenosis. The patient has a history of chronic kidney disease with recent blood work indicating normal kidney function, although proteinuria is present. 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 The patient has obstructive sleep apnea and uses CPAP therapy for more than 4 hours a night, which she finds beneficial. She has a history of tracheomalacia and underwent tracheoplasty in 2009. The patient has hypertension, congestive heart failure, and coronary artery disease, managed with carvedilol, diltiazem, and furosemide. She also has atrial fibrillation and is on anticoagulation therapy with apixaban. The patient has diabetes mellitus with an A1c of 7.0, managed with insulin and oral medications. She has a history of deep vein thrombosis and is on anticoagulation therapy. The patient has hyperlipidemia with LDL cholesterol of 87 mg/dL, managed with atorvastatin. She has fatty liver disease, likely due to obesity, and is advised to follow a healthy diet and exercise regimen. The patient has a history of aortic stenosis and has had a stent placed in 2022 following a heart attack. She has had multiple heart attacks, with the most recent occurring on [facility]. The patient has a history of falls and balance issues, which she attributes to fear of falling and losing balance. She has been advised to use a walker for stability and to avoid falls. The patient has a history of eye issues related to diabetes, with recent bleeding behind the eyes requiring treatment. She is advised to have regular eye examinations to monitor her condition. Health Maintenance - Vaccinations: Discussed shingles vaccination, recommended due to past shingles episode. - Screening: Regular eye examinations advised due to diabetes-related eye issues. - Screening: Colonoscopy discussed, pending cardiology clearance. - Lifestyle: Advised on healthy diet and exercise to manage obesity and fatty liver disease. Social History - Exercise: Patient reports no regular exercise due to fear of falling and balance issues. - Nutrition: Patient consumes salads and meat, advised to reduce meat intake and increase fish consumption. - Substance Use: Patient reports rare alcohol consumption, approximately once a week. - Smoking: Patient quit smoking in 1992, previously smoked half a pack a day. Review of Systems - Cardiovascular: Reports history of heart attacks, denies current chest pain. - Respiratory: Reports dyspnea on exertion, uses CPAP for obstructive sleep apnea. - Neurological: Reports balance issues, denies recent headaches. - Endocrine: Reports diabetes mellitus, A1c of 7.0. - Gastrointestinal: Reports history of fatty liver disease, denies current abdominal pain. - Musculoskeletal: Reports history of falls, uses walker for stability. Physical Exam General: Cooperative, healthy appearing, comfortable, no acute distress and well developed Orientation: Patient oriented x3 Limitations: No limitations Head: Normal to inspection Ears: Hearing not great, but no need for a hearing test Nose: Normal external nose present Face and sinus: Normal facial exam Eyes: Appearance normal, both eyes and all related structures Neck: Normal visual inspection and Yes full ROM Respiratory: Normal respiratory effort and able to speak in complete sentences. Clear to auscultation bilaterally Cardiovascular: Regular rate and rhythm. Normal S1 and S2 GI: Normal to inspection. Soft to palpation and nontender Skin: No rashes or lesions noted Neuro: Patient oriented x3 Extremities: Normal to inspection Results - Labs: Normal blood count, microcytosis present, normal platelet count, normal white blood cell count, sodium and potassium levels normal, kidney function normal, A1c 7.0, liver enzymes mildly elevated, LDL cholesterol 87 mg/dL, triglycerides 99 mg/dL, B12, vitamin D, and folic acid levels normal, proteinuria present. - Imaging: Echocardiogram in June 2024 showed hyperdynamic left ventricle, mild aortic stenosis with calcification, calcifications in mitral valve, left ventricular ejection fraction over 70%. Plan The patient will continue with current management for chronic kidney disease, ensuring regular monitoring of kidney function and proteinuria. Asthma and COPD management will continue with Symbicort and Duoneb nebulizer, with regular follow-ups with the recreation facilities supervisor. For obstructive sleep apnea, the patient will continue using CPAP therapy, which has been beneficial. Hypertension, congestive heart failure, and coronary artery disease will be managed with carvedilol, diltiazem, and furosemide, with daily weight monitoring and diuretic use. Atrial fibrillation management will continue with anticoagulation therapy using apixaban. Diabetes management will focus on maintaining an A1c of 7.0, with insulin and oral medications, and regular monitoring of blood glucose levels. Hyperlipidemia will be managed with atorvastatin, with consideration for additional medication if LDL cholesterol does not reach target levels. Fatty liver disease management will focus on dietary modifications and increased physical activity to reduce obesity. The patient will be referred to cardiology for further evaluation of aortic stenosis and coronary artery disease, with consideration for potential interventions. Regular eye examinations are advised to monitor diabetes-related eye issues, and a referral to endocrinology will be made for comprehensive diabetes management. Patient was informed and verbally consented to the use of an ambient scribe for clinic note documentation during this visit. Discussion Notes During the visit, I discussed the management of the patient's chronic conditions, including the continuation of current medications and therapies for chronic kidney disease, asthma, COPD, obstructive sleep apnea, hypertension, congestive heart failure, coronary artery disease, atrial fibrillation, and diabetes mellitus. We reviewed the importance of regular monitoring and follow-ups with specialists, including pulmonology and cardiology, to ensure optimal management of her conditions. I emphasized the need for lifestyle modifications, including dietary changes and increased physical activity, to manage obesity and fatty liver disease. We also discussed the importance of regular eye examinations due to diabetes-related eye issues and the potential need for further interventions for aortic stenosis and coronary artery disease. Patient Instructions - Continue taking all prescribed medications as directed. - Use CPAP machine for at least 4 hours each night. - Monitor blood glucose levels regularly and maintain an A1c of 7.0. - Follow a healthy diet and increase physical activity to manage weight and fatty liver disease. - Schedule regular follow-ups with pulmonology and cardiology. - Attend regular eye examinations to monitor diabetes-related eye issues. - Avoid alcohol and smoking. Orders: Orders Complete Blood Count Auto Diff Today E11.9 - Type 2 diabetes mellitus without complications Comprehensive Met. Panel Today E11.9 - Type 2 diabetes mellitus without complications Hemoglobin A1c Today E11.9 - Type 2 diabetes mellitus without complications Lipid Panel Today E11.9 - Type 2 diabetes mellitus without complications, E78.00 - Pure hypercholesterolemia, unspecified Thyroid Stimulating Hormone Today E11.9 - Type 2 diabetes mellitus without complications Vitamin B12 and Folate Today E11.9 - Type 2 diabetes mellitus without complications Vitamin D 25-OH Total Today E11.9 - Type 2 diabetes mellitus without complications Microalbumin, Random (w Creat) Today E11.65 - Type 2 diabetes mellitus with hyperglycemia, E11.9 - Type 2 diabetes mellitus without complications Creatinine Urine Today E11.65 - Type 2 diabetes mellitus with hyperglycemia, E11.9 - Type 2 diabetes mellitus without complications Reticulocyte Count Today E11.9 - Type 2 diabetes mellitus without complications AMB Hemoglobin A1c Today Z13.9 - Encounter for screening, unspecified Free T4 (Free Thyroxine) Today E11.9 - Type 2 diabetes mellitus without complications Ferritin Today E11.9 - Type 2 diabetes mellitus without complications Referrals Endocrinology Referral E11.9 - Type 2 diabetes mellitus without complications
[2025-04-06 13:32] VITALS: BP 132/70; PULSE 106; O2SAT 95; BMI 31.9
--- OUTSIDE RECORDS SUMMARY | 2025-04-06 13:33 | XMS_ITS | Clinical Summary ---
Author Organization [facility] Facility Address [address] [place] [id number] Care Team Providers Care Development Officer Name Role Phone Unavailable Primary Care Provider [...] age to complete [place] [address] [place] [address]
--- OUTSIDE RECORDS SUMMARY | 2025-04-06 13:33 | XMS_ITS | Clinical Summary ---
Author Organization [facility] it Address [id number] [place] [id number] Care Team Providers Care Junior Copywriter Name Role Phone Ben Borges MD Primary Care Provider [phone] Immunizations Name Administration Dates Next Due Pfizer [...] 1998 Zoster Vaccines (1 of 2) 1998 Falls Risk Assessment 08/19/2022 Hepatitis C Screening 08/19/2022 Osteoporosis Screening (Bone Density Screening) 08/19/2022 Social Influencers of Health Screening 08/19/2022 RSV Immunization Adult Patie nts (1 - 1-dose 75+ series) 2023 COVID-19 Vaccine (2 - 2023-2 5 season) 2024 12/17/2021 Depression Screening 09/06/2024 Influenza Vaccine (#1) 2025 HIB Vaccines Aged [...] age to complete this topic Care Teams Junior Copywriter Relationship Specialty Start Date End Date Ben Borges MD [address] [place] [address] PCP - General Internal Medicine 05/04/22
== END 2025-04-06 14:51 | disposition home or self-care (01) ==
LOC: HO.HMCH 13:30
PROVIDERS: PCP Internal Medicine; Visit Provider Internal Medicine
DX: I11.0 Hypertensive heart disease with heart failure (principal); I50.30 Unspecified diastolic (congestive) heart failure; I48.0 Paroxysmal atrial fibrillation; J44.89 Other specified chronic obstructive pulmonary disease; I25.119 Atherosclerotic heart disease of native coronary artery with unspecified angina pectoris; G47.33 Obstructive sleep apnea (adult) (pediatric); Z13.9 Encounter for screening, unspecified

== ENCOUNTER → 2025-04-06 13:29 | Outpatient (BNVA) | payer MEDICARE, SELFPAY | PROVIDERS: PCP Internal Medicine; Visit Provider Internal Medicine | DX: I11.0 Hypertensive heart disease with heart failure (principal); I50.30 Unspecified diastolic (congestive) heart failure; I25.119 Atherosclerotic heart disease of native coronary artery with unspecified angina pectoris; I48.0 Paroxysmal atrial fibrillation; J44.89 Other specified chronic obstructive pulmonary disease; G47.33 Obstructive sleep apnea (adult) (pediatric); Z79.01 Long term (current) use of anticoagulants; Z79.899 Other long term (current) drug therapy; Z13.30 Encounter for screening examination for mental health and behavioral disorders, unspecified | CPT/HCPCS: 83036; 96127; 99212 ==

== ENCOUNTER 2025-04-19 13:42 | Outpatient (AMB) | payer OTHER, SELFPAY ==
--- NOTE | 2025-04-19 14:19 | A.OFFVIS_ITS ---
Vital Signs 04/19/25 14:20 04/19/25 14:33 04/19/25 14:33 Height 5 ft 4 in Weight 187 lb 6.287 oz BMI 32.2 BP 134/60 136/62 137/63 Blood Pressure Location Lt brachial Lt brachial Lt brachial Position Supine Sitting Standing Pulse 77 79 83 Intake Visit Reasons: 6m follow up Intake Note: 6 month follow-up with orthostatic bp c/o dizziness and sob Specialist Wound Care Required: No Rn Transport: Rn Transport Present Accompanied by: Daughter Allergies Latex, Natural Rubber Allergy (Severe, Verified 04/06/25 13:32) blisters Sulfa (Sulfonamide Antibiotics) (SULFA (SULFONAMIDE ANTIBIOTICS)) Allergy (Mild, Verified 04/06/25 13:32) ITCHING, rash nystatin Allergy (Unknown, Verified 04/06/25 13:32) rash isosorbide (From Imdur) Adverse Reaction (Unknown, Verified 04/06/25 13:32) HEADACHES, headache tizanidine Adverse Reaction (Unknown, Verified 04/06/25 13:32) weakness, Hellucination Medication List - Last Reconciled 04/19/25 by Brian Hughes MD acetaminophen 650 mg (2 x 325 mg) PO Q6H PRN albuterol sulfate 90 mcg/actuation 2 puffs inhalation QID PRN apixaban (Eliquis) 5 mg PO BID atorvastatin 80 mg PO BEDTIME blood sugar diagnostic ([employer] Verio test strips) Test blood sugar 3 times per day blood-glucose meter (OneTouch Verio Flex Meter) As directed budesonide-formoterol 160-4.5 mcg/actuation (Symbicort) 2 puffs inhalation BID PRN buspirone 10 mg PO BID carvedilol 6.25 mg PO BID 90 days cholecalciferol (vitamin D3) 25 mcg PO DAILY citalopram 30 mg (1.5 x 20 mg) PO DAILY compr.stocking,thigh,reg,large Thigh High compression stockings 10-20mmHg diltiazem HCl ER 300 mg PO DAILY empagliflozin (Jardiance) 25 mg PO DAILY flash glucose sensor (FreeStyle Kelly 2 Sensor kit) As directed every 2 weeks furosemide 20 mg PO DAILY insulin glargine (Lantus Solostar U-100 Insulin) 25 units (0.25 mL) subcut BEDTIME insulin lispro (Humalog KwikPen (U-100) Insulin) 1 sliding scale dose subcut USEASDIRECTD ipratropium-albuterol 0.5 mg-3 mg(2.5 mg base)/3 mL 3 mL inhalation Q6H PRN 30 days lancets (OneTouch Delica Plus Lancet) Test blood sugar 3 times per day loratadine 10 mg PO DAILY PRN montelukast 10 mg PO BEDTIME pantoprazole 40 mg PO .qd semaglutide (Ozempic) 2 mg (0.75 mL) subcut QWEEK sennosides-docusate sodium 8.6-50 mg (Stimulant Laxative Plus) 2 tabs PO BID PRN sumatriptan succinate take 1 tab at onset of headache; if no relief may repeat 1 tab after at least 2 hrs; max = 4 tabs/24 hr walker As directed HPI Comments Details: Saima comes for follow-up accompanied by her daughter. She says starting today she has had dizziness feels like the world and the head is spinning and imbalance. No recent upper respiratory tract infection. No hearing loss or tinnitus. No clear lightheadedness. This appears to be vertigo. Daughter confirmed that she has had prior history of vertigo. She has no exertional chest pain. Does complain of shortness of breath although also complains of wheezing. No leg edema, weight gain. Taking all her medications regularly. No bleeding issues or neurologic events. [facility] Medical History retirement (current) use of insulin Vitamin D deficiency DM type 2 (diabetes mellitus, type 2) CAD (coronary artery disease) Non-ST elevation PR (NSTEMI) Patellofemoral arthritis of right knee Right knee pain [employer] current use of anticoagulant Abnormal stress test Hypertension Obstructive sleep apnea Asthma with COPD Anemia CKD stage 3 due to type 2 diabetes mellitus Tracheomalacia, acquired History of pulmonary embolism AG (acute kidney injury) Paroxysmal atrial fibrillation Pulmonary embolism Obesity Dyslipidemia Respiratory failure COPD (chronic obstructive pulmonary disease) Surgical History History of carpal tunnel surgery History of cholecystectomy History of lobectomy of lung Status post tracheoplasty History of cardiac cath Family History Mother No problems noted. Father No problems noted. Brother Substance use disorder Brother Substance use disorder Social History Household Members: Family Household Members Other:: 2 Housing: House Do you presently have visiting nurse or other home services: No Alcohol intake: former Comment: weddings Patient Tobacco Use Status: Former Tobacco user Tobacco use type: Cigarette Cigarettes Per Day: 10 Years Smoked: 3 stopped 1992 e-Cigarette/Vaping Use: Never Used Second Hand Smoke Exposure: No Advance Directives Date on File: 06/29/23 service: No Current occupational status: retired Cognitive needs: No Hearing needs: No Vision needs: No Review of Systems Const Denies chills, Denies fatigue, Denies fever(s), Denies frequent falls, Denies weakness, Denies weight gain and Denies weight loss ENT Denies dizziness Card Denies chest pain, Denies leg edema, Denies lightheadedness, Denies palpitations, Denies dyspnea, Denies dyspnea on exertion, Denies orthopnea and Denies other (loss of consciousness) Resp Denies cough, Denies dyspnea and Denies dyspnea on exertion GI Denies hematochezia and Denies change in stool character Musc Denies abnormal gait, Denies muscle weakness, Denies numbness, Denies radiating pain into limb and Denies tingling Neuro Denies abnormal gait, Denies dizziness, Denies frequent falls, Denies numbness, Denies tingling and Denies weakness Endo Denies fatigue and Denies palpitations Physical Exam Vital Signs: Last Vital Signs Pulse 83 04/19/25 14:33 BP 137/63 04/19/25 14:33 BMI result Body Mass Index 32.2 Const General: cooperative, healthy appearing, comfortable and no acute distress Orientation/consciousness: patient oriented x3 Neck Neck: Yes normal visual inspection and Yes no JVD Chest Chest palpation & inspection: normal inspection of the chest Resp Effort & Inspection: normal respiratory effort Auscultation: clear to auscultation bilaterally, no crackles, no rales, no rhonchi, no wheezes and diminished lung sounds Cardio Jugular venous distension: no JVD Rate: regular rate Rhythm: regular rhythm Heart sounds: S1 normal heart sound present, S2 normal heart sound present, Murmur heart sound present (Faint systolic) and no rubs Neuro General: patient oriented x3 Extrem Other: Left femoral cath site, visibly well healed, nontender, weekly palpable pulse. No reports of leg claudication bilaterally. General: Yes normal to inspection Psych Appearance: grossly normal Mental Status: mental status grossly normal Speech and movement: Normal speech and movement present Assessment & Plan Assessment & Plan (1) Heart failure with preserved ejection fraction: Comment: Echo 11/2023 EF>70 %, NO REGIONAL WALL MOTION ABNORMALITIES, NORMAL RIGHT VENTRICULAR SYSTOLIC FUNCTION, MILD Code(s): I50.30 - Unspecified diastolic (congestive) heart failure Category: Medical Plan: Heart failure with preserved ejection fraction, clinically appears to be euvolemic and well compensated. Does not appear to be secondary to heart failure shortness of breath. Continue current diuretic regimen. Continue rhythm control approach. Continue Jardiance. Continue optimize pulmonary function. Suggested her because of her shortness of breath and wheezing today to use nebulizers when she goes home. She appears very anxious otherwise. (2) Aortic stenosis: Code(s): I35.0 - Nonrheumatic aortic (valve) stenosis Category: Medical Plan: Aortic stenosis is mild. No required interventions. Continue aggressive risk factor modification. Aggressive diabetes management goal hemoglobin A1c less than 7%. Continue statin therapy. Continue aggressive blood pressure control. (3) CAD (coronary artery disease): Comment: s/p ARMANI to LCX 06/28 Code(s): I25.10 - Atherosclerotic heart disease of [place] coronary artery without angina pectoris Category: Medical Qualifiers: Coronary Disease-Associated Artery/Lesion type: [place] artery [place] vs. transplanted heart: [place] heart Associated angina: with unspecified form of angina Qualified Code(s): I25.119 - Atherosclerotic heart disease of [place] coronary artery with unspecified angina pectoris Plan: CAD with no symptoms of angina. Currently on full oral anticoagulation Eliquis and therefore would avoid aspirin therapy. Continue aggressive risk factor modification above. Goal LDL less than 70 mg/dL. Continue high-intensity statin therapy. Encouraged to maintain activity level as tolerated. (4) Paroxysmal atrial fibrillation: Code(s): I48.0 - Paroxysmal atrial fibrillation Category: Medical Plan: Paroxysmal atrial fibrillation maintaining rhythm. Continue rhythm control approach. Currently on full oral anticoagulation with apixaban and continue the same. Continue carvedilol. Avoidance of stimulants was discussed. No indication for antiarrhythmic drug therapy at this time. (5) Dizziness: Code(s): R42 - Dizziness and giddiness Plan: Patient comes with dizziness today which appears to be more vertiginous in nature. There was no evidence of orthostatic hypotension. Does not have any evidence of arrhythmias. At this point time advised to seek your care meanwhile I have given her a PRN prescription of meclizine. Consider PT consultation. Will follow up in the clinic in 6 months time, sooner p.r.n.. Thank you for a llowing me to partake in her care Orders: Orders B Type Natriuretic Peptide Today I50.30 - Unspecified diastolic (congestive) heart failure XR chest 2V Today I50.30 - Unspecified diastolic (congestive) heart failure Medications: New meclizine 12.5 mg PO TID PRN 14 tabs 1RF dizziness Coding Level of Care Code Est Pt Level 4 (05819) Complex EM visit Add On G2211 Diagnoses Heart failure with preserved ejection fraction I50.30 Aortic stenosis I35.0 Coronary artery disease involving [place] coronary artery of [place] heart with angina pectoris I25.119 Coronary Disease-Associated Artery/Lesion type: [place] artery [place] vs. transplanted heart: [place] heart Associated angina: with unspecified form of angina Paroxysmal atrial fibrillation I48.0 Dizziness R42
[2025-04-19 14:20] VITALS: BP 134/60; PULSE 77; BMI 32.2
[2025-04-19 14:33] VITALS: BP 136/62; BP 137/63; PULSE 79; PULSE 83
--- OUTSIDE RECORDS SUMMARY | 2025-04-19 14:34 | XMS_ITS | Clinical Summary ---
Author Organization [facility] it Address [address] [place] [id number] Care Team Providers Care Technical Healthcare Consultant Name Role Phone Ben Borges MD Primary Care Provider [phone] Immunizations Name Administration Dates Next Due Pfizer [...] age to complete this topic Care Teams Technical Healthcare Consultant Relationship Specialty Start Date End Date Ben Borges MD [address] [place] [address] PCP - General Internal Medicine 05/04/22
--- OUTSIDE RECORDS SUMMARY | 2025-04-19 14:34 | XMS_ITS | Clinical Summary ---
Author Organization [facility] Facility Address [address] [place] [id number] Care Team Providers Care Television Specialist Name Role Phone Unavailable Primary Care Provider [...]
== END 2025-04-19 14:51 | disposition home or self-care (01) ==
LOC: HO.HCS 13:43
PROVIDERS: PCP Internal Medicine; Visit Provider Internal Medicine Cardiovascular Disease
DX: I50.30 Unspecified diastolic (congestive) heart failure (principal); I35.0 Nonrheumatic aortic (valve) stenosis; I25.119 Atherosclerotic heart disease of native coronary artery with unspecified angina pectoris; I48.0 Paroxysmal atrial fibrillation; R42 Dizziness and giddiness
CPT/HCPCS: 99214

== ENCOUNTER 2025-04-20 14:32 | Outpatient (REF) | payer MEDICARE, SELFPAY ==
--- NOTE | ~2025-04-20 | XR_ITS ---
CLINICAL HISTORY: I50.30 - Unspecified diastolic (congestive) heart failure 2 view chest x-ray Comparison: 07/05/2024 Findings: No new consolidation or effusion. Normal size heart. No acute fracture. IMPRESSION: 1. No acute findings. This document has been electronically signed by: Misael Echavarria MD on 04/21/2025 09:24:31
--- OUTSIDE RECORDS SUMMARY | 2025-04-20 14:36 | XMS_ITS | Clinical Summary ---
Author Organization [facility] Facility Address [address] [place] [id number] Care Team Providers Care Clerical Administrative Assistant Name Role Phone Unavailable Primary Care Provider [...]
[2025-04-20 16:22] LABS: MANUAL DIFF FLAG NO
[2025-04-20 16:28] LABS: B Type Natriuretic Peptide 69 pg/mL (<100)
[2025-04-20 16:36] LABS: Hematocrit 37.1 % (37.0-47.0); Hemoglobin 11.4 g/dl (12.0-16.0); Imm Gran Abs Auto 0.03 X10*3/uL (0.00-0.03); Imm Gran Pct Auto 0.3 % (0.0-0.4); Lymphocytes Absolute Auto 1.6 X10*3/uL (1.2-4.9); Mean Corpuscular HGB Conc 30.7 g/dl (31.0-35.0); Mean Corpuscular Hemoglobin 24.5 pg (27.0-33.0); Mean Corpuscular Volume 79.6 fL (80.0-98.0); NRBC Abs Auto 0.000 X10*3/uL (0.0-0.012); NRBC Pct Auto 0.0 /100WBC (0.0-0.2); Platelet Count 223 X10*3/uL (160-400); Red Blood Count 4.66 X10*6/uL (4.20-5.50); Reticulocytes Absolute 0.079 X10*6/uL (0.026-0.095); White Blood Count 9.4 X10*3/uL (4.8-10.8)
[2025-04-20 17:01] LABS: Hemoglobin A1C 217.8274 umol/L; Total Hemoglobin (HGBA1C) 4370.9459 umol/L
[2025-04-20 17:10] LABS: Cholesterol 155 mg/dL (<200); HDL Cholesterol 41 mg/dL (>40); Triglycerides 121 mg/dL (<150)
[2025-04-20 17:12] LABS: Ferritin 19 ng/mL (10-250); Free T4 (Free Thyroxine) 0.92 ng/dL (0.71-1.85); Thyroid Stimulating Hormone 2.85 uIU/mL (0.32-4.0)
[2025-04-20 17:22] LABS: Microalbum/Creatinine Ratio Ur 116.5 ug/mg cr (<30)
[2025-04-20 17:26] LABS: Folate 11.4 ng/mL (> or = 4.0); Vitamin B12 388 pg/mL (200-900)
== END 2025-04-20 14:33 | disposition home or self-care (01) ==
LOC: HO.HMGCX 14:32
PROVIDERS: Internal Medicine; PCP Internal Medicine; Referring Provider Internal Medicine Cardiovascular Disease; Visit Provider Internal Medicine Cardiovascular Disease
DX: E11.65 Type 2 diabetes mellitus with hyperglycemia (principal); E78.00 Pure hypercholesterolemia, unspecified; I50.30 Unspecified diastolic (congestive) heart failure
CPT/HCPCS: 36415; 71046; 80061; 82043; 82306; 82570; 82607; 82728; 82746; 83036; 83880; 84439; 84443; 85025; 85045

== ENCOUNTER → 2025-04-20 14:49 | Outpatient (BNV) | payer MEDICARE, SELFPAY | PROVIDERS: PCP Internal Medicine; Referring Provider Internal Medicine Cardiovascular Disease; Visit Provider Specialist | DX: R06.02 Shortness of breath (principal); I50.30 Unspecified diastolic (congestive) heart failure | CPT/HCPCS: 71046 ==

== ENCOUNTER → 2025-05-03 17:30 | Outpatient (BNV) | payer MEDICARE, SELFPAY | PROVIDERS: PCP Internal Medicine; Visit Provider Radiology Diagnostic Radiology | DX: R07.89 Other chest pain (principal) | CPT/HCPCS: 71046 ==

== ENCOUNTER 2025-05-03 17:36 | Emergency (ER) | payer MEDICARE, SELFPAY ==
--- NOTE | ~2025-05-03 | XR_ITS ---
CLINICAL HISTORY: chest pain 2 view chest x-ray Comparison: None provided Findings: Cervical fusion hardware. The lungs are clear. Heart size is normal. No acute fracture. IMPRESSION: 1. No acute findings. This document has been electronically signed by: Donna Hillman MD on 05/03/2025 18:46:34
[2025-05-03 17:42] VITALS: BP 148/70; PULSE 100; O2SAT 96
--- NOTE | 2025-05-03 17:44 | ECG_ITS ---
Test Reason : CP Blood Pressure : */* mmHG Vent. Rate : 101 BPM Atrial Rate : 101 BPM P-R Int : 202 ms QRS Dur : 76 ms QT Int : 348 ms P-R-T Axes : 70 40 92 degrees QTcB Int : 451 ms Sinus tachycardia Nonspecific T wave abnormality Abnormal ECG When compared with ECG of 17-Jan-2025 19:15, No significant change was found Referred By: Generic ED Physician Electronically Signed By: SCOTTIE MONROY
[2025-05-03 17:48] VITALS: BP 150/70; PULSE 101; RESP 16; TEMP 37.1; O2SAT 95; BMI 33.7
[2025-05-03 18:05] LABS: MANUAL DIFF FLAG NO
[2025-05-03 18:15] LABS: Hematocrit 31.9 % (37.0-47.0); Hemoglobin 9.9 g/dl (12.0-16.0); Imm Gran Abs Auto 0.04 X10*3/uL (0.00-0.03); Imm Gran Pct Auto 0.5 % (0.0-0.4); Lymphocytes Absolute Auto 1.8 X10*3/uL (1.2-4.9); Mean Corpuscular HGB Conc 31.0 g/dl (31.0-35.0); Mean Corpuscular Hemoglobin 24.4 pg (27.0-33.0); Mean Corpuscular Volume 78.8 fL (80.0-98.0); NRBC Abs Auto 0.000 X10*3/uL (0.0-0.012); NRBC Pct Auto 0.0 /100WBC (0.0-0.2); Platelet Count 283 X10*3/uL (160-400); Red Blood Count 4.05 X10*6/uL (4.20-5.50); White Blood Count 8.1 X10*3/uL (4.8-10.8)
[2025-05-03 18:21] LABS: Alanine Aminotransferase 18 U/L (0-31); Albumin Level 3.8 g/dL (3.5-5.0); Alkaline Phosphatase 116 U/L (39-117); Anion Gap 13 (12-20); Aspartate Amino Transferase 17 U/L (5-31); Blood Urea Nitrogen 30 mg/dL (9-16); Calcium 8.5 mg/dL (8.4-10.2); Carbon Dioxide 27 mmol/L (22-29); Chloride 103 mmol/L (96-108); Creatinine Clr Calc Pharmacy 39.4; Estimated Glomerular Filt Rate 39; Magnesium 2.1 mg/dL (1.6-2.6); Potassium 4.1 mmol/L (3.3-5.1); Sodium 139 mmol/L (135-145); Total Protein 6.6 g/dL (6.5-8.0)
[2025-05-03 18:28] LABS: Troponin-I High Sensitivity 8.1 ng/L (<3.5-17.0)
--- OUTSIDE RECORDS SUMMARY | 2025-05-03 18:31 | XMS_ITS | Clinical Summary ---
Author Organization [facility] Facility Address [address] [place] [id number] Care Team Providers Care Director Blood Bank Name Role Phone Unavailable Primary Care Provider [...]
--- OUTSIDE RECORDS SUMMARY | 2025-05-03 18:31 | XMS_ITS | Clinical Summary ---
Author Organization [facility] it Address [id number] [place] [id number] Care Team Providers Care Self Defense Instructor Name Role Phone Ben Borges MD Primary [...] age to complete this topic Care Teams Self Defense Instructor Relationship Specialty Start Date End Date Ben Borges MD [address] [place] [address] PCP - General Internal Medicine 05/04/22
[2025-05-03 18:34] LABS: INTERNATIONAL NORM RATIO 1.0 (0.9-1.1); Prothrombin Time 11.0 SEC (10.9-12.4)
[2025-05-03 19:10] VITALS: BP 165/64; PULSE 88; RESP 20; O2SAT 97
--- NOTE | 2025-05-03 19:21 | ED.CHESTPAIN ---
HPI - Chest Pain General Chief Complaint: Chest Pain Stated Complaint: CHEST PAIN L ARM Time Seen by Provider: 05/03/25 19:11 History of Present Illness ED Provider: Todd Rothman MD HPI narrative: 74-year-old female with history of coronary artery disease status post left circumflex OM 1 branch stent 2 years ago otherwise minimal irregularity/no obstructive coronary disease of the other vessels. She complains of left upper chest pain without injury and not with exertion. Nausea no sweating. Pain mostly resolved on arrival here she got nitro or aspirin. Similar pains intermittently in the past. Denies hemoptysis or leg edema. She has been adherent with the apixaban. Related Data Home Medications ?Medication ?Instructions ?Recorded ?Confirmed cholecalciferol (vitamin D3) 25 25 mcg PO DAILY 08/11/23 04/19/25 mcg (1,000 unit) tablet albuterol sulfate 90 mcg/actuation 2 puff inhalation QID PRN 05/17/24 04/19/25 aerosol inhaler SOB/wheezing budesonide-formoterol HFA 160 2 puff inhalation BID PRN SOB 05/17/24 04/19/25 mcg-4.5 mcg/actuation aerosol inhaler (Symbicort) sennosides 8.6 mg-docusate sodium 2 tab PO BID PRN 11/08/24 04/19/25 50 mg tablet (Stimulant Laxative Plus) Previous Rx's ?Medication ?Instructions ?Recorded walker #1 ea 02/28/23 acetaminophen 325 mg tablet 650 mg (2 x 325 mg) PO Q6H PRN 08/22/23 pain #30 tabs compr.stocking,thigh,reg,large #2 ea 02/08/24 blood-glucose meter (OneTouch #1 ea 03/06/24 Verio Flex Meter) lancets 30 gauge (OneTouch Delica #100 ea 03/06/24 Plus Lancet) insulin lispro 100 unit/mL 1 sliding scale dose subcut 06/08/24 subcutaneous pen (Humalog KwikPen USEASDIRECTD #15 mL (U-100) Insulin) insulin glargine 100 unit/mL (3 25 unit (0.25 mL) subcut BEDTIME 07/09/24 mL) subcutaneous pen (Lantus #15 mL Solostar U-100 Insulin) ipratropium 0.5 mg-albuterol 3 mg 3 ml inhalation Q6H PRN wheezing 11/16/24 (2.5 mg base)/3 mL nebulization 30 days #180 mL soln pantoprazole 40 mg tablet,delayed 40 mg PO .qd #90 tabs 12/14/24 release sumatriptan succinate 50 mg tablet See Rx Instructions PO .COMPLEX 01/22/25 #10 tabs apixaban 5 mg tablet (Eliquis) 5 mg PO BID #180 tabs 01/31/25 buspirone 10 mg tablet 10 mg PO BID #180 tabs 01/31/25 carvedilol 6.25 mg tablet 6.25 mg PO BID 90 days #180 tabs 01/31/25 diltiazem HCl 300 mg capsule,24 300 mg PO DAILY #90 caps 01/31/25 hr,extended release empagliflozin 25 mg tablet 25 mg PO DAILY #90 tabs 01/31/25 (Jardiance) furosemide 20 mg tablet 20 mg PO DAILY #90 tabs 01/31/25 citalopram 20 mg tablet 30 mg (1.5 x 20 mg) PO DAILY #135 02/15/25 tabs semaglutide 2 mg/dose (8 mg/3 mL) 2 mg (0.75 mL) subcut QWEEK #3 mL 03/02/25 subcutaneous pen injector ([employer]) blood sugar diagnostic (OneTouch #100 ea 03/28/25 Verio test strips) flash glucose sensor (FreeStyle #6 ea 03/28/25 Kelly 2 Sensor kit) atorvastatin 80 mg tablet 80 mg PO BEDTIME #90 tabs 04/16/25 montelukast 10 mg tablet 10 mg PO BEDTIME for asthma #90 04/17/25 tabs meclizine 12.5 mg tablet 12.5 mg PO TID PRN dizziness #14 04/19/25 tabs Allergies Allergy/AdvReac Type Severity Reaction Status Date / Time Latex, Natural Rubber Allergy Severe blisters Verified 05/03/25 17:49 Sulfa (Sulfonamide Allergy Mild ITCHING, Verified 05/03/25 17:49 Antibiotics) (SULFA rash (SULFONAMIDE ANTIBIOTICS)) nystatin Allergy Unknown rash Verified 05/03/25 17:49 isosorbide (From Imdur) AdvReac Unknown HEADACHES, Verified 05/03/25 17:49 headache tizanidine AdvReac Unknown weakness, Verified 05/03/25 17:49 Hellucination [facility] Past Medical History Medical History long term (current) use of insulin Vitamin D deficiency DM type 2 (diabetes mellitus, type 2) CAD (coronary artery disease) Non-ST elevation IL (NSTEMI) Patellofemoral arthritis of right knee Right knee pain long term current use of 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 Father No problems noted. Brother Substance use disorder Brother Substance use disorder Social History Social History Household Members: Family Household Members Other:: 2 Housing: House Do you presently have visiting nurse or other home services: No Alcohol intake: former Comment: weddings Patient Tobacco Use Status: Former Tobacco user Tobacco use type: Cigarette Cigarettes Per Day: 10 Years Smoked: 3 stopped 1993 Smoked in Last 30 Days: No e-Cigarette/Vaping Use: Never Used Second Hand Smoke Exposure: No Advance Directives: Yes Advance Directives on File: Yes Advance Directives Date on File: 06/29/23 Do you have a plan to hurt others: No Plan service: No Current occupational status: retired Cognitive needs: No Hearing needs: No Vision needs: No Physical Exam Exam: Exam: EXAM: Gen: Alert, awake, well appearing, well hydrated. Head: Atraumatic Eyes: Anicteric, Normal conjunctiva. ENT: Moist mucosa, no pallor. ? Neck: Supple. Skin: ?No observable rash or bruising on exposed or examined skin Respiratory: Breathing comfortably, No distress.Clear to auscultation bilaterally, symmetric chest expansion, No wheeze, rales, ronchi. Cardiovascular: Regular rate and rhythm. No murmurs or rub. Well perfused periphery, warm extremities. No edema. ? Abdominal: No focal tenderness. Soft, no objective distension. No palpable masses or obvious organomegaly. ?No guarding, no rebound tenderness or other peritoneal findings. : No flank tenderness. Neuro: Alert. Gross movement of all extremities intact. ? Psych: Calm. Cooperative. MSK: No grossly visible deformity. Vital signs: See flowsheet Vital Signs: Vital Signs: Last Vital Signs Temp 98.7 F 05/03/25 21:17 Pulse 88 05/03/25 21:17 Resp 16 05/03/25 21:17 BP 153/57 H 05/03/25 21:17 Pulse Ox 96 05/03/25 21:17 O2 Del Method Room Air 05/03/25 21:17 BMI result Body Mass Index 33.7 Medications Administered Discontinued Medications Generic Name Dose Route Start Last Admin Trade Name Freq PRN Reason Stop Dose Admin Acetaminophen 975 mg 05/03/25 19:54 05/03/25 20:04 Acetaminophen 325 Mg Tablet PO 05/03/25 19:55 975 mg ONCE ONE Administration Nitroglycerin 0.4 mg 05/03/25 19:54 05/03/25 20:05 Nitroglycerin 0.4 Mg Tab.Subl SUBLINGUAL 05/03/25 19:55 0.4 mg ONCE ONE Administration Medical Decision Making Medical Decision Making [facility] Narrative: Medical Decision Makin-year-old female with nonexertional chest pain. Onset at the latest 15:00 probably earlier per the per the contribution of history from daughter who got the phone call from her the patient has been having this pain little bit earlier in the afternoon. No chest wall injury she looks well has no tenderness of the chest and has clear lungs. Reassuring lab work reassuring cardiovascular exam. Reassuring ECG without ischemic changes. Reassuringly the patient had no significant obstructive coronary disease in the other vessels. There was no regional ischemic changes on ECG to suggest stent occlusion and she is pain-free at this time Troponin x2 excludes IL particularly given the timing of her pain. Character not suggestive of ACS however I informed her clearly that we have not completely excluded narrowing of the another coronary vessel and this may need to be worked up additionally as an outpatient. Character of the pain not suggestive of dissection or PE the patient is not tachycardic hypoxic or visibly dyspneic. No clinical evidence of DVT. Preliminary Favored Differential Diagnosis: Costochondritis, ACS, GERD, among additional considered etiologies Testing Interpreted Independently: ?See below for details Radiology or Lab testing Results Reviewed: ?See below for details Consults: ?See below for details Independent Historians/External Chart Reviews: ?See below for details Social Determinants of Health Impacting MDM/Planning: ?See below for details Lab Data 05/03/25 17:59 05/03/25 17:59 Labs: Lab Results 05/03/25 05/03/25 05/03/25 Range/Units 17:59 20:14 20:20 WBC 8.1 (4.8-10.8) X10*3/uL RBC 4.05 L (4.20-5.50) X10*6/uL Hgb 9.9 L (12.0-16.0) g/dl Hct 31.9 L (37.0-47.0) % MCV 78.8 L (80.0-98.0) fL MCH 24.4 L (27.0-33.0) pg MCHC 31.0 (31.0-35.0) g/dl RDW 17.4 H (11.0-16.0) % Plt Count 283 D (160-400) X10*3/uL MPV 9.4 (9.4-12.3) fL Immature Gran % (Auto) 0.5 H (0.0-0.4) % Neut % (Auto) 59.8 (45-73) % Lymph % (Auto) 22.0 (20-40) % Nicholas % (Auto) 11.1 H (2-11) % Eos % (Auto) 5.7 H (0-4) % Baso % (Auto) 0.9 (0-2) % Lymph # (Auto) 1.8 (1.2-4.9) X10*3/uL Nicholas # (Auto) 0.9 (0.1-1.2) X10*3/uL Eos # (Auto) 0.5 H (0.0-0.4) X10*3/uL Baso # (Auto) 0.1 (0.0-0.2) X10*3/uL Abs Immat Gran (auto) 0.04 H (0.00-0.03) X10*3/uL Absolute Neuts (auto) 4.8 (2.0-8.3) x10*3/uL Absolute Nucleated RBC 0.000 (0.0-0.012) X10*3/uL Nucleated RBC % (auto) 0.0 (0.0-0.2) /100WBC PT 11.0 (10.9-12.4) SEC INR 1.0 (0.9-1.1) D-Dimer High Sensitivty 152 181 NG/ML Sodium 139 (135-145) mmol/L Potassium 4.1 (3.3-5.1) mmol/L Chloride 103 (96-108) mmol/L Carbon Dioxide 27 (22-29) mmol/L Anion Gap 13 (12-20) BUN 30 H (9-16) mg/dL Creatinine 1.31 (0.5-1.4) mg/dL Estim Creat Clear Calc 39.4 Estimated GFR 39 Random Glucose 168 H (60-115) mg/dL Calcium 8.5 (8.4-10.2) mg/dL Magnesium 2.1 (1.6-2.6) mg/dL Total Bilirubin 0.3 (0.0-1.0) mg/dL AST 17 (5-31) U/L ALT 18 (0-31) U/L Alkaline Phosphatase 116 (39-117) U/L Troponin I High Sens 8.1 8.7 (<3.5-17.0) ng/L Total Protein 6.6 (6.5-8.0) g/dL Albumin 3.8 (3.5-5.0) g/dL External Record Review External record reviewed: Inpatient record External records of [facility] 2022, the patient had ruled in for NSTEMI had a left heart catheterization with mid left circ OM 1 culprit lesion that was stented he has been on apixaban and Plavix since as this was a ARMANI. She had no significant obstructive coronary disease of the right or LAD ___ July 2023 progress note from [facility] reveals medical history of lung cancer s/p left upper lobectomy?2013, left thoracotomy and lingular resection 2009, excessive dynamic airway collapse (EDAC) s/p Tracheoplasty 2016 ,?COPD, stage IIIb chronic kidney disease, ALYSIA, hypertension, hyperlipidemia, multiple PEs on Eliquis and recent heart catheterization with ARMANI to OM 2 on 06/30. Discharge Plan Discharge Clinical Impression: Chest pain Patient Disposition: Home, Self-Care Instructions: Chest Pain (ED) Additional Instructions: DISCHARGE DIAGNOSES: Chest pain with radiation to the shoulder unclear cause. Heart attack excluded by blood testing HISTORY OF PRESENTATION: ?Chest pain EMERGENCY DEPARTMENT COURSE,TESTS, TREATMENTS: While in the ED today you had 2 consecutive blood tests excluding heart attack. You had a reassuring chest x-ray examination remainder of the blood work was normal and your examination showed tenderness of the chest wall. DISCHARGE MEDICATIONS: ?[We have made no changes to your regular medication regimen] FOLLOW-UP: ?Call your primary or general physician soon as possible to discuss your symptoms, your ED visit and to discuss follow up plans Please call your research instrumentation technician 1st thing tomorrow morning to establish follow up for this visit INSTRUCTIONS ?& RETURN PRECAUTIONS: If any symptoms change first call your primary physician, if it is after-hours your primary doctors office should have a provider teaching music lessons you can speak with. If the symptoms are severe or very concerning to you then call 911 or return to the ED. Return for severe or recurrent or worsening chest pain Todd Rothman MD Emergency Physician [facility] Prescriptions: No Action (DME) compr.stocking,thigh,reg,large Misc See Rx Instructions .Route Qty: 2 3RF Rx Instructions: Thigh High compression stockings 10-20mmHg (DME) blood-glucose meter [OneTouch Verio Flex meter] Misc See Rx Instructions .Route Qty: 1 0RF Rx Instructions: As directed (DME) lancets [OneTouch Delica Plus Lancet] 30 gauge misc See Rx Instructions .Route Qty: 100 11RF Rx Instructions: Test blood sugar 3 times per day insulin glargine [Lantus Solostar U-100 Insulin] 100 unit/mL (3 mL) insulin pen 25 unit subcut BEDTIME Qty: 15 3RF ipratropium-albuterol 0.5 mg-3 mg(2.5 mg base)/3 mL solution for nebulization 3 ml inhalation Q6H PRN (Reason: wheezing) 30 Days Qty: 180 3RF buspirone 10 mg tablet 10 mg PO BID Qty: 180 1RF Jardiance 25 mg tablet 25 mg PO DAILY Qty: 90 3RF carvedilol 6.25 mg tablet 6.25 mg PO BID 90 Days Qty: 180 3RF Rx Instructions: must administer with a meal/food diltiazem HCl 300 mg capsule,extended release 24hr 300 mg PO DAILY Qty: 90 3RF furosemide 20 mg tablet 20 mg PO DAILY Qty: 90 3RF Eliquis 5 mg tablet 5 mg PO BID Qty: 180 3RF citalopram 20 mg tablet 30 mg PO DAILY Qty: 135 3RF Ozempic 2 mg/dose (8 mg/3 mL) pen injector 2 mg subcut QWEEK Qty: 3 2RF (DME) OneTouch Verio test strips Strip See Rx Instructions .Route Qty: 100 11RF Rx Instructions: Test blood sugar 3 times per day (DME) FreeStyle Kelly 2 Sensor Kit See Rx Instructions .ROUTE .MEDSUPPLY Qty: 6 3RF Rx Instructions: As directed every 2 weeks atorvastatin 80 mg tablet 80 mg PO BEDTIME Qty: 90 0RF montelukast 10 mg tablet 10 mg PO BEDTIME Qty: 90 3RF (DME) walker Misc See Rx Instructions .Route Qty: 1 0RF Rx Instructions: As directed cholecalciferol (vitamin D3) 25 mcg (1,000 unit) Tablet 25 mcg PO DAILY acetaminophen 325 mg Tablet 650 mg PO Q6H PRN (Reason: pain) Qty: 30 0RF albuterol sulfate 90 mcg/actuation Hfa Aerosol Inhaler 2 puff INHALATION QID PRN (Reason: SOB/wheezing) budesonide-formoterol [Symbicort] 160-4.5 mcg/actuation HFA aerosol inhaler 2 puff INHALATION BID PRN (Reason: SOB) sennosides-docusate sodium [Stimulant Laxative Plus] 8.6-50 mg tablet 2 tab PO BID PRN sumatriptan succinate 50 mg tablet See Rx Instructions .ROUTE .COMPLEX Qty: 10 0RF Rx Instructions: take 1 tab at onset of headache; if no relief may repeat 1 tab after at least 2 hrs; max = 4 tabs/24 hr meclizine 12.5 mg tablet 12.5 mg PO TID PRN (Reason: dizziness) Qty: 14 1RF pantoprazole 40 mg tablet,delayed release (DR/EC) 40 mg PO .qd Qty: 90 3RF insulin lispro [Humalog KwikPen Insulin] 100 unit/mL insulin pen 1 sliding scale dose SUBCUT USEASDIRECTD Qty: 15 5RF Rx Instructions: <100, no Humalog, 100-150 6 units, 150-200 10 units, >200 14 units, before each meal, TID Interventions: ED Discharge Assessment Last Done: 05/03/25 21:17 Discharge Date/Time: 05/03/25 21:18 Print Language: Cymro
[2025-05-03 20:02] VITALS: BP 149/61; PULSE 66; RESP 16; O2SAT 97
--- NOTE | 2025-05-03 20:09 | PC.NURSE ---
pt medicated per MAR
[2025-05-03 20:16] LABS: D Dimer High Sensitivity 152 NG/ML
[2025-05-03 20:21] VITALS: BP 166/65
[2025-05-03 20:34] LABS: D Dimer High Sensitivity 181 NG/ML
[2025-05-03 20:37] LABS: Troponin-I High Sensitivity 8.7 ng/L (<3.5-17.0)
[2025-05-03 21:17] VITALS: BP 153/57; PULSE 88; RESP 16; TEMP 37.1; O2SAT 96
== END 2025-05-03 21:18 | disposition home or self-care (01) ==
PROVIDERS: Emergency Provider Emergency Medicine; PCP Internal Medicine
DX: R07.89 Other chest pain (principal); I25.10 Atherosclerotic heart disease of native coronary artery without angina pectoris; R11.0 Nausea; E11.9 Type 2 diabetes mellitus without complications; Z79.899 Other long term (current) drug therapy; Z79.4 Long term (current) use of insulin; Z87.891 Personal history of nicotine dependence
CPT/HCPCS: 36415; 71046; 80053; 83735; 84484; 85025; 85379; 85610; 93005; 99283; 99285

== ENCOUNTER → 2025-05-03 17:44 | Outpatient (BNV) | payer MEDICARE, SELFPAY | PROVIDERS: Emergency Provider Emergency Medicine; PCP Internal Medicine; Visit Provider Internal Medicine | DX: R00.0 Tachycardia, unspecified (principal) | CPT/HCPCS: 93010 ==

== ENCOUNTER 2025-05-08 13:53 | Outpatient (AMB) | payer MEDICARE, SELFPAY ==
[2025-05-08 14:01] VITALS: BP 102/60; PULSE 89; O2SAT 97; BMI 33.2
--- NOTE | 2025-05-08 14:01 | A.OFFVIS_ITS ---
Vital Signs 05/08/25 14:01 Height 5 ft 4 in Weight 193 lb 5.526 oz BMI 33.2 BP 102/60 Blood Pressure Location Rt brachial Position Sitting Pulse 89 Pulse Source Pulse Oximeter Pulse Oximetry (%) 97 Oxygen Delivery Method Room Air Intake Visit Reasons: Type 2 diabetes mellitus without complications Intake Note: New patient internally referred by PCP for T2DM Management. Last Diabetic Eye exam: Beginning of April 2025, [facility]. Seen Retina Specialist end of April 2025 [facility] Last Podiatry Visit: Does not see a C Unix Developer, would like her toes to be checked. Random Glucose: 100 mg/dl Hgb A1C: 6.7% 04/20/2025 Electromechanical Inspector Required: No Accompanied by: Daughter- Sima Allergies Latex, Natural Rubber Allergy (Severe, Verified 05/08/25 14:04) blisters Sulfa (Sulfonamide Antibiotics) (SULFA (SULFONAMIDE ANTIBIOTICS)) Allergy (Mild, Verified 05/08/25 14:04) ITCHING, rash nystatin Allergy (Unknown, Verified 05/08/25 14:04) rash isosorbide (From Imdur) Adverse Reaction (Unknown, Verified 05/08/25 14:04) HEADACHES, headache tizanidine Adverse Reaction (Unknown, Verified 05/08/25 14:04) weakness, Hellucination Medication List - Last Reconciled 05/08/25 by DEV Rene acetaminophen 650 mg (2 x 325 mg) PO Q6H PRN albuterol sulfate 90 mcg/actuation 2 puffs inhalation QID PRN apixaban (Eliquis) 5 mg PO BID atorvastatin 80 mg PO BEDTIME blood sugar diagnostic (OneTouch Verio test strips) Test blood sugar 3 times per day blood-glucose meter (OneTouch Verio Flex Meter) As directed blood-glucose sensor (FreeStyle Kelly 3 Plus Sensor device) Apply 1 new sensor every 15 days as directed to monitor blood glucose continuously. budesonide-formoterol 160-4.5 mcg/actuation (Symbicort) 2 puffs inhalation BID PRN buspirone 10 mg PO BID carvedilol 6.25 mg PO BID 90 days cholecalciferol (vitamin D3) 25 mcg PO DAILY citalopram 30 mg (1.5 x 20 mg) PO DAILY compr.stocking,thigh,reg,large Thigh High compression stockings 10-20mmHg diltiazem HCl ER 300 mg PO DAILY empagliflozin (Jardiance) 25 mg PO DAILY furosemide 20 mg PO DAILY glucose (Dex4 Glucose Quick Dissolve) 16 grams (4 x 4 gram) PO Q15M PRN insulin glargine (Lantus Solostar U-100 Insulin) 25 units (0.25 mL) subcut BEDTIME insulin lispro (Humalog KwikPen (U-100) Insulin) 1 sliding scale dose subcut USEASDIRECTD ipratropium-albuterol 0.5 mg-3 mg(2.5 mg base)/3 mL 3 mL inhalation Q6H PRN 30 days lancets (SunPodsuch Delica Plus Lancet) Test blood sugar 3 times per day meclizine 12.5 mg PO TID PRN montelukast 10 mg PO BEDTIME pantoprazole 40 mg PO .qd semaglutide (Ozempic) 2 mg (0.75 mL) subcut QWEEK sennosides-docusate sodium 8.6-50 mg (Stimulant Laxative Plus) 2 tabs PO BID PRN sumatriptan succinate take 1 tab at onset of headache; if no relief may repeat 1 tab after at least 2 hrs; max = 4 tabs/24 hr walker As directed HPI Comments Details: This is a 74-year-old female with a past medical history of aortic stenosis, coronary artery disease, atrial fibrillation, heart failure, hypertension, ALYSIA, asthma/COPD, anemia, CKD and diabetes here for an initial consult for diabetic management. She is with her daughter, Sima. She was diagnosed with gestational diabetes initially and then developed type 2 diabetes. Her mother also had diabetes. I reviewed her CGM data for the past 14 days: Very high (>250): 4% High (181-250): 31 % Target range (70-180): 65% Low (55-69): 0 % Very low (<55): 0% Hemoglobin a1c 6.7% 04/20/2025. Current medication regimen: Jardiance 25 mg, Lantus 25 units at bedtime, Humalog per sliding scale, Ozempic 2 mg weekly <100 no Humalog, 100-150 6 units, 150-200 10 units, >200 14 units, before each meal, TID She has vegetables and proteins in her diet, but she also has bread every day and sometimes has some juice. She used to walk for exercise, but she does not have transportation to the mall, and she fears falling outside alone. She uses a walker. Hypoglycemia symptoms: None Hyperglycemia symptoms: None Eye exam: Up-to-date Microvascular complications: neuropathy, nephropathy, moderate nonproliferative diabetic retinopathy OU, OD mild edema Macrovascular complications: CAD. Anticoagulated on Eliquis 5 mg b.i.d for Afib. Endorses cramping pain in b/l lower extremities when she walks a couple of blocks which started 3 or 4 months ago. No swelling. Improves with rest. D- dimer negative at ED 05/03/2025. Hyperlipidemia: treated with atorvastatin 80 mg. Patient says she was seen in the emergency room for chest pain at the end of April. Negative evaluation for ACS/PE. She has not seen her leather belt maker since then, and she has been having intermittent chest pains for a couple of months. Does not worsened with exertion. Denies shortness of breath or syncope. She was instructed to contact her leather belt maker and primary care provider for follow up. ROS: Constitutional: No unexplained weight loss, fever, chills. Respiratory: No shortness of breath. Cardiovascular: See HPI Gastrointestinal: No anorexia, nausea, vomiting or diarrhea. No abdominal pain Neurologic: No dizziness or syncope. Endorses numbness and tingling in her toes. Endocrine: No cold or heat intolerance. No polyuria or polydipsia. Physical exam: Neck: Supple, Full range of motion. No lymphadenopathy. No palpable thyroid masses. Respiratory: Clear to auscultation. Cardiovascular: S1 S2 regular. Systolic murmur present Neurologic: No focal neurological deficits. Extremities: No edema bilaterally. Intact DP pulses. Calves nontender. Bilateral onychomycosis. No open wounds. Calluses on the plantar surfaces of the feet. Moderately decreased vibratory sensation bilaterally. Intact sensation to monofilament bilaterally. 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 Father No problems noted. Brother Substance use disorder Brother Substance use disorder Social History Household Members: Family Household Members Other:: 2 Housing: House Do you presently have visiting nurse or other home services: No Alcohol intake: former Comment: weddings Patient Tobacco Use Status: Former Tobacco user Tobacco use type: Cigarette Cigarettes Per Day: 10 Years Smoked: 3 stopped 1992 e-Cigarette/Vaping Use: Never Used Second Hand Smoke Exposure: No Advance Directives Date on File: 06/29/23 service: No Current occupational status: retired Cognitive needs: No Hearing needs: No Vision needs: No Physical Exam Vital Signs: Last Vital Signs Pulse 89 05/08/25 14:01 BP 102/60 05/08/25 14:01 Pulse Ox 97 05/08/25 14:01 Oxygen Delivery Method Room Air 05/08/25 14:01 BMI result Body Mass Index 33.2 Results Reviewed Results Reviewed: Laboratory Last Values Glucose (Clinic) 100 mg/dL (60-115) 05/08/25 14:13 Laboratory Tests 04/20/25 04/20/25 05/03/25 14:38 14:45 17:59 Creatinine 1.31 Estimated GFR 39 AST 17 ALT 18 Triglycerides 121 Cholesterol 155 LDL Cholesterol, Calc 90 HDL Cholesterol 41 Vitamin B12 388 TSH 2.85 Urine Creatinine 57.48 Urine Microalbumin 67.0 Microalb/Creat Ratio 116.5 H Assessment & Plan Assessment & Plan (1) 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 2 diabetes mellitus: Code(s): E11.9 - Type 2 diabetes mellitus without complications Category: Medical (2) Hypertension: Code(s): I10 - Essential (primary) hypertension Category: Medical Qualifiers: Hypertension type: primary hypertension Qualified Code(s): I10 - Essential (primary) hypertension (3) Claudication of both lower extremities: Code(s): I73.9 - Peripheral vascular disease, unspecified Category: Medical (4) Diabetic neuropathy: Code(s): E11.40 - Type 2 diabetes mellitus with diabetic neuropathy, unspecified Category: Medical Qualifiers: Diabetes mellitus type: type 2 Diabetes mellitus complication detail: diabetic polyneuropathy Qualified Code(s): E11.42 - Type 2 diabetes mellitus with diabetic polyneuropathy Plan In summary this is a 74-year-old female with controlled type 2 diabetes with micro and macrovascular complications. The patient was instructed to continue her current medication regimen. We reviewed complications of type 2 diabetes. She describes possible claudication in her lower extremities with ambulation. Needs SUSAN. Ordered. Instructed to follow up with her primary care provider and leather belt maker regarding intermittent chest pains. Refer to nephrology due to CKD and microalbuminuria. Avoid nephrotoxic medications. She does not take NSAIDs. Referred to the dietitian for type 2 diabetes. Diabetic diet reviewed with the patient. Refer to podiatry. She is followed by ophthalmology and a retinal specialist. Reviewed treatment of hypoglycemia with the patient. Glucose tablets sent to the pharmacy. Written instructions given. Follow up in 3 months for type 2 diabetes. Orders: Orders US SUSAN complete Today I73.9 - Peripheral vascular disease, unspecified AMB Glucose Monitoring Today E11.9 - Type 2 diabetes mellitus without complications Referrals Nephrology Referral E11.22 - Type 2 diabetes mellitus with diabetic chronic kidney disease, N18.30 - Chronic kidney disease, stage 3 unspecified Director Cpg Nutrition Referral E11.65 - Type 2 diabetes mellitus with hy perglycemia Podiatry Referral E11.9 - Type 2 diabetes mellitus without complications, G62.9 - Polyneuropathy, unspecified, Z79.4 - FDC (current) use of insulin Medications: New blood-glucose sensor (FreeStyle Kelly 3 Plus Sensor device) Apply 1 new sensor every 15 days as directed to monitor blood glucose continuously. 2 ea 11RF glucose (Dex4 Glucose Quick Dissolve) until symptoms of low blood sugar are controlled 16 grams (4 x 4 gram) PO Q15M PRN 30 tabs 3RF hypoglycemia (blood sugar under 70) Changed From insulin lispro (Humalog KwikPen (U-100) Insulin) <100, no Humalog, 100-150 6 units, 150-200 10 units, >200 14 units, before each meal, TID 1 sliding scale dose subcut USEASDIRECTD 15 mL 5RF To insulin lispro (Humalog KwikPen (U-100) Insulin) <100 no Humalog, 100-150 6 units, 150-200 10 units, >200 14 units, before each meal, TID 1 sliding scale dose subcut USEASDIRECTD 15 mL 5RF Refilled insulin glargine (Lantus Solostar U-100 Insulin) 25 units (0.25 mL) subcut BEDTIME 15 mL 3RF lancets (OneTouch Delica Plus Lancet) Test blood sugar 3 times per day 100 ea 11RF E11.65 - Type 2 diabetes mellitus with hyperglycemia semaglutide (Ozempic) 2 mg (0.75 mL) subcut QWEEK 3 mL 2RF blood sugar diagnostic (OneTouch Verio test strips) Test blood sugar 3 times per day 100 ea 11RF E11.65 - Type 2 diabetes mellitus with hyperglycemia Discontinued flash glucose sensor (FreeStyle Kelly 2 Sensor kit) Discontinued Reason: Doctor's Order As directed every 2 weeks 6 ea 3RF E11.65 - Type 2 diabetes mellitus with hyperglycemia Patient Instructions: Please call the leather belt maker regarding the chest pain. If you experience low blood sugar, treat this by eating a chewable fruit candy like skittles or jelly beans (about 8 pieces), 4 ounces (1/2 cup) of fruit juice (not diet), 1 tablespoon of honey or 4 glucose tablets. If your blood sugar is under 50, take double the amount of one of the above. Recheck your blood sugar in 15 minutes. Kelly 3 plus sensors have been submitted. You will be contacted to schedule the ultrasound for legs, the appointment for podiatry and nephrology and saw cleaner. Continue your current medications. Coding Level of Care Code New Pt Level 5 (94133) Complex EM visit Add On G2211 Diagnoses 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 2 diabetes mellitus E11.9 Primary hypertension I10 Hypertension type: primary hypertension Claudication of both lower extremities I73.9 Diabetic polyneuropathy associated with type 2 diabetes mellitus E11.42 Diabetes mellitus type: type 2 Diabetes mellitus complication detail: diabetic polyneuropathy Time Spent (min) 64 Comment Direct patient care, chart review, completing documentation
[2025-05-08 14:17] LABS: Glucose, Whole Blood 100 mg/dL (60-115)
--- OUTSIDE RECORDS SUMMARY | 2025-05-08 15:08 | XMS_ITS | Clinical Summary ---
Author Organization [facility] Facility Address [address] [place] [id number] Care Team Providers Care Channel Worker Name Role Phone Unavailable Primary Care Provider [...]
--- OUTSIDE RECORDS SUMMARY | 2025-05-08 15:08 | XMS_ITS | Clinical Summary ---
Author Organization [facility] it Address [address] [place] [id number] Care Team Providers Care Sheet Cutter Name Role Phone Ben Borges MD Primary [...] nts (1 - 1-dose 75+ series) 2023 Depression Screening 09/06/2024 COVID-19 Vaccine (2 - 2024-2 6 season) 2025 12/17/2021 Influenza Vaccine (#1) 2025 HIB Vaccines [...] age to complete this topic Care Teams Sheet Cutter Relationship Specialty Start Date End Date Ben Borges MD [address] [place] [address] PCP - General Internal Medicine 05/04/22
== END 2025-05-08 15:18 | disposition home or self-care (01) ==
LOC: HO.ENCR 13:54
PROVIDERS: PCP Internal Medicine; Visit Provider Physician Assistant Medical
DX: E11.42 Type 2 diabetes mellitus with diabetic polyneuropathy (principal); I10 Essential (primary) hypertension; I73.9 Peripheral vascular disease, unspecified

== ENCOUNTER → 2025-05-08 13:53 | Outpatient (BNVA) | payer MEDICARE, SELFPAY | PROVIDERS: PCP Internal Medicine; Visit Provider Physician Assistant Medical | DX: E11.42 Type 2 diabetes mellitus with diabetic polyneuropathy (principal); I10 Essential (primary) hypertension; I73.9 Peripheral vascular disease, unspecified | CPT/HCPCS: 82947; 99202 ==

== ENCOUNTER 2025-05-16 13:49 | Outpatient (REF) | payer MEDICARE, SELFPAY ==
[2025-05-16 15:03] LABS: Resp Syncy Virus RNA Qual PCR NEGATIVE (Negative); SARS COV2 PCR INHOUSE NEGATIVE (Negative)
[2025-05-16 15:45] LABS: Alanine Aminotransferase 14 U/L (0-31); Albumin Level 4.0 g/dL (3.5-5.0); Alkaline Phosphatase 135 U/L (39-117); Anion Gap 16 (12-20); Aspartate Amino Transferase 22 U/L (5-31); Blood Urea Nitrogen 28 mg/dL (9-16); Calcium 8.8 mg/dL (8.4-10.2); Carbon Dioxide 23 mmol/L (22-29); Chloride 106 mmol/L (96-108); Estimated Glomerular Filt Rate 36; Potassium 4.6 mmol/L (3.3-5.1); Sodium 140 mmol/L (135-145); Total Protein 7.3 g/dL (6.5-8.0)
--- OUTSIDE RECORDS SUMMARY | 2025-05-16 16:55 | XMS_ITS | Clinical Summary ---
Author Organization [facility] Address [address] [place] [phone] Phone Care Team Providers Care Charcoal Kiln Burner Name Role Phone Garland Vázquez MD Primary Care Provider [phone] Immunizations Name Administration Dates Next Due Pfizer [...] Health Maintenance Due Date Last Done Comments Diabetes: Annual GFR (Glomer ular Filtration Rate) 1948 Diabetes: Annual Foot Exam 1958 Diabetes: Annual Retina Eye Exam 1958 DTaP,Tdap,and Td Vaccines (1 - Tdap) 1967 Pneumococcal Vaccine: 50+ Ye ars (1 of 2 - PCV) 1967 Zoster Vaccines (1 of 2) 1998 Cholesterol Screening (Lipid Panel) 08/19/2022 Falls Risk Assessment 08/19/2022 Hepatitis C Screening 08/19/2022 Osteoporosis Screening (Bone Density Screening) 08/19/2022 Social Influencers of Health Screening 08/19/2022 RSV Immunization Adult Patie nts (1 - 1-dose 75+ series) 2023 Depression Screening 09/06/2024 COVID-19 Vaccine (2 - 2024-2 6 season) 2025 12/17/2021 Influenza Vaccine (#1) 2025 Diabetes: Annual Urine Albumin-Creatinine Ratio (uACR) 05/10/2025 Diabetes: Blood Sugar Contro l Test (HGBA1C) 05/10/2025 HIB Vaccines Aged Out No longer eligi [...] patient's age to complete this topic Insurance [facility] Care Teams Charcoal Kiln Burner Relationship Specialty Start Date End Date Garland Vázquez MD [address] [place] [address] PCP - General Internal Medicine 05/11/25
--- OUTSIDE RECORDS SUMMARY | 2025-05-16 16:55 | XMS_ITS | Clinical Summary ---
Author Organization [facility] Facility Address [address] [place] [id number] Care Team Providers Care Neonatal Nurse Name Role Phone Unavailable Primary Care Provider [...]
== END 2025-05-16 13:50 | disposition home or self-care (01) ==
LOC: HO.LAB 13:49
PROVIDERS: Visit Provider Internal Medicine
DX: E11.65 Type 2 diabetes mellitus with hyperglycemia (principal); R05.9 Cough, unspecified
CPT/HCPCS: 80053; 82570; 87637

== ENCOUNTER 2025-05-18 15:06 | Outpatient (AMB) | payer MEDICARE, SELFPAY ==
--- NOTE | 2025-05-18 15:20 | A.OFFPC_ITS ---
Vital Signs 05/18/25 15:21 Height 5 ft 4 in Weight 191 lb BMI 32.8 BP 140/60 H Blood Pressure Location Lt brachial Position Sitting Pulse 84 Pulse Source Pulse Oximeter Temp 97.1 F Temp Source Temporal Artery Scan Pulse Oximetry (%) 98 Oxygen Delivery Method Room Air Intake Visit Reasons: [facility] 05/03 CHEST PAIN L ARM Intake Note: Patient is here to follow-up after a visit the emergency department at [facility] on 05/03/25. Urban Planning Professor Required: No Community Health Program Representative: Present Accompanied by: Daughter Allergies Latex, Natural Rubber Allergy (Severe, Verified 05/18/25 15:21) blisters Sulfa (Sulfonamide Antibiotics) (SULFA (SULFONAMIDE ANTIBIOTICS)) Allergy (Mild, Verified 05/18/25 15:21) ITCHING, rash nystatin Allergy (Unknown, Verified 05/18/25 15:21) rash isosorbide (From Imdur) Adverse Reaction (Unknown, Verified 05/18/25 15:21) HEADACHES, headache tizanidine Adverse Reaction (Unknown, Verified 05/18/25 15:21) weakness, Hellucination Tobacco use date assessed: 05/18/25 Fall risk assessment: 1 Fall in past year Last assessed Fall Risk: 05/18/25 Dental Screening Dental Screen Date: 04/06/25 HPI HPI Comments History of Present Illness Details 74 y/o Female patient who presents to [facility] today for EDF. accompanied by daughter who provides history. She was admitted at [facility] on 05/03 for an evaluation and treatment of Chest Pains. Reports that the Chest Pain is located at the Epigastric region. She did have ECG and Lab work which were both Unremarkable. She does have a significant cardiac h/o - Aortic Stenosis, CAD, Afib and HF. She is being followed by [facility] cardiology. Pt does have h/o GERD and currently takes Pantoprazole 40 mg Daily. She reports eating alot of Tomatoes in her sandwiches, and she knows this usually gives her Heartburn. Pt and Daughter report that she has been experiencing SOB with any movement - she does have h/o COPD and she has been using her Symbicort inhaler PRN. The prescription is for twice a day. 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 Vitamin D deficiency DM type 2 (diabetes mellitus, type 2) CAD (coronary artery disease) Non-ST elevation CT (NSTEMI) Patellofemoral arthritis of right knee Right knee pain longterm current use of anticoagulant Abnormal stress test Hypertension Obstructive sleep apnea Asthma with COPD Anemia CKD stage 3 due to type 2 diabetes mellitus Tracheomalacia, acquired History of pulmonary embolism AG (acute kidney injury) Paroxysmal atrial fibrillation Pulmonary embolism Obesity Dyslipidemia Respiratory failure Surgical History History of carpal tunnel surgery History of cholecystectomy History of lobectomy of lung Status post tracheoplasty History of cardiac cath Family History Mother No problems noted. Father No problems noted. Brother Substance use disorder Brother Substance use disorder Social History Household Members: Family Household Members Other:: 2 Housing: House Do you presently have visiting nurse or other home services: No Alcohol intake: former Comment: weddings Patient Tobacco Use Status: Former Tobacco user Tobacco use type: Cigarette Cigarettes Per Day: 10 Years Smoked: 3 stopped 1993 Packs per year/per ci.00 e-Cigarette/Vaping Use: Never Used Second Hand Smoke Exposure: Yes Advance Directives Date on File: 06/29/23 service: No Current occupational status: retired Cognitive needs: No Hearing needs: No Vision needs: No Questionnaire Thrive Questionnaire Date Thrive assessed: 12/14/24 I am a: Patient What is your living situation today?: I have a steady place to live Within the past 12 months, did the food you bought not last and you didn't have the money to get more?: Never true Within the past 12 months, did you worry whether your food would run out before you got money to buy more?: Never true Do you have trouble paying for medicines?: No Do you have trouble getting transportation to medical appointments?: No Do you have trouble paying your heating and electricity bill?: No Do you have trouble taking care of your child, family member or friend?: No Do you have trouble with day-to-day activities such as bathing, preparing meals, shopping, managing finances, etc.?: No Are you currently unemployed and looking for a job?: No Are you interested in more education?: No Please select the resources that you would like help with: None THRIVE Score: 0 DOMINIQUE-7 AMB Questionnaire DOMINIQUE-7 Date DOMINIQUE - 7 assessed: 04/06/25 Source: Developed by Drs. Jeronimo Wallis, Saige Barrios, Nj Will and colleagues, with an educational katharine from [email or web address]. Review of Systems Const All systems reviewed & are unremarkable except as noted in HPI and below Physical exam (Primary Care) Vital Signs: Last Vital Signs Temp 97.1 F 05/18/25 15:21 Pulse 84 05/18/25 15:21 BP 140/60 H 05/18/25 15:21 Pulse Ox 98 05/18/25 15:21 Oxygen Delivery Method Room Air 05/18/25 15:21 BMI result Body Mass Index 32.8 Tobacco/Smoking Status: Tobacco use Status Tobacco use date assessed 05/18/25 05/18/25 15:25 Patient Tobacco Use Status Former Tobacco user 05/18/25 15:20 Tobacco use type Cigarette 05/18/25 15:20 e-Cigarette/Vaping Use Never Used 05/18/25 15:20 Thrive Assessment: Date of Thrive Assessment Date Thrive assessed 12/14/24 05/18/25 15:20 Const General: comfortable and no acute distress Nutritional Appearance: obese Orientation/consciousness: patient oriented x3 Resp Effort & Inspection: normal respiratory effort and able to speak in complete sentences Auscultation: clear to auscultation bilaterally, no crackles, no rales, no rhonchi and no wheezes Cardio Rhythm: abnormal rhythm regularly irregular Heart sounds: S1 normal heart sound present and S2 normal heart sound present Neuro General: patient oriented x3, gait normal and moves all extremities Psych Speech and movement: Normal speech and movement present Coding Level of Care Code Est Pt Level 4 (22681) Diagnoses Other chest pain R07.89 Chest pain type: other chest pain Gastroesophageal reflux disease without esophagitis K21.9 Esophagitis presence: without esophagitis Chronic obstructive pulmonary disease, unspecified COPD type J44.9 COPD type: unspecified COPD Time Spent (min) 20 Assessment & Plan Assessment & Plan (1) Chest pain: Code(s): R07.9 - Chest pain, unspecified Category: Medical Qualifiers: Chest pain type: other chest pain Qualified Code(s): R07.89 - Other chest pain Plan: Stable - resolved. Ordered Nitro Sublingual Tabs. F/u with Cardiology as scheduled. (2) GERD (gastroesophageal reflux disease): Code(s): K21.9 - Gastro-esophageal reflux disease without esophagitis Category: Medical Qualifiers: Esophagitis presence: without esophagitis Qualified Code(s): K21.9 - Gastro-esophageal reflux disease without esophagitis Plan: Advised BLAND diet; avoid Any Acidic Foods like Tomatoes, Spicy and Oily foods. Ordered Famotidine (Renal Dose) every other day at bedtime. (3) COPD (chronic obstructive pulmonary disease): Code(s): J44.9 - Chronic obstructive pulmonary disease, unspecified Category: Medical Qualifiers: COPD type: unspecified COPD Qualified Code(s): J44.9 - Chronic obstructive pulmonary disease, unspecified Plan: Advised to use Symbicort Inhaler as scheduled. Medications: New nitroglycerin Place 1 (ONE) tablet under the tongue at onset of chest pain; repeat every 5 minutes if pain persists; may administer up to 3 tablets in a 15-minute period. 0.3 mg sublingual Q5M PRN 20 tabs 0RF chest pain R07.9 - Chest pain, unspecified famotidine TAKE 1 (ONE) TABLET EVERY OTHER DAY AT BEDTIME. 20 mg PO BEDTIME 20 tabs 0RF K21.9 - Gastro-esophageal reflux disease without esophagitis
[2025-05-18 15:21] VITALS: BP 140/60; PULSE 84; TEMP 36.2; O2SAT 98; BMI 32.8
--- OUTSIDE RECORDS SUMMARY | 2025-05-18 17:36 | XMS_ITS | Clinical Summary ---
Author Organization [facility] Address [address] [place] [phone] Phone Care Team Providers Care Hypoid Gear Tester Name Role Phone Garland Vázquez MD Primary Care Provider [phone] Immunizations Name Administration Dates Next Due Pfizer [...] patient's age to complete this topic Insurance [facility] Care Teams Hypoid Gear Tester Relationship Specialty Start Date End Date Garland Vázquez MD [address] [place] [address] PCP - General Internal Medicine 05/11/25
--- OUTSIDE RECORDS SUMMARY | 2025-05-18 17:36 | XMS_ITS | Clinical Summary ---
Author Organization [facility] Address [address] [place] [id number] Care Team Providers Care Cleaner Assistant Name Role Phone Unavailable Primary Care [...]
== END 2025-05-18 16:08 | disposition home or self-care (01) ==
LOC: HO.HMCH 15:07
PROVIDERS: PCP Internal Medicine; Visit Provider Nurse Practitioner Family
DX: R07.89 Other chest pain (principal); K21.9 Gastro-esophageal reflux disease without esophagitis; J44.9 Chronic obstructive pulmonary disease, unspecified

== ENCOUNTER → 2025-05-18 15:06 | Outpatient (BNVA) | payer MEDICARE, SELFPAY | PROVIDERS: PCP Internal Medicine; Visit Provider Nurse Practitioner Family | DX: K21.9 Gastro-esophageal reflux disease without esophagitis (principal); R07.89 Other chest pain; J44.9 Chronic obstructive pulmonary disease, unspecified | CPT/HCPCS: 99212 ==

== ENCOUNTER 2025-05-28 14:59 | Outpatient (AMB) | payer MEDICARE, SELFPAY ==
[2025-05-28 15:03] VITALS: BP 128/30; PULSE 86; O2SAT 99; BMI 32.6
--- NOTE | 2025-05-28 15:03 | HO.NEPHOV ---
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: No Accompanied by: Daughter Allergies Latex, Natural Rubber Allergy (Severe, Verified 05/18/25 15:21) blisters Sulfa (Sulfonamide Antibiotics) (SULFA (SULFONAMIDE ANTIBIOTICS)) Allergy (Mild, Verified 05/18/25 15:21) ITCHING, rash nystatin Allergy (Unknown, Verified 05/18/25 15:21) rash isosorbide (From Imdur) Adverse Reaction (Unknown, Verified 05/18/25 15:21) HEADACHES, headache tizanidine Adverse Reaction (Unknown, Verified 05/18/25 15:21) weakness, Hellucination Medication List - Last Reconciled 05/28/25 by Corby Gong MD acetaminophen 650 mg (2 x 325 mg) PO Q6H PRN albuterol sulfate 90 mcg/actuation 2 puffs inhalation QID PRN apixaban (Eliquis) 5 mg PO BID atorvastatin 80 mg PO BEDTIME blood sugar diagnostic (OneTouch Verio test strips) Test blood sugar 3 times per day blood-glucose meter (OneTouch Verio Flex Meter) As directed blood-glucose sensor (SnaptripStyle Kelly 3 Plus Sensor device) Apply 1 new sensor every 15 days as directed to monitor blood glucose continuously. budesonide-formoterol 160-4.5 mcg/actuation (Symbicort) 2 puffs inhalation BID PRN buspirone 10 mg PO BID carvedilol 6.25 mg PO BID 90 days cholecalciferol (vitamin D3) 25 mcg PO DAILY citalopram 30 mg (1.5 x 20 mg) PO DAILY compr.stocking,thigh,reg,large Thigh High compression stockings 10-20mmHg diltiazem HCl ER 300 mg PO DAILY empagliflozin (Jardiance) 25 mg PO DAILY famotidine 20 mg PO Q OTHER DAY furosemide 20 mg PO DAILY glucose (Dex4 Glucose Quick Dissolve) 16 grams (4 x 4 gram) PO Q15M PRN insulin glargine (Lantus Solostar U-100 Insulin) 25 units (0.25 mL) subcut BEDTIME insulin lispro (Humalog KwikPen (U-100) Insulin) 1 sliding scale dose subcut USEASDIRECTD ipratropium-albuterol 0.5 mg-3 mg(2.5 mg base)/3 mL 3 mL inhalation Q6H PRN 30 days lancets (OneTouch Delica Plus Lancet) Test blood sugar 3 times per day meclizine 12.5 mg PO TID PRN montelukast 10 mg PO BEDTIME nitroglycerin 0.3 mg sublingual Q5M PRN pantoprazole 40 mg PO .qd semaglutide (Ozempic) 2 mg (0.75 mL) subcut QWEEK sennosides-docusate sodium 8.6-50 mg (Stimulant Laxative Plus) 2 tabs PO BID PRN sumatriptan succinate take 1 tab at onset of headache; if no relief may repeat 1 tab after at least 2 hrs; max = 4 tabs/24 hr walker As directed HPI Comments Details: - The patient is a 74-year-old female presenting with chronic kidney disease. - Chronic Kidney Disease: Fluctuating kidney function for 3-4 years, creatinine 1.0-1.6 mg/dL. - Nonproliferative Diabetic Retinopathy: Related to long-standing diabetes. - Proteinuria: Minimal proteinuria, urine protein-creatinine ratio 348 mg/g. - COPD: History of COPD and congestive heart failure, previous lung collapse. - Diabetes Mellitus: 10-year history, HbA1c around 6.0. - Hypertension: Fluctuating blood pressure, medication adjustments needed. She has had episodes were systolic blood pressure has been around 190 out no new mm Hg. She has also had episodes Of very low blood pressure. History of coronary artery disease status post stent placement. - Congestive Heart Failure: History of heart failure, requiring hospitalization in the past. - Atrial Fibrillation: Managed with carvedilol and diltiazem. Anemia. Hemoglobin has trended down from 12.4 down from 9.8. MCV is rather low. Ferritin was low at 19. She denies any blood loss In December of 2023 cat scan revealed atrophic right kidney measuring 7.1 cm. Patient Instructions - Monitor blood pressure at home regularly and report any significant changes. - Follow up with ophthalmology for diabetic retinopathy monitoring. - Take medications as prescribed, including carvedilol and diltiazem. - Schedule an ultrasound for kidney artery assessment. - Maintain a balanced diet to manage diabetes and blood pressure. - Avoid NSAIDs to prevent kidney function decline. Patient was informed and verbally consented to the use of an ambient scribe for clinic note documentation during this visit. COUNT INCLUDES THE [facility] Medical History (Updated 05/28/25 @ 15:33 by Corby Gong MD) COPD (chronic obstructive pulmonary disease) GERD (gastroesophageal reflux disease) Diabetic neuropathy Claudication of both lower extremities 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 2 diabetes mellitus solution lead (current) use of insulin Vitamin D deficiency DM type 2 (diabetes mellitus, type 2) CAD (coronary artery disease) Non-ST elevation [place] (NSTEMI) Patellofemoral arthritis of right knee Right knee pain longterm current use of anticoagulant Abnormal stress test Hypertension Obstructive sleep apnea Asthma with COPD Anemia CKD stage 3 due to type 2 diabetes mellitus Tracheomalacia, acquired History of pulmonary embolism [place] (acute kidney injury) Paroxysmal atrial fibrillation Pulmonary embolism Obesity Dyslipidemia Respiratory failure Surgical History History of carpal tunnel surgery History of cholecystectomy History of lobectomy of lung Status post tracheoplasty History of cardiac cath Family History Mother No problems noted. Father No problems noted. Brother Substance use disorder Brother Substance use disorder Social History Household Members: Family Household Members Other:: 2 Housing: House Do you presently have visiting nurse or other home services: No Alcohol intake: former Comment: weddings Patient Tobacco Use Status: Former Tobacco user Tobacco use type: Cigarette Cigarettes Per Day: 10 Years Smoked: 3 stopped 1992 e-Cigarette/Vaping Use: Never Used Second Hand Smoke Exposure: Yes Advance Directives Date on File: 06/29/23 service: No Current occupational status: retired Cognitive needs: No Hearing needs: No Vision needs: No Review of Systems Const Denies fever(s) and Denies weight loss Card Denies chest pain Resp Denies cough and Denies hemoptysis GI Denies abdominal pain, Denies diarrhea and Denies nausea Musc Reports back pain Neuro Denies focal weakness Physical Exam Vital Signs: Last Vital Signs Pulse 86 05/28/25 15:03 BP 128/30 L 05/28/25 15:03 Pulse Ox 99 05/28/25 15:03 Oxygen Delivery Method Room Air 05/28/25 15:03 BMI result Body Mass Index 32.6 Blood pressure 100/40. No orthostasis. Symmetrical in both upper extremities Comfortable Neck supple no JVD. Lungs entry equal no rales. Heart S1-S2 heard no gallop or rub. Abdomen soft nontender. Neuro alert awake oriented. No asterixis. Extremities no edema. Results Reviewed Results Reviewed: December 2023 Abd USG RIGHT KIDNEY: Atrophy with increased parenchymal echotexture. No hydronephrosis. No renal calculi or focal parenchymal lesions. The kidney measures 7.1 cm in maximum dimension. Questionable area of nodularity measured on the examination likely represents area of cortical lobulation as seen on the prior CT scans LEFT KIDNEY: Normal. No hydronephrosis. No renal calculi or focal parenchymal lesions. The kidney measures 10.9 cm in maximum dimension. Nephrology Results: Hgb, (12.0-16.0) 9.9 g/dl L 05/03/25 WBC, (4.8-10.8) 8.1 X10*3/uL 05/03/25 Plt Count, (160-400) 283 X10*3/uL Δ 05/03/25 Sodium, (135-145) 140 mmol/L 05/16/25 Potassium, (3.3-5.1) 4.6 mmol/L 05/16/25 Chloride, (96-108) 106 mmol/L 05/16/25 Carbon Dioxide, (22-29) 23 mmol/L 05/16/25 BUN, (9-16) 28 mg/dL H 05/16/25 Creatinine, (0.5-1.4) 1.43 mg/dL H 05/16/25 Calcium, (8.4-10.2) 8.8 mg/dL 05/16/25 Urine Creatinine 140.74 mg/dL 05/16/25 Assessment & Plan Assessment & Plan (1) Hypertension: Code(s): I10 - Essential (primary) hypertension Category: Medical Qualifiers: Hypertension type: primary hypertension Qualified Code(s): I10 - Essential (primary) hypertension (2) CKD stage 3 due to type 2 diabetes mellitus: Code(s): E11.22 - Type 2 diabetes mellitus with diabetic chronic kidney disease; N18.30 - Chronic kidney disease, stage 3 unspecified Category: Medical (3) Anemia: Comment: Negative EGD 12/28, colonoscopy in 2021 consistent with multiple polyps, recommended repeat colonoscopy was in 1 year, postpone it due to hospitalization for NSTEMI 06/28, improved on Iron supplement Code(s): D64.9 - Anemia, unspecified Category: Medical Qualifiers: Anemia type: unspecified type Qualified Code(s): D64.9 - Anemia, unspecified Plan 1. Chronic Kidney Disease Baseline creatinine is between 1.0 to 1.4. The fluctuation is most likely hemodynamic She probably has underlying hypertensive nephrosclerosis. Recent urine sediments were bland and no evidence of glomerular nephritis or interstitial disease. - Monitor kidney function with regular serum creatinine tests. 3. Proteinuria Non nephrotic Most likely due to underlying diabetic kidney disease. - Monitor urine protein levels periodically. 4. Chronic Obstructive Pulmonary Disease (Copd) - Continue current management for COPD, monitor for exacerbations. 5. Diabetes Mellitus - Maintain HbA1c below 7.0 with current diabetes management plan. 6. Hypertension There has been wide fluctuations in the blood pressure. Given the fact that the right kidney is atrophic renal artery stenosis should be considered. We will obtain Doppler of renal arteries. Currently blood pressure is rather low and she is symptomatic. Decrease diltiazem from 300 mg down to 240. Encouraged to monitor blood pressure at home. 7. Congestive Heart Failure - Monitor for signs of fluid overload, can decrease Lasix from 20 mg daily to 20 mg p.r.n. Stay on low-sodium diet Monitor daily weights 8. Atrial Fibrillation - Continue management with carvedilol and diltiazem, monitor heart rate. 9. Anemia MCV is low - Check iron levels and hemoglobin, consider iron supplementation. Orders: Orders US renal doppler Today I10 - Essential (primary) hypertension, N26.1 - Atrophy of kidney (terminal) Total Protein Urine Random Today E11.22 - Type 2 diabetes mellitus with diabetic chronic kidney disease, I10 - Essential (primary) hypertension, N18.30 - Chronic kidney disease, stage 3 unspecified, N26.1 - Atrophy of kidney (terminal) IRON PROFILE Today E11.22 - Type 2 diabetes mellitus with diabetic chronic kidney disease, I10 - Essential (primary) hypertension, N18.30 - Chronic kidney disease, stage 3 unspecified, N26.1 - Atrophy of kidney (terminal) Ferritin Today E11.22 - Type 2 diabetes mellitus with diabetic chronic kidney disease, I10 - Essential (primary) hypertension, N18.30 - Chronic kidney disease, stage 3 unspecified, N26.1 - Atrophy of kidney (terminal) Basic Metabolic Panel Today E11.22 - Type 2 diabetes mellitus with diabetic chronic kidney disease, I10 - Essential (primary) hypertension, N18.30 - Chronic kidney disease, stage 3 unspecified, N26.1 - Atrophy of kidney (terminal) Complete Blood Count Auto Diff Today E11.22 - Type 2 diabetes mellitus with diabetic chronic kidney disease, I10 - Essential (primary) hypertension, N18.30 - Chronic kidney disease, stage 3 unspecified, N26.1 - Atrophy of kidney (terminal) Creatinine Urine Today E11. - Type 2 diabetes mellitus with diabetic chronic kidney disease, I10 - Essential (primary) hypertension, N18.30 - Chronic kidney disease, stage 3 unspecified, N26.1 - Atrophy of kidney (terminal) UA and rflx microscopic Today E11.22 - Type 2 diabetes mellitus with diabetic chronic kidney disease, I10 - Essential (primary) hypertension, N18.30 - Chronic kidney disease, stage 3 unspecified, N26.1 - Atrophy of kidney (terminal) Medications: New diltiazem HCl CD (Cartia XT) 240 mg PO DAILY 90 caps 0RF Discontinued diltiazem HCl ER Discontinued Reason: Doctor's Order 300 mg PO DAILY 90 caps 3RF Coding Level of Care Code New Pt Level 5 (15489) Diagnoses Primary hypertension I10 Hypertension type: primary hypertension CKD stage 3 due to type 2 diabetes mellitus E11.; N18.30 Anemia, unspecified type D64.9 Anemia type: unspecified type Time Spent (min) 45
== END 2025-05-28 15:42 | disposition home or self-care (01) ==
LOC: HO.HKA 15:00
PROVIDERS: PCP Internal Medicine; Referring Provider Physician Assistant Medical; Visit Provider Internal Medicine Hypertension Specialist
DX: I10 Essential (primary) hypertension (principal); E11.22 Type 2 diabetes mellitus with diabetic chronic kidney disease; N18.30 Chronic kidney disease, stage 3 unspecified; D64.9 Anemia, unspecified
CPT/HCPCS: 99215

== ENCOUNTER → 2025-05-28 14:59 | Outpatient (BNVA) | payer MEDICARE, SELFPAY | PROVIDERS: PCP Internal Medicine; Referring Provider Physician Assistant Medical; Visit Provider Internal Medicine Hypertension Specialist | DX: I10 Essential (primary) hypertension (principal); N18.30 Chronic kidney disease, stage 3 unspecified; D63.1 Anemia in chronic kidney disease; E11.22 Type 2 diabetes mellitus with diabetic chronic kidney disease; N26.1 Atrophy of kidney (terminal); J44.9 Chronic obstructive pulmonary disease, unspecified; I50.9 Heart failure, unspecified; R80.9 Proteinuria, unspecified | CPT/HCPCS: 99212 ==

== ENCOUNTER 2025-05-29 09:17 | Outpatient (AMB) | payer MEDICARE, SELFPAY ==
[2025-05-29 09:40] VITALS: BMI 32.5
--- NOTE | 2025-05-29 09:40 | MHC.AMNUTRGE ---
VS Expanded 05/29/25 09:40 Height 5 ft 4 in Weight 189 lb 3 oz BMI 32.5 Intake Visit Reasons: Type 2 diabetes mellitus with hyperglycemia Allergies Latex, Natural Rubber Allergy (Severe, Verified 05/18/25 15:21) blisters Sulfa (Sulfonamide Antibiotics) (SULFA (SULFONAMIDE ANTIBIOTICS)) Allergy (Mild, Verified 05/18/25 15:21) ITCHING, rash nystatin Allergy (Unknown, Verified 05/18/25 15:21) rash isosorbide (From Imdur) Adverse Reaction (Unknown, Verified 05/18/25 15:21) HEADACHES, headache tizanidine Adverse Reaction (Unknown, Verified 05/18/25 15:21) weakness, Hellucination Nutrition Presentation Details: Pt presents for MNT for T2DM Pt reports working on diet modifications, reducin on sugar food frequency fruits: 1/d vedaily dairy 1-2/d fish 0-1/wk beverage: water, juices , coffee physical activities : ADL etoh/smoking--- B: 2 eggs with butter and toast coffee and fruits noon sandwich with fruits cold cut and bread dinner: sand or cereal or meat/potato or chips /somthing fast BS Monitoring Most Recent Diabetes Results: Creatinine, (0.5-1.4) 1.36 mg/dL 05/29/25 BUN, (9-16) 24 mg/dL H 05/29/25 Sodium, (135-145) 142 mmol/L 05/29/25 Potassium, (3.3-5.1) 4.0 mmol/L 05/29/25 Chloride, (96-108) 107 mmol/L 05/29/25 Carbon Dioxide, (22-29) 30 mmol/L H 05/29/25 Calcium, (8.4-10.2) 8.8 mg/dL 05/29/25 AST, (5-31) 22 U/L 05/16/25 ALT, (0-31) 14 U/L 05/16/25 Total Protein, (6.5-8.0) 7.3 g/dL 05/16/25 Albumin, (3.5-5.0) 4.0 g/dL 05/16/25 [facility]-C[facility]t.Jeor Equation Height: 5 ft 4 in Weight: 189 lb Resting Metabolic Rate: 1337.51 Calculated Activity Level: Sedentary Calories Needed to Maintain Weight: 1605.01 Diagnosis Nutrition problem #1: food nutri know defi As related to (etiology) #1: diagnosis As evidenced by (sign/symptom) #1: knowledge deficit of diet [facility] Medical History (Updated 05/28/25 @ 15:33 by Corby Gong MD) COPD (chronic obstructive pulmonary disease) GERD (gastroesophageal reflux disease) Diabetic neuropathy Claudication of both lower extremities 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 2 diabetes mellitus 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 (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) use of insulin Vitamin D deficiency DM type 2 (diabetes mellitus, type 2) CAD (coronary artery disease) Non-ST elevation [place] (NSTEMI) Patellofemoral arthritis of right knee Right knee pain prison current use of anticoagulant Abnormal stress test Hypertension Obstructive sleep apnea Asthma with COPD Anemia CKD stage 3 due to type 2 diabetes mellitus Tracheomalacia, acquired History of pulmonary embolism AG (acute kidney injury) Paroxysmal atrial fibrillation Pulmonary embolism Obesity Dyslipidemia Respiratory failure Surgical History History of carpal tunnel surgery History of cholecystectomy History of lobectomy of lung Status post tracheoplasty History of cardiac cath Family History Mother No problems noted. Father No problems noted. Brother Substance use disorder Brother Substance use disorder Social History Household Members: Family Household Members Other:: 2 Housing: House Do you presently have visiting nurse or other home services: No Alcohol intake: former Comment: weddings Patient Tobacco Use Status: Former Tobacco user Tobacco use type: Cigarette Cigarettes Per Day: 10 Years Smoked: 3 stopped 1992 e-Cigarette/Vaping Use: Never Used Second Hand Smoke Exposure: Yes Advance Directives Date on File: 06/29/23 service: No Current occupational status: retired Cognitive needs: No Hearing needs: No Vision needs: No Assessment & Plan Assessment & Plan (1) DM type 2 (diabetes mellitus, type 2): Code(s): E11.9 - Type 2 diabetes mellitus without complications Category: Medical Plan: current wt: 86 kg ( 05/31 ) est kcal needs as per MSJ: 1600 est protein needs as per 1 g/kg BW: 90 est fluid needs as per 30 ml/kg BW: 2600 Recommended fiber > 12 g /day and gradually increase up to 25-28 g /day or as tolerated Nutrition topics discussed : Reviewed (R), Pt verbalized understanding (V) , not applicable (N/A) R, : Healthy Plate Method Concept: Reviewed: healthy dinner/snack options R, : Carbohydrates: food sources of carbohydrates, relationship of carbohydrates to blood glucose, fatty liver GI health. Recommended total amount of carbohydrates per meals and snack. Differences between simple carbohydrates and complex carbohydrates R, V, N/A: Lean protein foods including vegan , vegetarian sources of protein. Benefits of protein (including but not limited to healing, nutritional value , benefits in weight loss, glucose control R, V, N/A: Fats : Source of fats, benefits of fats. Difference between saturated and unsaturated fats. Saturated fats and its contribution to inflammation R, V, N/A: Fiber: food sources and role of fiber in the diet (including but not limited to its role as a prebiotic, benefits in constipation, role in IBS , role in glucose control and cholesterol level) R, V, N/A: Hydration: role of hydration and prevention of dehydration or over hydration. Foods and water content. R, V, N/A: Vitamins and Minerals in foods and supplements R, V, N/A: Interpreting food labels, including serving size, macronutrients, vitamins, minerals, allergens, ingredient list , % daily value Patient Instructions: follow healthy plate method at dinner choose fruit/peanut butter or fruit/cottage cheese or 1/2 sand as your dinner/snack Coding Level of Care Code Nutr Indiv Intake (86626) Diagnoses DM type 2 (diabetes mellitus, type 2) E11.9 Time Spent (min) 30
--- OUTSIDE RECORDS SUMMARY | 2025-05-29 10:55 | XMS_ITS | Clinical Summary ---
Author Organization [facility] Facility Address [address] [place] [id number] Care Team Providers Care Extension Work Director Name Role Phone Unavailable Primary Care Provider [...]
--- OUTSIDE RECORDS SUMMARY | 2025-05-29 10:55 | XMS_ITS | Clinical Summary ---
Author Organization [facility] Address [address] [place] [phone] Phone Care Team Providers Care Hardwood Floor Sander Name Role Phone Garland Vázquez MD Primary Care Provider [phone] Immunizations Name Administration Dates Next Due Pfizer [...] patient's age to complete this topic Insurance [facility] Care Teams Hardwood Floor Sander Relationship Specialty Start Date End Date Garland Vázquez MD [address] [place] [phone] PCP - General Internal Medicine 05/11/25
[2025-05-31 13:29] VITALS: BMI 32.4
== END 2025-05-29 10:19 | disposition home or self-care (01) ==
LOC: HO.ENCR 09:18
PROVIDERS: PCP Internal Medicine; Visit Provider Dietitian, Registered
DX: E11.9 Type 2 diabetes mellitus without complications (principal)

== ENCOUNTER 2025-05-29 10:13 | Outpatient (REF) | payer MEDICARE, SELFPAY ==
[2025-05-29 11:40] LABS: Total Protein Urine Random 53 mg/dL (<12)
[2025-05-29 12:48] LABS: Ferritin 21 ng/mL (10-250)
[2025-05-29 13:02] LABS: Anion Gap 9 (12-20)
[2025-05-29 13:07] LABS: Blood Urea Nitrogen 24 mg/dL (9-16); Calcium 8.8 mg/dL (8.4-10.2); Carbon Dioxide 30 mmol/L (22-29); Chloride 107 mmol/L (96-108); Estimated Glomerular Filt Rate 38; Iron 16 mcg/dL (30-160); Percent Iron Saturation 5 % (15-50); Potassium 4.0 mmol/L (3.3-5.1); Sodium 142 mmol/L (135-145); Total Iron Binding Capacity 296 mcg/dL (228-428); Unsaturated Iron Binding 280 ug/dL
== END 2025-05-29 10:14 | disposition home or self-care (01) ==
LOC: HO.10HDL 10:13
PROVIDERS: Visit Provider Internal Medicine Hypertension Specialist
DX: E11.65 Type 2 diabetes mellitus with hyperglycemia (principal); I12.9 Hypertensive chronic kidney disease with stage 1 through stage 4 chronic kidney disease, or unspecified chronic kidney disease; E11.22 Type 2 diabetes mellitus with diabetic chronic kidney disease; N18.30 Chronic kidney disease, stage 3 unspecified; Z87.891 Personal history of nicotine dependence
CPT/HCPCS: 36415; 80048; 81001; 82570; 82728; 83540; 84156; 85025; 97802

== ENCOUNTER 2025-06-16 13:34 | Outpatient (AMB) | payer MEDICARE, SELFPAY ==
[2025-06-16 13:37] VITALS: BP 148/52; PULSE 93; RESP 16; TEMP 36.8; O2SAT 95; BMI 33.0
--- NOTE | 2025-06-16 13:37 | MHC.OFFWIV ---
Intake Vital Signs 06/16/25 13:37 Height 5 ft 4 in Weight 192 lb BMI 33.0 BP 148/52 H Blood Pressure Location Lt brachial Position Sitting Respiration 16 Pulse 93 Pulse Source Pulse Oximeter Temp 98.3 F Temp Source Oral Pulse Oximetry (%) 95 Oxygen Delivery Method Room Air Intake Visit Reasons: EP, R wrist pain due to fall on Intake Note: Pt is here today c/o Rt wrist pain due to a fall on landed on hands Patient Tobacco Use Status: Former Tobacco user Allergies Latex, Natural Rubber Allergy (Severe, Verified 05/18/25 15:21) blisters Sulfa (Sulfonamide Antibiotics) (SULFA (SULFONAMIDE ANTIBIOTICS)) Allergy (Mild, Verified 05/18/25 15:21) ITCHING, rash nystatin Allergy (Unknown, Verified 05/18/25 15:21) rash isosorbide (From Imdur) Adverse Reaction (Unknown, Verified 05/18/25 15:21) HEADACHES, headache tizanidine Adverse Reaction (Unknown, Verified 05/18/25 15:21) weakness, Hellucination HPI EP, R wrist pain due to fall on HPI Details Patient had fall on outstretched hands on . Pain at right scaphoid and base of thumb with radiation into radial aspect of forearm Mild pain at left wrist with normal range of motion and minimal tenderness to palpation [facility] Medical History (Updated 06/16/25 @ 14:09 by Gilmar Ruiz MD) COPD (chronic obstructive pulmonary disease) GERD (gastroesophageal reflux disease) Diabetic neuropathy Claudication of both lower extremities 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 2 diabetes mellitus residential (current) use of insulin Vitamin D deficiency DM type 2 (diabetes mellitus, type 2) CAD (coronary artery disease) Non-ST elevation MT (NSTEMI) Patellofemoral arthritis of right knee Right knee pain residential current use of anticoagulant Abnormal stress test Hypertension Obstructive sleep apnea Asthma with COPD Anemia CKD stage 3 due to type 2 diabetes mellitus Tracheomalacia, acquired History of pulmonary embolism AG (acute kidney injury) Paroxysmal atrial fibrillation Pulmonary embolism Obesity Dyslipidemia Respiratory failure Surgical History History of carpal tunnel surgery History of cholecystectomy History of lobectomy of lung Status post tracheoplasty History of cardiac cath Family History Mother No problems noted. Father No problems noted. Brother Substance use disorder Brother Substance use disorder Social History Household Members: Family Household Members Other:: 2 Housing: House Do you presently have visiting nurse or other home services: No Alcohol intake: former Comment: weddings Patient Tobacco Use Status: Former Tobacco user Tobacco use type: Cigarette Cigarettes Per Day: 10 Years Smoked: 3 stopped 1992 e-Cigarette/Vaping Use: Never Used Second Hand Smoke Exposure: Yes Advance Directives Date on File: 06/29/23 service: No Current occupational status: retired Cognitive needs: No Hearing needs: No Vision needs: No Review of Systems Const Denies chills, Denies fatigue, Denies fever(s), Denies headache(s) and Denies weakness ENT Denies dizziness and Denies headache(s) Card Denies dyspnea Resp Denies cough, Denies dyspnea, Denies wheezing and Denies other ( shortness of breath) Musc Details: Pain at right base of thumb and scaphoid region as well as right proximal radius Denies numbness and Denies tingling Neuro Details: Normal sensation at hand and fingertips. Denies dizziness, Denies headache(s), Denies numbness, Denies tingling, Denies paresthesias and Denies weakness Psych Denies anxiety and Denies depression Endo Denies fatigue Aller/Immun Denies wheezing Physical Exam Vital Signs: Last Vital Signs Temp 98.3 F 06/16/25 13:37 Pulse 93 06/16/25 13:37 Resp 16 06/16/25 13:37 BP 148/52 H 06/16/25 13:37 Pulse Ox 95 06/16/25 13:37 Oxygen Delivery Method Room Air 06/16/25 13:37 BMI result Body Mass Index 33.0 Const General: no acute distress and well developed Nutritional Appearance: well nourished Orientation/consciousness: patient oriented x3 HEENT Head: Yes normocephalic and Yes atraumatic Eyes General: appearance normal, both eyes and all related structures Pupils: Equal, round and reactive pupils present EOM: EOMs intact bilaterally Resp Effort & Inspection: normal respiratory effort Neuro Other: Normal sensation to light touch at distal fingertips of right and left hand General: patient oriented x3 and gait normal Cranial nerves: Yes Equal, round and reactive pupils present Extrem Other: Pain at base of right thumb and scaphoid region as well as proximal forearm after fall on outstretched hand. Tenderness to palpation over scaphoid and pain with range of motion of thumb and wrist Left wrist discomfort is mild. Normal range of motion Psych Affect: normal affect Assessment & Plan Assessment & Plan (1) Right wrist pain: Code(s): M25.531 - Pain in right wrist Plan: Pain at base of right thumb and scaphoid region as well as proximal forearm after fall on outstretched hand. Tenderness to palpation over scaphoid and pain with range of motion of thumb and wrist Concern for scaphoid fracture No obvious fracture seen on wrist x-rays however significant pain with some decreased range of motion - placed patient in spike half cast/splint She can use Tylenol Awaiting final reading of x-ray. If there is no fracture she can remove the splint and use ice/heat and Tylenol. If x-ray is positive should be referred to ortho (2) Wrist pain, left: Code(s): M25.532 - Pain in left wrist Plan: Doubt fracture Likely mild sprain. Can use ice heat and Tylenol Should resolve spontaneously Coding Level of Care Code Est Pt Level 3 (67170) Diagnoses Right wrist pain M25.531 Wrist pain, left M25.532
--- OUTSIDE RECORDS SUMMARY | 2025-06-16 13:37 | XMS_ITS | Clinical Summary ---
Author Organization [facility] Address [address] [place] [phone] Phone Care Team Providers Care Button Spindler Name Role Phone Garland Vázquez MD Primary Care Provider Immunizations Immunization Administration Dates Next Due Pfizer SARS-CoV-2 COVID-19, [...] patient's age to complete this topic Insurance [facility] Care Teams Button Spindler Relationship Specialty Start Date End Date Garland Vázquez MD [address] [place] [phone] PCP - General Internal Medicine 05/11/25
--- OUTSIDE RECORDS SUMMARY | 2025-06-16 13:37 | XMS_ITS | Clinical Summary ---
Author Organization [facility] Facility Address [address] [place] [phone] Care Team Providers Care Metal Window Frame Maker Name Role Phone Unavailable Primary Care Provider [...]
== END 2025-06-16 14:36 | disposition home or self-care (01) ==
PROVIDERS: PCP Internal Medicine; Visit Provider Family Medicine
DX: M25.531 Pain in right wrist (principal); M25.532 Pain in left wrist

== ENCOUNTER 2025-06-16 13:34 | Outpatient (REF) | payer MEDICARE, SELFPAY ==
--- NOTE | ~2025-06-16 | XR_ITS ---
CLINICAL HISTORY: M25.532 - Pain in left wrist 3 view left wrist Comparison: None provided Findings: Chronic appearing ununited ulnar styloid fracture. Joint space narrowing and periarticular osteophyte formation at the radiocarpal, scaphotrapezial, and 1st carpometacarpal joints is present, indicating osteoarthritis. No radiopaque foreign body. IMPRESSION: 1. No acute findings This document has been electronically signed by: Donna Hillman MD on 06/16/2025 15:07:31
--- NOTE | ~2025-06-16 | XR_ITS ---
CLINICAL HISTORY: M25.531 - Pain in right wrist 3 view right wrist Comparison: None provided Findings: No fractures or dislocations. Joint space narrowing and periarticular osteophyte formation at the radiocarpal, scaphotrapezial, and 1st carpometacarpal joints is present, indicating osteoarthritis. No radiopaque foreign body. IMPRESSION: 1. No acute findings This document has been electronically signed by: Donna Hillman MD on 06/16/2025 15:08:57
== END 2025-06-16 13:35 | disposition home or self-care (01) ==
LOC: HO.HMGCX 13:34
PROVIDERS: PCP Internal Medicine; Visit Provider Family Medicine
DX: M25.531 Pain in right wrist (principal); M25.532 Pain in left wrist
CPT/HCPCS: 73110; 99212

== ENCOUNTER → 2025-06-16 14:10 | Outpatient (BNV) | payer MEDICARE, SELFPAY | PROVIDERS: PCP Internal Medicine; Visit Provider Radiology Diagnostic Radiology | DX: M25.531 Pain in right wrist (principal); M25.532 Pain in left wrist | CPT/HCPCS: 73110 ==

== ENCOUNTER 2025-07-04 15:24 | Outpatient (REF) | payer MEDICARE, SELFPAY ==
--- NOTE | ~2025-07-04 | US_ITS ---
CLINICAL HISTORY: essential HTN US renal duplex ultrasound Comparison: CT/REG/MO/SR - CT ABDOMEN PELVIS WO IV CON - 12/01/23 15:30 EDT Technique: Real time duplex ultrasound imaging was performed by the locomotive pipe fitter. Multiple applications sales representative static images were saved for review. Findings: Aorta: Normal waveform, 110 cm/s. Right kidney: Atrophic with normal echogenicity, 6.2 cm length. Atrophy was also present on the prior study. Upper pole cyst measuring 0.8 x 0.6 x 0.7 cm. Twinkle artifact in the lower pole could be secondary to calcified atherosclerotic disease or a stone; calcified atherosclerotic disease in the renal pelvis was also seen on the prior study. Main renal artery peak systolic velocities (PSV), normal is <180cm/s: Proximal: 75.2 cm/s Mid: 39.5 cm/s Distal: 31.3 cm/s Max Renal PSV/Aorta PSV, normal is <3.5: Unable to calculate No pulsus parvus et tardus waveforms or turbulent flow. Max segmental resistive index: 0.71 Patent renal vein. Left kidney: Normal size and echotexture, 12.7 cm length. Main renal artery peak systolic velocities (PSV), normal is <180cm/s: Proximal: 275.4 cm/s Mid: 181.9 cm/s Distal: 97.1 cm/s Max Renal PSV/Aorta PSV, normal is <3.5: Unable to calculate No pulsus parvus et tardus waveforms or turbulent flow. Max segmental resistive index: Stenosis, 0.84 Patent renal vein. Impression: Evidence of left renal artery stenosis. Atrophy of the right kidney. This document has been electronically signed by: Maryann Jansen MD on 07/04/2025 18:15:45
--- NOTE | ~2025-07-04 | US_ITS ---
EXAMINATION: Noninvasive assessment of the bilateral lower extremities with ARTERIAL DUPLEX, ANKLE BRACHIAL INDICES (ABIs), and PULSE VOLUME RECORDINGS (PVRs). CLINICAL INFORMATION: I 73.9. TECHNIQUE: Ankle pulse volume recordings, ankle pressure measurements and ankle brachial indices were obtained of the lower extremity arterial system bilaterally. The study was performed only at rest. COMPARISON: None FINDINGS: BRACHIAL PRESSURES: Right: 165 Left: 164 ANKLE PRESSURES: Right: PT 96, DP 92 Left: PT 104, DP 98 ANKLE-BRACHIAL INDEX: Right: 0.58 Left: 0.63 ANKLE PVR WAVEFORMS: Right: Abnormal Left: Abnormal US/US SUSAN complete IMPRESSION: Right le.58 Left le.63 SUSAN Reference: - >1.4 = calcified vessels - 0.9 - 1.4 = normal - no significant arterial disease - 0.7 - 0.89 = mild peripheral arterial disease - 0.51 - 0.69 = moderate peripheral arterial disease - 0.50 = severe peripheral arterial disease - < .30 = critical arterial disease Electronically signed by: Jeffery Moody MD 07/04/2025 08:08 PM EDT
--- OUTSIDE RECORDS SUMMARY | 2025-07-04 19:45 | XMS_ITS | Clinical Summary ---
Author Organization [facility] Address [address] [place] [id number] Phone Care Team Providers Care Computer Systems Security Administrator Name Role Phone Garland Vázquez MD Primary Care Provider [phone] Immunizations Immunization Administration Dates Next Due Pfizer [...] patient's age to complete this topic Insurance [facility] Care Teams Computer Systems Security Administrator Relationship Specialty Start Date End Date Garland Vázquez MD [address] [place] [address] PCP - General Internal Medicine 05/11/25
--- OUTSIDE RECORDS SUMMARY | 2025-07-04 19:45 | XMS_ITS | Data Portability ---
Author Organization [place] [facility] Address [address] [place] [id number] Care Team Providers Care Grinder [employer] Name Role Phone EMILY HINOJOSA Primary Care Provider [phone] Assessment Encounter Date Assessment Date Assessment LastModified by Organization Details LastModified Time 12/11/2020 12/11/2020 DDX; cervical fracture, subdural hematoma, delayed hematoma, SEA, cerebral artery dissection. Pt appears uncomfortable during exam. She has no focal neurological deficit but there is increasing pain out of proportion to physical exam findings. CT of neck and head reviewed from her ED visit post-fall and unremarkable (images unable to be reviewed ONLY reading). Further, INR at discharge was 1.7, The pain starting after discharge home and concern for various causes for pain as noted above. This was shared with patient. She feels the pain is worsening which prompted encouragement to seek the ED for further imaging studies. Pt at this time does not want to proceed with this but verbalizes understanding of risk of harm and worsening condition. Labs were drawn on scene to send to [facility]- INR, CBC with diff, CR, lytes,BUN glucose, ESR and CRP. Pt's daughter was not present during visit to discuss going to the ED. Pt was ambulatory at completion of visit. Labs were delivered to [facility] at the main campus via ED tube system. Time On Scene with Patient: 01:12:29 [id number] Not available 12/11/2020 12:05:02 Plan of Treatment Reminders Order Date Submit Date Provider Last Modified By Organization Details Last Modified Time Details Appointments None recorded. Lab PT/INR 2020 0407 021 KODI [facility] (Centralized Electronic Ordering - All Locations), Patient Can Go To The Location Of Their Choice, [id number] 12:39:18 CBC w/ auto diff 2020 KODI [facility] (Centralized Electronic Ordering - All Locations), Patient Can Go To The Location Of Their Choice, 12:32:11 erythrocy te sedimenta tion rate by nory tobar method - [facility] [place] [facility] vidhya [facility] (Centralized Electronic Ordering - All Locations), Patient Can Go To The Location Of Their Choice, 12:54:41 C-reactiv e protein, quantitat desmond, serum or plasma 2020 KODI [facility] (Centralized Electronic Ordering - All Locations), Patient Can Go To The Location Of Their Choice, 13:00:18 bun (blood urea nitrogen) , serum or plasma 2020 KODI [facility] (Centralized Electronic Ordering - All Locations), Patient Can Go To The Location Of Their Choice, 13:00:09 creatinin e, serum or plasma 2020 KODI [facility] (Centralized Electronic Ordering - All Locations), Patient Can Go To The Location Of Their Choice, 13:00:14 electroly te panel, serum 2020 KODI [facility] (Centralized Electronic Ordering - All Locations), Patient Can Go To The Location Of Their Choice, 13:00:25 glucose, QN [mass/vol ume], serum or plasma 2020 KODI [facility] (Centralized Electronic Ordering - All Locations), Patient Can Go To The Location Of Their Choice, 13:00:22 Referral None recorded. Procedures None recorded. Surgeries None recorded. Imaging None recorded. Medication Orders None recorded. Patient TargetsNo targets recorded. Patient InstructionsNo instructions recorded. Reason for Referral None Reported. Results Created Date Observation Date Name Description Value Unit Range Abnormal Flag Note LastModifiedBy Organization Detail LastModifiedTime 12/12/1912/11/2020 CBC w/ auto diff WBC 12.7 K/mm3 (4.0-1 1.0) high Not Available [facility] (Centralized Electronic Ordering - All Locations) Patient Can Go To The Location Of Their Choice, 12/11/2020 12:32:11 12/12/1912/11/2020 CBC w/ auto diff RBC 4.76 M/mm3 (4.20- 5.40) Not Available [facility] (Centralized Electronic Ordering - All Locations) Patient Can Go To The Location Of Their Choice, 12/11/2020 12:32:11 12/12/1912/11/2020 CBC w/ auto diff HGB 12.3 gm/dL (11.7- 15.5) Not Available [facility] (Centralized Electronic Ordering - All Locations) Patient Can Go To The Location Of Their Choice, 12/11/2020 12:32:11 12/12/1912/11/2020 CBC w/ auto diff HCT 39.6 % (35.7- 45.8) Not Available [facility] (Centralized Electronic Ordering - All Locations) Patient Can Go To The Location Of Their Choice, 12/11/2020 12:32:11 12/12/1912/11/2020 CBC w/ auto diff MCV 83.2 fL (80.0- 100.0) Not Available [facility] (Centralized Electronic Ordering - All Locations) Patient Can Go To The Location Of Their Choice, 12/11/2020 12:32:11 12/12/1912/11/2020 CBC w/ auto diff MCH 25.8 pg (27.0- 34.0) low Not Available [facility] (Centralized Electronic Ordering - All Locations) Patient Can Go To The Location Of Their Choice, 12/11/2020 12:32:11 12/12/1912/11/2020 CBC w/ auto diff MCHC 31.1 g/dL (33.0- 37.0) low Not Available [facility] (Centralized Electronic Ordering - All Locations) Patient Can Go To The Location Of Their Choice, 12/11/2020 12:32:11 12/12/1912/11/2020 CBC w/ auto diff plt 280 K/mm3 (150-4 60) Not Available [facility] (Centralized Electronic Ordering - All Locations) Patient Can Go To The Location Of Their Choice, 12/11/2020 12:32:11 12/12/1912/11/2020 CBC w/ auto diff RDW-SD 48.7 fL (<47.0 ) high Not Available [facility] (Centralized Electronic Ordering - All Locations) Patient Can Go To The Location Of Their Choice, 12/11/2020 12:32:12/12/1912/11/2020 CBC w/ auto diff MPV 10.4 fL (9.4-1 2.4) Not Available [facility] (Centralized Electronic Ordering - All Locations) Patient Can Go To The Location Of Their Choice, 12/11/2020 12:32:11 12/12/1912/11/2020 CBC w/ auto diff automated NRBC 0.0 #/100 _WBC' s Not Available [facility] (Centralized Electronic Ordering - All Locations) Patient Can Go To The Location Of Their Choice, 12/11/2020 12:32:11 12/12/1912/11/2020 CBC w/ auto diff abs. NRBC 0.0 K/mm3 Not Available [facility] (Centralized Electronic Ordering - All Locations) Patient Can Go To The Location Of Their Choice, 12/11/2020 12:32:11 12/12/1912/11/2020 CBC w/ auto diff neut # 9.0 K/mm3 (1.3-7 .0) high Not Available [facility] (Centralized Electronic Ordering - All Locations) Patient Can Go To The Location Of Their Choice, 12/11/2020 12:32:11 12/12/1912/11/2020 CBC w/ auto diff lymph # 2.2 K/mm3 (0.8-3 .1) Not Available [facility] (Centralized Electronic Ordering - All Locations) Patient Can Go To The Location Of Their Choice, 12/11/2020 12:32:11 12/12/1912/11/2020 CBC w/ auto diff mono# 1.0 K/mm3 (0.4-0 .9) high Not Available [facility] (Centralized Electronic Ordering - All Locations) Patient Can Go To The Location Of Their Choice, 12/11/2020 12:32:11 12/12/1912/11/2020 CBC w/ auto diff eo # 0.4 K/mm3 (0.0-0 .4) Not Available [facility] (Centralized Electronic Ordering - All Locations) Patient Can Go To The Location Of Their Choice, 12/11/2020 12:32:11 12/12/1912/11/2020 CBC w/ auto diff baso # 0.1 K/mm3 (0.0-0 .1) Not Available [facility] (Centralized Electronic Ordering - All Locations) Patient Can Go To The Location Of Their Choice, 12/11/2020 12:32:11 12/12/1912/11/2020 CBC w/ auto diff abs. imm gran 0.1 K/mm3 Not Available [facility] ([facility] Ordering - All Locations) Patient Can Go To The Location Of Their Choice, 12/11/2020 12:32:11 12/12/1912/11/2020 CBC w/ auto diff neut 71.1 % (44-76 ) Not Available [facility] (Centralized Electronic Ordering - All Locations) Patient Can Go To The Location Of Their Choice, 12/11/2020 12:32:11 12/12/1912/11/2020 CBC w/ auto diff lymph 17.5 % (15-43 ) Not Available [facility] (Centralized Electronic Ordering - All Locations) Patient Can Go To The Location Of Their Choice, 12/11/2020 12:32:11 12/12/1912/11/2020 CBC w/ auto diff monocyte 7.5 % (4.5-1 0.5) Not Available [facility] (Centralized Electronic Ordering - All Locations) Patient Can Go To The Location Of Their Choice, 12/11/2020 12:32:11 12/12/1912/11/2020 CBC w/ auto diff eo 2.8 % (0-6) Not Available [facility] (Centralized Electronic Ordering - All Locations) Patient Can Go To The Location Of Their Choice, 12/11/2020 12:32:11 12/12/1912/11/2020 CBC w/ auto diff baso 0.4 % (0-2) Not Available [facility] (Centralized Electronic Ordering - All Locations) Patient Can Go To The Location Of Their Choice, 12/11/2020 12:32:11 12/12/1912/11/2020 CBC w/ auto diff imm gran 0.7 % Not Available [facility] (Centralized Electronic Ordering - All Locations) Patient Can Go To The Location Of Their Choice, 12/11/2020 12:32:11 12/12/1912/11/2020 PT/IN R protime 19.5 sec (9.2-1 1.4) high Not Available [facility] (Centralized Electronic Ordering - All Locations) Patient Can Go To The Location Of Their Choice, 12/11/2020 12:39:18 12/12/1912/11/2020 PT/IN R internatnl normalized ratio 2.1 (0.9-1 .1) high SUGGE STED VALUE OF 2.0-3 .0 FOR PROPH YLAXI S OF VENOU S THROM BOSIS IN HIGH RISK OR SURGI MONCHO PATIE NTS, TREAT MENT OF VENOU S THROM BOSIS , AND PREVE NTION OF EMBOL ISM. SUGGE STED VALUE S OF 2.5-3 .5 FOR PREVE NTION OF RECUR RENT EMBOL ISM OR PATIE NTS WITH MECHA NICAL PROST HETIC HEART VALVE S. Not Available [facility] (Centralized Electronic Ordering - All Locations) Patient Can Go To The Location Of Their Choice, 12/11/2020 12:39:18 12/12/1912/11/2020 bun (bloo d urea nitro gen), serum or plasm a BUN 15 mg/dL (8-23) Not Available [facility] (Centralized Electronic Ordering - All Locations) Patient Can Go To The Location Of Their Choice, 12/11/2020 13:00:09 12/12/1912/11/2020 creat inine , serum or plasm a creatinine 0.9 mg/dL (0.5-1 .0) Not Available [facility] (Centralized Electronic Ordering - All Locations) Patient Can Go To The Location Of Their Choice, 12/11/2020 13:00:14 12/12/1912/11/2020 creat inine , serum or plasm a est GFR non 68 mL/mi n/1.7 3_M2 Creat inine based estim ated glome rular filtr ation rate (eGFR ) is calcu lated using the Chron ic Kidne y Disea se Epide miolo gy Colla borat ion (CKD- EPI). The CKD-E PI creat inine equat ion has not been valid ated in child noemy (<18 years ), pregn ant women or in some racia l or ethni c subgr oups other than Cauca sians and Afric an Ameri cans. Not Available [facility] (Centralized Electronic Ordering - All Locations) Patient Can Go To The Location Of Their Choice, 12/11/2020 13:00:14 12/12/1912/11/2020 creat inine , serum or plasm a est GFR 79 mL/mi n/1.7 3_M2 Creat inine based estim ated glome rular filtr ation rate (eGFR ) is calcu lated using the Chron ic Kidne y Disea se Epide miolo gy Colla borat ion (CKD- EPI). The CKD-E PI creat inine equat ion has not been valid ated in child noemy (<18 years ), pregn ant women or in some racia l or ethni c subgr oups other than Cauca sians and Afric an Ameri cans. Not Available [facility] (Centralized Electronic Ordering - All Locations) Patient Can Go To The Location Of Their Choice, 12/11/2020 13:00:14 12/12/1912/11/2020 C-ashkan ctive prote in, quant itati ve, serum or plasm a C-reactive protein 8.0 mg/dL (0-0.5 ) high Not Available [facility] (Centralized Electronic Ordering - All Locations) Patient Can Go To The Location Of Their Choice, 12/11/2020 13:00:18 12/12/1912/11/2020 gluco se, QN [mass /volu me], serum or plasm a glucose 243 mg/dL (70-99 ) high Not Available [facility] (Centralized Electronic Ordering - All Locations) Patient Can Go To The Location Of Their Choice, [id number] 12/11/2020 13:00:22 12/12/1912/11/2020 elect rolyt e panel , serum sodium 140 mmol/ L (133-1 45) Not Available [facility] (Centralized Electronic Ordering - All Locations) Patient Can Go To The Location Of Their Choice, [id number] 12/11/2020 13:00:25 12/12/1912/11/2020 elect rolyt e panel , serum potassium 4.1 mmol/ L (3.6-5 .2) Not Available [facility] (Centralized Electronic Ordering - All Locations) Patient Can Go To The Location Of Their Choice, [id number] 12/11/2020 13:00:25 12/12/1912/11/2020 elect rolyt e panel , serum chloride 100 mmol/ L (98-10 7) Not Available [facility] (Centralized Electronic Ordering - All Locations) Patient Can Go To The Location Of Their Choice, [id number] 12/11/2020 13:00:25 12/12/1912/11/2020 elect rolyt e panel , serum bicarbonate 31 mmol/ L (22-29 ) high Not Available [facility] (Centralized Electronic Ordering - All Locations) Patient Can Go To The Location Of Their Choice, [id number] 12/11/2020 13:00:25 12/12/1912/11/2020 elect rolyt e panel , serum anion gap 9 (4-17) Not Available [facility] (Centralized Electronic Ordering - All Locations) Patient Can Go To The Location Of Their Choice, [facility] 12/11/2020 13:00:25 Result Notes None recorded. Procedures Surgical History Date Name Laterality Status Provider Name and Address Organization Details Recorded Time Cholecystectomy completed FELISA SMITH NP [address] [place], [address], [place] [facility] 12/11/2020 10:57:19 Imaging Results None recorded. Procedure Notes None recorded. Medical Equipment None Reported. Allergies Allergen ID Allergen Name Allergen Category Reaction Reaction Severity Criticality Documentation Date Start Date Code Code System Note Provider Name and Address Organization Details Recorded Time 113924 nystatin medicatio n rash Not available Not available 12/11/2020 7597 RxNorm FELISA LACKEY NP [address] [place], [address], [place] [facility] 10:54:28 [id number] Substance with sulfonami de structure and antibacte rial mechanism of action (substanc e) medicatio n Not available Not available Not available 12/11/2020 91141 8003 SNOMED FELISA LACKEY, MESERET [address], [facility], [address], [place] [facility] 10:54:42 Medications Name Sig Start Date Stop Date Status Note LastModified by Organization Details LastModified Time atorvastati n 40 mg tablet TAKE ONE TABLET AT BEDTIME active Not Available Not Available No t Available buspirone 5 mg tablet TAKE ONE TABLET DAILY active Not Available Not Available No t Available citalopram 40 mg tablet TAKE ONE TABLET DAILY active Not Available Not Available No t Available azithromyci n 250 mg tablet active Not Available Not Available Not Available valacyclovi r 1 gram tablet TK 1 T PO Q 8 HOURS FOR 7 DAYS active Not Available Not Available No t Available hydrocodone 5 mg-acetamin ophen 325 mg tablet TK 1 T PO Q 6 HOURS PRF ACUTE PAIN 12/11 completed Not Available Not Available Not Available diltiazem CD 240 mg capsule,ext ended release 24 hr TAKE ONE CAPSULE DAILY active Not Available Not Available No t Available prednisone 20 mg tablet TAKE 2 TABLETS BY MOUTH DAILY FOR 2 DAYS 12/11 completed Not Available Not Available Not Available lidocaine HCl 2 % mucosal jelly APPLY TOPICALLY TO AFFECTED AREA THREE TIMES A DAY NEEDED FOR MODERATE PAIN FOR 7 DAYS active Not Available Not Available No t Available ciprofloxac in 500 mg tablet TK 1 T PO Q 12 H FOR 3 DAYS 12/11 completed Not Available Not Available Not Available peg-electro lyte solution 420 gram oral solution active Not Available Not Available Not Available guaifenesin 100 mg/5 mL oral liquid TAKE 5 ML BY MOUTH EVERY 4 HOURS FOR 5 DAYS NEEDED FOR COUGH active Not Available Not Available No t Available amoxicillin 875 mg tablet TAKE ONE TABLET TWICE DAILY UNTIL FINISHED 12/11 completed Not Available Not Available Not Available citalopram 20 mg tablet TAKE TWO TABLETS BY MOUTH DAILY (40mg total) active Not Available Not Available No t Available lorazepam 0.5 mg tablet TAKE ONE TABLET BY MOUTH EVERY DAY NEEDED 12/11 completed Not Available Not Available Not Available amitriptyli ne 10 mg tablet TAKE ONE TABLET AT BEDTIME active Not Available Not Available No t Available doxycycline monohydrate 100 mg capsule TAKE ONE CAPSULE BY MOUTH TWICE DAILY FOR FOURTEEN DAYS 12/11 completed Not Available Not Available Not Available cephalexin 500 mg capsule TK 1 C PO Q 12 HOURS 12/11 completed Not Available Not Available Not Available pantoprazol e 40 mg tablet,lindsey yed release TAKE ONE TABLET TWICE DAILY active Not Available Not Available No t Available warfarin 2 mg tablet TAKE TWO TABLETS DAILY active Not Available Not Available No t Available warfarin 5 mg tablet TAKE ONE TABLET BY MOUTH EVERY DAY active Not Available Not Available No t Available albuterol sulfate HFA 90 mcg/actuati on aerosol inhaler active Not Available Not Available Not Available doxycycline hyclate 100 mg tablet TK 1 T PO BID 12/11 completed Not Available Not Available Not Available dicyclomine 10 mg capsule TAKE 1 CAPSULE BY MOUTH FOUR TIMES DAILY active Not Available Not Available No t Available budesonide- formoterol HFA 160 mcg-4.5 mcg/actuati on aerosol inhaler INHALE 2 PUFFS BY MOUTH TWICE DAILY active Not Available Not Available No t Available Lantus Solostar U-100 Insulin 100 unit/mL (3 mL) subcutaneou s pen INJECT 40 UNITS SUBCUTANE OUSLY EVERY DAY active Not Available Not Available No t Available cholecalcif alexsandra (vitamin D3) 50 mcg (2,000 unit) capsule TAKE ONE CAPSULE DAILY active Not Available Not Available No t Available Humalog KwikPen U-200 Insulin 200 unit/mL (3 mL) subcutaneou s INJECT 24 units SUBCUTANE OUSLY THREE TIMES DAILY active Not Available Not Available No t Available Pentips Pen Needle 32 gauge x 5/32 USE FIVE DAILY active Not Available Not Available No t Available Vitals Date Recorded Body temperature Oxygen saturation Oxygen saturation in Arterial blood by Pulse oximetry Heart rate Respiratory rate Systolic And Diastolic Provider Name and Address Organization Details Last Updated DateTime 1 98.6 [degF] 98 % 98 % 77 /min 20 /min 158/70 mm[Hg] Not Available [facility] 10:58:40 Social History None recorded. Functional Status None recorded. Mental Status None recorded. Family History Nothing Reported. Medical History Condition Response Diabetes Y Coronary Artery Disease N High Cholesterol Y Pulmonary Embolism Y Cancer Y Hypertension Y Stroke N Asthma Y COPD Y Depression Y Kidney Disease N Gynecological HistoryNo gynecological history recorded. Obstetrics History GPAL:G 0 P 0 0 0 0 Past Encounters Encounter ID Performer Location Encounter Start Date Encounter Closed Date Diagnosis/Indication Diagnosis SNOMED-CT Code Diagnosis ICD10 Code Diagnosis IMO Codes Diagnosis Note [id number] FELISA LACKEY NP [facility] [address] [place] [address] 12/11/2020 10:52:43 12/12/2020 08:29:49 Headache 55964928 R51.9 Health Concerns Section Related Observation LastModified by Organization Detai ls LastModified Time None Recorded Concern Status LastModified by Organization Details LastModified Time None Recorded Advance Directives Directive None Recorded Payers Insurance Date Sequence Insurance Name Policy Number Policy Starr Covered Member ID Starr Member ID Guarantor Name 12/12/2020 1 [id number] 12/11/2020 1 *SELF PAY* Saima Lauro [id number] Saima Lauro 12/12/2020 2 [place]MEDICARE [place]ACEMENT HMO) [id number] [facility]uro [id number] [facility] 12/12/2020 2 [place]MED[place]ARE [place]AC[place] HMO) [id number] Saima Lauro [id number] [facility] Lauro 12/12/2020 1 [place]MED[place]AC[place] HMO) [id number] Saima Lauro [id number] Saima Lauro 12/12/2020 2 [place] [facility] Lauro [id number] [facility] Notes Date Note Type Note Provider Name and Address Organization Details Recorded Time 12/11/2020 text/html 70 year-old female with history of multiple PE, on coumadin, DM, lung cancer, HTN, osteoarthritis, who calls to her home for evaluation of headache, neck pain. About 2 weeks ago, she rolled out of bed and hit the right side of her head on a bureau. She felt pain to her head and neck. They went to the [facility]- negative CT head, neck but developed COPD exacerbation that kept her in hospital until 12/04/2020. Since being home she has begun having posterior neck pain, midline as well as headache. IT seems to be getting worse and spreading from her neck into her upper back. She is also having pain to bilateral jaws - it feels like when I eat something very sour . She denies any arm weakness, leg weakness. She denies any shortness of breath, trouble swallowing, loss of appetite She has been taking tylenol without change in pain. Her last INR at [facility] 12/04 - 1.7. FELISA LACKEY, MESERET [address], [place], [address], [place] [facility] 12/11/2020 12:05:25 OBGyn Episode No OBEpisode recorded.
--- OUTSIDE RECORDS SUMMARY | 2025-07-04 19:45 | XMS_ITS | Clinical Summary ---
Author Organization [facility] Facility Address [address] [place] [address] Care Team Providers Care Web Administrator Name Role Phone Unavailable Primary Care Provider [...]
== END 2025-07-04 15:25 | disposition home or self-care (01) ==
LOC: HO.US 15:24
PROVIDERS: PCP Internal Medicine; Visit Provider Internal Medicine Hypertension Specialist
DX: I10 Essential (primary) hypertension (principal); N26.1 Atrophy of kidney (terminal); I73.9 Peripheral vascular disease, unspecified
CPT/HCPCS: 93923; 93975

== ENCOUNTER → 2025-07-04 15:27 | Outpatient (BNV) | payer MEDICARE, SELFPAY | PROVIDERS: PCP Internal Medicine; Visit Provider Radiology Diagnostic Radiology | DX: I70.1 Atherosclerosis of renal artery (principal); N26.1 Atrophy of kidney (terminal); I73.9 Peripheral vascular disease, unspecified | CPT/HCPCS: 93923; 93975 ==

== ENCOUNTER 2025-07-09 13:14 | Outpatient (AMB) | payer MEDICARE, SELFPAY ==
[2025-07-09 13:17] VITALS: BP 140/42; PULSE 96; O2SAT 97; BMI 32.6
--- NOTE | 2025-07-09 13:17 | HO.NEPHOV ---
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 Accompanied by: Daughter Allergies Latex, Natural Rubber Allergy (Severe, Verified 07/09/25 13:19) blisters Sulfa (Sulfonamide Antibiotics) (SULFA (SULFONAMIDE ANTIBIOTICS)) Allergy (Mild, Verified 07/09/25 13:19) ITCHING, rash nystatin Allergy (Unknown, Verified 07/09/25 13:19) rash isosorbide (From Imdur) Adverse Reaction (Unknown, Verified 07/09/25 13:19) HEADACHES, headache tizanidine Adverse Reaction (Unknown, Verified 07/09/25 13:19) weakness, Hellucination Medication List - Last Reconciled 07/09/25 by Corby Gong MD acetaminophen 650 mg (2 x 325 mg) PO Q6H PRN albuterol sulfate 90 mcg/actuation 2 puffs inhalation QID PRN apixaban (Eliquis) 5 mg PO BID atorvastatin 80 mg PO BEDTIME blood sugar diagnostic (OneTouch Verio test strips) Test blood sugar 3 times per day blood-glucose meter (OneTouch Verio Flex Meter) As directed blood-glucose sensor (FreeStyle Kelly 3 Plus Sensor device) Apply 1 new sensor every 15 days as directed to monitor blood glucose continuously. budesonide-formoterol 160-4.5 mcg/actuation (Symbicort) 2 puffs inhalation BID PRN buspirone 10 mg PO BID carvedilol 6.25 mg PO BID 90 days cholecalciferol (vitamin D3) 25 mcg PO DAILY citalopram 30 mg (1.5 x 20 mg) PO DAILY compr.stocking,thigh,reg,large Thigh High compression stockings 10-20mmHg diltiazem HCl CD (Cartia XT) 240 mg PO DAILY empagliflozin (Jardiance) 25 mg PO DAILY famotidine 20 mg PO Q OTHER DAY furosemide 20 mg PO DAILY glucose (Dex4 Glucose Quick Dissolve) 16 grams (4 x 4 gram) PO Q15M PRN insulin glargine (Lantus Solostar U-100 Insulin) 25 units (0.25 mL) subcut BEDTIME insulin lispro (Humalog KwikPen (U-100) Insulin) 1 sliding scale dose subcut USEASDIRECTD ipratropium-albuterol 0.5 mg-3 mg(2.5 mg base)/3 mL 3 mL inhalation Q6H PRN 30 days lancets (OneTouch Delica Plus Lancet) Test blood sugar 3 times per day meclizine 12.5 mg PO TID PRN montelukast 10 mg PO BEDTIME nitroglycerin 0.3 mg sublingual Q5M PRN pantoprazole 40 mg PO .qd semaglutide (Ozempic) 2 mg (0.75 mL) subcut QWEEK sennosides-docusate sodium 8.6-50 mg (Stimulant Laxative Plus) 2 tabs PO BID PRN sumatriptan succinate take 1 tab at onset of headache; if no relief may repeat 1 tab after at least 2 hrs; max = 4 tabs/24 hr walker As directed HPI Comments Details: - The patient is a 74-year-old female presenting with chronic kidney disease. - Chronic Kidney Disease: Fluctuating kidney function for 3-4 years, creatinine 1.0-1.6 mg/dL. - Nonproliferative Diabetic Retinopathy: Related to long-standing diabetes. - Proteinuria: Minimal proteinuria, urine protein-creatinine ratio 348 mg/g. - COPD: History of COPD and congestive heart failure, previous lung collapse. - Diabetes Mellitus: 10-year history, HbA1c around 6.0. - Hypertension: Fluctuating blood pressure, medication adjustments needed. She has had episodes were systolic blood pressure has been around 190 out no new mm Hg. She has also had episodes Of very low blood pressure. History of coronary artery disease status post stent placement. - Congestive Heart Failure: History of heart failure, requiring hospitalization in the past. - Atrial Fibrillation: Managed with carvedilol and diltiazem. Anemia. Hemoglobin has trended down from 12.4 down from 9.8. MCV is rather low. Ferritin was low at 19. She denies any blood loss In December of 2023 cat scan revealed atrophic right kidney measuring 7.1 cm. 07/09/25 The patient is a 74-year-old female presenting with chronic kidney disease management. Her kidney function has shown slight improvement, although it remains below normal levels, currently functioning at 36% to 38%. A recent ultrasound indicated a small right kidney and suspected narrowing of the left renal artery, which could contribute to elevated blood pressure and decreased kidney function. The patient also has a history of iron deficiency anemia, with recent blood work showing a hemoglobin level of 10.0 g/dL, slightly improved from 9.9 g/dL previously. She has not been taking iron supplements due to concerns about constipation, which is exacerbated by her current medication regimen, including Ozempic. There is a suspicion of gastrointestinal bleeding as a potential cause of her anemia, but a scheduled colonoscopy and endoscopy were postponed due to cardiac concerns. The patient's blood pressure has been fluctuating, with a recent reading of 140/42 mmHg. She is currently on carvedilol, diltiazem, and furosemide for hypertension management. The potential renal artery stenosis could be contributing to her hypertension, and further intervention may be considered if blood pressure becomes difficult to control. The patient experiences constipation, which is managed with dietary adjustments such as consuming prunes. She reports having a bowel movement once a day, which is considered adequate. COUNT INCLUDES THE [facility] Medical History (Updated 06/16/25 @ 14:09 by Gilmar Ruiz MD) COPD (chronic obstructive pulmonary disease) GERD (gastroesophageal reflux disease) Diabetic neuropathy Claudication of both lower extremities 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 2 diabetes mellitus residential (current) use of insulin Vitamin D deficiency DM type 2 (diabetes mellitus, type 2) CAD (coronary artery disease) Non-ST elevation HI (NSTEMI) Patellofemoral arthritis of right knee Right knee pain emt intermediate current use of anticoagulant Abnormal stress test Hypertension Obstructive sleep apnea Asthma with COPD Anemia CKD stage 3 due to type 2 diabetes mellitus Tracheomalacia, acquired History of pulmonary embolism AG (acute kidney injury) Paroxysmal atrial fibrillation Pulmonary embolism Obesity Dyslipidemia Respiratory failure Surgical History History of carpal tunnel surgery History of cholecystectomy History of lobectomy of lung Status post tracheoplasty History of cardiac cath Family History Mother No problems noted. Father No problems noted. Brother Substance use disorder Brother Substance use disorder Social History Household Members: Family Household Members Other:: 2 Housing: House Do you presently have visiting nurse or other home services: No Alcohol intake: former Comment: weddings Patient Tobacco Use Status: Former Tobacco user Tobacco use type: Cigarette Cigarettes Per Day: 10 Years Smoked: 3 stopped 1992 e-Cigarette/Vaping Use: Never Used Second Hand Smoke Exposure: Yes Advance Directives Date on File: 06/29/23 service: No Current occupational status: retired Cognitive needs: No Hearing needs: No Vision needs: No Physical Exam Vital Signs: Last Vital Signs Pulse 96 07/09/25 13:17 BP 140/42 H 07/09/25 13:17 Pulse Ox 97 07/09/25 13:17 Oxygen Delivery Method Room Air 07/09/25 13:17 BMI result Body Mass Index 32.6 Blood pressure 100/40. No orthostasis. Symmetrical in both upper extremities Comfortable Neck supple no JVD. Lungs entry equal no rales. Heart S1-S2 heard no gallop or rub. Abdomen soft nontender. Neuro alert awake oriented. No asterixis. Extremities no edema. Results Reviewed Nephrology Results: Hgb, (12.0-16.0) 10.0 g/dl L 05/29/25 WBC, (4.8-10.8) 9.7 X10*3/uL 05/29/25 Plt Count, (160-400) 309 X10*3/uL 05/29/25 Sodium, (135-145) 142 mmol/L 05/29/25 Potassium, (3.3-5.1) 4.0 mmol/L 05/29/25 Chloride, (96-108) 107 mmol/L 05/29/25 Carbon Dioxide, (22-29) 30 mmol/L H 05/29/25 BUN, (9-16) 24 mg/dL H 05/29/25 Creatinine, (0.5-1.4) 1.36 mg/dL 05/29/25 Calcium, (8.4-10.2) 8.8 mg/dL 05/29/25 Urine Protein, (Neg-Trace) 30 (1+) mg/dL H 05/29/25 Urine Creatinine 103.72 mg/dL 05/29/25 Renal US 07/04/25 Assessment & Plan Assessment & Plan (1) Hypertension: Code(s): I10 - Essential (primary) hypertension Category: Medical Qualifiers: Hypertension type: primary hypertension Qualified Code(s): I10 - Essential (primary) hypertension (2) CKD stage 3 due to type 2 diabetes mellitus: Code(s): E11.22 - Type 2 diabetes mellitus with diabetic chronic kidney disease; N18.30 - Chronic kidney disease, stage 3 unspecified Category: Medical (3) Anemia: Comment: Negative EGD 12/28, colonoscopy in 2021 consistent with multiple polyps, recommended repeat colonoscopy was in 1 year, postpone it due to hospitalization for NSTEMI 06/28, improved on Iron supplement Code(s): D64.9 - Anemia, unspecified Category: Medical Qualifiers: Anemia type: unspecified type Qualified Code(s): D64.9 - Anemia, unspecified Plan: Needs GI follow up Add Iron tabs IF she cant tolerate, would arrange for IV Iron Plan 1. Chronic Kidney Disease Baseline creatinine is between 1.0 to 1.4. The fluctuation is most likely hemodynamic She probably has underlying hypertensive nephrosclerosis. Recent urine sediments were bland and no evidence of glomerular nephritis or interstitial disease. - Monitor kidney function with regular serum creatinine tests. Atrophic right kidney OMAYRA of left renal artery by doppler Pros and cons of itervention discussed IF BP is difficult to control of if renal function deteriorates, will consider angiogram/angioplasty 3. Proteinuria Non nephrotic Most likely due to underlying diabetic kidney disease. - Monitor urine protein levels periodically. 4. Chronic Obstructive Pulmonary Disease (Copd) - Continue current management for COPD, monitor for exacerbations. 5. Diabetes Mellitus - Maintain HbA1c below 7.0 with current diabetes management plan. 7. Congestive Heart Failure - Monitor for signs of fluid overload, Keep Lasix20 mg Stay on low-sodium diet Monitor daily weights 8. Atrial Fibrillation - Continue management with carvedilol and diltiazem, monitor heart rate. Medications: New ferrous sulfate 325 mg PO TID 100 tabs 1RF Coding Level of Care Code Est Pt Level 4 (65225) Diagnoses Primary hypertension I10 Hypertension type: primary hypertension CKD stage 3 due to type 2 diabetes mellitus E11.22; N18.30 Anemia, unspecified type D64.9 Anemia type: unspecified type
== END 2025-07-09 13:44 | disposition home or self-care (01) ==
LOC: HO.HKA 13:14
PROVIDERS: PCP Internal Medicine; Visit Provider Internal Medicine Hypertension Specialist
DX: I10 Essential (primary) hypertension (principal); E11.22 Type 2 diabetes mellitus with diabetic chronic kidney disease; N18.30 Chronic kidney disease, stage 3 unspecified; D64.9 Anemia, unspecified
CPT/HCPCS: 99214

== ENCOUNTER → 2025-07-09 13:14 | Outpatient (BNVA) | payer MEDICARE, SELFPAY | PROVIDERS: PCP Internal Medicine; Visit Provider Internal Medicine Hypertension Specialist | DX: E11.22 Type 2 diabetes mellitus with diabetic chronic kidney disease (principal); E11.3299 Type 2 diabetes mellitus with mild nonproliferative diabetic retinopathy without macular edema, unspecified eye; I12.9 Hypertensive chronic kidney disease with stage 1 through stage 4 chronic kidney disease, or unspecified chronic kidney disease; N18.30 Chronic kidney disease, stage 3 unspecified; N17.9 Acute kidney failure, unspecified; D64.9 Anemia, unspecified; Z79.4 Long term (current) use of insulin | CPT/HCPCS: 99212 ==

== ENCOUNTER 2025-07-16 13:54 | Inpatient (IN) | payer MEDICARE, SELFPAY ==
[2025-07-16] VITALS (10 sets, daily range): BP systolic 141–173; BP diastolic 38–63; PULSE 65–92; RESP 15–26; TEMP 36.4–36.7; O2SAT 93–96; BMI 33.2
--- NOTE | ~2025-07-16 | XR_ITS ---
CLINICAL HISTORY: constipation 1 view abdomen Comparison: None provided Findings: Large stool burden in the colon. Cholecystectomy clips. No pneumatosis. No abnormal calcifications. Multilevel degenerative changes of the spine. IMPRESSION: Nonobstructive bowel gas pattern. Large stool burden in the colon. This document has been electronically signed by: Colette Hillman MD on 07/18/2025 19:56:49
--- NOTE | ~2025-07-16 | CT_ITS ---
EXAMINATION: CT CHEST WITHOUT CONTRAST CLINICAL INFORMATION: Hypoxia COMPARISON: 07/05/2024 TECHNIQUE: Multidetector volumetric CT imaging of the chest was done. Axial MIP volume rendering provided. Sagittal and coronal reformatted images were obtained. This CT examination was performed using dose optimization techniques as appropriate, variously including the following: *Automated exposure control *Adjustment of mA and/or kV according to patient size (this includes techniques or standardized protocols for targeted exams where dose is matched to indication/reason for exam; i.e. extremities or head) *Use of iterative reconstruction technique FINDINGS: LUNGS: The lungs are clear No pulmonary nodules are evident. MEDIASTINUM: Heart size is within normal limits. There is no adenopathy. CORONARY ARTERY CALCIFICATION: Present PLEURA: Again seen are areas of pleural thickening. There is thickening along the left major fissure with areas of calcification. There is cordlike thickening of the pleura along the anteromedial segment of the left lower lobe. There is thickening of the minor fissure. There is linear septal lines in the lateral segment right middle lobe. There is calcified pleural plaque posterior right upper chest These areas appeared similar on the last exam. AXILLA: No lymphadenopathy. UPPER ABDOMEN: The gallbladder surgically absent. There are clips in the gallbladder fossa. OSSEOUS STRUCTURES: There is widening of the intercostal space between the right fourth and fifth ribs and healed fracture of the lateral right fourth rib posterior fifth. There is bridging callus between the lateral right sixth and seventh ribs There is a healed fracture of the posterior left sixth rib with ossification posteriorly bridging down to the seventh rib. There is moderate degenerative changes in thoracic spine with disc space narrowing and bridging and nonbridging osteophytes. CT/CT chest wo IV con IMPRESSION: There are chronic changes with multiple healed rib fractures and areas of pleural thickening and pleural calcification that may be posttraumatic in nature. The appearance is stable compared to the study performed one year ago. Fleischner guidelines were followed. Electronically signed by: Gordo Owusu MD 07/17/2025 09:52 AM EST
--- NOTE | ~2025-07-16 | XR_ITS ---
EXAMINATION: XR CHEST CLINICAL INFORMATION: chest pain, SOB COMPARISON: Chest 04/25/2025 TECHNIQUE: 2 views of the chest were obtained. FINDINGS: The lungs are well-expanded and clear acute pneumonic process. There is platelike atelectasis or scarring in left midlung. Heart size and pulmonary vascularity is normal. Moderate spondylosis seen in dorsal spine with mild levoscoliosis of mid to lower dorsal spine. There is ventral plate and screws lower cervical spine for fusion. XR/XR chest 2V IMPRESSION: There is platelike scarring or atelectasis left midlung. No acute cardiopulmonary process seen. There is mild levoscoliosis mid dorsal spine with spondylosis. Electronically signed by: Marco Candelaria MD 07/16/2025 02:59 PM EST
--- NOTE | 2025-07-16 13:55 | ECG_ITS ---
Test Reason : CP Blood Pressure : */* mmHG Vent. Rate : 64 BPM Atrial Rate : 64 BPM P-R Int : 150 ms QRS Dur : 78 ms QT Int : 436 ms P-R-T Axes : * 46 106 degrees QTcB Int : 449 ms Normal sinus rhythm Nonspecific ST and T wave abnormality Abnormal ECG When compared with ECG of 03-May-2025 17:50, Vent. rate has decreased by 37 bpm Referred By: Jenn Freed Electronically Signed By: NELSON PLASCENCIA MD
--- NOTE | 2025-07-16 14:22 | ED.GENADULT ---
HPI - General Adult General Chief complaint: Dyspnea Stated complaint: CP, sob Time Seen by Provider: 07/16/25 15:33 History of Present Illness ED Provider: Dr. 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 Worsened this morning. Associated with a non-productive cough. Otherwise denies: fever or chills, nausea/vomiting, abdominal pain. Related Data Home Medications ?Medication ?Instructions ?Recorded ?Confirmed cholecalciferol (vitamin D3) 25 25 mcg PO DAILY 08/11/23 07/09/25 mcg (1,000 unit) tablet albuterol sulfate 90 mcg/actuation 2 puff inhalation QID PRN 05/17/24 07/09/25 aerosol inhaler SOB/wheezing budesonide-formoterol HFA 160 2 puff inhalation BID PRN SOB 05/17/24 07/09/25 mcg-4.5 mcg/actuation aerosol inhaler (Symbicort) sennosides 8.6 mg-docusate sodium 2 tab PO BID PRN 11/08/24 07/09/25 50 mg tablet (Stimulant Laxative Plus) Previous Rx's ?Medication ?Instructions ?Recorded walker #1 ea 02/28/23 acetaminophen 325 mg tablet 650 mg (2 x 325 mg) PO Q6H PRN 08/22/23 pain #30 tabs compr.stocking,thigh,reg,large #2 ea 02/08/24 blood-glucose meter (OneTouch #1 ea 03/06/24 Verio Flex Meter) ipratropium 0.5 mg-albuterol 3 mg 3 ml inhalation Q6H PRN wheezing 11/16/24 (2.5 mg base)/3 mL nebulization 30 days #180 mL soln pantoprazole 40 mg tablet,delayed 40 mg PO .qd #90 tabs 12/14/24 release sumatriptan succinate 50 mg tablet See Rx Instructions PO .COMPLEX 01/22/25 #10 tabs apixaban 5 mg tablet (Eliquis) 5 mg PO BID #180 tabs 01/31/25 buspirone 10 mg tablet 10 mg PO BID #180 tabs 01/31/25 empagliflozin 25 mg tablet 25 mg PO DAILY #90 tabs 01/31/25 (Jardiance) furosemide 20 mg tablet 20 mg PO DAILY #90 tabs 01/31/25 citalopram 20 mg tablet 30 mg (1.5 x 20 mg) PO DAILY #135 02/15/25 tabs montelukast 10 mg tablet 10 mg PO BEDTIME for asthma #90 04/17/25 tabs meclizine 12.5 mg tablet 12.5 mg PO TID PRN dizziness #14 04/19/25 tabs blood sugar diagnostic (OneTouch #100 ea 05/08/25 Verio test strips) blood-glucose sensor (FreeStyle #2 ea 05/08/25 Kelly 3 Plus Sensor device) glucose 4 gram chewable tablet 16 g (4 x 4 gram) PO Q15M PRN 05/08/25 (Dex4 Glucose Quick Dissolve) hypoglycemia (blood sugar under 70) #30 tabs insulin glargine 100 unit/mL (3 25 unit (0.25 mL) subcut BEDTIME 05/08/25 mL) subcutaneous pen (Lantus #15 mL Solostar U-100 Insulin) insulin lispro 100 unit/mL 1 sliding scale dose subcut 05/08/25 subcutaneous pen (Humalog KwikPen USEASDIRECTD #15 mL (U-100) Insulin) lancets 30 gauge (OneTouch Delica #100 ea 05/08/25 Plus Lancet) semaglutide 2 mg/dose (8 mg/3 mL) 2 mg (0.75 mL) subcut QWEEK #3 mL 05/08/25 subcutaneous pen injector (Ozempic) famotidine 20 mg tablet 20 mg PO Q OTHER DAY #20 tabs 05/18/25 nitroglycerin 0.3 mg sublingual 0.3 mg sublingual Q5M PRN chest 05/18/25 tablet pain #20 tabs diltiazem HCl 240 mg 240 mg PO DAILY #90 caps 05/28/25 capsule,extended release 24 hr (Cartia XT) atorvastatin 80 mg tablet 80 mg PO BEDTIME #90 tabs 06/30/25 ferrous sulfate 325 mg (65 mg 325 mg PO TID #100 tabs 07/09/25 iron) tablet carvedilol 12.5 mg tablet 12.5 mg PO BID 90 days #180 tabs 07/13/25 Allergies Allergy/AdvReac Type Severity Reaction Status Date / Time Latex, Natural Rubber Allergy Severe blisters Verified 07/16/25 14:23 Sulfa (Sulfonamide Allergy Mild ITCHING, Verified 07/16/25 14:23 Antibiotics) (SULFA rash (SULFONAMIDE ANTIBIOTICS)) nystatin Allergy Unknown rash Verified 07/16/25 14:23 isosorbide (From Imdur) AdvReac Unknown HEADACHES, Verified 07/16/25 14:23 headache tizanidine AdvReac Unknown weakness, Verified 07/16/25 14:23 Hellucination Review of Systems Review of Systems: Yes all other systems are reviewed and are negative [facility] Past Medical History Attestation statement: The following information was validated with the patient. 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 Father No problems noted. Brother Substance use disorder Brother Substance use disorder Social History Social History Household Members: Family Household Members Other:: 2 Housing: House Do you presently have visiting nurse or other home services: No Alcohol intake: former Comment: weddings Patient Tobacco Use Status: Former Tobacco user Tobacco use type: Cigarette Cigarettes Per Day: 10 Years Smoked: 3 stopped 1992 e-Cigarette/Vaping Use: Never Used Second Hand Smoke Exposure: Yes Advance Directives: Yes Advance Directives on File: Yes Advance Directives Date on File: 06/29/23 Do you have a plan to hurt others: No Plan service: No Current occupational status: retired Cognitive needs: No Hearing needs: No Vision needs: No Physical Exam ED Vital Signs: Vital Signs - 24 hr 07/16/25 14:22 07/16/25 14:59 07/16/25 16:19 Temperature 98.0 F Pulse Rate 65 66 69 Respiratory Rate 26 H 26 H 22 H Blood Pressure 141/63 H Pulse Oximetry 95 Oxygen Delivery Method Room Air 07/16/25 17:10 Temperature Pulse Rate 74 Respiratory Rate 19 Blood Pressure 164/49 H Pulse Oximetry 93 Oxygen Delivery Method Room Air BMI result Body Mass Index 33.2 Patient is afebrile and hemodynamically stable. Const General: cooperative Orientation/consciousness: patient oriented x3 HENMT Head: Yes normal to inspection and Yes atraumatic Eyes General: appearance normal, both eyes and all related structures Pupils: Equal, round and reactive pupils present EOM: EOMs intact bilaterally Neck Neck: Yes normal visual inspection, Yes full ROM, Yes supple and No tender Chest Chest palpation & inspection: normal inspection of the chest and normal palpation of entire chest wall Resp Other: Mild tachypnea Mild diffuse end-expiratory wheezing with reduced air entry Effort & Inspection: able to speak in complete sentences and Actively coughing Cardio Rate: regular rate Rhythm: regular rhythm Peripheral pulses: Peripheral pulses 2+ throughout GI Inspection: No Abdominal wall edema and No distended Palpation (GI): Soft to palpation, not firm, nontender, no guarding and not rigid Auscultation: normal bowel sounds Back/Spine/Pelvis Back: No back tenderness Neuro General: patient oriented x3 Cranial nerves: Yes Equal, round and reactive pupils present Course Course Course Narrative: Rapid medical examination performed in triage by Jenn Freed PA-C: Patient is a 74 year old assigned female at presenting to the emergency department with shortness of breath and chest pain. Detailed physical exam and review of systems are deferred to the billing clinician. EKG, labs, imaging, and swabs ordered. Patient placed back in the waiting room pending room availability and results. Reevaluation(s) Reevaluation #1: Patient is afebrile and hemodynamically stable. Reviewed CXR, EKG, and labs including VBG ordered in triage. Labs reviewed. Mild leukocytosis 12.5. Baseline mild anemia Hgb 9.9. VBG without acidosis. Cr 1.36, baseline. Troponin 10.9. Prior troponin 8.7 in 05/03/2025. Will repeat 2hrs after initial troponin. BNP elevated at 940.9. BNP is within indeterminate zone. CXR is unremarkable. Patient received bronchodilator protocol. COVID/Flu/RSV negative. Will provide prednisone 60mg IV, azithromycin 500mg IV, magnesium 2g IV, morphine 2mg IV. Will request RT re-evaluate. Following 2nd bronchodilator treatment patient is feeling some degree improved. She has improved air entry. She still feels quite dyspneic on even minimal exertion. Plan: Admit to hospitalist Condition: Stable Medications Administered Generic Name Dose Route Start Last Admin Trade Name Freq PRN Reason Stop Dose Admin Azithromycin 500 mg/ Sodium 250 mls @ 125 mls/hr 07/16/25 15:58 07/16/25 17:01 Chloride IV 07/16/25 17:57 125 mls/hr ONCE ONE Administration Discontinued Medications Generic Name Dose Route Start Last Admin Trade Name Freq PRN Reason Stop Dose Admin Albuterol Sulfate 5 mg/ 7.5 mg 07/16/25 15:23 07/16/25 15:25 Albuterol Sulfate 2.5 mg INHALE 07/16/25 15:24 7.5 mg ONCE ONE Administration Albuterol Sulfate 2.5 mg/ 0 mg 07/16/25 16:15 07/16/25 16:19 Albuterol/Ipratropium 3 ml INHALE 07/16/25 16:16 1 dose ONCE ONE Administration Magnesium Sulfate 2 gm in 50 mls @ 150 mls/hr 07/16/25 15:58 07/16/25 16:50 Magnesium Sulfate/H2o IV 07/16/25 16:17 Infused ONCE ONE Infusion Methylprednisolone Sodium Succinate 60 mg 07/16/25 15:58 07/16/25 16:16 Methylprednisolone Sod Succ 125 Mg/2 Ml Vial IVPUSH 07/16/25 15:59 60 mg ONCE ONE Administration Morphine Sulfate 2 mg 07/16/25 15:58 07/16/25 16:16 Morphine Sulfate 4 Mg/Ml Cartridge IVPUSH 07/16/25 15:59 2 mg ONCE ONE Administration Protocol Ondansetron HCl 4 mg 07/16/25 15:58 07/16/25 16:16 Ondansetron Hcl 4 Mg/2 Ml Vial IVPUSH 07/16/25 15:59 4 mg ONCE ONE Administration Medical Decision Making Lab Data 07/16/25 14:34 07/16/25 14:34 Labs: Lab Results 07/16/25 07/16/25 07/16/25 Range/Units 14:34 14:35 14:40 WBC 12.5 H (4.8-10.8) X10*3/uL RBC 4.51 (4.20-5.50) X10*6/uL Hgb 9.9 L (12.0-16.0) g/dl Hct 33.6 L (37.0-47.0) % MCV 74.5 L (80.0-98.0) fL MCH 22.0 L (27.0-33.0) pg MCHC 29.5 L (31.0-35.0) g/dl RDW 17.5 H (11.0-16.0) % Plt Count 316 (160-400) X10*3/uL MPV 9.3 L (9.4-12.3) fL Immature Gran % (Auto) 0.3 (0.0-0.4) % Neut % (Auto) 75.2 H (45-73) % Lymph % (Auto) 11.3 L (20-40) % Bell % (Auto) 7.3 (2-11) % Eos % (Auto) 4.9 H (0-4) % Baso % (Auto) 1.0 (0-2) % Lymph # (Auto) 1.4 (1.2-4.9) X10*3/uL Bell # (Auto) 0.9 (0.1-1.2) X10*3/uL Eos # (Auto) 0.6 H (0.0-0.4) X10*3/uL Baso # (Auto) 0.1 (0.0-0.2) X10*3/uL Abs Immat Gran (auto) 0.04 H (0.00-0.03) X10*3/uL Absolute Neuts (auto) 9.4 H (2.0-8.3) x10*3/uL Absolute Nucleated RBC 0.000 (0.0-0.012) X10*3/uL Nucleated RBC % (auto) 0.0 (0.0-0.2) /100WBC PT 19.9 H (11.2-13.5) SEC INR 1.6 H (0.9-1.1) VBG pH 7.46 H (7.32-7.43) VBG pCO2 40 mmHg VBG pO2 42 mmHg VBG HCO3 28 H (22-26) mmol/L VBG O2 Saturation 56.0 % VBG Base Excess 4.8 mmol/L Sodium 139 (135-145) mmol/L Potassium 3.9 (3.3-5.1) mmol/L Chloride 101 (96-108) mmol/L Carbon Dioxide 27 (22-29) mmol/L Anion Gap 15 (12-20) BUN 26 H (9-16) mg/dL Creatinine 1.36 (0.5-1.4) mg/dL Estim Creat Clear Calc 36.3 Estimated GFR 38 Random Glucose 230 H (60-115) mg/dL Calcium 9.1 (8.4-10.2) mg/dL Magnesium 2.0 (1.6-2.6) mg/dL Total Bilirubin 0.5 (0.0-1.0) mg/dL AST 20 (5-31) U/L ALT 21 (0-31) U/L Alkaline Phosphatase 147 H (39-117) U/L Troponin I High Sens 10.9 (<3.5-17.0) ng/L NT-Pro-B Natriuret Pep 940.9 H (<300) pg/mL Total Protein 7.4 (6.5-8.0) g/dL Albumin 4.2 (3.5-5.0) g/dL Influenza Type A (PCR) NEGATIVE (Negative) Influenza Type B (PCR) NEGATIVE (Negative) RSV RNA Qual (PCR) NEGATIVE (Negative) SARS-CoV-2 RNA (RT-PCR) NEGATIVE (Negative) Independent Interpretation I performed an independent interpretation of an: EKG Interpretation: EKG independently interpreted by myself as NSR 64BPM without ischemic changes. Radiology Impression Discussion of test interpretation with radiology: I have reviewed the radiologist's reading. Radiologist Impression: EXAMINATION: XR CHEST CLINICAL INFORMATION: chest pain, SOB COMPARISON: Chest 04/25/2025 TECHNIQUE: 2 views of the chest were obtained. FINDINGS: The lungs are well-expanded and clear acute pneumonic process. There is platelike atelectasis or scarring in left midlung. Heart size and pulmonary vascularity is normal. Moderate spondylosis seen in dorsal spine with mild levoscoliosis of mid to lower dorsal spine. There is ventral plate and screws lower cervical spine for fusion. XR/XR chest 2V IMPRESSION: There is platelike scarring or atelectasis left midlung. No acute cardiopulmonary process seen. There is mild levoscoliosis mid dorsal spine with spondylosis. Electronically signed by: Marco Candelaria MD 07/16/2025 02:59 PM EST Discharge Plan Discharge Clinical Impression: Asthma exacerbation in COPD Patient Disposition: Admitted As Inpatient Print Language: [place]
[2025-07-16 14:41] LABS: MANUAL DIFF FLAG NO
[2025-07-16 14:43] LABS: Hematocrit 33.6 % (37.0-47.0); Hemoglobin 9.9 g/dl (12.0-16.0); Imm Gran Abs Auto 0.04 X10*3/uL (0.00-0.03); Imm Gran Pct Auto 0.3 % (0.0-0.4); Lymphocytes Absolute Auto 1.4 X10*3/uL (1.2-4.9); Mean Corpuscular HGB Conc 29.5 g/dl (31.0-35.0); Mean Corpuscular Hemoglobin 22.0 pg (27.0-33.0); Mean Corpuscular Volume 74.5 fL (80.0-98.0); NRBC Abs Auto 0.000 X10*3/uL (0.0-0.012); NRBC Pct Auto 0.0 /100WBC (0.0-0.2); Platelet Count 316 X10*3/uL (160-400); Red Blood Count 4.51 X10*6/uL (4.20-5.50); White Blood Count 12.5 X10*3/uL (4.8-10.8)
[2025-07-16 14:44] LABS: Venous Blood Gas Refer to POC result
[2025-07-16 14:45] LABS: VBG HCO3 28 mmol/L (22-26); VBG O2 % Saturation 56.0 %
[2025-07-16 14:49] LABS: INTERNATIONAL NORM RATIO 1.6 (0.9-1.1); Prothrombin Time 19.9 SEC (11.2-13.5)
[2025-07-16 15:12] LABS: Alanine Aminotransferase 21 U/L (0-31); Albumin Level 4.2 g/dL (3.5-5.0); Alkaline Phosphatase 147 U/L (39-117); Anion Gap 15 (12-20); Aspartate Amino Transferase 20 U/L (5-31); Blood Urea Nitrogen 26 mg/dL (9-16); Calcium 9.1 mg/dL (8.4-10.2); Carbon Dioxide 27 mmol/L (22-29); Chloride 101 mmol/L (96-108); Creatinine Clr Calc Pharmacy 36.3; Estimated Glomerular Filt Rate 38; Magnesium 2.0 mg/dL (1.6-2.6); Potassium 3.9 mmol/L (3.3-5.1); Sodium 139 mmol/L (135-145); Total Protein 7.4 g/dL (6.5-8.0)
[2025-07-16] MEDS: Albuterol Sulfate 5 MG, Albuterol Sulfate (0.083%) 2.5 MG 7.5 MG INHALE (15:25)
[2025-07-16 15:38] LABS: NT Pro B Type Natriuretic Pept 940.9 pg/mL (<300); Troponin-I High Sensitivity 10.9 ng/L (<3.5-17.0)
[2025-07-16 15:52] LABS: Resp Syncy Virus RNA Qual PCR NEGATIVE (Negative); SARS COV2 PCR INHOUSE NEGATIVE (Negative)
[2025-07-16] MEDS: Magnesium Sulfate/H2O 2 GM/50 ML PIGGYBACK IV (16:15)
[2025-07-16] MEDS: Albuterol Sulfate 2.5 MG, Albuterol/Iprat 2.5/0.5MG 3 ML 3 ML INHALE (16:19)
--- NOTE | 2025-07-16 17:37 | PM.IMHP ---
History of Present Illness Date of Service: 07/16/25 Chief Complaint: sob 74F PMH COPD, ALYSIA, obesity, CAD s/p stent, chronic diastolic CHF, diabetes, paroxysmal AFib, chronic iron-deficiency anemia, tracheal stenosis status post trachplasty presented with sob. Has been ongoing for about 2 days with productive cough with yellow sputum, positive orthopnea requiring 4 pillows at night. Denies any weight gain or edema. Reports grandson with active asthma, denies fever or chills. In ED noted to be hypoxic to high 80s on ambulation, recovered to 93 on room air at rest. Hypertensive to 164/49. Chest x-ray with platelike scarring or atelectasis in left mid lung no acute cardiopulmonary process seen. 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 Father No problems noted. Brother Substance use disorder Brother Substance use disorder Surgical History History of carpal tunnel surgery History of cholecystectomy History of lobectomy of lung Status post tracheoplasty History of cardiac cath Social History Household Members: Family Household Members Other:: 2 Housing: House Do you presently have visiting nurse or other home services: No Alcohol intake: former Comment: weddings Patient Tobacco Use Status: Former Tobacco user Tobacco use type: Cigarette Cigarettes Per Day: 10 Years Smoked: 3 stopped 1992 e-Cigarette/Vaping Use: Never Used Second Hand Smoke Exposure: Yes Advance Directives: Yes Advance Directives on File: Yes Advance Directives Date on File: 06/29/23 Do you have a plan to hurt others: No Plan service: No Current occupational status: retired Cognitive needs: No Hearing needs: No Vision needs: No Meds Allergies Allergy/AdvReac Type Severity Reaction Status Date / Time Latex, Natural Rubber Allergy Severe blisters Verified 07/16/25 14:23 Sulfa (Sulfonamide Allergy Mild ITCHING, Verified 07/16/25 14:23 Antibiotics) (SULFA rash (SULFONAMIDE ANTIBIOTICS)) nystatin Allergy Unknown rash Verified 07/16/25 14:23 isosorbide (From Imdur) AdvReac Unknown HEADACHES, Verified 07/16/25 14:23 headache tizanidine AdvReac Unknown weakness, Verified 07/16/25 14:23 Hellucination Active Medications: Current Medications Acetaminophen (Acetaminophen 325 Mg Tablet) 650 mg PO Q6H PRN PRN Reason: Pain, Mild 1-3,fever,headache Albuterol/Ipratropium (Albuterol/Iprat 2.5/0.5mg 3 Ml Ampul.Neb) 3 ml INHALE RQ4H WHILE AWAKE PRN PRN Reason: sob Apixaban (Apixaban 5 Mg Tablet) 5 mg PO BID LOU Azithromycin (Azithromycin 500 Mg Tablet) 500 mg PO Q24H LOU Calcium Carbonate (Calcium Carbonate 750 Mg Tab.Chew) 750 mg PO Q4H PRN PRN Reason: Heartburn Carvedilol (Carvedilol 12.5 Mg Tablet) 12.5 mg PO BID LOU; Protocol Dextrose (Dextrose 50 % 25 Gm/50 Ml Syringe) 25 gm IVPUSH Q15M PRN; Protocol PRN Reason: per Hypoglycemia Standing Ord. Furosemide (Furosemide 40 Mg/4 Ml Vial) 40 mg IVPUSH BID@0900,1800 LOU; Protocol Glucose (Glucose Gel 15 Gm Gel..Gram.) 15 gm PO Q15M PRN; Protocol PRN Reason: per Hypoglycemia Standing Ord. Azithromycin 500 mg/ Sodium (Chloride) 250 mls @ 125 mls/hr IV ONCE ONE Stop: 07/16/25 17:57 Last Admin: 07/16/25 17:01 Dose: 125 mls/hr Insulin Human Lispro (Insulin Lispro 100 Unit/Ml 3 Ml Vial) 0 unit SUBCUT QIDACHS LOU; Protocol Magnesium Hydroxide (Milk Of Magnesia 30 Ml Oral.Susp) 30 ml PO DAILY PRN PRN Reason: Constipation Melatonin (Melatonin 3 Mg Tablet) 6 mg PO BEDTIME PRN PRN Reason: Insomnia Methylprednisolone Sodium Succinate (Methylprednisolone Sod Succ 40 Mg/Ml Vial) 40 mg IVPUSH Q12H LOU Sodium Chloride (0.9 % Sodium Chloride Flush 3 Ml Syringe) 3 ml IVFLUSH QSHIFT [facility] Home Medications ?Medication ?Instructions ?Recorded ?Confirmed ?Last Taken ?Type cholecalciferol (vitamin D3) 25 25 mcg PO DAILY 08/11/23 07/09/25 05/26/24 07:00 History mcg (1,000 unit) tablet albuterol sulfate 90 mcg/actuation 2 puff inhalation QID PRN 05/17/24 07/09/25 Unknown History aerosol inhaler SOB/wheezing budesonide-formoterol HFA 160 2 puff inhalation BID PRN SOB 05/17/24 07/09/25 Unknown History mcg-4.5 mcg/actuation aerosol inhaler (Symbicort) sennosides 8.6 mg-docusate sodium 2 tab PO BID PRN 11/08/24 07/09/25 Unknown History 50 mg tablet (Stimulant Laxative Plus) diltiazem HCl 300 mg 300 mg PO DAILY 07/16/25 Unknown History capsule,extended release 24 hr (Cartia XT) pantoprazole 40 mg tablet,delayed 40 mg PO DAILY@0630 07/16/25 Unknown History release Physical Exam Vital Signs and Narrative: Vital Signs: Last Vital Signs Temp 98.0 F 07/16/25 14:22 Pulse 74 07/16/25 17:10 Resp 19 07/16/25 17:10 BP 164/49 H 07/16/25 17:10 Pulse Ox 93 07/16/25 17:10 O2 Del Method Room Air 07/16/25 17:10 BMI result Body Mass Index 33.2 General: AO X 3, no acute distress Resp: poor air entry, wheezing bilateral, no accessory muscles used CVS: S1,S2,RRR GI: soft, non tender, non distended Neuro: motor grossly intact, alert Psych: appropriate affect, appropriate insight Results Labs 07/16/25 14:34 07/16/25 14:34 Labs: Laboratory Results - last 24 hr 07/16/25 07/16/25 07/16/25 14:34 14:35 14:40 MCV 74.5 L MCH 22.0 L MCHC 29.5 L RDW 17.5 H Plt Count 316 MPV 9.3 L Immature Gran % (Auto) 0.3 Neut % (Auto) 75.2 H Lymph % (Auto) 11.3 L [place] % (Auto) 7.3 Eos % (Auto) 4.9 H Baso % (Auto) 1.0 Lymph # (Auto) 1.4 [place] # (Auto) 0.9 Eos # (Auto) 0.6 H Baso # (Auto) 0.1 Abs Immat Gran (auto) 0.04 H Absolute Neuts (auto) 9.4 H Absolute Nucleated RBC 0.000 Nucleated RBC % (auto) 0.0 PT 19.9 H INR 1.6 H VBG pH 7.46 H VBG pCO2 40 VBG pO2 42 VBG HCO3 28 H VBG O2 Saturation 56.0 VBG Base Excess 4.8 Anion Gap 15 Estim Creat Clear Calc 36.3 Estimated GFR 38 Random Glucose 230 H Calcium 9.1 Magnesium 2.0 Total Bilirubin 0.5 AST 20 ALT 21 Alkaline Phosphatase 147 H Troponin I High Sens 10.9 NT-Pro-B Natriuret Pep 940.9 H Total Protein 7.4 Albumin 4.2 Influenza Type A (PCR) NEGATIVE Influenza Type B (PCR) NEGATIVE RSV RNA Qual (PCR) NEGATIVE SARS-CoV-2 RNA (RT-PCR) NEGATIVE Imaging Radiologist's Impressions: Impressions Chest X-Ray 07/16/25 14:45 IMPRESSION: There is platelike scarring or atelectasis left midlung. No acute cardiopulmonary process seen. There is mild levoscoliosis mid dorsal spine with spondylosis. Electronically signed by: Marco Candelaria MD 07/16/2025 02:59 PM EST Assessment and Plan (1) CAD (coronary artery disease): Qualifiers: Coronary Disease-Associated Artery/Lesion type: [place] artery [place] vs. transplanted heart: [place] heart Associated angina: with unspecified form of angina Qualified Code(s): I25.119 - Atherosclerotic heart disease of [place] coronary artery with unspecified angina pectoris Status: Acute Plan 74F PMH COPD, ALYSIA, CAD, obesity, chronic diastolic CHF, diabetes, paroxysmal AFib, chronic iron-deficiency anemia, tracheal stenosis status post trachplasty presented with sob Acute ambulatory hypoxia due to COPD with acute decompensation and acute on chronic diastolic CHF IV steroids, DuoNebs, IV Lasix, monitor electrolytes Azithromycin Paroxysmal AF Carvedilol, Cardizem, apixaban CAD Apixaban, statin Chronic iron-deficiency anemia monitor, outpatient follow up DM insulin alysia not tolerant of cpap dvt prophylaxis - eliquis full code Quality Stroke Does the patient have a stroke diagnosis?: No VTE Prior VTE?: No VTE Risk Level:: Medical - moderate - high VTE Device Contraindication: Treatment Not Indicated VTE Drug Contraindication: N/A - Med Ordered
[2025-07-16 17:51] LABS: Troponin-I High Sensitivity 11.1 ng/L (<3.5-17.0)
--- OUTSIDE RECORDS SUMMARY | 2025-07-16 18:04 | XMS_ITS | Clinical Summary ---
Author Organization [facility] Facility Address [address] [place] [id number] Care Team Providers Care Firefighting Equipment Specialist Name Role Phone Unavailable Primary Care [...]
--- OUTSIDE RECORDS SUMMARY | 2025-07-16 18:04 | XMS_ITS | Data Portability ---
Author Organization [place] [facility] Address [address] [place] [id number] Care Team Providers Care Shuttle Final Inspector Name Role Phone EMILY HINOJOSA Primary Care Provider Assessment Encounter Date Assessment Date Assessment LastModified [...] were drawn on scene to send to [facility]- INR, CBC with diff, CR, lytes,BUN glucose, ESR and CRP. Pt's daughter was not present during visit to discuss going to the ED. Pt was ambulatory at completion of visit. Labs were delivered to [facility] at the main campus [...] Go To The Location Of Their Choice, [id number] 12:39:18 CBC w/ auto diff 2020 KODI [facility] (Centralized Electronic Ordering - All Locations), Patient Can Go To The Location Of Their Choice, 12:32:11 erythrocy te sedimenta tion rate by nory tobar method - [facility] 2020 vidhya [facility] (Centralized Electronic Ordering - [...] Go To The Location Of Their Choice, [id number] 12/11/2020 13:00:22 12/12/1912/11/2020 elect rolyt e panel , serum sodium 140 mmol/ L (133-1 45) Not Available [facility] (Centralized Electronic Ordering - All Locations) Patient Can Go To The Location Of Their Choice, [id number] 12/11/2020 13:00:25 12/12/1912/11/2020 elect rolyt e panel , serum potassium 4.1 mmol/ L (3.6-5 .2) Not Available [facility] (Centralized Electronic Ordering - All Locations) Patient Can Go To The Location Of Their Choice, [id number] 12/11/2020 13:00:25 12/12/1912/11/2020 elect rolyt e panel , serum chloride 100 mmol/ L (98-10 7) Not Available [facility] (Centralized Electronic Ordering - All Locations) Patient Can Go To The Location Of Their Choice, [id number] 12/11/2020 13:00:25 12/12/1912/11/2020 elect rolyt e panel , serum bicarbonate 31 mmol/ L (22-29 ) high Not Available [facility] (Centralized Electronic Ordering - All Locations) Patient Can Go To The Location Of Their Choice, [id number] 12/11/2020 13:00:25 12/12/1912/11/2020 elect rolyt e panel , serum anion gap 9 (4-17) Not Available [facility] (Centralized Electronic Ordering - All Locations) Patient Can Go To The Location Of Their Choice, [facility] 12/11/2020 13:00:25 Result Notes None recorded. Procedures Surgical History Date Name Laterality Status Provider Name and Address Organization Details Recorded Time Cholecystectomy completed FELISA SMITH NP [address] [place], [address], [place] [facility] 12/11/2020 10:57:19 Imaging Results None recorded. Procedure Notes None recorded. Medical Equipment None Reported. Allergies Allergen ID Allergen Name Allergen Category Reaction Reaction Severity Criticality Documentation Date Start Date Code Code System Note Provider Name and Address Organization Details Recorded Time 016196 nystatin medicatio n rash Not available Not available 12/11/2020 7597 RxNorm FELISA LACKEY NP [address] [place], [address], [place] [facility] 10:54:28 922273 Substance with sulfonami de structure and antibacte rial mechanism of action (substanc e) medicatio n Not available Not available Not available 12/11/2020 50188 8003 SNOMED FELISA LACKEY, MESERET [address], [facility] [place], [address], [place] [facility] 10:54:42 Medications [...] /min 20 /min 158/70 mm[Hg] Not Available [facility] 10:58:40 Social History None recorded. Functional Status None recorded. Mental Status None recorded. Family History Nothing Reported. Medical History Condition Response Diabetes Y Coronary Artery Disease N Cancer Y Stroke N Depression Y COPD Y Asthma Y High Cholesterol Y Pulmonary Embolism Y Hypertension Y Kidney Disease N Gynecological HistoryNo gynecological history recorded. Obstetrics History GPAL:G 0 P 0 0 0 0 Past Encounters Encounter ID Performer Location Encounter Start Date Encounter Closed Date Diagnosis/Indication Diagnosis SNOMED-CT Code Diagnosis ICD10 Code Diagnosis IMO Codes Diagnosis Note [id number] FELISA LACKEY NP [facility] [address] [place] [address] 12/11/2020 10:52:43 12/12/2020 08:29:49 Headache 12583899 R51.9 Health Concerns Section Related Observation LastModified by Organization Detai ls LastModified Time None Recorded Concern Status LastModified by Organization Details LastModified Time None Recorded Advance Directives Directive None Recorded Payers Insurance Date Sequence Insurance Name Policy Number Policy Starr Covered Member ID Starr Member ID Guarantor Name 12/12/2020 1 [id number] 12/11/2020 1 *SELF PAY* Saima Lauro [id number] Saima Lauro 12/12/2020 2 [place]MED[place]ARE [place]AC[place] HMO) [id number] [id number] [facility] 12/12/2020 2 [place]MED[place]ARE [place]ACEMENT HMO) [id number] Saima Lauro [id number] [facility] Lauro 12/12/2020 1 [place]MED[place]AC[place] HMO) [id number] Saima Lauro [id number] Saima Lauro 12/12/2020 2 [place] [facility] Lauro [id number] [facility] Notes Date Note Type Note Provider Name [...] head and neck. They went to the [facility]- negative CT head, neck but developed [...] 1.7. FELISA LACKEY, MESERET [address], [place], [address], [place] [facility] 12/11/2020 12:05:25 OBGyn Episode No OBEpisode recorded.
--- NOTE | 2025-07-16 18:18 | PHA.MEDREC ---
Addendum entered by Micaela Ernandez RPh 07/16/25 18:45: REVIEWED BY PHARMACIST Original Note: Pharmacy Consult ? Medication Reconciliation Pharmacy has completed the medication reconciliation. Spoke with pt and pt daughter over the phone and pt had on hand a list of medications we went through together. Pt takes Symbicort as needed for SOB, her Diltiazem increased from 240mg QD to 300mg QD in the last 2 months, she uses Famotidine prn for GERD/Acid Reflux, she injects 25 units of Lantus at bedtime and uses Humalog per sliding scale TIDAC, she uses Ozempic once a week on Sundays and took it last 07/08 and pt confirmed she took all her morning medications this Am.
[2025-07-16] MEDS: Furosemide 40 MG/4 ML VIAL IVPUSH (19:12)
[2025-07-16] MEDS: Insulin Glargine,Hum.rec.anlog 100 UNIT/ML 10 ML VIAL 25 UNIT SUBCUT (20:30)
[2025-07-16] MEDS: Ferrous Sulfate 324 MG TABLET.DR PO (20:35)
[2025-07-16 20:51] LABS: Glucose, Whole Blood 302 mg/dL (60-115)
[2025-07-16] MEDS: 0.9 % Sodium Chloride Flush 3 ML SYRINGE IVFLUSH (23:42)
[2025-07-17] VITALS (14 sets, daily range): BP systolic 129–172; BP diastolic 47–90; PULSE 86–102; RESP 14–22; TEMP 36.4–36.8; O2SAT 92–98
[2025-07-17 04:28] LABS: Hematocrit 29.0 % (37.0-47.0); Hemoglobin 8.6 g/dl (12.0-16.0); Mean Corpuscular HGB Conc 29.7 g/dl (31.0-35.0); Mean Corpuscular Hemoglobin 21.6 pg (27.0-33.0); Mean Corpuscular Volume 72.7 fL (80.0-98.0); NRBC Abs Auto 0.000 X10*3/uL (0.0-0.012); NRBC Pct Auto 0.0 /100WBC (0.0-0.2); Platelet Count 286 X10*3/uL (160-400); Red Blood Count 3.99 X10*6/uL (4.20-5.50); White Blood Count 9.2 X10*3/uL (4.8-10.8)
[2025-07-17 04:45] LABS: Anion Gap 16 (12-20); Blood Urea Nitrogen 44 mg/dL (9-16); Calcium 8.8 mg/dL (8.4-10.2); Carbon Dioxide 25 mmol/L (22-29); Chloride 100 mmol/L (96-108); Creatinine Clr Calc Pharmacy 29.2; Estimated Glomerular Filt Rate 29; Magnesium 2.5 mg/dL (1.6-2.6); Potassium 4.0 mmol/L (3.3-5.1); Sodium 137 mmol/L (135-145)
[2025-07-17 07:34] LABS: Glucose, Whole Blood 320 mg/dL (60-115)
[2025-07-17] MEDS: Ferrous Sulfate 324 MG TABLET.DR PO ×3 (08:09→20:19)
[2025-07-17] MEDS: dilTIAZem HCL CD 300 MG CAP.ER.24H PO (09:43)
[2025-07-17] MEDS: 0.9 % Sodium Chloride Flush 3 ML SYRINGE IVFLUSH ×3 (09:43→20:22)
--- NOTE | 2025-07-17 09:54 | MHC.CM.PN ---
Met with pt to review d/c planning: pt resides w/spouse who is able to assist her w/care needs including transportation. Pt has no services or DME and states she is independent w/all care needs. HCP verified and in EMR; IMM signed and in chart. MD [place] [facility] No additional services anticipated.
--- NOTE | 2025-07-17 10:15 | MHC.CM.PN ---
Met with pt to review d/c planning needs: pt resides w/dtr and grandson, has no services and uses a cane on occassion. Pt states she is independent w/all care needs. Dtr to transport pt to home. HCP on file - CM to follow.
--- NOTE | 2025-07-17 11:31 | HO.PM.IMPN ---
Subjective Subjective Date of Service: 07/17/25 Interval History: still sob, desatted overnight and needed o2 Physical Exam Exam: Exam: General: AO X 3, no acute distress Resp: decreased air movement, wheezing bilateral, mild accessory muscles used CVS: S1,S2,RRR, no edema GI: soft, non tender, non distended Neuro: motor grossly intact, alert Psych: appropriate affect, appropriate insight Vital Signs: Vital Signs: Last Vital Signs Temp 97.6 F 07/17/25 05:45 Pulse 96 07/17/25 09:44 Resp 22 H 07/17/25 09:44 BP 129/53 L 07/17/25 09:44 Pulse Ox 93 07/17/25 09:44 O2 Del Method Room Air 07/17/25 09:44 O2 Flow Rate 2 07/17/25 08:13 BMI result Body Mass Index 33.2 Objective Data Active Medications Acetaminophen (Acetaminophen 325 Mg Tablet) 650 mg PO Q6H PRN PRN Reason: Pain, Mild 1-3,fever,headache Albuterol/Ipratropium (Albuterol/Iprat 2.5/0.5mg 3 Ml Ampul.Neb) 3 ml INHALE RQ4H WHILE AWAKE PRN PRN Reason: sob Apixaban (Apixaban 5 Mg Tablet) 5 mg PO BID [facility] Last Admin: 07/17/25 08:06 Dose: 5 mg Documented By: JAMARCUS Atorvastatin Calcium (Atorvastatin Calcium 80 Mg Tablet) 80 mg PO BEDTIME [facility] Last Admin: 07/16/25 20:30 Dose: 80 mg Documented By: VINH Azithromycin (Azithromycin 500 Mg Tablet) 500 mg PO Q24H [facility] Buspirone HCl (Buspirone Hcl 10 Mg Tablet) 10 mg PO BID [facility] Last Admin: 07/17/25 08:09 Dose: 10 mg Documented By: JAMARCUS Calcium Carbonate (Calcium Carbonate 750 Mg Tab.Chew) 750 mg PO Q4H PRN PRN Reason: Heartburn Carvedilol (Carvedilol 12.5 Mg Tablet) 12.5 mg PO BID [facility]; Protocol Last Admin: 07/17/25 08:06 Dose: 12.5 mg Documented By: JAMARCUS Dextrose (Dextrose 50 % 25 Gm/50 Ml Syringe) 25 gm IVPUSH Q15M PRN; Protocol PRN Reason: per Hypoglycemia Standing Ord. Diltiazem HCl (Diltiazem Hcl Cd 300 Mg Cap.Er.24h) 300 mg PO DAILY [facility]; Protocol Last Admin: 07/17/25 09:43 Dose: 300 mg Documented By: JAMARCUS Escitalopram Oxalate (Escitalopram Oxalate 5 Mg Tablet) 15 mg PO DAILY [facility] Last Admin: 07/17/25 08:06 Dose: 15 mg Documented By: JAMARCUS Famotidine (Famotidine 20 Mg Tablet) 20 mg PO DAILY PRN PRN Reason: GERD/Acid Reflux Ferrous Sulfate (Ferrous Sulfate 324 Mg Tablet.Dr) 324 mg PO TID [facility] Last Admin: 07/17/25 08:09 Dose: 324 mg Documented By: JAMARCUS Fluticasone/Vilanterol (Fluticasone/Vilanterol 200/25 Blst.W.Dev) 1 puff INHALE RDAILY [facility] Last Admin: 07/17/25 08:15 Dose: Not Given Documented By: JENNY Non-Admin Reason: pharmacy called or med Glucose (Glucose Gel 15 Gm Gel..Gram.) 15 gm PO Q15M PRN; Protocol PRN Reason: per Hypoglycemia Standing Ord. Insulin Glargine (Insulin Glargine,Hum.Rec.Anlog 100 Unit/Ml 10 Ml Vial) 25 unit SUBCUT BEDTIME [facility] Last Admin: 07/16/25 20:30 Dose: 25 unit Documented By: VINH Insulin Human Lispro (Insulin Lispro 100 Unit/Ml 3 Ml Vial) 0 unit SUBCUT QIDACHS [facility]; Protocol Last Admin: 07/17/25 08:09 Dose: 8 unit Documented By: JAMARCUS Magnesium Hydroxide (Milk Of Magnesia 30 Ml Oral.Susp) 30 ml PO DAILY PRN PRN Reason: Constipation Meclizine HCl (Meclizine Hcl 12.5 Mg Tablet) 12.5 mg PO TID PRN PRN Reason: dizziness Melatonin (Melatonin 3 Mg Tablet) 6 mg PO BEDTIME PRN PRN Reason: Insomnia Methylprednisolone Sodium Succinate (Methylprednisolone Sod Succ 40 Mg/Ml Vial) 40 mg IVPUSH Q12H [facility] Last Admin: 07/17/25 05:49 Dose: 40 mg Documented By: VINH Montelukast Sodium (Montelukast Sodium 10 Mg Tablet) 10 mg PO BEDTIME [facility] Last Admin: 07/16/25 20:30 Dose: 10 mg Documented By: VINH Omeprazole (Omeprazole 20 Mg Capsule.Dr) 20 mg PO DAILY@0630 [facility] Last Admin: 07/17/25 05:46 Dose: 20 mg Documented By: VINH Sodium Chloride (0.9 % Sodium Chloride Flush 3 Ml Syringe) 3 ml IVFLUSH QSHIFT [facility] Last Admin: 07/17/25 09:43 Dose: 3 ml Documented By: JAMARCUS Vitamin D (Cholecalciferol (Vitamin D3) 25 Mcg Tablet) 25 mcg PO DAILY [facility] Last Admin: 07/17/25 08:06 Dose: 25 mcg Documented By: JAMARCUS Labs 07/17/25 04:05 07/17/25 04:05 Labs: Laboratory Results - last 24 hr 07/16/25 07/16/25 07/16/25 14:34 14:35 14:40 MCV 74.5 L MCH 22.0 L MCHC 29.5 L RDW 17.5 H Plt Count 316 MPV 9.3 L Immature Gran % (Auto) 0.3 Neut % (Auto) 75.2 H Lymph % (Auto) 11.3 L [place] % (Auto) 7.3 Eos % (Auto) 4.9 H Baso % (Auto) 1.0 Lymph # (Auto) 1.4 [place] # (Auto) 0.9 Eos # (Auto) 0.6 H Baso # (Auto) 0.1 Abs Immat Gran (auto) 0.04 H Absolute Neuts (auto) 9.4 H Absolute Nucleated RBC 0.000 Nucleated RBC % (auto) 0.0 PT 19.9 H INR 1.6 H VBG pH 7.46 H VBG pCO2 40 VBG pO2 42 VBG HCO3 28 H VBG O2 Saturation 56.0 VBG Base Excess 4.8 Anion Gap 15 Estim Creat Clear Calc 36.3 Estimated GFR 38 POC Glucose Random Glucose 230 H Calcium 9.1 Magnesium 2.0 Total Bilirubin 0.5 AST 20 ALT 21 Alkaline Phosphatase 147 H Troponin I High Sens 10.9 NT-Pro-B Natriuret Pep 940.9 H Total Protein 7.4 Albumin 4.2 Influenza Type A (PCR) NEGATIVE Influenza Type B (PCR) NEGATIVE RSV RNA Qual (PCR) NEGATIVE SARS-CoV-2 RNA (RT-PCR) NEGATIVE 07/16/25 07/16/25 07/17/25 17:27 20:22 04:05 MCV 72.7 L MCH 21.6 L MCHC 29.7 L RDW 17.5 H Plt Count 286 MPV 9.5 Immature Gran % (Auto) Neut % (Auto) Lymph % (Auto) [place] % (Auto) Eos % (Auto) Baso % (Auto) Lymph # (Auto) [place] # (Auto) Eos # (Auto) Baso # (Auto) Abs Immat Gran (auto) Absolute Neuts (auto) Absolute Nucleated RBC 0.000 Nucleated RBC % (auto) 0.0 PT INR VBG pH VBG pCO2 VBG pO2 VBG HCO3 VBG O2 Saturation VBG Base Excess Anion Gap 16 Estim Creat Clear Calc 29.2 Estimated GFR 29 POC Glucose 302 H Random Glucose 272 H Calcium 8.8 Magnesium 2.5 Total Bilirubin AST ALT Alkaline Phosphatase Troponin I High Sens 11.1 NT-Pro-B Natriuret Pep Total Protein Albumin Influenza Type A (PCR) Influenza Type B (PCR) RSV RNA Qual (PCR) SARS-CoV-2 RNA (RT-PCR) 07/17/25 07:30 MCV MCH MCHC RDW Plt Count MPV Immature Gran % (Auto) Neut % (Auto) Lymph % (Auto) [place] % (Auto) Eos % (Auto) Baso % (Auto) Lymph # (Auto) [place] # (Auto) Eos # (Auto) Baso # (Auto) Abs Immat Gran (auto) Absolute Neuts (auto) Absolute Nucleated RBC Nucleated RBC % (auto) PT INR VBG pH VBG pCO2 VBG pO2 VBG HCO3 VBG O2 Saturation VBG Base Excess Anion Gap Estim Creat Clear Calc Estimated GFR POC Glucose 320 H Random Glucose Calcium Magnesium Total Bilirubin AST ALT Alkaline Phosphatase Troponin I High Sens NT-Pro-B Natriuret Pep Total Protein Albumin Influenza Type A (PCR) Influenza Type B (PCR) RSV RNA Qual (PCR) SARS-CoV-2 RNA (RT-PCR) Assessment and Plan (1) CAD (coronary artery disease): Status: Acute Plan 74F PMH COPD, ALYSIA, CAD, obesity, chronic diastolic CHF, diabetes, paroxysmal AFib, chronic iron-deficiency anemia, tracheal stenosis status post trachplasty presented with sob Acute ambulatory hypoxia due to COPD with acute decompensation and acute on chronic diastolic CHF IV steroids, DuoNebs, monitor electrolytes Azithromycin received iv lasix, will change back to po vincent on ckd III ?overdiuresis, monitor Paroxysmal AF Carvedilol, Cardizem, apixaban CAD Apixaban, statin Chronic iron-deficiency anemia monitor, outpatient follow up DM insulin alysia not tolerant of cpap dvt prophylaxis - eliquis reason for continued hospitalization:due to vincent and intermittent hypoxia as well as ongoing wheezing and sob, will change to inpatient and continue treatment with iv steroids, close monitoing of saturation and renal funciton Quality Stroke Does the patient have a stroke diagnosis?: No VTE Prior VTE?: No VTE Risk Level:: Medical - moderate - high VTE Device Contraindication: Treatment Not Indicated VTE Drug Contraindication: N/A - Med Ordered
[2025-07-17 12:29] LABS: Glucose, Whole Blood 236 mg/dL (60-115)
[2025-07-17 17:30] LABS: Glucose, Whole Blood 278 mg/dL (60-115)
[2025-07-17] MEDS: Albuterol/Iprat 2.5/0.5MG 3 ML AMPUL.NEB INHALE (20:38)
[2025-07-17 21:44] LABS: Glucose, Whole Blood 286 mg/dL (60-115)
[2025-07-17] MEDS: Insulin Glargine,Hum.rec.anlog 100 UNIT/ML 10 ML VIAL 25 UNIT SUBCUT (22:27)
[2025-07-18] VITALS (12 sets, daily range): BP systolic 136–174; BP diastolic 60–72; PULSE 76–86; RESP 16–20; TEMP 36.3–37.1; O2SAT 92–97
--- NOTE | 2025-07-18 | ECG_ITS ---
Test Reason : chest pain Blood Pressure : */* mmHG Vent. Rate : 91 BPM Atrial Rate : 91 BPM P-R Int : 190 ms QRS Dur : 86 ms QT Int : 390 ms P-R-T Axes : 48 38 72 degrees QTcB Int : 479 ms Normal sinus rhythm Normal ECG When compared with ECG of 16-Jul-2025 14:01, No significant change was found Referred By: Janae Presley Electronically Signed By: NELSON PLASCENCIA MD
[2025-07-18 06:50] LABS: Hematocrit 29.2 % (37.0-47.0); Hemoglobin 8.7 g/dl (12.0-16.0); Mean Corpuscular HGB Conc 29.8 g/dl (31.0-35.0); Mean Corpuscular Hemoglobin 21.9 pg (27.0-33.0); Mean Corpuscular Volume 73.4 fL (80.0-98.0); NRBC Abs Auto 0.000 X10*3/uL (0.0-0.012); NRBC Pct Auto 0.0 /100WBC (0.0-0.2); Platelet Count 325 X10*3/uL (160-400); Red Blood Count 3.98 X10*6/uL (4.20-5.50); White Blood Count 18.6 X10*3/uL (4.8-10.8)
[2025-07-18 07:07] LABS: Anion Gap 15 (12-20); Blood Urea Nitrogen 62 mg/dL (9-16); Calcium 9.1 mg/dL (8.4-10.2); Carbon Dioxide 27 mmol/L (22-29); Chloride 100 mmol/L (96-108); Creatinine Clr Calc Pharmacy 31.0; Estimated Glomerular Filt Rate 32; Magnesium 2.7 mg/dL (1.6-2.6); Potassium 4.1 mmol/L (3.3-5.1); Sodium 138 mmol/L (135-145)
[2025-07-18 07:12] LABS: Glucose, Whole Blood 213 mg/dL (60-115)
[2025-07-18] MEDS: Fluticasone/Vilanterol 200/25 BLST.W.DEV 1 PUFF INHALE (08:05)
[2025-07-18] MEDS: dilTIAZem HCL CD 300 MG CAP.ER.24H PO (09:18)
[2025-07-18] MEDS: Milk of Magnesia 30 ML ORAL.SUSP PO (09:18)
[2025-07-18] MEDS: Ferrous Sulfate 324 MG TABLET.DR PO ×3 (09:18→21:54)
--- NOTE | 2025-07-18 10:33 | PM.CNNEP ---
History of Present Illness Reason for Consult Consult date: 07/18/25 Reason for consult: Acute on chronic kidney disease Chief Complaint Chief complaint: COPD, CHF History of Present Illness Narrative: 74-year-old lady with single functioning kidney, followed by Dr. Gong in renal Clinic for CKD and proteinuria with baseline creatinine about 1- 1.4 is admitted to the hospital due to shortness of breath for which she received some IV diuretics following which her creatinine increased to 1.69. Because of this IV diuresis was held and creatinine decreased to 1.59 this morning, so nephrology is consulted. Patient is on home dose of Lasix 20 mg daily. Her PMH is also significant for COPD/ ALYSIA, CAD status post PCI, heart failure with preserved ejection fraction, atrial fibrillation, diabetes mellitus. Review of Systems Review of Systems Const : no body aches, no chills, no excessive sweating and no fatigue Eyes: no blurry vision and no change in vision ENT: no bleeding gums and no change in voice, no dizziness Card: no chest pain, no shortness of breath, no orthopnea, no PND Resp: no cough, no excessive phlegm production, no SOB GI: no abdominal pain and no nausea, no vomiting : no hematuria, no urinary frequency and no difficulty voiding Musc: no abnormal gait, no bone pain Neuro: no abnormal movements, no weakness, no dizziness, no abnormal gait and no behavioral changes Psych: no behavioral changes and no change in appetite Endo: no change in body appearance, no cold intolerance, no excessive sweating and no fatigue PMFSH Past Medical History Medical History PAD (peripheral artery disease) COPD (chronic obstructive pulmonary disease) GERD (gastroesophageal reflux disease) Diabetic neuropathy Claudication of both lower extremities 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 2 diabetes mellitus [facility] (current) use of insulin Vitamin D deficiency DM type 2 (diabetes mellitus, type 2) CAD (coronary artery disease) Non-ST elevation [place] (NSTEMI) Patellofemoral arthritis of right knee 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 Father No problems noted. Brother Substance use disorder Brother Substance use disorder Surgical History Surgical History History of carpal tunnel surgery History of cholecystectomy History of lobectomy of lung Status post tracheoplasty History of cardiac cath Social History Social History Household Members: Family Household Members Other:: 2 Housing: House Do you presently have visiting nurse or other home services: No Alcohol intake: former Comment: brinda Patient Tobacco Use Status: Former Tobacco user Tobacco use type: Cigarette Cigarettes Per Day: 10 Years Smoked: 3 stopped 1992 e-Cigarette/Vaping Use: Never Used Second Hand Smoke Exposure: Yes Advance Directives Date on File: 06/29/23 service: No Current occupational status: retired Cognitive needs: No Hearing needs: No Vision needs: No Meds Allergies Allergy/AdvReac Type Severity Reaction Status Date / Time Latex, Natural Rubber Allergy Severe blisters Verified 07/16/25 14:23 Sulfa (Sulfonamide Allergy Mild ITCHING, Verified 07/16/25 14:23 Antibiotics) (SULFA rash (SULFONAMIDE ANTIBIOTICS)) nystatin Allergy Unknown rash Verified 07/16/25 14:23 isosorbide (From Imdur) AdvReac Unknown HEADACHES, Verified 07/16/25 14:23 headache tizanidine AdvReac Unknown weakness, Verified 07/16/25 14:23 Hellucination Active Medications: Current Medications Acetaminophen (Acetaminophen 325 Mg Tablet) 650 mg PO Q6H PRN PRN Reason: Pain, Mild 1-3,fever,headache Albuterol/Ipratropium (Albuterol/Iprat 2.5/0.5mg 3 Ml Ampul.Neb) 3 ml INHALE RQ4H WHILE AWAKE PRN PRN Reason: sob Last Admin: 07/17/25 20:38 Dose: 3 ml Apixaban (Apixaban 5 Mg Tablet) 5 mg PO BID [facility] Last Admin: 07/18/25 09:18 Dose: 5 mg Atorvastatin Calcium (Atorvastatin Calcium 80 Mg Tablet) 80 mg PO BEDTIME [facility] Last Admin: 07/17/25 20:19 Dose: 80 mg Azithromycin (Azithromycin 500 Mg Tablet) 500 mg PO Q24H [facility] Last Admin: 07/17/25 17:38 Dose: 500 mg Buspirone HCl (Buspirone Hcl 10 Mg Tablet) 10 mg PO BID [facility] Last Admin: 07/18/25 09:18 Dose: 10 mg Calcium Carbonate (Calcium Carbonate 750 Mg Tab.Chew) 750 mg PO Q4H PRN PRN Reason: Heartburn Carvedilol (Carvedilol 12.5 Mg Tablet) 12.5 mg PO BID [facility]; Protocol Last Admin: 07/18/25 09:18 Dose: 12.5 mg Dextrose (Dextrose 50 % 25 Gm/50 Ml Syringe) 25 gm IVPUSH Q15M PRN; Protocol PRN Reason: per Hypoglycemia Standing Ord. Diltiazem HCl (Diltiazem Hcl Cd 300 Mg Cap.Er.24h) 300 mg PO DAILY [facility]; Protocol Last Admin: 07/18/25 09:18 Dose: 300 mg Escitalopram Oxalate (Escitalopram Oxalate 5 Mg Tablet) 15 mg PO DAILY [facility] Last Admin: 07/18/25 09:18 Dose: 15 mg Famotidine (Famotidine 20 Mg Tablet) 20 mg PO DAILY PRN PRN Reason: GERD/Acid Reflux Ferrous Sulfate (Ferrous Sulfate 324 Mg Tablet.Dr) 324 mg PO TID [facility] Last Admin: 07/18/25 09:18 Dose: 324 mg Fluticasone/Vilanterol (Fluticasone/Vilanterol 200/25 Blst.W.Dev) 1 puff INHALE RDAILY [facility] Last Admin: 07/18/25 08:05 Dose: 1 puff Furosemide (Furosemide 20 Mg Tablet) 20 mg PO DAILY [facility]; Protocol Last Admin: 07/18/25 09:18 Dose: 20 mg Glucose (Glucose Gel 15 Gm Gel..Gram.) 15 gm PO Q15M PRN; Protocol PRN Reason: per Hypoglycemia Standing Ord. Insulin Glargine (Insulin Glargine,Hum.Rec.Anlog 100 Unit/Ml 10 Ml Vial) 25 unit SUBCUT BEDTIME [facility] Last Admin: 07/17/25 22:27 Dose: 25 unit Insulin Human Lispro (Insulin Lispro 100 Unit/Ml 3 Ml Vial) 0 unit SUBCUT QIDACHS [facility]; Protocol Last Admin: 07/18/25 09:20 Dose: 4 unit Magnesium Hydroxide (Milk Of Magnesia 30 Ml Oral.Susp) 30 ml PO DAILY PRN PRN Reason: Constipation Last Admin: 07/18/25 09:18 Dose: 30 ml Meclizine HCl (Meclizine Hcl 12.5 Mg Tablet) 12.5 mg PO TID PRN PRN Reason: dizziness Melatonin (Melatonin 3 Mg Tablet) 6 mg PO BEDTIME PRN PRN Reason: Insomnia Methylprednisolone Sodium Succinate (Methylprednisolone Sod Succ 40 Mg/Ml Vial) 40 mg IVPUSH Q12H [facility] Last Admin: 07/18/25 06:22 Dose: 40 mg Montelukast Sodium (Montelukast Sodium 10 Mg Tablet) 10 mg PO BEDTIME [facility] Last Admin: 07/17/25 20:19 Dose: 10 mg Morphine Sulfate (Morphine Sulfate 4 Mg/Ml Cartridge) 2 mg IVPUSH Q4H PRN; Protocol PRN Reason: Pain, Severe (Pain Scale 7-10) Last Admin: 07/18/25 09:16 Dose: 2 mg Omeprazole (Omeprazole 20 Mg Capsule.Dr) 20 mg PO DAILY@0630 [facility] Last Admin: 07/18/25 06:24 Dose: 20 mg Sodium Chloride (0.9 % Sodium Chloride Flush 3 Ml Syringe) 3 ml IVFLUSH QSHIFT [facility] Last Admin: 07/18/25 10:06 Dose: Not Given Vitamin D (Cholecalciferol (Vitamin D3) 25 Mcg Tablet) 25 mcg PO DAILY [facility] Last Admin: 07/18/25 09:18 Dose: 25 mcg Home Medications ?Medication ?Instructions ?Recorded ?Confirmed ?Last Taken ?Type cholecalciferol (vitamin D3) 25 25 mcg PO DAILY 08/11/23 07/16/25 07/16/25 History mcg (1,000 unit) tablet albuterol sulfate 90 mcg/actuation 2 puff inhalation QID PRN 05/17/24 07/16/25 Unknown History aerosol inhaler SOB/wheezing budesonide-formoterol HFA 160 2 puff inhalation BID PRN SOB 05/17/24 07/16/25 Unknown History mcg-4.5 mcg/actuation aerosol inhaler (Symbicort) sennosides 8.6 mg-docusate sodium 2 tab PO BID PRN Constipation 11/08/24 07/16/25 Unknown History 50 mg tablet (Stimulant Laxative Plus) diltiazem HCl 300 mg 300 mg PO DAILY 07/16/25 07/16/25 07/16/25 History capsule,extended release 24 hr (Cartia XT) famotidine 20 mg tablet 20 mg PO DAILY PRN GERD/Acid Reflux 07/16/25 07/16/25 Unknown History insulin lispro 100 unit/mL 1 sliding scale dose subcut TIDAC 07/16/25 07/16/25 07/16/25 History subcutaneous pen (Humalog KwikPen (U-100) Insulin) pantoprazole 40 mg tablet,delayed 40 mg PO DAILY@0630 07/16/25 07/16/25 07/16/25 History release semaglutide 2 mg/dose (8 mg/3 mL) 2 mg subcut [id number] 07/16/25 07/16/25 07/08/25 History subcutaneous pen injector (Ozempic) Physical Exam Vital Signs: Last Vital Signs Temp 97.6 F 07/18/25 07:43 Pulse 81 07/18/25 08:07 Resp 18 07/18/25 08:07 BP 147/65 H 07/18/25 07:43 Pulse Ox 92 07/18/25 07:43 O2 Del Method Room Air 07/18/25 07:43 O2 Flow Rate 2 07/17/25 08:13 BMI result Body Mass Index 33.2 General: not in any acute distress, ill appearing Nutritional Appearance: well nourished and overweight Eyes: appearance normal, both eyes and all related structures; Alignment and Position: alignment normal and position normal Neck: No lymphadenopathy, no thyromegaly Resp: bilateral air entry equal, no added sounds present Cardio: Regular rate, regular rhythm; Heart sounds: S1 normal heart sound present and S2 normal heart sound present GI: soft, nontender, no guarding, no hepatosplenomegaly : bladder normal to inspection, bladder normal to palpation, no renal angle tenderness Skin: no rashes or lesions noted and elasticity normal Neuro: alert, oriented x 3, moves all extremities Results Lab Results 07/18/25 06:39 07/18/25 06:39 Lab results: Chemistry 07/16/25 07/17/25 07/18/25 14:34 04:05 06:39 Sodium 139 137 138 Potassium 3.9 4.0 4.1 Carbon Dioxide 27 25 27 BUN 26 H 44 H 62 H Creatinine 1.36 1.69 H 1.59 H Calcium 9.1 8.8 9.1 Hematology 07/16/25 07/17/25 07/18/25 14:34 04:05 06:39 WBC 12.5 H 9.2 18.6 H Hgb 9.9 L 8.6 L 8.7 L Plt Count 316 286 325 Assessment and Plan (1) Acute kidney injury superimposed on CKD: Status: Acute (2) Proteinuria: Status: Acute (3) Hypertension: Qualifiers: Hypertension type: primary hypertension Qualified Code(s): I10 - Essential (primary) hypertension Status: Acute Plan Acute on chronic kidney disease: Patient has single functioning left kidney with left renal artery stenosis, proteinuria secondary to diabetes mellitus at baseline. She has acute kidney injury secondary to IV diuresis; her baseline creatinine is between 1-1.4, increased to 1.69 yesterday with diuresis following which IV diuretics were appropriately transitioned to p.o. Lasix for 20 mg following which creatinine decreased to 1.59 this morning. Continue same dose of Lasix to keep the patient euvolemic. Increase in the BUN to 62 is due to IV steroids. Hypertension: Blood pressures are on the higher side Currently on carvedilol 12.5 mg b.i.d., can increase the dose to 25 mg b.i.d. Continue diltiazem 300 mg daily. Avoid JOE/ARB due to AG and single functioning left kidney with renal artery stenosis. Procedures Date of Service Date of Service: 07/18/25
[2025-07-18] MEDS: Albuterol/Iprat 2.5/0.5MG 3 ML AMPUL.NEB INHALE ×3 (11:00→22:41)
[2025-07-18 11:35] LABS: Glucose, Whole Blood 237 mg/dL (60-115)
[2025-07-18 11:36] LABS: Alanine Aminotransferase 25 U/L (0-31); Albumin Level 4.0 g/dL (3.5-5.0); Alkaline Phosphatase 116 U/L (39-117); Aspartate Amino Transferase 24 U/L (5-31); Lipase 196 U/L (8-78); Total Protein 7.0 g/dL (6.5-8.0)
[2025-07-18 15:16] LABS: Chlamydia pneumoniae PCR Not Detected (Not Detect.); Coronavirus 229E PCR Not Detected (Not Detect.); Coronavirus HKU1 PCR Not Detected (Not Detect.); Coronavirus NL63 PCR Not Detected (Not Detect.); Coronavirus OC43 PCR Not Detected (Not Detect.); RSV PCR Not Detected (Not Detect.); Rhino/Enterovirus PCR Detected (Not Detect.)
[2025-07-18 15:23] LABS: Influenza A H1 PCR Not Detected (Not Detect.); Influenza A H1-2009 PCR Not Detected (Not Detect.); Influenza A H3 PCR Not Detected (Not Detect.); SARS-CoV-2 PCR Not Detected (Not Detect.)
[2025-07-18 16:16] LABS: Glucose, Whole Blood 255 mg/dL (60-115)
--- NOTE | 2025-07-18 17:05 | HO.PM.IMPN ---
Subjective Subjective Date of Service: 07/19/25 Interval History: Rankin viral URI, AG, CHF Review of Systems Shortness of breaths seems to be improved Patient feeling generalized weak, creatinine seems the similar Physical Exam Exam: Exam: General: AO X 3, no acute distress Resp: decreased air movement, wheezing bilateral, mild accessory muscles used CVS: S1,S2,RRR, no edema GI: soft, says abd pain nonspecific , non distended,bs present Neuro: motor grossly intact, alert Psych: appropriate affect, appropriate insight Vital Signs: Vital Signs: Last Vital Signs Temp 97.4 F 07/18/25 15:10 Pulse 77 07/18/25 15:10 Resp 16 07/18/25 15:10 BP 142/65 H 07/18/25 15:10 Pulse Ox 92 07/18/25 15:10 O2 Del Method Room Air 07/18/25 15:10 O2 Flow Rate 2 07/17/25 08:13 BMI result Body Mass Index 33.2 Objective Data Active Medications Acetaminophen (Acetaminophen 325 Mg Tablet) 650 mg PO Q6H PRN PRN Reason: Pain, Mild 1-3,fever,headache Albuterol/Ipratropium (Albuterol/Iprat 2.5/0.5mg 3 Ml Ampul.Neb) 3 ml INHALE RQ4H WHILE AWAKE PRN PRN Reason: sob Last Admin: 07/18/25 11:00 Dose: 3 ml Documented By: DAY Apixaban (Apixaban 5 Mg Tablet) 5 mg PO BID [facility] Last Admin: 07/18/25 09:18 Dose: 5 mg Documented By: KRYSTIN Atorvastatin Calcium (Atorvastatin Calcium 80 Mg Tablet) 80 mg PO BEDTIME [facility] Last Admin: 07/17/25 20:19 Dose: 80 mg Documented By: RAMON Azithromycin (Azithromycin 500 Mg Tablet) 500 mg PO Q24H [facility] Last Admin: 07/18/25 16:47 Dose: 500 mg Documented By: KRYSTIN Buspirone HCl (Buspirone Hcl 10 Mg Tablet) 10 mg PO BID [facility] Last Admin: 07/18/25 09:18 Dose: 10 mg Documented By: KRYSTIN Calcium Carbonate (Calcium Carbonate 750 Mg Tab.Chew) 750 mg PO Q4H PRN PRN Reason: Heartburn Carvedilol (Carvedilol 12.5 Mg Tablet) 12.5 mg PO BID [facility]; Protocol Last Admin: 07/18/25 09:18 Dose: 12.5 mg Documented By: KRYSTIN Dextrose (Dextrose 50 % 25 Gm/50 Ml Syringe) 25 gm IVPUSH Q15M PRN; Protocol PRN Reason: per Hypoglycemia Standing Ord. Diltiazem HCl (Diltiazem Hcl Cd 300 Mg Cap.Er.24h) 300 mg PO DAILY [facility]; Protocol Last Admin: 07/18/25 09:18 Dose: 300 mg Documented By: KRYSTIN Escitalopram Oxalate (Escitalopram Oxalate 5 Mg Tablet) 15 mg PO DAILY [facility] Last Admin: 07/18/25 09:18 Dose: 15 mg Documented By: KRYSTIN Famotidine (Famotidine 20 Mg Tablet) 20 mg PO DAILY PRN PRN Reason: GERD/Acid Reflux Ferrous Sulfate (Ferrous Sulfate 324 Mg Tablet.) 324 mg PO TID [facility] Last Admin: 07/18/25 16:47 Dose: 324 mg Documented By: KRYSTIN Fluticasone/Vilanterol (Fluticasone/Vilanterol 200/25 Blst.W.Dev) 1 puff INHALE RDAILY [facility] Last Admin: 07/18/25 08:05 Dose: 1 puff Documented By: DAY Furosemide (Furosemide 20 Mg Tablet) 20 mg PO DAILY [facility]; Protocol Last Admin: 07/18/25 09:18 Dose: 20 mg Documented By: KRYSTIN Glucose (Glucose Gel 15 Gm Gel..Gram.) 15 gm PO Q15M PRN; Protocol PRN Reason: per Hypoglycemia Standing Ord. Insulin Glargine (Insulin Glargine,Hum.Rec.Anlog 100 Unit/Ml 10 Ml Vial) 25 unit SUBCUT BEDTIME [facility] Last Admin: 07/17/25 22:27 Dose: 25 unit Documented By: RAMON Insulin Human Lispro (Insulin Lispro 100 Unit/Ml 3 Ml Vial) 0 unit SUBCUT QIDACHS [facility]; Protocol Last Admin: 07/18/25 16:47 Dose: 6 unit Documented By: KRYSTIN Magnesium Hydroxide (Milk Of Magnesia 30 Ml Oral.Susp) 30 ml PO DAILY PRN PRN Reason: Constipation Last Admin: 07/18/25 09:18 Dose: 30 ml Documented By: KRYSTIN Meclizine HCl (Meclizine Hcl 12.5 Mg Tablet) 12.5 mg PO TID PRN PRN Reason: dizziness Melatonin (Melatonin 3 Mg Tablet) 6 mg PO BEDTIME PRN PRN Reason: Insomnia Methylprednisolone Sodium Succinate (Methylprednisolone Sod Succ 40 Mg/Ml Vial) 40 mg IVPUSH Q12H [facility] Last Admin: 07/18/25 16:47 Dose: 40 mg Documented By: KRYSTIN Montelukast Sodium (Montelukast Sodium 10 Mg Tablet) 10 mg PO BEDTIME [facility] Last Admin: 07/17/25 20:19 Dose: 10 mg Documented By: RAMON Morphine Sulfate (Morphine Sulfate 4 Mg/Ml Cartridge) 2 mg IVPUSH Q4H PRN; Protocol PRN Reason: Pain, Severe (Pain Scale 7-10) Last Admin: 07/18/25 13:35 Dose: 2 mg Documented By: KRYSTIN Omeprazole (Omeprazole 20 Mg Capsule.Dr) 20 mg PO DAILY@0630 [facility] Last Admin: 07/18/25 06:24 Dose: 20 mg Documented By: RAMON Sodium Chloride (0.9 % Sodium Chloride Flush 3 Ml Syringe) 3 ml IVFLUSH QSHIFT [facility] Last Admin: 07/18/25 10:06 Dose: Not Given Documented By: KRYSTIN Non-Admin Reason: Previously Administered Vitamin D (Cholecalciferol (Vitamin D3) 25 Mcg Tablet) 25 mcg PO DAILY [facility] Last Admin: 07/18/25 09:18 Dose: 25 mcg Documented By: KRYSTIN Labs 07/19/25 06:22 07/19/25 06:22 Labs: Laboratory Results - last 24 hr 07/17/25 07/17/25 07/18/25 17:25 21:40 06:39 MCV 73.4 L MCH 21.9 L MCHC 29.8 L RDW 17.6 H Plt Count 325 MPV 9.5 Absolute Nucleated RBC 0.000 Nucleated RBC % (auto) 0.0 Anion Gap 15 Estim Creat Clear Calc 31.0 Estimated GFR 32 POC Glucose 278 H 286 H Random Glucose 216 H Calcium 9.1 Magnesium 2.7 H Total Bilirubin 0.3 Direct Bilirubin 0.1 AST 24 ALT 25 Alkaline Phosphatase 116 Total Protein 7.0 Albumin 4.0 Lipase 196 H Respiratory Panel [place] Adenovirus (Rapid PCR) B.pert (TEM-PCR) B.parapertussis DNA PCR C. pneumoniae DNA (PCR) Coronavirus OC43 (PCR) Coronavirus HKU1 (PCR) Coronavirus 229E (PCR) Coronavirus NL63 (PCR) Human Metapneumovir PCR Influenza A (RT-PCR) Influenza A (H1) PCR Influ A (/) PCR Influenza A (H3) PCR Influenza B (RT-PCR) M. pneumoniae (PCR) Parainfluenza 1 (PCR) Parainfluenza 2 (PCR) Parainfluenza 3 (PCR) Parainfluenza 4 (PCR) RSV (PCR) Entero/Rhino (PCR) SARS-CoV-2 RNA (RT-PCR) 07/18/25 07/18/25 07/18/25 07:08 11:27 13:55 MCV MCH MCHC RDW Plt Count MPV Absolute Nucleated RBC Nucleated RBC % (auto) Anion Gap Estim Creat Clear Calc Estimated GFR POC Glucose 213 H 237 H Random Glucose Calcium Magnesium Total Bilirubin Direct Bilirubin AST ALT Alkaline Phosphatase Total Protein Albumin Lipase Respiratory Panel [place] See Note Adenovirus (Rapid PCR) Not Detected B.pert (TEM-PCR) Not Detected B.parapertussis DNA PCR Not Detected C. pneumoniae DNA (PCR) Not Detected Coronavirus OC43 (PCR) Not Detected Coronavirus HKU1 (PCR) Not Detected Coronavirus 229E (PCR) Not Detected Coronavirus NL63 (PCR) Not Detected Human Metapneumovir PCR Not Detected Influenza A (RT-PCR) Not Detected Influenza A (H1) PCR Not Detected Influ A (H1/) PCR Not Detected Influenza A (H3) PCR Not Detected Influenza B (RT-PCR) Not Detected M. pneumoniae (PCR) Not Detected Parainfluenza 1 (PCR) Not Detected Parainfluenza 2 (PCR) Not Detected Parainfluenza 3 (PCR) Not Detected Parainfluenza 4 (PCR) Not Detected RSV (PCR) Not Detected Entero/Rhino (PCR) Detected A SARS-CoV-2 RNA (RT-PCR) Not Detected 07/18/25 16:13 MCV MCH MCHC RDW Plt Count MPV Absolute Nucleated RBC Nucleated RBC % (auto) Anion Gap Estim Creat Clear Calc Estimated GFR POC Glucose 255 H Random Glucose Calcium Magnesium Total Bilirubin Direct Bilirubin AST ALT Alkaline Phosphatase Total Protein Albumin Lipase Respiratory Panel [place] Adenovirus (Rapid PCR) B.pert (TEM-PCR) B.parapertussis DNA PCR C. pneumoniae DNA (PCR) Coronavirus OC43 (PCR) Coronavirus HKU1 (PCR) Coronavirus 229E (PCR) Coronavirus NL63 (PCR) Human Metapneumovir PCR Influenza A (RT-PCR) Influenza A (H1) PCR Influ A (H1/09) PCR Influenza A (H3) PCR Influenza B (RT-PCR) M. pneumoniae (PCR) Parainfluenza 1 (PCR) Parainfluenza 2 (PCR) Parainfluenza 3 (PCR) Parainfluenza 4 (PCR) RSV (PCR) Entero/Rhino (PCR) SARS-CoV-2 RNA (RT-PCR) Assessment and Plan (1) CAD (coronary artery disease): Status: Acute (2) CKD stage 3 due to type 2 diabetes mellitus: Status: Acute (3) Proteinuria: Status: Acute (4) Leukocytosis: Status: Inactive Plan 74F PMH COPD, ALYSIA, CAD, obesity, chronic diastolic CHF, diabetes, paroxysmal AFib, chronic iron-deficiency anemia, tracheal stenosis status post trachplasty presented with sob Acute ambulatory hypoxia due to COPD with acute decompensation and acute on chronic diastolic CHF IV steroids, DuoNebs, monitor electrolytes Azithromycin received iv lasix, will change back to po. Leukocytosis: Possibly related to steroids Monitor closely CBC. abd pain -unclear etiology (multifactorial -?uri /constipation) check bmp ,lipase ,kub ag on ckd III ?overdiuresis, monitor Paroxysmal AF Carvedilol, Cardizem, apixaban CAD Apixaban, statin Chronic iron-deficiency anemia monitor, outpatient follow up DM insulin alysia not tolerant of cpap dvt prophylaxis - eliquis reason for continued hospitalization:due to ag and intermittent hypoxia as well as ongoing wheezing and sob, will change to inpatient and continue treatment with iv steroids, close monitoing of saturation and renal funciton Quality Stroke Does the patient have a stroke diagnosis?: No VTE Prior VTE?: No VTE Risk Level:: Medical - moderate - high VTE Device Contraindication: Treatment Not Indicated VTE Drug Contraindication: N/A - Med Ordered
[2025-07-18 20:52] LABS: Glucose, Whole Blood 326 mg/dL (60-115)
[2025-07-18] MEDS: Insulin Glargine,Hum.rec.anlog 100 UNIT/ML 10 ML VIAL 25 UNIT SUBCUT (21:55)
[2025-07-18] MEDS: 0.9 % Sodium Chloride Flush 3 ML SYRINGE IVFLUSH (21:55)
[2025-07-19 00:11] LABS: Troponin-I High Sensitivity 19.1 ng/L (<3.5-17.0)
[2025-07-19 00:23] VITALS: RESP 20
[2025-07-19 01:22] LABS: Appearance Urine Clear; Glucose Urine UA >=1000 mg/dL (Negative); PH 5.5 (5.0-9.0); Specific Gravity - Urine 1.025 (1.005-1.025); UMIC TRIGGER UA YES
[2025-07-19 01:35] LABS: Troponin-I High Sensitivity 22.4 ng/L (<3.5-17.0)
[2025-07-19 03:08] VITALS: BP 124/58; PULSE 74; RESP 16; TEMP 36.6; O2SAT 93
[2025-07-19 06:59] LABS: Hematocrit 27.6 % (37.0-47.0); Hemoglobin 8.2 g/dl (12.0-16.0); Mean Corpuscular HGB Conc 29.7 g/dl (31.0-35.0); Mean Corpuscular Hemoglobin 21.9 pg (27.0-33.0); Mean Corpuscular Volume 73.6 fL (80.0-98.0); NRBC Abs Auto 0.000 X10*3/uL (0.0-0.012); NRBC Pct Auto 0.0 /100WBC (0.0-0.2); Platelet Count 298 X10*3/uL (160-400); Red Blood Count 3.75 X10*6/uL (4.20-5.50); White Blood Count 14.6 X10*3/uL (4.8-10.8)
[2025-07-19 07:13] LABS: Glucose, Whole Blood 212 mg/dL (60-115)
[2025-07-19 07:17] LABS: Anion Gap 14 (12-20); Blood Urea Nitrogen 72 mg/dL (9-16); Calcium 8.5 mg/dL (8.4-10.2); Carbon Dioxide 27 mmol/L (22-29); Chloride 100 mmol/L (96-108); Creatinine Clr Calc Pharmacy 29.8; Estimated Glomerular Filt Rate 30; Potassium 4.3 mmol/L (3.3-5.1); Sodium 137 mmol/L (135-145)
[2025-07-19 07:24] VITALS: BP 140/60; PULSE 78; RESP 16; TEMP 36.9; O2SAT 90
[2025-07-19] MEDS: dilTIAZem HCL CD 300 MG CAP.ER.24H PO (07:41)
[2025-07-19] MEDS: Ferrous Sulfate 324 MG TABLET.DR PO ×2 (07:42→14:14)
[2025-07-19] MEDS: Fluticasone/Vilanterol 200/25 BLST.W.DEV 1 PUFF INHALE (07:52)
[2025-07-19 07:54] VITALS: PULSE 73; RESP 16; O2SAT 93
[2025-07-19 11:11] LABS: Glucose, Whole Blood 321 mg/dL (60-115)
[2025-07-19 11:19] VITALS: BP 135/87; PULSE 73; RESP 18; TEMP 36.4; O2SAT 92
--- NOTE | 2025-07-19 13:22 | MHC.CM.PN ---
Per MD, Patient is medically cleared to dc to home, with services today. Per Patient's choice, a referral has been made to [facility], who is aware of today's dc. Last IMM was addressed on 07/17/2025. Daughter will transport to home.
--- NOTE | 2025-07-19 14:14 | P.DS_ITS ---
DS: Providers Provider Date of Service: 07/19/25 Date of admission: 07/17/25 08:08 Date of discharge: 07/19/25 Primary care physician: Garland Vázquez MD Consults: 07/18/25 08:51 Consult to Nephrology Routine Consulting Provider: [facility] Reason for consultation: ag on ckd Has provider been notified: No Attending physician on discharge: Kenrick Millard Discharging clinician: Kenrick Millard DS: Diagnosis Discharge Diagnosis (1) CAD (coronary artery disease): Status: Acute DS: Summary Hospital Course Hospital Course: 74F PMH COPD, ALYSIA, obesity, CAD s/p stent, chronic diastolic CHF, diabetes, paroxysmal AFib, chronic iron-deficiency anemia, tracheal stenosis status post trachplasty presented with sob. Has been ongoing for about 2 days with productive cough with yellow sputum, positive orthopnea requiring 4 pillows at night. Denies any weight gain or edema. Reports grandson with active asthma, denies fever or chills. In ED noted to be hypoxic to high 80s on ambulation, recovered to 93 on room air at rest. Hypertensive to 164/49. Chest x-ray with platelike scarring or atelectasis in left mid lung no acute cardiopulmonary process seen. Hospital course: Patient was admitted to the hospital because of shortness of breaths/acute hypoxemic respiratory failure secondary to COPD with acute decompensation and acute on chronic diastolic CHF: Patient was started on IV Lasix nebs and steroids, antibiotics: With the above management shortness of breaths seems to be improved significantly-now at her baseline. Leukocytosis likely due to steroid use-improving. Patient was switched to p.o. steroids and Lasix, continue home COPD medications. Acute on chronic CHF: mild elevated trops multifactorial ( chf,ag), ekg seems fine.patient denies any chest pain or sob patient improved with iv Diuretics , has AG on CKD possible secondary to over- diuresis: Patient Lasix switched to 20 mg daily, monitor BMP outpatient. Hypertension-blood pressure fluctuating, Monitor blood pressure closely out patiently if blood pressure stays uncontrolled consider adjusting Coreg to 25 mg b.i.d. Abdominal pain: Seems to be likely due to constipation and also has rhino/entrivirus uri and cough. KUB shows significant stool burden,Patient abdominal pain seems to be improved with enema: Past bowels feels much better. Added Colace and MiraLax upon discharge. Avoid medications that cause constipation including opioids. Monitor CBC, BMP out patiently in 1 week: Follow-up with PCP and Nephrology ou tpatient. Patient will be going home with VNA. plan: Monitor CBC BMP as above. htn -blood pressure fluctuating, Monitor blood pressure closely out patiently if blood pressure stays uncontrolled consider adjusting Coreg to 25 mg b.i.d. Prednisone 40 mg for 4 days, azithromycin 250 mg daily for 2 more days. Lasix 20 mg daily CHF education given-if gains weight 2 lb or more in a week-will need outpatient Lasix dosing assessment with PCP. Follow-up with PCP and Nephrology, Consider Follow-up with cardiology outpatient. Above management discussed with the patient and her daughter in detail length they both understand and in agreement with the above plan, time spent 50 minute. Time Attestation Total time managing care of this patient today: 50 mintues. Discharge Coordination Time (in mins): 50 min Quality: Safe Use of Opioids Does Pt have an Active Cancer Diagnosis on the Problem List?: No Quality: Stroke Does the patient have a stroke diagnosis?: No Physical Exam Exam: Exam: General: AO X 3, no acute distress Resp: Air entry fair, no rales or wheezing CVS: S1,S2,RRR, no edema GI: soft, nt , non distended,bs present Neuro: motor grossly intact, alert Psych: appropriate affect, appropriate insight Vital Signs: Vital Signs: Last Vital Signs Temp 97.6 F 07/19/25 11:19 Pulse 73 07/19/25 11:19 Resp 18 07/19/25 11:19 BP 135/87 07/19/25 11:19 Pulse Ox 92 07/19/25 11:19 O2 Del Method Room Air 07/19/25 11:19 O2 Flow Rate 2 07/17/25 08:13 BMI result Body Mass Index 33.2 DS: Data Data Completed and Pending Completed studies during hospitalization [Text1]: Procedures Assistance with Respiratory Ventilation, Less than 24 Consecutive Hours, Continuous Positive Airway Pressure (05/26/24) Excision of Lower Esophagus, Via Natural or Artificial Opening Endoscopic, Diagnostic (11/28/23) Excision of Stomach, Pylorus, Via Natural or Artificial Opening Endoscopic, Diagnostic (11/28/23) Transfusion of Nonautologous Red Blood Cells into Peripheral Vein, Percutaneous Approach (11/28/23) Labs on day of discharge: Laboratory Results - last 24 hr 07/18/25 07/18/25 07/18/25 13:55 16:13 20:43 WBC RBC Hgb Hct MCV MCH MCHC RDW Plt Count MPV Absolute Nucleated RBC Nucleated RBC % (auto) Hold Purple Top Sodium Potassium Chloride Carbon Dioxide Anion Gap BUN Creatinine Estim Creat Clear Calc Estimated GFR POC Glucose 255 H 326 H Random Glucose Calcium Troponin I High Sens Urine Color Urine Appearance Urine pH Ur Specific [place] Urine Protein Urine Glucose (UA) Urine Ketones Urine Blood Urine Nitrite Ur Leukocyte Esterase Urine RBC Urine WBC Ur Squamous Epith Cells Urine Bacteria Hyaline Casts Respiratory Panel [place] See Note Adenovirus (Rapid PCR) Not Detected B.pert (TEM-PCR) Not Detected B.parapertussis DNA PCR Not Detected C. pneumoniae DNA (PCR) Not Detected Coronavirus OC43 (PCR) Not Detected Coronavirus HKU1 (PCR) Not Detected Coronavirus 229E (PCR) Not Detected Coronavirus NL63 (PCR) Not Detected Human Metapneumovir PCR Not Detected Influenza A (RT-PCR) Not Detected Influenza A (H1) PCR Not Detected Influ A (H1/09) PCR Not Detected Influenza A (H3) PCR Not Detected Influenza B (RT-PCR) Not Detected M. pneumoniae (PCR) Not Detected Parainfluenza 1 (PCR) Not Detected Parainfluenza 2 (PCR) Not Detected Parainfluenza 3 (PCR) Not Detected Parainfluenza 4 (PCR) Not Detected RSV (PCR) Not Detected Entero/Rhino (PCR) Detected A SARS-CoV-2 RNA (RT-PCR) Not Detected 07/18/25 07/18/25 07/19/25 22:39 22:42 01:02 WBC RBC Hgb Hct MCV MCH MCHC RDW Plt Count MPV Absolute Nucleated RBC Nucleated RBC % (auto) Hold Purple Top SEE NOTE Sodium Potassium Chloride Carbon Dioxide Anion Gap BUN Creatinine Estim Creat Clear Calc Estimated GFR POC Glucose Random Glucose Calcium Troponin I High Sens 19.1 H D Urine Color Yellow Urine Appearance Clear Urine pH 5.5 Ur Specific [place] 1.025 Urine Protein Trace Urine Glucose (UA) >=1000 H Urine Ketones Negative Urine Blood Negative Urine Nitrite Negative Ur Leukocyte Esterase Negative Urine RBC 0-2 Urine WBC 0-5 Ur Squamous Epith Cells 0-2 Urine Bacteria None Seen Hyaline Casts 0-2 Respiratory Panel [place] Adenovirus (Rapid PCR) B.pert (TEM-PCR) B.parapertussis DNA PCR C. pneumoniae DNA (PCR) Coronavirus OC43 (PCR) Coronavirus HKU1 (PCR) Coronavirus 229E (PCR) Coronavirus NL63 (PCR) Human Metapneumovir PCR Influenza A (RT-PCR) Influenza A (H1) PCR Influ A () PCR Influenza A (H3) PCR Influenza B (RT-PCR) M. pneumoniae (PCR) Parainfluenza 1 (PCR) Parainfluenza 2 (PCR) Parainfluenza 3 (PCR) Parainfluenza 4 (PCR) RSV (PCR) Entero/Rhino (PCR) SARS-CoV-2 RNA (RT-PCR) 07/19/25 07/19/25 07/19/25 01:07 06:22 07:06 WBC 14.6 H RBC 3.75 L Hgb 8.2 L Hct 27.6 L MCV 73.6 L MCH 21.9 L MCHC 29.7 L RDW 17.7 H Plt Count 298 MPV 9.8 Absolute Nucleated RBC 0.000 Nucleated RBC % (auto) 0.0 Hold Purple Top Sodium 137 Potassium 4.3 Chloride 100 Carbon Dioxide 27 Anion Gap 14 BUN 72 H Creatinine 1.66 H Estim Creat Clear Calc 29.8 Estimated GFR 30 POC Glucose 212 H Random Glucose 212 H Calcium 8.5 D Troponin I High Sens 22.4 H Urine Color Urine Appearance Urine pH Ur Specific [place] Urine Protein Urine Glucose (UA) Urine Ketones Urine Blood Urine Nitrite Ur Leukocyte Esterase Urine RBC Urine WBC Ur Squamous Epith Cells Urine Bacteria Hyaline Casts Respiratory Panel [place] Adenovirus (Rapid PCR) B.pert (TEM-PCR) B.parapertussis DNA PCR C. pneumoniae DNA (PCR) Coronavirus OC43 (PCR) Coronavirus HKU1 (PCR) Coronavirus 229E (PCR) Coronavirus NL63 (PCR) Human Metapneumovir PCR Influenza A (RT-PCR) Influenza A (H1) PCR Influ A () PCR Influenza A (H3) PCR Influenza B (RT-PCR) M. pneumoniae (PCR) Parainfluenza 1 (PCR) Parainfluenza 2 (PCR) Parainfluenza 3 (PCR) Parainfluenza 4 (PCR) RSV (PCR) Entero/Rhino (PCR) SARS-CoV-2 RNA (RT-PCR) 07/19/25 11:03 WBC RBC Hgb Hct MCV MCH MCHC RDW Plt Count MPV Absolute Nucleated RBC Nucleated RBC % (auto) Hold Purple Top Sodium Potassium Chloride Carbon Dioxide Anion Gap BUN Creatinine Estim Creat Clear Calc Estimated GFR POC Glucose 321 H Random Glucose Calcium Troponin I High Sens Urine Color Urine Appearance Urine pH Ur Specific [place] Urine Protein Urine Glucose (UA) Urine Ketones Urine Blood Urine Nitrite Ur Leukocyte Esterase Urine RBC Urine WBC Ur Squamous Epith Cells Urine Bacteria Hyaline Casts Respiratory Panel [place] Adenovirus (Rapid PCR) B.pert (TEM-PCR) B.parapertussis DNA PCR C. pneumoniae DNA (PCR) Coronavirus OC43 (PCR) Coronavirus HKU1 (PCR) Coronavirus 229E (PCR) Coronavirus NL63 (PCR) Human Metapneumovir PCR Influenza A (RT-PCR) Influenza A (H1) PCR Influ A (H1/09) PCR Influenza A (H3) PCR Influenza B (RT-PCR) M. pneumoniae (PCR) Parainfluenza 1 (PCR) Parainfluenza 2 (PCR) Parainfluenza 3 (PCR) Parainfluenza 4 (PCR) RSV (PCR) Entero/Rhino (PCR) SARS-CoV-2 RNA (RT-PCR) Imaging Chest x-ray: Radiologist's impression: ITS Impressions Chest X-Ray 07/16/25 14:45 IMPRESSION: There is platelike scarring or atelectasis left midlung. No acute cardiopulmonary process seen. There is mild levoscoliosis mid dorsal spine with spondylosis. Chest CT 07/17/25 09:16 IMPRESSION: There are chronic changes with multiple healed rib fractures and areas of pleural thickening and pleural calcification that may be posttraumatic in nature. The appearance is stable compared to the study performed one year ago. Fleischner guidelines were followed. Discharge Plan Discharge Anticipated Discharge Date/Time: 07/19/25 14:03 Patient Disposition: Home Health Service Discharge Diagnosis: ag on ckd ,Acute ambulatory hypoxia due to COPD with acute decompensation and acute on chronic diastolic CHF Referrals: Enmanuel KESSLER [Outside] - 1 Week Po,Garland Sahu MD [Primary Care Provider, Internal Medicine] - 1 Week Discharge Medications: New prednisone 20 mg Tablet 40 mg PO DAILY Qty: 8 0RF azithromycin 500 mg Tablet 250 mg PO Q24H Qty: 1 0RF docusate sodium [Colace] 100 mg capsule 100 mg PO BID PRN (Reason: constipation) Qty: 60 0RF polyethylene glycol 3350 [Miralax] 17 gram/dose powder 17 g PO BID PRN (Reason: constipation) Qty: 238 0RF dicyclomine 10 mg Capsule 10 mg PO BID PRN (Reason: abd pain) Qty: 20 0RF Continued (DME) compr.stocking,thigh,reg,large Misc See Rx Instructions .Route Qty: 2 3RF Rx Instructions: Thigh High compression stockings 10-20mmHg (DME) blood-glucose meter [Thoughtful MoversTouch Verio Flex meter] Misc See Rx Instructions .Route Qty: 1 0RF Rx Instructions: As directed buspirone 10 mg tablet 10 mg PO BID Qty: 180 1RF Jardiance 25 mg tablet 25 mg PO DAILY Qty: 90 3RF furosemide 20 mg tablet 20 mg PO DAILY Qty: 90 3RF Eliquis 5 mg tablet 5 mg PO BID Qty: 180 3RF citalopram 20 mg tablet 30 mg PO DAILY Qty: 135 3RF montelukast 10 mg tablet 10 mg PO BEDTIME Qty: 90 3RF atorvastatin 80 mg tablet 80 mg PO BEDTIME Qty: 90 0RF carvedilol 12.5 mg tablet 12.5 mg PO BID 90 Days Qty: 180 3RF Rx Instructions: must administer with a meal/food (DME) walker Misc See Rx Instructions .Route Qty: 1 0RF Rx Instructions: As directed cholecalciferol (vitamin D3) 25 mcg (1,000 unit) Tablet 25 mcg PO DAILY acetaminophen 325 mg Tablet 650 mg PO Q6H PRN (Reason: pain) Qty: 30 0RF albuterol sulfate 90 mcg/actuation Hfa Aerosol Inhaler 2 puff INHALATION QID PRN (Reason: SOB/wheezing) budesonide-formoterol [Symbicort] 160-4.5 mcg/actuation HFA aerosol inhaler 2 puff INHALATION BID PRN (Reason: SOB) diltiazem HCl [Cartia XT] 300 mg capsule,extended release 24hr 300 mg PO DAILY pantoprazole 40 mg tablet,delayed release (DR/EC) 40 mg PO DAILY@0630 famotidine 20 mg tablet 20 mg PO DAILY PRN (Reason: GERD/Acid Reflux) insulin lispro [Humalog KwikPen Insulin] 100 unit/mL insulin pen 1 sliding scale dose SUBCUT TIDAC Rx Instructions: <100 no Humalog, 100-150 6 units, 150-200 10 units, >200 14 units, before each meal, TID Ozempic 2 mg/dose (8 mg/3 mL) pen injector 2 mg subcut [id number] meclizine 12.5 mg tablet 12.5 mg PO TID PRN (Reason: dizziness) Qty: 14 1RF nitroglycerin 0.3 mg tablet, sublingual 0.3 mg sublingual Q5M PRN (Reason: chest pain) Qty: 20 0RF Rx Instructions: Place 1 (ONE) tablet under the tongue at onset of chest pain; repeat every 5 minutes if pain persists; may administer up to 3 tablets in a 15-minute period. ferrous sulfate 325 mg (65 mg iron) tablet 325 mg PO TID Qty: 100 1RF (DME) FreeStyle Kelly 3 Plus Sensor Device See Rx Instructions .ROUTE .MEDSUPPLY Qty: 2 11RF Rx Instructions: Apply 1 new sensor every 15 days as directed to monitor blood glucose continuously. insulin glargine [Lantus Solostar U-100 Insulin] 100 unit/mL (3 mL) insulin pen 25 unit subcut BEDTIME Qty: 15 3RF (DME) lancets [OneTouch Delica Plus Lancet] 30 gauge misc See Rx Instructions .Route Qty: 100 11RF Rx Instructions: Test blood sugar 3 times per day (DME) OneTouch Verio test strips Strip See Rx Instructions .Route Qty: 100 11RF Rx Instructions: Test blood sugar 3 times per day glucose [Dex4 Glucose Quick Dissolve] 4 gram tablet,chewable 16 g PO Q15M PRN (Reason: hypoglycemia (blood sugar under 70)) Qty: 30 3RF Rx Instructions: until symptoms of low blood sugar are controlled Discontinued sennosides-docusate sodium [Stimulant Laxative Plus] 8.6-50 mg tablet 2 tab PO BID PRN (Reason: Constipation) Discharge Orders: Discharge Order (Routine); Ordered 07/19/25 Ordered By: Kenrick Millard Diet: Advance to usual diet Activity on Discharge: As tolerated Stand Alone Forms: Patient Portal Discharge page Print Language: Nepali Other Ambulatory Orders: Basic Metabolic Panel (Routine) Timeframe: 1 Week Facility: [facility] - Location: Laboratory Ordered By: Kenrick Millard Complete Blood Count no Diff (Routine) Timeframe: 1 Week Facility: [facility] - Location: Laboratory Ordered By: Kenrick Millard Care Plan Goals: as below. Health Concerns: Monitor CBC BMP as above. Prednisone 40 mg for 4 days azithromycin 250 mg po qdaily x2 more days. Added Colace and MiraLax-due to constipation, hold for diarrhea. Lasix 20 mg daily CHF education given-if gains weight 2 lb or more in a week-will need outpatient Lasix dosing assessment with PCP. Consider Follow-up with cardiology outpatient Follow-up with PCP and Nephrology Plan of Treatment: As above. Assessment: As above. Patient Instructions: Heart Failure (DC), Acute Kidney Injury (DC) Discharge Date/Time: 07/19/25 15:19
--- NOTE | 2025-07-19 14:32 | W.MHC.F2F ---
Service Date Service Date: 07/19/25 Encounter Date of encounter: 07/19/25 Encounter: AG, COPD, CHF Reasons for Services Signs and symptoms assessed: New shortness of breath or chest pain or leg swelling or any new symptoms Reason for correction: CV/CP assess and/or care, diabetic teaching, monitoring of unstable blood sugar, medication management, medication treatment and teach disease management MD Overseeing Care: Garland Vázquez Homebound: Leaving the home is medically contraindicated at this time without the asist of a device and/or another person due th the listed conditions above and below. Reason homebound: weakness related to hospital stay Homebound supporting statement: Patient is generalised weak post hospitlisation and need help with going to appointments and labs draws and medical management. Certification: Based on the above findings, I certify that this patient is confined to the home and needs intermittent correction care, physical therapy and/or speech therapy, or continues to need occupational therapy. The patient is under my care, and I have initiated the establishment of the plan of care. The patient will be followed by a physician who will periodically review the plan of care. Time Spent With Patient Time: Total time managing care of this patient today ____ minutes.
== END 2025-07-19 15:19 | disposition home health service (06) | DRG 190 ==
LOC: HO.ED 17:13 → HO.EDOVER 17:44 → HO.IMC 07-17 15:10
PROVIDERS: Internal Medicine; Internal Medicine Critical Care Medicine; Physician Assistant Medical; Admitting Provider Internal Medicine; Emergency Provider Emergency Medicine; PCP Internal Medicine; Visit Provider Internal Medicine
DX: J44.1 Chronic obstructive pulmonary disease with (acute) exacerbation (principal); I50.33 Acute on chronic diastolic (congestive) heart failure; I13.0 Hypertensive heart and chronic kidney disease with heart failure and stage 1 through stage 4 chronic kidney disease, or unspecified chronic kidney disease; I25.10 Atherosclerotic heart disease of native coronary artery without angina pectoris; N18.30 Chronic kidney disease, stage 3 unspecified; M17.9 Osteoarthritis of knee, unspecified; E11.22 Type 2 diabetes mellitus with diabetic chronic kidney disease; G47.33 Obstructive sleep apnea (adult) (pediatric); K59.00 Constipation, unspecified; B97.89 Other viral agents as the cause of diseases classified elsewhere; B97.10 Unspecified enterovirus as the cause of diseases classified elsewhere; I70.1 Atherosclerosis of renal artery; D50.9 Iron deficiency anemia, unspecified; Z20.822 Contact with and (suspected) exposure to COVID-19; Z86.711 Personal history of pulmonary embolism; Z79.4 Long term (current) use of insulin; Z79.01 Long term (current) use of anticoagulants; Z79.899 Other long term (current) drug therapy
CPT/HCPCS: 36415; 71046; 71250; 74018; 80048; 80053; 80076; 81001; 82803; 82947; 83690; 83735; 83880; 84484; 85025; 85027; 85610; 87633; 87637; 93005; 94640; 94660; 99285; J0456; J1938; J2270; J2405; J2919; J3475

== ENCOUNTER → 2025-07-16 13:55 | Outpatient (BNV) | payer MEDICARE, SELFPAY | PROVIDERS: Admitting Provider Internal Medicine; Emergency Provider Emergency Medicine; PCP Internal Medicine; Visit Provider Internal Medicine Cardiovascular Disease | DX: R94.31 Abnormal electrocardiogram [ECG] [EKG] (principal); R07.9 Chest pain, unspecified | CPT/HCPCS: 93010 ==

== ENCOUNTER → 2025-07-16 14:23 | Outpatient (BNV) | payer MEDICARE, SELFPAY | PROVIDERS: Emergency Provider Emergency Medicine; Visit Provider Radiology Diagnostic Radiology | DX: R07.9 Chest pain, unspecified (principal); R06.02 Shortness of breath; M47.814 Spondylosis without myelopathy or radiculopathy, thoracic region | CPT/HCPCS: 71046 ==

== ENCOUNTER → 2025-07-16 16:37 | Outpatient (BNV) | payer MEDICARE, SELFPAY | PROVIDERS: Emergency Provider Emergency Medicine; PCP Internal Medicine; Visit Provider Internal Medicine | DX: I25.119 Atherosclerotic heart disease of native coronary artery with unspecified angina pectoris (principal) | CPT/HCPCS: 99233 ==

== ENCOUNTER 2025-07-17 08:08 | Outpatient (BNV) | payer MEDICARE, SELFPAY | END 2025-07-17 09:16 | PROVIDERS: Admitting Provider Internal Medicine; Emergency Provider Emergency Medicine; PCP Internal Medicine; Visit Provider Radiology Diagnostic Radiology | DX: R09.02 Hypoxemia (principal) | CPT/HCPCS: 71250 ==

== ENCOUNTER 2025-07-17 08:08 | Outpatient (BNV) | payer MEDICARE, SELFPAY | END 2025-07-18 22:26 | PROVIDERS: Admitting Provider Internal Medicine; Emergency Provider Emergency Medicine; PCP Internal Medicine; Visit Provider Internal Medicine Cardiovascular Disease | DX: R94.31 Abnormal electrocardiogram [ECG] [EKG] (principal); R06.02 Shortness of breath | CPT/HCPCS: 93010 ==

== ENCOUNTER 2025-07-17 08:08 | Outpatient (BNV) | payer MEDICARE, SELFPAY | END 2025-07-18 18:48 | PROVIDERS: Admitting Provider Internal Medicine; Emergency Provider Emergency Medicine; PCP Internal Medicine; Visit Provider Student in an Organized Health Care Education/Training Program | DX: K59.00 Constipation, unspecified (principal) | CPT/HCPCS: 74018 ==

== ENCOUNTER → 2025-07-17 08:08 | Outpatient (BNV) | payer MEDICARE, SELFPAY | PROVIDERS: Admitting Provider Internal Medicine; Emergency Provider Emergency Medicine; PCP Internal Medicine; Visit Provider Internal Medicine Critical Care Medicine | DX: I12.9 Hypertensive chronic kidney disease with stage 1 through stage 4 chronic kidney disease, or unspecified chronic kidney disease (principal); N17.9 Acute kidney failure, unspecified; N18.9 Chronic kidney disease, unspecified; R80.9 Proteinuria, unspecified | CPT/HCPCS: 99222 ==

== ENCOUNTER 2025-07-20 11:05 | Inpatient (IN) | payer MEDICARE, SELFPAY ==
--- OUTSIDE RECORDS SUMMARY | 2024-09-12 11:00 | XMS_ITS ---
[facility] Organization [facility] Address [address] [place] [address] Care Team Providers Care Vessel Captain Name Role Phone Cali GUZMAN, Amanda Primary Care Provider Carol Senior [phone] Encounters Encounter Location Date Provider Diagnosis [facility] [address] [place] [address] 09/12/2024 Carol Ayon Plan Of Treatment No Information Progress Notes * Saima CUELLAR ADOB:1950 (74 yo F)Acc No.[id number]:09/12/2024 Progress Note Patient: Saima DIAS Provider: Collin Ayon DPM :1950 A ge:73 Y S ex:Female Date:09/12/2024 Address:[address] [place], [place] [id number] Pcp:Amanda Leiva MD Subjective: * Chief Complaints: * * Medical History: Objective: * Vitals: Assessment: Plan: * Treatment: * Images: * The named appointment provid er may or may not be the originator of this progress note, and it is not deemed complete until electronically signed by the appointment provider. Sign off status: Pending * Provider: Collin Ayon DPM Date: 0 09/12/2024 Generated for Eliasi efrain/[place]/eTransmitting on: 09/19/2024 05:37 PM EST
--- OUTSIDE RECORDS SUMMARY | 2024-11-08 08:30 | XMS_ITS ---
Author Organization [facility] Address [address] [place] [address] Care Team Providers Care Supply Cataloguer Name Role Phone Amanda Leiva MD Primary Care Provider Carol Senior Unavailable [phone] Allergies Allergen (clinical drug ingredient) Drug/Non Drug Allergy documented on EMR Reaction Allergy Type Onset Date Status sulfamethoxazole / trimethoprim Bactrim Unknown Drug Allergy Active nystatin Nystatin Unknown Drug Allergy Active Adhesive Unknown Allergy Active Latex Latex Unknown Allergy Active Medications Medication SIG (Take, Route, Frequency, Duration) Notes Start Date End Date Status Ciclopirox Olamine 0.77 % 1 application Externally Twice a day to skin of feet including between the toes; Duration: 30 days Active Vitamin C Active Ozempic (2 MG/DOSE) Active HumaLOG Active Lantus Active Vitamin D Active dilTIAZem HCl Active Montelukast Sodium A ctive Iron Active eliquis Active Citalopram Hydrobromide Active Famotidine Active Carvedilol Active Atorvastatin Calcium Active Lisinopril Active Pantoprazole Sodium Active Clopidogrel Bisulfate Active busPIRone HCl Active Symbicort Active Jardiance Active Encounters Encounter Location Date Provider Diagnosis [facility] [address] [place] [address] 11/08/2024 Carol Ayon Plan Of Treatment No Information Progress Notes * Saima CUELLAR ADOB:1950 (74 yo F)Acc No.[id number]:11/08/2024 Progress Note Patient: Collin Saima OLIVARES Provider: Collin Ayon DPM :1950 A ge:74 Y S ex:Female Date:11/08/2024 Address:[address] [place], [place] [id number] Pcp:Amanda Leiva MD Subjective: * Chief Complaints: * * HPI: A t Risk footcare: Pt States Last PCP Visit: D ate 1 * Medical History: A ngina, Cataracts, Covid-19, Depression, Diabetic, Fibromyalgia, Gall bladder problems, Heart disease, High blood pressure, Kidney disease, Lung disease, Reflux ( GERD), Measles, Chicken pox, Transfusions. * Medications: T aking Lantus , Taking HumaLOG , Taking Ozempic (2 MG/DOSE) , Taking Symbicort , Taking busPIRone HCl , Taking Clopidogrel Bisulfate , Taking Pantoprazole Sodium , Taking Jardiance , Taking Famotidine , Taking Citalopram Hydrobromide , Taking Lisinopril , Taking Atorvastatin Calcium , Taking Carvedilol , Taking eliquis , Taking Montelukast Sodium , Taking dilTIAZem HCl , Taking Vitamin D , Taking Iron , Taking Vitamin C , Taking Ciclopirox Olamine 0.77 % Cream 1 application Externally Twice a day to skin of feet including between the toes * Allergies: B actrim, Adhesive, Latex, Nystatin. Objective: * Vitals: Assessment: Plan: * Treatment: * Images: * The named appointment provid er may or may not be the originator of this progress note, and it is not deemed complete until electronically signed by the appointment provider. Sign off status: Pending * Provider: Collin Ayon DPM Date: 0 11/08/2024 Generated for Enzo zuniga/[place]/Levonitting on: 1 09/19/2024 05:39 PM EST History and Physical Notes * HPI (History of Present Illness) Category Sub-Category Detail Notes Category Not es At Risk footcare Pt States Last PCP Visit: Date: 4
[2025-07-20] VITALS (11 sets, daily range): BP systolic 125–170; BP diastolic 46–61; PULSE 64–85; RESP 15–24; TEMP 36.1–36.9; O2SAT 93–98; BMI 32.6; BMI 34.1; BMI 34.3
--- NOTE | 2025-07-20 | ECG_ITS ---
Test Reason : SOB Blood Pressure : */* mmHG Vent. Rate : 63 BPM Atrial Rate : 63 BPM P-R Int : 182 ms QRS Dur : 86 ms QT Int : 428 ms P-R-T Axes : 41 48 93 degrees QTcB Int : 437 ms Normal sinus rhythm Nonspecific T wave abnormality Abnormal ECG When compared with ECG of 18-Jul-2025 22:26, No significant change was found Referred By: Donnell Rincon Electronically Signed By: NELSON PLASCENCIA MD
--- NOTE | ~2025-07-20 | XR_ITS ---
CLINICAL HISTORY: HYPOXIA 1 view chest x-ray. Comparison: CR - XR CHEST 1V - 08/03/25 01:31 EST Findings: Stable lung volumes. Slight worsening pleural-parenchymal disease right lung base. Persistent airspace disease left lower lobe. No pneumothorax. Heart size normal. No midline shift or tracheal deviation. No acute fracture. Post ACDF cervical vertebra. Impression: 1. Slight progression of the pleural-parenchymal disease right lower lobe. Stable pleural-parenchymal disease left base. This is either pneumonic or cardiogenic. This document has been electronically signed by: Shaun Juarez MD on 08/04/2025 09:30:12
--- NOTE | ~2025-07-20 | CT_ITS ---
CLINICAL HISTORY: worsening pneumonia CT chest without contrast Comparison: CR - XR CHEST 1V - 08/04/25 08:[address]/REG/SR - THORAX CHEST_WITHOUT (ADULT) - 08/02/25 09:46 EST Findings: Normal heart size. No pericardial effusion. Few prominent mediastinal lymph nodes the largest is in the right infrahilar region measuring 1.4 cm, favored to be reactive. Severe aortic and coronary atherosclerosis. No aneurysm. Worsening bilateral consolidations and nodular opacities worst in the right lower lobe. There is relative sparing of the left upper lobe. Trace right pleural effusion. No pneumothorax. Cholecystectomy. Atrophic pancreas. No acute findings in the visualized upper abdomen. Chronic right rib deformities. Degenerative changes of the spine. No acute fracture. IMPRESSION: 1. Worsening bilateral pulmonary consolidations and nodular opacities, most prominent in the right lower lobe. 2. Trace right pleural effusion. This document has been electronically signed by: Neal Marsh MD on 08/05/2025 15:52:33
--- NOTE | ~2025-07-20 | XR_ITS ---
EXAMINATION: XR ABDOMEN KUB CLINICAL INDICATION: NG tube placement COMPARISON: Correlation made with CT abdomen and pelvis 07/24/2025. TECHNIQUE: AP view of the abdomen. FINDINGS: Study is limited by patient morbid obesity. An NG tube is partially visualized within the stomach. This appears well-positioned. There are cholecystectomy clips. There are no abnormally dilated loops of bowel. Lung bases were excluded from the exam. There is a temperature probe within the rectum. There are degenerative changes of the spine. There are arthritic changes of the SI joints, possibly inflammatory. There are mild degenerative changes of both hip joints. No suspicious bone lesions. XR/XR KUB IMPRESSION: 1. Limited exam. 2. NG tube in good position. 3. No abnormally dilated loops of bowel. Electronically signed by: Bret Perez MD 08/07/2025 05:17 PM WAQAR
--- NOTE | ~2025-07-20 | CT_ITS ---
CLINICAL HISTORY: Pneumonia CT chest without contrast Comparison: None provided Findings: The heart size is normal. Subcentimeter hypodense left thyroid lobe nodule. A few prominent to mildly prominent mediastinal nodes may be reactive in nature. Small amount of oral contrast noted in the nondistended thoracic esophagus. Query GE reflux. Opacification of the majority of the right lower lobe. Subsegmental right middle lobe opacity. Additional multilobar (with exception of left upper lobe) patchy and partially peribronchovascular opacities. Cholecystectomy. Colonic diverticulosis without diverticulitis noted in the upper abdomen. Lower cervical spine incompletely evaluated hardware. Old left rib fractures. No acute fracture. Incompletely evaluated stranding of the posterolateral aspects of the lower thoracic level may be due to scarring or nonspecific edema.. IMPRESSION: 1. Multilobar bilateral bronchopneumonia with superimposed right lower lobe likely aspiration pneumonia. 2. Small amount of oral contrast noted in the nondistended thoracic esophagus. Query GE reflux. This document has been electronically signed by: Dia Hogan MD on 08/02/2025 11:02:28
--- NOTE | ~2025-07-20 | XR_ITS ---
EXAMINATION: XR CHEST CLINICAL INFORMATION: ETT and OGT placement COMPARISON: 08/04/2025 chest radiograph. 08/05/2025 CT chest. TECHNIQUE: Frontal view of the chest was obtained. FINDINGS: ET tube is present, terminating approximately 3 cm above the brenda, in good position. OG tube is in place, with tip and sidehole subdiaphragmatic, well-positioned. Cardiac silhouette is obscured. The mediastinal silhouettes demonstrate aortic mural calcifications. Vascular congestion in the hilar regions. Surgical clips abutting the left hilum with surgical staple line seen. Multifocal opacities again present with more dense consolidative changes right greater than left lower lungs, with associated layering small effusions, essentially unchanged from 08/04/2025. Findings are consistent with multifocal pneumonia. There is no perceptible pneumothorax. No focal osseous or soft tissue abnormality. Incompletely a imaged cervical fusion device. Degenerative changes with mild scoliosis of the thoracolumbar spine. XR/XR chest 1V IMPRESSION: 1. Well-positioned ET tube and OG tube. 2. Multifocal pneumonia, unchanged. Small bilateral effusions. Electronically signed by: Bret Perez MD 08/06/2025 04:14 PM EST
--- NOTE | ~2025-07-20 | XR_ITS ---
EXAMINATION: XR CHEST CLINICAL INFORMATION: sob COMPARISON: July 16, 2025 TECHNIQUE: Frontal view of the chest was obtained. FINDINGS: Haziness in the left lower hemithorax and prominence of the interstitial lung markings. Pulmonary reticular pattern. No pneumothorax. Cardiomediastinal silhouette appears prominent, unchanged. Calcified plaque thoracic aorta. Multilevel thoracolumbar spondylosis. S-shaped curvature of the thoracolumbar spine. Degenerative changes in the shoulders. Metallic plate lower cervical spine. XR/XR chest 1V IMPRESSION: Chronic interstitial lung disease with likely mild interstitial lung edema and small to moderate volume left-sided pleural effusion. Electronically signed by: Jeffery Moody MD 07/20/2025 01:07 PM [facility]
--- NOTE | ~2025-07-20 | XR_ITS ---
EXAMINATION: XR CHEST CLINICAL INFORMATION: sob COMPARISON: July 20, 2025. TECHNIQUE: AP view of the chest was obtained. Portable. FINDINGS: Haziness in the lower hemithoraces pronounced left side. Prominence of the interstitial markings. No pneumothorax. Heart silhouette size is normal. Multilevel spondylosis. Metallic plate lower cervical spine. XR/XR chest 1V IMPRESSION: Worsening pulmonary edema increased bilateral pleural effusions, left greater than right. Electronically signed by: Jeffery Moody MD 07/24/2025 07:17 AM [facility]
--- NOTE | ~2025-07-20 | XR_ITS ---
CLINICAL HISTORY: ? constipation 1 view abdomen Comparison: 07/18/2025 Findings: Normal bowel gas pattern. Normal stool quantity. No abnormal calcifications. No pneumoperitoneum or pneumatosis. Bones unremarkable Impression: 1. Normal bowel gas pattern This document has been electronically signed by: Medardo Stone MD on 07/22/2025 18:37:07
--- NOTE | ~2025-07-20 | XR_ITS ---
EXAMINATION: XR CHEST CLINICAL INFORMATION: sob COMPARISON: 07/23/2025, 07/20/2025 TECHNIQUE: Frontal view of the chest was obtained. FINDINGS: The cardiac, hilar, and mediastinal contours are normal. Aortic mural calcification. Lungs demonstrate chain suture material overlying the left midlung. Blunting of the left costophrenic angle is stable. This is likely secondary to scarring as opposed to a pleural effusion. Lungs otherwise grossly clear. No gross pulmonary edema or gross consolidation. No focal osseous or soft tissue abnormality. Cervical fusion device is lower cervical spine. Degenerative changes in the spine. XR/XR chest 1V IMPRESSION: No definite active pulmonary disease. Chronic changes. No change from 07/23/2025. Electronically signed by: Bret Perez MD 07/24/2025 02:43 PM [facility]
--- NOTE | ~2025-07-20 | CT_ITS ---
CLINICAL HISTORY: abd pain -unclear etiology CT abdomen and pelvis without IV contrast. COMPARISON: CT chest dated 07/20/25 at 13:[address] abdomen and pelvis dated 12/01/23 at 15:30 EDT FINDINGS: Patchy areas of ground-glass and minimal consolidation within the partially visualized right lower lobe. This is developed since prior imaging. Small right pleural effusion. Cholecystectomy. Noncontrast appearance of the liver, spleen, pancreas and adrenal glands are unremarkable. Atrophic right kidney. No hydronephrosis or hydroureter. Renal vascular calcifications present. No renal or ureteral calculus bilaterally. Diminutive appendix. Moderate colonic stool burden. Mild distal colonic diverticulosis without evidence of diverticulitis. No mesenteric or retroperitoneal lymphadenopathy. Moderate aortoiliac atherosclerotic vascular calcifications. Normal appearance of the urinary bladder. No adnexal mass. Grade 1 anterolisthesis of L4 on L5, degenerative. Moderate spondylosis. No acute fracture or suspicious bone lesion. IMPRESSION: 1. Patchy areas of ground-glass and consolidation along the right lung base, developed since prior imaging and suggestive of pneumonia versus aspiration pneumonitis. 2. Small right pleural effusion. 3. Moderate colonic stool burden. No bowel obstruction. This document has been electronically signed by: Jitendra Samuels MD on 07/24/2025 18:28:52
--- NOTE | ~2025-07-20 | XR_ITS ---
EXAMINATION: XR CHEST 1 VIEW HISTORY: Dialysis Cath placement COMPARISON: Comparison is made with the prior examination dated 08/06/2025. FINDINGS: Two AP portable views of the chest performed at 11:58 AM are submitted. Endotracheal tube is unchanged in position. Again seen is an orogastric tube with its tip and sidehole below the diaphragm. A right-sided dialysis catheter is noted with its tip in the region of superior vena cava. Again seen are multifocal opacities in both lungs which may represent pneumonia, ARDS, or pulmonary edema. There are bilateral pleural effusions. No pneumothorax. The heart is normal in size. There is degenerative disc disease of the spine. XR/XR chest 1V IMPRESSION: 1. Lines and tubes in place as described. 2. Diffuse bilateral airspace opacities with bilateral pleural effusions. Findings may represent pneumonia, ARDS, or pulmonary edema. Electronically signed by: Jeronimo Morgan MD 08/07/2025 12:10 PM [facility] [place]
--- NOTE | ~2025-07-20 | CT_ITS ---
EXAMINATION: CT CHEST WITHOUT CONTRAST CLINICAL INFORMATION: SOB COMPARISON: July 17, 2025. TECHNIQUE: Multidetector volumetric CT imaging of the chest was done. Axial MIP volume rendering provided. Sagittal and coronal reformatted images were obtained. This CT examination was performed using dose optimization techniques as appropriate, variously including the following: *Automated exposure control *Adjustment of mA and/or kV according to patient size (this includes techniques or standardized protocols for targeted exams where dose is matched to indication/reason for exam; i.e. extremities or head) *Use of iterative reconstruction technique DLP: 333 mGy-cm FINDINGS: COMMUNICATIONS DEPARTMENT HEAD: Patient's large body habitus. Haziness in the lower hemithoraces. Heart silhouette appears prominent. Upper extremities at the size of the head. Vascular clips right upper quadrant abdomen. S-shaped curvature of the lumbar spine. Metallic plate lower cervical spine. LUNGS: Linear and confluent pulmonary attenuations with the patchy pulmonary groundglass nodules and more confluent attenuation right lung base measuring 16 mm, new since prior exam. There is peribronchial septal thickening. There is likely layering secretions within the airways extending from the trachea to the right and left mainstem bronchi. No bronchiectasis. No honeycombing. Sutures in the left lung. MEDIASTINUM: Mediastinal lymphadenopathy. No pneumomediastinum. No hemopericardium. No pericardial effusion. Calcified plaques throughout the thoracic aorta wall and its main branches without aneurysm. Calcified plaque in the aortic valve. Calcified plaques in the coronary arteries. Mild prominent left heart chambers. The overall size of the heart is normal. The thyroid gland is not enlarged. CORONARY ARTERY CALCIFICATION: Calcified plaques. PLEURA: No pneumothorax. No hemothorax. No gross pleural plaques. Apical lung scarring. AXILLA: No lymphadenopathy. UPPER ABDOMEN: Small hiatal hernia. Status post cholecystectomy. Numerous diverticula in the transverse colon. Mixed plaques in the descending thoracic and abdominal aorta. Calcified plaques in the included mesenteric arteries and the splenic artery. OSSEOUS STRUCTURES: Old healed rib fractures. Prior thoracotomies. Multilevel spondylosis throughout the axial skeleton. Metallic plate in the lower cervical spine no fully included in the [id number]. No acute fracture or gross listhesis. Osteopenia versus osteoporosis. No lytic or blastic lesions. CT/CT chest wo IV con IMPRESSION: Concerning aspiration multifocal pneumonia with reactive mediastinal lymphadenopathy. Postsurgical changes, left lung. Coronary artery disease and atherosclerosis disease. Probable mitral valve insufficiency. Diverticular disease, transverse colon. Fleischner guidelines were followed. Electronically signed by: Jeffery Moody MD 07/20/2025 02:15 PM [facility]
--- NOTE | ~2025-07-20 | XR_ITS ---
EXAMINATION: XR CHEST CLINICAL INFORMATION: Sob COMPARISON: Chest radiograph on July 29, 2025 TECHNIQUE: Frontal view of the chest was obtained. FINDINGS: Devices/Tubes/Lines: EKG leads overlie the patient. Lungs: Low lung volumes. Patchy right lower lobe opacity has mildly worsened from previous study. No new left lung opacity. Pleura: No pleural effusion or pneumothorax. Heart/Mediastinum: Unchanged cardiomediastinal silhouette. Bones: Cervical fusion hardware. No acute findings. XR/XR chest 1V IMPRESSION: Mild interval progression of the suggestion of right lung base airspace disease. Electronically signed by: Juvencio Powell MD 08/01/2025 10:48 AM [facility] [place]
--- NOTE | ~2025-07-20 | XR_ITS ---
CLINICAL HISTORY: worsening shortness of breath, wheezing 1 view chest x-ray Comparison: Prior radiographs and chest CTs most recently earlier on 08/02/2025 Findings: Redemonstration of patchy bilateral airspace densities most consistent with multifocal pneumonia as seen on prior cross-sectional imaging. Density in the right lung base appears to be somewhat more confluent. No large pleural effusion. No pneumothorax. Normal heart size and central vascularity. No acute soft tissue or osseous abnormality. Postop changes of the cervical spine. Impression: 1. Findings consistent with multifocal pneumonitis possibility demonstrating progression in the right lower lobe. 2. Additional findings as above. This document has been electronically signed by: Judy Negro MD on 08/03/2025 02:00:26
--- NOTE | ~2025-07-20 | XR_ITS ---
CLINICAL HISTORY: follow up sob 1 view chest x-ray Comparison: CR/SR - XR CHEST 1 VIEW - 07/24/25 14:17 EST Findings: Patchy right lower lobe airspace density suggested. Cardiac and mediastinal contours are stable. No acute fracture. IMPRESSION: Possible right lower lobe infiltrate. Follow-up recommended This document has been electronically signed by: Jairo Noble MD on 07/29/2025 10:50:46
--- NOTE | 2025-07-20 11:24 | ED_ITS ---
HPI - SOB/Dyspnea General Chief Complaint: Dyspnea Stated Complaint: sob Time Seen by Provider: 07/20/25 11:17 Source: patient and EMS Mode of arrival: EMS Limitations: no limitations History of Present Illness ED Provider: DEV Rincon HPI Narrative: The patient is a 74-year-old female with a complex medical history including asthma, COPD, peripheral artery disease (s/p cardiac catheterization), coronary artery disease, heart failure with preserved ejection fraction, diabetes mellitus with diabetic neuropathy, GERD, lower extremity claudication, anxiety, depression, prior RSV infection, and history of multiple pulmonary emboli on Eliquis. She was discharged from this hospital yesterday after treatment for rhinovirus. She reports that her breathing worsened last night and again this morning, to the point that it woke her from sleep. She denies nausea or vomiting. She endorses mild, centrally located chest pain described as ?just a little.? She has been compliant with all home medications, including Eliquis. She reports a history of 11 blood clots on one side and 2 in the lungs at the same time. She lives with her daughter, who is en route to the hospital. Related Data Home Medications ?Medication ?Instructions ?Recorded ?Confirmed cholecalciferol (vitamin D3) 25 25 mcg PO DAILY 07/20/25 mcg (1,000 unit) tablet albuterol sulfate 90 mcg/actuation 2 puff inhalation Q ID PRN 05/17/24 07/20/25 aerosol inhaler SOB/wheezing budesonide-formoterol HFA 160 2 puff inhalation BID VA N SOB 05/17/24 07/20/25 mcg-4.5 mcg/actuation aerosol inhaler (Symbicort) diltiazem HCl 300 mg 300 mg PO DAILY 07/16/25 capsule,extended release 24 hr (Cartia XT) famotidine 20 mg tablet 20 mg PO DAILY PRN GERD/Acid Reflux 07/16/25 07/20/25 insulin lispro 100 unit/mL 1 sliding scale dose subcut TIDAC 07/16/25 07/20/25 subcutaneous pen (Humalog KwikPen (U-100) Insulin) pantoprazole 40 mg tablet,delayed 40 mg PO DAILY@0630 07/16/25 07/20/25 release semaglutide 2 mg/dose (8 mg/3 mL) 2 mg subcut MCWILLIAMS 07/1607/20/25 subcutaneous pen injector (Ozempic) Previous Rx's ?Medication ?Instructions ?Recorded walker #1 ea 02/28/23 acetaminophen 325 mg tablet 650 mg (2 x 325 mg) PO Q6H PRN 08/22/23 pain #30 tabs compr.stocking,thigh,reg,large #2 ea 02/08/24 blood-glucose meter (OneTouch #1 ea 03/06/24 Verio Flex Meter) apixaban 5 mg tablet (Eliquis) 5 mg PO BID #180 tabs 0 01/31/25 buspirone 10 mg tablet 10 mg PO BID #180 tabs 01/31 empagliflozin 25 mg tablet 25 mg PO DAILY #90 tabs (Jardiance) furosemide 20 mg tablet 20 mg PO DAILY #90 tabs 01/05 04/30 citalopram 20 mg tablet 30 mg (1.5 x 20 mg) PO DAILY #135 02/15/25 tabs montelukast 10 mg tablet 10 mg PO BEDTIME for asthma #90 04/17/25 tabs meclizine 12.5 mg tablet 12.5 mg PO TID PRN dizziness #14 04/19/25 tabs blood sugar diagnostic (OneTouch #100 ea 05/08/25 Verio test strips) blood-glucose sensor (FreeStyle #2 ea 05/08/25 Kelly 3 Plus Sensor device) glucose 4 gram chewable tablet 16 g (4 x 4 gram) PO Q1 5M PRN 05/08/25 (Dex4 Glucose Quick Dissolve) hypoglycemia (blood suga r under 70) #30 tabs insulin glargine 100 unit/mL (3 25 unit (0.25 mL) subc ut BEDTIME 05/08/25 mL) subcutaneous pen (Lantus #15 mL Solostar U-100 Insulin) lancets 30 gauge (OneTouch Lavinia #100 ea 05/08/25 Plus Lancet) nitroglycerin 0.3 mg sublingual 0.3 mg sublingual Q5M PRN chest 05/18/25 tablet pain #20 tabs atorvastatin 80 mg tablet 80 mg PO BEDTIME #90 tabs ferrous sulfate 325 mg (65 mg 325 mg PO TID #100 tabs 07/09/25 iron) tablet carvedilol 12.5 mg tablet 12.5 mg PO BID 90 days #180 tabs 07/13/25 azithromycin 500 mg tablet 250 mg (1/2 x 500 mg) PO Q2 4H #1 07/19/25 tab dicyclomine 10 mg capsule 10 mg PO BID PRN abd pain #2 0 caps 07/19/25 docusate sodium 100 mg capsule 100 mg PO BID PRN const ipation #60 07/19/25 (Colace) caps polyethylene glycol 3350 17 17 g PO BID PRN constipati on #238 07/19/25 gram/dose oral powder (Miralax) grams prednisone 20 mg tablet 40 mg (2 x 20 mg) PO DAILY # 8 tabs 07/19/25 Allergies Allergy/AdvReac Type Severity Reaction Status Date / Time Latex, Natural Rubber Allergy Severe blisters Verified 07/20/25 11:18 Sulfa (Sulfonamide Allergy Mild ITCHING, Verified 07/20/25 11:18 Antibiotics) (SULFA rash (SULFONAMIDE ANTIBIOTICS)) nystatin Allergy Unknown rash Verified 07/20/25 11:18 isosorbide (From Imdur) AdvReac Unknown HEADACHES, Verified 07/20/25 11:18 headache tizanidine AdvReac Unknown weakness, Verified 07/20/25 11:18 Hellucination Review of Systems 2 Review of Systems: * Respiratory: Positive for shortness of breath; patient notes worsening dyspnea since discharge. * Cardiovascular: Positive for mild, central chest pain. * Gastrointestinal: Denies nausea or vomiting. Yes all other systems are reviewed and are negative PMFSH Past Medical History Attestation statement: The following information was validated with the patient. 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 Father No problems noted. Brother Substance use disorder Brother Substance use disorder Social History Social History Household Members: Family Household Members Other:: 2 Housing: House Do you presently have visiting nurse or other home services: No Alcohol intake: current Alcohol intake frequency: holidays/special occasions only Alcohol type: wine Comment: weddings Patient Tobacco Use Status: Former Tobacco user Tobacco use type: Cigarette Cigarettes Per Day: 10 Years Smoked: 3 stopped 1992 Smoked in Last 30 Days: No e-Cigarette/Vaping Use: Never Used Second Hand Smoke Exposure: Yes Use of substances other than those prescribed or required for medical reasons: No Advance Directives: Yes Advance Directives on File: Yes Advance Directives Date on File: 06/29/23 Do you have a plan to hurt others: No Plan service: No Current occupational status: retired Cognitive needs: No Hearing needs: No Vision needs: No Physical Exam 2 Exam: Exam: Appearance: Alert.? Oriented X3.? Mild distress speaking in short sentences on nasal cannula. Head: Normocephalic, atraumatic, no step-offs or deformities Eyes: Pupils equal, round and reactive to light.? ENT: Pharynx normal.? Neck: Normal inspection.? Neck supple.? CVS: Normal heart rate and rhythm.? Pulses normal.? Respiratory: Increased respiratory effort mild respiratory distress. Bilateral expiratory wheezing with bilateral lower lobe crackles. Abdomen: Soft and nontender.? Skin: Skin warm and dry.? Normal skin color.? Normal skin turgor.? Extremities: No lower extremity edema.? No calf ttp. 5/5 strength to bilateral upper and lower extremities Back: No midline tenderness, no C-spine tenderness, full range of motion, no CVA tenderness bilaterally Neuro: Oriented X 3.? No motor deficit.? No sensory deficit. CN 2-12 intact Vital Signs: Vital Signs: Last Vital Signs Temp 98.4 F 07/20/25 11:16 Pulse 64 07/20/25 12:22 Resp 19 07/20/25 12:22 BP 170/61 H 07/20/25 13:21 Pulse Ox 95 07/20/25 12:22 O2 Del Method Room Air 07/20/25 12:22 Oxygen Flow Rate 2 07/20/25 11:16 BMI result Body Mass Index 32.6 vss Course Reevaluation(s) Reevaluation #1: CBC with leukocytosis and a microcytic anemia which is her baseline. She does have neutrophil predominance supporting infection. Chemistry with acute and chronic kidney injury. Lactic acid 4.0. Repeat lactic acid is due at this time will ask nursing to obtain. Troponin elevated 17.5 repeat pending. ProBNP 1196. CXR Chronic interstitial lung disease with likely mild interstitial lung edema and small to moderate volume left-sided pleural effusion. CT/CT chest wo IV con Concerning aspiration multifocal pneumonia with reactive mediastinal lymphadenopathy. Postsurgical changes, left lung.Coronary artery disease and atherosclerosis disease.Probable mitral valve insufficiency.Diverticular disease, transverse colon. Plan- hospital admission Patient is having labored breathing and on imaging she is noted to have aspiration multifocal pneumonia with reactive mediastinal lymphadenopathy. She is a 72 hour return. Time: 14:26 Medications Administered Discontinued Medications Generic Name Dose Route Start Last Admin Trade Name Freq PRN Reason Stop Dose Admin Albuterol Sulfate 5 mg/ 0 mg 07/20/25 11:45 07/20/25 11:48 Albuterol/Ipratropium 3 ml INHALE 07/20/25 11:46 1 each ONCE ONE Administration Furosemide 40 mg 07/20/25 13:04 07/20/25 13:21 Furosemide 40 Mg/4 Ml Vial IVPUSH 07/20/25 13:05 40 mg ONCE ONE Administration Protocol Sodium Chloride 2,585.49 mls @ 2,585.49 mls/hr 07/20/25 11:29 07/20/25 12:18 Ns 30 ml/kg infuse over 1 hr (2585.49 ml) 07/20/25 12:28 2,585.49 mls/hr IV Administration .Q1H STA Ceftriaxone Sodium 1 gm/ 50 mls @ 100 mls/hr 07/20/25 11:35 07/20/25 12:50 Sodium Chloride IV 07/20/25 12:04 Infused ONCE ONE Infusion Methylprednisolone Sodium Succinate 125 mg 07/20/25 11:35 07/20/25 12:11 Methylprednisolone Sod Succ 125 Mg/2 Ml Vial IVPUSH 07/20/25 11:36 125 mg ONCE ONE Administration Medical Decision Making Medical Decision Making [facility] Narrative: 1132 Acute shortness of breath in a patient with asthma/COPD and recent rhinovirus infection; rule out pneumonia. PE Increased respiratory effort mild respiratory distress. Bilateral expiratory wheezing with bilateral lower lobe crackles. History and physical exam concerning for chronic lung disease exacerbation versus acute pneumonia. Unlikely pulmonary embolism as patient is anticoagulated. Unlikely ACS. There is [id number] respiratory distress. Will order bronch protocol for this. Plan: * Obtain chest imaging and pertinent laboratory tests. * Continue home medications, including Eliquis, as reported compliant. * Supportive care; monitor respiratory status closely. * Reassess following diagnostic results to guide further management. * At this time infection suspected blood cultures, antibiotics, fluids ordered. Differential Diagnosis Differential Diagnoses: The differential diagnosis associated with the presentation includes (History and physical exam concerning for chronic lung disease exacerbation versus acute pneumonia. Unlikely pulmonary embolism as patient is anticoagulated. Unlikely ACS. There is [id number] respiratory distress. Will order bronch protocol for this.) Differential Diagnosis: * Acute exacerbation of COPD/asthma: Most likely given the patient's history of asthma and COPD, recent rhinovirus infection, and physical exam findings of diffuse bilateral wheezes and crackles. Viral infections are a common trigger for exacerbations in patients with chronic pulmonary disease. * Heart failure exacerbation: History of heart failure with preserved ejection fraction (HFpEF), presence of crackles on exam, and worsening dyspnea suggest possible volume overload or cardiac decompensation. * Pneumonia: Recent viral infection increases risk for secondary bacterial pneumonia; new crackles and acute worsening of symptoms are concerning for this complication. * Pulmonary embolism: History of multiple pulmonary emboli, currently on Eliquis but still at risk, presenting with acute dyspnea and mild central chest pain. Anticoagulation reduces but does not eliminate risk. * Acute coronary syndrome: History of coronary artery disease and mild central chest pain raise concern for cardiac ischemia as a potential contributor to symptoms. * Anxiety/panic attack: History of anxiety, but less likely given objective findings of wheezing and crackles on exam and recent infectious trigger. * Less likely causes: Medication side effects, GERD-related symptoms, or other metabolic causes (e.g., acidosis) are possible but less likely given the clinical context and exam findings. Admission/Observation Consideration of admission/observation: Escalation of care including admission/observation considered (likely ) Consult Healthcare Provider Management of the patient was discussed with: Hospitalist Lab Data MDM Lab Attestation statement: I reviewed the patient's lab results. 07/20/25 12:15 07/20/25 12:15 Labs: Lab Results 07/20/25 07/20/25 07/20/25 Range/Units 12:15 12:15 12:15 WBC 15.7 H (4.8-10.8) X10*3/uL RBC 4.37 (4.20-5.50) X10*6/uL Hgb 9.5 L (12.0-16.0) g/dl Hct 31.8 L (37.0-47.0) % MCV 72.8 L (80.0-98.0) fL MCH 21.7 L (27.0-33.0) pg MCHC 29.9 L (31.0-35.0) g/dl RDW 18.1 H (11.0-16.0) % Plt Count 362 (160-400) X10*3/uL MPV 9.4 (9.4-12.3) fL Immature Gran % (Auto) 0.9 H (0.0-0.4) % Neut % (Auto) 87.4 H (45-73) % Lymph % (Auto) 4.5 L (20-40) % [place] % (Auto) 7.1 (2-11) % Eos % (Auto) 0.0 (0-4) % Baso % (Auto) 0.1 (0-2) % Lymph # (Auto) 0.7 L (1.2-4.9) X10*3/uL [place] # (Auto) 1.1 (0.1-1.2) X10*3/uL Eos # (Auto) 0.0 (0.0-0.4) X10*3/uL Baso # (Auto) 0.0 (0.0-0.2) X10*3/uL Abs Immat Gran (auto) 0.14 H (0.00-0.03) X10*3/uL Absolute Neuts (auto) 13.7 H (2.0-8.3) x10*3/uL Absolute Nucleated RBC 0.000 (0.0-0.012) X10*3/uL Nucleated RBC % (auto) 0.0 (0.0-0.2) /100WBC Hold Purple Top SEE NOTE Sodium Cancelled 140 Potassium Cancelled 4.2 Chloride Cancelled Carbon Dioxide Anion Gap BUN Creatinine Estim Creat Clear Calc Estimated GFR Random Glucose Lactic Acid (0.5-2.0) mmol/L Calcium Magnesium Total Bilirubin AST ALT Alkaline Phosphatase Troponin I High Sens (<3.5-17.0) ng/L NT-Pro-B Natriuret Pep Total Protein Albumin 07/20/25 07/20/25 07/20/25 Range/Units 12:15 12:15 12:15 WBC (4.8-10.8) X10*3/uL RBC (4.20-5.50) X10*6/uL Hgb (12.0-16.0) g/dl Hct (37.0-47.0) % MCV (80.0-98.0) fL MCH (27.0-33.0) pg MCHC (31.0-35.0) g/dl RDW (11.0-16.0) % Plt Count (160-400) X10*3/uL MPV (9.4-12.3) fL Immature Gran % (Auto) (0.0-0.4) % Neut % (Auto) (45-73) % Lymph % (Auto) (20-40) % [place] % (Auto) (2-11) % Eos % (Auto) (0-4) % Baso % (Auto) (0-2) % Lymph # (Auto) (1.2-4.9) X10*3/uL [place] # (Auto) (0.1-1.2) X10*3/uL Eos # (Auto) (0.0-0.4) X10*3/uL Baso # (Auto) (0.0-0.2) X10*3/uL Abs Immat Gran (auto) (0.00-0.03) X10*3/uL Absolute Neuts (auto) (2.0-8.3) x10*3/uL Absolute Nucleated RBC (0.0-0.012) X10*3/uL Nucleated RBC % (auto) (0.0-0.2) /100WBC Hold Purple Top Sodium Potassium Chloride 103 Carbon Dioxide Cancelled 24 Anion Gap Cancelled 17 BUN Cancelled Creatinine Estim Creat Clear Calc Estimated GFR Random Glucose Lactic Acid (0.5-2.0) mmol/L Calcium Magnesium Total Bilirubin AST ALT Alkaline Phosphatase Troponin I High Sens (<3.5-17.0) ng/L NT-Pro-B Natriuret Pep Total Protein Albumin 07/20/25 07/20/25 07/20/25 Range/Units 12:15 12:15 12:15 WBC (4.8-10.8) X10*3/uL RBC (4.20-5.50) X10*6/uL Hgb (12.0-16.0) g/dl Hct (37.0-47.0) % MCV (80.0-98.0) fL MCH (27.0-33.0) pg MCHC (31.0-35.0) g/dl RDW (11.0-16.0) % Plt Count (160-400) X10*3/uL MPV (9.4-12.3) fL Immature Gran % (Auto) (0.0-0.4) % Neut % (Auto) (45-73) % Lymph % (Auto) (20-40) % [place] % (Auto) (2-11) % Eos % (Auto) (0-4) % Baso % (Auto) (0-2) % Lymph # (Auto) (1.2-4.9) X10*3/uL [place] # (Auto) (0.1-1.2) X10*3/uL Eos # (Auto) (0.0-0.4) X10*3/uL Baso # (Auto) (0.0-0.2) X10*3/uL Abs Immat Gran (auto) (0.00-0.03) X10*3/uL Absolute Neuts (auto) (2.0-8.3) x10*3/uL Absolute Nucleated RBC (0.0-0.012) X10*3/uL Nucleated RBC % (auto) (0.0-0.2) /100WBC Hold Purple Top Sodium Potassium Chloride Carbon Dioxide Anion Gap BUN 59 H Creatinine Cancelled 1.53 H Estim Creat Clear Calc Cancelled 33.2 Estimated GFR Cancelled Random Glucose Lactic Acid (0.5-2.0) mmol/L Calcium Magnesium Total Bilirubin AST ALT Alkaline Phosphatase Troponin I High Sens (<3.5-17.0) ng/L NT-Pro-B Natriuret Pep Total Protein Albumin 07/20/25 07/20/25 07/20/25 Range/Units 12:15 12:15 12:15 WBC (4.8-10.8) X10*3/uL RBC (4.20-5.50) X10*6/uL Hgb (12.0-16.0) g/dl Hct (37.0-47.0) % MCV (80.0-98.0) fL MCH (27.0-33.0) pg MCHC (31.0-35.0) g/dl RDW (11.0-16.0) % Plt Count (160-400) X10*3/uL MPV (9.4-12.3) fL Immature Gran % (Auto) (0.0-0.4) % Neut % (Auto) (45-73) % Lymph % (Auto) (20-40) % [place] % (Auto) (2-11) % Eos % (Auto) (0-4) % Baso % (Auto) (0-2) % Lymph # (Auto) (1.2-4.9) X10*3/uL [place] # (Auto) (0.1-1.2) X10*3/uL Eos # (Auto) (0.0-0.4) X10*3/uL Baso # (Auto) (0.0-0.2) X10*3/uL Abs Immat Gran (auto) (0.00-0.03) X10*3/uL Absolute Neuts (auto) (2.0-8.3) x10*3/uL Absolute Nucleated RBC (0.0-0.012) X10*3/uL Nucleated RBC % (auto) (0.0-0.2) /100WBC Hold Purple Top Sodium Potassium Chloride Carbon Dioxide Anion Gap BUN Creatinine Estim Creat Clear Calc Estimated GFR 33 Random Glucose Cancelled 226 H Lactic Acid 4.0 H* (0.5-2.0) mmol/L Calcium Cancelled 8.6 Magnesium Cancelled Total Bilirubin AST ALT Alkaline Phosphatase Troponin I High Sens (<3.5-17.0) ng/L NT-Pro-B Natriuret Pep Total Protein Albumin 07/20/25 07/20/25 07/20/25 Range/Units 12:15 12:15 12:15 WBC (4.8-10.8) X10*3/uL RBC (4.20-5.50) X10*6/uL Hgb (12.0-16.0) g/dl Hct (37.0-47.0) % MCV (80.0-98.0) fL MCH (27.0-33.0) pg MCHC (31.0-35.0) g/dl RDW (11.0-16.0) % Plt Count (160-400) X10*3/uL MPV (9.4-12.3) fL Immature Gran % (Auto) (0.0-0.4) % Neut % (Auto) (45-73) % Lymph % (Auto) (20-40) % [place] % (Auto) (2-11) % Eos % (Auto) (0-4) % Baso % (Auto) (0-2) % Lymph # (Auto) (1.2-4.9) X10*3/uL [place] # (Auto) (0.1-1.2) X10*3/uL Eos # (Auto) (0.0-0.4) X10*3/uL Baso # (Auto) (0.0-0.2) X10*3/uL Abs Immat Gran (auto) (0.00-0.03) X10*3/uL Absolute Neuts (auto) (2.0-8.3) x10*3/uL Absolute Nucleated RBC (0.0-0.012) X10*3/uL Nucleated RBC % (auto) (0.0-0.2) /100WBC Hold Purple Top Sodium Potassium Chloride Carbon Dioxide Anion Gap BUN Creatinine Estim Creat Clear Calc Estimated GFR Random Glucose Lactic Acid (0.5-2.0) mmol/L Calcium Magnesium 2.7 H Total Bilirubin Cancelled 0.5 AST Cancelled 22 ALT Cancelled Alkaline Phosphatase Troponin I High Sens (<3.5-17.0) ng/L NT-Pro-B Natriuret Pep Total Protein Albumin 07/20/25 07/20/25 07/20/25 Range/Units 12:15 12:15 12:15 WBC (4.8-10.8) X10*3/uL RBC (4.20-5.50) X10*6/uL Hgb (12.0-16.0) g/dl Hct (37.0-47.0) % MCV (80.0-98.0) fL MCH (27.0-33.0) pg MCHC (31.0-35.0) g/dl RDW (11.0-16.0) % Plt Count (160-400) X10*3/uL MPV (9.4-12.3) fL Immature Gran % (Auto) (0.0-0.4) % Neut % (Auto) (45-73) % Lymph % (Auto) (20-40) % [place] % (Auto) (2-11) % Eos % (Auto) (0-4) % Baso % (Auto) (0-2) % Lymph # (Auto) (1.2-4.9) X10*3/uL [place] # (Auto) (0.1-1.2) X10*3/uL Eos # (Auto) (0.0-0.4) X10*3/uL Baso # (Auto) (0.0-0.2) X10*3/uL Abs Immat Gran (auto) (0.00-0.03) X10*3/uL Absolute Neuts (auto) (2.0-8.3) x10*3/uL Absolute Nucleated RBC (0.0-0.012) X10*3/uL Nucleated RBC % (auto) (0.0-0.2) /100WBC Hold Purple Top Sodium Potassium Chloride Carbon Dioxide Anion Gap BUN Creatinine Estim Creat Clear Calc Estimated GFR Random Glucose Lactic Acid (0.5-2.0) mmol/L Calcium Magnesium Total Bilirubin AST ALT 23 Alkaline Phosphatase Cancelled 107 Troponin I High Sens 17.5 H (<3.5-17.0) ng/L NT-Pro-B Natriuret Pep Cancelled 1196.1 H Total Protein Cancelled Albumin 07/20/25 07/20/25 Range/Units 12:15 12:15 WBC (4.8-10.8) X10*3/uL RBC (4.20-5.50) X10*6/uL Hgb (12.0-16.0) g/dl Hct (37.0-47.0) % MCV (80.0-98.0) fL MCH (27.0-33.0) pg MCHC (31.0-35.0) g/dl RDW (11.0-16.0) % Plt Count (160-400) X10*3/uL MPV (9.4-12.3) fL Immature Gran % (Auto) (0.0-0.4) % Neut % (Auto) (45-73) % Lymph % (Auto) (20-40) % [place] % (Auto) (2-11) % Eos % (Auto) (0-4) % Baso % (Auto) (0-2) % Lymph # (Auto) (1.2-4.9) X10*3/uL [place] # (Auto) (0.1-1.2) X10*3/uL Eos # (Auto) (0.0-0.4) X10*3/uL Baso # (Auto) (0.0-0.2) X10*3/uL Abs Immat Gran (auto) (0.00-0.03) X10*3/uL Absolute Neuts (auto) (2.0-8.3) x10*3/uL Absolute Nucleated RBC (0.0-0.012) X10*3/uL Nucleated RBC % (auto) (0.0-0.2) /100WBC Hold Purple Top Sodium Potassium Chloride Carbon Dioxide Anion Gap BUN Creatinine Estim Creat Clear Calc Estimated GFR Random Glucose Lactic Acid (0.5-2.0) mmol/L Calcium Magnesium Total Bilirubin AST ALT Alkaline Phosphatase Troponin I High Sens (<3.5-17.0) ng/L NT-Pro-B Natriuret Pep Total Protein 6.8 Albumin Cancelled 3.9 Independent Interpretation I performed an independent interpretation of an: CT Scan Radiology Impression Discussion of test interpretation with radiology: I have reviewed the radiologist's reading. Independent Historian Clinical information obtained from an independent historian. History obtained from or confirmed by: Other (daughter ) External Record Review External record reviewed: Inpatient record, Office record, Outpatient record, Prior outpatient labs, Prior outpatient radiology, Primary care record and Outside ED record Chronic Conditions Patient?s care impacted by: Other (see hpi) Critical Care Time Critical Care Time Critical Care Time: Yes Total Critical Care Time: 45 Attestation: I attest to this time spent taking care of the patient, obtaining history, physical, reviewing labs, imaging, treatment of patients condition +/- specialist/hospitalist consult +/- procedure Discharge Plan Discharge Clinical Impression: Aspiration pneumonia, AG (acute kidney injury), Hypoxia, CAD (coronary artery disease), Microcytic anemia Patient Disposition: Admitted As Inpatient Print Language: Beninese
[2025-07-20] MEDS: Albuterol Sulfate 5 MG, Albuterol/Iprat 2.5/0.5MG 3 ML 3 ML INHALE (11:48)
[2025-07-20] MEDS: 0.9 % Sodium Chloride 2,585.49 ML 2585.49 ML IV (12:18)
[2025-07-20 12:24] LABS: MANUAL DIFF FLAG NO
[2025-07-20 12:27] LABS: Hematocrit 31.8 % (37.0-47.0); Hemoglobin 9.5 g/dl (12.0-16.0); Imm Gran Abs Auto 0.14 X10*3/uL (0.00-0.03); Imm Gran Pct Auto 0.9 % (0.0-0.4); Lymphocytes Absolute Auto 0.7 X10*3/uL (1.2-4.9); Mean Corpuscular HGB Conc 29.9 g/dl (31.0-35.0); Mean Corpuscular Hemoglobin 21.7 pg (27.0-33.0); Mean Corpuscular Volume 72.8 fL (80.0-98.0); NRBC Abs Auto 0.000 X10*3/uL (0.0-0.012); NRBC Pct Auto 0.0 /100WBC (0.0-0.2); Platelet Count 362 X10*3/uL (160-400); Red Blood Count 4.37 X10*6/uL (4.20-5.50); White Blood Count 15.7 X10*3/uL (4.8-10.8)
[2025-07-20 12:58] LABS: Alanine Aminotransferase 23 U/L (0-31); Albumin Level 3.9 g/dL (3.5-5.0); Alkaline Phosphatase 107 U/L (39-117); Anion Gap 17 (12-20); Aspartate Amino Transferase 22 U/L (5-31); Blood Urea Nitrogen 59 mg/dL (9-16); Calcium 8.6 mg/dL (8.4-10.2); Carbon Dioxide 24 mmol/L (22-29); Chloride 103 mmol/L (96-108); Creatinine Clr Calc Pharmacy 33.2; Estimated Glomerular Filt Rate 33; Magnesium 2.7 mg/dL (1.6-2.6); Potassium 4.2 mmol/L (3.3-5.1); Sodium 140 mmol/L (135-145); Total Protein 6.8 g/dL (6.5-8.0)
[2025-07-20 13:02] LABS: NT Pro B Type Natriuretic Pept 1196.1 pg/mL (<300); Troponin-I High Sensitivity 17.5 ng/L (<3.5-17.0)
[2025-07-20] MEDS: Furosemide 40 MG/4 ML VIAL IVPUSH (13:21)
[2025-07-20 14:21] LABS: Reflex Lactate? Lactic Acid Added
--- NOTE | 2025-07-20 14:35 | PC.NURSE ---
Pt SOB with speaking and is not able to move in bed without profund SOB- sats drop periodically to 89 but mostly remain in low 90's provider aware of SOB. Pt also incontinent of urine due to coughing.
--- NOTE | 2025-07-20 14:40 | PC.NURSE ---
Bolus infused slower than ordered due to pt increased BNP and SOB . Provider also asked to run slow.
--- NOTE | 2025-07-20 14:48 | PM.IMHP ---
History of Present Illness Date of Service: 07/20/25 Attending physician on admission: Kenrick Millard Chief Complaint: sob HPI: 74-year-old female with a complex medical history including asthma, COPD, peripheral artery disease (s/p cardiac catheterization), coronary artery disease, heart failure with preserved ejection fraction, diabetes mellitus with diabetic neuropathy, GERD, lower extremity claudication, anxiety, depression, recent rhino/enterovirus infection(last admission and discharged 2 days back), and history of multiple pulmonary emboli on Eliquis: Patient came to the hospital because breathing worsened last night and again this morning, to the point that it woke her from sleep, he has also been wheezing. Denies any chest pain or nausea vomiting or abdominal pain currently, no fever or chills. She says that she went home and was getting more short of breath progressively so decided to come to the hospital. She denies nausea or vomiting.She has been compliant with all home medications, including Eliquis. Lab imaging reviewed: Leukocytosis almost similar range bun/Creatinine is 59/1.53 Lactic acid of 4 Troponin flat BNP 1190 cxr:Chronic interstitial lung disease with likely mild interstitial lung edema and small to moderate volume left-sided pleural effusion. chest CT:Concerning aspiration multifocal pneumonia with reactive mediastinal lymphadenopathy. Postsurgical changes, left lung.Coronary artery disease and atherosclerosis disease. Probable mitral valve insufficiency.Diverticular disease, transverse colon. Fleischner guidelines were followed. In ED: Received doxycycline, ceftriaxone, IV Solu-Medrol, nebs, IV Lasix-requested admission for mixed CHF/COPD exacerbation and possible pneumonia. Review of Systems Review of Systems: As above. Yes all other systems are reviewed and are negative [facility] Medical History PAD (peripheral artery disease) COPD (chronic obstructive pulmonary disease) GERD (gastroesophageal reflux disease) Diabetic neuropathy Claudication of both lower extremities 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 2 diabetes mellitus correction (current) use of insulin Vitamin D deficiency DM type 2 (diabetes mellitus, type 2) CAD (coronary artery disease) Non-ST elevation SC (NSTEMI) Patellofemoral arthritis of right knee Right knee pain correction current use of anticoagulant Abnormal stress test Hypertension Obstructive sleep apnea Asthma with COPD Anemia CKD stage 3 due to type 2 diabetes mellitus Tracheomalacia, acquired History of pulmonary embolism AG (acute kidney injury) Paroxysmal atrial fibrillation Pulmonary embolism Obesity Dyslipidemia Respiratory failure Family History Mother No problems noted. Father No problems noted. Brother Substance use disorder Brother Substance use disorder Surgical History History of carpal tunnel surgery History of cholecystectomy History of lobectomy of lung Status post tracheoplasty History of cardiac cath Social History Household Members: Family Household Members Other:: 2 Housing: House Do you presently have visiting nurse or other home services: No Alcohol intake: current Alcohol intake frequency: holidays/special occasions only Alcohol type: wine Comment: weddings Patient Tobacco Use Status: Former Tobacco user Tobacco use type: Cigarette Cigarettes Per Day: 10 Years Smoked: 3 stopped 1992 Smoked in Last 30 Days: No e-Cigarette/Vaping Use: Never Used Second Hand Smoke Exposure: Yes Use of substances other than those prescribed or required for medical reasons: No Advance Directives: Yes Advance Directives on File: Yes Advance Directives Date on File: 06/29/23 Do you have a plan to hurt others: No Plan service: No Current occupational status: retired Cognitive needs: No Hearing needs: No Vision needs: No Meds Allergies Allergy/AdvReac Type Severity Reaction Status Date / Time Latex, Natural Rubber Allergy Severe blisters Verified 07/20/25 11:18 Sulfa (Sulfonamide Allergy Mild ITCHING, Verified 07/20/25 11:18 Antibiotics) (SULFA rash (SULFONAMIDE ANTIBIOTICS)) nystatin Allergy Unknown rash Verified 07/20/25 11:18 isosorbide (From Imdur) AdvReac Unknown HEADACHES, Verified 07/20/25 11:18 headache tizanidine AdvReac Unknown weakness, Verified 07/20/25 11:18 Hellucination Active Medications: Current Medications Acetaminophen (Acetaminophen 325 Mg Tablet) 650 mg PO Q6H PRN PRN Reason: Pain, Mild 1-3,fever,headache Albuterol/Ipratropium (Albuterol/Iprat 2.5/0.5mg 3 Ml Ampul.Neb) 3 ml INHALE Q4H LOU Albuterol/Ipratropium (Albuterol/Iprat 2.5/0.5mg 3 Ml Ampul.Neb) 3 ml INHALE Q3H PRN PRN Reason: sob Calcium Carbonate (Calcium Carbonate 750 Mg Tab.Chew) 750 mg PO Q4H PRN PRN Reason: Heartburn Doxycycline Hyclate 100 mg/ (Sodium Chloride) 250 mls @ 166.67 mls/hr IV ONCE ONE Stop: 07/20/25 15:52 Doxycycline Hyclate 100 mg/ (Sodium Chloride) 250 mls @ 166.67 mls/hr IV BID LOU Ceftriaxone Sodium 1 gm/ (Sodium Chloride) 50 mls @ 100 mls/hr IV Q24H LOU Magnesium Hydroxide (Milk Of Magnesia 30 Ml Oral.Susp) 30 ml PO DAILY PRN PRN Reason: Constipation Melatonin (Melatonin 3 Mg Tablet) 6 mg PO BEDTIME PRN PRN Reason: Insomnia Methylprednisolone Sodium Succinate (Methylprednisolone Sod Succ 40 Mg/Ml Vial) 40 mg IVPUSH BID [facility] Sodium Chloride (0.9 % Sodium Chloride Flush 3 Ml Syringe) 3 ml IVFLUSH QSHIFT [facility] Home Medications ?Medication ?Instructions ?Recorded ?Confirmed ?Last Taken ?Type cholecalciferol (vitamin D3) 25 25 mcg PO DAILY 08/11/23 07/20/25 07/20/25 History mcg (1,000 unit) tablet albuterol sulfate 90 mcg/actuation 2 puff inhalation QID PRN 05/17/24 07/20/25 Unknown History aerosol inhaler SOB/wheezing budesonide-formoterol HFA 160 2 puff inhalation BID PRN SOB 05/17/24 07/20/25 Unknown History mcg-4.5 mcg/actuation aerosol inhaler (Symbicort) diltiazem HCl 300 mg 300 mg PO DAILY 07/16/25 07/20/25 07/20/25 History capsule,extended release 24 hr (Cartia XT) famotidine 20 mg tablet 20 mg PO DAILY PRN GERD/Acid Reflux 07/16/25 07/20/25 Unknown History insulin lispro 100 unit/mL 1 sliding scale dose subcut TIDAC 07/16/25 07/20/25 07/20/25 History subcutaneous pen (Humalog KwikPen (U-100) Insulin) pantoprazole 40 mg tablet,delayed 40 mg PO DAILY@0630 07/16/25 07/20/25 07/20/25 History release semaglutide 2 mg/dose (8 mg/3 mL) 2 mg subcut [facility] 07/16/25 07/20/25 07/08/25 History subcutaneous pen injector (Ozempic) Physical Exam Vital Signs and Narrative: Vital Signs: Last Vital Signs Temp 98.4 F 07/20/25 11:16 Pulse 64 07/20/25 12:22 Resp 19 07/20/25 12:22 BP 170/61 H 07/20/25 13:21 Pulse Ox 95 07/20/25 12:22 O2 Del Method Room Air 07/20/25 12:22 Oxygen Flow Rate 2 07/20/25 11:16 BMI result Body Mass Index 32.6 Results Labs 07/20/25 12:15 07/20/25 12:15 Labs: Laboratory Results - last 24 hr 07/20/25 07/20/25 07/20/25 12:15 12:15 12:15 MCV 72.8 L MCH 21.7 L MCHC 29.9 L RDW 18.1 H Plt Count 362 MPV 9.4 Immature Gran % (Auto) 0.9 H Neut % (Auto) 87.4 H Lymph % (Auto) 4.5 L Miner % (Auto) 7.1 Eos % (Auto) 0.0 Baso % (Auto) 0.1 Lymph # (Auto) 0.7 L Miner # (Auto) 1.1 Eos # (Auto) 0.0 Baso # (Auto) 0.0 Abs Immat Gran (auto) 0.14 H Absolute Neuts (auto) 13.7 H Absolute Nucleated RBC 0.000 Nucleated RBC % (auto) 0.0 Hold Purple Top SEE NOTE Anion Gap Cancelled 17 Estim Creat Clear Calc Cancelled 33.2 Estimated GFR Cancelled Random Glucose Lactic Acid Calcium Magnesium Total Bilirubin AST ALT Alkaline Phosphatase Troponin I High Sens NT-Pro-B Natriuret Pep Total Protein Albumin 07/20/25 07/20/25 07/20/25 12:15 12:15 12:15 MCV MCH MCHC RDW Plt Count MPV Immature Gran % (Auto) Neut % (Auto) Lymph % (Auto) Miner % (Auto) Eos % (Auto) Baso % (Auto) Lymph # (Auto) Miner # (Auto) Eos # (Auto) Baso # (Auto) Abs Immat Gran (auto) Absolute Neuts (auto) Absolute Nucleated RBC Nucleated RBC % (auto) Hold Purple Top Anion Gap Estim Creat Clear Calc Estimated GFR 33 Random Glucose Cancelled 226 H Lactic Acid 4.0 H* Calcium Cancelled 8.6 Magnesium Cancelled Total Bilirubin AST ALT Alkaline Phosphatase Troponin I High Sens NT-Pro-B Natriuret Pep Total Protein Albumin 07/20/25 07/20/25 07/20/25 12:15 12:15 12:15 MCV MCH MCHC RDW Plt Count MPV Immature Gran % (Auto) Neut % (Auto) Lymph % (Auto) Miner % (Auto) Eos % (Auto) Baso % (Auto) Lymph # (Auto) Miner # (Auto) Eos # (Auto) Baso # (Auto) Abs Immat Gran (auto) Absolute Neuts (auto) Absolute Nucleated RBC Nucleated RBC % (auto) Hold Purple Top Anion Gap Estim Creat Clear Calc Estimated GFR Random Glucose Lactic Acid Calcium Magnesium 2.7 H Total Bilirubin Cancelled 0.5 AST Cancelled 22 ALT Cancelled Alkaline Phosphatase Troponin I High Sens NT-Pro-B Natriuret Pep Total Protein Albumin 07/20/25 07/20/25 07/20/25 12:15 12:15 12:15 MCV MCH MCHC RDW Plt Count MPV Immature Gran % (Auto) Neut % (Auto) Lymph % (Auto) Miner % (Auto) Eos % (Auto) Baso % (Auto) Lymph # (Auto) Miner # (Auto) Eos # (Auto) Baso # (Auto) Abs Immat Gran (auto) Absolute Neuts (auto) Absolute Nucleated RBC Nucleated RBC % (auto) Hold Purple Top Anion Gap Estim Creat Clear Calc Estimated GFR Random Glucose Lactic Acid Calcium Magnesium Total Bilirubin AST ALT 23 Alkaline Phosphatase Cancelled 107 Troponin I High Sens 17.5 H NT-Pro-B Natriuret Pep Cancelled 1196.1 H Total Protein Cancelled Albumin 07/20/25 07/20/25 12:15 12:15 MCV MCH MCHC RDW Plt Count MPV Immature Gran % (Auto) Neut % (Auto) Lymph % (Auto) Miner % (Auto) Eos % (Auto) Baso % (Auto) Lymph # (Auto) Miner # (Auto) Eos # (Auto) Baso # (Auto) Abs Immat Gran (auto) Absolute Neuts (auto) Absolute Nucleated RBC Nucleated RBC % (auto) Hold Purple Top Anion Gap Estim Creat Clear Calc Estimated GFR Random Glucose Lactic Acid Calcium Magnesium Total Bilirubin AST ALT Alkaline Phosphatase Troponin I High Sens NT-Pro-B Natriuret Pep Total Protein 6.8 Albumin Cancelled 3.9 Imaging Radiologist's Impressions: Impressions Chest X-Ray 07/20/25 12:46 IMPRESSION: Chronic interstitial lung disease with likely mild interstitial lung edema and small to moderate volume left-sided pleural effusion. Electronically signed by: Jeffery Moody MD 07/20/2025 01:07 PM EST RP Chest CT 07/20/25 13:36 IMPRESSION: Concerning aspiration multifocal pneumonia with reactive mediastinal lymphadenopathy. Postsurgical changes, left lung. Coronary artery disease and atherosclerosis disease. Probable mitral valve insufficiency. Diverticular disease, transverse colon. Fleischner guidelines were followed. Electronically signed by: Jeffery Moody MD 07/20/2025 02:15 PM EST RP Assessment and Plan (1) Heart failure with preserved ejection fraction: Qualifiers: Heart failure chronicity: unspecified Qualified Code(s): I50.30 - Unspecified diastolic (congestive) heart failure Status: Acute Plan 74F PMH COPD, ALYSIA, CAD, obesity, chronic diastolic CHF, diabetes, paroxysmal AFib, chronic iron-deficiency anemia, tracheal stenosis status post trachplasty presented with sob acute COPD excerecation with penumonia and acute decompensation and acute on chronic diastolic CHF. CT chest shows multifocal pneumonia recent rhino/entro viral uri IV steroids,iv antibiotics , DuoNebs, IV Lasix, monitor electrolytes moniter i/o ,daily weights and tele pulm eval Paroxysmal AF Carvedilol, Cardizem, apixaban ag on ckd: moniter closely while on lasix. nephrology eval. CAD Apixaban, statin Chronic iron-deficiency anemia monitor, outpatient follow up DM insulin alysia not tolerant of cpap dvt prophylaxis - eliquis Patient will benefit from at least 2 midnight stay considering acute COPD excerecation with penumonia and acute decompensation and acute on chronic diastolic CHF- need iv antibiotics, IV Lasix, I&O monitoring as well as renal function electrolyte monitoring. Above management discussed with the patient in detail length as well as her daughter at the bedside, they both understand and in agreement with the above plan, time spent 70 minute ,patient is full code. Quality Stroke Does the patient have a stroke diagnosis?: No VTE Prior VTE?: No VTE Risk Level:: Medical - moderate - high VTE Device Contraindication: N/A - Device Ordered VTE Drug Contraindication: N/A - Med Ordered
[2025-07-20 15:14] LABS: Venous Blood Gas Refer to POC result
[2025-07-20 15:15] LABS: VBG HCO3 29 mmol/L (22-26); VBG O2 % Saturation 85.0 %
[2025-07-20] MEDS: Albuterol/Iprat 2.5/0.5MG 3 ML AMPUL.NEB INHALE ×4 (15:22→22:53)
[2025-07-20 15:25] LABS: ~Lactic Acid-LAB USE ONLY 1.8 mmol/L (0.5-2.0)
[2025-07-20 15:31] LABS: Troponin-I High Sensitivity 17.0 ng/L (<3.5-17.0)
[2025-07-20 16:38] LABS: Appearance Urine Clear; Glucose Urine UA 500 mg/dL (Negative); PH 5.0 (5.0-9.0); Specific Gravity - Urine 1.010 (1.005-1.025)
--- NOTE | 2025-07-20 16:41 | PHA.MEDREC ---
Addendum entered by Jose Sow, PharmD 07/20/25 17:31: MED REC CHECKED BY [facility] Original Note: Pharmacy Consult ? Medication Reconciliation Pharmacy has completed the medication reconciliation. Spoke with pt and he was a poor historian with her medications at this time; was able to confirm Lantus 25 units at bedtime and Humalog 1 per sliding scale 1 TIDAC and asked us to call her daughter Rachana ([phone]). Called and spoke with pt daughter and she confirmed pt was just discharged with us yesterday ([id number]) and nothing has been changed; pt was started on Azithromycin and Prednisone; pt finished the Azithromycin this morning and took 2 pills of Prednisone this morning, she did not start the other medications prescribed to her yesterday (Dicyclomine, Docusate or Miralax) and pt daughter confirmed pt taking Lantus 25 units at bedtime, Humalog 1 TIDAC per sliding scale and pt Ozempic once a week on Sundays (pt last took that 07/08).
[2025-07-20 17:20] LABS: Glucose, Whole Blood 217 mg/dL (60-115)
--- OUTSIDE RECORDS SUMMARY | 2025-07-20 17:38 | XMS_ITS | Data Portability ---
Author Organization [place] [facility] Address [address] [place] [id number] Care Team Providers Care Converting Operator Name Role Phone EMILY HINOJOSA Primary Care Provider [phone] Assessment Encounter Date Assessment Date Assessment LastModified [...] were drawn on scene to send to [facility]- INR, CBC with diff, CR, lytes,BUN glucose, ESR and CRP. Pt's daughter was not present during visit to discuss going to the ED. Pt was ambulatory at completion of visit. Labs were delivered to [facility] at the main campus via [...] Go To The Location Of Their Choice, [address] 12:39:18 CBC w/ auto diff 2020 KODI [facility] (Centralized Electronic Ordering - All Locations), Patient Can Go To The Location Of Their Choice, 12:32:11 erythrocy te sedimenta tion rate by nory tobar method - [facility] 2020 vidhya [facility] (Centralized Electronic Ordering [...] Go To The Location Of Their Choice, [address] 12/11/2020 13:00:22 12/12/1912/11/2020 elect rolyt e panel , serum sodium 140 mmol/ L (133-1 45) Not Available [facility] (Centralized Electronic Ordering - All Locations) Patient Can Go To The Location Of Their Choice, [address] 12/11/2020 13:00:25 12/12/1912/11/2020 elect rolyt e panel , serum potassium 4.1 mmol/ L (3.6-5 .2) Not Available [facility] (Centralized Electronic Ordering - All Locations) Patient Can Go To The Location Of Their Choice, [address] 12/11/2020 13:00:25 12/12/1912/11/2020 elect rolyt e panel , serum chloride 100 mmol/ L (98-10 7) Not Available [facility] (Centralized Electronic Ordering - All Locations) Patient Can Go To The Location Of Their Choice, [address] 12/11/2020 13:00:25 12/12/1912/11/2020 elect rolyt e panel , serum bicarbonate 31 mmol/ L (22-29 ) high Not Available [facility] (Centralized Electronic Ordering - All Locations) Patient Can Go To The Location Of Their Choice, [address] 12/11/2020 13:00:25 12/12/1912/11/2020 elect rolyt e panel , serum anion gap 9 (4-17) Not Available [facility] (Centralized Electronic Ordering - All Locations) Patient Can Go To The Location Of Their Choice, [facility] 12/11/2020 13:00:25 Result Notes None recorded. Procedures Surgical History Date Name Laterality Status Provider Name and Address Organization Details Recorded Time Cholecystectomy completed FELISA SMITH NP [address] [place], [address], [place] [facility] 12/11/2020 10:57:19 Imaging Results None recorded. Procedure Notes None recorded. Medical Equipment None Reported. Allergies Allergen ID Allergen Name Allergen Category Reaction Reaction Severity Criticality Documentation Date Start Date Code Code System Note Provider Name and Address Organization Details Recorded Time 930410 nystatin medicatio n rash Not available Not available 12/11/2020 7597 RxNorm FELISA LACKEY NP [address] [place], [address], [place] [facility] 10:54:28 088814 Substance with sulfonami de structure and antibacte rial mechanism of action (substanc e) medicatio n Not available Not available Not available 12/11/2020 78720 8003 SNOMED FELISA LACKEY, MESERET [address], [place], [address], [place] [facility] 10:54:42 Medications [...] /min 20 /min 158/70 mm[Hg] Not Available [facility] 1 10:58:40 Social History None recorded. [...] ICD10 Code Diagnosis IMO Codes Diagnosis Note [id number] FELISA LACKYE NP [facility] [address] [place] [address] 12/11/2020 10:52:43 12/12/2020 08:29:49 Headache 73959970 R51.9 Health Concerns Section Related Observation LastModified by Organization Detai ls LastModified Time None Recorded Concern Status LastModified by Organization Details LastModified Time None Recorded Advance Directives Directive None Recorded Payers Insurance Date Sequence Insurance Name Policy Number Policy Starr Covered Member ID Starr Member ID Guarantor Name 12/12/2020 1 [place] [facility] [id number] [facility] 12/11/2020 1 *SELF PAY* Saima Lauro [id number] Saima Lauro 12/12/2020 2 [place]MEDICARE [place]ACEMENT HMO) [id number] [facility] Lauro [id number] [facility] 12/12/2020 2 [place]MED[place]ARE [place]ACEMENT HMO) [id number] Saima Lauro [id number] [facility] La[facility] 12/12/2020 1 [place]MED[place]AC[place] HMO) [id number] Saima Lauro [id number] Saima Lauro 12/12/2020 2 [place] [facility] Lauro [id number] [facility] Notes Date Note Type Note Provider [...] head and neck. They went to the [facility]- negative CT head, neck but developed COPD [...] FELISA LACKEY, MESERET [address], [place], [address], [place] [facility] 12/11/2020 12:05:25 OBGyn Episode No OBEpisode recorded.
--- OUTSIDE RECORDS SUMMARY | 2025-07-20 17:38 | XMS_ITS | Clinical Summary ---
Author Organization [facility] Address [address] [place] [address] Care Team Providers Care Shell Mold Bonding Machine Operator Name Role Phone Unavailable Primary [...]
--- OUTSIDE RECORDS SUMMARY | 2025-07-20 17:39 | XMS_ITS | Patient Health Record ---
Author Organization [facility] Address [address] [place] [address] Care Team Providers Care Director Of Casino Marketing Name Role Phone Amanda Leiva MD Primary Care Provider Carol Senior Unavailable [phone] Allergies Allergen (clinical drug ingredient) Drug/Non Drug Allergy documented on EMR Reaction Allergy Type Onset Date Status sulfamethoxazole / trimethoprim Bactrim Unknown Drug Allergy Active nystatin Nystatin Unknown Drug Allergy Active Adhesive Unknown Allergy Active Latex Latex Unknown Allergy Active Reason For Referral No Information Medications Medication [...] between the toes; Duration: 30 days Active Jardiance Active Vitamin C [...] Problem Acquired hammer toe of right foot (0392455792688841 ) Other hammer toe(s) (acquired), right foot (M20.41) Active confirmed Problem Acquired hammer toe of left foot (5585036605060071 ) Other hammer toe(s) (acquired), left foot (M20.42) Active confirmed Problem Polyneuropathy due to type 2 diabetes mellitus (408146325) Type 2 diabetes mellitus with diabetic polyneuropathy (E11.42) Active confirmed Encounters Encounter Location Date Provider Diagnosis [facility] [address] [address] 09/08/2024 Carol Ayon [facility] [address] [address] 11/08/2024 Carol Ayon Plan Of Treatment No Information Insurance Providers Payer Name Payer Address Payer Phone Subscriber Number Group Number Insured Name Patient Relationship to Insured Coverage Start Date Coverage End Date [employer] Medicare Preferred [address] [place] [address] [phone] [id number] Saima Restrepo Self - patient is the [...]
--- OUTSIDE RECORDS SUMMARY | 2025-07-20 17:39 | XMS_ITS | Clinical Summary ---
Author Organization [facility] Address [address] [place] [address] Phone Care Team Providers Care Model Maker Apprentice Name Role Phone Garland Vázquez MD Primary Care Provider [phone] Immunizations Immunization Administration Dates Next Due Pfizer [...] patient's age to complete this topic Insurance [facility] Care Teams Model Maker Apprentice Relationship Specialty Start Date End Date Garland Vázquez MD [address] [place] [address] PCP - General Internal Medicine 05/11/25
[2025-07-20] MEDS: dilTIAZem HCL CD 300 MG CAP.ER.24H PO (17:55)
--- NOTE | 2025-07-20 18:51 | HO.NURTONUR ---
see admission worksheet
[2025-07-20 21:13] LABS: Glucose, Whole Blood 348 mg/dL (60-115)
[2025-07-20] MEDS: 0.9 % Sodium Chloride Flush 3 ML SYRINGE IVFLUSH (21:35)
[2025-07-20] MEDS: Ferrous Sulfate 324 MG TABLET.DR PO (21:41)
[2025-07-20] MEDS: Insulin Glargine,Hum.rec.anlog 100 UNIT/ML 10 ML VIAL 25 UNIT SUBCUT (21:51)
[2025-07-21] VITALS (17 sets, daily range): BP systolic 114–158; BP diastolic 48–68; PULSE 69–86; RESP 18–26; TEMP 36.3–37.4; O2SAT 91–95
[2025-07-21] MEDS: Albuterol/Iprat 2.5/0.5MG 3 ML AMPUL.NEB INHALE ×7 (04:02→22:50)
[2025-07-21 06:57] LABS: Glucose, Whole Blood 202 mg/dL (60-115)
[2025-07-21 07:51] LABS: Anion Gap 14 (12-20); Blood Urea Nitrogen 50 mg/dL (9-16); Calcium 8.0 mg/dL (8.4-10.2); Carbon Dioxide 25 mmol/L (22-29); Chloride 106 mmol/L (96-108); Creatinine Clr Calc Pharmacy 36.7; Estimated Glomerular Filt Rate 36; Potassium 3.7 mmol/L (3.3-5.1); Sodium 141 mmol/L (135-145)
[2025-07-21] MEDS: Ferrous Sulfate 324 MG TABLET.DR PO ×3 (08:43→21:30)
[2025-07-21] MEDS: dilTIAZem HCL CD 300 MG CAP.ER.24H PO (08:43)
[2025-07-21] MEDS: 0.9 % Sodium Chloride Flush 3 ML SYRINGE IVFLUSH ×3 (08:44→21:30)
[2025-07-21] MEDS: Furosemide 20 MG/2 ML VIAL IVPUSH (08:44)
[2025-07-21 09:43] LABS: VBG HCO3 26 mmol/L (22-26); VBG O2 % Saturation 81.0 %
[2025-07-21 09:44] LABS: Venous Blood Gas Refer to POC result
[2025-07-21] MEDS: Magnesium Sulfate/H2O 2 GM/50 ML PIGGYBACK IV (10:23)
[2025-07-21 11:06] LABS: Glucose, Whole Blood 306 mg/dL (60-115)
--- NOTE | 2025-07-21 15:54 | HO.PM.IMPN ---
Subjective Subjective Date of Service: 07/21/25 Interval History: copd , chf Review of Systems Shortness of breaths seems to be similar, she will short of breath with minimal exertion/talking in short sentences. Dry cough. Physical Exam Exam: Exam: Appearance: Alert.? Oriented X3.? . cvs: rrr, [id number] , no murmur res: air entry seems similar ,slightly diminshed /some wheezing abd: no rebound or guarding ,nt, bs present. ext pulses present , no cyanosis. neuro: axo3 , nonfocal. Vital Signs: Vital Signs: Last Vital Signs Temp 98.9 F 07/21/25 15:16 Pulse 76 07/21/25 15:47 Resp 18 07/21/25 15:47 BP 152/65 H 07/21/25 15:16 Pulse Ox 94 07/21/25 15:16 O2 Del Method Room Air 07/21/25 15:16 Oxygen Flow Rate 2 07/20/25 11:16 BMI result Body Mass Index 34.3 Objective Data Active Medications Acetaminophen (Acetaminophen 325 Mg Tablet) 650 mg PO Q6H PRN PRN Reason: Pain, Mild 1-3,fever,headache Albuterol/Ipratropium (Albuterol/Iprat 2.5/0.5mg 3 Ml Ampul.Neb) 3 ml INHALE Q3H PRN PRN Reason: sob Last Admin: 07/21/25 09:04 Dose: 3 ml Documented By: COURTNEY Albuterol/Ipratropium (Albuterol/Iprat 2.5/0.5mg 3 Ml Ampul.Neb) 3 ml INHALE RQ4H [facility] Last Admin: 07/21/25 15:47 Dose: 3 ml Documented By: COURTNEY Apixaban (Apixaban 5 Mg Tablet) 5 mg PO BID [facility] Last Admin: 07/21/25 08:43 Dose: 5 mg Documented By: GILSON Atorvastatin Calcium (Atorvastatin Calcium 80 Mg Tablet) 80 mg PO BEDTIME [facility] Last Admin: 07/20/25 21:40 Dose: 80 mg Documented By: BECK Buspirone HCl (Buspirone Hcl 10 Mg Tablet) 10 mg PO BID [facility] Last Admin: 07/21/25 08:43 Dose: 10 mg Documented By: GILSON Calcium Carbonate (Calcium Carbonate 750 Mg Tab.Chew) 750 mg PO Q4H PRN PRN Reason: Heartburn Carvedilol (Carvedilol 12.5 Mg Tablet) 12.5 mg PO BID [facility]; Protocol Last Admin: 07/21/25 08:43 Dose: 12.5 mg Documented By: GILSON Dextrose (Dextrose 50 % 25 Gm/50 Ml Syringe) 25 gm IVPUSH Q15M PRN; Protocol PRN Reason: per Hypoglycemia Standing Ord. Diltiazem HCl (Diltiazem Hcl Cd 300 Mg Cap.Er.24h) 300 mg PO DAILY [facility]; Protocol Last Admin: 07/21/25 08:43 Dose: 300 mg Documented By: GILSON Escitalopram Oxalate (Escitalopram Oxalate 10 Mg Tablet) 15 mg PO DAILY [facility] Last Admin: 07/21/25 08:43 Dose: 15 mg Documented By: GILSON Famotidine (Famotidine 20 Mg Tablet) 20 mg PO DAILY PRN PRN Reason: GERD/Acid Reflux Ferrous Sulfate (Ferrous Sulfate 324 Mg Tablet.Dr) 324 mg PO TID [facility] Last Admin: 07/21/25 08:43 Dose: 324 mg Documented By: GILSON Furosemide (Furosemide 20 Mg/2 Ml Vial) 20 mg IVPUSH DAILY [facility]; Protocol Last Admin: 07/21/25 08:44 Dose: 20 mg Documented By: GILSON Glucose (Glucose Gel 15 Gm Gel..Gram.) 15 gm PO Q15M PRN; Protocol PRN Reason: per Hypoglycemia Standing Ord. Guaifenesin (Guaifenesin 200 Mg/10 Ml 10 Ml Liquid) 10 ml PO Q4H PRN PRN Reason: Cough Doxycycline Hyclate 100 mg/ (Sodium Chloride) 250 mls @ 166.67 mls/hr IV BID [facility] Last Infusion: 07/21/25 10:22 Dose: Infused Documented By: GILSON Ceftriaxone Sodium 1 gm/ (Sodium Chloride) 50 mls @ 100 mls/hr IV Q24H [facility] Last Infusion: 07/21/25 12:36 Dose: Infused Documented By: GILSON Insulin Glargine (Insulin Glargine,Hum.Rec.Anlog 100 Unit/Ml 10 Ml Vial) 25 unit SUBCUT BEDTIME [facility] Last Admin: 07/20/25 21:51 Dose: 25 unit Documented By: BECK Insulin Human Lispro (Insulin Lispro 100 Unit/Ml 3 Ml Vial) 0 unit SUBCUT QIDACHS [facility]; Protocol Last Admin: 07/21/25 11:57 Dose: 8 unit Documented By: GILSON Loratadine (Loratadine 10 Mg Tablet) 10 mg PO DAILY [facility] Last Admin: 07/21/25 08:43 Dose: 10 mg Documented By: GILSON Magnesium Hydroxide (Milk Of Magnesia 30 Ml Oral.Susp) 30 ml PO DAILY PRN PRN Reason: Constipation Meclizine HCl (Meclizine Hcl 12.5 Mg Tablet) 12.5 mg PO TID PRN PRN Reason: dizziness Melatonin (Melatonin 3 Mg Tablet) 6 mg PO BEDTIME PRN PRN Reason: Insomnia Methylprednisolone Sodium Succinate (Methylprednisolone Sod Succ 40 Mg/Ml Vial) 40 mg IVPUSH BID [facility] Last Admin: 07/21/25 08:44 Dose: 40 mg Documented By: GILSON Montelukast Sodium (Montelukast Sodium 10 Mg Tablet) 10 mg PO BEDTIME [facility] Last Admin: 07/20/25 21:40 Dose: 10 mg Documented By: BECK Nitroglycerin (Nitroglycerin 0.4 Mg Tab.Subl) 0.4 mg SUBLINGUAL Q5M PRN PRN Reason: chest pain Pantoprazole Sodium (Pantoprazole Sodium 20 Mg Tablet.Dr) 40 mg PO DAILY@0630 [facility] Last Admin: 07/21/25 06:47 Dose: 40 mg Documented By: BECK Sodium Chloride (0.9 % Sodium Chloride Flush 3 Ml Syringe) 3 ml IVFLUSH QSHIFT [facility] Last Admin: 07/21/25 08:44 Dose: 3 ml Documented By: GILSON Vitamin D (Cholecalciferol (Vitamin D3) 25 Mcg Tablet) 25 mcg PO DAILY [facility] Last Admin: 07/21/25 08:43 Dose: 25 mcg Documented By: GILSON Labs 07/20/25 12:15 07/21/25 07:25 Labs: Laboratory Results - last 24 hr 07/20/25 07/20/25 07/20/25 16:26 17:16 21:09 VBG pH VBG pCO2 VBG pO2 VBG HCO3 VBG O2 Saturation VBG Base Excess Anion Gap Estim Creat Clear Calc Estimated GFR POC Glucose 217 H 348 H Random Glucose Calcium NT-Pro-B Natriuret Pep Urine Color Yellow Urine Appearance Clear Urine pH 5.0 Ur Specific [place] 1.010 Urine Protein Negative Urine Glucose (UA) 500 H Urine Ketones Negative Urine Blood Negative Urine Nitrite Negative Ur Leukocyte Esterase Negative 07/21/25 07/21/25 07/21/25 06:53 07:25 09:37 VBG pH 7.46 H VBG pCO2 36 VBG pO2 57 VBG HCO3 26 VBG O2 Saturation 81.0 VBG Base Excess 2.7 Anion Gap 14 Estim Creat Clear Calc 36.7 Estimated GFR 36 POC Glucose 202 H Random Glucose 209 H Calcium 8.0 L D NT-Pro-B Natriuret Pep 964.6 H Urine Color Urine Appearance Urine pH Ur Specific [place] Urine Protein Urine Glucose (UA) Urine Ketones Urine Blood Urine Nitrite Ur Leukocyte Esterase 07/21/25 11:03 VBG pH VBG pCO2 VBG pO2 VBG HCO3 VBG O2 Saturation VBG Base Excess Anion Gap Estim Creat Clear Calc Estimated GFR POC Glucose 306 H Random Glucose Calcium NT-Pro-B Natriuret Pep Urine Color Urine Appearance Urine pH Ur Specific [place] Urine Protein Urine Glucose (UA) Urine Ketones Urine Blood Urine Nitrite Ur Leukocyte Esterase Microbiology Microbiology Results: Microbiology 07/20/25 12:15 Blood Culture - Preliminary Blood - Venous No growth after 24 hours. 07/20/25 12:15 Blood Culture - Preliminary Blood - Venous No growth after 24 hours. Assessment and Plan (1) Asthma exacerbation in COPD: Status: Acute Plan 74F PMH COPD, ALYSIA, CAD, obesity, chronic diastolic CHF, diabetes, paroxysmal AFib, chronic iron-deficiency anemia, tracheal stenosis status post trachplasty presented with sob acute COPD excerecation with penumonia and acute decompensation and acute on chronic diastolic CHF. CT chest shows multifocal pneumonia recent rhino/entro viral uri IV steroids,iv antibiotics , DuoNebs, IV Lasix, monitor electrolytes moniter i/o ,daily weights and tele pulm eval pending Paroxysmal AF Carvedilol, Cardizem, apixaban vincent on ckd: moniter closely while on lasix. nephrology eval. CAD Apixaban, statin Chronic iron-deficiency anemia monitor, outpatient follow up DM insulin alysia not tolerant of cpap dvt prophylaxis - eliquis ongoing need for stay: considering acute COPD excerecation with penumonia and acute decompensation and acute on chronic diastolic CHF- need iv antibiotics, IV Lasix, I&O monitoring as well as renal function electrolyte monitoring. Quality Stroke Does the patient have a stroke diagnosis?: No VTE Prior VTE?: No VTE Risk Level:: Medical - moderate - high VTE Device Contraindication: N/A - Device Ordered VTE Drug Contraindication: N/A - Med Ordered
--- NOTE | 2025-07-21 16:27 | MHC.CM.PN ---
Addendum entered by Vane Quinteros 07/22/25 14:49: CM MET WITH PT TO DISCUSS DCP SHE IS NOW AWARE REHAB HAS BEEN RECOMMENDED SHE STATES SHE IS NOT GOING TO A SNF, SHE IS AGREEABLE TO [facility], [facility] PREFERRED Original Note: PT REPORTS SHE LIVES WITH HER DAUGHTER AND GRANDSON AND IS INDEPENDENT WITH [employer] [facility], FAMILY HELPS PRN SHE HAS A WALKER AND CPAP FOR DME HCP ON FILE PCP: YAJAIRA MANRIQUEZ IMM DELIVERED DCP: [facility]
[2025-07-21 16:29] LABS: Glucose, Whole Blood 326 mg/dL (60-115)
[2025-07-21 21:16] LABS: Glucose, Whole Blood 313 mg/dL (60-115)
[2025-07-21] MEDS: Insulin Glargine,Hum.rec.anlog 100 UNIT/ML 10 ML VIAL 25 UNIT SUBCUT (21:29)
[2025-07-21] MEDS: guaiFENesin 200 MG/10 ML 10 ML LIQUID PO (21:30)
--- NOTE | 2025-07-21 23:25 | PM.CNPUL ---
History of Present Illness History of Present Illness Consult date: 07/21/25 Chief complaint: copd execerbation Narrative: This is a pulmonary consultation. 4-year-old female with a complex medical history including asthma, COPD, peripheral artery disease (s/p cardiac catheterization), coronary artery disease, heart failure with preserved ejection fraction, diabetes mellitus with diabetic neuropathy, GERD, lower extremity claudication, anxiety, depression, recent rhino/enterovirus infection(last admission and discharged 2 days back), and history of multiple pulmonary emboli on Eliquis: Patient came to the hospital because breathing worsened last night and again this morning, to the point that it woke her from sleep, he has also been wheezing. Denies any chest pain or nausea vomiting or abdominal pain currently, no fever or chills. I did review the CT personally ?RLL mass like consolidation. Will need outpt fu.+enterovirus Review of Systems Review of Systems: Respiratory: Positive for shortness of breath; patient notes worsening dyspnea since discharge. Cardiovascular: Positive for mild, central chest pain. Gastrointestinal: Denies nausea or vomiting. 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 Father No problems noted. Brother Substance use disorder Brother Substance use disorder Surgical History Surgical History History of carpal tunnel surgery History of cholecystectomy History of lobectomy of lung Status post tracheoplasty History of cardiac cath Social History Social History Household Members: Family Household Members Other:: 2 Housing: House Do you presently have visiting nurse or other home services: No Alcohol intake: current Alcohol intake frequency: holidays/special occasions only Alcohol type: wine Comment: tanvis Patient Tobacco Use Status: Former Tobacco user Tobacco use type: Cigarette Cigarettes Per Day: 10 Years Smoked: 3 stopped 1993 Smoked in Last 30 Days: No e-Cigarette/Vaping Use: Never Used Second Hand Smoke Exposure: Yes Use of substances other than those prescribed or required for medical reasons: No Currently Displaying Signs/Symptoms of Drug Intoxication Withdrawal: No Advance Directives: Yes Advance Directives on File: Yes Advance Directives Date on File: 06/29/23 Do you have a plan to hurt others: No Plan service: No Current occupational status: retired Cognitive needs: No Hearing needs: No Vision needs: No Meds Allergies Allergy/AdvReac Type Severity Reaction Status Date / Time Latex, Natural Rubber Allergy Severe blisters Verified 07/20/25 11:18 Sulfa (Sulfonamide Allergy Mild ITCHING, Verified 07/20/25 11:18 Antibiotics) (SULFA rash (SULFONAMIDE ANTIBIOTICS)) nystatin Allergy Unknown rash Verified 07/20/25 11:18 isosorbide (From Imdur) AdvReac Unknown HEADACHES, Verified 07/20/25 11:18 headache tizanidine AdvReac Unknown weakness, Verified 07/20/25 11:18 Hellucination Active Medications: Current Medications Acetaminophen (Acetaminophen 325 Mg Tablet) 650 mg PO Q6H PRN PRN Reason: Pain, Mild 1-3,fever,headache Albuterol/Ipratropium (Albuterol/Iprat 2.5/0.5mg 3 Ml Ampul.Neb) 3 ml INHALE Q3H PRN PRN Reason: sob Last Admin: 07/21/25 09:04 Dose: 3 ml Albuterol/Ipratropium (Albuterol/Iprat 2.5/0.5mg 3 Ml Ampul.Neb) 3 ml INHALE RQ4H LOU Last Admin: 07/21/25 22:50 Dose: 3 ml Apixaban (Apixaban 5 Mg Tablet) 5 mg PO BID LOU Last Admin: 07/21/25 21:30 Dose: 5 mg Atorvastatin Calcium (Atorvastatin Calcium 80 Mg Tablet) 80 mg PO BEDTIME [facility] Last Admin: 07/21/25 21:30 Dose: 80 mg Buspirone HCl (Buspirone Hcl 10 Mg Tablet) 10 mg PO BID [facility] Last Admin: 07/21/25 21:30 Dose: 10 mg Calcium Carbonate (Calcium Carbonate 750 Mg Tab.Chew) 750 mg PO Q4H PRN PRN Reason: Heartburn Carvedilol (Carvedilol 12.5 Mg Tablet) 12.5 mg PO BID [facility]; Protocol Last Admin: 07/21/25 21:30 Dose: 12.5 mg Dextrose (Dextrose 50 % 25 Gm/50 Ml Syringe) 25 gm IVPUSH Q15M PRN; Protocol PRN Reason: per Hypoglycemia Standing Ord. Diltiazem HCl (Diltiazem Hcl Cd 300 Mg Cap.Er.24h) 300 mg PO DAILY [facility]; Protocol Last Admin: 07/21/25 08:43 Dose: 300 mg Escitalopram Oxalate (Escitalopram Oxalate 10 Mg Tablet) 15 mg PO DAILY [facility] Last Admin: 07/21/25 08:43 Dose: 15 mg Famotidine (Famotidine 20 Mg Tablet) 20 mg PO DAILY PRN PRN Reason: GERD/Acid Reflux Ferrous Sulfate (Ferrous Sulfate 324 Mg Tablet.Dr) 324 mg PO TID [facility] Last Admin: 07/21/25 21:30 Dose: 324 mg Furosemide (Furosemide 20 Mg/2 Ml Vial) 20 mg IVPUSH DAILY [facility]; Protocol Last Admin: 07/21/25 08:44 Dose: 20 mg Glucose (Glucose Gel 15 Gm Gel..Gram.) 15 gm PO Q15M PRN; Protocol PRN Reason: per Hypoglycemia Standing Ord. Guaifenesin (Guaifenesin 200 Mg/10 Ml 10 Ml Liquid) 10 ml PO Q4H PRN PRN Reason: Cough Last Admin: 07/21/25 21:30 Dose: 10 ml Doxycycline Hyclate 100 mg/ (Sodium Chloride) 250 mls @ 166.67 mls/hr IV BID [facility] Last Admin: 07/21/25 21:29 Dose: 166.67 mls/hr Ceftriaxone Sodium 1 gm/ (Sodium Chloride) 50 mls @ 100 mls/hr IV Q24H [facility] Last Infusion: 07/21/25 12:36 Dose: Infused Insulin Glargine (Insulin Glargine,Hum.Rec.Anlog 100 Unit/Ml 10 Ml Vial) 25 unit SUBCUT BEDTIME [facility] Last Admin: 07/21/25 21:29 Dose: 25 unit Insulin Human Lispro (Insulin Lispro 100 Unit/Ml 3 Ml Vial) 0 unit SUBCUT QIDACHS [facility]; Protocol Last Admin: 07/21/25 21:29 Dose: 8 unit Loratadine (Loratadine 10 Mg Tablet) 10 mg PO DAILY [facility] Last Admin: 07/21/25 08:43 Dose: 10 mg Magnesium Hydroxide (Milk Of Magnesia 30 Ml Oral.Susp) 30 ml PO DAILY PRN PRN Reason: Constipation Meclizine HCl (Meclizine Hcl 12.5 Mg Tablet) 12.5 mg PO TID PRN PRN Reason: dizziness Melatonin (Melatonin 3 Mg Tablet) 6 mg PO BEDTIME PRN PRN Reason: Insomnia Methylprednisolone Sodium Succinate (Methylprednisolone Sod Succ 40 Mg/Ml Vial) 40 mg IVPUSH BID [facility] Last Admin: 07/21/25 21:29 Dose: 40 mg Montelukast Sodium (Montelukast Sodium 10 Mg Tablet) 10 mg PO BEDTIME [facility] Last Admin: 07/21/25 21:30 Dose: 10 mg Nitroglycerin (Nitroglycerin 0.4 Mg Tab.Subl) 0.4 mg SUBLINGUAL Q5M PRN PRN Reason: chest pain Pantoprazole Sodium (Pantoprazole Sodium 20 Mg Tablet.Dr) 40 mg PO DAILY@0630 [facility] Last Admin: 07/21/25 06:47 Dose: 40 mg Sodium Chloride (0.9 % Sodium Chloride Flush 3 Ml Syringe) 3 ml IVFLUSH QSHIFT [facility] Last Admin: 07/21/25 21:30 Dose: 3 ml Vitamin D (Cholecalciferol (Vitamin D3) 25 Mcg Tablet) 25 mcg PO DAILY [facility] Last Admin: 07/21/25 08:43 Dose: 25 mcg Home Medications ?Medication ?Instructions ?Recorded ?Confirmed ?Last Taken ?Type cholecalciferol (vitamin D3) 25 25 mcg PO DAILY 08/11/23 07/20/25 07/20/25 History mcg (1,000 unit) tablet albuterol sulfate 90 mcg/actuation 2 puff inhalation QID PRN 05/17/24 07/20/25 Unknown History aerosol inhaler SOB/wheezing budesonide-formoterol HFA 160 2 puff inhalation BID PRN SOB 05/17/24 07/20/25 Unknown History mcg-4.5 mcg/actuation aerosol inhaler (Symbicort) diltiazem HCl 300 mg 300 mg PO DAILY 07/16/25 07/20/25 07/20/25 History capsule,extended release 24 hr (Cartia XT) famotidine 20 mg tablet 20 mg PO DAILY PRN GERD/Acid Reflux 07/16/25 07/20/25 Unknown History insulin lispro 100 unit/mL 1 sliding scale dose subcut TIDAC 07/16/25 07/20/25 07/20/25 History subcutaneous pen (Humalog KwikPen (U-100) Insulin) pantoprazole 40 mg tablet,delayed 40 mg PO DAILY@0630 07/16/25 07/20/25 07/20/25 History release semaglutide 2 mg/dose (8 mg/3 mL) 2 mg subcut [facility] 07/16/25 07/20/25 07/08/25 History subcutaneous pen injector (Ozempic) Physical Exam Exam: Exam: Appearance: Alert.? Oriented X3.? . cvs: [id number], [id number] , no murmur res: air entry seems similar ,slightly diminshed /some wheezing abd: no rebound or guarding ,nt, bs present. ext pulses present , no cyanosis. neuro: axo3 , nonfocal. Vital Signs: Vital Signs: Last Vital Signs Temp 98.6 F 07/21/25 20:00 Pulse 74 07/21/25 22:51 Resp 19 07/21/25 22:51 BP 158/48 H 07/21/25 20:00 Pulse Ox 95 07/21/25 20:00 O2 Del Method CPAP 07/21/25 20:00 Oxygen Flow Rate 2 07/20/25 11:16 BMI result Body Mass Index 34.3 Results Laboratory Findings 07/20/25 12:15 07/21/25 07:25 Abnormal lab findings: Abnormal Labs 07/20/25 07/20/25 07/20/25 12:15 15:11 16:26 WBC 15.7 H Hgb 9.5 L Hct 31.8 L MCV 72.8 L MCH 21.7 L MCHC 29.9 L RDW 18.1 H Immature Gran % (Auto) 0.9 H Neut % (Auto) 87.4 H Lymph % (Auto) 4.5 L Lymph # (Auto) 0.7 L Abs Immat Gran (auto) 0.14 H Absolute Neuts (auto) 13.7 H VBG pH 7.47 H VBG HCO3 29 H BUN 59 H Creatinine 1.53 H POC Glucose Random Glucose 226 H Lactic Acid 4.0 H* Calcium Magnesium 2.7 H Troponin I High Sens 17.5 H NT-Pro-B Natriuret Pep 1196.1 H Urine Glucose (UA) 500 H 07/20/25 07/20/25 07/21/25 17:16 21:09 06:53 WBC Hgb Hct MCV MCH MCHC RDW Immature Gran % (Auto) Neut % (Auto) Lymph % (Auto) Lymph # (Auto) Abs Immat Gran (auto) Absolute Neuts (auto) VBG pH VBG HCO3 BUN Creatinine POC Glucose 217 H 348 H 202 H Random Glucose Lactic Acid Calcium Magnesium Troponin I High Sens NT-Pro-B Natriuret Pep Urine Glucose (UA) 07/21/25 07/21/25 07/21/25 07:25 09:37 11:03 WBC Hgb Hct MCV MCH MCHC RDW Immature Gran % (Auto) Neut % (Auto) Lymph % (Auto) Lymph # (Auto) Abs Immat Gran (auto) Absolute Neuts (auto) VBG pH 7.46 H VBG HCO3 BUN 50 H Creatinine 1.42 H POC Glucose 306 H Random Glucose 209 H Lactic Acid Calcium 8.0 L D Magnesium Troponin I High Sens NT-Pro-B Natriuret Pep 964.6 H Urine Glucose (UA) 07/21/25 07/21/25 16:12 21:08 WBC Hgb Hct MCV MCH MCHC RDW Immature Gran % (Auto) Neut % (Auto) Lymph % (Auto) Lymph # (Auto) Abs Immat Gran (auto) Absolute Neuts (auto) VBG pH VBG HCO3 BUN Creatinine POC Glucose 326 H 313 H Random Glucose Lactic Acid Calcium Magnesium Troponin I High Sens NT-Pro-B Natriuret Pep Urine Glucose (UA) Microbiology: Microbiology 07/20/25 12:15 Blood - Venous Blood Culture - Preliminary No growth after 24 hours. 07/20/25 12:15 Blood - Venous Blood Culture - Preliminary No growth after [address] scan - chest: report reviewed Additional studies: Assessment and Plan (1) Asthma exacerbation in COPD: Status: Acute (2) Pulmonary nodule: Status: Acute (3) Obstructive sleep apnea: Status: Acute (4) Hypoxia: Status: Acute Plan continue current therapy respiratory therapy APAP oxygen to keep pox 90-95% Repeat CT chest in 8 weeks Procedures Date of Service Date of Service: 07/21/25
[2025-07-22] VITALS (19 sets, daily range): BP systolic 141–174; BP diastolic 52–74; PULSE 68–82; RESP 16–20; TEMP 36.6–37.3; O2SAT 93–96
[2025-07-22] MEDS: Albuterol/Iprat 2.5/0.5MG 3 ML AMPUL.NEB INHALE ×6 (03:08→23:36)
[2025-07-22 07:45] LABS: Glucose, Whole Blood 180 mg/dL (60-115)
[2025-07-22] MEDS: Furosemide 20 MG/2 ML VIAL IVPUSH (09:00)
[2025-07-22] MEDS: Ferrous Sulfate 324 MG TABLET.DR PO ×3 (09:00→22:21)
[2025-07-22] MEDS: dilTIAZem HCL CD 300 MG CAP.ER.24H PO (09:01)
[2025-07-22] MEDS: 0.9 % Sodium Chloride Flush 3 ML SYRINGE IVFLUSH ×2 (09:01→15:26)
[2025-07-22] MEDS: Milk of Magnesia 30 ML ORAL.SUSP PO (09:15)
[2025-07-22] MEDS: guaiFEN/Codeine SF 200/20/10ML 10 ML LIQUID PO ×3 (10:30→17:19)
[2025-07-22] MEDS: Magnesium Sulfate/H2O 2 GM/50 ML PIGGYBACK IV (11:33)
[2025-07-22 11:39] LABS: Glucose, Whole Blood 216 mg/dL (60-115)
--- NOTE | 2025-07-22 13:24 | HO.PM.IMPN ---
Subjective Subjective Date of Service: 07/22/25 Interval History: copd/chf execerebation Review of Systems sob similar/unchanged from yesterday talking in short sentences aggressive cough Review of Systems: Yes all other systems are reviewed and are negative Physical Exam Exam: Exam: Appearance: Alert.? Oriented X3.? cvs: [id number], [id number] . res: air entry seems similar ,slightly diminshed /some wheezing abd: no rebound or guarding ,nt, bs present. ext pulses present , no cyanosis. neuro: axo3 , nonfocal. Vital Signs: Vital Signs: Last Vital Signs Temp 98.4 F 07/22/25 11:31 Pulse 82 07/22/25 11:31 Resp 18 07/22/25 11:31 BP 144/64 H 07/22/25 11:31 Pulse Ox 94 07/22/25 11:31 O2 Del Method Room Air 07/22/25 11:31 Oxygen Flow Rate 2 07/20/25 11:16 BMI result Body Mass Index 34.3 Objective Data Active Medications Acetaminophen (Acetaminophen 325 Mg Tablet) 650 mg PO Q6H PRN PRN Reason: Pain, Mild 1-3,fever,headache Last Admin: 07/22/25 09:15 Dose: 650 mg Documented By: GILSON Albuterol/Ipratropium (Albuterol/Iprat 2.5/0.5mg 3 Ml Ampul.Neb) 3 ml INHALE Q3H PRN PRN Reason: sob Last Admin: 07/21/25 09:04 Dose: 3 ml Documented By: COURTNEY Albuterol/Ipratropium (Albuterol/Iprat 2.5/0.5mg 3 Ml Ampul.Neb) 3 ml INHALE RQ4H [facility] Last Admin: 07/22/25 11:07 Dose: 3 ml Documented By: COURTNEY Apixaban (Apixaban 5 Mg Tablet) 5 mg PO BID [facility] Last Admin: 07/22/25 09:01 Dose: 5 mg Documented By: GILSON Atorvastatin Calcium (Atorvastatin Calcium 80 Mg Tablet) 80 mg PO BEDTIME [facility] Last Admin: 07/21/25 21:30 Dose: 80 mg Documented By: BILLIE Buspirone HCl (Buspirone Hcl 10 Mg Tablet) 10 mg PO BID [facility] Last Admin: 07/22/25 09:00 Dose: 10 mg Documented By: GILSON Calcium Carbonate (Calcium Carbonate 750 Mg Tab.Chew) 750 mg PO Q4H PRN PRN Reason: Heartburn Carvedilol (Carvedilol 12.5 Mg Tablet) 12.5 mg PO BID [facility]; Protocol Last Admin: 07/22/25 09:00 Dose: 12.5 mg Documented By: GILSON Dextrose (Dextrose 50 % 25 Gm/50 Ml Syringe) 25 gm IVPUSH Q15M PRN; Protocol PRN Reason: per Hypoglycemia Standing Ord. Diltiazem HCl (Diltiazem Hcl Cd 300 Mg Cap.Er.24h) 300 mg PO DAILY [facility]; Protocol Last Admin: 07/22/25 09:01 Dose: 300 mg Documented By: GILSON Escitalopram Oxalate (Escitalopram Oxalate 10 Mg Tablet) 15 mg PO DAILY [facility] Last Admin: 07/22/25 09:00 Dose: 15 mg Documented By: GILSON Famotidine (Famotidine 20 Mg Tablet) 20 mg PO DAILY PRN PRN Reason: GERD/Acid Reflux Ferrous Sulfate (Ferrous Sulfate 324 Mg Tablet.Dr) 324 mg PO TID [facility] Last Admin: 07/22/25 09:00 Dose: 324 mg Documented By: GILSON Furosemide (Furosemide 20 Mg/2 Ml Vial) 20 mg IVPUSH DAILY [facility]; Protocol Last Admin: 07/22/25 09:00 Dose: 20 mg Documented By: GILSON Glucose (Glucose Gel 15 Gm Gel..Gram.) 15 gm PO Q15M PRN; Protocol PRN Reason: per Hypoglycemia Standing Ord. Guaifenesin/Codeine Phosphate (Guaifen/Codeine Sf 200/20/10ml 10 Ml Liquid) 10 ml PO Q6H PRN PRN Reason: Cough Doxycycline Hyclate 100 mg/ (Sodium Chloride) 250 mls @ 166.67 mls/hr IV BID [facility] Last Infusion: 07/22/25 10:55 Dose: Infused Documented By: GILSON Ceftriaxone Sodium 1 gm/ (Sodium Chloride) 50 mls @ 100 mls/hr IV Q24H [facility] Last Infusion: 07/22/25 13:12 Dose: Infused Documented By: GILSON Insulin Glargine (Insulin Glargine,Hum.Rec.Anlog 100 Unit/Ml 10 Ml Vial) 25 unit SUBCUT BEDTIME [facility] Last Admin: 07/21/25 21:29 Dose: 25 unit Documented By: BILLIE Insulin Human Lispro (Insulin Lispro 100 Unit/Ml 3 Ml Vial) 0 unit SUBCUT QIDACHS [facility]; Protocol Last Admin: 07/22/25 11:33 Dose: 4 unit Documented By: GILSON Loratadine (Loratadine 10 Mg Tablet) 10 mg PO DAILY [facility] Last Admin: 07/22/25 09:01 Dose: 10 mg Documented By: GILSON Magnesium Hydroxide (Milk Of Magnesia 30 Ml Oral.Susp) 30 ml PO DAILY PRN PRN Reason: Constipation Last Admin: 07/22/25 09:15 Dose: 30 ml Documented By: GILSON Meclizine HCl (Meclizine Hcl 12.5 Mg Tablet) 12.5 mg PO TID PRN PRN Reason: dizziness Melatonin (Melatonin 3 Mg Tablet) 6 mg PO BEDTIME PRN PRN Reason: Insomnia Methylprednisolone Sodium Succinate (Methylprednisolone Sod Succ 40 Mg/Ml Vial) 40 mg IVPUSH TID [facility] Montelukast Sodium (Montelukast Sodium 10 Mg Tablet) 10 mg PO BEDTIME [facility] Last Admin: 07/21/25 21:30 Dose: 10 mg Documented By: BILLIE Nitroglycerin (Nitroglycerin 0.4 Mg Tab.Subl) 0.4 mg SUBLINGUAL Q5M PRN PRN Reason: chest pain Pantoprazole Sodium (Pantoprazole Sodium 20 Mg Tablet.Dr) 40 mg PO DAILY@0630 [facility] Last Admin: 07/22/25 05:43 Dose: 40 mg Documented By: BILLIE Sodium Chloride (0.9 % Sodium Chloride Flush 3 Ml Syringe) 3 ml IVFLUSH QSHIFT [facility] Last Admin: 07/22/25 09:01 Dose: 3 ml Documented By: GILSON Vitamin D (Cholecalciferol (Vitamin D3) 25 Mcg Tablet) 25 mcg PO DAILY [facility] Last Admin: 07/22/25 09:01 Dose: 25 mcg Documented By: GILSON Labs 07/20/25 12:15 07/21/25 07:25 Labs: Laboratory Results - last 24 hr 07/21/25 07/21/25 07/22/25 16:12 21:08 07:35 POC Glucose 326 H 313 H 180 H 07/22/25 11:30 POC Glucose 216 H Microbiology Microbiology Results: Microbiology 07/20/25 12:15 Blood Culture - Preliminary Blood - Venous No growth after 24 hours. 07/20/25 12:15 Blood Culture - Preliminary Blood - Venous No growth after 24 hours. Assessment and Plan (1) Asthma exacerbation in COPD: Status: Acute Plan 74F PMH COPD, ALYSIA, CAD, obesity, chronic diastolic CHF, diabetes, paroxysmal AFib, chronic iron-deficiency anemia, tracheal stenosis status post trachplasty presented with sob acute COPD excerecation with penumonia and acute decompensation and acute on chronic diastolic CHF. CT chest shows multifocal pneumonia recent rhino/entro viral uri moniter i/o(5.4/3.4) ,daily weights and tele pulm eval noted-continue current management plan: IV steroids,iv antibiotics , DuoNebs, IV Lasix, monitor electrolytes,added loratidine ,hycodan for cough in addition add extra nebs and magnesium iv Paroxysmal AF Carvedilol, Cardizem, apixaban vincent on ckd: moniter closely while on lasix. nephrology eval. CAD Apixaban, statin Chronic iron-deficiency anemia monitor, outpatient follow up DM insulin alysia not tolerant of cpap dvt prophylaxis - eliquis ongoing need for stay: considering acute COPD excerecation with penumonia and acute decompensation and acute on chronic diastolic CHF- need iv antibiotics, IV Lasix, I&O monitoring as well as renal function electrolyte monitoring. Quality Stroke Does the patient have a stroke diagnosis?: No VTE Prior VTE?: No VTE Risk Level:: Medical - moderate - high VTE Device Contraindication: N/A - Device Ordered VTE Drug Contraindication: N/A - Med Ordered
[2025-07-22 14:23] LABS: Anion Gap 15 (12-20); Blood Urea Nitrogen 44 mg/dL (9-16); Calcium 7.9 mg/dL (8.4-10.2); Carbon Dioxide 25 mmol/L (22-29); Chloride 102 mmol/L (96-108); Creatinine Clr Calc Pharmacy 37.5; Estimated Glomerular Filt Rate 37; Potassium 4.2 mmol/L (3.3-5.1); Sodium 138 mmol/L (135-145)
[2025-07-22 16:00] LABS: Glucose, Whole Blood 249 mg/dL (60-115)
[2025-07-22 17:52] LABS: Alanine Aminotransferase 22 U/L (0-31); Albumin Level 3.3 g/dL (3.5-5.0); Alkaline Phosphatase 81 U/L (39-117); Aspartate Amino Transferase 22 U/L (5-31); Lipase 48 U/L (8-78); Total Protein 5.8 g/dL (6.5-8.0)
[2025-07-22 21:29] LABS: Glucose, Whole Blood 252 mg/dL (60-115)
[2025-07-22] MEDS: Insulin Glargine,Hum.rec.anlog 100 UNIT/ML 10 ML VIAL 25 UNIT SUBCUT (22:19)
[2025-07-23] VITALS (18 sets, daily range): BP systolic 115–152; BP diastolic 55–74; PULSE 69–83; RESP 16–20; TEMP 36.5–37; O2SAT 92–99
[2025-07-23] MEDS: guaiFEN/Codeine SF 200/20/10ML 10 ML LIQUID PO ×3 (03:15→15:19)
[2025-07-23] MEDS: Albuterol/Iprat 2.5/0.5MG 3 ML AMPUL.NEB INHALE ×6 (04:21→23:16)
[2025-07-23 07:55] LABS: Anion Gap 11 (12-20); Blood Urea Nitrogen 38 mg/dL (9-16); Calcium 7.9 mg/dL (8.4-10.2); Carbon Dioxide 29 mmol/L (22-29); Chloride 102 mmol/L (96-108); Creatinine Clr Calc Pharmacy 45.0; Estimated Glomerular Filt Rate 45; Potassium 3.7 mmol/L (3.3-5.1); Sodium 138 mmol/L (135-145)
[2025-07-23 08:15] LABS: Glucose, Whole Blood 167 mg/dL (60-115)
[2025-07-23] MEDS: 0.9 % Sodium Chloride Flush 3 ML SYRINGE IVFLUSH ×3 (09:39→21:24)
[2025-07-23] MEDS: Ferrous Sulfate 324 MG TABLET.DR PO ×3 (09:39→21:22)
[2025-07-23] MEDS: dilTIAZem HCL CD 300 MG CAP.ER.24H PO (09:39)
[2025-07-23] MEDS: Furosemide 20 MG/2 ML VIAL IVPUSH (09:40)
[2025-07-23 11:48] LABS: Glucose, Whole Blood 207 mg/dL (60-115)
--- NOTE | 2025-07-23 14:56 | P.CDIM_ITS ---
PROVIDER RESPONSE TEXT: To clarify, the appropriate diagnosis supported by the clinical indicators: Acute Lactic acidosis QUERY TEXT: PHYSICIAN'S DOCUMENTATION REQUEST Date of Query: 07/23/2025 10:57 AM EST Patient Name: Saima Restrepo Admit Date: 07/21/2025 Dear Kenrick Millard MD, A review of the medical record indicates additional documentation may be needed. Please review below and update the documentation accordingly. Clinical Indicators: LABS: Lactic acid 4.0 Based on the above, is there a diagnosis that correlates with these labs? Acute Lactic acidosis Chronic Lactic acidosis Other diagnosis that relates to these labs Other (explain) Clinically unable to determine (explain) Thank you, Angella Stern, CCS, CDIS Use of terms such as suspected, likely, concern for, or probable (associated with a specific diagnosis that is being evaluated, monitored, or treated as if it exists) are acceptable and can be coded in the inpatient setting, when documented at the time of discharge. Please use your independent medical judgment in providing your response. THIS QUERY IS PART OF THE PERMANENT MEDICAL RECORD
--- NOTE | 2025-07-23 15:03 | P.PNIM_ITS ---
Subjective Subjective Date of Service: 07/23/25 Interval History: COPD/CHF Review of Systems Still significant short of breath with mg exertion even with sitting Has wheezing Aggressive cough Also has some abdominal discomfort-says last time BM was on , this afternoon she 1st small BM Review of Systems: Yes all other systems are reviewed and are negative Physical Exam 2 Exam: Exam: Appearance: Alert.? Oriented X3.? . cvs: rrr, [id number] , no murmur res: air entry seems similar ,slightly diminshed /some wheezing abd: no rebound or guarding ,nt, bs present. ext pulses present , no cyanosis. neuro: axo3 , nonfocal. Vital Signs: Vital Signs: Last Vital Signs Temp 97.7 F 07/23/25 12:00 Pulse 76 07/23/25 12:00 Resp 20 07/23/25 12:00 BP 150/55 H 07/23/25 12:00 Pulse Ox 94 07/23/25 14:04 O2 Del Method Room Air 07/23/25 12:00 Oxygen Flow Rate 2 07/20/25 11:16 BMI result Body Mass Index 34.3 Objective Data Active Medications Acetaminophen (Acetaminophen 325 Mg Tablet) 650 mg PO Q6H PRN PRN Reason: Pain, Mild 1-3,fever,headache Last Admin: 07/22/25 15:26 Dose: 650 mg Documented By: GILSON Albuterol/Ipratropium (Albuterol/Iprat 2.5/0.5mg 3 Ml Ampul.Neb) 3 ml INHALE Q3H PRN PRN Reason: sob Last Admin: 07/21/25 09:04 Dose: 3 ml Documented By: COURTNEY Albuterol/Ipratropium (Albuterol/Iprat 2.5/0.5mg 3 Ml Ampul.Neb) 3 ml INHALE RQ4H [facility] Last Admin: 07/23/25 11:12 Dose: 3 ml Documented By: DAY Apixaban (Apixaban 5 Mg Tablet) 5 mg PO BID [facility] Last Admin: 07/23/25 09:38 Dose: 5 mg Documented By: GILSON Atorvastatin Calcium (Atorvastatin Calcium 80 Mg Tablet) 80 mg PO BEDTIME [facility] Last Admin: 07/22/25 22:21 Dose: 80 mg Documented By: CARLOS Buspirone HCl (Buspirone Hcl 10 Mg Tablet) 10 mg PO BID [facility] Last Admin: 07/23/25 09:39 Dose: 10 mg Documented By: GILSON Calcium Carbonate (Calcium Carbonate 750 Mg Tab.Chew) 750 mg PO Q4H PRN PRN Reason: Heartburn Carvedilol (Carvedilol 12.5 Mg Tablet) 12.5 mg PO BID [facility]; Protocol Last Admin: 07/23/25 09:38 Dose: 12.5 mg Documented By: GILSON Dextrose (Dextrose 50 % 25 Gm/50 Ml Syringe) 25 gm IVPUSH Q15M PRN; Protocol PRN Reason: per Hypoglycemia Standing Ord. Diltiazem HCl (Diltiazem Hcl Cd 300 Mg Cap.Er.24h) 300 mg PO DAILY [facility]; Protocol Last Admin: 07/23/25 09:39 Dose: 300 mg Documented By: GILSON Docusate Sodium (Docusate Sodium 100 Mg Capsule) 100 mg PO BID PRN PRN Reason: Constipation Escitalopram Oxalate (Escitalopram Oxalate 10 Mg Tablet) 15 mg PO DAILY [facility] Last Admin: 07/23/25 09:38 Dose: 15 mg Documented By: GILSON Famotidine (Famotidine 20 Mg Tablet) 20 mg PO DAILY PRN PRN Reason: GERD/Acid Reflux Ferrous Sulfate (Ferrous Sulfate 324 Mg Tablet.Dr) 324 mg PO TID [facility] Last Admin: 07/23/25 09:39 Dose: 324 mg Documented By: GILSON Furosemide (Furosemide 20 Mg/2 Ml Vial) 20 mg IVPUSH DAILY [facility]; Protocol Last Admin: 07/23/25 09:40 Dose: 20 mg Documented By: GILSON Glucose (Glucose Gel 15 Gm Gel..Gram.) 15 gm PO Q15M PRN; Protocol PRN Reason: per Hypoglycemia Standing Ord. Guaifenesin/Codeine Phosphate (Guaifen/Codeine Sf 200/20/10ml 10 Ml Liquid) 10 ml PO Q6H PRN PRN Reason: Cough Last Admin: 07/23/25 09:38 Dose: 10 ml Documented By: GILSON Doxycycline Hyclate 100 mg/ (Sodium Chloride) 250 mls @ 166.67 mls/hr IV BID [facility] Last Infusion: 07/23/25 11:59 Dose: Infused Documented By: GILSON Ceftriaxone Sodium 1 gm/ (Sodium Chloride) 50 mls @ 100 mls/hr IV Q24H [facility] Last Infusion: 07/23/25 14:11 Dose: Infused Documented By: GILSON Insulin Glargine (Insulin Glargine,Hum.Rec.Anlog 100 Unit/Ml 10 Ml Vial) 25 unit SUBCUT BEDTIME [facility] Last Admin: 07/22/25 22:19 Dose: 25 unit Documented By: CARLOS Insulin Human Lispro (Insulin Lispro 100 Unit/Ml 3 Ml Vial) 0 unit SUBCUT QIDACHS [facility]; Protocol Last Admin: 07/23/25 13:30 Dose: 4 unit Documented By: GILSON Loratadine (Loratadine 10 Mg Tablet) 10 mg PO DAILY [facility] Last Admin: 07/23/25 09:38 Dose: 10 mg Documented By: GILSON Magnesium Hydroxide (Milk Of Magnesia 30 Ml Oral.Susp) 30 ml PO DAILY PRN PRN Reason: Constipation Last Admin: 07/22/25 09:15 Dose: 30 ml Documented By: GILSON Meclizine HCl (Meclizine Hcl 12.5 Mg Tablet) 12.5 mg PO TID PRN PRN Reason: dizziness Melatonin (Melatonin 3 Mg Tablet) 6 mg PO BEDTIME PRN PRN Reason: Insomnia Methylprednisolone Sodium Succinate (Methylprednisolone Sod Succ 40 Mg/Ml Vial) 40 mg IVPUSH TID [facility] Last Admin: 07/23/25 09:38 Dose: 40 mg Documented By: GILSON Montelukast Sodium (Montelukast Sodium 10 Mg Tablet) 10 mg PO BEDTIME [facility] Last Admin: 07/22/25 22:20 Dose: 10 mg Documented By: CARLOS Nitroglycerin (Nitroglycerin 0.4 Mg Tab.Subl) 0.4 mg SUBLINGUAL Q5M PRN PRN Reason: chest pain Pantoprazole Sodium (Pantoprazole Sodium 20 Mg Tablet.Dr) 40 mg PO BID@0630,1630 [facility] Last Admin: 07/23/25 06:00 Dose: 40 mg Documented By: CARLOS Polyethylene Glycol (Polyethylene Glycol 3350 17 Gm Powd.Pack) 17 gm PO BID PRN PRN Reason: Constipation Sodium Biphosphate/Sodium Phosphate (Sodium Phosphate,[place]-Dibasic 133 Ml Enema) 133 ml DC ONCE PRN PRN Reason: Constipation Sodium Chloride (0.9 % Sodium Chloride Flush 3 Ml Syringe) 3 ml IVFLUSH QSHIFT [facility] Last Admin: 07/23/25 09:39 Dose: 3 ml Documented By: GILSON Vitamin D (Cholecalciferol (Vitamin D3) 25 Mcg Tablet) 25 mcg PO DAILY [facility] Last Admin: 07/23/25 09:38 Dose: 25 mcg Documented By: GILSON Labs 07/20/25 12:15 07/23/25 07:12 Labs: Laboratory Results - last 24 hr 07/22/25 07/22/25 07/22/25 13:46 15:54 21:26 Anion Gap Estim Creat Clear Calc Estimated GFR POC Glucose 249 H 252 H Random Glucose Calcium Total Bilirubin 0.3 Direct Bilirubin 0.1 AST 22 ALT 22 Alkaline Phosphatase 81 Total Protein 5.8 L Albumin 3.3 L Lipase 48 07/23/25 07/23/25 07/23/25 07:12 08:11 11:33 Anion Gap 11 L Estim Creat Clear Calc 45.0 Estimated GFR 45 POC Glucose 167 H 207 H Random Glucose 168 H Calcium 7.9 L Total Bilirubin Direct Bilirubin AST ALT Alkaline Phosphatase Total Protein Albumin Lipase Microbiology Microbiology Results: Microbiology 07/20/25 12:15 Blood Culture - Preliminary Blood - Venous No growth after 48 hours. 07/20/25 12:15 Blood Culture - Preliminary Blood - Venous No growth after 48 hours. Assessment and Plan (1) Asthma exacerbation in COPD: Status: Acute Plan 74F PMH COPD, ALYSIA, CAD, obesity, chronic diastolic CHF, diabetes, paroxysmal AFib, chronic iron-deficiency anemia, tracheal stenosis status post trachplasty presented with sob acute COPD excerecation with penumonia and acute decompensation and acute on chronic diastolic CHF. CT chest shows multifocal pneumonia recent rhino/entro viral uri moniter i/o(5.4/3.4) ,daily weights and tele pulm eval noted-continue current management plan: IV steroids,iv antibiotics , DuoNebs, IV Lasix, monitor electrolytes,added loratidine ,hycodan for cough Monitor I&O, daily weights Discussed with the Pulmonary-currently we will continue IV Lasix and steroids and nebs. Acute lactic acidosis: Probably secondary to nebs, repeated lactic acid- seems to be improved. Paroxysmal AF Carvedilol, Cardizem, apixaban vincent on ckd: moniter closely while on lasix. nephrology eval. CAD Apixaban, statin Chronic iron-deficiency anemia monitor, outpatient follow up DM insulin alysia not tolerant of cpap Morbid obesity: Encouraged to lose weight, cutdown calories Generalized weak: Seen by PT recommended inpatient pulmonary rehab. dvt prophylaxis - eliquis ongoing need for stay: considering acute COPD excerecation with penumonia and acute decompensation and acute on chronic diastolic CHF- need iv antibiotics, IV Lasix, I&O monitoring as well as renal function electrolyte monitoring. Quality Stroke Does the patient have a stroke diagnosis?: No VTE Prior VTE?: No VTE Risk Level:: Medical - moderate - high VTE Device Contraindication: N/A - Device Ordered VTE Drug Contraindication: N/A - Med Ordered
[2025-07-23 15:29] LABS: Glucose, Whole Blood 241 mg/dL (60-115)
--- NOTE | 2025-07-23 15:57 | HO.WOUND ---
Wound Consult: Initial 74yr old?female admitted to [facility] on 07/21/25 - See progress notes and H&P for detailed history.? Wound consult placed for Buttock redness.? Patient agreeable to assessment and photo documentation.? Patient reports baseline incontinence suspect Stress Incontinence based on patient self report. Patient reports tenderness to sacrum due to decreased activity prior to admission. Sacrum Sacrum and Gluteal Fold Etiology: ?Deep Tissue Injury - ?Present on Admission Measurements: 1.2cm x 4cm x 0cm Wound Bed: intact red and dark maroon hyperpigmented tissue nonblanchable Drainage / Odor: None Edges: ? irregular Meg wound: red pink blanchable tissue - MASD noted to perineal area ? No Induration, Fluctuance or Warmth noted Pain: tenderness noted to sacrum Goals of Treatment: ? Off Load Pressure Purewick adjusted to sit within the labia majora - in an effort to capture urine as she was wet with urine despite purewick in use. Peripad with mesh panties in place for urine absorption - changed and direct care team will monitor for effectiveness. Recommend barrier cream to perineal area. Bilateral Heels assessed for intact dry heels no redness noted - recommend preventative measures be applied such as off loading with pillows and or foam dressing application. Recommendations: 1. Turn and Reposition every 2 hours and as needed for patient comfort.? Use pillows or wedges to support off loading positions. 2. Off Load all bony prominences with use of pillows and heel boots if needed.? Apply Preventative foams where needed. ? 3. Monitor for incontinence and moisture control, use barrier creams when needed for prevention and treatment. 4. Provide adequate and supplemental nutrition.? 5. Order low air loss mattress. 6. When applicable maintain blood glucose levels per Providers order. Sacrum? - Off Load Pressure with Q2 hr turns and use of pillows - Routine cleansing.? Apply skin prep allow to dry.? Cover with foam dressing to aid in off loading and protection from friction. Change every 3 days and PRN. Perineal - Cleanse with PH balance spray or wipes, pat dry. ?Apply thin layer of barrier cream to affected area.? Apply twice daily and Reapply thin layer PRN after each episode of incontinence. Bilateral Heels? - Elevate heels off of bed surface with pillows.? Float heels off of pillows.? Apply skin prep allow to dry.? Apply heel foam dressings, peel back and assess Q shift and change every 5-7 days and PRN. Re-consult wound care Nurse for wound deterioration or wound changes.
--- NOTE | 2025-07-23 16:21 | MHC.CM.PN ---
PER MD NOTE, PT NOT MEDICALLY CLEARED, STILL REQUIRING IV ABX AND LASIX AND MONITORING OF I&O, RENAL FUNCTION AND ELECTROLYTES
[2025-07-23 20:49] LABS: Glucose, Whole Blood 238 mg/dL (60-115)
[2025-07-23] MEDS: Insulin Glargine,Hum.rec.anlog 100 UNIT/ML 10 ML VIAL 25 UNIT SUBCUT (21:22)
[2025-07-24] VITALS (17 sets, daily range): BP systolic 128–180; BP diastolic 55–76; PULSE 58–82; RESP 17–28; TEMP 36.3–36.9; O2SAT 91–98
[2025-07-24] MEDS: Albuterol/Iprat 2.5/0.5MG 3 ML AMPUL.NEB INHALE ×6 (03:29→23:42)
[2025-07-24 07:55] LABS: Glucose, Whole Blood 189 mg/dL (60-115)
[2025-07-24] MEDS: Furosemide 20 MG/2 ML VIAL IVPUSH ×2 (08:08→21:04)
[2025-07-24] MEDS: dilTIAZem HCL CD 300 MG CAP.ER.24H PO (08:09)
[2025-07-24] MEDS: Ferrous Sulfate 324 MG TABLET.DR PO ×2 (08:09→21:04)
[2025-07-24] MEDS: 0.9 % Sodium Chloride Flush 3 ML SYRINGE IVFLUSH ×2 (08:10→21:06)
[2025-07-24 09:29] LABS: Anion Gap 12 (12-20); Blood Urea Nitrogen 40 mg/dL (9-16); Calcium 8.0 mg/dL (8.4-10.2); Carbon Dioxide 25 mmol/L (22-29); Chloride 103 mmol/L (96-108); Creatinine Clr Calc Pharmacy 40.4; Estimated Glomerular Filt Rate 40; Potassium 3.6 mmol/L (3.3-5.1); Sodium 136 mmol/L (135-145)
[2025-07-24 09:38] LABS: NT Pro B Type Natriuretic Pept 1269.4 pg/mL (<300)
[2025-07-24 11:55] LABS: Glucose, Whole Blood 225 mg/dL (60-115)
[2025-07-24 14:22] LABS: Venous Blood Gas Refer to POC result
[2025-07-24 14:22] LABS: VBG HCO3 30 mmol/L (22-26); VBG O2 % Saturation 48.0 %
[2025-07-24 16:27] LABS: Glucose, Whole Blood 235 mg/dL (60-115)
--- NOTE | 2025-07-24 17:19 | HO.PM.IMPN ---
Subjective Subjective Date of Service: 07/24/25 Interval History: COPD exacerbation, CHF Review of Systems Patient seems similar Has still wheezing, generally weak, short of breath with minimal exertion Review of Systems: Yes all other systems are reviewed and are negative Physical Exam Exam: Exam: Appearance: Alert.? Oriented X3.? . cvs: rrr, [id number] , no murmur res: air entry seems similar ,slightly diminshed /some wheezing abd: no rebound or guarding ,nt, bs present. ext pulses present , no cyanosis. neuro: axo3 , nonfocal. Vital Signs: Vital Signs: Last Vital Signs Temp 97.3 F 07/24/25 16:00 Pulse 58 07/24/25 16:00 Resp 20 07/24/25 16:00 BP 128/76 07/24/25 16:00 Pulse Ox 94 07/24/25 16:00 O2 Del Method Room Air 07/24/25 16:00 Oxygen Flow Rate 2 07/20/25 11:16 BMI result Body Mass Index 34.3 Objective Data Active Medications Acetaminophen (Acetaminophen 325 Mg Tablet) 650 mg PO Q6H PRN PRN Reason: Pain, Mild 1-3,fever,headache Last Admin: 07/22/25 15:26 Dose: 650 mg Documented By: GILSON Albuterol/Ipratropium (Albuterol/Iprat 2.5/0.5mg 3 Ml Ampul.Neb) 3 ml INHALE Q3H PRN PRN Reason: sob Last Admin: 07/21/25 09:04 Dose: 3 ml Documented By: COURTNEY Albuterol/Ipratropium (Albuterol/Iprat 2.5/0.5mg 3 Ml Ampul.Neb) 3 ml INHALE RQ4H [facility] Last Admin: 07/24/25 14:58 Dose: 3 ml Documented By: DAY Apixaban (Apixaban 5 Mg Tablet) 5 mg PO BID [facility] Last Admin: 07/24/25 08:09 Dose: 5 mg Documented By: KIMBERLYN Atorvastatin Calcium (Atorvastatin Calcium 80 Mg Tablet) 80 mg PO BEDTIME [facility] Last Admin: 07/23/25 21:22 Dose: 80 mg Documented By: EDDI Buspirone HCl (Buspirone Hcl 10 Mg Tablet) 10 mg PO BID [facility] Last Admin: 07/24/25 08:09 Dose: 10 mg Documented By: KIMBERLYN Calcium Carbonate (Calcium Carbonate 750 Mg Tab.Chew) 750 mg PO Q4H PRN PRN Reason: Heartburn Carvedilol (Carvedilol 12.5 Mg Tablet) 12.5 mg PO BID [facility]; Protocol Last Admin: 07/24/25 08:08 Dose: 12.5 mg Documented By: KIMBERLYN Dextrose (Dextrose 50 % 25 Gm/50 Ml Syringe) 25 gm IVPUSH Q15M PRN; Protocol PRN Reason: per Hypoglycemia Standing Ord. Diltiazem HCl (Diltiazem Hcl Cd 300 Mg Cap.Er.24h) 300 mg PO DAILY [facility]; Protocol Last Admin: 07/24/25 08:09 Dose: 300 mg Documented By: KIMBERLYN Docusate Sodium (Docusate Sodium 100 Mg Capsule) 100 mg PO BID PRN PRN Reason: Constipation Doxycycline Monohydrate (Doxycycline Monohydrate 100 Mg Capsule) 100 mg PO Q12H [facility] Escitalopram Oxalate (Escitalopram Oxalate 10 Mg Tablet) 15 mg PO DAILY [facility] Last Admin: 07/24/25 08:08 Dose: 15 mg Documented By: KIMBERLYN Famotidine (Famotidine 20 Mg Tablet) 20 mg PO DAILY PRN PRN Reason: GERD/Acid Reflux Ferrous Sulfate (Ferrous Sulfate 324 Mg Tablet.Dr) 324 mg PO TID [facility] Last Admin: 07/24/25 14:11 Dose: Not Given Documented By: KIMBERLYN Non-Admin Reason: on cpap, hold per provider Furosemide (Furosemide 20 Mg/2 Ml Vial) 20 mg IVPUSH BID [facility]; Protocol Glucose (Glucose Gel 15 Gm Gel..Gram.) 15 gm PO Q15M PRN; Protocol PRN Reason: per Hypoglycemia Standing Ord. Guaifenesin/Codeine Phosphate (Guaifen/Codeine Sf 200/20/10ml 10 Ml Liquid) 10 ml PO Q6H PRN PRN Reason: Cough Last Admin: 07/23/25 15:19 Dose: 10 ml Documented By: GILSON Ceftriaxone Sodium 1 gm/ (Sodium Chloride) 50 mls @ 100 mls/hr IV Q24H [facility] Last Infusion: 07/24/25 12:40 Dose: Infused Documented By: KIMBERLYN Insulin Glargine (Insulin Glargine,Hum.Rec.Anlog 100 Unit/Ml 10 Ml Vial) 25 unit SUBCUT BEDTIME [facility] Last Admin: 07/23/25 21:22 Dose: 25 unit Documented By: EDDI Insulin Human Lispro (Insulin Lispro 100 Unit/Ml 3 Ml Vial) 0 unit SUBCUT QIDACHS [facility]; Protocol Last Admin: 07/24/25 16:42 Dose: 4 unit Documented By: ISAAC Loratadine (Loratadine 10 Mg Tablet) 10 mg PO DAILY [facility] Last Admin: 07/24/25 08:09 Dose: 10 mg Documented By: KIMBERLYN Magnesium Hydroxide (Milk Of Magnesia 30 Ml Oral.Susp) 30 ml PO DAILY PRN PRN Reason: Constipation Last Admin: 07/22/25 09:15 Dose: 30 ml Documented By: GILSON Meclizine HCl (Meclizine Hcl 12.5 Mg Tablet) 12.5 mg PO TID PRN PRN Reason: dizziness Melatonin (Melatonin 3 Mg Tablet) 6 mg PO BEDTIME PRN PRN Reason: Insomnia Methylprednisolone Sodium Succinate (Methylprednisolone Sod Succ 40 Mg/Ml Vial) 60 mg IVPUSH Q6H [facility] Last Admin: 07/24/25 16:41 Dose: 60 mg Documented By: ISAAC Montelukast Sodium (Montelukast Sodium 10 Mg Tablet) 10 mg PO BEDTIME [facility] Last Admin: 07/23/25 21:22 Dose: 10 mg Documented By: EDDI Nitroglycerin (Nitroglycerin 0.4 Mg Tab.Subl) 0.4 mg SUBLINGUAL Q5M PRN PRN Reason: chest pain Pantoprazole Sodium (Pantoprazole Sodium 20 Mg Tablet.Dr) 40 mg PO BID@0630,1630 [facility] Last Admin: 07/24/25 16:41 Dose: 40 mg Documented By: ISAAC Polyethylene Glycol (Polyethylene Glycol 3350 17 Gm Powd.Pack) 17 gm PO BID PRN PRN Reason: Constipation Sodium Biphosphate/Sodium Phosphate (Sodium Phosphate,[place]-Dibasic 133 Ml Enema) 133 ml AL ONCE PRN PRN Reason: Constipation Last Admin: 07/23/25 15:20 Dose: 133 ml Documented By: GILSON Sodium Chloride (0.9 % Sodium Chloride Flush 3 Ml Syringe) 3 ml IVFLUSH QSHIFT [facility] Last Admin: 07/24/25 16:42 Dose: Not Given Documented By: ISAAC Non-Admin Reason: IV Running Vitamin D (Cholecalciferol (Vitamin D3) 25 Mcg Tablet) 25 mcg PO DAILY [facility] Last Admin: 07/24/25 08:09 Dose: 25 mcg Documented By: KIMBERLYN Labs 07/20/25 12:15 07/24/25 09:11 Labs: Laboratory Results - last 24 hr 07/23/25 07/24/25 07/24/25 20:45 07:48 09:11 VBG pH VBG pCO2 VBG pO2 VBG HCO3 VBG O2 Saturation VBG Base Excess Anion Gap 12 Estim Creat Clear Calc 40.4 Estimated GFR 40 POC Glucose 238 H 189 H Random Glucose 289 H Calcium 8.0 L NT-Pro-B Natriuret Pep 1269.4 H 07/24/25 07/24/25 07/24/25 11:46 14:19 15:21 VBG pH 7.50 H VBG pCO2 38 VBG pO2 35 VBG HCO3 30 H VBG O2 Saturation 48.0 VBG Base Excess 6.9 Anion Gap Estim Creat Clear Calc Estimated GFR POC Glucose 225 H 235 H Random Glucose Calcium NT-Pro-B Natriuret Pep Assessment and Plan (1) Asthma exacerbation in COPD: Status: Acute Plan 74F PMH COPD, ALYSIA, CAD, obesity, chronic diastolic CHF, diabetes, paroxysmal AFib, chronic iron-deficiency anemia, tracheal stenosis status post trachplasty presented with sob acute COPD excerecation with penumonia and acute decompensation and acute on chronic diastolic CHF. CT chest shows multifocal pneumonia recent rhino/entro viral uri moniter i/o(5.4/3.4) ,daily weights and tele pulm eval noted-continue current management plan: IV steroids q6hr ,iv antibiotics , DuoNebs, IV Lasix adjusted bid, monitor electrolytes,added loratidine ,hycodan for cough Monitor I&O, daily weights Discussed with the Pulmonary-currently we will continue IV Lasix and steroids and nebs. will add repeat pulm eval. Acute lactic acidosis: Probably secondary to nebs, repeated lactic acid- seems to be improved. Paroxysmal AF Carvedilol, Cardizem, apixaban vincent on ckd: moniter closely while on lasix. nephrology eval. CAD Apixaban, statin Chronic iron-deficiency anemia monitor, outpatient follow up DM insulin alysia not tolerant of cpap Morbid obesity: Encouraged to lose weight, cutdown calories Generalized weak: Seen by PT recommended inpatient pulmonary rehab. dvt prophylaxis - eliquis ongoing need for stay: considering acute COPD excerecation with penumonia and acute decompensation and acute on chronic diastolic CHF- need iv antibiotics, IV Lasix, I&O monitoring as well as renal function electrolyte monitoring. Quality Stroke Does the patient have a stroke diagnosis?: No VTE Prior VTE?: No VTE Risk Level:: Medical - moderate - high VTE Device Contraindication: N/A - Device Ordered VTE Drug Contraindication: N/A - Med Ordered
[2025-07-24 20:07] LABS: Glucose, Whole Blood 293 mg/dL (60-115)
[2025-07-24] MEDS: Insulin Glargine,Hum.rec.anlog 100 UNIT/ML 10 ML VIAL 25 UNIT SUBCUT (21:05)
[2025-07-25] VITALS (13 sets, daily range): BP systolic 125–182; BP diastolic 61–78; PULSE 71–94; RESP 16–22; TEMP 36.2–37.1; O2SAT 91–100
[2025-07-25] MEDS: Albuterol/Iprat 2.5/0.5MG 3 ML AMPUL.NEB INHALE ×5 (04:26→19:32)
[2025-07-25 07:33] LABS: Glucose, Whole Blood 211 mg/dL (60-115)
[2025-07-25 07:46] LABS: Anion Gap 15 (12-20); Blood Urea Nitrogen 38 mg/dL (9-16); Calcium 8.1 mg/dL (8.4-10.2); Carbon Dioxide 27 mmol/L (22-29); Chloride 101 mmol/L (96-108); Creatinine Clr Calc Pharmacy 47.0; Estimated Glomerular Filt Rate 48; Potassium 3.6 mmol/L (3.3-5.1); Sodium 139 mmol/L (135-145)
[2025-07-25 07:48] LABS: Hematocrit 31.4 % (37.0-47.0); Hemoglobin 9.3 g/dl (12.0-16.0); Mean Corpuscular HGB Conc 29.6 g/dl (31.0-35.0); Mean Corpuscular Hemoglobin 22.2 pg (27.0-33.0); Mean Corpuscular Volume 75.1 fL (80.0-98.0); NRBC Abs Auto 0.000 X10*3/uL (0.0-0.012); NRBC Pct Auto 0.0 /100WBC (0.0-0.2); Platelet Count 257 X10*3/uL (160-400); Red Blood Count 4.18 X10*6/uL (4.20-5.50); White Blood Count 13.7 X10*3/uL (4.8-10.8)
[2025-07-25 07:54] LABS: NT Pro B Type Natriuretic Pept 1447.8 pg/mL (<300)
[2025-07-25] MEDS: Ferrous Sulfate 324 MG TABLET.DR PO ×3 (07:57→20:50)
[2025-07-25] MEDS: Furosemide 20 MG/2 ML VIAL IVPUSH ×2 (07:57→20:50)
[2025-07-25] MEDS: dilTIAZem HCL CD 300 MG CAP.ER.24H PO (07:57)
[2025-07-25] MEDS: 0.9 % Sodium Chloride Flush 3 ML SYRINGE IVFLUSH ×2 (07:59→20:51)
--- NOTE | 2025-07-25 10:50 | MHC.CM.PN ---
EMR REVIEWED, PER HOSPITALIST PT WILL REMAIN INPT FOR [facility], P.T. RECOMMENDING PULMONARY REHAB, PT HAS BEEN REFUSING STR AND WOULD LIKE HOME SERVICES, [facility] FOLLOWING, CM WILL CONT TO FOLLOW DC NEEDS.
[2025-07-25 11:29] LABS: Glucose, Whole Blood 299 mg/dL (60-115)
--- NOTE | 2025-07-25 11:41 | P.PNIM_ITS ---
Subjective Subjective Date of Service: 07/25/25 Interval History: sob, cough Physical Exam 2 Exam: Exam: General: AO X 3, ill appearing, sob Resp: rhonchi bilateral, accessory muscles used CVS: S1,S2,RRR GI: soft, non tender, non distended Neuro: motor grossly intact, alert Psych: appropriate affect, appropriate insight Vital Signs: Vital Signs: Last Vital Signs Temp 98.0 F 07/25/25 07:49 Pulse 88 07/25/25 11:10 Resp 18 07/25/25 11:10 BP 174/70 H 07/25/25 07:49 Pulse Ox 91 L 07/25/25 07:49 O2 Del Method Room Air 07/25/25 07:49 Oxygen Flow Rate 2 07/20/25 11:16 BMI result Body Mass Index 34.3 Objective Data Active Medications Acetaminophen (Acetaminophen 325 Mg Tablet) 650 mg PO Q6H PRN PRN Reason: Pain, Mild 1-3,fever,headache Last Admin: 07/22/25 15:26 Dose: 650 mg Documented By: GILSON Albuterol/Ipratropium (Albuterol/Iprat 2.5/0.5mg 3 Ml Ampul.Neb) 3 ml INHALE Q3H PRN PRN Reason: sob Last Admin: 07/21/25 09:04 Dose: 3 ml Documented By: COURTNEY Albuterol/Ipratropium (Albuterol/Iprat 2.5/0.5mg 3 Ml Ampul.Neb) 3 ml INHALE RQ4H [facility] Last Admin: 07/25/25 11:08 Dose: 3 ml Documented By: IRMA Apixaban (Apixaban 5 Mg Tablet) 5 mg PO BID [facility] Last Admin: 07/25/25 07:58 Dose: 5 mg Documented By: JENNIFER Atorvastatin Calcium (Atorvastatin Calcium 80 Mg Tablet) 80 mg PO BEDTIME [facility] Last Admin: 07/24/25 21:04 Dose: 80 mg Documented By: EDDI Buspirone HCl (Buspirone Hcl 10 Mg Tablet) 10 mg PO BID [facility] Last Admin: 07/25/25 07:57 Dose: 10 mg Documented By: JENNIFER Calcium Carbonate (Calcium Carbonate 750 Mg Tab.Chew) 750 mg PO Q4H PRN PRN Reason: Heartburn Carvedilol (Carvedilol 12.5 Mg Tablet) 12.5 mg PO BID [facility]; Protocol Last Admin: 07/25/25 07:58 Dose: 12.5 mg Documented By: JENNIFER Dextrose (Dextrose 50 % 25 Gm/50 Ml Syringe) 25 gm IVPUSH Q15M PRN; Protocol PRN Reason: per Hypoglycemia Standing Ord. Diltiazem HCl (Diltiazem Hcl Cd 300 Mg Cap.Er.24h) 300 mg PO DAILY [facility]; Protocol Last Admin: 07/25/25 07:57 Dose: 300 mg Documented By: JENNIFER Docusate Sodium (Docusate Sodium 100 Mg Capsule) 100 mg PO BID PRN PRN Reason: Constipation Doxycycline Monohydrate (Doxycycline Monohydrate 100 Mg Capsule) 100 mg PO Q12H [facility] Last Admin: 07/25/25 07:58 Dose: 100 mg Documented By: JENNIFER Escitalopram Oxalate (Escitalopram Oxalate 10 Mg Tablet) 15 mg PO DAILY [facility] Last Admin: 07/25/25 07:58 Dose: 15 mg Documented By: JENNIFER Famotidine (Famotidine 20 Mg Tablet) 20 mg PO DAILY PRN PRN Reason: GERD/Acid Reflux Ferrous Sulfate (Ferrous Sulfate 324 Mg Tablet.Dr) 324 mg PO TID [facility] Last Admin: 07/25/25 07:57 Dose: 324 mg Documented By: JENNIFER Furosemide (Furosemide 20 Mg/2 Ml Vial) 20 mg IVPUSH BID [facility]; Protocol Last Admin: 07/25/25 07:57 Dose: 20 mg Documented By: JENNIFER Glucose (Glucose Gel 15 Gm Gel..Gram.) 15 gm PO Q15M PRN; Protocol PRN Reason: per Hypoglycemia Standing Ord. Guaifenesin/Codeine Phosphate (Guaifen/Codeine Sf 200/20/10ml 10 Ml Liquid) 10 ml PO Q6H PRN PRN Reason: Cough Last Admin: 07/23/25 15:19 Dose: 10 ml Documented By: GILSON Ceftriaxone Sodium 1 gm/ (Sodium Chloride) 50 mls @ 100 mls/hr IV Q24H [facility] Last Admin: 07/25/25 11:37 Dose: 100 mls/hr Documented By: JENNIFER Insulin Glargine (Insulin Glargine,Hum.Rec.Anlog 100 Unit/Ml 10 Ml Vial) 25 unit SUBCUT BEDTIME [facility] Last Admin: 07/24/25 21:05 Dose: 25 unit Documented By: EDDI Insulin Human Lispro (Insulin Lispro 100 Unit/Ml 3 Ml Vial) 0 unit SUBCUT QIDACHS [facility]; Protocol Last Admin: 07/25/25 11:38 Dose: 6 unit Documented By: JENNIFER Loratadine (Loratadine 10 Mg Tablet) 10 mg PO DAILY [facility] Last Admin: 07/25/25 07:58 Dose: 10 mg Documented By: JENNIFER Magnesium Hydroxide (Milk Of Magnesia 30 Ml Oral.Susp) 30 ml PO DAILY PRN PRN Reason: Constipation Last Admin: 07/22/25 09:15 Dose: 30 ml Documented By: GILSON Meclizine HCl (Meclizine Hcl 12.5 Mg Tablet) 12.5 mg PO TID PRN PRN Reason: dizziness Melatonin (Melatonin 3 Mg Tablet) 6 mg PO BEDTIME PRN PRN Reason: Insomnia Methylprednisolone Sodium Succinate (Methylprednisolone Sod Succ 40 Mg/Ml Vial) 60 mg IVPUSH Q12H [facility] Montelukast Sodium (Montelukast Sodium 10 Mg Tablet) 10 mg PO BEDTIME [facility] Last Admin: 07/24/25 21:04 Dose: 10 mg Documented By: EDDI Nitroglycerin (Nitroglycerin 0.4 Mg Tab.Subl) 0.4 mg SUBLINGUAL Q5M PRN PRN Reason: chest pain Pantoprazole Sodium (Pantoprazole Sodium 20 Mg Tablet.) 40 mg PO BID@0630,1630 [facility] Last Admin: 07/25/25 05:26 Dose: 40 mg Documented By: EDDI Polyethylene Glycol (Polyethylene Glycol 3350 17 Gm Powd.Pack) 17 gm PO BID PRN PRN Reason: Constipation Sodium Biphosphate/Sodium Phosphate (Sodium Phosphate,[place]-Dibasic 133 Ml Enema) 133 ml [place] ONCE PRN PRN Reason: Constipation Last Admin: 07/23/25 15:20 Dose: 133 ml Documented By: GILSON Sodium Chloride (0.9 % Sodium Chloride Flush 3 Ml Syringe) 3 ml IVFLUSH QSHIFT [facility] Last Admin: 07/25/25 07:59 Dose: 3 ml Documented By: JENNIFER Vitamin D (Cholecalciferol (Vitamin D3) 25 Mcg Tablet) 25 mcg PO DAILY [facility] Last Admin: 07/25/25 07:58 Dose: 25 mcg Documented By: JENNIFER Labs 07/25/25 06:57 07/25/25 06:57 Labs: Laboratory Results - last 24 hr 07/24/25 07/24/25 07/24/25 11:46 14:19 15:21 MCV MCH MCHC RDW Plt Count MPV Absolute Nucleated RBC Nucleated RBC % (auto) VBG pH 7.50 H VBG pCO2 38 VBG pO2 35 VBG HCO3 30 H VBG O2 Saturation 48.0 VBG Base Excess 6.9 Anion Gap Estim Creat Clear Calc Estimated GFR POC Glucose 225 H 235 H Random Glucose Calcium NT-Pro-B Natriuret Pep 07/24/25 07/25/25 07/25/25 20:04 06:57 07:24 MCV 75.1 L MCH 22.2 L MCHC 29.6 L RDW 20.1 H Plt Count 257 D MPV 10.4 Absolute Nucleated RBC 0.000 Nucleated RBC % (auto) 0.0 VBG pH VBG pCO2 VBG pO2 VBG HCO3 VBG O2 Saturation VBG Base Excess Anion Gap 15 Estim Creat Clear Calc 47.0 Estimated GFR 48 POC Glucose 293 H 211 H Random Glucose 225 H Calcium 8.1 L NT-Pro-B Natriuret Pep 1447.8 H 07/25/25 11:26 MCV MCH MCHC RDW Plt Count MPV Absolute Nucleated RBC Nucleated RBC % (auto) VBG pH VBG pCO2 VBG pO2 VBG HCO3 VBG O2 Saturation VBG Base Excess Anion Gap Estim Creat Clear Calc Estimated GFR POC Glucose 299 H Random Glucose Calcium NT-Pro-B Natriuret Pep Assessment and Plan (1) Anxiety and depression: Status: Acute Plan 74F PMH COPD, ALYSIA, obesity, coronary artery disease status post stent, chronic diastolic CHF, diabetes, paroxysmal AFib, chronic iron-deficiency anemia, tracheal stenosis status post tracheoplasty presented with worsening shortness of breath dyspnea multifactorial aspiration pneumonia and COPD with acute decompensation as well as acute on chronic diastolic CHF decrease steroids to 60 b.i.d., continue nebs Lasix 20 mg IV b.i.d. ceftriaxone speech therapy appreciated, noted to be aspirating on thin liquids, recommendations are for NDD3 solids and nectar thick liquids CAD apixaban, statin paroxysmal AFib Coreg, apixaban diabetes basal bolus insulin DVT prophylaxis on apixaban full code reason for continued hospitalization: still very symptomatic shortness breath Quality Stroke Does the patient have a stroke diagnosis?: No VTE Prior VTE?: No VTE Risk Level:: Medical - moderate - high VTE Device Contraindication: N/A - Device Ordered VTE Drug Contraindication: N/A - Med Ordered
--- NOTE | 2025-07-25 12:24 | P.CDIM_ITS ---
PROVIDER RESPONSE TEXT: To clarify, the appropriate diagnosis supported by the clinical indicators: Deep tissue injury sacrum QUERY TEXT: PHYSICIAN'S DOCUMENTATION REQUEST Date of Query: 07/25/2025 12:14 PM EST Patient Name: Saima Restrepo Admit Date: 07/21/2025 Dear Adam Worley MD, A review of the medical record indicates additional documentation may be needed. Please review below and update the documentation accordingly. Clinical Indicators: Wound care notes dated 07/23/25 - Deep Tissue Injury sacrum - Present on admission. Intact red and dark maroon hyperpigmented tissue non-blanchable. Off load pressure with Q2hr turns and use of pillows. Foam dressing to aid in off loading and protection. Based on the above, could you please provide further information regarding the ulcer/wound/injury: Deep tissue injury sacrum Other specified Please specify the location and laterality of the ulcer/wound Other (explain) Clinically unable to determine (explain) Thank you, Angella Stern, CCS, CDIS Use of terms such as suspected, likely, concern for, or probable (associated with a specific diagnosis that is being evaluated, monitored, or treated as if it exists) are acceptable and can be coded in the inpatient setting, when documented at the time of discharge. Please use your independent medical judgment in providing your response. THIS QUERY IS PART OF THE PERMANENT MEDICAL RECORD
--- NOTE | 2025-07-25 14:21 | MHC.SL.SWA ---
Speech Pathologist Impression: Risk of Aspiration, Oropharyngeal Dysphagia Risk of Aspiration Due to: Compromised Respiratory System Dysphasia Diet Status: Downgrade to NDD3/NTL Liquid Consistency and Strategies for Safe Swallow: Liquid Intake Recommendation: [place] Thick Solid Food Consistency: Dietary Recommendations: Chopped/Advanced (NDD3) Oral Medication Intake: Whole with Puree Please contact the pharmacy regarding appropriate crushable or liquid drug formulations that are available whenever modified delivery is recommended. Supervision While Eating and Drinking for Safe Swallow: Intermittent Supervision Recommendation for Speech: Inpatient Speech Therapy [facility] Therapy through [facility] Comment: Patient presents with mild oropharyngeal dysphagia, in the setting of underlying COPD, ALYSIA on CPAP at night, acute asthma/COPD exacerbation, general weakness, and SOB with minimal exertion. Patient presents with mildly slowed oral phase and presence of mild oral residue after swallowing. She also reports globus sensation and a fear of choking on harder or drier and pulverizer tender foods. Patient consistently coughed after trials of thin consistency. Recommend DOWNGRADE from unmodified diet and start on CHOPPED/ADVANCED (NDD3) solids and NECTAR THICK liquids, pills WHOLE with puree or sips of nectar thickened liquid. Patient to be checked in on periodically throughout meal to monitor tolerance and progression through meal. She may benefit from smaller, more frequent meals throughout the day, as she reports quickly fatiguing while eating. Frequency/Duration: M-F Date Range for Service Req: Timeline to reassess: Digester Hand Clinican/Clinical Fellow: No Supervisory Statement: I have reviewed and agree with the student/clinical fellow's documentation: N/A Speech Language Pathologist: Ni Bourgeois M.A., CCC-TOURIST AGENT
[2025-07-25 15:57] LABS: Glucose, Whole Blood 348 mg/dL (60-115)
[2025-07-25 20:37] LABS: Glucose, Whole Blood 302 mg/dL (60-115)
[2025-07-25] MEDS: Insulin Glargine,Hum.rec.anlog 100 UNIT/ML 10 ML VIAL 25 UNIT SUBCUT (20:50)
[2025-07-26] VITALS (14 sets, daily range): BP systolic 154–183; BP diastolic 54–85; PULSE 65–79; RESP 16–20; TEMP 36.2–36.9; O2SAT 88–94
[2025-07-26] MEDS: Albuterol/Iprat 2.5/0.5MG 3 ML AMPUL.NEB INHALE ×6 (00:03→20:00)
[2025-07-26 06:21] LABS: Hematocrit 32.4 % (37.0-47.0); Hemoglobin 9.7 g/dl (12.0-16.0); Mean Corpuscular HGB Conc 29.9 g/dl (31.0-35.0); Mean Corpuscular Hemoglobin 21.9 pg (27.0-33.0); Mean Corpuscular Volume 73.3 fL (80.0-98.0); NRBC Abs Auto 0.000 X10*3/uL (0.0-0.012); NRBC Pct Auto 0.0 /100WBC (0.0-0.2); Platelet Count 235 X10*3/uL (160-400); Red Blood Count 4.42 X10*6/uL (4.20-5.50); White Blood Count 17.3 X10*3/uL (4.8-10.8)
[2025-07-26 06:36] LABS: Anion Gap 12 (12-20); Blood Urea Nitrogen 40 mg/dL (9-16); Calcium 8.1 mg/dL (8.4-10.2); Carbon Dioxide 30 mmol/L (22-29); Chloride 100 mmol/L (96-108); Creatinine Clr Calc Pharmacy 55.5; Estimated Glomerular Filt Rate 58; Potassium 3.4 mmol/L (3.3-5.1); Sodium 139 mmol/L (135-145)
[2025-07-26 07:28] LABS: Glucose, Whole Blood 208 mg/dL (60-115)
[2025-07-26] MEDS: Furosemide 20 MG/2 ML VIAL IVPUSH (07:46)
[2025-07-26] MEDS: Ferrous Sulfate 324 MG TABLET.DR PO ×3 (07:47→20:08)
[2025-07-26] MEDS: dilTIAZem HCL CD 300 MG CAP.ER.24H PO (07:47)
[2025-07-26] MEDS: 0.9 % Sodium Chloride Flush 3 ML SYRINGE IVFLUSH ×2 (07:47→23:30)
--- NOTE | 2025-07-26 10:11 | P.PNIM_ITS ---
Subjective Subjective Date of Service: 07/26/25 Interval History: still feels terrible Physical Exam 2 Exam: Exam: General: AO X 3, ill appearing, sob Resp: rhonchi bilateral, accessory muscles used CVS: S1,S2,RRR GI: soft, non tender, non distended Neuro: motor grossly intact, alert Psych: appropriate affect, appropriate insight Vital Signs: Vital Signs: Last Vital Signs Temp 97.2 F 07/26/25 07:31 Pulse 77 07/26/25 08:00 Resp 20 07/26/25 08:00 BP 182/54 H 07/26/25 07:31 Pulse Ox 93 07/26/25 07:31 O2 Del Method CPAP 07/26/25 07:31 Oxygen Flow Rate 2 07/20/25 11:16 BMI result Body Mass Index 34.3 Objective Data Active Medications Acetaminophen (Acetaminophen 325 Mg Tablet) 650 mg PO Q6H PRN PRN Reason: Pain, Mild 1-3,fever,headache Last Admin: 07/25/25 20:49 Dose: 650 mg Documented By: LANIE Albuterol/Ipratropium (Albuterol/Iprat 2.5/0.5mg 3 Ml Ampul.Neb) 3 ml INHALE Q3H PRN PRN Reason: sob Last Admin: 07/21/25 09:04 Dose: 3 ml Documented By: COURTNEY Albuterol/Ipratropium (Albuterol/Iprat 2.5/0.5mg 3 Ml Ampul.Neb) 3 ml INHALE RQ4H [facility] Last Admin: 07/26/25 07:59 Dose: 3 ml Documented By: COURTNEY Apixaban (Apixaban 5 Mg Tablet) 5 mg PO BID [facility] Last Admin: 07/26/25 07:47 Dose: 5 mg Documented By: JENNIFER Atorvastatin Calcium (Atorvastatin Calcium 80 Mg Tablet) 80 mg PO BEDTIME [facility] Last Admin: 07/25/25 20:50 Dose: 80 mg Documented By: LANIE Buspirone HCl (Buspirone Hcl 10 Mg Tablet) 10 mg PO BID [facility] Last Admin: 07/26/25 07:48 Dose: 10 mg Documented By: JENNIFER Calcium Carbonate (Calcium Carbonate 750 Mg Tab.Chew) 750 mg PO Q4H PRN PRN Reason: Heartburn Carvedilol (Carvedilol 12.5 Mg Tablet) 12.5 mg PO BID [facility]; Protocol Last Admin: 07/26/25 07:48 Dose: 12.5 mg Documented By: JENNIFER Dextrose (Dextrose 50 % 25 Gm/50 Ml Syringe) 25 gm IVPUSH Q15M PRN; Protocol PRN Reason: per Hypoglycemia Standing Ord. Diltiazem HCl (Diltiazem Hcl Cd 300 Mg Cap.Er.24h) 300 mg PO DAILY [facility]; Protocol Last Admin: 07/26/25 07:47 Dose: 300 mg Documented By: JENNIFER Docusate Sodium (Docusate Sodium 100 Mg Capsule) 100 mg PO BID PRN PRN Reason: Constipation Doxycycline Monohydrate (Doxycycline Monohydrate 100 Mg Capsule) 100 mg PO Q12H [facility] Last Admin: 07/26/25 07:47 Dose: 100 mg Documented By: JENNIFER Escitalopram Oxalate (Escitalopram Oxalate 10 Mg Tablet) 15 mg PO DAILY [facility] Last Admin: 07/26/25 07:47 Dose: 15 mg Documented By: JENNIFER Famotidine (Famotidine 20 Mg Tablet) 20 mg PO DAILY PRN PRN Reason: GERD/Acid Reflux Ferrous Sulfate (Ferrous Sulfate 324 Mg Tablet.Dr) 324 mg PO TID [facility] Last Admin: 07/26/25 07:47 Dose: 324 mg Documented By: JENNIFER Furosemide (Furosemide 20 Mg/2 Ml Vial) 20 mg IVPUSH BID [facility]; Protocol Last Admin: 07/26/25 07:46 Dose: 20 mg Documented By: JENNIFER Glucose (Glucose Gel 15 Gm Gel..Gram.) 15 gm PO Q15M PRN; Protocol PRN Reason: per Hypoglycemia Standing Ord. Guaifenesin/Codeine Phosphate (Guaifen/Codeine Sf 200/20/10ml 10 Ml Liquid) 10 ml PO Q6H PRN PRN Reason: Cough Last Admin: 07/23/25 15:19 Dose: 10 ml Documented By: GILSON Ceftriaxone Sodium 1 gm/ (Sodium Chloride) 50 mls @ 100 mls/hr IV Q24H [facility] Last Infusion: 07/25/25 12:08 Dose: Infused Documented By: JENNIFER Insulin Glargine (Insulin Glargine,Hum.Rec.Anlog 100 Unit/Ml 10 Ml Vial) 25 unit SUBCUT BEDTIME [facility] Last Admin: 07/25/25 20:50 Dose: 25 unit Documented By: LANIE Insulin Human Lispro (Insulin Lispro 100 Unit/Ml 3 Ml Vial) 0 unit SUBCUT QIDACHS [facility]; Protocol Last Admin: 07/26/25 07:46 Dose: 4 unit Documented By: JENNIFER Loratadine (Loratadine 10 Mg Tablet) 10 mg PO DAILY [facility] Last Admin: 07/26/25 07:47 Dose: 10 mg Documented By: JENNIFER Magnesium Hydroxide (Milk Of Magnesia 30 Ml Oral.Susp) 30 ml PO DAILY PRN PRN Reason: Constipation Last Admin: 07/22/25 09:15 Dose: 30 ml Documented By: GILSON Meclizine HCl (Meclizine Hcl 12.5 Mg Tablet) 12.5 mg PO TID PRN PRN Reason: dizziness Melatonin (Melatonin 3 Mg Tablet) 6 mg PO BEDTIME PRN PRN Reason: Insomnia Methylprednisolone Sodium Succinate (Methylprednisolone Sod Succ 40 Mg/Ml Vial) 60 mg IVPUSH Q12H [facility] Last Admin: 07/26/25 05:56 Dose: 60 mg Documented By: LANIE Montelukast Sodium (Montelukast Sodium 10 Mg Tablet) 10 mg PO BEDTIME [facility] Last Admin: 07/25/25 20:50 Dose: 10 mg Documented By: LANIE Nitroglycerin (Nitroglycerin 0.4 Mg Tab.Subl) 0.4 mg SUBLINGUAL Q5M PRN PRN Reason: chest pain Pantoprazole Sodium (Pantoprazole Sodium 20 Mg Tablet.) 40 mg PO BID@0630,1630 [facility] Last Admin: 07/26/25 05:56 Dose: 40 mg Documented By: LANIE Polyethylene Glycol (Polyethylene Glycol 3350 17 Gm Powd.Pack) 17 gm PO BID PRN PRN Reason: Constipation Sodium Biphosphate/Sodium Phosphate (Sodium Phosphate,[place]-Dibasic 133 Ml Enema) 133 ml [place] ONCE PRN PRN Reason: Constipation Last Admin: 07/23/25 15:20 Dose: 133 ml Documented By: GILSON Sodium Chloride (0.9 % Sodium Chloride Flush 3 Ml Syringe) [facility] Last Admin: 07/26/25 07:47 Dose: 3 ml Documented By: JENNIFER Vitamin D (Cholecalciferol (Vitamin D3) 25 Mcg Tablet) 25 mcg PO DAILY [facility] Last Admin: 07/26/25 07:47 Dose: 25 mcg Documented By: JENNIFER Labs 07/26/25 06:12 07/26/25 06:12 Labs: Laboratory Results - last 24 hr 07/25/25 07/25/25 07/25/25 11:26 15:54 20:32 MCV MCH MCHC RDW Plt Count MPV Absolute Nucleated RBC Nucleated RBC % (auto) Anion Gap Estim Creat Clear Calc Estimated GFR POC Glucose 299 H 348 H 302 H Random Glucose Calcium 07/26/25 07/26/25 06:12 07:24 MCV 73.3 L MCH 21.9 L MCHC 29.9 L RDW 20.7 H Plt Count 235 MPV 10.0 Absolute Nucleated RBC 0.000 Nucleated RBC % (auto) 0.0 Anion Gap 12 Estim Creat Clear Calc 55.5 Estimated GFR 58 POC Glucose 208 H Random Glucose 202 H Calcium 8.1 L Microbiology Microbiology Results: Microbiology 07/20/25 12:15 Blood Culture - Final Blood - Venous No growth after 5 days. 07/20/25 12:15 Blood Culture - Final Blood - Venous No growth after 5 days. Assessment and Plan (1) Anxiety and depression: Status: Acute Plan 74F PMH COPD, ALYSIA, obesity, coronary artery disease status post stent, chronic diastolic CHF, diabetes, paroxysmal AFib, chronic iron-deficiency anemia, tracheal stenosis status post tracheoplasty presented with worsening shortness of breath dyspnea multifactorial aspiration pneumonia and COPD with acute decompensation as well as acute on chronic diastolic CHF decrease steroids to 60 b.i.d., continue nebs Lasix 20 mg IV b.i.d. ceftriaxone, doxy speech therapy appreciated, noted to be aspirating on thin liquids, recommendations are for NDD3 solids and nectar thick liquids CAD apixaban, statin paroxysmal AFib Coreg, apixaban diabetes basal bolus insulin DVT prophylaxis on apixaban full code reason for continued hospitalization: still very symptomatic shortness breath Quality Stroke Does the patient have a stroke diagnosis?: No VTE Prior VTE?: No VTE Risk Level:: Medical - moderate - high VTE Device Contraindication: N/A - Device Ordered VTE Drug Contraindication: N/A - Med Ordered
[2025-07-26 11:38] LABS: Glucose, Whole Blood 283 mg/dL (60-115)
--- NOTE | 2025-07-26 14:22 | MHC.SL.SWA ---
Speech Pathologist Impression: Risk of Aspiration Due to: Dysphasia Diet Status: Recommend continue on Chopped/Advanced (NDD3), [place] Thick liquids, pills whole with puree. Liquid Consistency and Strategies for Safe Swallow: Liquid Intake Recommendation: [place] Thick Liquid Intake Strategies: Small Sips Solid Food Consistency: Dietary Recommendations: Chopped/Advanced (NDD3) Additional Modifications to Solid Foods: Oral Medication Intake: Whole with Puree Please contact the pharmacy regarding appropriate crushable or liquid drug formulations that are available whenever modified delivery is recommended. Compensatory Strategies and Precautions to be Taken for Safe Swallow: Sitting Upright (90 deg) Liquids from Cup Liquids from Straw Small Bites and Sips Alternate Liquids/Solids Supervision While Eating and Drinking for Safe Swallow: Intermittent Supervision Foods to Avoid: Swallowing Recommended Treatments: Compens. Strategy Educat. Recommendation for Speech: Inpatient Speech Therapy [facility] Therapy through [facility] Comment: Patient seen at lunch for toleration of current diet. At time of visit patient had mostly consumed meal, reported that it was ok and had no difficulties. However, no liquids apparently came with meal, MAINTAINER OPERATOR then retrieved some juices from the floor kitchen and thickened to nectar thick. Patient observed taking individual sips by straw of the NT juice, with patient tolerating well, no clinical signs of aspiration. Upper airway noise on inhalation was noticeably audibly, it did not appear connected to ingestion of liquids. Recommend continue on Chopped/Advanced (NDD3), [place] Thick liquids, pills whole with puree. MAINTAINER OPERATOR will continue to follow. Frequency/Duration: M-F Date Range for Service Req: Timeline to reassess: Private Banker Clinican/Clinical Fellow: No Supervisory Statement: I have reviewed and agree with the student/clinical fellow's documentation: N/A Speech Language Pathologist: Erlinda Gill M.A., [facility]-MAINTAINER OPERATOR
[2025-07-26 15:36] LABS: Glucose, Whole Blood 259 mg/dL (60-115)
[2025-07-26] MEDS: Furosemide 20 MG/2 ML VIAL 40 MG IVPUSH (20:07)
[2025-07-26 21:05] LABS: Glucose, Whole Blood 350 mg/dL (60-115)
[2025-07-26] MEDS: Insulin Glargine,Hum.rec.anlog 100 UNIT/ML 10 ML VIAL 25 UNIT SUBCUT (21:11)
[2025-07-27] VITALS (18 sets, daily range): BP systolic 136–167; BP diastolic 52–73; PULSE 69–92; RESP 16–24; TEMP 36.4–36.9; O2SAT 90–96
[2025-07-27] MEDS: Albuterol/Iprat 2.5/0.5MG 3 ML AMPUL.NEB INHALE ×6 (00:55→18:25)
[2025-07-27 07:08] LABS: Glucose, Whole Blood 159 mg/dL (60-115)
[2025-07-27] MEDS: Ferrous Sulfate 324 MG TABLET.DR PO ×3 (07:59→20:56)
[2025-07-27] MEDS: dilTIAZem HCL CD 300 MG CAP.ER.24H PO (07:59)
[2025-07-27] MEDS: 0.9 % Sodium Chloride Flush 3 ML SYRINGE IVFLUSH ×3 (08:07→20:58)
[2025-07-27] MEDS: Furosemide 20 MG/2 ML VIAL IVPUSH (08:20)
--- NOTE | 2025-07-27 10:34 | HO.PM.IMPN ---
Subjective Subjective Date of Service: 07/27/25 Interval History: ongoing sob, wheezing Physical Exam Exam: Exam: General: AO X 3, ill appearing, sob Resp: rhonchi bilateral, accessory muscles used CVS: S1,S2,RRR GI: soft, non tender, non distended Neuro: motor grossly intact, alert Psych: appropriate affect, appropriate insight Vital Signs: Vital Signs: Last Vital Signs Temp 98.1 F 07/27/25 07:38 Pulse 80 07/27/25 08:00 Resp 24 H 07/27/25 08:00 BP 155/70 H 07/27/25 08:20 Pulse Ox 90 L 07/27/25 07:38 O2 Del Method Room Air 07/27/25 07:38 Oxygen Flow Rate 2 07/20/25 11:16 BMI result Body Mass Index 34.3 Objective Data Active Medications Acetaminophen (Acetaminophen 325 Mg Tablet) 650 mg PO Q6H PRN PRN Reason: Pain, Mild 1-3,fever,headache Last Admin: 07/26/25 15:09 Dose: 650 mg Documented By: JENNIFER Albuterol/Ipratropium (Albuterol/Iprat 2.5/0.5mg 3 Ml Ampul.Neb) 3 ml INHALE Q3H PRN PRN Reason: sob Last Admin: 07/21/25 09:04 Dose: 3 ml Documented By: COURTNEY Albuterol/Ipratropium (Albuterol/Iprat 2.5/0.5mg 3 Ml Ampul.Neb) 3 ml INHALE RQ4H [facility] Last Admin: 07/27/25 07:59 Dose: 3 ml Documented By: AILEEN Amlodipine Besylate (Amlodipine Besylate 5 Mg Tablet) 5 mg PO DAILY [facility]; Protocol Last Admin: 07/27/25 07:59 Dose: 5 mg Documented By: OLIVIA Apixaban (Apixaban 5 Mg Tablet) 5 mg PO BID [facility] Last Admin: 07/27/25 07:58 Dose: 5 mg Documented By: OLIVIA Atorvastatin Calcium (Atorvastatin Calcium 80 Mg Tablet) 80 mg PO BEDTIME [facility] Last Admin: 07/26/25 20:07 Dose: 80 mg Documented By: NORM Buspirone HCl (Buspirone Hcl 10 Mg Tablet) 10 mg PO BID [facility] Last Admin: 07/27/25 07:58 Dose: 10 mg Documented By: OLIVIA Calcium Carbonate (Calcium Carbonate 750 Mg Tab.Chew) 750 mg PO Q4H PRN PRN Reason: Heartburn Carvedilol (Carvedilol 12.5 Mg Tablet) 12.5 mg PO BID [facility]; Protocol Last Admin: 07/27/25 07:58 Dose: 12.5 mg Documented By: OLIVIA Dextrose (Dextrose 50 % 25 Gm/50 Ml Syringe) 25 gm IVPUSH Q15M PRN; Protocol PRN Reason: per Hypoglycemia Standing Ord. Diltiazem HCl (Diltiazem Hcl Cd 300 Mg Cap.Er.24h) 300 mg PO DAILY [facility]; Protocol Last Admin: 07/27/25 07:59 Dose: 300 mg Documented By: OLIVIA Docusate Sodium (Docusate Sodium 100 Mg Capsule) 100 mg PO BID PRN PRN Reason: Constipation Doxycycline Monohydrate (Doxycycline Monohydrate 100 Mg Capsule) 100 mg PO Q12H [facility] Last Admin: 07/27/25 07:59 Dose: 100 mg Documented By: OLIVIA Escitalopram Oxalate (Escitalopram Oxalate 10 Mg Tablet) 15 mg PO DAILY [facility] Last Admin: 07/27/25 08:00 Dose: 15 mg Documented By: OLIVIA Famotidine (Famotidine 20 Mg Tablet) 20 mg PO DAILY PRN PRN Reason: GERD/Acid Reflux Ferrous Sulfate (Ferrous Sulfate 324 Mg Tablet.Dr) 324 mg PO TID [facility] Last Admin: 07/27/25 07:59 Dose: 324 mg Documented By: OLIVIA Furosemide (Furosemide 20 Mg/2 Ml Vial) 20 mg IVPUSH BID [facility]; Protocol Last Admin: 07/27/25 08:20 Dose: 20 mg Documented By: OLIVIA Glucose (Glucose Gel 15 Gm Gel..Gram.) 15 gm PO Q15M PRN; Protocol PRN Reason: per Hypoglycemia Standing Ord. Guaifenesin/Codeine Phosphate (Guaifen/Codeine Sf 200/20/10ml 10 Ml Liquid) 10 ml PO Q6H PRN PRN Reason: Cough Last Admin: 07/23/25 15:19 Dose: 10 ml Documented By: GILSON Ceftriaxone Sodium 1 gm/ (Sodium Chloride) 50 mls @ 100 mls/hr IV Q24H [facility] Last Infusion: 07/26/25 12:15 Dose: Infused Documented By: JENNIFER Insulin Glargine (Insulin Glargine,Hum.Rec.Anlog 100 Unit/Ml 10 Ml Vial) 25 unit SUBCUT BEDTIME [facility] Last Admin: 07/26/25 21:11 Dose: 25 unit Documented By: NORM Insulin Human Lispro (Insulin Lispro 100 Unit/Ml 3 Ml Vial) 0 unit SUBCUT QIDACHS [facility]; Protocol Last Admin: 07/27/25 08:19 Dose: 2 unit Documented By: OLIVIA Loratadine (Loratadine 10 Mg Tablet) 10 mg PO DAILY [facility] Last Admin: 07/27/25 08:00 Dose: 10 mg Documented By: OLIVIA Magnesium Hydroxide (Milk Of Magnesia 30 Ml Oral.Susp) 30 ml PO DAILY PRN PRN Reason: Constipation Last Admin: 07/22/25 09:15 Dose: 30 ml Documented By: GILSON Meclizine HCl (Meclizine Hcl 12.5 Mg Tablet) 12.5 mg PO TID PRN PRN Reason: dizziness Melatonin (Melatonin 3 Mg Tablet) 6 mg PO BEDTIME PRN PRN Reason: Insomnia Methylprednisolone Sodium Succinate (Methylprednisolone Sod Succ 40 Mg/Ml Vial) 60 mg IVPUSH Q12H [facility] Last Admin: 07/27/25 03:45 Dose: 60 mg Documented By: NORM Montelukast Sodium (Montelukast Sodium 10 Mg Tablet) 10 mg PO BEDTIME [facility] Last Admin: 07/26/25 20:07 Dose: 10 mg Documented By: NORM Nitroglycerin (Nitroglycerin 0.4 Mg Tab.Subl) 0.4 mg SUBLINGUAL Q5M PRN PRN Reason: chest pain Pantoprazole Sodium (Pantoprazole Sodium 20 Mg Tablet.Dr) 40 mg PO BID@0630,1630 [facility] Last Admin: 07/26/25 16:15 Dose: 40 mg Documented By: JENNIFER Polyethylene Glycol (Polyethylene Glycol 3350 17 Gm Powd.Pack) 17 gm PO BID PRN PRN Reason: Constipation Sodium Biphosphate/Sodium Phosphate (Sodium Phosphate,[place]inds-Dibasic 133 Ml Enema) 133 ml [place] ONCE PRN PRN Reason: Constipation Last Admin: 07/23/25 15:20 Dose: 133 ml Documented By: HO.KINGKAI Sodium Chloride (0.9 % Sodium Chloride Flush 3 Ml Syringe) 3 ml IVFLUSH QSHIFT [facility] Last Admin: 07/27/25 08:07 Dose: 3 ml Documented By: OLIVIA Vitamin D (Cholecalciferol (Vitamin D3) 25 Mcg Tablet) 25 mcg PO DAILY [facility] Last Admin: 07/27/25 07:59 Dose: 25 mcg Documented By: OLIVIA Labs 07/26/25 06:12 07/26/25 06:12 Labs: Laboratory Results - last 24 hr 07/26/25 07/26/25 07/26/25 11:34 15:32 21:02 POC Glucose 283 H 259 H 350 H* 07/27/25 07:04 POC Glucose 159 H Assessment and Plan (1) Anxiety and depression: Status: Acute Plan 74F PMH COPD, ALYSIA, obesity, coronary artery disease status post stent, chronic diastolic CHF, diabetes, paroxysmal AFib, chronic iron-deficiency anemia, tracheal stenosis status post tracheoplasty presented with worsening shortness of breath dyspnea multifactorial aspiration pneumonia and COPD with acute decompensation as well as acute on chronic diastolic CHF solumedrol iv 60 b.i.d., continue nebs appears hypo to euvolemic, will change to po lasix ceftriaxone, doxy speech therapy appreciated, noted to be aspirating on thin liquids, recommendations are for NDD3 solids and nectar thick liquids CAD apixaban, statin paroxysmal AFib Coreg, apixaban diabetes basal bolus insulin DVT prophylaxis on apixaban full code reason for continued hospitalization: still very symptomatic shortness breath Quality Stroke Does the patient have a stroke diagnosis?: No VTE Prior VTE?: No VTE Risk Level:: Medical - moderate - high VTE Device Contraindication: N/A - Device Ordered VTE Drug Contraindication: N/A - Med Ordered
--- NOTE | 2025-07-27 11:17 | P.CDIM_ITS ---
PROVIDER RESPONSE TEXT: To clarify, the appropriate diagnosis supported by the clinical indicators: Diabetes mellitus Type 2 with hyperglycemia QUERY TEXT: PHYSICIAN'S DOCUMENTATION REQUEST Date of Query: 07/27/2025 10:58 AM EST Patient Name: Saima Restrepo Admit Date: 07/21/2025 Dear Adam Worley MD, A review of the medical record indicates additional documentation may be needed. Please review below and update the documentation accordingly. Clinical Indicators: LABS: POC glucose 350 H 159 Basal bolus insulin Please clarify if there is a diagnosis that correlates with these lab findings, if possible: Diabetes mellitus Type 2 with hyperglycemia Other diagnosis that relates to these findings Other (explain) Clinically unable to determine (explain) Thank you, Angella Stern, CCS, CDIS Use of terms such as suspected, likely, concern for, or probable (associated with a specific diagnosis that is being evaluated, monitored, or treated as if it exists) are acceptable and can be coded in the inpatient setting, when documented at the time of discharge. Please use your independent medical judgment in providing your response. THIS QUERY IS PART OF THE PERMANENT MEDICAL RECORD
[2025-07-27 11:26] LABS: Glucose, Whole Blood 258 mg/dL (60-115)
--- NOTE | 2025-07-27 14:08 | MHC.CM.PN ---
EMR REVIEWED AND PER MD ROUNDS, PATIENT IS NOT MEDICALLY CLEARED FOR DISCHARGE DUE TO MANAGEMENT OF ASPIRATION PNA/COPD/DYSPNEA.
--- NOTE | 2025-07-27 14:18 | MHC.SL.SWA ---
Speech Pathologist Impression:Risk of Aspiration, Oropharyngeal Dysphagia Risk of Aspiration Due to: Underlying COPD, ALYSIA, asthma; general weakness and SOB with minimal exertion Dysphasia Diet Status: Recommend continue on Chopped/Advanced (NDD3), [place] Thick liquids, pills whole with puree. Liquid Consistency and Strategies for Safe Swallow: Liquid Intake Recommendation: [place] Thick Liquid Intake Strategies: Small Sips Solid Food Consistency: Dietary Recommendations: Chopped/Advanced (NDD3) Oral Medication Intake: Whole with Puree Please contact the pharmacy regarding appropriate crushable or liquid drug formulations that are available whenever modified delivery is recommended. Compensatory Strategies and Precautions to be Taken for Safe Swallow: Sitting Upright (90 deg) Liquids from Cup Liquids from Straw Small Bites and Sips Alternate Liquids/Solids Supervision While Eating and Drinking for Safe Swallow: Intermittent Supervision Foods to Avoid: Swallowing Recommended Treatments: Compens. Strategy Educat. Recommendation for Speech: Inpatient Speech Therapy Speech Therapy through [facility] Comment: Patient presents with mild oropharyngeal dysphagia, in the setting of underlying COPD, ALYSIA on CPAP at night, acute asthma/COPD exacerbation, general weakness, and SOB with minimal exertion. Patient presents with mildly slowed oral phase and presence of mild oral residue after swallowing. She also reports globus sensation and a fear of choking on harder or pearl glue drier foods. Patient consistently coughed after trials of thin consistency. Recommend DOWNGRADE from unmodified diet and start on CHOPPED/ADVANCED (NDD3) solids and NECTAR THICK liquids, pills WHOLE with puree or sips of nectar thickened liquid. Patient to be checked in on periodically throughout meal to monitor tolerance and progression through meal. She may benefit from smaller, more frequent meals throughout the day, as she reports quickly fatiguing while eating. Frequency/Duration: M-F Date Range for Service Req: Timeline to reassess: Car Repair Supervisor Clinican/Clinical Fellow: No Supervisory Statement: I have reviewed and agree with the student/clinical fellow's documentation: N/A Speech Language Pathologist: Ni Bourgeois M.A., CCC-CORN PRESS OPERATOR
[2025-07-27 15:44] LABS: Glucose, Whole Blood 232 mg/dL (60-115)
[2025-07-27 20:05] LABS: Glucose, Whole Blood 190 mg/dL (60-115)
[2025-07-27] MEDS: Insulin Glargine,Hum.rec.anlog 100 UNIT/ML 10 ML VIAL 25 UNIT SUBCUT (20:54)
[2025-07-28] VITALS (10 sets, daily range): BP systolic 140–188; BP diastolic 54–77; PULSE 68–83; RESP 16–22; TEMP 36.3–37.1; O2SAT 89–93
[2025-07-28 07:38] LABS: Glucose, Whole Blood 165 mg/dL (60-115)
[2025-07-28 07:48] LABS: Hematocrit 32.1 % (37.0-47.0); Hemoglobin 9.9 g/dl (12.0-16.0); Mean Corpuscular HGB Conc 30.8 g/dl (31.0-35.0); Mean Corpuscular Hemoglobin 22.6 pg (27.0-33.0); Mean Corpuscular Volume 73.1 fL (80.0-98.0); NRBC Abs Auto 0.000 X10*3/uL (0.0-0.012); NRBC Pct Auto 0.0 /100WBC (0.0-0.2); Red Blood Count 4.39 X10*6/uL (4.20-5.50); White Blood Count 17.4 X10*3/uL (4.8-10.8)
[2025-07-28 08:11] LABS: Alanine Aminotransferase 36 U/L (0-31); Albumin Level 3.1 g/dL (3.5-5.0); Alkaline Phosphatase 90 U/L (39-117); Anion Gap 12 (12-20); Aspartate Amino Transferase 34 U/L (5-31); Blood Urea Nitrogen 39 mg/dL (9-16); Calcium 8.2 mg/dL (8.4-10.2); Carbon Dioxide 35 mmol/L (22-29); Chloride 97 mmol/L (96-108); Creatinine Clr Calc Pharmacy 60.6; Estimated Glomerular Filt Rate > 60; Magnesium 2.4 mg/dL (1.6-2.6); Potassium 3.3 mmol/L (3.3-5.1); Sodium 141 mmol/L (135-145); Total Protein 5.8 g/dL (6.5-8.0)
[2025-07-28] MEDS: Albuterol/Iprat 2.5/0.5MG 3 ML AMPUL.NEB INHALE ×2 (08:21→15:12)
[2025-07-28] MEDS: dilTIAZem HCL CD 300 MG CAP.ER.24H PO (08:23)
[2025-07-28] MEDS: Ferrous Sulfate 324 MG TABLET.DR PO ×3 (08:23→20:50)
[2025-07-28 08:36] LABS: Procalcitonin 0.05 ng/mL
[2025-07-28] MEDS: 0.9 % Sodium Chloride Flush 3 ML SYRINGE IVFLUSH ×3 (08:39→21:11)
[2025-07-28 08:40] LABS: Platelet Count 166 X10*3/uL (160-400)
[2025-07-28 08:50] LABS: NT Pro B Type Natriuretic Pept 2375.3 pg/mL (<300)
--- NOTE | 2025-07-28 10:15 | HO.PM.IMPN ---
Subjective Subjective Date of Service: 07/28/25 Interval History: has been non compliant with thickened liquids Physical Exam Exam: Exam: General: AO X 3, ill appearing, sob Resp: rhonchi bilateral, accessory muscles used CVS: S1,S2,RRR GI: soft, non tender, non distended Neuro: motor grossly intact, alert Psych: appropriate affect, appropriate insight Vital Signs: Vital Signs: Last Vital Signs Temp 98.7 F 07/28/25 07:28 Pulse 83 07/28/25 08:23 Resp 20 07/28/25 08:23 BP 180/60 H 07/28/25 07:28 Pulse Ox 89 L 07/28/25 07:28 O2 Del Method Nasal Cannula 07/28/25 07:28 O2 Flow Rate 1 07/28/25 07:28 Oxygen Flow Rate 2 07/20/25 11:16 BMI result Body Mass Index 34.3 Objective Data Active Medications Acetaminophen (Acetaminophen 325 Mg Tablet) 650 mg PO Q6H PRN PRN Reason: Pain, Mild 1-3,fever,headache Last Admin: 07/27/25 20:56 Dose: 650 mg Documented By: JESUS Albuterol/Ipratropium (Albuterol/Iprat 2.5/0.5mg 3 Ml Ampul.Neb) 3 ml INHALE RQ4H WHILE AWAKE PRN PRN Reason: sob Last Admin: 07/28/25 08:21 Dose: 3 ml Documented By: DAY Amlodipine Besylate (Amlodipine Besylate 5 Mg Tablet) 5 mg PO DAILY [facility]; Protocol Last Admin: 07/28/25 08:23 Dose: 5 mg Documented By: MCKENZIE Apixaban (Apixaban 5 Mg Tablet) 5 mg PO BID [facility] Last Admin: 07/28/25 08:23 Dose: 5 mg Documented By: MCKENZIE Atorvastatin Calcium (Atorvastatin Calcium 80 Mg Tablet) 80 mg PO BEDTIME [facility] Last Admin: 07/27/25 20:55 Dose: 80 mg Documented By: JESUS Buspirone HCl (Buspirone Hcl 10 Mg Tablet) 10 mg PO BID [facility] Last Admin: 07/28/25 08:23 Dose: 10 mg Documented By: MCKENZIE Calcium Carbonate (Calcium Carbonate 750 Mg Tab.Chew) 750 mg PO Q4H PRN PRN Reason: Heartburn Carvedilol (Carvedilol 12.5 Mg Tablet) 12.5 mg PO BID [facility]; Protocol Last Admin: 07/28/25 08:34 Dose: 12.5 mg Documented By: MCKENZIE Dextrose (Dextrose 50 % 25 Gm/50 Ml Syringe) 25 gm IVPUSH Q15M PRN; Protocol PRN Reason: per Hypoglycemia Standing Ord. Diltiazem HCl (Diltiazem Hcl Cd 300 Mg Cap.Er.24h) 300 mg PO DAILY [facility]; Protocol Last Admin: 07/28/25 08:23 Dose: 300 mg Documented By: MCKENZIE Docusate Sodium (Docusate Sodium 100 Mg Capsule) 100 mg PO BID PRN PRN Reason: Constipation Last Admin: 07/27/25 20:56 Dose: 100 mg Documented By: JESUS Doxycycline Monohydrate (Doxycycline Monohydrate 100 Mg Capsule) 100 mg PO Q12H [facility] Last Admin: 07/28/25 08:23 Dose: 100 mg Documented By: MCKENZIE Escitalopram Oxalate (Escitalopram Oxalate 10 Mg Tablet) 15 mg PO DAILY [facility] Last Admin: 07/28/25 08:23 Dose: 15 mg Documented By: MCKENZIE Famotidine (Famotidine 20 Mg Tablet) 20 mg PO DAILY PRN PRN Reason: GERD/Acid Reflux Ferrous Sulfate (Ferrous Sulfate 324 Mg Tablet.Dr) 324 mg PO TID [facility] Last Admin: 07/28/25 08:23 Dose: 324 mg Documented By: MCKENZIE Furosemide (Furosemide 20 Mg Tablet) 20 mg PO DAILY [facility]; Protocol Last Admin: 07/28/25 08:23 Dose: 20 mg Documented By: MCKENZIE Glucose (Glucose Gel 15 Gm Gel..Gram.) 15 gm PO Q15M PRN; Protocol PRN Reason: per Hypoglycemia Standing Ord. Ceftriaxone Sodium 1 gm/ (Sodium Chloride) 50 mls @ 100 mls/hr IV Q24H [facility] Last Infusion: 07/27/25 12:27 Dose: Infused Documented By: OLIVIA Insulin Glargine (Insulin Glargine,Hum.Rec.Anlog 100 Unit/Ml 10 Ml Vial) 25 unit SUBCUT BEDTIME [facility] Last Admin: 07/27/25 20:54 Dose: 25 unit Documented By: JESUS Insulin Human Lispro (Insulin Lispro 100 Unit/Ml 3 Ml Vial) 0 unit SUBCUT QIDACHS [facility]; Protocol Last Admin: 07/28/25 08:22 Dose: 2 unit Documented By: MCKENZIE Loratadine (Loratadine 10 Mg Tablet) 10 mg PO DAILY [facility] Last Admin: 07/28/25 08:23 Dose: 10 mg Documented By: MCKENZIE Magnesium Hydroxide (Milk Of Magnesia 30 Ml Oral.Susp) 30 ml PO DAILY PRN PRN Reason: Constipation Last Admin: 07/22/25 09:15 Dose: 30 ml Documented By: GILSON Meclizine HCl (Meclizine Hcl 12.5 Mg Tablet) 12.5 mg PO TID PRN PRN Reason: dizziness Melatonin (Melatonin 3 Mg Tablet) 6 mg PO BEDTIME PRN PRN Reason: Insomnia Methylprednisolone Sodium Succinate (Methylprednisolone Sod Succ 40 Mg/Ml Vial) 60 mg IVPUSH Q12H [facility] Last Admin: 07/28/25 05:10 Dose: 60 mg Documented By: JESUS Montelukast Sodium (Montelukast Sodium 10 Mg Tablet) 10 mg PO BEDTIME [facility] Last Admin: 07/27/25 20:55 Dose: 10 mg Documented By: JESUS Nitroglycerin (Nitroglycerin 0.4 Mg Tab.Subl) 0.4 mg SUBLINGUAL Q5M PRN PRN Reason: chest pain Pantoprazole Sodium (Pantoprazole Sodium 20 Mg Tablet.Dr) 40 mg PO BID@0630,1630 [facility] Last Admin: 07/28/25 06:00 Dose: 40 mg Documented By: JSEUS Polyethylene Glycol (Polyethylene Glycol 3350 17 Gm Powd.Pack) 17 gm PO BID PRN PRN Reason: Constipation Sodium Biphosphate/Sodium Phosphate (Sodium Phosphate,[place]-Dibasic 133 Ml Enema) 133 ml [place] ONCE PRN PRN Reason: Constipation Last Admin: 07/23/25 15:20 Dose: 133 ml Documented By: GILSON Sodium Chloride (0.9 % Sodium Chloride Flush 3 Ml Syringe) [facility] Last Admin: 07/28/25 08:39 Dose: 3 ml Documented By: MCKENZIE Vitamin D (Cholecalciferol (Vitamin D3) 25 Mcg Tablet) 25 mcg PO DAILY [facility] Last Admin: 07/28/25 08:23 Dose: 25 mcg Documented By: MCKENZIE Labs 07/28/25 07:36 07/28/25 07:36 Labs: Laboratory Results - last 24 hr 07/27/25 07/27/25 07/27/25 11:20 15:40 20:01 MCV MCH MCHC RDW Plt Count MPV Absolute Nucleated RBC Nucleated RBC % (auto) Anion Gap Estim Creat Clear Calc Estimated GFR POC Glucose 258 H 232 H 190 H Random Glucose Calcium Magnesium Total Bilirubin Direct Bilirubin AST ALT Alkaline Phosphatase NT-Pro-B Natriuret Pep Total Protein Albumin Procalcitonin 07/28/25 07/28/25 07:24 07:36 MCV 73.1 L MCH 22.6 L MCHC 30.8 L RDW 21.9 H Plt Count 166 D MPV 10.7 Absolute Nucleated RBC 0.000 Nucleated RBC % (auto) 0.0 Anion Gap 12 Estim Creat Clear Calc 60.6 Estimated GFR > 60 POC Glucose 165 H Random Glucose 165 H Calcium 8.2 L Magnesium 2.4 Total Bilirubin 0.6 Direct Bilirubin 0.2 AST 34 H ALT 36 H Alkaline Phosphatase 90 NT-Pro-B Natriuret Pep 2375.3 H Total Protein 5.8 L Albumin 3.1 L Procalcitonin 0.05 Assessment and Plan (1) Anxiety and depression: Status: Acute Plan 74F PMH COPD, ALYSIA, obesity, coronary artery disease status post stent, chronic diastolic CHF, diabetes, paroxysmal AFib, chronic iron-deficiency anemia, tracheal stenosis status post tracheoplasty presented with worsening shortness of breath dyspnea now with acute hypoxic respiratory failure - saturation high 80s on room air, requires 2L multifactorial aspiration pneumonia and COPD with acute decompensation as well as acute on chronic diastolic CHF solumedrol iv 60 b.i.d., continue nebs appears hypo to euvolemic, changed to po lasix ceftriaxone, doxy speech therapy appreciated, noted to be aspirating on thin liquids, recommendations are for NDD3 solids and nectar thick liquids education on compliance CAD apixaban, statin paroxysmal AFib Coreg, apixaban diabetes basal bolus insulin DVT prophylaxis on apixaban full code reason for continued hospitalization: still very symptomatic shortness breath Quality Stroke Does the patient have a stroke diagnosis?: No VTE Prior VTE?: No VTE Risk Level:: Medical - moderate - high VTE Device Contraindication: N/A - Device Ordered VTE Drug Contraindication: N/A - Med Ordered
[2025-07-28 11:55] LABS: Glucose, Whole Blood 261 mg/dL (60-115)
[2025-07-28 16:20] LABS: Glucose, Whole Blood 266 mg/dL (60-115)
[2025-07-28 20:17] LABS: Glucose, Whole Blood 254 mg/dL (60-115)
[2025-07-28] MEDS: Insulin Glargine,Hum.rec.anlog 100 UNIT/ML 10 ML VIAL 25 UNIT SUBCUT (20:49)
[2025-07-28] MEDS: Throat Lozenge, Medicated LOZENGE 1 LOZENGE MUCOUS MEM (21:10)
[2025-07-29] VITALS (7 sets, daily range): BP systolic 156–188; BP diastolic 52–82; PULSE 74–93; RESP 16–22; TEMP 36.3–37.4; O2SAT 91–96
[2025-07-29 07:19] LABS: Glucose, Whole Blood 138 mg/dL (60-115)
[2025-07-29] MEDS: dilTIAZem HCL CD 300 MG CAP.ER.24H PO (07:29)
[2025-07-29] MEDS: Ferrous Sulfate 324 MG TABLET.DR PO ×3 (07:30→21:33)
[2025-07-29 07:44] LABS: Hematocrit 33.2 % (37.0-47.0); Hemoglobin 10.0 g/dl (12.0-16.0); Mean Corpuscular HGB Conc 30.1 g/dl (31.0-35.0); Mean Corpuscular Hemoglobin 22.3 pg (27.0-33.0); Mean Corpuscular Volume 73.9 fL (80.0-98.0); NRBC Abs Auto 0.020 X10*3/uL (0.0-0.012); NRBC Pct Auto 0.1 /100WBC (0.0-0.2); Platelet Count 174 X10*3/uL (160-400); Red Blood Count 4.49 X10*6/uL (4.20-5.50); White Blood Count 19.3 X10*3/uL (4.8-10.8)
[2025-07-29 08:02] LABS: Anion Gap 10 (12-20); Blood Urea Nitrogen 38 mg/dL (9-16); Calcium 8.2 mg/dL (8.4-10.2); Carbon Dioxide 35 mmol/L (22-29); Chloride 98 mmol/L (96-108); Creatinine Clr Calc Pharmacy 60.6; Estimated Glomerular Filt Rate > 60; Potassium 3.3 mmol/L (3.3-5.1); Sodium 140 mmol/L (135-145)
[2025-07-29] MEDS: 0.9 % Sodium Chloride Flush 3 ML SYRINGE IVFLUSH ×2 (09:10→21:40)
--- NOTE | 2025-07-29 10:12 | P.PNIM_ITS ---
Subjective Subjective Date of Service: 07/29/25 Interval History: has been non compliant with thickened liquids Physical Exam 2 Exam: Exam: General: AO X 3, ill appearing, sob Resp: rhonchi bilateral, accessory muscles used CVS: S1,S2,RRR GI: soft, non tender, non distended Neuro: motor grossly intact, alert Psych: appropriate affect, appropriate insight Vital Signs: Vital Signs: Last Vital Signs Temp 98.0 F 07/29/25 07:42 Pulse 79 07/29/25 07:42 Resp 18 07/29/25 07:42 BP 188/80 H 07/29/25 07:42 Pulse Ox 92 07/29/25 07:42 O2 Del Method Nasal Cannula 07/29/25 07:42 O2 Flow Rate 3 07/29/25 07:42 Oxygen Flow Rate 2 07/20/25 11:16 BMI result Body Mass Index 34.3 Objective Data Active Medications Acetaminophen (Acetaminophen 325 Mg Tablet) 650 mg PO Q6H PRN PRN Reason: Pain, Mild 1-3,fever,headache Last Admin: 07/28/25 20:49 Dose: 650 mg Documented By: JESUS Albuterol/Ipratropium (Albuterol/Iprat 2.5/0.5mg 3 Ml Ampul.Neb) 3 ml INHALE RQ4H WHILE AWAKE PRN PRN Reason: sob Last Admin: 07/28/25 15:12 Dose: 3 ml Documented By: THU Amlodipine Besylate (Amlodipine Besylate 10 Mg Tablet) 10 mg PO DAILY [facility]; Protocol Apixaban (Apixaban 5 Mg Tablet) 5 mg PO BID [facility] Last Admin: 07/29/25 07:30 Dose: 5 mg Documented By: MCKENZIE Atorvastatin Calcium (Atorvastatin Calcium 80 Mg Tablet) 80 mg PO BEDTIME [facility] Last Admin: 07/28/25 20:49 Dose: 80 mg Documented By: JESUS Benzocaine (Throat Lozenge, Medicated Lozenge) 1 lozenge MUCOUS MEM Q2H PRN PRN Reason: Sore Throat Last Admin: 07/28/25 21:10 Dose: 1 lozenge Documented By: JESUS Buspirone HCl (Buspirone Hcl 10 Mg Tablet) 10 mg PO BID [facility] Last Admin: 07/29/25 07:30 Dose: 10 mg Documented By: MCKENZIE Calcium Carbonate (Calcium Carbonate 750 Mg Tab.Chew) 750 mg PO Q4H PRN PRN Reason: Heartburn Carvedilol (Carvedilol 12.5 Mg Tablet) 12.5 mg PO BID [facility]; Protocol Last Admin: 07/29/25 07:30 Dose: 12.5 mg Documented By: MCKENZIE Dextrose (Dextrose 50 % 25 Gm/50 Ml Syringe) 25 gm IVPUSH Q15M PRN; Protocol PRN Reason: per Hypoglycemia Standing Ord. Diltiazem HCl (Diltiazem Hcl Cd 300 Mg Cap.Er.24h) 300 mg PO DAILY [facility]; Protocol Last Admin: 07/29/25 07:29 Dose: 300 mg Documented By: MCKENZIE Docusate Sodium (Docusate Sodium 100 Mg Capsule) 100 mg PO BID PRN PRN Reason: Constipation Last Admin: 07/27/25 20:56 Dose: 100 mg Documented By: JESUS Doxycycline Monohydrate (Doxycycline Monohydrate 100 Mg Capsule) 100 mg PO Q12H [facility] Last Admin: 07/29/25 07:29 Dose: 100 mg Documented By: MCKENZIE Escitalopram Oxalate (Escitalopram Oxalate 10 Mg Tablet) 15 mg PO DAILY [facility] Last Admin: 07/29/25 07:30 Dose: 15 mg Documented By: MCKENZIE Famotidine (Famotidine 20 Mg Tablet) 20 mg PO DAILY PRN PRN Reason: GERD/Acid Reflux Ferrous Sulfate (Ferrous Sulfate 324 Mg Tablet.) 324 mg PO TID [facility] Last Admin: 07/29/25 07:30 Dose: 324 mg Documented By: MCKENZIE Furosemide (Furosemide 20 Mg Tablet) 20 mg PO DAILY [facility]; Protocol Last Admin: 07/29/25 07:29 Dose: 20 mg Documented By: MCKENZIE Glucose (Glucose Gel 15 Gm Gel..Gram.) 15 gm PO Q15M PRN; Protocol PRN Reason: per Hypoglycemia Standing Ord. Hydralazine HCl (Hydralazine Hcl 25 Mg Tablet) 25 mg PO TID [facility]; Protocol Ceftriaxone Sodium 1 gm/ (Sodium Chloride) 50 mls @ 100 mls/hr IV Q24H [facility] Last Infusion: 07/28/25 13:05 Dose: Infused Documented By: MCKENZIE Insulin Glargine (Insulin Glargine,Hum.Rec.Anlog 100 Unit/Ml 10 Ml Vial) 25 unit SUBCUT BEDTIME [facility] Last Admin: 07/28/25 20:49 Dose: 25 unit Documented By: JESUS Insulin Human Lispro (Insulin Lispro 100 Unit/Ml 3 Ml Vial) 0 unit SUBCUT QIDACHS [facility]; Protocol Last Admin: 07/29/25 07:30 Dose: 2 unit Documented By: MCKENZIE Loratadine (Loratadine 10 Mg Tablet) 10 mg PO DAILY [facility] Last Admin: 07/29/25 07:30 Dose: 10 mg Documented By: MCKENZIE Magnesium Hydroxide (Milk Of Magnesia 30 Ml Oral.Susp) 30 ml PO DAILY PRN PRN Reason: Constipation Last Admin: 07/22/25 09:15 Dose: 30 ml Documented By: GILSON Meclizine HCl (Meclizine Hcl 12.5 Mg Tablet) 12.5 mg PO TID PRN PRN Reason: dizziness Melatonin (Melatonin 3 Mg Tablet) 6 mg PO BEDTIME PRN PRN Reason: Insomnia Methylprednisolone Sodium Succinate (Methylprednisolone Sod Succ 40 Mg/Ml Vial) 60 mg IVPUSH Q12H [facility] Last Admin: 07/29/25 06:24 Dose: 60 mg Documented By: JESUS Montelukast Sodium (Montelukast Sodium 10 Mg Tablet) 10 mg PO BEDTIME [facility] Last Admin: 07/28/25 20:49 Dose: 10 mg Documented By: JESUS Nitroglycerin (Nitroglycerin 0.4 Mg Tab.Subl) 0.4 mg SUBLINGUAL Q5M PRN PRN Reason: chest pain Pantoprazole Sodium (Pantoprazole Sodium 20 Mg Tablet.Dr) 40 mg PO BID@0630,1630 [facility] Last Admin: 07/29/25 07:11 Dose: 40 mg Documented By: JESUS Polyethylene Glycol (Polyethylene Glycol 3350 17 Gm Powd.Pack) 17 gm PO BID PRN PRN Reason: Constipation Sodium Biphosphate/Sodium Phosphate (Sodium Phosphate,[place]-Dibasic 133 Ml Enema) 133 ml ID ONCE PRN PRN Reason: Constipation Last Admin: 07/23/25 15:20 Dose: 133 ml Documented By: IGLSON Sodium Chloride (0.9 % Sodium Chloride Flush 3 Ml Syringe) 3 ml IVFLUSH QSHIFT [facility] Last Admin: 07/29/25 09:10 Dose: 3 ml Documented By: MCKENZIE Vitamin D (Cholecalciferol (Vitamin D3) 25 Mcg Tablet) 25 mcg PO DAILY [facility] Last Admin: 07/29/25 07:29 Dose: 25 mcg Documented By: MCKENZIE Labs 07/29/25 06:56 07/29/25 06:56 Labs: Laboratory Results - last 24 hr 07/28/25 07/28/25 07/28/25: 16:15 20:09 MCV MCH MCHC RDW Plt Count MPV Absolute Nucleated RBC Nucleated RBC % (auto) Anion Gap Estim Creat Clear Calc Estimated GFR POC Glucose 261 H 266 H 254 H Random Glucose Calcium 07/29/25 07/29/25 06:56 07:15 MCV 73.9 L MCH 22.3 L MCHC 30.1 L RDW 22.2 H Plt Count 174 MPV 10.9 Absolute Nucleated RBC 0.020 H Nucleated RBC % (auto) 0.1 Anion Gap 10 L Estim Creat Clear Calc 60.6 Estimated GFR > 60 POC Glucose 138 H Random Glucose 116 H Calcium 8.2 L Assessment and Plan (1) Anxiety and depression: Status: Acute Plan 74F PMH COPD, ALYSIA, obesity, coronary artery disease status post stent, chronic diastolic CHF, diabetes, paroxysmal AFib, chronic iron-deficiency anemia, tracheal stenosis status post tracheoplasty presented with worsening shortness of breath dyspnea now with acute hypoxic respiratory failure - saturation high 80s on room air, requires 2L multifactorial aspiration pneumonia and COPD with acute decompensation as well as acute on chronic diastolic CHF solumedrol iv 60 b.i.d., continue nebs appears hypo to euvolemic, changed to po lasix continue ceftriaxone, doxy speech therapy appreciated, noted to be aspirating on thin liquids, recommendations are for NDD3 solids and nectar thick liquids educatws on compliance check cxr abd pain due to constipation enema uncotnrolled htn amldopine increased to 10mg, added hydralazine, conitnue coreg CAD apixaban, statin paroxysmal AFib Coreg, apixaban diabetes basal bolus insulin DVT prophylaxis on apixaban full code reason for continued hospitalization: still very symptomatic shortness breath Quality Stroke Does the patient have a stroke diagnosis?: No VTE Prior VTE?: No VTE Risk Level:: Medical - moderate - high VTE Device Contraindication: N/A - Device Ordered VTE Drug Contraindication: N/A - Med Ordered
[2025-07-29 11:02] LABS: Glucose, Whole Blood 256 mg/dL (60-115)
[2025-07-29 16:26] LABS: Glucose, Whole Blood 259 mg/dL (60-115)
[2025-07-29] MEDS: Insulin Glargine,Hum.rec.anlog 100 UNIT/ML 10 ML VIAL 25 UNIT SUBCUT (21:47)
[2025-07-30] VITALS (10 sets, daily range): BP systolic 150–176; BP diastolic 58–90; PULSE 79–94; RESP 16–26; TEMP 36.2–36.8; O2SAT 88–97
--- NOTE | 2025-07-30 07:00 | CA_ITS ---
Transthoracic Echocardiogram Patient (Last, First, Middle): Saima Restrepo A Gender: Female Date of : 1950 Age: 74 Procedure Date: 07/30/2025 Procedure Type: Transthoracic Echocardiogram [place] [facility] [place]: 162.56 cm Weight: 90.27 kg BSA: 1.95 m2 Heart Rate: 80 bpm BP: 174 / 58 mmHg Sql Data Architect: SB Referring MD: Adam Worley MD Symptoms: chf Study Quality: Fair, contrast ECG Rhythm: Sinus Conclusions: - Normal left ventricular cavity size. There is moderately increased left ventricular wall thickness. The left ventricular systolic function is hyperdynamic. The visually estimated ejection fraction is >70%. - There is severe septal asymmetric hypertrophy. - Elevated filling pressures. - Normal right ventricular cavity size and systolic function. - There is moderate aortic valve stenosis. Findings Procedure Information Contrast agent, definity, is being given per protocol without apparent complications. Left Ventricle Normal left ventricular cavity size. There is moderately increased left ventricular wall thickness. The left ventricular systolic function is hyperdynamic. The visually estimated ejection fraction is >70%. There is no evidence of regional wall motion abnormalities. There is no dynamic left ventricular obstruction. Abnormal diastolic function is noted. Spectral Doppler is indicative of an impaired relaxation filling pattern. Elevated filling pressures. There is severe septal asymmetric hypertrophy. Right Ventricle Normal right ventricular cavity size and systolic function. Atria The left atrium is normal in size. The right atrium was not well visualized. Aortic Valve There is moderate calcification of the aortic valve. There is moderate aortic valve stenosis. The peak aortic velocity is 3.64 m/s. The mean gradient is 32 mmHg. The aortic valve area is 1.50 cm2. There is no aortic valve regurgitation. Mitral Valve The mitral valve appears normal. There is mild mitral annular calcification. There is no mitral valve regurgitation. There is no mitral valve stenosis. Pulmonic Valve The pulmonic valve is normal. There is no pulmonic valve regurgitation. Tricuspid Valve Normal tricuspid valve structure. There is no tricuspid valve regurgitation. Tricuspid regurgitation envelope is inadequate for calculation of right ventricular systolic pressure. Normal right atrial pressure. Great Vessels All visible segments of the aorta are normal in size. The visualized portions of the pulmonary artery and branches are normal. Venous The inferior vena cava is normal in size and collapses greater than 50% with inspiration. Pericardium/Pleural There is no evidence of pericardial effusion. Prior Study Comparison Changes noted compared to prior study dated: 07/05/2024. Moderate present Measurements 2D Linear Measurements IVSd: 1.30 0.6-0.9/0.6-1.0 cm LVIDd: 4.61 3.9-5.3/4.2-5.9 cm LVIDd Index: 2.36 2.4-3.2/2.2-3.1 cm/m2 LVIDs: 2.31 2.0-3.6 cm LVPWd: 1.34 0.7-1.1 cm LA Diam: 3.40 2.7-3.8/3.0-4.0 cm LAIDs Index: 1.74 1.5-2.3 cm/m2 LV Mass: 294.43 67-162/88-224 g LV Mass Index: 150.99 43-95/49-115 g/m2 LVOT Diam: 1.90 3.0+(-)1.3 cm 2D Systolic Function EF 4C: 85.50 >55% EF 2C: 92.30 >55% EF BiP: 89.50 >55% Mitral Valve MV VTI: 0.47 MV Pk Yunier: 2.01 MV Mn Yunier: 1.22 MV Pk Grad: 16.00 MV Mn Grad: 7.00 MV Pk E: 1.29 MV PK A: 1.91 MV Decel Time: 365.00 E/A: 0.70 E'Lateral: 3.70 E'Medial: 3.70 E/E' Med: 34.90 E/E' Lat: 34.90 PHT: 107.00 MVA PHT: 2.06 MVA Continuity: 2.13 Decel [place]: 3.54 Aortic Valve AoV Pk Yunier: 3.64 AoV Mn Yunier: 2.66 AoV VTI: 0.67 AoV Pk Grad: 53.00 Aov Mn Grad: 32.00 KIKI Cont.VTI: 1.50 LVOT LVOT Pk Yunier: 1.63 LVOT Mn Yunier: 1.23 LVOT VTI: 0.35 LVOT Pk Grad: 11.00 LVOT Mn Grad: 7.00 LVOT Diam: 1.90 LVOT Area: 2.84 Diastolic Function MV Pk E: 1.29 MV Pk A: 1.91 E/A: 0.70 E'Medial: 3.70 E/E' Med: 34.90 E' Laterial: 3.70 E/E' Lat: 34.90 Right Ventricle TAPSE (mm): 16.90 TVS' Yunier: 18.30 Tricuspid Valve RA Press: 8.00 Great Vessels Aorta Sinus of Valsalva: 3.40 2.0-3.5 cm Ao Asc: 3.20 2.1-3.4 cm Pulmonary Valve PV Pk Yunier: 1.53 Peak PV Grad: 9.00 Updated in Other Vendor System with Status of Final Brad French MD electronically signed on 08/01/2025 10:45:24 AM with status of Final
[2025-07-30 08:01] LABS: Hematocrit 34.2 % (37.0-47.0); Hemoglobin 10.2 g/dl (12.0-16.0); Mean Corpuscular HGB Conc 29.8 g/dl (31.0-35.0); Mean Corpuscular Hemoglobin 22.6 pg (27.0-33.0); Mean Corpuscular Volume 75.8 fL (80.0-98.0); NRBC Abs Auto 0.000 X10*3/uL (0.0-0.012); NRBC Pct Auto 0.0 /100WBC (0.0-0.2); Platelet Count 162 X10*3/uL (160-400); Red Blood Count 4.51 X10*6/uL (4.20-5.50); White Blood Count 21.7 X10*3/uL (4.8-10.8)
[2025-07-30 08:17] LABS: Anion Gap 13 (12-20); Blood Urea Nitrogen 40 mg/dL (9-16); Calcium 8.2 mg/dL (8.4-10.2); Carbon Dioxide 34 mmol/L (22-29); Chloride 100 mmol/L (96-108); Creatinine Clr Calc Pharmacy 51.1; Estimated Glomerular Filt Rate 53; Potassium 3.7 mmol/L (3.3-5.1); Sodium 143 mmol/L (135-145)
[2025-07-30 08:28] LABS: Glucose, Whole Blood 250 mg/dL (60-115)
[2025-07-30] MEDS: Ferrous Sulfate 324 MG TABLET.DR PO ×3 (08:48→20:22)
[2025-07-30] MEDS: dilTIAZem HCL CD 300 MG CAP.ER.24H PO (08:49)
[2025-07-30] MEDS: 0.9 % Sodium Chloride Flush 3 ML SYRINGE IVFLUSH ×3 (08:50→20:26)
--- NOTE | 2025-07-30 10:08 | MHC.SL.SWA ---
Speech Pathologist Impression: Mild to moderate oropharyngeal dysphagia Risk of Aspiration Due to: Respiratory status Hx of GERD Dysphasia Diet Status: Recommend continue on Chopped/Advanced (NDD3), [place] Thick liquids, pills whole with puree. Liquid Consistency and Strategies for Safe Swallow: Liquid Intake Recommendation: [place] Thick Liquid Intake Strategies: Small Sips Solid Food Consistency: Dietary Recommendations: Chopped/Advanced (NDD3) Additional Modifications to Solid Foods: Unthickened water permitted for hydration/pleasure, NOT with PO. Oral Medication Intake: Whole with Puree Please contact the pharmacy regarding appropriate crushable or liquid drug formulations that are available whenever modified delivery is recommended. Compensatory Strategies and Precautions to be Taken for Safe Swallow: Sitting Upright (90 deg) Liquids from Cup Liquids from Straw Small Bites and Sips Alternate Liquids/Solids Supervision While Eating and Drinking for Safe Swallow: Intermittent Supervision Foods to Avoid: Swallowing Recommended Treatments: Compens. Strategy Educat. Recommendation for Speech: Inpatient Speech Therapy Speech Therapy through [facility] Comment: Pt seen for dysphagia treatment, RN consulted, noting pt has been taking meds whole with NTL. Pt on 2L continuous oxygen via NC. Increased WOB observed with speaking, repositioning. Pt endorses this to be constant. Pt wears BiPap at night. SOFTLINES SUPERVISOR reviewed diet recc with pt, who verbalized understanding but requested water. A bottle of Diet Coke was at bedside, RN reported pt daughter continues to bring in soda and pt is non-compliant with having soda thickened. Trials of water presented upon repositioning pt; pt coughed after first sip, but given wait time and second attempt, pt took smaller sip without coughing. Pt continued to sip water by small amounts with slow pacing, lengthy breaks and double swallow. Pt provided with reminders for safety, SOFTLINES SUPERVISOR permitting water in absence of PO for hydration/pleasure. Pt tolerated NTL and bites of samy cracker without overt s/s of aspiration. Pt endorsed hx of GERD, managed historically with Prilosec. SOFTLINES SUPERVISOR reiterated safety, diet recc and updated board. RN and MD notified via secure text. SOFTLINES SUPERVISOR continues to follow, recc SOFTLINES SUPERVISOR for dysphagia management upon d/c from inpatient. Frequency/Duration: M-F Date Range for Service Req: Timeline to reassess: Keycase Assembler Clinican/Clinical Fellow: No Supervisory Statement: I have reviewed and agree with the student/clinical fellow's documentation: N/A Speech Language Pathologist: Akosua Lorenzo M.S., [facility]-SOFTLINES SUPERVISOR
[2025-07-30 11:35] LABS: Glucose, Whole Blood 278 mg/dL (60-115)
[2025-07-30 16:07] LABS: Glucose, Whole Blood 337 mg/dL (60-115)
--- NOTE | 2025-07-30 16:20 | HO.PM.IMPN ---
Subjective Subjective Date of Service: 07/30/25 Interval History: Continues to have shortness of breath that is somewhat worsening. Speech recommendation noted Review of Systems Denies chest pain Admits shortness of breath that has worsened since admission Denies nausea vomiting diarrhea Denies fever chills Physical Exam Vital Signs: Vital Signs: Last Vital Signs Temp 97.1 F 07/30/25 16:00 Pulse 92 07/30/25 16:00 Resp 16 07/30/25 16:00 BP 160/70 H 07/30/25 16:00 Pulse Ox 91 L 07/30/25 16:00 O2 Del Method Nasal Cannula 07/30/25 16:00 O2 Flow Rate 3 07/30/25 16:00 Oxygen Flow Rate 2 07/20/25 11:16 BMI result Body Mass Index 34.3 Const: Other: Awake alert able to speak in short sentences Resp: Other: Diminished throughout with dense scattered expiratory wheezes Cardio: Other: No S4; positive S1-S2; no S3 murmurs rubs or gallops GI: Other: Soft nontender nondistended normoactive bowel sounds Extrem: Other: No edema bilaterally Objective Data Active Medications Acetaminophen (Acetaminophen 325 Mg Tablet) 650 mg PO Q6H PRN PRN Reason: Pain, Mild 1-3,fever,headache Last Admin: 07/30/25 04:12 Dose: 650 mg Documented By: BECK Albuterol/Ipratropium (Albuterol/Iprat 2.5/0.5mg 3 Ml Ampul.Neb) 3 ml INHALE RQ4H WHILE AWAKE PRN PRN Reason: sob Last Admin: 07/28/25 15:12 Dose: 3 ml Documented By: THU Amlodipine Besylate (Amlodipine Besylate 10 Mg Tablet) 10 mg PO DAILY [facility]; Protocol Last Admin: 07/30/25 08:48 Dose: 10 mg Documented By: OLIVIA Apixaban (Apixaban 5 Mg Tablet) 5 mg PO BID [facility] Last Admin: 07/30/25 08:49 Dose: 5 mg Documented By: OLIVIA Atorvastatin Calcium (Atorvastatin Calcium 80 Mg Tablet) 80 mg PO BEDTIME [facility] Last Admin: 07/29/25 21:33 Dose: 80 mg Documented By: BECK Benzocaine (Throat Lozenge, Medicated Lozenge) 1 lozenge MUCOUS MEM Q2H PRN PRN Reason: Sore Throat Last Admin: 07/28/25 21:10 Dose: 1 lozenge Documented By: JESUS Buspirone HCl (Buspirone Hcl 10 Mg Tablet) 10 mg PO BID [facility] Last Admin: 07/30/25 08:48 Dose: 10 mg Documented By: OLIVIA Calcium Carbonate (Calcium Carbonate 750 Mg Tab.Chew) 750 mg PO Q4H PRN PRN Reason: Heartburn Carvedilol (Carvedilol 12.5 Mg Tablet) 12.5 mg PO BID [facility]; Protocol Last Admin: 07/30/25 08:49 Dose: 12.5 mg Documented By: OLIVIA Dextrose (Dextrose 50 % 25 Gm/50 Ml Syringe) 25 gm IVPUSH Q15M PRN; Protocol PRN Reason: per Hypoglycemia Standing Ord. Diltiazem HCl (Diltiazem Hcl Cd 300 Mg Cap.Er.24h) 300 mg PO DAILY [facility]; Protocol Last Admin: 07/30/25 08:49 Dose: 300 mg Documented By: OLIVIA Docusate Sodium (Docusate Sodium 100 Mg Capsule) 100 mg PO BID PRN PRN Reason: Constipation Last Admin: 07/27/25 20:56 Dose: 100 mg Documented By: JESUS Escitalopram Oxalate (Escitalopram Oxalate 10 Mg Tablet) 15 mg PO DAILY [facility] Last Admin: 07/30/25 08:49 Dose: 15 mg Documented By: OLIVIA Famotidine (Famotidine 20 Mg Tablet) 20 mg PO DAILY PRN PRN Reason: GERD/Acid Reflux Ferrous Sulfate (Ferrous Sulfate 324 Mg Tablet.Dr) 324 mg PO TID [facility] Last Admin: 07/30/25 08:48 Dose: 324 mg Documented By: OLIVIA Furosemide (Furosemide 20 Mg Tablet) 20 mg PO DAILY [facility]; Protocol Last Admin: 07/30/25 08:48 Dose: 20 mg Documented By: OLIVIA Glucose (Glucose Gel 15 Gm Gel..Gram.) 15 gm PO Q15M PRN; Protocol PRN Reason: per Hypoglycemia Standing Ord. Hydralazine HCl (Hydralazine Hcl 25 Mg Tablet) 25 mg PO TID [facility]; Protocol Last Admin: 07/30/25 08:48 Dose: 25 mg Documented By: OLIVIA Vancomycin HCl 1,500 mg/ (Sodium Chloride) 500 mls @ 333.333 mls/hr IV ONCE ONE Stop: 07/30/25 17:46 Piperacillin Sod/Tazobactam (Sod 3.375 gm/ Sodium Chloride) 50 mls @ 100 mls/hr IV Q6H [facility] Insulin Glargine (Insulin Glargine,Hum.Rec.Anlog 100 Unit/Ml 10 Ml Vial) 25 unit SUBCUT BEDTIME [facility] Last Admin: 07/29/25 21:47 Dose: 25 unit Documented By: BECK Insulin Human Lispro (Insulin Lispro 100 Unit/Ml 3 Ml Vial) 0 unit SUBCUT QIDACHS [facility]; Protocol Last Admin: 07/30/25 13:43 Dose: 6 unit Documented By: OLIVIA Loratadine (Loratadine 10 Mg Tablet) 10 mg PO DAILY [facility] Last Admin: 07/30/25 08:48 Dose: 10 mg Documented By: OLIVIA Magnesium Hydroxide (Milk Of Magnesia 30 Ml Oral.Susp) 30 ml PO DAILY PRN PRN Reason: Constipation Last Admin: 07/22/25 09:15 Dose: 30 ml Documented By: GILSON Meclizine HCl (Meclizine Hcl 12.5 Mg Tablet) 12.5 mg PO TID PRN PRN Reason: dizziness Melatonin (Melatonin 3 Mg Tablet) 6 mg PO BEDTIME PRN PRN Reason: Insomnia Methylprednisolone Sodium Succinate (Methylprednisolone Sod Succ 125 Mg/2 Ml Vial) 60 mg IVPUSH Q6H [facility] Montelukast Sodium (Montelukast Sodium 10 Mg Tablet) 10 mg PO BEDTIME [facility] Last Admin: 07/29/25 21:32 Dose: 10 mg Documented By: BECK Nitroglycerin (Nitroglycerin 0.4 Mg Tab.Subl) 0.4 mg SUBLINGUAL Q5M PRN PRN Reason: chest pain Pantoprazole Sodium (Pantoprazole Sodium 20 Mg Tablet.Dr) 40 mg PO BID@0630,1630 [facility] Last Admin: 07/30/25 06:12 Dose: 40 mg Documented By: BECK Pharmacy Consult (Consult Rx Vancomycin Dosing) 1 each MISCELLANE DAILY PRN PRN Reason: Consult order Polyethylene Glycol (Polyethylene Glycol 3350 17 Gm Powd.Pack) 17 gm PO BID PRN PRN Reason: Constipation Sodium Chloride (0.9 % Sodium Chloride Flush 3 Ml Syringe) 3 ml IVFLUSH QSHIFT [facility] Last Admin: 07/30/25 08:50 Dose: 3 ml Documented By: OLIVIA Vitamin D (Cholecalciferol (Vitamin D3) 25 Mcg Tablet) 25 mcg PO DAILY [facility] Last Admin: 07/30/25 08:49 Dose: 25 mcg Documented By: OLIVIA Labs 07/30/25 07:14 07/30/25 07:14 Labs: Laboratory Results - last 24 hr 07/29/25 07/30/25 07/30/25 16:22 07:14 08:24 MCV 75.8 L MCH 22.6 L MCHC 29.8 L RDW 22.3 H Plt Count 162 MPV 11.0 Absolute Nucleated RBC 0.000 Nucleated RBC % (auto) 0.0 Anion Gap 13 Estim Creat Clear Calc 51.1 Estimated GFR 53 POC Glucose 259 H 250 H Random Glucose 195 H Calcium 8.2 L 07/30/25 07/30/25 11:03 16:03 MCV MCH MCHC RDW Plt Count MPV Absolute Nucleated RBC Nucleated RBC % (auto) Anion Gap Estim Creat Clear Calc Estimated GFR POC Glucose 278 H 337 H Random Glucose Calcium Assessment and Plan (1) Aspiration pneumonia: Status: Acute (2) AG (acute kidney injury): Status: Acute (3) DM type 2 (diabetes mellitus, type 2): Status: Acute Plan 74F PMH COPD, ALYSIA, obesity, coronary artery disease status post stent, chronic diastolic CHF, diabetes, paroxysmal AFib, chronic iron-deficiency anemia, tracheal stenosis status post tracheoplasty presented with worsening shortness of breath 1.Aspiration pneumonia(suspected)/COPD with acute decompensation - increase solumedrol 60 q.6 hours; continue nebs -DC ceftriaxone/doxy.. Given suspected aspiration was switch to vanco and doxycycline given worsening clinical picture and increased white count -speech therapy recommendations implemented 2. Acute on chronic diastolic heart failure -switch to p.o. Lasix -follow renals and divalent 3. Hypertension -amldopine increased to 10mg/added hydralazine -increase Coreg to 25 mg b.i.d. -follow clinically 4.CAD -stable and well compensated -continue current therapies 5.Paroxysmal AFib -exam/EKG demonstrate normal sinus rhythm -continuing new Eliquis; acceptable rate control 6.Diabetes -acceptable control on current therapies -lispro correctional scale -adjust as indicated DVT prophylaxis on apixaban full code reason for continued hospitalization: still very symptomatic shortness breath Quality Stroke Does the patient have a stroke diagnosis?: No VTE Prior VTE?: No VTE Risk Level:: Medical - moderate - high VTE Device Contraindication: N/A - Device Ordered VTE Drug Contraindication: N/A - Med Ordered
--- NOTE | 2025-07-30 17:33 | PHA.PROG ---
Admission Date/Time: July 21, 2025 09:30 Indication:ESPIRATORY INFECTIONR Weight in k.6 kg Adjusted body weight in Kg: [place] body weight in Kg: Obesity Dosing Indication % IBW: Serum Creatinine - Last 168 Hours 07/24/25 07/25/25 07/26/25 09:11 06:57 06:12 Creatinine 1.29 1.11 0.94 07/28/25 07/29/25 07/30/25 07:36 06:56 07:14 Creatinine 0.86 0.86 1.02 Estimated CrCl and GFR - Last 168 Hours 07/24/25 07/25/25 07/26/25 09:11 06:57 06:12 Estim Creat Clear Calc 40.4 47.0 55.5 Estimated GFR 40 48 58 07/28/25 07/29/25 07/30/25 07:36 06:56 07:14 Estim Creat Clear Calc 60.6 60.6 51.1 Estimated GFR > 60 > 60 53 Vancomycin Loading Dose: 2000 MG Current Vancomycin Dosing Regimen: 750 MG Q 12 HOURS Vancomycin Monitoring using AUC goal of 400 - 600 range with trough as surrogate marker: Date and Time for next Vancomycin Level to be drawn: 08/01/25 0600 Pharmacist Comments on Vancomycin Plan:PREDICTED AUC OF 532 Vancomycin dosing will take advantage of [employer] as a clinical decision support tool that uses Bayesian modeling to calculate individual patient's pharmacokinetic parameters and forecast the patient's drug concentration time course with the target goal AUC 24 range of 400 - 600 mg/L/hr.
[2025-07-30] MEDS: vancomycin/NS 2,000 MG/500 ML PLAST..BAG 250 MG IV (18:09)
[2025-07-30 20:55] LABS: Glucose, Whole Blood 339 mg/dL (60-115)
[2025-07-30] MEDS: Insulin Glargine,Hum.rec.anlog 100 UNIT/ML 10 ML VIAL 25 UNIT SUBCUT (21:03)
[2025-07-31] VITALS (8 sets, daily range): BP systolic 158–180; BP diastolic 59–80; PULSE 71–88; RESP 16–18; TEMP 36.7–37.1; O2SAT 85–94
[2025-07-31] MEDS: guaiFENesin 200 MG/10 ML 10 ML LIQUID PO ×2 (02:25→20:13)
[2025-07-31 07:24] LABS: Glucose, Whole Blood 183 mg/dL (60-115)
[2025-07-31 07:27] LABS: Alanine Aminotransferase 46 U/L (0-31); Albumin Level 2.9 g/dL (3.5-5.0); Alkaline Phosphatase 87 U/L (39-117); Anion Gap 15 (12-20); Aspartate Amino Transferase 40 U/L (5-31); Blood Urea Nitrogen 48 mg/dL (9-16); Calcium 8.3 mg/dL (8.4-10.2); Carbon Dioxide 30 mmol/L (22-29); Chloride 105 mmol/L (96-108); Creatinine Clr Calc Pharmacy 52.7; Estimated Glomerular Filt Rate 55; Potassium 3.6 mmol/L (3.3-5.1); Sodium 146 mmol/L (135-145); Total Protein 5.6 g/dL (6.5-8.0)
[2025-07-31 07:30] LABS: Hematocrit 32.5 % (37.0-47.0); Hemoglobin 10.1 g/dl (12.0-16.0); Imm Gran Abs Auto 0.23 X10*3/uL (0.00-0.03); Imm Gran Pct Auto 1.0 % (0.0-0.4); Lymphocytes Absolute Auto 0.3 X10*3/uL (1.2-4.9); MANUAL DIFF FLAG SCAN; Mean Corpuscular HGB Conc 31.1 g/dl (31.0-35.0); Mean Corpuscular Hemoglobin 23.0 pg (27.0-33.0); Mean Corpuscular Volume 74.0 fL (80.0-98.0); NRBC Abs Auto 0.000 X10*3/uL (0.0-0.012); NRBC Pct Auto 0.0 /100WBC (0.0-0.2); Red Blood Count 4.39 X10*6/uL (4.20-5.50); SCAN SMEAR FLAG 1; White Blood Count 22.7 X10*3/uL (4.8-10.8)
[2025-07-31] MEDS: dilTIAZem HCL CD 300 MG CAP.ER.24H PO (07:49)
[2025-07-31] MEDS: Ferrous Sulfate 324 MG TABLET.DR PO ×3 (07:49→20:03)
[2025-07-31 07:54] LABS: Platelet Count 110 X10*3/uL (160-400)
[2025-07-31] MEDS: 0.9 % Sodium Chloride Flush 3 ML SYRINGE IVFLUSH ×3 (07:56→23:02)
--- NOTE | 2025-07-31 09:33 | HO.WOUND ---
Wound Consult: Follow up 74yr old?[place] [facility] [place] See progress notes and H&P for detailed history.? Wound consult placed for Buttock redness.? Patient agreeable to assessment and photo documentation.? Patient reports baseline incontinence suspect Stress Incontinence based on patient self report. Patient reports tenderness to sacrum due to decreased activity prior to admission. Sacrum 07/23/25 Sacrum and Gluteal Fold 07/23/25 Sacrum 07/31/25 Etiology: ?Deep Tissue Injury - ?Present on Admission- in evolution - appears to be fading with pale purple diffuse discoloration Measurements: 2cm x 2cm x 0cm Wound Bed: intact red and dark maroon hyperpigmented tissue nonblanchable Drainage / Odor: None Edges: ? irregular Meg wound: red pink blanchable tissue - MASD noted to perineal area ? No Induration, Fluctuance or Warmth noted Pain: tenderness noted to sacrum Goals of Treatment: ? Off Load Pressure - triad paste - staff reports foam trapping moisture and removed Purewick adjusted to sit within the labia majora - in an effort to capture urine as she was wet with urine despite purewick in use. Recommend barrier cream to perineal area. Bilateral Heels assessed for intact dry heels no redness noted - recommend preventative measures be applied such as off loading with pillows and or foam dressing application. Recommendations: 1. Turn and Reposition every 2 hours and as needed for patient comfort.? Use pillows or wedges to support off loading positions. 2. Off Load all bony prominences with use of pillows and heel boots if needed.? Apply Preventative foams where needed. ? 3. Monitor for incontinence and moisture control, use barrier creams when needed for prevention and treatment. 4. Provide adequate and supplemental nutrition.? 5. Order low air loss mattress. 6. When applicable maintain blood glucose levels per Providers order. Sacrum? - Off Load Pressure with Q2 hr turns and use of pillows - Cleanse with PH balance spray or wipes, pat dry. ?Apply thin layer of Triad to wound bed - only pat and dab no scrub and rub when soiling occurs. Reapply thin layer PRN after each episode of incontinence. Perineal - Cleanse with PH balance spray or wipes, pat dry. ?Apply thin layer of barrier cream to affected area.? Apply twice daily and Reapply thin layer PRN after each episode of incontinence. Bilateral Heels? - Elevate heels off of bed surface with pillows.? Float heels off of pillows.? Apply skin prep allow to dry.? Apply heel foam dressings, peel back and assess Q shift and change every 5-7 days and PRN. Re-consult wound care Nurse for wound deterioration or wound changes.
[2025-07-31] MEDS: Albuterol/Iprat 2.5/0.5MG 3 ML AMPUL.NEB INHALE (09:53)
[2025-07-31 11:17] LABS: Glucose, Whole Blood 272 mg/dL (60-115)
--- NOTE | 2025-07-31 12:36 | MHC.CM.PN ---
Pt. is not ready to DC, she is still SOB, DCP is home with [facility] and family support.
--- NOTE | 2025-07-31 14:06 | MHC.SL.SWA ---
Speech Pathologist Impression: Mild Oropharyngeal dyphagia Risk of Aspiration Due to: COPD/current respiratory status, Hx of GERD Dysphasia Diet Status: Recommend CONTINUE on Chopped/Advanced (NDD3), NECTAR THICK liquids, pills WHOLE in puree. Liquid Consistency and Strategies for Safe Swallow: Liquid Intake Recommendation: [place] Thick Liquid Intake Strategies: Small Sips Solid Food Consistency: Dietary Recommendations: Chopped/Advanced (NDD3) Additional Modifications to Solid Foods: Unthickened water permitted for hydration/pleasure, NOT with PO. Oral Medication Intake: Whole with Puree Please contact the pharmacy regarding appropriate crushable or liquid drug formulations that are available whenever modified delivery is recommended. Compensatory Strategies and Precautions to be Taken for Safe Swallow: Sitting Upright (90 deg) Liquids from Cup Liquids from Straw Small Bites and Sips Alternate Liquids/Solids Supervision While Eating and Drinking for Safe Swallow: Intermittent Supervision Foods to Avoid: Swallowing Recommended Treatments: Compens. Strategy Educat. Recommendation for Speech: Inpatient Speech Therapy Speech Therapy through [facility] Comment: Patient met in room for dysphagia therapy. Trial of thin liquids this date. Patient suppressing cough; changes in breathing noted following thin liquids. After encouragement and cue to cough; patient with delayed coughing on thin liquids. Cough perceived as congested and nonproductive. Patient educated on coughing= airway protection and encouraged to cough vs suppress. Patient with no coughing on NTL cranberry juice. Patient given pudding with medium sized samy cracker pieces. Occasional prolonged mastication with munch vs rotary chew, likely current baseline given patient without upper denture. Patient with no overt s/sx of penetration/aspiration on solids today. Education of diet recommendations and reason for modifications given today. Education of free water protocol also given today. Patient expressing understanding for all education and in agreement with POC. Continues with SOB and fatigues easily during meals. Reported that she was unable to tolerate her CPAP last night. Patient not appropriate for upgrade. Recommend CONTINUE with NDD3 (chopped/advanced), NECTAR THICK Liquids with intermittent supervision and medications WHOLE in puree. Frequency/Duration: M-F Date Range for Service Req: Timeline to reassess: Resident Care Aid Clinican/Clinical Fellow: No Supervisory Statement: I have reviewed and agree with the student/clinical fellow's documentation: N/A Speech Language Pathologist: Mary Mcarthur M.A., CCC-TATTOO TECHNICIAN
--- NOTE | 2025-07-31 14:27 | P.PNIM_ITS ---
Subjective Subjective Date of Service: 07/31/25 Interval History: No acute events overnight. No clinical change. States compliant with diet Review of Systems Denies chest pain Admits shortness of breath that has worsened since admission Denies nausea vomiting diarrhea Denies fever chills Physical Exam 2 Vital Signs: Vital Signs: Last Vital Signs Temp 98.2 F 07/31/25 11:02 Pulse 78 07/31/25 11:02 Resp 18 07/31/25 11:02 BP 178/74 H 07/31/25 11:02 Pulse Ox 93 07/31/25 11:02 O2 Del Method Nasal Cannula 07/31/25 11:02 O2 Flow Rate 3 07/31/25 11:02 Oxygen Flow Rate 2 07/20/25 11:16 BMI result Body Mass Index 34.3 Const: Other: Awake alert able to speak in short sentences Resp: Other: Diminished throughout with dense scattered expiratory wheezes Cardio: Other: No S4; positive S1-S2; no S3 murmurs rubs or gallops GI: Other: Soft nontender nondistended normoactive bowel sounds Extrem: Other: No edema bilaterally Objective Data Active Medications Acetaminophen (Acetaminophen 325 Mg Tablet) 650 mg PO Q6H PRN PRN Reason: Pain, Mild 1-3,fever,headache Last Admin: 07/30/25 04:12 Dose: 650 mg Documented By: BECK Albuterol/Ipratropium (Albuterol/Iprat 2.5/0.5mg 3 Ml Ampul.Neb) 3 ml INHALE RQ4H WHILE AWAKE PRN PRN Reason: sob Last Admin: 07/31/25 09:53 Dose: 3 ml Documented By: CANDACE Amlodipine Besylate (Amlodipine Besylate 10 Mg Tablet) 10 mg PO DAILY [facility]; Protocol Last Admin: 07/31/25 07:49 Dose: 10 mg Documented By: OLIVIA Apixaban (Apixaban 5 Mg Tablet) 5 mg PO BID [facility] Last Admin: 07/31/25 07:50 Dose: 5 mg Documented By: OLIVIA Atorvastatin Calcium (Atorvastatin Calcium 80 Mg Tablet) 80 mg PO BEDTIME [facility] Last Admin: 07/30/25 20:23 Dose: 80 mg Documented By: EDDI Benzocaine (Throat Lozenge, Medicated Lozenge) 1 lozenge MUCOUS MEM Q2H PRN PRN Reason: Sore Throat Last Admin: 07/28/25 21:10 Dose: 1 lozenge Documented By: JESUS Buspirone HCl (Buspirone Hcl 10 Mg Tablet) 10 mg PO BID [facility] Last Admin: 07/31/25 07:50 Dose: 10 mg Documented By: OLIVIA Calcium Carbonate (Calcium Carbonate 750 Mg Tab.Chew) 750 mg PO Q4H PRN PRN Reason: Heartburn Carvedilol (Carvedilol 12.5 Mg Tablet) 12.5 mg PO BID [facility]; Protocol Last Admin: 07/31/25 07:50 Dose: 12.5 mg Documented By: OLIVIA Dextrose (Dextrose 50 % 25 Gm/50 Ml Syringe) 25 gm IVPUSH Q15M PRN; Protocol PRN Reason: per Hypoglycemia Standing Ord. Diltiazem HCl (Diltiazem Hcl Cd 300 Mg Cap.Er.24h) 300 mg PO DAILY [facility]; Protocol Last Admin: 07/31/25 07:49 Dose: 300 mg Documented By: OLIVIA Docusate Sodium (Docusate Sodium 100 Mg Capsule) 100 mg PO BID PRN PRN Reason: Constipation Last Admin: 07/27/25 20:56 Dose: 100 mg Documented By: JESUS Escitalopram Oxalate (Escitalopram Oxalate 10 Mg Tablet) 15 mg PO DAILY [facility] Last Admin: 07/31/25 07:51 Dose: 15 mg Documented By: OLIVIA Famotidine (Famotidine 20 Mg Tablet) 20 mg PO DAILY PRN PRN Reason: GERD/Acid Reflux Ferrous Sulfate (Ferrous Sulfate 324 Mg Tablet.Dr) 324 mg PO TID [facility] Last Admin: 07/31/25 07:49 Dose: 324 mg Documented By: OLIVIA Furosemide (Furosemide 20 Mg Tablet) 20 mg PO DAILY [facility]; Protocol Last Admin: 07/31/25 07:50 Dose: 20 mg Documented By: OLIVIA Glucose (Glucose Gel 15 Gm Gel..Gram.) 15 gm PO Q15M PRN; Protocol PRN Reason: per Hypoglycemia Standing Ord. Guaifenesin (Guaifenesin 200 Mg/10 Ml 10 Ml Liquid) 10 ml PO Q4H PRN PRN Reason: Cough Last Admin: 07/31/25 02:25 Dose: 10 ml Documented By: EDDI Hydralazine HCl (Hydralazine Hcl 25 Mg Tablet) 25 mg PO TID [facility]; Protocol Last Admin: 07/31/25 07:50 Dose: 25 mg Documented By: OLIVIA Vancomycin HCl 750 mg/ Sodium (Chloride) 265 mls @ 265 mls/hr IV Q12H [facility] Last Infusion: 07/31/25 10:51 Dose: Infused Documented By: OLIVIA Piperacillin Sod/Tazobactam (Sod 3.375 gm/ Sodium Chloride) 50 mls @ 100 mls/hr IV Q6H [facility] Last Infusion: 07/31/25 08:20 Dose: Infused Documented By: OLIVIA Insulin Glargine (Insulin Glargine,Hum.Rec.Anlog 100 Unit/Ml 10 Ml Vial) 25 unit SUBCUT BEDTIME [facility] Last Admin: 07/30/25 21:03 Dose: 25 unit Documented By: EDDI Insulin Human Lispro (Insulin Lispro 100 Unit/Ml 3 Ml Vial) 0 unit SUBCUT QIDACHS [facility]; Protocol Last Admin: 07/31/25 11:51 Dose: 6 unit Documented By: OLIVIA Loratadine (Loratadine 10 Mg Tablet) 10 mg PO DAILY [facility] Last Admin: 07/31/25 07:50 Dose: 10 mg Documented By: OLIVIA Magnesium Hydroxide (Milk Of Magnesia 30 Ml Oral.Susp) 30 ml PO DAILY PRN PRN Reason: Constipation Last Admin: 07/22/25 09:15 Dose: 30 ml Documented By: GILSON Meclizine HCl (Meclizine Hcl 12.5 Mg Tablet) 12.5 mg PO TID PRN PRN Reason: dizziness Melatonin (Melatonin 3 Mg Tablet) 6 mg PO BEDTIME PRN PRN Reason: Insomnia Methylprednisolone Sodium Succinate (Methylprednisolone Sod Succ 125 Mg/2 Ml Vial) 60 mg IVPUSH Q6H [facility] Last Admin: 07/31/25 11:51 Dose: 60 mg Documented By: OLIVIA Montelukast Sodium (Montelukast Sodium 10 Mg Tablet) 10 mg PO BEDTIME [facility] Last Admin: 07/30/25 20:23 Dose: 10 mg Documented By: EDDI Nitroglycerin (Nitroglycerin 0.4 Mg Tab.Subl) 0.4 mg SUBLINGUAL Q5M PRN PRN Reason: chest pain Pantoprazole Sodium (Pantoprazole Sodium 20 Mg Tablet.) 40 mg PO BID@2293,1650 [facility] Last Admin: 07/31/25 05:00 Dose: 40 mg Documented By: EDDI Pharmacy Consult (Consult Rx Vancomycin Dosing) 1 each MISCELLANE DAILY PRN PRN Reason: Consult order Polyethylene Glycol (Polyethylene Glycol 3350 17 Gm Powd.Pack) 17 gm PO BID PRN PRN Reason: Constipation Sodium Chloride (0.9 % Sodium Chloride Flush 3 Ml Syringe) 3 ml IVFLUSH QSHIFT [facility] Last Admin: 07/31/25 07:56 Dose: 3 ml Documented By: OLIVIA Vitamin D (Cholecalciferol (Vitamin D3) 25 Mcg Tablet) 25 mcg PO DAILY [facility] Last Admin: 07/31/25 07:50 Dose: 25 mcg Documented By: OLIVIA Labs 07/31/25 06:31 07/31/25 06:31 Labs: Laboratory Results - last 24 hr 07/30/25 07/30/25 07/31/25 16:03 20:51 06:31 MCV 74.0 L MCH 23.0 L MCHC 31.1 RDW 23.0 H Plt Count 110 L D MPV TNP Immature Gran % (Auto) 1.0 H Neut % (Auto) 95.7 H Lymph % (Auto) 1.1 L [place] % (Auto) 2.0 Eos % (Auto) 0.0 Baso % (Auto) 0.2 Lymph # (Auto) 0.3 L [place] # (Auto) 0.5 Eos # (Auto) 0.0 Baso # (Auto) 0.0 Abs Immat Gran (auto) 0.23 H Absolute Neuts (auto) 21.7 H Absolute Nucleated RBC 0.000 Nucleated RBC % (auto) 0.0 Smear Tech's Comments VERIFIED Anion Gap 15 Estim Creat Clear Calc 52.7 Estimated GFR 55 POC Glucose 337 H 339 H Fasting Glucose 177 H Calcium 8.3 L Total Bilirubin 0.7 AST 40 H ALT 46 H Alkaline Phosphatase 87 Total Protein 5.6 L Albumin 2.9 L 07/31/25 07/31/25 07:06 11:07 MCV MCH MCHC RDW Plt Count MPV Immature Gran % (Auto) Neut % (Auto) Lymph % (Auto) [place] % (Auto) Eos % (Auto) Baso % (Auto) Lymph # (Auto) [place] # (Auto) Eos # (Auto) Baso # (Auto) Abs Immat Gran (auto) Absolute Neuts (auto) Absolute Nucleated RBC Nucleated RBC % (auto) Smear Tech's Comments Anion Gap Estim Creat Clear Calc Estimated GFR POC Glucose 183 H 272 H Fasting Glucose Calcium Total Bilirubin AST ALT Alkaline Phosphatase Total Protein Albumin Assessment and Plan (1) Aspiration pneumonia: Status: Acute (2) Asthma with COPD: Status: Acute Plan 74F PMH COPD, ALYSIA, obesity, coronary artery disease status post stent, chronic diastolic CHF, diabetes, paroxysmal AFib, chronic iron-deficiency anemia, tracheal stenosis status post tracheoplasty presented with worsening shortness of breath 1.Aspiration pneumonia(suspected)/COPD with acute decompensation - increase solumedrol 60 q.6 hours; continue nebs -vanco/Zosyn (2) -speech therapy recommendations implemented 2. Acute on chronic diastolic heart failure -switch to p.o. Lasix -follow renals and divalent 3. Hypertension -amldopine increased to 10mg/added hydralazine -increase Coreg to 25 mg b.i.d. -follow clinically 4.CAD -stable and well compensated -continue current therapies 5.Paroxysmal AFib -exam/EKG demonstrate normal sinus rhythm -continuing new Eliquis; acceptable rate control 6.Diabetes -acceptable control on current therapies -lispro correctional scale -adjust as indicated DVT prophylaxis on apixaban full code reason for continued hospitalization: still very symptomatic shortness breath Quality Stroke Does the patient have a stroke diagnosis?: No VTE Prior VTE?: No VTE Risk Level:: Medical - moderate - high VTE Device Contraindication: N/A - Device Ordered VTE Drug Contraindication: N/A - Med Ordered
[2025-07-31 16:16] LABS: Glucose, Whole Blood 258 mg/dL (60-115)
[2025-07-31 20:28] LABS: Glucose, Whole Blood 263 mg/dL (60-115)
[2025-07-31] MEDS: Insulin Glargine,Hum.rec.anlog 100 UNIT/ML 10 ML VIAL 25 UNIT SUBCUT (21:15)
[2025-08-01] VITALS (7 sets, daily range): BP systolic 109–180; BP diastolic 53–90; PULSE 72–97; RESP 17–20; TEMP 36.6–37.2; O2SAT 89–92
[2025-08-01 06:26] LABS: Mean Corpuscular Hemoglobin 22.8 pg (27.0-33.0); NRBC Abs Auto 0.000 X10*3/uL (0.0-0.012); NRBC Pct Auto 0.0 /100WBC (0.0-0.2)
[2025-08-01 06:28] LABS: Hematocrit 31.7 % (37.0-47.0); Hemoglobin 9.5 g/dl (12.0-16.0); Mean Corpuscular HGB Conc 30.0 g/dl (31.0-35.0); Mean Corpuscular Volume 76.2 fL (80.0-98.0); PLT CLUMP 1; Red Blood Count 4.16 X10*6/uL (4.20-5.50)
[2025-08-01 06:31] LABS: PLT ABN DIST 1
[2025-08-01 06:38] LABS: Alanine Aminotransferase 56 U/L (0-31); Albumin Level 2.8 g/dL (3.5-5.0); Alkaline Phosphatase 85 U/L (39-117); Anion Gap 13 (12-20); Aspartate Amino Transferase 43 U/L (5-31); Blood Urea Nitrogen 44 mg/dL (9-16); Calcium 8.1 mg/dL (8.4-10.2); Carbon Dioxide 30 mmol/L (22-29); Chloride 106 mmol/L (96-108); Creatinine Clr Calc Pharmacy 54.9; Estimated Glomerular Filt Rate 57; Potassium 3.1 mmol/L (3.3-5.1); Sodium 146 mmol/L (135-145); Total Protein 5.5 g/dL (6.5-8.0)
--- NOTE | 2025-08-01 06:58 | HE.PHANOTE ---
RE: VANCO DOSING Trough came back as 14.5 mg/L, renal function is stable. Continue with dose 750 mg q12h, next trough is scheduled for 08/02/25@0600.
[2025-08-01 07:24] LABS: Glucose, Whole Blood 189 mg/dL (60-115)
[2025-08-01] MEDS: Ferrous Sulfate 324 MG TABLET.DR PO ×3 (08:02→20:48)
[2025-08-01] MEDS: dilTIAZem HCL CD 300 MG CAP.ER.24H PO (08:03)
[2025-08-01] MEDS: 0.9 % Sodium Chloride Flush 3 ML SYRINGE IVFLUSH ×3 (08:03→22:47)
[2025-08-01 08:45] LABS: Platelet Count 93 X10*3/uL (160-400); White Blood Count 22.1 X10*3/uL (4.8-10.8)
[2025-08-01 08:49] LABS: Lymphocytes Absolute Manual 0.4 X10*3/uL (1.2-4.9); Lymphocytes Percent Manual 2 % (20-40); Monocytes Absolute Manual 0.2 X10*3/uL (0.1-1.2); Monocytes Percent Manual 1 % (2-11); Neutrophils Percent Manual 97 % (45-73)
[2025-08-01 08:50] LABS: Microcytosis 2+ (15-30) /OIF
[2025-08-01 08:51] LABS: Large Platelet PRESENT; RBC Morphology NOTED
[2025-08-01 08:52] LABS: Burr Cells 3+ (>5) /OIF; Schistocytes 1+ (0-2) /OIF
[2025-08-01 08:54] LABS: Acanthocytes 3+ (>5) /OIF
[2025-08-01 08:57] LABS: Band Neutrophils Percent 0 % (3-5); Neutrophils Absolute Manual 21.4 X10*3/uL (2.0-8.3)
[2025-08-01] MEDS: Furosemide 40 MG/4 ML VIAL IVPUSH (09:13)
[2025-08-01 10:48] LABS: VBG HCO3 37 mmol/L (22-26); VBG O2 % Saturation 48.0 %
[2025-08-01 10:49] LABS: Venous Blood Gas Refer to POC result
[2025-08-01 11:29] LABS: Glucose, Whole Blood 146 mg/dL (60-115)
--- NOTE | 2025-08-01 13:45 | MHC.CM.PN ---
Per rounds, pt. is not ready to DC, she is still SOB, DCP will be home with family care and [facility].
--- NOTE | 2025-08-01 13:48 | MHC.SL.SWA ---
Speech Pathologist Impression: Mild oral, moderate pharyngeal dysphagia Risk of Aspiration Due to: Persisting WOB Compromised respiratory status Generalized weakness Dysphasia Diet Status: Recommend CONTINUE on Chopped/Advanced (NDD3), NECTAR THICK liquids, pills WHOLE in puree. Liquid Consistency and Strategies for Safe Swallow: Liquid Intake Recommendation: [place] Thick Liquid Intake Strategies: Small Sips Solid Food Consistency: Dietary Recommendations: Additional Modifications to Solid Foods: Unthickened water permitted for hydration/pleasure, NOT with meals (*in isolation, sips of thin water is permitted) Oral Medication Intake: Whole with Puree Please contact the pharmacy regarding appropriate crushable or liquid drug formulations that are available whenever modified delivery is recommended. Compensatory Strategies and Precautions to be Taken for Safe Swallow: Sitting Upright (90 deg) Liquids from Cup Small Bites and Sips Alternate Liquids/Solids Supervision While Eating and Drinking for Safe Swallow: Intermittent Supervision Foods to Avoid: Swallowing Recommended Treatments: Compens. Strategy Educat. Recommendation for Speech: Inpatient Speech Therapy Speech Therapy through [facility] Comment: Pt seen for dysphagia tx, daughter at bedside, noting pt's status has worsened. Pt on continuous O2 via NC, with significant WOB with minimal exertion and even with speaking. Pt requested drinks, noting she is not eating at this time. One trial of cranberry juice (unthickened) resulted in audible gulping and immediate cough. KENO WRITER explained reason for thickener, pt in agreement with thickened juice, tolerating 2 sips by cup of NTL without overt s/s of aspiration. Audible gulping swallow has been observed by pt daughter in the past. Unthickened water provided, pt continues to receive thickened water but is permitted to have unthickened water in absence of other PO. POC reviewed with pt and pt daughter, who agree with recommendations. RN consulted. No changes to diet, continued KENO WRITER intervention indicated. Frequency/Duration: M-F Date Range for Service Req: Timeline to reassess: Event Marketing Manager Clinican/Clinical Fellow: No Supervisory Statement: I have reviewed and agree with the student/clinical fellow's documentation: N/A Speech Language Pathologist: Akosua Lorenzo M.S., CCC-KENO WRITER
--- NOTE | 2025-08-01 16:17 | P.PNIM_ITS ---
Subjective Subjective Date of Service: 08/01/25 Interval History: Markedly short of breath this a.m.. Speaking only in short sentences Review of Systems Denies chest pain Admits shortness of breath that has worsened since admission Denies nausea vomiting diarrhea Denies fever chills Physical Exam 2 Vital Signs: Vital Signs: Last Vital Signs Temp 98.1 F 08/01/25 11:49 Pulse 76 08/01/25 11:49 Resp 20 08/01/25 11:49 BP 137/90 H 08/01/25 11:49 Pulse Ox 92 08/01/25 11:49 O2 Del Method Nasal Cannula 08/01/25 11:49 O2 Flow Rate 3 08/01/25 11:49 Oxygen Flow Rate 2 07/20/25 11:16 BMI result Body Mass Index 34.3 Const: Other: Awake alert able to speak in short sentences Resp: Other: Diminished throughout with dense scattered expiratory wheezes; dense crackes right midfield Cardio: Other: No S4; positive S1-S2; no S3 murmurs rubs or gallops GI: Other: Soft nontender nondistended normoactive bowel sounds Extrem: Other: No edema bilaterally Objective Data Active Medications Acetaminophen (Acetaminophen 325 Mg Tablet) 650 mg PO Q6H PRN PRN Reason: Pain, Mild 1-3,fever,headache Last Admin: 07/30/25 04:12 Dose: 650 mg Documented By: BECK Albuterol/Ipratropium (Albuterol/Iprat 2.5/0.5mg 3 Ml Ampul.Neb) 3 ml INHALE RQ4H WHILE AWAKE PRN PRN Reason: sob Last Admin: 07/31/25 09:53 Dose: 3 ml Documented By: CANDACE Amlodipine Besylate (Amlodipine Besylate 10 Mg Tablet) 10 mg PO DAILY [facility]; Protocol Last Admin: 08/01/25 08:01 Dose: 10 mg Documented By: COLLINS Apixaban (Apixaban 5 Mg Tablet) 5 mg PO BID [facility] Last Admin: 08/01/25 08:02 Dose: 5 mg Documented By: COLLINS Atorvastatin Calcium (Atorvastatin Calcium 80 Mg Tablet) 80 mg PO BEDTIME [facility] Last Admin: 07/31/25 20:03 Dose: 80 mg Documented By: EDDI Benzocaine (Throat Lozenge, Medicated Lozenge) 1 lozenge MUCOUS MEM Q2H PRN PRN Reason: Sore Throat Last Admin: 07/28/25 21:10 Dose: 1 lozenge Documented By: JESUS Buspirone HCl (Buspirone Hcl 10 Mg Tablet) 10 mg PO BID [facility] Last Admin: 08/01/25 08:02 Dose: 10 mg Documented By: COLLINS Calcium Carbonate (Calcium Carbonate 750 Mg Tab.Chew) 750 mg PO Q4H PRN PRN Reason: Heartburn Carvedilol (Carvedilol 12.5 Mg Tablet) 12.5 mg PO BID [facility]; Protocol Last Admin: 08/01/25 08:01 Dose: 12.5 mg Documented By: COLLINS Dextrose (Dextrose 50 % 25 Gm/50 Ml Syringe) 25 gm IVPUSH Q15M PRN; Protocol PRN Reason: per Hypoglycemia Standing Ord. Diltiazem HCl (Diltiazem Hcl Cd 300 Mg Cap.Er.24h) 300 mg PO DAILY [facility]; Protocol Last Admin: 08/01/25 08:03 Dose: 300 mg Documented By: COLLINS Docusate Sodium (Docusate Sodium 100 Mg Capsule) 100 mg PO BID PRN PRN Reason: Constipation Last Admin: 07/27/25 20:56 Dose: 100 mg Documented By: JESUS Escitalopram Oxalate (Escitalopram Oxalate 10 Mg Tablet) 15 mg PO DAILY [facility] Last Admin: 08/01/25 08:02 Dose: 15 mg Documented By: COLLINS Famotidine (Famotidine 20 Mg Tablet) 20 mg PO DAILY PRN PRN Reason: GERD/Acid Reflux Ferrous Sulfate (Ferrous Sulfate 324 Mg Tablet.Dr) 324 mg PO TID [facility] Last Admin: 08/01/25 15:11 Dose: 324 mg Documented By: COLLINS Glucose (Glucose Gel 15 Gm Gel..Gram.) 15 gm PO Q15M PRN; Protocol PRN Reason: per Hypoglycemia Standing Ord. Guaifenesin (Guaifenesin 200 Mg/10 Ml 10 Ml Liquid) 10 ml PO Q4H PRN PRN Reason: Cough Last Admin: 07/31/25 20:13 Dose: 10 ml Documented By: EDDI Hydralazine HCl (Hydralazine Hcl 25 Mg Tablet) 25 mg PO TID [facility]; Protocol Last Admin: 08/01/25 15:11 Dose: 25 mg Documented By: COLLINS Vancomycin HCl 750 mg/ Sodium (Chloride) 265 mls @ 265 mls/hr IV Q12H [facility] Last Infusion: 08/01/25 10:21 Dose: Infused Documented By: COLLINS Piperacillin Sod/Tazobactam (Sod 3.375 gm/ Sodium Chloride) 50 mls @ 100 mls/hr IV Q6H [facility] Last Infusion: 08/01/25 15:45 Dose: Infused Documented By: KRYSTIN Insulin Glargine (Insulin Glargine,Hum.Rec.Anlog 100 Unit/Ml 10 Ml Vial) 25 unit SUBCUT BEDTIME [facility] Last Admin: 07/31/25 21:15 Dose: 25 unit Documented By: EDDI Insulin Human Lispro (Insulin Lispro 100 Unit/Ml 3 Ml Vial) 0 unit SUBCUT QIDACHS [facility]; Protocol Last Admin: 08/01/25 11:59 Dose: Not Given Documented By: COLLINS Non-Admin Reason: No Insulin Coverage Loratadine (Loratadine 10 Mg Tablet) 10 mg PO DAILY [facility] Last Admin: 08/01/25 08:01 Dose: 10 mg Documented By: COLLINS Magnesium Hydroxide (Milk Of Magnesia 30 Ml Oral.Susp) 30 ml PO DAILY PRN PRN Reason: Constipation Last Admin: 07/22/25 09:15 Dose: 30 ml Documented By: GILSON Meclizine HCl (Meclizine Hcl 12.5 Mg Tablet) 12.5 mg PO TID PRN PRN Reason: dizziness Melatonin (Melatonin 3 Mg Tablet) 6 mg PO BEDTIME PRN PRN Reason: Insomnia Methylprednisolone Sodium Succinate (Methylprednisolone Sod Succ 125 Mg/2 Ml Vial) 60 mg IVPUSH Q6H [facility] Last Admin: 08/01/25 10:28 Dose: 60 mg Documented By: COLLINS Montelukast Sodium (Montelukast Sodium 10 Mg Tablet) 10 mg PO BEDTIME [facility] Last Admin: 07/31/25 20:03 Dose: 10 mg Documented By: EDDI Nitroglycerin (Nitroglycerin 0.4 Mg Tab.Subl) 0.4 mg SUBLINGUAL Q5M PRN PRN Reason: chest pain Pantoprazole Sodium (Pantoprazole Sodium 20 Mg Tablet.Dr) 40 mg PO BID@0630,7370 [facility] Last Admin: 08/01/25 16:01 Dose: 40 mg Documented By: KRYSTIN Pharmacy Consult (Consult Rx Vancomycin Dosing) 1 each MISCELLANE DAILY PRN PRN Reason: Consult order Polyethylene Glycol (Polyethylene Glycol 3350 17 Gm Powd.Pack) 17 gm PO BID PRN PRN Reason: Constipation Sodium Chloride (0.9 % Sodium Chloride Flush 3 Ml Syringe) 3 ml IVFLUSH QSHIFT [facility] Last Admin: 08/01/25 16:04 Dose: 3 ml Documented By: KRYSTIN Vitamin D (Cholecalciferol (Vitamin D3) 25 Mcg Tablet) 25 mcg PO DAILY [facility] Last Admin: 08/01/25 08:02 Dose: 25 mcg Documented By: COLLINS Labs 08/01/25 06:06 08/01/25 06:06 Labs: Laboratory Results - last 24 hr 07/31/25 08/01/25 08/01/25 20:21 06:06 07:20 MCV 76.2 L MCH 22.8 L MCHC 30.0 L RDW 23.4 H Plt Count 93 L MPV Not Reportable Immature Gran % (Auto) Cancelled Neut % (Auto) Cancelled Lymph % (Auto) Cancelled [place] % (Auto) Cancelled Eos % (Auto) Cancelled Baso % (Auto) Cancelled Lymph # (Auto) Cancelled [place] # (Auto) Cancelled Eos # (Auto) Cancelled Baso # (Auto) Cancelled Abs Immat Gran (auto) Cancelled Absolute Neuts (auto) Cancelled Absolute Nucleated RBC 0.000 Nucleated RBC % (auto) 0.0 Neutrophils % (Manual) 97 H Band Neutrophils % 0 L Lymphocytes % (Manual) 2 L Monocytes % (Manual) 1 L Abs Neuts (Manual) 21.4 H Lymphocytes # (Manual) 0.4 L Monocytes # (Manual) 0.2 Platelet Estimate DECREASED Large Platelets PRESENT Plt Morphology Comment NOTED RBC Morphology NOTED Microcytosis 2+ (15-30) Colp Cells 3+ (>5) Acanthocytes (Spur) 3+ (>5) Schistocytes 1+ (0-2) VBG pH VBG pCO2 VBG pO2 VBG HCO3 VBG O2 Saturation VBG Base Excess Anion Gap 13 Estim Creat Clear Calc 54.9 Estimated GFR 57 POC Glucose 263 H 189 H Fasting Glucose 172 H Calcium 8.1 L Total Bilirubin 0.9 AST 43 H ALT 56 H Alkaline Phosphatase 85 Total Protein 5.5 L Albumin 2.8 L Vancomycin Trough 14.5 08/01/25 08/01/25 10:43 11:23 MCV MCH MCHC RDW Plt Count MPV Immature Gran % (Auto) Neut % (Auto) Lymph % (Auto) [place] % (Auto) Eos % (Auto) Baso % (Auto) Lymph # (Auto) [place] # (Auto) Eos # (Auto) Baso # (Auto) Abs Immat Gran (auto) Absolute Neuts (auto) Absolute Nucleated RBC Nucleated RBC % (auto) Neutrophils % (Manual) Band Neutrophils % Lymphocytes % (Manual) Monocytes % (Manual) Abs Neuts (Manual) Lymphocytes # (Manual) Monocytes # (Manual) Platelet Estimate Large Platelets Plt Morphology Comment RBC Morphology Microcytosis Ruby Cells Acanthocytes (Spur) Schistocytes VBG pH 7.59 H VBG pCO2 38 VBG pO2 34 VBG HCO3 37 H VBG O2 Saturation 48.0 VBG Base Excess 14.4 Anion Gap Estim Creat Clear Calc Estimated GFR POC Glucose 146 H Fasting Glucose Calcium Total Bilirubin AST ALT Alkaline Phosphatase Total Protein Albumin Vancomycin Trough Assessment and Plan (1) Aspiration pneumonia: Status: Acute (2) Asthma with COPD: Status: Acute Plan 74F PMH COPD, ALYSIA, obesity, coronary artery disease status post stent, chronic diastolic CHF, diabetes, paroxysmal AFib, chronic iron-deficiency anemia, tracheal stenosis status post tracheoplasty presented with worsening shortness of breath 1.Aspiration pneumonia(suspected)/COPD with acute decompensation -chest x-ray this a.m. with worsening right middle lobe pneumonia -given dose of 40 mg of Lasix with some improvement... No failure on x-ray -solumedrol 60 q.6 hours; continue nebs -vanco/Zosyn (3) 2. Acute on chronic diastolic heart failure -switch to p.o. Lasix -follow renals and divalent 3. Hypertension -amldopine increased to 10mg/added hydralazine IV -follow clinically 4.CAD -stable and well compensated -continue current therapies 5.Paroxysmal AFib -exam/EKG demonstrate normal sinus rhythm -continuing new Eliquis; acceptable rate control 6.Diabetes -acceptable control on current therapies -lispro correctional scale -adjust as indicated DVT prophylaxis on apixaban full code reason for continued hospitalization: still very symptomatic shortness breath Quality Stroke Does the patient have a stroke diagnosis?: No VTE Prior VTE?: No VTE Risk Level:: Medical - moderate - high VTE Device Contraindication: N/A - Device Ordered VTE Drug Contraindication: N/A - Med Ordered
[2025-08-01 16:37] LABS: Glucose, Whole Blood 186 mg/dL (60-115)
[2025-08-01 21:16] LABS: Glucose, Whole Blood 194 mg/dL (60-115)
[2025-08-01] MEDS: Insulin Glargine,Hum.rec.anlog 100 UNIT/ML 10 ML VIAL 25 UNIT SUBCUT (21:41)
[2025-08-02] VITALS (13 sets, daily range): BP systolic 146–170; BP diastolic 60–72; PULSE 68–84; RESP 20–22; TEMP 36.3–36.9; O2SAT 89–94
[2025-08-02 06:59] LABS: Glucose, Whole Blood 107 mg/dL (60-115)
[2025-08-02 07:35] LABS: Hematocrit 30.8 % (37.0-47.0); Hemoglobin 9.5 g/dl (12.0-16.0); Imm Gran Abs Auto 0.15 X10*3/uL (0.00-0.03); Imm Gran Pct Auto 0.7 % (0.0-0.4); Lymphocytes Absolute Auto 0.3 X10*3/uL (1.2-4.9); MANUAL DIFF FLAG SCAN; Mean Corpuscular HGB Conc 30.8 g/dl (31.0-35.0); Mean Corpuscular Hemoglobin 23.1 pg (27.0-33.0); Mean Corpuscular Volume 74.9 fL (80.0-98.0); NRBC Abs Auto 0.000 X10*3/uL (0.0-0.012); NRBC Pct Auto 0.0 /100WBC (0.0-0.2); Red Blood Count 4.11 X10*6/uL (4.20-5.50); SCAN SMEAR FLAG 1; White Blood Count 21.3 X10*3/uL (4.8-10.8)
[2025-08-02 07:41] LABS: Platelet Count 83 X10*3/uL (160-400)
[2025-08-02] MEDS: Ferrous Sulfate 324 MG TABLET.DR PO ×3 (07:41→21:52)
[2025-08-02] MEDS: dilTIAZem HCL CD 300 MG CAP.ER.24H PO (07:41)
[2025-08-02] MEDS: 0.9 % Sodium Chloride Flush 3 ML SYRINGE IVFLUSH ×3 (07:43→21:54)
[2025-08-02 07:58] LABS: Alanine Aminotransferase 67 U/L (0-31); Albumin Level 2.9 g/dL (3.5-5.0); Alkaline Phosphatase 95 U/L (39-117); Anion Gap 12 (12-20); Aspartate Amino Transferase 47 U/L (5-31); Blood Urea Nitrogen 46 mg/dL (9-16); Calcium 8.4 mg/dL (8.4-10.2); Carbon Dioxide 33 mmol/L (22-29); Chloride 106 mmol/L (96-108); Creatinine Clr Calc Pharmacy 54.3; Estimated Glomerular Filt Rate 57; Potassium 2.6 mmol/L (3.3-5.1); Sodium 148 mmol/L (135-145); Total Protein 5.7 g/dL (6.5-8.0)
--- NOTE | 2025-08-02 08:11 | HE.PHANOTE ---
VANCO DOSE ADJUSTMENT BASED ON SCR AND TROUGH OF 17. DOSE CHANGED TO 1500 Q 24H IT LOWERS TOXICITY BY 3% Maintaining the same AUC of 492. next level 08/04 @ 0800
[2025-08-02 08:23] LABS: Magnesium 2.5 mg/dL (1.6-2.6)
[2025-08-02 08:38] LABS: Procalcitonin 0.19 ng/mL
[2025-08-02] MEDS: Potassium Chloride ER 20 MEQ TAB.ER.PRT 40 MEQ PO ×2 (08:50→21:53)
[2025-08-02] MEDS: Potassium Chloride/H20 10 MEQ/100 ML PIGGYBACK 100 MEQ IV ×4 (10:04→13:18)
[2025-08-02 10:57] LABS: Glucose, Whole Blood 108 mg/dL (60-115)
[2025-08-02 11:46] LABS: MRSA Nasal PCR NEGATIVE (Negative); SA Nasal PCR NEGATIVE (Negative)
[2025-08-02] MEDS: Furosemide 40 MG/4 ML VIAL IVPUSH (11:49)
--- NOTE | 2025-08-02 15:48 | P.PNIM_ITS ---
Subjective Subjective Date of Service: 08/02/25 Interval History: feels short of breath; on 4L O2 no fever K low Review of Systems Review of Systems: Yes all other systems are reviewed and are negative Physical Exam 2 Vital Signs: Vital Signs: Last Vital Signs Temp 97.5 F 08/02/25 15:45 Pulse 76 08/02/25 15:45 Resp 20 08/02/25 15:45 BP 161/72 H 08/02/25 15:45 Pulse Ox 91 L 08/02/25 15:45 O2 Del Method Nasal Cannula 08/02/25 15:45 O2 Flow Rate 4 08/02/25 15:45 Oxygen Flow Rate 2 07/20/25 11:16 BMI result Body Mass Index 34.3 Gen: in no acute distress HEENT: sclera anicteric, moist mucus membranes Neck: supple, JVD present Lungs: bilateral inspiratory wet crackles Heart: regular rate and rhythm, no murmurs Abd: soft, non-tender, non-distended Ext: trace leg edema Skin: warm/well-perfused Neuro: alert and oriented x3, no focal findings Psych: appropriate affect Objective Data Active Medications Acetaminophen (Acetaminophen 325 Mg Tablet) 650 mg PO Q6H PRN PRN Reason: Pain, Mild 1-3,fever,headache Last Admin: 07/30/25 04:12 Dose: 650 mg Documented By: BECK Albuterol/Ipratropium (Albuterol/Iprat 2.5/0.5mg 3 Ml Ampul.Neb) 3 ml INHALE RQ4H WHILE AWAKE PRN PRN Reason: sob Last Admin: 07/31/25 09:53 Dose: 3 ml Documented By: CANDACE Amlodipine Besylate (Amlodipine Besylate 10 Mg Tablet) 10 mg PO DAILY [facility]; Protocol Last Admin: 08/02/25 07:42 Dose: 10 mg Documented By: CRISTHIAN Apixaban (Apixaban 5 Mg Tablet) 5 mg PO BID [facility] Last Admin: 08/02/25 07:41 Dose: 5 mg Documented By: CRISTHIAN Atorvastatin Calcium (Atorvastatin Calcium 80 Mg Tablet) 80 mg PO BEDTIME [facility] Last Admin: 08/01/25 20:49 Dose: 80 mg Documented By: EDDI Benzocaine (Throat Lozenge, Medicated Lozenge) 1 lozenge MUCOUS MEM Q2H PRN PRN Reason: Sore Throat Last Admin: 07/28/25 21:10 Dose: 1 lozenge Documented By: JESUS Buspirone HCl (Buspirone Hcl 10 Mg Tablet) 10 mg PO BID [facility] Last Admin: 08/02/25 07:42 Dose: 10 mg Documented By: CRISTHIAN Calcium Carbonate (Calcium Carbonate 750 Mg Tab.Chew) 750 mg PO Q4H PRN PRN Reason: Heartburn Carvedilol (Carvedilol 12.5 Mg Tablet) 12.5 mg PO BID [facility]; Protocol Last Admin: 08/02/25 07:42 Dose: 12.5 mg Documented By: CRISTHIAN Dextrose (Dextrose 50 % 25 Gm/50 Ml Syringe) 25 gm IVPUSH Q15M PRN; Protocol PRN Reason: per Hypoglycemia Standing Ord. Diltiazem HCl (Diltiazem Hcl Cd 300 Mg Cap.Er.24h) 300 mg PO DAILY [facility]; Protocol Last Admin: 08/02/25 07:41 Dose: 300 mg Documented By: CRISTHIAN Docusate Sodium (Docusate Sodium 100 Mg Capsule) 100 mg PO BID PRN PRN Reason: Constipation Last Admin: 07/27/25 20:56 Dose: 100 mg Documented By: JESUS Escitalopram Oxalate (Escitalopram Oxalate 10 Mg Tablet) 15 mg PO DAILY [facility] Last Admin: 08/02/25 07:41 Dose: 15 mg Documented By: CRISTHIAN Famotidine (Famotidine 20 Mg Tablet) 20 mg PO DAILY PRN PRN Reason: GERD/Acid Reflux Ferrous Sulfate (Ferrous Sulfate 324 Mg Tablet.Dr) 324 mg PO TID [facility] Last Admin: 08/02/25 14:29 Dose: 324 mg Documented By: CRISTHIAN Furosemide (Furosemide 40 Mg/4 Ml Vial) 40 mg IVPUSH DAILY [facility]; Protocol Last Admin: 08/02/25 11:49 Dose: 40 mg Documented By: CRISTHIAN Glucose (Glucose Gel 15 Gm Gel..Gram.) 15 gm PO Q15M PRN; Protocol PRN Reason: per Hypoglycemia Standing Ord. Guaifenesin (Guaifenesin 200 Mg/10 Ml 10 Ml Liquid) 10 ml PO Q4H PRN PRN Reason: Cough Last Admin: 07/31/25 20:13 Dose: 10 ml Documented By: EDDI Hydralazine HCl (Hydralazine Hcl 25 Mg Tablet) 25 mg PO TID [facility]; Protocol Last Admin: 08/02/25 14:29 Dose: 25 mg Documented By: CRISTHIAN Ampicillin Sodium/Sulbactam (Sodium 3 gm/ Sodium Chloride) 100 mls @ 200 mls/hr IV Q6H [facility] Last Infusion: 08/02/25 14:59 Dose: Infused Documented By: CRISTHIAN Vancomycin HCl 1,500 mg/ (Sodium Chloride) 500 mls @ 333.333 mls/hr IV Q24H [facility] Last Infusion: 08/02/25 12:07 Dose: Infused Documented By: CRISTHIAN Insulin Glargine (Insulin Glargine,Hum.Rec.Anlog 100 Unit/Ml 10 Ml Vial) 25 unit SUBCUT BEDTIME [facility] Last Admin: 08/01/25 21:41 Dose: 25 unit Documented By: EDDI Insulin Human Lispro (Insulin Lispro 100 Unit/Ml 3 Ml Vial) 0 unit SUBCUT QIDACHS [facility]; Protocol Last Admin: 08/02/25 11:36 Dose: Not Given Documented By: CRISTHIAN Non-Admin Reason: No Insulin Coverage Loratadine (Loratadine 10 Mg Tablet) 10 mg PO DAILY [facility] Last Admin: 08/02/25 07:42 Dose: 10 mg Documented By: CRISTHIAN Magnesium Hydroxide (Milk Of Magnesia 30 Ml Oral.Susp) 30 ml PO DAILY PRN PRN Reason: Constipation Last Admin: 07/22/25 09:15 Dose: 30 ml Documented By: GILSON Meclizine HCl (Meclizine Hcl 12.5 Mg Tablet) 12.5 mg PO TID PRN PRN Reason: dizziness Melatonin (Melatonin 3 Mg Tablet) 6 mg PO BEDTIME PRN PRN Reason: Insomnia Methylprednisolone Sodium Succinate (Methylprednisolone Sod Succ 125 Mg/2 Ml Vial) 60 mg IVPUSH Q6H [facility] Last Admin: 08/02/25 10:36 Dose: 60 mg Documented By: CRISTHIAN Montelukast Sodium (Montelukast Sodium 10 Mg Tablet) 10 mg PO BEDTIME [facility] Last Admin: 08/01/25 20:48 Dose: 10 mg Documented By: EDDI Nitroglycerin (Nitroglycerin 0.4 Mg Tab.Subl) 0.4 mg SUBLINGUAL Q5M PRN PRN Reason: chest pain Ondansetron HCl (Ondansetron Hcl 4 Mg/2 Ml Vial) 4 mg IVPUSH Q4H PRN PRN Reason: Nausea and Vomiting Last Admin: 08/02/25 08:49 Dose: 4 mg Documented By: CRISTHIAN Pantoprazole Sodium (Pantoprazole Sodium 20 Mg Tablet.Dr) 40 mg PO BID@0630,1630 [facility] Last Admin: 08/02/25 05:45 Dose: 40 mg Documented By: EDDI Pharmacy Consult (Consult Rx Vancomycin Dosing) 1 each MISCELLANE DAILY PRN PRN Reason: Consult order Polyethylene Glycol (Polyethylene Glycol 3350 17 Gm Powd.Pack) 17 gm PO BID PRN PRN Reason: Constipation Potassium Chloride (Potassium Chloride Er 20 Meq Tab.Er.Prt) 40 meq PO BID [facility] Last Admin: 08/02/25 08:50 Dose: 40 meq Documented By: CRISTHIAN Sodium Chloride (0.9 % Sodium Chloride Flush 3 Ml Syringe) 3 ml IVFLUSH QSHIFT [facility] Last Admin: 08/02/25 07:43 Dose: 3 ml Documented By: CRISTHIAN Vitamin D (Cholecalciferol (Vitamin D3) 25 Mcg Tablet) 25 mcg PO DAILY [facility] Last Admin: 08/02/25 07:42 Dose: 25 mcg Documented By: CRISTHIAN Labs 08/02/25 06:24 08/02/25 06:24 Labs: Laboratory Results - last 24 hr 08/01/25 08/01/25 08/02/25 16:33 21:09 06:24 MCV 74.9 L MCH 23.1 L MCHC 30.8 L RDW 24.1 H Plt Count 83 L MPV Not Reportable Immature Gran % (Auto) 0.7 H Neut % (Auto) 96.4 H Lymph % (Auto) 1.3 L [place] % (Auto) 1.4 L Eos % (Auto) 0.0 Baso % (Auto) 0.2 Lymph # (Auto) 0.3 L [place] # (Auto) 0.3 Eos # (Auto) 0.0 Baso # (Auto) 0.1 Abs Immat Gran (auto) 0.15 H Absolute Neuts (auto) 20.5 H Absolute Nucleated RBC 0.000 Nucleated RBC % (auto) 0.0 Smear Tech's Comments VERIFIED Anion Gap 12 Estim Creat Clear Calc 54.3 Estimated GFR 57 POC Glucose 186 H 194 H Fasting Glucose 112 H Calcium 8.4 Magnesium 2.5 Total Bilirubin 1.1 H AST 47 H ALT 67 H Alkaline Phosphatase 95 Total Protein 5.7 L Albumin 2.9 L Procalcitonin 0.19 Nasal Screen MRSA (PCR) Nasal S. aureus Screen Nasal MRSA/S.aureus Interp Random Vancomycin 17.0 08/02/25 08/02/25 08/02/25 06:50 10:23 10:53 MCV MCH MCHC RDW Plt Count MPV Immature Gran % (Auto) Neut % (Auto) Lymph % (Auto) [place] % (Auto) Eos % (Auto) Baso % (Auto) Lymph # (Auto) [place] # (Auto) Eos # (Auto) Baso # (Auto) Abs Immat Gran (auto) Absolute Neuts (auto) Absolute Nucleated RBC Nucleated RBC % (auto) Smear Tech's Comments Anion Gap Estim Creat Clear Calc Estimated GFR POC Glucose 107 108 Fasting Glucose Calcium Magnesium Total Bilirubin AST ALT Alkaline Phosphatase Total Protein Albumin Procalcitonin Nasal Screen MRSA (PCR) NEGATIVE Nasal S. aureus Screen NEGATIVE Nasal MRSA/S.aureus Interp SEE NOTE Random Vancomycin Assessment and Plan (1) Aspiration pneumonia: Status: Acute (2) Asthma with COPD: Status: Acute Plan d13, 74yo F with COPD, ALYSIA, CAD s/p PCI, HFpEF, DM2, pAF, JEAN, tracheal stenosis s/p tracheoplasty presenting with worsening dyspnea, admitted for respiratory failure acute hypoxic respiratory failure due to COPD and pneumonia and acute-chronic HFpEF - continue IV Solumedrol 60mg IV q6h, nebs - change piperacillin-tazobactam 07/30-08/02 to ampicillin-sulbactam 08/02 due to thrombocytopenia as below - MRSA neg; d/c vancomycin 07/30-08/02 - BCx neg; check urinary antigens for Legionella and pneumococcus - resume IV diuresis, monitor lytes/NT-proBNP - supplemental O2, wean as tolerated - TTE 07/30: '- Normal left ventricular cavity size. There is moderately increased left ventricular wall thickness. The left ventricular systolic function is hyperdynamic. The visually estimated ejection fraction is >70%. - There is severe septal asymmetric hypertrophy. - Elevated filling pressures. - Normal right ventricular cavity size and systolic function. - There is moderate aortic valve stenosis.' hypok - replete IV/PO, recheck level tomorrow thrombocytopenia - suspect drug effect; d/c piperacillin-tazobactam and change to ampicillin- sulbactam; recheck CBC tomorrow hyperNa - mild, encourage free water intake PO; recheck BMP tomorrow HTN - amlodipine, hydralazine, diltiazem, carvedilol pAF - diltiazem, carvedilol - apixaban CAD - atorvastatin DM2 - otilio-dose lispro VTE ppx: apixaban dispo: STR In my clinical judgment, the patient requires continued inpatient hospitalization for the following reasons: IV diuresis, IV ABX, resp failure Total time managing care of this patient today: 45 minutes. Quality Stroke Does the patient have a stroke diagnosis?: No VTE Prior VTE?: No VTE Risk Level:: Medical - moderate - high VTE Device Contraindication: N/A - Device Ordered VTE Drug Contraindication: N/A - Med Ordered
[2025-08-02 16:27] LABS: Glucose, Whole Blood 116 mg/dL (60-115)
[2025-08-02 20:54] LABS: Glucose, Whole Blood 245 mg/dL (60-115)
[2025-08-02] MEDS: Insulin Glargine,Hum.rec.anlog 100 UNIT/ML 10 ML VIAL 25 UNIT SUBCUT (21:54)
[2025-08-02] MEDS: Albuterol/Iprat 2.5/0.5MG 3 ML AMPUL.NEB INHALE (22:25)
[2025-08-02] MEDS: Albuterol Sulfate 2.5 MG, Albuterol/Iprat 2.5/0.5MG 3 ML 3 ML INHALE (23:50)
[2025-08-03] VITALS (8 sets, daily range): BP systolic 132–158; BP diastolic 58–74; PULSE 65–80; RESP 18–26; TEMP 36.1–36.9; O2SAT 86–92
[2025-08-03 00:14] LABS: VBG HCO3 36 mmol/L (22-26); VBG O2 % Saturation 77.0 %
[2025-08-03 00:20] LABS: Hemoglobin 8.6 g/dl (12.0-16.0); NRBC Abs Auto 0.000 X10*3/uL (0.0-0.012); NRBC Pct Auto 0.0 /100WBC (0.0-0.2); SCAN SMEAR FLAG 1
[2025-08-03 00:22] LABS: Hematocrit 28.3 % (37.0-47.0); Imm Gran Abs Auto 0.08 X10*3/uL (0.00-0.03); Imm Gran Pct Auto 0.5 % (0.0-0.4); Lymphocytes Absolute Auto 0.2 X10*3/uL (1.2-4.9); MANUAL DIFF FLAG SCAN; Mean Corpuscular HGB Conc 30.4 g/dl (31.0-35.0); Mean Corpuscular Hemoglobin 23.0 pg (27.0-33.0); Mean Corpuscular Volume 75.7 fL (80.0-98.0); Red Blood Count 3.74 X10*6/uL (4.20-5.50); White Blood Count 16.2 X10*3/uL (4.8-10.8)
[2025-08-03 00:26] LABS: PLT ABN DIST 1
[2025-08-03 00:44] LABS: Anion Gap 13 (12-20); Blood Urea Nitrogen 51 mg/dL (9-16); Calcium 7.8 mg/dL (8.4-10.2); Carbon Dioxide 30 mmol/L (22-29); Chloride 105 mmol/L (96-108); Creatinine Clr Calc Pharmacy 46.2; Estimated Glomerular Filt Rate 47; Magnesium 2.3 mg/dL (1.6-2.6); Potassium 3.4 mmol/L (3.3-5.1); Sodium 145 mmol/L (135-145)
[2025-08-03 00:48] LABS: Venous Blood Gas Refer to POC result
[2025-08-03 00:57] LABS: Platelet Count 56 X10*3/uL (160-400)
[2025-08-03 07:15] LABS: Hematocrit 28.1 % (37.0-47.0); Hemoglobin 8.5 g/dl (12.0-16.0); Mean Corpuscular HGB Conc 30.2 g/dl (31.0-35.0); Mean Corpuscular Hemoglobin 23.0 pg (27.0-33.0); Mean Corpuscular Volume 75.9 fL (80.0-98.0); NRBC Abs Auto 0.000 X10*3/uL (0.0-0.012); NRBC Pct Auto 0.0 /100WBC (0.0-0.2); Red Blood Count 3.70 X10*6/uL (4.20-5.50); White Blood Count 16.0 X10*3/uL (4.8-10.8)
[2025-08-03 07:18] LABS: Anion Gap 14 (12-20); Blood Urea Nitrogen 58 mg/dL (9-16); Calcium 8.0 mg/dL (8.4-10.2); Carbon Dioxide 30 mmol/L (22-29); Chloride 105 mmol/L (96-108); Creatinine Clr Calc Pharmacy 46.2; Estimated Glomerular Filt Rate 47; Magnesium 2.5 mg/dL (1.6-2.6); Potassium 3.6 mmol/L (3.3-5.1); Sodium 145 mmol/L (135-145)
[2025-08-03 07:20] LABS: Platelet Count 57 X10*3/uL (160-400)
[2025-08-03 07:35] LABS: Glucose, Whole Blood 193 mg/dL (60-115)
[2025-08-03] MEDS: Furosemide 40 MG/4 ML VIAL IVPUSH (07:57)
[2025-08-03] MEDS: dilTIAZem HCL CD 300 MG CAP.ER.24H PO (08:00)
[2025-08-03] MEDS: 0.9 % Sodium Chloride Flush 3 ML SYRINGE IVFLUSH ×3 (08:00→21:00)
[2025-08-03] MEDS: Ferrous Sulfate 324 MG TABLET.DR PO ×3 (08:01→20:51)
[2025-08-03] MEDS: Potassium Chloride ER 20 MEQ TAB.ER.PRT 40 MEQ PO ×2 (08:01→20:50)
[2025-08-03] MEDS: Albuterol/Iprat 2.5/0.5MG 3 ML AMPUL.NEB INHALE (11:17)
[2025-08-03 11:46] LABS: Glucose, Whole Blood 276 mg/dL (60-115)
[2025-08-03] MEDS: Furosemide 100 MG/10 ML VIAL 60 MG IVPUSH (12:11)
--- NOTE | 2025-08-03 14:05 | HO.PM.IMPN ---
Subjective Subjective Date of Service: 08/03/25 Interval History: feels short of breath, still requiring 4L O2 negative 2.5L thus far cumulatively Review of Systems Review of Systems: Yes all other systems are reviewed and are negative Physical Exam Vital Signs: Vital Signs: Last Vital Signs Temp 97.4 F 08/03/25 12:00 Pulse 69 08/03/25 12:00 Resp 24 H 08/03/25 12:00 BP 137/63 08/03/25 12:00 Pulse Ox 86 L 08/03/25 12:00 O2 Del Method Nasal Cannula 08/03/25 12:00 O2 Flow Rate 4 08/03/25 12:00 Oxygen Flow Rate 2 07/20/25 11:16 BMI result Body Mass Index 34.3 Gen: in no acute distress HEENT: sclera anicteric, moist mucus membranes Neck: supple, JVD present Lungs: bilateral inspiratory wet crackles Heart: regular rate and rhythm, no murmurs Abd: soft, non-tender, non-distended Ext: trace leg edema Skin: warm/well-perfused Neuro: alert and oriented x3, no focal findings Psych: appropriate affect Objective Data Active Medications Acetaminophen (Acetaminophen 325 Mg Tablet) 650 mg PO Q6H PRN PRN Reason: Pain, Mild 1-3,fever,headache Last Admin: 07/30/25 04:12 Dose: 650 mg Documented By: BECK Albuterol Sulfate (Albuterol Sulfate (0.083%) 2.5 Mg/3 Ml Vial.Neb) 2.5 mg INHALE Q2H PRN PRN Reason: Shortness of Breath/Wheezing Albuterol/Ipratropium (Albuterol/Iprat 2.5/0.5mg 3 Ml Ampul.Neb) 3 ml INHALE RQ4H WHILE AWAKE PRN PRN Reason: sob Last Admin: 08/03/25 11:17 Dose: 3 ml Documented By: DANA Amlodipine Besylate (Amlodipine Besylate 10 Mg Tablet) 10 mg PO DAILY [facility]; Protocol Last Admin: 08/03/25 08:01 Dose: 10 mg Documented By: DANA Apixaban (Apixaban 5 Mg Tablet) 5 mg PO BID [facility] Last Admin: 08/03/25 08:01 Dose: 5 mg Documented By: DANA Atorvastatin Calcium (Atorvastatin Calcium 80 Mg Tablet) 80 mg PO BEDTIME [facility] Last Admin: 08/02/25 21:53 Dose: 80 mg Documented By: AMILCAR Benzocaine (Throat Lozenge, Medicated Lozenge) 1 lozenge MUCOUS MEM Q2H PRN PRN Reason: Sore Throat Last Admin: 07/28/25 21:10 Dose: 1 lozenge Documented By: JESUS Buspirone HCl (Buspirone Hcl 10 Mg Tablet) 10 mg PO BID [facility] Last Admin: 08/03/25 08:01 Dose: 10 mg Documented By: DANA Calcium Carbonate (Calcium Carbonate 750 Mg Tab.Chew) 750 mg PO Q4H PRN PRN Reason: Heartburn Carvedilol (Carvedilol 12.5 Mg Tablet) 12.5 mg PO BID [facility]; Protocol Last Admin: 08/03/25 08:01 Dose: 12.5 mg Documented By: DANA Dextrose (Dextrose 50 % 25 Gm/50 Ml Syringe) 25 gm IVPUSH Q15M PRN; Protocol PRN Reason: per Hypoglycemia Standing Ord. Diltiazem HCl (Diltiazem Hcl Cd 300 Mg Cap.Er.24h) 300 mg PO DAILY [facility]; Protocol Last Admin: 08/03/25 08:00 Dose: 300 mg Documented By: DANA Docusate Sodium (Docusate Sodium 100 Mg Capsule) 100 mg PO BID PRN PRN Reason: Constipation Last Admin: 07/27/25 20:56 Dose: 100 mg Documented By: JESUS Escitalopram Oxalate (Escitalopram Oxalate 10 Mg Tablet) 15 mg PO DAILY [facility] Last Admin: 08/03/25 08:02 Dose: 15 mg Documented By: DANA Famotidine (Famotidine 20 Mg Tablet) 20 mg PO DAILY PRN PRN Reason: GERD/Acid Reflux Ferrous Sulfate (Ferrous Sulfate 324 Mg Tablet.Dr) 324 mg PO TID [facility] Last Admin: 08/03/25 08:01 Dose: 324 mg Documented By: DANA Furosemide (Furosemide 40 Mg/4 Ml Vial) 60 mg IVPUSH BID@0900,1800 [facility]; Protocol Glucose (Glucose Gel 15 Gm Gel..Gram.) 15 gm PO Q15M PRN; Protocol PRN Reason: per Hypoglycemia Standing Ord. Guaifenesin (Guaifenesin 200 Mg/10 Ml 10 Ml Liquid) 10 ml PO Q4H PRN PRN Reason: Cough Last Admin: 07/31/25 20:13 Dose: 10 ml Documented By: EDDI Hydralazine HCl (Hydralazine Hcl 25 Mg Tablet) 25 mg PO TID [facility]; Protocol Last Admin: 08/03/25 08:01 Dose: 25 mg Documented By: DANA Ampicillin Sodium/Sulbactam (Sodium 3 gm/ Sodium Chloride) 100 mls @ 200 mls/hr IV Q6H [facility] Last Infusion: 08/03/25 08:48 Dose: Infused Documented By: DANA Insulin Glargine (Insulin Glargine,Hum.Rec.Anlog 100 Unit/Ml 10 Ml Vial) 25 unit SUBCUT BEDTIME [facility] Last Admin: 08/02/25 21:54 Dose: 25 unit Documented By: AMILCAR Insulin Human Lispro (Insulin Lispro 100 Unit/Ml 3 Ml Vial) 0 unit SUBCUT QIDACHS [facility]; Protocol Last Admin: 08/03/25 11:41 Dose: 6 unit Documented By: DANA Loratadine (Loratadine 10 Mg Tablet) 10 mg PO DAILY [facility] Last Admin: 08/03/25 08:01 Dose: 10 mg Documented By: DANA Magnesium Hydroxide (Milk Of Magnesia 30 Ml Oral.Susp) 30 ml PO DAILY PRN PRN Reason: Constipation Last Admin: 07/22/25 09:15 Dose: 30 ml Documented By: GILSON Meclizine HCl (Meclizine Hcl 12.5 Mg Tablet) 12.5 mg PO TID PRN PRN Reason: dizziness Melatonin (Melatonin 3 Mg Tablet) 6 mg PO BEDTIME PRN PRN Reason: Insomnia Methylprednisolone Sodium Succinate (Methylprednisolone Sod Succ 125 Mg/2 Ml Vial) 60 mg IVPUSH Q6H [facility] Last Admin: 08/03/25 11:06 Dose: 60 mg Documented By: DANA Montelukast Sodium (Montelukast Sodium 10 Mg Tablet) 10 mg PO BEDTIME [facility] Last Admin: 08/02/25 21:52 Dose: 10 mg Documented By: AMILCAR Nitroglycerin (Nitroglycerin 0.4 Mg Tab.Subl) 0.4 mg SUBLINGUAL Q5M PRN PRN Reason: chest pain Ondansetron HCl (Ondansetron Hcl 4 Mg/2 Ml Vial) 4 mg IVPUSH Q4H PRN PRN Reason: Nausea and Vomiting Last Admin: 08/02/25 08:49 Dose: 4 mg Documented By: CRISTHIAN Pantoprazole Sodium (Pantoprazole Sodium 20 Mg Tablet.Dr) 40 mg PO BID@0630,1630 [facility] Last Admin: 08/03/25 06:14 Dose: 40 mg Documented By: ANTOIC Polyethylene Glycol (Polyethylene Glycol 3350 17 Gm Powd.Pack) 17 gm PO BID PRN PRN Reason: Constipation Potassium Chloride (Potassium Chloride Er 20 Meq Tab.Er.Prt) 40 meq PO BID [facility] Last Admin: 08/03/25 08:01 Dose: 40 meq Documented By: DANA Sodium Chloride (0.9 % Sodium Chloride Flush 3 Ml Syringe) 3 ml IVFLUSH QSHIFT [facility] Last Admin: 08/03/25 08:00 Dose: 3 ml Documented By: DANA Vitamin D (Cholecalciferol (Vitamin D3) 25 Mcg Tablet) 25 mcg PO DAILY [facility] Last Admin: 08/03/25 08:01 Dose: 25 mcg Documented By: DANA Labs 08/03/25 06:25 08/03/25 06:25 Labs: Laboratory Results - last 24 hr 08/02/25 08/02/25 08/03/25 16:24 20:37 00:01 MCV 75.7 L MCH 23.0 L MCHC 30.4 L RDW 24.0 H Plt Count 56 L D MPV Not Reportable Immature Gran % (Auto) 0.5 H Neut % (Auto) 96.7 H Lymph % (Auto) 1.2 L [place] % (Auto) 1.4 L Eos % (Auto) 0.0 Baso % (Auto) 0.2 Lymph # (Auto) 0.2 L [place] # (Auto) 0.2 Eos # (Auto) 0.0 Baso # (Auto) 0.0 Abs Immat Gran (auto) 0.08 H Absolute Neuts (auto) 15.7 H Absolute Nucleated RBC 0.000 Nucleated RBC % (auto) 0.0 Smear Tech's Comments VERIFIED VBG pH VBG pCO2 VBG pO2 VBG HCO3 VBG O2 Saturation VBG Base Excess Anion Gap 13 Estim Creat Clear Calc 46.2 Estimated GFR 47 POC Glucose 116 H 245 H Random Glucose 254 H Calcium 7.8 L D Magnesium 2.3 NT-Pro-B Natriuret Pep 4275.9 H 08/03/25 08/03/25 08/03/25 00:08 06:25 07:24 MCV 75.9 L MCH 23.0 L MCHC 30.2 L RDW 24.2 H Plt Count 57 L MPV Not Reportable Immature Gran % (Auto) Neut % (Auto) Lymph % (Auto) [place] % (Auto) Eos % (Auto) Baso % (Auto) Lymph # (Auto) [place] # (Auto) Eos # (Auto) Baso # (Auto) Abs Immat Gran (auto) Absolute Neuts (auto) Absolute Nucleated RBC 0.000 Nucleated RBC % (auto) 0.0 Smear Tech's Comments VBG pH 7.49 H VBG pCO2 47 VBG pO2 52 VBG HCO3 36 H VBG O2 Saturation 77.0 VBG Base Excess 12.2 Anion Gap 14 Estim Creat Clear Calc 46.2 Estimated GFR 47 POC Glucose 193 H Random Glucose 211 H Calcium 8.0 L Magnesium 2.5 NT-Pro-B Natriuret Pep 3764.4 H 08/03/25 11:24 MCV MCH MCHC RDW Plt Count MPV Immature Gran % (Auto) Neut % (Auto) Lymph % (Auto) [place] % (Auto) Eos % (Auto) Baso % (Auto) Lymph # (Auto) [place] # (Auto) Eos # (Auto) Baso # (Auto) Abs Immat Gran (auto) Absolute Neuts (auto) Absolute Nucleated RBC Nucleated RBC % (auto) Smear Tech's Comments VBG pH VBG pCO2 VBG pO2 VBG HCO3 VBG O2 Saturation VBG Base Excess Anion Gap Estim Creat Clear Calc Estimated GFR POC Glucose 276 H Random Glucose Calcium Magnesium NT-Pro-B Natriuret Pep Assessment and Plan (1) Aspiration pneumonia: Status: Acute (2) Asthma with COPD: Status: Acute Plan d1, 74yo F with COPD, ALYSIA, CAD s/p PCI, HFpEF, DM2, pAF, JEAN, tracheal stenosis s/p tracheoplasty presenting with worsening dyspnea, admitted for respiratory failure acute hypoxic respiratory failure due to COPD and pneumonia and acute-chronic HFpEF - continue IV Solumedrol 60mg IV q6h, nebs - changed piperacillin-tazobactam 07/30-08/02 to ampicillin-sulbactam 08/02 due to thrombocytopenia as below - MRSA neg; d/c'ed vancomycin 07/30-08/02 - BCx neg; check urinary antigens for Legionella and pneumococcus - resume IV diuresis 08/02, increase dose/frequency, monitor lytes/NT-proBNP - supplemental O2, wean as tolerated - TTE 07/30: '- Normal left ventricular cavity size. There is moderately increased left ventricular wall thickness. The left ventricular systolic function is hyperdynamic. The visually estimated ejection fraction is >70%. - There is severe septal asymmetric hypertrophy. - Elevated filling pressures. - Normal right ventricular cavity size and systolic function. - There is moderate aortic valve stenosis.' hypok - repleted thrombocytopenia - suspect drug effect; d/c'ed piperacillin-tazobactam and change to ampicillin-sulbactam; recheck CBC tomorrow hyperNa - resolved HTN - amlodipine, hydralazine, diltiazem, carvedilol pAF - diltiazem, carvedilol - apixaban CAD - atorvastatin DM2 - otilio-dose lispro VTE ppx: apixaban dispo: STR In my clinical judgment, the patient requires continued inpatient hospitalization for the following reasons: IV diuresis, IV ABX, resp failure Total time managing care of this patient today: 45 minutes. Quality Stroke Does the patient have a stroke diagnosis?: No VTE Prior VTE?: No VTE Risk Level:: Medical - moderate - high VTE Device Contraindication: N/A - Device Ordered VTE Drug Contraindication: N/A - Med Ordered
--- NOTE | 2025-08-03 14:05 | MHC.CM.PN ---
PE RTOUNDS PT NOT READY FOR DC DC PLAN REMAINS HOME W/[facility]
--- NOTE | 2025-08-03 16:19 | MHC.SL.SWA ---
Speech Pathologist Impression: Mild Oropharyngeal dysphagia Risk of Aspiration Due to: Current respiratory status Dysphasia Diet Status: Recommend CONTINUE on Chopped/Advanced (NDD3), NECTAR THICK liquids, pills WHOLE in puree. Liquid Consistency and Strategies for Safe Swallow: Liquid Intake Recommendation: [place] Thick Liquid Intake Strategies: Small Sips Solid Food Consistency: Dietary Recommendations: Additional Modifications to Solid Foods: Unthickened water permitted for hydration/pleasure, NOT with meals (*in isolation, sips of thin water is permitted) SMALL AMOUNT- only ~8 fl oz/day Oral Medication Intake: Whole with Puree Please contact the pharmacy regarding appropriate crushable or liquid drug formulations that are available whenever modified delivery is recommended. Compensatory Strategies and Precautions to be Taken for Safe Swallow: Sitting Upright (90 deg) Liquids from Cup Small Bites and Sips Alternate Liquids/Solids Supervision While Eating and Drinking for Safe Swallow: Intermittent Supervision Foods to Avoid: Swallowing Recommended Treatments: Compens. Strategy Educat. Recommendation for Speech: Inpatient Speech Therapy Speech Therapy through [facility] Comment: Patient seen briefly for dysphagia treatment. Per nursing, patient with congested breathing and worsening respiratory status, patient drinking large amounts of unthickened water. Patient met in room, seen lying in bed. Audible/congested breathing noted; HOB elevated for PO intake. Patient reporting decrease in appetite; ordered soup for dinner. Patient seen with cup of thin water at bedside and pitcher of ice water at bedside. Patient re-educated on free water protocol. Encouraged to only drink few sips of thin water after oral hygiene vs drinking thin water and everything else thickened. Patient politely refusing solid trial this date. Observed patient taking small, cup sip of thin water with no s/sx of penetration/aspiration. Recommend CONTINUE with diet of NDD3 (chopped/advanced), NECTAR THICK LIQUIDS. Thin water okay in SMALL AMOUNTS. Possible need to discontinue free water protocol is patient continues with noncompliance/misunderstandings with protocol. BRUSHER OPERATOR to continue to follow. RN notified and educated in-person on diet recommendations. Recc BRUSHER OPERATOR tx upon d/c from hospital to manage dysphagia. Frequency/Duration: M-F Date Range for Service Req: Timeline to reassess: Interior Block Wirer Clinican/Clinical Fellow: No Supervisory Statement: I have reviewed and agree with the student/clinical fellow's documentation: N/A Speech Language Pathologist: Mary Mcarthur M.A., [facility]-BRUSHER OPERATOR
[2025-08-03 16:23] LABS: Glucose, Whole Blood 180 mg/dL (60-115)
[2025-08-03] MEDS: Furosemide 40 MG/4 ML VIAL 60 MG IVPUSH (17:26)
[2025-08-03 20:17] LABS: Glucose, Whole Blood 256 mg/dL (60-115)
[2025-08-03] MEDS: Insulin Glargine,Hum.rec.anlog 100 UNIT/ML 10 ML VIAL 25 UNIT SUBCUT (20:52)
[2025-08-04] VITALS (14 sets, daily range): BP systolic 129–158; BP diastolic 59–72; PULSE 48–86; RESP 18–26; TEMP 36.6–37.1; O2SAT 89–94
[2025-08-04 07:02] LABS: Glucose, Whole Blood 296 mg/dL (60-115)
[2025-08-04 07:13] LABS: Hematocrit 24.0 % (37.0-47.0); Hemoglobin 7.2 g/dl (12.0-16.0); Mean Corpuscular HGB Conc 30.0 g/dl (31.0-35.0); Mean Corpuscular Hemoglobin 22.7 pg (27.0-33.0); Mean Corpuscular Volume 75.7 fL (80.0-98.0); NRBC Abs Auto 0.000 X10*3/uL (0.0-0.012); NRBC Pct Auto 0.0 /100WBC (0.0-0.2); Red Blood Count 3.17 X10*6/uL (4.20-5.50); White Blood Count 10.0 X10*3/uL (4.8-10.8)
[2025-08-04 07:16] LABS: PLT ABN DIST 1
[2025-08-04 07:40] LABS: Anion Gap 14 (12-20); Blood Urea Nitrogen 80 mg/dL (9-16); Calcium 7.7 mg/dL (8.4-10.2); Carbon Dioxide 26 mmol/L (22-29); Chloride 108 mmol/L (96-108); Creatinine Clr Calc Pharmacy 34.3; Estimated Glomerular Filt Rate 33; Magnesium 2.4 mg/dL (1.6-2.6); Potassium 4.2 mmol/L (3.3-5.1); Sodium 144 mmol/L (135-145)
[2025-08-04 07:48] LABS: Platelet Count 56 X10*3/uL (160-400)
[2025-08-04] MEDS: Furosemide 40 MG/4 ML VIAL 60 MG IVPUSH (08:18)
[2025-08-04] MEDS: Potassium Chloride ER 20 MEQ TAB.ER.PRT 40 MEQ PO ×2 (08:29→20:37)
[2025-08-04] MEDS: dilTIAZem HCL CD 300 MG CAP.ER.24H PO (08:29)
[2025-08-04] MEDS: Ferrous Sulfate 324 MG TABLET.DR PO ×3 (08:29→20:37)
[2025-08-04] MEDS: 0.9 % Sodium Chloride Flush 3 ML SYRINGE IVFLUSH ×2 (08:30→15:17)
--- NOTE | 2025-08-04 08:53 | PC.NURSE ---
increased SOB , KENNY lungs crackles , increased respiratory effort, DR Damon at the bedside , RT at bedside , high flow applied at 55l/ 65%, Lasix drip ordered , CXray
[2025-08-04] MEDS: Furosemide 200 MG in 0.9 % Sodium Chloride 80 ML IVCONT (10:14)
[2025-08-04 11:01] LABS: Glucose, Whole Blood 282 mg/dL (60-115)
--- NOTE | 2025-08-04 11:45 | HO.PM.IMPN ---
Subjective Subjective Date of Service: 08/04/25 Interval History: worsening hypoxia and shortness of breath Review of Systems Review of Systems: Yes all other systems are reviewed and are negative Physical Exam Vital Signs: Vital Signs: Last Vital Signs Temp 98.0 F 08/04/25 11:02 Pulse 71 08/04/25 11:02 Resp 20 08/04/25 11:02 BP 149/64 H 08/04/25 11:02 Pulse Ox 94 08/04/25 11:02 O2 Del Method High Flow Nasal C annula 08/04/25 11:02 O2 Flow Rate 55 08/04/25 11:02 FiO2 65 08/04/25 11:02 Oxygen Flow Rate 2 07/20/25 11:16 BMI result Body Mass Index 34.3 Gen: in no acute distress HEENT: sclera anicteric, moist mucus membranes Neck: supple, JVD present Lungs: bilateral inspiratory wet crackles Heart: regular rate and rhythm, no murmurs Abd: soft, non-tender, non-distended Ext: 1+ bilateral leg edema Skin: warm/well-perfused Neuro: alert and oriented x3, no focal findings Psych: appropriate affect Objective Data Active Medications Acetaminophen (Acetaminophen 325 Mg Tablet) 650 mg PO Q6H PRN PRN Reason: Pain, Mild 1-3,fever,headache Last Admin: 07/30/25 04:12 Dose: 650 mg Documented By: BECK Albuterol Sulfate (Albuterol Sulfate (0.083%) 2.5 Mg/3 Ml Vial.Neb) 2.5 mg INHALE Q2H PRN PRN Reason: Shortness of Breath/Wheezing Albuterol/Ipratropium (Albuterol/Iprat 2.5/0.5mg 3 Ml Ampul.Neb) 3 ml INHALE RQ4H WHILE AWAKE PRN PRN Reason: sob Last Admin: 08/03/25 11:17 Dose: 3 ml Documented By: DANA Amlodipine Besylate (Amlodipine Besylate 10 Mg Tablet) 10 mg PO DAILY [facility]; Protocol Last Admin: 08/04/25 08:28 Dose: 10 mg Documented By: TREVON Apixaban (Apixaban 5 Mg Tablet) 5 mg PO BID [facility] Last Admin: 08/04/25 08:29 Dose: 5 mg Documented By: TREVON Atorvastatin Calcium (Atorvastatin Calcium 80 Mg Tablet) 80 mg PO BEDTIME [facility] Last Admin: 08/03/25 20:51 Dose: 80 mg Documented By: HEATHER Benzocaine (Throat Lozenge, Medicated Lozenge) 1 lozenge MUCOUS MEM Q2H PRN PRN Reason: Sore Throat Last Admin: 07/28/25 21:10 Dose: 1 lozenge Documented By: JESUS Buspirone HCl (Buspirone Hcl 10 Mg Tablet) 10 mg PO BID [facility] Last Admin: 08/04/25 08:30 Dose: 10 mg Documented By: TREVON Calcium Carbonate (Calcium Carbonate 750 Mg Tab.Chew) 750 mg PO Q4H PRN PRN Reason: Heartburn Carvedilol (Carvedilol 12.5 Mg Tablet) 12.5 mg PO BID [facility]; Protocol Last Admin: 08/04/25 08:29 Dose: 12.5 mg Documented By: TREVON Dextrose (Dextrose 50 % 25 Gm/50 Ml Syringe) 25 gm IVPUSH Q15M PRN; Protocol PRN Reason: per Hypoglycemia Standing Ord. Diltiazem HCl (Diltiazem Hcl Cd 300 Mg Cap.Er.24h) 300 mg PO DAILY [facility]; Protocol Last Admin: 08/04/25 08:29 Dose: 300 mg Documented By: TREVON Docusate Sodium (Docusate Sodium 100 Mg Capsule) 100 mg PO BID PRN PRN Reason: Constipation Last Admin: 07/27/25 20:56 Dose: 100 mg Documented By: JESUS Escitalopram Oxalate (Escitalopram Oxalate 10 Mg Tablet) 15 mg PO DAILY [facility] Last Admin: 08/04/25 08:30 Dose: 15 mg Documented By: TREVON Famotidine (Famotidine 20 Mg Tablet) 20 mg PO DAILY PRN PRN Reason: GERD/Acid Reflux Ferrous Sulfate (Ferrous Sulfate 324 Mg Tablet.Dr) 324 mg PO TID [facility] Last Admin: 08/04/25 08:29 Dose: 324 mg Documented By: TREVON Glucose (Glucose Gel 15 Gm Gel..Gram.) 15 gm PO Q15M PRN; Protocol PRN Reason: per Hypoglycemia Standing Ord. Guaifenesin (Guaifenesin 200 Mg/10 Ml 10 Ml Liquid) 10 ml PO Q4H PRN PRN Reason: Cough Last Admin: 07/31/25 20:13 Dose: 10 ml Documented By: EDDI Hydralazine HCl (Hydralazine Hcl 25 Mg Tablet) 25 mg PO TID [facility]; Protocol Last Admin: 08/04/25 08:29 Dose: 25 mg Documented By: TREVON Ampicillin Sodium/Sulbactam (Sodium 3 gm/ Sodium Chloride) 100 mls @ 200 mls/hr IV Q6H [facility] Last Infusion: 08/04/25 10:26 Dose: Infused Documented By: TREVON Furosemide 200 mg/ Sodium (Chloride) 100 mls @ 2.5 mls/hr IVCONT .Q24H [facility] Last Admin: 08/04/25 10:14 Dose: 5 mg/hr, 2.5 mls/hr Documented By: TREVON Insulin Glargine (Insulin Glargine,Hum.Rec.Anlog 100 Unit/Ml 10 Ml Vial) 25 unit SUBCUT BEDTIME [facility] Last Admin: 08/03/25 20:52 Dose: 25 unit Documented By: HEATHER Insulin Human Lispro (Insulin Lispro 100 Unit/Ml 3 Ml Vial) 0 unit SUBCUT QIDACHS [facility]; Protocol Last Admin: 08/04/25 08:34 Dose: 6 unit Documented By: TREVON Loratadine (Loratadine 10 Mg Tablet) 10 mg PO DAILY [facility] Last Admin: 08/04/25 08:29 Dose: 10 mg Documented By: TREVON Magnesium Hydroxide (Milk Of Magnesia 30 Ml Oral.Susp) 30 ml PO DAILY PRN PRN Reason: Constipation Last Admin: 07/22/25 09:15 Dose: 30 ml Documented By: GILSON Meclizine HCl (Meclizine Hcl 12.5 Mg Tablet) 12.5 mg PO TID PRN PRN Reason: dizziness Melatonin (Melatonin 3 Mg Tablet) 6 mg PO BEDTIME PRN PRN Reason: Insomnia Methylprednisolone Sodium Succinate (Methylprednisolone Sod Succ 125 Mg/2 Ml Vial) 60 mg IVPUSH Q6H [facility] Last Admin: 08/04/25 10:25 Dose: 60 mg Documented By: TREVON Montelukast Sodium (Montelukast Sodium 10 Mg Tablet) 10 mg PO BEDTIME [facility] Last Admin: 08/03/25 20:51 Dose: 10 mg Documented By: HEATHER Nitroglycerin (Nitroglycerin 0.4 Mg Tab.Subl) 0.4 mg SUBLINGUAL Q5M PRN PRN Reason: chest pain Ondansetron HCl (Ondansetron Hcl 4 Mg/2 Ml Vial) 4 mg IVPUSH Q4H PRN PRN Reason: Nausea and Vomiting Last Admin: 08/02/25 08:49 Dose: 4 mg Documented By: CRISTHIAN Pantoprazole Sodium (Pantoprazole Sodium 20 Mg Tablet.Dr) 40 mg PO BID@0630,1630 [facility] Last Admin: 08/04/25 06:16 Dose: 40 mg Documented By: HEATHER Polyethylene Glycol (Polyethylene Glycol 3350 17 Gm Powd.Pack) 17 gm PO BID PRN PRN Reason: Constipation Potassium Chloride (Potassium Chloride Er 20 Meq Tab.Er.Prt) 40 meq PO BID [facility] Last Admin: 08/04/25 08:29 Dose: 40 meq Documented By: TREVON Sodium Chloride (0.9 % Sodium Chloride Flush 3 Ml Syringe) 3 ml IVFLUSH QSHIFT [facility] Last Admin: 08/04/25 08:30 Dose: 3 ml Documented By: TREVON Vitamin D (Cholecalciferol (Vitamin D3) 25 Mcg Tablet) 25 mcg PO DAILY [facility] Last Admin: 08/04/25 08:29 Dose: 25 mcg Documented By: TREVON Labs 08/04/25 06:48 08/04/25 06:48 Labs: Laboratory Results - last 24 hr 08/03/25 08/03/25 08/03/25 11:24 16:07 20:02 MCV MCH MCHC RDW Plt Count MPV Absolute Nucleated RBC Nucleated RBC % (auto) Anion Gap Estim Creat Clear Calc Estimated GFR POC Glucose 276 H 180 H 256 H Random Glucose Calcium Magnesium NT-Pro-B Natriuret Pep 08/04/25 08/04/25 08/04/25 06:48 06:54 10:49 MCV 75.7 L MCH 22.7 L MCHC 30.0 L RDW 23.9 H Plt Count 56 L MPV TNP Absolute Nucleated RBC 0.000 Nucleated RBC % (auto) 0.0 Anion Gap 14 Estim Creat Clear Calc 34.3 Estimated GFR 33 POC Glucose 296 H 282 H Random Glucose 285 H Calcium 7.7 L Magnesium 2.4 NT-Pro-B Natriuret Pep 3213.4 H Assessment and Plan (1) Aspiration pneumonia: Status: Acute (2) Asthma with COPD: Status: Acute Plan d15, 74yo F with COPD, ALYSIA, CAD s/p PCI, HFpEF, DM2, pAF, JEAN, tracheal stenosis s/p tracheoplasty presenting with worsening dyspnea, admitted for respiratory failure acute hypoxic respiratory failure due to COPD and pneumonia and acute-chronic HFpEF - continue IV Solumedrol 60mg IV q6h, nebs - changed piperacillin-tazobactam 07/30-08/02 to ampicillin-sulbactam 08/02 due to thrombocytopenia as below - MRSA neg; d/c'ed vancomycin 07/30-08/02 - BCx neg; check urinary antigens for Legionella and pneumococcus - NUCLEAR PLANT TECHNICAL ADVISOR: continue NDD3 solids + nectar liquids - change from IV furosemide push to drip; monitor lytes/NT-proBNP; negative 2.4L thus far; consult Cardiology - will place on high-flow nasal cannula - TTE 07/30: '- Normal left ventricular cavity size. There is moderately increased left ventricular wall thickness. The left ventricular systolic function is hyperdynamic. The visually estimated ejection fraction is >70%. - There is severe septal asymmetric hypertrophy. - Elevated filling pressures. - Normal right ventricular cavity size and systolic function. - There is moderate aortic valve stenosis.' hypok - repleted thrombocytopenia - suspect drug effect; d/c'ed piperacillin-tazobactam and changed to ampicillin-sulbactam; appears to have nadired; recheck CBC tomorrow hyperNa - resolved HTN - amlodipine, hydralazine, diltiazem, carvedilol pAF - diltiazem, carvedilol - apixaban CAD - atorvastatin DM2 - otilio-dose lispro VTE ppx: apixaban dispo: STR In my clinical judgment, the patient requires continued inpatient hospitalization for the following reasons: IV diuresis, IV ABX, hypoxic respiratory failure Total time managing care of this patient today: 50 minutes. Quality Stroke Does the patient have a stroke diagnosis?: No VTE Prior VTE?: No VTE Risk Level:: Medical - moderate - high VTE Device Contraindication: N/A - Device Ordered VTE Drug Contraindication: N/A - Med Ordered
--- NOTE | 2025-08-04 12:20 | PM.CNCAR ---
History of Present Illness History of Present Illness Date of Service: 08/04/25 Requesting physician: Juanito Damon Chief complaint: copd execerbation, CHF Narrative: 74-year-old lady with prolonged hospitalization who has pancytopenia, COPD exacerbation, pneumonia and acute on chronic congestive heart failure. There is aspiration concerns on her and is being treated as aspiration pneumonia. She is currently on a Lasix drip. She is on high-flow oxygen. She is complaining of chest tightness and has wheezing all over. She is saying she is not coughing up any phlegm currently. Hemoglobin is 7.2. Platelet counts are 56,000. Creatinine is 1.52 with BUN of 80. Creatinine has worsened from 1.1. 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 Father No problems noted. Brother Substance use disorder Brother Substance use disorder Surgical History Surgical History (Updated 07/27/25 @ 00:01 by Background Daemon) History of carpal tunnel surgery History of cholecystectomy History of lobectomy of lung Status post tracheoplasty History of cardiac cath Social History Social History Household Members: Family Household Members Other:: 2 Housing: House Do you presently have visiting nurse or other home services: No Alcohol intake: current Alcohol intake frequency: holidays/special occasions only Alcohol type: wine Comment: weddings Patient Tobacco Use Status: Former Tobacco user Tobacco use type: Cigarette Cigarettes Per Day: 10 Years Smoked: 3 stopped 1992 e-Cigarette/Vaping Use: Never Used Second Hand Smoke Exposure: Yes Advance Directives Date on File: 06/29/23 service: No Current occupational status: retired Cognitive needs: No Hearing needs: No Vision needs: No Meds Allergies Allergy/AdvReac Type Severity Reaction Status Date / Time Latex, Natural Rubber Allergy Severe blisters Verified 07/20/25 11:18 Sulfa (Sulfonamide Allergy Mild ITCHING, Verified 07/20/25 11:18 Antibiotics) (SULFA rash (SULFONAMIDE ANTIBIOTICS)) nystatin Allergy Unknown rash Verified 07/20/25 11:18 isosorbide (From Imdur) AdvReac Unknown HEADACHES, Verified 07/20/25 11:18 headache tizanidine AdvReac Unknown weakness, Verified 07/20/25 11:18 Hellucination Active Medications: Current Medications Acetaminophen (Acetaminophen 325 Mg Tablet) 650 mg PO Q6H PRN PRN Reason: Pain, Mild 1-3,fever,headache Last Admin: 07/30/25 04:12 Dose: 650 mg Albuterol Sulfate (Albuterol Sulfate (0.083%) 2.5 Mg/3 Ml Vial.Neb) 2.5 mg INHALE Q2H PRN PRN Reason: Shortness of Breath/Wheezing Amlodipine Besylate (Amlodipine Besylate 10 Mg Tablet) 10 mg PO DAILY [facility]; Protocol Last Admin: 08/04/25 08:28 Dose: 10 mg Apixaban (Apixaban 5 Mg Tablet) 5 mg PO BID [facility] Last Admin: 08/04/25 08:29 Dose: 5 mg Atorvastatin Calcium (Atorvastatin Calcium 80 Mg Tablet) 80 mg PO BEDTIME [facility] Last Admin: 08/03/25 20:51 Dose: 80 mg Benzocaine (Throat Lozenge, Medicated Lozenge) 1 lozenge MUCOUS MEM Q2H PRN PRN Reason: Sore Throat Last Admin: 07/28/25 21:10 Dose: 1 lozenge Buspirone HCl (Buspirone Hcl 10 Mg Tablet) 10 mg PO BID [facility] Last Admin: 08/04/25 08:30 Dose: 10 mg Calcium Carbonate (Calcium Carbonate 750 Mg Tab.Chew) 750 mg PO Q4H PRN PRN Reason: Heartburn Carvedilol (Carvedilol 12.5 Mg Tablet) 12.5 mg PO BID [facility]; Protocol Last Admin: 08/04/25 08:29 Dose: 12.5 mg Dextrose (Dextrose 50 % 25 Gm/50 Ml Syringe) 25 gm IVPUSH Q15M PRN; Protocol PRN Reason: per Hypoglycemia Standing Ord. Diltiazem HCl (Diltiazem Hcl Cd 300 Mg Cap.Er.24h) 300 mg PO DAILY [facility]; Protocol Last Admin: 08/04/25 08:29 Dose: 300 mg Docusate Sodium (Docusate Sodium 100 Mg Capsule) 100 mg PO BID PRN PRN Reason: Constipation Last Admin: 07/27/25 20:56 Dose: 100 mg Escitalopram Oxalate (Escitalopram Oxalate 10 Mg Tablet) 15 mg PO DAILY [facility]OU Last Admin: 08/04/25 08:30 Dose: 15 mg Famotidine (Famotidine 20 Mg Tablet) 20 mg PO DAILY PRN PRN Reason: GERD/Acid Reflux Ferrous Sulfate (Ferrous Sulfate 324 Mg Tablet.Dr) 324 mg PO TID LOU Last Admin: 08/04/25 08:29 Dose: 324 mg Glucose (Glucose Gel 15 Gm Gel..Gram.) 15 gm PO Q15M PRN; Protocol PRN Reason: per Hypoglycemia Standing Ord. Guaifenesin (Guaifenesin 200 Mg/10 Ml 10 Ml Liquid) 10 ml PO Q4H PRN PRN Reason: Cough Last Admin: 07/31/25 20:13 Dose: 10 ml Hydralazine HCl (Hydralazine Hcl 25 Mg Tablet) 25 mg PO TID [facility]; Protocol Last Admin: 08/04/25 08:29 Dose: 25 mg Ampicillin Sodium/Sulbactam (Sodium 3 gm/ Sodium Chloride) 100 mls @ 200 mls/hr IV Q6H [facility]OU Last Infusion: 08/04/25 10:26 Dose: Infused Furosemide 200 mg/ Sodium (Chloride) 100 mls @ 2.5 mls/hr IVCONT .Q24H [facility] Last Admin: 08/04/25 10:14 Dose: 5 mg/hr, 2.5 mls/hr Insulin Glargine (Insulin Glargine,Hum.Rec.Anlog 100 Unit/Ml 10 Ml Vial) 25 unit SUBCUT BEDTIME [facility] Last Admin: 08/03/25 20:52 Dose: 25 unit Insulin Human Lispro (Insulin Lispro 100 Unit/Ml 3 Ml Vial) 0 unit SUBCUT QIDACHS [facility]; Protocol Last Admin: 08/04/25 12:09 Dose: 6 unit Loratadine (Loratadine 10 Mg Tablet) 10 mg PO DAILY [facility] Last Admin: 08/04/25 08:29 Dose: 10 mg Magnesium Hydroxide (Milk Of Magnesia 30 Ml Oral.Susp) 30 ml PO DAILY PRN PRN Reason: Constipation Last Admin: 07/22/25 09:15 Dose: 30 ml Meclizine HCl (Meclizine Hcl 12.5 Mg Tablet) 12.5 mg PO TID PRN PRN Reason: dizziness Melatonin (Melatonin 3 Mg Tablet) 6 mg PO BEDTIME PRN PRN Reason: Insomnia Methylprednisolone Sodium Succinate (Methylprednisolone Sod Succ 125 Mg/2 Ml Vial) 60 mg IVPUSH Q6H [facility] Last Admin: 08/04/25 10:25 Dose: 60 mg Montelukast Sodium (Montelukast Sodium 10 Mg Tablet) 10 mg PO BEDTIME [facility] Last Admin: 08/03/25 20:51 Dose: 10 mg Nitroglycerin (Nitroglycerin 0.4 Mg Tab.Subl) 0.4 mg SUBLINGUAL Q5M PRN PRN Reason: chest pain Ondansetron HCl (Ondansetron Hcl 4 Mg/2 Ml Vial) 4 mg IVPUSH Q4H PRN PRN Reason: Nausea and Vomiting Last Admin: 08/02/25 08:49 Dose: 4 mg Pantoprazole Sodium (Pantoprazole Sodium 20 Mg Tablet.Dr) 40 mg PO BID@0630,1630 [facility] Last Admin: 08/04/25 06:16 Dose: 40 mg Polyethylene Glycol (Polyethylene Glycol 3350 17 Gm Powd.Pack) 17 gm PO BID PRN PRN Reason: Constipation Potassium Chloride (Potassium Chloride Er 20 Meq Tab.Er.Prt) 40 meq PO BID [facility] Last Admin: 08/04/25 08:29 Dose: 40 meq Sodium Chloride (0.9 % Sodium Chloride Flush 3 Ml Syringe) [facility] Last Admin: 08/04/25 08:30 Dose: 3 ml Vitamin D (Cholecalciferol (Vitamin D3) 25 Mcg Tablet) 25 mcg PO DAILY [facility] Last Admin: 08/04/25 08:29 Dose: 25 mcg Home Medications ?Medication ?Instructions ?Recorded ?Confirmed ?Last Taken ?Type cholecalciferol (vitamin D3) 25 25 mcg PO DAILY 08/11/23 07/20/25 07/20/25 History mcg (1,000 unit) tablet albuterol sulfate 90 mcg/actuation 2 puff inhalation QID PRN 05/17/24 07/20/25 Unknown History aerosol inhaler SOB/wheezing budesonide-formoterol HFA 160 2 puff inhalation BID PRN SOB 05/17/24 07/20/25 Unknown History mcg-4.5 mcg/actuation aerosol inhaler (Symbicort) diltiazem HCl 300 mg 300 mg PO DAILY 07/16/25 07/20/25 07/20/25 History capsule,extended release 24 hr (Cartia XT) famotidine 20 mg tablet 20 mg PO DAILY PRN GERD/Acid Reflux 07/16/25 07/20/25 Unknown History insulin lispro 100 unit/mL 1 sliding scale dose subcut TIDAC 07/16/25 07/20/25 07/20/25 History subcutaneous pen (Humalog KwikPen (U-100) Insulin) pantoprazole 40 mg tablet,delayed 40 mg PO DAILY@0630 07/16/25 07/20/25 07/20/25 History release semaglutide 2 mg/dose (8 mg/3 mL) 2 mg subcut [facility] 07/16/25 07/20/25 07/08/25 History subcutaneous pen injector (Ozempic) Physical Exam Vital Signs: Vital Signs: Last Vital Signs Temp 98.0 F 08/04/25 11:02 Pulse 71 08/04/25 11:02 Resp 20 08/04/25 11:02 BP 149/64 H 08/04/25 11:02 Pulse Ox 94 08/04/25 11:02 O2 Del Method High Flow Nasal C annula 08/04/25 11:02 O2 Flow Rate 55 08/04/25 11:02 FiO2 65 08/04/25 11:02 Oxygen Flow Rate 2 07/20/25 11:16 BMI result Body Mass Index 34.3 GENERAL APPEARANCE: On high-flow oxygen. Short of breath. NECK: no carotid bruit, mild jugular venous distention. SKIN: no suspicious lesions, warm and dry. HEART: Holosystolic murmur left sternal border, regular rate and rhythm. LUNGS: Bilateral expiratory wheezes and rhonchi. ABDOMEN: soft, nontender. EXTREMITIES: no edema. PERIPHERAL PULSES: equal. NEUROLOGIC: No gross deficits, AAO X 3 Objective Labs and Meds 08/04/25 06:48 08/04/25 06:48 Lab results: Laboratory Results - last 24 hr 08/03/25 08/03/25 08/04/25 16:07 20:02 06:48 WBC 10.0 RBC 3.17 L Hgb 7.2 L Hct 24.0 L MCV 75.7 L MCH 22.7 L MCHC 30.0 L RDW 23.9 H Plt Count 56 L MPV TNP Absolute Nucleated RBC 0.000 Nucleated RBC % (auto) 0.0 Sodium 144 Potassium 4.2 Chloride 108 Carbon Dioxide 26 Anion Gap 14 BUN 80 H Creatinine 1.52 H Estim Creat Clear Calc 34.3 Estimated GFR 33 POC Glucose 180 H 256 H Random Glucose 285 H Calcium 7.7 L Magnesium 2.4 NT-Pro-B Natriuret Pep 3213.4 H 08/04/25 08/04/25 06:54 10:49 WBC RBC Hgb Hct MCV MCH MCHC RDW Plt Count MPV Absolute Nucleated RBC Nucleated RBC % (auto) Sodium Potassium Chloride Carbon Dioxide Anion Gap BUN Creatinine Estim Creat Clear Calc Estimated GFR POC Glucose 296 H 282 H Random Glucose Calcium Magnesium NT-Pro-B Natriuret Pep Assessment and Plan (1) Aortic stenosis: Status: Acute (2) COPD (chronic obstructive pulmonary disease): Qualifiers: COPD type: unspecified COPD Qualified Code(s): J44.9 - Chronic obstructive pulmonary disease, unspecified Status: Acute (3) Aspiration pneumonia: Status: Acute Plan [age] year female with moderate aortic valve stenosis, COPD, aspiration pneumonia and diastolic heart failure. She is currently on a Lasix drip. She is wheezy all over with bilateral wheezes and rhonchi. She has minimal JVD. Creatinine is rising. Chest x-ray is showing more parenchymal disease in the right lung which is consistent with known aspiration. She does not appear to be in florid heart failure to explain the wheezing on examination. Her creatinine is also rising with diuresis. I think we hold off on further diuretics. Give nebulizers for the lungs. If aspiration is the underlying cause for pneumonia then unfortunately she may continue to have periodic wheezing and shortness of breath. Consider giving 1 unit of blood. We will follow along with you. Thank you for allowing me to participate in the care of your patient. Please feel free to contact me if you have any questions. Procedures Date of Service Date of Service: 08/04/25
[2025-08-04 16:04] LABS: Glucose, Whole Blood 173 mg/dL (60-115)
[2025-08-04 20:12] LABS: Glucose, Whole Blood 160 mg/dL (60-115)
[2025-08-04 20:17] LABS: Strep Pneumo Ag urine Not Detected (Not Detected)
[2025-08-04] MEDS: Furosemide 40 MG/4 ML VIAL IVPUSH (20:36)
[2025-08-04] MEDS: Insulin Glargine,Hum.rec.anlog 100 UNIT/ML 10 ML VIAL 25 UNIT SUBCUT (20:37)
[2025-08-05] VITALS (25 sets, daily range): BP systolic 115–161; BP diastolic 34–76; PULSE 68–89; RESP 16–36; TEMP 36.2–37.2; O2SAT 78–94
[2025-08-05 07:01] LABS: Glucose, Whole Blood 235 mg/dL (60-115)
[2025-08-05 07:46] LABS: Anion Gap 17 (12-20); Blood Urea Nitrogen 93 mg/dL (9-16); Calcium 8.0 mg/dL (8.4-10.2); Carbon Dioxide 21 mmol/L (22-29); Chloride 112 mmol/L (96-108); Creatinine Clr Calc Pharmacy 29.9; Estimated Glomerular Filt Rate 28; Magnesium 2.6 mg/dL (1.6-2.6); Potassium 5.0 mmol/L (3.3-5.1); Sodium 145 mmol/L (135-145)
[2025-08-05] MEDS: Potassium Chloride ER 20 MEQ TAB.ER.PRT 40 MEQ PO (07:46)
[2025-08-05] MEDS: Ferrous Sulfate 324 MG TABLET.DR PO ×2 (07:46→14:23)
[2025-08-05] MEDS: dilTIAZem HCL CD 300 MG CAP.ER.24H PO (07:47)
[2025-08-05] MEDS: 0.9 % Sodium Chloride Flush 3 ML SYRINGE IVFLUSH ×2 (07:47→14:58)
[2025-08-05 07:52] LABS: NT Pro B Type Natriuretic Pept 3118.6 pg/mL (<300)
[2025-08-05] MEDS: Albuterol Sulfate 7.5 MG, Albuterol/Iprat 2.5/0.5MG 3 ML 3 ML INHALE (09:16)
[2025-08-05 10:19] LABS: Hematocrit 24.0 % (37.0-47.0); Hemoglobin 7.9 g/dl (12.0-16.0); Mean Corpuscular HGB Conc 32.9 g/dl (31.0-35.0); Mean Corpuscular Hemoglobin 25.1 pg (27.0-33.0); Mean Corpuscular Volume 76.2 fL (80.0-98.0); NRBC Abs Auto 0.000 X10*3/uL (0.0-0.012); NRBC Pct Auto 0.0 /100WBC (0.0-0.2); Red Blood Count 3.15 X10*6/uL (4.20-5.50); White Blood Count 4.8 X10*3/uL (4.8-10.8)
[2025-08-05 11:04] LABS: Glucose, Whole Blood 259 mg/dL (60-115)
[2025-08-05 12:02] LABS: Platelet Count 29 X10*3/uL (160-400)
--- NOTE | 2025-08-05 12:28 | P.PNPL_ITS ---
Subjective Subjective Date of Service: 08/05/25 Principal diagnosis: Pneumonia, acute hypoxic respiratory failure, diastolic dysfunction. Interval history: Still continues with significant hypoxemia. Objective Data Labs 08/05/25 09:51 08/05/25 06:49 Labs: Laboratory Results - last 24 hr 08/02/25 08/04/25 08/04/25 10:23 14:19 15:56 WBC RBC Hgb Hct MCV MCH MCHC RDW Plt Count MPV Absolute Nucleated RBC Nucleated RBC % (auto) Sodium Potassium Chloride Carbon Dioxide Anion Gap BUN Creatinine Estim Creat Clear Calc Estimated GFR POC Glucose 173 H Random Glucose Calcium Magnesium NT-Pro-B Natriuret Pep Ur L.pneumophila Ag Not Detected Ur Strep pneumoniae Ag Not Detected Blood Type A Positive Antibody Screen NEGATIVE Crossmatch See Detail 08/04/25 08/05/25 08/05/25 20:03 06:49 06:52 WBC RBC Hgb Hct MCV MCH MCHC RDW Plt Count MPV Absolute Nucleated RBC Nucleated RBC % (auto) Sodium 145 Potassium 5.0 Chloride 112 H Carbon Dioxide 21 L Anion Gap 17 BUN 93 H Creatinine 1.74 H Estim Creat Clear Calc 29.9 Estimated GFR 28 POC Glucose 160 H 235 H Random Glucose 242 H Calcium 8.0 L Magnesium 2.6 NT-Pro-B Natriuret Pep 3118.6 H Ur L.pneumophila Ag Ur Strep pneumoniae Ag Blood Type Antibody Screen Crossmatch 08/05/25 08/05/25 09:51 10:59 WBC 4.8 RBC 3.15 L Hgb 7.9 L Hct 24.0 L MCV 76.2 L MCH 25.1 L MCHC 32.9 RDW 23.0 H Plt Count 29 L D MPV TNP Absolute Nucleated RBC 0.000 Nucleated RBC % (auto) 0.0 Sodium Potassium Chloride Carbon Dioxide Anion Gap BUN Creatinine Estim Creat Clear Calc Estimated GFR POC Glucose 259 H Random Glucose Calcium Magnesium NT-Pro-B Natriuret Pep Ur L.pneumophila Ag Ur Strep pneumoniae Ag Blood Type Antibody Screen Crossmatch Microbiology Microbiology Results: Microbiology 07/20/25 12:15 Blood - Venous Blood Culture - Final No growth after 5 days. 07/20/25 12:15 Blood - Venous Blood Culture - Final No growth after 5 days. Review of Systems Cardiovascular: Reports pedal edema, Reports dyspnea on exertion and Reports orthopnea Respiratory: Reports cough and Reports dyspnea on exertion Physical Exam 2 Vital Signs: Vital Signs: Last Vital Signs Temp 98.1 F 08/05/25 11:01 Pulse 76 08/05/25 11:01 Resp 20 08/05/25 11:25 BP 152/62 H 08/05/25 11:01 Pulse Ox 90 L 08/05/25 11:01 O2 Del Method High Flow Nasal C annula 08/05/25 11:01 O2 Flow Rate 55 08/05/25 11:01 FiO2 75 08/05/25 11:01 Oxygen Flow Rate 2 07/20/25 11:16 BMI result Body Mass Index 34.3 Const: General: no acute distress, alert and awake Eyes: Sclerae: sclerae normal EOM: EOMs intact bilaterally Neck: Neck: Yes no lymphadenopathy, Yes trachea midline and Yes supple Resp: Effort & Inspection: normal respiratory effort and no respiratory distress Auscultation: crackles (Diffuse bilateral) Cardio: Rate: regular rate Rhythm: regular rhythm Heart sounds: no gallops, no murmurs and no rubs GI: Palpation (GI): Soft to palpation and Other GI palpation findings present ( Nontender) Auscultation: normal bowel sounds Extrem: General: No clubbing, No cyanosis and Yes edema (1+ bilateral) Procedures Date of Service Date of Service: 08/05/25 Assessment and Plan Assessment and plan (1) Heart failure with preserved ejection fraction: Problem details: Echo 11/2023 EF>70 %, NO REGIONAL WALL MOTION ABNORMALITIES, NORMAL RIGHT VENTRICULAR SYSTOLIC FUNCTION, MILD Status: Acute (2) Hypoxia: Status: Acute (3) Pneumonia: Status: Resolved Plan Impression: 74-year-old lady hospitalized with acute hypoxic respiratory failure secondary to right basilar pneumonia with likely aspiration component. Cultures negative to date. Results of CT chest from 08/02/2025 reviewed, patent right basilar airways, no indication for bronchoscopy at this time. Chest x-ray from 07/27 with suspicion for possible right effusion development. Also, appears to have significant pulmonary edema component secondary to underlying diastolic dysfunction. Recommendations: Agree with current antibiotic regimen with empiric coverage of possible aspiration pneumonia. Consider additional diuresis. Consider repeating CT chest to evaluate for parapneumonic effusion development. Time Spent With Patient Time: Total time managing care of this patient today ____ minutes. Progress Note: Quality Stroke Does the patient have a stroke diagnosis?: No
--- NOTE | 2025-08-05 12:43 | PM.PNCARD ---
Subjective Subjective Date of Service: 08/05/25 Principal diagnosis: Pneumonia, acute hypoxic respiratory failure, diastolic dysfunction. Interval history: Seen and examined at bedside. Continues to have significant shortness of breath and wheezing. Creatinine worsening. Physical Exam Vital Signs: Last Vital Signs Temp 98.1 F 08/05/25 11:01 Pulse 76 08/05/25 11:01 Resp 20 08/05/25 11:25 BP 152/62 H 08/05/25 11:01 Pulse Ox 90 L 08/05/25 11:01 O2 Del Method High Flow Nasal Cannula 08/05/25 11:01 O2 Flow Rate 55 08/05/25 11:01 FiO2 75 08/05/25 11:01 Oxygen Flow Rate 2 07/20/25 11:16 BMI result Body Mass Index 34.3 GENERAL APPEARANCE: On high-flow oxygen. Short of breath. NECK: no carotid bruit, no significant jugular venous distention. SKIN: no suspicious lesions, warm and dry. HEART: Holosystolic murmur left sternal border, regular rate and rhythm. LUNGS: Bilateral expiratory wheezes and rhonchi. ABDOMEN: soft, nontender. EXTREMITIES: no edema. PERIPHERAL PULSES: equal. NEUROLOGIC: No gross deficits, AAO X 3 Objective Labs and Meds 08/05/25 09:51 08/05/25 06:49 Lab results: Laboratory Results - last 24 hr 08/02/25 08/04/25 08/04/25 10:23 14:19 15:56 WBC RBC Hgb Hct MCV MCH MCHC RDW Plt Count MPV Absolute Nucleated RBC Nucleated RBC % (auto) Sodium Potassium Chloride Carbon Dioxide Anion Gap BUN Creatinine Estim Creat Clear Calc Estimated GFR POC Glucose 173 H Random Glucose Calcium Magnesium NT-Pro-B Natriuret Pep Ur L.pneumophila Ag Not Detected Ur Strep pneumoniae Ag Not Detected Blood Type A Positive Antibody Screen NEGATIVE Crossmatch See Detail 08/04/25 08/05/25 08/05/25 20:03 06:49 06:52 WBC RBC Hgb Hct MCV MCH MCHC RDW Plt Count MPV Absolute Nucleated RBC Nucleated RBC % (auto) Sodium 145 Potassium 5.0 Chloride 112 H Carbon Dioxide 21 L Anion Gap 17 BUN 93 H Creatinine 1.74 H Estim Creat Clear Calc 29.9 Estimated GFR 28 POC Glucose 160 H 235 H Random Glucose 242 H Calcium 8.0 L Magnesium 2.6 NT-Pro-B Natriuret Pep 3118.6 H Ur L.pneumophila Ag Ur Strep pneumoniae Ag Blood Type Antibody Screen Crossmatch 08/05/25 08/05/25 09:51 10:59 WBC 4.8 RBC 3.15 L Hgb 7.9 L Hct 24.0 L MCV 76.2 L MCH 25.1 L MCHC 32.9 RDW 23.0 H Plt Count 29 L D MPV TNP Absolute Nucleated RBC 0.000 Nucleated RBC % (auto) 0.0 Sodium Potassium Chloride Carbon Dioxide Anion Gap BUN Creatinine Estim Creat Clear Calc Estimated GFR POC Glucose 259 H Random Glucose Calcium Magnesium NT-Pro-B Natriuret Pep Ur L.pneumophila Ag Ur Strep pneumoniae Ag Blood Type Antibody Screen Crossmatch Progress Note: A&P Assessment and plan (1) Hypertension: Status: Acute (2) Heart failure with preserved ejection fraction: Status: Acute (3) Acute kidney injury superimposed on CKD: Status: Acute Plan 74-year-old female with COPD exacerbation, pneumonia and congestive heart failure. She was diuresed and kidney function has been worsening. Overall does not appear to be significantly volume overloaded. I think she should get some fluids. Continue to hold diuretics on gave her 1 unit of blood. Respiratory status has not improved with any treatment. She has upper airway gurgling all the time and I worry that she is aspirating again and again which is leading to significant wheezing and respiratory issues. We will follow along with you. Time Spent With Patient Time: Total time managing care of this patient today ____ minutes. Progress Note: Quality Stroke Does the patient have a stroke diagnosis?: No Procedures Date of Service Date of Service: 08/05/25
[2025-08-05 12:47] LABS: Procalcitonin 1.06 ng/mL
--- NOTE | 2025-08-05 14:41 | P.PNIM_ITS ---
Subjective Subjective Date of Service: 08/05/25 Interval History: on high-flow NC 75% fiO2 felt better after transfusion but today feels more short of breath platelets fell to 29 Review of Systems Review of Systems: Yes all other systems are reviewed and are negative Physical Exam 2 Vital Signs: Vital Signs: Last Vital Signs Temp 98.1 F 08/05/25 11:01 Pulse 76 08/05/25 11:01 Resp 20 08/05/25 11:25 BP 152/62 H 08/05/25 14:23 Pulse Ox 90 L 08/05/25 11:01 O2 Del Method High Flow Nasal C annula 08/05/25 11:01 O2 Flow Rate 55 08/05/25 11:01 FiO2 75 08/05/25 11:01 Oxygen Flow Rate 2 07/20/25 11:16 BMI result Body Mass Index 34.3 Gen: ill-appering, short of breath HEENT: sclera anicteric, moist mucus membranes Neck: supple, JVD present Lungs: bilateral inspiratory crackles, diminished air entry R side Heart: regular rate and rhythm, no murmurs Abd: soft, non-tender, non-distended Ext: trace bilateral leg edema Skin: warm/well-perfused Neuro: alert and oriented x3, no focal findings Psych: appropriate affect Objective Data Active Medications Acetaminophen (Acetaminophen 325 Mg Tablet) 650 mg PO Q6H PRN PRN Reason: Pain, Mild 1-3,fever,headache Last Admin: 07/30/25 04:12 Dose: 650 mg Documented By: BECK Albuterol Sulfate (Albuterol Sulfate (0.083%) 2.5 Mg/3 Ml Vial.Neb) 2.5 mg INHALE Q2H PRN PRN Reason: Shortness of Breath/Wheezing Amlodipine Besylate (Amlodipine Besylate 10 Mg Tablet) 10 mg PO DAILY [facility]; Protocol Last Admin: 08/05/25 07:46 Dose: 10 mg Documented By: GILSON Apixaban (Apixaban 5 Mg Tablet) 5 mg PO BID [facility] Last Admin: 08/05/25 07:47 Dose: 5 mg Documented By: GILSON Atorvastatin Calcium (Atorvastatin Calcium 80 Mg Tablet) 80 mg PO BEDTIME [facility] Last Admin: 08/04/25 20:37 Dose: 80 mg Documented By: BUSSIEL Benzocaine (Throat Lozenge, Medicated Lozenge) 1 lozenge MUCOUS MEM Q2H PRN PRN Reason: Sore Throat Last Admin: 07/28/25 21:10 Dose: 1 lozenge Documented By: JESUS Buspirone HCl (Buspirone Hcl 10 Mg Tablet) 10 mg PO BID [facility] Last Admin: 08/05/25 07:47 Dose: 10 mg Documented By: GILSON Calcium Carbonate (Calcium Carbonate 750 Mg Tab.Chew) 750 mg PO Q4H PRN PRN Reason: Heartburn Carvedilol (Carvedilol 12.5 Mg Tablet) 12.5 mg PO BID [facility]; Protocol Last Admin: 08/05/25 07:46 Dose: 12.5 mg Documented By: GILSON Dextrose (Dextrose 50 % 25 Gm/50 Ml Syringe) 25 gm IVPUSH Q15M PRN; Protocol PRN Reason: per Hypoglycemia Standing Ord. Diltiazem HCl (Diltiazem Hcl Cd 300 Mg Cap.Er.24h) 300 mg PO DAILY [facility]; Protocol Last Admin: 08/05/25 07:47 Dose: 300 mg Documented By: GILSON Docusate Sodium (Docusate Sodium 100 Mg Capsule) 100 mg PO BID PRN PRN Reason: Constipation Last Admin: 07/27/25 20:56 Dose: 100 mg Documented By: JESUS Escitalopram Oxalate (Escitalopram Oxalate 10 Mg Tablet) 15 mg PO DAILY [facility] Last Admin: 08/05/25 07:46 Dose: 15 mg Documented By: GILSON Famotidine (Famotidine 20 Mg Tablet) 20 mg PO DAILY PRN PRN Reason: GERD/Acid Reflux Ferrous Sulfate (Ferrous Sulfate 324 Mg Tablet.Dr) 324 mg PO TID [facility] Last Admin: 08/05/25 14:23 Dose: 324 mg Documented By: GILSON Glucose (Glucose Gel 15 Gm Gel..Gram.) 15 gm PO Q15M PRN; Protocol PRN Reason: per Hypoglycemia Standing Ord. Guaifenesin (Guaifenesin 200 Mg/10 Ml 10 Ml Liquid) 10 ml PO Q4H PRN PRN Reason: Cough Last Admin: 07/31/25 20:13 Dose: 10 ml Documented By: EDDI Hydralazine HCl (Hydralazine Hcl 25 Mg Tablet) 25 mg PO TID [facility]; Protocol Last Admin: 08/05/25 14:23 Dose: 25 mg Documented By: GILSON Levofloxacin (Levaquin) 750 mg in 150 mls @ 100 mls/hr IV Q48H LOU Metronidazole (Flagyl) 500 mg in 100 mls @ 100 mls/hr IV Q8H [facility] Insulin Glargine (Insulin Glargine,Hum.Rec.Anlog 100 Unit/Ml 10 Ml Vial) 28 unit SUBCUT BEDTIME [facility] Insulin Human Lispro (Insulin Lispro 100 Unit/Ml 3 Ml Vial) 0 unit SUBCUT QIDACHS [facility]; Protocol Last Admin: 08/05/25 12:37 Dose: 6 unit Documented By: GILSON Loratadine (Loratadine 10 Mg Tablet) 10 mg PO DAILY [facility] Last Admin: 08/05/25 07:46 Dose: 10 mg Documented By: GILSON Magnesium Hydroxide (Milk Of Magnesia 30 Ml Oral.Susp) 30 ml PO DAILY PRN PRN Reason: Constipation Last Admin: 07/22/25 09:15 Dose: 30 ml Documented By: GILSON Meclizine HCl (Meclizine Hcl 12.5 Mg Tablet) 12.5 mg PO TID PRN PRN Reason: dizziness Melatonin (Melatonin 3 Mg Tablet) 6 mg PO BEDTIME PRN PRN Reason: Insomnia Methylprednisolone Sodium Succinate (Methylprednisolone Sod Succ 125 Mg/2 Ml Vial) 60 mg IVPUSH Q6H [facility] Last Admin: 08/05/25 12:38 Dose: 60 mg Documented By: GILSON Montelukast Sodium (Montelukast Sodium 10 Mg Tablet) 10 mg PO BEDTIME [facility] Last Admin: 08/04/25 20:37 Dose: 10 mg Documented By: HEATHER Nitroglycerin (Nitroglycerin 0.4 Mg Tab.Subl) 0.4 mg SUBLINGUAL Q5M PRN PRN Reason: chest pain Ondansetron HCl (Ondansetron Hcl 4 Mg/2 Ml Vial) 4 mg IVPUSH Q4H PRN PRN Reason: Nausea and Vomiting Last Admin: 08/05/25 01:01 Dose: 4 mg Documented By: HEATHER Pantoprazole Sodium (Pantoprazole Sodium 20 Mg Tablet.) 40 mg PO BID@0630,1630 [facility] Last Admin: 08/05/25 06:11 Dose: 40 mg Documented By: HEATHER Polyethylene Glycol (Polyethylene Glycol 3350 17 Gm Powd.Pack) 17 gm PO BID PRN PRN Reason: Constipation Potassium Chloride (Potassium Chloride Er 20 Meq Tab.Er.Prt) 40 meq PO BID [facility] Last Admin: 08/05/25 07:46 Dose: 40 meq Documented By: GILSON Sodium Chloride (0.9 % Sodium Chloride Flush 3 Ml Syringe) 3 ml IVFLUSH QSHIFT [facility] Last Admin: 08/05/25 07:47 Dose: 3 ml Documented By: GILSON Vitamin D (Cholecalciferol (Vitamin D3) 25 Mcg Tablet) 25 mcg PO DAILY [facility] Last Admin: 08/05/25 07:46 Dose: 25 mcg Documented By: GILSON Labs 08/05/25 09:51 08/05/25 06:49 Labs: Laboratory Results - last 24 hr 08/02/25 08/04/25 08/04/25 10:23 14:19 15:56 MCV MCH MCHC RDW Plt Count MPV Absolute Nucleated RBC Nucleated RBC % (auto) Anion Gap Estim Creat Clear Calc Estimated GFR POC Glucose 173 H Random Glucose Calcium Magnesium NT-Pro-B Natriuret Pep Procalcitonin Ur L.pneumophila Ag Not Detected Ur Strep pneumoniae Ag Not Detected Blood Type A Positive Antibody Screen NEGATIVE Crossmatch See Detail 08/04/25 08/05/25 08/05/25 20:03 06:49 06:52 MCV MCH MCHC RDW Plt Count MPV Absolute Nucleated RBC Nucleated RBC % (auto) Anion Gap 17 Estim Creat Clear Calc 29.9 Estimated GFR 28 POC Glucose 160 H 235 H Random Glucose 242 H Calcium 8.0 L Magnesium 2.6 NT-Pro-B Natriuret Pep 3118.6 H Procalcitonin 1.06 Ur L.pneumophila Ag Ur Strep pneumoniae Ag Blood Type Antibody Screen Crossmatch 08/05/25 08/05/25 09:51 10:59 MCV 76.2 L MCH 25.1 L MCHC 32.9 RDW 23.0 H Plt Count 29 L D MPV TNP Absolute Nucleated RBC 0.000 Nucleated RBC % (auto) 0.0 Anion Gap Estim Creat Clear Calc Estimated GFR POC Glucose 259 H Random Glucose Calcium Magnesium NT-Pro-B Natriuret Pep Procalcitonin Ur L.pneumophila Ag Ur Strep pneumoniae Ag Blood Type Antibody Screen Crossmatch Assessment and Plan (1) Aspiration pneumonia: Status: Acute (2) Asthma with COPD: Status: Acute Plan d16, 74yo F with COPD/asthma, ALYSIA, CAD s/p PCI, HFpEF, DM2, pAF, JEAN, stage I lung CA s/p lobectomy in 2009, tracheal stenosis s/p tracheoplasty presenting with worsening dyspnea, admitted for hypoxic respiratory failure that has progressed acute hypoxic respiratory failure due to COPD and pneumonia and acute-chronic HFpEF - continue IV Solumedrol 60mg IV q6h [dose increased 07/30], standing/scheduled nebs - changed piperacillin-tazobactam 07/30-08/02 to ampicillin-sulbactam 08/02 due to thrombocytopenia; will change to levofloxacin + metronidazole 08/05- - MRSA neg; d/c'ed vancomycin 07/30-08/02 - BCx neg; urinary antigens for Legionella and pneumococcus both negative - PCT increased; antibiotics changed as above; 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 There is moderately increased left ventricular wall thickness. The left ventricular systolic function is hyperdynamic. The visually estimated ejection fraction is >70%. - There is severe septal asymmetric hypertrophy. - Elevated filling pressures. - Normal right ventricular cavity size and systolic function. - There is moderate aortic valve stenosis.' - continue HFNC. Consult Pulmonology and will repeat CT of chest thrombocytopenia: suspect drug effect; d/c'ed piperacillin-tazobactam and now will d/c ampicillin-sulbactam; consult Heme-Onc anemia: will transfuse another 1u pRBCs today [got 1 unit 08/04] and recheck CBC AG: suspect due to diuresis; hold diuresis and give blood as above; recheck BMP tomorrow hyperNa: resolved hypoK: repleted HTN: amlodipine, hydralazine, carvedilol; d/c diltiazem pAF: carvedilol; apixaban hx of PE: apixaban CAD: atorvastatin DM2: otilio-dose lispro VTE ppx: apixaban dispo: STR In my clinical judgment, the patient requires continued inpatient hospitalization for the following reasons: IV ABX, hypoxic respiratory failure Total time managing care of this patient today: 60 minutes. Quality Stroke Does the patient have a stroke diagnosis?: No VTE Prior VTE?: No VTE Risk Level:: Medical - moderate - high VTE Device Contraindication: N/A - Device Ordered VTE Drug Contraindication: N/A - Med Ordered
[2025-08-05] MEDS: metroNIDAZOLE/NS 500 MG/100 ML PIGGYBACK 100 MG IV ×2 (14:58→22:47)
[2025-08-05] MEDS: Albuterol/Iprat 2.5/0.5MG 3 ML AMPUL.NEB INHALE ×2 (15:24→20:04)
[2025-08-05 16:31] LABS: Glucose, Whole Blood 199 mg/dL (60-115)
--- NOTE | 2025-08-05 17:47 | PM.HEMONCCN ---
Subjective - Subjective Chief complaint: Consult for: Thrombocytopenia. Patient: new to practice Consult date: 08/05/25 Requesting Physician: GREGG. Primary Care Provider: Garland Vázquez MD Family Provider: Garland Vázquez MD Medical Summary: DIAGNOSIS: THROMBOCYTOPENIA. 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 Narrative: Saima Restrepo is a 74 year old lady, admitted on 07/21 for COPD exacerbation. She had recent rhino/enterovirus infection(last admission and discharged 2 days back), and history of multiple pulmonary emboli on Eliquis: She came to the hospital because breathing worsened last night and again on 07/21,it woke her from sleep, she has also been wheezing. Denies any chest pain or nausea vomiting or abdominal pain currently, no fever or chills. She had been compliant with all home medications, including Eliquis. She was initially treated for COPD exacerbation, CHF. More recently concern is aspiration pneumonia. She was on Zosyn. Antibiotic has been switched to levofloxacin and Flagyl. The Lasix has been stopped. Lab imaging reviewed: Leukocytosis almost similar range bun/Creatinine is 59/1.53 Lactic acid of 4 Troponin flat BNP 1190 cxr:Chronic interstitial lung disease with likely mild interstitial lung edema and small to moderate volume left-sided pleural effusion. chest CT:Concerning aspiration multifocal pneumonia with reactive mediastinal lymphadenopathy. Postsurgical changes, left lung.Coronary artery disease and atherosclerosis disease. Probable mitral valve insufficiency.Diverticular disease, transverse colon. Here she received doxycycline, ceftriaxone, IV Solu-Medrol, nebs, IV Lasix. PMH: Asthma, COPD, Peripheral artery disease lower extremity claudication. Coronary artery disease, heart failure with preserved ejection fraction, (s/p cardiac catheterization), Diabetes mellitus with diabetic neuropathy, GERD, Anxiety, depression, FAMILY HISTORY: Father with diabetes and heart disease. A sister had a cancer of the nose. 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 She is . She has 3 children. New line she quit smoking 40 years ago. Denies alcohol. ROS: She has been feeling really fatigued. She denies fever chills no night sweats. She does not have an appetite. She has lost weight. Denies headache. She has had dizziness. She has had chest pain and difficulty breathing. She is now on a high-flow oxygen today. Sats are 88-89. She has had a productive cough. She denies any abdominal pain nausea vomiting heartburn indigestion. Bowels are working without any gross blood in it. She denies dysuria or hematuria. Denies any joint pain or muscle pain. She is weak all over. Denies focal weakness. She is depressed because of her current situation. She has easy bruising. Review of Systems - Constitutional Reports system reviewed and no additional complaints, except as documented, Reports fatigue, Reports lack of energy, Reports malaise, Reports weight loss, Denies fever(s) - Eyes Reports system reviewed and no additional complaints, except as documented - ENT Reports system reviewed and no additional complaints, except as documented, Reports dizziness - Cardiovascular Reports system reviewed and no additional complaints, except as documented, Reports chest pain, Reports lightheadedness, Reports shortness of breath with activity, Reports shortness of breath when lying down - Respiratory Reports no additional respiratory complaints, Reports chest congestion, Reports cough - Gastrointestinal Reports system reviewed and no additional complaints, except as documented - Genitourinary Reports no additional female genitourinary complaints - Musculoskeletal Reports system reviewed and no additional complaints, except as documented - Integumentary/Breasts Skin/Breast: Reports no additional skin complaints - Neurologic Reports system reviewed and no additional complaints, except as documented - Psychiatric Reports system reviewed and no additional complaints, except as documented - Endocrine Reports no additional endocrine complaints - Hematologic/Lymphatic Reports system reviewed and no additional complaints, except as documented - Allergic/Immunologic Reports system reviewed and no additional complaints, except as documented Oncology Screenings - ECOG Performance Status ECOG Performance Status: 2 [facility] Medical History: Medical History (Last Updated 08/07/25 @ 11:34 by Ayan Leblanc MD) Abnormal stress test AG (acute kidney injury) Anemia Asthma exacerbation in COPD Asthma with COPD CAD (coronary artery disease) CKD stage 3 due to type 2 diabetes mellitus Claudication of both lower extremities 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 2 diabetes mellitus COPD (chronic obstructive pulmonary disease) Diabetic neuropathy DM type 2 (diabetes mellitus, type 2) Dyslipidemia GERD (gastroesophageal reflux disease) History of pulmonary embolism Hypertension skilled nursing (current) use of insulin skilled nursing current use of anticoagulant Lung infiltrate Non-ST elevation CT (NSTEMI) Obesity Obstructive sleep apnea PAD (peripheral artery disease) Paroxysmal atrial fibrillation Patellofemoral arthritis of right knee Pulmonary embolism Pulmonary nodule Respiratory failure Right knee pain Tracheomalacia, acquired Vitamin D deficiency Functional capacity: bed bound Patient : No Family History: Family History (Last Reviewed 08/06/25 @ 14:33 by Twyla Arauz MD) Mother No problems noted. Father No problems noted. Brother Substance use disorder Brother Substance use disorder Surgical History: Surgical History (Last Reviewed 08/06/25 @ 14:33 by Twyla Arauz MD) History of cardiac cath History of carpal tunnel surgery History of cholecystectomy History of lobectomy of lung Status post tracheoplasty Social History: Social History (Last Reviewed 08/06/25 @ 14:32 by Twyla Arauz MD) Living Situation History: Household Members: Family Household Members Other:: 2 Housing: House Do you presently have visiting nurse or other home services: No Tobacco History: Patient Tobacco Use Status: Former Tobacco user Tobacco use type: Cigarette Years Smoked: 3 stopped 1992 e-Cigarette/Vaping Use: Never Used Second Hand Smoke Exposure: Yes Advance Directives: Advance Directives Date on File: 06/29/23 Occupation Assessmet: service: No Current occupational status: retired Home Medications and Allergies Current Medications: Current Medications Acetaminophen (Acetaminophen 325 Mg Tablet) 650 mg PO Q6H PRN PRN Reason: Pain, Mild 1-3,fever,headache Last Admin: 07/30/25 04:12 Dose: 650 mg Albuterol Sulfate (Albuterol Sulfate (0.083%) 2.5 Mg/3 Ml Vial.Neb) 2.5 mg INHALE Q2H PRN PRN Reason: Shortness of Breath/Wheezing Albuterol/Ipratropium (Albuterol/Iprat 2.5/0.5mg 3 Ml Ampul.Neb) 3 ml INHALE RQ4H WHILE AWAKE [facility] Last Admin: 08/05/25 15:24 Dose: 3 ml Amlodipine Besylate (Amlodipine Besylate 10 Mg Tablet) 10 mg PO DAILY [facility]; Protocol Last Admin: 08/05/25 07:46 Dose: 10 mg Apixaban (Apixaban 5 Mg Tablet) 5 mg PO BID [facility] Last Admin: 08/05/25 07:47 Dose: 5 mg Atorvastatin Calcium (Atorvastatin Calcium 80 Mg Tablet) 80 mg PO BEDTIME [facility] Last Admin: 08/04/25 20:37 Dose: 80 mg Benzocaine (Throat Lozenge, Medicated Lozenge) 1 lozenge MUCOUS MEM Q2H PRN PRN Reason: Sore Throat Last Admin: 07/28/25 21:10 Dose: 1 lozenge Buspirone HCl (Buspirone Hcl 10 Mg Tablet) 10 mg PO BID [facility] Last Admin: 08/05/25 07:47 Dose: 10 mg Calcium Carbonate (Calcium Carbonate 750 Mg Tab.Chew) 750 mg PO Q4H PRN PRN Reason: Heartburn Carvedilol (Carvedilol 12.5 Mg Tablet) 12.5 mg PO BID [facility]; Protocol Last Admin: 08/05/25 07:46 Dose: 12.5 mg Dextrose (Dextrose 50 % 25 Gm/50 Ml Syringe) 25 gm IVPUSH Q15M PRN; Protocol PRN Reason: per Hypoglycemia Standing Ord. Docusate Sodium (Docusate Sodium 100 Mg Capsule) 100 mg PO BID PRN PRN Reason: Constipation Last Admin: 07/27/25 20:56 Dose: 100 mg Escitalopram Oxalate (Escitalopram Oxalate 10 Mg Tablet) 15 mg PO DAILY [facility] Last Admin: 08/05/25 07:46 Dose: 15 mg Famotidine (Famotidine 20 Mg Tablet) 20 mg PO DAILY PRN PRN Reason: GERD/Acid Reflux Ferrous Sulfate (Ferrous Sulfate 324 Mg Tablet.Dr) 324 mg PO TID [facility] Last Admin: 08/05/25 14:23 Dose: 324 mg Glucose (Glucose Gel 15 Gm Gel..Gram.) 15 gm PO Q15M PRN; Protocol PRN Reason: per Hypoglycemia Standing Ord. Guaifenesin (Guaifenesin 200 Mg/10 Ml 10 Ml Liquid) 10 ml PO Q4H PRN PRN Reason: Cough Last Admin: 07/31/25 20:13 Dose: 10 ml Hydralazine HCl (Hydralazine Hcl 25 Mg Tablet) 25 mg PO TID [facility]; Protocol Last Admin: 08/05/25 14:23 Dose: 25 mg Levofloxacin (Levaquin) 750 mg in 150 mls @ 100 mls/hr IV Q48H [facility] Last Infusion: 08/05/25 16:25 Dose: 100 mls/hr Metronidazole (Flagyl) 500 mg in 100 mls @ 100 mls/hr IV Q8H [facility] Last Infusion: 08/05/25 16:25 Dose: Infused Insulin Glargine (Insulin Glargine,Hum.Rec.Anlog 100 Unit/Ml 10 Ml Vial) 28 unit SUBCUT BEDTIME [facility] Insulin Human Lispro (Insulin Lispro 100 Unit/Ml 3 Ml Vial) 0 unit SUBCUT QIDACHS [facility]; Protocol Last Admin: 08/05/25 16:51 Dose: 4 unit Loratadine (Loratadine 10 Mg Tablet) 10 mg PO DAILY [facility] Last Admin: 08/05/25 07:46 Dose: 10 mg Magnesium Hydroxide (Milk Of Magnesia 30 Ml Oral.Susp) 30 ml PO DAILY PRN PRN Reason: Constipation Last Admin: 07/22/25 09:15 Dose: 30 ml Meclizine HCl (Meclizine Hcl 12.5 Mg Tablet) 12.5 mg PO TID PRN PRN Reason: dizziness Melatonin (Melatonin 3 Mg Tablet) 6 mg PO BEDTIME PRN PRN Reason: Insomnia Methylprednisolone Sodium Succinate (Methylprednisolone Sod Succ 125 Mg/2 Ml Vial) 60 mg IVPUSH Q6H [facility] Last Admin: 08/05/25 16:51 Dose: 60 mg Montelukast Sodium (Montelukast Sodium 10 Mg Tablet) 10 mg PO BEDTIME [facility] Last Admin: 08/04/25 20:37 Dose: 10 mg Nitroglycerin (Nitroglycerin 0.4 Mg Tab.Subl) 0.4 mg SUBLINGUAL Q5M PRN PRN Reason: chest pain Ondansetron HCl (Ondansetron Hcl 4 Mg/2 Ml Vial) 4 mg IVPUSH Q4H PRN PRN Reason: Nausea and Vomiting Last Admin: 08/05/25 01:01 Dose: 4 mg Pantoprazole Sodium (Pantoprazole Sodium 20 Mg Tablet.Dr) 40 mg PO BID@0630,1630 [facility] Last Admin: 08/05/25 16:51 Dose: 40 mg Polyethylene Glycol (Polyethylene Glycol 3350 17 Gm Powd.Pack) 17 gm PO BID PRN PRN Reason: Constipation Potassium Chloride (Potassium Chloride Er 20 Meq Tab.Er.Prt) 40 meq PO BID [facility] Last Admin: 08/05/25 07:46 Dose: 40 meq Sodium Chloride (0.9 % Sodium Chloride Flush 3 Ml Syringe) 3 ml IVFLUSH QSHIFT [facility] Last Admin: 08/05/25 14:58 Dose: 3 ml Vitamin D (Cholecalciferol (Vitamin D3) 25 Mcg Tablet) 25 mcg PO DAILY [facility] Last Admin: 08/05/25 07:46 Dose: 25 mcg Home Medications ?Medication ?Instructions ?Recorded ?Confirmed ?Type cholecalciferol (vitamin D3) 25 25 mcg PO DAILY 08/11/23 07/20/25 History mcg (1,000 unit) tablet albuterol sulfate 90 mcg/actuation 2 puff inhalation QID PRN 05/17/24 07/20/25 History aerosol inhaler SOB/wheezing budesonide-formoterol HFA 160 2 puff inhalation BID PRN SOB 05/17/24 07/20/25 History mcg-4.5 mcg/actuation aerosol inhaler (Symbicort) diltiazem HCl 300 mg 300 mg PO DAILY 07/16/25 07/20/25 History capsule,extended release 24 hr (Cartia XT) famotidine 20 mg tablet 20 mg PO DAILY PRN GERD/Acid Reflux 07/16/25 07/20/25 History insulin lispro 100 unit/mL 1 sliding scale dose subcut TIDAC 07/16/25 07/20/25 History subcutaneous pen (Humalog KwikPen (U-100) Insulin) pantoprazole 40 mg tablet,delayed 40 mg PO DAILY@0630 07/16/25 07/20/25 History release semaglutide 2 mg/dose (8 mg/3 mL) 2 mg subcut [facility] 07/16/25 07/20/25 History subcutaneous pen injector (Ozempic) Allergies Allergy/AdvReac Type Severity Reaction Status Date / Time Latex, Natural Rubber Allergy Severe blisters Verified 07/20/25 11:18 Sulfa (Sulfonamide Allergy Mild ITCHING, Verified 07/20/25 11:18 Antibiotics) (SULFA rash (SULFONAMIDE ANTIBIOTICS)) nystatin Allergy Unknown rash Verified 07/20/25 11:18 isosorbide (From Imdur) AdvReac Unknown HEADACHES, Verified 07/20/25 11:18 headache tizanidine AdvReac Unknown weakness, Verified 07/20/25 11:18 Hellucination Physical Exam Vital signs: Vital Signs Temp 97.5 F 08/05/25 17:37 Pulse 81 08/05/25 17:37 Resp 16 08/05/25 17:37 BP 160/65 H 08/05/25 17:37 Pulse Ox 87 L 08/05/25 15:35 O2 Del Method High Flow Nasal Cannula 08/05/25 15:35 O2 Flow Rate 55 08/05/25 15:35 FiO2 80 08/05/25 15:35 Intake & Output 08/04/25 08/05/25 08/05/25 18:59 06:59 18:59 Intake Total 706.625 / 9582.197 1760 / 1975.625 778.333 / 778.333 Output Total 400 / 1001 601 / 1001 300 / 300 Balance 306.625 / 975.625 669 / 975.625 478.333 / 478.333 Urine Output (Average ml/kg/hr) 0.37 0.55 0.28 Intake: Intake, Oral Amount 500 / 1220 720 / 1220 500 / 500 Intake (Blood Product) Amount 0 / 350 350 / 350 0 / 0 Red Blood Cells (E0336) Unit 0 / 0 [id number] Red Blood Cells (E0336) Unit 0 / 350 350 / 350 [id number] Intake, IV Amount 206.625 / 406.625 200 / 406.625 278.333 / 278.333 Ampicillin Sodium/Sulbactam Na 200 / 400 200 / 400 170 / 170 3 gm In 0.9 % Sodium Chloride 100 ml @ 200 mls/hr IV Q6H [facility] Rx#:[id number] levoFLOXacin/D5W 750 mg In 150 8.333 / 8.333 ml @ 100 mls/hr IV Q48H [facility] Rx# :[id number] metroNIDAZOLE/NS 500 mg In 100 100 / 100 ml @ 100 mls/hr IV Q8H [facility] Rx#: [id number] Furosemide 200 mg In 0.9 % 6.625 / 6.625 Sodium Chloride 80 ml @ 5 MG/HR 2.5 mls/hr IVCONT .Q24H [facility] Rx #:[id number] Output: Output, Urine Amount 400 / 401 1 / 401 300 / 300 Output, Urine Amount (Catheter) 600 / 600 Female External 600 / 600 Other: Breakfast % Eaten 25% 25% Lunch % Eaten 0% 0% Eating (Feeding) Ability Independent Independent Number of Incontinent Voids 1 Number of Bowel Movements 1 1 Urine purewick PureWick purewick Urine Color Concentrated Yellow Concentrated Last Bowel Movement 08/04/25 08/04/25 08/05/25 Stool Incontinent Incontinent Stool Amount Moderate Large Stool Color Dark Brown Brown Stool Consistency Soft Soft Weight 90.6 kg - Constitutional Present: mild distress - Routine HEENT Exam Head: Present: normocephalic, tenderness of temporal artery Eye: Present: normal appearance ENT: Present: mucous membranes moist - Routine Neck Exam Present: supple - Routine Respiratory Exam Present: decreased breath sounds, rales - Routine Cardiovascular Exam Cardiovascular: Present: RRR, S1, S2 - Routine Abdominal Exam Present: nontender - Routine Extremities Exam Present: nontender - Routine Skin Exam Present: intact - Routine Neurological Exam Present: alert, oriented X3 Hem/Onc Consult Result - Labs CBC & Chem 7: 08/08/25 04:00 08/08/25 04:00 Labs: Short CBC 08/05/25 Range/Units 09:51 WBC 4.8 (4.8-10.8) X10*3/uL Hgb 7.9 L (12.0-16.0) g/dl Hct 24.0 L (37.0-47.0) % Plt Count 29 L D (160-400) X10*3/uL BMP 08/05/25 06:49 Sodium 145 Potassium 5.0 Chloride 112 H Carbon Dioxide 21 L BUN 93 H Creatinine 1.74 H Calcium 8.0 L Assessment and Plan Patient Active problem list reviewed?: Yes (1) Thrombocytopenia Status: Acute Assessment and plan: This is a pleasant 74-year-old lady who was admitted here on 07/21 with fatigue, shortness of breath on exertion and rest. Chest pain and lower extremity edema. She was initially treated for COPD exacerbation and CHF. She was then treated for aspiration pneumonia. She had been on Zosyn. The antibiotics has recently been switched over to Levaquin and Flagyl. She is now requiring high-flow oxygen. Even with that, her O2 sats are running around 89%. Database: CBC: WBC 4.8, HGB 7.9, HCT 24, MCV 86, PLT 29. Lactic acid: 4. Pro BNP: 3118.6. 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 LFTs: 1.1/95/47/67. Scan of the chest from today revealed: 1. Worsening bilateral pulmonary consolidations and nodular opacities, most prominent in the right lower lobe. 2. Trace right pleural effusion. Respiratory panel: Was positive for entero/rhinovirus back on 07/18. Rest of the viral studies have come back negative including COVID. She is now becoming more anemic and thrombocytopenic. Her hemoglobin has dropped down to 7.4. She has required 2 units of blood. Serial platelet counts: 07/30: 162. 08/01:93, 08/02:83. 08/03:56. 08/04:56. 7/: 29. The drop in platelet count appears to be acute, during this admission. 1. Most likely related to her recent infection. 2. Differential diagnosis also includes: Related to medication, especially Zosyn. That has now been stopped. 3. DIC: Related to infection. PLAN: Agree with switching the antibiotic regimen. Can stop famotidine since she is also on the Protonix. Will hold off on Eliquis since her platelet count is less than 30, and they would be increased bleeding risk. Check coags and DIC screen. PT 20, INR 1.7, PTT 32.7, FIBRINOGEN 625, D-DIMER 510. Check LDH: 730. Will continue to monitor her platelet count over time. If it drops to 10 or below she will need platelet transfusion. Thank you for the consultation, Will follow along with you, CC: Garland Vázquez MD . - Time Spent With Patient Time Spent with Patient (in minutes): 30
--- NOTE | 2025-08-05 18:58 | ECG_ITS ---
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 Rate : 79 BPM Atrial Rate : 79 BPM P-R Int : 146 ms QRS Dur : 82 ms QT Int : 376 ms P-R-T Axes : -10 26 85 degrees QTcB Int : 431 ms Normal sinus rhythm Nonspecific T wave abnormality Abnormal ECG When compared with ECG of 20-Jul-2025 11:52, No significant change was found Referred By: Kirsty Noel Electronically Signed By: SCOTTIE MONROY
[2025-08-05 19:10] LABS: ABG HCO3 29 mmol/L (22-26); ABG O2 % Saturation 96.0 %
[2025-08-05 19:13] LABS: Glucose, Whole Blood 196 mg/dL (60-115)
--- NOTE | 2025-08-05 19:22 | P.EN_ITS ---
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 While every effort has been made to ensure accuracy, cryptographic clerk errors may have been included. Time Spent With Patient Time: Total time managing care of this patient today ____ minutes.
[2025-08-05 19:31] LABS: Glucose, Whole Blood 172 mg/dL (60-115)
--- NOTE | 2025-08-05 19:46 | W.PM.CCCN ---
History of Present Illness Data of Consult Service Date: 08/05/25 Requesting physician: Kirsty Noel Primary Care Provider: Garland Vázquez MD [facility] Reason for consult: Dyspnea 74-year-old female history of COPD, ALYSIA, obesity, coronary artery disease s/p stent, diastolic congestive heart failure, diabetes mellitus, paroxysmal atrial fibrillation (on Eliquis), lung CA s/p lobectomy in 2009, tracheal stenosis s/p tracheoplasty who presented to emergency department on 07/20/25 with worsening dyspnea admitted to hospital Medicine for hypoxic respiratory failure secondary to bibasilar pneumonia likely aspiration component. Cultures negative to date. Abx coverage since admission piperacillin-tazobactam 07/30-08/02 to ampicillin-sulbactam 08/02 due to thrombocytopenia; and finally today levofloxacin + metronidazole 08/05. MRSA neg; d/c'ed vancomycin 07/30-08/02 In the last 48 hours, patient continued to complain of worsening shortness of breath. ?She was placed on Lasix drip yesterday. Cardiology was consulted today, who recommended she to stop IV Lasix. ?Respiratory also consulted today who recommended repeat chest CT. Tonight, rapid response was called due to worsening hypoxia and increased work of breathing. ?Patient was severely tachypneic, hypoxic to low 80s, require frequent deep nasal suctioning with improvement of hypoxia. Chest CT from earlier reviewed, with worsening right pneumonia noted. Attempted to use high-flow nasal cannula but patient was not able to tolerated, venous gas was appropriate.? Will use BiPAP support due to work of breathing. Patient will be transferred to ICU for acute management of hypoxic respiratory failure secondary to frequent aspiration Review of Systems Review of Systems: per HPI [facility] Past Medical History Medical History (Updated 08/05/25 @ 23:06 by Nichol Wen NP) Asthma exacerbation in COPD Pulmonary nodule PAD (peripheral artery disease) COPD (chronic obstructive pulmonary disease) GERD (gastroesophageal reflux disease) Diabetic neuropathy Claudication of both lower extremities 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 2 diabetes mellitus continuous churn buttermaker (current) use of insulin Vitamin D deficiency DM type 2 (diabetes mellitus, type 2) CAD (coronary artery disease) Non-ST elevation [place] (NSTEMI) Patellofemoral arthritis of right knee Right knee pain continuous churn buttermaker current use of 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 Father No problems noted. Brother Substance use disorder Brother Substance use disorder Surgical History Surgical History (Updated 08/05/25 @ 18:15 by Jeffry Mclaughlin MD) History of carpal tunnel surgery History of cholecystectomy History of lobectomy of lung Status post tracheoplasty History of cardiac cath Social History Social History Household Members: Family Household Members Other:: 2 Housing: House Do you presently have visiting nurse or other home services: No Alcohol intake: current Alcohol intake frequency: holidays/special occasions only Alcohol type: wine Comment: weddings Patient Tobacco Use Status: Former Tobacco user Tobacco use type: Cigarette Years Smoked: 3 stopped 1992 e-Cigarette/Vaping Use: Never Used Second Hand Smoke Exposure: Yes Advance Directives Date on File: 06/29/23 service: No Current occupational status: retired Cognitive needs: No Hearing needs: No Vision needs: No Meds Allergies Allergy/AdvReac Type Severity Reaction Status Date / Time Latex, Natural Rubber Allergy Severe blisters Verified 07/20/25 11:18 Sulfa (Sulfonamide Allergy Mild ITCHING, Verified 07/20/25 11:18 Antibiotics) (SULFA rash (SULFONAMIDE ANTIBIOTICS)) nystatin Allergy Unknown rash Verified 07/20/25 11:18 isosorbide (From Imdur) AdvReac Unknown HEADACHES, Verified 07/20/25 11:18 headache tizanidine AdvReac Unknown weakness, Verified 07/20/25 11:18 Hellucination Active Medications: Current Medications Acetaminophen (Acetaminophen 325 Mg Tablet) 650 mg PO Q6H PRN PRN Reason: Pain, Mild 1-3,fever,headache Last Admin: 07/30/25 04:12 Dose: 650 mg Albuterol Sulfate (Albuterol Sulfate (0.083%) 2.5 Mg/3 Ml Vial.Neb) 2.5 mg INHALE Q2H PRN PRN Reason: Shortness of Breath/Wheezing Albuterol/Ipratropium (Albuterol/Iprat 2.5/0.5mg 3 Ml Ampul.Neb) 3 ml INHALE RQ4H WHILE AWAKE [facility] Last Admin: 08/05/25 15:24 Dose: 3 ml Amlodipine Besylate (Amlodipine Besylate 10 Mg Tablet) 10 mg PO DAILY [facility]; Protocol Last Admin: 08/05/25 07:46 Dose: 10 mg Apixaban (Apixaban 5 Mg Tablet) 5 mg PO BID [facility] Last Admin: 08/05/25 07:47 Dose: 5 mg Atorvastatin Calcium (Atorvastatin Calcium 80 Mg Tablet) 80 mg PO BEDTIME [facility] Last Admin: 08/04/25 20:37 Dose: 80 mg Benzocaine (Throat Lozenge, Medicated Lozenge) 1 lozenge MUCOUS MEM Q2H PRN PRN Reason: Sore Throat Last Admin: 07/28/25 21:10 Dose: 1 lozenge Buspirone HCl (Buspirone Hcl 10 Mg Tablet) 10 mg PO BID [facility] Last Admin: 08/05/25 07:47 Dose: 10 mg Calcium Carbonate (Calcium Carbonate 750 Mg Tab.Chew) 750 mg PO Q4H PRN PRN Reason: Heartburn Carvedilol (Carvedilol 12.5 Mg Tablet) 12.5 mg PO BID [facility]; Protocol Last Admin: 08/05/25 07:46 Dose: 12.5 mg Dextrose (Dextrose 50 % 25 Gm/50 Ml Syringe) 25 gm IVPUSH Q15M PRN; Protocol PRN Reason: per Hypoglycemia Standing Ord. Docusate Sodium (Docusate Sodium 100 Mg Capsule) 100 mg PO BID PRN PRN Reason: Constipation Last Admin: 07/27/25 20:56 Dose: 100 mg Escitalopram Oxalate (Escitalopram Oxalate 10 Mg Tablet) 15 mg PO DAILY [facility] Last Admin: 08/05/25 07:46 Dose: 15 mg Famotidine (Famotidine 20 Mg Tablet) 20 mg PO DAILY PRN PRN Reason: GERD/Acid Reflux Ferrous Sulfate (Ferrous Sulfate 324 Mg Tablet.Dr) 324 mg PO TID [facility] Last Admin: 08/05/25 14:23 Dose: 324 mg Glucose (Glucose Gel 15 Gm Gel..Gram.) 15 gm PO Q15M PRN; Protocol PRN Reason: per Hypoglycemia Standing Ord. Guaifenesin (Guaifenesin 200 Mg/10 Ml 10 Ml Liquid) 10 ml PO Q4H PRN PRN Reason: Cough Last Admin: 07/31/25 20:13 Dose: 10 ml Hydralazine HCl (Hydralazine Hcl 25 Mg Tablet) 25 mg PO TID [facility]; Protocol Last Admin: 08/05/25 14:23 Dose: 25 mg Levofloxacin (Levaquin) 750 mg in 150 mls @ 100 mls/hr IV Q48H [facility] Last Infusion: 08/05/25 18:08 Dose: Infused Metronidazole (Flagyl) 500 mg in 100 mls @ 100 mls/hr IV Q8H [facility] Last Infusion: 08/05/25 16:25 Dose: Infused Insulin Glargine (Insulin Glargine,Hum.Rec.Anlog 100 Unit/Ml 10 Ml Vial) 28 unit SUBCUT BEDTIME [facility] Insulin Human Lispro (Insulin Lispro 100 Unit/Ml 3 Ml Vial) 0 unit SUBCUT QIDACHS [facility]; Protocol Last Admin: 08/05/25 16:51 Dose: 4 unit Loratadine (Loratadine 10 Mg Tablet) 10 mg PO DAILY [facility] Last Admin: 08/05/25 07:46 Dose: 10 mg Magnesium Hydroxide (Milk Of Magnesia 30 Ml Oral.Susp) 30 ml PO DAILY PRN PRN Reason: Constipation Last Admin: 07/22/25 09:15 Dose: 30 ml Meclizine HCl (Meclizine Hcl 12.5 Mg Tablet) 12.5 mg PO TID PRN PRN Reason: dizziness Melatonin (Melatonin 3 Mg Tablet) 6 mg PO BEDTIME PRN PRN Reason: Insomnia Methylprednisolone Sodium Succinate (Methylprednisolone Sod Succ 125 Mg/2 Ml Vial) 60 mg IVPUSH Q6H [facility] Last Admin: 08/05/25 16:51 Dose: 60 mg Montelukast Sodium (Montelukast Sodium 10 Mg Tablet) 10 mg PO BEDTIME [facility] Last Admin: 08/04/25 20:37 Dose: 10 mg Nitroglycerin (Nitroglycerin 0.4 Mg Tab.Subl) 0.4 mg SUBLINGUAL Q5M PRN PRN Reason: chest pain Ondansetron HCl (Ondansetron Hcl 4 Mg/2 Ml Vial) 4 mg IVPUSH Q4H PRN PRN Reason: Nausea and Vomiting Last Admin: 08/05/25 01:01 Dose: 4 mg Pantoprazole Sodium (Pantoprazole Sodium 20 Mg Tablet.Dr) 40 mg PO BID@0630,1630 [facility] Last Admin: 08/05/25 16:51 Dose: 40 mg Polyethylene Glycol (Polyethylene Glycol 3350 17 Gm Powd.Pack) 17 gm PO BID PRN PRN Reason: Constipation Potassium Chloride (Potassium Chloride Er 20 Meq Tab.Er.Prt) 40 meq PO BID [facility] Last Admin: 08/05/25 07:46 Dose: 40 meq Sodium Chloride (0.9 % Sodium Chloride Flush 3 Ml Syringe) 3 ml IVFLUSH QSHIFT [facility] Last Admin: 08/05/25 14:58 Dose: 3 ml Vitamin D (Cholecalciferol (Vitamin D3) 25 Mcg Tablet) 25 mcg PO DAILY [facility] Last Admin: 08/05/25 07:46 Dose: 25 mcg Home Medications ?Medication ?Instructions ?Recorded ?Confirmed ?Last Taken ?Type cholecalciferol (vitamin D3) 25 25 mcg PO DAILY 08/11/23 07/20/25 07/20/25 History mcg (1,000 unit) tablet albuterol sulfate 90 mcg/actuation 2 puff inhalation QID PRN 05/17/24 07/20/25 Unknown History aerosol inhaler SOB/wheezing budesonide-formoterol HFA 160 2 puff inhalation BID PRN SOB 05/17/24 07/20/25 Unknown History mcg-4.5 mcg/actuation aerosol inhaler (Symbicort) diltiazem HCl 300 mg 300 mg PO DAILY 07/16/25 07/20/25 07/20/25 History capsule,extended release 24 hr (Cartia XT) famotidine 20 mg tablet 20 mg PO DAILY PRN GERD/Acid Reflux 07/16/25 07/20/25 Unknown History insulin lispro 100 unit/mL 1 sliding scale dose subcut TIDAC 07/16/25 07/20/25 07/20/25 History subcutaneous pen (Humalog KwikPen (U-100) Insulin) pantoprazole 40 mg tablet,delayed 40 mg PO DAILY@0630 07/16/25 07/20/25 07/20/25 History release semaglutide 2 mg/dose (8 mg/3 mL) 2 mg subcut [facility] 07/16/25 07/20/25 07/08/25 History subcutaneous pen injector (Ozempic) Physical Exam Exam: Exam: ?General:? Patient alert and oriented x3 on BIPAP ?HEENT:? Head is normocephalic, atraumatic, pupils equal round reactive to light accommodation bilaterally.? Extraocular movements appear intact.? Buccal mucosa is dry, Neck is supple without lymphadenopathy. ?Cardiac:?Afib rate control Clear S1-S2, no murmurs rubs or gallops. ?Pulmonary:? Rhonchi throught out. No wheezing. On BIPAP ?Abdomen:? ?Abdomen soft, non-tender, non-distended. Normal bowel sounds. No pulsatile mass. No hepatosplenomegaly. ?Musculoskeletal:? Moving all 4 extremities upon request a major joints, there is no crepitus or tenderness.? The strength is 5/5 bilaterally and throughout all 4 extremities.? Gait not assessed at this point. ?Neurologic:? cranial nerves 2-12 are grossly intact.? No focal deficits noted.Motor strength as above.?? ?Skin:? Intact, no lesions, edema, erythema, clubbing or cyanosis.? No ulcers. Vascular:? 2+ pulses upper and lower extremities distally.? Vital Signs: Vital Signs: Last Vital Signs Temp 97.6 F 08/05/25 19:31 Pulse 80 08/05/25 19:31 Resp 36 H 08/05/25 19:31 BP 115/34 L 08/05/25 19:31 Pulse Ox 91 L 08/05/25 19:31 O2 Del Method BiPAP 08/05/25 19:31 O2 Flow Rate 55 08/05/25 15:35 FiO2 70 08/05/25 19:34 Oxygen Flow Rate 2 07/20/25 11:16 BMI result Body Mass Index 34.3 Results Labs 08/06/25 05:27 08/06/25 05:27 Labs: Short CBC 08/05/25 Range/Units 09:51 WBC 4.8 (4.8-10.8) X10*3/uL Hgb 7.9 L (12.0-16.0) g/dl Hct 24.0 L (37.0-47.0) % Plt Count 29 L D (160-400) X10*3/uL BMP 08/05/25 06:49 Sodium 145 Potassium 5.0 Chloride 112 H Carbon Dioxide 21 L BUN 93 H Creatinine 1.74 H Calcium 8.0 L Microbiology Microbiology Results: Microbiology 07/20/25 12:15 Blood - Venous Blood Culture - Final No growth after 5 days. 07/20/25 12:15 Blood - Venous Blood Culture - Final No growth after 5 days. Assessment and Plan (1) Acute hypoxic respiratory failure: Status: Acute (2) Aspiration pneumonia: Status: Acute (3) Pulmonary edema: Status: Acute (4) Acute exacerbation of congestive heart failure: Status: Acute (5) Thrombocytopenia: Status: Acute (6) AG (acute kidney injury): Status: Acute (7) Hypotension: Status: Acute (8) COPD (chronic obstructive pulmonary disease): Qualifiers: COPD type: unspecified COPD Qualified Code(s): J44.9 - Chronic obstructive pulmonary disease, unspecified Status: Acute Plan 74-year-old female history of COPD, ALYSIA, obesity, coronary artery disease s/p stent, diastolic congestive heart failure, diabetes mellitus, paroxysmal atrial fibrillation (on Eliquis), transferred to ICU for management of acute hypoxic respiratory failure secondary to aspiration event and pneumonia Neuro:?? No acute issues Cardiac:?? Sepsis: ?No evidence of septic shock, lactic is 2. ?Chest CT from today showing worsening right lobe pneumonia. ?Antibiotic switch to metronidazole and levofloxacin. ?Will cont Pulmonary edema: ?Patient has underlying Congestive heart failure, CT does show some pulmonary congestion, the patient has worsening renal function. Cardiology recommend stop diuresis and continue antibiotics. ?Appreciate Cardiology recommendations Hypotension: ?No evidence of septic shock. Underlying history of hypertension:? Patient?will hold amlodipine, hydralazine,? metoprolol Pulmonary:? Acute hypoxic respiratory failure-? secondary to aspiration pneumonia. ?CT does show worsening of pneumonia. ?Antibiotic coverage switch due to development of thrombocytopenia. ?Patient requiring BiPAP support for work of breathing. Cont IV Solu-Medrol, nebulizer treatments and antibiotics.? Wean off supplemental oxygenation as tolerated.? Underlying history of COPD,? keep 02 sat 88-92%? Renal:?AG- nonoliguric. ?Patient was on Lasix drip yesterday, stopped today due to worsening renal function.? Patient is still making urine. ?Will Continue to trend renal indices and urine output.? Endo:? Underlying history of diabetes:? we will keep him patient NPO until while on BIPAP? Q.6 POCs? GI:? ? no acute issues ID:?? ?Sepsis aspiration pneumonia:?BC from 07/20/25 neg. changed piperacillin-tazobactam 07/30-08/02 to ampicillin-sulbactam 08/02 due to thrombocytopenia; will change to levofloxacin + metronidazole 08/05- - MRSA neg; d/c'ed vancomycin 07/30-08/02 - BCx neg; urinary antigens for Legionella and pneumococcus both negative - PCT increased; antibiotics changed as above; ID consultation Will send in a new set of blood cultures. ?Continue levofloxacin and metronidazole. Heme/Onc:? Thrombocytopenia: ?Patient's platelet continued to decrease during admission,. ?Heme/Onc consulted, unsure if thrombocytopenia related to Zosyn vs infection. Recommended 1 unit of RBC ?DIC and coags workup. Platelet transfusion if [place] <10. Rec to hold eliquis if platelets <30 Psych:? No acute issues. Miscellaneous:? no acute issues Prophylaxis: Eliquis, will also add pneumonic boots CODE STATUS : FULL CODE confirmed with patient and daughter Critical care time:? X 60 minutes of critical care time ?Case discussed with attending Dr Rand?
[2025-08-05 20:34] LABS: Alanine Aminotransferase 48 U/L (0-31); Albumin Level 2.3 g/dL (3.5-5.0); Alkaline Phosphatase 86 U/L (39-117); Anion Gap 16 (12-20); Aspartate Amino Transferase 76 U/L (5-31); Blood Urea Nitrogen 108 mg/dL (9-16); Calcium 7.9 mg/dL (8.4-10.2); Carbon Dioxide 23 mmol/L (22-29); Chloride 112 mmol/L (96-108); Creatinine Clr Calc Pharmacy 26.9; Estimated Glomerular Filt Rate 25; Potassium 5.6 mmol/L (3.3-5.1); Sodium 145 mmol/L (135-145); Total Protein 4.9 g/dL (6.5-8.0)
[2025-08-05 20:36] LABS: NT Pro B Type Natriuretic Pept 2959.4 pg/mL (<300)
[2025-08-05 20:42] LABS: Troponin-I High Sensitivity 350.2 ng/L (<3.5-17.0)
[2025-08-05 21:03] LABS: Glucose, Whole Blood 167 mg/dL (60-115)
[2025-08-05] MEDS: Albumin Human 25 % 100 ML IV (21:03)
[2025-08-05 23:30] LABS: Hematocrit 22.7 % (37.0-47.0); Hemoglobin 7.4 g/dl (12.0-16.0); Mean Corpuscular HGB Conc 32.6 g/dl (31.0-35.0); Mean Corpuscular Hemoglobin 26.1 pg (27.0-33.0); Mean Corpuscular Volume 79.9 fL (80.0-98.0); NRBC Abs Auto 0.000 X10*3/uL (0.0-0.012); NRBC Pct Auto 0.0 /100WBC (0.0-0.2); Red Blood Count 2.84 X10*6/uL (4.20-5.50); WBC ABN SCTR FOR CBC 1
[2025-08-05 23:31] LABS: White Blood Count 2.6 X10*3/uL (4.8-10.8)
[2025-08-05 23:32] LABS: Platelet Count 20 X10*3/uL (160-400)
[2025-08-05 23:48] LABS: Anion Gap 17 (12-20); Blood Urea Nitrogen 111 mg/dL (9-16); Calcium 7.9 mg/dL (8.4-10.2); Carbon Dioxide 24 mmol/L (22-29); Chloride 111 mmol/L (96-108); Creatinine Clr Calc Pharmacy 26.4; Estimated Glomerular Filt Rate 25; Potassium 5.4 mmol/L (3.3-5.1); Sodium 147 mmol/L (135-145)
[2025-08-05 23:57] LABS: Troponin-I High Sensitivity 502.4 ng/L (<3.5-17.0)
[2025-08-05 23:58] LABS: Band Neutrophils Percent 37 % (3-5); Monocytes Absolute Manual 0.2 X10*3/uL (0.1-1.2); Monocytes Percent Manual 6 % (2-11); Neutrophils Absolute Manual 2.4 X10*3/uL (2.0-8.3); Neutrophils Percent Manual 57 % (45-73); RBC Morphology NOTED
[2025-08-05 23:59] LABS: Acanthocytes 3+ (>5) /OIF; Large Platelet PRESENT; Ovalocytes 1+ (5-14) /OIF; Schistocytes 1+ (0-2) /OIF; Target Cells 1+ (5-14) /OIF
[2025-08-06] VITALS (55 sets, daily range): BP systolic 79–139; BP diastolic 25–52; PULSE 80–99; RESP 15–39; TEMP 35–37.6; O2SAT 87–98; BMI 34.6
[2025-08-06] LABS: Burr Cells 3+ (>5) /OIF; Hypochromasia 1+ (5-14) /OIF; Tear Drop Cells 1+ (0-2) /OIF; Toxic Granulation PRESENT
[2025-08-06 00:01] LABS: Microcytosis 1+ (5-14) /OIF
[2025-08-06 00:28] LABS: Glucose, Whole Blood 184 mg/dL (60-115)
[2025-08-06] MEDS: 0.9 % Sodium Chloride Flush 3 ML SYRINGE IVFLUSH ×4 (00:35→22:33)
[2025-08-06] MEDS: Albumin Human 25 % 100 ML IV ×4 (01:54→17:30)
[2025-08-06 05:33] LABS: VBG HCO3 28 mmol/L (22-26); VBG O2 % Saturation 90.0 %
[2025-08-06 05:53] LABS: Venous Blood Gas Refer to POC result
[2025-08-06 06:06] LABS: MANUAL DIFF FLAG NO
[2025-08-06 06:12] LABS: Imm Gran Abs Auto 0.02 X10*3/uL (0.00-0.03); Imm Gran Pct Auto 0.9 % (0.0-0.4); LEFT SHIFT? 1; Lymphocytes Absolute Auto 0.1 X10*3/uL (1.2-4.9); Mean Corpuscular HGB Conc 32.6 g/dl (31.0-35.0); Mean Corpuscular Hemoglobin 25.9 pg (27.0-33.0); Mean Corpuscular Volume 79.4 fL (80.0-98.0); NRBC Abs Auto 0.000 X10*3/uL (0.0-0.012); NRBC Pct Auto 0.0 /100WBC (0.0-0.2); Red Blood Count 2.43 X10*6/uL (4.20-5.50); SCAN SMEAR FLAG 1; WBC ABN SCTR 1; WBC ABN SCTR FOR CBC 1
[2025-08-06 06:14] LABS: White Blood Count 2.2 X10*3/uL (4.8-10.8)
[2025-08-06 06:15] LABS: Hemoglobin 6.3 g/dl (12.0-16.0)
[2025-08-06 06:16] LABS: Hematocrit 19.3 % (37.0-47.0); Platelet Count 17 X10*3/uL (160-400)
[2025-08-06 06:28] LABS: Potassium 5.5 mmol/L (3.3-5.1)
[2025-08-06] MEDS: metroNIDAZOLE/NS 500 MG/100 ML PIGGYBACK 100 MG IV ×3 (06:28→22:30)
[2025-08-06 06:29] LABS: Alanine Aminotransferase 36 U/L (0-31); Albumin Level 2.8 g/dL (3.5-5.0); Alkaline Phosphatase 69 U/L (39-117); Anion Gap 17 (12-20); Aspartate Amino Transferase 71 U/L (5-31); Blood Urea Nitrogen 117 mg/dL (9-16); Calcium 7.8 mg/dL (8.4-10.2); Carbon Dioxide 23 mmol/L (22-29); Chloride 112 mmol/L (96-108); Creatinine Clr Calc Pharmacy 23.5; Estimated Glomerular Filt Rate 21; Magnesium 2.4 mg/dL (1.6-2.6); Sodium 146 mmol/L (135-145); Total Protein 4.9 g/dL (6.5-8.0)
[2025-08-06 06:34] LABS: Band Neutrophils Percent 26 % (3-5); Lymphocytes Percent Manual 2 % (20-40); Metamyelocytes Absolute 0.1 X10*3/uL; Metamyelocytes Percent 5 %; Monocytes Percent Manual 2 % (2-11); Neutrophils Absolute Manual 2.0 X10*3/uL (2.0-8.3); Neutrophils Percent Manual 65 % (45-73); Troponin-I High Sensitivity 884.3 ng/L (<3.5-17.0)
[2025-08-06 06:36] LABS: Acanthocytes 1+ (0-2) /OIF; Burr Cells 3+ (>5) /OIF; Fibrinogen 625 MG/DL (259-690); INTERNATIONAL NORM RATIO 2.2 (0.9-1.1); Large Platelet PRESENT; Microcytosis 1+ (5-14) /OIF; Ovalocytes 1+ (5-14) /OIF; Prothrombin Time 26.7 SEC (11.2-13.5); RBC Morphology NOTED; Schistocytes 1+ (0-2) /OIF; Target Cells 1+ (5-14) /OIF; Toxic Granulation PRESENT; Toxic Vacuolation PRESENT
[2025-08-06 06:38] LABS: D Dimer High Sensitivity 510 NG/ML; Partial Thromboplastin Time 32.7 SEC (26.7-34.1)
--- NOTE | 2025-08-06 07:13 | PC.NURSE ---
Patient transferred to ICU from [facility] post [employer] [place] for increased work of breathing at approximately 1930. Upon initial assessment- Pt A+Ox3, vague to situation, follows simple commands, MERINO weakly. On Bipap 15/8, 70% FiO2, SpO2>88 with increased WOB, RR 30s- IVP Fentanyl administered with some effect. Coarse crackles throughout, RLL diminished. Loose productive cough- small amount of cream/blood streaked sputum suctioned- [employer] Behzad aware, Sputum culture obtained. HR 70-80s, SBP 110s. Non-pitting edema to BUE, +1 edema to BL feet. Additional IV access obtained. EKG and repeat labs obtained- IV albumin, 5u IVP Insulin and amp of D50 administered per NOV. Abd large, soft, positive BS, no BM overnight. Impaired skin integrity- see wound assessment. At approximately 0400- Patient A+Ox2, follows simple commands, MERINO weakly. Pt complaining of 6/10 throbbing headache, pt denies any dizziness or nausea- [employer] F[employer] aware. IV Tylenol administered with some effect. Repeat labs obtained. Remains on Bipap 15/8, FiO2 titrated down to 50% while maintaining SpO2 >88%. Bed locked and in lowest position. Call cevallos within reach. See EMR/ flowsheet for further details. Report given to oncoming RN at 0700.
[2025-08-06 07:34] LABS: Glucose, Whole Blood 182 mg/dL (60-115)
[2025-08-06] MEDS: Albuterol/Iprat 2.5/0.5MG 3 ML AMPUL.NEB INHALE ×4 (07:46→20:13)
[2025-08-06 09:49] LABS: ABG Refer to POC result
--- NOTE | 2025-08-06 11:19 | MHC.CLN ---
PT WITH INCREASED NUTRITION RISK R/T PRESSURE INJURY CURRENTLY NPO PREVIOUS PO INTAKE VARIABLE RANGING FROM 0-75% WHEN DIET TO ADVANCE, RECOMMEND ADDING ENSURE MAX BID TO PROMOTE WOUND HEALING SUPP TO PROVIDE 300KCALS, 60G PROTEIN FOLLOWING FOR DIET ADVANCEMENT SEE FULL ASSESSMENT
--- NOTE | 2025-08-06 11:20 | PM.CCPN ---
Subjective Subjective Date of Service: 08/06/25 Interval History: Remains on BiPAP support this Critical Care Time (minutes): 35 Physical Exam Vital Signs: Vital Signs: Last Vital Signs Temp 99.5 F 08/06/25 11:00 Pulse 95 08/06/25 11:00 Resp 20 08/06/25 11:00 BP 129/36 L 08/06/25 11:00 Pulse Ox 87 L 08/06/25 11:00 O2 Del Method BiPAP 08/06/25 11:00 O2 Flow Rate 15 08/05/25 20:54 FiO2 50 08/06/25 11:00 Oxygen Flow Rate 15 08/05/25 20:54 BMI result Body Mass Index 34.6 General: acute distress, acutely ill appearing and tired appearing Nutritional Appearance: well nourished and overweight Eyes: appearance normal, both eyes and all related structures; Alignment and Position: alignment normal and position normal Neck: No lymphadenopathy, no thyromegaly Resp: bilateral air entry equal, bilateral crackles heard Cardio: Regular rate, regular rhythm; Heart sounds: S1 normal heart sound present and S2 normal heart sound present GI: soft, nontender, no guarding, no hepatosplenomegaly : bladder normal to inspection, bladder normal to palpation, no renal angle tenderness Skin: no rashes or lesions noted and elasticity normal Neuro: oriented to person, oriented to place, oriented to time and moves all extremities Objective Data Labs 08/06/25 05:27 08/06/25 05:27 Labs: Laboratory Results - last 24 hr 08/04/25 08/05/25 08/05/25 14:19 06:49 09:51 WBC 4.8 RBC 3.15 L Hgb 7.9 L Hct 24.0 L MCV 76.2 L MCH 25.1 L MCHC 32.9 RDW 23.0 H Plt Count 29 L D MPV TNP Immature Gran % (Auto) Neut % (Auto) Lymph % (Auto) [place] % (Auto) Eos % (Auto) Baso % (Auto) Lymph # (Auto) [place] # (Auto) Eos # (Auto) Baso # (Auto) Abs Immat Gran (auto) Absolute Neuts (auto) Absolute Nucleated RBC 0.000 Nucleated RBC % (auto) 0.0 Neutrophils % (Manual) Band Neutrophils % Lymphocytes % (Manual) Monocytes % (Manual) Metamyelocytes % Abs Neuts (Manual) Monocytes # (Manual) Metamyelocytes # Toxic Granulation Toxic Vacuolation Platelet Estimate Large Platelets Plt Morphology Comment RBC Morphology Hypochromasia Microcytosis Target Cells Tear Drop Cells Ovalocytes Ruby Cells Acanthocytes (Spur) Schistocytes Smear Path Review PT INR APTT Fibrinogen D-Dimer High Sensitivty O2 Saturation ABG pH at Pt Temp ABG pCO2 at Pt Temp ABG pO2 at Pt Temp ABG HCO3 ABG Base Excess (Actual) VBG pH VBG pCO2 VBG pO2 VBG HCO3 VBG O2 Saturation VBG Base Excess Sodium Potassium Chloride Carbon Dioxide Anion Gap BUN Creatinine Estim Creat Clear Calc Estimated GFR POC Glucose Random Glucose Lactic Acid Calcium Phosphorus Magnesium Total Bilirubin AST ALT Alkaline Phosphatase Troponin I High Sens NT-Pro-B Natriuret Pep Total Protein Albumin Procalcitonin 1.06 Blood Type A Positive Antibody Screen NEGATIVE Crossmatch See Detail 08/05/25 08/05/25 08/05/25 16:25 18:50 19:06 WBC RBC Hgb Hct MCV MCH MCHC RDW Plt Count MPV Immature Gran % (Auto) Neut % (Auto) Lymph % (Auto) [place] % (Auto) Eos % (Auto) Baso % (Auto) Lymph # (Auto) [place] # (Auto) Eos # (Auto) Baso # (Auto) Abs Immat Gran (auto) Absolute Neuts (auto) Absolute Nucleated RBC Nucleated RBC % (auto) Neutrophils % (Manual) Band Neutrophils % Lymphocytes % (Manual) Monocytes % (Manual) Metamyelocytes % Abs Neuts (Manual) Monocytes # (Manual) Metamyelocytes # Toxic Granulation Toxic Vacuolation Platelet Estimate Large Platelets Plt Morphology Comment RBC Morphology Hypochromasia Microcytosis Target Cells Tear Drop Cells Ovalocytes [place] Cells Acanthocytes (Spur) Schistocytes Smear Path Review PT INR APTT Fibrinogen D-Dimer High Sensitivty O2 Saturation 96.0 ABG pH at Pt Temp 7.46 H ABG pCO2 at Pt Temp 40 ABG pO2 at Pt Temp 86 ABG HCO3 29 H ABG Base Excess (Actual) 5.2 VBG pH VBG pCO2 VBG pO2 VBG HCO3 VBG O2 Saturation VBG Base Excess Sodium Potassium Chloride Carbon Dioxide Anion Gap BUN Creatinine Estim Creat Clear Calc Estimated GFR POC Glucose 199 H 196 H Random Glucose Lactic Acid Calcium Phosphorus Magnesium Total Bilirubin AST ALT Alkaline Phosphatase Troponin I High Sens NT-Pro-B Natriuret Pep Total Protein Albumin Procalcitonin Blood Type Antibody Screen Crossmatch 08/05/25 08/05/25 08/05/25 19:21 20:05 20:06 WBC RBC Hgb Hct MCV MCH MCHC RDW Plt Count MPV Immature Gran % (Auto) Neut % (Auto) Lymph % (Auto) [place] % (Auto) Eos % (Auto) Baso % (Auto) Lymph # (Auto) [place] # (Auto) Eos # (Auto) Baso # (Auto) Abs Immat Gran (auto) Absolute Neuts (auto) Absolute Nucleated RBC Nucleated RBC % (auto) Neutrophils % (Manual) Band Neutrophils % Lymphocytes % (Manual) Monocytes % (Manual) Metamyelocytes % Abs Neuts (Manual) Monocytes # (Manual) Metamyelocytes # Toxic Granulation Toxic Vacuolation Platelet Estimate Large Platelets Plt Morphology Comment RBC Morphology Hypochromasia Microcytosis Target Cells Tear Drop Cells Ovalocytes [place] Cells Acanthocytes (Spur) Schistocytes Smear Path Review PT INR APTT Fibrinogen D-Dimer High Sensitivty O2 Saturation ABG pH at Pt Temp ABG pCO2 at Pt Temp ABG pO2 at Pt Temp ABG HCO3 ABG Base Excess (Actual) VBG pH VBG pCO2 VBG pO2 VBG HCO3 VBG O2 Saturation VBG Base Excess Sodium 145 Potassium 5.6 H Chloride 112 H Carbon Dioxide 23 Anion Gap 16 BUN 108 H Creatinine 1.94 H Estim Creat Clear Calc 26.9 Estimated GFR 25 POC Glucose 172 H Random Glucose 190 H Lactic Acid 2.0 Calcium 7.9 L Phosphorus Magnesium Total Bilirubin 0.5 AST 76 H ALT 48 H Alkaline Phosphatase 86 Troponin I High Sens 350.2 H* D NT-Pro-B Natriuret Pep 2959.4 H Total Protein 4.9 L Albumin 2.3 L Procalcitonin Blood Type Antibody Screen Crossmatch 08/05/25 08/05/25 08/05/25 20:57 23:19 23:49 WBC 2.6 L RBC 2.84 L Hgb 7.4 L Hct 22.7 L MCV 79.9 L MCH 26.1 L MCHC 32.6 RDW 23.3 H Plt Count 20 L* MPV Not Reportable Immature Gran % (Auto) Cancelled Neut % (Auto) Cancelled Lymph % (Auto) Cancelled [place] % (Auto) Cancelled Eos % (Auto) Cancelled Baso % (Auto) Cancelled Lymph # (Auto) Cancelled [place] # (Auto) Cancelled Eos # (Auto) Cancelled Baso # (Auto) Cancelled Abs Immat Gran (auto) Cancelled Absolute Neuts (auto) Cancelled Absolute Nucleated RBC 0.000 Nucleated RBC % (auto) 0.0 Neutrophils % (Manual) 57 Band Neutrophils % 37 H Lymphocytes % (Manual) Monocytes % (Manual) 6 Metamyelocytes % Abs Neuts (Manual) 2.4 Monocytes # (Manual) 0.2 Metamyelocytes # Toxic Granulation PRESENT Toxic Vacuolation Platelet Estimate DECREASED Large Platelets PRESENT Plt Morphology Comment NOTE RBC Morphology NOTED Hypochromasia 1+ (5-14) Microcytosis 1+ (5-14) Target Cells 1+ (5-14) Tear Drop Cells 1+ (0-2) Ovalocytes 1+ (5-14) [place] Cells 3+ (>5) Acanthocytes (Spur) 3+ (>5) Schistocytes 1+ (0-2) Smear Path Review PT INR APTT Fibrinogen D-Dimer High Sensitivty O2 Saturation ABG pH at Pt Temp ABG pCO2 at Pt Temp ABG pO2 at Pt Temp ABG HCO3 ABG Base Excess (Actual) VBG pH VBG pCO2 VBG pO2 VBG HCO3 VBG O2 Saturation VBG Base Excess Sodium 147 H Potassium 5.4 H Chloride 111 H Carbon Dioxide 24 Anion Gap 17 BUN 111 H Creatinine 1.97 H Estim Creat Clear Calc 26.4 Estimated GFR 25 POC Glucose 167 H 184 H Random Glucose 199 H Lactic Acid Calcium 7.9 L Phosphorus Magnesium Total Bilirubin AST ALT Alkaline Phosphatase Troponin I High Sens 502.4 H* NT-Pro-B Natriuret Pep Total Protein Albumin Procalcitonin Blood Type Antibody Screen Crossmatch 08/06/25 08/06/25 08/06/25 05:27 05:29 07:32 WBC 2.2 L RBC 2.43 L Hgb 6.3 L* Hct 19.3 L* MCV 79.4 L MCH 25.9 L MCHC 32.6 RDW 23.1 H Plt Count 17 L* MPV Not Reportable Immature Gran % (Auto) 0.9 H Neut % (Auto) 89.4 H Lymph % (Auto) 4.6 L [place] % (Auto) 3.7 Eos % (Auto) 0.0 Baso % (Auto) 1.4 Lymph # (Auto) 0.1 L [place] # (Auto) 0.1 Eos # (Auto) 0.0 Baso # (Auto) 0.0 Abs Immat Gran (auto) 0.02 Absolute Neuts (auto) 2.0 Absolute Nucleated RBC 0.000 Nucleated RBC % (auto) 0.0 Neutrophils % (Manual) 65 Band Neutrophils % 26 H Lymphocytes % (Manual) 2 L Monocytes % (Manual) 2 Metamyelocytes % 5 Abs Neuts (Manual) 2.0 Monocytes # (Manual) Metamyelocytes # 0.1 Toxic Granulation PRESENT Toxic Vacuolation PRESENT Platelet Estimate DECREASED Large Platelets PRESENT Plt Morphology Comment NOTED RBC Morphology NOTED Hypochromasia Microcytosis 1+ (5-14) Target Cells 1+ (5-14) Tear Drop Cells Ovalocytes 1+ (5-14) Ruby Cells 3+ (>5) Acanthocytes (Spur) 1+ (0-2) Schistocytes 1+ (0-2) Smear Path Review SEE NOTE PT 26.7 H D INR 2.2 H APTT 32.7 Fibrinogen 625 D-Dimer High Sensitivty 510 O2 Saturation ABG pH at Pt Temp ABG pCO2 at Pt Temp ABG pO2 at Pt Temp ABG HCO3 ABG Base Excess (Actual) VBG pH 7.54 H VBG pCO2 32 VBG pO2 61 VBG HCO3 28 H VBG O2 Saturation 90.0 VBG Base Excess 5.8 Sodium 146 H Potassium 5.5 H Chloride 112 H Carbon Dioxide 23 Anion Gap 17 BUN 117 H Creatinine 2.22 H Estim Creat Clear Calc 23.5 Estimated GFR 21 POC Glucose 182 H Random Glucose 190 H Lactic Acid Calcium 7.8 L Phosphorus 4.1 Magnesium 2.4 Total Bilirubin 0.8 AST 71 H ALT 36 H Alkaline Phosphatase 69 Troponin I High Sens 884.3 H* D NT-Pro-B Natriuret Pep 2789.7 H Total Protein 4.9 L Albumin 2.8 L Procalcitonin Blood Type Antibody Screen Crossmatch Microbiology Microbiology Results: Microbiology 07/20/25 12:15 Blood - Venous Blood Culture - Final No growth after 5 days. 07/20/25 12:15 Blood - Venous Blood Culture - Final No growth after 5 days. Progress Note: A&P Assessment and plan (1) Hypertension: Status: Acute (2) Paroxysmal atrial fibrillation: Status: Acute (3) AG (acute kidney injury): Status: Acute (4) Acute hypoxic respiratory failure: Status: Acute Plan 74-year-old female history of COPD, ALYSIA, obesity, coronary artery disease s/p stent, diastolic congestive heart failure, diabetes mellitus, paroxysmal atrial fibrillation (on Eliquis), lung CA s/p lobectomy in 2009, tracheal stenosis s/p tracheoplasty who presented to emergency department on 07/20/25 with worsening dyspnea admitted to hospital Medicine for hypoxic respiratory failure secondary to bibasilar pneumonia likely aspiration component more significantly on the right. Cultures negative to date. Abx coverage since admission piperacillin-tazobactam 07/30-08/02 to ampicillin-sulbactam 08/02 due to thrombocytopenia; and finally today levofloxacin + metronidazole 08/05. MRSA neg; d/c'ed vancomycin 07/30-07/08 Neuro: Acute encephalopathy possibly due to metabolic encephalopathy Receiving fentanyl 25 mg q.2 hours p.r.n. for agitation We will start on low-dose Precedex drip On home buspirone and Lexapro Close neurological status monitoring in the ICU every hour Cardiac: A TTE done 2 days ago showing EF 70%, some diastolic dysfunction, normal RV function CAD: Status post stent placement Paroxysmal atrial fibrillation: On carvedilol for rate control On Eliquis 5 mg b.i.d. for anticoagulation Hypertension: On hydralazine 25 t.i.d., amlodipine 10 mg daily and carvedilol 12.5 b.i.d. Respiratory: Acute on chronic hypoxemic respiratory failure due to right lung pneumonia on top of underlying COPD. Patient had a repeat CT chest yesterday which showed increasing consolidation in the right lower lung when compared to CT on 08/02/2025 She had lobectomy in 2009 possibly on left side for lung nodule no chemo/radiation therapy, tracheomalacia s/p tracheoplasty in 2016. Currently on BiPAP support, discussed in detail about patient's critical condition and further risk of worsening oxygen requirement with continued aspiration on BiPAP with patient's daughter Rachana. Patient would need intubation at some point as she is tachypneic on the BiPAP, earlier better than late as if she goes into respiratory arrest she would be a difficult intubation given her history of tracheal reconstruction surgery. Would possibly intubate her this afternoon once the family visits her. Explained her patient's prognosis is very guarded, currently not sure if she would be a candidate for tracheostomy if she fails weaning trials. We will talk to Dr. Galaviz about it [id number] Az Solu-Medrol 60 mg q.8 hours GI: We will hold off on feeds due to aspiration risk Renal: Acute kidney injury possibly secondary to volume depletion, we will give her low-dose of fluids while closely monitoring her respiratory status Baseline creatinine normal, creatinine today is 2.2 We will closely monitor I's and O's Avoid nephrotoxic medications Hypernatremia: Secondary to diuresis Hyperkalemia: We will medically manage Heme: Pancytopenia: Hemoglobin 6.3, platelets 17 K; received 1 PRBC this morning, we will transfuse platelets if there is bleeding tendencies Possibly medication induced versus sepsis induced Antibiotics switched from Zosyn to levofloxacin and Flagyl Endocrine: Blood sugars under control Sliding scale insulin as needed Infectious disease: Cultures remain negative so far Antibiotics switched to levofloxacin and Flagyl given pancytopenia Musculoskeletal: Decubitus ulcer prevention protocol Lines: Peripheral Prophylaxis: SCD, pantoprazole Bedside echo showing collapsing RV, collapsing IVC with respiration, normal LV systolic function. Total critical care time spent is about 45 minutes close neurological status monitoring, maintaining sedation and anxiolysis drips, close respiratory status monitoring, NIPPV management, close hemodynamic status monitoring, bedside echo, review of labs, coordination of care at this time is excluding any procedural time Quality Stroke Does the patient have a stroke diagnosis?: No VTE Prior VTE?: No VTE Risk Level:: Medical - moderate - high VTE Device Contraindication: N/A - Device Ordered VTE Drug Contraindication: N/A - Med Ordered
--- NOTE | 2025-08-06 11:22 | MHC.CM.PN ---
Pt transferred to ICU for more aggressive respiratory management. Pt now on BiPAP w/very coarse LS. Pancytopenic and will receive PLTs. DIC ruled out. D/C plan for pt to return to home w/VNA and family support. CM to follow for modifications to d/c plan.
[2025-08-06 11:26] LABS: Glucose, Whole Blood 221 mg/dL (60-115)
[2025-08-06 11:32] LABS: Reticulocytes Absolute 0.013 X10*6/uL (0.026-0.095)
--- NOTE | 2025-08-06 12:12 | MHC.SLORD ---
Speech Language Pathology Order Status: Pt in ICU, RN consulted, pt is NPO, RN reports re-intubation likely. HYPERION ANALYST will follow as indicated as pt has hx of recurrent aspiration.
[2025-08-06 12:28] LABS: Erythrocyte Sedimentation Rate 46 MM/HR (0-20)
[2025-08-06] MEDS: dexmedeTOMIDine HCL/NS 400 MCG/100 ML PLAST..BAG 9.15 MCG IVCONT (12:48)
--- NOTE | 2025-08-06 14:24 | W.PM.IDCN ---
History of Present Illness Data of Consult Service Date: 08/06/25 Requesting physician: Kirsty Noel Primary Care Provider: MD WILLA Davila Reason for consult: right lower lung infiltrate,pancytopenia She presents with shortness of breath per family. She has initial CXR 07/16 pleural calcifications but no lobar infiltrate. She was started on Ceftriaxone and received Doxycycline as well. She had prior admission and received zithromycin as well. She received antibiotics as detailed in Dr Rivera note with Ceftriaxone/Doxycycline and then piperacillin/tazobactem 07/30-08/02 and then Levaquin and Flagyl 08/05. There was concern over aspiration and she received adjusted diet. She is now on bipap 60 with oxygen saturation of 90% and in ICU. 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 Father No problems noted. Brother Substance use disorder Brother Substance use disorder Family history: reviewed and not pertinent Surgical History Surgical History History of carpal tunnel surgery History of cholecystectomy History of lobectomy of lung Status post tracheoplasty History of cardiac cath Social History Social History Household Members: Family Household Members Other:: 2 Housing: House Do you presently have visiting nurse or other home services: No Alcohol intake: current Alcohol intake frequency: holidays/special occasions only Alcohol type: wine Comment: weddings Patient Tobacco Use Status: Former Tobacco user Tobacco use type: Cigarette Years Smoked: 3 stopped 1992 e-Cigarette/Vaping Use: Never Used Second Hand Smoke Exposure: Yes Advance Directives Date on File: 06/29/23 service: No Current occupational status: retired Cognitive needs: No Hearing needs: No Vision needs: No Meds Allergies Allergy/AdvReac Type Severity Reaction Status Date / Time Latex, Natural Rubber Allergy Severe blisters Verified 07/20/25 11:18 Sulfa (Sulfonamide Allergy Mild ITCHING, Verified 07/20/25 11:18 Antibiotics) (SULFA rash (SULFONAMIDE ANTIBIOTICS)) nystatin Allergy Unknown rash Verified 07/20/25 11:18 isosorbide (From Imdur) AdvReac Unknown HEADACHES, Verified 07/20/25 11:18 headache tizanidine AdvReac Unknown weakness, Verified 07/20/25 11:18 Hellucination Active Medications: Current Medications Acetaminophen (Acetaminophen 325 Mg Tablet) 650 mg PO Q6H PRN PRN Reason: Pain, Mild 1-3,fever,headache Last Admin: 07/30/25 04:12 Dose: 650 mg Albuterol Sulfate (Albuterol Sulfate (0.083%) 2.5 Mg/3 Ml Vial.Neb) 2.5 mg INHALE Q2H PRN PRN Reason: Shortness of Breath/Wheezing Albuterol/Ipratropium (Albuterol/Iprat 2.5/0.5mg 3 Ml Ampul.Neb) 3 ml INHALE RQ4H WHILE AWAKE [facility] Last Admin: 08/06/25 11:32 Dose: 3 ml Amlodipine Besylate (Amlodipine Besylate 10 Mg Tablet) 10 mg PO DAILY [facility]; Protocol On Hold: 08/05/25 22:41 Last Admin: 08/05/25 07:46 Dose: 10 mg Apixaban (Apixaban 5 Mg Tablet) 5 mg PO BID LOU On Hold: 08/05/25 23:36 Last Admin: 08/05/25 21:24 Dose: Not Given Atorvastatin Calcium (Atorvastatin Calcium 80 Mg Tablet) 80 mg PO BEDTIME LOU Last Admin: 08/05/25 21:25 Dose: Not Given Benzocaine (Throat Lozenge, Medicated Lozenge) 1 lozenge MUCOUS MEM Q2H PRN PRN Reason: Sore Throat Last Admin: 07/28/25 21:10 Dose: 1 lozenge Buspirone HCl (Buspirone Hcl 10 Mg Tablet) 10 mg PO BID LOU Last Admin: 08/06/25 08:57 Dose: Not Given Carvedilol (Carvedilol 12.5 Mg Tablet) 12.5 mg PO BID LOU; Protocol Last Admin: 08/06/25 08:57 Dose: Not Given Dextrose (Dextrose 50 % 25 Gm/50 Ml Syringe) 25 gm IVPUSH Q15M PRN; Protocol PRN Reason: per Hypoglycemia Standing Ord. Docusate Sodium (Docusate Sodium 100 Mg Capsule) 100 mg PO BID PRN PRN Reason: Constipation Last Admin: 07/27/25 20:56 Dose: 100 mg Escitalopram Oxalate (Escitalopram Oxalate 10 Mg Tablet) 15 mg PO DAILY LOU Last Admin: 08/06/25 08:57 Dose: Not Given Fentanyl (Fentanyl Citrate/Pf 100 Mcg/2 Ml Vial) 25 mcg IVPUSH Q2H PRN; Protocol PRN Reason: WOB Last Admin: 08/06/25 11:31 Dose: 25 mcg Glucose (Glucose Gel 15 Gm Gel..Gram.) 15 gm PO Q15M PRN; Protocol PRN Reason: per Hypoglycemia Standing Ord. Guaifenesin (Guaifenesin 200 Mg/10 Ml 10 Ml Liquid) 10 ml PO Q4H PRN PRN Reason: Cough Last Admin: 07/31/25 20:13 Dose: 10 ml Hydralazine HCl (Hydralazine Hcl 25 Mg Tablet) 25 mg PO TID [facility]; Protocol On Hold: 08/05/25 22:41 Last Admin: 08/05/25 21:29 Dose: Not Given Levofloxacin (Levaquin) 750 mg in 150 mls @ 100 mls/hr IV Q48H [facility] Last Infusion: 08/05/25 18:08 Dose: Infused Metronidazole (Flagyl) 500 mg in 100 mls @ 100 mls/hr IV Q8H [facility] Last Infusion: 08/06/25 08:17 Dose: Infused Norepinephrine Bitartrate (Levophed) 8 mg in 250 mls @ 0 mls/hr IVCONT .Q0M [facility]; Protocol Albumin Human (Kedbumin 25 %) 100 mls @ 100 mls/hr IV Q6H [facility] Stop: 08/06/25 15:44 Last Admin: 08/06/25 14:08 Dose: 100 mls/hr Dexmedetomidine HCl (Precedex) 400 mcg in 100 mls @ 0 mls/hr IVCONT .Q0M [facility]; Protocol Last Admin: 08/06/25 12:48 Dose: 0.4 mcg/kg/hr, 9.15 mls/hr Albumin Human (Kedbumin 25 %) 100 mls @ 100 mls/hr IV Q6H [facility] Stop: 08/07/25 08:29 Insulin Glargine (Insulin Glargine,Hum.Rec.Anlog 100 Unit/Ml 10 Ml Vial) 28 unit SUBCUT BEDTIME [facility] Last Admin: 08/05/25 22:23 Dose: Not Given Insulin Human Lispro (Insulin Lispro 100 Unit/Ml 3 Ml Vial) 0 unit SUBCUT QIDACHS [facility]; Protocol Last Admin: 08/06/25 11:31 Dose: 6 unit Meclizine HCl (Meclizine Hcl 12.5 Mg Tablet) 12.5 mg PO TID PRN PRN Reason: dizziness Methylprednisolone Sodium Succinate (Methylprednisolone Sod Succ 125 Mg/2 Ml Vial) 60 mg IVPUSH Q6H [facility] Last Admin: 08/06/25 10:01 Dose: 60 mg Montelukast Sodium (Montelukast Sodium 10 Mg Tablet) 10 mg PO BEDTIME [facility] Last Admin: 08/05/25 21:30 Dose: Not Given Nitroglycerin (Nitroglycerin 0.4 Mg Tab.Subl) 0.4 mg SUBLINGUAL Q5M PRN PRN Reason: chest pain Ondansetron HCl (Ondansetron Hcl 4 Mg/2 Ml Vial) 4 mg IVPUSH Q4H PRN PRN Reason: Nausea and Vomiting Last Admin: 08/05/25 01:01 Dose: 4 mg Pantoprazole Sodium (Pantoprazole Sodium 40 Mg/10 Ml Vial) 40 mg IVPUSH BID@0630,1630 [facility] Last Admin: 08/06/25 06:41 Dose: 40 mg Potassium Chloride (Potassium Chloride Er 20 Meq Tab.Er.Prt) 40 meq PO BID [facility] On Hold: 08/05/25 23:36 Last Admin: 08/05/25 21:30 Dose: Not Given Sodium Chloride (0.9 % Sodium Chloride Flush 3 Ml Syringe) 3 ml IVFLUSH QSHIFT [facility] Last Admin: 08/06/25 08:29 Dose: 3 ml Home Medications ?Medication ?Instructions ?Recorded ?Confirmed ?Last Taken ?Type cholecalciferol (vitamin D3) 25 25 mcg PO DAILY 08/11/23 07/20/25 07/20/25 History mcg (1,000 unit) tablet albuterol sulfate 90 mcg/actuation 2 puff inhalation QID PRN 05/17/24 07/20/25 Unknown History aerosol inhaler SOB/wheezing budesonide-formoterol HFA 160 2 puff inhalation BID PRN SOB 05/17/24 07/20/25 Unknown History mcg-4.5 mcg/actuation aerosol inhaler (Symbicort) diltiazem HCl 300 mg 300 mg PO DAILY 07/16/25 07/20/25 07/20/25 History capsule,extended release 24 hr (Cartia XT) famotidine 20 mg tablet 20 mg PO DAILY PRN GERD/Acid Reflux 07/16/25 07/20/25 Unknown History insulin lispro 100 unit/mL 1 sliding scale dose subcut TIDAC 07/16/25 07/20/25 07/20/25 History subcutaneous pen (Humalog KwikPen (U-100) Insulin) pantoprazole 40 mg tablet,delayed 40 mg PO DAILY@0630 07/16/25 07/20/25 07/20/25 History release semaglutide 2 mg/dose (8 mg/3 mL) 2 mg subcut [facility] 07/16/25 07/20/25 07/08/25 History subcutaneous pen injector (Ozempic) Physical Exam Vital Signs: Vital Signs: Last Vital Signs Temp 99.5 F 08/06/25 14:00 Pulse 94 08/06/25 14:00 Resp 29 H 08/06/25 14:00 BP 93/52 L 08/06/25 14:00 Pulse Ox 90 L 08/06/25 14:00 O2 Del Method BiPAP 08/06/25 14:00 O2 Flow Rate 15 08/05/25 20:54 FiO2 60 08/06/25 14:00 Oxygen Flow Rate 15 08/05/25 20:54 BMI result Body Mass Index 34.6 Const: General: cooperative HEENT: Head: Yes normal to inspection Face and sinus: Yes normal facial exam Mouth: Normal oral and palatal mucosa present Teeth and gingiva: dentition normal Eyes: General: appearance normal, both eyes and all related structures Pupils: Equal, round and reactive pupils present Resp: Effort & Inspection: decreased respiratory effort and tachypneic Cardio: Rate: regular rate Rhythm: regular rhythm GI: Palpation (GI): Soft to palpation and nontender : General: Yes no CVA tenderness Back/Spine/Pelvis: Back: no CVA tenderness Skin: General skin exam: no rashes or lesions noted Neuro: General: moves all extremities Cranial nerves: Yes Equal, round and reactive pupils present Extrem: General: Yes normal to inspection Psych: Appearance: grossly normal Results Labs 08/06/25 05:27 08/06/25 05:27 Labs: Short CBC 08/05/25 08/06/25 Range/Units 23:19 05:27 WBC 2.6 L 2.2 L (4.8-10.8) X10*3/uL Hgb 7.4 L 6.3 L* (12.0-16.0) g/dl Hct 22.7 L 19.3 L* (37.0-47.0) % Plt Count 20 L* 17 L* (160-400) X10*3/uL BMP 08/05/25 08/05/25 08/06/25 20:05 23:19 05:27 Sodium 145 147 H 146 H Potassium 5.6 H 5.4 H 5.5 H Chloride 112 H 111 H 112 H Carbon Dioxide 23 24 23 BUN 108 H 111 H 117 H Creatinine 1.94 H 1.97 H 2.22 H Calcium 7.9 L 7.9 L 7.8 L Liver Function 08/05/25 08/06/25 Range/Units 20:05 05:27 Total Bilirubin 0.5 0.8 (0.0-1.0) mg/dL AST 76 H 71 H (5-31) U/L ALT 48 H 36 H (0-31) U/L Alkaline Phosphatase 86 69 (39-117) U/L Albumin 2.3 L 2.8 L (3.5-5.0) g/dL Microbiology Microbiology Results: Microbiology 08/06/25 05:42 Sputum - Suctioned Gram Stain - Final 07/20/25 12:15 Blood - Venous Blood Culture - Final No growth after 5 days. 07/20/25 12:15 Blood - Venous Blood Culture - Final No growth after 5 days. Assessment and Plan (1) Hypotension: Status: Acute (2) Lung infiltrate: Status: Acute Plan She has now RLL infiltrate. She has had about 20 days antibiotics including her earlier admission They are likely causing pancytopenia I see aspirate gram stain and culture sputum pending. Would stop antibiotics if no growth particularly.
[2025-08-06] MEDS: Etomidate 20 MG/10 ML VIAL IVPUSH (15:24)
--- NOTE | 2025-08-06 15:45 | PC.RT ---
intubated in icu for hypoxic resp fail. unable to pass 7.5 or 6.0 ETT. Intubated with 5.5 ETT. positive color change on ezcap. placement of ETT verified by CXR. patient with no cough or gag due to intubating meds. suctioned for moderate amount of pink frothy secretions.
--- NOTE | 2025-08-06 15:51 | W.PM.CCHP ---
Procedures Date of Service Date of Service: 08/06/25 Intubation Intubation Comments: Patient has tracheomalacia and is s/p tracheal reconstruction surgery. Had difficulty passing higher sized tube, tried, 7.5, 6.0 and later could pass 5.5 tube Consent for Procedure: Elective - informed consent obtained Time out performed: Yes Sedative: etomidate Mg given: 20 Paralytic: succinylcholine Mg given: 100 Laryngoscope: fiber optic video scope ET tube size: 5.5 ET tube uncuffed: No Tube placement confirmation: visualized tube passing through cords, equal breath sounds bilaterally, no breath sounds over epigastrium and confirmation by capnometry Patient tolerated procedure: well and no complications
[2025-08-06 17:15] LABS: OBS Int Ctl Valid YES; OBS1 POSITIVE (NEGATIVE)
[2025-08-06 17:35] LABS: Glucose, Whole Blood 219 mg/dL (60-115)
[2025-08-06 18:23] LABS: Mean Corpuscular HGB Conc 32.6 g/dl (31.0-35.0); NRBC Abs Auto 0.000 X10*3/uL (0.0-0.012); NRBC Pct Auto 0.0 /100WBC (0.0-0.2)
[2025-08-06 18:25] LABS: Mean Corpuscular Hemoglobin 27.1 pg (27.0-33.0); Mean Corpuscular Volume 83.2 fL (80.0-98.0); Red Blood Count 2.14 X10*6/uL (4.20-5.50)
[2025-08-06 18:36] LABS: Troponin-I High Sensitivity 2305.7 ng/L (<3.5-17.0)
[2025-08-06 18:49] LABS: Hematocrit 17.8 % (37.0-47.0); Hemoglobin 5.8 g/dl (12.0-16.0); PLT ABN DIST 1
[2025-08-06 18:50] LABS: Platelet Count 16 X10*3/uL (160-400)
[2025-08-06 18:51] LABS: White Blood Count 2.8 X10*3/uL (4.8-10.8)
--- NOTE | 2025-08-06 19:07 | PC.NURSE ---
Assumed care for pt at 0700. Pt on BiPAP: 20/04 at 50%. Pt having increased WOB, RR 30-40s despite prn fentanyl utilized. At 0800 pt receiving 1 unit of RBC transfused per TAR. Briefly on precedex gtt per NOV for anxiety. Family called to bedside, updated by MD - decision made to intubate. Patient intubated at 1535 with 5.5 ETT, 23cm @ the lip. 4mg versed, 20 etomidate, 100mg succ used for intubation per nov. OG tube placed, CXR obtained to verify placement of ETT & OGT - see report. Pt sedated on propofol see NOV. DBP sustaining < 40 causing MAP less than 60 - MD aware. Levophed gtt titrated for SBP goal > 100 per MD. Pt on ACVC + settings - see vent assessment. Pt incontinent of dark liquid stool- FMS placed. Stool occult +. Connell remains in place, decreasing urine output throughout shift, pt currently anuric - MD aware. Respiratory panel collected, see results. Q2h repositioning and oral care completed. Plan of care ongoing.
[2025-08-06 19:37] LABS: Alanine Aminotransferase 27 U/L (0-31); Albumin Level 3.4 g/dL (3.5-5.0); Alkaline Phosphatase 59 U/L (39-117); Anion Gap 17 (12-20); Aspartate Amino Transferase 70 U/L (5-31); Blood Urea Nitrogen 126 mg/dL (9-16); Calcium 7.7 mg/dL (8.4-10.2); Carbon Dioxide 23 mmol/L (22-29); Chloride 113 mmol/L (96-108); Creatinine Clr Calc Pharmacy 18.5; Estimated Glomerular Filt Rate 16; Potassium 5.6 mmol/L (3.3-5.1); Sodium 147 mmol/L (135-145); Total Protein 5.1 g/dL (6.5-8.0)
[2025-08-06] MEDS: Calcium Gluconate/NaCl,Iso-Osm 2 GM/100 ML PLAST..BAG IV (20:04)
[2025-08-06 21:39] LABS: Glucose, Whole Blood 264 mg/dL (60-115)
[2025-08-07] VITALS (69 sets, daily range): BP systolic 63–154; BP diastolic 23–66; PULSE 98–115; RESP 13–22; TEMP 35–37.5; O2SAT 78–97; BMI 35.6
[2025-08-07] LABS: Glucose, Whole Blood 310 mg/dL (60-115)
--- NOTE | 2025-08-07 | ECG_ITS ---
Test Reason : NSTEMI Blood Pressure : */* mmHG Vent. Rate : 114 BPM Atrial Rate : 114 BPM P-R Int : 152 ms QRS Dur : 70 ms QT Int : 294 ms P-R-T Axes : 42 43 109 degrees QTcB Int : 405 ms Sinus tachycardia Nonspecific T wave abnormality Abnormal ECG When compared with ECG of 05-Aug-2025 20:44, No significant change was found Referred By: Reggie Smallwood Electronically Signed By: SCOTTIE MONROY
[2025-08-07] MEDS: Albumin Human 25 % 100 ML IV ×2 (00:13→05:01)
[2025-08-07 00:28] LABS: Hematocrit 28.2 % (37.0-47.0); Hemoglobin 9.5 g/dl (12.0-16.0); Mean Corpuscular HGB Conc 33.7 g/dl (31.0-35.0); Mean Corpuscular Hemoglobin 28.0 pg (27.0-33.0); Mean Corpuscular Volume 83.2 fL (80.0-98.0); NRBC Abs Auto 0.000 X10*3/uL (0.0-0.012); NRBC Pct Auto 0.0 /100WBC (0.0-0.2); PLT CLUMP 1; Red Blood Count 3.39 X10*6/uL (4.20-5.50)
[2025-08-07 00:29] LABS: WBC ABN SCTR FOR CBC 1
[2025-08-07 00:50] LABS: Anion Gap 20 (12-20); Blood Urea Nitrogen 125 mg/dL (9-16); Calcium 8.3 mg/dL (8.4-10.2); Carbon Dioxide 21 mmol/L (22-29); Chloride 113 mmol/L (96-108); Creatinine Clr Calc Pharmacy 16.7; Estimated Glomerular Filt Rate 14; Magnesium 2.4 mg/dL (1.6-2.6); Potassium 5.8 mmol/L (3.3-5.1); Sodium 148 mmol/L (135-145)
[2025-08-07 00:57] LABS: White Blood Count 3.5 X10*3/uL (4.8-10.8)
[2025-08-07 01:16] LABS: Band Neutrophils Percent 24 % (3-5); Lymphocytes Absolute Manual 0.1 X10*3/uL (1.2-4.9); Lymphocytes Percent Manual 2 % (20-40); Metamyelocytes Absolute 0.1 X10*3/uL; Metamyelocytes Percent 2 %; Monocytes Absolute Manual 0.1 X10*3/uL (0.1-1.2); Monocytes Percent Manual 2 % (2-11); Myelocytes Absolute 0.2 X10*/uL; Myelocytes Percent 6 %; Neutrophils Absolute Manual 3.1 X10*3/uL (2.0-8.3); Neutrophils Percent Manual 64 % (45-73); RBC Morphology NOTED
[2025-08-07 01:17] LABS: Burr Cells 2+ (3-5) /OIF; Schistocytes 1+ (0-2) /OIF
[2025-08-07 01:22] LABS: Dohle Bodies PRES; Toxic Granulation PRESENT
[2025-08-07 01:23] LABS: Platelet Count 34 X10*3/uL (160-400)
[2025-08-07 04:47] LABS: VBG HCO3 26 mmol/L (22-26); VBG O2 % Saturation 99.0 %
[2025-08-07 05:23] LABS: Glucose, Whole Blood 349 mg/dL (60-115)
[2025-08-07 05:33] LABS: Hematocrit 24.0 % (37.0-47.0); Hemoglobin 8.3 g/dl (12.0-16.0); Mean Corpuscular HGB Conc 34.6 g/dl (31.0-35.0); Mean Corpuscular Hemoglobin 28.5 pg (27.0-33.0); Mean Corpuscular Volume 82.5 fL (80.0-98.0); NRBC Abs Auto 0.030 X10*3/uL (0.0-0.012); PLT CLUMP 1; Red Blood Count 2.91 X10*6/uL (4.20-5.50)
[2025-08-07 05:34] LABS: ABG Refer to POC result
[2025-08-07 05:34] LABS: NRBC Pct Auto 1.1 /100WBC (0.0-0.2); WBC ABN SCTR FOR CBC 1
[2025-08-07 05:37] LABS: ABG HCO3 28 mmol/L (22-26); ABG O2 % Saturation 72.0 %
[2025-08-07 05:40] LABS: INTERNATIONAL NORM RATIO 1.7 (0.9-1.1); Prothrombin Time 20.5 SEC (11.2-13.5)
[2025-08-07 05:51] LABS: Alanine Aminotransferase 29 U/L (0-31); Albumin Level 3.5 g/dL (3.5-5.0); Alkaline Phosphatase 73 U/L (39-117); Anion Gap 20 (12-20); Aspartate Amino Transferase 78 U/L (5-31); Blood Urea Nitrogen 128 mg/dL (9-16); Calcium 8.2 mg/dL (8.4-10.2); Carbon Dioxide 24 mmol/L (22-29); Chloride 111 mmol/L (96-108); Creatinine Clr Calc Pharmacy 15.9; Estimated Glomerular Filt Rate 13; Magnesium 2.4 mg/dL (1.6-2.6); Potassium 5.4 mmol/L (3.3-5.1); Sodium 150 mmol/L (135-145); Total Protein 5.1 g/dL (6.5-8.0)
--- NOTE | 2025-08-07 05:57 | PC.NURSE ---
Assumed care 1900 - pt remains intubated and sedated. Propofol infusing per MAR. On ACVC settings - see vent assessment. SpO2 86-87%, Fio2 increased to 100%. SR/ST on tele, HR 90-100s. Levophed titrated to MAP goal 50-60? per PARTICLE BOARD SUPERVISOR Behzad. Connell in place, urine output 0-10 ml/hr. Pt with large amount of liquid tarry stool, fecal management system in place. Multiple?blood products administered this shift - see TAR.? GI consult?placed per [employer]LE [employer]ARD SUPERVISOR. DTI to sacrum, new triad and foam applied. Hygiene provided, repositioned Q2H.?
[2025-08-07 06:31] LABS: Atypical Lymphs Percent Manual 1 % (0-6); Band Neutrophils Percent 16 % (3-5); Lymphocytes Percent Manual 4 % (20-40); Metamyelocytes Percent 2 %; Monocytes Percent Manual 3 % (2-11); Neutrophils Percent Manual 74 % (45-73)
[2025-08-07] MEDS: metroNIDAZOLE/NS 500 MG/100 ML PIGGYBACK 100 MG IV ×3 (06:33→22:46)
[2025-08-07 06:37] LABS: RBC Morphology NOTED
[2025-08-07 06:38] LABS: Acanthocytes 1+ (0-2) /OIF; Burr Cells 3+ (>5) /OIF
[2025-08-07 06:39] LABS: Lymphocytes Absolute Manual 0.1 X10*3/uL (1.2-4.9); Metamyelocytes Absolute 0.1 X10*3/uL; Monocytes Absolute Manual 0.1 X10*3/uL (0.1-1.2); Neutrophils Absolute Manual 2.4 X10*3/uL (2.0-8.3); Platelet Count 27 X10*3/uL (160-400); White Blood Count 2.7 X10*3/uL (4.8-10.8)
[2025-08-07] MEDS: 0.9 % Sodium Chloride Flush 3 ML SYRINGE IVFLUSH ×3 (07:35→22:48)
[2025-08-07] MEDS: Chlorhexidine Gluc Oral Rinse 15 ML MOUTHWASH BUCCAL ×3 (07:35→21:15)
[2025-08-07] MEDS: Albuterol/Iprat 2.5/0.5MG 3 ML AMPUL.NEB INHALE ×4 (08:06→19:30)
--- NOTE | 2025-08-07 08:08 | P.CNGI_ITS ---
History of Present Illness Data of Consult Service Date: 08/07/25 Primary Care Provider: Garland Vázquez MD HPI 74-year-old female history of COPD, ALYSIA, obesity, coronary artery disease s/p stent, diastolic congestive heart failure, diabetes mellitus, paroxysmal atrial fibrillation (on Eliquis), lung CA s/p lobectomy in 2009, tracheal stenosis s/p tracheoplasty who presented to emergency department on 07/20/25 with worsening dyspnea admitted to hospital Medicine for hypoxic respiratory failure secondary to bibasilar pneumonia likely aspiration component. Cultures negative to date. Abx coverage since admission piperacillin-tazobactam 07/30-08/02 to ampicillin-sulbactam 08/02 due to thrombocytopenia; and finally today levofloxacin + metronidazole 08/05. MRSA neg; d/c'ed vancomycin 07/30- 08/02 In the last 48 hours, patient continued to complain of worsening shortness of breath. ?She was placed on Lasix drip yesterday. Cardiology was consulted today, who recommended she to stop IV Lasix. ?Respiratory also consulted today who recommended repeat chest CT. Tonight, rapid response was called due to worsening hypoxia and increased work of breathing. ?Patient was severely tachypneic, hypoxic to low 80s, require frequent deep nasal suctioning with improvement of hypoxia. Chest CT from earlier reviewed, with worsening right pneumonia noted. Attempted to use high-flow nasal cannula but patient was not able to tolerated, venous gas was appropriate.? Will use BiPAP support due to work of breathing. 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 Father No problems noted. Brother Substance use disorder Brother Substance use disorder Family history: reviewed and not pertinent Surgical History Surgical History History of carpal tunnel surgery History of cholecystectomy History of lobectomy of lung Status post tracheoplasty History of cardiac cath Social History Social History Household Members: Family Household Members Other:: 2 Housing: House Do you presently have visiting nurse or other home services: No Alcohol intake: current Alcohol intake frequency: holidays/special occasions only Alcohol type: wine Comment: weddings Patient Tobacco Use Status: Former Tobacco user Tobacco use type: Cigarette Years Smoked: 3 stopped 1992 e-Cigarette/Vaping Use: Never Used Second Hand Smoke Exposure: Yes Advance Directives Date on File: 06/29/23 service: No Current occupational status: retired Cognitive needs: No Hearing needs: No Vision needs: No Meds Allergies Allergy/AdvReac Type Severity Reaction Status Date / Time Latex, Natural Rubber Allergy Severe blisters Verified 07/20/25 11:18 Sulfa (Sulfonamide Allergy Mild ITCHING, Verified 07/20/25 11:18 Antibiotics) (SULFA rash (SULFONAMIDE ANTIBIOTICS)) nystatin Allergy Unknown rash Verified 07/20/25 11:18 isosorbide (From Imdur) AdvReac Unknown HEADACHES, Verified 07/20/25 11:18 headache tizanidine AdvReac Unknown weakness, Verified 07/20/25 11:18 Hellucination Active Medications: Current Medications Acetaminophen (Acetaminophen 325 Mg Tablet) 650 mg PO Q6H PRN PRN Reason: Pain, Mild 1-3,fever,headache Last Admin: 07/30/25 04:12 Dose: 650 mg Albuterol Sulfate (Albuterol Sulfate (0.083%) 2.5 Mg/3 Ml Vial.Neb) 2.5 mg INHALE Q2H PRN PRN Reason: Shortness of Breath/Wheezing Albuterol/Ipratropium (Albuterol/Iprat 2.5/0.5mg 3 Ml Ampul.Neb) 3 ml INHALE RQ4H WHILE AWAKE [facility] Last Admin: 08/07/25 08:06 Dose: 3 ml Amlodipine Besylate (Amlodipine Besylate 10 Mg Tablet) 10 mg PO DAILY LOU; Protocol On Hold: 08/05/25 22:41 Last Admin: 08/05/25 07:46 Dose: 10 mg Apixaban (Apixaban 5 Mg Tablet) 5 mg PO BID [facility] On Hold: 08/05/25 23:36 Last Admin: 08/05/25 21:24 Dose: Not Given Atorvastatin Calcium (Atorvastatin Calcium 80 Mg Tablet) 80 mg PO BEDTIME LOU Last Admin: 08/06/25 21:22 Dose: Not Given Benzocaine (Throat Lozenge, Medicated Lozenge) 1 lozenge MUCOUS MEM Q2H PRN PRN Reason: Sore Throat Last Admin: 07/28/25 21:10 Dose: 1 lozenge Buspirone HCl (Buspirone Hcl 10 Mg Tablet) 10 mg PO BID [facility] Last Admin: 08/07/25 07:23 Dose: Not Given Carvedilol (Carvedilol 12.5 Mg Tablet) 12.5 mg PO BID [facility]; Protocol Last Admin: 08/07/25 07:23 Dose: Not Given Chlorhexidine Gluconate (Chlorhexidine Gluc Oral Rinse 15 Ml Mouthwash) 15 ml BUCCAL TID [facility] Last Admin: 08/07/25 07:35 Dose: 15 ml Dextrose (Dextrose 50 % 25 Gm/50 Ml Syringe) 25 gm IVPUSH Q15M PRN; Protocol PRN Reason: per Hypoglycemia Standing Ord. Docusate Sodium (Docusate Sodium 100 Mg Capsule) 100 mg PO BID PRN PRN Reason: Constipation Last Admin: 07/27/25 20:56 Dose: 100 mg Escitalopram Oxalate (Escitalopram Oxalate 10 Mg Tablet) 15 mg PO DAILY [facility] Last Admin: 08/07/25 07:23 Dose: Not Given Fentanyl (Fentanyl Citrate/Pf 100 Mcg/2 Ml Vial) 25 mcg IVPUSH Q2H PRN; Protocol PRN Reason: WOB Last Admin: 08/06/25 11:31 Dose: 25 mcg Glucose (Glucose Gel 15 Gm Gel..Gram.) 15 gm PO Q15M PRN; Protocol PRN Reason: per Hypoglycemia Standing Ord. Guaifenesin (Guaifenesin 200 Mg/10 Ml 10 Ml Liquid) 10 ml PO Q4H PRN PRN Reason: Cough Last Admin: 07/31/25 20:13 Dose: 10 ml Hydralazine HCl (Hydralazine Hcl 25 Mg Tablet) 25 mg PO TID [facility]; Protocol On Hold: 08/05/25 22:41 Last Admin: 08/05/25 21:29 Dose: Not Given Levofloxacin (Levaquin) 750 mg in 150 mls @ 100 mls/hr IV Q48H LOU Last Infusion: 08/05/25 18:08 Dose: Infused Metronidazole (Flagyl) 500 mg in 100 mls @ 100 mls/hr IV Q8H LOU Last Infusion: 08/07/25 07:36 Dose: Infused Norepinephrine Bitartrate (Levophed) 8 mg in 250 mls @ 0 mls/hr IVCONT .Q0M LOU; Protocol Last Admin: 08/07/25 06:35 Dose: 0.23 mcg/kg/min, 39.07 mls/hr Dexmedetomidine HCl (Precedex) 400 mcg in 100 mls @ 0 mls/hr IVCONT .Q0M LOU; Protocol Last Titration: 08/07/25 04:05 Dose: Infused Albumin Human (Kedbumin 25 %) 100 mls @ 100 mls/hr IV Q6H [facility] Stop: 08/07/25 12:59 Last Infusion: 08/07/25 06:07 Dose: Infused Propofol (Diprivan) 1,000 mg in 100 mls @ 0 mls/hr IVCONT .Q0M LOU; Protocol Last Admin: 08/07/25 05:25 Dose: 30 mcg/kg/min, 16.47 mls/hr Insulin Glargine (Insulin Glargine,Hum.Rec.Anlog 100 Unit/Ml 10 Ml Vial) 28 unit SUBCUT BEDTIME [facility] Last Admin: 08/06/25 21:41 Dose: Not Given Insulin Human Lispro (Insulin Lispro 100 Unit/Ml 3 Ml Vial) 0 unit SUBCUT Q6H [facility]; Protocol Last Admin: 08/07/25 05:25 Dose: 10 unit Meclizine HCl (Meclizine Hcl 12.5 Mg Tablet) 12.5 mg PO TID PRN PRN Reason: dizziness Methylprednisolone Sodium Succinate (Methylprednisolone Sod Succ 125 Mg/2 Ml Vial) 60 mg IVPUSH Q6H [facility] Last Admin: 08/07/25 05:01 Dose: 60 mg Montelukast Sodium (Montelukast Sodium 10 Mg Tablet) 10 mg PO BEDTIME [facility] Last Admin: 08/06/25 21:22 Dose: Not Given Nitroglycerin (Nitroglycerin 0.4 Mg Tab.Subl) 0.4 mg SUBLINGUAL Q5M PRN PRN Reason: chest pain Ondansetron HCl (Ondansetron Hcl 4 Mg/2 Ml Vial) 4 mg IVPUSH Q4H PRN PRN Reason: Nausea and Vomiting Last Admin: 08/05/25 01:01 Dose: 4 mg Pantoprazole Sodium (Pantoprazole Sodium 40 Mg/10 Ml Vial) 40 mg IVPUSH BID@0630,1630 [facility] Last Admin: 08/07/25 05:25 Dose: 40 mg Potassium Chloride (Potassium Chloride Er 20 Meq Tab.Er.Prt) 40 meq PO BID [facility] On Hold: 08/05/25 23:36 Last Admin: 08/05/25 21:30 Dose: Not Given Sodium Chloride (0.9 % Sodium Chloride Flush 3 Ml Syringe) 3 ml IVFLUSH QSHIFT [facility] Last Admin: 08/07/25 07:35 Dose: 3 ml Home Medications ?Medication ?Instructions ?Recorded ?Confirmed ?Last Taken ?Type cholecalciferol (vitamin D3) 25 25 mcg PO DAILY 07/20/25 07/20/25 History mcg (1,000 unit) tablet albuterol sulfate 90 mcg/actuation 2 puff inhalation Q ID PRN 05/17/24 07/20/25 Unknown History aerosol inhaler SOB/wheezing budesonide-formoterol HFA 160 2 puff inhalation BID MS N SOB 05/17/24 07/20/25 Unknown History mcg-4.5 mcg/actuation aerosol inhaler (Symbicort) diltiazem HCl 300 mg 300 mg PO DAILY 07/16/2507/20/25 History capsule,extended release 24 hr (Cartia XT) famotidine 20 mg tablet 20 mg PO DAILY PRN GERD/Acid Reflux 07/16/25 07/20/25 Unknown History insulin lispro 100 unit/mL 1 sliding scale dose subcut TIDAC 07/16/25 07/20/25 07/20/25 History subcutaneous pen (Humalog KwikPen (U-100) Insulin) pantoprazole 40 mg tablet,delayed 40 mg PO DAILY@0630 07/16/25 07/20/25 07/20/25 History release semaglutide 2 mg/dose (8 mg/3 mL) 2 mg subcut [id number] 07/1607/20/25 07/08/25 History subcutaneous pen injector (Ozempic) Physical Exam 2 Vital Signs: Vital Signs: Last Vital Signs Temp 99.1 F 08/07/25 06:00 Pulse 110 H 08/07/25 06:35 Resp 21 H 08/07/25 06:00 BP 122/36 L 08/07/25 06:35 Pulse Ox 87 L 08/07/25 07:57 O2 Del Method Mechanical Ventil ation 08/07/25 06:00 O2 Flow Rate 15 08/05/25 20:54 FiO2 100 08/07/25 07:57 Oxygen Flow Rate 15 08/05/25 20:54 BMI result Body Mass Index 35.6 Results Labs 08/07/25 04:37 08/07/25 04:37 Labs: Short CBC 08/06/25 08/07/25 08/07/25 Range/Units 18:03 00:06 04:37 WBC 2.8 L 3.5 L 2.7 L (4.8-10.8) X10*3/uL Hgb 5.8 L* 9.5 L D 8.3 L (12.0-16.0) g/dl Hct 17.8 L* 28.2 L D 24.0 L (37.0-47.0) % Plt Count 16 L* 34 L D 27 L (160-400) X10*3/uL BMP 08/06/25 08/07/25 08/07/25 18:03 00:06 04:37 Sodium 147 H 148 H 150 H Potassium 5.6 H 5.8 H 5.4 H Chloride 113 H 113 H 111 H Carbon Dioxide 23 21 L 24 BUN 126 H 125 H 128 H Creatinine 2.82 H 3.13 H 3.33 H Calcium 7.7 L 8.3 L D 8.2 L Liver Function 08/06/25 08/07/25 Range/Units 18:03 04:37 Total Bilirubin 0.9 1.2 H (0.0-1.0) mg/dL AST 70 H 78 H (5-31) U/L ALT 27 29 (0-31) U/L Alkaline Phosphatase 59 73 (39-117) U/L Albumin 3.4 L 3.5 (3.5-5.0) g/dL Microbiology Microbiology Results: Microbiology 08/05/25 20:05 Blood - Venous Blood Culture - Preliminary No growth after 24 hours. 08/06/25 05:42 Sputum - Suctioned Gram Stain - Final 07/20/25 12:15 Blood - Venous Blood Culture - Final No growth after 5 days. 07/20/25 12:15 Blood - Venous Blood Culture - Final No growth after 5 days. Procedures Date of Service Date of Service: 08/07/25
--- NOTE | 2025-08-07 08:50 | P.PNCC_ITS ---
Subjective Subjective Date of Service: 08/07/25 Interval History: Remains on ventilator support On propofol for sedation On Levophed for vasopressor support Critical Care Time (minutes): 35 Physical Exam 2 Vital Signs: Vital Signs: Last Vital Signs Temp 99.1 F 08/07/25 08:00 Pulse 108 H 08/07/25 08:08 Resp 21 H 08/07/25 08:08 BP 130/45 L 08/07/25 08:00 Pulse Ox 87 L 08/07/25 08:00 O2 Del Method Mechanical Ventil ation 08/07/25 08:00 O2 Flow Rate 15 08/05/25 20:54 FiO2 100 08/07/25 08:08 Oxygen Flow Rate 15 08/05/25 20:54 BMI result Body Mass Index 35.6 General: acute distress, ill appearing and tired appearing Nutritional Appearance: well nourished and overweight Eyes: appearance normal, both eyes and all related structures; Alignment and Position: alignment normal and position normal Neck: No lymphadenopathy, no thyromegaly Resp: bilateral air entry equal, occasional added sounds present Cardio: Regular rate, regular rhythm; Heart sounds: S1 normal heart sound present and S2 normal heart sound present GI: soft, nontender, no guarding, no hepatosplenomegaly : bladder normal to inspection, bladder normal to palpation, no renal angle tenderness Skin: no rashes or lesions noted and elasticity normal Neuro: oriented to person, oriented to place, oriented to time and moves all extremities Objective Data Labs 08/07/25 04:37 08/07/25 04:37 Labs: Laboratory Results - last 24 hr 08/04/25 08/06/25 08/06/25 14:19 05:27 11:09 WBC RBC Hgb Hct MCV MCH MCHC RDW Plt Count MPV Immature Gran % (Auto) Neut % (Auto) Lymph % (Auto) [place] % (Auto) Eos % (Auto) Baso % (Auto) Lymph # (Auto) [place] # (Auto) Eos # (Auto) Baso # (Auto) Abs Immat Gran (auto) Absolute Neuts (auto) Absolute Nucleated RBC Nucleated RBC % (auto) Neutrophils % (Manual) Band Neutrophils % Lymphocytes % (Manual) Atypical Lymphs % (Man) Monocytes % (Manual) Metamyelocytes % Myelocytes % Abs Neuts (Manual) Lymphocytes # (Manual) Monocytes # (Manual) Metamyelocytes # Myelocytes # Nucleated RBCs Toxic Granulation Dohle Bodies Platelet Estimate Plt Morphology Comment RBC Morphology [place] Cells Acanthocytes (Spur) Schistocytes Smear Path Review SEE NOTE ESR 46 H Absolute Retic 0.013 L Percent Retic 0.5 Immature Retic Fraction 9.7 Retic Hgb Equivalent 35.6 H PT INR O2 Saturation ABG pH at Pt Temp ABG pCO2 at Pt Temp ABG pO2 at Pt Temp ABG HCO3 ABG Base Excess (Actual) VBG pH VBG pCO2 VBG pO2 VBG HCO3 VBG O2 Saturation VBG Base Excess Sodium Potassium Chloride Carbon Dioxide Anion Gap BUN Creatinine Estim Creat Clear Calc Estimated GFR POC Glucose Random Glucose Calcium Phosphorus Magnesium Total Bilirubin AST ALT Alkaline Phosphatase Lactate Dehydrogenase Troponin I High Sens C-Reactive Protein NT-Pro-B Natriuret Pep Total Protein Albumin Stool Occult Blood Blood Type A Positive Antibody Screen NEGATIVE JENNIFER, Polyspecific NEGATIVE Positive JENNIFER Work-up TNP Crossmatch See Detail 08/06/25 08/06/25 08/06/25 11:10 11:20 16:48 WBC RBC Hgb Hct MCV MCH MCHC RDW Plt Count MPV Immature Gran % (Auto) Neut % (Auto) Lymph % (Auto) [place] % (Auto) Eos % (Auto) Baso % (Auto) Lymph # (Auto) [place] # (Auto) Eos # (Auto) Baso # (Auto) Abs Immat Gran (auto) Absolute Neuts (auto) Absolute Nucleated RBC Nucleated RBC % (auto) Neutrophils % (Manual) Band Neutrophils % Lymphocytes % (Manual) Atypical Lymphs % (Man) Monocytes % (Manual) Metamyelocytes % Myelocytes % Abs Neuts (Manual) Lymphocytes # (Manual) Monocytes # (Manual) Metamyelocytes # Myelocytes # Nucleated RBCs Toxic Granulation Dohle Bodies Platelet Estimate Plt Morphology Comment RBC Morphology Ruby Cells Acanthocytes (Spur) Schistocytes Smear Path Review ESR Absolute Retic Percent Retic Immature Retic Fraction Retic Hgb Equivalent PT INR O2 Saturation ABG pH at Pt Temp ABG pCO2 at Pt Temp ABG pO2 at Pt Temp ABG HCO3 ABG Base Excess (Actual) VBG pH VBG pCO2 VBG pO2 VBG HCO3 VBG O2 Saturation VBG Base Excess Sodium Potassium Chloride Carbon Dioxide Anion Gap BUN Creatinine Estim Creat Clear Calc Estimated GFR POC Glucose 221 H Random Glucose Calcium Phosphorus Magnesium Total Bilirubin AST ALT Alkaline Phosphatase Lactate Dehydrogenase 730 H Troponin I High Sens C-Reactive Protein 28.41 H NT-Pro-B Natriuret Pep Total Protein Albumin Stool Occult Blood POSITIVE Blood Type Antibody Screen JENNIFER, Polyspecific Positive JENNIFER Work-up Crossmatch 08/06/25 08/06/25 08/06/25 17:30 18:03 21:35 WBC 2.8 L RBC 2.14 L Hgb 5.8 L* Hct 17.8 L* MCV 83.2 MCH 27.1 MCHC 32.6 RDW 21.8 H Plt Count 16 L* MPV Not Reportable Immature Gran % (Auto) Neut % (Auto) Lymph % (Auto) [place] % (Auto) Eos % (Auto) Baso % (Auto) Lymph # (Auto) [place] # (Auto) Eos # (Auto) Baso # (Auto) Abs Immat Gran (auto) Absolute Neuts (auto) Absolute Nucleated RBC 0.000 Nucleated RBC % (auto) 0.0 Neutrophils % (Manual) Band Neutrophils % Lymphocytes % (Manual) Atypical Lymphs % (Man) Monocytes % (Manual) Metamyelocytes % Myelocytes % Abs Neuts (Manual) Lymphocytes # (Manual) Monocytes # (Manual) Metamyelocytes # Myelocytes # Nucleated RBCs Toxic Granulation Dohle Bodies Platelet Estimate Plt Morphology Comment RBC Morphology [place] Cells Acanthocytes (Spur) Schistocytes Smear Path Review ESR Absolute Retic Percent Retic Immature Retic Fraction Retic Hgb Equivalent PT INR O2 Saturation ABG pH at Pt Temp ABG pCO2 at Pt Temp ABG pO2 at Pt Temp ABG HCO3 ABG Base Excess (Actual) VBG pH VBG pCO2 VBG pO2 VBG HCO3 VBG O2 Saturation VBG Base Excess Sodium 147 H Potassium 5.6 H Chloride 113 H Carbon Dioxide 23 Anion Gap 17 BUN 126 H Creatinine 2.82 H Estim Creat Clear Calc 18.5 Estimated GFR 16 POC Glucose 219 H 264 H Random Glucose 231 H Calcium 7.7 L Phosphorus Magnesium Total Bilirubin 0.9 AST 70 H ALT 27 Alkaline Phosphatase 59 Lactate Dehydrogenase Troponin I High Sens 2305.7 H* D C-Reactive Protein NT-Pro-B Natriuret Pep Total Protein 5.1 L Albumin 3.4 L Stool Occult Blood Blood Type Antibody Screen JENNIFER, Polyspecific Positive JENNIFER Work-up Crossmatch 08/06/25 08/07/25 08/07/25 23:55 00:06 04:37 WBC 3.5 L 2.7 L RBC 3.39 L D 2.91 L Hgb 9.5 L D 8.3 L Hct 28.2 L D 24.0 L MCV 83.2 82.5 MCH 28.0 28.5 MCHC 33.7 34.6 RDW 18.9 H 18.3 H Plt Count 34 L D 27 L MPV Not Reportable Not Reportable Immature Gran % (Auto) Cancelled Cancelled Neut % (Auto) Cancelled Cancelled Lymph % (Auto) Cancelled Cancelled [place] % (Auto) Cancelled Cancelled Eos % (Auto) Cancelled Cancelled Baso % (Auto) Cancelled Cancelled Lymph # (Auto) Cancelled Cancelled [place] # (Auto) Cancelled Cancelled Eos # (Auto) Cancelled Cancelled Baso # (Auto) Cancelled Cancelled Abs Immat Gran (auto) Cancelled Cancelled Absolute Neuts (auto) Cancelled Cancelled Absolute Nucleated RBC 0.000 0.030 H Nucleated RBC % (auto) 0.0 1.1 H Neutrophils % (Manual) 64 74 H Band Neutrophils % 24 H 16 H Lymphocytes % (Manual) 2 L 4 L Atypical Lymphs % (Man) 1 Monocytes % (Manual) 2 3 Metamyelocytes % 2 2 Myelocytes % 6 Abs Neuts (Manual) 3.1 2.4 Lymphocytes # (Manual) 0.1 L 0.1 L Monocytes # (Manual) 0.1 0.1 Metamyelocytes # 0.1 0.1 Myelocytes # 0.2 Nucleated RBCs 1 H Toxic Granulation PRESENT Dohle Bodies PRES Platelet Estimate DECREASED DECREASED Plt Morphology Comment NORMAL NOTED RBC Morphology NOTED NOTED Ruby Cells 2+ (3-5) 3+ (>5) Acanthocytes (Spur) 1+ (0-2) Schistocytes 1+ (0-2) Smear Path Review ESR Absolute Retic Percent Retic Immature Retic Fraction Retic Hgb Equivalent PT 20.5 H D INR 1.7 H O2 Saturation ABG pH at Pt Temp ABG pCO2 at Pt Temp ABG pO2 at Pt Temp ABG HCO3 ABG Base Excess (Actual) VBG pH VBG pCO2 VBG pO2 VBG HCO3 VBG O2 Saturation VBG Base Excess Sodium 148 H 150 H Potassium 5.8 H 5.4 H Chloride 113 H 111 H Carbon Dioxide 21 L 24 Anion Gap 20 20 BUN 125 H 128 H Creatinine 3.13 H 3.33 H Estim Creat Clear Calc 16.7 15.9 Estimated GFR 14 13 POC Glucose 310 H Random Glucose 299 H 343 H Calcium 8.3 L D 8.2 L Phosphorus 6.0 H 5.8 H Magnesium 2.4 2.4 Total Bilirubin 1.2 H AST 78 H ALT 29 Alkaline Phosphatase 73 Lactate Dehydrogenase Troponin I High Sens 7818.6 H* D C-Reactive Protein NT-Pro-B Natriuret Pep 7387.7 H Total Protein 5.1 L Albumin 3.5 Stool Occult Blood Blood Type Antibody Screen JENNIFER, Polyspecific Positive JENNIFER Work-up Crossmatch 08/07/25 08/07/25 08/07/25 04:40 05:17 05:27 WBC RBC Hgb Hct MCV MCH MCHC RDW Plt Count MPV Immature Gran % (Auto) Neut % (Auto) Lymph % (Auto) [place] % (Auto) Eos % (Auto) Baso % (Auto) Lymph # (Auto) [place] # (Auto) Eos # (Auto) Baso # (Auto) Abs Immat Gran (auto) Absolute Neuts (auto) Absolute Nucleated RBC Nucleated RBC % (auto) Neutrophils % (Manual) Band Neutrophils % Lymphocytes % (Manual) Atypical Lymphs % (Man) Monocytes % (Manual) Metamyelocytes % Myelocytes % Abs Neuts (Manual) Lymphocytes # (Manual) Monocytes # (Manual) Metamyelocytes # Myelocytes # Nucleated RBCs Toxic Granulation Dohle Bodies Platelet Estimate Plt Morphology Comment RBC Morphology [place] Cells Acanthocytes (Spur) Schistocytes Smear Path Review ESR Absolute Retic Percent Retic Immature Retic Fraction Retic Hgb Equivalent PT INR O2 Saturation 72.0 ABG pH at Pt Temp 7.41 ABG pCO2 at Pt Temp 44 ABG pO2 at Pt Temp 46 L* ABG HCO3 28 H ABG Base Excess (Actual) 3.9 VBG pH 7.69 H* VBG pCO2 22 VBG pO2 191 VBG HCO3 26 VBG O2 Saturation 99.0 VBG Base Excess 7.0 Sodium Potassium Chloride Carbon Dioxide Anion Gap BUN Creatinine Estim Creat Clear Calc Estimated GFR POC Glucose 349 H Random Glucose Calcium Phosphorus Magnesium Total Bilirubin AST ALT Alkaline Phosphatase Lactate Dehydrogenase Troponin I High Sens C-Reactive Protein NT-Pro-B Natriuret Pep Total Protein Albumin Stool Occult Blood Blood Type Antibody Screen JENNIFER, Polyspecific Positive JENNIFER Work-up Crossmatch Microbiology Microbiology Results: Microbiology 08/05/25 20:05 Blood - Venous Blood Culture - Preliminary No growth after 24 hours. 08/06/25 05:42 Sputum - Suctioned Gram Stain - Final 07/20/25 12:15 Blood - Venous Blood Culture - Final No growth after 5 days. 07/20/25 12:15 Blood - Venous Blood Culture - Final No growth after 5 days. Progress Note: A&P Assessment and plan (1) Acute kidney injury superimposed on CKD: Status: Acute (2) Aspiration pneumonia: Status: Acute (3) COPD (chronic obstructive pulmonary disease): Status: Acute (4) Acute encephalopathy: Status: Acute Plan 74-year-old female history of COPD, ALYSIA, obesity, coronary artery disease s/p stent, diastolic congestive heart failure, diabetes mellitus, paroxysmal atrial fibrillation (on Eliquis), lung CA s/p lobectomy in 2009, tracheal stenosis s/p tracheoplasty who presented to emergency department on 07/20/25 with worsening dyspnea admitted to hospital Medicine for hypoxic respiratory failure secondary to bibasilar pneumonia likely aspiration component more significantly on the right. Cultures negative to date. Abx coverage since admission piperacillin- tazobactam 07/30-08/02 to ampicillin-sulbactam 08/02 due to thrombocytopenia; and finally today levofloxacin + metronidazole 08/05. MRSA neg; d/c'ed vancomycin 07/30-07/08 Neuro: Acute encephalopathy possibly due to metabolic encephalopathy On propofol for sedation, on fentanyl drip for analgesia; Nimbex for paralytic On home buspirone and Lexapro Close neurological status monitoring in the ICU every hour Cardiac: A TTE done 2 days ago showing EF 70%, some diastolic dysfunction, normal RV function NSTEMI: has history of CAD Status post stent placement Troponins increased to 7800 from 800 yesterday Cardiology consult placed Paroxysmal atrial fibrillation: On carvedilol for rate control On Eliquis 5 mg b.i.d. for anticoagulation held since 09/02/2025 Cardiogenic shock: on levophed 0.23, will titrate to keep MAP above 65 Hypertension: On hydralazine 25 t.i.d., amlodipine 10 mg daily and carvedilol 12.5 b.i.d witheld Respiratory: Acute on chronic hypoxemic respiratory failure due to right lung pneumonia on top of underlying COPD. Patient had a repeat CT chest yesterday which showed increasing consolidation in the right lower lung when compared to CT on 08/02/2025 She had lobectomy in 2010 possibly on left side for lung nodule no chemo/radiation therapy, tracheomalacia s/p tracheoplasty in 2016. Intubated yesterday for worsening respiratory failure Currently on PRVC mode of ventilator FiO2 100 , peep 8 , TV:360 RR:20 Krnju-bos-brudl DuoNebs Solu-Medrol 60 mg q.8 hours we will decrease Solu-Medrol to daily GI: GI bleed: We will hold off on tube feeds for now GI consulted Pantoprazole 40mg IV BID had about 1.3 litres of bloody bowel movement Renal: Acute kidney injury possibly secondary to volume depletion, we will give her low-dose of fluids while closely monitoring her respiratory status Baseline creatinine normal, creatinine increased to 3.33 today anuric possibly needs renal replacement therapy We will closely monitor I's and O's Avoid nephrotoxic medications Hypernatremia: Secondary to diuresis We will start on D5 water Hyperkalemia: We will medically manage Heme: Pancytopenia: Hemoglobin 8.3, platelets 27 K; received 3 PRBC and 1 unit platelet yesterday Has a lower GI bleed Possibly medication induced versus sepsis induced Antibiotics switched from Zosyn to levofloxacin and Flagyl will add oseltamavir Endocrine: Blood sugars under control Sliding scale insulin as needed Infectious disease: Cultures remain negative so far Antibiotics switched to levofloxacin and Flagyl given pancytopenia Musculoskeletal: Decubitus ulcer prevention protocol Lines: Peripheral Prophylaxis: SCD, pantoprazole Critical care time spent is about 60 minutes on vent management, sedation management, parlaytic mamagement, hemodynamic monitoring, vasopressor management, review of labs and images and this time is excluding procedural time Quality Stroke Does the patient have a stroke diagnosis?: No VTE Prior VTE?: No VTE Risk Level:: Medical - moderate - high VTE Device Contraindication: N/A - Device Ordered VTE Drug Contraindication: N/A - Med Ordered
[2025-08-07 09:16] LABS: Venous Blood Gas Refer to POC result
[2025-08-07 09:18] LABS: Venous Blood Gas Refer to POC result
[2025-08-07 09:19] LABS: VBG HCO3 28 mmol/L (22-26); VBG O2 % Saturation 100.0 %
[2025-08-07 09:37] LABS: Chlamydia pneumoniae PCR Not Detected (Not Detect.); Coronavirus 229E PCR Not Detected (Not Detect.); Coronavirus HKU1 PCR Not Detected (Not Detect.); Coronavirus NL63 PCR Not Detected (Not Detect.); Coronavirus OC43 PCR Not Detected (Not Detect.); RSV PCR Not Detected (Not Detect.); Rhino/Enterovirus PCR Not Detected (Not Detect.)
--- NOTE | 2025-08-07 10:30 | HO.ANESPROP2 ---
HPI - Anesthesia Eval Consult details Narrative: 74 yr old female for upper endoscopy with Gold probe Moderate aortic stenosis: mean gradient 32.00, AV valve area 1.5 PMFSH Active Problems Active Problems: All Active Problems Acute encephalopathy (Acute) Lung infiltrate (Acute) Hypotension (Acute) Acute exacerbation of congestive heart failure (Acute) Pulmonary edema (Acute) Acute hypoxic respiratory failure (Acute) Thrombocytopenia (Acute) Pulmonary nodule (Acute) Microcytic anemia (Acute) Hypoxia (Acute) AG (acute kidney injury) (Acute) Aspiration pneumonia (Acute) Proteinuria (Acute) Acute kidney injury superimposed on CKD (Acute) PAD (peripheral artery disease) (Acute) Wrist pain, left (Acute) Right wrist pain (Acute) Acquired atrophy of kidney (Acute) COPD (chronic obstructive pulmonary disease) (Acute) GERD (gastroesophageal reflux disease) (Acute) Cough (Acute) Diabetic neuropathy (Acute) Claudication of both lower extremities (Acute) 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 2 diabetes mellitus (Acute) Post-concussion headache (Acute) Neck pain (Acute) Neck mass (Acute) Vitamin D deficiency (Acute) Aortic stenosis (Acute) Low blood pressure reading (Acute) S/P cardiac catheterization (Acute) DM type 2 (diabetes mellitus, type 2) (Acute) Paroxysmal atrial fibrillation (Acute) CAD (coronary artery disease) (Acute) Heart failure with preserved ejection fraction (Acute) long-term current use of anticoagulant (Acute) Abnormal stress test (Acute) Right knee pain (Acute) Hypertension (Acute) Obstructive sleep apnea (Acute) Asthma with COPD (Acute) Anemia (Acute) Hearing loss (Acute) Anxiety and depression (Acute) CKD stage 3 due to type 2 diabetes mellitus (Acute) Balance disorder (Acute) Respiratory syncytial virus (RSV) (Acute) Pleural thickening (Acute) Pleural effusion (Acute) Bilateral leg weakness (Acute) Hx of screening mammography (Acute) Hx of colonoscopy (Acute) Memory changes (Acute) Dysuria (Acute) Past Medical History Medical History (Updated 08/07/25 @ 08:51 by Reggie Smallwood MD) Lung infiltrate Asthma exacerbation in COPD Pulmonary nodule PAD (peripheral artery disease) COPD (chronic obstructive pulmonary disease) GERD (gastroesophageal reflux disease) Diabetic neuropathy Claudication of both lower extremities 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 2 diabetes 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 Father No problems noted. Brother Substance use disorder Brother Substance use disorder Surgical History Surgical History History of carpal tunnel surgery History of cholecystectomy History of lobectomy of lung Status post tracheoplasty History of cardiac cath History of Problems with Anesthesia: No Social History Social History Household Members: Family Household Members Other:: 2 Housing: House Do you presently have visiting nurse or other home services: No Alcohol intake: current Alcohol intake frequency: holidays/special occasions only Alcohol type: wine Comment: weddings Patient Tobacco Use Status: Former Tobacco user Tobacco use type: Cigarette Years Smoked: 3 stopped 1992 e-Cigarette/Vaping Use: Never Used Second Hand Smoke Exposure: Yes Advance Directives Date on File: 06/29/23 service: No Current occupational status: retired Cognitive needs: No Hearing needs: No Vision needs: No Meds Allergies Allergy/AdvReac Type Severity Reaction Status Date / Time Latex, Natural Rubber Allergy Severe blisters Verified 07/20/25 11:18 Sulfa (Sulfonamide Allergy Mild ITCHING, Verified 07/20/25 11:18 Antibiotics) (SULFA rash (SULFONAMIDE ANTIBIOTICS)) nystatin Allergy Unknown rash Verified 07/20/25 11:18 isosorbide (From Imdur) AdvReac Unknown HEADACHES, Verified 07/20/25 11:18 headache tizanidine AdvReac Unknown weakness, Verified 07/20/25 11:18 Hellucination Active Medications: Current Medications Acetaminophen (Acetaminophen 325 Mg Tablet) 650 mg PO Q6H PRN PRN Reason: Pain, Mild 1-3,fever,headache Last Admin: 07/30/25 04:12 Dose: 650 mg Albuterol Sulfate (Albuterol Sulfate (0.083%) 2.5 Mg/3 Ml Vial.Neb) 2.5 mg INHALE Q2H PRN PRN Reason: Shortness of Breath/Wheezing Albuterol/Ipratropium (Albuterol/Iprat 2.5/0.5mg 3 Ml Ampul.Neb) 3 ml INHALE RQ4H WHILE AWAKE [facility] Last Admin: 08/07/25 08:06 Dose: 3 ml Apixaban (Apixaban 5 Mg Tablet) 5 mg PO BID [facility] On Hold: 08/05/25 23:36 Last Admin: 08/05/25 21:24 Dose: Not Given Atorvastatin Calcium (Atorvastatin Calcium 80 Mg Tablet) 80 mg PO BEDTIME [facility] Last Admin: 08/06/25 21:22 Dose: Not Given Buspirone HCl (Buspirone Hcl 10 Mg Tablet) 10 mg PO BID [facility] Last Admin: 08/07/25 07:23 Dose: Not Given Chlorhexidine Gluconate (Chlorhexidine Gluc Oral Rinse 15 Ml Mouthwash) 15 ml BUCCAL TID [facility] Last Admin: 08/07/25 07:35 Dose: 15 ml Dextrose (Dextrose 50 % 25 Gm/50 Ml Syringe) 25 gm IVPUSH Q15M PRN; Protocol PRN Reason: per Hypoglycemia Standing Ord. Docusate Sodium (Docusate Sodium 100 Mg Capsule) 100 mg PO BID PRN PRN Reason: Constipation Last Admin: 07/27/25 20:56 Dose: 100 mg Fentanyl (Fentanyl Citrate/Pf 100 Mcg/2 Ml Vial) 25 mcg IVPUSH Q2H PRN; Protocol PRN Reason: WOB Last Admin: 08/06/25 11:31 Dose: 25 mcg Glucose (Glucose Gel 15 Gm Gel..Gram.) 15 gm PO Q15M PRN; Protocol PRN Reason: per Hypoglycemia Standing Ord. Guaifenesin (Guaifenesin 200 Mg/10 Ml 10 Ml Liquid) 10 ml PO Q4H PRN PRN Reason: Cough Last Admin: 07/31/25 20:13 Dose: 10 ml Levofloxacin (Levaquin) 750 mg in 150 mls @ 100 mls/hr IV Q48H [facility] Last Infusion: 08/05/25 18:08 Dose: Infused Metronidazole (Flagyl) 500 mg in 100 mls @ 100 mls/hr IV Q8H [facility] Last Infusion: 08/07/25 07:36 Dose: Infused Norepinephrine Bitartrate (Levophed) 8 mg in 250 mls @ 0 mls/hr IVCONT .Q0M [facility]; Protocol Last Admin: 08/07/25 06:35 Dose: 0.23 mcg/kg/min, 39.07 mls/hr Albumin Human (Kedbumin 25 %) 100 mls @ 100 mls/hr IV Q6H [facility] Stop: 08/07/25 12:59 Last Infusion: 08/07/25 06:07 Dose: Infused Propofol (Diprivan) 1,000 mg in 100 mls @ 0 mls/hr IVCONT .Q0M [facility]; Protocol Last Admin: 08/07/25 05:25 Dose: 30 mcg/kg/min, 16.47 mls/hr Fentanyl (Sublimaze/Ns) 1,000 mcg in 100 mls @ 0 mls/hr IVCONT .Q0M [facility]; Protocol Cisatracurium Besylate 100 mg/ (Sodium Chloride) 50 mls @ 5.64 mls/hr IVCONT .Q8H52M [facility]; Protocol Insulin Glargine (Insulin Glargine,Hum.Rec.Anlog 100 Unit/Ml 10 Ml Vial) 28 unit SUBCUT BEDTIME [facility] Last Admin: 08/06/25 21:41 Dose: Not Given Insulin Human Lispro (Insulin Lispro 100 Unit/Ml 3 Ml Vial) 0 unit SUBCUT Q6H [facility]; Protocol Last Admin: 08/07/25 05:25 Dose: 10 unit Meclizine HCl (Meclizine Hcl 12.5 Mg Tablet) 12.5 mg PO TID PRN PRN Reason: dizziness Methylprednisolone Sodium Succinate (Methylprednisolone Sod Succ 125 Mg/2 Ml Vial) 60 mg IVPUSH DAILY [facility] Naloxone HCl (Naloxone Hcl 0.4 Mg/Ml Vial) 0.2 mg IVPUSH Q2M PRN PRN Reason: Excessive sedation or RR < 8 Ondansetron HCl (Ondansetron Hcl 4 Mg/2 Ml Vial) 4 mg IVPUSH Q4H PRN PRN Reason: Nausea and Vomiting Last Admin: 08/05/25 01:01 Dose: 4 mg Oseltamivir Phosphate (Oseltamivir Phosphate 30 Mg Capsule) 30 mg PO DAILY [facility] Stop: 08/16/25 09:01 Pantoprazole Sodium (Pantoprazole Sodium 40 Mg/10 Ml Vial) 40 mg IVPUSH BID@0630,1630 [facility] Last Admin: 08/07/25 05:25 Dose: 40 mg Sodium Chloride (0.9 % Sodium Chloride Flush 3 Ml Syringe) 3 ml IVFLUSH QSHIFT [facility] Last Admin: 08/07/25 07:35 Dose: 3 ml Home Medications ?Medication ?Instructions ?Recorded ?Confirmed ?Last Taken ?Type cholecalciferol (vitamin D3) 25 25 mcg PO DAILY 08/11/23 07/20/25 07/20/25 History mcg (1,000 unit) tablet albuterol sulfate 90 mcg/actuation 2 puff inhalation QID PRN 05/17/24 07/20/25 Unknown History aerosol inhaler SOB/wheezing budesonide-formoterol HFA 160 2 puff inhalation BID PRN SOB 05/17/24 07/20/25 Unknown History mcg-4.5 mcg/actuation aerosol inhaler (Symbicort) diltiazem HCl 300 mg 300 mg PO DAILY 07/16/25 07/20/25 07/20/25 History capsule,extended release 24 hr (Cartia XT) famotidine 20 mg tablet 20 mg PO DAILY PRN GERD/Acid Reflux 07/16/25 07/20/25 Unknown History insulin lispro 100 unit/mL 1 sliding scale dose subcut TIDAC 07/16/25 07/20/25 07/20/25 History subcutaneous pen (Humalog KwikPen (U-100) Insulin) pantoprazole 40 mg tablet,delayed 40 mg PO DAILY@0630 07/16/25 07/20/25 07/20/25 History release semaglutide 2 mg/dose (8 mg/3 mL) 2 mg subcut [facility] 07/16/25 07/20/25 07/08/25 History subcutaneous pen injector (Ozempic) Exam Height,Weight and Vital Signs: Height 5 ft 4 in Weight 94 kg Last Vital Signs Temp 99.3 F 08/07/25 10:00 Pulse 112 H 08/07/25 10:00 Resp 22 H 08/07/25 10:00 BP 127/42 L 08/07/25 10:00 Pulse Ox 86 L 08/07/25 10:00 O2 Del Method Mechanical Ventilation 08/07/25 10:00 O2 Flow Rate 100 08/07/25 10:00 FiO2 100 08/07/25 09:00 Oxygen Flow Rate 15 08/05/25 20:54 Pertinent Lab Results Pertinent Lab Results: Laboratory Tests 07/20/25 07/20/25 07/20/25 12:15 12:15 12:15 WBC 15.7 H RBC 4.37 Hgb 9.5 L Hct 31.8 L MCV 72.8 L MCH 21.7 L MCHC 29.9 L RDW 18.1 H Plt Count 362 MPV 9.4 Immature Gran % (Auto) 0.9 H Neut % (Auto) 87.4 H Lymph % (Auto) 4.5 L [place] % (Auto) 7.1 Eos % (Auto) 0.0 Baso % (Auto) 0.1 Lymph # (Auto) 0.7 L [place] # (Auto) 1.1 Eos # (Auto) 0.0 Baso # (Auto) 0.0 Abs Immat Gran (auto) 0.14 H Absolute Neuts (auto) 13.7 H Absolute Nucleated RBC 0.000 Nucleated RBC % (auto) 0.0 Neutrophils % (Manual) Band Neutrophils % Lymphocytes % (Manual) Atypical Lymphs % (Man) Monocytes % (Manual) Metamyelocytes % Myelocytes % Abs Neuts (Manual) Lymphocytes # (Manual) Monocytes # (Manual) Metamyelocytes # Myelocytes # Nucleated RBCs Toxic Granulation Toxic Vacuolation Dohle Bodies Platelet Estimate Large Platelets Plt Morphology Comment RBC Morphology Hypochromasia Microcytosis Target Cells Tear Drop Cells Ovalocytes Ruby Cells Acanthocytes (Spur) Schistocytes Smear Tech's Comments Smear Path Review ESR Absolute Retic Percent Retic Immature Retic Fraction Retic Hgb Equivalent Hold Purple Top SEE NOTE PT INR APTT Fibrinogen D-Dimer High Sensitivty O2 Saturation ABG pH at Pt Temp ABG pCO2 at Pt Temp ABG pO2 at Pt Temp ABG HCO3 ABG Base Excess (Actual) VBG pH VBG pCO2 VBG pO2 VBG HCO3 VBG O2 Saturation VBG Base Excess Sodium Cancelled 140 Potassium Cancelled 4.2 Chloride Cancelled Carbon Dioxide Anion Gap BUN Creatinine Estim Creat Clear Calc Estimated GFR POC Glucose Random Glucose Fasting Glucose Lactic Acid Lactic Acid F/U @ 2Hr Calcium Phosphorus Magnesium Total Bilirubin Direct Bilirubin AST ALT Alkaline Phosphatase Lactate Dehydrogenase Troponin I High Sens C-Reactive Protein NT-Pro-B Natriuret Pep Total Protein Albumin Lipase Procalcitonin Urine Color Urine Appearance Urine pH Ur Specific [place] Urine Protein Urine Glucose (UA) Urine Ketones Urine Blood Urine Nitrite Ur Leukocyte Esterase Nasal Screen MRSA (PCR) Nasal S. aureus Screen Nasal MRSA/S.aureus Interp Stool Occult Blood Vancomycin Trough Random Vancomycin Ur L.pneumophila Ag Ur Strep pneumoniae Ag Blood Type Antibody Screen JENNIFER, Polyspecific Positive JENNIFER Work-up Crossmatch 07/20/25 07/20/25 07/20/25 12:15 12:15 12:15 WBC RBC Hgb Hct MCV MCH MCHC RDW Plt Count MPV Immature Gran % (Auto) Neut % (Auto) Lymph % (Auto) [place] % (Auto) Eos % (Auto) Baso % (Auto) Lymph # (Auto) [place] # (Auto) Eos # (Auto) Baso # (Auto) Abs Immat Gran (auto) Absolute Neuts (auto) Absolute Nucleated RBC Nucleated RBC % (auto) Neutrophils % (Manual) Band Neutrophils % Lymphocytes % (Manual) Atypical Lymphs % (Man) Monocytes % (Manual) Metamyelocytes % Myelocytes % Abs Neuts (Manual) Lymphocytes # (Manual) Monocytes # (Manual) Metamyelocytes # Myelocytes # Nucleated RBCs Toxic Granulation Toxic Vacuolation Dohle Bodies Platelet Estimate Large Platelets Plt Morphology Comment RBC Morphology Hypochromasia Microcytosis Target Cells Tear Drop Cells Ovalocytes [place] Cells Acanthocytes (Spur) Schistocytes Smear Tech's Comments Smear Path Review ESR Absolute Retic Percent Retic Immature Retic Fraction Retic Hgb Equivalent Hold Purple Top PT INR APTT Fibrinogen D-Dimer High Sensitivty O2 Saturation ABG pH at Pt Temp ABG pCO2 at Pt Temp ABG pO2 at Pt Temp ABG HCO3 ABG Base Excess (Actual) VBG pH VBG pCO2 VBG pO2 VBG HCO3 VBG O2 Saturation VBG Base Excess Sodium Potassium Chloride 103 Carbon Dioxide Cancelled 24 Anion Gap Cancelled 17 BUN Cancelled Creatinine Estim Creat Clear Calc Estimated GFR POC Glucose Random Glucose Fasting Glucose Lactic Acid Lactic Acid F/U @ 2Hr Calcium Phosphorus Magnesium Total Bilirubin Direct Bilirubin AST ALT Alkaline Phosphatase Lactate Dehydrogenase Troponin I High Sens C-Reactive Protein NT-Pro-B Natriuret Pep Total Protein Albumin Lipase Procalcitonin Urine Color Urine Appearance Urine pH Ur Specific [place] Urine Protein Urine Glucose (UA) Urine Ketones Urine Blood Urine Nitrite Ur Leukocyte Esterase Nasal Screen MRSA (PCR) Nasal S. aureus Screen Nasal MRSA/S.aureus Interp Stool Occult Blood Vancomycin Trough Random Vancomycin Ur L.pneumophila Ag Ur Strep pneumoniae Ag Blood Type Antibody Screen JENNIFER, Polyspecific Positive JENNIFER Work-up Crossmatch 07/20/25 07/20/25 07/20/25 12:15 12:15 12:15 WBC RBC Hgb Hct MCV MCH MCHC RDW Plt Count MPV Immature Gran % (Auto) Neut % (Auto) Lymph % (Auto) [place] % (Auto) Eos % (Auto) Baso % (Auto) Lymph # (Auto) [place] # (Auto) Eos # (Auto) Baso # (Auto) Abs Immat Gran (auto) Absolute Neuts (auto) Absolute Nucleated RBC Nucleated RBC % (auto) Neutrophils % (Manual) Band Neutrophils % Lymphocytes % (Manual) Atypical Lymphs % (Man) Monocytes % (Manual) Metamyelocytes % Myelocytes % Abs Neuts (Manual) Lymphocytes # (Manual) Monocytes # (Manual) Metamyelocytes # Myelocytes # Nucleated RBCs Toxic Granulation Toxic Vacuolation Dohle Bodies Platelet Estimate Large Platelets Plt Morphology Comment RBC Morphology Hypochromasia Microcytosis Target Cells Tear Drop Cells Ovalocytes [place] Cells Acanthocytes (Spur) Schistocytes Smear Tech's Comments Smear Path Review ESR Absolute Retic Percent Retic Immature Retic Fraction Retic Hgb Equivalent Hold Purple Top PT INR APTT Fibrinogen D-Dimer High Sensitivty O2 Saturation ABG pH at Pt Temp ABG pCO2 at Pt Temp ABG pO2 at Pt Temp ABG HCO3 ABG Base Excess (Actual) VBG pH VBG pCO2 VBG pO2 VBG HCO3 VBG O2 Saturation VBG Base Excess Sodium Potassium Chloride Carbon Dioxide Anion Gap BUN 59 H Creatinine Cancelled 1.53 H Estim Creat Clear Calc Cancelled 33.2 Estimated GFR Cancelled POC Glucose Random Glucose Fasting Glucose Lactic Acid Lactic Acid F/U @ 2Hr Calcium Phosphorus Magnesium Total Bilirubin Direct Bilirubin AST ALT Alkaline Phosphatase Lactate Dehydrogenase Troponin I High Sens C-Reactive Protein NT-Pro-B Natriuret Pep Total Protein Albumin Lipase Procalcitonin Urine Color Urine Appearance Urine pH Ur Specific [place] Urine Protein Urine Glucose (UA) Urine Ketones Urine Blood Urine Nitrite Ur Leukocyte Esterase Nasal Screen MRSA (PCR) Nasal S. aureus Screen Nasal MRSA/S.aureus Interp Stool Occult Blood Vancomycin Trough Random Vancomycin Ur L.pneumophila Ag Ur Strep pneumoniae Ag Blood Type Antibody Screen JENNIFER, Polyspecific Positive JENNIFER Work-up Crossmatch 07/20/25 07/20/25 07/20/25 12:15 12:15 12:15 WBC RBC Hgb Hct MCV MCH MCHC RDW Plt Count MPV Immature Gran % (Auto) Neut % (Auto) Lymph % (Auto) [place] % (Auto) Eos % (Auto) Baso % (Auto) Lymph # (Auto) [place] # (Auto) Eos # (Auto) Baso # (Auto) Abs Immat Gran (auto) Absolute Neuts (auto) Absolute Nucleated RBC Nucleated RBC % (auto) Neutrophils % (Manual) Band Neutrophils % Lymphocytes % (Manual) Atypical Lymphs % (Man) Monocytes % (Manual) Metamyelocytes % Myelocytes % Abs Neuts (Manual) Lymphocytes # (Manual) Monocytes # (Manual) Metamyelocytes # Myelocytes # Nucleated RBCs Toxic Granulation Toxic Vacuolation Dohle Bodies Platelet Estimate Large Platelets Plt Morphology Comment RBC Morphology Hypochromasia Microcytosis Target Cells Tear Drop Cells Ovalocytes [place] Cells Acanthocytes (Spur) Schistocytes Smear Tech's Comments Smear Path Review ESR Absolute Retic Percent Retic Immature Retic Fraction Retic Hgb Equivalent Hold Purple Top PT INR APTT Fibrinogen D-Dimer High Sensitivty O2 Saturation ABG pH at Pt Temp ABG pCO2 at Pt Temp ABG pO2 at Pt Temp ABG HCO3 ABG Base Excess (Actual) VBG pH VBG pCO2 VBG pO2 VBG HCO3 VBG O2 Saturation VBG Base Excess Sodium Potassium Chloride Carbon Dioxide Anion Gap BUN Creatinine Estim Creat Clear Calc Estimated GFR 33 POC Glucose Random Glucose Cancelled 226 H Fasting Glucose Lactic Acid 4.0 H* Lactic Acid F/U @ 2Hr Calcium Cancelled 8.6 Phosphorus Magnesium Cancelled Total Bilirubin Direct Bilirubin AST ALT Alkaline Phosphatase Lactate Dehydrogenase Troponin I High Sens C-Reactive Protein NT-Pro-B Natriuret Pep Total Protein Albumin Lipase Procalcitonin Urine Color Urine Appearance Urine pH Ur Specific [place] Urine Protein Urine Glucose (UA) Urine Ketones Urine Blood Urine Nitrite Ur Leukocyte Esterase Nasal Screen MRSA (PCR) Nasal S. aureus Screen Nasal MRSA/S.aureus Interp Stool Occult Blood Vancomycin Trough Random Vancomycin Ur L.pneumophila Ag Ur Strep pneumoniae Ag Blood Type Antibody Screen JENNIFER, Polyspecific Positive JENNIFER Work-up Crossmatch 07/20/25 07/20/25 07/20/25 12:15 12:15 12:15 WBC RBC Hgb Hct MCV MCH MCHC RDW Plt Count MPV Immature Gran % (Auto) Neut % (Auto) Lymph % (Auto) [place] % (Auto) Eos % (Auto) Baso % (Auto) Lymph # (Auto) [place] # (Auto) Eos # (Auto) Baso # (Auto) Abs Immat Gran (auto) Absolute Neuts (auto) Absolute Nucleated RBC Nucleated RBC % (auto) Neutrophils % (Manual) Band Neutrophils % Lymphocytes % (Manual) Atypical Lymphs % (Man) Monocytes % (Manual) Metamyelocytes % Myelocytes % Abs Neuts (Manual) Lymphocytes # (Manual) Monocytes # (Manual) Metamyelocytes # Myelocytes # Nucleated RBCs Toxic Granulation Toxic Vacuolation Dohle Bodies Platelet Estimate Large Platelets Plt Morphology Comment RBC Morphology Hypochromasia Microcytosis Target Cells Tear Drop Cells Ovalocytes Ruby Cells Acanthocytes (Spur) Schistocytes Smear Tech's Comments Smear Path Review ESR Absolute Retic Percent Retic Immature Retic Fraction Retic Hgb Equivalent Hold Purple Top PT INR APTT Fibrinogen D-Dimer High Sensitivty O2 Saturation ABG pH at Pt Temp ABG pCO2 at Pt Temp ABG pO2 at Pt Temp ABG HCO3 ABG Base Excess (Actual) VBG pH VBG pCO2 VBG pO2 VBG HCO3 VBG O2 Saturation VBG Base Excess Sodium Potassium Chloride Carbon Dioxide Anion Gap BUN Creatinine Estim Creat Clear Calc Estimated GFR POC Glucose Random Glucose Fasting Glucose Lactic Acid Lactic Acid F/U @ 2Hr Calcium Phosphorus Magnesium 2.7 H Total Bilirubin Cancelled 0.5 Direct Bilirubin AST Cancelled 22 ALT Cancelled Alkaline Phosphatase Lactate Dehydrogenase Troponin I High Sens C-Reactive Protein NT-Pro-B Natriuret Pep Total Protein Albumin Lipase Procalcitonin Urine Color Urine Appearance Urine pH Ur Specific [place] Urine Protein Urine Glucose (UA) Urine Ketones Urine Blood Urine Nitrite Ur Leukocyte Esterase Nasal Screen MRSA (PCR) Nasal S. aureus Screen Nasal MRSA/S.aureus Interp Stool Occult Blood Vancomycin Trough Random Vancomycin Ur L.pneumophila Ag Ur Strep pneumoniae Ag Blood Type Antibody Screen JENNIFER, Polyspecific Positive JENNIFER Work-up Crossmatch 07/20/25 07/20/25 07/20/25 12:15 12:15 12:15 WBC RBC Hgb Hct MCV MCH MCHC RDW Plt Count MPV Immature Gran % (Auto) Neut % (Auto) Lymph % (Auto) [place] % (Auto) Eos % (Auto) Baso % (Auto) Lymph # (Auto) [place] # (Auto) Eos # (Auto) Baso # (Auto) Abs Immat Gran (auto) Absolute Neuts (auto) Absolute Nucleated RBC Nucleated RBC % (auto) Neutrophils % (Manual) Band Neutrophils % Lymphocytes % (Manual) Atypical Lymphs % (Man) Monocytes % (Manual) Metamyelocytes % Myelocytes % Abs Neuts (Manual) Lymphocytes # (Manual) Monocytes # (Manual) Metamyelocytes # Myelocytes # Nucleated RBCs Toxic Granulation Toxic Vacuolation Dohle Bodies Platelet Estimate Large Platelets Plt Morphology Comment RBC Morphology Hypochromasia Microcytosis Target Cells Tear Drop Cells Ovalocytes Ruby Cells Acanthocytes (Spur) Schistocytes Smear Tech's Comments Smear Path Review ESR Absolute Retic Percent Retic Immature Retic Fraction Retic Hgb Equivalent Hold Purple Top PT INR APTT Fibrinogen D-Dimer High Sensitivty O2 Saturation ABG pH at Pt Temp ABG pCO2 at Pt Temp ABG pO2 at Pt Temp ABG HCO3 ABG Base Excess (Actual) VBG pH VBG pCO2 VBG pO2 VBG HCO3 VBG O2 Saturation VBG Base Excess Sodium Potassium Chloride Carbon Dioxide Anion Gap BUN Creatinine Estim Creat Clear Calc Estimated GFR POC Glucose Random Glucose Fasting Glucose Lactic Acid Lactic Acid F/U @ 2Hr Calcium Phosphorus Magnesium Total Bilirubin Direct Bilirubin AST ALT 23 Alkaline Phosphatase Cancelled 107 Lactate Dehydrogenase Troponin I High Sens 17.5 H C-Reactive Protein NT-Pro-B Natriuret Pep Cancelled 1196.1 H Total Protein Cancelled Albumin Lipase Procalcitonin Urine Color Urine Appearance Urine pH Ur Specific [place] Urine Protein Urine Glucose (UA) Urine Ketones Urine Blood Urine Nitrite Ur Leukocyte Esterase Nasal Screen MRSA (PCR) Nasal S. aureus Screen Nasal MRSA/S.aureus Interp Stool Occult Blood Vancomycin Trough Random Vancomycin Ur L.pneumophila Ag Ur Strep pneumoniae Ag Blood Type Antibody Screen JENNIFER, Polyspecific Positive JENNIFER Work-up Crossmatch 07/20/25 07/20/25 07/20/25 12:15 12:15 15:05 WBC RBC Hgb Hct MCV MCH MCHC RDW Plt Count MPV Immature Gran % (Auto) Neut % (Auto) Lymph % (Auto) [place] % (Auto) Eos % (Auto) Baso % (Auto) Lymph # (Auto) [place] # (Auto) Eos # (Auto) Baso # (Auto) Abs Immat Gran (auto) Absolute Neuts (auto) Absolute Nucleated RBC Nucleated RBC % (auto) Neutrophils % (Manual) Band Neutrophils % Lymphocytes % (Manual) Atypical Lymphs % (Man) Monocytes % (Manual) Metamyelocytes % Myelocytes % Abs Neuts (Manual) Lymphocytes # (Manual) Monocytes # (Manual) Metamyelocytes # Myelocytes # Nucleated RBCs Toxic Granulation Toxic Vacuolation Dohle Bodies Platelet Estimate Large Platelets Plt Morphology Comment RBC Morphology Hypochromasia Microcytosis Target Cells Tear Drop Cells Ovalocytes [place] Cells Acanthocytes (Spur) Schistocytes Smear Tech's Comments Smear Path Review ESR Absolute Retic Percent Retic Immature Retic Fraction Retic Hgb Equivalent Hold Purple Top PT INR APTT Fibrinogen D-Dimer High Sensitivty O2 Saturation ABG pH at Pt Temp ABG pCO2 at Pt Temp ABG pO2 at Pt Temp ABG HCO3 ABG Base Excess (Actual) VBG pH VBG pCO2 VBG pO2 VBG HCO3 VBG O2 Saturation VBG Base Excess Sodium Potassium Chloride Carbon Dioxide Anion Gap BUN Creatinine Estim Creat Clear Calc Estimated GFR POC Glucose Random Glucose Fasting Glucose Lactic Acid Lactic Acid F/U @ 2Hr 1.8 Calcium Phosphorus Magnesium Total Bilirubin Direct Bilirubin AST ALT Alkaline Phosphatase Lactate Dehydrogenase Troponin I High Sens 17.0 C-Reactive Protein NT-Pro-B Natriuret Pep Total Protein 6.8 Albumin Cancelled 3.9 Lipase Procalcitonin Urine Color Urine Appearance Urine pH Ur Specific [place] Urine Protein Urine Glucose (UA) Urine Ketones Urine Blood Urine Nitrite Ur Leukocyte Esterase Nasal Screen MRSA (PCR) Nasal S. aureus Screen Nasal MRSA/S.aureus Interp Stool Occult Blood Vancomycin Trough Random Vancomycin Ur L.pneumophila Ag Ur Strep pneumoniae Ag Blood Type Antibody Screen JENNIFER, Polyspecific Positive JENNIFER Work-up Crossmatch 07/20/25 07/20/25 07/20/25 15:11 16:26 17:16 WBC RBC Hgb Hct MCV MCH MCHC RDW Plt Count MPV Immature Gran % (Auto) Neut % (Auto) Lymph % (Auto) [place] % (Auto) Eos % (Auto) Baso % (Auto) Lymph # (Auto) [place] # (Auto) Eos # (Auto) Baso # (Auto) Abs Immat Gran (auto) Absolute Neuts (auto) Absolute Nucleated RBC Nucleated RBC % (auto) Neutrophils % (Manual) Band Neutrophils % Lymphocytes % (Manual) Atypical Lymphs % (Man) Monocytes % (Manual) Metamyelocytes % Myelocytes % Abs Neuts (Manual) Lymphocytes # (Manual) Monocytes # (Manual) Metamyelocytes # Myelocytes # Nucleated RBCs Toxic Granulation Toxic Vacuolation Dohle Bodies Platelet Estimate Large Platelets Plt Morphology Comment RBC Morphology Hypochromasia Microcytosis Target Cells Tear Drop Cells Ovalocytes [place] Cells Acanthocytes (Spur) Schistocytes Smear Tech's Comments Smear Path Review ESR Absolute Retic Percent Retic Immature Retic Fraction Retic Hgb Equivalent Hold Purple Top PT INR APTT Fibrinogen D-Dimer High Sensitivty O2 Saturation ABG pH at Pt Temp ABG pCO2 at Pt Temp ABG pO2 at Pt Temp ABG HCO3 ABG Base Excess (Actual) VBG pH 7.47 H VBG pCO2 39 VBG pO2 60 VBG HCO3 29 H VBG O2 Saturation 85.0 VBG Base Excess 5.1 Sodium Potassium Chloride Carbon Dioxide Anion Gap BUN Creatinine Estim Creat Clear Calc Estimated GFR POC Glucose 217 H Random Glucose Fasting Glucose Lactic Acid Lactic Acid F/U @ 2Hr Calcium Phosphorus Magnesium Total Bilirubin Direct Bilirubin AST ALT Alkaline Phosphatase Lactate Dehydrogenase Troponin I High Sens C-Reactive Protein NT-Pro-B Natriuret Pep Total Protein Albumin Lipase Procalcitonin Urine Color Yellow Urine Appearance Clear Urine pH 5.0 Ur Specific [place] 1.010 Urine Protein Negative Urine Glucose (UA) 500 H Urine Ketones Negative Urine Blood Negative Urine Nitrite Negative Ur Leukocyte Esterase Negative Nasal Screen MRSA (PCR) Nasal S. aureus Screen Nasal MRSA/S.aureus Interp Stool Occult Blood Vancomycin Trough Random Vancomycin Ur L.pneumophila Ag Ur Strep pneumoniae Ag Blood Type Antibody Screen JENNIFER, Polyspecific Positive JENNIFER Work-up Crossmatch 07/20/25 07/21/25 07/21/25 21:09 06:53 07:25 WBC RBC Hgb Hct MCV MCH MCHC RDW Plt Count MPV Immature Gran % (Auto) Neut % (Auto) Lymph % (Auto) [place] % (Auto) Eos % (Auto) Baso % (Auto) Lymph # (Auto) [place] # (Auto) Eos # (Auto) Baso # (Auto) Abs Immat Gran (auto) Absolute Neuts (auto) Absolute Nucleated RBC Nucleated RBC % (auto) Neutrophils % (Manual) Band Neutrophils % Lymphocytes % (Manual) Atypical Lymphs % (Man) Monocytes % (Manual) Metamyelocytes % Myelocytes % Abs Neuts (Manual) Lymphocytes # (Manual) Monocytes # (Manual) Metamyelocytes # Myelocytes # Nucleated RBCs Toxic Granulation Toxic Vacuolation Dohle Bodies Platelet Estimate Large Platelets Plt Morphology Comment RBC Morphology Hypochromasia Microcytosis Target Cells Tear Drop Cells Ovalocytes [place] Cells Acanthocytes (Spur) Schistocytes Smear Tech's Comments Smear Path Review ESR Absolute Retic Percent Retic Immature Retic Fraction Retic Hgb Equivalent Hold Purple Top PT INR APTT Fibrinogen D-Dimer High Sensitivty O2 Saturation ABG pH at Pt Temp ABG pCO2 at Pt Temp ABG pO2 at Pt Temp ABG HCO3 ABG Base Excess (Actual) VBG pH VBG pCO2 VBG pO2 VBG HCO3 VBG O2 Saturation VBG Base Excess Sodium 141 Potassium 3.7 Chloride 106 Carbon Dioxide 25 Anion Gap 14 BUN 50 H Creatinine 1.42 H Estim Creat Clear Calc 36.7 Estimated GFR 36 POC Glucose 348 H 202 H Random Glucose 209 H Fasting Glucose Lactic Acid Lactic Acid F/U @ 2Hr Calcium 8.0 L D Phosphorus Magnesium Total Bilirubin Direct Bilirubin AST ALT Alkaline Phosphatase Lactate Dehydrogenase Troponin I High Sens C-Reactive Protein NT-Pro-B Natriuret Pep 964.6 H Total Protein Albumin Lipase Procalcitonin Urine Color Urine Appearance Urine pH Ur Specific [place] Urine Protein Urine Glucose (UA) Urine Ketones Urine Blood Urine Nitrite Ur Leukocyte Esterase Nasal Screen MRSA (PCR) Nasal S. aureus Screen Nasal MRSA/S.aureus Interp Stool Occult Blood Vancomycin Trough Random Vancomycin Ur L.pneumophila Ag Ur Strep pneumoniae Ag Blood Type Antibody Screen JENNIFER, Polyspecific Positive JENNIFER Work-up Crossmatch 07/21/25 07/21/25 07/21/25 09:37 11:03 16:12 WBC RBC Hgb Hct MCV MCH MCHC RDW Plt Count MPV Immature Gran % (Auto) Neut % (Auto) Lymph % (Auto) [place] % (Auto) Eos % (Auto) Baso % (Auto) Lymph # (Auto) [place] # (Auto) Eos # (Auto) Baso # (Auto) Abs Immat Gran (auto) Absolute Neuts (auto) Absolute Nucleated RBC Nucleated RBC % (auto) Neutrophils % (Manual) Band Neutrophils % Lymphocytes % (Manual) Atypical Lymphs % (Man) Monocytes % (Manual) Metamyelocytes % Myelocytes % Abs Neuts (Manual) Lymphocytes # (Manual) Monocytes # (Manual) Metamyelocytes # Myelocytes # Nucleated RBCs Toxic Granulation Toxic Vacuolation Dohle Bodies Platelet Estimate Large Platelets Plt Morphology Comment RBC Morphology Hypochromasia Microcytosis Target Cells Tear Drop Cells Ovalocytes [place] Cells Acanthocytes (Spur) Schistocytes Smear Tech's Comments Smear Path Review ESR Absolute Retic Percent Retic Immature Retic Fraction Retic Hgb Equivalent Hold Purple Top PT INR APTT Fibrinogen D-Dimer High Sensitivty O2 Saturation ABG pH at Pt Temp ABG pCO2 at Pt Temp ABG pO2 at Pt Temp ABG HCO3 ABG Base Excess (Actual) VBG pH 7.46 H VBG pCO2 36 VBG pO2 57 VBG HCO3 26 VBG O2 Saturation 81.0 VBG Base Excess 2.7 Sodium Potassium Chloride Carbon Dioxide Anion Gap BUN Creatinine Estim Creat Clear Calc Estimated GFR POC Glucose 306 H 326 H Random Glucose Fasting Glucose Lactic Acid Lactic Acid F/U @ 2Hr Calcium Phosphorus Magnesium Total Bilirubin Direct Bilirubin AST ALT Alkaline Phosphatase Lactate Dehydrogenase Troponin I High Sens C-Reactive Protein NT-Pro-B Natriuret Pep Total Protein Albumin Lipase Procalcitonin Urine Color Urine Appearance Urine pH Ur Specific [place] Urine Protein Urine Glucose (UA) Urine Ketones Urine Blood Urine Nitrite Ur Leukocyte Esterase Nasal Screen MRSA (PCR) Nasal S. aureus Screen Nasal MRSA/S.aureus Interp Stool Occult Blood Vancomycin Trough Random Vancomycin Ur L.pneumophila Ag Ur Strep pneumoniae Ag Blood Type Antibody Screen JENNIFER, Polyspecific Positive JENNIFER Work-up Crossmatch 07/21/25 07/22/25 07/22/25 21:08 07:35 11:30 WBC RBC Hgb Hct MCV MCH MCHC RDW Plt Count MPV Immature Gran % (Auto) Neut % (Auto) Lymph % (Auto) [place] % (Auto) Eos % (Auto) Baso % (Auto) Lymph # (Auto) [place] # (Auto) Eos # (Auto) Baso # (Auto) Abs Immat Gran (auto) Absolute Neuts (auto) Absolute Nucleated RBC Nucleated RBC % (auto) Neutrophils % (Manual) Band Neutrophils % Lymphocytes % (Manual) Atypical Lymphs % (Man) Monocytes % (Manual) Metamyelocytes % Myelocytes % Abs Neuts (Manual) Lymphocytes # (Manual) Monocytes # (Manual) Metamyelocytes # Myelocytes # Nucleated RBCs Toxic Granulation Toxic Vacuolation Dohle Bodies Platelet Estimate Large Platelets Plt Morphology Comment RBC Morphology Hypochromasia Microcytosis Target Cells Tear Drop Cells Ovalocytes [place] Cells Acanthocytes (Spur) Schistocytes Smear Tech's Comments Smear Path Review ESR Absolute Retic Percent Retic Immature Retic Fraction Retic Hgb Equivalent Hold Purple Top PT INR APTT Fibrinogen D-Dimer High Sensitivty O2 Saturation ABG pH at Pt Temp ABG pCO2 at Pt Temp ABG pO2 at Pt Temp ABG HCO3 ABG Base Excess (Actual) VBG pH VBG pCO2 VBG pO2 VBG HCO3 VBG O2 Saturation VBG Base Excess Sodium Potassium Chloride Carbon Dioxide Anion Gap BUN Creatinine Estim Creat Clear Calc Estimated GFR POC Glucose 313 H 180 H 216 H Random Glucose Fasting Glucose Lactic Acid Lactic Acid F/U @ 2Hr Calcium Phosphorus Magnesium Total Bilirubin Direct Bilirubin AST ALT Alkaline Phosphatase Lactate Dehydrogenase Troponin I High Sens C-Reactive Protein NT-Pro-B Natriuret Pep Total Protein Albumin Lipase Procalcitonin Urine Color Urine Appearance Urine pH Ur Specific [place] Urine Protein Urine Glucose (UA) Urine Ketones Urine Blood Urine Nitrite Ur Leukocyte Esterase Nasal Screen MRSA (PCR) Nasal S. aureus Screen Nasal MRSA/S.aureus Interp Stool Occult Blood Vancomycin Trough Random Vancomycin Ur L.pneumophila Ag Ur Strep pneumoniae Ag Blood Type Antibody Screen JENNIFER, Polyspecific Positive JENNIFER Work-up Crossmatch 07/22/25 07/22/25 07/22/25 13:46 15:54 21:26 WBC RBC Hgb Hct MCV MCH MCHC RDW Plt Count MPV Immature Gran % (Auto) Neut % (Auto) Lymph % (Auto) [place] % (Auto) Eos % (Auto) Baso % (Auto) Lymph # (Auto) [place] # (Auto) Eos # (Auto) Baso # (Auto) Abs Immat Gran (auto) Absolute Neuts (auto) Absolute Nucleated RBC Nucleated RBC % (auto) Neutrophils % (Manual) Band Neutrophils % Lymphocytes % (Manual) Atypical Lymphs % (Man) Monocytes % (Manual) Metamyelocytes % Myelocytes % Abs Neuts (Manual) Lymphocytes # (Manual) Monocytes # (Manual) Metamyelocytes # Myelocytes # Nucleated RBCs Toxic Granulation Toxic Vacuolation Dohle Bodies Platelet Estimate Large Platelets Plt Morphology Comment RBC Morphology Hypochromasia Microcytosis Target Cells Tear Drop Cells Ovalocytes [place] Cells Acanthocytes (Spur) Schistocytes Smear Tech's Comments Smear Path Review ESR Absolute Retic Percent Retic Immature Retic Fraction Retic Hgb Equivalent Hold Purple Top SEE NOTE PT INR APTT Fibrinogen D-Dimer High Sensitivty O2 Saturation ABG pH at Pt Temp ABG pCO2 at Pt Temp ABG pO2 at Pt Temp ABG HCO3 ABG Base Excess (Actual) VBG pH VBG pCO2 VBG pO2 VBG HCO3 VBG O2 Saturation VBG Base Excess Sodium 138 Potassium 4.2 Chloride 102 Carbon Dioxide 25 Anion Gap 15 BUN 44 H Creatinine 1.39 Estim Creat Clear Calc 37.5 Estimated GFR 37 POC Glucose 249 H 252 H Random Glucose 272 H Fasting Glucose Lactic Acid Lactic Acid F/U @ 2Hr Calcium 7.9 L Phosphorus Magnesium Total Bilirubin 0.3 Direct Bilirubin 0.1 AST 22 ALT 22 Alkaline Phosphatase 81 Lactate Dehydrogenase Troponin I High Sens C-Reactive Protein NT-Pro-B Natriuret Pep Total Protein 5.8 L Albumin 3.3 L Lipase 48 Procalcitonin Urine Color Urine Appearance Urine pH Ur Specific [place] Urine Protein Urine Glucose (UA) Urine Ketones Urine Blood Urine Nitrite Ur Leukocyte Esterase Nasal Screen MRSA (PCR) Nasal S. aureus Screen Nasal MRSA/S.aureus Interp Stool Occult Blood Vancomycin Trough Random Vancomycin Ur L.pneumophila Ag Ur Strep pneumoniae Ag Blood Type Antibody Screen JENNIFER, Polyspecific Positive JENNIFER Work-up Crossmatch 07/23/25 07/23/25 07/23/25 07:12 08:11 11:33 WBC RBC Hgb Hct MCV MCH MCHC RDW Plt Count MPV Immature Gran % (Auto) Neut % (Auto) Lymph % (Auto) [place] % (Auto) Eos % (Auto) Baso % (Auto) Lymph # (Auto) [place] # (Auto) Eos # (Auto) Baso # (Auto) Abs Immat Gran (auto) Absolute Neuts (auto) Absolute Nucleated RBC Nucleated RBC % (auto) Neutrophils % (Manual) Band Neutrophils % Lymphocytes % (Manual) Atypical Lymphs % (Man) Monocytes % (Manual) Metamyelocytes % Myelocytes % Abs Neuts (Manual) Lymphocytes # (Manual) Monocytes # (Manual) Metamyelocytes # Myelocytes # Nucleated RBCs Toxic Granulation Toxic Vacuolation Dohle Bodies Platelet Estimate Large Platelets Plt Morphology Comment RBC Morphology Hypochromasia Microcytosis Target Cells Tear Drop Cells Ovalocytes [place] Cells Acanthocytes (Spur) Schistocytes Smear Tech's Comments Smear Path Review ESR Absolute Retic Percent Retic Immature Retic Fraction Retic Hgb Equivalent Hold Purple Top PT INR APTT Fibrinogen D-Dimer High Sensitivty O2 Saturation ABG pH at Pt Temp ABG pCO2 at Pt Temp ABG pO2 at Pt Temp ABG HCO3 ABG Base Excess (Actual) VBG pH VBG pCO2 VBG pO2 VBG HCO3 VBG O2 Saturation VBG Base Excess Sodium 138 Potassium 3.7 Chloride 102 Carbon Dioxide 29 Anion Gap 11 L BUN 38 H Creatinine 1.16 Estim Creat Clear Calc 45.0 Estimated GFR 45 POC Glucose 167 H 207 H Random Glucose 168 H Fasting Glucose Lactic Acid Lactic Acid F/U @ 2Hr Calcium 7.9 L Phosphorus Magnesium Total Bilirubin Direct Bilirubin AST ALT Alkaline Phosphatase Lactate Dehydrogenase Troponin I High Sens C-Reactive Protein NT-Pro-B Natriuret Pep Total Protein Albumin Lipase Procalcitonin Urine Color Urine Appearance Urine pH Ur Specific [place] Urine Protein Urine Glucose (UA) Urine Ketones Urine Blood Urine Nitrite Ur Leukocyte Esterase Nasal Screen MRSA (PCR) Nasal S. aureus Screen Nasal MRSA/S.aureus Interp Stool Occult Blood Vancomycin Trough Random Vancomycin Ur L.pneumophila Ag Ur Strep pneumoniae Ag Blood Type Antibody Screen JENNIFER, Polyspecific Positive JENNIFER Work-up Crossmatch 07/23/25 07/23/25 07/24/25 15:26 20:45 07:48 WBC RBC Hgb Hct MCV MCH MCHC RDW Plt Count MPV Immature Gran % (Auto) Neut % (Auto) Lymph % (Auto) [place] % (Auto) Eos % (Auto) Baso % (Auto) Lymph # (Auto) [place] # (Auto) Eos # (Auto) Baso # (Auto) Abs Immat Gran (auto) Absolute Neuts (auto) Absolute Nucleated RBC Nucleated RBC % (auto) Neutrophils % (Manual) Band Neutrophils % Lymphocytes % (Manual) Atypical Lymphs % (Man) Monocytes % (Manual) Metamyelocytes % Myelocytes % Abs Neuts (Manual) Lymphocytes # (Manual) Monocytes # (Manual) Metamyelocytes # Myelocytes # Nucleated RBCs Toxic Granulation Toxic Vacuolation Dohle Bodies Platelet Estimate Large Platelets Plt Morphology Comment RBC Morphology Hypochromasia Microcytosis Target Cells Tear Drop Cells Ovalocytes [place] Cells Acanthocytes (Spur) Schistocytes Smear Tech's Comments Smear Path Review ESR Absolute Retic Percent Retic Immature Retic Fraction Retic Hgb Equivalent Hold Purple Top PT INR APTT Fibrinogen D-Dimer High Sensitivty O2 Saturation ABG pH at Pt Temp ABG pCO2 at Pt Temp ABG pO2 at Pt Temp ABG HCO3 ABG Base Excess (Actual) VBG pH VBG pCO2 VBG pO2 VBG HCO3 VBG O2 Saturation VBG Base Excess Sodium Potassium Chloride Carbon Dioxide Anion Gap BUN Creatinine Estim Creat Clear Calc Estimated GFR POC Glucose 241 H 238 H 189 H Random Glucose Fasting Glucose Lactic Acid Lactic Acid F/U @ 2Hr Calcium Phosphorus Magnesium Total Bilirubin Direct Bilirubin AST ALT Alkaline Phosphatase Lactate Dehydrogenase Troponin I High Sens C-Reactive Protein NT-Pro-B Natriuret Pep Total Protein Albumin Lipase Procalcitonin Urine Color Urine Appearance Urine pH Ur Specific [place] Urine Protein Urine Glucose (UA) Urine Ketones Urine Blood Urine Nitrite Ur Leukocyte Esterase Nasal Screen MRSA (PCR) Nasal S. aureus Screen Nasal MRSA/S.aureus Interp Stool Occult Blood Vancomycin Trough Random Vancomycin Ur L.pneumophila Ag Ur Strep pneumoniae Ag Blood Type Antibody Screen JENNIFER, Polyspecific Positive JENNIFER Work-up Crossmatch 07/24/25 07/24/25 07/24/25 09:11 11:46 14:19 WBC RBC Hgb Hct MCV MCH MCHC RDW Plt Count MPV Immature Gran % (Auto) Neut % (Auto) Lymph % (Auto) [place] % (Auto) Eos % (Auto) Baso % (Auto) Lymph # (Auto) [place] # (Auto) Eos # (Auto) Baso # (Auto) Abs Immat Gran (auto) Absolute Neuts (auto) Absolute Nucleated RBC Nucleated RBC % (auto) Neutrophils % (Manual) Band Neutrophils % Lymphocytes % (Manual) Atypical Lymphs % (Man) Monocytes % (Manual) Metamyelocytes % Myelocytes % Abs Neuts (Manual) Lymphocytes # (Manual) Monocytes # (Manual) Metamyelocytes # Myelocytes # Nucleated RBCs Toxic Granulation Toxic Vacuolation Dohle Bodies Platelet Estimate Large Platelets Plt Morphology Comment RBC Morphology Hypochromasia Microcytosis Target Cells Tear Drop Cells Ovalocytes [place] Cells Acanthocytes (Spur) Schistocytes Smear Tech's Comments Smear Path Review ESR Absolute Retic Percent Retic Immature Retic Fraction Retic Hgb Equivalent Hold Purple Top PT INR APTT Fibrinogen D-Dimer High Sensitivty O2 Saturation ABG pH at Pt Temp ABG pCO2 at Pt Temp ABG pO2 at Pt Temp ABG HCO3 ABG Base Excess (Actual) VBG pH 7.50 H VBG pCO2 38 VBG pO2 35 VBG HCO3 30 H VBG O2 Saturation 48.0 VBG Base Excess 6.9 Sodium 136 Potassium 3.6 Chloride 103 Carbon Dioxide 25 Anion Gap 12 BUN 40 H Creatinine 1.29 Estim Creat Clear Calc 40.4 Estimated GFR 40 POC Glucose 225 H Random Glucose 289 H Fasting Glucose Lactic Acid Lactic Acid F/U @ 2Hr Calcium 8.0 L Phosphorus Magnesium Total Bilirubin Direct Bilirubin AST ALT Alkaline Phosphatase Lactate Dehydrogenase Troponin I High Sens C-Reactive Protein NT-Pro-B Natriuret Pep 1269.4 H Total Protein Albumin Lipase Procalcitonin Urine Color Urine Appearance Urine pH Ur Specific [place] Urine Protein Urine Glucose (UA) Urine Ketones Urine Blood Urine Nitrite Ur Leukocyte Esterase Nasal Screen MRSA (PCR) Nasal S. aureus Screen Nasal MRSA/S.aureus Interp Stool Occult Blood Vancomycin Trough Random Vancomycin Ur L.pneumophila Ag Ur Strep pneumoniae Ag Blood Type Antibody Screen JENNIFER, Polyspecific Positive JENNIFER Work-up Crossmatch 07/24/25 07/24/25 07/25/25 15:21 20:04 06:57 WBC 13.7 H RBC 4.18 L Hgb 9.3 L Hct 31.4 L MCV 75.1 L MCH 22.2 L MCHC 29.6 L RDW 20.1 H Plt Count 257 D MPV 10.4 Immature Gran % (Auto) Neut % (Auto) Lymph % (Auto) [place] % (Auto) Eos % (Auto) Baso % (Auto) Lymph # (Auto) [place] # (Auto) Eos # (Auto) Baso # (Auto) Abs Immat Gran (auto) Absolute Neuts (auto) Absolute Nucleated RBC 0.000 Nucleated RBC % (auto) 0.0 Neutrophils % (Manual) Band Neutrophils % Lymphocytes % (Manual) Atypical Lymphs % (Man) Monocytes % (Manual) Metamyelocytes % Myelocytes % Abs Neuts (Manual) Lymphocytes # (Manual) Monocytes # (Manual) Metamyelocytes # Myelocytes # Nucleated RBCs Toxic Granulation Toxic Vacuolation Dohle Bodies Platelet Estimate Large Platelets Plt Morphology Comment RBC Morphology Hypochromasia Microcytosis Target Cells Tear Drop Cells Ovalocytes [place] Cells Acanthocytes (Spur) Schistocytes Smear Tech's Comments Smear Path Review ESR Absolute Retic Percent Retic Immature Retic Fraction Retic Hgb Equivalent Hold Purple Top PT INR APTT Fibrinogen D-Dimer High Sensitivty O2 Saturation ABG pH at Pt Temp ABG pCO2 at Pt Temp ABG pO2 at Pt Temp ABG HCO3 ABG Base Excess (Actual) VBG pH VBG pCO2 VBG pO2 VBG HCO3 VBG O2 Saturation VBG Base Excess Sodium 139 Potassium 3.6 Chloride 101 Carbon Dioxide 27 Anion Gap 15 BUN 38 H Creatinine 1.11 Estim Creat Clear Calc 47.0 Estimated GFR 48 POC Glucose 235 H 293 H Random Glucose 225 H Fasting Glucose Lactic Acid Lactic Acid F/U @ 2Hr Calcium 8.1 L Phosphorus Magnesium Total Bilirubin Direct Bilirubin AST ALT Alkaline Phosphatase Lactate Dehydrogenase Troponin I High Sens C-Reactive Protein NT-Pro-B Natriuret Pep 1447.8 H Total Protein Albumin Lipase Procalcitonin Urine Color Urine Appearance Urine pH Ur Specific [place] Urine Protein Urine Glucose (UA) Urine Ketones Urine Blood Urine Nitrite Ur Leukocyte Esterase Nasal Screen MRSA (PCR) Nasal S. aureus Screen Nasal MRSA/S.aureus Interp Stool Occult Blood Vancomycin Trough Random Vancomycin Ur L.pneumophila Ag Ur Strep pneumoniae Ag Blood Type Antibody Screen JENNIFER, Polyspecific Positive JENNIFER Work-up Crossmatch 07/25/25 07/25/25 07/25/25 07:24 11:26 15:54 WBC RBC Hgb Hct MCV MCH MCHC RDW Plt Count MPV Immature Gran % (Auto) Neut % (Auto) Lymph % (Auto) [place] % (Auto) Eos % (Auto) Baso % (Auto) Lymph # (Auto) [place] # (Auto) Eos # (Auto) Baso # (Auto) Abs Immat Gran (auto) Absolute Neuts (auto) Absolute Nucleated RBC Nucleated RBC % (auto) Neutrophils % (Manual) Band Neutrophils % Lymphocytes % (Manual) Atypical Lymphs % (Man) Monocytes % (Manual) Metamyelocytes % Myelocytes % Abs Neuts (Manual) Lymphocytes # (Manual) Monocytes # (Manual) Metamyelocytes # Myelocytes # Nucleated RBCs Toxic Granulation Toxic Vacuolation Dohle Bodies Platelet Estimate Large Platelets Plt Morphology Comment RBC Morphology Hypochromasia Microcytosis Target Cells Tear Drop Cells Ovalocytes [place] Cells Acanthocytes (Spur) Schistocytes Smear Tech's Comments Smear Path Review ESR Absolute Retic Percent Retic Immature Retic Fraction Retic Hgb Equivalent Hold Purple Top PT INR APTT Fibrinogen D-Dimer High Sensitivty O2 Saturation ABG pH at Pt Temp ABG pCO2 at Pt Temp ABG pO2 at Pt Temp ABG HCO3 ABG Base Excess (Actual) VBG pH VBG pCO2 VBG pO2 VBG HCO3 VBG O2 Saturation VBG Base Excess Sodium Potassium Chloride Carbon Dioxide Anion Gap BUN Creatinine Estim Creat Clear Calc Estimated GFR POC Glucose 211 H 299 H 348 H Random Glucose Fasting Glucose Lactic Acid Lactic Acid F/U @ 2Hr Calcium Phosphorus Magnesium Total Bilirubin Direct Bilirubin AST ALT Alkaline Phosphatase Lactate Dehydrogenase Troponin I High Sens C-Reactive Protein NT-Pro-B Natriuret Pep Total Protein Albumin Lipase Procalcitonin Urine Color Urine Appearance Urine pH Ur Specific [place] Urine Protein Urine Glucose (UA) Urine Ketones Urine Blood Urine Nitrite Ur Leukocyte Esterase Nasal Screen MRSA (PCR) Nasal S. aureus Screen Nasal MRSA/S.aureus Interp Stool Occult Blood Vancomycin Trough Random Vancomycin Ur L.pneumophila Ag Ur Strep pneumoniae Ag Blood Type Antibody Screen JENNIFER, Polyspecific Positive JENNIFER Work-up Crossmatch 07/25/25 07/26/25 07/26/25 20:32 06:12 07:24 WBC 17.3 H RBC 4.42 Hgb 9.7 L Hct 32.4 L MCV 73.3 L MCH 21.9 L MCHC 29.9 L RDW 20.7 H Plt Count 235 MPV 10.0 Immature Gran % (Auto) Neut % (Auto) Lymph % (Auto) [place] % (Auto) Eos % (Auto) Baso % (Auto) Lymph # (Auto) [place] # (Auto) Eos # (Auto) Baso # (Auto) Abs Immat Gran (auto) Absolute Neuts (auto) Absolute Nucleated RBC 0.000 Nucleated RBC % (auto) 0.0 Neutrophils % (Manual) Band Neutrophils % Lymphocytes % (Manual) Atypical Lymphs % (Man) Monocytes % (Manual) Metamyelocytes % Myelocytes % Abs Neuts (Manual) Lymphocytes # (Manual) Monocytes # (Manual) Metamyelocytes # Myelocytes # Nucleated RBCs Toxic Granulation Toxic Vacuolation Dohle Bodies Platelet Estimate Large Platelets Plt Morphology Comment RBC Morphology Hypochromasia Microcytosis Target Cells Tear Drop Cells Ovalocytes [place] Cells Acanthocytes (Spur) Schistocytes Smear Tech's Comments Smear Path Review ESR Absolute Retic Percent Retic Immature Retic Fraction Retic Hgb Equivalent Hold Purple Top PT INR APTT Fibrinogen D-Dimer High Sensitivty O2 Saturation ABG pH at Pt Temp ABG pCO2 at Pt Temp ABG pO2 at Pt Temp ABG HCO3 ABG Base Excess (Actual) VBG pH VBG pCO2 VBG pO2 VBG HCO3 VBG O2 Saturation VBG Base Excess Sodium 139 Potassium 3.4 Chloride 100 Carbon Dioxide 30 H Anion Gap 12 BUN 40 H Creatinine 0.94 Estim Creat Clear Calc 55.5 Estimated GFR 58 POC Glucose 302 H 208 H Random Glucose 202 H Fasting Glucose Lactic Acid Lactic Acid F/U @ 2Hr Calcium 8.1 L Phosphorus Magnesium Total Bilirubin Direct Bilirubin AST ALT Alkaline Phosphatase Lactate Dehydrogenase Troponin I High Sens C-Reactive Protein NT-Pro-B Natriuret Pep Total Protein Albumin Lipase Procalcitonin Urine Color Urine Appearance Urine pH Ur Specific [place] Urine Protein Urine Glucose (UA) Urine Ketones Urine Blood Urine Nitrite Ur Leukocyte Esterase Nasal Screen MRSA (PCR) Nasal S. aureus Screen Nasal MRSA/S.aureus Interp Stool Occult Blood Vancomycin Trough Random Vancomycin Ur L.pneumophila Ag Ur Strep pneumoniae Ag Blood Type Antibody Screen JENNIFER, Polyspecific Positive JENNIFER Work-up Crossmatch 07/26/25 07/26/25 07/26/25 11:34 15:32 21:02 WBC RBC Hgb Hct MCV MCH MCHC RDW Plt Count MPV Immature Gran % (Auto) Neut % (Auto) Lymph % (Auto) [place] % (Auto) Eos % (Auto) Baso % (Auto) Lymph # (Auto) [place] # (Auto) Eos # (Auto) Baso # (Auto) Abs Immat Gran (auto) Absolute Neuts (auto) Absolute Nucleated RBC Nucleated RBC % (auto) Neutrophils % (Manual) Band Neutrophils % Lymphocytes % (Manual) Atypical Lymphs % (Man) Monocytes % (Manual) Metamyelocytes % Myelocytes % Abs Neuts (Manual) Lymphocytes # (Manual) Monocytes # (Manual) Metamyelocytes # Myelocytes # Nucleated RBCs Toxic Granulation Toxic Vacuolation Dohle Bodies Platelet Estimate Large Platelets Plt Morphology Comment RBC Morphology Hypochromasia Microcytosis Target Cells Tear Drop Cells Ovalocytes Ruby Cells Acanthocytes (Spur) Schistocytes Smear Tech's Comments Smear Path Review ESR Absolute Retic Percent Retic Immature Retic Fraction Retic Hgb Equivalent Hold Purple Top PT INR APTT Fibrinogen D-Dimer High Sensitivty O2 Saturation ABG pH at Pt Temp ABG pCO2 at Pt Temp ABG pO2 at Pt Temp ABG HCO3 ABG Base Excess (Actual) VBG pH VBG pCO2 VBG pO2 VBG HCO3 VBG O2 Saturation VBG Base Excess Sodium Potassium Chloride Carbon Dioxide Anion Gap BUN Creatinine Estim Creat Clear Calc Estimated GFR POC Glucose 283 H 259 H 350 H* Random Glucose Fasting Glucose Lactic Acid Lactic Acid F/U @ 2Hr Calcium Phosphorus Magnesium Total Bilirubin Direct Bilirubin AST ALT Alkaline Phosphatase Lactate Dehydrogenase Troponin I High Sens C-Reactive Protein NT-Pro-B Natriuret Pep Total Protein Albumin Lipase Procalcitonin Urine Color Urine Appearance Urine pH Ur Specific [place] Urine Protein Urine Glucose (UA) Urine Ketones Urine Blood Urine Nitrite Ur Leukocyte Esterase Nasal Screen MRSA (PCR) Nasal S. aureus Screen Nasal MRSA/S.aureus Interp Stool Occult Blood Vancomycin Trough Random Vancomycin Ur L.pneumophila Ag Ur Strep pneumoniae Ag Blood Type Antibody Screen JENNIFER, Polyspecific Positive JENNIFER Work-up Crossmatch 07/27/25 07/27/25 07/27/25 07:04 11:20 15:40 WBC RBC Hgb Hct MCV MCH MCHC RDW Plt Count MPV Immature Gran % (Auto) Neut % (Auto) Lymph % (Auto) [place] % (Auto) Eos % (Auto) Baso % (Auto) Lymph # (Auto) [place] # (Auto) Eos # (Auto) Baso # (Auto) Abs Immat Gran (auto) Absolute Neuts (auto) Absolute Nucleated RBC Nucleated RBC % (auto) Neutrophils % (Manual) Band Neutrophils % Lymphocytes % (Manual) Atypical Lymphs % (Man) Monocytes % (Manual) Metamyelocytes % Myelocytes % Abs Neuts (Manual) Lymphocytes # (Manual) Monocytes # (Manual) Metamyelocytes # Myelocytes # Nucleated RBCs Toxic Granulation Toxic Vacuolation Dohle Bodies Platelet Estimate Large Platelets Plt Morphology Comment RBC Morphology Hypochromasia Microcytosis Target Cells Tear Drop Cells Ovalocytes [place] Cells Acanthocytes (Spur) Schistocytes Smear Tech's Comments Smear Path Review ESR Absolute Retic Percent Retic Immature Retic Fraction Retic Hgb Equivalent Hold Purple Top PT INR APTT Fibrinogen D-Dimer High Sensitivty O2 Saturation ABG pH at Pt Temp ABG pCO2 at Pt Temp ABG pO2 at Pt Temp ABG HCO3 ABG Base Excess (Actual) VBG pH VBG pCO2 VBG pO2 VBG HCO3 VBG O2 Saturation VBG Base Excess Sodium Potassium Chloride Carbon Dioxide Anion Gap BUN Creatinine Estim Creat Clear Calc Estimated GFR POC Glucose 159 H 258 H 232 H Random Glucose Fasting Glucose Lactic Acid Lactic Acid F/U @ 2Hr Calcium Phosphorus Magnesium Total Bilirubin Direct Bilirubin AST ALT Alkaline Phosphatase Lactate Dehydrogenase Troponin I High Sens C-Reactive Protein NT-Pro-B Natriuret Pep Total Protein Albumin Lipase Procalcitonin Urine Color Urine Appearance Urine pH Ur Specific [place] Urine Protein Urine Glucose (UA) Urine Ketones Urine Blood Urine Nitrite Ur Leukocyte Esterase Nasal Screen MRSA (PCR) Nasal S. aureus Screen Nasal MRSA/S.aureus Interp Stool Occult Blood Vancomycin Trough Random Vancomycin Ur L.pneumophila Ag Ur Strep pneumoniae Ag Blood Type Antibody Screen JENNIFER, Polyspecific Positive JENNIFER Work-up Crossmatch 07/27/25 07/28/25 07/28/25 20:01 07:24 07:36 WBC 17.4 H RBC 4.39 Hgb 9.9 L Hct 32.1 L MCV 73.1 L MCH 22.6 L MCHC 30.8 L RDW 21.9 H Plt Count 166 D MPV 10.7 Immature Gran % (Auto) Neut % (Auto) Lymph % (Auto) [place] % (Auto) Eos % (Auto) Baso % (Auto) Lymph # (Auto) [place] # (Auto) Eos # (Auto) Baso # (Auto) Abs Immat Gran (auto) Absolute Neuts (auto) Absolute Nucleated RBC 0.000 Nucleated RBC % (auto) 0.0 Neutrophils % (Manual) Band Neutrophils % Lymphocytes % (Manual) Atypical Lymphs % (Man) Monocytes % (Manual) Metamyelocytes % Myelocytes % Abs Neuts (Manual) Lymphocytes # (Manual) Monocytes # (Manual) Metamyelocytes # Myelocytes # Nucleated RBCs Toxic Granulation Toxic Vacuolation Dohle Bodies Platelet Estimate Large Platelets Plt Morphology Comment RBC Morphology Hypochromasia Microcytosis Target Cells Tear Drop Cells Ovalocytes [place] Cells Acanthocytes (Spur) Schistocytes Smear Tech's Comments Smear Path Review ESR Absolute Retic Percent Retic Immature Retic Fraction Retic Hgb Equivalent Hold Purple Top PT INR APTT Fibrinogen D-Dimer High Sensitivty O2 Saturation ABG pH at Pt Temp ABG pCO2 at Pt Temp ABG pO2 at Pt Temp ABG HCO3 ABG Base Excess (Actual) VBG pH VBG pCO2 VBG pO2 VBG HCO3 VBG O2 Saturation VBG Base Excess Sodium 141 Potassium 3.3 Chloride 97 Carbon Dioxide 35 H Anion Gap 12 BUN 39 H Creatinine 0.86 Estim Creat Clear Calc 60.6 Estimated GFR > 60 POC Glucose 190 H 165 H Random Glucose 165 H Fasting Glucose Lactic Acid Lactic Acid F/U @ 2Hr Calcium 8.2 L Phosphorus Magnesium 2.4 Total Bilirubin 0.6 Direct Bilirubin 0.2 AST 34 H ALT 36 H Alkaline Phosphatase 90 Lactate Dehydrogenase Troponin I High Sens C-Reactive Protein NT-Pro-B Natriuret Pep 2375.3 H Total Protein 5.8 L Albumin 3.1 L Lipase Procalcitonin 0.05 Urine Color Urine Appearance Urine pH Ur Specific [place] Urine Protein Urine Glucose (UA) Urine Ketones Urine Blood Urine Nitrite Ur Leukocyte Esterase Nasal Screen MRSA (PCR) Nasal S. aureus Screen Nasal MRSA/S.aureus Interp Stool Occult Blood Vancomycin Trough Random Vancomycin Ur L.pneumophila Ag Ur Strep pneumoniae Ag Blood Type Antibody Screen JENNIFER, Polyspecific Positive JENNIFER Work-up Crossmatch 07/28/25 07/28/25 07/28/25: 16:15 20:09 WBC RBC Hgb Hct MCV MCH MCHC RDW Plt Count MPV Immature Gran % (Auto) Neut % (Auto) Lymph % (Auto) [place] % (Auto) Eos % (Auto) Baso % (Auto) Lymph # (Auto) [place] # (Auto) Eos # (Auto) Baso # (Auto) Abs Immat Gran (auto) Absolute Neuts (auto) Absolute Nucleated RBC Nucleated RBC % (auto) Neutrophils % (Manual) Band Neutrophils % Lymphocytes % (Manual) Atypical Lymphs % (Man) Monocytes % (Manual) Metamyelocytes % Myelocytes % Abs Neuts (Manual) Lymphocytes # (Manual) Monocytes # (Manual) Metamyelocytes # Myelocytes # Nucleated RBCs Toxic Granulation Toxic Vacuolation Dohle Bodies Platelet Estimate Large Platelets Plt Morphology Comment RBC Morphology Hypochromasia Microcytosis Target Cells Tear Drop Cells Ovalocytes [place] Cells Acanthocytes (Spur) Schistocytes Smear Tech's Comments Smear Path Review ESR Absolute Retic Percent Retic Immature Retic Fraction Retic Hgb Equivalent Hold Purple Top PT INR APTT Fibrinogen D-Dimer High Sensitivty O2 Saturation ABG pH at Pt Temp ABG pCO2 at Pt Temp ABG pO2 at Pt Temp ABG HCO3 ABG Base Excess (Actual) VBG pH VBG pCO2 VBG pO2 VBG HCO3 VBG O2 Saturation VBG Base Excess Sodium Potassium Chloride Carbon Dioxide Anion Gap BUN Creatinine Estim Creat Clear Calc Estimated GFR POC Glucose 261 H 266 H 254 H Random Glucose Fasting Glucose Lactic Acid Lactic Acid F/U @ 2Hr Calcium Phosphorus Magnesium Total Bilirubin Direct Bilirubin AST ALT Alkaline Phosphatase Lactate Dehydrogenase Troponin I High Sens C-Reactive Protein NT-Pro-B Natriuret Pep Total Protein Albumin Lipase Procalcitonin Urine Color Urine Appearance Urine pH Ur Specific [place] Urine Protein Urine Glucose (UA) Urine Ketones Urine Blood Urine Nitrite Ur Leukocyte Esterase Nasal Screen MRSA (PCR) Nasal S. aureus Screen Nasal MRSA/S.aureus Interp Stool Occult Blood Vancomycin Trough Random Vancomycin Ur L.pneumophila Ag Ur Strep pneumoniae Ag Blood Type Antibody Screen JENNIFER, Polyspecific Positive JENNIFER Work-up Crossmatch 07/29/25 07/29/25 07/29/25 06:56 07:15 10:57 WBC 19.3 H RBC 4.49 Hgb 10.0 L Hct 33.2 L MCV 73.9 L MCH 22.3 L MCHC 30.1 L RDW 22.2 H Plt Count 174 MPV 10.9 Immature Gran % (Auto) Neut % (Auto) Lymph % (Auto) [place] % (Auto) Eos % (Auto) Baso % (Auto) Lymph # (Auto) [place] # (Auto) Eos # (Auto) Baso # (Auto) Abs Immat Gran (auto) Absolute Neuts (auto) Absolute Nucleated RBC 0.020 H Nucleated RBC % (auto) 0.1 Neutrophils % (Manual) Band Neutrophils % Lymphocytes % (Manual) Atypical Lymphs % (Man) Monocytes % (Manual) Metamyelocytes % Myelocytes % Abs Neuts (Manual) Lymphocytes # (Manual) Monocytes # (Manual) Metamyelocytes # Myelocytes # Nucleated RBCs Toxic Granulation Toxic Vacuolation Dohle Bodies Platelet Estimate Large Platelets Plt Morphology Comment RBC Morphology Hypochromasia Microcytosis Target Cells Tear Drop Cells Ovalocytes [place] Cells Acanthocytes (Spur) Schistocytes Smear Tech's Comments Smear Path Review ESR Absolute Retic Percent Retic Immature Retic Fraction Retic Hgb Equivalent Hold Purple Top PT INR APTT Fibrinogen D-Dimer High Sensitivty O2 Saturation ABG pH at Pt Temp ABG pCO2 at Pt Temp ABG pO2 at Pt Temp ABG HCO3 ABG Base Excess (Actual) VBG pH VBG pCO2 VBG pO2 VBG HCO3 VBG O2 Saturation VBG Base Excess Sodium 140 Potassium 3.3 Chloride 98 Carbon Dioxide 35 H Anion Gap 10 L BUN 38 H Creatinine 0.86 Estim Creat Clear Calc 60.6 Estimated GFR > 60 POC Glucose 138 H 256 H Random Glucose 116 H Fasting Glucose Lactic Acid Lactic Acid F/U @ 2Hr Calcium 8.2 L Phosphorus Magnesium Total Bilirubin Direct Bilirubin AST ALT Alkaline Phosphatase Lactate Dehydrogenase Troponin I High Sens C-Reactive Protein NT-Pro-B Natriuret Pep Total Protein Albumin Lipase Procalcitonin Urine Color Urine Appearance Urine pH Ur Specific [place] Urine Protein Urine Glucose (UA) Urine Ketones Urine Blood Urine Nitrite Ur Leukocyte Esterase Nasal Screen MRSA (PCR) Nasal S. aureus Screen Nasal MRSA/S.aureus Interp Stool Occult Blood Vancomycin Trough Random Vancomycin Ur L.pneumophila Ag Ur Strep pneumoniae Ag Blood Type Antibody Screen JENNIFER, Polyspecific Positive JENNIFER Work-up Crossmatch 07/29/25 07/30/25 07/30/25 16:22 07:14 08:24 WBC 21.7 H RBC 4.51 Hgb 10.2 L Hct 34.2 L MCV 75.8 L MCH 22.6 L MCHC 29.8 L RDW 22.3 H Plt Count 162 MPV 11.0 Immature Gran % (Auto) Neut % (Auto) Lymph % (Auto) [place] % (Auto) Eos % (Auto) Baso % (Auto) Lymph # (Auto) [place] # (Auto) Eos # (Auto) Baso # (Auto) Abs Immat Gran (auto) Absolute Neuts (auto) Absolute Nucleated RBC 0.000 Nucleated RBC % (auto) 0.0 Neutrophils % (Manual) Band Neutrophils % Lymphocytes % (Manual) Atypical Lymphs % (Man) Monocytes % (Manual) Metamyelocytes % Myelocytes % Abs Neuts (Manual) Lymphocytes # (Manual) Monocytes # (Manual) Metamyelocytes # Myelocytes # Nucleated RBCs Toxic Granulation Toxic Vacuolation Dohle Bodies Platelet Estimate Large Platelets Plt Morphology Comment RBC Morphology Hypochromasia Microcytosis Target Cells Tear Drop Cells Ovalocytes [place] Cells Acanthocytes (Spur) Schistocytes Smear Tech's Comments Smear Path Review ESR Absolute Retic Percent Retic Immature Retic Fraction Retic Hgb Equivalent Hold Purple Top PT INR APTT Fibrinogen D-Dimer High Sensitivty O2 Saturation ABG pH at Pt Temp ABG pCO2 at Pt Temp ABG pO2 at Pt Temp ABG HCO3 ABG Base Excess (Actual) VBG pH VBG pCO2 VBG pO2 VBG HCO3 VBG O2 Saturation VBG Base Excess Sodium 143 Potassium 3.7 Chloride 100 Carbon Dioxide 34 H Anion Gap 13 BUN 40 H Creatinine 1.02 Estim Creat Clear Calc 51.1 Estimated GFR 53 POC Glucose 259 H 250 H Random Glucose 195 H Fasting Glucose Lactic Acid Lactic Acid F/U @ 2Hr Calcium 8.2 L Phosphorus Magnesium Total Bilirubin Direct Bilirubin AST ALT Alkaline Phosphatase Lactate Dehydrogenase Troponin I High Sens C-Reactive Protein NT-Pro-B Natriuret Pep Total Protein Albumin Lipase Procalcitonin Urine Color Urine Appearance Urine pH Ur Specific [place] Urine Protein Urine Glucose (UA) Urine Ketones Urine Blood Urine Nitrite Ur Leukocyte Esterase Nasal Screen MRSA (PCR) Nasal S. aureus Screen Nasal MRSA/S.aureus Interp Stool Occult Blood Vancomycin Trough Random Vancomycin Ur L.pneumophila Ag Ur Strep pneumoniae Ag Blood Type Antibody Screen JENNIFER, Polyspecific Positive JENNIFER Work-up Crossmatch 07/30/25 07/30/25 07/30/25 11:03 16:03 20:51 WBC RBC Hgb Hct MCV MCH MCHC RDW Plt Count MPV Immature Gran % (Auto) Neut % (Auto) Lymph % (Auto) [place] % (Auto) Eos % (Auto) Baso % (Auto) Lymph # (Auto) [place] # (Auto) Eos # (Auto) Baso # (Auto) Abs Immat Gran (auto) Absolute Neuts (auto) Absolute Nucleated RBC Nucleated RBC % (auto) Neutrophils % (Manual) Band Neutrophils % Lymphocytes % (Manual) Atypical Lymphs % (Man) Monocytes % (Manual) Metamyelocytes % Myelocytes % Abs Neuts (Manual) Lymphocytes # (Manual) Monocytes # (Manual) Metamyelocytes # Myelocytes # Nucleated RBCs Toxic Granulation Toxic Vacuolation Dohle Bodies Platelet Estimate Large Platelets Plt Morphology Comment RBC Morphology Hypochromasia Microcytosis Target Cells Tear Drop Cells Ovalocytes Ruby Cells Acanthocytes (Spur) Schistocytes Smear Tech's Comments Smear Path Review ESR Absolute Retic Percent Retic Immature Retic Fraction Retic Hgb Equivalent Hold Purple Top PT INR APTT Fibrinogen D-Dimer High Sensitivty O2 Saturation ABG pH at Pt Temp ABG pCO2 at Pt Temp ABG pO2 at Pt Temp ABG HCO3 ABG Base Excess (Actual) VBG pH VBG pCO2 VBG pO2 VBG HCO3 VBG O2 Saturation VBG Base Excess Sodium Potassium Chloride Carbon Dioxide Anion Gap BUN Creatinine Estim Creat Clear Calc Estimated GFR POC Glucose 278 H 337 H 339 H Random Glucose Fasting Glucose Lactic Acid Lactic Acid F/U @ 2Hr Calcium Phosphorus Magnesium Total Bilirubin Direct Bilirubin AST ALT Alkaline Phosphatase Lactate Dehydrogenase Troponin I High Sens C-Reactive Protein NT-Pro-B Natriuret Pep Total Protein Albumin Lipase Procalcitonin Urine Color Urine Appearance Urine pH Ur Specific [place] Urine Protein Urine Glucose (UA) Urine Ketones Urine Blood Urine Nitrite Ur Leukocyte Esterase Nasal Screen MRSA (PCR) Nasal S. aureus Screen Nasal MRSA/S.aureus Interp Stool Occult Blood Vancomycin Trough Random Vancomycin Ur L.pneumophila Ag Ur Strep pneumoniae Ag Blood Type Antibody Screen JENNIFER, Polyspecific Positive JENNIFER Work-up Crossmatch 07/31/25 07/31/25 07/31/25 06:31 07:06 11:07 WBC 22.7 H RBC 4.39 Hgb 10.1 L Hct 32.5 L MCV 74.0 L MCH 23.0 L MCHC 31.1 RDW 23.0 H Plt Count 110 L D MPV TNP Immature Gran % (Auto) 1.0 H Neut % (Auto) 95.7 H Lymph % (Auto) 1.1 L [place] % (Auto) 2.0 Eos % (Auto) 0.0 Baso % (Auto) 0.2 Lymph # (Auto) 0.3 L [place] # (Auto) 0.5 Eos # (Auto) 0.0 Baso # (Auto) 0.0 Abs Immat Gran (auto) 0.23 H Absolute Neuts (auto) 21.7 H Absolute Nucleated RBC 0.000 Nucleated RBC % (auto) 0.0 Neutrophils % (Manual) Band Neutrophils % Lymphocytes % (Manual) Atypical Lymphs % (Man) Monocytes % (Manual) Metamyelocytes % Myelocytes % Abs Neuts (Manual) Lymphocytes # (Manual) Monocytes # (Manual) Metamyelocytes # Myelocytes # Nucleated RBCs Toxic Granulation Toxic Vacuolation Dohle Bodies Platelet Estimate Large Platelets Plt Morphology Comment RBC Morphology Hypochromasia Microcytosis Target Cells Tear Drop Cells Ovalocytes [place] Cells Acanthocytes (Spur) Schistocytes Smear Tech's Comments VERIFIED Smear Path Review ESR Absolute Retic Percent Retic Immature Retic Fraction Retic Hgb Equivalent Hold Purple Top PT INR APTT Fibrinogen D-Dimer High Sensitivty O2 Saturation ABG pH at Pt Temp ABG pCO2 at Pt Temp ABG pO2 at Pt Temp ABG HCO3 ABG Base Excess (Actual) VBG pH VBG pCO2 VBG pO2 VBG HCO3 VBG O2 Saturation VBG Base Excess Sodium 146 H Potassium 3.6 Chloride 105 Carbon Dioxide 30 H Anion Gap 15 BUN 48 H Creatinine 0.99 Estim Creat Clear Calc 52.7 Estimated GFR 55 POC Glucose 183 H 272 H Random Glucose Fasting Glucose 177 H Lactic Acid Lactic Acid F/U @ 2Hr Calcium 8.3 L Phosphorus Magnesium Total Bilirubin 0.7 Direct Bilirubin AST 40 H ALT 46 H Alkaline Phosphatase 87 Lactate Dehydrogenase Troponin I High Sens C-Reactive Protein NT-Pro-B Natriuret Pep Total Protein 5.6 L Albumin 2.9 L Lipase Procalcitonin Urine Color Urine Appearance Urine pH Ur Specific [place] Urine Protein Urine Glucose (UA) Urine Ketones Urine Blood Urine Nitrite Ur Leukocyte Esterase Nasal Screen MRSA (PCR) Nasal S. aureus Screen Nasal MRSA/S.aureus Interp Stool Occult Blood Vancomycin Trough Random Vancomycin Ur L.pneumophila Ag Ur Strep pneumoniae Ag Blood Type Antibody Screen JENNIFER, Polyspecific Positive JENNIFER Work-up Crossmatch 07/31/25 07/31/25 08/01/25 16:09 20:21 06:06 WBC 22.1 H RBC 4.16 L Hgb 9.5 L Hct 31.7 L MCV 76.2 L MCH 22.8 L MCHC 30.0 L RDW 23.4 H Plt Count 93 L MPV Not Reportable Immature Gran % (Auto) Cancelled Neut % (Auto) Cancelled Lymph % (Auto) Cancelled [place] % (Auto) Cancelled Eos % (Auto) Cancelled Baso % (Auto) Cancelled Lymph # (Auto) Cancelled [place] # (Auto) Cancelled Eos # (Auto) Cancelled Baso # (Auto) Cancelled Abs Immat Gran (auto) Cancelled Absolute Neuts (auto) Cancelled Absolute Nucleated RBC 0.000 Nucleated RBC % (auto) 0.0 Neutrophils % (Manual) 97 H Band Neutrophils % 0 L Lymphocytes % (Manual) 2 L Atypical Lymphs % (Man) Monocytes % (Manual) 1 L Metamyelocytes % Myelocytes % Abs Neuts (Manual) 21.4 H Lymphocytes # (Manual) 0.4 L Monocytes # (Manual) 0.2 Metamyelocytes # Myelocytes # Nucleated RBCs Toxic Granulation Toxic Vacuolation Dohle Bodies Platelet Estimate DECREASED Large Platelets PRESENT Plt Morphology Comment NOTED RBC Morphology NOTED Hypochromasia Microcytosis 2+ (15-30) Target Cells Tear Drop Cells Ovalocytes [place] Cells 3+ (>5) Acanthocytes (Spur) 3+ (>5) Schistocytes 1+ (0-2) Smear Tech's Comments Smear Path Review ESR Absolute Retic Percent Retic Immature Retic Fraction Retic Hgb Equivalent Hold Purple Top PT INR APTT Fibrinogen D-Dimer High Sensitivty O2 Saturation ABG pH at Pt Temp ABG pCO2 at Pt Temp ABG pO2 at Pt Temp ABG HCO3 ABG Base Excess (Actual) VBG pH VBG pCO2 VBG pO2 VBG HCO3 VBG O2 Saturation VBG Base Excess Sodium 146 H Potassium 3.1 L Chloride 106 Carbon Dioxide 30 H Anion Gap 13 BUN 44 H Creatinine 0.95 Estim Creat Clear Calc 54.9 Estimated GFR 57 POC Glucose 258 H 263 H Random Glucose Fasting Glucose 172 H Lactic Acid Lactic Acid F/U @ 2Hr Calcium 8.1 L Phosphorus Magnesium Total Bilirubin 0.9 Direct Bilirubin AST 43 H ALT 56 H Alkaline Phosphatase 85 Lactate Dehydrogenase Troponin I High Sens C-Reactive Protein NT-Pro-B Natriuret Pep Total Protein 5.5 L Albumin 2.8 L Lipase Procalcitonin Urine Color Urine Appearance Urine pH Ur Specific [place] Urine Protein Urine Glucose (UA) Urine Ketones Urine Blood Urine Nitrite Ur Leukocyte Esterase Nasal Screen MRSA (PCR) Nasal S. aureus Screen Nasal MRSA/S.aureus Interp Stool Occult Blood Vancomycin Trough 14.5 Random Vancomycin Ur L.pneumophila Ag Ur Strep pneumoniae Ag Blood Type Antibody Screen JENNIFER, Polyspecific Positive JENNIFER Work-up Crossmatch 08/01/25 08/01/25 08/01/25 07:20 10:43 11:23 WBC RBC Hgb Hct MCV MCH MCHC RDW Plt Count MPV Immature Gran % (Auto) Neut % (Auto) Lymph % (Auto) [place] % (Auto) Eos % (Auto) Baso % (Auto) Lymph # (Auto) [place] # (Auto) Eos # (Auto) Baso # (Auto) Abs Immat Gran (auto) Absolute Neuts (auto) Absolute Nucleated RBC Nucleated RBC % (auto) Neutrophils % (Manual) Band Neutrophils % Lymphocytes % (Manual) Atypical Lymphs % (Man) Monocytes % (Manual) Metamyelocytes % Myelocytes % Abs Neuts (Manual) Lymphocytes # (Manual) Monocytes # (Manual) Metamyelocytes # Myelocytes # Nucleated RBCs Toxic Granulation Toxic Vacuolation Dohle Bodies Platelet Estimate Large Platelets Plt Morphology Comment RBC Morphology Hypochromasia Microcytosis Target Cells Tear Drop Cells Ovalocytes [place] Cells Acanthocytes (Spur) Schistocytes Smear Tech's Comments Smear Path Review ESR Absolute Retic Percent Retic Immature Retic Fraction Retic Hgb Equivalent Hold Purple Top PT INR APTT Fibrinogen D-Dimer High Sensitivty O2 Saturation ABG pH at Pt Temp ABG pCO2 at Pt Temp ABG pO2 at Pt Temp ABG HCO3 ABG Base Excess (Actual) VBG pH 7.59 H VBG pCO2 38 VBG pO2 34 VBG HCO3 37 H VBG O2 Saturation 48.0 VBG Base Excess 14.4 Sodium Potassium Chloride Carbon Dioxide Anion Gap BUN Creatinine Estim Creat Clear Calc Estimated GFR POC Glucose 189 H 146 H Random Glucose Fasting Glucose Lactic Acid Lactic Acid F/U @ 2Hr Calcium Phosphorus Magnesium Total Bilirubin Direct Bilirubin AST ALT Alkaline Phosphatase Lactate Dehydrogenase Troponin I High Sens C-Reactive Protein NT-Pro-B Natriuret Pep Total Protein Albumin Lipase Procalcitonin Urine Color Urine Appearance Urine pH Ur Specific [place] Urine Protein Urine Glucose (UA) Urine Ketones Urine Blood Urine Nitrite Ur Leukocyte Esterase Nasal Screen MRSA (PCR) Nasal S. aureus Screen Nasal MRSA/S.aureus Interp Stool Occult Blood Vancomycin Trough Random Vancomycin Ur L.pneumophila Ag Ur Strep pneumoniae Ag Blood Type Antibody Screen JENNIFER, Polyspecific Positive JENNIFER Work-up Crossmatch 08/01/25 08/01/25 08/02/25 16:33 21:09 06:24 WBC 21.3 H RBC 4.11 L Hgb 9.5 L Hct 30.8 L MCV 74.9 L MCH 23.1 L MCHC 30.8 L RDW 24.1 H Plt Count 83 L MPV Not Reportable Immature Gran % (Auto) 0.7 H Neut % (Auto) 96.4 H Lymph % (Auto) 1.3 L [place] % (Auto) 1.4 L Eos % (Auto) 0.0 Baso % (Auto) 0.2 Lymph # (Auto) 0.3 L [place] # (Auto) 0.3 Eos # (Auto) 0.0 Baso # (Auto) 0.1 Abs Immat Gran (auto) 0.15 H Absolute Neuts (auto) 20.5 H Absolute Nucleated RBC 0.000 Nucleated RBC % (auto) 0.0 Neutrophils % (Manual) Band Neutrophils % Lymphocytes % (Manual) Atypical Lymphs % (Man) Monocytes % (Manual) Metamyelocytes % Myelocytes % Abs Neuts (Manual) Lymphocytes # (Manual) Monocytes # (Manual) Metamyelocytes # Myelocytes # Nucleated RBCs Toxic Granulation Toxic Vacuolation Dohle Bodies Platelet Estimate Large Platelets Plt Morphology Comment RBC Morphology Hypochromasia Microcytosis Target Cells Tear Drop Cells Ovalocytes Ruby Cells Acanthocytes (Spur) Schistocytes Smear Tech's Comments VERIFIED Smear Path Review ESR Absolute Retic Percent Retic Immature Retic Fraction Retic Hgb Equivalent Hold Purple Top PT INR APTT Fibrinogen D-Dimer High Sensitivty O2 Saturation ABG pH at Pt Temp ABG pCO2 at Pt Temp ABG pO2 at Pt Temp ABG HCO3 ABG Base Excess (Actual) VBG pH VBG pCO2 VBG pO2 VBG HCO3 VBG O2 Saturation VBG Base Excess Sodium 148 H Potassium 2.6 L* Chloride 106 Carbon Dioxide 33 H Anion Gap 12 BUN 46 H Creatinine 0.96 Estim Creat Clear Calc 54.3 Estimated GFR 57 POC Glucose 186 H 194 H Random Glucose Fasting Glucose 112 H Lactic Acid Lactic Acid F/U @ 2Hr Calcium 8.4 Phosphorus Magnesium 2.5 Total Bilirubin 1.1 H Direct Bilirubin AST 47 H ALT 67 H Alkaline Phosphatase 95 Lactate Dehydrogenase Troponin I High Sens C-Reactive Protein NT-Pro-B Natriuret Pep Total Protein 5.7 L Albumin 2.9 L Lipase Procalcitonin 0.19 Urine Color Urine Appearance Urine pH Ur Specific [place] Urine Protein Urine Glucose (UA) Urine Ketones Urine Blood Urine Nitrite Ur Leukocyte Esterase Nasal Screen MRSA (PCR) Nasal S. aureus Screen Nasal MRSA/S.aureus Interp Stool Occult Blood Vancomycin Trough Random Vancomycin 17.0 Ur L.pneumophila Ag Ur Strep pneumoniae Ag Blood Type Antibody Screen JENNIFER, Polyspecific Positive JENNIFER Work-up Crossmatch 08/02/25 08/02/25 08/02/25 06:50 10:23 10:53 WBC RBC Hgb Hct MCV MCH MCHC RDW Plt Count MPV Immature Gran % (Auto) Neut % (Auto) Lymph % (Auto) [place] % (Auto) Eos % (Auto) Baso % (Auto) Lymph # (Auto) [place] # (Auto) Eos # (Auto) Baso # (Auto) Abs Immat Gran (auto) Absolute Neuts (auto) Absolute Nucleated RBC Nucleated RBC % (auto) Neutrophils % (Manual) Band Neutrophils % Lymphocytes % (Manual) Atypical Lymphs % (Man) Monocytes % (Manual) Metamyelocytes % Myelocytes % Abs Neuts (Manual) Lymphocytes # (Manual) Monocytes # (Manual) Metamyelocytes # Myelocytes # Nucleated RBCs Toxic Granulation Toxic Vacuolation Dohle Bodies Platelet Estimate Large Platelets Plt Morphology Comment RBC Morphology Hypochromasia Microcytosis Target Cells Tear Drop Cells Ovalocytes [place] Cells Acanthocytes (Spur) Schistocytes Smear Tech's Comments Smear Path Review ESR Absolute Retic Percent Retic Immature Retic Fraction Retic Hgb Equivalent Hold Purple Top PT INR APTT Fibrinogen D-Dimer High Sensitivty O2 Saturation ABG pH at Pt Temp ABG pCO2 at Pt Temp ABG pO2 at Pt Temp ABG HCO3 ABG Base Excess (Actual) VBG pH VBG pCO2 VBG pO2 VBG HCO3 VBG O2 Saturation VBG Base Excess Sodium Potassium Chloride Carbon Dioxide Anion Gap BUN Creatinine Estim Creat Clear Calc Estimated GFR POC Glucose 107 108 Random Glucose Fasting Glucose Lactic Acid Lactic Acid F/U @ 2Hr Calcium Phosphorus Magnesium Total Bilirubin Direct Bilirubin AST ALT Alkaline Phosphatase Lactate Dehydrogenase Troponin I High Sens C-Reactive Protein NT-Pro-B Natriuret Pep Total Protein Albumin Lipase Procalcitonin Urine Color Urine Appearance Urine pH Ur Specific [place] Urine Protein Urine Glucose (UA) Urine Ketones Urine Blood Urine Nitrite Ur Leukocyte Esterase Nasal Screen MRSA (PCR) NEGATIVE Nasal S. aureus Screen NEGATIVE Nasal MRSA/S.aureus Interp SEE NOTE Stool Occult Blood Vancomycin Trough Random Vancomycin Ur L.pneumophila Ag Not Detected Ur Strep pneumoniae Ag Not Detected Blood Type Antibody Screen JENNIFER, Polyspecific Positive JENNIFER Work-up Crossmatch 08/02/25 08/02/25 08/03/25 16:24 20:37 00:01 WBC 16.2 H RBC 3.74 L Hgb 8.6 L Hct 28.3 L MCV 75.7 L MCH 23.0 L MCHC 30.4 L RDW 24.0 H Plt Count 56 L D MPV Not Reportable Immature Gran % (Auto) 0.5 H Neut % (Auto) 96.7 H Lymph % (Auto) 1.2 L [place] % (Auto) 1.4 L Eos % (Auto) 0.0 Baso % (Auto) 0.2 Lymph # (Auto) 0.2 L [place] # (Auto) 0.2 Eos # (Auto) 0.0 Baso # (Auto) 0.0 Abs Immat Gran (auto) 0.08 H Absolute Neuts (auto) 15.7 H Absolute Nucleated RBC 0.000 Nucleated RBC % (auto) 0.0 Neutrophils % (Manual) Band Neutrophils % Lymphocytes % (Manual) Atypical Lymphs % (Man) Monocytes % (Manual) Metamyelocytes % Myelocytes % Abs Neuts (Manual) Lymphocytes # (Manual) Monocytes # (Manual) Metamyelocytes # Myelocytes # Nucleated RBCs Toxic Granulation Toxic Vacuolation Dohle Bodies Platelet Estimate Large Platelets Plt Morphology Comment RBC Morphology Hypochromasia Microcytosis Target Cells Tear Drop Cells Ovalocytes [place] Cells Acanthocytes (Spur) Schistocytes Smear Tech's Comments VERIFIED Smear Path Review ESR Absolute Retic Percent Retic Immature Retic Fraction Retic Hgb Equivalent Hold Purple Top PT INR APTT Fibrinogen D-Dimer High Sensitivty O2 Saturation ABG pH at Pt Temp ABG pCO2 at Pt Temp ABG pO2 at Pt Temp ABG HCO3 ABG Base Excess (Actual) VBG pH VBG pCO2 VBG pO2 VBG HCO3 VBG O2 Saturation VBG Base Excess Sodium 145 Potassium 3.4 D Chloride 105 Carbon Dioxide 30 H Anion Gap 13 BUN 51 H Creatinine 1.13 Estim Creat Clear Calc 46.2 Estimated GFR 47 POC Glucose 116 H 245 H Random Glucose 254 H Fasting Glucose Lactic Acid Lactic Acid F/U @ 2Hr Calcium 7.8 L D Phosphorus Magnesium 2.3 Total Bilirubin Direct Bilirubin AST ALT Alkaline Phosphatase Lactate Dehydrogenase Troponin I High Sens C-Reactive Protein NT-Pro-B Natriuret Pep 4275.9 H Total Protein Albumin Lipase Procalcitonin Urine Color Urine Appearance Urine pH Ur Specific [place] Urine Protein Urine Glucose (UA) Urine Ketones Urine Blood Urine Nitrite Ur Leukocyte Esterase Nasal Screen MRSA (PCR) Nasal S. aureus Screen Nasal MRSA/S.aureus Interp Stool Occult Blood Vancomycin Trough Random Vancomycin Ur L.pneumophila Ag Ur Strep pneumoniae Ag Blood Type Antibody Screen JENNIFER, Polyspecific Positive JENNIFER Work-up Crossmatch 08/03/25 08/03/25 08/03/25 00:08 06:25 07:24 WBC 16.0 H RBC 3.70 L Hgb 8.5 L Hct 28.1 L MCV 75.9 L MCH 23.0 L MCHC 30.2 L RDW 24.2 H Plt Count 57 L MPV Not Reportable Immature Gran % (Auto) Neut % (Auto) Lymph % (Auto) [place] % (Auto) Eos % (Auto) Baso % (Auto) Lymph # (Auto) [place] # (Auto) Eos # (Auto) Baso # (Auto) Abs Immat Gran (auto) Absolute Neuts (auto) Absolute Nucleated RBC 0.000 Nucleated RBC % (auto) 0.0 Neutrophils % (Manual) Band Neutrophils % Lymphocytes % (Manual) Atypical Lymphs % (Man) Monocytes % (Manual) Metamyelocytes % Myelocytes % Abs Neuts (Manual) Lymphocytes # (Manual) Monocytes # (Manual) Metamyelocytes # Myelocytes # Nucleated RBCs Toxic Granulation Toxic Vacuolation Dohle Bodies Platelet Estimate Large Platelets Plt Morphology Comment RBC Morphology Hypochromasia Microcytosis Target Cells Tear Drop Cells Ovalocytes Ruby Cells Acanthocytes (Spur) Schistocytes Smear Tech's Comments Smear Path Review ESR Absolute Retic Percent Retic Immature Retic Fraction Retic Hgb Equivalent Hold Purple Top PT INR APTT Fibrinogen D-Dimer High Sensitivty O2 Saturation ABG pH at Pt Temp ABG pCO2 at Pt Temp ABG pO2 at Pt Temp ABG HCO3 ABG Base Excess (Actual) VBG pH 7.49 H VBG pCO2 47 VBG pO2 52 VBG HCO3 36 H VBG O2 Saturation 77.0 VBG Base Excess 12.2 Sodium 145 Potassium 3.6 Chloride 105 Carbon Dioxide 30 H Anion Gap 14 BUN 58 H Creatinine 1.13 Estim Creat Clear Calc 46.2 Estimated GFR 47 POC Glucose 193 H Random Glucose 211 H Fasting Glucose Lactic Acid Lactic Acid F/U @ 2Hr Calcium 8.0 L Phosphorus Magnesium 2.5 Total Bilirubin Direct Bilirubin AST ALT Alkaline Phosphatase Lactate Dehydrogenase Troponin I High Sens C-Reactive Protein NT-Pro-B Natriuret Pep 3764.4 H Total Protein Albumin Lipase Procalcitonin Urine Color Urine Appearance Urine pH Ur Specific [place] Urine Protein Urine Glucose (UA) Urine Ketones Urine Blood Urine Nitrite Ur Leukocyte Esterase Nasal Screen MRSA (PCR) Nasal S. aureus Screen Nasal MRSA/S.aureus Interp Stool Occult Blood Vancomycin Trough Random Vancomycin Ur L.pneumophila Ag Ur Strep pneumoniae Ag Blood Type Antibody Screen JENNIFER, Polyspecific Positive JENNIFER Work-up Crossmatch 08/03/25 08/03/25 08/03/25 11:24 16:07 20:02 WBC RBC Hgb Hct MCV MCH MCHC RDW Plt Count MPV Immature Gran % (Auto) Neut % (Auto) Lymph % (Auto) [place] % (Auto) Eos % (Auto) Baso % (Auto) Lymph # (Auto) [place] # (Auto) Eos # (Auto) Baso # (Auto) Abs Immat Gran (auto) Absolute Neuts (auto) Absolute Nucleated RBC Nucleated RBC % (auto) Neutrophils % (Manual) Band Neutrophils % Lymphocytes % (Manual) Atypical Lymphs % (Man) Monocytes % (Manual) Metamyelocytes % Myelocytes % Abs Neuts (Manual) Lymphocytes # (Manual) Monocytes # (Manual) Metamyelocytes # Myelocytes # Nucleated RBCs Toxic Granulation Toxic Vacuolation Dohle Bodies Platelet Estimate Large Platelets Plt Morphology Comment RBC Morphology Hypochromasia Microcytosis Target Cells Tear Drop Cells Ovalocytes [place] Cells Acanthocytes (Spur) Schistocytes Smear Tech's Comments Smear Path Review ESR Absolute Retic Percent Retic Immature Retic Fraction Retic Hgb Equivalent Hold Purple Top PT INR APTT Fibrinogen D-Dimer High Sensitivty O2 Saturation ABG pH at Pt Temp ABG pCO2 at Pt Temp ABG pO2 at Pt Temp ABG HCO3 ABG Base Excess (Actual) VBG pH VBG pCO2 VBG pO2 VBG HCO3 VBG O2 Saturation VBG Base Excess Sodium Potassium Chloride Carbon Dioxide Anion Gap BUN Creatinine Estim Creat Clear Calc Estimated GFR POC Glucose 276 H 180 H 256 H Random Glucose Fasting Glucose Lactic Acid Lactic Acid F/U @ 2Hr Calcium Phosphorus Magnesium Total Bilirubin Direct Bilirubin AST ALT Alkaline Phosphatase Lactate Dehydrogenase Troponin I High Sens C-Reactive Protein NT-Pro-B Natriuret Pep Total Protein Albumin Lipase Procalcitonin Urine Color Urine Appearance Urine pH Ur Specific [place] Urine Protein Urine Glucose (UA) Urine Ketones Urine Blood Urine Nitrite Ur Leukocyte Esterase Nasal Screen MRSA (PCR) Nasal S. aureus Screen Nasal MRSA/S.aureus Interp Stool Occult Blood Vancomycin Trough Random Vancomycin Ur L.pneumophila Ag Ur Strep pneumoniae Ag Blood Type Antibody Screen JENNIFER, Polyspecific Positive JENNIFER Work-up Crossmatch 08/04/25 08/04/25 08/04/25 06:48 06:54 10:49 WBC 10.0 RBC 3.17 L Hgb 7.2 L Hct 24.0 L MCV 75.7 L MCH 22.7 L MCHC 30.0 L RDW 23.9 H Plt Count 56 L MPV TNP Immature Gran % (Auto) Neut % (Auto) Lymph % (Auto) [place] % (Auto) Eos % (Auto) Baso % (Auto) Lymph # (Auto) [place] # (Auto) Eos # (Auto) Baso # (Auto) Abs Immat Gran (auto) Absolute Neuts (auto) Absolute Nucleated RBC 0.000 Nucleated RBC % (auto) 0.0 Neutrophils % (Manual) Band Neutrophils % Lymphocytes % (Manual) Atypical Lymphs % (Man) Monocytes % (Manual) Metamyelocytes % Myelocytes % Abs Neuts (Manual) Lymphocytes # (Manual) Monocytes # (Manual) Metamyelocytes # Myelocytes # Nucleated RBCs Toxic Granulation Toxic Vacuolation Dohle Bodies Platelet Estimate Large Platelets Plt Morphology Comment RBC Morphology Hypochromasia Microcytosis Target Cells Tear Drop Cells Ovalocytes [place] Cells Acanthocytes (Spur) Schistocytes Smear Tech's Comments Smear Path Review ESR Absolute Retic Percent Retic Immature Retic Fraction Retic Hgb Equivalent Hold Purple Top PT INR APTT Fibrinogen D-Dimer High Sensitivty O2 Saturation ABG pH at Pt Temp ABG pCO2 at Pt Temp ABG pO2 at Pt Temp ABG HCO3 ABG Base Excess (Actual) VBG pH VBG pCO2 VBG pO2 VBG HCO3 VBG O2 Saturation VBG Base Excess Sodium 144 Potassium 4.2 Chloride 108 Carbon Dioxide 26 Anion Gap 14 BUN 80 H Creatinine 1.52 H Estim Creat Clear Calc 34.3 Estimated GFR 33 POC Glucose 296 H 282 H Random Glucose 285 H Fasting Glucose Lactic Acid Lactic Acid F/U @ 2Hr Calcium 7.7 L Phosphorus Magnesium 2.4 Total Bilirubin Direct Bilirubin AST ALT Alkaline Phosphatase Lactate Dehydrogenase Troponin I High Sens C-Reactive Protein NT-Pro-B Natriuret Pep 3213.4 H Total Protein Albumin Lipase Procalcitonin Urine Color Urine Appearance Urine pH Ur Specific [place] Urine Protein Urine Glucose (UA) Urine Ketones Urine Blood Urine Nitrite Ur Leukocyte Esterase Nasal Screen MRSA (PCR) Nasal S. aureus Screen Nasal MRSA/S.aureus Interp Stool Occult Blood Vancomycin Trough Random Vancomycin Ur L.pneumophila Ag Ur Strep pneumoniae Ag Blood Type Antibody Screen JENNIFER, Polyspecific Positive JENNIFER Work-up Crossmatch 08/04/25 08/04/25 08/04/25 14:19 15:56 20:03 WBC RBC Hgb Hct MCV MCH MCHC RDW Plt Count MPV Immature Gran % (Auto) Neut % (Auto) Lymph % (Auto) [place] % (Auto) Eos % (Auto) Baso % (Auto) Lymph # (Auto) [place] # (Auto) Eos # (Auto) Baso # (Auto) Abs Immat Gran (auto) Absolute Neuts (auto) Absolute Nucleated RBC Nucleated RBC % (auto) Neutrophils % (Manual) Band Neutrophils % Lymphocytes % (Manual) Atypical Lymphs % (Man) Monocytes % (Manual) Metamyelocytes % Myelocytes % Abs Neuts (Manual) Lymphocytes # (Manual) Monocytes # (Manual) Metamyelocytes # Myelocytes # Nucleated RBCs Toxic Granulation Toxic Vacuolation Dohle Bodies Platelet Estimate Large Platelets Plt Morphology Comment RBC Morphology Hypochromasia Microcytosis Target Cells Tear Drop Cells Ovalocytes Ruby Cells Acanthocytes (Spur) Schistocytes Smear Tech's Comments Smear Path Review ESR Absolute Retic Percent Retic Immature Retic Fraction Retic Hgb Equivalent Hold Purple Top PT INR APTT Fibrinogen D-Dimer High Sensitivty O2 Saturation ABG pH at Pt Temp ABG pCO2 at Pt Temp ABG pO2 at Pt Temp ABG HCO3 ABG Base Excess (Actual) VBG pH VBG pCO2 VBG pO2 VBG HCO3 VBG O2 Saturation VBG Base Excess Sodium Potassium Chloride Carbon Dioxide Anion Gap BUN Creatinine Estim Creat Clear Calc Estimated GFR POC Glucose 173 H 160 H Random Glucose Fasting Glucose Lactic Acid Lactic Acid F/U @ 2Hr Calcium Phosphorus Magnesium Total Bilirubin Direct Bilirubin AST ALT Alkaline Phosphatase Lactate Dehydrogenase Troponin I High Sens C-Reactive Protein NT-Pro-B Natriuret Pep Total Protein Albumin Lipase Procalcitonin Urine Color Urine Appearance Urine pH Ur Specific [place] Urine Protein Urine Glucose (UA) Urine Ketones Urine Blood Urine Nitrite Ur Leukocyte Esterase Nasal Screen MRSA (PCR) Nasal S. aureus Screen Nasal MRSA/S.aureus Interp Stool Occult Blood Vancomycin Trough Random Vancomycin Ur L.pneumophila Ag Ur Strep pneumoniae Ag Blood Type A Positive Antibody Screen NEGATIVE JENNIFER, Polyspecific Positive JENNIFER Work-up Crossmatch See Detail 08/05/25 08/05/25 08/05/25 06:49 06:52 09:51 WBC 4.8 RBC 3.15 L Hgb 7.9 L Hct 24.0 L MCV 76.2 L MCH 25.1 L MCHC 32.9 RDW 23.0 H Plt Count 29 L D MPV TNP Immature Gran % (Auto) Neut % (Auto) Lymph % (Auto) [place] % (Auto) Eos % (Auto) Baso % (Auto) Lymph # (Auto) [place] # (Auto) Eos # (Auto) Baso # (Auto) Abs Immat Gran (auto) Absolute Neuts (auto) Absolute Nucleated RBC 0.000 Nucleated RBC % (auto) 0.0 Neutrophils % (Manual) Band Neutrophils % Lymphocytes % (Manual) Atypical Lymphs % (Man) Monocytes % (Manual) Metamyelocytes % Myelocytes % Abs Neuts (Manual) Lymphocytes # (Manual) Monocytes # (Manual) Metamyelocytes # Myelocytes # Nucleated RBCs Toxic Granulation Toxic Vacuolation Dohle Bodies Platelet Estimate Large Platelets Plt Morphology Comment RBC Morphology Hypochromasia Microcytosis Target Cells Tear Drop Cells Ovalocytes [place] Cells Acanthocytes (Spur) Schistocytes Smear Tech's Comments Smear Path Review ESR Absolute Retic Percent Retic Immature Retic Fraction Retic Hgb Equivalent Hold Purple Top PT INR APTT Fibrinogen D-Dimer High Sensitivty O2 Saturation ABG pH at Pt Temp ABG pCO2 at Pt Temp ABG pO2 at Pt Temp ABG HCO3 ABG Base Excess (Actual) VBG pH VBG pCO2 VBG pO2 VBG HCO3 VBG O2 Saturation VBG Base Excess Sodium 145 Potassium 5.0 Chloride 112 H Carbon Dioxide 21 L Anion Gap 17 BUN 93 H Creatinine 1.74 H Estim Creat Clear Calc 29.9 Estimated GFR 28 POC Glucose 235 H Random Glucose 242 H Fasting Glucose Lactic Acid Lactic Acid F/U @ 2Hr Calcium 8.0 L Phosphorus Magnesium 2.6 Total Bilirubin Direct Bilirubin AST ALT Alkaline Phosphatase Lactate Dehydrogenase Troponin I High Sens C-Reactive Protein NT-Pro-B Natriuret Pep 3118.6 H Total Protein Albumin Lipase Procalcitonin 1.06 Urine Color Urine Appearance Urine pH Ur Specific [place] Urine Protein Urine Glucose (UA) Urine Ketones Urine Blood Urine Nitrite Ur Leukocyte Esterase Nasal Screen MRSA (PCR) Nasal S. aureus Screen Nasal MRSA/S.aureus Interp Stool Occult Blood Vancomycin Trough Random Vancomycin Ur L.pneumophila Ag Ur Strep pneumoniae Ag Blood Type Antibody Screen JENNIFER, Polyspecific Positive JENNIFER Work-up Crossmatch 08/05/25 08/05/25 08/05/25 10:59 16:25 18:50 WBC RBC Hgb Hct MCV MCH MCHC RDW Plt Count MPV Immature Gran % (Auto) Neut % (Auto) Lymph % (Auto) [place] % (Auto) Eos % (Auto) Baso % (Auto) Lymph # (Auto) [place] # (Auto) Eos # (Auto) Baso # (Auto) Abs Immat Gran (auto) Absolute Neuts (auto) Absolute Nucleated RBC Nucleated RBC % (auto) Neutrophils % (Manual) Band Neutrophils % Lymphocytes % (Manual) Atypical Lymphs % (Man) Monocytes % (Manual) Metamyelocytes % Myelocytes % Abs Neuts (Manual) Lymphocytes # (Manual) Monocytes # (Manual) Metamyelocytes # Myelocytes # Nucleated RBCs Toxic Granulation Toxic Vacuolation Dohle Bodies Platelet Estimate Large Platelets Plt Morphology Comment RBC Morphology Hypochromasia Microcytosis Target Cells Tear Drop Cells Ovalocytes Ruby Cells Acanthocytes (Spur) Schistocytes Smear Tech's Comments Smear Path Review ESR Absolute Retic Percent Retic Immature Retic Fraction Retic Hgb Equivalent Hold Purple Top PT INR APTT Fibrinogen D-Dimer High Sensitivty O2 Saturation ABG pH at Pt Temp ABG pCO2 at Pt Temp ABG pO2 at Pt Temp ABG HCO3 ABG Base Excess (Actual) VBG pH VBG pCO2 VBG pO2 VBG HCO3 VBG O2 Saturation VBG Base Excess Sodium Potassium Chloride Carbon Dioxide Anion Gap BUN Creatinine Estim Creat Clear Calc Estimated GFR POC Glucose 259 H 199 H 196 H Random Glucose Fasting Glucose Lactic Acid Lactic Acid F/U @ 2Hr Calcium Phosphorus Magnesium Total Bilirubin Direct Bilirubin AST ALT Alkaline Phosphatase Lactate Dehydrogenase Troponin I High Sens C-Reactive Protein NT-Pro-B Natriuret Pep Total Protein Albumin Lipase Procalcitonin Urine Color Urine Appearance Urine pH Ur Specific [place] Urine Protein Urine Glucose (UA) Urine Ketones Urine Blood Urine Nitrite Ur Leukocyte Esterase Nasal Screen MRSA (PCR) Nasal S. aureus Screen Nasal MRSA/S.aureus Interp Stool Occult Blood Vancomycin Trough Random Vancomycin Ur L.pneumophila Ag Ur Strep pneumoniae Ag Blood Type Antibody Screen JENNIFER, Polyspecific Positive JENNIFER Work-up Crossmatch 08/05/25 08/05/25 08/05/25 19:06 19:21 20:05 WBC RBC Hgb Hct MCV MCH MCHC RDW Plt Count MPV Immature Gran % (Auto) Neut % (Auto) Lymph % (Auto) [place] % (Auto) Eos % (Auto) Baso % (Auto) Lymph # (Auto) [place] # (Auto) Eos # (Auto) Baso # (Auto) Abs Immat Gran (auto) Absolute Neuts (auto) Absolute Nucleated RBC Nucleated RBC % (auto) Neutrophils % (Manual) Band Neutrophils % Lymphocytes % (Manual) Atypical Lymphs % (Man) Monocytes % (Manual) Metamyelocytes % Myelocytes % Abs Neuts (Manual) Lymphocytes # (Manual) Monocytes # (Manual) Metamyelocytes # Myelocytes # Nucleated RBCs Toxic Granulation Toxic Vacuolation Dohle Bodies Platelet Estimate Large Platelets Plt Morphology Comment RBC Morphology Hypochromasia Microcytosis Target Cells Tear Drop Cells Ovalocytes [place] Cells Acanthocytes (Spur) Schistocytes Smear Tech's Comments Smear Path Review ESR Absolute Retic Percent Retic Immature Retic Fraction Retic Hgb Equivalent Hold Purple Top PT INR APTT Fibrinogen D-Dimer High Sensitivty O2 Saturation 96.0 ABG pH at Pt Temp 7.46 H ABG pCO2 at Pt Temp 40 ABG pO2 at Pt Temp 86 ABG HCO3 29 H ABG Base Excess (Actual) 5.2 VBG pH VBG pCO2 VBG pO2 VBG HCO3 VBG O2 Saturation VBG Base Excess Sodium 145 Potassium 5.6 H Chloride 112 H Carbon Dioxide 23 Anion Gap 16 BUN 108 H Creatinine 1.94 H Estim Creat Clear Calc 26.9 Estimated GFR 25 POC Glucose 172 H Random Glucose 190 H Fasting Glucose Lactic Acid Lactic Acid F/U @ 2Hr Calcium 7.9 L Phosphorus Magnesium Total Bilirubin 0.5 Direct Bilirubin AST 76 H ALT 48 H Alkaline Phosphatase 86 Lactate Dehydrogenase Troponin I High Sens 350.2 H* D C-Reactive Protein NT-Pro-B Natriuret Pep 2959.4 H Total Protein 4.9 L Albumin 2.3 L Lipase Procalcitonin Urine Color Urine Appearance Urine pH Ur Specific [place] Urine Protein Urine Glucose (UA) Urine Ketones Urine Blood Urine Nitrite Ur Leukocyte Esterase Nasal Screen MRSA (PCR) Nasal S. aureus Screen Nasal MRSA/S.aureus Interp Stool Occult Blood Vancomycin Trough Random Vancomycin Ur L.pneumophila Ag Ur Strep pneumoniae Ag Blood Type Antibody Screen JENNIFER, Polyspecific Positive JENNIFER Work-up Crossmatch 08/05/25 08/05/25 08/05/25 20:06 20:57 23:19 WBC 2.6 L RBC 2.84 L Hgb 7.4 L Hct 22.7 L MCV 79.9 L MCH 26.1 L MCHC 32.6 RDW 23.3 H Plt Count 20 L* MPV Not Reportable Immature Gran % (Auto) Cancelled Neut % (Auto) Cancelled Lymph % (Auto) Cancelled [place] % (Auto) Cancelled Eos % (Auto) Cancelled Baso % (Auto) Cancelled Lymph # (Auto) Cancelled [place] # (Auto) Cancelled Eos # (Auto) Cancelled Baso # (Auto) Cancelled Abs Immat Gran (auto) Cancelled Absolute Neuts (auto) Cancelled Absolute Nucleated RBC 0.000 Nucleated RBC % (auto) 0.0 Neutrophils % (Manual) 57 Band Neutrophils % 37 H Lymphocytes % (Manual) Atypical Lymphs % (Man) Monocytes % (Manual) 6 Metamyelocytes % Myelocytes % Abs Neuts (Manual) 2.4 Lymphocytes # (Manual) Monocytes # (Manual) 0.2 Metamyelocytes # Myelocytes # Nucleated RBCs Toxic Granulation PRESENT Toxic Vacuolation Dohle Bodies Platelet Estimate DECREASED Large Platelets PRESENT Plt Morphology Comment NOTE RBC Morphology NOTED Hypochromasia 1+ (5-14) Microcytosis 1+ (5-14) Target Cells 1+ (5-14) Tear Drop Cells 1+ (0-2) Ovalocytes 1+ (5-14) Ruby Cells 3+ (>5) Acanthocytes (Spur) 3+ (>5) Schistocytes 1+ (0-2) Smear Tech's Comments Smear Path Review ESR Absolute Retic Percent Retic Immature Retic Fraction Retic Hgb Equivalent Hold Purple Top PT INR APTT Fibrinogen D-Dimer High Sensitivty O2 Saturation ABG pH at Pt Temp ABG pCO2 at Pt Temp ABG pO2 at Pt Temp ABG HCO3 ABG Base Excess (Actual) VBG pH VBG pCO2 VBG pO2 VBG HCO3 VBG O2 Saturation VBG Base Excess Sodium 147 H Potassium 5.4 H Chloride 111 H Carbon Dioxide 24 Anion Gap 17 BUN 111 H Creatinine 1.97 H Estim Creat Clear Calc 26.4 Estimated GFR 25 POC Glucose 167 H Random Glucose 199 H Fasting Glucose Lactic Acid 2.0 Lactic Acid F/U @ 2Hr Calcium 7.9 L Phosphorus Magnesium Total Bilirubin Direct Bilirubin AST ALT Alkaline Phosphatase Lactate Dehydrogenase Troponin I High Sens 502.4 H* C-Reactive Protein NT-Pro-B Natriuret Pep Total Protein Albumin Lipase Procalcitonin Urine Color Urine Appearance Urine pH Ur Specific [place] Urine Protein Urine Glucose (UA) Urine Ketones Urine Blood Urine Nitrite Ur Leukocyte Esterase Nasal Screen MRSA (PCR) Nasal S. aureus Screen Nasal MRSA/S.aureus Interp Stool Occult Blood Vancomycin Trough Random Vancomycin Ur L.pneumophila Ag Ur Strep pneumoniae Ag Blood Type Antibody Screen JENNIFER, Polyspecific Positive JENNIFER Work-up Crossmatch 08/05/25 08/06/25 08/06/25 23:49 05:27 05:29 WBC 2.2 L RBC 2.43 L Hgb 6.3 L* Hct 19.3 L* MCV 79.4 L MCH 25.9 L MCHC 32.6 RDW 23.1 H Plt Count 17 L* MPV Not Reportable Immature Gran % (Auto) 0.9 H Neut % (Auto) 89.4 H Lymph % (Auto) 4.6 L [place] % (Auto) 3.7 Eos % (Auto) 0.0 Baso % (Auto) 1.4 Lymph # (Auto) 0.1 L [place] # (Auto) 0.1 Eos # (Auto) 0.0 Baso # (Auto) 0.0 Abs Immat Gran (auto) 0.02 Absolute Neuts (auto) 2.0 Absolute Nucleated RBC 0.000 Nucleated RBC % (auto) 0.0 Neutrophils % (Manual) 65 Band Neutrophils % 26 H Lymphocytes % (Manual) 2 L Atypical Lymphs % (Man) Monocytes % (Manual) 2 Metamyelocytes % 5 Myelocytes % Abs Neuts (Manual) 2.0 Lymphocytes # (Manual) Monocytes # (Manual) Metamyelocytes # 0.1 Myelocytes # Nucleated RBCs Toxic Granulation PRESENT Toxic Vacuolation PRESENT Dohle Bodies Platelet Estimate DECREASED Large Platelets PRESENT Plt Morphology Comment NOTED RBC Morphology NOTED Hypochromasia Microcytosis 1+ (5-14) Target Cells 1+ (5-14) Tear Drop Cells Ovalocytes 1+ (5-14) Ruby Cells 3+ (>5) Acanthocytes (Spur) 1+ (0-2) Schistocytes 1+ (0-2) Smear Tech's Comments Smear Path Review SEE NOTE ESR Absolute Retic Percent Retic Immature Retic Fraction Retic Hgb Equivalent Hold Purple Top PT 26.7 H D INR 2.2 H APTT 32.7 Fibrinogen 625 D-Dimer High Sensitivty 510 O2 Saturation ABG pH at Pt Temp ABG pCO2 at Pt Temp ABG pO2 at Pt Temp ABG HCO3 ABG Base Excess (Actual) VBG pH 7.54 H VBG pCO2 32 VBG pO2 61 VBG HCO3 28 H VBG O2 Saturation 90.0 VBG Base Excess 5.8 Sodium 146 H Potassium 5.5 H Chloride 112 H Carbon Dioxide 23 Anion Gap 17 BUN 117 H Creatinine 2.22 H Estim Creat Clear Calc 23.5 Estimated GFR 21 POC Glucose 184 H Random Glucose 190 H Fasting Glucose Lactic Acid Lactic Acid F/U @ 2Hr Calcium 7.8 L Phosphorus 4.1 Magnesium 2.4 Total Bilirubin 0.8 Direct Bilirubin AST 71 H ALT 36 H Alkaline Phosphatase 69 Lactate Dehydrogenase Troponin I High Sens 884.3 H* D C-Reactive Protein NT-Pro-B Natriuret Pep 2789.7 H Total Protein 4.9 L Albumin 2.8 L Lipase Procalcitonin Urine Color Urine Appearance Urine pH Ur Specific [place] Urine Protein Urine Glucose (UA) Urine Ketones Urine Blood Urine Nitrite Ur Leukocyte Esterase Nasal Screen MRSA (PCR) Nasal S. aureus Screen Nasal MRSA/S.aureus Interp Stool Occult Blood Vancomycin Trough Random Vancomycin Ur L.pneumophila Ag Ur Strep pneumoniae Ag Blood Type Antibody Screen JENNIFER, Polyspecific Positive JENNIFER Work-up Crossmatch 08/06/25 08/06/25 08/06/25 07:32 11:09 11:10 WBC RBC Hgb Hct MCV MCH MCHC RDW Plt Count MPV Immature Gran % (Auto) Neut % (Auto) Lymph % (Auto) [place] % (Auto) Eos % (Auto) Baso % (Auto) Lymph # (Auto) [place] # (Auto) Eos # (Auto) Baso # (Auto) Abs Immat Gran (auto) Absolute Neuts (auto) Absolute Nucleated RBC Nucleated RBC % (auto) Neutrophils % (Manual) Band Neutrophils % Lymphocytes % (Manual) Atypical Lymphs % (Man) Monocytes % (Manual) Metamyelocytes % Myelocytes % Abs Neuts (Manual) Lymphocytes # (Manual) Monocytes # (Manual) Metamyelocytes # Myelocytes # Nucleated RBCs Toxic Granulation Toxic Vacuolation Dohle Bodies Platelet Estimate Large Platelets Plt Morphology Comment RBC Morphology Hypochromasia Microcytosis Target Cells Tear Drop Cells Ovalocytes Ruby Cells Acanthocytes (Spur) Schistocytes Smear Tech's Comments Smear Path Review ESR 46 H Absolute Retic 0.013 L Percent Retic 0.5 Immature Retic Fraction 9.7 Retic Hgb Equivalent 35.6 H Hold Purple Top PT INR APTT Fibrinogen D-Dimer High Sensitivty O2 Saturation ABG pH at Pt Temp ABG pCO2 at Pt Temp ABG pO2 at Pt Temp ABG HCO3 ABG Base Excess (Actual) VBG pH VBG pCO2 VBG pO2 VBG HCO3 VBG O2 Saturation VBG Base Excess Sodium Potassium Chloride Carbon Dioxide Anion Gap BUN Creatinine Estim Creat Clear Calc Estimated GFR POC Glucose 182 H Random Glucose Fasting Glucose Lactic Acid Lactic Acid F/U @ 2Hr Calcium Phosphorus Magnesium Total Bilirubin Direct Bilirubin AST ALT Alkaline Phosphatase Lactate Dehydrogenase 730 H Troponin I High Sens C-Reactive Protein 28.41 H NT-Pro-B Natriuret Pep Total Protein Albumin Lipase Procalcitonin Urine Color Urine Appearance Urine pH Ur Specific [place] Urine Protein Urine Glucose (UA) Urine Ketones Urine Blood Urine Nitrite Ur Leukocyte Esterase Nasal Screen MRSA (PCR) Nasal S. aureus Screen Nasal MRSA/S.aureus Interp Stool Occult Blood Vancomycin Trough Random Vancomycin Ur L.pneumophila Ag Ur Strep pneumoniae Ag Blood Type Antibody Screen JENNIFER, Polyspecific NEGATIVE Positive JENNIFER Work-up TNP Crossmatch 08/06/25 08/06/25 08/06/25 11:20 16:48 17:30 WBC RBC Hgb Hct MCV MCH MCHC RDW Plt Count MPV Immature Gran % (Auto) Neut % (Auto) Lymph % (Auto) [place] % (Auto) Eos % (Auto) Baso % (Auto) Lymph # (Auto) [place] # (Auto) Eos # (Auto) Baso # (Auto) Abs Immat Gran (auto) Absolute Neuts (auto) Absolute Nucleated RBC Nucleated RBC % (auto) Neutrophils % (Manual) Band Neutrophils % Lymphocytes % (Manual) Atypical Lymphs % (Man) Monocytes % (Manual) Metamyelocytes % Myelocytes % Abs Neuts (Manual) Lymphocytes # (Manual) Monocytes # (Manual) Metamyelocytes # Myelocytes # Nucleated RBCs Toxic Granulation Toxic Vacuolation Dohle Bodies Platelet Estimate Large Platelets Plt Morphology Comment RBC Morphology Hypochromasia Microcytosis Target Cells Tear Drop Cells Ovalocytes [place] Cells Acanthocytes (Spur) Schistocytes Smear Tech's Comments Smear Path Review ESR Absolute Retic Percent Retic Immature Retic Fraction Retic Hgb Equivalent Hold Purple Top PT INR APTT Fibrinogen D-Dimer High Sensitivty O2 Saturation ABG pH at Pt Temp ABG pCO2 at Pt Temp ABG pO2 at Pt Temp ABG HCO3 ABG Base Excess (Actual) VBG pH VBG pCO2 VBG pO2 VBG HCO3 VBG O2 Saturation VBG Base Excess Sodium Potassium Chloride Carbon Dioxide Anion Gap BUN Creatinine Estim Creat Clear Calc Estimated GFR POC Glucose 221 H 219 H Random Glucose Fasting Glucose Lactic Acid Lactic Acid F/U @ 2Hr Calcium Phosphorus Magnesium Total Bilirubin Direct Bilirubin AST ALT Alkaline Phosphatase Lactate Dehydrogenase Troponin I High Sens C-Reactive Protein NT-Pro-B Natriuret Pep Total Protein Albumin Lipase Procalcitonin Urine Color Urine Appearance Urine pH Ur Specific [place] Urine Protein Urine Glucose (UA) Urine Ketones Urine Blood Urine Nitrite Ur Leukocyte Esterase Nasal Screen MRSA (PCR) Nasal S. aureus Screen Nasal MRSA/S.aureus Interp Stool Occult Blood POSITIVE Vancomycin Trough Random Vancomycin Ur L.pneumophila Ag Ur Strep pneumoniae Ag Blood Type Antibody Screen JENNIFER, Polyspecific Positive JENNIFER Work-up Crossmatch 08/06/25 08/06/25 08/06/25 18:03 21:35 23:55 WBC 2.8 L RBC 2.14 L Hgb 5.8 L* Hct 17.8 L* MCV 83.2 MCH 27.1 MCHC 32.6 RDW 21.8 H Plt Count 16 L* MPV Not Reportable Immature Gran % (Auto) Neut % (Auto) Lymph % (Auto) [place] % (Auto) Eos % (Auto) Baso % (Auto) Lymph # (Auto) [place] # (Auto) Eos # (Auto) Baso # (Auto) Abs Immat Gran (auto) Absolute Neuts (auto) Absolute Nucleated RBC 0.000 Nucleated RBC % (auto) 0.0 Neutrophils % (Manual) Band Neutrophils % Lymphocytes % (Manual) Atypical Lymphs % (Man) Monocytes % (Manual) Metamyelocytes % Myelocytes % Abs Neuts (Manual) Lymphocytes # (Manual) Monocytes # (Manual) Metamyelocytes # Myelocytes # Nucleated RBCs Toxic Granulation Toxic Vacuolation Dohle Bodies Platelet Estimate Large Platelets Plt Morphology Comment RBC Morphology Hypochromasia Microcytosis Target Cells Tear Drop Cells Ovalocytes [place] Cells Acanthocytes (Spur) Schistocytes Smear Tech's Comments Smear Path Review ESR Absolute Retic Percent Retic Immature Retic Fraction Retic Hgb Equivalent Hold Purple Top PT INR APTT Fibrinogen D-Dimer High Sensitivty O2 Saturation ABG pH at Pt Temp ABG pCO2 at Pt Temp ABG pO2 at Pt Temp ABG HCO3 ABG Base Excess (Actual) VBG pH VBG pCO2 VBG pO2 VBG HCO3 VBG O2 Saturation VBG Base Excess Sodium 147 H Potassium 5.6 H Chloride 113 H Carbon Dioxide 23 Anion Gap 17 BUN 126 H Creatinine 2.82 H Estim Creat Clear Calc 18.5 Estimated GFR 16 POC Glucose 264 H 310 H Random Glucose 231 H Fasting Glucose Lactic Acid Lactic Acid F/U @ 2Hr Calcium 7.7 L Phosphorus Magnesium Total Bilirubin 0.9 Direct Bilirubin AST 70 H ALT 27 Alkaline Phosphatase 59 Lactate Dehydrogenase Troponin I High Sens 2305.7 H* D C-Reactive Protein NT-Pro-B Natriuret Pep Total Protein 5.1 L Albumin 3.4 L Lipase Procalcitonin Urine Color Urine Appearance Urine pH Ur Specific [place] Urine Protein Urine Glucose (UA) Urine Ketones Urine Blood Urine Nitrite Ur Leukocyte Esterase Nasal Screen MRSA (PCR) Nasal S. aureus Screen Nasal MRSA/S.aureus Interp Stool Occult Blood Vancomycin Trough Random Vancomycin Ur L.pneumophila Ag Ur Strep pneumoniae Ag Blood Type Antibody Screen JENNIFER, Polyspecific Positive JENNIFER Work-up Crossmatch 08/07/25 08/07/25 08/07/25 00:06 04:37 04:40 WBC 3.5 L 2.7 L RBC 3.39 L D 2.91 L Hgb 9.5 L D 8.3 L Hct 28.2 L D 24.0 L MCV 83.2 82.5 MCH 28.0 28.5 MCHC 33.7 34.6 RDW 18.9 H 18.3 H Plt Count 34 L D 27 L MPV Not Reportable Not Reportable Immature Gran % (Auto) Cancelled Cancelled Neut % (Auto) Cancelled Cancelled Lymph % (Auto) Cancelled Cancelled [place] % (Auto) Cancelled Cancelled Eos % (Auto) Cancelled Cancelled Baso % (Auto) Cancelled Cancelled Lymph # (Auto) Cancelled Cancelled [place] # (Auto) Cancelled Cancelled Eos # (Auto) Cancelled Cancelled Baso # (Auto) Cancelled Cancelled Abs Immat Gran (auto) Cancelled Cancelled Absolute Neuts (auto) Cancelled Cancelled Absolute Nucleated RBC 0.000 0.030 H Nucleated RBC % (auto) 0.0 1.1 H Neutrophils % (Manual) 64 74 H Band Neutrophils % 24 H 16 H Lymphocytes % (Manual) 2 L 4 L Atypical Lymphs % (Man) 1 Monocytes % (Manual) 2 3 Metamyelocytes % 2 2 Myelocytes % 6 Abs Neuts (Manual) 3.1 2.4 Lymphocytes # (Manual) 0.1 L 0.1 L Monocytes # (Manual) 0.1 0.1 Metamyelocytes # 0.1 0.1 Myelocytes # 0.2 Nucleated RBCs 1 H Toxic Granulation PRESENT Toxic Vacuolation Dohle Bodies PRES Platelet Estimate DECREASED DECREASED Large Platelets Plt Morphology Comment NORMAL NOTED RBC Morphology NOTED NOTED Hypochromasia Microcytosis Target Cells Tear Drop Cells Ovalocytes Ruby Cells 2+ (3-5) 3+ (>5) Acanthocytes (Spur) 1+ (0-2) Schistocytes 1+ (0-2) Smear Tech's Comments Smear Path Review ESR Absolute Retic Percent Retic Immature Retic Fraction Retic Hgb Equivalent Hold Purple Top PT 20.5 H D INR 1.7 H APTT Fibrinogen D-Dimer High Sensitivty O2 Saturation ABG pH at Pt Temp ABG pCO2 at Pt Temp ABG pO2 at Pt Temp ABG HCO3 ABG Base Excess (Actual) VBG pH 7.69 H* VBG pCO2 22 VBG pO2 191 VBG HCO3 26 VBG O2 Saturation 99.0 VBG Base Excess 7.0 Sodium 148 H 150 H Potassium 5.8 H 5.4 H Chloride 113 H 111 H Carbon Dioxide 21 L 24 Anion Gap 20 20 BUN 125 H 128 H Creatinine 3.13 H 3.33 H Estim Creat Clear Calc 16.7 15.9 Estimated GFR 14 13 POC Glucose Random Glucose 299 H 343 H Fasting Glucose Lactic Acid Lactic Acid F/U @ 2Hr Calcium 8.3 L D 8.2 L Phosphorus 6.0 H 5.8 H Magnesium 2.4 2.4 Total Bilirubin 1.2 H Direct Bilirubin AST 78 H ALT 29 Alkaline Phosphatase 73 Lactate Dehydrogenase Troponin I High Sens 7818.6 H* D C-Reactive Protein NT-Pro-B Natriuret Pep 7387.7 H Total Protein 5.1 L Albumin 3.5 Lipase Procalcitonin Urine Color Urine Appearance Urine pH Ur Specific [place] Urine Protein Urine Glucose (UA) Urine Ketones Urine Blood Urine Nitrite Ur Leukocyte Esterase Nasal Screen MRSA (PCR) Nasal S. aureus Screen Nasal MRSA/S.aureus Interp Stool Occult Blood Vancomycin Trough Random Vancomycin Ur L.pneumophila Ag Ur Strep pneumoniae Ag Blood Type Antibody Screen JENNIFER, Polyspecific Positive JENNIFER Work-up Crossmatch 08/07/25 08/07/25 08/07/25 05:17 05:27 09:14 WBC RBC Hgb Hct MCV MCH MCHC RDW Plt Count MPV Immature Gran % (Auto) Neut % (Auto) Lymph % (Auto) [place] % (Auto) Eos % (Auto) Baso % (Auto) Lymph # (Auto) [place] # (Auto) Eos # (Auto) Baso # (Auto) Abs Immat Gran (auto) Absolute Neuts (auto) Absolute Nucleated RBC Nucleated RBC % (auto) Neutrophils % (Manual) Band Neutrophils % Lymphocytes % (Manual) Atypical Lymphs % (Man) Monocytes % (Manual) Metamyelocytes % Myelocytes % Abs Neuts (Manual) Lymphocytes # (Manual) Monocytes # (Manual) Metamyelocytes # Myelocytes # Nucleated RBCs Toxic Granulation Toxic Vacuolation Dohle Bodies Platelet Estimate Large Platelets Plt Morphology Comment RBC Morphology Hypochromasia Microcytosis Target Cells Tear Drop Cells Ovalocytes [place] Cells Acanthocytes (Spur) Schistocytes Smear Tech's Comments Smear Path Review ESR Absolute Retic Percent Retic Immature Retic Fraction Retic Hgb Equivalent Hold Purple Top PT INR APTT Fibrinogen D-Dimer High Sensitivty O2 Saturation 72.0 ABG pH at Pt Temp 7.41 ABG pCO2 at Pt Temp 44 ABG pO2 at Pt Temp 46 L* ABG HCO3 28 H ABG Base Excess (Actual) 3.9 VBG pH 7.49 H VBG pCO2 37 VBG pO2 106 VBG HCO3 28 H VBG O2 Saturation 100.0 VBG Base Excess 5.4 Sodium Potassium Chloride Carbon Dioxide Anion Gap BUN Creatinine Estim Creat Clear Calc Estimated GFR POC Glucose 349 H Random Glucose Fasting Glucose Lactic Acid Lactic Acid F/U @ 2Hr Calcium Phosphorus Magnesium Total Bilirubin Direct Bilirubin AST ALT Alkaline Phosphatase Lactate Dehydrogenase Troponin I High Sens C-Reactive Protein NT-Pro-B Natriuret Pep Total Protein Albumin Lipase Procalcitonin Urine Color Urine Appearance Urine pH Ur Specific [place] Urine Protein Urine Glucose (UA) Urine Ketones Urine Blood Urine Nitrite Ur Leukocyte Esterase Nasal Screen MRSA (PCR) Nasal S. aureus Screen Nasal MRSA/S.aureus Interp Stool Occult Blood Vancomycin Trough Random Vancomycin Ur L.pneumophila Ag Ur Strep pneumoniae Ag Blood Type Antibody Screen JENNIFER, Polyspecific Positive JENNIFER Work-up Crossmatch Assessment and Plan Final Anesthetic Review History of Problems with Anesthesia: No
[2025-08-07] MEDS: fentaNYL citrate/NS 1,000 MCG/100 ML PLAST..BAG 5 MCG IVCONT (10:34)
[2025-08-07] MEDS: Cisatracurium Besylate 100 MG in 0.9 % Sodium Chloride 40 ML 5.64 MG IVCONT ×2 (10:35→15:42)
--- NOTE | 2025-08-07 11:02 | MHC.CM.PN ---
Pt with worsening status overnight: Vented and with LGIB requiring transfusion and rectal tube placement: renal function also worsening in addition to FiO2 requirements at 100%. No change to code status at this time. CM to follow for finalization of d/c planning needs.
--- NOTE | 2025-08-07 11:30 | MHC.CLN ---
F/U PT IS NOW INTUBATED AND SEDATED PT WITH INCREASED NUTRITION RISK R/T PRESSURE INJURY REMAINS NPO WITH OGT CLAMPED R/T GIB FOLLOWING WITH TEAM CONSULT RD IF ALTERNATIVE NUTRITION NEEDED
--- NOTE | 2025-08-07 11:31 | PM.PNCARD ---
Subjective Subjective Date of Service: 08/07/25 Principal diagnosis: Pneumonia, acute hypoxic respiratory failure, diastolic dysfunction. Interval history: Requested by rehabilitation services director to review the troponin changes. Patient herself is intubated and not able to give any history. Per notes, many ongoing issues including acute encephalopathy, shock, respiratory failure, GI bleed, thrombocytopenia. From the cardiac standpoint, it seems troponins were checked and they were elevated and hence we are asked to see here. Review of Systems Review of Systems Unable to obtain Physical Exam Vital Signs: Last Vital Signs Temp 99.3 F 08/07/25 11:00 Pulse 115 H 08/07/25 11:28 Resp 14 08/07/25 11:20 BP 130/52 L 08/07/25 11:28 Pulse Ox 89 L 08/07/25 11:00 O2 Del Method Mechanical Ventilation 08/07/25 11:00 O2 Flow Rate 100 08/07/25 10:00 FiO2 100 08/07/25 11:20 Oxygen Flow Rate 15 08/05/25 20:54 BMI result Body Mass Index 35.6 Const Other: Intubated HEENT Other: Unremarkable Head: Yes normal to inspection Neck Neck: Yes normal visual inspection Chest Chest palpation & inspection: normal inspection of the chest Resp Other: Limited auscultation due to position Cardio Palpation: normal PMI Heart sounds: S1 normal heart sound present, S2 normal heart sound present, no gallops, Murmur heart sound present systolic II/ and no rubs GI Palpation (GI): Soft to palpation Back/Spine/Pelvis Other: unremarkable Skin General skin exam: no rashes or lesions noted Neuro Other: Unable to evaluate, intubated Extrem General: Yes normal to inspection Psych Other: Intubated Objective Labs and Meds 08/07/25 04:37 08/07/25 04:37 Lab results: Laboratory Results - last 24 hr 08/04/25 08/06/25 08/06/25 14:19 11:09 11:10 WBC RBC Hgb Hct MCV MCH MCHC RDW Plt Count MPV Immature Gran % (Auto) Neut % (Auto) Lymph % (Auto) [place] % (Auto) Eos % (Auto) Baso % (Auto) Lymph # (Auto) [place] # (Auto) Eos # (Auto) Baso # (Auto) Abs Immat Gran (auto) Absolute Neuts (auto) Absolute Nucleated RBC Nucleated RBC % (auto) Neutrophils % (Manual) Band Neutrophils % Lymphocytes % (Manual) Atypical Lymphs % (Man) Monocytes % (Manual) Metamyelocytes % Myelocytes % Abs Neuts (Manual) Lymphocytes # (Manual) Monocytes # (Manual) Metamyelocytes # Myelocytes # Nucleated RBCs Toxic Granulation Dohle Bodies Platelet Estimate Plt Morphology Comment RBC Morphology Ruby Cells Acanthocytes (Spur) Schistocytes ESR 46 H Absolute Retic 0.013 L Percent Retic 0.5 Immature Retic Fraction 9.7 Retic Hgb Equivalent 35.6 H PT INR O2 Saturation ABG pH at Pt Temp ABG pCO2 at Pt Temp ABG pO2 at Pt Temp ABG HCO3 ABG Base Excess (Actual) VBG pH VBG pCO2 VBG pO2 VBG HCO3 VBG O2 Saturation VBG Base Excess Sodium Potassium Chloride Carbon Dioxide Anion Gap BUN Creatinine Estim Creat Clear Calc Estimated GFR POC Glucose Random Glucose Calcium Phosphorus Magnesium Total Bilirubin AST ALT Alkaline Phosphatase Lactate Dehydrogenase 730 H Troponin I High Sens C-Reactive Protein 28.41 H NT-Pro-B Natriuret Pep Total Protein Albumin Stool Occult Blood Blood Type A Positive Antibody Screen NEGATIVE JENNIFER, Polyspecific NEGATIVE Positive JENNIFER Work-up TNP Crossmatch See Detail 08/06/25 08/06/25 08/06/25 16:48 17:30 18:03 WBC 2.8 L RBC 2.14 L Hgb 5.8 L* Hct 17.8 L* MCV 83.2 MCH 27.1 MCHC 32.6 RDW 21.8 H Plt Count 16 L* MPV Not Reportable Immature Gran % (Auto) Neut % (Auto) Lymph % (Auto) [place] % (Auto) Eos % (Auto) Baso % (Auto) Lymph # (Auto) [place] # (Auto) Eos # (Auto) Baso # (Auto) Abs Immat Gran (auto) Absolute Neuts (auto) Absolute Nucleated RBC 0.000 Nucleated RBC % (auto) 0.0 Neutrophils % (Manual) Band Neutrophils % Lymphocytes % (Manual) Atypical Lymphs % (Man) Monocytes % (Manual) Metamyelocytes % Myelocytes % Abs Neuts (Manual) Lymphocytes # (Manual) Monocytes # (Manual) Metamyelocytes # Myelocytes # Nucleated RBCs Toxic Granulation Dohle Bodies Platelet Estimate Plt Morphology Comment RBC Morphology [place] Cells Acanthocytes (Spur) Schistocytes ESR Absolute Retic Percent Retic Immature Retic Fraction Retic Hgb Equivalent PT INR O2 Saturation ABG pH at Pt Temp ABG pCO2 at Pt Temp ABG pO2 at Pt Temp ABG HCO3 ABG Base Excess (Actual) VBG pH VBG pCO2 VBG pO2 VBG HCO3 VBG O2 Saturation VBG Base Excess Sodium 147 H Potassium 5.6 H Chloride 113 H Carbon Dioxide 23 Anion Gap 17 BUN 126 H Creatinine 2.82 H Estim Creat Clear Calc 18.5 Estimated GFR 16 POC Glucose 219 H Random Glucose 231 H Calcium 7.7 L Phosphorus Magnesium Total Bilirubin 0.9 AST 70 H ALT 27 Alkaline Phosphatase 59 Lactate Dehydrogenase Troponin I High Sens 2305.7 H* D C-Reactive Protein NT-Pro-B Natriuret Pep Total Protein 5.1 L Albumin 3.4 L Stool Occult Blood POSITIVE Blood Type Antibody Screen JENNIFER, Polyspecific Positive JENNIFER Work-up Crossmatch 08/06/25 08/06/25 08/07/25 21:35 23:55 00:06 WBC 3.5 L RBC 3.39 L D Hgb 9.5 L D Hct 28.2 L D MCV 83.2 MCH 28.0 MCHC 33.7 RDW 18.9 H Plt Count 34 L D MPV Not Reportable Immature Gran % (Auto) Cancelled Neut % (Auto) Cancelled Lymph % (Auto) Cancelled [place] % (Auto) Cancelled Eos % (Auto) Cancelled Baso % (Auto) Cancelled Lymph # (Auto) Cancelled [place] # (Auto) Cancelled Eos # (Auto) Cancelled Baso # (Auto) Cancelled Abs Immat Gran (auto) Cancelled Absolute Neuts (auto) Cancelled Absolute Nucleated RBC 0.000 Nucleated RBC % (auto) 0.0 Neutrophils % (Manual) 64 Band Neutrophils % 24 H Lymphocytes % (Manual) 2 L Atypical Lymphs % (Man) Monocytes % (Manual) 2 Metamyelocytes % 2 Myelocytes % 6 Abs Neuts (Manual) 3.1 Lymphocytes # (Manual) 0.1 L Monocytes # (Manual) 0.1 Metamyelocytes # 0.1 Myelocytes # 0.2 Nucleated RBCs Toxic Granulation PRESENT Dohle Bodies PRES Platelet Estimate DECREASED Plt Morphology Comment NORMAL RBC Morphology NOTED Ruby Cells 2+ (3-5) Acanthocytes (Spur) Schistocytes 1+ (0-2) ESR Absolute Retic Percent Retic Immature Retic Fraction Retic Hgb Equivalent PT INR O2 Saturation ABG pH at Pt Temp ABG pCO2 at Pt Temp ABG pO2 at Pt Temp ABG HCO3 ABG Base Excess (Actual) VBG pH VBG pCO2 VBG pO2 VBG HCO3 VBG O2 Saturation VBG Base Excess Sodium 148 H Potassium 5.8 H Chloride 113 H Carbon Dioxide 21 L Anion Gap 20 BUN 125 H Creatinine 3.13 H Estim Creat Clear Calc 16.7 Estimated GFR 14 POC Glucose 264 H 310 H Random Glucose 299 H Calcium 8.3 L D Phosphorus 6.0 H Magnesium 2.4 Total Bilirubin AST ALT Alkaline Phosphatase Lactate Dehydrogenase Troponin I High Sens C-Reactive Protein NT-Pro-B Natriuret Pep Total Protein Albumin Stool Occult Blood Blood Type Antibody Screen JENNIFER, Polyspecific Positive JENNIFER Work-up Crossmatch 08/07/25 08/07/25 08/07/25 04:37 04:40 05:17 WBC 2.7 L RBC 2.91 L Hgb 8.3 L Hct 24.0 L MCV 82.5 MCH 28.5 MCHC 34.6 RDW 18.3 H Plt Count 27 L MPV Not Reportable Immature Gran % (Auto) Cancelled Neut % (Auto) Cancelled Lymph % (Auto) Cancelled [place] % (Auto) Cancelled Eos % (Auto) Cancelled Baso % (Auto) Cancelled Lymph # (Auto) Cancelled [place] # (Auto) Cancelled Eos # (Auto) Cancelled Baso # (Auto) Cancelled Abs Immat Gran (auto) Cancelled Absolute Neuts (auto) Cancelled Absolute Nucleated RBC 0.030 H Nucleated RBC % (auto) 1.1 H Neutrophils % (Manual) 74 H Band Neutrophils % 16 H Lymphocytes % (Manual) 4 L Atypical Lymphs % (Man) 1 Monocytes % (Manual) 3 Metamyelocytes % 2 Myelocytes % Abs Neuts (Manual) 2.4 Lymphocytes # (Manual) 0.1 L Monocytes # (Manual) 0.1 Metamyelocytes # 0.1 Myelocytes # Nucleated RBCs 1 H Toxic Granulation Dohle Bodies Platelet Estimate DECREASED Plt Morphology Comment NOTED RBC Morphology NOTED Ruby Cells 3+ (>5) Acanthocytes (Spur) 1+ (0-2) Schistocytes ESR Absolute Retic Percent Retic Immature Retic Fraction Retic Hgb Equivalent PT 20.5 H D INR 1.7 H O2 Saturation ABG pH at Pt Temp ABG pCO2 at Pt Temp ABG pO2 at Pt Temp ABG HCO3 ABG Base Excess (Actual) VBG pH 7.69 H* VBG pCO2 22 VBG pO2 191 VBG HCO3 26 VBG O2 Saturation 99.0 VBG Base Excess 7.0 Sodium 150 H Potassium 5.4 H Chloride 111 H Carbon Dioxide 24 Anion Gap 20 BUN 128 H Creatinine 3.33 H Estim Creat Clear Calc 15.9 Estimated GFR 13 POC Glucose 349 H Random Glucose 343 H Calcium 8.2 L Phosphorus 5.8 H Magnesium 2.4 Total Bilirubin 1.2 H AST 78 H ALT 29 Alkaline Phosphatase 73 Lactate Dehydrogenase Troponin I High Sens 7818.6 H* D C-Reactive Protein NT-Pro-B Natriuret Pep 7387.7 H Total Protein 5.1 L Albumin 3.5 Stool Occult Blood Blood Type Antibody Screen JENNIFER, Polyspecific Positive JENNIFER Work-up Crossmatch 08/07/25 08/07/25 05:27 09:14 WBC RBC Hgb Hct MCV MCH MCHC RDW Plt Count MPV Immature Gran % (Auto) Neut % (Auto) Lymph % (Auto) [place] % (Auto) Eos % (Auto) Baso % (Auto) Lymph # (Auto) [place] # (Auto) Eos # (Auto) Baso # (Auto) Abs Immat Gran (auto) Absolute Neuts (auto) Absolute Nucleated RBC Nucleated RBC % (auto) Neutrophils % (Manual) Band Neutrophils % Lymphocytes % (Manual) Atypical Lymphs % (Man) Monocytes % (Manual) Metamyelocytes % Myelocytes % Abs Neuts (Manual) Lymphocytes # (Manual) Monocytes # (Manual) Metamyelocytes # Myelocytes # Nucleated RBCs Toxic Granulation Dohle Bodies Platelet Estimate Plt Morphology Comment RBC Morphology Ruby Cells Acanthocytes (Spur) Schistocytes ESR Absolute Retic Percent Retic Immature Retic Fraction Retic Hgb Equivalent PT INR O2 Saturation 72.0 ABG pH at Pt Temp 7.41 ABG pCO2 at Pt Temp 44 ABG pO2 at Pt Temp 46 L* ABG HCO3 28 H ABG Base Excess (Actual) 3.9 VBG pH 7.49 H VBG pCO2 37 VBG pO2 106 VBG HCO3 28 H VBG O2 Saturation 100.0 VBG Base Excess 5.4 Sodium Potassium Chloride Carbon Dioxide Anion Gap BUN Creatinine Estim Creat Clear Calc Estimated GFR POC Glucose Random Glucose Calcium Phosphorus Magnesium Total Bilirubin AST ALT Alkaline Phosphatase Lactate Dehydrogenase Troponin I High Sens C-Reactive Protein NT-Pro-B Natriuret Pep Total Protein Albumin Stool Occult Blood Blood Type Antibody Screen JENNIFER, Polyspecific Positive JENNIFER Work-up Crossmatch Imaging Radiologist's impression: Impressions Chest X-Ray 08/06/25 15:58 IMPRESSION: 1. Well-positioned ET tube and OG tube. 2. Multifocal pneumonia, unchanged. Small bilateral effusions. Electronically signed by: Bret Perez MD 08/06/2025 04:14 PM [facility] [place] Progress Note: A&P Assessment and plan (1) Non-ST elevation [place] (NSTEMI): Status: Acute Assessment and Plan: Cardiac [id number] stent in the OM with mild InStent restenosis. First diagonal with ostial 60-70% stenosis. No significant disease in the LAD otherwise or RCA. EKG shows sinus tachycardia and nonspecific ST-T changes. Recent echocardiogram with hyperdynamic LVEF; severe septal hypertrophy; moderate aortic stenosis. Troponin levels are currently at 7800. Platelet count 27,000. Overall, demand related troponin leak in the setting of pre-existing CAD. Considering current status being intubated, severe thrombocytopenia, GI bleed, not a candidate for any cardiac intervention at this time. Continue supportive care. Discussed with rehabilitation services director. Time Spent With Patient Time: Total time managing care of this patient today ____ minutes. Progress Note: Quality Stroke Does the patient have a stroke diagnosis?: No Procedures Date of Service Date of Service: 08/07/25
[2025-08-07 11:51] LABS: Glucose, Whole Blood 336 mg/dL (60-115)
[2025-08-07 12:13] LABS: Influenza A H1-2009 PCR Not Detected (Not Detect.); Influenza A H3 PCR Not Detected (Not Detect.); SARS-CoV-2 PCR Not Detected (Not Detect.)
[2025-08-07 12:14] LABS: Influenza A H1 PCR Not Detected (Not Detect.)
[2025-08-07 12:57] LABS: Hematocrit 21.5 % (37.0-47.0); Hemoglobin 7.2 g/dl (12.0-16.0); Mean Corpuscular HGB Conc 33.5 g/dl (31.0-35.0); Mean Corpuscular Hemoglobin 27.8 pg (27.0-33.0); Mean Corpuscular Volume 83.0 fL (80.0-98.0); NRBC Abs Auto 0.000 X10*3/uL (0.0-0.012); NRBC Pct Auto 0.0 /100WBC (0.0-0.2); Red Blood Count 2.59 X10*6/uL (4.20-5.50)
[2025-08-07 12:58] LABS: WBC ABN SCTR FOR CBC 1
[2025-08-07 13:01] LABS: Platelet Count 20 X10*3/uL (160-400)
[2025-08-07 13:04] LABS: Alanine Aminotransferase 27 U/L (0-31); Albumin Level 3.3 g/dL (3.5-5.0); Alkaline Phosphatase 78 U/L (39-117); Anion Gap 20 (12-20); Aspartate Amino Transferase 77 U/L (5-31); Calcium 8.0 mg/dL (8.4-10.2); Carbon Dioxide 24 mmol/L (22-29); Chloride 112 mmol/L (96-108); Creatinine Clr Calc Pharmacy 13.9; Estimated Glomerular Filt Rate 11; Potassium 5.8 mmol/L (3.3-5.1); Sodium 150 mmol/L (135-145); Total Protein 4.8 g/dL (6.5-8.0)
[2025-08-07 13:12] LABS: Blood Urea Nitrogen 135 mg/dL (9-16)
--- NOTE | 2025-08-07 13:13 | MHC.SLORD ---
Speech Language Pathology Order Status: Patient intubated on 08/06/2025. Patient currently NPO. [employer] services not warranted at this time. notified and in agreement with POC. Please re-consult after extubation.
[2025-08-07] MEDS: Furosemide 100 MG/10 ML VIAL 80 MG IVPUSH (13:17)
[2025-08-07 13:20] LABS: White Blood Count 3.0 X10*3/uL (4.8-10.8)
--- NOTE | 2025-08-07 13:33 | MHC.SHP ---
Pre-Procedural Eval Section A - 24 Hr Update-Section A only Date of Service: 08/07/25 The patient is an INPATIENT: Yes Changes since office visit: No Cold of Flu in the past 2 weeks, No New Medical Problems, No Changes in Medication and No Patient answered all questions The patient has been examined within 24 hours of the surgical procedure. The History & Physical has been completed within 30 days and I have reviewed it.: Yes Section B - Complete if H&P > 30 days Chief Complaint: copd execerbation, CHF Allergies: Allergies Allergy/AdvReac Type Severity Reaction Status Date / Time Latex, Natural Rubber Allergy Severe blisters Verified 07/20/25 11:18 Sulfa (Sulfonamide Allergy Mild ITCHING, Verified 07/20/25 11:18 Antibiotics) (SULFA rash (SULFONAMIDE ANTIBIOTICS)) nystatin Allergy Unknown rash Verified 07/20/25 11:18 isosorbide (From Imdur) AdvReac Unknown HEADACHES, Verified 07/20/25 11:18 headache tizanidine AdvReac Unknown weakness, Verified 07/20/25 11:18 Hellucination Plan I have reviewed the history and physical and performed a pertinent physical examination on my patient. No changes have occurred unless specified. Time Spent With Patient Time: Total time managing care of this patient today ____ minutes.
--- NOTE | 2025-08-07 13:33 | PM.EVENT ---
Event Note Date of Service: 08/07/25 Event Note: GI consult dictated EGD today for evaluation of GI Bleeding Procedure discussed with patient's daughter who agrees to proceed. Time Spent With Patient Time: Total time managing care of this patient today ____ minutes.
--- NOTE | 2025-08-07 14:43 | PM.OP ---
Brief Operative Note Date of Service: 08/07/25 Pre-op diagnosis: gi bleed Post-op diagnosis: same Procedure: EGD Surgeon: Marcel Sorenson MD Anesthesia: other Was an Animal Care Specialist used for this Procedure?: No Estimated blood loss (mL): 0 Condition: stable Disposition: ICU
--- NOTE | 2025-08-07 14:44 | PM.EVENT ---
Event Note Date of Service: 08/07/25 Event Note: EGD erosive esophagitis at EG junction. erosive gastritis in antrum no active bleeding no therapy performed Rec: ppi transfuse prn avoid nsaids. Time Spent With Patient Time: Total time managing care of this patient today ____ minutes.
--- NOTE | 2025-08-07 16:00 | CA_ITS ---
Transthoracic Echocardiogram Patient (Last, First, Middle): Saima Restrepo A Gender: F Date of : 1950 Age: 74 Procedure Date: 08/07/2025 Procedure Type: Transthoracic Echocardiogram Location: ICU Height: 162.56 cm Weight: 91.17 kg BSA: 1.96 m2 Heart Rate: 110 bpm BP: 132 / 61 mmHg Underwriting Analyst: Referring MD: Reggie Smallwood MD Symptoms: NSTEMI Study Quality: Adequate w/Contrast, Limited per order ECG Rhythm: Tachycardia Conclusions: - The left ventricular systolic function is normal. The calculated ejection fraction is 56% by biplane method. - There is severely increased left ventricular wall thickness. Findings Procedure Information Contrast agent, definity, is being given per protocol without apparent complications. Left Ventricle Normal left ventricular cavity size. There is severely increased left ventricular wall thickness. The left ventricular systolic function is normal. The calculated ejection fraction is 56% by biplane method. There is no evidence of regional wall motion abnormalities. Venous The inferior vena cava is normal in size and does not collapse with inspiration. (intubated) Prior Study Comparison No significant change compared to prior study dated: 07/30/2025. Measurements 2D Linear Measurements IVSd: 1.77 0.6-0.9/0.6-1.0 cm LVIDd: 3.56 3.9-5.3/4.2-5.9 cm LVIDd Index: 1.82 2.4-3.2/2.2-3.1 cm/m2 LVIDs: 2.30 2.0-3.6 cm LVPWd: 1.77 0.7-1.1 cm LV Mass: 325.30 67-162/88-224 g LV Mass Index: 165.97 43-95/49-115 g/m2 2D Systolic Function EF 4C: 51.00 >55% EF 2C: 63.20 >55% EF BiP: 55.80 >55% Updated in Other Vendor System with Status of Final Ayan Leblanc MD electronically signed on 08/07/2025 3:15:51 PM with status of Final
[2025-08-07 17:12] LABS: Glucose, Whole Blood 349 mg/dL (60-115)
--- NOTE | 2025-08-07 17:35 | PC.NURSE ---
Addendum entered by Hollie Perez RN 08/07/25 18:02: Gtts titrated for MAP goal 50-60 per MD Original Note: Assumed care at 0700- Pt. intubated and sedated per NOV, remains on ACVC+ 14/335/10/100%, 02 sat sustaining 82-89%. Fentanyl and nimbex gtts started this shift. Total of 15cc concentrated urine output via crowder this shift, 80mg Lasix IVP x1 given with no effect-Dialysis line placed to R IJ by pens and pencils repairer, placement confirmed via CXR- see report. Pending HD treatment at this time. Pt. continues to have dark liquid stool via FMS. Multiple blood products transfused this shift- see TAR. Pt. remains on norepinephrine gtt titrated per NOV. Bedside echo performed- see report. Bedside endoscopy performed at approx. 1400 by MD Sorenson- see report. Q2 oral care and repositioning performed. Family updated via telephone by MD. Plan of care ongoing.
[2025-08-07 19:23] LABS: Glucose, Whole Blood 302 mg/dL (60-115)
[2025-08-07 20:40] LABS: VBG HCO3 26 mmol/L (22-26)
[2025-08-07 20:43] LABS: Mean Corpuscular HGB Conc 32.8 g/dl (31.0-35.0); Mean Corpuscular Hemoglobin 28.4 pg (27.0-33.0); Mean Corpuscular Volume 86.5 fL (80.0-98.0); NRBC Abs Auto 0.000 X10*3/uL (0.0-0.012); NRBC Pct Auto 0.0 /100WBC (0.0-0.2); PLT CLUMP 1; Red Blood Count 2.08 X10*6/uL (4.20-5.50)
--- NOTE | 2025-08-07 20:45 | W.MHC.ACPN ---
Advanced Care Planning Note Advanced Care Planning Note Discussed with: family member(s) (2 daughters of which Rachana is the HCP ) Time spent (in minutes): 30 Narrative: Due to the patient's current clinical condition with multiorgan failure and ongoing clinical issues which do not seem to be improving despite of our interventions I invited the family in for a meeting. The patient underwent a dialysis session which she barely tolerated, requiring higher doses of Levophed underwent a treatment during which 200 cc of fluid were removed, otherwise the patient was not able to tolerated as her blood pressure was as low as 60 despite of Levophed near max dose, her heart rate went down into the highs 50s and her oxygen saturation into the 60s with 100% FiO2 ventilatory support and a PEEP of 15. Lengthy discussion took place among all the above-mentioned family members including their nephew who is 1 of which is a physician printing bindery assistant (over the phone) laboratories were reviewed in detail, current clinical scenario and interventions. The concern is that if the patient continues to deteriorate and had a cardiac respiratory arrest, we were not sure how we would proceed even though she is full code, it almost seems that be more aggressive would cause more harm than benefit. All the family members agreed that they do not want the patient to suffer, even though the patient had stated in the past that she wanted everything done, they are aware that the current scenario is different at this point they would like to continue with the current treatment including possibility of recurrent dialysis session, ongoing ventilatory support, transfusion but if she was to have any type of sudden decompensation including worsening hypoxia or cardiac arrest, they would not want her to be resuscitated. They are aware that not perform resuscitation would result in the patient's demise, they understood these and as long as the patient does not suffer they are okay with it. At this point her code status is being changed from full code to do not resuscitate, she will remain intubated. They are awaiting for another child to fly in from out of state and if the patient has not improve, they may consider comfort measures but not at this point. The patient's laboratories shows ongoing bleeding with lower H&H and they agree with transfusion, being aware that administering transfusion is also giving her more volume when we are trying to remove this out of her body. The above-mentioned conversation and final decision was witnessed by the patient's nurse Bonnie, This patient counter and care had a high probability of a clinically significant, sudden, or life threatening deterioration of this patient's condition which required my full and direct attention, intervention and personal management. Critical care time used for critical evaluation of this patient, diagnosis, treatment and coordination of care, review her records and documentation TOTAL CRITICAL CARE TIME 30 MIN . discussion and coordination with consultants, completely separate from any procedures performed. Patient's care was discussed in detail with Dr. Smallwood. He is aware of all the above as well as the plan of care for this patient. Problems Discussed (1) Non-ST elevation CO (NSTEMI):
[2025-08-07 20:50] LABS: WBC ABN SCTR FOR CBC 1
[2025-08-07 20:51] LABS: White Blood Count 3.3 X10*3/uL (4.8-10.8)
[2025-08-07 20:52] LABS: Hemoglobin 5.9 g/dl (12.0-16.0); INTERNATIONAL NORM RATIO 1.7 (0.9-1.1); Prothrombin Time 20.6 SEC (11.2-13.5)
[2025-08-07 20:53] LABS: Hematocrit 18.0 % (37.0-47.0)
[2025-08-07 20:58] LABS: Alanine Aminotransferase 30 U/L (0-31); Albumin Level 3.1 g/dL (3.5-5.0); Alkaline Phosphatase 87 U/L (39-117); Anion Gap 24 (12-20); Aspartate Amino Transferase 89 U/L (5-31); Blood Urea Nitrogen 111 mg/dL (9-16); Calcium 7.5 mg/dL (8.4-10.2); Carbon Dioxide 23 mmol/L (22-29); Chloride 106 mmol/L (96-108); Creatinine Clr Calc Pharmacy 15.4; Estimated Glomerular Filt Rate 13; Magnesium 2.2 mg/dL (1.6-2.6); Potassium 5.6 mmol/L (3.3-5.1); Sodium 147 mmol/L (135-145); Total Protein 4.7 g/dL (6.5-8.0)
--- NOTE | 2025-08-07 21:06 | CONS_ITS ---
DATE OF SERVICE: 08/07/2025 REFERRING PHYSICIAN: Dr. Smallwood REASON FOR CONSULTATION: GI bleeding. HISTORY OF PRESENT ILLNESS: The patient is a 74-year-old woman who was admitted to the hospital on July 20 with shortness of breath and wheezing. Her hospital course has been complicated and she ultimately required intubation and mechanical ventilation due to respiratory failure. During her stay in the ICU, she has been noted to have a significant drop in her hematocrit and required blood transfusion. She has also had some evidence of GI bleeding with large amounts of black tarry stool. She has been seen in consultation by Hematology because of thrombocytopenia, which has been thought secondary to possible antibiotic use. She has previously undergone evaluation for anemia and epigastric pain in November 2023 with upper endoscopy, which showed esophagitis. PAST MEDICAL HISTORY: 1. COPD. 2. Infectious gastroenteritis. 3. Pulmonary emboli with history of Eliquis use. 4. Peripheral arterial disease. 5. Coronary artery disease. 6. Diabetes mellitus. 7. Neuropathy. 8. Tracheomalacia. CURRENT MEDICATIONS: Her current medication list is reviewed in the chart. ALLERGIES: MULTIPLE MEDICATION ALLERGIES ARE REVIEWED. FAMILY HISTORY AND SOCIAL HISTORY: Reviewed in the electronic medical record. REVIEW OF SYSTEMS: This is not possible due to the patient's present condition under intubation and sedation. PHYSICAL EXAMINATION: GENERAL: Shows an elderly female lying on an ICU bed. VITAL SIGNS: Reviewed in electronic medical record and are stable. SKIN: Anicteric. HEENT: Shows no scleral icterus. NECK: Without lymphadenopathy or thyromegaly. LUNGS: Show some coarse breath sounds. HEART: Shows a regular rate and rhythm with mild tachycardia. ABDOMEN: Soft without focal masses or tenderness. Bowel sounds are present. No organomegaly is noted. EXTREMITIES: Without edema. LABORATORY DATA: Including blood work and imaging studies are reviewed. IMPRESSION: Gastrointestinal bleeding. The differential diagnosis for this includes peptic ulcer disease, erosive esophagitis, gastritis, or bleeding from other upper GI sources. I agree with treating her with a proton pump inhibitor and following her clinically. I have discussed endoscopy with her daughter. She would like to proceed. I agree with transfusion of platelets and fresh frozen plasma. Thank you for asking me to see her. I will follow her in the hospital as needed. MD KIMBER Boogie/DOT / [id number]
[2025-08-07] MEDS: Vasopressin 20 UNIT/100 ML INFUS..BTL 6 UNIT IVCONT (21:10)
[2025-08-07] MEDS: Insulin Glargine,Hum.rec.anlog 100 UNIT/ML 10 ML VIAL 28 UNIT SUBCUT (21:15)
--- NOTE | 2025-08-07 21:17 | OP_ITS ---
DATE OF SERVICE: 08/07/2025 SURGEON: Marcel Sorenson MD INDICATIONS: GI bleeding. PREOPERATIVE DIAGNOSIS: POSTOPERATIVE DIAGNOSIS: PROCEDURE PERFORMED: Upper endoscopy. ESTIMATED BLOOD LOSS: COMPLICATIONS: ANESTHESIA: The patient was monitored in the ICU and under the care of Dr. Smallwood. She had previously been intubated and was being treated with propofol and sedation. ASSISTANTS: SPECIMENS: DESCRIPTION OF PROCEDURE: History and physical performed. The risks and benefits of the procedure were explained to the patient's daughter, and informed consent was obtained. The patient was placed in the supine position. The orogastric tube was removed. The Olympus video gastroscope was introduced into the esophagus, stomach, and duodenum. Examination was performed, and the scope was removed. She tolerated the procedure well, was returned to recovery room and remained stable in the ICU. FINDINGS: Esophagus: The esophagus appeared normal. There was ulceration at the EG junction with some attached clot. No active bleeding was identified. No definite mass was seen. The clot was probed with the biopsy forceps, but no biopsies were obtained due to the patient's significant thrombocytopenia. Stomach: Stomach showed clotted blood and no active ulceration. There were erosions present in the antrum consistent with erosive gastritis. Some of these had the appearance of NG suction galarza. Duodenum: The bulb and 2nd portion were normal. There was no ulceration identified. IMPRESSION: 1. Esophagitis, erosive at the esophagogastric junction. 2. Erosive gastritis. RECOMMENDATION: Followup platelet counts and monitor for signs of recurrent bleeding. MD KIMBER Boogie/MODL / [id number] MTDD
[2025-08-07 21:26] LABS: Band Neutrophils Percent 20 % (3-5); Lymphocytes Absolute Manual 0.2 X10*3/uL (1.2-4.9); Lymphocytes Percent Manual 6 % (20-40); Metamyelocytes Absolute 0.2 X10*3/uL; Metamyelocytes Percent 5 %; Monocytes Absolute Manual 0.1 X10*3/uL (0.1-1.2); Monocytes Percent Manual 4 % (2-11); Neutrophils Absolute Manual 2.8 X10*3/uL (2.0-8.3); Neutrophils Percent Manual 65 % (45-73); RBC Morphology NOTED
[2025-08-07 21:27] LABS: Acanthocytes 2+ (3-5) /OIF; Ovalocytes 1+ (5-14) /OIF; Schistocytes 1+ (0-2) /OIF
[2025-08-07 21:28] LABS: Burr Cells 3+ (>5) /OIF; Target Cells 1+ (5-14) /OIF
[2025-08-07 21:29] LABS: Dohle Bodies PRESENT; Microcytosis 1+ (5-14) /OIF; Toxic Granulation PRESENT; Toxic Vacuolation PRESENT
[2025-08-07 21:31] LABS: Hypochromasia 1+ (5-14) /OIF; Polychromasia 1+ (0-2) /OIF
[2025-08-07 21:32] LABS: Large Platelet PRESENT
[2025-08-07 21:44] LABS: Platelet Count 38 X10*3/uL (160-400)
[2025-08-07] MEDS: Norepinephrine Bitartrate/NS 16 MG/250 ML PLAST..BAG 44.06 MG IVCONT (23:18)
[2025-08-08] VITALS (34 sets, daily range): BP systolic 0–143; BP diastolic 0–75; PULSE 0–114; RESP 0–18; TEMP 35–36.6; O2SAT 0–95; BMI 31.6
[2025-08-08 00:20] LABS: Glucose, Whole Blood 299 mg/dL (60-115)
[2025-08-08] MEDS: Cisatracurium Besylate 100 MG in 0.9 % Sodium Chloride 40 ML 5.64 MG IVCONT ×2 (00:30→09:12)
[2025-08-08] MEDS: fentaNYL citrate/NS 1,000 MCG/100 ML PLAST..BAG 5 MCG IVCONT (00:33)
[2025-08-08] MEDS: Furosemide 100 MG/10 ML VIAL 80 MG IVPUSH (01:04)
--- NOTE | 2025-08-08 02:31 | PC.NURSE ---
At approx 1900, patient receiving hemodialysis and not tolerating well. Increasing vasopressor requirements noted - HR trending down to the 60s. Levophed titrated per DEV Topete - see NOV. SpO2 78?80% on 100% FiO2. RT increased PEEP to 12. Lavaged and updraft administered with no improvement. DEV Topete notified and to bedside. Hemodialysis?stopped, 200 ml fluid pulled off. Goals of care discussion held with family, code status changed to DNR. Family updated on patient status and plan of care.
[2025-08-08] MEDS: Norepinephrine Bitartrate/NS 16 MG/250 ML PLAST..BAG 42.3 MG IVCONT (04:06)
[2025-08-08 04:08] LABS: VBG HCO3 23 mmol/L (22-26); VBG O2 % Saturation 84.0 %
[2025-08-08 04:54] LABS: Hematocrit 22.9 % (37.0-47.0); Hemoglobin 7.7 g/dl (12.0-16.0); Mean Corpuscular HGB Conc 33.6 g/dl (31.0-35.0); Mean Corpuscular Hemoglobin 29.7 pg (27.0-33.0); Mean Corpuscular Volume 88.4 fL (80.0-98.0); NRBC Abs Auto 0.020 X10*3/uL (0.0-0.012); NRBC Pct Auto 0.5 /100WBC (0.0-0.2); Red Blood Count 2.59 X10*6/uL (4.20-5.50)
[2025-08-08 05:04] LABS: Alanine Aminotransferase 68 U/L (0-31); Albumin Level 3.0 g/dL (3.5-5.0); Alkaline Phosphatase 98 U/L (39-117); Anion Gap 21 (12-20); Aspartate Amino Transferase 171 U/L (5-31); Blood Urea Nitrogen 116 mg/dL (9-16); Calcium 7.5 mg/dL (8.4-10.2); Carbon Dioxide 23 mmol/L (22-29); Chloride 107 mmol/L (96-108); Creatinine Clr Calc Pharmacy 13.9; Estimated Glomerular Filt Rate 12; Magnesium 2.1 mg/dL (1.6-2.6); Potassium 5.6 mmol/L (3.3-5.1); Sodium 145 mmol/L (135-145); Total Protein 4.9 g/dL (6.5-8.0)
[2025-08-08 05:25] LABS: Platelet Count 72 X10*3/uL (160-400); WBC ABN SCTR FOR CBC 1
[2025-08-08 05:26] LABS: White Blood Count 4.0 X10*3/uL (4.8-10.8)
[2025-08-08 05:31] LABS: Band Neutrophils Percent 27 % (3-5); Eosinophils Percent Manual 1 % (0-4); Lymphocytes Absolute Manual 0.2 X10*3/uL (1.2-4.9); Lymphocytes Percent Manual 6 % (20-40); Metamyelocytes Absolute 0.2 X10*3/uL; Metamyelocytes Percent 5 %; Monocytes Absolute Manual 0.1 X10*3/uL (0.1-1.2); Monocytes Percent Manual 2 % (2-11); Neutrophils Absolute Manual 3.4 X10*3/uL (2.0-8.3); Neutrophils Percent Manual 59 % (45-73)
[2025-08-08 05:32] LABS: RBC Morphology NOTED
[2025-08-08 05:33] LABS: Large Platelet PRESENT; Microcytosis 1+ (5-14) /OIF
[2025-08-08 05:34] LABS: Acanthocytes 3+ (>5) /OIF; Burr Cells 3+ (>5) /OIF; Dohle Bodies PRESENT; Ovalocytes 1+ (5-14) /OIF; Polychromasia 1+ (0-2) /OIF; Schistocytes 1+ (0-2) /OIF; Target Cells 1+ (5-14) /OIF; Toxic Granulation PRESENT; Toxic Vacuolation PRESENT
[2025-08-08] MEDS: metroNIDAZOLE/NS 500 MG/100 ML PIGGYBACK 100 MG IV (05:53)
[2025-08-08 06:36] LABS: Venous Blood Gas Refer to POC result
[2025-08-08 06:40] LABS: Venous Blood Gas Refer to POC result
[2025-08-08] MEDS: 0.9 % Sodium Chloride Flush 3 ML SYRINGE IVFLUSH (07:47)
[2025-08-08] MEDS: Albuterol/Iprat 2.5/0.5MG 3 ML AMPUL.NEB INHALE ×2 (07:55→11:17)
--- NOTE | 2025-08-08 08:47 | PM.GIPN ---
Subjective Subjective Date of Service: 08/08/25 Interval History: remains intubated and sedated Critical Care Time (minutes): 30 Physical Exam Vital Signs: Vital Signs: Last Vital Signs Temp 97.3 F 08/08/25 08:00 Pulse 112 H 08/08/25 08:00 Resp 18 08/08/25 08:00 BP 121/58 L 08/08/25 08:00 Pulse Ox 90 L 08/08/25 08:00 O2 Del Method Mechanical Ventil ation 08/08/25 08:00 O2 Flow Rate 100 08/07/25 10:00 FiO2 100 08/08/25 08:00 Oxygen Flow Rate 15 08/05/25 20:54 BMI result Body Mass Index 31.6 GI: Other: abdomen remains soft edema is present Objective Data Labs 08/08/25 04:00 08/08/25 04:00 Labs: Laboratory Results - last 24 hr 08/04/25 08/06/25 08/07/25 14:19 10:44 09:14 WBC RBC Hgb Hct MCV MCH MCHC RDW Plt Count MPV Immature Gran % (Auto) Neut % (Auto) Lymph % (Auto) [place] % (Auto) Eos % (Auto) Baso % (Auto) Lymph # (Auto) [place] # (Auto) Eos # (Auto) Baso # (Auto) Abs Immat Gran (auto) Absolute Neuts (auto) Absolute Nucleated RBC Nucleated RBC % (auto) Neutrophils % (Manual) Band Neutrophils % Lymphocytes % (Manual) Monocytes % (Manual) Eosinophils % (Manual) Metamyelocytes % Abs Neuts (Manual) Lymphocytes # (Manual) Monocytes # (Manual) Metamyelocytes # Toxic Granulation Toxic Vacuolation Dohle Bodies Platelet Estimate Large Platelets Giant Platelets Plt Morphology Comment RBC Morphology Polychromasia Hypochromasia Microcytosis Target Cells Ovalocytes Finley Cells Acanthocytes (Spur) Schistocytes PT INR VBG pH 7.49 H VBG pCO2 37 VBG pO2 106 VBG HCO3 28 H VBG O2 Saturation 100.0 VBG Base Excess 5.4 Sodium Potassium Chloride Carbon Dioxide Anion Gap BUN Creatinine Estim Creat Clear Calc Estimated GFR POC Glucose Random Glucose Calcium Phosphorus Magnesium Total Bilirubin AST ALT Alkaline Phosphatase Total Protein Albumin Respiratory Panel Mohr See Note Adenovirus (Rapid PCR) Not Detected B.pert (TEM-PCR) Not Detected B.parapertussis DNA PCR Not Detected C. pneumoniae DNA (PCR) Not Detected Coronavirus OC43 (PCR) Not Detected Coronavirus HKU1 (PCR) Not Detected Coronavirus 229E (PCR) Not Detected Coronavirus NL63 (PCR) Not Detected Human Metapneumovir PCR Not Detected Influenza A (RT-PCR) Detected A Influenza A (H1) PCR Not Detected Influ A (H1/09) PCR Not Detected Influenza A (H3) PCR Not Detected Influenza B (RT-PCR) Not Detected M. pneumoniae (PCR) Not Detected Parainfluenza 1 (PCR) Not Detected Parainfluenza 2 (PCR) Not Detected Parainfluenza 3 (PCR) Not Detected Parainfluenza 4 (PCR) Not Detected RSV (PCR) Not Detected Entero/Rhino (PCR) Not Detected SARS-CoV-2 RNA (RT-PCR) Not Detected Blood Type A Positive Antibody Screen NEGATIVE Crossmatch See Detail 08/07/25 08/07/25 08/07/25 11:34 12:34 17:08 WBC 3.0 L RBC 2.59 L Hgb 7.2 L Hct 21.5 L MCV 83.0 MCH 27.8 MCHC 33.5 RDW 18.9 H Plt Count 20 L* MPV Not Reportable Immature Gran % (Auto) Neut % (Auto) Lymph % (Auto) [place] % (Auto) Eos % (Auto) Baso % (Auto) Lymph # (Auto) [place] # (Auto) Eos # (Auto) Baso # (Auto) Abs Immat Gran (auto) Absolute Neuts (auto) Absolute Nucleated RBC 0.000 Nucleated RBC % (auto) 0.0 Neutrophils % (Manual) Band Neutrophils % Lymphocytes % (Manual) Monocytes % (Manual) Eosinophils % (Manual) Metamyelocytes % Abs Neuts (Manual) Lymphocytes # (Manual) Monocytes # (Manual) Metamyelocytes # Toxic Granulation Toxic Vacuolation Dohle Bodies Platelet Estimate Large Platelets Giant Platelets Plt Morphology Comment RBC Morphology Polychromasia Hypochromasia Microcytosis Target Cells Ovalocytes Finley Cells Acanthocytes (Spur) Schistocytes PT INR VBG pH VBG pCO2 VBG pO2 VBG HCO3 VBG O2 Saturation VBG Base Excess Sodium 150 H Potassium 5.8 H Chloride 112 H Carbon Dioxide 24 Anion Gap 20 BUN 135 H Creatinine 3.82 H Estim Creat Clear Calc 13.9 Estimated GFR 11 POC Glucose 336 H 349 H Random Glucose 358 H* Calcium 8.0 L Phosphorus Magnesium Total Bilirubin 0.7 AST 77 H ALT 27 Alkaline Phosphatase 78 Total Protein 4.8 L Albumin 3.3 L Respiratory Panel Moh[place] Adenovirus (Rapid PCR) B.pert (TEM-PCR) B.parapertussis DNA PCR C. pneumoniae DNA (PCR) Coronavirus OC43 (PCR) Coronavirus HKU1 (PCR) Coronavirus 229E (PCR) Coronavirus NL63 (PCR) Human Metapneumovir PCR Influenza A (RT-PCR) Influenza A (H1) PCR Influ A (H1/09) PCR Influenza A (H3) PCR Influenza B (RT-PCR) M. pneumoniae (PCR) Parainfluenza 1 (PCR) Parainfluenza 2 (PCR) Parainfluenza 3 (PCR) Parainfluenza 4 (PCR) RSV (PCR) Entero/Rhino (PCR) SARS-CoV-2 RNA (RT-PCR) Blood Type Antibody Screen Crossmatch 08/07/25 08/07/25 08/07/25 19:19 20:32 20:36 WBC 3.3 L RBC 2.08 L Hgb 5.9 L* Hct 18.0 L* MCV 86.5 MCH 28.4 MCHC 32.8 RDW 19.2 H Plt Count 38 L D MPV Not Reportable Immature Gran % (Auto) Cancelled Neut % (Auto) Cancelled Lymph % (Auto) Cancelled [place] % (Auto) Cancelled Eos % (Auto) Cancelled Baso % (Auto) Cancelled Lymph # (Auto) Cancelled [place] # (Auto) Cancelled Eos # (Auto) Cancelled Baso # (Auto) Cancelled Abs Immat Gran (auto) Cancelled Absolute Neuts (auto) Cancelled Absolute Nucleated RBC 0.000 Nucleated RBC % (auto) 0.0 Neutrophils % (Manual) 65 Band Neutrophils % 20 H Lymphocytes % (Manual) 6 L Monocytes % (Manual) 4 Eosinophils % (Manual) Metamyelocytes % 5 Abs Neuts (Manual) 2.8 Lymphocytes # (Manual) 0.2 L Monocytes # (Manual) 0.1 Metamyelocytes # 0.2 Toxic Granulation PRESENT Toxic Vacuolation PRESENT Dohle Bodies PRESENT Platelet Estimate DECREASED Large Platelets PRESENT Giant Platelets PRESENT Plt Morphology Comment NOTED RBC Morphology NOTED Polychromasia 1+ (0-2) Hypochromasia 1+ (5-14) Microcytosis 1+ (5-14) Target Cells 1+ (5-14) Ovalocytes 1+ (5-14) Ruby Cells 3+ (>5) Acanthocytes (Spur) 2+ (3-5) Schistocytes 1+ (0-2) PT 20.6 H INR 1.7 H VBG pH 7.28 L VBG pCO2 56 VBG pO2 48 VBG HCO3 26 VBG O2 Saturation TNP VBG Base Excess 0.1 Sodium 147 H Potassium 5.6 H Chloride 106 Carbon Dioxide 23 Anion Gap 24 H BUN 111 H Creatinine 3.45 H Estim Creat Clear Calc 15.4 Estimated GFR 13 POC Glucose 302 H Random Glucose 319 H Calcium 7.5 L D Phosphorus 7.4 H Magnesium 2.2 Total Bilirubin 0.6 AST 89 H ALT 30 Alkaline Phosphatase 87 Total Protein 4.7 L Albumin 3.1 L Respiratory Panel [place] Adenovirus (Rapid PCR) B.pert (TEM-PCR) B.parapertussis DNA PCR C. pneumoniae DNA (PCR) Coronavirus OC43 (PCR) Coronavirus HKU1 (PCR) Coronavirus 229E (PCR) Coronavirus NL63 (PCR) Human Metapneumovir PCR Influenza A (RT-PCR) Influenza A (H1) PCR Influ A (H1/09) PCR Influenza A (H3) PCR Influenza B (RT-PCR) M. pneumoniae (PCR) Parainfluenza 1 (PCR) Parainfluenza 2 (PCR) Parainfluenza 3 (PCR) Parainfluenza 4 (PCR) RSV (PCR) Entero/Rhino (PCR) SARS-CoV-2 RNA (RT-PCR) Blood Type Antibody Screen Crossmatch 08/07/25 08/08/25 08/08/25 21:15 00:16 04:00 WBC 4.0 L RBC 2.59 L D Hgb 7.7 L D Hct 22.9 L D MCV 88.4 MCH 29.7 MCHC 33.6 RDW 18.4 H Plt Count 72 L D MPV 11.6 Immature Gran % (Auto) Cancelled Neut % (Auto) Cancelled Lymph % (Auto) Cancelled [place] % (Auto) Cancelled Eos % (Auto) Cancelled Baso % (Auto) Cancelled Lymph # (Auto) Cancelled [place] # (Auto) Cancelled Eos # (Auto) Cancelled Baso # (Auto) Cancelled Abs Immat Gran (auto) Cancelled Absolute Neuts (auto) Cancelled Absolute Nucleated RBC 0.020 H Nucleated RBC % (auto) 0.5 H Neutrophils % (Manual) 59 Band Neutrophils % 27 H Lymphocytes % (Manual) 6 L Monocytes % (Manual) 2 Eosinophils % (Manual) 1 Metamyelocytes % 5 Abs Neuts (Manual) 3.4 Lymphocytes # (Manual) 0.2 L Monocytes # (Manual) 0.1 Metamyelocytes # 0.2 Toxic Granulation PRESENT Toxic Vacuolation PRESENT Dohle Bodies PRESENT Platelet Estimate DECREASED Large Platelets PRESENT Giant Platelets Plt Morphology Comment NOTED RBC Morphology NOTED Polychromasia 1+ (0-2) Hypochromasia Microcytosis 1+ (5-14) Target Cells 1+ (5-14) Ovalocytes 1+ (5-14) Finley Cells 3+ (>5) Acanthocytes (Spur) 3+ (>5) Schistocytes 1+ (0-2) PT INR VBG pH VBG pCO2 VBG pO2 VBG HCO3 VBG O2 Saturation VBG Base Excess Sodium 145 Potassium 5.6 H Chloride 107 Carbon Dioxide 23 Anion Gap 21 H BUN 116 H Creatinine 3.81 H Estim Creat Clear Calc 13.9 Estimated GFR 12 POC Glucose 299 H Random Glucose 277 H Calcium 7.5 L Phosphorus 7.7 H Magnesium 2.1 Total Bilirubin 0.7 AST 171 H ALT 68 H Alkaline Phosphatase 98 Total Protein 4.9 L Albumin 3.0 L Respiratory Panel [place] Adenovirus (Rapid PCR) B.pert (TEM-PCR) B.parapertussis DNA PCR C. pneumoniae DNA (PCR) Coronavirus OC43 (PCR) Coronavirus HKU1 (PCR) Coronavirus 229E (PCR) Coronavirus NL63 (PCR) Human Metapneumovir PCR Influenza A (RT-PCR) Influenza A (H1) PCR Influ A (H1/09) PCR Influenza A (H3) PCR Influenza B (RT-PCR) M. pneumoniae (PCR) Parainfluenza 1 (PCR) Parainfluenza 2 (PCR) Parainfluenza 3 (PCR) Parainfluenza 4 (PCR) RSV (PCR) Entero/Rhino (PCR) SARS-CoV-2 RNA (RT-PCR) Blood Type A Positive Antibody Screen NEGATIVE Crossmatch See Detail 08/08/25 04:04 WBC RBC Hgb Hct MCV MCH MCHC RDW Plt Count MPV Immature Gran % (Auto) Neut % (Auto) Lymph % (Auto) [place] % (Auto) Eos % (Auto) Baso % (Auto) Lymph # (Auto) [place] # (Auto) Eos # (Auto) Baso # (Auto) Abs Immat Gran (auto) Absolute Neuts (auto) Absolute Nucleated RBC Nucleated RBC % (auto) Neutrophils % (Manual) Band Neutrophils % Lymphocytes % (Manual) Monocytes % (Manual) Eosinophils % (Manual) Metamyelocytes % Abs Neuts (Manual) Lymphocytes # (Manual) Monocytes # (Manual) Metamyelocytes # Toxic Granulation Toxic Vacuolation Dohle Bodies Platelet Estimate Large Platelets Giant Platelets Plt Morphology Comment RBC Morphology Polychromasia Hypochromasia Microcytosis Target Cells Ovalocytes Ruby Cells Acanthocytes (Spur) Schistocytes PT INR VBG pH 7.42 VBG pCO2 34 VBG pO2 53 VBG HCO3 23 VBG O2 Saturation 84.0 VBG Base Excess -0.8 Sodium Potassium Chloride Carbon Dioxide Anion Gap BUN Creatinine Estim Creat Clear Calc Estimated GFR POC Glucose Random Glucose Calcium Phosphorus Magnesium Total Bilirubin AST ALT Alkaline Phosphatase Total Protein Albumin Respiratory Panel [place] Adenovirus (Rapid PCR) B.pert (TEM-PCR) B.parapertussis DNA PCR C. pneumoniae DNA (PCR) Coronavirus OC43 (PCR) Coronavirus HKU1 (PCR) Coronavirus 229E (PCR) Coronavirus NL63 (PCR) Human Metapneumovir PCR Influenza A (RT-PCR) Influenza A (H1) PCR Influ A (H1/09) PCR Influenza A (H3) PCR Influenza B (RT-PCR) M. pneumoniae (PCR) Parainfluenza 1 (PCR) Parainfluenza 2 (PCR) Parainfluenza 3 (PCR) Parainfluenza 4 (PCR) RSV (PCR) Entero/Rhino (PCR) SARS-CoV-2 RNA (RT-PCR) Blood Type Antibody Screen Crossmatch Microbiology Microbiology Results: Microbiology 08/06/25 05:42 Sputum - Suctioned Gram Stain - Final 08/06/25 05:42 Sputum - Suctioned Sputum Culture - Preliminary Yeast Filamentous fungus 08/05/25 20:05 Blood - Venous Blood Culture - Preliminary No growth after 48 hours. 08/05/25 20:05 Blood - Venous Blood Culture - Preliminary No growth after 24 hours. 07/20/25 12:15 Blood - Venous Blood Culture - Final No growth after 5 days. 07/20/25 12:15 Blood - Venous Blood Culture - Final No growth after 5 days. Procedures Date of Service Date of Service: 08/08/25 Progress Note: A&P Assessment and plan (1) GI bleeding: Status: Acute Assessment and Plan: blood transfusion requirements noted platelets slightly better repeat egd discussed with daughter Rachana. she would prefer to avoid this at this time, given risks. continue supportive care. Time Spent With Patient Time: Total time managing care of this patient today ____ minutes. Quality Stroke Does the patient have a stroke diagnosis?: No VTE Prior VTE?: No VTE Risk Level:: Medical - moderate - high VTE Device Contraindication: N/A - Device Ordered VTE Drug Contraindication: N/A - Med Ordered
--- NOTE | 2025-08-08 08:52 | P.PNCC_ITS ---
Subjective Subjective Date of Service: 08/08/25 Interval History: cotninues to be critically ill on max vent support on levophed support couldnt tolerate dialysis yesterday Critical Care Time (minutes): 35 Physical Exam 2 Vital Signs: Vital Signs: Last Vital Signs Temp 97.3 F 08/08/25 08:00 Pulse 112 H 08/08/25 08:00 Resp 18 08/08/25 08:00 BP 121/58 L 08/08/25 08:00 Pulse Ox 90 L 08/08/25 08:00 O2 Del Method Mechanical Ventil ation 08/08/25 08:00 O2 Flow Rate 100 08/07/25 10:00 FiO2 100 08/08/25 08:00 Oxygen Flow Rate 15 08/05/25 20:54 BMI result Body Mass Index 31.6 Objective Data Labs 08/08/25 04:00 08/08/25 04:00 Labs: Laboratory Results - last 24 hr 08/04/25 08/06/25 08/07/25 14:19 10:44 09:14 WBC RBC Hgb Hct MCV MCH MCHC RDW Plt Count MPV Immature Gran % (Auto) Neut % (Auto) Lymph % (Auto) Treutlen % (Auto) Eos % (Auto) Baso % (Auto) Lymph # (Auto) Treutlen # (Auto) Eos # (Auto) Baso # (Auto) Abs Immat Gran (auto) Absolute Neuts (auto) Absolute Nucleated RBC Nucleated RBC % (auto) Neutrophils % (Manual) Band Neutrophils % Lymphocytes % (Manual) Monocytes % (Manual) Eosinophils % (Manual) Metamyelocytes % Abs Neuts (Manual) Lymphocytes # (Manual) Monocytes # (Manual) Metamyelocytes # Toxic Granulation Toxic Vacuolation Dohle Bodies Platelet Estimate Large Platelets Giant Platelets Plt Morphology Comment RBC Morphology Polychromasia Hypochromasia Microcytosis Target Cells Ovalocytes Ruby Cells Acanthocytes (Spur) Schistocytes PT INR VBG pH 7.49 H VBG pCO2 37 VBG pO2 106 VBG HCO3 28 H VBG O2 Saturation 100.0 VBG Base Excess 5.4 Sodium Potassium Chloride Carbon Dioxide Anion Gap BUN Creatinine Estim Creat Clear Calc Estimated GFR POC Glucose Random Glucose Calcium Phosphorus Magnesium Total Bilirubin AST ALT Alkaline Phosphatase Total Protein Albumin Respiratory Panel Mohr See Note Adenovirus (Rapid PCR) Not Detected B.pert (TEM-PCR) Not Detected B.parapertussis DNA PCR Not Detected C. pneumoniae DNA (PCR) Not Detected Coronavirus OC43 (PCR) Not Detected Coronavirus HKU1 (PCR) Not Detected Coronavirus 229E (PCR) Not Detected Coronavirus NL63 (PCR) Not Detected Human Metapneumovir PCR Not Detected Influenza A (RT-PCR) Detected A Influenza A (H1) PCR Not Detected Influ A (H1/09) PCR Not Detected Influenza A (H3) PCR Not Detected Influenza B (RT-PCR) Not Detected M. pneumoniae (PCR) Not Detected Parainfluenza 1 (PCR) Not Detected Parainfluenza 2 (PCR) Not Detected Parainfluenza 3 (PCR) Not Detected Parainfluenza 4 (PCR) Not Detected RSV (PCR) Not Detected Entero/Rhino (PCR) Not Detected SARS-CoV-2 RNA (RT-PCR) Not Detected Blood Type A Positive Antibody Screen NEGATIVE Crossmatch See Detail 08/07/25 08/07/25 08/07/25 11:34 12:34 17:08 WBC 3.0 L RBC 2.59 L Hgb 7.2 L Hct 21.5 L MCV 83.0 MCH 27.8 MCHC 33.5 RDW 18.9 H Plt Count 20 L* MPV Not Reportable Immature Gran % (Auto) Neut % (Auto) Lymph % (Auto) Treutlen % (Auto) Eos % (Auto) Baso % (Auto) Lymph # (Auto) Treutlen # (Auto) Eos # (Auto) Baso # (Auto) Abs Immat Gran (auto) Absolute Neuts (auto) Absolute Nucleated RBC 0.000 Nucleated RBC % (auto) 0.0 Neutrophils % (Manual) Band Neutrophils % Lymphocytes % (Manual) Monocytes % (Manual) Eosinophils % (Manual) Metamyelocytes % Abs Neuts (Manual) Lymphocytes # (Manual) Monocytes # (Manual) Metamyelocytes # Toxic Granulation Toxic Vacuolation Dohle Bodies Platelet Estimate Large Platelets Giant Platelets Plt Morphology Comment RBC Morphology Polychromasia Hypochromasia Microcytosis Target Cells Ovalocytes Ferney Cells Acanthocytes (Spur) Schistocytes PT INR VBG pH VBG pCO2 VBG pO2 VBG HCO3 VBG O2 Saturation VBG Base Excess Sodium 150 H Potassium 5.8 H Chloride 112 H Carbon Dioxide 24 Anion Gap 20 BUN 135 H Creatinine 3.82 H Estim Creat Clear Calc 13.9 Estimated GFR 11 POC Glucose 336 H 349 H Random Glucose 358 H* Calcium 8.0 L Phosphorus Magnesium Total Bilirubin 0.7 AST 77 H ALT 27 Alkaline Phosphatase 78 Total Protein 4.8 L Albumin 3.3 L Respiratory Panel Mohr Adenovirus (Rapid PCR) B.pert (TEM-PCR) B.parapertussis DNA PCR C. pneumoniae DNA (PCR) Coronavirus OC43 (PCR) Coronavirus HKU1 (PCR) Coronavirus 229E (PCR) Coronavirus NL63 (PCR) Human Metapneumovir PCR Influenza A (RT-PCR) Influenza A (H1) PCR Influ A (H1/09) PCR Influenza A (H3) PCR Influenza B (RT-PCR) M. pneumoniae (PCR) Parainfluenza 1 (PCR) Parainfluenza 2 (PCR) Parainfluenza 3 (PCR) Parainfluenza 4 (PCR) RSV (PCR) Entero/Rhino (PCR) SARS-CoV-2 RNA (RT-PCR) Blood Type Antibody Screen Crossmatch 08/07/25 08/07/25 08/07/25 19:19 20:32 20:36 WBC 3.3 L RBC 2.08 L Hgb 5.9 L* Hct 18.0 L* MCV 86.5 MCH 28.4 MCHC 32.8 RDW 19.2 H Plt Count 38 L D MPV Not Reportable Immature Gran % (Auto) Cancelled Neut % (Auto) Cancelled Lymph % (Auto) Cancelled Treutlen % (Auto) Cancelled Eos % (Auto) Cancelled Baso % (Auto) Cancelled Lymph # (Auto) Cancelled Treutlen # (Auto) Cancelled Eos # (Auto) Cancelled Baso # (Auto) Cancelled Abs Immat Gran (auto) Cancelled Absolute Neuts (auto) Cancelled Absolute Nucleated RBC 0.000 Nucleated RBC % (auto) 0.0 Neutrophils % (Manual) 65 Band Neutrophils % 20 H Lymphocytes % (Manual) 6 L Monocytes % (Manual) 4 Eosinophils % (Manual) Metamyelocytes % 5 Abs Neuts (Manual) 2.8 Lymphocytes # (Manual) 0.2 L Monocytes # (Manual) 0.1 Metamyelocytes # 0.2 Toxic Granulation PRESENT Toxic Vacuolation PRESENT Dohle Bodies PRESENT Platelet Estimate DECREASED Large Platelets PRESENT Giant Platelets PRESENT Plt Morphology Comment NOTED RBC Morphology NOTED Polychromasia 1+ (0-2) Hypochromasia 1+ (5-14) Microcytosis 1+ (5-14) Target Cells 1+ (5-14) Ovalocytes 1+ (5-14) Ruby Cells 3+ (>5) Acanthocytes (Spur) 2+ (3-5) Schistocytes 1+ (0-2) PT 20.6 H INR 1.7 H VBG pH 7.28 L VBG pCO2 56 VBG pO2 48 VBG HCO3 26 VBG O2 Saturation TNP VBG Base Excess 0.1 Sodium 147 H Potassium 5.6 H Chloride 106 Carbon Dioxide 23 Anion Gap 24 H BUN 111 H Creatinine 3.45 H Estim Creat Clear Calc 15.4 Estimated GFR 13 POC Glucose 302 H Random Glucose 319 H Calcium 7.5 L D Phosphorus 7.4 H Magnesium 2.2 Total Bilirubin 0.6 AST 89 H ALT 30 Alkaline Phosphatase 87 Total Protein 4.7 L Albumin 3.1 L Respiratory Panel Mohr Adenovirus (Rapid PCR) B.pert (TEM-PCR) B.parapertussis DNA PCR C. pneumoniae DNA (PCR) Coronavirus OC43 (PCR) Coronavirus HKU1 (PCR) Coronavirus 229E (PCR) Coronavirus NL63 (PCR) Human Metapneumovir PCR Influenza A (RT-PCR) Influenza A (H1) PCR Influ A (H1/09) PCR Influenza A (H3) PCR Influenza B (RT-PCR) M. pneumoniae (PCR) Parainfluenza 1 (PCR) Parainfluenza 2 (PCR) Parainfluenza 3 (PCR) Parainfluenza 4 (PCR) RSV (PCR) Entero/Rhino (PCR) SARS-CoV-2 RNA (RT-PCR) Blood Type Antibody Screen Crossmatch 08/07/25 08/08/25 08/08/25 21:15 00:16 04:00 WBC 4.0 L RBC 2.59 L D Hgb 7.7 L D Hct 22.9 L D MCV 88.4 MCH 29.7 MCHC 33.6 RDW 18.4 H Plt Count 72 L D MPV 11.6 Immature Gran % (Auto) Cancelled Neut % (Auto) Cancelled Lymph % (Auto) Cancelled Treutlen % (Auto) Cancelled Eos % (Auto) Cancelled Baso % (Auto) Cancelled Lymph # (Auto) Cancelled [place] # (Auto) Cancelled Eos # (Auto) Cancelled Baso # (Auto) Cancelled Abs Immat Gran (auto) Cancelled Absolute Neuts (auto) Cancelled Absolute Nucleated RBC 0.020 H Nucleated RBC % (auto) 0.5 H Neutrophils % (Manual) 59 Band Neutrophils % 27 H Lymphocytes % (Manual) 6 L Monocytes % (Manual) 2 Eosinophils % (Manual) 1 Metamyelocytes % 5 Abs Neuts (Manual) 3.4 Lymphocytes # (Manual) 0.2 L Monocytes # (Manual) 0.1 Metamyelocytes # 0.2 Toxic Granulation PRESENT Toxic Vacuolation PRESENT Dohle Bodies PRESENT Platelet Estimate DECREASED Large Platelets PRESENT Giant Platelets Plt Morphology Comment NOTED RBC Morphology NOTED Polychromasia 1+ (0-2) Hypochromasia Microcytosis 1+ (5-14) Target Cells 1+ (5-14) Ovalocytes 1+ (5-14) Ruby Cells 3+ (>5) Acanthocytes (Spur) 3+ (>5) Schistocytes 1+ (0-2) PT INR VBG pH VBG pCO2 VBG pO2 VBG HCO3 VBG O2 Saturation VBG Base Excess Sodium 145 Potassium 5.6 H Chloride 107 Carbon Dioxide 23 Anion Gap 21 H BUN 116 H Creatinine 3.81 H Estim Creat Clear Calc 13.9 Estimated GFR 12 POC Glucose 299 H Random Glucose 277 H Calcium 7.5 L Phosphorus 7.7 H Magnesium 2.1 Total Bilirubin 0.7 AST 171 H ALT 68 H Alkaline Phosphatase 98 Total Protein 4.9 L Albumin 3.0 L Respiratory Panel Mohr Adenovirus (Rapid PCR) B.pert (TEM-PCR) B.parapertussis DNA PCR C. pneumoniae DNA (PCR) Coronavirus OC43 (PCR) Coronavirus HKU1 (PCR) Coronavirus 229E (PCR) Coronavirus NL63 (PCR) Human Metapneumovir PCR Influenza A (RT-PCR) Influenza A (H1) PCR Influ A (H1/09) PCR Influenza A (H3) PCR Influenza B (RT-PCR) M. pneumoniae (PCR) Parainfluenza 1 (PCR) Parainfluenza 2 (PCR) Parainfluenza 3 (PCR) Parainfluenza 4 (PCR) RSV (PCR) Entero/Rhino (PCR) SARS-CoV-2 RNA (RT-PCR) Blood Type A Positive Antibody Screen NEGATIVE Crossmatch See Detail 08/08/25 04:04 WBC RBC Hgb Hct MCV MCH MCHC RDW Plt Count MPV Immature Gran % (Auto) Neut % (Auto) Lymph % (Auto) [place] % (Auto) Eos % (Auto) Baso % (Auto) Lymph # (Auto) [place] # (Auto) Eos # (Auto) Baso # (Auto) Abs Immat Gran (auto) Absolute Neuts (auto) Absolute Nucleated RBC Nucleated RBC % (auto) Neutrophils % (Manual) Band Neutrophils % Lymphocytes % (Manual) Monocytes % (Manual) Eosinophils % (Manual) Metamyelocytes % Abs Neuts (Manual) Lymphocytes # (Manual) Monocytes # (Manual) Metamyelocytes # Toxic Granulation Toxic Vacuolation Dohle Bodies Platelet Estimate Large Platelets Giant Platelets Plt Morphology Comment RBC Morphology Polychromasia Hypochromasia Microcytosis Target Cells Ovalocytes Ferney Cells Acanthocytes (Spur) Schistocytes PT INR VBG pH 7.42 VBG pCO2 34 VBG pO2 53 VBG HCO3 23 VBG O2 Saturation 84.0 VBG Base Excess -0.8 Sodium Potassium Chloride Carbon Dioxide Anion Gap BUN Creatinine Estim Creat Clear Calc Estimated GFR POC Glucose Random Glucose Calcium Phosphorus Magnesium Total Bilirubin AST ALT Alkaline Phosphatase Total Protein Albumin Respiratory Panel Mohr Adenovirus (Rapid PCR) B.pert (TEM-PCR) B.parapertussis DNA PCR C. pneumoniae DNA (PCR) Coronavirus OC43 (PCR) Coronavirus HKU1 (PCR) Coronavirus 229E (PCR) Coronavirus NL63 (PCR) Human Metapneumovir PCR Influenza A (RT-PCR) Influenza A (H1) PCR Influ A (H1/09) PCR Influenza A (H3) PCR Influenza B (RT-PCR) M. pneumoniae (PCR) Parainfluenza 1 (PCR) Parainfluenza 2 (PCR) Parainfluenza 3 (PCR) Parainfluenza 4 (PCR) RSV (PCR) Entero/Rhino (PCR) SARS-CoV-2 RNA (RT-PCR) Blood Type Antibody Screen Crossmatch Microbiology Microbiology Results: Microbiology 08/06/25 05:42 Sputum - Suctioned Gram Stain - Final 08/06/25 05:42 Sputum - Suctioned Sputum Culture - Preliminary Yeast Filamentous fungus 08/05/25 20:05 Blood - Venous Blood Culture - Preliminary No growth after 48 hours. 08/05/25 20:05 Blood - Venous Blood Culture - Preliminary No growth after 24 hours. 07/20/25 12:15 Blood - Venous Blood Culture - Final No growth after 5 days. 07/20/25 12:15 Blood - Venous Blood Culture - Final No growth after 5 days. Progress Note: A&P Assessment and plan (1) Hypertension: Status: Acute (2) CAD (coronary artery disease): Status: Acute (3) Paroxysmal atrial fibrillation: Status: Acute (4) Acute kidney injury superimposed on CKD: Status: Acute (5) Acute hypoxic respiratory failure: Status: Acute Plan 74-year-old female history of COPD, ALYSIA, obesity, coronary artery disease s/p stent, diastolic congestive heart failure, diabetes mellitus, paroxysmal atrial fibrillation (on Eliquis), lung CA s/p lobectomy in 2009, tracheal stenosis s/p tracheoplasty who presented to emergency department on 07/20/25 with worsening dyspnea admitted to hospital Medicine for hypoxic respiratory failure secondary to bibasilar pneumonia likely aspiration component more significantly on the right. Cultures negative to date. Abx coverage since admission piperacillin- tazobactam 07/30-08/02 to ampicillin-sulbactam 08/02 due to thrombocytopenia; and finally today levofloxacin + metronidazole 08/05. MRSA neg; d/c'ed vancomycin 07/30-07/08 Neuro: Acute encephalopathy possibly due to metabolic encephalopathy On propofol for sedation, on fentanyl drip for analgesia; Nimbex for paralytic. Close neurological status monitoring in the ICU every hour Cardiac: Cardiogenic shock: On Levophed 0.46 and vasopressin, we will titrate to keep the map above 65 mm Hg We will add stress dose hydrocortisone TTE done and repeated again showed EF 70%, some diastolic dysfunction, normal RV function NSTEMI: has history of CAD Status post stent placement Troponins increased to 7800 Cardiology recommended conservative management, not a candidate for anticoagulation due to ongoing GI bleed and thrombocytopenia Paroxysmal atrial fibrillation: carvedilol for rate control withheld On Eliquis 5 mg b.i.d. for anticoagulation held since 09/02/2025 Hypertension: On hydralazine 25 t.i.d., amlodipine 10 mg daily and carvedilol 12.5 b.i.d witheld Respiratory: Acute on chronic hypoxemic respiratory failure due to right lung pneumonia secondary to influenza A on top of underlying COPD. Patient had a repeat CT chest yesterday which showed increasing consolidation in the right lower lung when compared to CT on 08/02/2025 She had lobectomy in 2009 possibly on left side for lung nodule no chemo/radiation therapy, tracheomalacia s/p tracheoplasty in 2016. Currently on PRVC mode of ventilator FiO2 100 , peep 8 , TV:360 RR:20 Not a candidate for weaning trials due to very high vent settings Syukk-zdo-kqopa DuoNebs Solu-Medrol 60 mg daily, we will change to hydrocortisone stress dose given multiorgan failure GI: GI bleed: We will hold off on tube feeds for now Upper GI endoscopy done yesterday showed esophagitis and diffuse petechial hemorrhage possibly due to thrombocytopenia Continue Pantoprazole 40mg IV BID Renal: Acute kidney injury possibly secondary ATN secondary to sepsis and multiorgan failure Received for session of renal replacement therapy yesterday, limited due to hypotension during the dialysis could only to UF of about 200 cc We will repeat another session of dialysis today We will closely monitor I's and O's Avoid nephrotoxic medications Heme: Pancytopenia: Hemoglobin 8.3, platelets 27 K; received 5 PRBC, 2 FFP and 3 unit platelet; 2 PRBC overnight Platelet count remains stable or slightly better this morning Possibly medication induced versus sepsis induced Antibiotics switched from Zosyn to levofloxacin and Flagyl Endocrine: Blood sugars under control on lantus 28U and Sliding scale insulin Infectious disease: Cultures remain negative so far Antibiotics switched to levofloxacin and Flagyl given pancytopenia Continue oseltamavir for influenza pneumonia Musculoskeletal: Decubitus ulcer prevention protocol Lines: Right IJ triple lumen dialysis catheter Prophylaxis: SCD, pantoprazole Patient is critically ill with multiorgan failures including acute respiratory failure on maximum support, acute renal failure, transaminitis, acute encephalopathy. Critical care time spent is about 60 minutes on ventilator management, sedation management, paralytic management, changing ventilator settings, close hemodynamic monitoring, vasopressor management, managing the patient on renal replacement therapy and adjusting vasopressors to keep her hemodynamically stable at this time is excluding any procedural time Quality Stroke Does the patient have a stroke diagnosis?: No VTE Prior VTE?: No VTE Risk Level:: Medical - moderate - high VTE Device Contraindication: N/A - Device Ordered VTE Drug Contraindication: N/A - Med Ordered
[2025-08-08] MEDS: Vasopressin 20 UNIT/100 ML INFUS..BTL 6 UNIT IVCONT (09:09)
[2025-08-08] MEDS: Chlorhexidine Gluc Oral Rinse 15 ML MOUTHWASH BUCCAL (09:11)
[2025-08-08] MEDS: Norepinephrine Bitartrate/NS 16 MG/250 ML PLAST..BAG 40.54 MG IVCONT (09:16)
--- NOTE | 2025-08-08 10:09 | MHC.CLN ---
F/U PT REMAINS INTUBATED AND SEDATED PT WITH INCREASED NUTRITION RISK R/T PRESSURE INJURY DAY 3 NPO FAMILY CHANGED PT STATUS TO DNR CONSULT RD IF ALTERNATIVE NUTRITION NEEDED FOLLOWING WITH TEAM
[2025-08-08] MEDS: Calcium Gluconate/NaCl,Iso-Osm 2 GM/100 ML PLAST..BAG IV (10:13)
[2025-08-08] MEDS: Hydrocortisone Sod Succ/PF 100 MG VIAL IVPUSH (10:14)
--- NOTE | 2025-08-08 11:17 | PC.NURSE ---
Patient in dialysis. Blood pressure dropped precipitously with beginning dialysis treatment. Titrated levophed per MD verbal and started additional pressors per MD.
[2025-08-08 11:31] LABS: Glucose, Whole Blood 212 mg/dL (60-115)
--- NOTE | 2025-08-08 11:54 | P.DN_ITS ---
Discharge Sum: Prov Provider Primary care physician: Garland Vázquez MD Consults: 07/20/25 14:45 Consult to Pulmonology Routine Consulting Provider: [facility] Reason for consultation: pneumonia -multifocal 07/21/25 03:26 Consult to Wound Care Routine Consulting Provider: [facility] Reason for consultation: redness to buttock, nonblanchable. Has provider been notified: Yes 08/04/25 08:44 Consult to Cardiology Routine Consulting Provider: [facility] Reason for consultation: hypoxia/CHF 08/05/25 13:11 Consult to Hematology / Oncology Routine Consulting Provider: [facility] [place] [facility] Reason for consultation: thrombocytopenia 08/05/25 14:39 Consult to Infectious Diseases Routine Consulting Provider: [facility] Reason for consultation: nonresolving pneumonia 08/07/25 00:19 Consult to Gastroenterology Routine Consulting Provider: [facility] Reason for consultation: GIB 08/07/25 09:15 Consult to Cardiology Routine Consulting Provider: [facility] Reason for consultation: NSTEMI Has provider been notified: Yes Discharge Sum: Diag Contributing Factors (1) Hypertension: (2) CAD (coronary artery disease): (3) Paroxysmal atrial fibrillation: (4) Acute kidney injury superimposed on CKD: (5) Acute hypoxic respiratory failure: Discharge Sum: Summary Date and Time Date of admission: 07/21/25 09:30 Date of : 08/08/25 Time of : 11:52 Summary Details: 74-year-old female history of COPD, ALYSIA, obesity, coronary artery disease s/p stent, diastolic congestive heart failure, diabetes mellitus, paroxysmal atrial fibrillation (on Eliquis), lung CA s/p lobectomy in 2009, tracheal stenosis s/p tracheoplasty who presented to emergency department on 07/20/25 with worsening dyspnea admitted to hospital Medicine for hypoxic respiratory failure secondary to bibasilar pneumonia likely aspiration component more significantly on the right. Cultures negative to date. Abx coverage since admission piperacillin- tazobactam 07/30-08/02 to ampicillin-sulbactam 08/02 due to thrombocytopenia; and finally today levofloxacin + metronidazole 08/05. Her respiratory status continued to worsen she was transferred back to ICU initially placed on BiPAP later electively intubated on 08/06/2025. Patient had significant tracheal stenosis with stenting upper trachea, she was a very difficult intubation with 5.5 sized ET tube in place. Post intubation patient remained on high ventilator settings, went into multiple organ failure including septic shock needing vasopressor support, anuric AG needing renal replacement therapy, transaminitis, acute encephalopathy. She was initiated on renal replacement th erapy last night but could tolerate only for some time so had to be stopped. This morning she still remained on 100% FiO2 on the ventilator with her sats staying in high 80s, on 2 vasopressor support, while initiated on renal replacement therapy she went into VFib and later V-tach, she was given 300 mg of amiodarone, 80 mg of lidocaine but she went into asystole around 11:52AM. Patient could not have been transferred for outside facility given she was a very high-risk intubation with 5.5 size ET tube and she was satting in the high 80s despite 100% FiO2 since yesterday morning. Additional Data Confirmation of as documented by pronouncing clinician: no pulse, no respirations, no heart sounds and pupils fixed and dilated Family: contacted Attending/PCP notified?: Yes Attending physician: Reggie Smallwood MD Was code activated?: No Autopsy requested?: No sample examiner notified?: No Organ bank notified?: No Advance directives: No Hospice patient?: No
--- NOTE | 2025-08-08 12:09 | PC.RT ---
RT called to bedside, pt noted in abnormal rhythm, bradycardic and unable to pbtain a spo2. RT began manual ventilation via ambu bag to ett @ 15 lpm and a peep of 8cm. Splitter Tender at bedside, nursin and code cart in room.
--- NOTE | 2025-08-08 13:58 | PC.NURSE ---
Addendum entered by Taras Moura RN 08/08/25 14:09: Continued: 11:43 V-fib (no pulse, no BP obtainable, no O2 obtainable, no capnography obtainable) -Per MD another 150mg/3ml Amiodarone push given -RT bagging -This RN recording -Additional RN Pushing MED -CCT on doppler 11:44 Vfib -80mg/4ml lidocaine IVP (from code cart 100mg/5ml Leur-Jet) -MD brought ultrasound to the bedside -Pacer pads placed, however patient converted to A-systole before hooking up zoll. 11:45 Asystole (no pulse -- no BP obtainable -- no O2 obtanable -- no capnography obtainable) -no new orders -MD operating ultrasound of heart at bedside, took 7 minutes to power on 11:52 Per MD: No Muscle Activity Visualized via Ultrasound (no pulse -- no BP obtainable -- no O2 obtanable -- no capnography obtainable) -time of called Original Note: 11:40 CCT notified RN of a long telemetry pause followed by spontaneous and severe bradycardia. -RN to the bedside, found pulseless electrical activity PEA. Patient is a DNR. -RT to the bedside, began mechanically bagging patient. -Additional ICU RNs to the bedside to assist. -Critical Beef Lugger to the bedside to and this RN further assessed for pulse via doppler. 11:41 approximately 5 seconds of Torsades/Vtach seen on tele. -Pacer pads placed however PEA resumed -MD to the bedside, stated give 150mg/3ml Amiodarone from the code cart 11:42 PEA -- BP 33/14 -- no O2 saturation obtainable-- no end tidal obtainable. -Nimbex titrated off per MD verbal order. 11:42
== END 2025-08-08 15:20 | disposition expired | DRG 208 ==
LOC: HO.ED 14:27 → HO.EDOVER 14:46 → HO.IMC 19:03 → HO.ICU 08-05 19:09
PROVIDERS: Family Medicine; Hospitalist; Internal Medicine; Internal Medicine Gastroenterology; Internal Medicine Medical Oncology; Internal Medicine Pulmonary Disease; Physician Assistant; Physician Assistant Medical; Registered Nurse Community Health; Student in an Organized Health Care Education/Training Program; Admitting Provider Internal Medicine; Emergency Provider Emergency Medicine; PCP Internal Medicine; Visit Provider Internal Medicine Critical Care Medicine
PROC: 0DJ08ZZ Inspection of Upper Intestinal Tract, Via Natural or Artificial Opening Endoscopic (ICD-10-PCS; principal; 2025-08-07 11:40)
DX: J69.0 Pneumonitis due to inhalation of food and vomit (principal); I21.4 Non-ST elevation (NSTEMI) myocardial infarction; I50.33 Acute on chronic diastolic (congestive) heart failure; J96.21 Acute and chronic respiratory failure with hypoxia; J96.22 Acute and chronic respiratory failure with hypercapnia; K29.71 Gastritis, unspecified, with bleeding; K22.11 Ulcer of esophagus with bleeding; N17.0 Acute kidney failure with tubular necrosis; E87.21 Acute metabolic acidosis; J44.1 Chronic obstructive pulmonary disease with (acute) exacerbation; I13.0 Hypertensive heart and chronic kidney disease with heart failure and stage 1 through stage 4 chronic kidney disease, or unspecified chronic kidney disease; E87.0 Hyperosmolality and hypernatremia; D61.818 Other pancytopenia; L89.156 Pressure-induced deep tissue damage of sacral region; E11.65 Type 2 diabetes mellitus with hyperglycemia; E11.22 Type 2 diabetes mellitus with diabetic chronic kidney disease; I25.10 Atherosclerotic heart disease of native coronary artery without angina pectoris; K59.00 Constipation, unspecified; I48.0 Paroxysmal atrial fibrillation; D50.9 Iron deficiency anemia, unspecified; G47.33 Obstructive sleep apnea (adult) (pediatric); E66.01 Morbid (severe) obesity due to excess calories; N18.30 Chronic kidney disease, stage 3 unspecified; Z68.34 Body mass index [BMI] 34.0-34.9, adult; Z71.3 Dietary counseling and surveillance; E87.6 Hypokalemia; D69.59 Other secondary thrombocytopenia; T36.0X5A Adverse effect of penicillins, initial encounter; I35.0 Nonrheumatic aortic (valve) stenosis; E11.51 Type 2 diabetes mellitus with diabetic peripheral angiopathy without gangrene; R57.0 Cardiogenic shock; J10.01 Influenza due to other identified influenza virus with the same other identified influenza virus pneumonia; I70.213 Atherosclerosis of native arteries of extremities with intermittent claudication, bilateral legs; Z66 Do not resuscitate; I95.3 Hypotension of hemodialysis; Z20.822 Contact with and (suspected) exposure to COVID-19; Z86.711 Personal history of pulmonary embolism; Z95.5 Presence of coronary angioplasty implant and graft; Z91.119 Patient's noncompliance with dietary regimen due to unspecified reason; Z87.891 Personal history of nicotine dependence; Z79.4 Long term (current) use of insulin; Z79.01 Long term (current) use of anticoagulants; Z79.85 Long-term (current) use of injectable non-insulin antidiabetic drugs; Z79.899 Other long term (current) drug therapy
CPT/HCPCS: 36415; 36600; 71045; 71250; 74018; 74176; 80048; 80053; 80076; 80202; 81003; 82272; 82803; 82947; 83605; 83615; 83690; 83735; 83880; 84100; 84145; 84484; 85007; 85025; 85027; 85045; 85379; 85384; 85610; 85652; 85730; 86140; 86850; 86880; 86900; 86901; 86923; 87040; 87070; 87077; 87107; 87205; 87449; 87633; 87640; 87641; 87899; 90999; 92526; 92610; 93005; 93306; 93308; 94002; 94003; 94640; 94660; 94799; 97116; 97162; 97530; 99285; J0131; J0168; J0282; J0295; J0330; J0360; J0613; J0696; J1271; J1720; J1836; J1938; J1956; J2003; J2250; J2270; J2405; J2470; J2543; J2598; J2704; J2919; J3010; J3373; J3374; J3475; J3480; P9016; P9017; P9047; P9073; Q9957

== ENCOUNTER → 2025-07-20 11:22 | Outpatient (BNV) | payer MEDICARE, SELFPAY | PROVIDERS: Emergency Provider Emergency Medicine; PCP Internal Medicine; Visit Provider Radiology Diagnostic Radiology | DX: I25.10 Atherosclerotic heart disease of native coronary artery without angina pectoris (principal); K57.30 Diverticulosis of large intestine without perforation or abscess without bleeding; J84.9 Interstitial pulmonary disease, unspecified; J90 Pleural effusion, not elsewhere classified | CPT/HCPCS: 71045; 71250 ==

== ENCOUNTER → 2025-07-20 11:52 | Outpatient (BNV) | payer MEDICARE, SELFPAY | PROVIDERS: Admitting Provider Internal Medicine; Emergency Provider Emergency Medicine; PCP Internal Medicine; Visit Provider Internal Medicine Cardiovascular Disease | DX: R94.31 Abnormal electrocardiogram [ECG] [EKG] (principal); R06.02 Shortness of breath | CPT/HCPCS: 93010 ==

== ENCOUNTER → 2025-07-20 14:41 | Outpatient (BNV) | payer MEDICARE, SELFPAY | PROVIDERS: Admitting Provider Internal Medicine; Emergency Provider Emergency Medicine; PCP Internal Medicine; Visit Provider Internal Medicine | DX: J69.0 Pneumonitis due to inhalation of food and vomit (principal); J44.89 Other specified chronic obstructive pulmonary disease | CPT/HCPCS: 99222; 99232; 99233 ==

== ENCOUNTER 2025-07-21 09:30 | Outpatient (BNV) | payer MEDICARE, SELFPAY | END 2025-07-22 18:05 | PROVIDERS: Admitting Provider Internal Medicine; Emergency Provider Emergency Medicine; PCP Internal Medicine; Visit Provider Radiology Diagnostic Radiology | DX: R10.9 Unspecified abdominal pain (principal); J90 Pleural effusion, not elsewhere classified; K56.41 Fecal impaction | CPT/HCPCS: 74018 ==

== ENCOUNTER 2025-07-21 09:30 | Outpatient (BNV) | payer MEDICARE, SELFPAY | END 2025-08-06 15:43 | PROVIDERS: Admitting Provider Internal Medicine; Emergency Provider Emergency Medicine; PCP Internal Medicine; Visit Provider Radiology Diagnostic Radiology | DX: J18.9 Pneumonia, unspecified organism (principal); J90 Pleural effusion, not elsewhere classified | CPT/HCPCS: 71045 ==

== ENCOUNTER 2025-07-21 09:30 | Outpatient (BNV) | payer MEDICARE, SELFPAY | END 2025-08-04 08:28 | PROVIDERS: Admitting Provider Internal Medicine; Emergency Provider Emergency Medicine; PCP Internal Medicine; Visit Provider Radiology Diagnostic Radiology | DX: J94.8 Other specified pleural conditions (principal) | CPT/HCPCS: 71045 ==

== ENCOUNTER 2025-07-21 09:30 | Outpatient (BNV) | payer MEDICARE, SELFPAY | END 2025-08-01 10:00 | PROVIDERS: Admitting Provider Internal Medicine; Emergency Provider Emergency Medicine; PCP Internal Medicine; Visit Provider Radiology Body Imaging | DX: R06.02 Shortness of breath (principal) | CPT/HCPCS: 71045 ==

== ENCOUNTER 2025-07-21 09:30 | Outpatient (BNV) | payer MEDICARE, SELFPAY | END 2025-08-05 10:31 | PROVIDERS: Admitting Provider Internal Medicine; Emergency Provider Emergency Medicine; PCP Internal Medicine; Visit Provider Radiology Diagnostic Radiology | DX: J18.9 Pneumonia, unspecified organism (principal); R91.8 Other nonspecific abnormal finding of lung field | CPT/HCPCS: 71250 ==

== ENCOUNTER 2025-07-21 09:30 | Outpatient (BNV) | payer MEDICARE, SELFPAY | END 2025-08-02 09:46 | PROVIDERS: Admitting Provider Internal Medicine; Emergency Provider Emergency Medicine; PCP Internal Medicine; Visit Provider Radiology Diagnostic Radiology | DX: R91.8 Other nonspecific abnormal finding of lung field (principal) | CPT/HCPCS: 71250 ==

== ENCOUNTER 2025-07-21 09:30 | Outpatient (BNV) | payer MEDICARE, SELFPAY | END 2025-07-29 10:25 | PROVIDERS: Admitting Provider Internal Medicine; Emergency Provider Emergency Medicine; PCP Internal Medicine; Visit Provider Radiology Vascular & Interventional Radiology | DX: R06.02 Shortness of breath (principal) | CPT/HCPCS: 71045 ==

== ENCOUNTER 2025-07-21 09:30 | Outpatient (BNV) | payer MEDICARE, SELFPAY | END 2025-07-23 23:40 | PROVIDERS: Admitting Provider Internal Medicine; Emergency Provider Emergency Medicine; PCP Internal Medicine; Visit Provider Radiology Diagnostic Radiology | DX: J81.1 Chronic pulmonary edema (principal); J90 Pleural effusion, not elsewhere classified | CPT/HCPCS: 71045 ==

== ENCOUNTER 2025-07-21 09:30 | Outpatient (BNV) | payer MEDICARE, SELFPAY | END 2025-07-24 14:17 | PROVIDERS: Admitting Provider Internal Medicine; Emergency Provider Emergency Medicine; PCP Internal Medicine; Visit Provider Radiology Diagnostic Radiology | DX: R91.8 Other nonspecific abnormal finding of lung field (principal); J90 Pleural effusion, not elsewhere classified; R06.02 Shortness of breath | CPT/HCPCS: 71045; 74176 ==

== ENCOUNTER 2025-07-21 09:30 | Outpatient (BNV) | payer MEDICARE, SELFPAY | END 2025-08-07 11:43 | PROVIDERS: Admitting Provider Internal Medicine; Emergency Provider Emergency Medicine; PCP Internal Medicine; Visit Provider Radiology Diagnostic Radiology | DX: Z46.59 Encounter for fitting and adjustment of other gastrointestinal appliance and device (principal); J90 Pleural effusion, not elsewhere classified; R91.8 Other nonspecific abnormal finding of lung field | CPT/HCPCS: 71045; 74018 ==

== ENCOUNTER 2025-07-21 09:30 | Outpatient (BNV) | payer MEDICARE, SELFPAY | END 2025-08-03 00:22 | PROVIDERS: Admitting Provider Internal Medicine; Emergency Provider Emergency Medicine; PCP Internal Medicine; Visit Provider Radiology Diagnostic Radiology | DX: R06.02 Shortness of breath (principal); R06.2 Wheezing | CPT/HCPCS: 71045 ==

== ENCOUNTER 2025-07-21 09:30 | Outpatient (BNV) | payer MEDICARE, SELFPAY | END 2025-08-07 16:00 | PROVIDERS: Admitting Provider Internal Medicine; Emergency Provider Emergency Medicine; PCP Internal Medicine; Visit Provider Internal Medicine | DX: I51.89 Other ill-defined heart diseases (principal); I51.7 Cardiomegaly; R00.0 Tachycardia, unspecified | CPT/HCPCS: 93010; 93308 ==

== ENCOUNTER 2025-07-21 09:30 | Outpatient (BNV) | payer MEDICARE, SELFPAY | END 2025-07-30 07:00 | PROVIDERS: Admitting Provider Internal Medicine; Emergency Provider Emergency Medicine; PCP Internal Medicine; Visit Provider Internal Medicine Cardiovascular Disease | DX: I42.2 Other hypertrophic cardiomyopathy (principal); I35.0 Nonrheumatic aortic (valve) stenosis; I51.89 Other ill-defined heart diseases; I51.7 Cardiomegaly | CPT/HCPCS: 93306 ==

== ENCOUNTER 2025-07-21 09:30 | Outpatient (BNV) | payer MEDICARE, SELFPAY | END 2025-08-05 18:58 | PROVIDERS: Admitting Provider Internal Medicine; Emergency Provider Emergency Medicine; PCP Internal Medicine; Visit Provider Internal Medicine | DX: R94.31 Abnormal electrocardiogram [ECG] [EKG] (principal) | CPT/HCPCS: 93010 ==

== ENCOUNTER → 2025-07-21 09:30 | Outpatient (BNV) | payer MEDICARE, SELFPAY | PROVIDERS: Admitting Provider Internal Medicine; Emergency Provider Emergency Medicine; PCP Internal Medicine; Visit Provider Registered Nurse Community Health | DX: N17.9 Acute kidney failure, unspecified (principal); N18.9 Chronic kidney disease, unspecified; J69.0 Pneumonitis due to inhalation of food and vomit; J44.9 Chronic obstructive pulmonary disease, unspecified; G93.40 Encephalopathy, unspecified | CPT/HCPCS: 31500; 99238; 99291 ==

== ENCOUNTER → 2025-07-21 09:30 | Outpatient (BNV) | payer MEDICARE, SELFPAY | PROVIDERS: Admitting Provider Internal Medicine; Emergency Provider Emergency Medicine; PCP Internal Medicine; Visit Provider Internal Medicine Cardiovascular Disease | DX: I21.4 Non-ST elevation (NSTEMI) myocardial infarction (principal) | CPT/HCPCS: 99232; 99233 ==

== ENCOUNTER → 2025-07-21 09:30 | Outpatient (BNV) | payer MEDICARE, SELFPAY | PROVIDERS: Admitting Provider Internal Medicine; Emergency Provider Emergency Medicine; PCP Internal Medicine; Visit Provider Internal Medicine Medical Oncology | DX: D61.818 Other pancytopenia (principal); R91.8 Other nonspecific abnormal finding of lung field | CPT/HCPCS: 99222 ==

== ENCOUNTER → 2025-07-21 09:30 | Outpatient (BNV) | payer MEDICARE, SELFPAY | PROVIDERS: Admitting Provider Internal Medicine; Emergency Provider Emergency Medicine; PCP Internal Medicine; Visit Provider Internal Medicine | DX: I95.9 Hypotension, unspecified (principal); R91.8 Other nonspecific abnormal finding of lung field | CPT/HCPCS: 99222 ==

== ENCOUNTER → 2025-07-21 09:30 | Outpatient (BNV) | payer MEDICARE, SELFPAY | PROVIDERS: Admitting Provider Internal Medicine; Emergency Provider Emergency Medicine; PCP Internal Medicine; Visit Provider Hospitalist | DX: J44.1 Chronic obstructive pulmonary disease with (acute) exacerbation (principal); J45.901 Unspecified asthma with (acute) exacerbation; R91.1 Solitary pulmonary nodule; G47.33 Obstructive sleep apnea (adult) (pediatric); R09.02 Hypoxemia | CPT/HCPCS: 99223 ==